=== PATIENT | female | born 1990 | race Caucasian/White ===

== ENCOUNTER 2022-12-12 20:44 | Outpatient (REF) | payer OTHER, SELFPAY ==
[2022-12-19 16:09] LABS: Age Gdln ACOG Testing Note (.); HPV Aptima Negative (Negative); IGP, Aptima HPV, rfx 16/18,45 Note (.)
== END 2022-12-12 20:45 | disposition home or self-care (01) ==
LOC: LAB 20:44
PROVIDERS: PCP Family Medicine; Visit Provider Obstetrics & Gynecology
DX: Z12.4 Encounter for screening for malignant neoplasm of cervix (principal)
CPT/HCPCS: 87624; G0145

== ENCOUNTER 2023-01-23 07:07 | Outpatient (OUT) | payer OTHER, SELFPAY ==
--- NOTE | 2023-01-23 07:54 | CA_ITS ---
Patient: JAVID TRIPLETT Exam Date: 01/23/2023 : 1990 Gender:F Ordering : EMEKA HERNANDEZ Admission #: [id number] Family : Order #: [id number] CLICK HERE TO VIEW EXAM ECHOCARDIOGRAM REPORT PROCEDURE: CA ECHO DOPPLER COMPLETE INDICATIONS: Neurocardiogenic syncope COMPARISON: None. DESCRIPTION: COMPLETE ECHOCARDIOGRAM Real-time transthoracic echocardiography with 2D, M-mode, spectral and color flow Doppler performed. QUALITY: Technical quality was good. LEFT VENTRICLE: Normal chamber size. No left ventricular hypertrophy. Global left ventricular systolic function is normal. LV EF: Estimated left ventricular ejection fraction is 60-65% DIASTOLIC: Normal diastolic function. ATRIAL SEPTUM: LEFT ATRIUM: Normal chamber size. RIGHT ATRIUM: Normal chamber size. RIGHT VENTRICLE: Normal chamber size. Normal right ventricular systolic function. TRICUSPID VALVE: Normal mobility and thickness. No stenosis with trivial regurgitation. Unable to assess right-sided pressures due to lack of measurable tricuspid regurgitation. MITRAL VALVE: Normal mobility and thickness. No evidence of mitral valve stenosis. There is no mitral annular calcification. Trivial mitral regurgitation. AORTIC VALVE: Normal trileaflet appearance. No visible sclerosis. Normal leaflet mobility. No evidence of aortic valve stenosis. No aortic regurgitation. AORTIC ROOT: Normal diameter and appearance. PULMONIC VALVE: Normal thickness and mobility. No stenosis. Trivial regurgitation. PERICARDIUM: No evidence of pericardial effusion. IVC: Collapses with inspirations. Normal size. PLEURA: CONCLUSION: 1. Normal left ventricular size and systolic function. LVEF is 60 to 65%. 2. Normal right ventricular size and systolic function. 3. No significant valvular dysfunction. 4. No pericardial effusion. Adult Echocardiography Procedure Report Left Ventricle LVEDD (3.7 - 5.6 cm): 4.28 cm LVESD (2.2 - 4.0 cm): 2.63 cm LVIVS thickness (0.6 - 1.2 cm): 1.03 cm LVPW thickness (0.5 - 1.0 cm): 1.09 cm e': 0.15 m/s E - e': 4.40 LVOT Max Gradient: 2.98 mm[Hg], 2.57 mm[Hg] LVOT Area (cm2): 0.83 m/s Peak Velocity (LVOT): 0.86 m/s, 0.80 m/s Mean Velocity (LVOT): 0.58 m/s LVOT Diameter 1.99 cm Left Ventricular Ejection Fraction: 64.31 % Left Atrium LA Volume Index (2D A2C): 22.22 ml/m2 Left Atrium Systolic Dimension: 3.81 cm Mitral Valve MV E to A Ratio: 1.33, 1.52 Mitral Valve A-Wave Peak Velocity: 0.47 m/s Mitral Valve E-Wave Peak Velocity: 0.67 m/s Right Ventricle RV Internal Diastolic Dimension: 3.80 cm Aorta AO Root Diam: 2.62 cm Ascending Ao Diam: 2.46 cm Aortic Valve AoV Area (Peak Naresh): 2.13 cm2, 2.21 cm2 AoV Area (VTI): 2.45 cm2, 2.34 cm2 Peak Velocity(Antegrade Flow): 1.21 m/s Peak Gradient(Antegrade Flow): 5.83 mm[Hg] Mean Velocity(Antegrade Flow): 0.80 m/s Mean Gradient(Antegrade Flow): 2.82 mm[Hg] Velocity Time Integral: 24.37 cm Tricuspid Valve Peak Velocity (Regurgitant Flow): 2.47 m/s, 2.05 m/s Pulmonic Valve Mean Gradient: 2.08 mm[Hg], 2.55 mm[Hg], 2.34 mm[Hg] Mean Velocity: 0.67 m/s, 0.77 m/s, 0.71 m/s Peak Velocity: 1.02 m/s Peak Gradient: 3.87 mm[Hg], 4.13 mm[Hg], 4.39 mm[Hg] Right Atrium Right Atrium Systolic Pressure: 65.10 ml, 65.10 ml Dictated by: Gwyn Agudelo M.D. on 01/23/2023 at 12:42 Approved by: Gwyn Agudelo M.D. on 01/23/2023 at 12:45
== END 2023-01-23 07:08 | disposition home or self-care (01) ==
LOC: CARD 07:09
PROVIDERS: PCP Family Medicine; Visit Provider Nurse Practitioner
DX: R55 Syncope and collapse (principal)
CPT/HCPCS: 93306

== ENCOUNTER 2023-05-29 09:40 | Outpatient (OUT) | payer BC, SELFPAY ==
[2023-05-29 10:39] LABS: Basophils Absolute Auto 0.1 10^3/uL (0.0-0.1); Basophils Percent Auto 0.8 % (0.2-2.0); Eosinophils Absolute Auto 0.2 10^3/uL (0.0-0.7); Eosinophils Percent Auto 3.7 % (0.9-7.0); Hematocrit 42.6 % (36.0-48.0); Hemoglobin 13.7 g/dL (12.0-16.0); Immature Granulocytes Abs Auto 0.01 10^3/uL (0.00-0.03); Immature Granulocytes Pct Auto 0.2 % (0.0-0.5); Lymphocytes Absolute Auto 2.4 10^3/uL (1.2-3.8); Lymphocytes Percent Auto 37.5 % (20.5-60.0); Mean Corpuscular HGB Conc 32.2 g/dL (29.9-35.2); Mean Corpuscular Hemoglobin 27.3 pg (26.7-34.0); Mean Corpuscular Volume 84.9 fL (81.0-99.0); Mean Platelet Volume 9.8 fL (9.5-13.5); Monocytes Absolute Auto 0.3 10^3/uL (0.3-0.8); Monocytes Percent Auto 5.3 % (1.7-12.0); Neutrophils Absolute Auto 3.4 10^3/uL (1.4-6.5); Neutrophils Percent Auto 52.5 % (43.0-75.0); Platelet Count 451 10^3/uL (150-450); Red Blood Count 5.02 10^6/uL (4.20-5.40); Red Cell Distribution Width 13.4 % (11.0-15.0); White Blood Count 6.4 10^3/uL (4.0-11.0)
[2023-05-29 12:04] LABS: Alanine Aminotransferase 39 U/L (14-59); Albumin Globulin Ratio 0.9; Albumin Level 3.7 g/dL (3.4-5.0); Alkaline Phosphatase 90 U/L (46-116); Anion Gap 12.1; Aspartate Amino Transferase 29 U/L (15-37); BUN Creatinine Ratio 18.1; Bilirubin Total 0.5 mg/dL (0.2-1.0); Calcium 9.1 mg/dL (8.5-10.1); Carbon Dioxide 25.9 mmol/L (21.0-32.0); Chloride 104 mmol/L (98-107); Estimated GFR (African America >60 (>=60); Estimated GFR (Non-African Ame >60 (>=60); Free T3 3.19 pg/mL (2.18-3.98); Globulin 4.1 g/dL; Glucose 103 mg/dL (74-106); HDL Cholesterol 39 mg/dL (40-60); Sodium 138 mmol/L (136-145); Thyroid Stimulating Hormone 1.432 uIU/mL (0.358-3.740); Total Protein 7.8 g/dL (6.4-8.2); Triglycerides 294 mg/dL (<=150); VLDL CHOLESTEROL 58.8 mg/dL
[2023-05-29 12:06] LABS: Estimated Average Glucose 114 mg/dL; Glycohemoglobin A1C 5.6 % (4.5-6.2)
[2023-05-29 12:37] LABS: Free T4 0.89 ng/dL (0.76-1.46)
[2023-05-29 13:23] LABS: Cholesterol 204 mg/dL (<=200)
[2023-05-29 13:25] LABS: Chol HDL Ratio 5.2
== END 2023-05-29 09:41 | disposition home or self-care (01) ==
LOC: LAB 09:42
PROVIDERS: PCP Family Medicine; Visit Provider Family Medicine
DX: Z00.00 Encounter for general adult medical examination without abnormal findings (principal)
CPT/HCPCS: 36415; 80053; 80061; 82306; 82607; 82746; 83036; 84439; 84443; 84481; 85025

== ENCOUNTER 2023-12-03 14:14 | Outpatient (OUT) | payer BC, SELFPAY | END 2023-12-03 14:15 | disposition home or self-care (01) | LOC: PST 14:14 | PROVIDERS: PCP Family Medicine; Visit Provider Surgery | DX: Z01.818 Encounter for other preprocedural examination (principal); Z12.11 Encounter for screening for malignant neoplasm of colon ==

== ENCOUNTER 2023-12-11 06:50 | Day surgery (SDC) | payer BC, SELFPAY ==
--- OUTSIDE RECORDS SUMMARY | 2023-12-11 06:53 | XMS_ITS | CCD ---
Author Organization [facility] Care Team Providers Care Casing Tier Name Role Phone BECK, DR ADEBAYO Oropeza Primary Care Unavailable SOLARES, DR ADEBAYO Oropeza Consulting Unavailable SOLARES, DR ADEBAYO Oropeza Attending Unavailable SOLARES, DR ADEBAYO Oropeza Admitting Unavailable Zieber, DR Ge Consulting Unavailable GLATZ, LOUIS Block Consulting Unavailable SOLARES, DR ADEBAYO Oropeza Primary Care Unavailable SOLARES, DR ADEBAYO Oropeza Consulting Unavailable SOLARES, DR ADEBAYO Oropeza Attending Unavailable SOLARES, DR ADEBAYO Oropeza Admitting Unavailable Sak DO, Adebayo Rodas Attending Unavailable Solares, Adebayo Primary Care Unavailable Jaret PM TECHNICIAN-HEADING MAKER, Isabella Sepulveda Attending Unavaila ble Solares, Adebayo Primary Care Unavailable Jaret PM TECHNICIAN-HEADING MAKER, Isabella Sepulveda Attending Unavaila ble Solares, Adebayo Primary Care Unavailable Solares, Adebayo Consulting Unavailable Solares, Adebayo Referring Unavailable BARAZIEMEKA Referring Unavailable TESSY JEFFREY Attending Unavailable CHALINO, VIRAL Referring Unavailable PAOLAGRAEME Attending Unavailable CHATAYOSEPH Attending Unavailable CHALINO, VIRAL Referring Unavailable CHALINO, VIRAL Referring Unavailable CHALINO, VIRAL Referring Unavailable CHALINO, VIRAL Referring Unavailable CHATAYOSEPH Referring Unavailable CHATAYOSEPH Admitting Unavailable CHATAYOSEPH Attending Unavailable Allergies Allergy Classification Reported Allergen(s) Allergy Type Date of Onset Reaction(s) Facility (1 source) No Known Medication Allergies; Translations: [No Known Medication Allergies] Propensity to adverse reactions to drug (disorder) [facility] Repository Problems Active Problems Problem Classification Problem Date Documented Date Episodic/Chronic Cardiac dysrhythmias (7 sources) Palpitations; Translations: [PALPITATIONS] Onset: 11-15-2021 Episodic Headache; including migraine (4 sources) Headache; including migraine; Translations: [HEADACHE UNSPECIFIED] Onset: 12-20-2021 Other circulatory disease (2 sources) Presence of other cardiac implants and grafts; Translations: [Presence of other cardiac implants and grafts] Onset: 09-19-2023 Chronic Residual codes; unclassified (2 sources) Obstructive sleep apnea (adult) (pediatric); Translations: [Obstructive sleep apnea (adult) (pediatric)] Onset: 04-24-2023 Chronic Syncope (3 sources) Syncope and collapse; Translations: [Syncope and collapse] Onset: 11-14-2022 Episodic Unclassified (1 source) Supraventricular tachycardia, unspecified; Translations: [Supraventricular tachycardia, unspecified] Onset: 04-24-2023 Past or Other Problems Problem Classification Problem Date Documented Date Episodic/Chronic Unclassified (1 source) Supraventricular tachycardia, unspecified; Translations: [Supraventricular tachycardia, unspecified] Onset: 04-24-2023 Results Test Name Value Interpretation Reference Range Facility Office Visiton 09-19-2023 Follow-up visit [id number] Javid Prasad 1990 F Date Provider Department Center 09/19/2023 [id number] SUTHERLAND BEBETO [facility] Family History Problem Relation Age of Onset Atrial fibrillation Mother Diabetes Father Kidney disease Father Heart attack Maternal Grandmother Family Status - Relation Status Age at Mother Father Maternal Grandmother Level of Service:50577 PA OFFICE/OUTPATIENT ESTABLISHED MOD MDM 30 MIN Normal [facility] HPon 06-18-2023 [facility] Electrophysiology Consult Note Reason for visit: Palpitations HPI: Javid Prasad is a 32 y.o. year old with past medical history of treadmill only stress test in 2019 which was negative and Holter monitor 1 year ago for complaints of palpitations. Palpitations are associated with tunnel vision, shortness of breath, chest pressure, lightheadedness, near syncope, syncope 10+ years ago. Has been dealing with palpitations/pre-synco pal symptoms since high school. No work up in high school. She was seen by Emeka PONCE and his significant monitor was ordered along with echocardiogram and tilt study She states her episodes occur at rest and completely out of the blue. She cannot correlate it with any postural changes either. She states she will just be sitting down get severely lightheaded and dizzy, will take a few deep breaths and symptoms do get better but then they return 10 to 15 seconds later. She has not had syncopal episodes since she was 19 years old. Event monitor 11/2021 showed sinus bradycardia to sinus tachycardia with sinus arrhythmia. She was noted to have occasional PVC and PACs and had 4 occurrences of PSVT up to 6 beats and one occurrence of nonsustained VT consisting of 3 beats. In the past she was placed on metoprolol and did not notice a change in symptoms. She has checked her pulse during moments of symptoms and has only noticed a heart rate of 90-100. And when she takes her blood pressure during these events its never been low she states usually around 110 systolic. she has been having plans of wanting become but wanted to have things evaluated first before attempting for . Episode of tachycardia not related to activity: PMH: sycope PFH: mom - afib, dad unclear and is being worked up for cardiac issues Social: does not smoke, drink, vape, or use drugs PMH: Medical History Past Medical History: Diagnosis Date Palpitations PSH: Surgical History No past surgical history on file. SH: Social Determinants of Health Tobacco Use: Low Risk (11/14/2022) Patient History Smoking Tobacco Use: Never Smokeless Tobacco Use: Never Passive Exposure: Not on file Alcohol Use: Not on file Financial Resource Strain: Not on file Food Insecurity: Not on file Transportation Needs: Not on file Physical Activity: Not on file Stress: Not on file Social Connections: Not on file Intimate Partner Violence: Not on file Depression: Not on file Housing Stability: Not on file Utilities: Not on file Allergies: No Known Allergies Weight: 122kg Visit Vitals BP 130/76 (BP Location: Left arm, Patient Position: Sitting) Pulse (!) 114 Ht 1.829 m (6') Wt 122 kg (268 lb) SpO2 97% BMI 36.35 kg/m??? Smoking Status Never BSA 2.49 m??? Meds: No current outpatient medications on file prior to visit. No current facility-administered medications on file prior to visit. ROS: Review of Systems Cardiovascular: Positive for chest pain, irregular heartbeat, near-syncope and palpitations. Respiratory: Positive for shortness of breath. Neurological: Positive for light-headedness. All other systems reviewed and are negative. Physical Exam: Constitutional General Appearance: well-nourished, well-developed, appears stated age Level of Distress: comfortable Psychiatric Mental Status: alert, normal affect Orientation: oriented to time, place, and person Insight: good judgement Eyes Lids and Conjunctivae: non-injected, no xanthelasma ENMT Ears: no lesions on external ear Nose: no lesions on external nose Oropharynx: no cyanosis, no pallor Neck Neck: supple, trachea midline Carotid Arteries: bilateral normal upstroke, no bruits Jugular Veins: normal jugular venous pressure Thyroid: not enlarged Lungs Respiratory Effort: unlabored Chest Exam: normal curvature, no thoracic deformity Auscultation: clear, no wheezing, no rales, no rhonchi Cardiovascular Rate And Rhythm: regular Heart Sounds: normal S1, normal s2, no gallop Systolic Murmur: not heard Diastolic Murmur: not heard Extremities: no cyanosis, no edema, no peripheral signs of emboli Peripheral Pulses Radial Pulse: normal Abdomen Inspection and Palpation: soft, non distended, no bruit, non tender Musculoskeletal Inspection: no joint swelling Neurologic Gait: normal gait Skin Inspection and Palpation: warm and dry Nails: no clubbing Labs: @LABRESULTS@ No results found for: CHOLESTEROL TOTAL , HDL , LDL CALC , LDL DIRECT , TRIGLYCERIDES , TSH , T3 TOTAL , T4 TOTAL , THYROID PEROXIDASE AB , BNP EKG: No results found for this or any previous visit (from the past 4464 hour(s)). Echo: Stress test: 2019 treadmill stress only Coronary angiogram: @CATH@ Diagnostic Imaging: Event Monitor 11/2021 Event monitor: 11/14/22 Tilt: Assessment and Plan: Palpitations - 30-day event monitor did not reveal any episodes of symptoms t (more content not included)... Normal [facility] NURSNOTEon 06-18-2023 NURSNOTE RN educated pt on d/ c instructions. RN encouraged pt to voice any questions or concerns. Pt verbalizes no questions or concerns at this time. Pt was wheeled off of unit with all of belongings. Normal [facility] Office Visiton 04-24-2023 Follow-up visit [id number] Javid Prasad 1990 F Date Provider Department Center 04/24/2023 Maira G-YOSEPH MCINTOSH BEBETO [facility] Family History Problem Relation Age of Onset Atrial fibrillation Mother Diabetes Father Kidney disease Father Heart attack Maternal Grandmother Family Status - Relation Status Age at Mother Father Maternal Grandmother Level of Service:39988 PA OFFICE/OUTPATIENT NEW MODERATE MDM 45 MINUTES Normal [facility] 36on 12-13-2022 36 Positive tilt table, if chata has availabilty can we set her up to establish.....if I have something sooner than 01/02 can we add her in please if she is able, if she is ok to wait 01/02 that is ok as well Normal [facility] Sleep Medicine Consultationo n 05-16-2022 Sleep Medicine Consultation Chief Complaint Confusional arousals and sleepwalking History of Present Illness The patient is a 31-year-old female who presents with a long history of confusional arousals. Its onset began in her youth. At the present time she experiences confusional arousals 2-3 times a week which include vocalization and being very active. She is and her arousals are becoming disruptive during sleep for both herself and her . She has no recollection of her activity in the morning. At least 2 times a month the confusional arousals are associated with sleepwalking. She has never injured herself or her . Her sleep environment is safe. She also recalls very vivid dreams. However, her activity during sleep is not necessarily associated with those dreams. Her is not able to awaken her from her confusional arousals to consciousness and she has no recollection the next day of dreaming in association with her activity. Sleep-wake schedule: She retires at 9:30 PM, accomplishes sleep in a timely fashion, followed by 1 conscious awakening. She is up for the day at 5:30 AM 7 days a week. Her bedroom is comfortable as is her bed. There is a dog that sleeps on the floor. She shares her bedroom and bed with her . Apparently she does experience positional snoring. It is unclear as to whether her has witnessed pauses of her snoring and breathing. She has never woken up gasping for air, with a dry mouth, or with headaches. Her legs and not restless and do not affect her ability to initiate or maintain sleep. Sleep is not interrupted by nocturia. She can be sleepy during the day. [place] Sleepiness Scale score: 12. She is sleepy with sedentary activity and can accomplish a nap given the opportunity. She has never been involved in a motor vehicle accident due to sleepiness, however, she may have been at risk for a near miss. She definitely takes precautions when she drives, and she does not drive if she is sleepy. She has experienced driving to a familiar location and not recalling all the details of the drive when she arrived to her destination. She has experienced an episode of sleep-related paralysis in the remote past, however, there are no symptoms consistent with hypnopompic hallucinations or cataplexy. Review of Systems Constitutional Symptoms: None Eyes: Without a recent change in visual acuity Ears: Without hearing loss Nose/Sinuses/Throat: Without complaints of vocal hoarseness, or nasal or sinus congestion Cardiovascular: Without angina or palpitations Respiratory: Without cough, wheezing, sputum, or dyspnea Gastrointestinal: Appetite is good, bowel habits are regular. Occasional GE reflux. Genitourinary: Without dysuria or hematuria Musculoskeletal: Without arthralgias or myalgias Neurologic: Light sensitivity headaches Endocrine: Without polydipsia or polyuria Hematologic: Without a history of bleeding or anemia Immunologic: Without chronic or recurrent infection Dermatologic: Without complaints of rash or skin irritations Psychiatric: Well-adjusted at this stage of life Physical Exam Vitals & Measurements HR: 84 (Peripheral) RR: 20 BP: 128/82 SpO2: 97 HT: 180.5 cm WT: 125.6 kg WT: 125.6 kg (Dosing) BMI: 38.55 Well-developed, well-nourished, 31-year-old female who is not hypersomnolent during this interview or exam. Head: Normocephalic Eyes: PERRLA Ears: Symmetrical, canals patent, TMs intact Nose: Symmetrical, nares patent, nasal passages clear Throat: Elongated uvula, narrow posterior arch, and a large dorsum of her tongue. Mallampati class III, Gutiérrez class III. Neck: Symmetrical, supple, without adenopathy or thyroid enlargement Heart: Regular rate and rhythm Lungs: Clear to auscultation without crackles, rhonchi or wheezing Abdomen: Appears benign Extremities: Without cyanosis, clubbing, or significant edema Neurologic: Without lateralizing signs as the patient climbed on and off the exam table Musculoskeletal: Endo/mesomorphic Dermatologic: Without rashes on exposed surfaces Assessment/Plan 1. Parasomnia The patient describes parasomnias that appear to be non-REM in nature. She experiences confusional arousals 2-3 times a week, and 2-3 times a month these are associated with episodes of sleepwalking. Her sleep environment is safe. She indicates that she has experienced these parasomnia phenomena throughout most of her life. They are becoming problematic since she became . Whether this represents a primary problem or is secondary to another sleep disorder or other medical condition is the question. She does have risk factors for sleep disordered breathing and will be first evaluated for obstructive sleep apnea. If there is no evidence of obstructive sleep apnea then her parasomnias will be looked at more closely and consideration will be given to the initiation of clonazepam at bedtime as a trial. 2. CAROLA (obstructive sleep apnea) Clinical diagnosis Based on her clinical (more content not included)... Normal [facility] CT HEAD WO CONon 12-21-2021 CT HEAD WO CON EXAMINATION: CT HEAD WO CON HISTORY: Headache ; chronic ringing in ears, dizziness, visual changes COMPARISON: No relevant comparison available. TECHNIQUE: Axial CT images were obtained without IV contrast. Dose reduction techniques were achieved by using automated exposure control and/or adjustment of mA and/or kV according to patient size and/or use of iterative reconstruction technique. FINDINGS: BRAIN: No edema, hemorrhage, mass, acute infarction, or inappropriate atrophy. CSF SPACES: No hydrocephalus, subarachnoid hemorrhage, or mass. Appropriate for age. SKULL: No fracture, mass, or other significant visible lesion. SINUSES: No significant mucosal thickening or fluid on the limited views. ORBITS: No appreciable abnormality on the limited views. OTHER: Negative IMPRESSION: 1. Normal CT appearance of the brain. 2. No CT evidence of acute or chronic sinusitis. Electronically authenticated by: CARLOS GALE Date: 2021-12-21 07:15 Normal [facility] CT TEMPORAL BONES WO CONon 0 12-21-2021 CT TEMPORAL BONES WO CON EXAMINATION: CT TEMPORAL BONES WO CON HISTORY: Headache, dizziness. Tinnitus. COMPARISON: None. TECHNIQUE: Noncontrast axial CT images were obtained through the temporal bones. Reconstructions obtained in the coronal plane. Dose reduction techniques were achieved by using automated exposure control and/or adjustment of mA and/or kV according to patient size and/or use of iterative reconstruction technique. FINDINGS: On the right, external auditory canals normal. Tympanic membrane normal. Middle ear cavity and mastoid air cells clear. The ossicles are normal. Scutum is intact. Tegmen tympani intact. The cochlea, vestibule, and semicircular canals normal. Facial nerve canal normal. No semicircular canal dehiscence. Internal auditory canal normal in size. On the left, external auditory canals normal. Tympanic membrane normal. Middle ear cavity and mastoid air cells clear. The ossicles are normal. Scutum is intact. Tegmen tympani intact. The cochlea, vestibule, and semicircular canals normal. Facial nerve canal normal. No semicircular canal dehiscence. Internal auditory canal normal in size. The skull base foramen are normal. Visualized paranasal sinuses clear. Band Presser spaces normal. Orbital contents unremarkable. Posterior fossa structures normal. IMPRESSION: Normal CT of the temporal bones. Electronically authenticated by: LOUIS BRAY Date: 2021-12-21 16:11 Normal [facility] Comprehensive Metabolic Empo n 05-10-2021 Albumin [Mass/Vol] 4.1 g/dL Normal 3.2-5.5 [facility] Comment on above: Performed By: #### E BS LIPID, EBS A1C, EBS CMP #### [facility] [address] Albumin/Globulin [Mass ratio] 1.3 {ratio} Normal [facility] Comment on above: Performed By: #### E BS LIPID, EBS A1C, EBS CMP #### [facility] [address] [place] [id number] [facility] ALP [Catalytic activity/Vol] 77 U/L Normal 32-92 [facility] Comment on above: Performed By: #### E BS LIPID, EBS A1C, EBS CMP #### [facility] [address] [place] [id number] [place] ALT [Catalytic activity/Vol] 19 U/L Normal 10-60 [facility] Comment on above: Performed By: #### E BS LIPID, EBS A1C, EBS CMP #### [facility] [address] [place] [id number] [place] AST [Catalytic activity/Vol] 18 U/L Normal 10-42 [facility] Comment on above: Performed By: #### E BS LIPID, EBS A1C, EBS CMP #### [facility] [address] [place] [id number] [place] Bilirubin [Mass/Vol] 0.3 mg/dL Normal 0.3-1.2 [facility] Comment on above: Performed By: #### E BS LIPID, EBS A1C, EBS CMP #### [facility] [address] Calcium [Mass/Vol] 9.2 mg/dL Normal 8.2-10.2 [facility] Comment on above: Performed By: #### E BS LIPID, EBS A1C, EBS CMP #### [address] Chloride [Moles/Vol] 104 mmol/L Normal 95-114 [facility] Comment on above: Performed By: #### E BS LIPID, EBS A1C, EBS CMP #### [address] CO2 [Moles/Vol] 24.1 mmol/L Normal 22.0-30.0 [facility] Comment on above: Performed By: #### E BS LIPID, EBS A1C, EBS CMP #### [address] Creatinine [Mass/Vol] 0.69 mg/dL Normal 0.44-1.03 [facility] Comment on above: Performed By: #### E BS LIPID, EBS A1C, EBS CMP #### [address] Estimated GFR ( Liz > 60 [facility] Comment on above: Result Comment: GFR estimated reference range: According to KDOQI guidelines, <60 ml/min/1.73m2 is sufficient to diagnose a patient with chronic kidney disease. Performed By: #### E BS LIPID, EBS A1C, EBS CMP #### [facility] [address] [place] [address] Estimated GFR (Non- Am > 60 [facility] Comment on above: Performed By: #### E BS LIPID, EBS A1C, EBS CMP #### [facility] [address] [place] [address] [place] Globulin (S) [Mass/Vol] 3.1 g/dL Normal [facility] Comment on above: Performed By: #### E BS LIPID, EBS A1C, EBS CMP #### [facility] [address] [place] [address] [place] Glucose [Mass/Vol] 106 mg/dL High 70-100 [facility] Comment on above: Result Comment: ADA recommended reference range Performed By: #### E BS LIPID, EBS A1C, EBS CMP #### [facility] [address] [place] [address] [place] Potassium [Moles/Vol] 4.0 mmol/L Normal 3.5-5.1 [facility] Comment on above: Performed By: #### E BS LIPID, EBS A1C, EBS CMP #### [facility] [address] Protein [Mass/Vol] 7.2 g/dL Normal 6.1-7.9 [facility] Comment on above: Performed By: #### E BS LIPID, EBS A1C, EBS CMP #### [facility] [address] [place] [address] [place] Sodium [Moles/Vol] 137 mmol/L Normal 136-146 [facility] Comment on above: Performed By: #### E BS LIPID, EBS A1C, EBS CMP #### [facility] [address] [place] [address] [place] Urea nitrogen [Mass/Vol] 10 mg/dL Normal 9-23 [facility] Comment on above: Performed By: #### E BS LIPID, EBS A1C, EBS CMP #### [facility] [address] EBS A1C with Estimated Ave Primo hayes 05-10-2021 Glucose [Mass/Vol] 111 mg/dL Normal [facility] Comment on above: Result Comment: PERF ORMED BY: [place] [address] PATHOLOGIST HOUSE MOVER SUPERVISOR JERRY RAMSEY M.D. Performed By: #### E BS LIPID, EBS A1C, EBS CMP #### [facility] [address] [place] [address] [place] HbA1c (Bld) [Mass fraction] 5.5 % Normal 4.3-5.6 [facility] Comment on above: Result Comment: Incr eased risk for diabetes: 5.7 - 6.4 diabetes: >6.4 glycemic control for adults with diabetes: <7.0 Performed By: #### E BS LIPID, EBS A1C, EBS CMP #### [facility] [address] [place] [id number] [facility] Lipid Profileon 05-10-2021 Cholesterol [Mass/Vol] 202 mg/dL High 140-200 [facility] Comment on above: Result Comment: Chol less than 200 mg/dl low risk Chol 201-239 mg/dl borderline risk Chol 240 mg/dl and greater high risk Performed By: #### E BS LIPID, EBS A1C, EBS CMP #### [facility] [address] [place] [address] [place] Cholesterol in HDL [Mass/Vol] 37 mg/dL Normal 35-85 [facility] Comment on above: Result Comment: HDL CHOL ATP-III CLASSIFICATION Cardiovascular Risk HDL > or equal to 60 mg/dL LOW HDL < 40 mg/dL HIGH Performed By: #### E BS LIPID, EBS A1C, EBS CMP #### [facility] [address] [place] [address] [place] Cholesterol.total/C holesterol in HDL [Mass ratio] 5.5 {ratio} Normal <5.0 [facility] Comment on above: Result Comment: PERF ORMED BY: [place] [address] PATHOLOGIST HOUSE MOVER SUPERVISOR JERRY RAMSEY M.D. Performed By: #### E BS LIPID, EBS A1C, EBS CMP #### [facility] [address] [place] [id number] [place] LDL Cholesterol,Calcula jasbir 125 mg/dL High 0-100 [facility] Comment on above: Result Comment: LDL ATP III CLASSIFICATION LDL less than 100 mg/dL Optimal LDL 100-129 mg/dL Near or above optimal LDL 130-159 mg/dL Borderline high LDL 160-189 mg/dL High LDL greater than 189 mg/dL Very high Performed By: #### E BS LIPID, EBS A1C, EBS CMP #### [facility] [address] [place] [id number] [place] Triglyceride w/Reflex 199 mg/dL High 35-149 [facility] Comment on above: Result Comment: TRIG ATP III CLASSIFICATION TRIG less than 150 mg/dL Normal TRIG 150-199 mg/dL Borderline high TRIG 200-500 mg/dL High TRIG greater than 500 mg/dL Very high Standard traceable to the Center for Disease Conrtrol and Prevention (CDC) test method. Performed By: #### E BS LIPID, EBS A1C, EBS CMP #### [facility] [address] [place] [id number] [facility] VLDL CHOLESTEROL 39 mg/dL Normal [facility] Comment on above: Performed By: #### E BS LIPID, EBS A1C, EBS CMP #### [facility] [address] [place] [id number] [facility] Encounters Encounter Date Encounter Type Care Provider Facility Start: 11-20-2023 ambulatory [facility] Start: 11-19-2023 End: 11-19-2023 ambulatory TESSY JEFFREY Not Available Start: 10-10-2023 ambulatory [facility] Start: 10-02-2023 ambulatory [facility] Start: 09-19-2023 ambulatory [facility] Start: 06-18-2023 End: 06-18-2023 ambulatory [facility] Start: 04-24-2023 End: 04-24-2023 ambulatory [facility] Start: 12-12-2022 End: 12-15-2022 ambulatory EMEKA HERNANDEZ [facility] Start: 06-19-2022 End: 06-20-2022 ambulatory Isabella Raygoza PM TECHNICIAN-HEADING MAKER Facility:[facility] Start: 05-30-2022 End: 05-31-2022 ambulatory Adebayo Latham DO Facility:[facility] Start: 05-16-2022 End: 05-17-2022 ambulatory Isabella Raygoza PM TECHNICIAN-HEADING MAKER [facility] Start: 12-20-2021 End: 12-21-[address] ADEBAYO SOLARES Facility:[facility] Start: 11-15-2021 End: 11-16-[address] ADEBAYO SOLARES Facility:[facility] Payers Date Payer Category Payer Unknown [id number] 2022 Unknown 2021 Self-pay 2019 Unknown [id number] 1991 Unknown [id number] 2.16.84 [id number] 1991 Unknown [id number] 2.16.84 [id number] 1991 Unknown [id number] 2.16. [id number] 1991 Unknown [id number] 2.16. [id number] 1991 Unknown [id number] 2.16. [id number] 1991 Unknown [id number] 2.16.8 [id number] 1991 Unknown [id number] 2.16.84 [id number] 1959 Unknown [id number] Progress note 09-19-2023 Note Date & Type Note Facility 09-19-2023 Note [facility] Note Reason for cardiology consult: Patient here for 3 mo follow up post loop insertion. HPI: Javid Prasad is a 32 y.o. female with long history of palpitations associated with the dizziness, usually occur while she is sitting and typing, she had couple episodes of syncope as a result of that when she was in her 20s. The palpitation gets better if she takes a deep breath and hold it. It has been going on for about 10 years. She had mono infection when she was 16 years old, her symptoms started when she was 19 or 21. She barely drinks any caffeine or alcohol. She drinks about 10-12 bottles of water a day. She wears compression stockings at work. She exercises regularly running about 1 hour 3 times a week and also do lifting. None of the above helped to reduce the symptoms. She was diagnosed with mild sleep apnea however she could not tolerate CPAP. Finally she had a loop recorder implant 06/18/2023. I reviewed the loop recorder interrogations since then and she was mostly in sinus rhythm with only few episodes of sinus tachycardia. No other arrhythmias. She tried beta-shyanne in the past but could not help. She denies any chest pain at rest or with exertion. She admits occasional shortness of breath with overexertion. She denies orthopnea or paroxysmal nocturnal dyspnea or legs edema Cardiology ROS: All systems were reviewed and they were negative except for the positive findings noted above in the history Past Medical History She has a past medical history of Palpitations. Surgical History She has no past surgical history on file. Social History She reports that she has never smoked. She has never used smokeless tobacco. She reports that she does not drink alcohol. No history on file for drug use. Family History Family History Problem Relation Name Age of Onset Atrial fibrillation Mother Diabetes Father Kidney disease Father Heart attack Maternal Grandmother Allergies Patient has no known allergies. Medications No current outpatient medications on file. Last Recorded Vitals Visit Vitals Smoking Status Never Physical Examination: GENERAL: alert and oriented x3, well developed, in no acute distress. HEAD: atraumatic, normocephalic. EYES: NEVIN, EOMI. NECK: trachea midline, no JVD present, no carotid bruits present. CARDIAC: S1, S2 present. RRR. No murmur, rubs, or gallops. RESPIRATORY: CTAB, no increased effort of breathing, no rales, rhonchi, or wheezing. ABDOMEN: soft, nontender, nondistended. EXTREMITIES: no lower extremity edema, peripheral pulses are 2+ bilaterally. No rash/skin discoloration present. NEURO: strength/sensation equal and symmetric in bilateral upper and lower extremities. PSYCH: appropriate mood, affect, and judgement. Labs: 05/29/2023 White blood count 6.4, hemoglobin 13.7, hematocrit 42.6, platelets 451 Sodium 138, potassium 4, BUN 13, creatinine 0.72, GFR above 60, glucose 103, calcium 9.1 Total bilirubin 0.5, AST 29, ALT 39, alk phos 90, Triglyceride 294, cholesterol 204, LDL 107, HDL 39, Vitamin D 19.6 TSH 1.432, free T4 0.89, free T33.19 Last Images: Tilt Table test 12/13/2022 Study Conclusions: Abnormal head upright tilt study. The patient's heart rate, blood pressure response and symptoms were most consistent with Neurocardiogenic dysfunction/Orthostatic Intolerance. Combined with vigilant maintenance of euvolemia and maintaining a moderate salt intake, pharmacologic treatment with Florinef, Midodrine, and/or Serotonin Selective Reuptake Inhibitors (SSRI) such as Escitalopram among other treatments have shown some effectiveness in the treatment of this condition 30-day event monitor 11/14/2022 No A-fib or SVT No PVCs Symptoms matched with sinus rhythm and sinus tachycardia Event Monitor 11/2021 Echo 01/23/2023 Electrophysiology procedure 06/18/2023 INDICATIONS FOR PROCEDURE: 1. SVT/AF surveillance PROCEDURES PERFORMED: 1. LOOP implant Treadmill stress test 02/26/2020 Assessment and Plan: Symptoms of palpitation associated with dizziness and occasional syncope, most likely representing POTS or inappropriate sinus tachycardia S/p loop recorder implant on 06/18/2023. I reviewed the interrogation since implant , the predominant rhythm is sinus rhythm with occasions of sinus tachycardia, no other arrhythmia. Mild obstructive sleep apnea, she could not tolerate CPAP Obesity, BMI 37.84 kg/m??? Vitamin D deficiency GERD Plan: Continue current management with avoiding caffeine and alcohol and increasing fluid intake and adding salt to diet Continue exercise regimen Continue to wear compression stocking during the daytime I will check a.m. cortisol level which never been checked before She was advised to discuss with her PCP vitamin D replacement Follow-up in 3 months Graeme Sutherland MD, [facility] Procedure note 06-18-2023 Note Date & Type Note Facility 06-18-2023 Note LOOP IMPLANT PROCEDU RE NOTE DATE OF PROCEDURE: 06/18/23 PERFORMING PHYSICIAN: Dr. Yoseph Mcintosh STORE MGR: [facility] INDICATIONS FOR PROCEDURE: 1. SVT/AF surveillance CONSENT: Patient LOCATION: EP lab PROCEDURAL SEDATION: None FLUOROSCOPY TIME: 0min PREPARATION: Preoperative antibiotics was administered. EBL: 5cc SPECIMEN REMOVED: None PROCEDURES PERFORMED: 1. LOOP implant PROCEDURE NOTE: Patient was brought to the EP lab in the post absorptive state. A procedural pause was performed verifying the patient, the procedure. Sterile prep and drape were performed over the left precordium and anesthesia with 1% lidocaine was followed by a small incision was made in the 3rd intercostal space near the sternum on the left using the [employer] tool. The loop recorder was then injected subcutaneously and noted to have good sensing parameters. Technical details of the device as noted below. The skin was then closed with 3-0 absorbable monofilament suture and glue applied to hold the edges together. Tegaderm was applied to cover the wound. The patient appeared to tolerate the procedure well and was returned to the room in stable condition. No complications were immediately observed. Sensin.32mV. IMPRESSION: Successful placement of LOOP implant with excellent sensing parameters. COMPLICATIONS: None RECOMMENDATIONS: 1. Occlusive dressing to be changed after 7 days. 2. Do not wet the incision. Yoseph Mcintosh MD Cardiac Electrophysiology. [facility] Progress note 04-24-2023 Note Date & Type Note Facility 04-24-2023 Note Try to bring the berhane nt monitor [facility] Consult Note Reason for visit: Palpitations HPI: Javid Prasad is a 32 y.o. year old with past medical history of treadmill only stress test in 2019 which was negative and Holter monitor 1 year ago for complaints of palpitations. Palpitations are associated with tunnel vision, shortness of breath, chest pressure, lightheadedness, near syncope, syncope 10+ years ago. Has been dealing with palpitations/pre-syncopal symptoms since high school. No work up in high school. She was seen by Emeka PONCE and his significant monitor was ordered along with echocardiogram and tilt study She states her episodes occur at rest and completely out of the blue. She cannot correlate it with any postural changes either. She states she will just be sitting down get severely lightheaded and dizzy, will take a few deep breaths and symptoms do get better but then they return 10 to 15 seconds later. She has not had syncopal episodes since she was 19 years old. Event monitor 11/2021 showed sinus bradycardia to sinus tachycardia with sinus arrhythmia. She was noted to have occasional PVC and PACs and had 4 occurrences of PSVT up to 6 beats and one occurrence of nonsustained VT consisting of 3 beats. In the past she was placed on metoprolol and did not notice a change in symptoms. She has checked her pulse during moments of symptoms and has only noticed a heart rate of 90-100. And when she takes her blood pressure during these events its never been low she states usually around 110 systolic. she has been having plans of wanting become but wanted to have things evaluated first before attempting for . Episode of tachycardia not related to activity: PMH: sycope PFH: mom - afib, dad unclear and is being worked up for cardiac issues Social: does not smoke, drink, vape, or use drugs PMH: Past Medical History: Diagnosis Date Palpitations PSH: No past surgical history on file. SH: Social Determinants of Health Tobacco Use: Low Risk (11/14/2022) Patient History Smoking Tobacco Use: Never Smokeless Tobacco Use: Never Passive Exposure: Not on file Alcohol Use: Not on file Financial Resource Strain: Not on file Food Insecurity: Not on file Transportation Needs: Not on file Physical Activity: Not on file Stress: Not on file Social Connections: Not on file Intimate Partner Violence: Not on file Depression: Not on file Housing Stability: Not on file Utilities: Not on file Allergies: No Known Allergies Weight: 122kg Visit Vitals BP 130/76 (BP Location: Left arm, Patient Position: Sitting) Pulse (!) 114 Ht 1.829 m (6') Wt 122 kg (268 lb) SpO2 97% BMI 36.35 kg/m??? Smoking Status Never BSA 2.49 m??? Meds: No current outpatient medications on file prior to visit. No current facility-administered medications on file prior to visit. ROS: Review of Systems Cardiovascular: Positive for chest pain, irregular heartbeat, near-syncope and palpitations. Respiratory: Positive for shortness of breath. Neurological: Positive for light-headedness. All other systems reviewed and are negative. Physical Exam: Constitutional General Appearance: well-nourished, well-developed, appears stated age Level of Distress: comfortable Psychiatric Mental Status: alert, normal affect Orientation: oriented to time, place, and person Insight: good judgement Eyes Lids and Conjunctivae: non-injected, no xanthelasma ENMT Ears: no lesions on external ear Nose: no lesions on external nose Oropharynx: no cyanosis, no pallor Neck Neck: supple, trachea midline Carotid Arteries: bilateral normal upstroke, no bruits Jugular Veins: normal jugular venous pressure Thyroid: not enlarged Lungs Respiratory Effort: unlabored Chest Exam: normal curvature, no thoracic deformity Auscultation: clear, no wheezing, no rales, no rhonchi Cardiovascular Rate And Rhythm: regular Heart Sounds: normal S1, normal s2, no gallop Systolic Murmur: not heard Diastolic Murmur: not heard Extremities: no cyanosis, no edema, no peripheral signs of emboli Peripheral Pulses Radial Pulse: normal Abdomen Inspection and Palpation: soft, non distended, no bruit, non tender Musculoskeletal Inspection: no joint swelling Neurologic Gait: normal gait Skin Inspection and Palpation: warm and dry Nails: no clubbing Labs: @LABRESULTS@ No results found for: CHOLESTEROL TOTAL , HDL , LDL CALC , LDL DIRECT , TRIGLYCERIDES , TSH , T3 TOTAL , T4 TOTAL , THYROID PEROXIDASE AB , BNP EKG: No results found for this or any previous visit (from the past 4464 hour(s)). Echo: Stress test: 2019 treadmill stress only Coronary angiogram: @CATH@ Diagnostic Imaging: Event Monitor 11/2021 Event monitor: 11/14/22 Tilt: Assessment and Plan: Palpitations - 30-day event monitor did not reveal any episodes of symptoms that co (more content not included)... [facility] Clinical Note 06-19-2022 Note Date & Type Note Facility 06-19-2022 Note This is a Telephone Appointment *This visit was conducted by Telephone with real time communication and interaction. This was performed due to the current COVID-19 pandemic in order to minimize exposure to both patients and staff. The patient verbally consented to treatment. The patient understands their rights, the HIPAA risks and that they will be charged accordingly for the services rendered. Chief Complaint Confusional arousals and sleepwalking History of Present Illness The patient is a 31-year-old female who presents with a long history of confusional arousals. Its onset began in her youth. At the present time she experiences confusional arousals 2-3 times a week which include vocalization and being very active. She is and her arousals are becoming disruptive during sleep for both herself and her . She has no recollection of her activity in the morning. At least 2 times a month the confusional arousals are associated with sleepwalking. She has never injured herself or her . Her sleep environment is safe. She also recalls very vivid dreams. However, her activity during sleep is not necessarily associated with those dreams. Her is not able to awaken her from her confusional arousals to consciousness and she has no recollection the next day of dreaming in association with her activity. [1] [place] Sleepiness Scale score: 12 A home sleep apnea test, 05/30/2022, established a significant degree of CAROLA with an overall AHI: 9.67 (4% AHI: 5.4), oxygen saturation earnest: 89%. Review of Systems Review of systems was compared to initial exam on 05/16/2022 and nothing has changed Physical Exam Vitals & Measurements HT: 180.5 cm WT: 125.6 kg WT: 125.6 kg (Dosing) BMI: 38.55 [2] Taken from initial exam on 05/16/2022: Nose: Symmetrical, nares patent, nasal passages clear Throat: Elongated uvula, narrow posterior arch, and a large dorsum of her tongue. Mallampati class III, Gutiérrez class III. [3] Additional Vitals No qualifying data available. Assessment/Plan 1. CAROLA (obstructive sleep apnea) Mild Based on the patient's EDS, GERD, parasomnias, obesity and degree of sleep apnea, her CAROLA should be treated. Treatment options include oral mandibular advancement device, CPAP therapy, weight loss. Patient states that she will notify us of her treatment decision. Further assessment to follow Time Spent with the Patient Today's visit was performed via telehealth and utilized an audio only connection. 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 Nutrition/Health Caffeine intake amount: 20 oz diet coke 3 times a week. Substance Abuse Denies All Tobacco Never (less than 100 in lifetime) Use:. Family History A-fib: Mother. Diabetes: Father. Stroke: Father. [1] Office Visit Note; Adebayo Latham DO 05/16/2022 14:30 EST [2] Office Visit Note; Adebayo Latham DO 05/16/2022 14:30 EST [3] Office Visit Note; Adebayo Latham DO 05/16/2022 14:30 EST Electronically signed by Isabella Grant 06/19/22 15:39 EST [facility] Summary Purpose Family History No Family History Records FoundNo Family History Records FoundNo Family History Records FoundNo Family History Records FoundNo Family History Records FoundNo Family History Records Found Advance Directives No Advanced Directives Records FoundNo Advanced Directives Records FoundNo Advanced Directives Records FoundNo Advanced Directives Records FoundNo Advanced Directives Records FoundNo Advanced Directives Records Found Additional Source Comments INFORMATION SOURCE (unrecogn ized section and content) DATE CREATED AUTHOR 07/04/2021 [facility] DATE CREATED AUTHOR AUTHOR'S ORGANIZ ATION 2021 [facility] DATE CREATED AUTHOR AUTHOR'S ORGANIZ ATION 06/21/2022 [facility] DATE CREATED AUTHOR AUTHOR'S ORGANIZ ATION 12/15/2022 [facility] DATE CREATED AUTHOR AUTHOR'S ORGANIZ ATION 11/20/2023 [facility] DATE CREATED AUTHOR AUTHOR'S ORGANIZ ATION 11/27/2023 [facility] FOR RECORDS PERTAINING TO PATIENTS WHO ARE OR HAVE BEEN ENROLLED IN A CHEMICAL DEPENDENCY/SUBSTANCEABUSE PROGRAM, SOME INFORMATION MAY BE OMITTED. This clinical summary was aggregated from multiple sources. Caution should be exercised in using it in the provision of clinical care. This summary normalizes information from multiple sources, and as a consequence, information in this document may materially change the coding, format and clinical context of patient data. In addition, data may be omitted in some cases. CLINICAL DECISIONS SHOULD BE BASED ON THE PRIMARY CLINICAL RECORDS. [employer] [facility]. provides no warranty or guarantee of the accuracy or completeness of information in this document.
[2023-12-11 07:19] VITALS: BP 135/87; PULSE 99; TEMP 36.6; O2SAT 98; BMI 37.3
[2023-12-11 07:22] LABS: HCG Qualitative NEGATIVE (NEGATIVE); Internal Control Within Normal Limits
[2023-12-11] MEDS: LACTATED RINGER'S SOLUTION 1,000 ML 50 ML IV (07:29)
--- NOTE | 2023-12-11 07:53 | W.PM.PROCNOT ---
Date of procedure: 12/11/23 Pre-op diagnosis: diagnostic colonoscopy for rectal bleeding Post-op diagnosis: other (mild internal hemorrhoids ) Procedure: Previous colonoscopy: never procedure: diagnostic colonoscopy The patient was given IV conscious sedation.? The patient's SPO2 remained above 90% throughout the procedure. The colonoscope was inserted per rectum and advanced under direct vision to the cecum without difficulty.? The prep was good.? Findings: Terminal ileum os: normal Cecum/Ascending colon: normal Transverse colon: normal Descending/Sigmoid colon: normal Rectum/Anus: examined in normal and retroflexed positions and was normal aside for mild internal hemorrhoids Withdrawal Time was (minutes): 8 The colon was decompressed and the scope was removed.? The patient tolerated the procedure well. Recommendations/Plan: 1.? Lifestyle and dietary modifications as discussed 2.? F/U at age 46 for screening c-scope 3.? Discussed with the family Anesthesia: MAC Surgeon: Aristides Araiza Condition: stable Disposition: PACU
[2023-12-11 08:14] VITALS: BP 112/58; PULSE 96; O2SAT 95
[2023-12-11 08:29] VITALS: BP 105/88; PULSE 91; O2SAT 98
== END 2023-12-11 08:49 | disposition home or self-care (01) ==
PROVIDERS: PCP Family Medicine; Visit Provider Surgery
PROC: (CPT 811; principal; 2023-12-11 08:20)
DX: K62.5 Hemorrhage of anus and rectum (principal); K64.8 Other hemorrhoids; K59.00 Constipation, unspecified
CPT/HCPCS: 45378; 36415; 84703; J2704

== ENCOUNTER 2023-12-13 15:55 | Outpatient (OUT) | payer BC, SELFPAY ==
--- OUTSIDE RECORDS SUMMARY | 2023-12-13 15:58 | XMS_ITS | CCD ---
Author Organization [facility] Care Team Providers Care Mill Feeder Name Role Phone BECK, DR ADEBAYO Oropeza [...] Unavailable Solares, Adebayo Primary Care Unavailable Jaret PICKLING OPERATOR-COMPUTER FIELD TECHNICIAN, Isabella Sepulveda Attending Unavaila ble Solares, Adebayo Primary Care Unavailable Jaret PICKLING OPERATOR-COMPUTER FIELD TECHNICIAN, Isabella Sepulveda Attending Unavaila ble Solares, Adebayo [...] Propensity to adverse reactions to drug (disorder) [facility] Repository Problems Active Problems Problem Classification [...] Range Facility Office Visiton 09-19-2023 Follow-up visit [id number] Javid Prasad 1990 F Date Provider Department Center 09/19/2023 [id number] SUTHERLAND BEBETO [facility] Family History Problem Relation Age of Onset Atrial fibrillation Mother Diabetes Father Kidney disease Father Heart attack Maternal Grandmother Family Status - Relation Status Age at Mother Father Maternal Grandmother Level of Service:45666 [place] OFFICE/OUTPATIENT ESTABLISHED MOD MDM 30 MIN Normal [facility] HPon 06-18-2023 [facility] Electrophysiology Consult Note Reason for visit: [...] symptoms t (more content not included)... Normal [facility] NURSNOTEon 06-18-2023 NURSNOTE RN educated pt on d/ c instructions. RN encouraged pt to voice any questions or concerns. Pt verbalizes no questions or concerns at this time. Pt was wheeled off of unit with all of belongings. Normal [facility] Office Visiton 04-24-2023 Follow-up visit [id number] Javid Prasad 1990 F Date Provider Department Center 04/24/2023 Maria G-YOSEPH MCINTOSH BEBETO [facility] Family History Problem Relation Age of Onset Atrial fibrillation Mother Diabetes Father Kidney disease Father Heart attack Maternal Grandmother Family Status - Relation Status Age at Mother Father Maternal Grandmother Level of Service:47606 MT OFFICE/OUTPATIENT NEW MODERATE MDM 45 MINUTES Normal [facility] 36on 12-13-2022 36 Positive tilt table, if chata has availabilty can we set her up to establish.....if I have something sooner than 01/02 can we add her in please if she is able, if she is ok to wait 01/02 that is ok as well Normal [facility] Sleep Medicine Consultationo n 05-16-2022 Sleep [...] She can be sleepy during the day. [place] Sleepiness Scale score: 12. She is sleepy [...] her clinical (more content not included)... Normal [facility] CT HEAD WO CONon 12-21-2021 CT [...] by: CARLOS GALE Date: 2021-12-21 07:15 Normal [facility] CT TEMPORAL BONES WO CONon 0 12-21-2021 [...] foramen are normal. Visualized paranasal sinuses clear. Diamond Sawer spaces normal. Orbital contents unremarkable. Posterior fossa structures normal. IMPRESSION: Normal CT of the temporal bones. Electronically authenticated by: LOUIS BRAY Date: 2021-12-21 16:11 Normal [facility] Comprehensive Metabolic Empo n 05-10-2021 Albumin [Mass/Vol] 4.1 g/dL Normal 3.2-5.5 [facility] Comment on above: Performed By: #### E BS LIPID, EBS A1C, EBS CMP #### [facility] [address] Albumin/Globulin [Mass ratio] 1.3 {ratio} Normal [facility] Comment on above: Performed By: #### E BS LIPID, EBS A1C, EBS CMP #### [facility] [address] [place] [id number] [facility] ALP [Catalytic activity/Vol] 77 U/L Normal 32-[address] [facility] Comment on above: Performed By: #### E BS LIPID, EBS A1C, EBS CMP #### [facility] [address] [place] [id number] [place] ALT [Catalytic activity/Vol] 19 U/L Normal 10-[address] [facility] Comment on above: Performed By: #### E BS LIPID, EBS A1C, EBS CMP #### [facility] [address] [place] [id number] [place] AST [Catalytic activity/Vol] 18 U/L Normal 10-[address] [facility] Comment on above: Performed By: #### E BS LIPID, EBS A1C, EBS CMP #### [facility] [address] [place] [id number] [place] Bilirubin [Mass/Vol] 0.3 mg/dL Normal 0.3-1.[address] [facility] Comment on above: Performed By: #### E BS LIPID, EBS A1C, EBS CMP #### [facility] [address] Calcium [Mass/Vol] 9.2 mg/dL Normal 8.2-10.2 [facility] Comment on above: Performed By: #### E BS LIPID, EBS A1C, EBS CMP #### [address] Chloride [Moles/Vol] 104 mmol/L Normal 95-[address] [facility] Comment on above: Performed By: #### E BS LIPID, EBS A1C, EBS CMP #### [address] CO2 [Moles/Vol] 24.1 mmol/L Normal 22.0-30.0 [facility] Comment on above: Performed By: #### E BS LIPID, EBS A1C, EBS CMP #### [address] Creatinine [Mass/Vol] 0.69 mg/dL Normal 0.44-1.[address] [facility] Comment on above: Performed By: #### E BS LIPID, EBS A1C, EBS CMP #### [address] Estimated GFR ( Liz > 60 [facility] Comment on above: Result Comment: GFR estimated reference range: According to KDOQI guidelines, <60 ml/min/1.73m2 is sufficient to diagnose a patient with chronic kidney disease. Performed By: #### E BS LIPID, EBS A1C, EBS CMP #### [facility] [address] [place] [address] Estimated GFR (Non- Am > 60 [facility] Comment on above: Performed By: #### E BS LIPID, EBS A1C, EBS CMP #### [facility] [address] [place] [address] [place] Globulin (S) [Mass/Vol] 3.1 g/dL Normal [facility] Comment on above: Performed By: #### E BS LIPID, EBS A1C, EBS CMP #### [facility] [address] [place] [address] [place] Glucose [Mass/Vol] 106 mg/dL High 70-100 [facility] Comment on above: Result Comment: ADA recommended reference range Performed By: #### E BS LIPID, EBS A1C, EBS CMP #### [facility] [address] [place] [address] [place] Potassium [Moles/Vol] 4.0 mmol/L Normal 3.5-5.[address] [facility] Comment on above: Performed By: #### E BS LIPID, EBS A1C, EBS CMP #### [facility] [address] Protein [Mass/Vol] 7.2 g/dL Normal 6.1-7.9 [facility] Comment on above: Performed By: #### E BS LIPID, EBS A1C, EBS CMP #### [facility] [address] [place] [address] [place] Sodium [Moles/Vol] 137 mmol/L Normal 136-146 [facility] Comment on above: Performed By: #### E BS LIPID, EBS A1C, EBS CMP #### [facility] [address] [place] [address] [place] Urea nitrogen [Mass/Vol] 10 mg/dL Normal 9-[address] [facility] Comment on above: Performed By: #### E BS LIPID, EBS A1C, EBS CMP #### [facility] [address] EBS A1C with Estimated Ave Primo hayes 05-10-2021 Glucose [Mass/Vol] 111 mg/dL Normal [facility] Comment on above: Result Comment: PERF ORMED BY: [place] [address] PATHOLOGIST [employer] SUPPORT EQUIPMENT REPAIRER JERRY RAMSEY M.D. Performed By: #### E BS LIPID, EBS A1C, EBS CMP #### [facility] [address] [place] [address] [place] HbA1c (Bld) [Mass fraction] 5.5 % Normal 4.3-5.[address] [facility] Comment on above: Result Comment: Incr eased risk for diabetes: 5.7 - 6.4 diabetes: >6.4 glycemic control for adults with diabetes: <7.0 Performed By: #### E BS LIPID, EBS A1C, EBS CMP #### [facility] [address] [place] [id number] [facility] Lipid Profileon 05-10-2021 Cholesterol [Mass/Vol] 202 mg/dL High 140-[address] [facility] Comment on above: Result Comment: Chol less than 200 mg/dl low risk Chol 201-239 mg/dl borderline risk Chol 240 mg/dl and greater high risk Performed By: #### E BS LIPID, EBS A1C, EBS CMP #### [facility] [address] [place] [address] [place] Cholesterol in HDL [Mass/Vol] 37 mg/dL Normal 35-[address] [facility] Comment on above: Result Comment: HDL CHOL ATP-III CLASSIFICATION Cardiovascular Risk HDL > or equal to 60 mg/dL LOW HDL < 40 mg/dL HIGH Performed By: #### E BS LIPID, EBS A1C, EBS CMP #### [facility] [address] [place] [address] [place] Cholesterol.total/C holesterol in HDL [Mass ratio] 5.5 {ratio} Normal <5.[address] [facility] Comment on above: Result Comment: PERF ORMED BY: [place] [address] PATHOLOGIST [employer] SUPPORT EQUIPMENT REPAIRER JERRY RAMSEY M.D. Performed By: #### E BS LIPID, EBS A1C, EBS CMP #### [facility] [address] [place] [id number] [place] LDL Cholesterol,Calcula jasbir 125 mg/dL High 0-[address] [facility] Comment on above: Result Comment: LDL ATP III CLASSIFICATION LDL less than 100 mg/dL Optimal LDL 100-129 mg/dL Near or above optimal LDL 130-159 mg/dL Borderline high LDL 160-189 mg/dL High LDL greater than 189 mg/dL Very high Performed By: #### E BS LIPID, EBS A1C, EBS CMP #### [facility] [address] [place] [id number] [place] Triglyceride w/Reflex 199 mg/dL High 35-[address] [facility] Comment on above: Result Comment: TRIG ATP III CLASSIFICATION TRIG less than 150 mg/dL Normal TRIG 150-199 mg/dL Borderline high TRIG 200-500 mg/dL High TRIG greater than 500 mg/dL Very high Standard traceable to the Center for Disease Conrtrol and Prevention (CDC) test method. Performed By: #### E BS LIPID, EBS A1C, EBS CMP #### [facility] [address] [place] [id number] [facility] VLDL CHOLESTEROL 39 mg/dL Normal [facility] Comment on above: Performed By: #### E BS LIPID, EBS A1C, EBS CMP #### [facility] [address] [place] [id number] [facility] Encounters Encounter Date Encounter Type Care Provider Facility Start: 11-20-2023 ambulatory [facility] Start: 11-19-2023 End: 11-19-2023 ambulatory TESSY JEFFREY Not Available Start: 10-10-2023 ambulatory [facility] Start: 10-02-2023 ambulatory [facility] Start: 09-19-2023 ambulatory [facility] Start: 06-18-2023 End: 06-18-2023 ambulatory [facility] Start: 04-24-2023 End: 04-24-2023 ambulatory [facility] Start: 12-12-2022 End: 12-15-2022 ambulatory EMEKA HERNANDEZ [facility] Start: 06-19-2022 End: 06-20-2022 ambulatory Isabella Raygoza PICKLING OPERATOR-COMPUTER FIELD TECHNICIAN Facility:Aleksander veronica [facility] Start: 05-30-2022 End: 05-31-2022 ambulatory Adebayo Latham DO Facility:[facility] Start: 05-16-2022 End: 05-17-2022 ambulatory Isabella Raygoza PICKLING OPERATOR-COMPUTER FIELD TECHNICIAN [facility] Start: 12-20-2021 End: 12-21-[address] ADEBAYO SOLARES Facility:[facility] Start: 11-15-2021 End: 11-16-[address] ADEBAYO SOLARES Facility:[facility] Payers Date Payer Category Payer Unknown [id number] 2022 Unknown 2021 Self-pay 2019 Unknown [id number] 1990 Unknown [id number] 2.16.84 [id number] 1990 Unknown [id number] 2.16.84 [id number] 1990 Unknown [id number] 2.16. [id number] 1990 Unknown [id number] 2.16. [id number] 1990 Unknown [id number] 2.16. [id number] 1990 Unknown [id number] 2.16.8 [id number] 1990 Unknown [id number] 2.16.84 [id number] 1958 Unknown [id number] Progress note 09-19-2023 Note Date & Type [...] Follow-up in 3 months Graeme Sutherland MD, [facility] Procedure note 06-18-2023 Note Date & Type Note Facility 06-18-2023 Note LOOP IMPLANT PROCEDU RE NOTE DATE OF PROCEDURE: 06/18/23 PERFORMING PHYSICIAN: Dr. Yoseph Mcintosh SEISMIC OBSERVER: BALWINDER INDICATIONS FOR PROCEDURE: 1. SVT/AF surveillance [...] the sternum on the left using the [employer] tool. The loop recorder was then [...] the incision. Yoseph Mcintosh MD Cardiac Electrophysiology. [facility] Progress note 04-24-2023 Note Date & [...] symptoms that co (more content not included)... [facility] Clinical Note 06-19-2022 Note Date & [...] dreaming in association with her activity. 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 Nutrition/Health Caffeine intake amount: [...] signed by Isabella Grant 06/19/22 15:39 EST [facility] Summary Purpose Family History No Family [...] section and content) DATE CREATED AUTHOR 07/04/2021 [facility] DATE CREATED AUTHOR AUTHOR'S ORGANIZ ATION 2021 [facility] DATE CREATED AUTHOR AUTHOR'S ORGANIZ ATION 06/21/2022 [facility] DATE CREATED AUTHOR AUTHOR'S ORGANIZ ATION 12/15/2022 [facility] DATE CREATED AUTHOR AUTHOR'S ORGANIZ ATION 11/20/2023 [facility] DATE CREATED AUTHOR AUTHOR'S ORGANIZ ATION 11/27/2023 [facility] FOR RECORDS PERTAINING TO PATIENTS WHO ARE [...] BE BASED ON THE PRIMARY CLINICAL RECORDS. [employer] [facility]. provides no warranty or guarantee of the accuracy or completeness of information in this document.
--- NOTE | 2023-12-13 16:00 | US_ITS ---
The [address] [address] Patient Name: JAVID TRIPLETT MRN: [id number] date: 1990 Sex: F Assigned Patient Location: Current Patient Location: Accession/Order Number: [id number] Exam Date: 12/13/2023 16:06 Report Date: 12/14/2023 08:47 At the request of: MELYSSA SOLARES Procedure: US pelvis w/ transvaginal EXAM: Pelvic Ultrasound HISTORY: . INFERTILITY N97.9 . COMPARISON: None. TECHNIQUE: Transabdominal and transvaginal scanning was performed FINDINGS: Scanning of the pelvis demonstrates an anteverted uterus measuring 6.8 x 3.3 x 3.5 cm. Within the myometrium of the body of the uterus there is a 11 mm hypoechoic solid area consistent with intramural uterine fibroid. Endometrial complex measures 9 mm. Right ovary measures 2.5 x 1.4 x 2.1 cm. Color-flow is noted. Resistive indexes 0.47. No masses are noted. Left ovary measures 4.2 x 2.7 x 2.2 cm. Color-flow is noted. Resistive indexes 0.54. No solid masses are noted. There is a 2 x 1.8 cm simple cyst in the left ovary. There is a small nabothian cyst. US/US pelvis w/ transvaginal IMPRESSION: 1. 2 x 1.8 cm simple cyst involving the left ovary. 2. Normal right ovary. 3. 1.1 cm intramural uterine fibroid. 4. Normal endometrial complex. Electronically authenticated by: JESSICA CHAVEZ Date: 12/14/2023 08:47
== END 2023-12-13 15:56 | disposition home or self-care (01) ==
LOC: US 15:55
PROVIDERS: PCP Family Medicine; Visit Provider Family Medicine
DX: N97.9 Female infertility, unspecified (principal); N83.292 Other ovarian cyst, left side; D25.1 Intramural leiomyoma of uterus
CPT/HCPCS: 76830; 76856

== ENCOUNTER 2024-01-22 07:58 | Outpatient (OUT) | payer BC, SELFPAY ==
--- NOTE | 2024-01-22 | PCN_ITS ---
CARDIAC STRESS TEST Requesting Physician: Yoseph Mcintosh M.D. Procedure Date: 01/22/2024 REASON FOR TEST: Palpitations. Patient presented for exercise treadmill stress test. At baseline, her heart rate was 70 beats per minute with a blood pressure of 118/70 mm/Hg. Treadmill per Ed protocol was performed and the patient exercised for 8 minutes and 1 second, achieving stage 3 and a max of 10 METS. With this, peak heart rate of 177 beats per minute was noted with a blood pressure of 137/60 mm/Hg. Heart rate recovery was normal. Good chronotropic response was noted without essential capacity. Yi treadmill score was greater than 5, attributing a low risk for cardiovascular adverse effects. At baseline, her EKG showed sinus rhythm with normal intervals. With exercise, a good heart rate response was noted, and no evidence of ischemia seen on EKG or any arrhythmia noted. Adequate QT shortening was noted, and a PVC was noted, but other than that, no other arrhythmia was seen. IMPRESSION: 1. No evidence of ischemia seen on exercise treadmill test. 2. No evidence of any SVT noted in exercise treadmill test. 3. Good cardiac chronotropic response seen. MTDD
--- OUTSIDE RECORDS SUMMARY | 2024-01-22 08:16 | XMS_ITS | CCD ---
Author Organization [facility] CliniSydc Care Team Providers Care Certified Control Systems Technician Name Role Phone BECK, DR ADEBAYO Oropeza Primary Care Unavailable SOLARES, DR ADEBAOY Oropeza Consulting Unavailable SOLARES, DR ADEBAYO Oropeza Attending Unavailable SOLARES, DR ADEBAYO Oropeza Admitting Unavailable Zieber, DR Ge Consulting Unavailable GLATZLOUIS Consulting Unavailable SOLARES, DR ADEBAYO Oropeza Primary Care Unavailable SOLARES, DR ADEBAYO Oropeza Consulting Unavailable SOLARES, DR ADEBAYO Oropeza Attending Unavailable SOLARES, DR ADEBAYO Oropeza Admitting Unavailable Sak DO, Adebayo Rodas Attending Unavailable Solares, Adebayo Primary Care Unavailable Jaret ORAL SURGERY PHYSICIAN-ELECTRICAL DESIGNER DRAFTER, Isabella Sepulveda Attending Unavaila ble Solares, Adebayo Primary Care Unavailable Jaret ORAL SURGERY PHYSICIAN-ELECTRICAL DESIGNER DRAFTER, Isabella Sepulveda Attending Unavaila ble Solares, Adebayo Primary Care Unavailable Solares, Adebayo Consulting Unavailable Solares, Adebayo Referring Unavailable LILIANAAZEMEKA Arevalo Referring Unavailable TESSY JEFFREY Attending Unavailable JEISON, KENN Attending Unavailable JEISON, KENN Attending Unavailable CHALINO, VIRAL Referring Unavailable CHALINO, VIRAL Referring Unavailable CHALINO, VIRAL Referring Unavailable CHALINO, VIRAL Referring Unavailable TRENTYOSEPH Admitting Unavailable TRENTYOSEPH Attending Unavailable TRENT, YOSEPH Attending Unavailable TRENT, YOSEPH Attending Unavailable PAOLAGRAEME Attending Unavailable CHALINO, VIRAL Referring Unavailable TRENT, YOSEPH Referring Unavailable CHALINO, VIRAL Referring Unavailable Allergies Allergy Classification Reported Allergen(s) Allergy Type Date of Onset Reaction(s) Facility (1 source) No Known Medication Allergies; Translations: [No Known Medication Allergies] Propensity to adverse reactions to drug (disorder) [facility] Repository Problems Active Problems Problem Classification Problem Date Documented Date Episodic/Chronic Headache; including migraine (4 sources) Headache; including migraine; Translations: [HEADACHE UNSPECIFIED] Onset: 12-20-2021 Other circulatory disease (2 sources) Presence of other cardiac implants and grafts; Translations: [Presence of other cardiac implants and grafts] Onset: 09-19-2023 Chronic Residual codes; unclassified (2 sources) Obstructive sleep apnea (adult) (pediatric); Translations: [Obstructive sleep apnea (adult) (pediatric)] Onset: 04-24-2023 Chronic Unclassified (1 source) Supraventricular tachycardia, unspecified; Translations: [Supraventricular tachycardia, unspecified] Onset: 04-24-2023 Past or Other Problems Problem Classification Problem Date Documented Date Episodic/Chronic Cardiac dysrhythmias (7 sources) Palpitations; Translations: [PALPITATIONS] Onset: 11-15-2021 Episodic Syncope (3 sources) Syncope and collapse; Translations: [Syncope and collapse] Onset: 11-14-2022 Episodic Unclassified (1 source) Supraventricular tachycardia, unspecified; Translations: [Supraventricular tachycardia, unspecified] Onset: 04-24-2023 Results Test Name Value Interpretation Reference Range Facility Office Visiton 12-25-2023 Follow-up visit [id number] Javid Prasad 1990 F Date Provider Department Center 12/25/2023 YOSEPH WALTER BEBETO [facility] Family History Problem Relation Age of Onset Atrial fibrillation Mother Diabetes Father Kidney disease Father Heart attack Maternal Grandmother Family Status - Relation Status Age at Mother Father Maternal Grandmother Level of Service:37634 [place] OFFICE/OUTPATIENT ESTABLISHED LOW MDM 20 MIN Normal [facility] Office Visiton 09-19-2023 Follow-up visit [id number] Javid Prasad 1990 F Date Provider Department Center 09/19/2023 GRAEME MONTES BEBETO [facility] Family History Problem Relation Age of Onset Atrial fibrillation Mother Diabetes Father Kidney disease Father Heart attack Maternal Grandmother Family Status - Relation Status Age at Mother Father Maternal Grandmother Level of Service:96524 [place] OFFICE/OUTPATIENT ESTABLISHED MOD MDM 30 MIN Normal [facility] HPon 06-18-2023 [facility] Electrophysiology Consult Note Reason for visit: Palpitations [...] symptoms t (more content not included)... Normal [facility] Alondra 06-18-2023 NURSNOTE RN educated pt on d/ c instructions. RN encouraged pt to voice any questions or concerns. Pt verbalizes no questions or concerns at this time. Pt was wheeled off of unit with all of belongings. Normal [facility] Office Visiton 04-24-2023 Follow-up visit [id number] Javid Prasad 1990 F Date Provider Department Center 04/24/2023 Maria G-YOSEPH MCINTOSH BEBETO [facility] Family History Problem Relation Age of Onset Atrial fibrillation Mother Diabetes Father Kidney disease Father Heart attack Maternal Grandmother Family Status - Relation Status Age at Mother Father Maternal Grandmother Level of Service:55899 [place] OFFICE/OUTPATIENT NEW MODERATE MDM 45 MINUTES Normal [facility] Sleep Medicine Consultationo n 05-16-2022 Sleep Medicine [...] She can be sleepy during the day. [place] Sleepiness Scale score: 12. She is sleepy [...] her clinical (more content not included)... Normal [facility] CT HEAD WO CONon 12-21-2021 CT [...] 07:15 Normal [facility] CT TEMPORAL BONES WO CONon 0 12-21-2021 [...] foramen are normal. Visualized paranasal sinuses clear. Armature Varnisher spaces normal. Orbital contents unremarkable. Posterior fossa structures normal. IMPRESSION: Normal CT of the temporal bones. Electronically authenticated by: LOUIS BRAY Date: 2021-12-21 16:11 Normal [facility] Comprehensive Metabolic Empo n 05-10-2021 Albumin [Mass/Vol] 4.1 g/dL Normal 3.2-5.5 [facility] Comment on above: Performed By: #### E BS LIPID, EBS A1C, EBS CMP #### [address] Albumin/Globulin [Mass ratio] 1.3 {ratio} Normal [facility] Comment on above: Performed By: #### E BS LIPID, EBS A1C, EBS CMP #### [facility] [address] [place] [address] [place] ALP [Catalytic activity/Vol] 77 U/L Normal 32-92 [facility] Comment on above: Performed By: #### E BS LIPID, EBS A1C, EBS CMP #### [facility] [address] ALT [Catalytic activity/Vol] 19 U/L Normal 10-60 [facility] Comment on above: Performed By: #### E BS LIPID, EBS A1C, EBS CMP #### [facility] [address] [place] [address] [place] AST [Catalytic activity/Vol] 18 U/L Normal 10-42 [facility] Comment on above: Performed By: #### E BS LIPID, EBS A1C, EBS CMP #### [facility] [address] Bilirubin [Mass/Vol] 0.3 mg/dL Normal 0.3-1.2 [facility] Comment on above: Performed By: #### E BS LIPID, EBS A1C, EBS CMP #### [facility] [address] Calcium [Mass/Vol] 9.2 mg/dL Normal 8.2-10.2 [facility] Comment on above: Performed By: #### E BS LIPID, EBS A1C, EBS CMP #### [address] Chloride [Moles/Vol] 104 mmol/L Normal 95-114 [facility] Comment on above: Performed By: #### E BS LIPID, EBS A1C, EBS CMP #### [address] CO2 [Moles/Vol] 24.1 mmol/L Normal 22.0-30.0 [facility] Comment on above: Performed By: #### E BS LIPID, EBS A1C, EBS CMP #### [place] [address] [place] Creatinine [Mass/Vol] 0.69 mg/dL Normal 0.44-1.03 [facility] Comment on above: Performed By: #### E BS LIPID, EBS A1C, EBS CMP #### [place] [address] [place] Estimated GFR ( Liz > [address] [facility] Comment on above: Result Comment: GFR estimated reference range: According to KDOQI guidelines, <60 ml/min/1.73m2 is sufficient to diagnose a patient with chronic kidney disease. Performed By: #### E BS LIPID, EBS A1C, EBS CMP #### [facility] [address] [place] [address] [place] Estimated GFR (Non- Am > [address] [facility] Comment on above: Performed By: #### E BS LIPID, EBS A1C, EBS CMP #### [facility] [address] [place] [address] [place] Globulin (S) [Mass/Vol] 3.1 g/dL Normal [facility] Comment on above: Performed By: #### E BS LIPID, EBS A1C, EBS CMP #### [facility] [address] Glucose [Mass/Vol] 106 mg/dL High 70-100 [facility] Comment on above: Result Comment: ADA recommended reference range Performed By: #### E BS LIPID, EBS A1C, EBS CMP #### [facility] [address] Potassium [Moles/Vol] 4.0 mmol/L Normal 3.5-5.1 [facility] Comment on above: Performed By: #### E BS LIPID, EBS A1C, EBS CMP #### [facility] [address] Protein [Mass/Vol] 7.2 g/dL Normal 6.1-7.9 [facility] Comment on above: Performed By: #### E BS LIPID, EBS A1C, EBS CMP #### [facility] [address] [place] [address] [place] Sodium [Moles/Vol] 137 mmol/L Normal 136-146 [facility] Comment on above: Performed By: #### E BS LIPID, EBS A1C, EBS CMP #### [facility] [address] [place] [address] [place] Urea nitrogen [Mass/Vol] 10 mg/dL Normal 9-23 [facility] Comment on above: Performed By: #### E BS LIPID, EBS A1C, EBS CMP #### [facility] [address] EBS A1C with Estimated Avsaad hayes 05-10-2021 Glucose [Mass/Vol] 111 mg/dL Normal [facility] Comment on above: Result Comment: PERF ORMED BY: [address] [place] [address] PATHOLOGIST TRAIN STATION AGENT JERRY RAMSEY M.D. Performed By: #### E BS LIPID, EBS A1C, EBS CMP #### [facility] [address] HbA1c (Bld) [Mass fraction] 5.5 % Normal 4.3-5.6 [facility] Comment on above: Result Comment: Incr eased risk for diabetes: 5.7 - 6.4 diabetes: >6.4 glycemic control for adults with diabetes: <7.0 Performed By: #### E BS LIPID, EBS A1C, EBS CMP #### [facility] [address] Lipid Profileon 05-10-2021 Cholesterol [Mass/Vol] 202 mg/dL High 140-200 [facility] Comment on above: Result Comment: Chol less than 200 mg/dl low risk Chol 201-239 mg/dl borderline risk Chol 240 mg/dl and greater high risk Performed By: #### E BS LIPID, EBS A1C, EBS CMP #### [facility] [address] Cholesterol in HDL [Mass/Vol] 37 mg/dL Normal 35-85 [facility] Comment on above: Result Comment: HDL CHOL ATP-III CLASSIFICATION Cardiovascular Risk HDL > or equal to 60 mg/dL LOW HDL < 40 mg/dL HIGH Performed By: #### E BS LIPID, EBS A1C, EBS CMP #### [facility] [address] Cholesterol.total/C holesterol in HDL [Mass ratio] 5.5 {ratio} Normal <5.0 [facility] Comment on above: Result Comment: PERF ORMED BY: [address] [place] [address] PATHOLOGIST TRAIN STATION AGENT JERRY RAMSEY M.D. Performed By: #### E BS LIPID, EBS A1C, EBS CMP #### [facility] [address] LDL Cholesterol,Calcula jasbir 125 mg/dL High 0-100 [facility] Comment on above: Result Comment: LDL ATP III CLASSIFICATION LDL less than 100 mg/dL Optimal LDL 100-129 mg/dL Near or above optimal LDL 130-159 mg/dL Borderline high LDL 160-189 mg/dL High LDL greater than 189 mg/dL Very high Performed By: #### E BS LIPID, EBS A1C, EBS CMP #### [facility] [address] Triglyceride w/Reflex 199 mg/dL High 35-149 [facility] Comment on above: Result Comment: TRIG ATP III CLASSIFICATION TRIG less than 150 mg/dL Normal TRIG 150-199 mg/dL Borderline high TRIG 200-500 mg/dL High TRIG greater than 500 mg/dL Very high Standard traceable to the Center for Disease Conrtrol and Prevention (CDC) test method. Performed By: #### E BS LIPID, EBS A1C, EBS CMP #### [facility] [address] VLDL CHOLESTEROL 39 mg/dL Normal [facility] Comment on above: Performed By: #### E BS LIPID, EBS A1C, EBS CMP #### [facility] [address] Encounters Encounter Date Encounter Type Care Provider Facility Start: 01-16-2024 ambulatory [facility] Start: 01-16-2024 End: 01-16-2024 ambulatory KENN MCHUGH Not Available Start: 12-25-2023 End: 12-25-2023 ambulatory KENN MCHUGH Not Available Start: 11-20-2023 ambulatory [facility] Start: 11-19-2023 End: 11-19-2023 ambulatory TESSY JEFFREY Not Available Start: 10-10-2023 ambulatory [facility] Start: 10-02-2023 ambulatory [facility] Start: 09-19-2023 ambulatory [facility] Start: 06-18-2023 End: 06-18-2023 ambulatory [facility] Start: 04-24-2023 End: 04-24-2023 ambulatory [facility] Start: 12-12-2022 End: 12-15-2022 ambulatory EMEKA [facility] Start: 06-19-2022 End: 06-20-2022 ambulatory Isabella Coco Jaret ORAL SURGERY PHYSICIAN-ELECTRICAL DESIGNER DRAFTER Facility:[facility] Start: 05-30-2022 End: 05-31-2022 ambulatory Adebayo Latham DO Facility:[facility] Start: 05-16-2022 End: 05-17-2022 ambulatory Isabella Sepulveda Jaret ORAL SURGERY PHYSICIAN-ELECTRICAL DESIGNER DRAFTER [facility] Start: 12-20-2021 End: 12-21-[address] ADEBAYO SOLARES Facility:[facility] Start: 11-15-2021 End: 11-16-[address] ADEBAYO SOLARES Facility:[facility] Payers Date Payer Category Payer Unknown [id number] 2022 Unknown 2021 Self-pay 2019 Unknown [id number] 1990 Unknown [id number] 2.16.84 [id number] 1990 Unknown [id number] 2.16.84 [id number] 1990 Unknown [id number] 2.16. [id number] 1990 Unknown [id number] 2.16. [id number] 1990 Unknown [id number] 2.16. [id number] 1990 Unknown [id number] 2.16.8 [id number] 1990 Unknown [id number] 2.16.84 [id number] 1991 Unknown [id number] 2.16.84 [id number] 1991 Unknown [id number] 2.16.84 [id number] 1959 Unknown [id number] Progress note 09-10-2024 Note Date & Type Note Facility 12-25-2023 Note Try to bring the berhane nt monitor [facility]rophys[facility] Consult Note Reason for visit: Palpitations 12/25/23 Patient underwent a loop implant on 06/18/2023 for symptom EKG correlation. Review of the loop shows episodes of long RP tachycardia at 174 beats a minute the last of which was noted on December 17, 2023. He has episodes in November 18, 11 28 and which are at the rate of 170 beats a minute. patient usually exercises between 6 to 7 PM and most of the elevated heart rates are in this time. There are 2-3 episodes which have not correlating to exercise. HPI: Javid Prasad is a 33 y.o. year old with past medical history [...] drugs PMH: Past Medical History: Diagnosis Date Abnormal ECG Palpitations Sleep apnea PSH: No past surgical history on file. SH: Social Determinants of Health Tobacco Use: Low Risk (12/25/2023) Patient History Smoking Tobacco Use: Never Smokeless Tobacco Use: Never Passive Exposure: Not on file Alcohol Use: Not on file Financial Resource Strain: Not on file Food Insecurity: Not on file Transportation Needs: Not on file Physical Activity: Not on file Stress: Not on file Social Connections: Not on file Intimate Partner Violence: Unknown (06/07/2023) [place] Safety & Environment Fear of Current or Ex-Partner: Not on file Emotionally Abused: Not on file Physically Abused: Not on file Sexually Abused: Not on file Physically or Sexually Abused: Not on file Depression: Not on file Housing Stability: Not on file Utilities: Not on file Allergies: No Known Allergies Weight: 127kg Visit Vitals BP 120/84 (BP Location: Left arm, Patient Position: Sitting) Pulse 80 Ht 1.829 m (6') Wt 127 kg (279 lb) SpO2 98% BMI 37.84 kg/m??? Smoking Status Never BSA 2.54 m??? Meds: Current Outpatient Medications on File Prior to Visit Medication Sig Dispense Refill omeprazole (PriLOSEC) [address] capsule if needed. Vitamin D2 1,250 mcg (50,000 unit) capsule Take 1 capsule by mouth 1 (one) time per week. No current facility-administered medications on file prior [...] no gallop Systolic Murmur: not heard Diastolic (more content not included)... [facility] Progress note 09-19-2023 Note Date & Type [...] Follow-up in 3 months Graeme Sutherland MD, [facility] Procedure note 06-18-2023 Note Date & Type Note Facility 06-18-2023 Note LOOP IMPLANT PROCEDU RE NOTE DATE OF PROCEDURE: 06/18/23 PERFORMING PHYSICIAN: Dr. Yoseph Mcintosh WOODWORKING BENCH CARPENTER: BALWINDER INDICATIONS FOR PROCEDURE: 1. SVT/AF surveillance [...] the sternum on the left using the Kodable tool. The loop recorder was then injected [...] the incision. Yoseph Mcintosh MD Cardiac Electrophysiology. [facility] Progress note 04-24-2023 Note Date & Type [...] symptoms that co (more content not included)... [facility] Clinical Note 06-19-2022 Note Date & Type [...] dreaming in association with her activity. 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 Nutrition/Health Caffeine intake amount: 20 [...] DO 05/16/2022 14:30 EST Electronically signed by Jaret DIAZ Isabella Coco 06/19/22 15:39 EST [facility] Summary Purpose Family History No Family [...] section and content) DATE CREATED AUTHOR 07/04/2021 [facility] DATE CREATED AUTHOR AUTHOR'S ORGANIZ ATION 2021 [facility] DATE CREATED AUTHOR AUTHOR'S ORGANIZ ATION 06/21/2022 [facility] DATE CREATED AUTHOR AUTHOR'S ORGANIZ ATION 12/15/2022 [facility] DATE CREATED AUTHOR AUTHOR'S ORGANIZ ATION 01/18/2024 [facility] DATE CREATED AUTHOR AUTHOR'S ORGANRAGHAV ATION 01/18/2024 [facility] FOR RECORDS PERTAINING TO PATIENTS WHO ARE [...] BE BASED ON THE PRIMARY CLINICAL RECORDS. [employer] provides no warranty or guarantee of the accuracy or completeness of information in this document.
--- NOTE | 2024-01-22 09:13 | PC.NURSE ---
Nursing Note Cardiac Stress Test Reviewed: Medication, allergies and patient history reviewed. Stress Test: [ x] Patient tolerated stress test well. [ ] Patient unable to tolerate walking on treadmill. Switched to Lexiscan stress test. [x ] No chest pain noted per patient [ ] Chest pain that resolved prior to leaving stress lab. [ ] No dyspnea noted. [x ] Dyspnea that resolved prior to leaving stress lab. [x ] Patient left stress lab asymptomatic and hemodynamically stable. [ ] Patient taken to the Emergency Room due to non-resolving symptoms following stress test. [x ] Patient achieved target heart rate. [ ] Patient unable to achieve target heart rate. [ ] Aminophylline administered as reversal agent to Lexiscan (Regadenoson). [ ] Nitro administered. Nursing Comments:Pt had regular stress test done and tolerated well. NO issues noted. Pt felt back to normal at end of test with no issues or complaints.
== END 2024-01-22 07:59 | disposition home or self-care (01) ==
LOC: CARD 07:59
PROVIDERS: PCP Family Medicine; Visit Provider Internal Medicine Cardiovascular Disease
DX: I47.10 Supraventricular tachycardia, unspecified (principal); R94.31 Abnormal electrocardiogram [ECG] [EKG]
CPT/HCPCS: 93017

== ENCOUNTER 2024-01-30 08:03 | Outpatient (OUT) | payer BC, SELFPAY ==
--- OUTSIDE RECORDS SUMMARY | 2024-01-30 08:04 | XMS_ITS | CCD ---
Author Organization [facility] CliniSyne Care Team Providers Care Upholstery Parts Sorter Name Role Phone BECK, DR ADEBAYO Oropeza [...] Unavailable Solares, Adebayo Primary Care Unavailable Jaret DISPUTE COORDINATOR-BUSINESS MANAGEMENT MANAGER, Isabella Sepulveda Attending Unavaila ble Solares, Adebayo Primary Care Unavailable Jaret DISPUTE COORDINATOR-BUSINESS MANAGEMENT MANAGER, Isabella Sepulveda Attending Unavaila ble Solares, Adebayo Primary Care Unavailable Solares, Adebayo Consulting Unavailable Solares, Adebayo Referring Unavailable MEEKA HERNANDEZ Referring Unavailable TESSY JEFFREY Attending Unavailable RIDDHIKENN Attending Unavailable RIDDHI, KENN Attending Unavailable CHALINO, VIRAL Referring Unavailable CHALINO, VIRAL Referring Unavailable CHALINO, VIRAL Referring Unavailable CHALINO, VIRAL Referring Unavailable TRENTYOSEPH Admitting Unavailable TRENTYOSEPH Tan Attending Unavailable TRENT, YOSEPH Attending Unavailable TRENT, YOSEPH Attending Unavailable PAOLAGRAEME Attending Unavailable CHALINO, VIRAL Referring Unavailable TRENT, YOSEPH Referring Unavailable CHALINO, VIRAL Referring Unavailable Solares Adebayo GOYAL Primary Care Provider [phone] Allergies Allergy Classification Reported Allergen(s) Allergy Type Date of Onset Reaction(s) Facility (1 source) No Known Medication Allergies; Translations: [No Known Medication Allergies] Propensity to adverse reactions to drug (disorder) [facility] Repository Medications Current Medications Medication Drug Class(es) Dates Sig (Normalized) Sig (Original) metFORMIN hydrochloride 500 mg oral tablet (2 sources) Biguanide Start: 12-25-2023 End: 2024 take 1 tablet by mouth at mealtime metFORMIN (Glucophage) 500 MG tablet Indications: PCOS (polycystic ovarian syndrome) Take 1 tablet (500 mg) by mouth in the morning. Take with meals. 30 tablet 11 12/25/2023 2024 Active omeprazole 40 mg delayed release oral capsule (2 sources) Proton Pump Inhibitor omeprazole (PriLOSEC) [address] capsule Take 20 mg by mouth in the morning. Take before meals. Active Problems Active Problems Problem Classification Problem Date Documented Date Episodic/Chronic Benign neoplasm of uterus (1 source) Uterine leiomyoma; Translations: [Leiomyoma of uterus, unspecified] 01-16-2024 Episodic Headache; including migraine (4 sources) Headache; [...] Range Facility Office Visiton 12-25-2023 Follow-up visit [id number] Javid Prasad 1990 F Date Provider Department Center 12/25/2023 YOSEPH WALTER BEBETO [facility] Family History Problem Relation Age of Onset Atrial fibrillation Mother Diabetes Father Kidney disease Father Heart attack Maternal Grandmother Family Status - Relation Status Age at Mother Father Maternal Grandmother Level of Service:79243 [place] OFFICE/OUTPATIENT ESTABLISHED LOW MDM 20 MIN Normal [facility] Office Visiton 09-19-2023 Follow-up visit [id number] Javid Prasad 1990 F Date Provider Department Center 09/19/2023 [id number] GUEVARA BEBETO [facility] Family History Problem Relation Age of Onset Atrial fibrillation Mother Diabetes Father Kidney disease Father Heart attack Maternal Grandmother Family Status - Relation Status Age at Mother Father Maternal Grandmother Level of Service:21285 [place] OFFICE/OUTPATIENT ESTABLISHED MOD MDM 30 MIN Normal [facility] HPon 06-18-2023 [facility] Electrophysiology Consult Note Reason for [...] t (more content not included)... Normal [facility] NURSNOTEon 06-18-2023 NURSNOTE RN educated pt on d/ c instructions. RN encouraged pt to voice any questions or concerns. Pt verbalizes no questions or concerns at this time. Pt was wheeled off of unit with all of belongings. Normal [facility] Office Visiton 04-24-2023 Follow-up visit [id number] Javid Prasad 1990 F Date Provider Department Center 04/24/2023 YOSEPH WALTER BEBETO [facility] Family History Problem Relation Age of Onset Atrial fibrillation Mother Diabetes Father Kidney disease Father Heart attack Maternal Grandmother Family Status - Relation Status Age at Mother Father Maternal Grandmother Level of Service:85580 [place] OFFICE/OUTPATIENT NEW MODERATE MDM 45 MINUTES Normal [facility] Sleep Medicine Consultationo n 05-16-2022 Sleep [...] She can be sleepy during the day. [place] Sleepiness Scale score: 12. She is sleepy [...] her clinical (more content not included)... Normal [facility] CT HEAD WO CONon 12-21-2021 [...] by: CARLOS GALE Date: 2021-12-21 07:15 Normal [facility] CT TEMPORAL BONES WO CONon 0 [...] foramen are normal. Visualized paranasal sinuses clear. Desktop Technician spaces normal. Orbital contents unremarkable. Posterior fossa structures normal. IMPRESSION: Normal CT of the temporal bones. Electronically authenticated by: LOUIS BRAY Date: 2021-12-21 16:11 Normal [facility] Comprehensive Metabolic Empo n 05-10-2021 Albumin [Mass/Vol] 4.1 g/dL Normal 3.2-5.5 [facility] Comment on above: Performed By: #### E BS LIPID, EBS A1C, EBS CMP #### [facility] [address] [place] [address] [place] Albumin/Globulin [Mass ratio] 1.3 {ratio} Normal [facility] Comment on above: Performed By: #### E BS LIPID, EBS A1C, EBS CMP #### [facility] [address] [place] [id number] [place] ALP [Catalytic activity/Vol] 77 U/L Normal 32-92 [facility] Comment on above: Performed By: #### E BS LIPID, EBS A1C, EBS CMP #### [facility] [address] [place] [address] [place] ALT [Catalytic activity/Vol] 19 U/L Normal 10-60 [facility] Comment on above: Performed By: #### E BS LIPID, EBS A1C, EBS CMP #### [facility] [address] [place] [address] [place] AST [Catalytic activity/Vol] 18 U/L Normal 10-42 [facility] Comment on above: Performed By: #### E BS LIPID, EBS A1C, EBS CMP #### [facility] [address] [place] [address] [place] Bilirubin [Mass/Vol] 0.3 mg/dL Normal 0.3-1.2 [facility] Comment on above: Performed By: #### E BS LIPID, EBS A1C, EBS CMP #### [facility] [address] [place] [address] [place] Calcium [Mass/Vol] 9.2 mg/dL Normal 8.2-10.2 [facility] Comment on above: Performed By: #### E BS LIPID, EBS A1C, EBS CMP #### [facility] [address] [place] [id number] [place] Chloride [Moles/Vol] 104 mmol/L Normal 95-114 [facility] Comment on above: Performed By: #### E BS LIPID, EBS A1C, EBS CMP #### [facility] [address] [place] [id number] [place] CO2 [Moles/Vol] 24.1 mmol/L Normal 22.0-30.0 [facility] Comment on above: Performed By: #### E BS LIPID, EBS A1C, EBS CMP #### [facility] [address] Creatinine [Mass/Vol] 0.69 mg/dL Normal 0.44-1.03 [facility] Comment on above: Performed By: #### E BS LIPID, EBS A1C, EBS CMP #### [facility] [address] [place] [address] Estimated GFR ( Liz > 60 Normal [facility] Comment on above: Result Comment: GFR estimated reference range: According to KDOQI guidelines, <60 ml/min/1.73m2 is sufficient to diagnose a patient with chronic kidney disease. Performed By: #### E BS LIPID, EBS A1C, EBS CMP #### [facility] [address] [place] [address] Estimated GFR (Non- Am > 60 Normal [facility] Comment on above: Performed By: #### E BS LIPID, EBS A1C, EBS CMP #### [facility] [address] [place] [address] Globulin (S) [Mass/Vol] 3.1 g/dL Normal [facility] Comment on above: Performed By: #### E BS LIPID, EBS A1C, EBS CMP #### [facility] [address] [place] [address] [place] Glucose [Mass/Vol] 106 mg/dL High 70-100 [facility] Comment on above: Result Comment: ADA recommended reference range Performed By: #### E BS LIPID, EBS A1C, EBS CMP #### [facility] [address] [place] [address] [place] Potassium [Moles/Vol] 4.0 mmol/L Normal 3.5-5.1 [facility] Comment on above: Performed By: #### E BS LIPID, EBS A1C, EBS CMP #### [facility] [address] [place] [address] [place] Protein [Mass/Vol] 7.2 g/dL Normal 6.1-7.9 [facility] Comment on above: Performed By: #### E BS LIPID, EBS A1C, EBS CMP #### [facility] [address] [place] [address] [place] Sodium [Moles/Vol] 137 mmol/L Normal 136-146 [facility] Comment on above: Performed By: #### E BS LIPID, EBS A1C, EBS CMP #### [facility] [address] Urea nitrogen [Mass/Vol] 10 mg/dL Normal 9-23 [facility] Comment on above: Performed By: #### E BS LIPID, EBS A1C, EBS CMP #### [facility] [address] EBS A1C with Estimated Ave Primo hayes 05-10-2021 Glucose [Mass/Vol] 111 mg/dL Normal [facility] Comment on above: Result Comment: PERF ORMED BY: [place] [address] PATHOLOGIST RESEARCH RN SPEC JERRY RAMSEY M.D. Performed By: #### E BS LIPID, EBS A1C, EBS CMP #### [facility] [address] HbA1c (Bld) [Mass fraction] 5.5 % Normal 4.3-5.6 [facility] Comment on above: Result Comment: Incr eased risk for diabetes: 5.7 - 6.4 diabetes: >6.4 glycemic control for adults with diabetes: <7.0 Performed By: #### E BS LIPID, EBS A1C, EBS CMP #### [facility] [address] Lipid Profileon 05-10-2021 Cholesterol [Mass/Vol] 202 mg/dL High 140-200 [facility] Comment on above: Result Comment: Chol less than 200 mg/dl low risk Chol 201-239 mg/dl borderline risk Chol 240 mg/dl and greater high risk Performed By: #### E BS LIPID, EBS A1C, EBS CMP #### [facility] [address] Cholesterol in HDL [Mass/Vol] 37 mg/dL Normal 35-85 [facility] Comment on above: Result Comment: HDL CHOL ATP-III CLASSIFICATION Cardiovascular Risk HDL > or equal to 60 mg/dL LOW HDL < 40 mg/dL HIGH Performed By: #### E BS LIPID, EBS A1C, EBS CMP #### [facility] [address] Cholesterol.total/C holesterol in HDL [Mass ratio] 5.5 {ratio} Normal <5.0 [facility] Comment on above: Result Comment: PERF ORMED BY: [place] [address] PATHOLOGIST RESEARCH RN SPEC JERRY RAMSEY M.D. Performed By: #### E BS LIPID, EBS A1C, EBS CMP #### [facility] [address] LDL Cholesterol,Calcula jasbir 125 mg/dL High 0-100 [facility] Comment on above: Result Comment: LDL ATP III CLASSIFICATION LDL less than 100 mg/dL Optimal LDL 100-129 mg/dL Near or above optimal LDL 130-159 mg/dL Borderline high LDL 160-189 mg/dL High LDL greater than 189 mg/dL Very high Performed By: #### E BS LIPID, EBS A1C, EBS CMP #### [facility] [address] Triglyceride w/Reflex 199 mg/dL High 35-149 [facility] Comment on above: Result Comment: TRIG ATP III CLASSIFICATION TRIG less than 150 mg/dL Normal TRIG 150-199 mg/dL Borderline high TRIG 200-500 mg/dL High TRIG greater than 500 mg/dL Very high Standard traceable to the Center for Disease Conrtrol and Prevention (CDC) test method. Performed By: #### E BS LIPID, EBS A1C, EBS CMP #### [facility] [address] VLDL CHOLESTEROL 39 mg/dL Normal [facility] Comment on above: Performed By: #### E BS LIPID, EBS A1C, EBS CMP #### [facility] [address] [place] [address] Vital Signs Date Time Vital Sign Value Performing Clinician Ronaldo coello 01-16-2024 16:38-0400 Body height 182.9 cm Kenn MorganCurried Away Catering Work Phone: [facility] 01-16-2024 16:38-0400 Body mass index (BMI) [Ratio] 37.57 kg/m2 Kenn Riddhi DO Work Phone: [facility] 01-16-2024 16:38-0400 Body weight 125.65 kg Kenn Riddhi DO Work Phone: [facility] 01-16-2024 16:38-0400 Diastolic blood pressure 80 mm[Hg] Kenn Riddhi DO Work Phone: [facility] 01-16-2024 16:38-0400 Systolic blood pressure 124 mm[Hg] Kenn Riddhi DO Work Phone: [facility] Healthcare Encounters Encounter Date Encounter Type Care Provider Facility Start: 01-16-2024 ambulatory [facility] Start: 01-16-2024 End: 01-16-2024 Office outpatient visit 15 minutes Kenn Riddhi DO Work Phone: [facility] Comment on above: Pre-op examination; Uterine leiomyoma, unspecified location Start: 01-16-2024 End: 01-16-2024 Preprocedural examination done Kenn Riddhi DO Work Phone: [facility] Start: 01-16-2024 End: 01-16-2024 ambulatory KENN RIDDHI Not Available Start: 01-16-2024 End: 01-16-2024 Bamboo flowsheet Kenn Riddhi DO Work Phone: [facility] Start: 01-16-2024 End: 01-16-2024 Bamboo flowsheet Kenn Riddhi DO Work Phone: [facility] Start: 12-25-2023 End: 12-25-2023 ambulatory KENN RIDDHI Not Available Start: 11-20-2023 ambulatory YOSEPH MCINTOSH [facility] Start: 11-19-2023 End: 11-19-2023 ambulatory TESSY JEFFREY Not Available Start: 10-10-2023 ambulatory [facility] Start: 10-02-2023 ambulatory [facility] Start: 09-19-2023 ambulatory GRAEME [facility] Start: 06-18-2023 End: 06-18-2023 ambulatory [facility] Start: 04-24-2023 End: 04-24-2023 ambulatory [facility] Start: 12-12-2022 End: 12-15-2022 ambulatory EMEKA [facility] Start: 06-19-2022 End: 06-20-2022 ambulatory Isabella Raygoza DISPUTE COORDINATOR-BUSINESS MANAGEMENT MANAGER Facility:[facility] Start: 05-30-2022 End: 05-31-2022 ambulatory Adebayo Latham DO Facility:[facility] Start: 05-16-2022 End: 05-17-2022 ambulatory Isabella Raygoza DISPUTE COORDINATOR-BUSINESS MANAGEMENT MANAGER Facility:[facility] Start: 12-20-2021 End: 12-21-[address] ADEBAYO SOLARES Facility:[facility] Start: 11-15-2021 End: 11-16-[address] ADEBAYO SOLARES Facility:[facility] Procedures Date Procedure Procedure Detail Performing Clinician Start: 05-17-2012 Microscopic observat ion [Identifier] in Cervix by Cyto stain Kenn Hannon DO Work Phone: Plan of Treatment Date Care Activity Detail Author Start: 01-16-2024 End: 01-16-2024 Patient encounter procedure 01/16/2024 4:00 PM EDT Consult [facility] [address] [place] [address] Kenn Hannon, DO [address] [place] [address] Arrived [facility] Comment on above: Arrived Start: 12-16-2023 Influenza vaccination Influenza Vacc ine (#1) [facility] Start: 05-17-2017 Screening for malign ant neoplasm of cervix [facility] Immunizations Immunization Date Immunization Notes Care Provider Fa [facility] 02-12-2023 influenza virus vacc ine, unspecified formulation Kenn Hannon DO Work Phone: [facility] Payers Date Payer Category Payer Unknown [id number] 2022 Unknown 2021 Self-pay 2019 Unknown [id number] 1990 Unknown [id number] 2.16.84 [id number] 1990 Unknown [id number] 2.16.84 [id number] 1990 Unknown [id number] 2.16. [id number] 1990 Unknown [id number] 2.16. [id number] 1990 Unknown [id number] 2.16. [id number] 1990 Unknown [id number] 2.16.8 [id number] 1990 Unknown [id number] 2.16.84 [id number] 1990 Unknown [id number] 2.16.84 [id number] 1990 Unknown [id number] 2.16.84 [id number] 1958 Unknown [id number] Social History Date Type Detail Facility Start: 11-19-2023 Tobacco smoking stat [facility] Never smoked tobacco [facility] Start: 11-19-2023 Tobacco use and exposure Smoke less tobacco non-user [facility] Start: 12-25-2023 End: 01-16-2024 Alcoholic beverage intake Lifetime non-drinker (finding) [facility] Start: 11-19-2023 History of Social function [facility] Start: 11-19-2023 Tobacco use panel [facility] Start: 1990 Sex assigned at Not on file [facility] History of Present illness Narrative 01-16-2024 Karuna Miguel - 01/16/2024 4:00 PM EDT Note Date & Type Note Facility 01-16-2024 History of Presen t illness Narrative Reason for Appointment: Patient ID: Javid Prasad is a 33 y.o. female who presents for Pre-op Visit Patient presents today for Pre Op appointment. Patient is scheduled to undergo D&C Hysteroscopy, possible Myosure on 02/08/[address] Hannon at [facility]. MEDICATIONS Current Outpatient Medications Medication Instructions metFORMIN (GLUCOPHAGE) 500 mg, Oral, Daily with breakfast omeprazole (PRILOSEC) 20 mg, Oral, Daily before breakfast ALLERGIES No Known Allergies PROBLEMS Active Ambulatory Problems Diagnosis Date Noted No Active Ambulatory Problems Resolved Ambulatory Problems Diagnosis Date Noted No Resolved Ambulatory Problems Past Medical History: Diagnosis Date Fibrocystic breast 2011 Rectal bleeding October 15, 2023 HISTORY PAST MEDICAL HISTORY SOCIAL HISTORY Past Medical History: Diagnosis Date Fibrocystic breast 2011 Rectal bleeding October 15, 2023 Social History Tobacco Use Smoking status: Never Smokeless tobacco: Never Substance Use Topics Alcohol use: Never Drug use: Never FAMILY HISTORY Family History Problem Relation Name Age of Onset Arthritis Father Adebayo Marco Diabetes Father Adebayo Marco Hyperlipidemia Father Adebayo Marco Hypertension Father Adebayo Marco Kidney disease Father Adebayo Marco Stroke Father Adebayo Marco Diabetes Maternal Grandfather James Alcaraz Hypertension Maternal Grandmother Sandy Alcaraz Diabetes Paternal Grandfather Rito Marco Kidney disease Paternal Grandfather Rito Marco SURGICAL HISTORY Past Surgical History: Procedure Laterality Date COLONOSCOPY 12/11/2023 COLPOSCOPY 12/11/23 REVIEW OF SYSTEMS Review of Systems: Review of Systems Constitutional: Negative. HENT: Negative. Eyes: Negative. Respiratory: Negative. Cardiovascular: Negative. Gastrointestinal: Negative. Genitourinary: Negative. Musculoskeletal: Negative. Skin: Negative. Neurological: Negative. All other systems reviewed and are negative. Hematological: Negative. Endocrine: Negative. Allergic/Immunologic: Negative. OBJECTIVE Objective: Physical Exam Constitutional: Appearance: Normal appearance. She is normal weight. HENT: Head: Normocephalic. Cardiovascular: Rate and Rhythm: Normal rate. Pulses: Normal pulses. Pulmonary: Effort: Pulmonary effort is normal. Breath sounds: Normal breath sounds. Abdominal: Palpations: Abdomen is soft. Musculoskeletal: General: Normal range of motion. Neurological: General: No focal deficit present. Mental Status: She is alert and oriented to person, place, and time. Psychiatric: Mood and Affect: Mood normal. Behavior: Behavior normal. Thought Content: Thought content normal. Judgment: Judgment normal. Vitals and nursing note reviewed. Vitals: Estimated body mass index is 37.57 kg/m as calculated from the following: Height as of 12/25/23: 6'. Weight as of 12/25/23: 277 lb. BP: Patient's last menstrual period was 12/14/2023. ASSESSMENT & PLAN ICD-10-CM 1. Pre-op examination Z01.818 2. Uterine leiomyoma, unspecified location D25.9 Pre Op: Patient is doing well but has complaints of uterine fibroid. I have discussed conservative management vs. surgical management with the patient in detail and patient desires surgical management at this time. Patient will undergo D&C Hysteroscopy, possible Myosure on 02/08/2024. Surgical consents were signed, mmc was reviewed, and patient is to proceed to [facility]. Follow Up: Patient is to follow up between 1-2 weeks post operative to assess proper healing and recovery from procedure. Documented by Katarzyna Malagon LPN on behalf of: Kenn Hannon DO documented in this encounter [facility] Progress note 12-25-2023 Note Date & Type Note Facility 12-25-2023 [...] on file Intimate Partner Violence: Unknown (06/07/2023) [place] Safety & Environment Fear of Current or [...] not heard Diastolic (more content not included)... [facility] Progress note 09-19-2023 Note Date & Type [...] D replacement Follow-up in 3 months Graeme Guevara MD, [facility] Procedure note 06-18-2023 Note Date & Type Note Facility 06-18-2023 Note LOOP IMPLANT PROCEDU RE NOTE DATE OF PROCEDURE: 06/18/23 PERFORMING PHYSICIAN: Dr. Yoseph Mcintosh AUTOMOBILE ENGINE ASSEMBLER: [employer] INDICATIONS FOR PROCEDURE: 1. SVT/AF surveillance [...] the sternum on the left using the [employer] tool. The loop recorder was then [...] incision. Yoseph Mcintosh MD Cardiac Electrophysiology. [facility] Progress note 04-24-2023 Note Date & [...] that co (more content not included)... [facility] Clinical Note 06-19-2022 Note Date & [...] dreaming in association with her activity. 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 Nutrition/Health Caffeine intake amount: 20 [...] Jaret DIAZ Isabella Coco 06/19/22 15:39 EST [facility] Evaluation note Note Date & Type Note Facility Evaluation note Diagnosis Pre-op examination Uterine leiomyoma, unspecified location documented in this encounter [facility] Summary Purpose Family History No Family History [...] section and content) DATE CREATED AUTHOR 07/04/2021 [facility] DATE CREATED AUTHOR AUTHOR'S ORGANIZ ATION 2021 [facility] DATE CREATED AUTHOR AUTHOR'S ORGANIZ ATION 06/21/2022 [facility] DATE CREATED AUTHOR AUTHOR'S ORGANIZ ATION 12/15/2022 [facility] DATE CREATED AUTHOR AUTHOR'S ORGANIZ ATION 01/18/2024 [facility] DATE CREATED AUTHOR AUTHOR'S ORGANIZ ATION 01/18/2024 [facility] Care Teams (unrecognized sec tion and content) Upholstery Parts Sorter Relationship Specialty Start Date End Date Adebayo Solares MD [address] [place] [id number] PCP - General Family Medicine 11/19/23 Upholstery Parts Sorter Relationship Specialty Start Date End Date Adebayo Solares MD [address] [place] [id number] PCP - General Family Medicine 11/19/23 Reason for Visit (unrecogniz ed section and content) Reason Comments Pre-op Visit FOR RECORDS PERTAINING TO PATIENTS WHO ARE [...] BE BASED ON THE PRIMARY CLINICAL RECORDS. [employer]. provides no warranty or guarantee of the accuracy or completeness of information in this document.
[2024-01-30 08:43] LABS: Basophils Absolute Auto 0.1 10^3/uL (0.0-0.1); Basophils Percent Auto 0.7 % (0.2-2.0); Eosinophils Absolute Auto 0.3 10^3/uL (0.0-0.7); Eosinophils Percent Auto 3.7 % (0.9-7.0); Hematocrit 42.2 % (36.0-48.0); Immature Granulocytes Abs Auto 0.01 10^3/uL (0.00-0.03); Immature Granulocytes Pct Auto 0.1 % (0.0-0.5); Lymphocytes Absolute Auto 2.6 10^3/uL (1.2-3.8); Lymphocytes Percent Auto 37.7 % (20.5-60.0); Mean Corpuscular HGB Conc 33.2 g/dL (29.9-35.2); Mean Corpuscular Hemoglobin 28.1 pg (26.7-34.0); Mean Corpuscular Volume 84.6 fL (81.0-99.0); Mean Platelet Volume 9.8 fL (9.5-13.5); Monocytes Absolute Auto 0.4 10^3/uL (0.3-0.8); Monocytes Percent Auto 5.9 % (1.7-12.0); Neutrophils Absolute Auto 3.6 10^3/uL (1.4-6.5); Neutrophils Percent Auto 51.9 % (43.0-75.0); Platelet Count 438 10^3/uL (150-450); Red Blood Count 4.99 10^6/uL (4.20-5.40); Red Cell Distribution Width 13.2 % (11.0-15.0)
[2024-01-30 09:02] LABS: Estimated Average Glucose 114 mg/dL; Glycohemoglobin A1C 5.6 % (4.5-6.2)
[2024-01-30 09:20] LABS: Free T4 1.13 ng/dL (0.76-1.46)
[2024-01-30 09:25] LABS: HCG Quantitative <1 mIU/mL; Thyroid Stimulating Hormone 1.751 uIU/mL (0.358-3.740)
[2024-01-31 08:13] LABS: FSH 5.7 mIU/mL (.); Luteinizing Hormone(LH) 9.9 mIU/mL (.)
[2024-02-02 01:07] LABS: Anti-Mullerian Hormone (AMH) 1.85 ng/mL (.)
[2024-02-04 14:09] LABS: DHEA, Serum 473 ng/dL (31-701)
== END 2024-01-30 08:04 | disposition home or self-care (01) ==
LOC: PST 08:03
PROVIDERS: PCP Family Medicine; Visit Provider Obstetrics & Gynecology
DX: Z01.812 Encounter for preprocedural laboratory examination (principal); D25.9 Leiomyoma of uterus, unspecified; E28.2 Polycystic ovarian syndrome; N97.9 Female infertility, unspecified; N93.8 Other specified abnormal uterine and vaginal bleeding
CPT/HCPCS: 36415; 82397; 82626; 82627; 83001; 83002; 83036; 84436; 84439; 84443; 84702; 85025

== ENCOUNTER 2024-02-08 08:32 | Day surgery (SDC) | payer BC, SELFPAY ==
[2024-01-30 08:36] VITALS: BP 126/88; PULSE 88; TEMP 36.3; O2SAT 96; BMI 37.9
[2024-02-08] VITALS (10 sets, daily range): BP systolic 121–138; BP diastolic 77–97; PULSE 79–112; TEMP 36.4–36.6; O2SAT 16–98; BMI 37.6
[2024-02-08 08:40] LABS: Basophils Absolute Auto 0.1 10^3/uL (0.0-0.1); Basophils Percent Auto 0.8 % (0.2-2.0); Eosinophils Absolute Auto 0.3 10^3/uL (0.0-0.7); Eosinophils Percent Auto 3.5 % (0.9-7.0); Hematocrit 41.9 % (36.0-48.0); Hemoglobin 13.8 g/dL (12.0-16.0); Immature Granulocytes Abs Auto 0.02 10^3/uL (0.00-0.03); Immature Granulocytes Pct Auto 0.3 % (0.0-0.5); Lymphocytes Absolute Auto 2.5 10^3/uL (1.2-3.8); Lymphocytes Percent Auto 31.1 % (20.5-60.0); Mean Corpuscular HGB Conc 32.9 g/dL (29.9-35.2); Mean Corpuscular Hemoglobin 27.7 pg (26.7-34.0); Mean Platelet Volume 9.6 fL (9.5-13.5); Monocytes Absolute Auto 0.5 10^3/uL (0.3-0.8); Monocytes Percent Auto 6.6 % (1.7-12.0); Neutrophils Absolute Auto 4.6 10^3/uL (1.4-6.5); Neutrophils Percent Auto 57.7 % (43.0-75.0); Platelet Count 429 10^3/uL (150-450); Red Blood Count 4.99 10^6/uL (4.20-5.40); Red Cell Distribution Width 13.2 % (11.0-15.0)
--- OUTSIDE RECORDS SUMMARY | 2024-02-08 08:52 | XMS_ITS | CCD ---
Author Organization [facility] Care Team Providers Care Charge Account Authorizer Name Role Phone BECK, DR ADEBAYO Oropeza [...] Unavailable Solares, Adebayo Primary Care Unavailable Jaret EDUCATION FACULTY MEMBER-CRIME LAB ANALYST, Isabella Sepulveda Attending Unavaila ble Solares, Adebayo Primary Care Unavailable Jaret EDUCATION FACULTY MEMBER-CRIME LAB ANALYST, Isabella Sepulveda Attending Unavaila ble Solares, Adebayo Primary Care Unavailable Solares, Adebayo Consulting Unavailable Solares, Adebayo Referring Unavailable LILIANAAZEMEKA Arevalo Referring Unavailable TESSY JEFFREY Attending Unavailable RIDDHI, KENN Attending Unavailable RIDDHI, KENN Attending Unavailable CHALINO, VIRAL Referring Unavailable CHALINO, VIRAL Referring Unavailable CHALINO, VIRAL Referring Unavailable CHALINO, VIRAL Referring Unavailable TRENTYOSEPH Admitting Unavailable TRENTYOSEPH Attending Unavailable TRENT, YOSEPH Attending Unavailable TRENT, YOSEPH Attending Unavailable PAOLAGRAEME Attending Unavailable CHALINO, VIRAL Referring Unavailable TRENT, YOSEPH Referring Unavailable CHALINO, VIRAL Referring Unavailable Solares Adebayo GOYAL Primary Care Provider Allergies Allergy Classification Reported Allergen(s) Allergy Type Date of Onset Reaction(s) Facility (1 source) No Known Medication Allergies; Translations: [No Known Medication Allergies] Propensity to adverse reactions to drug (disorder) [facility] Repository Medications Current Medications Medication Drug Class(es) Dates Sig (Normalized) Sig (Original) metFORMIN hydrochloride 500 mg oral tablet (3 sources) Biguanide Start: 12-25-2023 End: 2024 take 1 tablet by mouth at mealtime metFORMIN (Glucophage) 500 MG tablet Indications: PCOS (polycystic ovarian syndrome) Take 1 tablet (500 mg) by mouth in the morning. Take with meals. 30 tablet 11 12/25/2023 2024 Active omeprazole 40 mg delayed release oral capsule (3 sources) Proton Pump Inhibitor omeprazole (PriLOSEC) 40 [...] Test Name Value Interpretation Reference Range Facility ALL CBC WITH AUTO DIFFon BASOPHILS ABSOLUTE AUTO 0.1 [facility] Basophils/100 WBC (Bld) 0.7 % 0.2 - 2.0 % [facility] Eosinophils/100 WBC (Bld) 3.7 % 0.9 - 7.0 % [facility] Erythrocyte distribution width (RBC) [Ratio] 13.2 % 11.0 - 15.0 % [facility] Hematocrit (Bld) [Volume fraction] 42.2 % 36.0 - 48.0 % [facility] Hemoglobin (Bld) [Mass/Vol] 14 g/dL 12.0 - 16.0 g/dL [facility] IMMATURE GRANULOCYTES ABS AUTO 0.01 [facility] Immature granulocytes/100 WBC (Bld) 0.1 % 0.0 - 0.5 % [facility] LYMPHOCYTES ABSOLUTE AUTO 2.6 [facility] Lymphocytes/100 WBC (Bld) 37.7 % 20.5 - 60.0 % [facility] MCH (RBC) [Entitic mass] 28.1 pg 26.7 - 34.0 pg [facility] MCHC (RBC) [Mass/Vol] 33.2 g/dL 29.9 - 35.2 g/dL [facility] MCV (RBC) [Entitic vol] 84.6 fL 81.0 - 99.0 fL [facility] MONOCYTES ABSOLUTE AUTO 0.4 [facility] Monocytes/100 WBC (Bld) 5.9 % 1.7 - 12.0 % [facility] NEUTROPHILS ABSOLUTE AUTO 3.6 [facility] Neutrophils/100 WBC (Bld) 51.9 % 43.0 - 75.0 % [facility] Platelet mean volume (Bld) [Entitic vol] 9.8 fL 9.5 - 13.5 fL [facility] EO # 0.3 [facility] PLT 438 [facility] RBC 4.99 [facility] WBC 7 [facility] Office Visiton 12-25-2023 Follow-up visit [id number] Andressa Prasad 1990 F Date Provider Department Center 12/25/2023 YOSEPH WALTER BEBETO [place] Family History Problem Relation Age of Onset Atrial fibrillation Mother Diabetes Father Kidney disease Father Heart attack Maternal Grandmother Family Status - Relation Status Age at Mother Father Maternal Grandmother Level of Service:83502 [place] OFFICE/OUTPATIENT ESTABLISHED LOW MDM 20 MIN Normal [facility] Office Visiton 09-19-2023 Follow-up visit [id number] Andressa Prasad 1990 F Date Provider Department Center 09/19/2023 [id number], SAMAR BH CARD [facility] Family History Problem Relation Age of Onset Atrial fibrillation Mother Diabetes Father Kidney disease Father Heart attack Maternal Grandmother Family Status - Relation Status Age at Mother Father Maternal Grandmother Level of Service:71083 [place] OFFICE/OUTPATIENT ESTABLISHED MOD MDM 30 MIN Normal [facility] HPon 06-18-2023 [facility] Electrophysiology Consult Note Reason for visit: Palpitations HPI: Andressa Prasad is a 32 y.o. year old [...] symptoms t (more content not included)... Normal [facility] NURSNOTEon 06-18-2023 NURSNOTE RN educated pt on d/ c instructions. RN encouraged pt to voice any questions or concerns. Pt verbalizes no questions or concerns at this time. Pt was wheeled off of unit with all of belongings. Normal [facility] Office Visiton 04-24-2023 Follow-up visit [id number] Andressa Prasad 1990 F Date Provider Department Center 04/24/2023 YOSEPH WALTER BEBETO [facility] Family History Problem Relation Age of Onset Atrial fibrillation Mother Diabetes Father Kidney disease Father Heart attack Maternal Grandmother Family Status - Relation Status Age at Mother Father Maternal Grandmother Level of Service:32254 [place] OFFICE/OUTPATIENT NEW MODERATE MDM 45 MINUTES Normal [facility] Sleep Medicine Consultationo n 05-16-2022 Sleep [...] She can be sleepy during the day. Warren Sleepiness Scale score: 12. She is sleepy [...] her clinical (more content not included)... Normal [facility] CT HEAD WO CONon 12-21-2021 CT HEAD [...] by: CARLOS GALE Date: 2021-12-21 07:[address] [facility] [address] TEMPORAL BONES WO CONon 0 [...] foramen are normal. Visualized paranasal sinuses clear. Hall Worker spaces normal. Orbital contents unremarkable. Posterior fossa structures normal. IMPRESSION: Normal CT of the temporal bones. Electronically authenticated by: LOUIS BRAY Date: 2021-12-21 16:11 Normal [facility] Comprehensive Metabolic Empo n 05-10-2021 Albumin [Mass/Vol] 4.1 g/dL Normal 3.2-5.5 [facility] Comment on above: Performed By: #### E BS LIPID, EBS A1C, EBS CMP #### [facility] [address] Albumin/Globulin [Mass ratio] 1.3 {ratio} Normal [facility] Comment on above: Performed By: #### E BS LIPID, EBS A1C, EBS CMP #### [facility] [address] [place] [address] [place] ALP [Catalytic activity/Vol] 77 U/L Normal 32-92 [facility] Comment on above: Performed By: #### E BS LIPID, EBS A1C, EBS CMP #### [facility] [address] [place] [address] [place] ALT [Catalytic activity/Vol] 19 U/L Normal 10-60 [facility] Comment on above: Performed By: #### E BS LIPID, EBS A1C, EBS CMP #### [facility] [address] AST [Catalytic activity/Vol] 18 U/L Normal 10-42 [facility] Comment on above: Performed By: #### E BS LIPID, EBS A1C, EBS CMP #### [facility] [address] Bilirubin [Mass/Vol] 0.3 mg/dL Normal 0.3-1.2 [facility] Comment on above: Performed By: #### E BS LIPID, EBS A1C, EBS CMP #### [address] Calcium [Mass/Vol] 9.2 mg/dL Normal 8.2-10.2 [facility] Comment on above: Performed By: #### E BS LIPID, EBS A1C, EBS CMP #### [place] [address] [place] Chloride [Moles/Vol] 104 mmol/L Normal 95-114 [facility] Comment on above: Performed By: #### E BS LIPID, EBS A1C, EBS CMP #### [place] [address] [place] CO2 [Moles/Vol] 24.1 mmol/L Normal 22.0-30.0 [facility] Comment on above: Performed By: #### E BS LIPID, EBS A1C, EBS CMP #### [place] [address] [place] Creatinine [Mass/Vol] 0.69 mg/dL Normal 0.44-1.03 [facility] Comment on above: Performed By: #### E BS LIPID, EBS A1C, EBS CMP #### [facility] [address] [place] [address] [place] Estimated GFR ( Liz > 60 Normal [facility] Comment on above: Result Comment: GFR estimated reference range: According to KDOQI guidelines, <60 ml/min/1.73m2 is sufficient to diagnose a patient with chronic kidney disease. Performed By: #### E BS LIPID, EBS A1C, EBS CMP #### [facility] [address] [place] [address] [place] Estimated GFR (Non- Am > 60 Normal [facility] Comment on above: Performed By: #### E BS LIPID, EBS A1C, EBS CMP #### [address] Globulin (S) [Mass/Vol] 3.1 g/dL Normal [facility] Comment on above: Performed By: #### E BS LIPID, EBS A1C, EBS CMP #### [address] Glucose [Mass/Vol] 106 mg/dL High 70-100 [facility] Comment on above: Result Comment: ADA recommended reference range Performed By: #### E BS LIPID, EBS A1C, EBS CMP #### [address] Potassium [Moles/Vol] 4.0 mmol/L Normal 3.5-5.1 [facility] Comment on above: Performed By: #### E BS LIPID, EBS A1C, EBS CMP #### [place] [address] [place] Protein [Mass/Vol] 7.2 g/dL Normal 6.1-7.9 [facility] Comment on above: Performed By: #### E BS LIPID, EBS A1C, EBS CMP #### [place] [address] [place] Sodium [Moles/Vol] 137 mmol/L Normal 136-146 [facility] Comment on above: Performed By: #### E BS LIPID, EBS A1C, EBS CMP #### [place] [address] [place] Urea nitrogen [Mass/Vol] 10 mg/dL Normal 9-23 [facility] Comment on above: Performed By: #### E BS LIPID, EBS A1C, EBS CMP #### [facility] [address] EBS A1C with Estimated Avsaad hayes 05-10-2021 Glucose [Mass/Vol] 111 mg/dL Normal [facility] Comment on above: Result Comment: PERF ORMED BY: [facility] [address] [facility] [address] [place] [address] PATHOLOGIST INSPECTOR [employer]YEGLASS JERRY RAMSEY M.D. Performed By: #### E BS LIPID, EBS A1C, EBS CMP #### [facility] [address] HbA1c (Bld) [Mass fraction] 5.5 % Normal 4.3-5.6 [facility] Comment on above: Result Comment: Incr eased risk for diabetes: 5.7 - 6.4 diabetes: >6.4 glycemic control for adults with diabetes: <7.0 Performed By: #### E BS LIPID, EBS A1C, EBS CMP #### [facility] [address] [place] [id number] [facility] Lipid Profileon 05-10-2021 Cholesterol [Mass/Vol] 202 mg/dL High 140-200 [facility] Comment on above: Result Comment: Chol less than 200 mg/dl low risk Chol 201-239 mg/dl borderline risk Chol 240 mg/dl and greater high risk Performed By: #### E BS LIPID, EBS A1C, EBS CMP #### [facility] [address] Cholesterol in HDL [Mass/Vol] 37 mg/dL Normal 35-85 [facility] Comment on above: Result Comment: HDL CHOL ATP-III CLASSIFICATION Cardiovascular Risk HDL > or equal to 60 mg/dL LOW HDL < 40 mg/dL HIGH Performed By: #### E BS LIPID, EBS A1C, EBS CMP #### [facility] [address] Cholesterol.total/C holesterol in HDL [Mass ratio] 5.5 {ratio} Normal <5.0 [facility] Comment on above: Result Comment: PERF ORMED BY: [place] [address] PATHOLOGIST INSPECTOR EYEGLASS JERRY RAMSEY M.D. Performed By: #### E BS LIPID, EBS A1C, EBS CMP #### [facility] [address] LDL Cholesterol,Calcula jasbir 125 mg/dL High 0-100 [facility] Comment on above: Result Comment: LDL ATP III CLASSIFICATION LDL less than 100 mg/dL Optimal LDL 100-129 mg/dL Near or above optimal LDL 130-159 mg/dL Borderline high LDL 160-189 mg/dL High LDL greater than 189 mg/dL Very high Performed By: #### E BS LIPID, EBS A1C, EBS CMP #### [address] Triglyceride w/Reflex 199 mg/dL High 35-149 [facility] Comment on above: Result Comment: TRIG ATP III CLASSIFICATION TRIG less than 150 mg/dL Normal TRIG 150-199 mg/dL Borderline high TRIG 200-500 mg/dL High TRIG greater than 500 mg/dL Very high Standard traceable to the Center for Disease Conrtrol and Prevention (CDC) test method. Performed By: #### E BS LIPID, EBS A1C, EBS CMP #### [address] VLDL CHOLESTEROL 39 mg/dL Normal [facility] Comment on above: Performed By: #### E BS LIPID, EBS A1C, EBS CMP #### [address] Vital Signs Date Time Vital Sign Value Performing Clinician Ronaldo hernandesy 01-16-2024 16:38-0400 Body height 182.9 cm [employer] Work Phone: [facility] 01-16-2024 16:38-0400 Body mass index (BMI) [Ratio] 37.57 kg/m2 [employer] Work Phone: [facility] 01-16-2024 16:38-0400 Body weight 125.65 kg [employer] Work Phone: [facility] 01-16-2024 16:38-0400 Diastolic blood pressure 80 mm[Hg] Kenn Riddhi DO Work Phone: [facility] 01-16-2024 16:38-0400 Systolic blood pressure 124 mm[Hg] Kenn Riddhi DO Work Phone: [facility] Encounters Encounter Date Encounter Type Care Provider Facility Start: 01-30-2024 End: 01-30-2024 Clinisync Result Encounter Kenn Riddhi DO Work Phone: [facility] Unsolicited Start: 01-30-2024 End: 01-30-2024 Clinisync Result Encounter Kenn Riddhi DO Work Phone: [facility] Unsolicited Start: 01-16-2024 ambulatory [facility] Start: 01-16-2024 End: 01-16-2024 Office outpatient visit 15 minutes Kenn Riddhi DO Work Phone: [facility] Comment on above: Pre-op examination; Uterine leiomyoma, unspecified location Start: 01-16-2024 End: 01-16-2024 Preprocedural examination done Kenn Riddhi DO Work Phone: [facility] Start: 01-16-2024 End: 01-16-2024 ambulatory KENN RIDDHI Not Available Start: 01-16-2024 End: 01-16-2024 Bamboo flowsheet Kenn Riddhi DO Work Phone: [facility] Start: 01-16-2024 End: 01-16-2024 Bamboo flowsheet Kenn Riddhi DO Work Phone: [facility] Start: 12-25-2023 End: 12-25-2023 ambulatory KENN RIDDHI Not Available Start: 11-20-2023 ambulatory YOSEPH MCINTOSH [facility] Start: 11-19-2023 End: 11-19-2023 ambulatory TESSY JEFFREY Not Available Start: 10-10-2023 ambulatory [facility] Start: 10-02-2023 ambulatory VIRAL ALLRED [facility] Start: 09-19-2023 ambulatory GRAEME GUEVARA [facility] Start: 06-18-2023 End: 06-18-2023 ambulatory [facility] Start: 04-24-2023 End: 04-24-2023 ambulatory [facility] Start: 12-12-2022 End: 12-15-2022 ambulatory MEEKA [facility] Start: 06-19-2022 End: 06-20-2022 ambulatory Isabella Raygoza EDUCATION FACULTY MEMBER-CRIME LAB ANALYST Facility:[facility] Start: 05-30-2022 End: 05-31-2022 ambulatory Adebayo Latham DO Facility:[facility] Start: 05-16-2022 End: 05-17-2022 ambulatory Isabella Raygoza APRN-CRIME LAB ANALYST Facility:[facility] Start: 12-20-2021 End: 12-21-[address] ADEBAYO SOLARES Facility:[facility] Start: 11-15-2021 End: 11-16-[address] ADEBAYO SOLARES Facility:[facility] Procedures Date Procedure Procedure Detail Performing Clinician Start: 01-30-2024 ALL CBC WITH AUTO DIFF Kenn Hannon DO Work Phone: Start: 05-17-2012 Microscopic observat ion [Identifier] in Cervix by Cyto stain Kenn Hannon DO Work Phone: Plan of Treatment Date Care Activity Detail Author Start: 01-16-2024 End: 01-16-2024 Patient encounter procedure 01/16/2024 4:00 PM EDT Consult [facility] [address] [place] [address] Kenn Hannon DO [address] [place], [place] [id number] Arrived [facility] Comment on above: Arrived Start: 12-16-2023 Influenza vaccination Influenza Vacc ine (#1) [facility] Start: 05-17-2017 Screening for malign ant neoplasm of cervix [facility] Immunizations Immunization Date Immunization Notes Care Provider Eunice martinez 02-12-2023 influenza virus vacc ine, unspecified formulation Kenn Hannon DO Work Phone: [facility] Payers Date Payer Category Payer [facility] [id number] 2023 Unknown [id number] 2022 Unknown 2021 Self-pay 2019 Unknown [id number] 1990 Unknown [id number] 1990 Unknown [id number] 1990 Unknown [id number] 1990 Unknown [id number] 1990 Unknown [id number] 1990 Unknown [id number] 1990 Unknown [id number] .[id number] 1990 Unknown [id number] 1990 Unknown [id number] 1958 Unknown [id number] Social History Date Type Detail Facility Start: 11-19-2023 Tobacco smoking stat [facility] Never smoked tobacco [facility] Start: 11-19-2023 Tobacco use and exposure Smoke less tobacco non-user [facility] Start: 12-25-2023 End: 01-16-2024 Alcoholic beverage intake Lifetime non-drinker (finding) [facility] Start: 11-19-2023 History of Social function [facility] Start: 11-19-2023 Tobacco use panel [facility] Start: 1990 Sex assigned at Not on file [facility] History of Present illness Narrative 01-16-2024 Karuna Rivera - 01/16/2024 4:00 PM EDT Note Date & Type Note Facility 01-16-2024 History of Presen t illness Narrative Reason for Appointment: Patient ID: Andressa Prasad is a 33 y.o. female who presents for Pre-op Visit Patient presents today for Pre Op appointment. Patient is scheduled to undergo D&C Hysteroscopy, possible Myosure on 02/08/[address] Hannon at [facility]. MEDICATIONS Current Outpatient Medications Medication Instructions metFORMIN (GLUCOPHAGE) 500 mg, Oral, Daily with breakfast omeprazole (PRILOSEC) 20 mg, Oral, Daily before breakfast ALLERGIES No Known Allergies PROBLEMS Active Ambulatory Problems Diagnosis Date Noted No Active Ambulatory Problems Resolved Ambulatory Problems Diagnosis Date Noted No Resolved Ambulatory Problems Past Medical History: Diagnosis Date Fibrocystic breast 2012 Rectal bleeding October 15, 2023 HISTORY PAST MEDICAL HISTORY SOCIAL HISTORY Past Medical History: Diagnosis Date Fibrocystic breast 2012 Rectal bleeding October 15, 2023 Social History Tobacco Use Smoking status: Never Smokeless tobacco: Never Substance Use Topics Alcohol use: Never Drug use: Never FAMILY HISTORY Family History Problem Relation Name Age of Onset Arthritis Father Adebayo Marco Diabetes Father Adebayo Marco Hyperlipidemia Father Adebayo Marco Hypertension Father Adebayo Marco Kidney disease Father Adebayo Marco Stroke Father Adebayo Marco Diabetes Maternal Grandfather James [place] Hypertension Maternal Grandmother Sandy [place] Diabetes Paternal Grandfather Rito Lara Kidney disease Paternal Grandfather Rito Lara SURGICAL HISTORY Past Surgical History: Procedure Laterality [...] reviewed, and patient is to proceed to [facility] OR. Follow Up: Patient is to follow up between 1-2 weeks post operative to assess proper healing and recovery from procedure. Documented by Katarzyna Malagon LPN on behalf of: Kenn Hannon DO documented in this encounter [facility] Progress note 12-25-2023 Note Date & [...] 17, 2023. He has episodes in November 18 and which are at the rate of 170 beats a minute. patient usually exercises between 6 to 7 PM and most of the elevated heart rates are in this time. There are 2-3 episodes which have not correlating to exercise. HPI: Andressa Prasad is a 33 y.o. year old [...] on file Intimate Partner Violence: Unknown (06/07/2023) [place] Safety & Environment Fear of Current or [...] not heard Diastolic (more content not included)... [facility] Progress note 09-19-2023 Note Date & Type Note Facility 09-19-2023 Note [facility] Note Reason for cardiology consult: Patient here for 3 mo follow up post loop insertion. HPI: Andressa Prasad is a 32 y.o. female with [...] Follow-up in 3 months Graeme Guevara MD, [facility] Procedure note 06-18-2023 Note Date & Type Note Facility 06-18-2023 Note LOOP IMPLANT PROCEDU RE NOTE DATE OF PROCEDURE: 06/18/23 PERFORMING PHYSICIAN: Dr. Yoseph Mcintosh VENDING MACHINE SERVICER: BALWINDER INDICATIONS FOR PROCEDURE: 1. SVT/AF surveillance [...] the sternum on the left using the [employer] tool. The loop recorder was then injected [...] the incision. Yoseph Mcintosh MD Cardiac Electrophysiology. [facility] Progress note 04-24-2023 Note Date & Type Note Facility 04-24-2023 Note Try to bring the berhane nt monitor [facility] Consult Note Reason for visit: Palpitations HPI: Andressa Prasad is a 32 y.o. year old [...] symptoms that co (more content not included)... [facility] Clinical Note 06-19-2022 Note Date & [...] dreaming in association with her activity. 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 Nutrition/Health Caffeine intake amount: 20 [...] signed by Isabella Grant 06/19/22 15:39 EST [facility] Evaluation note Note Date & Type Note [...] section and content) DATE CREATED AUTHOR 07/04/2021 [facility] DATE CREATED AUTHOR AUTHOR'S ORGANIZ ATION 2021 [facility] DATE CREATED AUTHOR AUTHOR'S ORGANIZ ATION 06/21/2022 [facility] DATE CREATED AUTHOR AUTHOR'S ORGANIZ ATION 12/15/2022 [facility] DATE CREATED AUTHOR AUTHOR'S ORGANIZ ATION 01/18/2024 [facility] EPIC DATE CREATED AUTHOR AUTHOR'S ORGANIZ ATION 01/18/2024 [facility] Care Teams (unrecognized sec tion and content) Charge Account Authorizer Relationship Specialty Start Date End Date Adebayo Solares MD [address] [place] [address] PCP - General Family Medicine 11/19/23 Charge Account Authorizer Relationship Specialty Start Date End Date Adebayo Solares MD [address] [place] [address] PCP - General Family Medicine 11/19/23 Charge Account Authorizer Relationship Specialty Start Date End Date Adebayo Solares MD [address] [place] [address] PCP - General Family Medicine 11/19/23 Reason [...] BE BASED ON THE PRIMARY CLINICAL RECORDS. [employer] provides no warranty or guarantee of the accuracy or completeness of information in this document.
[2024-02-08] MEDS: LACTATED RINGER'S SOLUTION 1,000 ML 50 ML IV (09:03)
[2024-02-08 09:06] LABS: HCG Quantitative <1 mIU/mL
--- NOTE | 2024-02-08 11:40 | PM.ONB ---
Brief Operative Note Date of procedure: 02/08/24 Pre-op diagnosis general: menorrhagia, thickend lining Post-op diagnosis: same as pre-op Procedure: NAME OF PROCEDURE: [d&c hysteroscopy] PROCEDURE: The patient was taken back to the Operating Room where she was prepped and draped in normal sterile fashion after being placed under general anesthesia without difficulty. She was also placed in the dorsal lithotomy position. A weighted speculum was placed in the patient?s vagina. The anterior lip of the cervix was identified and grasped with a single tooth tenaculum. The patient?s uterus was then sounded roughly to [? ] cm. The patient was then gently dilated using Hegar dilators. The hysteroscope was passed through the patient?s cervix into the uterus. Both ostia were identified. Normal appearing endometrium. No gross evidence of polyps, fibroids or malignancy. The hysteroscope was then removed from the patient's uterus.? At that point, gentle curettage was performed until a gritty texture was noted. The endometrial curettings were sent out to pathology.? The single tooth tenaculum was then removed from the patient's anterior lip of the cervix where excellent hemostasis was noted. Anesthesia: MAC Surgeon: Miguel Hannon Estimated blood loss (mL): 5 Pathology: other (endometrial currettings) Condition: stable Disposition: PACU Urinary Catheter Management Urinary Catheter Management Urethral: Cath placed during this visit: no
== END 2024-02-08 12:50 | disposition home or self-care (01) ==
PROVIDERS: PCP Family Medicine; Visit Provider Obstetrics & Gynecology
PROC: (CPT 952; principal; 2024-02-08 09:40)
DX: D25.9 Leiomyoma of uterus, unspecified (principal); N92.0 Excessive and frequent menstruation with regular cycle; K21.9 Gastro-esophageal reflux disease without esophagitis
CPT/HCPCS: 58558; 36415; 84702; 85025; 88305; J1100; J1885; J2250; J2405; J2704; J3010

== ENCOUNTER 2024-05-17 08:03 | Outpatient (RCR) | payer BC, SELFPAY ==
--- OUTSIDE RECORDS SUMMARY | 2024-05-17 08:05 | XMS_ITS | CCD ---
Author Organization [facility] Care Team Providers Care 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 Name Role Phone BECK, DR ADEBAYO Oropeza Primary Care Unavailable SOLARES, DR ADEBAYO Oropeza Consulting Unavailable SOLARES, DR ADEBAYO Oropeza Attending Unavailable SOLARES, DR ADEBAYO Oropeza Admitting Unavailable Zieber, DR Ge Consulting Unavailable GLATZLOUIS Consulting Unavailable SOLARES, DR ADEBAYO Oropeza Primary Care Unavailable SOLARES, DR ADEBAYO Oropeza Consulting Unavailable SOLARES, DR ADEBAYO Oropeza Attending Unavailable SOLARES, DR ADEBAYO Oropeza Admitting Unavailable Sak DOAdebayo Attending Unavailable Solares, Adebayo Primary Care Unavailable Jaret TERMITE INSPECTOR-ONLINE EDUCATION MANAGERIsabella Attending Unavaila ble SolaresAdebayo Primary Care Unavailable Jaret TERMITE INSPECTOR-ONLINE EDUCATION MANAGERIsabella Attending Unavaila ble Solares, Adebayo Primary Care Unavailable SolaresAdebayo Consulting Unavailable SolaresAdebayo Referring Unavailable LILIANAAZEMEKA Arevalo Referring Unavailable Solares Adebayo GOYAL Primary Care Provider TESSY ARAIZA Attending Unavailable RIDDHIKENN Attending Unavailable RIDDHIKENN Attending Unavailable MAUREEN FELIZ Attending Unavailable CHALINO, VIRAL Referring Unavailable TRENTYOSEPH Referring Unavailable TRENTYOSEPH Referring Unavailable CHALINO, VIRAL Referring Unavailable GRAEME GUEVARA Attending Unavailable TRENTYOSEPH Attending Unavailable CHALINO, VIRAL Referring Unavailable TRENT, YOSEPH Referring Unavailable CHALINO, VIRAL Referring Unavailable CHALINO, VIRAL Referring Unavailable CHALINO, VIRAL Referring Unavailable CHALINO, VIRAL Referring Unavailable TRENTYOSEPH Admitting Unavailable TRENTYOSEPH Attending Unavailable TRENTYOSEPH Referring Unavailable TRENT, YOSEPH Referring Unavailable Allergies Allergy Classification Reported Allergen(s) Allergy Type Date of Onset Reaction(s) Facility (1 source) No Known Medication Allergies; Translations: [No Known Medication Allergies] Propensity to adverse reactions to drug (disorder) [facility] Rep[facility] Medications Current Medications Medication Drug Class(es) Dates Sig (Normalized) Sig (Original) metFORMIN hydrochloride 500 mg oral tablet (9 sources) Biguanide Start: 12-25-2023 End: 2024 take 1 tablet by mouth at mealtime metFORMIN (Glucophage) 500 MG tablet Indications: PCOS (polycystic ovarian syndrome) Take 1 tablet (500 mg) by mouth in the morning. Take with meals. 30 tablet 12/25/2023 2024 Active omeprazole 40 mg delayed release oral capsule (11 sources) Proton Pump Inhibitor omeprazole (PriLOSEC) [address] capsule Take 20 mg by mouth in the morning. Take before meals. Active Problems Active Problems Problem Classification Problem Date Documented Da te Episodic/Chronic Benign neoplasm of uterus (1 source) Uterine leiomyoma; Translations: [Leiomyoma of uterus, unspecified] 01-16-2024 Episodic Female infertility (2 sources) Female infertility; Translations: [Female infertility, unspecified] 12-25-2023 Chronic Headache; including migraine (4 sources) Headache; including migraine; Translations: [HEADACHE UNSPECIFIED] Onset: 12-20-2021 Other aftercare (2 sources) Surgical follow-up; Translations: [Encounter for follow-up examination after completed treatment for conditions other than malignant neoplasm] 02-19-2024 Episodic Other circulatory disease (2 sources) Presence of other cardiac implants and grafts; Translations: [Presence of other cardiac implants and grafts] Onset: 09-19-2023 Chronic Other endocrine disorders (2 sources) Polycystic ovary syndrome; Translations: [Polycystic ovarian syndrome] 12-25-2023 Chronic Other female genital disorders (2 sources) Abnormal uterine bleeding; Translations: [Other specified abnormal uterine and vaginal bleeding] 12-25-2023 Chronic Residual codes; unclassified (2 sources) Obstructive sleep apnea (adult) (pediatric); Translations: [Obstructive sleep apnea (adult) (pediatric)] Onset: 04-24-2023 Chronic Past or Other Problems Problem Classification Problem Date Documented Da te Episodic/Chronic Cardiac dysrhythmias (7 sources) Palpitations; Translations: [PALPITATIONS] Onset: 11-15-2021 Episodic Syncope (3 sources) Syncope and collapse; Translations: [Syncope and collapse] Onset: 11-14-2022 Episodic Results Test Name Value Interpretation Reference Range Facility ALL CBC WITH AUTO DIFFon BASOPHILS ABSOLUTE AUTO 0.1 [facility] Basophils/100 WBC (Bld) 0.8 % 0.2 - 2.0 % [facility] Eosinophils/100 WBC (Bld) 3.5 % 0.9 - 7.0 % [facility] Erythrocyte distribution width (RBC) [Ratio] 13.2 % 11.0 - 15.0 % [facility] Hematocrit (Bld) [Volume fraction] 41.9 % 36.0 - 48.0 % [facility] Hem[facility] (Bld) [Mass/Vol] 13.8 g/dL 12.0 - 16.0 g/dL [facility] IMMATURE GRANULOCYTES ABS AUTO 0.02 [facility] Immature granulocytes/100 WBC (Bld) 0.3 % 0.0 - 0.5 % [facility] LYMPHOCYTES ABSOLUTE AUTO 2.5 [facility] Lymphocytes/100 WBC (Bld) 31.1 % 20.5 - 60.0 % [facility] MCH (RBC) [Entitic mass] 27.7 pg 26.7 - 34.0 pg [facility] MCHC (RBC) [Mass/Vol] 32.9 g/dL 29.9 - 35.2 g/dL [facility] MCV (RBC) [Entitic vol] 84 fL 81.0 - 99.0 fL [facility] MONOCYTES ABSOLUTE AUTO 0.5 [facility] Monocytes/100 WBC (Bld) 6.6 % 1.7 - 12.0 % [facility] NEUTROPHILS ABSOLUTE AUTO 4.6 [facility] Neutrophils/100 WBC (Bld) 57.7 % 43.0 - 75.0 % [facility] Platelet mean volume (Bld) [Entitic vol] 9.6 fL 9.5 - 13.5 fL [facility]H E[facility].3 [facility]T 429 [facility] TB RBC 4.99 [facility] WBC 8 [facility] ALL CBC WITH AUTO DIFFon BASOPHILS ABSOLUTE AUTO 0.1 [facility] Basophils/100 WBC (Bld) 0.7 % 0.2 - 2.0 % [facility] Eosinophils/100 WBC (Bld) 3.7 % 0.9 - 7.0 % [facility] Erythrocyte distribution width (RBC) [Ratio] 13.2 % 11.0 - 15.0 % [facility] Hematocrit (Bld) [Volume fraction] 42.2 % 36.0 - 48.0 % [facility] Hemoglobin (Bld) [Mass/Vol] 14 g/dL 12.0 - 16.0 g/dL [facility] IMMATURE GRANULOCYTES ABS AUTO 0.01 [facility] Immature granulocytes/100 WBC (Bld) 0.1 % 0.0 - 0.5 % [facility] LYMPHOCYTES ABSOLUTE AUTO 2.[address] [facility] Lymphocytes/100 WBC (Bld) 37.7 % 20.5 - 60.0 % [facility] MCH (RBC) [Entitic mass] 28.1 pg 26.7 - 34.0 pg [facility] MCHC (RBC) [Mass/Vol] 33.2 g/dL 29.9 - 35.2 g/dL [facility] MCV (RBC) [Entitic vol] 84.6 fL 81.0 - 99.0 fL [facility] MONOCYTES ABSOLUTE AUTO 0.4 [facility] Monocytes/100 WBC (Bld) 5.9 % 1.7 - 12.0 % [facility] NEUTROPHILS ABSOLUTE AUTO 3.6 [facility] Neutrophils/100 WBC (Bld) 51.9 % 43.0 - 75.0 % [facility] Platelet mean volume (Bld) [Entitic vol] 9.8 fL 9.5 - 13.5 fL [facility] TBH EO # 0.3 [facility] PLT 438 [facility] TB RBC 4.99 [facility] WBC 7 [facility] Visiton 12-25-2023 Follow-up visit [id number] Javid Prasad 1990 F Date Provider Department Center 12/25/2023 Maria G-YOSEPH MCINTOSH BEBETO Koehler Family History Problem Relation Age of Onset Atrial fibrillation Mother Diabetes Father Kidney disease Father Heart attack Maternal Grandmother Family Status - Relation Status Age at Mother Father Maternal Grandmother Level of Service:08042 [place] OFFICE/OUTPATIENT ESTABLISHED LOW MDM 20 MIN Normal [facility] Cytology Cervical or vaginal smear or scraping studyon 12-13-2023 [facility] HCG QUALITATIVE*on 4 TBH , QUAL Negative NEGATIVE [facility] Visiton 09-19-2023 Follow-up visit [id number] Javid Prasad 1990 F Date Provider Department Center 09/19/2023 [id number] KYLIEMADELEINE PASTRANA BEBETO [facility] Family History Problem Relation Age of Onset Atrial fibrillation Mother Diabetes Father Kidney disease Father Heart attack Maternal Grandmother Family Status - Relation Status Age at Mother Father Maternal Grandmother Level of Service:32052 [place] OFFICE/OUTPATIENT ESTABLISHED MOD MDM 30 MIN Normal [facility] HPon 06-18-2023 [facility] Electrophysiology Consult Note Reason for [...] of symptoms t (more content not included)... [facility] NURSNOTEon 06-18-2023 NURSNOTE RN educated pt on d/ c instructions. RN encouraged pt to voice any questions or concerns. Pt verbalizes no questions or concerns at this time. Pt was wheeled off of unit with all of belongings. [facility] Sleep Medicine Consultationo n 05-16-2022 Sleep Medicine [...] She can be sleepy during the day. Sibley Sleepiness Scale score: 12. She is sleepy [...] her clinical (more content not included)... Normal [facility] CT HEAD WO CONon 12-21-2021 CT HEAD [...] CARLOS GALE Date: 2021-12-21 07:15 Normal The [facility] CT TEMPORAL BONES WO CONon 0 12-21-2021 [...] foramen are normal. Visualized paranasal sinuses clear. Boot And Shoe Repairman spaces normal. Orbital contents unremarkable. Posterior fossa structures normal. IMPRESSION: Normal CT of the temporal bones. Electronically authenticated by: LOUIS BRAY Date: 2021-12-21 16:11 Normal [facility] Comprehensive Metabolic Empo n 05-10-2021 Albumin [Mass/Vol] 4.1 g/dL Normal 3.2-5.5 [facility] Comment on above: Performed By: #### E BS LIPID, EBS A1C, EBS CMP #### [facility] [address] [id number] [facility] Albumin/Globulin [Mass ratio] 1.3 {ratio} Normal [facility] Comment on above: Performed By: #### E BS LIPID, EBS A1C, EBS CMP #### [facility] [address] [place] [address] [place] ALP [Catalytic activity/Vol] 77 U/L Normal 32-92 [facility] Comment on above: Performed By: #### E BS LIPID, EBS A1C, EBS CMP #### [facility] [address] [place] [address] [place] ALT [Catalytic activity/Vol] 19 U/L Normal 10-60 [facility] Comment on above: Performed By: #### E BS LIPID, EBS A1C, EBS CMP #### [facility] [address] [place] [address] [place] AST [Catalytic activity/Vol] 18 U/L Normal 10-42 [facility] Comment on above: Performed By: #### E BS LIPID, EBS A1C, EBS CMP #### [facility] [address] [place] [address] [place] Bilirubin [Mass/Vol] 0.3 mg/dL Normal 0.3-1.2 [facility] Comment on above: Performed By: #### E BS LIPID, EBS A1C, EBS CMP #### [facility] [address] [place] [address] [place] Calcium [Mass/Vol] 9.2 mg/dL Normal 8.2-10.2 [facility] Comment on above: Performed By: #### E BS LIPID, EBS A1C, EBS CMP #### [facility] [address] [place] [address] [place] Chloride [Moles/Vol] 104 mmol/L Normal 95-114 [facility] Comment on above: Performed By: #### E BS LIPID, EBS A1C, EBS CMP #### [facility] [address] [place] [address] [place] CO2 [Moles/Vol] 24.1 mmol/L Normal 22.0-30.0 [facility] Comment on above: Performed By: #### E BS LIPID, EBS A1C, EBS CMP #### [facility] [address] [place] [address] [place] Creatinine [Mass/Vol] 0.69 mg/dL Normal 0.44-1.03 [facility] Comment on above: Performed By: #### E BS LIPID, EBS A1C, EBS CMP #### [facility] [address] [place] [address] [place] Estimated GFR ( Liz > 60 Normal [facility] Comment on above: Result Comment: GFR estimated reference range: According to KDOQI guidelines, <60 ml/min/1.73m2 is sufficient to diagnose a patient with chronic kidney disease. Performed By: #### E BS LIPID, EBS A1C, EBS CMP #### [facility] [address] [place] [address] [place] Estimated GFR (Non- Am > 60 Normal [facility] Comment on above: Performed By: #### E BS LIPID, EBS A1C, EBS CMP #### [facility] [address] [place] [address] [place] Globulin (S) [Mass/Vol] 3.1 g/dL Normal [facility] Comment on above: Performed By: #### E BS LIPID, EBS A1C, EBS CMP #### [facility] [address] [place] [address] Glucose [Mass/Vol] 106 mg/dL High 70-100 [facility] Comment on above: Result Comment: ADA recommended reference range Performed By: #### E BS LIPID, EBS A1C, EBS CMP #### [address] Potassium [Moles/Vol] 4.0 mmol/L Normal 3.5-5.1 [facility] Comment on above: Performed By: #### E BS LIPID, EBS A1C, EBS CMP #### [place] [address] [place] Protein [Mass/Vol] 7.2 g/dL Normal 6.1-7.9 [facility] Comment on above: Performed By: #### E BS LIPID, EBS A1C, EBS CMP #### [facility] [address] [place] [address] [place] Sodium [Moles/Vol] 137 mmol/L Normal 136-146 [facility] Comment on above: Performed By: #### E BS LIPID, EBS A1C, EBS CMP #### [place] [address] [place] Urea nitrogen [Mass/Vol] 10 mg/dL Normal 9-23 [facility] Comment on above: Performed By: #### E BS LIPID, EBS A1C, EBS CMP #### [facility] [address] [id number] [facility] EBS A1C with Estimated Ave Primo hayes 05-10-2021 Glucose [Mass/Vol] 111 mg/dL Normal [facility] Comment on above: Result Comment: PERF ORMED BY: [place] [address] PATHOLOGIST FUEL YARD OPERATOR JERRY RAMSEY M.D. Performed By: #### E BS LIPID, EBS A1C, EBS CMP #### [facility] [address] [id number] [facility] HbA1c (Bld) [Mass fraction] 5.5 % Normal 4.3-5.6 [facility] Comment on above: Result Comment: Incr eased risk for diabetes: 5.7 - 6.4 diabetes: >6.4 glycemic control for adults with diabetes: <7.0 Performed By: #### E BS LIPID, EBS A1C, EBS CMP #### [facility] [address] [id number] [facility] Lipid Profileon 05-10-2021 Cholesterol [Mass/Vol] 202 mg/dL High 140-200 [facility] Comment on above: Result Comment: Chol less than 200 mg/dl low risk Chol 201-239 mg/dl borderline risk Chol 240 mg/dl and greater high risk Performed By: #### E BS LIPID, EBS A1C, EBS CMP #### [facility] [address] [place] [id number] [facility] Cholesterol in HDL [Mass/Vol] 37 mg/dL Normal 35-85 [facility] Comment on above: Result Comment: HDL CHOL ATP-III CLASSIFICATION Cardiovascular Risk HDL > or equal to 60 mg/dL LOW HDL < 40 mg/dL HIGH Performed By: #### E BS LIPID, EBS A1C, EBS CMP #### [facility] [address] [id number] [facility] Cholesterol.total/C holesterol in HDL [Mass ratio] 5.5 {ratio} Normal <5.0 [facility] Comment on above: Result Comment: PERF ORMED BY: [facility] [address] [place] [address] PATHOLOGIST FUEL YARD OPERATOR JERRY RAMSEY M.D. Performed By: #### E BS LIPID, EBS A1C, EBS CMP #### [facility] [address] [place] [address] [place] LDL Cholesterol,Calcula jasbir 125 mg/dL High 0-100 [facility] Comment on above: Result Comment: LDL ATP III CLASSIFICATION LDL less than 100 mg/dL Optimal LDL 100-129 mg/dL Near or above optimal LDL 130-159 mg/dL Borderline high LDL 160-189 mg/dL High LDL greater than 189 mg/dL Very high Performed By: #### E BS LIPID, EBS A1C, EBS CMP #### [facility] [address] Triglyceride w/Reflex 199 mg/dL High 35-149 [facility] Comment on above: Result Comment: TRIG ATP III CLASSIFICATION TRIG less than 150 mg/dL Normal TRIG 150-199 mg/dL Borderline high TRIG 200-500 mg/dL High TRIG greater than 500 mg/dL Very high Standard traceable to the Center for Disease Conrtrol and Prevention (CDC) test method. Performed By: #### E BS LIPID, EBS A1C, EBS CMP #### [facility] [address] VLDL CHOLESTEROL 39 mg/dL Normal [facility] Comment on above: Performed By: #### E BS LIPID, EBS A1C, EBS CMP #### [facility] [address] [id number] [facility] Vital Signs Date Time Vital Sign Value Performing Clinician Ronaldo coello 02-19-2024 14:07-0500 Body mass index (BMI) [Ratio] 37.95 kg/m2 Maureen SINGLETON Work Phone: [facility] 02-19-2024 14:07-0500 Body weight 126.92 kg Maureen SINGLETON Work Phone: [facility] 02-19-2024 14:07-0500 Diastolic blood pressure 74 mm[Hg] Maureen SINGLETON Work Phone: [facility] 02-19-2024 14:07-0500 Systolic blood pressure 114 mm[Hg] Maureen SINGLETON Work Phone: [facility] 01-16-2024 16:38-0400 Body height 182.9 cm Kenn Riddhi DO Work Phone: [facility] 01-16-2024 16:38-0400 Body mass index (BMI) [Ratio] 37.57 kg/m2 Kenn Riddhi DO Work Phone: [facility] 01-16-2024 16:38-0400 Body weight 125.65 kg Kenn Riddhi DO Work Phone: [facility] 01-16-2024 16:38-0400 Diastolic blood pressure 80 mm[Hg] Kenn Riddhi DO Work Phone: [facility] 01-16-2024 16:38-0400 Systolic blood pressure 124 mm[Hg] Kenn Riddhi DO Work Phone: [facility] 12-25-2023 10:12-0400 Body height 182.9 cm Kenn Riddhi DO Work Phone: [facility] 12-25-2023 10:12-0400 Body mass index (BMI) [Ratio] 37.57 kg/m2 Kenn Riddhi DO Work Phone: [facility] 12-25-2023 10:12-0400 Body weight 125.65 kg Kenn Riddhi DO Work Phone: [facility] 12-25-2023 10:12-0400 Diastolic blood pressure 84 mm[Hg] Kenn Riddhi DO Work Phone: [facility] 12-25-2023 10:12-0400 Systolic blood pressure 122 mm[Hg] Kenn Riddhi DO Work Phone: [facility] Encounters Encounter Date Encounter Type Care Provider Facility Start: 04-21-2024 ambulatory [facility] Start: 04-14-2024 ambulatory [facility] Start: 03-07-2024 ambulatory VIRAL ALLRED [facility] Start: 02-25-2024 ambulatory [facility] Start: 02-19-2024 End: 02-19-2024 Bamboo flowsheet Maureen Feliz PA Work Phone: [facility] Start: 02-19-2024 End: 02-19-2024 Bamboo flowsheet Maureen Feliz PA Work Phone: [facility] Start: 02-19-2024 End: 02-19-2024 Postop follow up visit related to original px Maureen SINGLETON Work Phone: [facility] Comment on above: Postop check Start: 02-19-2024 End: 02-19-2024 ambulatory MAUREEN FELIZ Not Available Start: 02-14-2024 ambulatory [facility] Start: 02-08-2024 End: 02-08-2024 [facility] Result Encounter Kenn Riddhi DO Work Phone: [facility]solic[facility] Start: 02-08-2024 End: 02-08-2024 [facility] Result Encounter Kenn Riddhi DO Work Phone: [facility] Start: 01-30-2024 End: 01-30-2024 [facility] Result Encounter Kenn Riddhi DO Work Phone: [facility] Start: 01-30-2024 End: 01-30-2024 [facility] Result Encounter Kenn Riddhi DO Work Phone: [facility] Start: 01-16-2024 ambulatory VIRAL [facility] Start: 01-16-2024 End: 01-16-2024 Office outpatient visit 15 minutes Kenn Riddhi DO Work Phone: [facility] Comment on above: Pre-op examination; Uterine leiomyoma, unspecified location Start: 01-16-2024 End: 01-16-2024 Preprocedural examination done Kenn Riddhi DO Work Phone: [facility] Start: 01-16-2024 End: 01-16-2024 ambulatory KENN RIDDHI Not Available Start: 01-16-2024 End: 01-16-2024 Bamboo flowsheet Kenn Riddhi DO Work Phone: [facility] Start: 01-16-2024 End: 01-16-2024 Bamboo flowsheet Kenn Riddhi DO Work Phone: [facility] Start: 12-25-2023 End: 12-25-2023 Bamboo flowsheet Kenn Riddhi DO Work Phone: [facility] Start: 12-25-2023 End: 12-25-2023 Bamboo flowsheet Kenn Riddhi DO Work Phone: [facility] Start: 12-25-2023 End: 12-25-2023 Office outpatient visit 15 minutes Kenn Riddhi DO Work Phone: [facility] Comment on above: Female infertility; PCOS (polycystic ovarian syndrome); Dysfunctional uterine bleeding Start: 12-25-2023 End: 12-25-2023 ambulatory KENN RIDDHI Not Available Start: 12-11-2023 End: 12-11-2023 Clinis[facility] Result Encounter Tessy Araiza DO Work Phone: [facility]olic[facility] Start: 12-11-2023 End: 12-11-2023 [facility] Result Encounter Tessy Araiza DO Work Phone: [facility]solic[facility] Start: 11-20-2023 ambulatory [facility] Start: 11-19-2023 End: 11-19-2023 ambulatory TESSY ARAIZA Not Available Start: 10-10-[address] [facility] Start: 10-02-[address] [facility] Start: 09-19-2023 ambulatory [facility] Start: 06-18-2023 End: 06-18-2023 ambulatory [facility] Start: 12-12-2022 End: 12-15-2022 ambulatory EMEKA [facility]FRANSISCA [facility] Start: 06-19-2022 End: 06-20-2022 ambulatory Isabella Sepulveda Jaret TERMITE INSPECTOR-ONLINE EDUCATION MANAGER Facility:[facility] Start: 05-30-2022 End: 05-31-2022 ambulatory Adebayo Latham DO Facility:[facility] Start: 05-16-2022 End: 05-17-2022 ambulatory sIabella Sepulveda Jaret TERMITE INSPECTOR-ONLINE EDUCATION MANAGER Facility:[facility] Start: 12-20-2021 End: 12-21-[address] ADEBAYO SOLARES Facility:[facility] Start: 11-15-2021 End: 11-16-[address] ADEBAYO SOLARES Facility:[facility] Procedures Date Procedure Procedure Detail Performing Clinician Start: 02-08-2024 ALL CBC WITH AUTO DIFF Kenn Riddhi DO Work Phone: Start: 01-30-2024 ALL CBC WITH AUTO DIFF Kenn Riddhi DO Work Phone: Start: 12-13-2023 Microscopic observat ion [Identifier] in Cervix by Cyto stain Maureen SINGLETON Work Phone: Start: 12-13-2023 Cytp cerv/vag auto t hin layer prep mnl screen Kenn Riddhi DO Work Phone: Start: 12-11-2023 HCG QUALITATIVE* Tessy hunter DO Work Phone: Start: 05-17-2012 Microscopic observat ion [Identifier] in Cervix by Cyto stain Tessy Araiza DO Work Phone: Plan of Treatment Date Care Activity Detail Author Start: 12-12-2028 Screening for malign ant neoplasm of cervix [facility] Start: 02-19-2024 End: 02-19-2024 Patient encounter procedure 02/19/2024 1:40 PM EST Office Visit [facility] [address] [facility] [place] [address] Maureen Feliz PA [address] [place] [address] Arrived [facility] Comment on above: Arrived Start: 01-16-2024 End: 01-16-2024 Patient encounter procedure 01/16/2024 4:00 PM EDT Consult [facility] [address] [place] [address] Kenn Hannon DO [address] [place] [address] Arrived [facility] Comment on above: Arrived Start: 12-25-2023 End: 2024 Antimullerian hormone (AMH) Antimullerian hormone (AMH) Lab Routine Female infertility PCOS (polycystic ovarian syndrome) Dysfunctional uterine bleeding Expected: 12/25/2023 (Approximate), Expires: 2024 [facility] Comment on above: Expected: 12/25/2023 (Approximate), Expires: 2024 Start: 12-25-2023 End: 2024 DHEA DHEA Lab Routine PCOS (polycystic ovarian syndrome) Expected: 12/25/2023 (Approximate), Expires: 2024 [facility] Comment on above: Expected: 12/25/2023 (Approximate), Expires: 2024 Start: 12-25-2023 End: 12-25-2023 Patient encounter procedure [facility] Comment on above: Arrived Start: 12-16-2023 Influenza vaccination Influenza Vacc ine (#1) [facility] Start: 12-11-2023 End: 12-11-2023 Patient encounter procedure 12/11/2023 8:00 AM EDT Procedure Visit [facility] Tessy Araiza DO [address] [facility] [address] [place] [address] [facility] Start: 05-17-2017 Screening for malign ant neoplasm of cervix [facility] Healthcare CBC W Auto Different ial panel - Blood CBC and differential Lab Routine PCOS (polycystic ovarian syndrome) Ordered: 12/25/2023 [facility] Comment on above: Ordered: 12/25/2023 DHEA-sulfate DHEA-sulfate Lab Routine PCOS (polycystic ovarian syndrome) Ordered: 12/25/2023 [facility] Comment on above: Ordered: 12/25/2023 Follicle stimulating hormone Follicle stimulating hormone Lab Routine PCOS (polycystic ovarian syndrome) Ordered: 12/25/2023 [facility] Comment on above: Ordered: 12/25/2023 hCG, quantitative, hCG, quantitative, Lab Routine PCOS (polycystic ovarian syndrome) Ordered: 12/25/2023 [facility] Work Phone: Comment on above: Ordered: 12/25/2023 Hemoglobin A1c/Hemoglobin.total in Blood Hemoglobin A1c Lab Routine Female infertility PCOS (polycystic ovarian syndrome) Dysfunctional uterine bleeding Ordered: 12/25/2023 [facility] Comment on above: Ordered: 12/25/2023 Luteinizing hormone Luteinizing hormone Lab Routine PCOS (polycystic ovarian syndrome) Ordered: 12/25/2023 [facility] Comment on above: Ordered: 12/25/2023 Thyrotropin [Units/volume] in Serum or Plasma TSH Lab Routine PCOS (polycystic ovarian syndrome) Ordered: 12/25/2023 [facility] Comment on above: Ordered: 12/25/2023 Thyroxine (T4) free [Mass/volume] in Serum or Plasma T4, free Lab Routine PCOS (polycystic ovarian syndrome) Ordered: 12/25/2023 [facility] Comment on above: Ordered: 12/25/2023 Immunizations Immunization Date Immunization Notes Care Provider Eunice martinez 02-12-2023 influenza virus vacc ine, unspecified formulation Tessy Araiza DO Work Phone: [facility] Payers Date [id number] 2023 Unknown [id number] 2022 Unknown 2021 Self-pay 2019 Unknown [id number] 1991 Unknown [id number] .593 1991 Unknown [id number] [id number] .593 1991 Unknown [id number] [id number] .196 1991 Unknown [id number] [id number] .196 1991 Unknown [id number] [id number] .196 1991 Unknown [id number] 2.16.840.1.555516.3.579.2 .173 1991 Unknown [id number] [id number] .1259 1991 Unknown [id number] 2.16.840.1.875150.3.579.2 .1259 1991 Unknown [id number] [id number] .9 1991 Unknown [id number] [id number] .1259 1959 Unknown [id number] Social History Date Type Detail Facility Start: 11-19-2023 Tobacco smoking stat [facility] Never smoked tobacco [facility] Start: 11-19-2023 Tobacco use and exposure Smoke less tobacco non-user [facility] Start: 11-19-2023 End: 12-25-2023 Alcoholic beverage intake Lifetime non-drinker (finding) [facility] Start: 11-19-2023 History of Social function [facility] Start: 11-19-2023 Tobacco use panel [facility] Start: 1990 Sex assigned at Not on file [facility] History of Present illness Narrative 02-19-2024 ARELI Espinoza - 02/19/2024 1:40 PM EST Note Date & Type Note Facility 02-19-2024 History of Presen t illness Narrative Reason for Appointment: Patient ID: Javid Prasad is a 33 y.o. female who presents for Post-op Visit Patient presents today for 1 Week Post Op Follow Up appointment. MEDICATIONS Current Outpatient Medications Medication Instructions metFORMIN [...] Procedure Laterality Date COLONOSCOPY 12/11/2023 COLPOSCOPY 12/11/23 DILATION AND CURETTAGE OF UTERUS 02/08/2024 REVIEW OF SYSTEMS Review of Systems: Review [...] reviewed. Vitals: Estimated body mass index is 37.95 kg/m as calculated from the following: Height as of 01/16/24: 6'. Weight as of this encounter: 279 lb 12.8 oz. BP: 114/74 No LMP recorded. ASSESSMENT & PLAN ICD-10-CM 1. Postop check Z09 Post Op Follow Up: Patient presents today for a postop follow up after having a D&C Hysteroscopy performed at [facility] with Dr. Hannon. Pathology results was reviewed with the patient in great detail and all restrictions have been lifted. Follow Up: Patient is to return to the office for annual exam unless needed otherwise. Documented by ARELI Espinoza on behalf of: ARELI Espinoza documented in this encounter [facility] History of Present illness Narrative 01-16-2024 [...] on 02/08/[address] Hannon at [facility]. MEDICATIONS Current Outpatient Medications Medication Instructions metFORMIN [...] Name Age of Onset Arthritis Father Adebayo Lara Diabetes Father Adebayo Lara Hyperlipidemia Father Adebayo Lara Hypertension Father Adebayo Lara Kidney disease Father Adebayo Lara Stroke Father Adebayo Lara Diabetes Maternal Grandfather James Alcaraz Hypertension Maternal Grandmother Sandy Alcaraz Diabetes Paternal Grandfather Rito Lara Kidney disease [...] reviewed, and patient is to proceed to [facility] OR. Follow Up: Patient is to follow up between 1-2 weeks post operative to assess proper healing and recovery from procedure. Documented by Katarzyna Malagon LPN on behalf of: Kenn Hannon DO documented in this encounter [facility] History of Present illness Narrative 12-25-2023 Katarzyna MalagonJAJA - 12/25/2023 10:10 AM EDT Note Date & Type Note Facility 12-25-2023 History of Presen t illness Narrative Reason for Appointment: Patient ID: Javid Prasad is a 33 y.o. female who presents for Infertility Patient presents today for Fertility Follow Up appointment. MEDICATIONS Current Outpatient Medications Medication Instructions omeprazole (PRILOSEC) 20 mg, Oral, Daily before [...] Grandfather James Bernardicott Hypertension Maternal Grandmother Sandy Lissa Diabetes Paternal Grandfather Rito Marco Kidney disease [...] Exam Constitutional: Appearance: Normal appearance. She is well-developed. Cardiovascular: Rate and Rhythm: Normal rate and regular rhythm. Pulmonary: Effort: Pulmonary effort is normal. Breath sounds: Normal breath sounds. Abdominal: General: Bowel sounds are normal. There is no distension. Palpations: Abdomen is soft. Tenderness: There is no abdominal tenderness. There is no guarding or rebound. Musculoskeletal: General: No swelling. Normal range of motion. Right lower leg: No edema. Left lower leg: No edema. Neurological: Mental Status: She is alert and oriented to person, place, and time. Skin: General: Skin is warm and dry. Psychiatric: Mood and Affect: Mood normal. Behavior: Behavior normal. Vitals and nursing note reviewed. Exam conducted with a assembler watch train present. Vitals: Estimated body mass index is 37.57 kg/m as calculated from the following: Height as of this encounter: 6'. Weight as of this encounter: 277 lb. BP: 122/84 Patient's last menstrual period was 12/14/2023. ASSESSMENT & PLAN ICD-10-CM 1. Female infertility N97.9 Hemoglobin A1c Antimullerian hormone (AMH) Antimullerian hormone (AMH) 2. PCOS (polycystic ovarian syndrome) E28.2 hCG, quantitative, TSH T4, free CBC and differential Follicle stimulating hormone Luteinizing hormone Hemoglobin A1c DHEA-sulfate DHEA Antimullerian hormone (AMH) DHEA Antimullerian hormone (AMH) 3. Dysfunctional uterine bleeding N93.8 Hemoglobin A1c Antimullerian hormone (AMH) Antimullerian hormone (AMH) Patient presents today to discuss fertility. Patient was given a standing lab order to have obtained. Patient was instructed to call the office once menstrual cycle begins so femara can be called into patients pharmacy. Patient has been instructed to take Femara on days 3-7 of cycle. On day 21 of cycle patient is to have progesterone labs drawn. Patient was advised to have intercourse on days 12, 14, 16, 18, and 20 of cycle. Given semen analysis. We will do three rounds of Femara and if patient has not conceived by then, we will perform HSG. Patient has voiced understanding and will call our office for any further questions/concerns. Orders Placed This Encounter Procedures hCG, quantitative, TSH T4, free CBC and differential Follicle stimulating hormone Luteinizing hormone Hemoglobin A1c DHEA-sulfate DHEA Antimullerian hormone (AMH) Follow Up: 4 months if not conceived Documented by Katarzyna Malagon LPN on behalf of: Kenn Hannon DO documented in this encounter [facility] Progress note 12-25-2023 Note Date & Type [...] on file Intimate Partner Violence: Unknown (06/07/2023) [place] Safety & Environment Fear of Current or [...] not heard Diastolic (more content not included)... [facility] Progress note 09-19-2023 Note Date & [...] Follow-up in 3 months Graeme Guevara MD, [facility] Procedure note 06-18-2023 Note Date & Type Note Facility 06-18-2023 Note LOOP IMPLANT PROCEDU RE NOTE DATE OF PROCEDURE: 06/18/23 PERFORMING PHYSICIAN: Dr. Yoseph Mcintosh EDGER MACHINE OPERATOR: BALWINDER INDICATIONS FOR PROCEDURE: 1. SVT/AF surveillance [...] the sternum on the left using the [employer] tool. The loop recorder was then injected [...] the incision. Yoseph Mcintosh MD Cardiac Electrophysiology. [facility] Clinical Note 06-19-2022 Note Date & [...] dreaming in association with her activity. 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 Nutrition/Health Caffeine [...] signed by Isabella Grant 06/19/22 15:39 EST [facility] Evaluation note Note Date & Type Note Facility Evaluation note Diagnosis Pre-op examination Uterine leiomyoma, unspecified location documented in this encounter [facility] Evaluation note Note Date & Type Note Facility Evaluation note Diagnosis Postop check Follow-up examination, following unspecified surgery documented in this encounter [facility] Evaluation note Note Date & Type Note Facility Evaluation note Diagnosis Female infertility Female infertility of unspecified origin PCOS (polycystic ovarian syndrome) Polycystic ovaries Dysfunctional uterine bleeding Other disorder of menstruation and other abnormal bleeding from female genital tract documented in this encounter [facility] Summary Purpose Family History No Family [...] section and content) DATE CREATED AUTHOR 07/04/2021 [facility] DATE CREATED AUTHOR AUTHOR'S ORGANIZ ATION 2021 [facility] DATE CREATED AUTHOR AUTHOR'S ORGANIZ ATION 06/21/2022 [facility] DATE CREATED AUTHOR AUTHOR'S ORGANIZ ATION 12/15/2022 [facility] DATE CREATED AUTHOR AUTHOR'S ORGANIZ ATION 02/21/2024 [facility] DATE CREATED AUTHOR AUTHOR'S ORGANIZ ATION 04/27/2024 [facility] Care Teams (unrecognized sec tion and content) 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 Relationship Specialty Start Date End Date Adebayo Solares MD [address] [id number] PCP - General Family Medicine 11/19/23 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 Relationship Specialty Start Date End Date Adebayo Solares MD [address] [place] [address] PCP - General Family Medicine 11/19/23 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 Relationship Specialty Start Date End Date Adebayo Solares MD [address] [place] [address] PCP - General Family Medicine 11/19/23 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 Relationship Specialty Start Date End Date Adebayo Solares MD [address] [place] [address] PCP - General Family Medicine 11/19/23 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 Relationship Specialty Start Date End Date Adebayo Solares MD [address] [place] [address] PCP - General Family Medicine 11/19/23 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 Relationship Specialty Start Date End Date Adebayo Solares MD [address] [place] [address] PCP - General Family Medicine 11/19/23 Reason for Visit (unrecogniz ed section and content) Reason Comments Pre-op Visit Reason Comments Post-op Visit Reason Comments Infertility FOR RECORDS PERTAINING TO PATIENTS WHO ARE [...] BE BASED ON THE PRIMARY CLINICAL RECORDS. [employer] [facility]. provides no warranty or guarantee of the accuracy or completeness of information in this document.
[2024-05-17 09:01] LABS: HCG Quantitative 713 mIU/mL
[2024-05-20 09:05] LABS: HCG Quantitative 2792 mIU/mL
== END 2024-06-13 15:04 | disposition home or self-care (01) ==
LOC: LAB 08:03
PROVIDERS: PCP Family Medicine; Visit Provider Obstetrics & Gynecology
DX: N92.6 Irregular menstruation, unspecified (principal)
CPT/HCPCS: 36415; 84702

== ENCOUNTER 2024-07-15 07:53 | Outpatient (OUT) | payer BC, SELFPAY ==
--- OUTSIDE RECORDS SUMMARY | 2024-07-15 07:58 | XMS_ITS | CCD ---
Author Organization [facility] CliniSyaz Care Team Providers Care Franchise Broker Name Role Phone BECK, DR ADEBAYO Oropeza [...] Unavailable Solares, Adebayo Primary Care Unavailable Jaret LEARNING ANALYST-HOSPITAL ACCOUNT LIAISON, Isabella Sepulveda Attending Unavaila ble Solares, Adebayo Primary Care Unavailable Jaret LEARNING ANALYST-HOSPITAL ACCOUNT LIAISON, Isabella Sepulveda Attending Unavaila ble Solares, Adebayo Primary Care Unavailable Solares, Adebayo Consulting Unavailable Solares, Adebayo Referring Unavailable LILIANAAZEMEKA Arevalo Referring Unavailable Solares Adebayo GOYAL Primary Care Provider [phone] TESSY ARAIZA Attending Unavailable KENN HANNON Attending Unavailable RIDDHIKENN WILDER Attending Unavailable MAUREEN FELIZ Attending Unavailable MARIANA NEWMAN Referring Unavailable CHALINO, VIRAL Referring Unavailable TRENTMARIANA Attending Unavailable GRAEME GUEVARA Attending Unavailable TRENT, MARIANA Referring Unavailable CHALINO, VIRAL Referring Unavailable CHALINO, VIRAL Referring Unavailable TRENT, MARIANA Referring Unavailable TRENTMARIANA Referring Unavailable TRENT, MARIANA Referring Unavailable TRENT, MARIANA Referring Unavailable CHALINO, VIRAL Referring Unavailable TRENT, MARIANA Referring Unavailable CHALINO, VIRAL Referring Unavailable CHALINO, VIRAL Referring Unavailable CHALINO, VIRAL Referring Unavailable Allergies Allergy Classification Reported Allergen(s) Allergy Type Date of Onset Reaction(s) Facility (1 source) No Known Medication Allergies; Translations: [No Known Medication Allergies] Propensity to adverse reactions to drug (disorder) [facility] Repository Medications Current Medications Medication Drug Class(es) Dates Sig (Normalized) Sig (Original) metFORMIN hydrochloride 500 mg oral tablet (11 sources) Biguanide Start: 12-25-2023 End: 2024 take 1 tablet by mouth at mealtime metFORMIN (Glucophage) 500 MG tablet Indications: PCOS (polycystic ovarian syndrome) Take 1 tablet (500 mg) by mouth in the morning. Take with meals. 30 tablet 12/25/2023 2024 Active omeprazole 40 mg delayed release oral capsule (13 sources) Proton Pump Inhibitor omeprazole (PriLOSEC) 40 [...] Results Test Name Value Interpretation Reference Range Facil ity US OB TRANSVAGINALon 025 US OB TRANSVAGINAL EXAM: US OB TRANSVAGINAL HISTORY: Dating. COMPARISON: None available. TECHNIQUE: Two-dimensional transvaginal grayscale ultrasound imaging of the pelvis was performed. Color Doppler evaluation of the ovaries was also performed. FINDINGS: The uterus demonstrates a normal homogeneous echotexture. The cervix measures 3.2 cm in length and the cervical os is closed. The right ovary measures 3.4 x 1.5 x 3.3 cm and demonstrates a normal echotexture. There is normal color Doppler flow. The left ovary measures 2.4 x 1.4 x 1.9 cm and demonstrates a normal echotexture. There is normal color Doppler flow. No fluid is present within the cul-de-sac. There is a single, live intrauterine gestation identified with a heart rate of 176 beats per minute and a crown-rump length measurement of 2.4 cm, correlating to a gestational age of 9 weeks 1 days (+/- 6 days). There is no subchorionic hemorrhage visualized. A yolk sac is visualized. IMPRESSION: 1. Single, live intrauterine gestation 9 weeks, 5 days by LMP. Today's ultrasound measurements correlate with a gestational age of 9 weeks 1 days (+/- 6 days). WILLIE by today's ultrasound is 01/21/2025. 2. Normal color Doppler evaluation of the bilateral ovaries. Electronically Signed:Electronicall y signed by THOMAS OLIVARES II, MD, PHD at 20-Jun-2024 08:24:08 AM [facility] Normal Not Available Comment on above: Order Comment: US OB TRANSVAGINAL No LMP recorded. [facility] PREG QUANT HCGon 025 HCG QUANTITATIVE 2792 mIU/mL [facility] Comment on above: 5-50 0.2-1 WEEK 50-500 1-2 WEEKS 100-5,000 2-3 WEEKS 500-10,000 3-4 WEEKS 1,000-50,000 4-5 WEEKS 10,000-100,000 5-6 WEEKS 15,000-200,000 6-8 WEEKS 10,000-100,000 2-3 MONTHS [facility] PREG QUANT HCGon 025 HCG QUANTITATIVE 713 mIU/mL [facility] Comment on above: 5-50 0.2-1 WEEK 50-500 1-2 WEEKS 100-5,000 2-3 WEEKS 500-10,000 3-4 WEEKS 1,000-50,000 4-5 WEEKS 10,000-100,000 5-6 WEEKS 15,000-200,000 6-8 WEEKS 10,000-100,000 2-3 MONTHS [facility] ALL CBC WITH AUTO DIFFon BASOPHILS ABSOLUTE AUTO 0.1 [facility] Basophils/100 WBC (Bld) 0.8 % 0.2 - 2.0 % [facility] Eosinophils/100 WBC (Bld) 3.5 % 0.9 - 7.0 % [facility] Erythrocyte distribution width (RBC) [Ratio] 13.2 % 11.0 - 15.0 % [facility] Hematocrit (Bld) [Volume fraction] 41.9 % 36.0 - 48.0 % [facility] Healthcar e Hemoglobin (Bld) [Mass/Vol] 13.8 g/dL 12.0 - 16.0 g/dL [facility] IMMATURE GRANULOCYTES ABS AUTO 0.02 [facility] Immature granulocytes/100 WBC (Bld) 0.3 % 0.0 - 0.5 % [facility] LYMPHOCYTES ABSOLUTE AUTO 2.5 [facility] Lymphocytes/100 WBC (Bld) 31.1 % 20.5 - 60.0 % [facility] MCH (RBC) [Entitic mass] 27.7 pg 26.7 - 34.0 pg [facility] MCHC (RBC) [Mass/Vol] 32.9 g/dL 29.9 - 35.2 g/dL [facility] MCV (RBC) [Entitic vol] 84 fL 81.0 - 99.0 fL [facility] MONOCYTES ABSOLUTE AUTO 0.5 [facility] Monocytes/100 WBC (Bld) 6.6 % 1.7 - 12.0 % [facility] NEUTROPHILS ABSOLUTE AUTO 4.6 [facility] Neutrophils/100 WBC (Bld) 57.7 % 43.0 - 75.0 % [facility] Platelet mean volume (Bld) [Entitic vol] 9.6 fL 9.5 - 13.5 fL [facility] Healthc are [facility] EO # 0.3 [facility] TB PLT 429 [facility] RBC 4.99 [facility] WBC 8 [facility] ALL CBC WITH AUTO DIFFon BASOPHILS ABSOLUTE AUTO 0.1 [facility] Basophils/100 WBC (Bld) 0.7 % 0.2 - 2.0 % [facility] Eosinophils/100 WBC (Bld) 3.7 % 0.9 - 7.0 % [facility] Erythrocyte distribution width (RBC) [Ratio] 13.2 % 11.0 - 15.0 % [facility] Hematocrit (Bld) [Volume fraction] 42.2 % 36.0 - 48.0 % [facility] Hemoglobin (Bld) [Mass/Vol] 14 g/dL 12.0 - 16.0 g/dL [facility] IMMATURE GRANULOCYTES ABS AUTO 0.01 [facility] Immature granulocytes/100 WBC (Bld) 0.1 % 0.0 - 0.5 % [facility] LYMPHOCYTES ABSOLUTE AUTO 2.6 [facility] Lymphocytes/100 WBC (Bld) 37.7 % 20.5 - 60.0 % [facility] MCH (RBC) [Entitic mass] 28.1 pg 26.7 - 34.0 pg [facility] MCHC (RBC) [Mass/Vol] 33.2 g/dL 29.9 - 35.2 g/dL [facility] MCV (RBC) [Entitic vol] 84.6 fL 81.0 - 99.0 fL [facility] MONOCYTES ABSOLUTE AUTO 0.4 [facility] Monocytes/100 WBC (Bld) 5.9 % 1.7 - 12.0 % [facility] NEUTROPHILS ABSOLUTE AUTO 3.6 [facility] Neutrophils/100 WBC (Bld) 51.9 % 43.0 - 75.0 % [facility] Platelet mean volume (Bld) [Entitic vol] 9.8 fL 9.5 - 13.5 fL [facility] EO # 0.3 [facility] PLT 438 [facility] RBC 4.99 [facility] WBC 7 [facility] Office Visiton 12-25-2023 Follow-up visit [id number] Javid Prasad 1990 F Date Provider Department Center 12/25/2023 MARIANA WALTER BH BEBETO Koehler Family History Problem Relation Age of Onset Atrial fibrillation Mother Diabetes Father Kidney disease Father Heart attack Maternal Grandmother Family Status - Relation Status Age at Mother Father Maternal Grandmother Level of Service:[address] [place] OFFICE/OUTPATIENT ESTABLISHED LOW MDM 20 MIN Normal [facility] Cytology Cervical or vaginal smear or scraping studyon 12-13-2023 [facility] HCG QUALITATIVE*on 4 [facility] , QUAL Negative NEGATIVE [facility] Visiton 09-19-2023 Follow-up visit [id number] Javid Prasad 1990 F Date Provider Department Center 09/19/2023 [id number] GUEVARA BEBETO Koehler Family History Problem Relation Age of Onset Atrial fibrillation Mother Diabetes Father Kidney disease Father Heart attack Maternal Grandmother Family Status - Relation Status Age at Mother Father Maternal Grandmother Level of Service:[address]71 [place] OFFICE/OUTPATIENT ESTABLISHED MOD MDM 30 MIN Normal [facility] Sleep Medicine Consultationo n 05-16-2022 [...] She can be sleepy during the day. [place] Sleepiness Scale score: 12. She is [...] her clinical (more content not included)... Normal [facility] CT HEAD WO CONon 12-21-2021 CT HEAD [...] CARLOS GALE Date: 2021-12-21 07:15 Normal [facility] CT TEMPORAL BONES WO CONon 0 9-07-2022 CT TEMPORAL BONES WO CON EXAMINATION: CT [...] foramen are normal. Visualized paranasal sinuses clear. Materials And Corrosion Engineer spaces normal. Orbital contents unremarkable. Posterior fossa structures normal. IMPRESSION: Normal CT of the temporal bones. Electronically authenticated by: LOUIS BRAY Date: 2021-12-21 16:11 Normal [facility] Comprehensive Metabolic Empo n 05-10-2021 Albumin [Mass/Vol] 4.1 g/dL Normal 3.2-5.5 [facility] Comment on above: Performed By: #### E BS LIPID, EBS A1C, EBS CMP #### [facility] [address] Albumin/Globulin [Mass ratio] 1.3 {ratio} Normal [facility] Comment on above: Performed By: #### E BS LIPID, EBS A1C, EBS CMP #### [facility] [address] ALP [Catalytic activity/Vol] 77 U/L Normal 32-92 [facility] Comment on above: Performed By: #### E BS LIPID, EBS A1C, EBS CMP #### [facility] [address] [place] [address] [place] ALT [Catalytic activity/Vol] 19 U/L Normal 10-60 [facility] Comment on above: Performed By: #### E BS LIPID, EBS A1C, EBS CMP #### [facility] [address] [place] [address] [place] AST [Catalytic activity/Vol] 18 U/L Normal 10-42 [facility] Comment on above: Performed By: #### E BS LIPID, EBS A1C, EBS CMP #### [facility] [address] Bilirubin [Mass/Vol] 0.3 mg/dL Normal 0.3-1.[address] [facility] Comment on above: Performed By: #### E BS LIPID, EBS A1C, EBS CMP #### [address] Calcium [Mass/Vol] 9.2 mg/dL Normal 8.2-10.2 [facility] Comment on above: Performed By: #### E BS LIPID, EBS A1C, EBS CMP #### [facility] [address] [place] [address] Chloride [Moles/Vol] 104 mmol/L Normal 95-[address] [facility] Comment on above: Performed By: #### E BS LIPID, EBS A1C, EBS CMP #### [place] [address] [place] CO2 [Moles/Vol] 24.1 mmol/L Normal 22.0-30.0 [facility] Comment on above: Performed By: #### E BS LIPID, EBS A1C, EBS CMP #### [place] [address] [place] Creatinine [Mass/Vol] 0.69 mg/dL Normal 0.44-1.03 [facility] Comment on above: Performed By: #### E BS LIPID, EBS A1C, EBS CMP #### [facility] [address] [place] [address] [place] Estimated GFR ( Liz > 60 Normal [facility] Comment on above: Result Comment: GFR estimated reference range: According to KDOQI guidelines, <60 ml/min/1.73m2 is sufficient to diagnose a patient with chronic kidney disease. Performed By: #### E BS LIPID, EBS A1C, EBS CMP #### [facility] [address] Estimated GFR (Non- Am > 60 Normal [facility] Comment on above: Performed By: #### E BS LIPID, EBS A1C, EBS CMP #### [facility] [address] [place] [address] [place] Globulin (S) [Mass/Vol] 3.1 g/dL Normal [facility] Comment on above: Performed By: #### E BS LIPID, EBS A1C, EBS CMP #### [facility] [address] Glucose [Mass/Vol] 106 mg/dL High 70-100 [facility] Comment on above: Result Comment: ADA recommended reference range Performed By: #### E BS LIPID, EBS A1C, EBS CMP #### [facility] [address] Potassium [Moles/Vol] 4.0 mmol/L Normal 3.5-5.1 [facility] Comment on above: Performed By: #### E BS LIPID, EBS A1C, EBS CMP #### [address] Protein [Mass/Vol] 7.2 g/dL Normal 6.1-7.9 [facility] Comment on above: Performed By: #### E BS LIPID, EBS A1C, EBS CMP #### [facility] [address] [place] [address] [place] Sodium [Moles/Vol] 137 mmol/L Normal 136-146 [facility] Comment on above: Performed By: #### E BS LIPID, EBS A1C, EBS CMP #### [facility] [address] [place] [address] [place] Urea nitrogen [Mass/Vol] 10 mg/dL Normal 9-23 [facility] Comment on above: Performed By: #### E BS LIPID, EBS A1C, EBS CMP #### [facility] [address] EBS A1C with Estimated Ave G luon 05-10-2021 Glucose [Mass/Vol] 111 mg/dL Normal [facility] Comment on above: Result Comment: PERF ORMED BY: [facility] [address] [place] [address] PATHOLOGIST GAME FARM HELPER JERRY RAMSEY M.D. Performed By: #### E BS LIPID, EBS A1C, EBS CMP #### [facility] [address] [place] [id number] [place] HbA1c (Bld) [Mass fraction] 5.5 % Normal 4.3-5.6 [facility] Comment on above: Result Comment: Incr eased risk for diabetes: 5.7 - 6.4 diabetes: >6.4 glycemic control for adults with diabetes: <7.0 Performed By: #### E BS LIPID, EBS A1C, EBS CMP #### [facility] [address] Lipid Profileon 05-10-2021 Cholesterol [Mass/Vol] 202 mg/dL High 140-200 [facility] Comment on above: Result Comment: Chol less than 200 mg/dl low risk Chol 201-239 mg/dl borderline risk Chol 240 mg/dl and greater high risk Performed By: #### E BS LIPID, EBS A1C, EBS CMP #### [facility] [address] [place] [address] [place] Cholesterol in HDL [Mass/Vol] 37 mg/dL Normal 35-85 [facility] Comment on above: Result Comment: HDL CHOL ATP-III CLASSIFICATION Cardiovascular Risk HDL > or equal to 60 mg/dL LOW HDL < 40 mg/dL HIGH Performed By: #### E BS LIPID, EBS A1C, EBS CMP #### [facility] [address] Cholesterol.total/Ch olesterol in HDL [Mass ratio] 5.5 {ratio} Normal <5.0 [facility] Comment on above: Result Comment: PERF ORMED BY: [facility] [address] [place] [address] PATHOLOGIST GAME FARM HELPER JERRY RAMSEY M.D. Performed By: #### E BS LIPID, EBS A1C, EBS CMP #### [facility] [address] LDL Cholesterol,Calculat ed 125 mg/dL High 0-100 [facility] Comment on above: Result Comment: LDL ATP III CLASSIFICATION LDL less than 100 mg/dL Optimal LDL 100-129 mg/dL Near or above optimal LDL 130-159 mg/dL Borderline high LDL 160-189 mg/dL High LDL greater than 189 mg/dL Very high Performed By: #### E BS LIPID, EBS A1C, EBS CMP #### [facility] [address] Triglyceride w/Reflex 199 mg/dL High 35-149 [facility] Comment on above: Result Comment: TRIG ATP III CLASSIFICATION TRIG less than 150 mg/dL Normal TRIG 150-199 mg/dL Borderline high TRIG 200-500 mg/dL High TRIG greater than 500 mg/dL Very high Standard traceable to the Center for Disease Conrtrol and Prevention (CDC) test method. Performed By: #### E BS LIPID, EBS A1C, EBS CMP #### [facility] [address] VLDL CHOLESTEROL 39 mg/dL Normal [facility] Comment on above: Performed By: #### E BS LIPID, EBS A1C, EBS CMP #### [facility] [address] Vital Signs Date Time Vital Sign Value Performing Clinician Ronaldo coello 02-19-2024 14:07-0500 Body mass index (BMI) [Ratio] 37.95 kg/m2 Maureen SINGLETON Work Phone: [facility] 02-19-2024 14:07-0500 Body weight 126.92 kg Maureen SINGLETON Work Phone: [facility] 02-19-2024 14:07-0500 Diastolic blood pressure 74 mm[Hg] Maureen SINGLETON Work Phone: [facility] 02-19-2024 14:07-0500 Systolic blood pressure 114 mm[Hg] Maureen SINGLETON Work Phone: [facility] 01-16-2024 16:38-0400 Body height 182.9 cm Kenn Hannon DO Work Phone: [facility] 01-16-2024 16:38-0400 Body mass index (BMI) [Ratio] 37.57 kg/m2 Kenn Riddhi DO Work Phone: [facility] 01-16-2024 16:38-0400 Body weight 125.65 kg Kenn Riddhi DO Work Phone: [facility] 01-16-2024 16:38-0400 Diastolic blood pressure 80 mm[Hg] Kenn Riddhi DO Work Phone: [facility] 01-16-2024 16:38-0400 Systolic blood pressure 124 mm[Hg] Kenn Riddhi DO Work Phone: [facility] 12-25-2023 10:12-0400 Body height 182.9 cm Kenn Riddhi DO Work Phone: [facility] 12-25-2023 10:12-0400 Body mass index (BMI) [Ratio] 37.57 kg/m2 Kenn Riddhi DO Work Phone: [facility] 12-25-2023 10:12-0400 Body weight 125.65 kg Kenn Riddhi DO Work Phone: [facility] 12-25-2023 10:12-0400 Diastolic blood pressure 84 mm[Hg] Kenn Riddhi DO Work Phone: [facility] 12-25-2023 10:12-0400 Systolic blood pressure 122 mm[Hg] Kenn Riddhi DO Work Phone: [facility] Healthcare Encounters Encounter Date Encounter Type Care Provider Facility Start: 06-26-2024 ambulatory [facility] Start: 06-19-2024 End: 06-19-2024 ambulatory TESSY ARAIZA Not Available Start: 05-21-2024 ambulatory [facility] Start: 05-20-2024 End: 05-20-2024 Clinisync Result Encounter Kenn Riddhi DO Work Phone: [facility] External Department Unsolicited Start: 05-20-2024 End: 05-20-2024 Clinisync Result Encounter Kenn Riddhi DO Work Phone: [facility] External Department Unsolicited Start: 05-17-2024 End: 05-17-2024 Clinisync Result Encounter Kenn Riddhi DO Work Phone: [facility] External Department Unsolicited Start: 05-17-2024 End: 05-17-2024 Clinisync Result Encounter Kenn Riddhi DO Work Phone: [facility] External Department Unsolicited Start: 04-21-2024 ambulatory [facility] Start: 04-14-2024 ambulatory [facility] Start: 03-07-2024 [facility] Start: 02-25-2024 ambulatory [facility] Start: 02-19-2024 End: 02-19-2024 Bamboo flowsheet Maureen Feliz PA Work Phone: [facility] Start: 02-19-2024 End: 02-19-2024 Bamboo flowsheet Maureen Feliz PA Work Phone: [facility] Start: 02-19-2024 End: 02-19-2024 Postop follow up visit related to original px Maureen Feliz PA Work Phone: [facility] Comment on above: Postop check Start: 02-19-2024 End: 02-19-2024 ambulatory MAUREEN FELIZ Not Available Start: 02-14-2024 ambulatory [facility] Start: 02-08-2024 End: 02-08-2024 Clinisync Result [...] External Department Unsolicited Start: 01-16-2024 ambulatory VIRAL ALLRED [facility] Start: 01-16-2024 End: 01-16-2024 Office outpatient visit 15 minutes Kenn Riddhi DO Work Phone: [facility] Comment on above: Pre-op examination; Uterine leiomyoma, unspecified location Start: 01-16-2024 End: 01-16-2024 Preprocedural examination done Kenn Riddhi DO Work Phone: [facility] Start: 01-16-2024 End: 01-16-2024 ambulatory KENN [...] [facility] External Department Unsolicited Start: 11-20-2023 ambulatory MARIANA NEWMAN [facility] Start: 11-19-2023 End: 11-19-2023 ambulatory TESSY ARAIZA Not Available Start: 10-10-2023 ambulatory [facility] Start: 10-02-2023 ambulatory [facility] Start: 09-19-2023 [facility] Start: 12-12-2022 End: 12-15-2022 ambulatory EMEKANEYDA HERNANDEZ [facility] Start: 06-19-2022 End: 06-20-2022 ambulatory Isabella Raygoza LEARNING ANALYST-HOSPITAL ACCOUNT LIAISON Facility:[facility] Start: 05-30-2022 End: 05-31-2022 ambulatory Adebayo Latham DO Facility:[facility] Start: 05-16-2022 End: 05-17-2022 ambulatory Isabella Raygoza LEARNING ANALYST-HOSPITAL ACCOUNT LIAISON Facility:[facility] Start: 12-20-2021 End: 12-21-[address] ADEBAYO SOLARES Facility:[facility] Start: 11-15-2021 End: 11-16-[address] ADEBAYO SOLARES Facility:[facility] Procedures Date Procedure Procedure Detail Performing Clinician Start: 05-20-2024 [facility] PREG QUANT HCG Core y Riddhi DO Work Phone: Start: 05-17-2024 [facility] PREG QUANT HCG Core y Riddhi DO Work Phone: Start: 02-08-2024 ALL CBC WITH AUTO DIFF Kenn Riddhi DO Work Phone: Start: 01-30-2024 ALL CBC WITH AUTO DIFF Kenn Riddhi DO Work Phone: Start: 12-13-2023 Microscopic observat ion [Identifier] in Cervix by Cyto stain Maureen SINGLETON Work Phone: Start: 12-13-2023 Cytp cerv/vag auto t hin layer prep mnl screen Kenn Hannon DO Work Phone: Start: 12-11-2023 HCG QUALITATIVE* Tessy Sanderson naziaarceliareid DO Work Phone: Start: 05-17-2012 Microscopic observat ion [Identifier] in Cervix by Cyto stain Tessy Araiza DO Work Phone: Plan of Treatment Date Care Activity Detail Author Start: 12-12-2028 Screening for malign ant neoplasm of cervix [facility] Start: 06-19-2024 End: 06-19-2024 ambulatory 06/19/2024 2:30 PM EST Initial [facility] [address] [place] [phone] [facility] Start: 06-19-2024 End: 06-19-2024 Professional / ancillary services management 06/19/2024 2:00 PM EST Ancillary Procedure [facility] [address] [place] [phone] [facility] Start: 02-19-2024 End: 02-19-2024 Patient encounter procedure 02/19/2024 1:40 PM EST Office Visit [facility] [address] [place] [phone] Maureen Feliz PA [address] [place] [address] Arrived [facility] Comment on above: Arrived Start: 01-16-2024 End: 01-16-2024 Patient encounter procedure 01/16/2024 4:00 PM EDT Consult [facility] [address] [place] [id number] Kenn Hannon DO [address] [place] [address] Arrived [facility] Comment on above: Arrived Start: 12-25-2023 End: 2024 Antimullerian hormone (AMH) Antimullerian hormone (AMH) Lab Routine Female infertility PCOS (polycystic ovarian syndrome) Dysfunctional uterine bleeding Expected: 12/25/2023 (Approximate), Expires: 2024 [facility] Comment on above: Expected: 12/25/2023 (Approximate), Expires: 2024 Start: 12-25-2023 End: 2024 DHEA DHEA Lab Routine PCOS (polycystic ovarian syndrome) Expected: 12/25/2023 (Approximate), Expires: 2024 [facility] Comment on above: Expected: 12/25/2023 (Approximate), Expires: 2024 Start: 12-25-2023 End: 12-25-2023 Patient encounter procedure [facility] Comment on above: Arrived Start: 12-16-2023 Influenza vaccination Influenza Vacc ine (#1) [facility] Start: 12-11-2023 End: 12-11-2023 Patient encounter procedure 12/11/2023 8:00 AM EDT Procedure Visit [facility] EXT DEP Tessy Araiza DO [address] [facility] [address] [place] [phone] [facility] EXT DEP Start: 05-17-2017 Screening for malign ant neoplasm of cervix [facility] CBC W Auto Different ial panel - Blood CBC and differential Lab Routine PCOS (polycystic ovarian syndrome) Ordered: 12/25/2023 [facility] Comment on above: Ordered: 12/25/2023 DHEA-sulfate DHEA-sulfate Lab Routine PCOS (polycystic ovarian syndrome) Ordered: 12/25/2023 [facility] Comment on above: Ordered: 12/25/2023 Follicle stimulating hormone Follicle stimulating hormone Lab Routine PCOS (polycystic ovarian syndrome) Ordered: 12/25/2023 [facility] Comment on above: Ordered: 12/25/2023 hCG, quantitative, hCG, quantitative, Lab Routine PCOS (polycystic ovarian syndrome) Ordered: 12/25/2023 [facility] Work Phone: Comment on above: Ordered: 12/25/2023 Hemoglobin A1c/Hemoglobin.total in Blood Hemoglobin A1c Lab Routine Female infertility PCOS (polycystic ovarian syndrome) Dysfunctional uterine bleeding Ordered: 12/25/2023 [facility] Comment on above: Ordered: 12/25/2023 Luteinizing hormone Luteinizing hormone Lab Routine PCOS (polycystic ovarian syndrome) Ordered: 12/25/2023 [facility] Comment on above: Ordered: 12/25/2023 Thyrotropin [Units/volume] in Serum or Plasma TSH Lab Routine PCOS (polycystic ovarian syndrome) Ordered: 12/25/2023 [facility] Comment on above: Ordered: 12/25/2023 Thyroxine (T4) free [Mass/volume] in Serum or Plasma T4, free Lab Routine PCOS (polycystic ovarian syndrome) Ordered: 12/25/2023 [facility] Comment on above: Ordered: 12/25/2023 Immunizations Immunization Date Immunization Notes Care Provider Eunice martinez 02-12-2023 influenza virus vacc ine, unspecified formulation Tessy Araiza DO Work Phone: [facility] Payers Date Payer Category Payer Unknown [id number] 2023 [facility] [id number] 2023 Unknown [id number] 2022 Unknown 2021 Self-pay 2019 Unknown [id number] 1991 Unknown [id number] [id number] .593 1991 Unknown [id number] 2.16.840.1.312416.3.579.2 .593 1991 Unknown [id number] 2.16.840.1.826160.3.579.2 .196 1991 Unknown [id number] 2.16.840.1.822252.3.579.2 .196 1991 Unknown [id number] 2.16.840.1.034111.3.579.2 .196 1991 Unknown [id number] 2.16.840.1.683082.3.579.2 .173 1991 Unknown [id number] 2.16.840.1.211354.3.579.2 .1259 1991 Unknown [id number] 2.16.840.1.617834.3.579.2 .9 1991 Unknown [id number] 2.16.840.1.858814.3.579.2 .9 1991 Unknown [id number] 2.16.840.1.655072.3.579.2 .9 1991 Unknown [id number] 2.16.840.1.272480.3.579.2 .9 1991 Unknown [id number] 2.16.840.1.875721.3.579.2 .9 1959 Unknown [id number] Social History Date Type Detail Facility Start: 11-19-2023 Tobacco smoking stat [facility] Never smoked tobacco [facility] Start: 11-19-2023 Tobacco use and exposure Smoke less tobacco non-user [facility] Start: 12-25-2023 End: 02-19-2024 Alcoholic beverage intake Lifetime non-drinker (finding) [facility] [...] having a D&C Hysteroscopy performed at [facility] with Dr. Hannon. Pathology results was reviewed [...] on 02/08/[address] Hannon at [facility]. MEDICATIONS Current Outpatient Medications Medication Instructions [...] Father Adebayo Marco Diabetes Maternal Grandfather James Lissa Hypertension Maternal Grandmother Sandy Lissa Diabetes Paternal [...] reviewed, and patient is to proceed to [facility] OR. Follow Up: Patient is to follow up between 1-2 weeks post operative to assess proper healing and recovery from procedure. Documented by Katarzyna Malagon LPN on behalf of: Kenn Hannon DO documented in this encounter [facility] History of Present illness Narrative 12-25-2023 Katarzyna Malagon LPN - 12/25/2023 10:10 AM EDT Note Date [...] Diabetes Father Adebayo Marco Hyperlipidemia Father Adebayo Mraco Hypertension Father Adebayo Marco Kidney disease Father Adebayo Marco Stroke Father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
[2024-07-15 08:38] LABS: Estimated Average Glucose 111 mg/dL; Glycohemoglobin A1C 5.5 % (4.5-6.2)
[2024-07-15 08:50] LABS: Basophils Percent Auto 0.3 % (0.2-2.0); Eosinophils Absolute Auto 0.2 10^3/uL (0.0-0.7); Eosinophils Percent Auto 1.6 % (0.9-7.0); Hematocrit 41.6 % (36.0-48.0); Hemoglobin 13.6 g/dL (12.0-16.0); Immature Granulocytes Abs Auto 0.03 10^3/uL (0.00-0.03); Immature Granulocytes Pct Auto 0.3 % (0.0-0.5); Lymphocytes Absolute Auto 2.1 10^3/uL (1.2-3.8); Lymphocytes Percent Auto 22.9 % (20.5-60.0); Mean Corpuscular HGB Conc 32.7 g/dL (29.9-35.2); Mean Corpuscular Hemoglobin 27.9 pg (26.7-34.0); Mean Corpuscular Volume 85.4 fL (81.0-99.0); Monocytes Absolute Auto 0.3 10^3/uL (0.3-0.8); Monocytes Percent Auto 3.3 % (1.7-12.0); Neutrophils Absolute Auto 6.6 10^3/uL (1.4-6.5); Neutrophils Percent Auto 71.6 % (43.0-75.0); Platelet Count 392 10^3/uL (150-450); Red Blood Count 4.87 10^6/uL (4.20-5.40); Red Cell Distribution Width 13.9 % (11.0-15.0); White Blood Count 9.2 10^3/uL (4.0-11.0)
[2024-07-15 09:15] LABS: Amphetamine Screen Urine NEGATIVE (NEGATIVE); Barbiturates Screen Urine NEGATIVE (NEGATIVE); Benzodiazepines Screen Urine NEGATIVE (NEGATIVE); Buprenorphine Screen Urine NEGATIVE (NEGATIVE); Cannabinoid Screen Urine NEGATIVE (NEGATIVE); Cocaine Screen Urine NEGATIVE (NEGATIVE); Methadone Screen Urine NEGATIVE (NEGATIVE); Methamphetamines Screen Urine NEGATIVE (NEGATIVE); Opiate Screen Urine NEGATIVE (NEGATIVE); Oxycodone Screen Urine NEGATIVE (NEGATIVE); Phencyclidine Screen Urine NEGATIVE (NEGATIVE); Tricyclic Antidepressant Urine NEGATIVE (NEGATIVE)
[2024-07-16 06:08] LABS: HBsAg Screen Negative (Negative); HCV Ab Non Reactive (Non Reactive); HIV Ab/p24 Ag Screen Non Reactive (Non Reactive)
[2024-07-16 07:08] LABS: Rubella Antibodies, IgG 1.77 index (Immune >0.99)
[2024-07-16 11:08] LABS: Rapid Plasma Reagin, Quant Non Reactive titer (NonRea<1:1)
== END 2024-07-15 07:54 | disposition home or self-care (01) ==
LOC: LAB 07:54
PROVIDERS: PCP Family Medicine; Visit Provider Obstetrics & Gynecology
DX: Z34.01 Encounter for supervision of normal first pregnancy, first trimester (principal); N92.6 Irregular menstruation, unspecified
CPT/HCPCS: 36415; 80307; 83036; 85025; 86592; 86762; 86803; 86850; 86900; 86901; 87086; 87340; 87389

== ENCOUNTER 2024-08-19 07:05 | Outpatient (OUT) | payer BC, SELFPAY ==
[2024-08-19 08:25] LABS: Glucose 1 Hour 182 mg/dL (<130)
== END 2024-08-19 07:06 | disposition home or self-care (01) ==
LOC: LAB 07:06
PROVIDERS: PCP Family Medicine; Visit Provider Obstetrics & Gynecology
DX: Z13.1 Encounter for screening for diabetes mellitus (principal)
CPT/HCPCS: 36415; 82950

== ENCOUNTER 2024-08-23 07:19 | Outpatient (OUT) | payer BC, SELFPAY ==
--- OUTSIDE RECORDS SUMMARY | 2024-08-23 07:26 | XMS_ITS | CCD ---
Author Organization [facility] Care Team Providers Care Staining Machine Operator Name Role Phone BECK, DR ADEBAYO Oropeza [...] Unavailable Solares, Adebayo Primary Care Unavailable Jaret BAG LOADER-WEB SOLUTIONS ARCHITECTIsabella Attending Unavaila ble SolaresAdebayo Primary Care Unavailable Jaret BAG LOADER-WEB SOLUT[employer] ARCHITECTIsabella Attending Unavaila ble Solares, Adebayo Primary Care Unavailable SolaresAdebayo Consulting Unavailable Solares, Adebayo Referring Unavailable EMEKA HERNANDEZ Referring Unavailable Solares Adebyao GOYAL Primary Care Provider [phone] MARIANA NEWMAN Referring Unavailable CHALINO, VIRAL Referring Unavailable TRENT, MARIANA Attending Unavailable GRAEME GUEVARA Attending Unavailable TRENT, MARIANA Referring Unavailable CHALINO, VIRAL Referring Unavailable CHALINO, VIRAL Referring Unavailable TRENT, MARIANA Referring Unavailable TRENT, MARIANA Referring Unavailable TRENT, MARIANA Referring Unavailable TRENT, MARIANA Referring Unavailable CHALINO, VIRAL Referring Unavailable TRENT, MARIANA Referring Unavailable CHALINO, VIRAL Referring Unavailable CHALINO, VIRAL Referring Unavailable CHALINO, VIRAL Referring Unavailable TESSY ARAIZA Attending Unavailable RIDDHI, KENN Attending Unavailable RIDDHI, KENN Attending Unavailable TRAYMAUREEN Attending Unavailable RIDDHI, KENN Attending Unavailable TRAYMAUREEN Attending Unavailable Allergies Allergy Classification Reported Allergen(s) Allergy Type Date of Onset Reaction(s) Facility (1 source) No Known Medication Allergies; Translations: [No Known Medication Allergies] Propensity to adverse reactions to drug (disorder) [facility] Repository Medications Current Medications Medication Drug [...] omeprazole 40 mg delayed release oral capsule (20 sources) Proton Pump Inhibitor omeprazole (PriLOSEC) [address] capsule Take 20 mg by mouth in the morning. Take before meals. Active ondansetron 4 mg disintegrating oral tablet (5 sources) Serotonin-3 Receptor Antagonist Start: 07-28-2024 End: 08-27-2024 take 1 tablet by mouth every six hours as needed for nausea and vomiting and nausea and nausea ondansetron ODT (Zofran-ODT) 4 MG disintegrating tablet Indications: Nausea Take 1 tablet (4 mg) by mouth every 6 (six) hours if needed for nausea or vomiting 30 tablet 2 07/28/2024 08/27/2024 Active Start: 06-19-2024 End: 07-19-2024 take 1 tablet by mouth every six hours as needed for nausea and vomiting and nausea and nausea ondansetron ODT (Zofran-ODT) 4 MG disintegrating tablet Indications: Nausea Take 1 tablet (4 mg) by mouth every 6 (six) hours if needed for nausea or vomiting 30 tablet 2 06/19/2024 07/19/2024 Active Completed/Discontinued Medications Medication Drug Class(es) Dates Sig (Normalized) Sig (Original) azithromycin 250 mg oral tablet (3 sources) Macrolide Antimicrobial Start: 07-28-2024 End: 08-19-2024 azithromycin (Zithromax Z-Roman) 250 MG tablet Indications: Sinus congestion As directed 6 tablet 07/28/2024 08/19/2024 Discontinued (Therapy completed) Problems Active Problems Problem Classification Problem Date Documented Date Episodic/Chronic Benign neoplasm of uterus (1 source) Uterine leiomyoma; Translations: [Leiomyoma of uterus, unspecified] 01-16-2024 Episodic Diabetes mellitus without complication (2 sources) Abnormal glucose tolerance test; Translations: [Other abnormal glucose] 08-19-2024 Episodic Female infertility (2 sources) Female infertility; Translations: [Female infertility, unspecified] 12-25-2023 Chronic Headache; including migraine (4 sources) Headache; including migraine; Translations: [HEADACHE UNSPECIFIED] Onset: 12-20-2021 Immunizations and screening for infectious disease (2 sources) Exposure to sexually transmissible disorder; Translations: [Contact with and (suspected) exposure to infections with a predominantly sexual mode of transmission] 08-19-2024 Episodic Other aftercare (2 sources) Surgical follow-up; Translations: [...] abnormal uterine and vaginal bleeding] 12-25-2023 Chronic Other and delivery including normal (4 sources) Second trimester ; Translations: [Encounter for supervision of normal , unspecified, second trimester] 07-22-2024 Episodic Other screening for suspected conditions (not mental disorders or infectious disease) (6 sources) Patient encounter status; Translations: [Encounter for screening for diabetes mellitus] 07-22-2024 Episodic Residual codes; unclassified (2 sources) Obstructive sleep apnea (adult) (pediatric); Translations: [Obstructive sleep apnea (adult) (pediatric)] Onset: 04-24-2023 Chronic Residual codes; unclassified (2 sources) Gestation period, 14 weeks; Translations: [14 weeks gestation of ] 07-22-2024 Episodic Residual codes; unclassified (2 sources) Gestation period, 18 weeks; Translations: [18 weeks gestation of ] 08-19-2024 Episodic Past or Other Problems Problem Classification Problem Date Documented Da te Episodic/Chronic Cardiac dysrhythmias (7 sources) Palpitations; Translations: [PALPITATIONS] Onset: 11-15-2021 Episodic Syncope (3 sources) Syncope and collapse; Translations: [Syncope and collapse] Onset: 11-14-2022 Episodic Results Test Name Value Interpretation Reference Range Facil ity RECURRENT VAGINITIS (HTRX)on 08-20-2024 [facility]INAE 0 [facility] ATOPOBI[facility] V[facility] Not detected [facility] BVAB 2,3 (BACTERIAL VAGINOSIS ASSOCIATED BACTERIA 2, 3); MOBILUNCUS SPP [address] [facility] BVAB 2,3 (BACTERIAL VAGINOSIS ASSOCIATED BACTERIA 2, 3); MOBILUNCUS SPP Not detected [facility] AGUSTIN ALBICANS, PARAPSILOSIS, TROPICALIS [address] [facility] AGUSTIN ALBICANS, PARAPSILOSIS, TROPICALIS Not detected [facility] AGUSTIN GLABRATA 0 [facility] Hea lthcare AGUSTIN GLABRATA Not detected [facility] ealthcare [facility] Not [facility] CHLAMYDIA TRACHOMATIS [address] [facility] CHLAMYDIA TRACHOMATIS Not detected [facility] GARDNERELLA VAGINALIS [address] [facility] GARDNERELLA VAGINALIS Not detected [facility] MEGASPHAERA (TYPES 1, 2) [address] [facility] MEGASPHAERA (TYPES 1, 2) Not detected [facility] MYCOPLASMA GENITALIUM [address] [facility] MYCOPLASMA GENITALIUM Not detected [facility] NEISSERIA GONORRHOEAE [address] [facility] NEISSERIA GONORRHOEAE Not detected [facility] TRICHOMONAS VAGINALIS [address] [facility] TRICHOMONAS VAGINALIS Not detected [facility] GLUCOSE 1 HOURon 08-19-2024 Glucose [Mass/Vol] 182 mg/dL High NINF - 13 0 mg/dL [facility] Interpretation and review of laboratory results Abnormal [facility] Healthcar e Urinalysis macro (dipstick) panel (U)on 08-19-2024 Bilirubin, UA Positive Negative - 4(70) +++ mg/dL [facility] Comment on above: small Blood, UA Negative Negative - 50 Osmin/mcL [facility] Clarity, UA Clear [facility] Color, UA Yellow [facility] Healthcar e Glucose, UA Negative Negative - 2000(110) ++++ mg/dL [facility] Interpretation and review of laboratory results Abnormal [facility] Ketones, UA Positive Negative - 160(16) ++++ mg/dL [facility] Comment on above: 15 Leukocytes, UA Negative Negative - 500+++ Oumou/mcL [facility] Nitrite, UA Negative Negative - Positive [facility] pH, UA 6 5 - 9 [facility] Healthcar e Protein, UA Positive Negative - 1999(20) ++++ mg/dL [facility] Comment on above: 30 Spec Grav, UA 1.025 1 - 1.03 [facility] Urobilinogen, UA 0.2 0.2 - 12 mg/dL [facility] Urinalysis macro (dipstick) panel (U)on 07-22-2024 Bilirubin, UA Negative Negative - 4(70) +++ mg/dL [facility] Blood, UA Negative Negative - 50 Osmin/mcL [facility] Clarity, UA Clear [facility] re Color, UA Yellow [facility] e Glucose, UA Negative Negative - 1999(110) ++++ mg/dL [facility] Interpretation and review of laboratory results Abnormal [facility] Ketones, UA Positive Negative - 160(16) ++++ mg/dL [facility] Comment on above: trace Leukocytes, UA Negative Negative - 500+++ Oumou/mcL [facility] Nitrite, UA Negative Negative - Positive [facility] pH, UA 6.5 5 - 9 [facility] e Protein, UA Trace Negative - 1999(20) ++++ mg/dL [facility] Spec Grav, UA 1.025 1 - 1.03 [facility] Urobilinogen, UA 0.2 0.2 - 12 mg/dL [facility] MLR HEMOGLOBIN A1Con 025 Glucose [Mass/Vol] 111 mg/dL [facility] HbA1c (Bld) [Mass fraction] 5.5 % 4.5 - 6.2 % [facility] Comment on above: ADA RECOMMENDED LIMI T 4.0 - 6.0 ADA THERAPEUTIC TARGET < 7.0 ACTION SUGGESTED > 7.0 [facility] US OB TRANSVAGINALon 025 US OB TRANSVAGINAL [...] II, MD, PHD at 20-Jun-2024 08:24:08 AM [facility] Normal Not Available Comment on above: Order Comment: US OB TRANSVAGINAL No LMP recorded. TBH PREG QUANT HCGon 05-20- 025 HCG QUANTITATIVE 2792 mIU/mL [facility] lthcare Comment on above: 5-50 0.2-1 WEEK 50-500 1-2 WEEKS 100-5,000 2-3 WEEKS 500-10,000 3-4 WEEKS 1,000-50,000 4-5 WEEKS 10,000-100,000 5-6 WEEKS 15,000-200,000 6-8 WEEKS 10,000-100,000 2-3 MONTHS [facility] TBH PREG QUANT HCGon 025 HCG QUANTITATIVE 713 mIU/mL [facility] Comment on above: 5-50 0.2-1 WEEK 50-500 1-2 WEEKS 100-5,000 2-3 WEEKS 500-10,000 3-4 WEEKS 1,000-50,000 4-5 WEEKS 10,000-100,000 5-6 WEEKS 15,000-200,000 6-8 WEEKS 10,000-100,000 2-3 MONTHS [facility] ALL CBC WITH AUTO DIFFon BASOPHILS ABSOLUTE AUTO 0.1 [facility] Basophils/100 WBC (Bld) 0.8 % 0.2 - 2.0 % [facility] Eosinophils/100 WBC (Bld) 3.5 % 0.9 - 7.0 % [facility] Erythrocyte distribution width (RBC) [Ratio] 13.2 % 11.0 - 15.0 % [facility] Hematocrit (Bld) [Volume fraction] 41.9 % 36.0 - 48.0 % [facility] Health[facility] e Hemoglobin (Bld) [Mass/Vol] 13.8 g/dL 12.0 - 16.0 g/dL [facility] IMMATURE GRANULOCYTES ABS AUTO 0.02 [facility] Immature granulocytes/100 WBC (Bld) 0.3 % 0.0 - 0.5 % [facility] LYMPHOCYTES ABSOLUTE AUTO 2.[address] [facility] Lymphocytes/100 WBC (Bld) 31.1 % 20.5 - 60.0 % [facility] MCH (RBC) [Entitic mass] 27.7 pg 26.7 - 34.[address] [facility] MCHC (RBC) [Mass/Vol] 32.9 g/dL 29.9 - 35.2 g/dL [facility] MCV (RBC) [Entitic vol] 84 fL 81.0 - 99.[address] [facility] MONOCYTES ABSOLUTE AUTO 0.[address] [facility] Monocytes/100 WBC (Bld) 6.6 % 1.7 - 12.0 % [facility] NEUTROPHILS ABSOLUTE AUTO 4.[address] [facility] Neutrophils/100 WBC (Bld) 57.7 % 43.0 - 75.0 % [facility] Platelet mean volume (Bld) [Entitic vol] 9.6 fL 9.5 - 13.5 fL [facility] Healthc are TBH EO # 0.3 [facility] TB PLT 429 [facility] TB RBC 4.99 [facility] TB WBC 8 [facility] ALL CBC WITH AUTO DIFFon BASOPHILS ABSOLUTE AUTO 0.1 [facility] Healthcare Basophils/100 WBC (Bld) 0.7 % 0.2 - 2.0 % [facility] Eosinophils/100 WBC (Bld) 3.7 % 0.9 - 7.0 % [facility] Erythrocyte distribution width (RBC) [Ratio] 13.2 % 11.0 - 15.0 % [facility] Hematocrit (Bld) [Volume fraction] 42.2 % 36.0 - 48.0 % [facility] Hemoglobin (Bld) [Mass/Vol] 14 g/dL 12.0 - 16.0 g/dL [facility] IMMATURE GRANULOCYTES ABS AUTO 0.01 [facility] Immature granulocytes/100 WBC (Bld) 0.1 % 0.0 - 0.5 % [facility] LYMPHOCYTES ABSOLUTE AUTO 2.6 [facility] Lymphocytes/100 WBC (Bld) 37.7 % 20.5 - 60.0 % [facility] MCH (RBC) [Entitic mass] 28.1 pg 26.7 - 34.0 pg [facility] MCHC (RBC) [Mass/Vol] 33.2 g/dL 29.9 - 35.2 g/dL [facility] MCV (RBC) [Entitic vol] 84.6 fL 81.0 - 99.0 fL [facility] MONOCYTES ABSOLUTE AUTO 0.4 [facility] Monocytes/100 WBC (Bld) 5.9 % 1.7 - 12.0 % [facility] Healthcare NEUTROPHILS ABSOLUTE AUTO 3.6 [facility] Neutrophils/100 WBC (Bld) 51.9 % 43.0 - 75.0 % [facility] Platelet mean volume (Bld) [Entitic vol] 9.8 fL 9.5 - 13.5 fL [facility] EO # 0.3 [facility] TBH PLT 438 [facility] RBC 4.99 [facility] WBC 7 [facility] Office Visiton 12-25-2023 Follow-up visit [id number] Andressa Prasad 1990 F Date Provider Department Center 12/25/2023 Maria G-MARIANA NEWMAN CARD [facility] Family History Problem Relation Age of Onset Atrial fibrillation Mother Diabetes Father Kidney disease Father Heart attack Maternal Grandmother Family Status - Relation Status Age at Mother Father Maternal Grandmother Level of Service:39298 AL OFFICE/OUTPATIENT ESTABLISHED LOW MDM 20 MIN Normal [facility] Cytology Cervical or vaginal smear or scraping studyon 12-13-2023 [facility] HCG QUALITATIVE*on 4 [facility] , QUAL Negative NEGATIVE [facility] Office Visiton 09-19-2023 Follow-up visit [id number] Andressa Prasad 1990 F Date Provider Department Center 09/19/2023 [id number] KYLIEMADELEINE VICTORIANO Koehler Family History Problem Relation Age of Onset Atrial fibrillation Mother Diabetes Father Kidney disease Father Heart attack Maternal Grandmother Family Status - Relation Status Age at Mother Father Maternal Grandmother Level of Service:66119 AL OFFICE/OUTPATIENT ESTABLISHED MOD MDM 30 MIN Normal [facility] Sleep Medicine Consultationo n 05-16-2022 [...] She can be sleepy during the day. [place] Sleepiness Scale score: 12. She is [...] her clinical (more content not included)... Normal [facility] CT HEAD WO CONon 12-21-2021 CT [...] CARLOS GALE Date: 2021-12-21 07:15 Normal [facility] [address] TEMPORAL BONES WO CONon 0 12-21-2021 [...] foramen are normal. Visualized paranasal sinuses clear. Automatic I Threading Machine Feeder spaces normal. Orbital contents unremarkable. Posterior fossa structures normal. IMPRESSION: Normal CT of the temporal bones. Electronically authenticated by: LOUIS BRAY Date: 2021-12-21 16:11 Normal [facility] Comprehensive Metabolic Empo n 05-10-2021 Albumin [Mass/Vol] 4.1 g/dL Normal 3.2-5.5 [facility] Comment on above: Performed By: #### E BS LIPID, EBS A1C, EBS CMP #### [facility] [address] [id number] [place] Albumin/Globulin [Mass ratio] 1.3 {ratio} Normal [facility] Comment on above: Performed By: #### E BS LIPID, EBS A1C, EBS CMP #### [facility] [address] [id number] [place] ALP [Catalytic activity/Vol] 77 U/L Normal 32-92 [facility] Comment on above: Performed By: #### E BS LIPID, EBS A1C, EBS CMP #### [facility] [address] [place] [address] [place] ALT [Catalytic activity/Vol] 19 U/L Normal 10-60 [facility] Comment on above: Performed By: #### E BS LIPID, EBS A1C, EBS CMP #### [facility] [address] [place] [address] [place] AST [Catalytic activity/Vol] 18 U/L Normal 10-42 [facility] Comment on above: Performed By: #### E BS LIPID, EBS A1C, EBS CMP #### [facility] [address] Bilirubin [Mass/Vol] 0.3 mg/dL Normal 0.3-1.2 [facility] Comment on above: Performed By: #### E BS LIPID, EBS A1C, EBS CMP #### [facility] [address] Calcium [Mass/Vol] 9.2 mg/dL Normal 8.2-10.2 [facility] Comment on above: Performed By: #### E BS LIPID, EBS A1C, EBS CMP #### [address] Chloride [Moles/Vol] 104 mmol/L Normal 95-114 [facility] Comment on above: Performed By: #### E BS LIPID, EBS A1C, EBS CMP #### [address] CO2 [Moles/Vol] 24.1 mmol/L Normal 22.0-30.0 [facility] Comment on above: Performed By: #### E BS LIPID, EBS A1C, EBS CMP #### [address] Creatinine [Mass/Vol] 0.69 mg/dL Normal 0.44-1.03 [facility] Comment on above: Performed By: #### E BS LIPID, EBS A1C, EBS CMP #### [address] Estimated GFR ( Liz > 60 [facility] Comment on above: Result Comment: GFR estimated reference range: According to KDOQI guidelines, <60 ml/min/1.73m2 is sufficient to diagnose a patient with chronic kidney disease. Performed By: #### E BS LIPID, EBS A1C, EBS CMP #### [address] Estimated GFR (Non- Am > 60 [facility] Comment on above: Performed By: #### E BS LIPID, EBS A1C, EBS CMP #### [address] Globulin (S) [Mass/Vol] 3.1 g/dL Normal [facility] Comment on above: Performed By: #### E BS LIPID, EBS A1C, EBS CMP #### [facility] [address] Glucose [Mass/Vol] 106 mg/dL High 70-100 [facility] Comment on above: Result Comment: ADA recommended reference range Performed By: #### E BS LIPID, EBS A1C, EBS CMP #### [facility] [address] Potassium [Moles/Vol] 4.0 mmol/L Normal 3.5-5.1 [facility] Comment on above: Performed By: #### E BS LIPID, EBS A1C, EBS CMP #### [address] Protein [Mass/Vol] 7.2 g/dL Normal 6.1-7.9 [facility] Comment on above: Performed By: #### E BS LIPID, EBS A1C, EBS CMP #### [address] Sodium [Moles/Vol] 137 mmol/L Normal 136-146 [facility] Comment on above: Performed By: #### E BS LIPID, EBS A1C, EBS CMP #### [place] [address] [place] Urea nitrogen [Mass/Vol] 10 mg/dL Normal 9-23 [facility] Comment on above: Performed By: #### E BS LIPID, EBS A1C, EBS CMP #### [facility] [address] EBS A1C with Estimated Ave Primo abigail 05-10-2021 Glucose [Mass/Vol] 111 mg/dL Normal [facility] Comment on above: Result Comment: PERF ORMED BY: [place] [address] PATHOLOGIST [employer] HEATER OPERATOR JERRY RAMSEY M.D. Performed By: #### E BS LIPID, EBS A1C, EBS CMP #### [address] [place] [address] [place] HbA1c (Bld) [Mass fraction] 5.5 % Normal 4.3-5.6 [facility] Comment on above: Result Comment: Incr eased risk for diabetes: 5.7 - 6.4 diabetes: >6.4 glycemic control for adults with diabetes: <7.0 Performed By: #### E BS LIPID, EBS A1C, EBS CMP #### [facility] [address] Lipid Profileon 05-10-2021 Cholesterol [Mass/Vol] 202 mg/dL High 140-200 [facility] Comment on above: Result Comment: Chol less than 200 mg/dl low risk Chol 201-239 mg/dl borderline risk Chol 240 mg/dl and greater high risk Performed By: #### E BS LIPID, EBS A1C, EBS CMP #### [facility] [address] [place] [address] Cholesterol in HDL [Mass/Vol] 37 mg/dL Normal 35-85 [facility] Comment on above: Result Comment: HDL CHOL ATP-III CLASSIFICATION Cardiovascular Risk HDL > or equal to 60 mg/dL LOW HDL < 40 mg/dL HIGH Performed By: #### E BS LIPID, EBS A1C, EBS CMP #### [address] Cholesterol.total/Ch olesterol in HDL [Mass ratio] 5.5 {ratio} Normal <5.0 [facility] Comment on above: Result Comment: PERF ORMED BY: [place] [address] PATHOLOGIST [employer] HE[employer] OPERATOR JERRY RAMSEY M.D. Performed By: #### E BS LIPID, EBS A1C, EBS CMP #### [address] LDL Cholesterol,Calculat ed 125 mg/dL High 0-100 [facility] Comment on above: Result Comment: LDL ATP III CLASSIFICATION LDL less than 100 mg/dL Optimal LDL 100-129 mg/dL Near or above optimal LDL 130-159 mg/dL Borderline high LDL 160-189 mg/dL High LDL greater than 189 mg/dL Very high Performed By: #### E BS LIPID, EBS A1C, EBS CMP #### [facility] [address] [place] [address] [place] Triglyceride w/Reflex 199 mg/dL High 35-149 [facility] Comment on above: Result Comment: TRIG ATP III CLASSIFICATION TRIG less than 150 mg/dL Normal TRIG 150-199 mg/dL Borderline high TRIG 200-500 mg/dL High TRIG greater than 500 mg/dL Very high Standard traceable to the Center for Disease Conrtrol and Prevention (CDC) test method. Performed By: #### E BS LIPID, EBS A1C, EBS CMP #### [facility] [address] [id number] [facility] VLDL CHOLESTEROL 39 mg/dL Normal [facility] Comment on above: Performed By: #### E BS LIPID, EBS A1C, EBS CMP #### [facility] [address] [place] [address] [facility] Vital Signs Date Time Vital Sign Value Performing Clinician Ronaldo coello 08-19-2024 14:52-0400 Body mass index (BMI) [Ratio] 37.57 kg/m2 Maureen Feliz PA Work Phone: [facility] 08-19-2024 14:52-0400 Body weight 125.65 kg Maureen Feliz PA Work Phone: [facility] 08-19-2024 14:52-0400 Diastolic blood pressure 78 mm[Hg] Maureen Feliz PA Work Phone: [facility] 08-19-2024 14:52-0400 Systolic blood pressure 128 mm[Hg] Maureen Feliz PA Work Phone: [facility] 07-22-2024 09:47-0400 Body mass index (BMI) [Ratio] 37.3 kg/m2 Kenn Riddhi DO Work Phone: [facility] 07-22-2024 09:47-0400 Body weight 124.74 kg Kenn Riddhi DO Work Phone: [facility] 07-22-2024 09:47-0400 Diastolic blood pressure 86 mm[Hg] Kenn Riddhi DO Work Phone: [facility] 07-22-2024 09:47-0400 Systolic blood pressure 130 mm[Hg] Kenn Riddhi DO Work Phone: [facility] 02-19-2024 14:07-0500 Body mass index (BMI) [Ratio] 37.95 kg/m2 Maureen Feliz PA Work Phone: [facility] 02-19-2024 14:07-0500 Body weight 126.92 kg Maureen Feliz PA Work Phone: [facility] 02-19-2024 14:07-0500 Diastolic blood pressure 74 mm[Hg] Maureen Feliz PA Work Phone: [facility] 02-19-2024 14:07-0500 Systolic blood pressure 114 mm[Hg] Maureen Feliz PA Work Phone: [facility] 01-16-2024 16:38-0400 Body height 182.9 cm Kenn Riddhi DO Work Phone: [facility] 01-16-2024 16:38-0400 Body mass index (BMI) [Ratio] 37.57 kg/m2 Kenn Riddhi DO Work Phone: [facility] 01-16-2024 16:38-0400 Body weight 125.65 kg Kenn Riddhi DO Work Phone: [facility] 01-16-2024 16:38-0400 Diastolic blood pressure 80 mm[Hg] Kenn Riddhi DO Work Phone: [facility] 01-16-2024 16:38-0400 Systolic blood pressure 124 mm[Hg] Kenn Riddhi DO Work Phone: [facility] 12-25-2023 10:12-0400 Body height 182.9 cm Kenn Riddhi DO Work Phone: [facility] 12-25-2023 10:12-0400 Body mass index (BMI) [Ratio] 37.57 kg/m2 Kenn Riddhi DO Work Phone: [facility] 12-25-2023 10:12-0400 Body weight 125.65 kg Kenn Riddhi DO Work Phone: [facility] 12-25-2023 10:12-0400 Diastolic blood pressure 84 mm[Hg] Kenn Riddhi DO Work Phone: [facility] 12-25-2023 10:12-0400 Systolic blood pressure 122 mm[Hg] Kenn Riddhi DO Work Phone: [facility] Healthcare Encounters Encounter Date Encounter Type Care Provider Facility Start: 08-19-2024 End: 08-19-2024 flow sheet Maureen SINGLETON Work Phone: [facility] Comment on above: Exposure to STD; Second trimester ; 18 weeks gestation of ; Need for maternal serum alpha-protein (MSAFP) screening; Screening, , for anatomic survey; Elevated glucose tolerance test Start: 08-19-2024 End: 08-19-2024 ambulatory MAUREEN FELIZ Not Available Start: 08-19-2024 End: 08-19-2024 Clinisync Result Encounter Kenn Riddhi DO Work Phone: [facility] External Department Unsolicited Start: 08-19-2024 End: 08-20-2024 Clinisync Result Encounter Kenn Riddhi DO Work Phone: [facility] External Department Unsolicited Start: 08-19-2024 End: 08-20-2024 External Result Encounter Maureen SINGLETON Work Phone: [facility] External Department Unsolicited Start: 07-22-2024 End: 07-22-2024 Bamboo flowsheet Kenn Riddhi DO Work Phone: [facility] Start: 07-22-2024 End: 07-22-2024 Bamboo flowsheet Kenn Riddhi DO Work Phone: [facility] Start: 07-22-2024 End: 07-22-2024 flow sheet Kenn Riddhi DO Work Phone: [facility] Comment on above: Second trimester pre gnancy; 14 weeks gestation of ; Diabetes mellitus screening Start: 07-22-2024 End: 07-22-2024 ambulatory KENN RIDDHI Not Available Start: 07-15-2024 End: 07-15-2024 Clinisync Result Encounter Kenn Riddhi DO Work Phone: [facility] Department Unsolicited Start: 07-15-2024 End: 07-15-2024 Clinisync Result Encounter Kenn Riddhi DO Work Phone: [facility] Unsolicited Start: 06-26-2024 ambulatory [facility] Start: 06-19-2024 End: 06-19-2024 ambulatory TESSY ARAIZA Not Available Start: 05-21-2024 ambulatory [facility] Start: 05-20-2024 End: 05-20-2024 Clinisync Result Encounter Kenn Riddhi DO Work Phone: [facility] Department Unsolicited Start: 05-20-2024 End: 05-20-2024 Clinisync Result Encounter Kenn Riddhi DO Work Phone: [facility] Unsolicited Start: 05-17-2024 End: 05-17-2024 Clinisync Result Encounter Kenn Riddhi DO Work Phone: [facility] Unsolicited Start: 05-17-2024 End: 05-17-2024 Clinisync Result Encounter Kenn Riddhi DO Work Phone: [facility] Unsolicited Start: 04-21-2024 ambulatory [facility] Start: 04-14-2024 ambulatory [facility] Start: 03-07-2024 ambulatory [facility] Start: 02-25-2024 ambulatory [facility] Start: 02-19-2024 End: 02-19-2024 Anna SINGLETON Work Phone: [facility] Start: 02-19-2024 End: 02-19-2024 Anna SIGNLETON Work Phone: [facility] Start: 02-19-2024 End: 02-19-2024 Postop follow up visit related to original px Maureen Feliz PA Work Phone: [facility] Comment on above: Postop check Start: 02-19-2024 End: 02-19-2024 ambulatory MAUREEN FELIZ Not Available Start: 02-14-2024 ambulatory [facility] Start: 02-08-2024 End: 02-08-2024 Clinisync Result [...] External Department Unsolicited Start: 01-16-2024 ambulatory [facility] Start: 01-16-2024 End: 01-16-2024 Office outpatient visit 15 minutes Kenn Riddhi DO Work Phone: [facility] Comment on above: Pre-op examination; Uterine leiomyoma, unspecified location Start: 01-16-2024 End: 01-16-2024 Preprocedural examination done Kenn Riddhi DO Work Phone: [facility] Start: 01-16-2024 End: 01-16-2024 ambulatory KENN [...] uterine bleeding Start: 12-25-2023 End: 12-25-2023 ambulatory [facility] Start: 12-11-2023 End: 12-11-2023 Clinisync Result Encounter Tessy Araiza DO Work Phone: [facility] External Department Unsolicited Start: 12-11-2023 End: 12-11-2023 Clinisync Result Encounter Tessy Araiza DO Work Phone: [facility] External Department Unsolicited Start: 11-20-2023 ambulatory [facility] Start: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
[2024-08-23 08:24] LABS: Glucose Fasting 110 mg/dL (<95)
[2024-08-23 08:57] LABS: Glucose 1 Hour 173 mg/dL (<180)
[2024-08-23 10:00] LABS: Glucose 2 Hour 131 mg/dL (<155)
[2024-08-23 11:21] LABS: Glucose 3 Hour 67 mg/dL (<140)
[2024-08-25 19:20] LABS: AFP Value 38.5 ng/mL (.); Insulin Dep Diabetes No (.); OSBR Risk 1 IN 8647 (.); Results Report (.)
== END 2024-08-23 07:20 | disposition home or self-care (01) ==
PROVIDERS: PCP Family Medicine; Visit Provider Physician Assistant
DX: Z34.92 Encounter for supervision of normal pregnancy, unspecified, second trimester (principal); R73.09 Other abnormal glucose; Z36.1 Encounter for antenatal screening for raised alphafetoprotein level
CPT/HCPCS: 36415; 82105; 82951; 82952

== ENCOUNTER 2024-10-30 19:08 | Outpatient (OUT) | payer BC, SELFPAY ==
--- NOTE | 2024-10-30 19:10 | US_ITS ---
The [address] [address] Patient Name: JAVID TRIPLETT MRN: [id number] date: 1990 Sex: F Assigned Patient Location: Current Patient Location: Accession/Order Number: [id number] Exam Date: 10/31/2024 07:37 Report Date: 10/31/2024 07:41 At the request of: STANISLAW FELIZ Procedure: US OB growth ULTRASOUND OB GROWTH CLINICAL DATA: size and consistent with dates COMPARISON: None There is a single live intrauterine gestation in cephalic presentation. There is cardiac and somatic activity with heart rate of 142 bpm. The amniotic fluid volume measures 19.1 cm which is in normal range. The following measurements were obtained: Biparietal diameter 7.5 cm 30 weeks 0 days 88% Head circumference 27.3 cm 29 weeks 6 days 66% Abdominal circumference 24.7 cm 29 weeks 0 days 64% Femur length 5.5 cm 29 weeks 0 days 56% The composite ultrasound age based these measurements is 29 weeks 3 days +/- 2 weeks 0 days. Reported gestational age based on prior information is 28 weeks 2 days. This is still within standard deviation of expected interval growth since the prior. The estimated weight is 2 lbs. 15 oz. +/- 7 ounces (70%). US/US OB growth IMPRESSION: SINGLE LIVE INTRAUTERINE GESTATION WITH ESTIMATED ULTRASOUND AGE OF 29 WEEKS 3 DAYS. Impression dictated by: Katarzyna Crow M.D. 10/31/2024 7:41 AM Dictation Location: [place] [address] Electronically authenticated by: [id number] Y Date: 10/31/2024 07:41
--- OUTSIDE RECORDS SUMMARY | 2024-10-30 19:11 | XMS_ITS | CCD ---
Author Organization [facility] Care Team Providers Care Program Director/Music Director Name Role Phone BECK, DR ADEBAYO Oropeza [...] Unavailable Solares, Adebayo Primary Care Unavailable Jaret MANAGER OF GLOBAL-MONITORING ANALYST, Isabella Sepulveda Attending Unavaila ble Solares, Adebayo Primary Care Unavailable Jaret MANAGER OF GLOBAL-MONITORING ANALYST, Isabella Sepulveda Attending Unavaila ble Solares, Adebayo Primary Care Unavailable Solares, Adebayo Consulting Unavailable Solares, Adebayo Referring Unavailable LILIANAAZEMEKA Arevalo Referring Unavailable Solares Adebayo GOYAL Primary Care Provider KENN HANNON Attending Unavailable MAUREEN FELIZ Attending Unavailable RIDDHI, KENN Attending Unavailable TESSY ARAIZA Attending Unavailable RIDDHI, KENN Attending Unavailable RIDDHI, KENN Attending Unavailable TRAYMAUREEN Attending Unavailable TRAYMAUREEN Attending Unavailable TRENTMARIANA Referring Unavailable TRENT, MARIANA Referring Unavailable TRENTMARIANA Attending Unavailable TRENTMARIANA Attending Unavailable TRENTMARIANA Referring Unavailable CHALINO, VIRAL Referring Unavailable TRENT, MARIANA Referring Unavailable TRENT, MARIANA Referring Unavailable CHALINO, VIRAL Referring Unavailable TRENT, MARIANA Referring Unavailable TRENT, MARIANA Referring Unavailable TRENT, MARIANA Referring Unavailable Allergies Allergy Classification Reported Allergen(s) Allergy Type Date of Onset Reaction(s) Facility (1 source) No Known Medication Allergies; Translations: [No Known Medication Allergies] Propensity to adverse reactions to drug (disorder) [facility] Repository Medications Current Medications Medication Drug [...] Active ondansetron 4 mg disintegrating oral tablet (6 sources) Serotonin-3 Receptor Antagonist Start: 07-28-2024 End: [...] unspecified] 01-16-2024 Episodic Diabetes mellitus without complication (4 sources) Abnormal glucose tolerance test; Translations: [Other [...] other than malignant neoplasm] 02-19-2024 Episodic Other complications of (2 sources) size does not accord with dates; Translations: [Uterine size-date discrepancy, second trimester] 10-21-2024 Episodic Other endocrine disorders (2 sources) Polycystic ovary syndrome; Translations: [Polycystic ovarian syndrome] 12-25-2023 Chronic Other female genital disorders (2 sources) Abnormal uterine bleeding; Translations: [Other specified abnormal uterine and vaginal bleeding] 12-25-2023 Chronic Other and delivery including normal (8 sources) Second trimester ; Translations: [Encounter for [...] [18 weeks gestation of ] 08-19-2024 Episodic Residual codes; unclassified (2 sources) Gestation period, 22 weeks; Translations: [22 weeks gestation of ] 09-16-2024 Episodic Residual codes; unclassified (2 sources) Gestation period, 27 weeks; Translations: [27 weeks gestation of ] 10-21-2024 Episodic Syncope (1 source) Syncope and collapse; Translations: [Syncope and collapse] Onset: 12-12-2022 Episodic Past or Other Problems Problem Classification Problem Date Documented Da te Episodic/Chronic Cardiac dysrhythmias (7 sources) Palpitations; Translations: [PALPITATIONS] Onset: 11-15-2021 Episodic Results Test Name Value Interpretation Reference Range Facil ity Office Visiton 10-21-2024 Follow-up visit [id number] Andressa Prasad 1990 F Date Provider Department Center 10/21/2024 241-TRENTMARIANA Tan [facility] Family History Problem Relation Age of Onset Atrial fibrillation Mother Diabetes Father Kidney disease Father Heart attack Maternal Grandmother Family Status - Relation Status Age at Mother Alive Father Alive Maternal Grandmother Level of Service:13608 [place] OFFICE/OUTPATIENT ESTABLISHED LOW MDM 20 MIN Normal [facility] Urinalysis macro (dipstick) panel (U)on 10-21-2024 Bilirubin, UA Negative Negative - 4(70) +++ mg/dL [facility] Blood, UA Negative Negative - 50 Osmin/mcL [facility] Clarity, UA Clear [facility] re Color, UA Yellow [facility] Glucose, UA Negative Negative - 1999(110) ++++ mg/dL [facility] Interpretation and review of laboratory results Abnormal [facility] Ketones, UA Positive Negative - 160(16) ++++ mg/dL [facility] Leukocytes, UA Negative Negative - 500+++ Oumou/mcL [facility] Nitrite, UA Negative Negative - Positive [facility] pH, UA 5.5 5 - 9 [facility] Protein, UA Negative Negative - 2000(20) ++++ mg/dL [facility] Spec Grav, UA 1.02 1 - 1.03 [facility] Urobilinogen, UA 1.0 0.2 - 12 mg/dL [facility] US OB 14+ WEEKS ANATOMY SCAN on 09-16-2024 US OB 14+ WEEKS ANATOMY SCAN EXAM: US OB 14+ WEEKS ANATOMY SCAN HISTORY: anatomy. COMPARISON: Ob ultrasound 06/19/2024. TECHNIQUE: Two-dimensional transabdominal grayscale ultrasound imaging of the pelvis was performed. FINDINGS: Gestation: Single Presentation: Cephalic Cardiac Activity: 164 beats per minute Placental Location: Anterior with no sonographic abnormalities identified. Distance from Placental Tip to Cervix: 7.4 cm Cervical Length: 4.1 cm Amniotic Fluid: Appears adequate MEASUREMENTS: BPD: 5.5 cm EGA: 22 weeks 4 days HC: 20.5 cm EGA: 22 weeks 4 days AC: 18.3 cm EGA: 23 weeks 1 days FL: 3.9 cm EGA: 22 weeks 3 days HC/AC Ratio: 1.12 The gestational age by today's ultrasound is 22 weeks 5 days (+/- 11 days gestation). Estimated Weight: 533 grams, +/- 80 grams ( 1 lb 3 oz). Weight Percentile for gestational age: 61 % ANATOMY C-Spine: Unremarkable T-Spine: Unremarkable L-Spine: Unremarkable Sacrum: Unremarkable Four Chamber Heart: Unremarkable LVOT: Suboptimally visualized RVOT: Suboptimally visualized Stomach: Unremarkable Kidneys: Unremarkable Bladder: Unremarkable Diaphragm: Suboptimally visualized Cord insertion: Unremarkable Cord vessels: Suboptimally visualized Lateral Ventricles: Unremarkable Cerebellum: Unremarkable Cisterna Magna: Unremarkable Posterior Fossa: Unremarkable Right Femur: Unremarkable Left Femur: Unremarkable Right Tib/Fib: Unremarkable Left Tib/Fib: Unremarkable Right Rad/Ulnar: Unremarkable Left Rad/Ulnar: Unremarkable Right Humerus: Unremarkable Left Humerus: Unremarkable Nose/Lips: Not visualized Profile: Unremarkable Orbits: Unremarkable IMPRESSION: 1. Single, live intrauterine gestation 22 weeks, 3 days by LMP. Today's ultrasound measurements correlate with a gestational age of 22 weeks 5 days. Estimated weight is 533 grams, +/- 80 grams ( 1 lb 3 oz) which correlates to 61 %. WILLIE is 01/15/2025. 2. Limited anatomy, as described above. A short-term follow-up ultrasound is recommended. Interpreted by: Electronically signed by THOMAS OLIVARES II, MD, PHD at 18-Sep-2024 08:49:14 AM [facility] Normal Not Available Comment on above: Order Comment: US OB ANATOMY SINGLE W US OB CERVICAL LENGTH Estimated Date of Delivery: 01/17/25 Gestational Age as of 08/19/2024: 18w3d Urinalysis macro (dipstick) panel (U)on 09-16-2024 Bilirubin, UA Negative Negative - 4(70) +++ mg/dL [facility] Blood, UA Negative Negative - 50 Osmin/mcL [facility] Clarity, UA Clear [facility] Color, UA Yellow [facility] Glucose, UA Negative Negative - 2000(110) ++++ mg/dL [facility] Interpretation and review of laboratory results Normal [facility] Ketones, UA Negative Negative - 160(16) ++++ mg/dL [facility] Leukocytes, UA Negative Negative - 500+++ Oumou/mcL [facility] Nitrite, UA Negative Negative - Positive [facility] pH, UA 6 5 - 9 [facility] e Protein, UA Negative Negative - 2000(20) ++++ mg/dL [facility] Spec Grav, UA 1.025 1 - 1.03 [facility] Urobilinogen, UA 0.2 0.2 - 12 mg/dL [facility] GLUCOSE TOLERANCE 3 HOURon 0 08-23-2024 GLUCOSE TOLERANCE 3 HOUR High mg/dL [facility] Comment on above: GLU FAST 110H (<95) Col: 08/23/24 0738 GLU 1HR 173 (<180) Col: 08/23/24 0839 GLU 2HR 131 (<155) Col: 08/23/24 0939 GLU 3HR 67 (<140) Col: 08/23/24 1040 Interpretation and review of laboratory results Abnormal [facility] e RECURRENT VAGINITIS (HTRX)on 08-20-2024 ATOPOBIUM VAGINAE 0 [facility] ATOPOBIUM VAGINAE Not detected [facility] BVAB 2,3 (BACTERIAL VAGINOSIS ASSOCIATED BACTERIA 2, 3); MOBILUNCUS SPP 0 [facility] BVAB 2,3 (BACTERIAL VAGINOSIS ASSOCIATED BACTERIA 2, 3); MOBILUNCUS SPP Not detected [facility] AGUSTIN ALBICANS, PARAPSILOSIS, TROPICALIS 0 [facility] AGUSTIN ALBICANS, PARAPSILOSIS, TROPICALIS Not detected [facility] AGUSTIN GLABRATA Not detected [facility] ealthcare AGUSTIN KRUSEI 0 [facility] hcare AGUSTIN KRUSEI Not detected [facility]care CHLAMYDIA TRACHOMATIS 0 [facility] CHLAMYDIA TRACHOMATIS Not detected [facility] GARDNERELLA VAGINALIS 0 [facility] GARDNERELLA VAGINALIS Not detected [facility] MEGASPHAERA (TYPES 1, 2) 0 [facility] MEGASPHAERA (TYPES 1, 2) Not detected [facility] MYCOPLASMA GENITALIUM 0 [facility] MYCOPLASMA GENITALIUM Not detected [facility] NEISSERIA GONORRHOEAE 0 [facility] NEISSERIA GONORRHOEAE Not detected [facility] TRICHOMONAS VAGINALIS 0 [facility] TRICHOMONAS VAGINALIS Not detected [facility] GLUCOSE 1 HOURon 08-19-2024 Glucose [Mass/Vol] 182 mg/dL High NINF - 13 0 mg/dL [facility] Interpretation and review of laboratory results Abnormal [facility] Urinalysis macro (dipstick) panel (U)on 08-19-2024 Bilirubin, UA Positive Negative - 4(70) +++ mg/dL [facility] Comment on above: small Blood, UA Negative Negative - 50 Osmin/mcL [facility] Clarity, UA Clear [facility] Color, UA Yellow [facility] Glucose, UA Negative Negative - 1999(110) ++++ mg/dL [facility] Interpretation and review of laboratory results Abnormal [facility] Ketones, UA Positive Negative - 160(16) ++++ mg/dL [facility] Comment on above: 15 Leukocytes, UA Negative Negative - 500+++ Oumou/mcL [facility] Nitrite, UA Negative Negative - Positive [facility] pH, UA 6 5 - 9 [facility] Protein, UA Positive Negative - 1999(20) ++++ mg/dL [facility] Comment on above: 30 Spec Grav, UA 1.025 1 - 1.03 [facility] Urobilinogen, UA 0.2 0.2 - 12 mg/dL [facility] Urinalysis macro (dipstick) panel (U)on 07-22-2024 Bilirubin, UA Negative Negative - 4(70) +++ mg/dL [facility] Blood, UA Negative Negative - 50 Osmin/mcL [facility] Clarity, UA Clear [facility] Health[facility] re Color, UA Yellow [facility] Glucose, UA Negative Negative - 1999(110) ++++ mg/dL [facility] Interpretation and review of laboratory results Abnormal [facility] Ketones, UA Positive Negative - 160(16) ++++ mg/dL [facility] Comment on above: trace Leukocytes, UA Negative Negative - 500+++ Oumou/mcL [facility] Nitrite, UA Negative Negative - Positive [facility] pH, UA 6.5 5 - 9 [facility] Protein, UA Trace Negative - 1999(20) ++++ mg/dL [facility] Spec Grav, UA 1.025 1 - 1.03 [facility] Urobilinogen, UA 0.2 0.2 - 12 mg/dL [facility] MLR HEMOGLOBIN A1Con 025 Glucose [Mass/Vol] 111 mg/dL [facility] HbA1c (Bld) [Mass fraction] 5.5 % 4.5 - 6.2 % [facility] Comment on above: ADA RECOMMENDED LIMI T 4.0 - 6.0 ADA THERAPEUTIC TARGET < 7.0 ACTION SUGGESTED > 7.0 [facility] e US OB TRANSVAGINALon 025 US OB [...] Doppler evaluation of the bilateral ovaries. Electronically Signed:Halima y signed by THOMAS OLIVARES II, MD, PHD at 20-Jun-2024 08:24:08 AM [facility] Normal Not Available Comment on above: Order Comment: US OB TRANSVAGINAL No LMP recorded. TBH PREG QUANT HCGon 025 HCG QUANTITATIVE 2792 mIU/mL [facility] Comment on above: 5-50 0.2-1 WEEK 50-500 1-2 WEEKS 100-5,000 2-3 WEEKS 500-10,000 3-4 WEEKS 1,000-50,000 4-5 WEEKS 10,000-100,000 5-6 WEEKS 15,000-200,000 6-8 WEEKS 10,000-100,000 2-3 MONTHS [facility] So1 e TBH PREG QUANT HCGon 025 HCG QUANTITATIVE 713 mIU/mL [facility]a l[facility]care Comment on above: 5-50 0.2-1 WEEK 50-500 1-2 WEEKS 100-5,000 2-3 WEEKS 500-10,000 3-4 WEEKS 1,000-50,000 4-5 WEEKS 10,000-100,000 5-6 WEEKS 15,000-200,000 6-8 WEEKS 10,000-100,000 2-3 MONTHS [facility] So1 e ALL CBC WITH AUTO DIFFon BASOPHILS ABSOLUTE AUTO 0.1 [facility] Basophils/100 WBC (Bld) 0.8 % 0.2 - 2.0 % [facility] Eosinophils/100 WBC (Bld) 3.5 % 0.9 - 7.0 % [facility] Erythrocyte distribution width (RBC) [Ratio] 13.2 % 11.0 - 15.0 % [facility] Hematocrit (Bld) [Volume fraction] 41.9 % 36.0 - 48.0 % [facility] So1 e Hemoglobin (Bld) [Mass/Vol] 13.8 g/dL 12.0 - 16.0 g/dL [facility] IMMATURE GRANULOCYTES ABS AUTO 0.02 [facility] Immature granulocytes/100 WBC (Bld) 0.3 % 0.0 - 0.5 % [facility] LYMPHOCYTES ABSOLUTE AUTO 2.5 [facility] Lymphocytes/100 WBC (Bld) 31.1 % 20.5 - 60.0 % [facility] MCH (RBC) [Entitic mass] 27.7 pg 26.7 - 34.0 pg [facility] MCHC (RBC) [Mass/Vol] 32.9 g/dL 29.9 - 35.2 g/dL [facility] MCV (RBC) [Entitic vol] 84 fL 81.0 - 99.0 fL [facility] MONOCYTES ABSOLUTE AUTO 0.5 [facility] Monocytes/100 WBC (Bld) 6.6 % 1.7 - 12.0 % [facility] NEUTROPHILS ABSOLUTE AUTO 4.6 [facility] Neutrophils/100 WBC (Bld) 57.7 % 43.0 - 75.0 % [facility] Platelet mean volume (Bld) [Entitic vol] 9.6 fL 9.5 - 13.5 fL [facility] are TBH EO # 0.3 [facility] PLT 429 [facility] RBC 4.99 [facility] WBC 8 [facility] ALL CBC WITH AUTO DIFFon BASOPHILS ABSOLUTE AUTO 0.1 [facility] Basophils/100 WBC (Bld) 0.7 % 0.2 - 2.0 % [facility] Eosinophils/100 WBC (Bld) 3.7 % 0.9 - 7.0 % [facility] Erythrocyte distribution width (RBC) [Ratio] 13.2 % 11.0 - 15.0 % [facility] Hematocrit (Bld) [Volume fraction] 42.2 % 36.0 - 48.0 % [facility] Hemoglobin (Bld) [Mass/Vol] 14 g/dL 12.0 - 16.0 g/dL [facility] IMMATURE GRANULOCYTES ABS AUTO 0.01 [facility] Immature granulocytes/100 WBC (Bld) 0.1 % 0.0 - 0.5 % [facility] Healthcare LYMPHOCYTES ABSOLUTE AUTO 2.6 [facility] Lymphocytes/100 WBC (Bld) 37.7 % 20.5 - 60.0 % [facility] MCH (RBC) [Entitic mass] 28.1 pg 26.7 - 34.0 pg [facility] MCHC (RBC) [Mass/Vol] 33.2 g/dL 29.9 - 35.2 g/dL [facility] MCV (RBC) [Entitic vol] 84.6 fL 81.0 - 99.0 fL [facility] MONOCYTES ABSOLUTE AUTO 0.4 [facility] Monocytes/100 WBC (Bld) 5.9 % 1.7 - 12.0 % [facility] NEUTROPHILS ABSOLUTE AUTO 3.6 [facility] Neutrophils/100 WBC (Bld) 51.9 % 43.0 - 75.0 % [facility] Platelet mean volume (Bld) [Entitic vol] 9.8 fL 9.5 - 13.5 fL [facility] EO # 0.3 [facility] TBH PLT 438 [facility] RBC 4.99 [facility] WBC 7 [facility] Office Visiton 12-25-2023 Follow-up visit [id number] Andressa Prasad 1990 F Date Provider Department Center 12/25/2023 SABA MARIANA CARD [facility] Family History Problem Relation Age of Onset Atrial fibrillation Mother Diabetes Father Kidney disease Father Heart attack Maternal Grandmother Family Status - Relation Status Age at Mother Father Maternal Grandmother Level of Service:82306 [place] OFFICE/OUTPATIENT ESTABLISHED LOW MDM 20 MIN Normal [facility] Cytology Cervical or vaginal smear or scraping studyon 12-13-2023 [facility] HCG QUALITATIVE*on 4 [facility] , QUAL Negative NEGATIVE [facility] Sleep Medicine Consultationo n 05-16-2022 Sleep Medicine [...] She can be sleepy during the day. [place] Sleepiness Scale score: 12. She is sleepy [...] her clinical (more content not included)... Normal [facility] CT HEAD WO CONon 12-21-2021 CT [...] CARLOS GALE Date: 2021-12-21 07:15 Normal [facility] CT TEMPORAL BONES WO CONon [...] foramen are normal. Visualized paranasal sinuses clear. Senior Lead Developer spaces normal. Orbital contents unremarkable. Posterior fossa structures normal. IMPRESSION: Normal CT of the temporal bones. Electronically authenticated by: LOUIS BRAY Date: 2021-12-21 16:11 Normal [facility] Comprehensive Metabolic Empo n 05-10-2021 Albumin [Mass/Vol] 4.1 g/dL Normal 3.2-5.5 [facility] Comment on above: Performed By: #### E BS LIPID, EBS A1C, EBS CMP #### [facility] [address] Albumin/Globulin [Mass ratio] 1.3 {ratio} Normal [facility] Comment on above: Performed By: #### E BS LIPID, EBS A1C, EBS CMP #### [facility] [address] [place] [address] [place] ALP [Catalytic activity/Vol] 77 U/L Normal 32-92 [facility] Comment on above: Performed By: #### E BS LIPID, EBS A1C, EBS CMP #### [facility] [address] [place] [id number] [place] ALT [Catalytic activity/Vol] 19 U/L Normal 10-60 [facility] Comment on above: Performed By: #### E BS LIPID, EBS A1C, EBS CMP #### [facility] [address] AST [Catalytic activity/Vol] 18 U/L Normal 10-42 [facility] Comment on above: Performed By: #### E BS LIPID, EBS A1C, EBS CMP #### [facility] [address] Bilirubin [Mass/Vol] 0.3 mg/dL Normal 0.3-1.2 [facility] Comment on above: Performed By: #### E BS LIPID, EBS A1C, EBS CMP #### [address] Calcium [Mass/Vol] 9.2 mg/dL Normal 8.2-10.2 [facility] Comment on above: Performed By: #### E BS LIPID, EBS A1C, EBS CMP #### [address] Chloride [Moles/Vol] 104 mmol/L Normal 95-114 [facility] Comment on above: Performed By: #### E BS LIPID, EBS A1C, EBS CMP #### [address] CO2 [Moles/Vol] 24.1 mmol/L Normal 22.0-30.0 [facility] Comment on above: Performed By: #### E BS LIPID, EBS A1C, EBS CMP #### [address] Creatinine [Mass/Vol] 0.69 mg/dL Normal 0.44-1.03 [facility] Comment on above: Performed By: #### E BS LIPID, EBS A1C, EBS CMP #### [place] [address] [place] Estimated GFR ( Liz > [address] [facility] Comment on above: Result Comment: GFR estimated reference range: According to KDOQI guidelines, <60 ml/min/1.73m2 is sufficient to diagnose a patient with chronic kidney disease. Performed By: #### E BS LIPID, EBS A1C, EBS CMP #### [facility] [address] [place] [address] [place] Estimated GFR (Non- Am > [address] [facility] Comment on above: Performed By: #### E BS LIPID, EBS A1C, EBS CMP #### [facility] [address] [place] [address] [place] Globulin (S) [Mass/Vol] 3.1 g/dL Normal [facility] Comment on above: Performed By: #### E BS LIPID, EBS A1C, EBS CMP #### [facility] [address] Glucose [Mass/Vol] 106 mg/dL High 70-100 [facility] Comment on above: Result Comment: ADA recommended reference range Performed By: #### E BS LIPID, EBS A1C, EBS CMP #### [facility] [address] [place] [address] [place] Potassium [Moles/Vol] 4.0 mmol/L Normal 3.5-5.1 [facility] Comment on above: Performed By: #### E BS LIPID, EBS A1C, EBS CMP #### [facility] [address] [place] [address] [place] Protein [Mass/Vol] 7.2 g/dL Normal 6.1-7.9 [facility] Comment on above: Performed By: #### E BS LIPID, EBS A1C, EBS CMP #### [facility] [address] [place] [address] [place] Sodium [Moles/Vol] 137 mmol/L Normal 136-146 [facility] Comment on above: Performed By: #### E BS LIPID, EBS A1C, EBS CMP #### [facility] [address] [place] [address] [place] Urea nitrogen [Mass/Vol] 10 mg/dL Normal 9-23 [facility] Comment on above: Performed By: #### E BS LIPID, EBS A1C, EBS CMP #### [facility] [address] [place] [address] [place] EBS A1C with Estimated Ave Primo hayes 05-10-2021 Glucose [Mass/Vol] 111 mg/dL Normal [facility] Comment on above: Result Comment: PERF ORMED BY: [place] [address] PATHOLOGIST REEL REPAIRER JERRY RAMSEY M.D. Performed By: #### E BS LIPID, EBS A1C, EBS CMP #### [facility] [address] [place] [address] [facility] HbA1c (Bld) [Mass fraction] 5.5 % Normal 4.3-5.6 [facility] Comment on above: Result Comment: Incr eased risk for diabetes: 5.7 - 6.4 diabetes: >6.4 glycemic control for adults with diabetes: <7.0 Performed By: #### E BS LIPID, EBS A1C, EBS CMP #### [facility] [address] Lipid Profileon 05-10-2021 Cholesterol [Mass/Vol] 202 mg/dL High 140-200 [facility] Comment on above: Result Comment: Chol less than 200 mg/dl low risk Chol 201-239 mg/dl borderline risk Chol 240 mg/dl and greater high risk Performed By: #### E BS LIPID, EBS A1C, EBS CMP #### [facility] [address] Cholesterol in HDL [Mass/Vol] 37 mg/dL Normal 35-85 [facility] Comment on above: Result Comment: HDL CHOL ATP-III CLASSIFICATION Cardiovascular Risk HDL > or equal to 60 mg/dL LOW HDL < 40 mg/dL HIGH Performed By: #### E BS LIPID, EBS A1C, EBS CMP #### [facility] [address] Cholesterol.total/Ch olesterol in HDL [Mass ratio] 5.5 {ratio} Normal <5.0 [facility] Comment on above: Result Comment: PERF ORMED BY: [facility] [address] [place] [address] PATHOLOGIST REEL REPAIRER JERRY RAMSEY M.D. Performed By: #### E BS LIPID, EBS A1C, EBS CMP #### [facility] [address] LDL Cholesterol,Calculat ed 125 mg/dL High 0-100 [facility] Comment on above: Result Comment: LDL ATP III CLASSIFICATION LDL less than 100 mg/dL Optimal LDL 100-129 mg/dL Near or above optimal LDL 130-159 mg/dL Borderline high LDL 160-189 mg/dL High LDL greater than 189 mg/dL Very high Performed By: #### E BS LIPID, EBS A1C, EBS CMP #### [facility] [address] Triglyceride w/Reflex 199 mg/dL High 35-149 [...] BS LIPID, EBS A1C, EBS CMP #### [facility] [address] VLDL CHOLESTEROL 39 mg/dL Normal [facility] Comment on above: Performed By: #### E BS LIPID, EBS A1C, EBS CMP #### [facility] [address] Vital Signs Date Time Vital Sign Value Performing Clinician Ronaldo coello 10-21-2024 08:41-0400 Body mass index (BMI) [Ratio] 38.44 kg/m2 Maureen SINGLETON Work Phone: [facility] 10-21-2024 08:41-0400 Body weight 128.55 kg Maureen SINGLETON Work Phone: [facility] 10-21-2024 08:41-0400 Diastolic blood pressure 78 mm[Hg] Maureen SINGLETON Work Phone: [facility] 10-21-2024 08:41-0400 Systolic blood pressure 124 mm[Hg] Maureen SINGLETON Work Phone: [facility] 09-16-2024 09:49-0400 Body mass index (BMI) [Ratio] 37.57 kg/m2 Kenn Hannon DO Work Phone: [facility] 09-16-2024 09:49-0400 Body weight 125.65 kg Kenn Riddhi DO Work Phone: [facility] 09-16-2024 09:49-0400 Diastolic blood pressure 76 mm[Hg] Kenn Riddhi DO Work Phone: [facility] 09-16-2024 09:49-0400 Systolic blood pressure 126 mm[Hg] Kenn Riddhi DO Work Phone: [facility] 08-19-2024 14:52-0400 Body mass index (BMI) [Ratio] 37.57 kg/m2 Maureen Tray PA Work Phone: [facility] 08-19-2024 14:52-0400 Body weight 125.65 kg Maureen Tray PA Work Phone: [facility] 08-19-2024 14:52-0400 Diastolic blood pressure 78 mm[Hg] Maureen Tray PA Work Phone: [facility] 08-19-2024 14:52-0400 Systolic blood pressure 128 mm[Hg] Amureen Tray PA Work Phone: [facility] 07-22-2024 09:47-0400 Body mass index (BMI) [Ratio] 37.3 kg/m2 Kenn Riddhi DO Work Phone: [facility] 07-22-2024 09:47-0400 Body weight 124.74 kg Kenn Riddhi DO Work Phone: [facility] 07-22-2024 09:47-0400 Diastolic blood pressure 86 mm[Hg] Kenn Riddhi DO Work Phone: [facility] 07-22-2024 09:47-0400 Systolic blood pressure 130 mm[Hg] Kenn Riddhi DO Work Phone: [facility] 02-19-2024 14:07-0500 Body mass index (BMI) [Ratio] 37.95 kg/m2 Maureen Tray PA Work Phone: [facility] 02-19-2024 14:07-0500 Body weight 126.92 kg Maureen SINGLETON Work Phone: [facility] 02-19-2024 14:07-0500 Diastolic blood pressure 74 mm[Hg] Maureen SINGLETON Work Phone: [facility] 02-19-2024 14:07-0500 Systolic blood pressure 114 mm[Hg] Maureen SINGLETON Work Phone: [facility] 01-16-2024 16:38-0400 Body height 182.9 cm Kenn Riddhi DO Work Phone: [facility] 01-16-2024 16:38-0400 Body mass index (BMI) [Ratio] 37.57 kg/m2 Kenn Riddhi DO Work Phone: [facility] 01-16-2024 16:38-0400 Body weight 125.65 kg Kenn Riddhi DO Work Phone: [facility] 01-16-2024 16:38-0400 Diastolic blood pressure 80 mm[Hg] Kenn Riddhi DO Work Phone: [facility] 01-16-2024 16:38-0400 Systolic blood pressure 124 mm[Hg] Kenn Riddhi DO Work Phone: [facility] 12-25-2023 10:12-0400 Body height 182.9 cm Kenn Riddhi DO Work Phone: [facility] 12-25-2023 10:12-0400 Body mass index (BMI) [Ratio] 37.57 kg/m2 Kenn Riddhi DO Work Phone: [facility] 12-25-2023 10:12-0400 Body weight 125.65 kg Kenn Riddhi DO Work Phone: [facility] 12-25-2023 10:12-0400 Diastolic blood pressure 84 mm[Hg] Kenn Riddhi DO Work Phone: [facility] 12-25-2023 10:12-0400 Systolic blood pressure 122 mm[Hg] Kenn Riddhi DO Work Phone: [facility] Encounters Encounter Date Encounter Type Care Provider Facility Start: 10-21-2024 End: 10-21-2024 Bamboo flowsheet Maureen SINGLETON Work Phone: [facility] Start: 10-21-2024 End: 10-21-2024 Bamboo flowsheet Maureen SINGLETON Work Phone: [facility] Start: 10-21-2024 End: 10-21-2024 ambulatory [facility] Start: 10-21-2024 End: 10-21-2024 flow sheet Maureen SINGLETON Work Phone: [facility] Comment on above: Size of fetus incons istent with dates in second trimester ([facility]) (Primary Dx); Second trimester ([facility]); 27 weeks gestation of ([facility]) Start: 10-21-2024 End: 10-21-2024 ambulatory MAUREEN FELIZ Not Available Start: 09-16-2024 End: 09-16-2024 ambulatory KENN RIDDHI Not Available Start: 09-16-2024 End: 09-16-2024 flow sheet Kenn Riddhi DO Work Phone: [facility] Comment on above: Second trimester pre gnancy; 22 weeks gestation of ; Elevated glucose tolerance test Start: 09-16-2024 End: 09-16-2024 ambulatory KENN RIDDHI Not Available Start: 09-02-2024 ambulatory [facility] Start: 08-23-2024 End: 08-23-2024 Clinisync Result Encounter Maureen SINGLETON Work Phone: [facility] Unsolicited Start: 08-23-2024 End: 08-23-2024 Clinisync Result Encounter Maureen SINGLETON Work Phone: [facility] Start: 08-19-2024 End: 08-19-2024 flow sheet Maureen SINGLETON Work Phone: [facility] Comment on above: Exposure to STD; Second trimester ; 18 weeks gestation of ; Need for maternal serum alpha-protein (MSAFP) screening; Screening, , for anatomic survey; Elevated glucose tolerance test Start: 08-19-2024 End: 08-19-2024 ambulatory MAUREEN FELIZ Not Available Start: 08-19-2024 End: 08-19-2024 Clinisync Result Encounter Kenn Riddhi DO Work Phone: [facility] Start: 08-19-2024 End: 08-20-2024 Clinisync Result Encounter Kenn Riddhi DO Work Phone: [facility] Start: 08-19-2024 End: 08-20-2024 External Result Encounter Maureen Feliz PA Work Phone: [facility]solic[facility] Start: 07-22-2024 End: 07-22-2024 Bamboo flowsheet Kenn Riddhi DO Work Phone: [facility] Start: 07-22-2024 End: 07-22-2024 Bamboo [...] [facility] Start: 06-26-2024 ambulatory [facility] Start: 06-19-2024 End: 06-19-2024 ambulatory KENN RIDDHI Not Available Start: 05-21-2024 ambulatory [facility] Start: 05-20-2024 End: 05-20-2024 Clinisync Result [...] [facility] Start: 04-21-2024 ambulatory [facility] Start: 04-14-2024 ambulatory [facility] Start: 03-07-2024 ambulatory VIRAL [facility] Start: 02-25-2024 ambulatory [facility] Start: 02-19-2024 End: 02-19-2024 Bamboo flowsheet Maureen SINGLETON Work Phone: [facility] Start: 02-19-2024 End: 02-19-2024 Bamboo flowsheet Maureen SINGLETON Work Phone: [facility] Start: 02-19-2024 End: 02-19-2024 Postop follow up visit related to original px Maureen SINGLETON Work Phone: [facility] Comment on above: Postop check Start: 02-19-2024 End: 02-19-2024 ambulatory MAUREEN FELIZ Not Available Start: 02-14-2024 ambulatory [facility] Start: 02-08-2024 End: 02-08-2024 Clinisync Result Encounter Kenn Riddih DO Work Phone: [facility]olic[facility] Start: 02-08-2024 End: 02-08-2024 Clinisync Result Encounter Kenn Riddhi DO Work Phone: [facility] Start: 01-30-2024 End: 01-30-2024 Clinisync Result Encounter Kenn Riddhi DO Work Phone: [facility] Start: 01-30-2024 End: 01-30-2024 Clinisync Result Encounter Kenn Riddhi DO Work Phone: [facility]olic[facility] Start: 01-16-2024 [facility] Start: 01-16-2024 End: 01-16-2024 Office outpatient visit 15 minutes Kenn Riddhi DO Work Phone: [facility] Comment on above: Pre-op examination; Uterine leiomyoma, unspecified location Start: 01-16-2024 End: 01-16-2024 Preprocedural examination done Kenn Riddhi DO Work Phone: [facility] Start: 01-16-2024 End: 01-16-2024 ambulatory KENN [...] External Department Unsolicited Start: 11-20-2023 ambulatory MARIANA [facility] Start: 11-19-2023 End: 11-19-2023 ambulatory TESSY ARAIZA Not Available Start: 12-12-2022 End: 12-15-2022 ambulatory EMEKANEYDA HER[facility]DEZ [facility] Start: 06-19-2022 End: 06-20-2022 ambulatory Isabella Raygoza MANAGER OF GLOBAL-MONITORING ANALYST Facility:[facility] Start: 05-30-2022 End: 05-31-2022 ambulatory Adebayo Latham DO Facility:[facility] Start: 05-16-2022 End: 05-17-2022 ambulatory Isabella Raygoza MANAGER OF GLOBAL-MONITORING ANALYST Facility:[facility] Start: 12-20-2021 End: 12-21-[address] ADEBAYO SOLARES Facility:[facility] Start: 11-15-2021 End: 11-16-[address] ADEBAYO SOLARES Facility:[facility] Procedures Date Procedure Procedure Detail Performing Clinician Start: 10-21-2024 Urnls dip stick/tabl et rgnt non-auto w/o micrscp Maureen SINGLETON Work Phone: Start: 09-16-2024 Urnls dip stick/tabl et rgnt non-auto w/o micrscp Kenn Hannon DO Work Phone: Start: 08-23-2024 GLUCOSE TOLERANCE 3 HOUR Maureen SINGLETON Work Phone: Start: 08-19-2024 RECURRENT VAGINITIS (HTRX) Maureen SINGLETON [...] Screening for malign ant neoplasm of cervix [facility] Start: 12-15-2024 Influenza vaccination Influenza Vacc ine (#1) [facility] Start: 10-21-2024 End: 02-21-2025 US for US OB follow up transabdominal approach Imaging Routine Size of fetus inconsistent with dates in second trimester ([facility]) Expected: 10/21/2024, Expires: 02/21/2025 [facility] Work Phone: Comment on above: Expected: 10/21/2024 , Expires: 02/21/2025 Start: 10-21-2024 End: 10-21-2024 Patient encounter procedure [facility] Comment on above: Arrived Start: 09-16-2024 End: 09-16-2025 Measurement of glucose 3 hours after glucose challenge for glucose tolerance test Glucose tolerance, 3 hours Lab Routine Elevated glucose tolerance test Expected: 09/16/2024 (Approximate), Expires: 09/16/2025 [facility] Work Phone: Comment on above: Expected: 09/16/2024 (Approximate), Expires: 09/16/2025 Start: 09-16-2024 End: 09-16-2024 Patient encounter procedure 09/16/2024 9:30 AM EDT Routine [facility] [address] [place] [id number] Kenn Hannon DO [address] [place] [address] [facility] Start: 09-16-2024 End: 09-16-2024 Professional / ancillary services management 09/16/2024 8:30 AM EDT Ancillary Procedure [facility] [address] [place] [id number] [facility] Start: 08-19-2024 End: 08-19-2024 Patient encounter procedure 08/19/2024 2:20 PM EDT Routine [facility] [address] [place] [phone] Maureen Feliz PA [address] [place] [address] [facility] Start: 08-19-2024 End: 09-19-2024 Alpha fetoprotein, maternal Alpha fetoprotein, maternal Lab Routine Need for maternal serum alpha-protein (MSAFP) screening Expected: 08/19/2024 (Approximate), Expires: 09/19/2024 [facility] Comment on above: Expected: 08/19/2024 (Approximate), Expires: 09/19/2024 Start: 08-19-2024 End: 08-19-2025 Measurement of glucose 3 hours after glucose challenge for glucose tolerance test Glucose tolerance, 3 hours Lab Routine Elevated glucose tolerance test Expected: 08/19/2024 (Approximate), Expires: 08/19/2025 [facility] Comment on above: Expected: 08/19/2024 (Approximate), Expires: 08/19/2025 Start: 08-19-2024 End: 11-19-2024 US for US OB 14+ weeks anatomy scan Imaging Routine Screening, , for anatomic survey Expected: 08/19/2024, Expires: 11/19/2024 [facility] Comment on above: Expected: 08/19/2024 , Expires: 11/19/2024 Start: 07-22-2024 End: 07-22-2025 Measurement of glucose 1 hour after glucose challenge for glucose tolerance test Glucose tolerance, 1 hour Lab Routine Diabetes mellitus screening Expected: 07/22/2024 (Approximate), Expires: 07/22/2025 [facility] Work Phone: Comment on above: Expected: 07/22/2024 (Approximate), Expires: 07/22/2025 Start: 07-22-2024 End: 07-22-2024 Patient encounter procedure [facility] Comment on above: Arrived Start: 06-19-2024 End: 06-19-2024 ambulatory 06/19/2024 2:30 PM EST Initial [facility] [address] [place] [phone] [facility] Start: 06-19-2024 End: 06-19-2024 Professional / ancillary services management 06/19/2024 2:00 PM EST Ancillary Procedure [facility] [address] [place] [phone] [facility] Start: 02-19-2024 End: 02-19-2024 Patient encounter procedure 02/19/2024 1:40 PM EST Office Visit [facility] [address] [place] [phone] Maureen Feliz PA [address] [facility] [address] Arrived [facility] Comment on above: Arrived Start: 01-16-2024 End: 01-16-2024 Patient encounter procedure 01/16/2024 4:00 PM EDT Consult [facility] [address] [place] [address] Kenn Hannon DO [address] [facility] [place] [address] Arrived [facility] Comment on above: Arrived Start: 12-25-2023 End: 2024 Antimullerian hormone (AMH) Antimullerian hormone (AMH) Lab Routine Female infertility PCOS (polycystic ovarian syndrome) Dysfunctional uterine bleeding Expected: 12/25/2023 (Approximate), Expires: 2024 [facility] Comment on above: Expected: 12/25/2023 (Approximate), Expires: 2024 Start: 12-25-2023 End: 2024 DHEA DHEA Lab Routine PCOS (polycystic ovarian syndrome) Expected: 12/25/2023 (Approximate), Expires: 2024 [facility] Comment on above: Expected: 12/25/2023 (Approximate), Expires: 2024 Start: 12-25-2023 End: 12-25-2023 Patient encounter procedure [facility] Comment on above: Arrived Start: 12-16-2023 Influenza vaccination Influenza Vacc ine (#1) [facility] Start: 12-11-2023 End: 12-11-2023 Patient encounter procedure 12/11/2023 8:00 AM EDT Procedure Visit [facility] Tessy Araiza DO [address] [facility] [address] [place] [address] [facility] Start: 05-17-2017 Screening for malign ant neoplasm of cervix [facility] CBC W Auto Different ial panel - Blood CBC and differential Lab Routine PCOS (polycystic ovarian syndrome) Ordered: 12/25/2023 [facility] Comment on above: Ordered: 12/25/2023 CBC W Auto Different ial panel - Blood CBC and differential Lab Routine 22 weeks gestation of Elevated glucose tolerance test Ordered: 09/16/2024 [facility] Comment on above: Ordered: 09/16/2024 CHLAMYDIA TRACHOMATI S (GENITO/STI) CHLAMYDIA TRACHOMATIS (GENITO/STI) Lab Routine Exposure to STD Ordered: 08/19/2024 [facility] Comment on above: Ordered: 08/19/2024 DHEA-sulfate DHEA-sulfate Lab Routine PCOS (polycystic ovarian syndrome) Ordered: 12/25/2023 [facility] Comment on above: Ordered: 12/25/2023 Follicle stimulating hormone Follicle stimulating hormone Lab Routine PCOS (polycystic ovarian syndrome) Ordered: 12/25/2023 [facility] Comment on above: Ordered: 12/25/2023 hCG, quantitative, hCG, quantitative, Lab Routine PCOS (polycystic ovarian syndrome) Ordered: 12/25/2023 [facility] Work Phone: Comment on above: Ordered: 12/25/2023 Hemoglobin A1c/Hemoglobin.total in Blood Hemoglobin A1c Lab Routine Female infertility PCOS (polycystic ovarian syndrome) Dysfunctional uterine bleeding Ordered: 12/25/2023 [facility] Comment on above: Ordered: 12/25/2023 Human papilloma viru s DNA [Presence] in Unspecified specimen by Probe with amplification HPV DNA probe, amplified Microbiology Routine Ordered: 08/19/2024 [facility] Comment on above: Ordered: 08/19/2024 Luteinizing hormone Luteinizing hormone Lab Routine PCOS (polycystic ovarian syndrome) Ordered: 12/25/2023 [facility] Comment on above: Ordered: 12/25/2023 Neisseria gonorrhoea e DNA [Presence] in Unspecified specimen by [place] with probe detection Neisseria gonorrhea DNA probe, direct Lab Routine Exposure to STD Ordered: 08/19/2024 [facility] Comment on above: Ordered: 08/19/2024 SURESWAB(R) ADVANCED VAGINITIS PLUS, TMA SURESWAB(R) ADVANCED VAGINITIS PLUS, TMA Pathology and Cytology Routine Exposure to STD Ordered: 08/19/2024 [facility] Work Phone: Comment on above: Ordered: 08/19/2024 Thyrotropin [Units/volume] in Serum or Plasma TSH Lab Routine PCOS (polycystic ovarian syndrome) Ordered: 12/25/2023 [facility] Comment on above: Ordered: 12/25/2023 Thyroxine (T4) free [Mass/volume] in Serum or Plasma T4, free Lab Routine PCOS (polycystic ovarian syndrome) Ordered: 12/25/2023 [facility] Comment on above: Ordered: 12/25/2023 Immunizations Immunization Date Immunization Notes Care Provider Eunice martinez 01-20-2024 influenza virus vacc ine, unspecified formulation Maureen SINGLETON Work Phone: [facility] 02-12-2023 influenza virus vacc ine, unspecified formulation Tessy Araiza Work Phone: [facility] Payers Date Payer Category Payer Unknown [id number] 2023 [facility] [id number] [id number] 2023 Unknown [id number] 2022 Unknown 2021 Self-pay 2019 Unknown [id number] 1991 Unknown [id number] 2.16.84 [id number] 1991 Unknown [id number] 2.16.84 0.1.127462.3.579.2.593 1991 Unknown [id number] 2.16. [id number] 1991 Unknown [id number] 2.16. [id number] 1991 Unknown [id number] 2.16. [id number] 1991 Unknown [id number] 2.16.8 [id number] 1991 Unknown [id number] 2.16.8 40.1.493934.3.579.2.1259 1991 Unknown [id number] 2.16.84 0.1.541186.3.579.2.1259 1991 Unknown [id number] 2.16.84 0.1.540104.3.579.2.1258 1991 Unknown [id number] 2.16.84 0.1.560973.3.579.2.9 1991 Unknown [id number] 2.16.84 0.1.035182.3.579.2.1258 1991 Unknown [id number] 2.16.84 0.1.062795.3.579.2.1258 1991 Unknown [id number] 2.16.84 0.1.913643.3.579.2.1258 1991 Unknown [id number] 2.16.84 0.1.303993.3.579.2.9 1991 Unknown [id number] 2.16.84 0.1.723683.3.579.2.1258 1991 Unknown [id number] 2.16.84 0.1.820591.3.579.2.9 1991 Unknown [id number] 2.16.84 0.1.767450.3.579.2.9 1959 Unknown [id number] Social History Date Type Detail Facility Start: 11-19-2023 Tobacco smoking stat [facility] Never smoked tobacco [facility] Start: 11-19-2023 Tobacco use and exposure Smoke less tobacco non-user [facility] Start: 12-25-2023 End: 09-16-2024 Alcoholic beverage intake Lifetime non-drinker (finding) [facility] Start: 11-19-2023 History of Social function [facility] Start: 11-19-2023 Tobacco use panel [facility] Start: 1990 Sex assigned at Not on file [facility] Start: 04-26-2024 [facility] Clinical Notes 06-19-2022 to 10-21-2024 ARELI Espinoza - 10/21/2024 8:30 AM Mae Malagon LPN - 09/16/2024 9:30 AM ARELI Delvalle - 08/19/2024 2:20 PM Mae Malagon, TOOL ANALYST - 07/22/2024 9:10 AM ARELI Delvalle - 02/19/2024 1:40 PM EST Note Date & Type Note Facility 10-21-2024 Note [facility] Consult Note Reason for visit: Palpitations 10/21/2024 Patient is here today for a 10 month follow up. Patient states she is 6 month . Patient states she is still having palpitations but doesn't feel its's chastity worse. Patient denies SOB, dizziness. She is currently 6 months I personally reviewed the loop monitor of which the last transmission noted was October 03, 2024. Last recorded episodes were noted in March 25, 2024 which appeared to be a long RP tachycardia Review of Systems Constitutional: Negative. Cardiovascular: Positive for palpitations. Try to bring the event monitor 12/25/23 Patient underwent a loop implant on [...] Date Abnormal ECG Palpitations Sleep apnea PSH: History reviewed. No pertinent surgical history. SH: Social Drivers of Health Tobacco Use: Low Risk (10/21/2024) Patient History Smoking Tobacco Use: Never Smokeless Tobacco Use: Never Passive Exposure: Not on file Alcohol Use: Not on file Financial Resource Strain: Not on file Food Insecurity: Not on file Transportation Needs: Not on file Physical Activity: Not on file Stress: Not on file Social Connections: Not on file Intimate Partner Violence: Unknown (06/07/2023) [place] Safety & Environment Fear of Current or Ex-Partner: Not on file Emotionally Abused: Not on file Physically Abused: Not on file Sexually Abused: Not on file Physically or Sexually Abused: Not on file Depression: Not on file Housing Stability: Not on file Utilities: Not on file Health Literacy: Not on file Allergies: No Known Allergies Weight: 129kg Visit Vitals BP 122/79 (BP Location: Left arm, Patient Position: Sitting) Pulse 97 Ht 1.829 m (6') Wt 129 kg (284 lb) SpO2 98% BMI 38.52 kg/m??? Smoking Status Never BSA 2.56 m??? Meds: Current Outpatient Medications on File Prior to Visit Medication Sig Dispense Refill aspirin 81 mg EC tablet Take 81 mg by mouth in the morning. omeprazole (PriLOSEC) [address] capsule if needed. Vitamin D2 1,250 mcg (50,000 unit) capsule Take 1 capsule by mouth 1 (one) time per week. (Patient not taking: Reported on 10/21/2024) No current facility-administered medications on file prior to visit. ROS: Review of Systems Cardiovascular: Positive for chest pain, irregular heartbeat, near-syncope and palpitations. Respiratory: Positive for shortness of breath. Neurological: Positive for light-headedness. All other systems reviewed and are negative. Physical Exam: Constitutional General Appearance: well-nourished, well-developed, appears stated age Level of Distress: comfortable Psychiatric Mental Status: alert, normal affect Orientation (more content not included)... [facility] 10-21-2024 History of Present illness Narrative Reason for [...] Grandfather James Alcaraz Hypertension Maternal Grandmother Sandy Sytt Diabetes Paternal [...] Negative. Endocrine: Negative. Allergic/Immunologic: Negative. OBJECTIVE Objective: OBGyn Exam Vitals: Estimated body mass index is 38.44 kg/m as calculated from the following: Height as of 01/16/24: 6'. Weight as of this encounter: 283 lb 6.4 oz. BP: 124/78 Patient's last menstrual period was 04/12/2024. ASSESSMENT & PLAN ICD-10-CM 1. Second trimester ([facility]) Z34.92 POCT urinalysis dipstick manually resulted 2. 27 weeks gestation of ([facility]) Z3A.27 POCT urinalysis dipstick manually resulted Return OB: Patient presents today for a routine obstetrics appointment. Patient is currently 27w3d . Patient states she is doing well but has complaints of being tired due to current . Patient has verbalizes frequent movement. labor precautions was discussed/given and patient was instructed to perform kick counts three times a day. Orders Placed This Encounter Procedures US OB follow up transabdominal approach POCT urinalysis dipstick manually resulted Follow Up: Patient is to return to office in 2 week for routine OB appointment. Documented by ARELI Espinoza on behalf of: ARELI Espinoza documented in this encounter [facility] 09-16-2024 History of Present illness Narrative Reason for [...] Systems Constitutional: Negative. HENT: Negative. Eyes: Negative. Breasts: Reddened breasts bilateral in am Respiratory: Negative. Cardiovascular: Negative. Gastrointestinal: Negative. Genitourinary: Negative. Musculoskeletal: Negative. Skin: Negative. Neurological: Negative. All other systems reviewed and are negative. Hematological: Negative. Endocrine: Negative. Allergic/Immunologic: Negative. OBJECTIVE Objective: Physical Exam Constitutional: Appearance: Normal appearance. She is well-developed. Genitourinary: Breasts: Breasts are soft. Right: Normal. Left: Normal. Cardiovascular: Rate and Rhythm: Normal rate and [...] nursing note reviewed. Exam conducted with a cloth folder machine present. Vitals: Estimated body mass index is 37.57 kg/m as calculated from the following: Height as of 01/16/24: 6'. Weight as of this encounter: 277 lb. BP: 126/76 Patient's last menstrual period was 04/12/2024. ASSESSMENT & PLAN ICD-10-CM 1. Second trimester Z34.92 POCT urinalysis dipstick manually resulted 2. 22 weeks gestation of Z3A.22 Patient presents today for a routine obstetrics appointment. Patient is currently 22w3d with a Estimated Date of Delivery: 01/17/25. Pt has complaints of pitting edema on breasts in morning. Breast exam performed, no masses or lumps noted. Pt to return in 4 weeks for scheduled ob appt. Pt had anatomy scan prior to appt. Will notify pt of results. Documented by Katarzyna Malagon LPN on behalf of: Kenn Hannon DO documented in this encounter [facility] 08-19-2024 History of Present illness Narrative Reason [...] Father Adebayo Marco Diabetes Maternal Grandfather James [place] Hypertension Maternal Grandmother Sandy [place] Diabetes Paternal Grandfather Rito Marco Kidney disease [...] of: ARELI Espinoza documented in this encounter [facility] 07-22-2024 History of Present illness Narrative Reason [...] nursing note reviewed. Exam conducted with a cloth folder machine present. Vitals: Estimated body mass index is [...] or undercooked meat, and stay away from [facility]. Patient has been consulted regarding any further [...] Kenn Hannon DO documented in this encounter [facility] 02-19-2024 History of Present illness Narrative Reason [...] Father Adebayo Marco Diabetes Maternal Grandfather James [place] Hypertension Maternal Grandmother Sandy Lissa Diabetes Paternal [...] having a D&C Hysteroscopy performed at [facility] with Dr. Hannon. Pathology results was reviewed with the patient in great detail and all restrictions have been lifted. Follow Up: Patient is to return to the office for annual exam unless needed otherwise. Documented by ARELI Espinoza on behalf of: ARELI Espinoza documented in this encounter [facility] 01-16-2024 History of Present illness Narrative Reason for Appointment: Patient ID: Andressa Prasad is a 33 y.o. female who presents for Pre-op Visit Patient presents today for Pre Op appointment. Patient is scheduled to undergo D&C Hysteroscopy, possible Myosure on 02/08/[address] Hannon at [facility]. MEDICATIONS Current Outpatient Medications Medication [...] reviewed, and patient is to proceed to [facility] OR. Follow Up: Patient is to follow up between 1-2 weeks post operative to assess proper healing and recovery from procedure. Documented by Katarzyna Malagon LPN on behalf of: Kenn Hannon DO documented in this encounter [facility] 12-25-2023 History of Present illness Narrative Reason [...] nursing note reviewed. Exam conducted with a cloth folder machine present. Vitals: Estimated body mass index is [...] Kenn Hannon DO documented in this encounter [facility] 12-25-2023 Note Try to bring the berhane [...] on file Intimate Partner Violence: Unknown (06/07/2023) [place] Safety & Environment Fear of Current or [...] not heard Diastolic (more content not included)... [facility] 06-19-2022 Note This is a Telephone Appointment [...] dreaming in association with her activity. 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 Nutrition/Health Caffeine [...] signed by Isabella Grant 06/19/22 15:39 EST [facility] Evaluation note Diagnosis Pre-op examination Uterine [...] tolerance test [facility] Diagnosis Second trimester state, incidental 22 weeks gestation of Elevated glucose tolerance test Impaired glucose tolerance test [facility] Diagnosis Size of fetus inconsistent with dates in second trimester (HHS-HCC)- Primary Second trimester (HHS-HCC) state, incidental 27 weeks gestation of (HHS-HCC) documented in this encounter [facility] Summary [...] section and content) DATE CREATED AUTHOR 07/04/2021 [facility] DATE CREATED AUTHOR AUTHOR'S ORGANIZ ATION 2021 [facility] DATE CREATED AUTHOR AUTHOR'S ORGANIZ ATION 06/21/2022 [facility] DATE CREATED AUTHOR AUTHOR'S ORGANIZ ATION 12/15/2022 [facility] DATE CREATED AUTHOR AUTHOR'S ORGANIZ ATION 10/25/2024 [facility] DATE CREATED AUTHOR AUTHOR'S ORGANIZ ATION 10/25/2024 [facility] Care Teams (unrecognized sec tion and content) Program Director/Music Director Relationship Specialty Start Date End Date Adebayo Solares MD [address] [place] [address] PCP - General Family Medicine 11/19/23 Program Director/Music Director Relationship Specialty Start Date End Date Adebayo Solares MD [address] [place] [phone] (Work) PCP - General Family Medicine 11/19/23 Program Director/Music Director Relationship Specialty Start Date End Date Adebayo Solares MD [address] [place] [phone] (Work) PCP - General Family Medicine 11/19/23 Program Director/Music Director Relationship Specialty Start Date End Date Adebayo Solares MD [address] [place] [phone] (Work) PCP - General Family Medicine 11/19/23 Program Director/Music Director Relationship Specialty Start Date End Date Adebayo Solares MD [address] [place] [phone] (Work) PCP - General Family Medicine 11/19/23 Program Director/Music Director Relationship Specialty Start Date End Date Adebayo Solares MD [address] [place] [phone] (Work) PCP - General Family Medicine 11/19/23 Program Director/Music Director Relationship Specialty Start Date End Date Adebayo Solares MD [address] [place] [address] PCP - General Family Medicine 11/19/23 Program Director/Music Director Relationship Specialty Start Date End Date Adebayo Solares MD [address] [place] [phone] (Work) PCP - General Family Medicine 11/19/23 Program Director/Music Director Relationship Specialty Start Date End Date Adebayo Solares MD [address] [place] [address] PCP - General Family Medicine 11/19/23 Program Director/Music Director Relationship Specialty Start Date End Date Adebayo Solares MD [address] [place], [place] [phone] PCP - General Family Medicine 11/19/23 Program Director/Music Director Relationship Specialty Start Date End Date Adebayo Solares MD [address] [place] [address] PCP - General Family Medicine 11/19/23 Reason [...] BE BASED ON THE PRIMARY CLINICAL RECORDS. [facility] [place] [facility]. provides no warranty or guarantee of the accuracy or completeness of information in this document.
== END 2024-10-30 19:09 | disposition home or self-care (01) ==
LOC: US 19:08
PROVIDERS: PCP Family Medicine; Visit Provider Physician Assistant
DX: O26.843 Uterine size-date discrepancy, third trimester (principal); Z3A.29 29 weeks gestation of pregnancy
CPT/HCPCS: 76816

== ENCOUNTER 2024-11-10 08:31 | Outpatient (OUT) | payer BC, SELFPAY ==
[2024-11-10 10:27] LABS: Glucose 1 Hour 208 mg/dL (<180)
[2024-11-10 11:58] LABS: Glucose 2 Hour 152 mg/dL (<155)
[2024-11-10 12:27] LABS: Glucose 3 Hour 81 mg/dL (<140)
== END 2024-11-10 08:32 | disposition home or self-care (01) ==
LOC: LAB 08:32
PROVIDERS: PCP Family Medicine; Visit Provider Obstetrics & Gynecology
DX: R73.09 Other abnormal glucose (principal)
CPT/HCPCS: 36415; 82951; 82952

== ENCOUNTER 2024-11-13 18:49 | Outpatient (OUT) | payer BC, SELFPAY ==
--- NOTE | 2024-11-13 18:50 | US_ITS ---
The [address] [address] Patient Name: JAVID TRIPLETT MRN: [id number] date: 1990 Sex: F Assigned Patient Location: Current Patient Location: Accession/Order Number: [id number] Exam Date: 11/14/2024 09:56 Report Date: 11/14/2024 10:06 At the request of: KENN MCHUGH DO Procedure: US OB incomplete anatomy OB ultrasound. Result for exam: Follow-up anatomic survey. COMPARISON: Scrotal ultrasound 10/30/2024. Please note that no anatomy survey is seen within PACS for direct comparison. TECHNIQUE: Transabdominal imaging of the gravid uterus was obtained. FINDINGS: Single live intrauterine is seen with a heart rate 154 bpm. A three-vessel cord is noted. Cord insertion appears normal. The RVOT/LVOT and lips are still suboptimally evaluated due to position and patient body habitus. US/US OB incomplete anatomy IMPRESSION: Three-vessel cord is noted. Please note that the LVOT/RVOT and lips are still suboptimally evaluated due to addition and patient body habitus. Impression dictated by: Mark Anthony Conner Jr., D.O. 11/14/2024 10:06 AM Dictation Location: [place] [address] Electronically authenticated by: [id number] Y Date: 11/14/2024 10:06
--- OUTSIDE RECORDS SUMMARY | 2024-11-13 19:05 | XMS_ITS | CCD ---
Author Organization [facility] CliniSysc Care Team Providers Care Bar Finish Operator Name Role Phone BECK, DR ADEBAYO Oropeza Primary Care Unavailable QUINONES, DR ADEBAYO Oropeza Consulting Unavailable QUINONES, DR ADEBAYO Oropeza Attending Unavailable QUINONES, DR ADEBAYO Oropeza Admitting Unavailable Zieber, DR Ge Consulting Unavailable GLATZLOUIS Consulting Unavailable QUINONES, DR ADEBAYO Oropeza Primary Care Unavailable QUINONES, DR ADEBAYO Oropeza Consulting Unavailable QUINONES, DR ADEBAYO Oropeza Attending Unavailable QUINONES, DR ADEBAYO Oropeza Admitting Unavailable Sak DO, Adebayo Rodas Attending Unavailable QuinonesAdebayo Primary Care Unavailable Jaret TRIMMING CUTTER MACHINE-PEANUT CLEANERIsabella Attending Unavaila ble Quinones, Adebayo Primary Care Unavailable Jaret TRIMMING CUTTER MACHINE-PEANUT CLEANER, Isbaella Sepulveda Attending Unavaila ble Quinones, Adebayo Primary Care Unavailable QuinonesAdebayo Consulting Unavailable QuinonesAdebayo Referring Unavailable EMEKA HERNANDEZ Referring Unavailable Quinones Adebayo GOYAL Primary Care Provider MARIANA NEWMAN Referring Unavailable TRENT, MARIANA Referring Unavailable TRENT, MARIANA Attending Unavailable TRENT, MARIANA Attending Unavailable TRENT, MARIANA Referring Unavailable CHALINO, VIRAL Referring Unavailable TRENT, MARIANA Referring Unavailable TRENT, MARIANA Referring Unavailable CHALINO, VIRAL Referring Unavailable TRENT, MARIANA Referring Unavailable TRENT, MARIANA Referring Unavailable TRENT, MARIANA Referring Unavailable RIDDHI, KENN Attending Unavailable MAUREEN FELIZ Attending Unavailable RIDDHI, KENN Attending Unavailable TESSY ARAIZA Attending Unavailable RIDDHI, KENN Attending Unavailable RIDDHI, KENN Attending Unavailable TRAY, MAUREEN Attending Unavailable TRAY, MAUREEN Attending Unavailable RIDDHI, KENN Attending Unavailable Unavailable Primary Care Provider Unavailabl e Allergies Allergy Classification Reported Allergen(s) Allergy Type Date of Onset Reaction(s) Facility (1 source) No Known Medication Allergies; Translations: [No Known Medication Allergies] Propensity to adverse reactions to drug (disorder) [facility] Repository Medications Current Medications Medication Drug Class(es) Dates Sig (Normalized) Sig (Original) aspirin 81 mg delayed release oral tablet (3 sources) Platelet Aggregation Inhibitor, Nonsteroidal Anti-inflammatory Drug take 1 tablet by mouth in the morning aspirin 81 MG EC tablet Take 81 mg by mouth in the morning. Active metFORMIN hydrochloride 500 mg oral tablet (11 [...] 12-25-2023 Chronic Other and delivery including normal (10 sources) Second trimester ; Translations: [Encounter for [...] [27 weeks gestation of ] 10-21-2024 Episodic Residual codes; unclassified (2 sources) Gestation period, 29 weeks; Translations: [29 weeks gestation of ] 11-03-2024 Episodic Syncope (1 source) Syncope and collapse; Translations: [Syncope and collapse] Onset: 12-12-2022 Episodic Past or Other Problems Problem Classification Problem Date Documented Da te Episodic/Chronic Cardiac dysrhythmias (7 sources) Palpitations; Translations: [PALPITATIONS] Onset: 11-15-2021 Episodic Results Test Name Value Interpretation Reference Range Facility GLUCOSE TOLERANCE 3 HOURon 0 11-10-2024 GLUCOSE TOLERANCE 3 HOUR High mg/dL [facility] Comment on above: GLU FAST 113H (<95) Col: 11/10/24 0845 GLU 1HR 208H (<180) Col: 11/10/24 0945 GLU 2HR 152 (<155) Col: 11/10/24 1052 GLU 3HR 81 (<140) Col: 11/10/24 1147 Interpretation and review of laboratory results Abnormal [facility] Urinalysis macro (dipstick) panel (U)on 11-03-2024 Bilirubin, UA Negative Negative - 4(70) +++ mg/dL [facility] Blood, UA Negative Negative - 50 Osmin/mcL [facility] Clarity, UA Clear [facility] re Color, UA Yellow [facility] Glucose, UA Positive Negative - 1999(110) ++++ mg/dL [facility] Interpretation and review of laboratory results Abnormal [facility] Ketones, UA Negative Negative - 160(16) ++++ mg/dL [facility] Leukocytes, UA Negative Negative - 500+++ Oumou/mcL [facility] Nitrite, UA Negative Negative - Positive [facility] pH, UA 7 5 - 9 [facility] e Protein, UA Trace Negative - 1999(20) ++++ mg/dL [facility] Spec Grav, UA 1.02 1 - 1.03 [facility] care Urobilinogen, UA 1.0 0.2 - 12 mg/dL [facility] US OB GROWTHon 10-31-[address] [address] Ultrasound Report Signed Patient: JAVID PRASAD MR#: [id number] : 1990 Acct:[id number] Age/Sex: 33 / F ADM Date: 10/30/24 Loc: US Attending Dr: Maureen Feliz Ordering Physician: Maureen Feliz Date of Service: 10/30/24 Procedure(s): US OB growth Accession Number(s): [id number] cc: Maureen Feliz; ADEBAYO QUINONES D.O. [place] [address] Patient Name: JAVID PRASAD MRN: [facility]:[id number] date: 1990 Sex: F Assigned Patient Location: Current Patient Location: Accession/Order Number: [id number] Exam Date: 10/31/2024 07:37 Report Date: 10/31/2024 07:41 At the request of: MAUREEN FELIZ Procedure: US OB growth ULTRASOUND OB GROWTH CLINICAL DATA: size and consistent with dates COMPARISON: None There is a single live intrauterine gestation in cephalic presentation. There is cardiac and somatic activity with heart rate of 142 bpm. The amniotic fluid volume measures 19.1 cm which is in normal range. The following measurements were obtained: Biparietal diameter 7.5 cm 30 weeks 0 days 88% Head circumference 27.3 cm 29 weeks 6 days 66% Abdominal circumference 24.7 cm 29 weeks 0 days 64% Femur length 5.5 cm 29 weeks 0 days 56% The composite ultrasound age based these measurements is 29 weeks 3 days +/- 2 weeks 0 days. Reported gestational age based on prior information is 28 weeks 2 days. This is still within standard deviation of expected interval growth since the prior. The estimated weight is 2 lbs. 15 oz. +/- 7 ounces (70%). US/US OB growth IMPRESSION: SINGLE LIVE INTRAUTERINE GESTATION WITH ESTIMATED ULTRASOUND AGE OF 29 WEEKS 3 DAYS. Impression dictated by: Katarzyna Crow M.D. 10/31/2024 7:41 AM Dictation Location: [place] [address] Electronically authenticated by: [id number] Y Date: 10/31/2024 07:41 Dictated By: Katarzyna Crow M.D. Signed By: 10/31/24 0744 DD/ 0741 TD/TT: Resawyer: [facility] Radiology, Radiologist, - 10/31/[address] [address] Ultrasound Report Signed Patient: JAVID PRASAD MR#: [id number] : 1990 Acct:[id number] Age/Sex: 33 / F ADM Date: 10/30/24 Loc: US Attending Dr: Maureen Feliz Ordering Physician: Maureen Feliz Date of Service: 10/30/24 Procedure(s): US OB growth Accession Number(s): [id number] cc: Maureen Feliz; ADEBAYO QUINONES D.O. The [address] [address] Patient Name: JAVID PRASAD MRN: [facility]:[id number] date: 1990 Sex: F Assigned Patient Location: US Current Patient Location: Accession/Order Number: [id number] Exam Date: 10/31/2024 07:37 Report Date: 10/31/2024 07:41 At the request of: MAUREEN FELIZ Procedure: US OB growth ULTRASOUND OB GROWTH CLINICAL DATA: size and consistent with dates COMPARISON: None There is a single live intrauterine gestation in cephalic presentation. There is cardiac and somatic activity with heart rate of 142 bpm. The amniotic fluid volume measures 19.1 cm which is in normal range. The following measurements were obtained: Biparietal diameter 7.5 cm 30 weeks 0 days 88% Head circumference 27.3 cm 29 weeks 6 days 66% Abdominal circumference 24.7 cm 29 weeks 0 days 64% Femur length 5.5 cm 29 weeks 0 days 56% The composite ultrasound age based these measurements is 29 weeks 3 days +/- 2 weeks 0 days. Reported gestational age based on prior information is 28 weeks 2 days. This is still within standard deviation of expected interval growth since the prior. The estimated weight is 2 lbs. 15 oz. +/- 7 ounces (70%). US/US OB growth IMPRESSION: SINGLE LIVE INTRAUTERINE GESTATION WITH ESTIMATED ULTRASOUND AGE OF 29 WEEKS 3 DAYS. Impression dictated by: Katarzyna Crow M.D. 10/31/2024 7:41 AM Dictation Location: [place] [address] Electronically authenticated by: [id number] Y Date: 10/31/2024 07:41 Dictated By: Katarzyna Crow M.D. Signed By: 10/31/24 0744 DD/ 0741 TD/TT: Resawyer: [facility] Radiology Study observation (narrative) [facility] US OB GROWTHOrdered By: Layne collinsogfortunato Radiology on 10-31-2024 [facility] Healthcar e Work Phone: Office Visiton 10-21-2024 Follow-up visit [id number] Javid Prasad 1990 F Date Provider Department Center 10/21/2024 Maria G-MARIANA NEWMAN [facility] Family History Problem Relation Age of Onset Atrial fibrillation Mother Diabetes Father Kidney disease Father Heart attack Maternal Grandmother Family Status - Relation Status Age at Mother Alive Father Alive Maternal Grandmother Level of Service:53381 [place] OFFICE/OUTPATIENT ESTABLISHED LOW MDM 20 MIN Normal [facility] Urinalysis macro (dipstick) panel (U)on 10-21-2024 Bilirubin, UA Negative Negative - 4(70) +++ mg/dL [facility] Blood, UA Negative Negative - 50 Osmin/mcL [facility] Clarity, UA Clear [facility] re Color, UA Yellow [facility] Glucose, UA Negative Negative - 2000(110) ++++ mg/dL [facility] Interpretation and review of laboratory results Abnormal [facility] Ketones, UA Positive Negative - 160(16) ++++ mg/dL [facility] Leukocytes, UA Negative Negative - 500+++ Oumou/mcL [facility] Nitrite, UA Negative Negative - Positive [facility] pH, UA 5.5 5 - 9 [facility] Protein, UA Negative Negative - 2000(20) ++++ mg/dL [facility] Spec Grav, UA 1.02 1 - 1.03 [facility] Urobilinogen, UA 1.0 0.2 - 12 mg/dL [facility] US OB 14+ WEEKS ANATOMY [...] II, MD, PHD at 18-Sep-2024 08:49:14 AM [facility] Normal Not Available Comment on above: Order Comment: US OB ANATOMY SINGLE W US OB CERVICAL LENGTH Estimated Date of Delivery: 01/17/25 Gestational Age as of 08/19/2024: 18w3d Urinalysis macro (dipstick) panel (U)on 06-03-2025 Bilirubin, UA Negative Negative - 4(70) +++ mg/dL [facility] Blood, UA Negative Negative - 50 Osmin/mcL [facility] Clarity, UA Clear [facility] re Color, UA Yellow [facility] e Glucose, UA Negative Negative - 1999(110) ++++ mg/dL [facility] Interpretation and review of laboratory results Normal [facility] Ketones, UA Negative Negative - 160(16) ++++ mg/dL [facility] Leukocytes, UA Negative Negative - 500+++ Oumou/mcL [facility] Nitrite, UA Negative Negative - Positive [facility] pH, UA 6 5 - 9 [facility] e Protein, UA Negative Negative - 1999(20) ++++ mg/dL [facility] Spec Grav, UA 1.025 1 - 1.03 [facility] Urobilinogen, UA 0.2 0.2 - 12 mg/dL [facility] GLUCOSE TOLERANCE 3 HOURon 0 08-23-2024 GLUCOSE TOLERANCE 3 HOUR High mg/dL [facility] Comment on above: GLU FAST 110H (<95) Col: 08/23/24 0738 GLU 1HR 173 (<180) Col: 08/23/24 0839 GLU 2HR 131 (<155) Col: 08/23/24 0939 GLU 3HR 67 (<140) Col: 08/23/24 1040 Interpretation and review of laboratory results Abnormal [facility] e RECURRENT VAGINITIS (HTRX)on 08-20-2024 ATOPOBIUM VAGINAE 0 [facility] ATOPOBIUM VAGINAE Not detected [facility] BVAB 2,3 (BACTERIAL VAGINOSIS ASSOCIATED BACTERIA 2, 3); MOBILUNCUS SPP 0 [facility] BVAB 2,3 (BACTERIAL VAGINOSIS ASSOCIATED BACTERIA 2, 3); MOBILUNCUS SPP Not detected [facility] AGUSTIN ALBICANS, PARAPSILOSIS, TROPICALIS 0 [facility] AGUSTIN ALBICANS, PARAPSILOSIS, TROPICALIS Not detected [facility] AGUSTIN GLABRATA 0 [facility] AGUSTIN GLABRATA Not detected [facility] AGUSTIN KRUSEI 0 [facility] AGUSTIN KRUSEI Not detected [facility] CHLAMYDIA TRACHOMATIS 0 [facility] CHLAMYDIA TRACHOMATIS Not detected N [facility] GARDNERELLA VAGINALIS 0 [facility] GARDNERELLA VAGINALIS Not detected [facility] MEGASPHAERA (TYPES 1, 2) 0 [facility] MEGASPHAERA (TYPES 1, 2) Not detected [facility] MYCOPLASMA GENITALIUM 0 [facility] MYCOPLASMA GENITALIUM Not detected N [facility] NEISSERIA GONORRHOEAE 0 [facility] NEISSERIA GONORRHOEAE Not detected N [facility] TRICHOMONAS VAGINALIS 0 [facility] TRICHOMONAS VAGINALIS Not detected [facility] GLUCOSE 1 HOURon 08-19-2024 Glucose [Mass/Vol] 182 mg/dL High NINF - 13 0 mg/dL [facility] Interpretation and review of laboratory results Abnormal [facility] Urinalysis macro (dipstick) panel (U)on 08-19-2024 Bilirubin, UA Positive Negative - 4(70) +++ mg/dL [facility] Comment on above: small Blood, UA Negative Negative - 50 Osmin/mcL [facility] Clarity, UA Clear [facility] re Color, UA Yellow [facility] Glucose, UA Negative Negative - 1999(110) ++++ mg/dL [facility] Interpretation and review of laboratory results Abnormal [facility] Ketones, UA Positive Negative - 160(16) ++++ mg/dL [facility] Comment on above: 15 Leukocytes, UA Negative Negative - 500+++ Oumou/mcL [facility] Nitrite, UA Negative Negative - Positive [facility] pH, UA 6 5 - 9 [facility] Protein, UA Positive Negative - 1999(20) ++++ mg/dL [facility] Comment on above: 30 Spec Grav, UA 1.025 1 - 1.03 [facility] Urobilinogen, UA 0.2 0.2 - 12 mg/dL [facility] Urinalysis macro (dipstick) panel (U)on 07-22-2024 Bilirubin, UA Negative Negative - 4(70) +++ mg/dL [facility] Blood, UA Negative Negative - 50 Osmin/mcL [facility] Clarity, UA Clear [facility] re Color, UA Yellow [facility] Glucose, UA Negative Negative - 1999(110) ++++ mg/dL [facility] Interpretation and review of laboratory results Abnormal [facility] Ketones, UA Positive Negative - 160(16) ++++ mg/dL [facility] Comment on above: trace Leukocytes, UA Negative Negative - 500+++ Oumou/mcL [facility] Nitrite, UA Negative Negative - Positive [facility] pH, UA 6.5 5 - 9 [facility] Protein, UA Trace Negative - 1999(20) ++++ mg/dL [facility] Spec Grav, UA 1.025 1 - 1.03 [facility] Urobilinogen, UA 0.2 0.2 - 12 mg/dL [facility] CBC and differentialon 07-15 Hematocrit (Bld) [Volume fraction] 42 % 36 - 46 % [facility] Hemoglobin (Bld) [Mass/Vol] 13.6 g/dL 12.0 - 16.0 g/dL [facility] Platelets (Bld) [#/Vol] 392 10*3/uL 150 - 399 10*3/uL [facility] WBC (Bld) [#/Vol] 9.2 10*3/mL 3.3 - 10.0 10*3/mL [facility] CBC without diffon Rbc Mcv (Fl) By Automated Count 85.4 [facility] Drug Screen, Urineon 025 Amphetamine/Methamphe tamine Negative [facility] Barbiturates Negative [facility] Benzodiazepines Negative [facility] Cocaine Metabolite Negative [facility] Methadone Negative [facility] Opiates Negative [facility] Oxycodone Negative [facility] Phencyclidine Negative [facility] Thc Marijuana, Urine Negative [facility] Glucose 1h post 50g loadon 0 07-15-2024 Glucose, 1Hr PP 182 [facility] HBV surface Ag IA Qlon 07-15 Hepatitis B Surface Antigen Negative [facility] HIV 1+2 Ab+HIV1 p24 Ag IA Ql on 07-15-2024 HIV 1&2 AB/AG Non-Reactive [facility] Laboratory - Chemistry and C hemistry - challengeon 07-15-2024 Glucose [Mass/Vol] 111 mg/dL [facility] Laboratory - Hematology and Cell countson 07-15-2024 HbA1c (Bld) [Mass fraction] 5.5 % 4.0 - 6.0 % [facility] Comment on above: ADA RECOMMENDED LIMI T 4.0 - 6.0 ADA THERAPEUTIC TARGET < 7.0 ACTION SUGGESTED > 7.0 MLR HEMOGLOBIN A1Con 025 [facility] No Panel Informationon 07-15 [facility] Rubella IGG immune statuson 07-15-2024 Rubella immune IgG 1.77 [facility] T. pallidum IgG+IgM IA Ql (S )on 07-15-2024 Syphilis Non-Reactive [facility] Type and screenon 07-15-2024 Abo/Rh(D) Positive [facility] US OB TRANSVAGINALon US OB TRANSVAGINAL EXAM: US OB TRANSVAGINAL [...] Doppler evaluation of the bilateral ovaries. Electronically Signed:Reneall y signed by THOMAS OLIVARES II, MD, PHD at 20-Jun-2024 08:24:08 AM [facility] Normal Not Available Comment on above: Order Comment: US OB TRANSVAGINAL No LMP recorded. TBH PREG QUANT HCGon 02-04-2 025 HCG QUANTITATIVE 2792 mIU/mL [facility] Comment on above: 5-50 0.2-1 WEEK 50-500 1-2 WEEKS 100-5,000 2-3 WEEKS 500-10,000 3-4 WEEKS 1,000-50,000 4-5 WEEKS 10,000-100,000 5-6 WEEKS 15,000-200,000 6-8 WEEKS 10,000-100,000 2-3 MONTHS [facility] TBH PREG QUANT HCGon 025 HCG QUANTITATIVE 713 mIU/mL [facility] Comment on above: 5-50 0.2-1 WEEK 50-500 1-2 WEEKS 100-5,000 2-3 WEEKS 500-10,000 3-4 WEEKS 1,000-50,000 4-5 WEEKS 10,000-100,000 5-6 WEEKS 15,000-200,000 6-8 WEEKS 10,000-100,000 2-3 [facility] ALL CBC WITH AUTO DIFFon BASOPHILS ABSOLUTE AUTO 0.1 [facility] Basophils/100 WBC (Bld) 0.8 % 0.2 - 2.0 % [facility] Eosinophils/100 WBC (Bld) 3.5 % 0.9 - 7.0 % [facility] Erythrocyte distribution width (RBC) [Ratio] 13.2 % 11.0 - 15.0 % [facility] Hematocrit (Bld) [Volume fraction] 41.9 % 36.0 - 48.0 % [facility] Hemoglobin (Bld) [Mass/Vol] 13.8 g/dL 12.0 - 16.0 g/dL [facility] IMMATURE GRANULOCYTES ABS AUTO 0.02 [facility] Immature granulocytes/100 WBC (Bld) 0.3 % 0.0 - 0.5 % [facility] LYMPHOCYTES ABSOLUTE AUTO 2.5 [facility] Lymphocytes/100 WBC (Bld) 31.1 % 20.5 - 60.0 % [facility] MCH (RBC) [Entitic mass] 27.7 pg 26.7 - 34.0 pg [facility] MCHC (RBC) [Mass/Vol] 32.9 g/dL 29.9 - 35.2 g/dL [facility] MCV (RBC) [Entitic vol] 84 fL 81.0 - 99.0 fL [facility] MONOCYTES ABSOLUTE AUTO 0.5 [facility] Monocytes/100 WBC (Bld) 6.6 % 1.7 - 12.0 % [facility] NEUTROPHILS ABSOLUTE AUTO 4.6 [facility] Neutrophils/100 WBC (Bld) 57.7 % 43.0 - 75.0 % [facility] Platelet mean volume (Bld) [Entitic vol] 9.6 fL 9.5 - 13.5 fL [facility] EO # 0.3 [facility] PLT 429 [facility] TB RBC 4.99 [facility] WBC 8 [facility] ALL CBC WITH AUTO DIFFon BASOPHILS ABSOLUTE AUTO 0.1 [facility] Basophils/100 WBC (Bld) 0.7 % 0.2 - 2.0 % [facility] Eosinophils/100 WBC (Bld) 3.7 % 0.9 - 7.0 % [facility] Erythrocyte distribution width (RBC) [Ratio] 13.2 % 11.0 - 15.0 % [facility] Hematocrit (Bld) [Volume fraction] 42.2 % 36.0 - 48.0 % [facility] Hemoglobin (Bld) [Mass/Vol] 14 g/dL 12.0 - 16.0 g/dL [facility] IMMATURE GRANULOCYTES ABS AUTO 0.01 [facility] Immature granulocytes/100 WBC (Bld) 0.1 % 0.0 - 0.5 % [facility] LYMPHOCYTES ABSOLUTE AUTO 2.6 [facility] Lymphocytes/100 WBC (Bld) 37.7 % 20.5 - 60.0 % [facility] MCH (RBC) [Entitic mass] 28.1 pg 26.7 [...] Health[facility] Office Visiton 12-25-2023 Follow-up visit [id number] Javid Prasad 1990 F Date Provider Department Center 12/25/2023 MARIANA WALTER CARD [facility] Family History Problem Relation Age of Onset Atrial fibrillation Mother Diabetes Father Kidney disease Father Heart attack Maternal Grandmother Family Status - Relation Status Age at Mother Father Maternal Grandmother Level of Service:91505 [place] OFFICE/OUTPATIENT ESTABLISHED LOW MDM 20 MIN Normal [facility] Cytology Cervical or vaginal smear or scraping [...] She can be sleepy during the day. [place] Sleepiness Scale score: 12. She is sleepy [...] included)... Normal [facility] CT HEAD WO CONon 12-21-2021 CT HEAD [...] by: CARLOS GALE Date: 2021-12-21 07:15 Normal [facility] CT TEMPORAL BONES WO CONon 0 12-21-2021 [...] foramen are normal. Visualized paranasal sinuses clear. Wig Comber spaces normal. Orbital contents unremarkable. Posterior fossa structures normal. IMPRESSION: Normal CT of the temporal bones. Electronically authenticated by: LOUIS BRAY Date: 2021-12-21 16:11 Normal [facility] Comprehensive Metabolic Empo n 05-10-2021 Albumin [Mass/Vol] 4.1 g/dL Normal 3.2-5.5 [facility] Comment on above: Performed By: #### E BS LIPID, EBS A1C, EBS CMP #### [facility] [address] [place] [id number] [place] Albumin/Globulin [Mass ratio] 1.3 {ratio} Normal [facility] Comment on above: Performed By: #### E BS LIPID, EBS A1C, EBS CMP #### [facility] [address] [place] [id number] [place] ALP [Catalytic activity/Vol] 77 U/L Normal 32-92 [facility] Comment on above: Performed By: #### E BS LIPID, EBS A1C, EBS CMP #### [facility] [address] [place] [id number] [place] ALT [Catalytic activity/Vol] 19 U/L Normal 10-60 [facility] Comment on above: Performed By: #### E BS LIPID, EBS A1C, EBS CMP #### [facility] [address] [place] [id number] [place] AST [Catalytic activity/Vol] 18 U/L Normal 10-42 [facility] Comment on above: Performed By: #### E BS LIPID, EBS A1C, EBS CMP #### [facility] [address] [place] [address] [place] Bilirubin [Mass/Vol] 0.3 mg/dL Normal 0.3-1.2 [facility] Comment on above: Performed By: #### E BS LIPID, EBS A1C, EBS CMP #### [facility] [address] [place] [address] [place] Calcium [Mass/Vol] 9.2 mg/dL Normal 8.2-10.2 [facility] Comment on above: Performed By: #### E BS LIPID, EBS A1C, EBS CMP #### [facility] [address] [place] [address] [place] Chloride [Moles/Vol] 104 mmol/L Normal 95-114 [facility] Comment on above: Performed By: #### E BS LIPID, EBS A1C, EBS CMP #### [facility] [address] [place] [id number] [place] CO2 [Moles/Vol] 24.1 mmol/L Normal 22.0-30.0 [facility] Comment on above: Performed By: #### E BS LIPID, EBS A1C, EBS CMP #### [facility] [address] [place] [id number] [place] Creatinine [Mass/Vol] 0.69 mg/dL Normal 0.44-1.03 [facility] Comment on above: Performed By: #### E BS LIPID, EBS A1C, EBS CMP #### [facility] [address] [place] [id number] [place] Estimated GFR ( Liz > 60 Normal [facility] Comment on above: Result Comment: GFR estimated reference range: According to KDOQI guidelines, <60 ml/min/1.73m2 is sufficient to diagnose a patient with chronic kidney disease. Performed By: #### E BS LIPID, EBS A1C, EBS CMP #### [facility] [address] Estimated GFR (Non- Am > 60 Normal [facility] Comment on above: Performed By: #### E BS LIPID, EBS A1C, EBS CMP #### [facility] [address] [place] [address] Globulin (S) [Mass/Vol] 3.1 g/dL Normal [facility] Comment on above: Performed By: #### E BS LIPID, EBS A1C, EBS CMP #### [address] Glucose [Mass/Vol] 106 mg/dL High 70-100 [facility] Comment on above: Result Comment: ADA recommended reference range Performed By: #### E BS LIPID, EBS A1C, EBS CMP #### [address] Potassium [Moles/Vol] 4.0 mmol/L Normal 3.5-5.1 [facility] Comment on above: Performed By: #### E BS LIPID, EBS A1C, EBS CMP #### [address] Protein [Mass/Vol] 7.2 g/dL Normal 6.1-7.9 [facility] Comment on above: Performed By: #### E BS LIPID, EBS A1C, EBS CMP #### [place] [address] [place] Sodium [Moles/Vol] 137 mmol/L Normal 136-146 [facility] Comment on above: Performed By: #### E BS LIPID, EBS A1C, EBS CMP #### [address] Urea nitrogen [Mass/Vol] 10 mg/dL Normal 9-23 [facility] Comment on above: Performed By: #### E BS LIPID, EBS A1C, EBS CMP #### [address] [place] [address] [place] EBS A1C with Estimated Mallika hayes 05-10-2021 Glucose [Mass/Vol] 111 mg/dL Normal [facility] Comment on above: Result Comment: PERF ORMED BY: [place] [address] PATHOLOGIST RETAIL ASSOCIATE MANAGER BILINGUAL JERRY RAMSEY M.D. Performed By: #### E BS LIPID, EBS A1C, EBS CMP #### [address] HbA1c (Bld) [Mass fraction] 5.5 % Normal 4.3-5.6 [facility] Comment on above: Result Comment: Incr eased risk for diabetes: 5.7 - 6.4 diabetes: >6.4 glycemic control for adults with diabetes: <7.0 Performed By: #### E BS LIPID, EBS A1C, EBS CMP #### [facility] [address] [place] [address] Lipid Profileon 05-10-2021 Cholesterol [Mass/Vol] 202 mg/dL High 140-200 [facility] Comment on above: Result Comment: Chol less than 200 mg/dl low risk Chol 201-239 mg/dl borderline risk Chol 240 mg/dl and greater high risk Performed By: #### E BS LIPID, EBS A1C, EBS CMP #### [address] Cholesterol in HDL [Mass/Vol] 37 mg/dL Normal 35-85 [facility] Comment on above: Result Comment: HDL CHOL ATP-III CLASSIFICATION Cardiovascular Risk HDL > or equal to 60 mg/dL LOW HDL < 40 mg/dL HIGH Performed By: #### E BS LIPID, EBS A1C, EBS CMP #### [facility] [address] [place] [address] Cholesterol.total/Cho lesterol in HDL [Mass ratio] 5.5 {ratio} Normal <5.0 [facility] Comment on above: Result Comment: PERF ORMED BY: [place] [address] PATHOLOGIST RETAIL ASSOCIATE MANAGER BILINGUAL JIANLAN SUN M.D. Performed By: #### E BS LIPID, EBS A1C, EBS CMP #### [facility] [address] [place] [address] [place] LDL Cholesterol,Calculate d 125 mg/dL High 0-100 [facility] Comment on above: Result Comment: LDL ATP III CLASSIFICATION LDL less than 100 mg/dL Optimal LDL 100-129 mg/dL Near or above optimal LDL 130-159 mg/dL Borderline high LDL 160-189 mg/dL High LDL greater than 189 mg/dL Very high Performed By: #### E BS LIPID, EBS A1C, EBS CMP #### [facility] [address] Triglyceride w/Reflex 199 mg/dL High 35-149 [facility] Comment on above: Result Comment: TRIG ATP III CLASSIFICATION TRIG less than 150 mg/dL Normal TRIG 150-199 mg/dL Borderline high TRIG 200-500 mg/dL High TRIG greater than 500 mg/dL Very high Standard traceable to the Center for Disease Conrtrol and Prevention (CDC) test method. Performed By: #### E BS LIPID, EBS A1C, EBS CMP #### [facility]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 Unknown (06/07/2023) [place] Safety & Environment Fear of Current or [...] not heard Diastolic (more content not included)... [facility] 06-19-2022 Note This is a Telephone Appointment [...] dreaming in association with her activity. 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 Nutrition/Health Caffeine [...] 15:39 EST [facility] Evaluation note Diagnosis Pre-op examination Uterine leiomyoma, [...] of ([facility]) [facility] Diagnosis 29 weeks gestation of ([facility]) Third trimester ([facility]) state, incidental documented in this encounter [facility]ructionsNot on filedocumented in [facility] Purpose Family History No Family History [...] section and content) DATE CREATED AUTHOR 07/04/2021 [facility] DATE CREATED AUTHOR AUTHOR'S ORGANIZ ATION 2021 [facility] DATE CREATED AUTHOR AUTHOR'S ORGANIZ ATION 06/21/2022 [facility] DATE CREATED AUTHOR AUTHOR'S ORGANIZ ATION 12/15/2022 [facility] DATE CREATED AUTHOR AUTHOR'S ORGANIZ ATION 10/25/2024 [facility] DATE CREATED AUTHOR AUTHOR'S ORGANIZ ATION 11/05/2024 [facility] EPIC Care Teams (unrecognized sec tion and content) Bar Finish Operator Relationship Specialty Start Date End Date Adebayo Quinones MD [address] [place] [address] PCP - General Family Medicine 11/19/23 Bar Finish Operator Relationship Specialty Start Date End Date Adebayo Quinones MD [address] [place] [address] PCP - General Family Medicine 11/19/23 Bar Finish Operator Relationship Specialty Start Date End Date Adebayo Quinones MD [address] [place] [address] PCP - General Family Medicine 11/19/23 Bar Finish Operator Relationship Specialty Start Date End Date Adebayo Quinones MD [address] [place] [phone] (Work) PCP - General Family Medicine 11/19/23 Bar Finish Operator Relationship Specialty Start Date End Date Adebayo Quinones MD [address] [place] [phone] (Work) PCP - General Family Medicine 11/19/23 Bar Finish Operator Relationship Specialty Start Date End Date Adebayo Quinones MD [address] [place] [address] PCP - General Family Medicine 11/19/23 Bar Finish Operator Relationship Specialty Start Date End Date Adebayo Quinones MD [address] [place] [address] PCP - General Family Medicine 11/19/23 Bar Finish Operator Relationship Specialty Start Date End Date Adebayo Quinones MD [address] [place] [address] PCP - General Family Medicine 11/19/23 Bar Finish Operator Relationship Specialty Start Date End Date Adebayo Quinones MD [address] [place] [address] PCP - General Family Medicine 11/19/23 Bar Finish Operator Relationship Specialty Start Date End Date Adebayo Quinones MD [address] [place] [address] PCP - General Family Medicine 11/19/23 Bar Finish Operator Relationship Specialty Start Date End Date Adebayo Quinones MD [address] [place] [address] PCP - General Family Medicine 11/19/23 Reason [...] BE BASED ON THE PRIMARY CLINICAL RECORDS. [facility] [employer] provides no warranty or guarantee of the accuracy or completeness of information in this document.
== END 2024-11-13 18:50 | disposition home or self-care (01) ==
LOC: US 18:49
PROVIDERS: PCP Family Medicine; Visit Provider Obstetrics & Gynecology
DX: O43.123 Velamentous insertion of umbilical cord, third trimester (principal); Z36.2 Encounter for other antenatal screening follow-up
CPT/HCPCS: 76815

== ENCOUNTER 2024-11-24 08:00 | Outpatient (OUT) | payer BC, SELFPAY ==
--- OUTSIDE RECORDS SUMMARY | 2023-11-08 11:15 | XMS_ITS ---
Author Organization The [facility] in [place] Address [address] [place] [address] Care Team Providers Care Malted Milk Masher Name Role Phone Stacie Adebayo Primary Care Provider Allergies Allergen (clinical drug ingredient) Drug/Non Drug Allergy documented on EMR Reaction Allergy Type Onset Date Status Ragweed Unknown Allergy Active Reason For Referral Reason rectal bleeding Diagnosis 1 Hemorrhage of anus a nd rectum (K62.5) Referral Organization Family Practice [facility] Referring Provider First Name Adebayo Referring Provider Last Name Stacie Referring Provider Speciality Family Med [facility] Referred Provider Specialty General Surg estuardo [...] day Active PNV Active Vitamin D (Ergocalciferol) 63345 UNIT 1 capsule Orally qweekly for 30 days 06/18/2023 Active Metoprolol Tartrate 25 MG 1 tablet with food Orally Twice a day for 30 day(s) 11/14/2021 Not-Taking Meclizine HCl Not-Ta joy Social History Tobacco Use: Social History Observation Description Date Details (start date - stop date) Never Smoker NA - NA Tobacco Use/Smoking Question Answer Notes Patient 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 Problems Problem Type SNOMED Code ICD Code Onset Dates Problem Status W/U Status Risk Notes Problem 09430342 Vitamin D deficiency, unspecified (E55.9) Active confirmed Problem 781993126 Mixed hyperlipidemia (E78.2) Active confirmed Problem 665868003 Obesity, unspecified (E66.9) Active confirmed Problem 267704098 Body mass index [BMI] 36.0-36.9, adult (Z68.36) Active confirmed Problem 3821454 Female infertili ty, unspecified (N97.9) Active confirmed Vital Signs Blood pressure systolic 142 mm Hg 11/08/19 24 Blood pressure diastolic 90 mm Hg 024 Heart Rate 82 /min 11/08/2023 Respiratory Rate 16 /min 11/08/2023 Height 72 in 11/08/2023 Weight 272.2 lbs 11/08/2023 BMI 36.91 kg/m2 11/08/2023 Oximetry 98 % 11/08/2023 Encounters Encounter Location Date Provider Diagnosis [facility] [address] [place] [address] 11/08/2023 Adebayo Yaoring Hemorrhage of anus a nd rectum K62.5 [...] K62.5) fax referral to dr miner at [facility] for eval and tx and colonoscopy prob int hem fiber monitor 11/08/2023 Female infertility, unspecified (ICD-10 - N97.9) set up pelvic US - ?PCOS f/u stranner as directed ?PCOS - d/w pt possible [...] rectum fax referral to dr miner at [facility] for eval and tx and colonoscopy prob int hem fiber monitor Female infertility, unspecified set up pelvic US - ?PCOS f/u stranner as directed ?PCOS - d/w pt possible [...] Name:Adebayo burr, 01/26/2025 10:00:00 AM, [address] [place], [address], Progress Notes * Andressa TRIPLETTDOB: [birth year] (32 yo F)Acc No.[id number]:11/08/2023 Established Patient: Andressa ALBERT Provider: Maria E Quinones DO :1990 A ge:32 Y S ex:Female Date:11/08/2023 Address:[address] [place], [place] [address], [id number] Check In:03:03 PM ESTCheck O ut:03:23 PM [...] menses at time of bleeding appt with stranner 12/2023 trying to get for 1 year [...] Once a day PNV Vitamin D (Ergocalciferol) 22177 UNIT Capsule 1 capsule Orally qweekly Taking Omeprazole 40 MG Capsule Delayed Release 1 capsule 30 minutes before morning meal Orally Once a day Taking PNV Taking Vitamin D (Ergocalciferol) 59772 UNIT Capsule 1 capsule Orally qweekly Not-Taking/PRNMeclizine [...] reconciled with the patient * Allergies: R lodyaweedrody[Allergies Verified] Objective: * Vitals: W t:272.2lbs, Ht: [...] set up pelvic US - ?PCOS f/u stranner as directed ?PCOS - d/w pt possible [...] 11/08/2023 Generated for Tiffanie burr/Gaby/eTnaomismitting on: 0 11/24/2024 08:06 AM EDT History and Physical Notes * Examination [...]
--- OUTSIDE RECORDS SUMMARY | 2023-11-26 11:38 | XMS_ITS ---
Author Organization [facility] in [place] Address [address] [place] [address] Care Team Providers Care Housing Officer Name Role Phone Adebayo Quinones Primary Care Provider Results Component Value Reference Range Notes US Transabdominal & Transvag inal (Not yet reviewed by provider) Interpretation: Performing Lab: Notes/Report: REASON FOR VISIT need order changed Encounters Encounter Location Date Provider Diagnosis [facility] [address] [place] [address] 11/26/2023 Adebayo Quinones Female infertility, unspecified N97.9 Assessments Encounter Date Diagnosis (ICD Code) Assessment Notes Treatment Notes Treatment Clinical Notes Section Notes 11/26/2023 Female infertility, unspecified (ICD-10 - N97.9) Plan Of Treatment Pending Test Test Name Order Date US Transabdominal & Transvaginal 024 Next Appt Details Provider Name:Adebayo burr, 01/26/2025 10:00:00 AM, [address] [place], [address], Progress Notes * Andressa TRIPLETTDOB: [birth year] (32 yo F)Acc No.[id number]:11/26/2023 Patient: Andressa ALBERT :1990 A ge:32 Y S ex:Female Address:[address] [place] [address], [phone] Subjective: * Chief Complaints: * N eed order changed * Medical History: * Surgical History: * Hospitalization/Major Diagno stic Procedure: * Medications: Objective: * Vitals: * Physical Examination: Assessment: * Assessment: 1. F emale infertility, unspecified - N97.9 (Primary) Plan: * Treatment: * Procedure Codes: * true * Date: Generated for Tiffanie burr/Gaby/Aydensmmario on: 0 11/24/2024 08:07 AM EDT
--- OUTSIDE RECORDS SUMMARY | 2024-11-11 10:09 | XMS_ITS ---
Author Organization [facility] in [place] Address [address] [place] [address] Care Team Providers Care Chairman & Chief Executive Officer Name Role Phone Adebayo Quinones Primary Care Provider [phone] REASON FOR VISIT needs wellness Encounters Encounter Location Date Provider Diagnosis [facility] [address] [place] [address] 11/11/2024 Adebayo Quinones Plan Of Treatment Next Appt Details Provider Name:Adebayo burr, 01/26/2025 10:00:00 AM, [address] [place], [address], Progress Notes * Andressa TRIPLETTDOB: [birth year] (33 yo F)Acc No.[id number]:11/11/2024 Patient: Stephanie Andressa MORRISSEY :1990 A ge:33 Y S ex:Female Address:[address] [place] [address], [phone] * true * Date: Generated for Printi ng/Faxing/eTransmitting on: 0 11/24/2024 08:11 AM EDT
--- OUTSIDE RECORDS SUMMARY | 2024-11-18 08:50 | XMS_ITS | Encounter Summary ---
Author Organization [facility] Address [address] [place] [address] Care Team Providers Care Blow Moulding Machine Operator Name Role Phone Adebayo Quinones MD Primary Care Provider + [phone] Reason for Visit * Reason Comments Routine Visit Encounter Details Date Type Department Care Team (Late st Contact Info) Description 11/18/2024 8:50 AM EDT Routine [facility] [address] [place] [place] [address] Miguel Hannon DO [address] [place] [address] Third trimester ([facility]); 31 weeks gestation of ([facility]); Gestational diabetes mellitus (GDM), antepartum, gestational diabetes method of control unspecified ([facility]) Social History Tobacco Use Types Packs/Day Years Used Date Smoking Tobacco: Never Smokeless Tobacco: Never Alcohol Use Standard Drinks/Week Comments Never 0 (1 standard drink = 0.6 oz pur e alcohol) Estimated Date of Delivery Comme nts Yes 01/17/2025 Based on last me nstrual period of 04/12/2024 Sex and Gender Information Value Date Recorded Sex Assigned at Not on file Legal Sex Female 11:01 AM EDT Gender Identity Not on file Sexual Orientation Not on file documented as of this encounter Last Filed Vital Signs Vital Sign Reading Time Taken Comments Blood Pressure 112/70 11/18/2024 9:04 AM EDT Pulse - - Temperature - - Respiratory Rate - - Oxygen Saturation - - Inhaled Oxygen Concentration - - Weight 129 kg (284 lb) 11/18/2024 9:04 AM EDT Height - - Body Mass Index 38.52 01/16/2024 4:38 PM EDT documented in this encounter Progress Notes * Katarzyna JAJA Malagon - 11/18/2024 8:50 AM EDT Reason for Appointment: Patient ID: Andressa Prasad is a 33 y.o. female who presents for Routine Visit Patient presents today for Return OB appointment. MEDICATIONS Current Outpatient Medications Medication Instructions Alcohol Swabs (Alcohol Prep Pad) 70 % pads 1 Pad, Topical, Daily, Use four times daily to check FSBS. aspirin 81 mg, Daily RT Blood Glucose Monitoring Suppl ([employer] Glucometer) w/Device kit 1 kit, Does not apply, Daily, Use four times daily to check FSBS. In the morning prior to breakfast & 1 hour after each meal for a total of 4times daily. Glucose Blood (Blood Glucose Test) strip 1 strip, In Vitro, Daily, Use in the morning prior to breakfast, 1 hour after each meal for a total of 4times daily. Lancets Ultra Thin misc 1 each, In Vitro, Daily, Use to check FSBS four times daily omeprazole (PRILOSEC) 20 mg, Daily before breakfast [...] nursing note reviewed. Exam conducted with a executive administrative assistant present. Vitals: Estimated body mass index is 38.52 kg/m?? as calculated from the following: Height as of 01/16/24: 6'. Weight as of this encounter: 284 lb. BP: 112/70 Patient's last menstrual period was 04/12/2024. ASSESSMENT & PLAN ICD-10-CM 1. Third trimester ([facility]) Z34.93 Urine dip 2. 31 weeks gestation of ([facility]) Z3A.31 Urine dip 3. Gestational diabetes mellitus (GDM), antepartum, gestational diabetes method of control unspecified ([facility]) O24.419 Return OB: Patient presents today for a routine obstetrics appointment. Patient is currently 31w3d . Patient states she is doing well but has complaints of being tired due to current . Patient has verbalizes frequent movement. labor precautions was discussed/given and patient was instructed to perform kick counts three times a day. Pt being sent to [facility] to complete anatomy scan. RVOT and LVOT and lips not evaluated. Pt voiced understanding. Orders Placed This Encounter Procedures Urine dip Follow Up: Patient is to return to office in 2 week for routine OB appointment. Documented by Katarzyna Malagon LPN on behalf of: Miguel Riddhi, DO documented in this encounter Plan of Treatment Upcoming Encounters Date Type Department Care Team (Late st Contact Info) Description 12/02/2024 8:40 AM EDT Routine [facility] [address] [place] [address] Miguel Hannon DO [address] [place] [address] Scheduled Orders Name Type Priority Associated Diagnoses Orde r Schedule US biophysical profile w non stress test Imaging Routine Gestational diabetes mellitus (GDM), antepartum, gestational diabetes method of control unspecified ([facility]) Expected: 11/18/2024 (Approximate), Expires: 05/21/2025 documented as of this encounter Procedures Procedure Name Priority Date/Time Associated Diagnosis Comments POCT URINALYSIS DIPSTICK Routine 11/18/2024 10:23 AM EDT Third trimester ([facility]) 31 weeks gestation of ([facility]) documented in this encounter Results * Urine dip (11/18/2024 10:23 AM EDT) Color, UA Light Yellow Clarity, UA Clear Glucose, UA Trace Negative - 2000(110) ++++ mg/dL Bilirubin, UA Negative Negative - 4(70) +++ mg/dL Ketones, UA Negative Negative - 160(16) ++++ mg/dL Spec Grav, UA 1.015 1 - 1.03 Blood, UA Negative Negative - 50 Osmin/mcL pH, UA 6.0 5 - 9 Protein, UA Negative Negative - 2000(20) ++++ mg/dL Urobilinogen, UA 4.0 0.2 - 12 mg/dL Leukocytes, UA Negative Negative - 500+++ Oumou/mcL Nitrite, UA Negative Negative - Positive Urine 11/18/2024 10:2 3 AM EDT Miguel Hannon DO POINT OF CARE TEST ENTER/EDIT OR DERABLES Final Result documented in this encounter Visit Diagnoses Diagnosis Third trimester ([facility]) state, incidental 31 weeks gestation of ([facility]) Gestational diabetes mellitus (GDM), antepartum, gestational diabetes method of control unspecified ([facility]) documented in this encounter Care Teams Blow Moulding Machine Operator Relationship Specialty Start Date End Date Adebayo Quinones MD [address] [place] [address] [phone] PCP - General Family Medicine 11/19/23 documented as of this encounter
--- OUTSIDE RECORDS SUMMARY | 2024-11-20 10:30 | XMS_ITS | Encounter Summary ---
Author Organization [facility] tem Address [facility]-[id number] [address] [place] [address] Care Team Providers Care Cathode Ray Tube Salvage Processor Name Role Phone Unavailable Primary Care Provider Unavailabl e Reason for Visit * Reason Comments Gestational Diabetes * Consultation (Routine) - Pending Review Specialty Diagnoses / Procedures Referred By Contac t Referred To Contact Maternal and Medicine Diagnoses Gestational diabetes mellitus (GDM) in second trimester, gestational diabetes method of control unspecified Miguel Hannon, DO [address] [place] [address] [place] [address] Phone: tel: fax: Maternal- Medicine at [facility] [address] [place] [address] Phone: tel: fax: Referral ID Status Reason Start Date Expiration Date Visits Requested Visits Authorized [id number] Pending Review Specialty Services Required 11/11/2024 11/11/2025 1 1 Encounter Details Date Type Department Care Team (Late st Contact Info) Description 11/20/2024 10:30 AM EDT Telemedicine Maternal- Medicine at [facility] [address] [place] [address] Miroslava Trinidad RN [address] [address] Juli Quezada, ENE Mayo, Naom[place], ENE [address] [place] [address] Gestational diabetes mellitus (GDM) in second trimester, gestational diabetes method of control unspecified Social History Tobacco Use Types Packs/Day Years Used Date Smoking Tobacco: Never Assessed Hunger Screening Answer Date Recorded Within the past 12 months we worried whether our food would run out before we got money to buy more. Never True 11/20/2024 Within the past 12 months th e food we bought just didn't last and we didn't have money to get more. Never True 11/20/2024 Estimated Date of Delivery Comme nts Yes 01/17/2025 Based on last me nstrual period of 04/12/2024 Sex and Gender Information Value Date Recorded Sex Assigned at Not on file Legal Sex Female 2:41 PM EDT Gender Identity Not on file Sexual Orientation Not on file documented as of this encounter Progress Notes * Miroslava Trinidad RN - 11/20/2024 10:30 AM EDT DIABETES AND ASSESSMENT Type of diabetes: Prediabetes Age at onset: 31 Duration: 2 years Still : OB History Para Term AB Living 1 0 0 0 0 0 SAB IAB Ectopic Multiple Live Births 0 0 0 0 0 Patient's last menstrual period was 04/12/2024. 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 Alvin Hannon Name: Dr. Karena Quinones Name: City: City: City: Last time seen: 11/18/24 Last time seen: Last time seen: Eye Doctor Dentist Other Doctors Name: Name: Name: City: City: City: Last time seen: Last time seen: Last time seen: OB History Para Term AB Living 1 SAB IAB Ectopic Multiple Live Births # Outcome Date GA Lbr Bobo/2nd Weight Sex Type Anes PTL Lv 1 Current No Known Allergies Current Outpatient Medications Medication Sig Dispense Refill aspirin 81 mg Take 1 tablet (81 mg total) by mouth in the morning. omeprazole (PriLOSEC) 20 mg capsule Take 1 capsule (20 mg total) by mouth in the morning. PNV no.153/FA/om3/dha/epa/fish ( GUMMIES ORAL) Take 2 each by mouth in the morning. No current facility-administered medications for this visit. Previous Hospitalizations None No past surgical history on file. Personal diabetes history: Gestational Diabetes Unanswered Diabetes mellitus Unanswered Family History of diabetes: pertinent family history is not on file. ROS: Constitutional: No problems Head and Neck: Sleep apnea Lungs and breathing: No problems Heart:: No problems Blood disorders and other conditions: No problems Mental health: No problems Kidney, Bladder, and Sexual History: Fertility issues Circulation and Nerves: No problems Endocrine and Diabetes Conditions: Pre-diabetes Stomach and Intestines: Nausea/vomiting and GERD (heartburn) Educational Level: Preferred Methods for Learning: Watching someome do it first Is there anything about your culture, baptism, or personal beliefs weneed to know about to care for you: Other Tracking Primary Language spoken: Salvadorean [22] Primary Language for learning: Salvadorean Are you currently in a relationship where you are physically hurt, threatened or made to fee afraid? [] Yes [] No Executive Sous Chef needed? [] Yes [] No Marital status/Living arrangements [x] [] Single [] Partner [] Father of baby [] Friend [] Parent(s) [] Other family member [] Self Social History Social History Socioeconomic History Marital status: Spouse name: Not on file Number of children: Not on file Years of education: Not on file Highest education level: Not on file Occupational History Not on file Tobacco Use Smoking status: Not on file Smokeless tobacco: Not on file Substance and Sexual Activity Alcohol use: Not on file Drug use: Not on file Sexual activity: Not on file Other Topics Concern Not on file Social History Narrative Not on file Social Drivers of Health Financial Resource Strain: Not on file Food Insecurity: No Food Insecurity (11/20/2024) Hunger Screening Food Insecurity - Worry: Never True Food Insecurity - Inability: Never True Transportation Needs: Not on file Physical Activity: Not on file Stress: Not on file Social Connections: Not on file Interpersonal Safety: Unknown (06/07/2023) Received from [facility] [place] Safety & Environment Fear of Current or Ex-Partner: Not on file Emotionally Abused: Not on file Physically Abused: Not on file Sexually Abused: Not on file Physically or Sexually Abused: Not on file Housing Instability: Not on file Eating Schedule - What time do you: See Schedule Work day Day off Other (including weekends) Start your day Eat breakfast Eat lunch Eat dinner Eat snacks Go to bed Exercise Everyday Stress Level Stress Scale [] 1 Low [x] 2 [] 3 [] 4 [] 5 High Stress related to: excitement Support systems: Excellent Comfort Level Are you currently experiencing any pain? [] Yes [x]No If yes, where: On thge following scale, um[place] tribe the number, which describes your current level of pain. [] 0 [] 1 [] 2 [] 3 [] 4 [] 5 [] 6 [] 7 [] 8 [] 9 [] 10 No Pain Worst Pain Possible How long does the pain last?: What do you do to help the pain go away? PLEASE COMPLETE THE FOLLOWING QUESTIONS - IF YOU HAVE DIABETES NOW OR HAVE HAD WITH A PREVIOUS HAVE YOU HAD ANY OF THE FOLLOWING SYMPTOMS OF LOW BLOOD SUGARS Shaky [] Yes [] No Irritability [] Yes [] No Heart Palpitations [] Yes [] No Nervousness [] Yes [] No Cold sweats [] Yes [] No Headache [] Yes [] No Passed out [] Yes [] No Dizzy [] Yes [] No Confusion [] Yes [] No Seizures [] Yes [] No What do you use to treat your low blood sugars? Diabetes Testing and Medication Use Yes No Do you currently use a glucose testing meter? If yes, how often do you test? Dexcom G7 [x] [] Did you take insulin during any of these previous pregnancies? [] [x] Have your insulin reactions (low blood sugars) changed in any way recently? N/A If yes, please describe how they have changed. [] [] Have you ever received any diabetic education? If yes, where and when: [] [x] Patient present for Diabetes Education via telemedicine. Given schedule to spread meals and snacks out throughout the day. Noted good knowledge base using glucometer and proper sharps disposal. Discussed continuous glucose monitor (CGM) Dexcom G7. Has had Prediabetes; managed blood sugars with dietand physical activity. Did report Metformin use for Prediabetes and aide in getting ; notedstopped a significant amount of time prior to OGTT(s). Reported family history of diabetes. Discussed complications for mom and baby related to GDM. Random sensor glucose 143 today 11/20/24. Referred to Diabetes Self- Management Support Plan in folder. Discussed plan to check blood sugar four times daily, fasting and 1 hour after meals including sending them to weekly on Sunday night/Sunday and being active 30 minutes most days of the week with logging this on BG log weekly if not using CGM. Discussed logging events in CGM and connecting CGM to clinic practice account. Noted will contact weekly regarding BG log/CGM report being reviewed and instructions/recommendations. Face to face time 45 minutes. . * ENE Byers - 11/20/2024 10:30 AM EDT Nutritional Assessment Form Date: 11/20/2024 WILLIE: Estimated Date of Delivery: 01/17/25 EGA: 31w5d No past medical history on file. OB History 1 Para Term AB Living SAB IAB Ectopic Multiple Live Births Current Outpatient Medications Medication Sig Dispense Refill aspirin 81 mg Take 1 tablet (81 mg total) by mouth in the morning. omeprazole (PriLOSEC) 20 mg capsule Take 1 capsule (20 mg total) by mouth in the morning. PNV no.153/FA/om3/dha/epa/fish ( GUMMIES ORAL) Take 2 each by mouth in the morning. No current facility-administered medications for this visit. Present MNT Therapy: Regular Insulin Therapy: Date started: Anthropometric Data: Height: Ht Readings from Last 1 Encounters: No data found for Ht Pre- Wt: Pregravid weight not on file Pre- BMI: Could not be calculated Current BMI: There is no height or weight on file to calculate BMI. Pre Wt. Category: Obese Current Weight: Wt Readings from Last 1 Encounters: No data found for Wt Weight Gain Goals: 11-20 pounds Lab Data: BP BP Readings from Last 1 Encounters: No data found for BP Hgb Hct OGCT OGTT HgA1C SMBG: Frequency : Testing Times: Glucose meter: Records Kept? [] Yes [] No Lifestyle Factors: Occupation of the mother: Substance Abuse: Living Conditions Hours worked per week 40-50 hours weekly Educational Level Masters Family issues stable Cultural/ethnic/adventist influences demies Exercise approved by MD? Yes Current Exercise program walking 5 miles Who prepares the meal Self Who purchase food at your home? Self and S.O Equipment use for cooking/food storage Has everything Food Assistance(Ex.WIC, Food [place]) Declined Dining out Yes Twice a week Appetite/Appetite changes Flucuates, better lately Weight History Stable Do you have cats at home? Infant Feeding Plans Breast Feeding If you have cats, who cleans the litter box? Cravings/Aversions/Pica Only food aversions to meat Nutrition Assessment Worksheet: Week/Weekend Food Recall Breakfast Salvadorean muffin with cream cheese or yogurt, water Snack Fruit, 2 cups of cherries Lunch Pizza hut stack pizza (2 slices) and water or chicken breast and sweet potatoes Snack fruit Dinner Spaghetti, cheese bread Snack Hasn't been snacking Snack Time 9AM 11 AM 1 PM 5 PM 7-8 PM 9-9:30 PM Seen for a telehealth session. Andressa Prasad presents for diet instruction per doctor order secondary to diagnosis of gestational diabetes. Noted history of obesity. Food recall suggests patient typically consumes a higher carbohydrate diet, has had an aversion to meat/poultry with this . Initially Andressa was experiencing a lot of nausea and vomiting, she is finally feeling better. Pt reports losing weight, her pre- weight was 282 pounds. Based on patient's stated pre- weight, weight gain goalis 11-20 pounds. Nutrition diagnosis: inconsistent and sometimes higher carbohydrate intake relatedto lack of nutrition knowledge as evidenced by patient's food recall. Instructed patient on a 2400 kcal meal plan of 3 meals and 3 snacks, carbohydrate counting, label reading, dining out, and portion control. Discussed foods rich in iron and calcium. Encouraged patient to measure food for 2 days and record two day's worth of food records. Pt expressed understanding with counting carbohydrates and agreed to send RD a 2 day food log. Please refer to health habits for other goals. Reviewed the Diabetes Self Management Support Plan, discussed using apps/websites to help manage her diabetes. Patient understands that we will follow up weekly with a phone call to review progress. Breakfast 9 AM 30 grams of CHO, Snack 11 AM 30 grams of CHO, Lunch 1 PM 45-60 grams of CHO, Snack 5PM 30 grams of CHO, Dinner 7-8 PM 45-60 grams of CHO, HS Snack 9-9:30 PM 30 grams of CHO. Face to face time 38 minutes. documented in this encounter Plan of Treatment Not on file documented as of this encounter Visit Diagnoses Diagnosis Gestational diabetes mellitus (GDM) in second trimester, gestational diabetes method of control unspecified documented in this encounter
--- OUTSIDE RECORDS SUMMARY | 2024-11-24 08:06 | XMS_ITS | Encounter Summary ---
Author Organization [facility] Address [address] [facility] [place] [address] Care Team Providers Care Cigar Wrapper Tender Automatic Name Role Phone Adebyao Quinones MD Primary Care Provider + [phone] Encounter Details Date Type Department Care Team (Late Contact Info) Description 04/04/2024 Abstract [facility] [address] [place] [address] Miguel Hannon DO [facility] [address] [place], [place] [address] Social History Tobacco Use Types Packs/Day Years Used Date Smoking Tobacco: Never Smokeless Tobacco: Never Alcohol Use Standard Drinks/Week Comments Never 0 (1 standard drink = 0.6 oz pur e alcohol) Comments No Sex and Gender Information Value Date Recorded Sex Assigned at Not on file Legal Sex Female 11:01 AM EDT Gender Identity Not on file Sexual Orientation Not on file documented as of this encounter Plan of Treatment Upcoming Encounters Date Type Department Care Team (Late Contact Info) Description 12/02/2024 8:40 AM EDT Routine [facility] [address] [facility] [facility] [place] [address] Miguel Hannon DO [facility] [place] [id number] documented as of this encounter Visit Diagnoses Not on filedocumented in this encounter Care Teams Cigar Wrapper Tender Automatic Relationship Specialty Start Date End Date Adebayo Quinones [place] [address] PCP - General Family Medicine 11/19/23 documented as of this encounter
--- OUTSIDE RECORDS SUMMARY | 2024-11-24 08:08 | XMS_ITS | Encounter Summary ---
Author Organization [facility] Address [address] [place] [address] Care Team Providers Care Assembly Machine Offbearer Name Role Phone Adebayo Quinones DO Primary Care Provider [phone] Encounter Details Date Type Department Care Team (Late st Contact Info) Description 08/21/2024 Orders Only [facility] [address] [place] [address] Janell Felton MD [address] [place] [address] Social History Tobacco Use Types Packs/Day Years Used Date Smoking Tobacco: Never Smokeless Tobacco: Never Alcohol Use Standard Drinks/Week Comments Never 0 (1 standard drink = 0.6 oz pur e alcohol) [place] [facility] Environment Answer Date Rec orded Fear of Current or Ex-Partner Not on file Emotionally Abused Not on file 06/07/2023 Physically Abused Not on file 06/07/2023 Sexually Abused Not on file 06/07/2023 Physically or Sexually Abused Not on file Comments Unknown Sex and Gender Information Value Date Recorded Sex Assigned at Female 06/18/2023 8:37 AM EST Legal Sex Female 2:02 PM EDT Gender Identity Female 06/18/2023 8:37 AM EST Sexual Orientation Heterosexual or Straight 07/2023 8:37 AM EST documented as of this encounter Plan of Treatment Not on file documented as of this encounter Procedures Procedure Name Priority Date/Time Associated Diagnosis Comments CARDIAC DEVICE CHECK - REMOTE - LOOP RECORDER (ILR) Routine 08/21/2024 12:00 AM EDT documented in this encounter Results * Cardiac device check - Remote loop recorder (ILR) (08/21/2024 12:00 AM EDT) Anatomical Region Laterality Modality Other 08/21/2024 Janell Felton MD CV IMPLANTABLE CARDIAC DEVICE PROCEDURES Final Result documented in this encounter Visit Diagnoses Not on filedocumented in this encounter Care Teams Assembly Machine Offbearer Relationship Specialty Start Date End Date Adebayo Quinones DO [address] [place] [address] PCP - General 11/14/22 documented as of this encounter
--- OUTSIDE RECORDS SUMMARY | 2024-11-24 08:09 | XMS_ITS | Encounter Summary ---
Author Organization [facility] Address [address] [facility] [place] [address] Care Team Providers Care Excel Analyst Name Role Phone Adebayo Quinones MD Primary Care Provider + [phone] Encounter Details Date Type Department Care Team (Late Contact Info) Description 12/25/2023 Abstract [facility]NAN[facility] [address] [place] [address] Miguel Hannon DO [facility] [place], [place] [address] Social History Tobacco Use Types Packs/Day Years [...] AM EDT Routine [facility] [address] [facility] [place] [address] Miguel Hannon DO [facility] [place] [id number] documented as of this encounter Visit Diagnoses Not on filedocumented in this encounter Care Teams Excel Analyst Relationship Specialty Start Date End Date Adebayo Quinones MD [facility] [place] [address] PCP - General Family Medicine 11/19/23 documented as of this encounter
--- OUTSIDE RECORDS SUMMARY | 2024-11-24 08:09 | XMS_ITS | Clinical Summary ---
Author Organization [facility] Address [address] [place] [address] Care Team Providers Care Career Development Facilitator Name Role Phone Adebayo Quinones DO Primary Care Provider [phone] Allergies No known active allergies Medications omeprazole (PriLOSEC) [address] capsule if needed. Activ e Vitamin D2 1,250 mcg (50,000 unit) capsule Take 1 capsule by mouth 1 (one) time per week. 07/05/2023 Active aspirin 81 mg EC tablet Take 81 mg by mouth in the morning. Active Active Problems Problem Noted Date Diagnosed Date Body mass index (BMI) 36.0-36.9, adult Female infertility, unspecified 12/11/2023 Mixed hyperlipidemia 12/11/2023 Vitamin D deficiency, unspecified 12/11/2023 Status post placement of implantable loop record er 09/19/2023 CAROLA (obstructive sleep apnea) 04/24/2023 Syncope and collapse 11/14/2022 Assessment & Plan (11/14/2022 9:34 AM EDT): - Last episode 12 years ago - she is still having symptoms of presyncope daily - never had tilt table test, will order - her symptoms do sound neurocardiogenic, she does not seem to get hypotensive or tachycardic with her symptoms Palpitations Assessment & Plan (11/14/2022 9:32 AM EDT): - 30-day event monitor - echocardiogram Encounters Date Type Department Care Team Description 10/22/2024 1:50 AM EDT Ancillary Procedure [facility] [address] [place] [address] Awareness of heartbeats 10/22/2024 Orders Only [facility] [address] [place] [address] Janell Felton MD 10/21/2024 10:00 AM EDT Office Visit [facility] [address] [place] [address] Yoseph Mcintosh MD Palpitations (Primary Dx) from Last 3 Months Family History Medical History Relation Name Comments Diabetes Father Kidney disease Father Heart attack Maternal Grandmother Atrial fibrillation Mother Relation Name Status Comments Father Alive Maternal Grandmother Mother Alive Social History Tobacco Use Types Packs/Day Years Used Date Smoking Tobacco: Never Smokeless Tobacco: Never Tobacco Cessation:Counseling Given: Not Answered Alcohol Use Standard Drinks/Week Comments Never 0 [...] Heterosexual or Straight 07/2023 8:37 AM EST Last Filed Vital Signs Vital Sign Reading Time Taken Comments Blood Pressure 122/79 10/21/2024 9:57 AM EDT Pulse 97 10/21/2024 9:57 AM EDT Temperature - - Respiratory Rate 16 06/18/2023 9:08 AM EST Oxygen Saturation 98% 10/21/2024 9:57 AM EDT Inhaled Oxygen Concentration - - Weight 129 kg (284 lb) 10/21/2024 9:57 AM EDT Height 182.9 cm (6') 10/21/2024 9:57 AM EDT Body Mass Index 38.52 10/21/2024 9:57 AM EDT Plan of Treatment Health Maintenance Due Date Last Done Comments Depression Screening 2003 Hepatitis B Vaccines (1 of 3 - 19+ 3-dose series) 12/23/2010 Varicella Vaccines (2 of 2 - 13+ 2-dose series) 02/05/2020 01/08/2020 HPV/Cotest 12/23/2021 COVID-19 Vaccine ( season) 2024 01/20/2024, 04/01/2021, 08/23/2020, Additional history exists Influenza Vaccine (#1) 2024 , 02/12/2023, 02/03/2022, Additional history exists Cervical Cancer Screening 12/12/2026 Pap Smear 12/12/2026 12/13/2023, 05/17/2012 Adult Tetanus 01/25/2030 01/26/2020 Zoster Vaccines (1 of 2) 12/23/2041 01/08/2020 HIB Vaccines Completed 06/16/1993, 06/14, 05/13/1992, Additional history exists IPV Vaccines Completed 12/05/1996, 06/1993, 05/13/1992, Additional history exists HPV Vaccines Aged Out No longer eligi ble based on patient's age to complete this topic Meningococcal B Vaccine Aged Out No l onger eligible based on patient's age to complete this topic Meningococcal Vaccine Aged Out No jim cheri eligible based on patient's age to complete this topic Pneumococcal Vaccine: Pediatrics (0 to 5 Years) and At-Risk Patients (6 to 64 Years) Aged Out No longer eligible based on patient's age to complete this topic Rotavirus Vaccines Aged Out No longer eligible based on patient's age to complete this topic Medical Devices Implanted Type Area Industrial Truck Operator Device Identifier Shelf Expiration Date Model / Serial / Lot Monitor,Cardi ac,Lux,Dxii+I cm - [id number] - [id number] Implanted:Qty : 1 on 06/18/2023 by Yoseph Mcintosh MD at [facility] Implantable Loop Recorder Left: [employer] 11/26/2024 [id number] / [id number] / Procedures Procedure Name Priority Date/Time Associated Diagnosis Comments CARDIAC DEVICE CHECK CHECK - REMOTE Routine 11/12/2024 4:50 PM EDT Awareness of heartbeats CARDIAC DEVICE CHECK - REMOTE - LOOP RECORDER (ILR) Routine 10/22/2024 12:00 AM EDT CARDIAC DEVICE CHECK CHECK - REMOTE Routine 09/02/2024 10:28 AM EDT Awareness of heartbeats from Last 3 Months Results * CARDIAC DEVICE CHECK - REMOTE - LOOP RECORDER (ILR) (11/12/2024 4:50 PM EDT) Only the most recent of2 resultswithin the time period is included. us Rajat Colbert MD CV IMPLANTABLE CARDIAC DEVICE VA OCEDURES Final Result CPACS * Cardiac device check - Remote loop recorder (ILR) (10/22/2024 12:00 AM EDT) Anatomical Region Laterality Modality Other 10/22/2024 us Janell Felton MD CV IMPLANTABLE CARDIAC DEVICE PROCEDURES Final Result from Last 3 Months Insurance [facility] Member Subscriber Plan / Payer (Ef fective 2024-Present) Name:Andressa Triplett Relation to Subscriber:Unknown Name:FABY TRIPLETT Date of :1989 (Home) Address: [address] [place] [id number] Payer ID:[id number] (NAIC) Type:Not on file Address: [facility] [id number] Care Teams Career Development Facilitator Relationship Specialty Start Date End Date Adebayo Quinones DO [address] [place] [address] PCP - General 11/14/22
--- OUTSIDE RECORDS SUMMARY | 2024-11-24 08:09 | XMS_ITS | Clinical Summary ---
Author Organization [facility] Address [address], [address] [place] [address] Care Team Providers Care Tray Packer Name Role Phone Unavailable Primary Care Provider Unavailabl e Social History Tobacco Use Types Packs/Day Years Used Date Smoking Tobacco: Never Assessed Comments Unknown Sex and Gender Information Value Date Recorded Sex Assigned at Not on file Legal Sex Female 8:07 AM EDT Gender Identity Not on file Sexual Orientation Not on file Plan of Treatment Health Maintenance Due Date Last Done Comments Depression Screen 2003 Varicella vaccine (1 of 2 - 13+ 2-dose series) 12/23/2004 HIV screen 12/23/2006 Hepatitis C screen 12/23/2009 DTaP/Tdap/Td vaccine (1 - Tdap) 12/23/2010 Hepatitis B vaccine (1 of 3 - 19+ 3-dose series) 12/23/2010 Pap smear 12/23/2012 Cervical cancer screen 12/23/2021 HPV (without or with Pap) 12/23/2021 COVID-19 Vaccine ( - 2023-2 5 season) 2023 Flu vaccine (#1) 11/14/2024 HPV vaccine Aged Out No longer eligi ble based on patient's age to complete this topic Hepatitis A vaccine Aged Out No longe r eligible based on patient's age to complete this topic Hib vaccine Aged Out No longer eligi ble based on patient's age to complete this topic Meningococcal (ACWY) vaccine Aged Out No longer eligible based on patient's age to complete this topic Meningococcal B vaccine Aged Out No l onger eligible based on patient's age to complete this topic Pneumococcal 0-49 years Vaccine Aged Out No longer eligible based on patient's age to complete this topic Polio vaccine Aged Out No longer elig ible based on patient's age to complete this topic Insurance
--- OUTSIDE RECORDS SUMMARY | 2024-11-24 08:09 | XMS_ITS | Encounter Summary ---
Author Organization [facility] Address [address] [facility] [place] [address] Care Team Providers Care Isotope Technologist Name Role Phone Adebayo Quinones MD Primary Care Provider + [phone] Encounter Details Date Type Department Care Team (Late Contact Info) Description 12/13/2023 Abstract [facility] [address] [place] [address] Miguel Hannon DO [facility] [place], [place] [address] Social History Tobacco Use Types Packs/Day Years [...] EDT Routine [facility] [address] [place] [address] Miguel Hannon DO [facility] [place] [phone] documented as of this encounter Visit Diagnoses Not on filedocumented in this encounter Care Teams Isotope Technologist Relationship Specialty Start Date End Date Adebayo Quinones MD [facility] [place] [address] PCP - General Family Medicine 11/19/23 documented as of this encounter
--- OUTSIDE RECORDS SUMMARY | 2024-11-24 08:09 | XMS_ITS | Encounter Summary ---
Author Organization [facility] Address [address] [place] [address] Care Team Providers Care Tonguer Name Role Phone Adebayo Quinones DO Primary Care Provider [phone] Encounter Details Date Type Department Care Team (Late st Contact Info) Description 10/22/2024 Orders Only [facility] [address] [place] [address] Janell Felton MD [address] [place] [address] Social History Tobacco Use Types [...] RECORDER (ILR) Routine 10/22/2024 12:00 AM EDT documented in this encounter Results * Cardiac device check - Remote loop recorder (ILR) (10/22/2024 12:00 AM EDT) Anatomical Region Laterality Modality Other 10/22/2024 Janell Felton MD CV IMPLANTABLE CARDIAC DEVICE PROCEDURES Final Result documented in this encounter Visit Diagnoses Not on filedocumented in this encounter Care Teams Tonguer Relationship Specialty Start Date End Date Adebayo Quinones DO [address] [place] [address] PCP - General 11/14/22 documented as of this encounter
--- OUTSIDE RECORDS SUMMARY | 2024-11-24 08:09 | XMS_ITS | Patient Health Record ---
Author Organization [facility] [place] Address [address] [place] [address] Care Team Providers Care Account Leader Name Role Phone Adebayo Quinones Primary Care Provider Allergies Allergen (clinical drug ingredient) Drug/Non Drug Allergy documented on EMR Reaction Allergy Type Onset Date Status Ragweed Unknown Allergy Active Results Component Value Reference Range Notes US Transabdominal & Transvag inal (Not yet reviewed by provider) Interpretation: Performing Lab: Notes/Report: Reason For Referral No Information Medications Medication SIG (Take, Route, Frequency, Duration) Notes Start Date End Date Status methylPREDNISolone 4 MG as directed Oral ly for 6 days 08/30/2023 Not-Taking Metoprolol Tartrate 25 MG 1 tablet with food Orally Twice a day for 30 day(s) 11/14/2021 Not-Taking ZyrTEC Not-Taking Omeprazole 40 MG 1 capsule 30 minutes before morning meal Orally Once a day Active PNV Active Vitamin D (Ergocalciferol) 93595 UNIT 1 capsule Orally qweekly for 30 days 06/18/2023 Active Meclizine HCl Not-Ta joy Immunizations Vaccine Route Administration Date Status Comme nts Flu, Fluzone (05190) 6 mos+, single-dose syringe/vial (6890-8031) Unknown 02/12/2023 Administered Social History Tobacco Use: Social History Observation Description Date Details (start date - stop date) Never Smoker NA - NA Tobacco Use/Smoking Question Answer Notes Patient 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 Alcohol Screen (Audit-C) Question Answer Notes Did you have a drink containing alcohol in the p ast year? No Points 0 Interpretation Negative Section Notes: BEAUTY OPERATOR APPRENTICE BEAUTY OPERATOR APPRENTICE BEAUTY OPERATOR APPRENTICE BEAUTY OPERATOR APPRENTICE Problems Problem Type SNOMED Code ICD Code Onset Dates Problem Status W/U Status Risk Notes Problem 39716006 Vitamin D deficiency, unspecified (E55.9) Active confirmed Problem 11504714893937 Morbid (severe) obesity due to excess calories (E66.01) Active confirmed Problem 708165405 Obesity, unspecified (E66.9) Active confirmed Problem 391662352 Mixed hyperlipidemia (E78.2) Active confirmed Problem 1569037 Female infertili ty, unspecified (N97.9) Active confirmed Problem 82133312 CAROLA (obstructive sleep apnea) (G47.33) Active confirmed Problem 420952966 Gastroesophageal reflux disease without esophagitis (K21.9) Active confirmed Problem 69907901 Sleep walking (F51.3) Active confirmed Problem 965096495 Insomnia, unspecified type (G47.00) Active confirmed Problem 58576517 Night terrors (F51.4) Active confirmed Problem 626020817 Body mass index [BMI] 36.0-36.9, adult (Z68.36) Active confirmed Problem 170887196 Body mass index [BMI] 38.0-38.9, adult (Z68.38) Active confirmed Encounters Encounter Location Date Provider Diagnosis [facility] [address] [place] [address] 11/11/2024 Adebayo Quinones [facility] [address] [place] [address] 11/26/2023 Adebayo Quinones Female infertility, unspecified N97.9 Assessments Encounter Date Diagnosis (ICD Code) Assessment Notes Treatment Notes Treatment Clinical Notes Section Notes 11/26/2023 Female infertility, unspecified (ICD-10 - N97.9) Plan Of Treatment Pending Test Test Name Order Date CMP (COMPLETE METABOLIC PANEL) 4 HEMOGLOBIN A1C (GLYCO) 05/28/2023 LIPID PANEL (CHOL/TRIG/HDL/LDL) 05/28/19 24 CBC WITH DIFF 05/28/2023 T3 FREE (T3FR) 05/28/2023 T4 FREE (T4FR) 05/28/2023 TSH 05/28/2023 VITAMIN D, 25 LEVEL (TOTAL) 05/28/2023 XR Chest PA and Lateral (Routine CXR) * 08/30/2023 CT Brain w/o contrast 12/08/2021 CT Temporal Bones w/o contrast * 022 US Transabdominal & Transvaginal 024 US Transvaginal Pelvic 11/08/2023 VITAMIN B12 LEVEL AND FOLATE (FOLIC ACID ) 05/28/2023 Next Appt Details Provider Name:Adebayo Watt aminah, 01/26/2025 10:00:00 AM, [address] [place], [address], Insurance Providers Payer Name Payer Address Payer Phone Subscriber Number Group Number Insured Name Patient Relationship to Insured Coverage Start Date Coverage End Date AN[employer]M ACCESS PPO PLUS LOCAL PLAN [address] [place] [address] [id number] Andressa Prasad Self - patient is the insured 4 Medical (General) History Medical History History ICD Code prediabetes B12 deficiency hyperlipidemia gerd carola
--- OUTSIDE RECORDS SUMMARY | 2024-11-24 08:09 | XMS_ITS | Encounter Summary ---
Author Organization [facility] Address [address], [address] [place] [address] Care Team Providers Care Asphalt Tar And Gravel Roofer Name Role Phone Unavailable Primary Care Provider Unavailabl e Reason for Referral * Other (Routine) - Closed Specialty Diagnoses / Procedures Referred By Contac t Referred To Contact Cardiology Diagnoses Palpitations Syncope and collapse Procedures Tilt Table Test Clarence Wolf APRN - CNP Phone: tel: fax: Referral ID Status Reason Start Date Expiration Date Visits Re quested Visits Authorized [id number] Closed 11/16/2022 11/16/2023 1 1 Encounter Details Date Type Department Care Team (Latest Contact Info) Description 11/16/2022 Transcribe Orders [place] [facility] [address] [place] [address] Clarence Wolf APRN - CNP [address] [place] [address] Palpitations (Primary Dx); Syncope and collapse Social History Tobacco Use Types Packs/Day Years Used Date Smoking Tobacco: Never Assessed Comments Unknown Sex and Gender Information Value Date Recorded Sex Assigned at Not on file Legal Sex Female 8:07 AM EDT Gender Identity Not on file Sexual Orientation Not on file documented as of this encounter Plan of Treatment Scheduled Orders Name Type Priority Associated Diagnoses Orde r Schedule Tilt Table Test Cardiac Services Routine Palpitations Syncope and collapse Expected: 11/16/2022, Expires: 11/17/2023 documented as of this encounter Visit Diagnoses Diagnosis Palpitations- Primary Syncope and collapse documented in this encounter
--- OUTSIDE RECORDS SUMMARY | 2024-11-24 08:09 | XMS_ITS | Encounter Summary ---
Author Organization [facility] Address [address] [facility] [place] [address] Care Team Providers Care X Ray Developing Machine Operator Name Role Phone Adebayo Quinones MD Primary Care Provider [phone] Encounter Details Date Type Department Care Team (Late st Contact Info) Description 11/10/2024 Clinisync Result Encounter [facility] External Department Unsolicited Miguel Hannon DO [address] [place] [phone] Social History Tobacco Use Types Packs/Day Years [...] 12/02/2024 8:40 AM EDT Routine [facility] [address]ED [address] [place] [id number] Miguel Hannon DO [address] [place] [address] documented as of this encounter Procedures Procedure Name Priority Date/Time Associated Diagnosis Comments GLUCOSE TOLERANCE 3 HOUR Routine 11/10/2024 8:45 AM EDT documented in this encounter Results * (ABNORMAL) GLUCOSE TOLERANCE 3 HOUR (11/10/2024 8:45 AM EDT) GLUCOSE TOLERANCE 3 HOUR (H) mg/dL [facility] Comment: GLU FAST 113H (<95) Col: 11/10/24 0845 GLU 1HR 208H (<180) Col: 11/10/24 0945 GLU 2HR 152 (<155) Col: 11/10/24 1052 GLU 3HR 81 (<140) Col: 11/10/24 1147 11/10/2024 8:45 AM EDT 11/10/2024 8:47 AM EDT Narrative [facility] - 11/10/2024 12:29 PM EDT us Miguel Riddhi DO LAB BLOOD ORDERABLES [facility]ul [facility] documented in this encounter Visit Diagnoses Not on filedocumented in this encounter Care Teams X Ray Developing Machine Operator Relationship Specialty Start Date End Date Adebayo Quinones MD [facility] [place] [address] PCP - General Family Medicine 11/19/23 documented as of this encounter
[2024-11-24 08:10] VITALS: BP 138/65; PULSE 108
--- OUTSIDE RECORDS SUMMARY | 2024-11-24 08:10 | XMS_ITS | Encounter Summary ---
Author Organization [facility] Address [address] [facility] [place] [address] Care Team Providers Care Floor Hand Name Role Phone Adebayo Quinones MD Primary Care Provider + [phone] Encounter Details Date Type Department Care Team (Late Contact Info) Description 11/10/2024 Abstract [facility] HERNANDEZ [facility] [place] [address] Miguel Hannon DO [facility] [place], [id number] Social History Tobacco Use Types Packs/Day Years [...] Info) Description 12/02/2024 8:40 AM EDT Routine [facility] [place] [place] [address] Miguel Hannon DO [address] [place], [place] [address] documented as of this encounter Visit Diagnoses Not on filedocumented in this encounter Care Teams Floor Hand Relationship Specialty Start Date End Date Adebayo Quinones MD [address] [place] [address] PCP - General Family Medicine 11/19/23 documented as of this encounter
--- OUTSIDE RECORDS SUMMARY | 2024-11-24 08:10 | XMS_ITS | Encounter Summary ---
Author Organization [facility] Address [address] [place] [address] Care Team Providers Care Tower Loader Operator Name Role Phone Adebayo Quinones MD Primary Care Provider + [phone] Encounter Details Date Type Department Care Team (Late st Contact Info) Description 11/10/2024 Telephone [facility] [address] [facility] [place] [address] Miguel Hannon DO [address] [place], [facility] Social History Tobacco Use Types Packs/Day Years [...] on file documented as of this encounter Miscellaneous Notes * Telephone Encounter - Nancy Camp LPN - 11/10/2024 2:47 PM EDT Patient was called with results and she was advised Dr would like to send to [facility] and she will take her supplies that are being sent into pharmacy with her so they can instruct her and she will do a log and bring with her. Patient was given numbers and reassured they are second eyes to help here. PVU and will wait for call. documented in this encounter Plan of Treatment Upcoming Encounters Date Type Department Care Team (Late st Contact Info) Description 12/02/2024 8:40 AM EDT Routine [facility] [address] [facility] [place] [address] Miguel Hannon DO [address] [facility] [place] [address] documented as of this encounter Visit Diagnoses Diagnosis Gestational diabetes mellitus (GDM), antepartum, gestational diabetes method of control unspecified ([facility]) Elevated glucose tolerance test Impaired glucose tolerance test documented in this encounter Care Teams Tower Loader Operator Relationship Specialty Start Date End Date Adebayo Quinones MD [facility] [place] [address] PCP - General Family Medicine 11/19/23 documented as of this encounter
--- OUTSIDE RECORDS SUMMARY | 2024-11-24 08:10 | XMS_ITS | Encounter Summary ---
Author Organization [facility] Address [address] [facility] [place] [address] Care Team Providers Care Slot Supervisor Name Role Phone Adebayo Solares MD Primary Care Provider [phone] Encounter Details Date Type Department Care Team (Late st Contact Info) Description 11/14/2024 Clinisync Result Encounter NOMS External Department Unsolicited Kenn Hannon DO [address], [facility]11 Social History Tobacco Use Types Packs/Day Years [...] AM EDT Routine [facility] [address] [place] [phone] Kenn Hannon DO [address] [place] [address] documented as of this encounter Procedures Procedure Name Priority Date/Time Associated Diagnosis Comments US OB INCOMPLETE ANATOMY 11/14/2024 10:06 AM EDT documented in this encounter Results * US OB INCOMPLETE ANATOMY (11/14/2024 10:06 AM EDT) Anatomical Region Laterality Modality Other 11/14/2024 10:0 6 AM EDT Narrative 11/14/2024 10:09 [place] [address] Ultrasound Report Signed Patient: JAVID TRIPLETT MR#: [id number] : 1990 Acct:[id number] Age/Sex: 33 / F ADM Date: 11/13/24 Loc: US Attending Dr: Kenn Hannon D.O. Ordering Physician: Kenn Hannon D.O. Date of Service: 11/13/24 Procedure(s): US OB incomplete anatomy Accession Number(s): [id number] cc: Kenn Hannon D.O.; ADEBAYO SOLARES D.O. [place] [address] Patient Name: JAVID TRIPLETT MRN: [id number] date: 1990 Sex: F Assigned Patient Location: US Current Patient Location: Accession/Order Number: [id number] Exam Date: 11/14/2024 09:56 Report Date: 11/14/2024 10:06 At the request of: KENN HANNON DO Procedure: US OB incomplete anatomy OB ultrasound. Result for exam: Follow-up anatomic survey. COMPARISON: Scrotal ultrasound 10/30/2024. Please note that no anatomy survey is seen within PACS for direct comparison. TECHNIQUE: Transabdominal imaging of the gravid uterus was obtained. FINDINGS: Single live intrauterine is seen with a heart rate 154 bpm. A three-vessel cord is noted. Cord insertion appears normal. The RVOT/LVOT and lips are still suboptimally evaluated due to position and patient body habitus. US/US OB incomplete anatomy IMPRESSION: Three-vessel cord is noted. Please note that the LVOT/RVOT and lips are still suboptimally evaluated due to addition and patient body habitus. Impression dictated by: Mark Anthony Conner Jr., D.O. 11/14/2024 10:06 AM Dictation Location: [place] [address] Electronically authenticated by: [id number] Y Date: 11/14/2024 10:06 Dictated By: Mark Anthony Conner M.D. Signed By: 11/14/24 1009 DD/ 1006 TD/TT: Survey Rodman: Procedure Note Radiology, Radiologist, MD - 11/14/2024 [place] [address] Ultrasound Report Signed Patient: JAVID TRIPLETT DMR#: [id number] : 1990Acct:[id number] Age/Sex: 33 / FADM Date: 11/13/24 Loc: US Attending Dr: Kenn Hannon D.O. Ordering Physician: Kenn Hannon D.O. Date of Service: 11/13/24 Procedure(s): US OB incomplete anatomy Accession Number(s): [id number] cc: Kenn Hannon D.O.; ADEBAYO SOLARES D.O. The [place] [id number] Patient Name: JAVID TRIPLETT MRN: [id number] date: 1990 Sex: F Assigned Patient Location: US Current Patient Location: Accession/Order Number: [id number] Exam Date: 11/14/2024 09:56 Report Date: 11/14/2024 10:06 At the request of: KENN HANNON DO Procedure: US OB incomplete anatomy OB ultrasound. Result for exam: Follow-up anatomic survey. COMPARISON: Scrotal ultrasound 10/30/2024. Please note that no anatomysurvey is seen within PACS for direct comparison. TECHNIQUE: Transabdominal imaging of the gravid uterus was obtained. FINDINGS: Single live intrauterine is seen with a heartrate 154 bpm. A three-vessel cord is noted. Cord insertion appears normal.The RVOT/LVOT and lips are still suboptimally evaluated due to positionand patient body habitus. US/US OB incomplete anatomy IMPRESSION: Three-vessel cord is noted. Please note that the LVOT/RVOTand lips are still suboptimally evaluated due to addition and patientbody habitus. Impression dictated by: Mark Anthony Conner Jr., D.O. 11/14/2024 10:06 AM Dictation Location: [place] [address] Electronically authenticated by: [id number] Y Date: 0:06 Dictated By: Mark Anthony Conner M.D. Signed By:11/14/24 1009 DD/ 1006 TD/TT: Survey Rodman: us Kenn Riddhi DO [facility] Final Result documented in this encounter Visit Diagnoses Not on filedocumented in this encounter Care Teams Slot Supervisor Relationship Specialty Start Date End Date Adebayo Solares MD [facility] [place] [address] PCP - General Family Medicine 11/19/23 documented as of this encounter
--- OUTSIDE RECORDS SUMMARY | 2024-11-24 08:11 | XMS_ITS | Encounter Summary ---
Author Organization [facility] Address [address] [facility] [place] [address] Care Team Providers Care Associate Professor Of Counseling Name Role Phone Adebayo Quinones MD Primary Care Provider [phone] Encounter Details Date Type Department Care Team (Late Contact Info) Description 11/18/2024 Bamboo flowsheet [facility] [place] [address] Miguel Hannon DO [facility] [address], [place] [address] Social History Tobacco Use Types Packs/Day Years [...] 8:40 AM EDT Routine [facility] [place] [address] Miguel Hannon DO [facility] [address], [facility]11 documented as of this encounter Visit Diagnoses Not on filedocumented in this encounter Care Teams Associate Professor Of Counseling Relationship Specialty Start Date End Date Adebayo Quinones MD [address] [place] [address] PCP - General Family Medicine 11/19/23 documented as of this encounter
--- OUTSIDE RECORDS SUMMARY | 2024-11-24 08:11 | XMS_ITS | Clinical Summary ---
Author Organization [facility] Address [address] [place] [address] Care Team Providers Care Manager Field Services Name Role Phone Adebayo Solares MD Primary Care Provider + [phone] Allergies No known active allergies Medications omeprazole (PriLOSEC) [address] capsule Take 20 mg by mouth in the morning. Take before meals. Active aspirin 81 MG EC tablet Take 81 mg by mouth in the morning. Active Lancets Ultra Thin miscIndications: Gestational diabetes mellitus (GDM), antepartum, gestational diabetes method of control unspecified (HHS-HCC),Elevat ed glucose tolerance test 1 each by In Vitro route Daily Use to check FSBS four times daily 150 each 3 5 12/11/19 25 Active Alcohol Swabs (Alcohol Prep Pad) 70 % padsIndications: Gestational diabetes mellitus (GDM), antepartum, gestational diabetes method of control unspecified (HHS-HCC),Elevat ed glucose tolerance test Apply 1 Pad topically Daily Use four times daily to check FSBS. 150 each 3 5 Active Glucose Blood (Blood Glucose Test) stripIndications :Gestational diabetes mellitus (GDM), antepartum, gestational diabetes method of control unspecified (HHS-HCC),Elevat ed glucose tolerance test 1 strip by In Vitro route Daily Use in the morning prior to breakfast, 1 hour after each meal for a total of 4times daily. 150 strip 3 5 12/11/19 25 Active Blood Glucose Monitoring Suppl (D-Care Glucometer) w/Device kitIndications:G estational diabetes mellitus (GDM), antepartum, gestational diabetes method of control unspecified (HHS-HCC),Elevat ed glucose tolerance test 1 kit Daily Use four times daily to check FSBS. In the morning prior to breakfast & 1 hour after each meal for a total of 4times daily. 1 kit 5 11/11/19 26 Active Encounters Date Type Department Care Team Description 11/18/2024 8:50 [place] [phone] Kenn Hannon, DO Third trimester ([facility]); 31 weeks gestation of ([facility]); Gestational diabetes mellitus (GDM), antepartum, gestational diabetes method of control unspecified ([facility]) 11/18/2024 [place] [address] Katarzyna Malagon LPN 11/18/2024 [place] [phone] Kenn Hannon, DO 11/14/2024 Clinisync Result Encounter NOMS External Department Unsolicited Kenn Hannon, DO 11/10/2024 [place] [address] Kenn Hannon, DO 11/10/2024 [place] [address] Kenn Hannon, DO 11/10/2024 Clinisync Result Encounter NOMS External Department Unsolicited Kenn Hannon, DO 11/03/2024 3:10 [place] [address] Kenn Hannon, DO 29 weeks gestation of ([facility]); Third trimester ([facility]); Encounter for follow-up ultrasound of anatomy ([facility]) 11/03/2024 Bamboo flowsheet [place] [address] Kenn Hannon DO 10/31/2024 Clinisync Result Encounter NOMS External Department Unsolicited Maureen Feliz PA 10/21/2024 8:30 AM EDT Routine [facility] [place] [phone] Maureen Feliz PA Size of fetus inconsistent with dates in second trimester ([facility]) (Primary Dx); Second trimester ([facility]); 27 weeks gestation of ([facility]) 10/21/2024 Bamboo flowsheet [facility] [address] [place] [address] [place] [address] Maureen Feliz PA 10/20/2024 Travel 09/16/2024 9:30 AM EDT Routine [facility] [place] [address] Kenn Hannon DO Second trimester ([facility]); 22 weeks gestation of ([facility]); Elevated glucose tolerance test 09/16/2024 8:30 AM EDT Ancillary Procedure [facility] [address] [facility] [place] [phone] Screening, , for anatomic survey ([facility]) 08/27/2024 Telephone [facility] [address] [place] [address] [place] [address] Sravani Bourgeois MA from Last 3 Months Family History Medical History Relation Name Comments Arthritis Father Adebayo Marco Diabetes Father Adebayo Marco Hyperlipidemia Father Adebayo Marco Hypertension Father Adebayo Marco Kidney disease Father Adebayo Marco Stroke Father Adebayo Marco Diabetes Maternal Grandfather James Lissa Hypertension Maternal Grandmother Sandy [place]iline Diabetes Paternal Grandfather Rito Marco Kidney disease Paternal Grandfather Rito Marco Relation Name Status Comments Father Adebayo Marco Maternal Grandfather James Lissa Maternal Grandmother Sandy Tiline Paternal Grandfather Rito Marco Social History Tobacco Use Types Packs/Day Years [...] on file Sexual Orientation Not on file Last Filed Vital Signs Vital Sign Reading Time Taken Comments Blood Pressure 112/70 11/18/2024 9:04 AM EDT Pulse 88 11/19/2023 8:30 AM EDT Temperature - - Respiratory Rate 16 11/19/2023 8:30 AM EDT Oxygen Saturation 99% 11/19/2023 8:30 AM EDT Inhaled Oxygen Concentration - - Weight 129 kg (284 lb) 11/18/2024 9:04 AM EDT Height 182.9 cm (6') 01/16/2024 4:38 PM EDT Body Mass Index 38.52 01/16/2024 4:38 PM EDT Plan of Treatment Upcoming Encounters Date Type Department Care Team (Late st Contact Info) Description 12/02/2024 8:40 AM EDT Routine [facility] [address] [facility] [place] [phone] Kenn Hannon DO [address] [facility] [address] [place], [place] [address] Health Maintenance Due Date Last Done Comments Influenza Vaccine (#1) 2024 , 02/12/2023, 02/03/2022, Additional history exists Cervical Cancer Screening 12/12/2028 HPV/Cotest 12/12/2028 Pap Smear 12/12/2028 12/13/2023, 05/17/2012 Procedures Procedure Name Priority Date/Time Associated Diagnosis Comments POCT URINALYSIS DIPSTICK Routine 11/18/2024 10:23 AM EDT Third trimester ([facility]) 31 weeks gestation of ([facility]) US OB INCOMPLETE ANATOMY 11/14/2024 10:06 AM EDT GLUCOSE TOLERANCE 3 HOUR Routine 11/10/2024 8:45 AM EDT POCT URINALYSIS DIPSTICK Routine 11/03/2024 3:12 PM EDT 29 weeks gestation of ([facility]) Third trimester ([facility]) US OB GROWTH 10/31/2024 7:41 AM EDT POCT URINALYSIS DIPSTICK Routine 10/21/2024 8:49 AM EDT Second trimester ([facility]) 27 weeks gestation of ([facility]) POCT URINALYSIS DIPSTICK Routine 09/16/2024 9:55 AM EDT Second trimester ([facility]) US OB 14+ WEEKS ANATOMY SCAN Routine 09/16/2024 9:34 AM EDT Screening, , for anatomic survey ([facility]) PAP SMEAR Routine 12/13/2023 12:00 AM EDT from Last 3 Months or Most Recently Relevant to Health Maintenance Results * Urine dip (11/18/2024 10:23 AM EDT) Only the most recent of4 resultswithin the time period is included. Color, UA Light Yellow Clarity, UA Clear Glucose, UA Trace Negative - 1999(110) ++++ mg/dL Bilirubin, UA Negative Negative - 4(70) +++ mg/dL Ketones, UA Negative Negative - 160(16) ++++ mg/dL Spec Grav, UA 1.015 1 - 1.03 Blood, UA Negative Negative - 50 Osmin/mcL pH, UA 6.0 5 - 9 Protein, UA Negative Negative - 1999(20) ++++ mg/dL Urobilinogen, UA 4.0 0.2 - 12 mg/dL Leukocytes, UA Negative Negative - 500+++ Oumou/mcL Nitrite, UA Negative Negative - Positive Urine 11/18/2024 10:2 3 AM EDT us Kenn Hannon DO POINT OF CARE TEST ENTER/EDIT OR DERABLES Final Result * US OB INCOMPLETE ANATOMY (11/14/2024 10:06 AM EDT) Anatomical Region Laterality Modality Other 11/14/2024 10:0 6 AM EDT Narrative 11/14/2024 10:09 [place] [address] Ultrasound Report Signed Patient: JAVID PRASAD MR#: [id number] : 1990 Acct:[id number] Age/Sex: 33 / F ADM Date: 11/13/24 Loc: US Attending Dr: Kenn Hannon D.O. Ordering Physician: Kenn Hannon D.O. Date of Service: 11/13/24 Procedure(s): US OB incomplete anatomy Accession Number(s): [id number] cc: Kenn Hannon D.O.; ADEBAYO SOLARES D.O. [place] [id number] Patient Name: JAVID PRASAD MRN: [id number] date: 1990 Sex: F Assigned Patient Location: US Current Patient Location: Accession/Order Number: [id number] Exam Date: 11/14/2024 09:56 Report Date: 11/14/2024 [...] Jr., D.O. 11/14/2024 10:06 AM Dictation Location: [place] [address] Electronically authenticated by: [id number] Y Date: 11/14/2024 10:06 Dictated By: Mark Anthony Conner M.D. Signed By: 11/14/24 1009 DD/ 1006 TD/TT: Missile Control Pilot: Procedure Note Radiology, Radiologist, MD - 11/14/2024 [place] [address] Ultrasound Report Signed Patient: JAVID PRASAD DMR#: [id number] : 1990Acct:[id number] Age/Sex: 33 / FADM Date: 11/13/24 Loc: US Attending Dr: Kenn Hannon D.O. Ordering Physician: Kenn Hannon D.O. Date of Service: 11/13/24 Procedure(s): US OB incomplete anatomy Accession Number(s): [id number] cc: Kenn Hannon D.O.; ADEBAYO SOLARES D.O. The [place] [id number] Patient Name: JAVID PRASAD MRN: [id number] date: 1990 Sex: F Assigned Patient Location: US Current Patient Location: Accession/Order Number: [id number] Exam Date: 11/14/2024 09:56 Report Date: 11/14/2024 [...] Jr., D.O. 11/14/2024 10:06 AM Dictation Location: [place] [address] Electronically authenticated by: [id number] Y Date: 0:06 Dictated By: Mark Anthony Conner M.D. Signed By:11/14/24 1009 DD/ 1006 TD/TT: Missile Control Pilot: us Kenn Riddhi DO [facility] Final Result * (ABNORMAL) GLUCOSE TOLERANCE 3 HOUR (11/10/2024 8:45 AM EDT) GLUCOSE TOLERANCE 3 HOUR (H) mg/dL TBH Comment: GLU FAST 113H (<95) Col: 11/10/24 0845 GLU 1HR 208H (<180) Col: 11/10/24 0945 GLU 2HR 152 (<155) Col: 11/10/24 1052 GLU 3HR 81 (<140) Col: 11/10/24 1147 11/10/2024 8:45 AM EDT 11/10/2024 8:47 AM EDT Narrative [facility] - 11/10/2024 12:29 PM EDT us Kenn Riddhi DO LAB BLOOD ORDERABLES Final Resul t [facility] * US OB GROWTH (10/31/2024 7:41 AM EDT) Anatomical Region Laterality Modality Other 10/31/2024 7:41 AM EDT Narrative 10/31/2024 7:44 AM EDT The [address] [address] Ultrasound Report Signed Patient: JAVID PRASAD MR#: [id number] : 1990 Acct:[id number] Age/Sex: 33 / F ADM Date: 10/30/24 Loc: US Attending Dr: Maureen Feliz Ordering Physician: Maureen Feliz Date of Service: 10/30/24 Procedure(s): US OB growth Accession Number(s): [id number] cc: Maureen Feliz; ADEBAYO SOLARES D.O. [place] [id number] Patient Name: JAVID PRASAD MRN: [id number] date: 1990 Sex: F Assigned Patient Location: US Current Patient Location: Accession/Order Number: [id number] Exam Date: 10/31/2024 07:37 Report Date: 10/31/2024 [...] Crow M.D. 10/31/2024 7:41 AM Dictation Location: [place] [address] Electronically authenticated by: [id number] Y Date: 10/31/2024 07:41 Dictated By: Katarzyna Crow M.D. Signed By: 10/31/24 0744 DD/ 0741 TD/TT: Missile Control Pilot: Procedure Note Radiology, Radiologist, - 10/31/[address] [address] Ultrasound Report Signed Patient: JAVID PRASAD DMR#: [id number] : 1990Acct:[id number] Age/Sex: 33 / FADM Date: 10/30/24 Loc: US Attending Dr: Maureen Feliz Ordering Physician: Maureen Feliz Date of Service: 10/30/24 Procedure(s): US OB growth Accession Number(s): [id number] cc: Maureen Feliz; ADEBAYO SOLARES D.O. The [place] [id number] Patient Name: JAVID PRASAD MRN: [id number] date: 1990 Sex: F Assigned Patient Location: US Current Patient Location: Accession/Order Number: [id number] Exam Date: 10/31/2024 07:37 Report Date: 10/31/2024 07:41 At the request of: MAUREEN FELIZ Procedure: US OB growth ULTRASOUND OB GROWTH CLINICAL DATA: size and consistent with dates COMPARISON: None There is a single live intrauterine gestation in cephalic presentation.There is cardiac and somatic activity with heart [...] based these measurements is 29 weeks 3 days+/- 2 weeks 0 days. Reported gestational age based on prior information is 28weeks 2 days. This is still within standard deviation of expected intervalgrowth since the prior. The estimated weight is 2 lbs. 15 oz. +/- 7 ounces (70%). US/US OB growth IMPRESSION: SINGLE LIVE INTRAUTERINE GESTATION WITH ESTIMATED ULTRASOUND AGE OF 29WEEKS 3 DAYS. Impression dictated by: Katarzyna Crow M.D. 10/31/2024 7:41 AM Dictation Location: [place] [address] Electronically authenticated by: [id number] Y Date: 7:41 Dictated By: Katarzyna Crow M.D. Signed By:10/31/24 0744 DD/ TD/TT: Missile Control Pilot: us Maureen SINGLETON [facility] Final Result * US OB 14+ weeks anatomy scan (09/16/2024 9:34 AM EDT) Anatomical Region Laterality Modality Body Ultrasound 09/18/2024 8:50 AM EDT Narrative 09/18/2024 8:50 AM EDT EXAM: US OB 14+ WEEKS ANATOMY SCAN [...] II, MD, PHD at 18-Sep-2024 08:49:14 AM [facility] Procedure Note Thomas Olivares MD - 09/18/2024 EXAM: US OB 14+ WEEKS ANATOMY SCAN HISTORY: anatomy. COMPARISON: Ob ultrasound 06/19/2024. TECHNIQUE: Two-dimensional transabdominal grayscale ultrasound imaging ofthe pelvis was performed. FINDINGS: Gestation: Single Presentation: Cephalic Cardiac Activity: 164 beats per minute Placental Location: Anterior with no sonographic abnormalitiesidentified. Distance from Placental Tip to Cervix: 7.4 [...] is 22 weeks 5 days (+/- 11 daysgestation). Estimated Weight: 533 grams, +/- 80 grams [...] gestation 22 weeks, 3 days by LMP. Today'sultrasound measurements correlate with a gestational age of 22 weeks 5days. Estimated weight is 533 grams, +/- 80 grams ( 1 lb 3 oz) whichcorrelates to 61 %. WILLIE is 01/15/2025. 2. Limited anatomy, as described above. A short-term follow-upultrasound is recommended. Interpreted by: Electronically signed by THOMAS OLIVARES II, MD, PHD [id number] 08:49:14 AM [facility] us Maureen [facility] IM[facility] OB US PROCEDURES Final Resul t * Pap Smear (12/13/2023 12:00 AM EDT) Swab Cervical swab / Unknown us Kenn Hannon DO LAB CYTOLOGY ORDERABLES Final Re sult EXTERNAL LAB from Last 3 Months or Most Recently Relevant to Health Maintenance Insurance Care Teams Manager Field Services Relationship Specialty Start Date End Date Adebayo Solares MD [address] [place] [address] PCP - General Family Medicine 11/19/23
--- OUTSIDE RECORDS SUMMARY | 2024-11-24 08:11 | XMS_ITS | Encounter Summary ---
Author Organization [facility] Address [address] [facility] [place] [address] Care Team Providers Care Thimble Press Operator Name Role Phone Adebayo Quinones MD Primary Care Provider + [phone] Encounter Details Date Type Department Care Team (Late st Contact Info) Description 11/18/2024 Telephone [facility] [address] [place] [address] Katarzyna Malagon LPN Social History Tobacco Use Types Packs/Day Years [...] encounter Miscellaneous Notes * Telephone Encounter - Katarzyna Malagon LPN - 11/18/2024 9:26 AM EDT [facility] for completion of anatomy scan, RVOT and LVOT and lips not evaluated. documented in this encounter Plan of Treatment Upcoming Encounters Date Type Department Care Team (Late st Contact Info) Description 12/02/2024 8:40 AM EDT Routine [facility] [address] [place] [address] Miguel Hannon, DO [address] [place] [address] [place] [address] documented as of this encounter Visit Diagnoses Not on filedocumented in this encounter Care Teams Thimble Press Operator Relationship Specialty Start Date End Date Adebayo Quinones MD [address] [place] [address] PCP - General Family Medicine 11/19/23 documented as of this encounter
--- OUTSIDE RECORDS SUMMARY | 2024-11-24 08:13 | XMS_ITS | Encounter Summary ---
Author Organization [facility] [employer] [facility] tem Address [facility]-[id number] [address] [place] [address] Care Team Providers Care Special Agent Name Role Phone Unavailable Primary Care Provider Unavailabl e Encounter Details Date Type Department Care Team (Late st Contact Info) Description 11/13/2024 Abstract Maternal- Medicine at [facility] [address] [place] [address] Provider, Generic External Data Social History Tobacco Use Types Packs/Day Years Used Date Smoking Tobacco: Never Assessed Estimated Date of Delivery Comme nts Yes [...] Procedure Name Priority Date/Time Associated Diagnosis Comments HIV 1&2 AB/AG SCREEN (P24 AG) Routine 07/15/2024 RUBELLA IGG IMMUNE STATUS Routine 07/15/2024 SYPHILIS TOTAL(UNKNOWN SYPHILIS STATUS) Routine 07/15/2024 GLU 1H POST 50G LOAD Routine 07/15/2024 DRUG SCREEN, URINE Routine 07/15/2024 HEPATITIS B SURFACE ANTIGEN Routine 07/15/2024 CBC (NO DIFF) Routine 07/15/2024 CBC AND DIFFERENTIAL Routine 07/15/2024 TYPE AND SCREEN Routine 07/15/2024 HEMOGLOBIN A1C Routine 07/15/2024 BASIC METABOLIC PANEL Routine 07/15/2024 documented in this encounter Results * Hepatitis B surface antigen (07/15/2024) Hepatitis B Surface Antigen negative MANUALLY TRANSCRIBED RESULTS Blood Venous blood / Unknown us Not In System Ref Prov LAB BLOOD ORDERABLES Tanisha l Result Performing Organization Address [facility] Co de Phone Number MANUALLY TRANSCRIBED RESULTS * CBC without diff (07/15/2024) Rbc Mcv (Fl) By Automated Count 85.4 MANUALLY TRANSCRIBED RESULTS Blood Venous blood / Unknown us Not In System Ref Prov LAB BLOOD ORDERABLES Tanisha l Result Performing Organization Address [facility] Co de Phone Number MANUALLY TRANSCRIBED RESULTS * HIV 1&2 AB/AG Screen (P24 AG) (07/15/2024) HIV 1&2 AB/AG non reactive MAN UALLY TRANSCRIBED RESULTS Blood Venous blood / Unknown us Not In System Ref Prov LAB BLOOD ORDERABLES Tanisha l Result MANUALLY TRANSCRIBED RESULTS * Type and screen (07/15/2024) Abo/Rh(D) O Positive MANUALLY TRANSCRIBED RESULTS Antibody Screen negative MANUALLY TRANSCRIBED RESULTS Blood Venous blood / Unknown us Not In System Ref Prov BLOOD BANK TEST ORDERABLE S Final Result MANUALLY TRANSCRIBED RESULTS * Rubella IGG immune status (07/15/2024) Rubella immune IgG 1.77 MANUALLY TRANSCRIBED RESULTS Blood Venous blood / Unknown us Not In System Ref Prov LAB BLOOD ORDERABLES Tanisha l Result Performing Organization Address [facility] Co de Phone Number MANUALLY TRANSCRIBED RESULTS * Syphilis Total (Unknown Syphilis Status) (07/15/2024) Syphilis non reactive MANUALL Y TRANSCRIBED RESULTS Blood Venous blood / Unknown us Not In System Ref Prov LAB BLOOD ORDERABLES Tanisha l Result Performing Organization Address [facility] de Phone Number MANUALLY TRANSCRIBED RESULTS * Glucose 1h post 50g load (07/15/2024) Glucose, 1Hr PP 182 MANUALLY TRANSCRIBED RESULTS Blood Venous blood / Unknown us Not In System Ref Prov LAB BLOOD ORDERABLES Tanisha l Result Performing Organization Address [facility] de Phone Number MANUALLY TRANSCRIBED RESULTS * Hemoglobin A1c (07/15/2024) Hemoglobin A1C 5.5 4.0 - 6.0 % MANUALLY TRANSCRIBED RESULTS Blood Venous blood / Unknown us Miguel R Riddhi DO LAB BLOOD ORDERABLES Final Resu lt Performing Organization Address City/[facility] Co de Phone Number MANUALLY TRANSCRIBED RESULTS * Basic Metabolic Panel (07/15/2024) Glucose 111 mg/dL MANUALLY TRANSCRIBED RESULTS Blood Venous blood / Unknown us Miguel R Riddhi DO LAB BLOOD ORDERABLES Final Resu lt Performing Organization Address City/[facility]/ZIP Co de Phone Number MANUALLY TRANSCRIBED RESULTS * CBC and differential (07/15/2024) Hemoglobin 13.6 12.0 - 16.0 g/dL MANUALLY TRANSCRIBED RESULTS Hematocrit 42 36 - 46 % MANUALLY TRANSCRIBED RESULTS Platelets 392 150 - 399 10*3/uL MANUALLY TRANSCRIBED RESULTS Auto WBC 9.2 3.3 - 10.0 10*3/mL MANUALLY TRANSCRIBED RESULTS Blood us Miguel R Riddhi DO LAB BLOOD ORDERABLES Final Resu lt MANUALLY TRANSCRIBED RESULTS * Drug Screen, Urine (07/15/2024) Methadone negative MANUALLY TRANSCRIBED RESULTS Opiates negative MANUALLY TRANSCRIBED RESULTS Amphetamine/Methamp hetamine negative MANUALLY TRANSCRIBED RESULTS Cocaine Metabolite negative M ANUALLY TRANSCRIBED RESULTS Phencyclidine negative MANUAL LY TRANSCRIBED RESULTS Thc Marijuana, Urine negative MANUALLY TRANSCRIBED RESULTS Oxycodone negative MANUALLY TRANSCRIBED RESULTS Barbiturates negative MANUALL Y TRANSCRIBED RESULTS Benzodiazepines negative MANU ALLY TRANSCRIBED RESULTS Urine us Not In System Ref Prov URINE ORDERABLES Final Re sult MANUALLY TRANSCRIBED RESULTS documented in this encounter Visit Diagnoses Not on filedocumented in this encounter
--- OUTSIDE RECORDS SUMMARY | 2024-11-24 08:13 | XMS_ITS | Encounter Summary ---
Author Organization [facility] tem Address [id number] [address] [place] [address] Care Team Providers Care Sustainability Analyst Name Role Phone Unavailable Primary Care Provider Unavailabl e Encounter Details Date Type Department Care Team (Late st Contact Info) Description 11/13/2024 Orders Only Maternal- Medicine at [facility] [address] [place] [phone] Ref Prov, [place] [address] Social History Tobacco Use Types Packs/Day Years [...] Name Priority Date/Time Associated Diagnosis Comments US PREG LMTD 1 OR MORE FETUS Routine 11/13/2024 11:25 AM EDT US PREG LMTD 1 OR MORE FETUS Routine 11/13/2024 11:24 AM EDT US PREG LMTD 1 OR MORE FETUS Routine 11/13/2024 11:22 AM EDT documented in this encounter Results * Ultrasound limited 1 or more fetus (11/13/2024 11:25 AM EDT) Anatomical Region Laterality Modality OB-LEAD DENTAL ASSISTANT Ultrasound us Not In System Ref Prov IMG US ORDERABLES Final R esult * Ultrasound limited 1 or more fetus (11/13/2024 11:24 AM EDT) Anatomical Region Laterality Modality OB-LEAD DENTAL ASSISTANT Ultrasound us Not In System Ref Prov IMG US ORDERABLES Final R esult * Ultrasound limited 1 or more fetus (11/13/2024 11:22 AM EDT) Anatomical Region Laterality Modality OB-LEAD DENTAL ASSISTANT Ultrasound us Not In System Ref Prov IMG US ORDERABLES Final R esult documented in this encounter Visit Diagnoses Not on filedocumented in this encounter
--- OUTSIDE RECORDS SUMMARY | 2024-11-24 08:13 | XMS_ITS | Encounter Summary ---
Author Organization [facility] tem Address [facility][id number] [address] [place] [address] Care Team Providers Care Audio Visual Coordinator Name Role Phone Unavailable Primary Care Provider Unavailabl e Encounter Details Date Type Department Care Team (Latest Contact Info) Description 11/20/2024 Travel Social History Tobacco Use Types Packs/Day Years [...]
--- OUTSIDE RECORDS SUMMARY | 2024-11-24 08:13 | XMS_ITS | Clinical Summary ---
Author Organization [facility] Address [id number] [address] [place] [address] Care Team Providers Care Hand Sample Maker Name Role Phone Unavailable Primary Care Provider Unavailabl e Allergies No known active allergies Medications omeprazole (PriLOSEC) 20 mg capsule Take 1 capsule (20 mg total) by mouth in the morning. Active aspirin 81 mg Take 1 tablet (81 mg total) by mouth in the morning. Active PNV no.153/FA/om3/d hill/epa/fish ( GUMMIES ORAL) Take 2 each by mouth in the morning. Active Encounters Date Type Department Care Team Description 11/20/2024 10:30 AM EDT Telemedicine Maternal- Medicine at [facility] [address] [place] [phone] Miroslava Trinidad RN Crawford, Sarah, LD Karl, Deborah, LD Gestational diabetes mellitus (GDM) in second trimester, gestational diabetes method of control unspecified 11/20/2024 Travel 11/13/2024 Orders Only Maternal- Medicine at [facility] [address] [place] [phone] Ref Prov, Not In System 11/13/2024 Abstract Maternal- Medicine at [facility] [address] [place] [phone] Provider, Generic External Data from Last 3 Months Family History Medical History Relation Name Comments Diabetes type II Father Diabetes type II Paternal Grandfather Relation Name Status Comments Father Paternal Grandfather Social History Tobacco Use Types Packs/Day Years [...] Date Last Done Comments Depression Screening 2003 Tobacco Screening 2003 Adult BMI Screening 12/23/2009 Influenza Vaccine 12/15/2024 01/20/2024, , 02/03/2022, Additional history exists Pap Smear 12/12/2026 12/13/2023 DTaP,Tdap and Td Vaccines (7 - Td or Tdap) 01/25/2030 01/26/2020, 12/05/1996, 06/16/1993, Additional history exists Medical Devices Not on file Procedures Procedure Name Priority Date/Time Associated Diagnosis Comments US PREG LMTD 1 OR MORE FETUS Routine 11/13/2024 11:25 AM EDT US PREG LMTD 1 OR MORE FETUS Routine 11/13/2024 11:24 AM EDT US PREG LMTD 1 OR MORE FETUS Routine 11/13/2024 11:22 AM EDT from Last 3 Months Results * Ultrasound limited 1 or more fetus (11/13/2024 11:25 AM EDT) Only the most recent of3 resultswithin the time period is included. Anatomical Region Laterality Modality OB-DAY CARE ASSISTANT Ultrasound us Not In System Ref Prov IMG US ORDERABLES Final R esult from Last 3 Months Insurance [facility]
== END 2024-11-24 08:38 | disposition home or self-care (01) ==
LOC: FBCO 08:02 → FBC 08:02
PROVIDERS: PCP Family Medicine; Visit Provider Obstetrics & Gynecology
DX: O99.283 Endocrine, nutritional and metabolic diseases complicating pregnancy, third trimester (principal); Z3A.32 32 weeks gestation of pregnancy
CPT/HCPCS: 59025

== ENCOUNTER 2024-11-27 19:01 | Outpatient (OUT) | payer BC, SELFPAY ==
--- OUTSIDE RECORDS SUMMARY | 2023-11-08 11:15 | XMS_ITS ---
Author Organization The [facility] in [place] Address [address] [place] [address] Care Team Providers Care House Shorer Name Role Phone Stacie Adebayo Primary Care Provider Allergies Allergen (clinical drug ingredient) Drug/Non Drug Allergy documented on EMR Reaction Allergy Type Onset Date Status Ragweed Unknown Allergy Active Reason For Referral Reason rectal bleeding Diagnosis 1 Hemorrhage of anus a nd rectum (K62.5) Referral Organization Family Practice [facility] Referring Provider First Name Adebayo Referring Provider Last Name Stacie Referring Provider Speciality Family Med [facility] Referred Provider Specialty General Surg estuardo General Notes Adebayo Quinones 03:15:40 PM >please call pt for appt Referral Priority Routine REASON FOR VISIT rectal bleeding Medications Medication SIG (Take, Route, Frequency, Duration) Notes Start Date End Date Status methylPREDNISolone 4 MG as directed Oral ly for 6 days 08/30/2023 Not-Taking ZyrTEC Not-Taking Omeprazole 40 MG 1 capsule 30 minutes before morning meal Orally Once a day Active PNV Active Vitamin D (Ergocalciferol) 57284 UNIT 1 capsule Orally qweekly for 30 days 06/18/2023 Active Metoprolol Tartrate 25 MG 1 tablet with food Orally Twice a day for 30 day(s) 11/14/2021 Not-Taking Meclizine HCl Not-Ta joy Social History Tobacco Use: Social History Observation Description Date Details (start date - stop date) Never Smoker NA - NA Tobacco Use/Smoking Question Answer Notes Patient 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 Problems Problem Type SNOMED Code ICD Code Onset Dates Problem Status W/U Status Risk Notes Problem 4304005 Female infertili ty, unspecified (N97.9) Active confirmed Problem 813378954 Body mass index [BMI] 36.0-36.9, adult (Z68.36) Active confirmed Problem 721881509 Obesity, unspecified (E66.9) Active confirmed Problem 929155561 Mixed hyperlipidemia (E78.2) Active confirmed Problem 17677600 Vitamin D deficiency, unspecified (E55.9) Active confirmed Vital Signs Blood pressure systolic 142 mm Hg 11/08/19 24 Blood pressure diastolic 90 mm Hg 024 Heart Rate 82 /min 11/08/2023 Respiratory Rate 16 /min 11/08/2023 Height 72 in 11/08/2023 Weight 272.2 lbs 11/08/2023 BMI 36.91 kg/m2 11/08/2023 Oximetry 98 % 11/08/2023 Encounters Encounter Location Date Provider Diagnosis [facility] [address] [place] [address] 11/08/2023 Adebayo Quinones Hemorrhage of anus a nd rectum K62.5 ; Female infertility, unspecified N97.9 ; Body mass index [BMI] 36.0-36.9, adult Z68.36 ; Obesity, unspecified E66.9 ; Prediabetes R73.03 ; Mixed hyperlipidemia E78.2 ; Vitamin D deficiency, unspecified E55.9 ; Other constipation K59.09 and Elevated blood-pressure reading, without diagnosis of hypertension R03.0 Assessments Encounter Date Diagnosis (ICD Code) Assessment Notes Treatment Notes Treatment Clinical Notes Section Notes 11/08/2023 Hemorrhage of anus and rectum (ICD-10 - K62.5) fax referral to dr miner at [facility] for eval and tx and colonoscopy prob int hem fiber monitor 11/08/2023 Female infertility, unspecified (ICD-10 - N97.9) set up pelvic US - ?PCOS f/u java web engineer as directed ?PCOS - d/w pt possible metformin trial continue PNV 11/08/2023 Body mass index [BMI] 36.0-36.9, adult (ICD-10 - Z68.36) 11/08/2023 Obesity, unspecified (ICD-10 - E66.9) diet/exercise 11/08/2023 Prediabetes (ICD-10 - R73.03) diet/exercise monitor a1c ?metformin 11/08/2023 Mixed hyperlipidemia (ICD-10 - E78.2) diet/exercise statin if worsens but will hold for now 11/08/2023 Vitamin D deficiency, unspecified (ICD-10 - E55.9) monitor lab continue vit D qweek 11/08/2023 Other constipation (ICD-10 - K59.09) fiber miralax if not better diet 11/08/2023 Elevated blood-pressure reading, without diagnosis of hypertension (ICD-10 - R03.0) diet/exercise bp check daily goal <130/80 ?labetolol if elevated due to trying to get Plan Of Treatment Treatment Notes Assessment Notes Hemorrhage of anus and rectum fax referral to dr miner at [facility] for eval and tx and colonoscopy prob int hem fiber monitor Female infertility, unspecified set up pelvic US - ?PCOS f/u java web engineer as directed ?PCOS - d/w pt possible metformin trial continue PNV Obesity, unspecified diet/exercise Prediabetes diet/exercise monitor a1c ?metformin Mixed hyperlipidemia diet/exercise statin if worsens but will hold for now Vitamin D deficiency, unspecified monitor lab continue vit D qweek Other constipation fiber miralax if not better diet Elevated blood-pressure read ing, without diagnosis of hypertension diet/exercise bp check daily goal <130/80 ?labetolol if elevated due to trying to get Pending Test Test Name Order Date US Transvaginal Pelvic 11/08/2023 Referrals Referral Date Details 11/08/2023 11/08/2023, rectal b leeding Next Appt Details Provider Name:Adebayo burr, 01/26/2025 10:00:00 AM, [address] [place], [address], Progress Notes * Andressa TRIPLETTDOB: [birth year] (32 yo F)Acc No.[id number]:11/08/2023 Established Patient: Andressa ALBERT Provider: Maria E Quinones DO :1990 A ge:32 Y S ex:Female Date:11/08/2023 Address:[address] [place], [place] [address], [id number] Check In:03:03 PM ESTCheck O ut:03:23 PM EST Subjective: * Chief Complaints: * R ectal bleeding * HPI: G eneral: Patient presents today for rectal bleeding.-MV clotted blood per rectum about 1 month ago (exam deferred today) a few smaller episodes with wiping since but no further clotting - ?due to ext hem she has no bleeding with every BM +incomplete emptying BM daily no black stools no abd pain/cramps no family history of IBD no rectal pain +rectal pressure no dysuria/hematuria --------- menses regular not on menses at time of bleeding appt with java web engineer 12/2023 trying to get for 1 year and unable --------- 05/29/23 labs reviewed - TSH normal, A1c 5.6, cmp normal, B12 289, vit D 19.6(L), TC 204, TG 294, HDL 39, LDL 107 --------- not checking BP/BS at home. * ROS: G eneral/Constitutional: Significant change in weight d enies. E xercise Intolerance d enies. N ight sweats d enies. F ever d enies. E yes: Dry eyes D enies. V ision changes d enies. ? E NMT: Sore Throat d enies. N ose Bleeds d enies. D ifficulty hearing d enies. E ar pain d enies. N ose/sinus problems d enies. S noring d enies. B leeding gums d enies. D ry mouth d enies. M outh ulcers denies. O ral abnormalities d enies. T eeth problems d enies. C ardiovascular: Shortness of Breath w/Walking d enies. S hortness of Breath w/lying flat d enies. A rm pain on exertion d enies. C hest pain d enies.?Heart murmur d enies. P alpitations d enies. R espiratory: Coughing up blood d enies. C ough d enies. S hortness of breath d enies. W heezing d enies. G astrointestinal: Change in appetite d enies. V omiting blood d enies. A bdominal pain d enies. C onstipation a dmits. D iarrhea d enies. V omiting d enies. G enitourinary: Dysuria/Increased Frequency d enies. H ematuria d enies. I ncontinence d enies. D ifficulty urinating d enies. M usculoskeletal: Swelling in the extremities d enies. A rthralgias/joint pain D enies. B ack pain d enies. W eakness of muscles d enies. M uscle aches d enies. S kin: Jaundice D enies. M ole(s) d enies. R dez d enies. N eurologic: Dizziness d enies. L oss of consciousness d enies.?Numbness d enies. W eakness d enies. H eadache d enies. S eizures d enies. P sychiatric: Alcohol abuse d enies. F eeling safe in relationship?denies. D epression d enies. A nxiety d enies. S leep Disturbances d enies. E ndocrine: Fatigue d enies. H ematologic/Lymphatic: Swollen Glands d enies. B ruising d enies. ? A llergy/Immunology: Runny nose d enies. S inus pressure d enies. F requent sneezing d enies. H christine d enies. I tching d enies. * Active Problem List G47.00 Insomnia, unspecifie d type Modified On:11/29/2021U Status:confirmed K21.9 Gastroesophageal ref lux disease without esophagitis Modified On:05/29/2023U Status:confirmed F51.4 Night terrors Modified On:12/06/2021/U Status:confirmed F51.3 Sleep walking Modified On:12/06/2021 Status:confirmed G47.33 CAROLA (obstructive sle ep apnea) Modified On:05/29/2023 Status:confirmed E66.01 Morbid (severe) obes ity due to excess calories Modified On:05/29/2023 Status:confirmed Z68.38 Body mass index [BMI ] 38.0-38.9, adult Modified On:05/29/2023 Status:confirmed N97.9 Female infertility, unspecified Modified On:11/08/2023 Status:confirmed Z68.36 Body mass index [BMI ] 36.0-36.9, adult Modified On:11/09/2023 Status:confirmed E66.9 Obesity, unspecified Modified On:11/09/2023 Status:confirmed E78.2 Mixed hyperlipidemia Modified On:11/09/2023 Status:confirmed E55.9 Vitamin D deficiency , unspecified Modified On:11/09/2023 Status:confirmed * Medical History: * Surgical History: N o Surgical History documented. * Hospitalization/Major Diagno stic Procedure: N o Hospitalization History. * Family History: F ather: alive, cva, diagnosed with Diabetes mellitus without mention of complication, type II or unspecified type, not stated as uncontrolled. M other: alive, a fib, diagnosed with Unspecified heart disease. * Social History: T obacco Use: T obacco Use/Smoking P atient is a n onsmoker H ousehold: H ousehold M arital status: m arried N P. * Medications: T akingOmeprazole 40 MG Capsule Delayed Release 1 capsule 30 minutes before morning meal Orally Once a day PNV Vitamin D (Ergocalciferol) 30580 UNIT Capsule 1 capsule Orally qweekly Taking Omeprazole 40 MG Capsule Delayed Release 1 capsule 30 minutes before morning meal Orally Once a day Taking PNV Taking Vitamin D (Ergocalciferol) 65951 UNIT Capsule 1 capsule Orally qweekly Not-Taking/PRNMeclizine HCl methylPREDNISolone 4 MG Tablet Therapy Pack as directed Orally Metoprolol Tartrate 25 MG Tablet 1 tablet with food Orally Twice a day ZyrTE Medication List reviewed and reconciled with the patientNot-Taking/PRN Meclizine HCl Not-Taking/PRN methylPREDNISolone 4 MG Tablet Therapy Pack as directed Orally Not-Taking/PRN Metoprolol Tartrate 25 MG Tablet 1 tablet with food Orally Twice a day Not- Taking/PRN ZyrTEC Medication List reviewed and reconciled with the patient * Allergies: R loydaweedrody[Allergies Verified] Objective: * Vitals: W t:272.2lbs, Ht: 72 in, BP:142/90mm Hg, HR:82/min, RR:16/min, BMI:36.91Index, Oxygen sat %:98%, Ht-cm: 182.88 cm, Wt-k.47 kg. * Examination: G eneral Examination: GENERAL APPEARANCE: h ealthy Appearing , well nourished , well developed Level of distress: NAD, a mbulating normally, obese. ENMT: E ACs clear, TMs clear, no hearing loss, no lesions on external ears, nares patent, nasal passages clear, no sinus tenderness, no nasal discharge, no mouth or lip ulcers, no bleeding gums, moist mucous membranes, no erythema, no exudates. HEAD: n ormocephalic, atraumatic. EYES: n on-injected, no discharge, no pallor, PERRLA , EOMI, s clera non-icteric, peripheral vision grossly intact, acuity grossly intact. LUNGS: n o dyspnea, breath sounds normal , good air movement, CTA except as noted, no wheezing, no rales/crackles, no rhonchi. CARDIO: n ot displaced, RRR, S1, S2 normal , no murmurs, rubs, gallops , no carotid bruits, normal throughout. ABDOMEN: n ormal bowel sounds , soft, non tender, not distended, no guarding, no rebound tenderness, no masses, no CVA tenderness, liver non tender, no hepatomegaly. BACK: n ormal curvature. MUSCULOSKELETAL n ormal motor strength, normal tone, normal movement of all extremities, no bony abnormalities, no contractures, no malalignment, no tenderness, no cyanosis. SKIN: n o rash, no lesions, no ulcer, no abnormal nevi, no induration, no nodules, good turgor, no jaundice. EXTREMITIES: No edema. NEUROLOGIC: n ormal gait, normal station, cranial nerves grossly intact, sensation grossly intact, DTRs 2+ bilaterally throughout, no tremor. PSYCH: j udgement and insight good, active and alert, normal mood, normal affect. NECK/THYROID: N gary supple, trachea midline, no masses, FROM, no cervical LAD, no enlargement, non-tender, no nodules. Assessment: * Assessment: 1. H emorrhage of anus and rectum - K62.5 (Primary) 2 . F emale infertility, unspecified - N97.9 3 . B mavis mass index [BMI] 36.0-36.9, adult - Z68.36 4 . O besity, unspecified - E66.9 5 . P rediabetes - R73.03 6 . M ixed hyperlipidemia - E78.2 7 . Vitamin D deficiency, unspecified - E55.9 8 . O ther constipation - K59.09 9 . E levated blood-pressure reading, without diagnosis of hypertension - R03.0 Plan: * Treatment: 2. F emale infertility, unspecified I maging: US Transvaginal Pelvic Notes: set up pelvic US - ?PCOS f/u java web engineer as directed ?PCOS - d/w pt possible metformin trial continue PNV??3.?Obesity, unspecified? Notes: diet/exercise ??4.?Prediabetes? Notes: diet/exercise monitor a1c ?metformin ??5.?Mixed hyperlipidemia? Notes: diet/exercise statin if worsens but will hold for now ??6.?Vitamin D deficiency, unspecified? Notes: monitor lab continue vit D qweek ??7.?Other constipation? Notes: fiber miralax if not better diet ??8.?Elevated blood-pressure reading, without diagnosis of hypertension? Notes: diet/exercise bp check daily goal <130/80 ?labetolol if elevated due to trying to get ?? * Procedure Codes: * * Sign off status: Completed Visit Status: Jed HK (Check Out) true * Provider: Maria E Quinones, DO Date: 0 11/08/2023 Generated for Tiffanie burr/Gaby/eTnaomismitting on: 0 11/27/2024 07:03 PM EDT History and Physical Notes * Examination Category Sub-Category Detail Notes Category Not es General Examination GENERAL APPEARANCE: healthy Appearing , well nourished , well developed Level of distress: NAD, ambulating normally, obese EYES: non-injected, no dis charge, no pallor, PERRLA , EOMI, sclera non-icteric, peripheral vision grossly intact, acuity grossly intact CARDIO: not displaced, RRR, S1, S2 normal , no murmurs, rubs, gallops , no carotid bruits, normal throughout LUNGS: no dyspnea, breath s ounds normal , good air movement, CTA except as noted, no wheezing, no rales/crackles, no rhonchi ABDOMEN: normal bowel sounds , soft, non tender, not distended, no guarding, no rebound tenderness, no masses, no CVA tenderness, liver non tender, no hepatomegaly NEUROLOGIC: normal gait, normal station, cranial nerves grossly intact, sensation grossly intact, DTRs 2+ bilaterally throughout, no tremor SKIN: no rash, no lesions, no ulcer, no abnormal nevi, no induration, no nodules, good turgor, no jaundice EXTREMITIES: No edema BACK: normal curvature MUSCULOSKELETAL: normal motor strengt h, normal tone, normal movement of all extremities, no bony abnormalities, no contractures, no malalignment, no tenderness, no cyanosis PSYCH: judgement and insigh t good, active and alert, normal mood, normal affect ENMT: EACs clear, TMs royer r, no hearing loss, no lesions on external ears, nares patent, nasal passages clear, no sinus tenderness, no nasal discharge, no mouth or lip ulcers, no bleeding gums, moist mucous membranes, no erythema, no exudates HEAD: normocephalic, atrau matic NECK/THYROID: Neck supple, trachea midline, no masses, FROM, no cervical LAD, no enlargement, non-tender, no nodules Consultation Request Notes Referral Date Referring Provider Referred Provider Not es 11/08/2023 Adebayo Quinones , rectal bleed ing
--- OUTSIDE RECORDS SUMMARY | 2023-11-26 11:38 | XMS_ITS ---
Author Organization [facility] in [place] Address [address] [place] [address] Care Team Providers Care Laboratory Clerk Name Role Phone Adebayo Quinones Primary Care Provider Results Component Value Reference Range Notes US Transabdominal & Transvag inal (Not yet reviewed by provider) Interpretation: Performing Lab: Notes/Report: REASON FOR VISIT need order changed Encounters Encounter Location Date Provider Diagnosis [facility] [address] [place] [address] 11/26/2023 Adebayo Quinones Female infertility, unspecified N97.9 Assessments Encounter Date Diagnosis (ICD Code) Assessment Notes Treatment Notes Treatment Clinical Notes Section Notes 11/26/2023 Female infertility, unspecified (ICD-10 - N97.9) Plan Of Treatment Pending Test Test Name Order Date US Transabdominal & Transvaginal 024 Next Appt Details Provider Name:Adebayo burr, 01/26/2025 10:00:00 AM, [address] [place], [address], Progress Notes * Andressa TRIPLETTDOB: [birth year] (32 yo F)Acc No.[id number]:11/26/2023 Patient: Andressa ALBERT :1990 A ge:32 Y S ex:Female Address:[address] [place] [address], [address] Subjective: * Chief Complaints: * N eed order changed * Medical History: * Surgical History: * Hospitalization/Major Diagno stic Procedure: * Medications: Objective: * Vitals: * Physical Examination: Assessment: * Assessment: 1. F emale infertility, unspecified - N97.9 (Primary) Plan: * Treatment: * Procedure Codes: * true * Date: Generated for Tiffanie burr/Gaby/Aydensmmario on: 0 11/27/2024 07:03 PM EDT
--- OUTSIDE RECORDS SUMMARY | 2024-11-11 10:09 | XMS_ITS ---
Author Organization The [facility] in [place] Address [address] [place] [address] Care Team Providers Care Club Room Attendant Name Role Phone Adebayo Quinones Primary Care Provider [phone] REASON FOR VISIT needs wellness Encounters Encounter Location Date Provider Diagnosis [facility] [address] [place] [address] 11/11/2024 Adebayo Quinones Plan Of Treatment Next Appt Details Provider Name:Adebayo burr, 01/26/2025 10:00:00 AM, [address] [place], [address], Progress Notes * Andressa TRIPLETTDOB: [birth year] (33 yo F)Acc No.[id number]:11/11/2024 Patient: Stephanie Andressa MORRISSEY :1990 A ge:33 Y S ex:Female Address:[address] [place] [address], [phone] * true * Date: Generated for Printi ng/Faxing/eTransmitting on: 0 11/27/2024 07:05 PM EDT
--- OUTSIDE RECORDS SUMMARY | 2024-11-18 08:50 | XMS_ITS | Encounter Summary ---
Author Organization [facility] Address [address] [place] [address] Care Team Providers Care Quantity Surveyor Name Role Phone Adebayo Quinones MD Primary Care Provider + [phone] Reason for Visit * Reason Comments Routine Visit Encounter Details Date Type Department Care Team (Late st Contact Info) Description 11/18/2024 8:50 AM EDT Routine [facility] [address] [place] [address] Miguel Hannon DO [address] [place] [address] Third trimester ([facility]); 31 weeks gestation of ([facility]); Gestational diabetes mellitus (GDM), antepartum, gestational diabetes method of control unspecified ([facility]) Social History Tobacco Use Types Packs/Day Years [...] mg, Daily RT Blood Glucose Monitoring Suppl ([employer] Glucometer) w/Device kit 1 kit, Does not [...] nursing note reviewed. Exam conducted with a sql report analyst present. Vitals: Estimated body mass index is 38.52 kg/m?? as calculated from the following: Height as of 01/16/24: 6'. Weight as of this encounter: 284 lb. BP: 112/70 Patient's last menstrual period was 04/12/2024. ASSESSMENT & PLAN ICD-10-CM 1. Third trimester ([facility]) Z34.93 Urine dip 2. 31 weeks gestation of ([facility]) Z3A.31 Urine dip 3. Gestational diabetes mellitus (GDM), antepartum, gestational diabetes method of control unspecified ([facility]) O24.419 Return OB: Patient presents today for a routine obstetrics appointment. Patient is currently 31w3d . Patient states she is doing well but has complaints of being tired due to current . Patient has verbalizes frequent movement. labor precautions was discussed/given and patient was instructed to perform kick counts three times a day. Pt being sent to [facility] to complete anatomy scan. RVOT and LVOT [...] AM EDT Routine [facility] [address] [place] [address] Miguel Hannon DO [address] [place] [address] Scheduled Orders Name Type Priority Associated Diagnoses Orde r Schedule US biophysical profile w non stress test Imaging Routine Gestational diabetes mellitus (GDM), antepartum, gestational diabetes method of control unspecified ([facility]) Expected: 11/18/2024 (Approximate), Expires: 05/21/2025 documented as of this encounter Procedures Procedure Name Priority Date/Time Associated Diagnosis Comments POCT URINALYSIS DIPSTICK Routine 11/18/2024 10:23 AM EDT Third trimester ([facility]) 31 weeks gestation of ([facility]) documented in this encounter Results * Urine [...] this encounter Visit Diagnoses Diagnosis Third trimester ([facility]) state, incidental 31 weeks gestation of ([facility]) Gestational diabetes mellitus (GDM), antepartum, gestational diabetes method of control unspecified ([facility]) documented in this encounter Care Teams Quantity Surveyor Relationship Specialty Start Date End Date Adebayo Quinones MD [address] [place] [address] [phone] PCP - General Family Medicine 11/19/23 documented as of this encounter
--- OUTSIDE RECORDS SUMMARY | 2024-11-20 10:30 | XMS_ITS | Encounter Summary ---
Author Organization [facility] tem Address [id number] [address] [place] [address] Care Team Providers Care Kitchen And Counter Worker Name Role Phone Unavailable Primary Care Provider Unavailabl e Reason for Visit * Reason Comments Gestational Diabetes * Consultation (Routine) - Pending Review Specialty Diagnoses / Procedures Referred By Contac t Referred To Contact Maternal and Medicine Diagnoses Gestational diabetes mellitus (GDM) in second trimester, gestational diabetes method of control unspecified Miguel Hannon, DO [address] [place] [address] [place] [address] Phone: tel: fax: Maternal- Medicine at [facility] [address] [place] [address] Phone: tel: fax: Referral ID Status Reason Start Date Expiration Date Visits Requested Visits Authorized [id number] Pending Review Specialty Services Required 11/11/2024 11/11/2025 1 1 Encounter Details Date Type Department Care Team (Late st Contact Info) Description 11/20/2024 10:30 AM EDT Telemedicine Maternal- Medicine at [facility] [address] [place] [address] Miroslava Trinidad RN [address] [address] Juli Quezada, ENE Mayo, [place]om[place], ENE [address] [place] [address] Gestational diabetes mellitus (GDM) in second trimester, [...] care for you: OB Provider Family Doctor Glazier Metal Furniture Name: Dr. Alvin Hannon Name: Dr. Karena [...] first Is there anything about your culture, hoahaoism, or personal beliefs weneed to know about to care for you: Other Tracking Primary Language spoken: Mosotho [22] Primary Language for learning: Mosotho Are you currently in a relationship where you are physically hurt, threatened or made to fee afraid? [] Yes [] No Medical Review Specialist needed? [] Yes [] No Marital status/Living [...] Interpersonal Safety: Unknown (06/07/2023) Received from [facility] [place] Safety & Environment Fear of Current [...] If yes, where: On thge following scale, elim ira the number, which describes your current level [...] weekly Educational Level Masters Family issues stable Cultural/ethnic/congregation influences demies Exercise approved by MD? Yes Current Exercise program walking 5 miles Who prepares the meal Self Who purchase food at your home? Self and S.O Equipment use for cooking/food storage Has everything Food Assistance(Ex.WIC, Food [place]) Declined Dining out Yes Twice a week Appetite/Appetite changes Flucuates, better lately Weight History Stable Do you have cats at home? Infant Feeding Plans Breast Feeding If you have cats, who cleans the litter box? Cravings/Aversions/Pica Only food aversions to meat Nutrition Assessment Worksheet: Week/Weekend Food Recall Breakfast Mosotho muffin with cream cheese or yogurt, water [...] Care Team (Late st Contact Info) Description 11/28/2024 11:30 AM EDT Office Visit Maternal- Medicine at [facility] [address] [place] [address] Priscila Granados MD [address] [facility] [address] [place] [address] 12/11/2024 1:00 PM EDT Appointment Maternal Medicine [facility] [address] [facility] [address] [place] [id number] documented as of this encounter Visit Diagnoses Diagnosis Gestational diabetes mellitus (GDM) in second trimester, gestational diabetes method of control unspecified documented in this encounter
--- NOTE | 2024-11-27 19:03 | US_ITS ---
[id number] Patient Name: JAVID TRIPLETT MRN: [id number] date: 1990 Sex: F Assigned Patient Location: [facility] Current Patient Location: Accession/Order Number: [id number] Exam Date: 11/27/2024 23:39 Report Date: 11/27/2024 23:40 At the request of: KENN MCHUGH DO Procedure: US OB BPP w non-stress Ultrasound biophysical profile HISTORY: Gestational diabetes Adequate breathing movement, gross body movement, tone and amniotic fluid volume for total score of 8 out of 8. The amniotic fluid index is 14.4cm within normal limits. The heart rate 145 bpm. Possible nuchal cord US/US OB BPP w non-stress IMPRESSION: Adequate ultrasound biophysical profile Impression dictated by: Sergo Deutsch M.D. 11/27/2024 11:40 PM Dictation Location: [facility] Electronically authenticated by: [id number] Y Date: 11/27/2024 23:40
--- OUTSIDE RECORDS SUMMARY | 2024-11-27 19:03 | XMS_ITS | Encounter Summary ---
Author Organization [facility] [employer] tem Address [id number] [address] [place] [address] Care Team Providers Care Seed Core Operator Name Role Phone Unavailable Primary Care Provider Unavailabl e Encounter Details Date Type Department Care Team (Late st Contact Info) Description 11/24/2024 Orders Only Maternal- Medicine at [facility] [address] [facility] [place] [place] [phone] Ref Prov, [place] [address] Social History Tobacco Use Types Packs/Day Years [...] AM EDT Office Visit Maternal- Medicine at [facility] [address] [place] [phone] Priscila Granados MD [address] [place], [place] [phone] 12/11/2024 1:00 PM EDT Appointment Maternal Medicine [place] [id number] [address] documented as of this encounter Visit Diagnoses Not on filedocumented in this encounter
--- OUTSIDE RECORDS SUMMARY | 2024-11-27 19:03 | XMS_ITS | Encounter Summary ---
Author Organization [facility] Address [address] [facility] [place] [address] Care Team Providers Care Denture Technician Name Role Phone Adebayo Quinones MD Primary Care Provider + [phone] Encounter Details Date Type Department Care Team (Late Contact Info) Description 04/04/2024 Abstract [facility] [address] [place] [address] Miguel Hnanon DO [facility] [address] [place], [place] [address] Social History Tobacco Use Types Packs/Day Years [...] AM EDT Routine [facility] [address] [place] [address] Miguel Hannon DO [facility] [place] [id number] documented as of this encounter Visit Diagnoses Not on filedocumented in this encounter Care Teams Denture Technician Relationship Specialty Start Date End Date Adebayo Quinones MD [facility] [place] [address] PCP - General Family Medicine 11/19/23 documented as of this encounter
--- OUTSIDE RECORDS SUMMARY | 2024-11-27 19:03 | XMS_ITS | Encounter Summary ---
Author Organization [facility] Address [facility][id number] [address] [place] [address] Care Team Providers Care Awning Spreader Name Role Phone Unavailable Primary Care Provider Unavailabl e Encounter Details Date Type Department Care Team (Late st Contact Info) Description 11/24/2024 Abstract Maternal- Medicine at [facility] [address] [place] [phone] External, Scanning Provider Social History Tobacco Use Types Packs/Day Years [...] AM EDT Office Visit Maternal- Medicine at [facility] [address] [place] [phone] Priscila Granados MD [address] [facility] 1st [place] [address] 12/11/2024 1:00 PM EDT Appointment Maternal Medicine [place] [address] [address] documented as of this encounter Visit Diagnoses Not on filedocumented in this encounter
--- OUTSIDE RECORDS SUMMARY | 2024-11-27 19:03 | XMS_ITS | Encounter Summary ---
Author Organization [facility] [employer] [facility] tem Address [facility]-[id number] [address] [place] [address] Care Team Providers Care Women'S Soccer Coach Name Role Phone Unavailable Primary Care Provider Unavailabl e Encounter Details Date Type Department Care Team (Late st Contact Info) Description 11/25/2024 Telephone Maternal- Medicine at [facility] [address] [place] [address] Naomie Huber, ENE [address] [place] [address] Social History Tobacco Use Types Packs/Day Years [...] encounter Miscellaneous Notes * Telephone Encounter - ENE Byers - 11/25/2024 10:41 AM EDT Called regarding food logs but received voicemail. Left a message to let us know if she is using a Dexcom and if she entered our clinic code. Her food logs show that she is keeping to her carbohydrate targets and is having a protein source with her meals/snacks. Encouraged to have more non starchy vegetables to increase the fiber content of her meals. Asked that she call back at [phone] and let us know if she is having any consistent elevated blood sugars. documented in this encounter Plan of Treatment Upcoming Encounters Date Type Department Care Team (Late st Contact Info) Description 11/28/2024 11:30 AM EDT Office Visit Maternal- Medicine at [facility] [address] [place] [address] Priscila Granados MD [address] [facility] 1st [place] [address] 12/11/2024 1:00 PM EDT Appointment Maternal Medicine [place] [address] [facility] [address] [place] [phone] documented as of this encounter Visit Diagnoses Not on filedocumented in this encounter
--- OUTSIDE RECORDS SUMMARY | 2024-11-27 19:03 | XMS_ITS | Encounter Summary ---
Author Organization [facility] [employer] [facility] tem Address [facility]-[id number] [address] [place] [address] Care Team Providers Care Building Services Supervisor Name Role Phone Unavailable Primary Care Provider Unavailabl e Encounter Details Date Type Department Care Team (Late st Contact Info) Description 11/26/2024 Telephone Maternal- Medicine at [facility] [address] [facility] [place] [address] Yojana Diehl, HALEY Social History Tobacco Use Types Packs/Day Years [...] encounter Miscellaneous Notes * Telephone Encounter - Yojana Diehl RN - 11/26/2024 2:49 PM EDT Called pt to let her know that Hanny Ware reviewed her dexcom and would like her to start marking her fasting time and number. If she does know what her fasting numbers are and if they are consistently over 95 then she needs an appt to start medication. She can call and make that appt at [phone] option #3. It looks as though her fastings are running above target but would like to see what the actual numbers are running. documented in this encounter Plan of Treatment Upcoming Encounters Date Type Department Care Team (Late st Contact Info) Description 11/28/2024 11:30 AM EDT Office Visit Maternal- Medicine at [facility] [address] [place] [phone] Priscila Granados MD [address] [facility] 1st [place] [address] 12/11/2024 1:00 PM EDT Appointment Maternal Medicine [place] [address] [facility] [address] [place] [address] documented as of this encounter Visit Diagnoses Not on filedocumented in this encounter
--- OUTSIDE RECORDS SUMMARY | 2024-11-27 19:04 | XMS_ITS | Clinical Summary ---
Author Organization [facility] Address [address] [address] Care Team Providers Care Textiles And Clothing Teacher Name Role Phone Adebayo Quinones DO Primary Care Provider [phone] Allergies No known active allergies Medications omeprazole [...] Description 10/22/2024 1:50 AM EDT Ancillary Procedure [facility] [address] [place] [address] Awareness of heartbeats 10/22/2024 Orders Only [facility] [address] [facility] [place] [address] Janell Felton MD 10/21/2024 10:00 AM EDT Office Visit [facility] Heart at [facility] [address] [place] [address] Yoseph Mcintosh MD Palpitations (Primary [...] this topic Medical Devices Implanted Type Area Tong Hooker Device Identifier Shelf Expiration Date Model / Serial / Lot Monitor,Cardi ac,Lux,Dxii+I cm - [id number] - [id number] Implanted:Qty : 1 on 06/18/2023 by Yoseph Mcintosh MD at [facility] Implantable Loop Recorder Left: Chest [facility] 11/26/2024 [id number] / [id number] / Procedures Procedure Name Priority Date/Time Associated [...] Rajat Colbert MD CV IMPLANTABLE CARDIAC DEVICE MD OCEDURES Final Result CPACS * Cardiac device check - Remote loop recorder (ILR) (10/22/2024 12:00 AM EDT) Anatomical Region Laterality Modality Other 10/22/2024 us Janell Felton MD CV IMPLANTABLE CARDIAC DEVICE PROCEDURES Final Result from Last 3 Months Insurance [facility] Member Subscriber Plan / Payer (Ef fective 2024-Present) Name:Andressa Triplett Relation to Subscriber:Unknown Name:FABY TRIPLETT Date of :1989 (Home) Address: [address] [place] [id number] Payer ID:[id number] (NAIC) Type:Not on file Address: [facility] [id number] Care Teams Textiles And Clothing Teacher Relationship Specialty Start Date End Date Adebayo Quinones DO [address] [place] [address] PCP - General 11/14/22
--- OUTSIDE RECORDS SUMMARY | 2024-11-27 19:04 | XMS_ITS | Encounter Summary ---
Author Organization [facility] Address [address] [facility], [address] [place] [address] Care Team Providers Care Medical Videographer Name Role Phone Unavailable Primary Care Provider Unavailabl e Reason for Referral * Other (Routine) - Closed Specialty Diagnoses / Procedures Referred By Contac t Referred To Contact Cardiology Diagnoses Palpitations Syncope and collapse Procedures Tilt Table Test Clarence Wolf APRN - CNP Phone: tel: fax: Referral ID Status Reason Start Date Expiration Date Visits Re quested Visits Authorized [id number] Closed 11/16/2022 11/16/2023 1 1 Encounter Details Date Type Department Care Team (Latest Contact Info) Description 11/16/2022 Transcribe Orders [facility] [address] [place] [address] Clarence Wolf APRN - CNP [address] [place] [address] Palpitations (Primary Dx); Syncope and collapse Social [...]
--- OUTSIDE RECORDS SUMMARY | 2024-11-27 19:04 | XMS_ITS | Encounter Summary ---
Author Organization [facility] Address [address] [facility] [place] [address] Care Team Providers Care Civil Engineering Intern Name Role Phone Adebayo Quinones MD Primary Care Provider + [phone] Encounter Details Date Type Department Care Team (Late Contact Info) Description 11/10/2024 Abstract [facility] [place] [address] Miguel Hannon DO [facility] [address] [place], [facility]11 Social History Tobacco Use Types Packs/Day Years [...] 12/02/2024 8:40 AM EDT Routine [facility] [place] [address] Miguel Hannon DO [address], [facility]11 documented as of this encounter Visit Diagnoses Not on filedocumented in this encounter Care Teams Civil Engineering Intern Relationship Specialty Start Date End Date Adebayo Quinones MD [address] [place] [address] PCP - General Family Medicine 11/19/23 documented as of this encounter
--- OUTSIDE RECORDS SUMMARY | 2024-11-27 19:04 | XMS_ITS | Encounter Summary ---
Author Organization [facility] Address [address] [facility] [place] [address] Care Team Providers Care Tying In Machine Operator Name Role Phone Adebayo Quinones MD Primary Care Provider + [phone] Encounter Details Date Type Department Care Team (Late Contact Info) Description 12/25/2023 Abstract [facility] HERNAN[facility] [address] [place] [address] Miguel Hannon DO [facility] [place] [place], [place] [address] Social History Tobacco Use Types Packs/Day Years [...] EDT Routine [facility] [address] [facility] [place] [address] Miguel Hannon DO [facility] [place] [id number] documented as of this encounter Visit Diagnoses Not on filedocumented in this encounter Care Teams Tying In Machine Operator Relationship Specialty Start Date End Date Adebayo Quinones MD [facility] [place] [address] PCP - General Family Medicine 11/19/23 documented as of this encounter
--- OUTSIDE RECORDS SUMMARY | 2024-11-27 19:04 | XMS_ITS | Encounter Summary ---
Author Organization [email or web address] tem Address [facility] [id number] [address] [place] [address] Care Team Providers Care Interactive Designer Name Role Phone Unavailable Primary Care Provider Unavailabl e Encounter Details Date Type Department Care Team (Late st Contact Info) Description 11/26/2024 Documentation Maternal- Medicine at [facility] [address] [place] [address] Yojana Diehl, HALEY Social History [...] as of this encounter Progress Notes * Yojana Diehl RN - 11/26/2024 5:56 PM EDT Pt called back and stated that her fastings were in the 125to 140 range. She was given the number to call for a medication start appt. We also discussed metformin verses insulin and criteria for starting medication 20% of her blood sugar and or half of her fastings. She will call in the morning andsched. documented in this encounter Plan of Treatment Upcoming Encounters Date Type Department Care Team (Late st Contact Info) Description 11/28/2024 11:30 AM EDT Office Visit Maternal- Medicine at [facility] [address] [place] [address] Priscila Granados MD [address] [facility] 1[address] [place] [address] 12/11/2024 1:00 PM EDT Appointment Maternal Medicine [place] [address] [facility] [address] [place] [address] documented as of this encounter Visit Diagnoses Not on filedocumented in this encounter
--- OUTSIDE RECORDS SUMMARY | 2024-11-27 19:04 | XMS_ITS | Patient Health Record ---
Author Organization [facility] [place] Address [address] [place] [address] Care Team Providers Care Automat Watcher Name Role Phone Adebayo Qiunones Primary Care Provider [phone] Allergies Allergen (clinical drug ingredient) Drug/Non Drug Allergy documented on EMR Reaction Allergy Type Onset Date Status Ragweed Unknown Allergy Active Reason For Referral No Information Medications Medication [...] day Active PNV Active Vitamin D (Ergocalciferol) 80522 UNIT 1 capsule Orally qweekly for 30 days 06/18/2023 Active Meclizine HCl Not-Ta joy Immunizations Vaccine Route Administration Date Status Comme nts Flu, Fluzone (09169) 6 mos+, single-dose syringe/vial (4102-3915) Unknown 02/12/2023 Administered Social History Tobacco Use: Social History Observation Description Date Details (start date - stop date) Never Smoker NA - NA Tobacco Use/Smoking Question Answer Notes Patient 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 Alcohol Screen (Audit-C) Question Answer Notes Did you have a drink containing alcohol in the p ast year? No Points 0 Interpretation Negative Section Notes: YARN WRAPPER YARN WRAPPER YARN WRAPPER YARN WRAPPER Problems Problem Type SNOMED Code ICD Code Onset Dates Problem Status W/U Status Risk Notes Problem 65882714 Vitamin D deficiency, unspecified (E55.9) Active confirmed Problem 42443739816599 Morbid (severe) obesity due to excess calories (E66.01) Active confirmed Problem 082552564 Obesity, unspecified (E66.9) Active confirmed Problem 855921609 Mixed hyperlipidemia (E78.2) Active confirmed Problem 6912849 Female infertili ty, unspecified (N97.9) Active confirmed Problem 41987430 CAROLA (obstructive sleep apnea) (G47.33) Active confirmed Problem 456458326 Gastroesophageal reflux disease without esophagitis (K21.9) Active confirmed Problem 55871342 Sleep walking (F51.3) Active confirmed Problem 563452708 Insomnia, unspecified type (G47.00) Active confirmed Problem 73478639 Night terrors (F51.4) Active confirmed Problem 130344617 Body mass index [BMI] 36.0-36.9, adult (Z68.36) Active confirmed Problem 101049651 Body mass index [BMI] 38.0-38.9, adult (Z68.38) Active confirmed Encounters Encounter Location Date Provider Diagnosis [facility] [address] [place] [address] 11/11/2024 Adebayo Quinones Plan Of Treatment Pending Test Test Name Order Date CMP (COMPLETE METABOLIC PANEL) HEMOGLOBIN A1C (GLYCO) 05/28/2023 LIPID PANEL (CHOL/TRIG/HDL/LDL) [...] ) 05/28/2023 Next Appt Details Provider Name:Adebayo burr, 01/26/2025 10:00:00 AM, [address] [place], [address], Insurance Providers Payer Name Payer Address Payer Phone Subscriber Number Group Number Insured Name Patient Relationship to Insured Coverage Start Date Coverage End Date [employer]M ACCESS PPO PLUS LOCAL PLAN [address] [place] [address] [id number] Andressa Prasad Self - patient is the insured 4 Medical (General) History Medical History History ICD Code prediabetes B12 deficiency hyperlipidemia gerd carola
--- OUTSIDE RECORDS SUMMARY | 2024-11-27 19:04 | XMS_ITS | Clinical Summary ---
Author Organization [facility] Address [address] [facility], [address] [place] [address] Care Team Providers Care Backpackers Manager Name Role Phone Unavailable Primary Care Provider [...] 2023 Flu vaccine (#1) 11/14/2024 HPV vaccine (No Doses Required) Completed Hepatitis A vaccine Aged Out No longe [...]
--- OUTSIDE RECORDS SUMMARY | 2024-11-27 19:04 | XMS_ITS | Encounter Summary ---
Author Organization [facility] Address [address] [place] [address] Care Team Providers Care Eyeglass Frame Truer Name Role Phone Adebayo Quinones DO Primary Care Provider [phone] Encounter Details Date Type Department Care Team (Late st Contact Info) Description 10/22/2024 Orders Only [facility] Cardiology Clinic [address] [place] [address] Janell Felton MD [address] [place] [address] Social History Tobacco Use Types [...] on filedocumented in this encounter Care Teams Eyeglass Frame Truer Relationship Specialty Start Date End Date Adebayo Quinones DO [address] [place] [address] PCP - General 11/14/22 documented as of this encounter
--- OUTSIDE RECORDS SUMMARY | 2024-11-27 19:04 | XMS_ITS | Encounter Summary ---
Author Organization [facility] Address [address] [facility] [place] [address] Care Team Providers Care Rock Crushing Machine Operator Name Role Phone Adebayo Solares MD Primary Care Provider [phone] Encounter Details Date Type Department Care Team (Late st Contact Info) Description 11/14/2024 Clinisync Result Encounter [facility] External Department Unsolicited Kenn Hannon DO [address] [place], [facility] Social History Tobacco Use Types Packs/Day [...] Routine [facility] [address] [place] [id number] Kenn Hannon DO [address] [place] [address] documented as of this encounter Procedures Procedure Name Priority Date/Time Associated Diagnosis Comments US OB INCOMPLETE ANATOMY 11/14/2024 10:06 AM EDT documented in this encounter Results * US OB INCOMPLETE ANATOMY (11/14/2024 10:06 AM EDT) Anatomical Region Laterality Modality Other 11/14/2024 10:0 6 AM EDT Narrative 11/14/2024 10:09 [place] [address] Ultrasound Report Signed Patient: JAVID TRIPLETT MR#: [id number] : 1990 Acct:[id number] Age/Sex: 33 / F ADM Date: 11/13/24 Loc: US Attending Dr: Kenn Hannon D.O. Ordering Physician: Kenn Hannon D.O. Date of Service: 11/13/24 Procedure(s): US OB incomplete anatomy Accession Number(s): [id number] cc: Kenn Hannon D.O.; ADEBAYO SOLARES D.O. [place] [address] Patient Name: JAVID TRIPLETT MRN: [id number] date: 1990 Sex: F Assigned Patient Location: US Current Patient Location: Accession/Order Number: [id number] Exam Date: 11/14/2024 09:56 Report Date: 11/14/2024 [...] Jr., D.O. 11/14/2024 10:06 AM Dictation Location: [place] [address] Electronically authenticated by: [id number] Y Date: 11/14/2024 10:06 Dictated By: Mark Anthony Conner M.D. Signed By: 11/14/24 1009 DD/ 1006 TD/TT: Contractor General Engineering: Procedure Note Radiology, Radiologist, MD - 11/14/2024 [place] [address] Ultrasound Report Signed Patient: JAVID TRIPLETT DMR#: [id number] : 1990Acct:[id number] Age/Sex: 33 / FADM Date: 11/13/24 Loc: US Attending Dr: Kenn Hannon D.O. Ordering Physician: Kenn Hannon D.O. Date of Service: 11/13/24 Procedure(s): US OB incomplete anatomy Accession Number(s): [id number] cc: Kenn Hannon D.O.; ADEBAYO SOLARES D.O. The [place] [id number] Patient Name: JAVID TRIPLETT MRN: [id number] date: 1990 Sex: F Assigned Patient Location: US Current Patient Location: Accession/Order Number: [id number] Exam Date: 11/14/2024 09:56 Report Date: 11/14/2024 [...] Jr., D.O. 11/14/2024 10:06 AM Dictation Location: [place] [address] Electronically authenticated by: [id number] Y Date: 0:06 Dictated By: Mark Anthony Conner M.D. Signed By:11/14/24 1009 DD/ 1006 TD/TT: Contractor General Engineering: us Kenn Riddhi DO [facility] Final Result documented in this encounter Visit Diagnoses Not on filedocumented in this encounter Care Teams Rock Crushing Machine Operator Relationship Specialty Start Date End Date Adebayo Solares MD [facility] [place] [address] PCP - General Family Medicine 11/19/23 documented as of this encounter
--- OUTSIDE RECORDS SUMMARY | 2024-11-27 19:04 | XMS_ITS | Encounter Summary ---
Author Organization [facility] Address [address] [place] [place] [address] Care Team Providers Care Powder Worker Name Role Phone Adebayo Quinones DO Primary Care Provider Encounter Details Date Type Department Care Team (Late st Contact Info) Description 08/21/2024 Orders Only [facility] Cardiology Clinic [address] [place] [address] Janell Felton MD [address] [place] [address] Social History Tobacco Use Types [...] on filedocumented in this encounter Care Teams Powder Worker Relationship Specialty Start Date End Date Adebayo Quinones DO [address] [place] [address] PCP - General 11/14/22 documented as of this encounter
--- OUTSIDE RECORDS SUMMARY | 2024-11-27 19:04 | XMS_ITS | Encounter Summary ---
Author Organization [facility] Address [address] [facility] [place] [address] Care Team Providers Care Overhead Cleaner Name Role Phone Adebayo Quinones MD Primary Care Provider [phone] Encounter Details Date Type Department Care Team (Late Contact Info) Description 12/13/2023 Abstract [facility] [address] [place] [address] Miguel Hannon DO [facility] [place], [place] [address] Social History Tobacco Use Types Packs/Day Years [...] AM EDT Routine [facility] [address] [facility] [address] Miguel Hannon DO [facility] [place] [id number] documented as of this encounter Visit Diagnoses Not on filedocumented in this encounter Care Teams Overhead Cleaner Relationship Specialty Start Date End Date Adebayo Quinones MD [facility] [place] [address] PCP - General Family Medicine 11/19/23 documented as of this encounter
--- OUTSIDE RECORDS SUMMARY | 2024-11-27 19:04 | XMS_ITS | Encounter Summary ---
Author Organization [facility] tem Address [facility] [address] [place] [address] Care Team Providers Care Psychologist Engineering Name Role Phone Unavailable Primary Care Provider Unavailabl e Encounter Details Date Type Department Care Team (Late st Contact Info) Description 11/25/2024 Telephone Maternal- Medicine at [facility] [address] [place] [address] Naomie Huber, ENE [address] [place] [address] Social History Tobacco Use Types Packs/Day Years [...] Telephone Encounter - ENE Byers - 11/25/2024 10:55 AM EDT Andressa called back, she is on a Dexcom and did enter our clinic code. She said that she feels that her blood sugars are all over the place but she does seem to spike after meals. Noticed that she hadbagels a few times and that they are higher glycemic. Encouraged to try higher fiber bread/wraps atmeals and also include non starchy vegetables to increase the fiber content at her meals. Andressa werner missing snacks, runs out of time. The drinkable yogurts did not appeal to her but suggested maybe something like glycerna or Box drink for a snack. Advised that she does non haveto send food logs any longer and that we will review her Dexcom readings weekly. documented in this encounter Plan of Treatment Upcoming Encounters Date Type Department Care Team (Late st Contact Info) Description 11/28/2024 11:30 AM EDT Office Visit Maternal- Medicine at [facility] [address] [place] [address] Priscila Granados MD [address] [facility] 1[address] [place] [address] 12/11/2024 1:00 PM EDT Appointment Maternal Medicine [place] [address] [facility] 4 [place] [address] documented as of this encounter Visit Diagnoses Not on filedocumented in this encounter
--- OUTSIDE RECORDS SUMMARY | 2024-11-27 19:05 | XMS_ITS | Encounter Summary ---
Author Organization [facility] tem Address [id number] [address] [place] [address] Care Team Providers Care Drying Tumbler Operator Name Role Phone Unavailable Primary Care [...] AM EDT Office Visit Maternal- Medicine at [facility] [address] [facility] [place] [address] Priscila Granados MD [address] 1[address] [place] [address] 12/11/2024 1:00 PM EDT Appointment Maternal Medicine [place] [address] [facility] 4 [place] [address] documented as of this encounter Visit Diagnoses Not on filedocumented in this encounter
--- OUTSIDE RECORDS SUMMARY | 2024-11-27 19:05 | XMS_ITS | Encounter Summary ---
Author Organization [facility] Address [address] [place] [facility] [place] [address] Care Team Providers Care Phlebotomy Specialist Name Role Phone Adebayo Quinones MD Primary Care Provider [phone] Encounter Details Date Type Department Care Team (Late Contact Info) Description 11/18/2024 Bamboo flowsheet [facility] [place] [address] Miguel Hannon DO [facility] [address] [place], [place] [address] Social History Tobacco Use Types Packs/Day Years [...] 8:40 AM EDT Routine [facility] [place] [address] Miguel Hannon DO [facility] [address] [place], [facility] documented as of this encounter Visit Diagnoses Not on filedocumented in this encounter Care Teams Phlebotomy Specialist Relationship Specialty Start Date End Date Adebayo Quinones MD [address] [place] [address] PCP - General Family Medicine 11/19/23 documented as of this encounter
--- OUTSIDE RECORDS SUMMARY | 2024-11-27 19:05 | XMS_ITS | Encounter Summary ---
Author Organization [facility] Address [address] [facility] [place] [address] Care Team Providers Care Supervisor Major Appliance Assembly Name Role Phone Adebayo Quinones MD Primary Care Provider + [phone] Encounter Details Date Type Department Care Team (Late st Contact Info) Description 11/18/2024 Telephone [facility] [address] [place] [address] Katarzyna Malagon LPN Social History Tobacco [...] 11/18/2024 9:26 AM EDT Please refer to [facility] for completion of anatomy scan, RVOT and LVOT and lips not evaluated. documented in this encounter Plan of Treatment Upcoming Encounters Date Type Department Care Team (Late st Contact Info) Description 12/02/2024 8:40 AM EDT Routine [facility] [address] [place] [address] Miguel Hannon, DO [address] [place] [address] [place] [address] documented as of this encounter Visit Diagnoses Not on filedocumented in this encounter Care Teams Supervisor Major Appliance Assembly Relationship Specialty Start Date End Date Adebayo Quinones MD [address] [place] [address] PCP - General Family Medicine 11/19/23 documented as of this encounter
--- OUTSIDE RECORDS SUMMARY | 2024-11-27 19:05 | XMS_ITS | Clinical Summary ---
Author Organization [facility] [employer] [facility] tem Address [facility] [id number] [address] [place] [address] Care Team Providers Care Dermatopathologist Name Role Phone Unavailable Primary Care Provider [...] Encounters Date Type Department Care Team Description 11/26/2024 Documentation Maternal- Medicine at [facility] [address] [place] [address] Yojana Diehl RN 11/26/2024 Telephone Maternal- Medicine at [facility] [address] [place] [address] Yojana Diehl, HALEY 11/25/2024 Telephone Maternal- Medicine at [facility] [address] [place] [address] Naomie Huber LD 11/25/2024 Telephone Maternal- Medicine at [facility] [address] [place] [address] Naomie Huber LD 11/24/2024 Orders Only Maternal- Medicine at [facility] [address] [place] [address] Ref Prov, Not In System 11/24/2024 Abstract Maternal- Medicine at [facility] [address] [facility] [address] External, Scanning Provider 11/20/2024 10:30 AM EDT Telemedicine Maternal- Medicine at [facility] [address] [place] [address] Miroslava Trinidad RN Crawford, Sarah, LD Karl, Deborah, LD Gestational diabetes mellitus (GDM) in second trimester, gestational diabetes method of control unspecified 11/20/2024 Travel 11/13/2024 Orders Only Maternal- Medicine at [address] [address] Ref Prov, Not In System 11/13/2024 Abstract Maternal- Medicine at [place] [address] [place] [address] Provider, Generic External Data from Last 3 [...] Orientation Not on file Plan of Treatment Upcoming Encounters Date Type Department Care Team (Late st Contact Info) Description 11/28/2024 11:30 AM EDT Office Visit Maternal- Medicine at [place] [address] [place] [address] Priscila Granados MD [address] [facility] 1st [place] [address] 12/11/2024 1:00 PM EDT Appointment Maternal Medicine [place] [address] [facility] [address] [place] [address] Health Maintenance Due Date Last Done Comments [...] period is included. Anatomical Region Laterality Modality OB-TIMBER APPRAISER Ultrasound us Not In System Ref Prov IMG US ORDERABLES Final R esult from Last [address] [place] [address] [place]
--- OUTSIDE RECORDS SUMMARY | 2024-11-27 19:05 | XMS_ITS | Encounter Summary ---
Author Organization [facility] [employer] [facility] tem Address [id number] [address] [place] [address] Care Team Providers Care Drill Press Set Up Operator Name Role Phone Unavailable Primary Care Provider Unavailabl e Encounter Details Date Type Department Care Team (Late st Contact Info) Description 11/13/2024 Orders Only Maternal- Medicine at [facility] [address] [place] [address] Ref Prov, [place] [address] Social History Tobacco Use Types Packs/Day Years [...] AM EDT Office Visit Maternal- Medicine at [facility] [address] [place] [address] Priscila Granados MD [address] [place] [facility] 1st Floor [place], [place] [address] 12/11/2024 1:00 PM EDT Appointment Maternal Medicine [place] [address] [facility] [address] [place] [address] documented as of this encounter Procedures Procedure [...] 11:25 AM EDT) Anatomical Region Laterality Modality OB-ENERGY ASSISTANT Ultrasound us Not In System Ref Prov IMG US ORDERABLES Final R esult * Ultrasound limited 1 or more fetus (11/13/2024 11:24 AM EDT) Anatomical Region Laterality Modality OB-ENERGY ASSISTANT Ultrasound us Not In System Ref Prov IMG US ORDERABLES Final R esult * Ultrasound limited 1 or more fetus (11/13/2024 11:22 AM EDT) Anatomical Region Laterality Modality OB-ENERGY ASSISTANT Ultrasound us Not In System Ref Prov IMG US ORDERABLES Final R esult documented in this encounter Visit Diagnoses Not on filedocumented in this encounter
--- OUTSIDE RECORDS SUMMARY | 2024-11-27 19:05 | XMS_ITS | Clinical Summary ---
Author Organization [facility] Address [address] [place] [address] Care Team Providers Care Manager Forms Name Role Phone Adebayo Solares MD Primary Care Provider + [phone] Allergies No known active allergies Medications omeprazole [...] 8:50 [place] [phone] Kenn Hannon, DO Third trimester ([facility]); 31 weeks gestation of ([facility]); Gestational diabetes mellitus (GDM), antepartum, gestational diabetes method of control unspecified ([facility]) 11/18/20[place] [address] Katarzyna Malagon LPN 11/18/2024 [place] [phone] Kenn Hannon, DO 11/14/2024 Clinisync Result Encounter [facility]OM[facility] External Department Unsolicited Kenn Hannon, DO 11/10/2024 [place] [address] Kenn Hannon, DO 11/10/2024 [place] [address] Kenn Hannon, DO 11/10/2024 Clinisync Result Encounter [facility]OMS External Department Unsolicited Kenn Hannon, DO 11/03/2024 3:10 [place] [address] Kenn Hannon, DO 29 weeks gestation of ([facility]); Third trimester ([facility]); Encounter for follow-up ultrasound of anatomy ([facility]) 11/03/2024 Bamboo flowsheet [place] [address] Kenn Hannon DO 10/31/2024 Clinisync Result Encounter NOM[facility] External Department Unsolicited Maureen Feliz PA 10/21/2024 8:30 AM EDT Routine [facility] [place] [phone] Maureen Feliz PA Size of fetus inconsistent with dates in second trimester ([facility]) (Primary Dx); Second trimester ([facility]); 27 weeks gestation of ([facility]) 10/21/2024 Bamboo flowsheet [facility] [address] [place] [address] [place] [address] Maureen Feliz PA 10/20/2024 Travel 09/16/2024 9:30 AM EDT Routine [facility] [place] [address] Kenn Hannon DO Second trimester ([facility]); 22 weeks gestation of ([facility]); Elevated glucose tolerance test 09/16/2024 8:30 AM EDT Ancillary Procedure [facility] [address] [facility] [place] [phone] Screening, , for anatomic survey ([facility]) 08/27/2024 Telephone [facility] [address] [place] [address] [place] [address] Sravani Bourgeois MA from Last 3 Months Family History Medical History Relation Name Comments Arthritis Father Adebayo Marco Diabetes Father Adebayo Marco Hyperlipidemia Father Adebayo Marco Hypertension Father Adebayo Marco Kidney disease Father Adebayo Marco Stroke Father Adebayo Marco Diabetes Maternal Grandfather James Lissa Hypertension Maternal Grandmother [place] Diabetes Paternal Grandfather Rito Marco Kidney disease Paternal Grandfather Rito Marco Relation Name Status Comments Father Adebayo Marco Maternal Grandfather James Lissa Maternal Grandmother [place] Paternal Grandfather Rito Marco Social History Tobacco [...] AM EDT Routine [facility] [address] [facility] [place] [phone] Kenn Hannon DO [address] [address] [place], [place] [phone] Health Maintenance Due Date Last Done Comments Influenza Vaccine (#1) 2024 , 02/12/2023, 02/03/2022, Additional history exists Cervical Cancer Screening 12/12/2028 HPV/Cotest 12/12/2028 Pap Smear 12/12/2028 12/13/2023, 05/17/2012 Procedures Procedure Name Priority Date/Time Associated Diagnosis Comments POCT URINALYSIS DIPSTICK Routine 11/18/2024 10:23 AM EDT Third trimester ([facility]) 31 weeks gestation of ([facility]) US OB INCOMPLETE ANATOMY 11/14/2024 10:06 AM EDT GLUCOSE TOLERANCE 3 HOUR Routine 11/10/2024 8:45 AM EDT POCT URINALYSIS DIPSTICK Routine 11/03/2024 3:12 PM EDT 29 weeks gestation of ([facility]) Third trimester ([facility]) US OB GROWTH 10/31/2024 7:41 AM EDT POCT URINALYSIS DIPSTICK Routine 10/21/2024 8:49 AM EDT Second trimester ([facility]) 27 weeks gestation of ([facility]) POCT URINALYSIS DIPSTICK Routine 09/16/2024 9:55 AM EDT Second trimester ([facility]) US OB 14+ WEEKS ANATOMY SCAN Routine 09/16/2024 9:34 AM EDT Screening, , for anatomic survey ([facility]) PAP SMEAR Routine 12/13/2023 12:00 AM EDT [...] AM EDT Narrative 11/14/2024 10:09 [place] [address] Ultrasound Report Signed Patient: JAVID PRASAD MR#: [id number] : 1990 Acct:[id number] Age/Sex: 33 / F ADM Date: 11/13/24 Loc: US Attending Dr: Kenn Hannon D.O. Ordering Physician: Kenn Hannon D.O. Date of Service: 11/13/24 Procedure(s): US OB incomplete anatomy Accession Number(s): [id number] cc: Kenn Hannon D.O.; ADEBAYO SOLARES D.O. [place] [id number] Patient Name: JAVID PRASAD MRN: [id number] date: 1990 Sex: F Assigned Patient Location: US Current Patient Location: Accession/Order Number: [id number] Exam Date: 11/14/2024 09:56 Report Date: 11/14/2024 [...] Jr., D.O. 11/14/2024 10:06 AM Dictation Location: [place] [address] Electronically authenticated by: [id number] Y Date: 11/14/2024 10:06 Dictated By: Mark Anthony Conner M.D. Signed By: 11/14/24 1009 DD/ 1006 TD/TT: Brass Chaser: Procedure Note Radiology, Radiologist, MD - 11/14/2024 [place] [address] Ultrasound Report Signed Patient: JAVID PRASAD DMR#: [id number] : 1990Acct:[id number] Age/Sex: 33 / FADM Date: 11/13/24 Loc: US Attending Dr: Kenn Hannon D.O. Ordering Physician: Kenn Hannon D.O. Date of Service: 11/13/24 Procedure(s): US OB incomplete anatomy Accession Number(s): [id number] cc: Kenn Hannon D.O.; ADEBAYO SOLARES D.O. The [place] [id number] Patient Name: JAVID PRASAD MRN: [id number] date: 1990 Sex: F Assigned Patient Location: US Current Patient Location: Accession/Order Number: [id number] Exam Date: 11/14/2024 09:56 Report Date: 11/14/2024 [...] Jr., D.O. 11/14/2024 10:06 AM Dictation Location: [place] [address] Electronically authenticated by: [id number] Y Date: 0:06 Dictated By: Mark Anthony Conner M.D. Signed By:11/14/24 1009 DD/ 1006 TD/TT: Brass Chaser: us Kenn Riddhi DO [facility] Final [...] LAB BLOOD ORDERABLES Final Resul t [facility] * US OB GROWTH (10/31/2024 7:41 AM EDT) Anatomical Region Laterality Modality Other 10/31/2024 7:41 AM EDT Narrative 10/31/2024 7:44 AM EDT The [address] [address] Ultrasound Report Signed Patient: JAVID PRASAD MR#: [id number] : 1990 Acct:[id number] Age/Sex: 33 / F ADM Date: 10/30/24 Loc: US Attending Dr: Maureen Feliz Ordering Physician: Maureen Feliz Date of Service: 10/30/24 Procedure(s): US OB growth Accession Number(s): [id number] cc: Maureen Feliz; ADEBAYO SOLARES D.O. [place] [id number] Patient Name: JAVID PRASAD MRN: [id number] date: 1990 Sex: F Assigned Patient Location: US Current Patient Location: Accession/Order Number: [id number] Exam Date: 10/31/2024 07:37 Report Date: 10/31/2024 [...] Crow M.D. 10/31/2024 7:41 AM Dictation Location: [place] [address] Electronically authenticated by: [id number] Y Date: 10/31/2024 07:41 Dictated By: Katarzyna Crow M.D. Signed By: 10/31/24 0744 DD/ 0741 TD/TT: Brass Chaser: Procedure Note Radiology, Radiologist, - 10/31/[address] [address] Ultrasound Report Signed Patient: JAVID PRASAD DMR#: [id number] : 1990Acct:[id number] Age/Sex: 33 / FADM Date: 10/30/24 Loc: US Attending Dr: Maureen Feliz Ordering Physician: Maureen Feliz Date of Service: 10/30/24 Procedure(s): US OB growth Accession Number(s): [id number] cc: Maureen Feliz; ADEBAYO SOLARES D.O. The [place] [id number] Patient Name: JAVID PRASAD MRN: [id number] date: 1990 Sex: F Assigned Patient Location: US Current Patient Location: Accession/Order Number: [id number] Exam Date: 10/31/2024 07:37 Report Date: 10/31/2024 [...] Crow M.D. 10/31/2024 7:41 AM Dictation Location: [place] [address] Electronically authenticated by: [id number] Y Date: 7:41 Dictated By: Katarzyna Crow M.D. Signed By:10/31/24 0744 DD/ TD/TT: Brass Chaser: us Maureen SING[facility]TON [facility] Final Result [...] II, MD, PHD at 18-Sep-2024 08:49:14 AM [facility] Procedure Note Thomas Olivares MD - [...] signed by THOMAS OLIVARES II, MD, PHD [id number] 08:49:14 AM [facility] us Maureen [facility] OB US PROCEDURES Final Resul t * Pap Smear (12/13/2023 12:00 AM EDT) Swab Cervical swab / Unknown us Kenn Hannon DO LAB CYTOLOGY ORDERABLES Final Re sult EXTERNAL LAB from Last 3 Months or Most Recently Relevant to Health Maintenance Insurance Care Teams Manager Forms Relationship Specialty Start Date End Date Adebayo Solares MD [address] [place] [address] PCP - General Family Medicine 11/19/23
--- OUTSIDE RECORDS SUMMARY | 2024-11-27 19:06 | XMS_ITS | Encounter Summary ---
Author Organization [facility] [employer] [facility] tem Address [id number] [address] [place] [address] Care Team Providers Care Gas Distribution Supervisor Name Role Phone Unavailable Primary Care Provider Unavailabl e Encounter Details Date Type Department Care Team (Late st Contact Info) Description 11/13/2024 Abstract Maternal- Medicine at [facility] [address] [place] [phone] Provider, Generic External Data Social History Tobacco [...] AM EDT Office Visit Maternal- Medicine at [facility] [address] [place] [phone] Priscila Granados MD [address] [facility] 1[address] [place], [place] [phone] 12/11/2024 1:00 PM EDT Appointment [facility] [place] [address] [place] [address] documented as of this encounter [...] Tanisha l Result MANUALLY TRANSCRIBED RESULTS * CBC without diff (07/15/2024) Rbc Mcv (Fl) By Automated Count 85.4 MANUALLY TRANSCRIBED RESULTS Blood Venous blood / Unknown us Not In System Ref Prov LAB BLOOD ORDERABLES Tanisha l Result MANUALLY TRANSCRIBED RESULTS * HIV 1&2 AB/AG Screen (P24 AG) (07/15/2024) HIV 1&2 AB/AG non reactive MAN UALLY TRANSCRIBED RESULTS Blood Venous blood / Unknown us Not In System Ref Prov LAB BLOOD ORDERABLES Tanisha l Result Performing Organization Address City/[facility] Co de Phone Number MANUALLY TRANSCRIBED RESULTS * Type and screen (07/15/2024) Abo/Rh(D) O Positive MANUALLY TRANSCRIBED RESULTS Antibody Screen negative MANUALLY TRANSCRIBED RESULTS Blood Venous blood / Unknown us Not In System Ref Prov BLOOD BANK TEST ORDERABLE S Final Result Performing Organization Address City/[facility] Co de Phone Number MANUALLY TRANSCRIBED RESULTS * Rubella IGG immune status (07/15/2024) Rubella immune IgG 1.77 MANUALLY TRANSCRIBED RESULTS Blood Venous blood / Unknown us Not In System Ref Prov LAB BLOOD ORDERABLES Tanisha l Result Performing Organization Address [facility] Co de Phone Number MANUALLY TRANSCRIBED RESULTS * Syphilis Total (Unknown Syphilis Status) (07/15/2024) Syphilis non reactive MANUALL Y TRANSCRIBED RESULTS Blood Venous blood / Unknown us Not In System Ref Prov LAB BLOOD ORDERABLES Tanisha l Result Performing Organization Address City/[facility] Co de Phone Number MANUALLY TRANSCRIBED RESULTS * Glucose 1h post 50g load (07/15/2024) Glucose, 1Hr PP 182 MANUALLY TRANSCRIBED RESULTS Blood Venous blood / Unknown us Not In System Ref Prov LAB BLOOD ORDERABLES Tanisha l Result Performing Organization Address City/[facility] Co de Phone Number MANUALLY TRANSCRIBED RESULTS * Hemoglobin A1c (07/15/2024) Hemoglobin A1C 5.5 4.0 - 6.0 % MANUALLY TRANSCRIBED RESULTS Blood Venous blood / Unknown us Miguel Paige Riddhi DO LAB BLOOD ORDERABLES Final Resu lt MANUALLY TRANSCRIBED RESULTS * Basic Metabolic Panel (07/15/2024) Glucose 111 mg/dL MANUALLY TRANSCRIBED RESULTS Blood Venous blood / Unknown us Miguel R Riddhi DO LAB BLOOD ORDERABLES Final Resu lt Performing Organization Address [facility] Co de Phone Number MANUALLY TRANSCRIBED RESULTS [...] ORDERABLES Final Resu lt Performing Organization Address [facility] Co de Phone Number MANUALLY TRANSCRIBED RESULTS * Drug Screen, Urine [...] Ref Prov URINE ORDERABLES Final Re sult Performing Organization Address City/[facility]/ZIP Co de Phone Number MANUALLY TRANSCRIBED RESULTS documented in this encounter Visit Diagnoses Not on filedocumented in this encounter
[2024-11-27 19:31] VITALS: TEMP 36.1
[2024-11-27 19:33] VITALS: TEMP 36.1
[2024-11-27 19:34] VITALS: BP 119/72; PULSE 86
== END 2024-11-27 20:06 | disposition home or self-care (01) ==
LOC: US 19:01 → FBC 19:04
PROVIDERS: PCP Family Medicine; Visit Provider Obstetrics & Gynecology
DX: O24.419 Gestational diabetes mellitus in pregnancy, unspecified control (principal); Z3A.32 32 weeks gestation of pregnancy
CPT/HCPCS: 76818

== ENCOUNTER 2024-12-02 16:44 | Outpatient (OUT) | payer BC, SELFPAY ==
--- OUTSIDE RECORDS SUMMARY | 2024-12-02 16:58 | XMS_ITS | CCD ---
Author Organization [facility] Care Team Providers Care Novelties Sales Representative Name Role Phone BECK, DR ADEBAYO Oropeza Primary Care Unavailable SOLARES, DR ADEBAYO Oropeza Consulting Unavailable SOLARES, DR ADEBAYO Oropeza Attending Unavailable SOLARES, DR ADEBAYO Oropeza Admitting Unavailable Zieber, DR Ge Consulting Unavailable GLATZLOUIS Consulting Unavailable SOLARES, DR ADEBAYO Oropeza Primary Care Unavailable SOLARES, DR ADEBAYO Oropeza Consulting Unavailable SOLARES, DR ADEBAYO Oropeza Attending Unavailable SOLARES, DR ADEBAYO Oropeza Admitting Unavailable Sak Adebayo SHORT Attending Unavailable Solares, Adebayo Primary Care Unavailable Jaret ROUTER TENDER-CHANNEL MARKETING MANAGER, Isabella Sepulveda Attending Unavaila ble Solares, Adebayo Primary Care Unavailable Jaret ROUTER TENDER-CHANNEL MARKETING MANAGERIsabella Attending Unavaila ble Solares, Adebayo Primary Care Unavailable SolaresAdebayo Consulting Unavailable SolaresAdebayo Referring Unavailable EMEKA HERNANDEZ Referring Unavailable Solares Adebayo GOYAL Primary Care Provider Unavailable Primary Care Provider UnavailMIGUEL Newton Attending Unavailable MAUREEN FELIZ Attending Unavailable RIDDHI, MIGUEL Attending Unavailable PAULAMAUREEN ASHRAF Attending Unavailable RIDDHI, MIGUEL Attending Unavailable RIDDHI, MIGUEL Attending Unavailable RIDDHI, MIGUEL Attending Unavailable RIDDHI, MIGUEL Attending Unavailable MAUREEN FELIZ Attending Unavailable TRENTMARIANA Tan Attending Unavailable TRENTMARIANA Tan Referring Unavailable TRENT, MARIANA Referring Unavailable TRENT, MARIANA Referring Unavailable TRENT, MARIANA Referring Unavailable CHALINO, VIRAL Referring Unavailable TRENT, MARIANA Referring Unavailable TRENT, MARIANA Referring Unavailable CHALINO, VIRAL Referring Unavailable TRENT, MARIANA Referring Unavailable TRENT, MARIANA Referring Unavailable CHALINO, VIRAL Referring Unavailable MARIANA NEWMAN Attending Unavailable MIGUEL HANNON Referring Unavailable NAOMIE CHAHAL Attending Unavailable SAUL GRANADOS Attending Unavailable RIDDHI, MIGUEL R Referring Unavailable Allergies Allergy Classification Reported Allergen(s) Allergy Type Date of Onset Reaction(s) Facility (1 source) No Known Medication Allergies; Translations: [No Known Medication Allergies] Propensity to adverse reactions to drug (disorder) [facility] Repository Medications Current Medications Medication Drug Class(es) Dates Sig (Normalized) Sig (Original) aspirin 81 mg delayed release oral tablet (17 sources) Platelet Aggregation Inhibitor, Nonsteroidal Anti-inflammatory Drug take 1 tablet by mouth in the morning aspirin 81 MG EC tablet Take 81 mg by mouth in the morning. Active Blood Glucose Monitoring Suppl (D-Care Glucometer) w/Device kit (8 sources) Start: 11-10-2024 End: 11-10-2025 Blood Glucose Monitoring Suppl (D-Care Glucometer) w/Device kit Indications: Gestational diabetes mellitus (GDM), antepartum, gestational diabetes method of control unspecified (HHS-HCC) , Elevated glucose tolerance test 1 kit Daily Use four times daily to check FSBS. In the morning prior to breakfast & 1 hour after each meal for a total of 4times daily. 1 kit 11/10/2024 11/10/2025 Active Continuous Glucose Sensor (Dexcom G7 Sensor) misc (2 sources) Start: 12-02-2024 End: 01-01-2025 Continuous Glucose Sensor (Dexcom G7 Sensor) misc Indications: Gestational diabetes mellitus (GDM), antepartum, gestational diabetes method of control unspecified (HHS-HCC) 1 each Every 10 (ten) days 3 each 1 12/02/2024 01/01/2025 Active 3 ml insulin glargine 100 unt/ml pen injector (3 sources) Insulin Analog Start: 11-28-2024 inject 100 [IU] by subcutaneous injection at bedtime Lantus SoloStar 100 UNIT/ML pen Inject under the skin at bedtime 11/28/2024 Active Start: 11-28-2024 insulin glargi ne (LANTUS SOLOSTAR U-100 INSULIN) 100 unit/mL (3 mL) insulin pen Inject 10 units of insulin in the evening, subcutaneously, prime 2 units 15 mL 11 11/28/2024 Active isopropyl alcohol 0.7 ml/ml medicated pad (8 sources) Start: 11-10-2024 Alcohol Swabs (Alcohol Prep Pad) 70 % pads Indications: Gestational diabetes mellitus (GDM), antepartum, gestational diabetes method of control unspecified ([facility]) , Elevated glucose tolerance test Apply 1 Pad topically Daily Use four times daily to check FSBS. 150 each 3 11/10/2024 Active metFORMIN hydrochloride 500 mg oral tablet [...] in the morning. Take before meals. Active take 1 capsule by mouth in the m orning omeprazole (PriLOSEC) 20 mg capsule Take 1 capsule (20 mg total) by mouth in the morning. Active ondansetron 4 mg disintegrating oral tablet [...] vomiting 30 tablet 2 06/19/2024 07/19/2024 Active PNV no.153/FA/om3/dha/epa/fi sh ( GUMMIES ORAL) (6 sources) take 2 doses by mouth in the morning PNV no.153/FA/om3/dha/epa/fish ( GUMMIES ORAL) Take 2 each by mouth in the morning. Active Completed/Discontinued Medications Medication Drug Class(es) Dates Sig (Normalized) Sig (Original) azithromycin 250 mg oral tablet (3 sources) Macrolide Antimicrobial Start: 07-28-2024 End: 08-19-2024 azithromycin (Zithromax Z-Roman) 250 MG tablet Indications: Sinus congestion As directed 6 tablet 07/28/2024 08/19/2024 Discontinued (Therapy completed) Problems Problem Classification Problem Date Documented Date Episodic/Chronic Benign neoplasm of uterus (1 source) Uterine leiomyoma; Translations: [Leiomyoma of uterus, unspecified] 01-16-2024 Episodic Cardiac dysrhythmias (7 sources) Palpitations; Translations: [PALPITATIONS] Onset: 11-15-2021 Episodic Diabetes mellitus without complication (4 sources) Abnormal glucose tolerance test; Translations: [Other abnormal glucose] 08-19-2024 Episodic Diabetes or abnormal glucose tolerance complicating ; childbirth; or the puerperium (10 sources) Gestational diabetes mellitus; Translations: [Gestational diabetes mellitus in , unspecified control] Onset: 11-20-2024 11-18-2024 Episodic Female infertility (2 sources) Female infertility; [...] malignant neoplasm] 02-19-2024 Episodic Other complications of (1 source) Maternal obesity complicating , childbirth and the puerperium, antepartum; Translations: [Obesity complicating , unspecified trimester] 11-28-2024 Chronic Other complications of (1 source) Obesity complicating , unspecified trimester; Translations: [Obesity complicating , unspecified trimester] Onset: 11-28-2024 Chronic Other complications of (2 sources) size does not accord with dates; Translations: [Uterine size-date discrepancy, second trimester] 10-21-2024 Episodic Other endocrine disorders (2 sources) Polycystic ovary syndrome; Translations: [Polycystic ovarian syndrome] 12-25-2023 Chronic Other female genital disorders (2 sources) Abnormal uterine bleeding; Translations: [Other specified abnormal uterine and vaginal bleeding] 12-25-2023 Chronic Other and delivery including normal (14 sources) Second trimester ; Translations: [Encounter for [...] [29 weeks gestation of ] 11-03-2024 Episodic Residual codes; unclassified (2 sources) Gestation period, 31 weeks; Translations: [31 weeks gestation of ] 11-18-2024 Episodic Residual codes; unclassified (1 source) Family history of diabetes mellitus type 2; Translations: [Family history of diabetes mellitus] 11-28-2024 Episodic Residual codes; unclassified (1 source) Gestation period, 32 weeks; Translations: [32 weeks gestation of ] 11-28-2024 Episodic Residual codes; unclassified (1 source) Family history of diabetes mellitus; Translations: [Family history of diabetes mellitus] Onset: 11-28-2024 Episodic Residual codes; unclassified (1 source) 32 weeks gestation of ; Translations: [32 weeks gestation of ] Onset: 11-28-2024 Episodic Residual codes; unclassified (2 sources) Gestation period, 33 weeks; Translations: [33 weeks gestation of ] 12-02-2024 Episodic Syncope (1 source) Syncope and collapse; Translations: [Syncope and collapse] Onset: 12-12-2022 Episodic Unclassified (1 source) GDM, med start Onset: 11-28-2024 Unclassified (1 source) Gestational Diabetes Onset: 11-20-2024 Results Test Name Value Interpretation Reference Range Facility Urinalysis macro (dipstick) panel (U)on 12-02-2024 Bilirubin, UA Negative Negative - 4(70) +++ mg/dL [facility] Blood, UA Negative Negative - 50 Osmin/mcL [facility] Clarity, UA Clear [facility] Color, UA Yellow [facility] Glucose, UA Negative Negative - 1999(110) ++++ mg/dL [facility] Interpretation and review of laboratory results Abnormal [facility] Ketones, UA Negative Negative - 160(16) ++++ mg/dL [facility] Leukocytes, UA Positive Negative - 500+++ Oumou/mcL [facility] Nitrite, UA Negative Negative - Positive [facility] pH, UA 6 5 - 9 [facility] e Protein, UA Negative Negative - 1999(20) ++++ mg/dL [facility] Spec Grav, UA 1.025 1 - 1.03 [facility] Urobilinogen, UA 1.0 0.2 - 12 mg/dL [facility] POCT Hemoglobin A1con 2024 HbA1c (Bld) [Mass fraction] 5.7 % 4 - 7 % [facility] OB BPP W NON-STRESS on 11-27-2024 [place] [address] Ultrasound Report Signed Patient: JAVID PRASAD MR#: [id number] : 1990 Acct:[id number] Age/Sex: 33 / F ADM Date: 11/27/24 Loc: US Attending Dr: Miguel Hannon D.O. Ordering Physician: Miguel Hannon D.O. Date of Service: 11/27/24 Procedure(s): US OB BPP w non-stress Accession Number(s): [id number] cc: Miguel Hannon D.O.; ADEBAYO SOLARES D.O. [address] [address] Patient Name: JAVID PRASAD MRN: [facility]:[id number] date: 1990 Sex: F Assigned Patient Location: [facility] Current Patient Location: Accession/Order Number: [id number] Exam Date: 11/27/2024 23:39 Report Date: 11/27/2024 23:40 At the request of: MIGUEL HANNON DO Procedure: US OB BPP w non-stress Ultrasound biophysical profile HISTORY: Gestational diabetes Adequate breathing movement, gross body movement, tone and amniotic fluid volume for total score of 8 out of 8. The amniotic fluid index is 14.4cm within normal limits. The heart rate 145 bpm. Possible nuchal cord US/US OB BPP w non-stress IMPRESSION: Adequate ultrasound biophysical profile Impression dictated by: Sergo Deutsch M.D. 11/27/2024 11:40 PM Dictation Location: [place] [address] Electronically authenticated by: [id number] Y Date: 11/27/2024 23:40 Dictated By: Sergo Deutsch D.O. Signed By: 11/27/24 234 DD/ 39 TD/TT: In Home Tutor: [facility] Radiology, Radiologist, - 11/27/2024 [place] [address] Ultrasound Report Signed Patient: JAVID PRASAD MR#: [id number] : 1990 Acct:[id number] Age/Sex: 33 / F ADM Date: 11/27/24 Loc: US Attending Dr: Miguel Hannon D.O. Ordering Physician: Miguel Hannon D.O. Date of Service: 11/27/24 Procedure(s): US OB BPP w non-stress Accession Number(s): [id number] cc: Miguel Hannon D.O.; ADEBAYO SOLARES D.O. The [address] [address] Patient Name: JAVID PRASAD MRN: [facility]:[id number] date: 1990 Sex: F Assigned Patient Location: [facility] Current Patient Location: Accession/Order Number: [id number] Exam Date: 11/27/2024 23:39 Report Date: 11/27/2024 23:40 At the request of: MIGUEL HANNON DO Procedure: US OB BPP w non-stress Ultrasound biophysical profile HISTORY: Gestational diabetes Adequate breathing movement, gross body movement, tone and amniotic fluid volume for total score of 8 out of 8. The amniotic fluid index is 14.4cm within normal limits. The heart rate 145 bpm. Possible nuchal cord US/US OB BPP w non-stress IMPRESSION: Adequate ultrasound biophysical profile Impression dictated by: Sergo Deutsch M.D. 11/27/2024 11:40 PM Dictation Location: [employer]) Electronically authenticated by: [id number] Y Date: 11/27/2024 23:40 Dictated By: Sergo Deutsch D.O. Signed By: 11/27/242341 DD/ 39 TD/TT: In Home Tutor: [facility] Radiology Study observation (narrative) [facility] US OB BPP W NON-STRESS Ordered By: Radiologist Radiology on 11-27-2024 [facility] Work Phone: Urinalysis macro (dipstick) panel (U)on 11-18-2024 Bilirubin, UA Negative Negative - 4(70) +++ mg/dL [facility] Blood, UA Negative Negative - 50 Osmin/mcL [facility] Clarity, UA Clear [facility] re Color, UA Light Yellow [facility] are Glucose, UA Trace Negative - 1999(110) ++++ mg/dL [facility] Interpretation and review of laboratory results Normal [facility] Ketones, UA Negative Negative - 160(16) ++++ mg/dL [facility] Leukocytes, UA Negative Negative - 500+++ Oumou/mcL [facility] Nitrite, UA Negative Negative - Positive [facility] pH, UA 6 5 - 9 [facility] e Protein, UA Negative Negative - 1999(20) ++++ mg/dL [facility] Spec Grav, UA 1.015 1 - 1.03 [facility] Urobilinogen, UA 4.0 0.2 - 12 mg/dL [facility] US OB INCOMPLETE ANATOMYon 0 11-14-2024 [place] [address] Ultrasound Report Signed Patient: JAVID PRASAD MR#: [id number] : 1990 Acct:[id number] Age/Sex: 33 / F ADM Date: 11/13/24 Loc: US Attending Dr: Miguel Hannon D.O. Ordering Physician: Miguel Hannon D.O. Date of Service: 11/13/24 Procedure(s): US OB incomplete anatomy Accession Number(s): [id number] cc: Miguel Hannon D.O.; ADEBAYO SOLARES D.O. [place] [id number] Patient Name: JAVID PRASAD MRN: [facility]:[id number] date: 1990 Sex: F Assigned Patient Location: US Current Patient Location: Accession/Order Number: [id number] Exam Date: 11/14/2024 09:56 Report Date: 11/14/2024 10:06 At the request of: MIGUEL HANNON DO Procedure: US OB incomplete anatomy [...] Jr., D.O. 11/14/2024 10:06 AM Dictation Location: [place] [address] Electronically authenticated by: [id number] Y Date: 11/14/2024 10:06 Dictated By: Mark Anthony Conner M.D. Signed By: 11/14/24 1009 DD/ 1006 TD/TT: In Home Tutor: [facility] Radiology, Radiologist, - 11/14/[address] [address] Ultrasound Report Signed Patient: JAVID PRASAD MR#: [id number] : 1990 Acct:[id number] Age/Sex: 33 / F ADM Date: 11/13/24 Loc: US Attending Dr: Miguel Hannon D.O. Ordering Physician: Miguel Hannon D.O. Date of Service: 11/13/24 Procedure(s): US OB incomplete anatomy Accession Number(s): [id number] cc: Miguel Hannon D.O.; ADEBAYO SOLARES D.O. The [place] [id number] Patient Name: JAVID PRASAD MRN: [facility]:[id number] date: 1990 Sex: F Assigned Patient Location: US Current Patient Location: Accession/Order Number: [id number] Exam Date: 11/14/2024 09:56 Report Date: 11/14/2024 10:06 At the request of: MIGUEL HANNON DO Procedure: US OB incomplete anatomy [...] Jr., D.O. 11/14/2024 10:06 AM Dictation Location: [place] [address] Electronically authenticated by: [id number] Y Date: 11/14/2024 10:06 Dictated By: Mark Anthony Conner M.D. Signed By: 11/14/24 1009 DD/ 1006 TD/TT: In Home Tutor: [facility] Radiology Study observation (narrative) [facility] US OB INCOMPLETE ANATOMYOrde red By: Radiologist Radiology on 11-14-2024 [facility] Health[facility] Work Phone: GLUCOSE TOLERANCE 3 HOURon 0 11-10-2024 GLUCOSE TOLERANCE 3 HOUR High mg/dL [facility] Comment on above: GLU FAST 113H (<95) Col: 11/10/24 0845 GLU 1HR 208H (<180) Col: 11/10/24 0945 GLU 2HR 152 (<155) Col: 11/10/24 1052 GLU 3HR 81 (<140) Col: 11/10/24 1147 Interpretation and review of laboratory results Abnormal [facility] Urinalysis macro (dipstick) panel (U)on 11-03-2024 Bilirubin, UA Negative Negative - 4(70) +++ mg/dL [facility] Blood, UA Negative Negative - 50 Osmin/mcL [facility] Clarity, UA Clear [facility] re Color, UA Yellow [facility] Health[facility] Glucose, UA Positive Negative - 1999(110) ++++ mg/dL [facility] Interpretation and review of laboratory results Abnormal [facility] Ketones, UA Negative Negative - 160(16) ++++ mg/dL [facility] Leukocytes, UA Negative Negative - 500+++ Oumou/mcL [facility] Nitrite, UA Negative Negative - Positive [facility] pH, UA 7 5 - 9 [facility] [employer] e Protein, UA Trace Negative - 1999(20) ++++ mg/dL [facility] Spec Grav, UA 1.02 1 - 1.03 [facility] Urobilinogen, UA 1.0 0.2 - 12 mg/dL [facility] US OB GROWTHon 10-31-[address] [address] Ultrasound Report Signed Patient: JAVID PRASAD MR#: [id number] : 1990 Acct:[id number] Age/Sex: 33 / F ADM Date: 10/30/24 Loc: US Attending Dr: Maureen Feliz Ordering Physician: Maureen Feliz Date of Service: 10/30/24 Procedure(s): US OB growth Accession Number(s): [id number] cc: Maureen Feliz; ADEBAYO SOLARES D.O. [place] [address] Patient Name: JAVID PRASAD MRN: [id number]:[id number] date: 1990 Sex: F Assigned Patient Location: US Current Patient Location: Accession/Order Number: [id number] Exam Date: 10/31/2024 07:37 Report Date: 10/31/2024 [...] Crow M.D. 10/31/2024 7:41 AM Dictation Location: [place] [address] Electronically authenticated by: [id number] Y Date: 10/31/2024 07:41 Dictated By: Katarzyna Crow M.D. Signed By: 10/31/24 0744 DD/ 0725 TD/TT: In Home Tutor: [facility] Radiology, Radiologist, - 10/31/[address] [address] Ultrasound Report Signed Patient: JAVID PRASAD MR#: [id number] : 1990 Acct:[id number] Age/Sex: 33 / F ADM Date: 10/30/24 Loc: US Attending Dr: Maureen Feliz Ordering Physician: Maureen Feliz Date of Service: 10/30/24 Procedure(s): US OB growth Accession Number(s): [id number] cc: Maureen Feliz; ADEBAYO SOLARES D.O. The [address] [address] Patient Name: JAVID PRASAD MRN: [facility]:[id number] date: 1990 Sex: F Assigned Patient Location: US Current Patient Location: Accession/Order Number: [id number] Exam Date: 10/31/2024 07:37 Report Date: 10/31/2024 [...] Crow M.D. 10/31/2024 7:41 AM Dictation Location: [place] [address] Electronically authenticated by: [id number] Y Date: 10/31/2024 07:41 Dictated By: Katarzyna Crow M.D. Signed By: 10/31/24 0744 DD/ 0741 TD/TT: In Home Tutor: [facility] Radiology Study observation (narrative) [facility] US OB GROWTHOrdered By: Layne ologist Radiology on 10-31-2024 [facility] Work Phone: Office Visiton 10-21-2024 Follow-up visit [id number] Javid Prasad 1990 F Date Provider Department Center 10/21/2024 MARIANA WALTER BEBETO Koehler Family History Problem Relation Age of Onset Atrial fibrillation Mother Diabetes Father Kidney disease Father Heart attack Maternal Grandmother Family Status - Relation Status Age at Mother Alive Father Alive Maternal Grandmother Level of Service:[address] [place] OFFICE/OUTPATIENT ESTABLISHED LOW MDM 20 MIN Normal [facility] Urinalysis macro (dipstick) panel (U)on 10-21-2024 Bilirubin, UA Negative Negative - 4(70) +++ mg/dL [facility] Blood, UA Negative Negative - 50 Osmin/mcL [facility] Clarity, UA Clear [facility] Health[facility] re Color, UA Yellow [facility] Health[facility] Glucose, UA Negative Negative - 1999(110) ++++ mg/dL [facility] Interpretation and review of laboratory results Abnormal [facility] Ketones, UA Positive Negative - 160(16) ++++ mg/dL [facility] Leukocytes, UA Negative Negative - 500+++ Oumou/mcL [facility] Nitrite, UA Negative Negative - Positive [facility] pH, UA 5.5 5 - 9 [facility] Health[facility] e Protein, UA Negative Negative - 1999(20) ++++ mg/dL [facility] Spec Grav, UA 1.02 1 - 1.03 [facility] Urobilinogen, UA 1.0 0.2 - 12 mg/dL [facility] US OB 14+ WEEKS ANATOMY [...] II, MD, PHD at 18-Sep-2024 08:49:14 AM [facility] Normal Not Available Comment on above: Order Comment: US OB ANATOMY SINGLE W US OB CERVICAL LENGTH Estimated Date of Delivery: 01/17/25 Gestational Age as of 08/19/2024: 18w3d Urinalysis macro (dipstick) panel (U)on 09-16-2024 Bilirubin, UA Negative Negative - 4(70) +++ mg/dL [facility] Blood, UA Negative Negative - 50 Osmin/mcL [facility] Clarity, UA Clear [facility] re Color, UA Yellow [facility] e Glucose, UA Negative Negative - 1999(110) ++++ mg/dL [facility] Interpretation and review of laboratory results Normal [facility] Ketones, UA Negative Negative - 160(16) ++++ mg/dL [facility] Leukocytes, UA Negative Negative - 500+++ Oumou/mcL [facility] Nitrite, UA Negative Negative - Positive [facility] pH, UA 6 5 - 9 [facility] e Protein, UA Negative Negative - 1999(20) ++++ mg/dL [facility] Spec Grav, UA 1.025 1 - 1.03 [facility] Urobilinogen, UA 0.2 0.2 - 12 mg/dL [facility] GLUCOSE TOLERANCE 3 HOURon 0 08-23-2024 GLUCOSE TOLERANCE 3 HOUR High mg/dL [facility] Comment on above: GLU FAST 110H (<95) Col: 08/23/24 0738 GLU 1HR 173 (<180) Col: 08/23/24 0839 GLU 2HR 131 (<155) Col: 08/23/24 0939 GLU 3HR 67 (<140) Col: 08/23/24 1040 Interpretation and review of laboratory results Abnormal [facility] e RECURRENT VAGINITIS (HTRX)on 08-20-2024 ATOPOBIUM VAGINAE 0 [facility] ATOPOBIUM VAGINAE Not detected [facility] BVAB 2,3 (BACTERIAL VAGINOSIS ASSOCIATED BACTERIA 2, 3); MOBILUNCUS SPP 0 [facility] BVAB 2,3 (BACTERIAL VAGINOSIS ASSOCIATED BACTERIA 2, 3); MOBILUNCUS SPP Not detected [facility] AGUSTIN ALBICANS, PARAPSILOSIS, TROPICALIS 0 [facility] AGUSTIN ALBICANS, PARAPSILOSIS, TROPICALIS Not detected [facility] AGUSTIN GLABRATA 0 [facility] AGUSTIN GLABRATA Not detected [facility]IN KRUSEI Not detected [facility] lthcare CHLAMYDIA TRACHOMATIS 0 [facility] CHLAMYDIA TRACHOMATIS Not detected N [facility] GARDNERELLA VAGINALIS 0 [facility] GARDNERELLA VAGINALIS Not detected N [facility] MEGASPHAERA (TYPES 1, 2) 0 [facility] MEGASPHAERA (TYPES 1, 2) Not detected [facility] MYCOPLASMA GENITALIUM 0 [facility] MYCOPLASMA GENITALIUM Not detected N [facility] NEISSERIA GONORRHOEAE 0 [facility] NEISSERIA GONORRHOEAE Not detected N [facility] TRICHOMONAS VAGINALIS 0 [facility] TRICHOMONAS VAGINALIS Not detected N [facility] [facility] GLUCOSE 1 HOURon 08-19-2024 Glucose [Mass/Vol] 182 mg/dL High NINF - 13 0 mg/dL [facility] Interpretation and review of laboratory results Abnormal [facility] Urinalysis macro (dipstick) panel (U)on 08-19-2024 Bilirubin, UA Positive Negative - 4(70) +++ mg/dL [facility] Comment on above: small Blood, UA Negative Negative - 50 Osmin/mcL [facility] Clarity, UA Clear [facility] re Color, UA Yellow [facility] Glucose, UA Negative Negative - 1999(110) ++++ mg/dL [facility] Interpretation and review of laboratory results Abnormal [facility] Ketones, UA Positive Negative - 160(16) ++++ mg/dL [facility] Comment on above: 15 Leukocytes, UA Negative Negative - 500+++ Oumou/mcL [facility] Nitrite, UA Negative Negative - Positive [facility] pH, UA 6 5 - 9 [facility] Health[facility] e Protein, UA Positive Negative - 1999(20) ++++ mg/dL [facility] Comment on above: 30 Spec Grav, UA 1.025 1 - 1.03 [facility] Urobilinogen, UA 0.2 0.2 - 12 mg/dL [facility] Urinalysis macro (dipstick) panel (U)on 07-22-2024 Bilirubin, UA Negative Negative - 4(70) +++ mg/dL [facility] Blood, UA Negative Negative - 50 Osmin/mcL [facility] Clarity, UA Clear [facility] Healthca re Color, UA Yellow [facility] Glucose, UA Negative Negative - 1999(110) ++++ mg/dL [facility] Interpretation and review of laboratory results Abnormal [facility] Ketones, UA Positive Negative - 160(16) ++++ mg/dL [facility] Comment on above: trace Leukocytes, UA Negative Negative - 500+++ Oumou/mcL [facility] Nitrite, UA Negative Negative - Positive [facility] pH, UA 6.5 5 - 9 [facility] e Protein, UA Trace Negative - 2000(20) ++++ mg/dL [facility] Spec Grav, UA 1.025 1 - 1.03 [facility] Urobilinogen, UA 0.2 0.2 - 12 mg/dL [facility] CBC and differentialon 07-15 Hematocrit (Bld) [Volume fraction] 42 % 36 - 46 % [facility] Hemoglobin (Bld) [Mass/Vol] 13.6 g/dL 12.0 - 16.0 g/dL [facility] Platelets (Bld) [#/Vol] 392 10*3/uL 150 - 399 10*3/uL [facility] WBC (Bld) [#/Vol] 9.2 10*3/mL 3.3 - 10.0 10*3/mL [facility] CBC without diffon 5 Rbc Mcv (Fl) By Automated Count 85.4 [facility] Drug Screen, Urineon 025 Amphetamine/Methamphe tamine Negative [facility] Barbiturates Negative [facility] Benzodiazepines Negative [facility] Cocaine Metabolite Negative [facility] Methadone Negative [facility] Opiates Negative [facility] Oxycodone Negative [facility] Phencyclidine Negative [facility] Thc Marijuana, Urine Negative [facility] Glucose 1h post 50g loadon 0 07-15-2024 Glucose, 1Hr PP 182 [facility] HBV surface Ag IA Qlon 07-15 Hepatitis B Surface Antigen Negative [facility] HIV 1+2 Ab+HIV1 p24 Ag IA Ql on 07-15-2024 HIV 1&2 AB/AG Non-Reactive [facility] Laboratory - Chemistry and C hemistry - challengeon 07-15-2024 Glucose [Mass/Vol] 111 mg/dL [facility] Laboratory - Hematology and Cell countson 07-15-2024 HbA1c (Bld) [Mass fraction] 5.5 % 4.0 - 6.0 % [facility] Comment on above: ADA RECOMMENDED LIMI T 4.0 - 6.0 ADA THERAPEUTIC TARGET < 7.0 ACTION SUGGESTED > 7.0 MLR HEMOGLOBIN A1Con 025 [facility] No Panel Informationon 07-15 [facility] Health[facility] e Rubella IGG immune statuson 07-15-2024 Rubella immune IgG 1.77 [facility] T. pallidum IgG+IgM IA Ql (S )on 07-15-2024 Syphilis Non-Reactive [facility] Type and screenon 07-15-2024 Abo/Rh(D) Positive [facility] US OB TRANSVAGINALon 025 US OB TRANSVAGINAL [...] II, MD, PHD at 20-Jun-2024 08:24:08 AM [facility] Normal Not Available Comment on above: Order Comment: US OB TRANSVAGINAL No LMP recorded. TBH PREG QUANT HCGon 025 HCG QUANTITATIVE 2792 mIU/mL [facility] Comment on above: 5-50 0.2-1 WEEK 50-500 1-2 WEEKS 100-5,000 2-3 WEEKS 500-10,000 3-4 WEEKS 1,000-50,000 4-5 WEEKS 10,000-100,000 5-6 WEEKS 15,000-200,000 6-8 WEEKS 10,000-100,000 2-3 MONTHS [facility] Healthcar e TBH PREG QUANT HCGon 025 HCG QUANTITATIVE 713 mIU/mL [facility] Comment on above: 5-50 0.2-1 WEEK 50-500 1-2 WEEKS 100-5,000 2-3 WEEKS 500-10,000 3-4 WEEKS 1,000-50,000 4-5 WEEKS 10,000-100,000 5-6 WEEKS 15,000-200,000 6-8 WEEKS 10,000-100,000 2-3 MONTHS [facility] ALL CBC WITH AUTO DIFFon BASOPHILS ABSOLUTE AUTO 0.1 [facility] Basophils/100 WBC (Bld) 0.8 % 0.2 - 2.0 % [facility] Healthcare Eosinophils/100 WBC (Bld) 3.5 % 0.9 - 7.0 % [facility] Erythrocyte distribution width (RBC) [Ratio] 13.2 % 11.0 - 15.0 % [facility] Hematocrit (Bld) [Volume fraction] 41.9 % 36.0 - 48.0 % [facility] Hemoglobin (Bld) [Mass/Vol] 13.8 g/dL 12.0 - 16.0 g/dL [facility] IMMATURE GRANULOCYTES ABS AUTO 0.02 [facility] Immature granulocytes/100 WBC (Bld) 0.3 % 0.0 - 0.5 % [facility] Healthcare LYMPHOCYTES ABSOLUTE AUTO 2.5 [facility] Lymphocytes/100 WBC (Bld) 31.1 % 20.5 - 60.0 % [facility] MCH (RBC) [Entitic mass] 27.7 pg 26.7 - 34.0 pg [facility] MCHC (RBC) [Mass/Vol] 32.9 g/dL 29.9 - 35.2 g/dL [facility] MCV (RBC) [Entitic vol] 84 fL 81.0 - 99.0 fL [facility] MONOCYTES ABSOLUTE AUTO 0.5 [facility] Monocytes/100 WBC (Bld) 6.6 % 1.7 - 12.0 % [facility] NEUTROPHILS ABSOLUTE AUTO 4.6 [facility] Neutrophils/100 WBC (Bld) 57.7 % 43.0 - 75.0 % [facility] Platelet mean volume (Bld) [Entitic vol] 9.6 fL 9.5 - 13.5 fL [facility] EO # 0.3 [facility] PLT 429 [facility] TB RBC 4.99 [facility] WBC 8 [facility] ALL CBC WITH AUTO DIFFon BASOPHILS ABSOLUTE AUTO 0.1 [facility] Basophils/100 WBC (Bld) 0.7 % 0.2 - 2.0 % [facility] Eosinophils/100 WBC (Bld) 3.7 % 0.9 - 7.0 % [facility] Erythrocyte distribution width (RBC) [Ratio] 13.2 % 11.0 - 15.0 % [facility] Hematocrit (Bld) [Volume fraction] 42.2 % 36.0 - 48.0 % [facility] Hemoglobin (Bld) [Mass/Vol] 14 g/dL 12.0 - 16.0 g/dL [facility] IMMATURE GRANULOCYTES ABS AUTO 0.01 [facility] Immature granulocytes/100 WBC (Bld) 0.1 % 0.0 - 0.5 % [facility] Healthcare LYMPHOCYTES ABSOLUTE AUTO 2.6 [facility] Lymphocytes/100 WBC (Bld) 37.7 % 20.5 - 60.0 % [facility] MCH (RBC) [Entitic mass] 28.1 pg 26.7 - 34.0 pg [facility] MCHC (RBC) [Mass/Vol] 33.2 g/dL 29.9 - 35.2 g/dL [facility] MCV (RBC) [Entitic vol] 84.6 fL 81.0 - 99.0 fL [facility] MONOCYTES ABSOLUTE AUTO 0.4 [facility] Monocytes/100 WBC (Bld) 5.9 % 1.7 - 12.0 % [facility] NEUTROPHILS ABSOLUTE AUTO 3.6 [facility] [...] [facility] Office Visiton 12-25-2023 Follow-up visit [id number] Javid Prasad 1990 F Date Provider Department Center 12/25/2023 [facility]IANA WALTER [facility] Family History Problem Relation Age of Onset Atrial fibrillation Mother Diabetes Father Kidney disease Father Heart attack Maternal Grandmother Family Status - Relation Status Age at Mother Father Maternal Grandmother Level of Service:88092 [place] OFFICE/OUTPATIENT ESTABLISHED LOW MDM 20 MIN Normal [facility] Cytology Cervical or vaginal smear or [...] She can be sleepy during the day. Carroll Sleepiness Scale score: 12. She is sleepy [...] her clinical (more content not included)... Normal [facility] [place] CT HEAD WO CONon 12-21-2021 CT [...] CARLOS GALE Date: 2021-12-21 07:15 Normal [facility] CT TEMPORAL BONES WO CONon 0 [...] foramen are normal. Visualized paranasal sinuses clear. Instructor Knitting spaces normal. Orbital contents unremarkable. Posterior fossa structures normal. IMPRESSION: Normal CT of the temporal bones. Electronically authenticated by: LOUIS BRAY Date: 2021-12-21 16:11 Normal [facility] Comprehensive Metabolic Empo n 05-10-2021 Albumin [Mass/Vol] 4.1 g/dL Normal 3.2-5.5 [facility] Comment on above: Performed By: #### E BS LIPID, EBS A1C, EBS CMP #### [facility] [address] [id number] [place] Albumin/Globulin [Mass ratio] 1.3 {ratio} Normal [facility] Comment on above: Performed By: #### E BS LIPID, EBS A1C, EBS CMP #### [facility] [address] [place] [address] [place] ALP [Catalytic activity/Vol] 77 U/L Normal 32-92 [facility] Comment on above: Performed By: #### E BS LIPID, EBS A1C, EBS CMP #### [facility] [address] [id number] [place] ALT [Catalytic activity/Vol] 19 U/L Normal 10-60 [facility] Comment on above: Performed By: #### E BS LIPID, EBS A1C, EBS CMP #### [facility] [address] [id number] [place] AST [Catalytic activity/Vol] 18 U/L Normal 10-42 [facility] Comment on above: Performed By: #### E BS LIPID, EBS A1C, EBS CMP #### [facility] [address] [id number] [place] Bilirubin [Mass/Vol] 0.3 mg/dL Normal 0.3-1.2 [facility] Comment on above: Performed By: #### E BS LIPID, EBS A1C, EBS CMP #### [facility] [address] [place] [address] [place] Calcium [Mass/Vol] 9.2 mg/dL Normal 8.2-10.2 [facility] Comment on above: Performed By: #### E BS LIPID, EBS A1C, EBS CMP #### [facility] [address] [place] [address] [place] Chloride [Moles/Vol] 104 mmol/L Normal 95-114 [facility] Comment on above: Performed By: #### E BS LIPID, EBS A1C, EBS CMP #### [facility] [address] [id number] [place] CO2 [Moles/Vol] 24.1 mmol/L Normal 22.0-30.0 [facility] Comment on above: Performed By: #### E BS LIPID, EBS A1C, EBS CMP #### [facility] [address] [id number] [place] Creatinine [Mass/Vol] 0.69 mg/dL Normal 0.44-1.03 [facility] Comment on above: Performed By: #### E BS LIPID, EBS A1C, EBS CMP #### [facility] [address] [id number] [place] Estimated GFR ( Liz > 60 Normal [facility] Comment on above: Result Comment: GFR estimated reference range: According to KDOQI guidelines, <60 ml/min/1.73m2 is sufficient to diagnose a patient with chronic kidney disease. Performed By: #### E BS LIPID, EBS A1C, EBS CMP #### [facility] [address] [place] [address] [place] Estimated GFR (Non- Am > 60 Normal [facility] Comment on above: Performed By: #### E BS LIPID, EBS A1C, EBS CMP #### [facility] [address] Globulin (S) [Mass/Vol] 3.1 g/dL Normal [facility] Comment on above: Performed By: #### E BS LIPID, EBS A1C, EBS CMP #### [facility] [address] [place] [address] Glucose [Mass/Vol] 106 mg/dL High 70-100 [facility] Comment on above: Result Comment: ADA recommended reference range Performed By: #### E BS LIPID, EBS A1C, EBS CMP #### [address] Potassium [Moles/Vol] 4.0 mmol/L Normal 3.5-5.1 [facility] Comment on above: Performed By: #### E BS LIPID, EBS A1C, EBS CMP #### [place] [address] [place] Protein [Mass/Vol] 7.2 g/dL Normal 6.1-7.9 [facility] Comment on above: Performed By: #### E BS LIPID, EBS A1C, EBS CMP #### [facility] [address] [place] [address] [place] Sodium [Moles/Vol] 137 mmol/L Normal 136-146 [facility] Comment on above: Performed By: #### E BS LIPID, EBS A1C, EBS CMP #### [place] [facility] [address] [place] [address] [place] Urea nitrogen [Mass/Vol] 10 mg/dL Normal 9-23 [facility] Comment on above: Performed By: #### E BS LIPID, EBS A1C, EBS CMP #### [facility] [address] [id number] [facility] EBS A1C with Estimated [employer] hayes 05-10-2021 Glucose [Mass/Vol] 111 mg/dL Normal [facility] Comment on above: Result Comment: PERF ORMED BY: [address] [place] [address] PATHOLOGIST [employer] JERRY RAMSEY M.D. Performed By: #### E BS LIPID, EBS A1C, EBS CMP #### [facility] [address] [id number] [facility] HbA1c (Bld) [Mass fraction] 5.5 % Normal 4.3-5.6 [facility] Comment on above: Result Comment: Incr eased risk for diabetes: 5.7 - 6.4 diabetes: >6.4 glycemic control for adults with diabetes: <7.0 Performed By: #### E BS LIPID, EBS A1C, EBS CMP #### [facility] [address] [id number] [facility] Lipid Profileon 05-10-2021 Cholesterol [Mass/Vol] 202 mg/dL High 140-200 [facility] Comment on above: Result Comment: Chol less than 200 mg/dl low risk Chol 201-239 mg/dl borderline risk Chol 240 mg/dl and greater high risk Performed By: #### E BS LIPID, EBS A1C, EBS CMP #### [facility] [address] [id number] [facility] Cholesterol in HDL [Mass/Vol] 37 mg/dL Normal 35-85 [facility] Comment on above: Result Comment: HDL CHOL ATP-III CLASSIFICATION Cardiovascular Risk HDL > or equal to 60 mg/dL LOW HDL < 40 mg/dL HIGH Performed By: #### E BS LIPID, EBS A1C, EBS CMP #### [facility] [address] [id number] [facility] Cholesterol.total/Cho lesterol in HDL [Mass ratio] 5.5 {ratio} Normal <5.0 [facility] Comment on above: Result Comment: PERF ORMED BY: [facility] [address] [facility] [place] [address] PATHOLOGIST [employer] JERRY RAMSEY M.D. Performed By: #### E BS LIPID, EBS A1C, EBS CMP #### [facility] [address] [place] [address] [place] LDL Cholesterol,Calculate d 125 mg/dL High 0-100 [facility] Comment on above: Result Comment: LDL ATP III CLASSIFICATION LDL less than 100 mg/dL Optimal LDL 100-129 mg/dL Near or above optimal LDL 130-159 mg/dL Borderline high LDL 160-189 mg/dL High LDL greater than 189 mg/dL Very high Performed By: #### E BS LIPID, EBS A1C, EBS CMP #### [facility] [address] Triglyceride w/Reflex 199 mg/dL High 35-149 [facility] Comment on above: Result Comment: TRIG ATP III CLASSIFICATION TRIG less than 150 mg/dL Normal TRIG 150-199 mg/dL Borderline high TRIG 200-500 mg/dL High TRIG greater than 500 mg/dL Very high Standard traceable to the Center for Disease Conrtrol and Prevention (CDC) test method. Performed By: #### E BS LIPID, EBS A1C, EBS CMP #### [facility] [address] [id number] [facility] VLDL CHOLESTEROL 39 mg/dL Normal [facility] Comment on above: Performed By: #### E BS LIPID, EBS A1C, EBS CMP #### [facility] [address] [id number] [facility] Vital Signs Date Time Vital Sign Value Performing Clinician Ronaldo coello 12-02-2024 08:57-0400 Body mass index (BMI) [Ratio] 39.3 kg/m2 [employer] DO Work Phone: [facility] 12-02-2024 08:57-0400 Body weight 131.45 kg [employer] DO Work Phone: [facility] 12-02-2024 08:57-0400 Diastolic blood pressure 76 mm[Hg] [employer] DO Work Phone: [facility] 12-02-2024 08:57-0400 Systolic blood pressure 114 mm[Hg] [employer] DO Work Phone: [facility] 11-28-2024 11:44-0400 Body height 182.9 cm Saul Granados MD Work Phone: [facility] 11-28-2024 11:44-0400 Body mass index (BMI) [Ratio] 38.9 kg/m2 Saul Granados MD Work Phone: [facility] 11-28-2024 11:44-0400 Body weight 130.09 kg Saul Granados MD Work Phone: [facility] 11-28-2024 11:44-0400 Diastolic blood pressure 60 mm[Hg] Saul Granados MD Work Phone: [facility] 11-28-2024 11:44-0400 Heart rate 96 /min Saul Granados MD Work Phone: [facility] 11-28-2024 11:44-0400 Systolic blood pressure 114 mm[Hg] Saul Granados MD Work Phone: [facility] 11-18-2024 09:04-0400 Body mass index (BMI) [Ratio] 38.52 kg/m2 Miguel Riddhi DO Work Phone: [facility] 11-18-2024 09:04-0400 Body weight 128.82 kg Miguel Riddhi DO Work Phone: [facility] 11-18-2024 09:04-0400 Diastolic blood pressure 70 mm[Hg] Miguel Riddhi DO Work Phone: [facility] 11-18-2024 09:04-0400 Systolic blood pressure 112 mm[Hg] Miguel Riddhi DO Work Phone: [facility] 11-03-2024 15:07-0400 Body mass index (BMI) [Ratio] 38.63 kg/m2 Miguel Riddhi DO Work Phone: [facility] 11-03-2024 15:07-0400 Body weight 129.18 kg Miguel Riddhi DO Work Phone: [facility] 11-03-2024 15:07-0400 Diastolic blood pressure 74 mm[Hg] Miguel Riddhi DO Work Phone: [facility] 11-03-2024 15:07-0400 Systolic blood pressure 110 mm[Hg] Miguel Riddhi DO Work Phone: [facility] 10-21-2024 08:41-0400 Body mass index (BMI) [Ratio] 38.44 kg/m2 Maureen [place] PA Work Phone: [facility] 10-21-2024 08:41-0400 Body weight 128.55 kg Maureen Paula PA Work Phone: [facility] 10-21-2024 08:41-0400 Diastolic blood pressure 78 mm[Hg] Maureen Paula PA Work Phone: [facility] 10-21-2024 08:41-0400 Systolic blood pressure 124 mm[Hg] Maureen Paula PA Work Phone: [facility] 09-16-2024 09:49-0400 Body mass index (BMI) [Ratio] 37.57 kg/m2 Miguel Riddhi DO Work Phone: [facility] 09-16-2024 09:49-0400 Body weight 125.65 kg Miguel Riddhi DO Work Phone: [facility] 09-16-2024 09:49-0400 Diastolic blood pressure 76 mm[Hg] Miguel Riddhi DO Work Phone: [facility] 09-16-2024 09:49-0400 Systolic blood pressure 126 mm[Hg] Miguel Riddhi DO Work Phone: [facility] 08-19-2024 14:52-0400 Body mass index (BMI) [Ratio] 37.57 kg/m2 Maureen Paula PA Work Phone: [facility] 08-19-2024 14:52-0400 Body weight 125.65 kg Maureen Paula PA Work Phone: [facility] 08-19-2024 14:52-0400 Diastolic blood pressure 78 mm[Hg] Maureen [place] PA Work Phone: [facility] 08-19-2024 14:52-0400 Systolic blood pressure 128 mm[Hg] Maureen Paula PA Work Phone: [facility] 07-22-2024 09:47-0400 Body mass index (BMI) [Ratio] 37.3 kg/m2 Miguel Riddhi DO Work Phone: [facility] 07-22-2024 09:47-0400 Body weight 124.74 kg Miguel Riddhi DO Work Phone: [facility] 07-22-2024 09:47-0400 Diastolic blood pressure 86 mm[Hg] Miguel Riddhi DO Work Phone: [facility] 07-22-2024 09:47-0400 Systolic blood pressure 130 mm[Hg] Miguel Riddhi DO Work Phone: [facility] 02-19-2024 14:07-0500 Body mass index (BMI) [Ratio] 37.95 kg/m2 Maureen Feliz PA Work Phone: [facility] 02-19-2024 14:07-0500 Body weight 126.92 kg Maureen Paula PA Work Phone: [facility] 02-19-2024 14:07-0500 Diastolic blood pressure 74 mm[Hg] Maureen Feliz PA Work Phone: [facility] 02-19-2024 14:07-0500 Systolic blood pressure 114 mm[Hg] Maureen Feliz PA Work Phone: [facility] 01-16-2024 16:38-0400 Body height 182.9 cm Miguel Riddhi DO Work Phone: [facility] 01-16-2024 16:38-0400 Body mass index (BMI) [Ratio] 37.57 kg/m2 Miguel Riddhi DO Work Phone: [facility] 01-16-2024 16:38-0400 Body weight 125.65 kg Miguel Riddhi DO Work Phone: [facility] 01-16-2024 16:38-0400 Diastolic blood pressure 80 mm[Hg] Miguel Riddhi DO Work Phone: [facility] 01-16-2024 16:38-0400 Systolic blood pressure 124 mm[Hg] Miguel Riddhi DO Work Phone: [facility] 12-25-2023 10:12-0400 Body height 182.9 cm Miguel Riddhi DO Work Phone: [facility] 12-25-2023 10:12-0400 Body mass index (BMI) [Ratio] 37.57 kg/m2 Miguel Riddhi DO Work Phone: [facility] 12-25-2023 10:12-0400 Body weight 125.65 kg Miguel Riddhi DO Work Phone: [facility] 12-25-2023 10:12-0400 Diastolic blood pressure 84 mm[Hg] Miguel Riddhi DO Work Phone: [facility] 12-25-2023 10:12-0400 Systolic blood pressure 122 mm[Hg] Miguel Riddhi DO Work Phone: [facility] Healthcare Encounters Encounter Date Encounter Type Care Provider Facility Start: 12-02-2024 End: 12-02-2024 Bamboo flowsheet Miguel Riddhi DO Work Phone: [facility] Start: 12-02-2024 End: 12-02-2024 Bamboo flowsheet Miguel Riddhi DO Work Phone: [facility] Start: 12-02-2024 End: 12-02-2024 flow sheet Miguel Riddhi DO Work Phone: [facility] Comment on above: Third trimester preg shayla ([facility]); 33 weeks gestation of ([facility]); Gestational diabetes mellitus (GDM), antepartum, gestational diabetes method of control unspecified ([facility]) Start: 11-28-2024 End: 11-28-2024 Office outpatient new 45 minutes Saul Granados MD Work Phone: [facility] Comment on above: Insulin controlled g estational diabetes mellitus (GDM) in third trimester (Primary Dx); Prediabetes in mother during ; Family history of type 2 diabetes mellitus; Obesity affecting , antepartum, unspecified obesity type; 32 weeks gestation of Start: 11-28-2024 End: 11-28-2024 ambulatory [facility] Start: 11-27-2024 End: 11-27-2024 Clinisync Result Encounter Miguel Riddhi DO Work Phone: [facility] Unsolicited Start: 11-27-2024 End: 11-27-2024 Clinisync Result Encounter Miguel Riddhi DO Work Phone: [facility] Unsolicited Start: 11-26-2024 End: 11-26-2024 Documentation procedure Yojana Diehl RN [facility] [facility] Start: 11-26-2024 End: 11-26-2024 Telephone encounter Yojana Diehl RN Maternal- Medicine at [facility] Start: 11-25-2024 End: 11-25-2024 Telephone encounter Naomie LUQUE Work Phone: Maternal- Medicine at [facility] Start: 11-24-2024 End: 11-24-2024 Chart abstracting Scanning Provider External Maternal- Medicine at [facility] Start: 11-20-2024 End: 11-20-2024 ambulatory MIGUEL R RIDDHI [facility] Start: 11-18-2024 End: 11-18-2024 Bamboo flowsheet Miguel Riddhi DO Work Phone: [facility] Start: 11-18-2024 End: 11-18-2024 Bamboo flowsheet Miguel Riddhi DO Work Phone: [facility] Start: 11-18-2024 End: 11-18-2024 ambulatory MIGUEL RIDDHI Not Available Start: 11-18-2024 End: 11-18-2024 flow sheet Miguel Riddhi DO Work Phone: [facility] Comment on above: Third trimester preg shayla ([facility]); 31 weeks gestation of ([facility]); Gestational diabetes mellitus (GDM), antepartum, gestational diabetes method of control unspecified ([facility]) Start: 11-14-2024 End: 11-14-2024 Clinisync Result Encounter Miguel Riddhi DO Work Phone: [facility] External Department Unsolicited Start: 11-14-2024 End: 11-14-2024 Clinisync Result Encounter Miguel Riddhi DO Work Phone: [facility] Unsolicited Start: 11-13-2024 End: 11-13-2024 Chart abstracting Generic External Data Provider Maternal- Medicine at [facility] Start: 11-12-2024 [facility] Start: 11-10-2024 End: 11-10-2024 Clinisync Result Encounter Miguel Riddhi DO Work Phone: [facility] Unsolicited Start: 11-10-2024 End: 11-10-2024 Clinisync Result Encounter Miguel Riddhi DO Work Phone: [facility] Unsolicited Start: 11-03-2024 End: 11-03-2024 flow sheet Miguel Riddhi DO Work Phone: [facility] Comment on above: 29 weeks gestation o f ([facility]); Third trimester ([facility]) Start: 11-03-2024 End: 11-03-2024 ambulatory MIGUEL RIDDHI Not Available Start: 11-03-2024 End: 11-03-2024 Bamboo flowsheet Miguel Riddhi DO Work Phone: [facility] Start: 11-03-2024 End: 11-03-2024 Bamboo flowsheet Miguel Riddhi DO Work Phone: [facility] Start: 10-31-2024 End: 10-31-2024 Clinisync Result Encounter Maureen SINGLETON Work Phone: [facility] External Department Unsolicited Start: 10-31-2024 End: 10-31-2024 Clinisync Result Encounter Maureen SINGLETON Work Phone: [facility] External Department Unsolicited Start: 10-21-2024 End: 10-21-2024 Bamboo flowsheet Maureen SINGLETON Work Phone: [facility] Start: 10-21-2024 End: 10-21-2024 Bamboo flowsheet Maureen SINGLETON Work Phone: [facility] Start: 10-21-2024 End: 10-21-2024 ambulatory [facility] Start: 10-21-2024 End: 10-21-2024 flow sheet Maureen SINGLETON Work Phone: [facility] Comment on above: Size of fetus incons istent with dates in second trimester ([facility]) (Primary Dx); Second trimester ([facility]); 27 weeks gestation of ([facility]) Start: 10-21-2024 End: 10-21-2024 ambulatory MAUREEN FELIZ Not Available Start: 09-16-2024 End: 09-16-2024 ambulatory MIGUEL RIDDHI Not Available Start: 09-16-2024 End: 09-16-2024 flow sheet Miguel Riddhi DO Work Phone: [facility] Comment on above: Second trimester pre gnancy; 22 weeks gestation of ; Elevated glucose tolerance test Start: 09-16-2024 End: 09-16-2024 ambulatory MIGUEL RIDDHI Not Available Start: 09-02-2024 ambulatory [facility] Start: 08-23-2024 End: 08-23-2024 Clinisync Result Encounter Maureen SINGLETON Work Phone: [facility] External Department Unsolicited Start: 08-23-2024 End: 08-23-2024 Clinisync Result Encounter Maureen SINGLETON Work Phone: [facility] External Department Unsolicited Start: 08-19-2024 End: 08-19-2024 flow sheet Maureen SINGLETON Work Phone: [facility] Comment on above: Exposure to STD; Second trimester ; 18 weeks gestation of ; Need for maternal serum alpha-protein (MSAFP) screening; Screening, , for anatomic survey; Elevated glucose tolerance test Start: 08-19-2024 End: 08-19-2024 ambulatory MAUREEN FELIZ Not Available Start: 08-19-2024 End: 08-19-2024 Clinisync Result Encounter Miguel Riddhi DO Work Phone: [facility] External Department Unsolicited Start: 08-19-2024 End: 08-20-2024 Clinisync Result Encounter Miguel Riddhi DO Work Phone: [facility] External Department Unsolicited Start: 08-19-2024 End: 08-20-2024 External Result Encounter Maureen SINGLETON Work Phone: [facility] External Department Unsolicited Start: 07-22-2024 End: 07-22-2024 Bamboo flowsheet Miguel Riddhi DO Work Phone: [facility] Start: 07-22-2024 End: 07-22-2024 Bamboo flowsheet Miguel Riddhi DO Work Phone: [facility] Start: 07-22-2024 End: 07-22-2024 flow sheet Miguel Riddhi DO Work Phone: [facility] Comment on above: Second trimester pre gnancy; 14 weeks gestation of ; Diabetes mellitus screening Start: 07-22-2024 End: 07-22-2024 ambulatory MIGUEL RIDDHI Not Available Start: 07-15-2024 End: 07-15-2024 Clinisync Result Encounter Miguel Riddhi DO Work Phone: [facility] External Department Unsolicited Start: 07-15-2024 End: 07-15-2024 Clinisync Result Encounter Miguel Riddhi DO Work Phone: [facility] External Department Unsolicited Start: 06-26-2024 ambulatory [facility] Start: 06-19-2024 End: 06-19-2024 ambulatory MIGUEL MATTSONO Not Available Start: 05-21-2024 ambulatory [facility] Start: 05-20-2024 End: 05-20-2024 Clinisync Result Encounter Miguel Riddhi DO Work Phone: [facility] Unsolicited Start: 05-20-2024 End: 05-20-2024 Clinisync Result Encounter Miguel Riddhi DO Work Phone: [facility] Unsolicited Start: 05-17-2024 End: 05-17-2024 Clinisync Result Encounter Miguel Riddhi DO Work Phone: [facility] Department Unsolicited Start: 05-17-2024 End: 05-17-2024 Clinisync Result Encounter Miguel Riddhi DO Work Phone: [facility] Unsolicited Start: 04-21-2024 ambulatory [facility] Start: 04-14-2024 ambulatory [facility] Start: 03-07-2024 [facility] Start: 02-25-2024 ambulatory [facility] Start: 02-19-2024 End: 02-19-2024 Bamboo flowsheet Maureen SINGLETON Work Phone: [facility] Start: 02-19-2024 End: 02-19-2024 Bamboo flowsheet Maureen SINGLETON Work Phone: [facility] Start: 02-19-2024 End: 02-19-2024 Postop follow up visit related to original px Maureen SINGLETON Work Phone: [facility] Comment on above: Postop check Start: 02-19-2024 End: 02-19-2024 ambulatory MAUREEN FELIZ Not Available Start: 02-14-2024 ambulatory [facility] Start: 02-08-2024 End: 02-08-2024 Clinisync Result Encounter Miguel Riddhi DO Work Phone: [facility] Unsolicited Start: 02-08-2024 End: 02-08-2024 Clinisync Result Encounter Miguel Riddhi DO Work Phone: [facility] Unsolicited Start: 01-30-2024 End: 01-30-2024 Clinisync Result Encounter Miguel Riddhi DO Work Phone: [facility] Department Unsolicited Start: 01-30-2024 End: 01-30-2024 Clinisync Result Encounter Miguel Riddhi DO Work Phone: [facility] Department Unsolicited Start: 01-16-2024 ambulatory [facility] Start: 01-16-2024 End: 01-16-2024 Office outpatient visit 15 minutes Miguel Riddhi DO Work Phone: [facility] Comment on above: Pre-op examination; Uterine leiomyoma, unspecified location Start: 01-16-2024 End: 01-16-2024 Preprocedural examination done Miguel Riddhi DO Work Phone: [facility] Start: 01-16-2024 End: 01-16-2024 ambulatory MIGUEL RIDDHI Not Available Start: 01-16-2024 End: 01-16-2024 Bamboo flowsheet Miguel Riddhi DO Work Phone: [facility] Start: 01-16-2024 End: 01-16-2024 Bamboo flowsheet Miguel Riddhi DO Work Phone: [facility] Start: 12-25-2023 End: 12-25-2023 Bamboo flowsheet Miguel Riddhi DO Work Phone: [facility] Start: 12-25-2023 End: 12-25-2023 Bamboo flowsheet Miguel Riddhi DO Work Phone: [facility] Start: 12-25-2023 End: 12-25-2023 Office outpatient visit 15 minutes Miguel Riddhi DO Work Phone: [facility] Comment on above: Female infertility; PCOS (polycystic ovarian syndrome); Dysfunctional uterine bleeding Start: 12-25-2023 End: 12-25-2023 ambulatory MIGUELNaty MATTSONO Not Available Start: 12-11-2023 End: 12-11-2023 Clinisync Result Encounter Aristides Araiza DO Work Phone: [facility] Unsolicited Start: 12-11-2023 End: 12-11-2023 Clinisync Result Encounter Aristides Araiza DO Work Phone: [facility] Unsolicited Start: 12-12-2022 End: 12-15-2022 ambulatory EMEKANEYDA FORDFRANSISCA [facility] Start: 06-19-2022 End: 06-20-2022 ambulatory Isabella Raygoza APRN-CHANNEL MARKETING MANAGER Facility:[facility] Start: 05-30-2022 End: 05-31-2022 ambulatory Adebayo Latham DO Facility:[facility] Start: 05-16-2022 End: 05-17-2022 ambulatory Iasbella Raygoza APRN-CHANNEL MARKETING MANAGER Facility:[facility] Start: 12-20-2021 End: 12-21-[address] ADEBAYO SOLARES Facility:[facility] Start: 11-15-2021 End: 11-16-[address] ADEBAYO SOLARES Facility:[facility] Procedures Date Procedure Procedure Detail Performing Clinician Start: 12-02-2024 Urnls dip stick/tabl et rgnt non-auto w/o micrscp Miguel Riddhi DO Work Phone: Start: 11-28-2024 Hemoglobin glycosyla jasbir a1c Saul Granados MD Work Phone: Start: 11-27-2024 US OB BPP W NON-STRESS Miguel Riddhi DO Work Phone: Start: 11-20-2024 End: 11-20-2024 Nonphysician online assessment and management Gestational diabetes mellitus (GDM) in second trimester, gestational diabetes method of control unspecified Miroslava Trinidad RN Work Phone: Comment on above: Gestational diabetes mellitus (GDM) in second trimester, gestational diabetes method of control unspecified Start: 11-18-2024 Urnls dip stick/tabl et rgnt non-auto w/o micrscp Miguel Riddhi DO Work Phone: Start: 11-14-2024 US OB INCOMPLETE ANATOMY Miguel Riddhi DO Work Phone: Start: 11-10-2024 GLUCOSE TOLERANCE 3 HOUR Miguel Riddhi DO Work Phone: Start: 11-03-2024 Urnls dip stick/tabl et rgnt non-auto w/o micrscp Miguel Riddhi DO Work Phone: Start: 10-31-2024 US OB GROWTH Maureen SINGLETON Work Phone: Start: 10-21-2024 Urnls dip stick/tabl et rgnt non-auto w/o micrscp Maureen SINGLETON Work Phone: Start: 09-16-2024 Urnls dip stick/tabl et rgnt non-auto w/o micrscp Miguel Riddhi DO Work Phone: Start: 08-23-2024 GLUCOSE TOLERANCE 3 HOUR Maureen SINGLETON Work Phone: Start: 08-19-2024 RECURRENT VAGINITIS (HTRX) Maureen SINGLETON Work Phone: Start: 08-19-2024 Urnls dip stick/tabl et rgnt non-auto w/o micrscp Maureen SINGLETON Work Phone: Start: 08-19-2024 GLUCOSE 1 HOUR Miguel Fa zio DO Work Phone: Start: 07-22-2024 Urnls dip stick/tabl et rgnt non-auto w/o micrscp Miguel Riddhi DO Work Phone: Start: 07-15-2024 Antibody rubella Not In System Ref Prov Start: 07-15-2024 Antibody screen Generic Provider Start: 07-15-2024 Basic metabolic pane l calcium total Miguel R Riddhi DO Work Phone: Start: 07-15-2024 CBC W Auto Different ial panel - Blood Miguel R Riddhi DO Work Phone: Start: 07-15-2024 [...] Start: 02-08-2024 ALL CBC WITH AUTO DIFF Miguel Riddhi DO Work Phone: Start: 01-30-2024 ALL CBC WITH AUTO DIFF Miguel Riddhi DO Work Phone: Start: 12-13-2023 Microscopic observat ion [Identifier] in Cervix by Cyto stain Maureen SINGLETON Work Phone: Start: 12-13-2023 Cytp cerv/vag auto t hin layer prep mnl screen Miguel Riddhi DO Work Phone: Start: 12-11-2023 HCG QUALITATIVE* Aristides hunter DO Work Phone: Start: 05-17-2012 Microscopic observat ion [Identifier] in Cervix by Cyto stain Aristides Araiza DO Work Phone: Plan of Treatment Date Care Activity Detail Author Start: 01-25-2030 DTaP,Tdap and Td Vaccines (7 - Td or Tdap) DTaP,Tdap and Td Vaccines (7 - Td or Tdap) [facility] Start: 12-12-2028 Screening for malign ant neoplasm of cervix [facility] Start: 12-12-2026 Screening for malign ant neoplasm of cervix Pap Smear [facility] Start: 11-28-2025 Adult BMI Screening Adult BMI Screen ing [facility] Start: 11-28-2025 Tobacco Screening Tobacco Screening [facility] Start: 01-06-2025 End: 01-06-2025 Patient encounter procedure 01/06/2025 9:10 AM EDT Routine [facility] [address] [place] [phone] Miguel Hannon, DO [address] [place] [address] [facility] Start: 12-30-2024 End: 12-30-2024 Patient encounter procedure 12/30/2024 8:30 AM EDT Routine [facility] [address] [place] [phone] Maureen Feliz PA [address] [place] [address] [facility] Start: 12-23-2024 End: 12-23-2024 Patient encounter procedure 12/23/2024 11:30 AM EDT Routine [facility] [address] [place] [address] Miguel Hannon, DO [address] [place] [address] [facility] Start: 12-18-2024 End: 12-18-2024 Telemedicine consultation with patient 12/18/2024 8:00 AM EDT Telemedicine Maternal- Medicine at [address] [place] [address] Hanny Ware, ROUTER TENDER-CHANNEL MARKETING MANAGER [address] [place] [address] Maternal- Medicine at [facility] Start: 12-16-2024 End: 12-16-2024 Patient encounter procedure 12/16/2024 1:10 PM EDT Routine [facility] [address] [place] [address] Maureen Feliz PA [address] [facility] [place] [address] [facility] Start: 12-15-2024 Influenza vaccination [facility] Start: 12-11-2024 End: 12-11-2024 Patient encounter procedure 12/11/2024 1:00 PM EDT Appointment [facility] [place] [address] [facility] [address] [place] [phone] [facility] Start: 12-02-2024 End: 12-02-2024 Patient encounter procedure JOSY HERNANDEZ Comment on above: Arrived Start: 11-20-2024 End: 11-20-2024 Telemedicine consultation with patient 11/20/2024 10:30 AM EDT Telemedicine Maternal- Medicine at [facility] [address] [place] [phone] Miroslava Trinidad RN [address] [address] Juli Quezada LD Karl, Deborah, LD [address] [place] [address] Maternal- Medicine at [facility] Start: 11-18-2024 End: 05-21-2025 US biophysical profile w non stress test US biophysical profile w non stress test Imaging Routine Gestational diabetes mellitus (GDM), antepartum, gestational diabetes method of control unspecified ([facility]) Expected: 11/18/2024 (Approximate), Expires: 05/21/2025 [facility] Work Phone: Comment on above: Expected: 11/18/2024 (Approximate), Expires: 05/21/2025 Start: 11-18-2024 End: 11-18-2024 Patient encounter procedure 11/18/2024 8:50 AM EDT Routine [facility] [address] [place] [address] Miguel Hannon DO [address] [place], [place] [id number] [facility] Start: 11-03-2024 End: 11-03-2024 Patient encounter procedure [facility] Comment on above: Arrived Start: 11-03-2024 End: 11-03-2024 Professional / ancillary services management 11/03/2024 2:00 PM EDT Ancillary Procedure [facility] [address] [place] [address] [facility] Start: 10-21-2024 End: 02-21-2025 US for US OB follow up transabdominal approach Imaging Routine Size of fetus inconsistent with dates in second trimester ([facility]) Expected: 10/21/2024, Expires: 02/21/2025 [facility] Work Phone: Comment on above: Expected: 10/21/2024 , Expires: 02/21/2025 Start: 10-21-2024 End: 10-21-2024 Patient encounter procedure [facility] Comment on above: Arrived Start: 09-16-2024 End: 09-16-2025 Measurement of glucose 3 hours after glucose challenge for glucose tolerance test Glucose tolerance, 3 hours Lab Routine Elevated glucose tolerance test Expected: 09/16/2024 (Approximate), Expires: 09/16/2025 [facility] Work Phone: Comment on above: Expected: 09/16/2024 (Approximate), Expires: 09/16/2025 Start: 09-16-2024 End: 09-16-2024 Patient encounter procedure 09/16/2024 9:30 AM EDT Routine [facility] [address] [place] [phone] Miguel Hannon DO [address] [place] [address] [facility] Start: 09-16-2024 End: 09-16-2024 Professional / ancillary services management 09/16/2024 8:30 AM EDT Ancillary Procedure [facility] [address] [place] [phone] [facility] Start: 08-19-2024 End: 08-19-2024 Patient encounter procedure 08/19/2024 2:20 PM EDT Routine [facility] [address] [place] [phone] Maureen Feliz PA [address] [facility] [place] [address] [facility] Start: 08-19-2024 End: 09-19-2024 Alpha fetoprotein, maternal Alpha fetoprotein, maternal Lab Routine Need for maternal serum alpha-protein (MSAFP) screening Expected: 08/19/2024 (Approximate), Expires: 09/19/2024 [facility] Comment on above: Expected: 08/19/2024 (Approximate), Expires: 09/19/2024 Start: 08-19-2024 End: 08-19-2025 Measurement of glucose 3 hours after glucose challenge for glucose tolerance test Glucose tolerance, 3 hours Lab Routine Elevated glucose tolerance test Expected: 08/19/2024 (Approximate), Expires: 08/19/2025 [facility] Comment on above: Expected: 08/19/2024 (Approximate), Expires: 08/19/2025 Start: 08-19-2024 End: 11-19-2024 US for US OB 14+ weeks anatomy scan Imaging Routine Screening, , for anatomic survey Expected: 08/19/2024, Expires: 11/19/2024 [facility] Comment on above: Expected: 08/19/2024 , Expires: 11/19/2024 Start: 07-22-2024 End: 07-22-2025 Measurement of glucose 1 hour after glucose challenge for glucose tolerance test Glucose tolerance, 1 hour Lab Routine Diabetes mellitus screening Expected: 07/22/2024 (Approximate), Expires: 07/22/2025 [facility] Work Phone: Comment on above: Expected: 07/22/2024 (Approximate), Expires: 07/22/2025 Start: 07-22-2024 End: 07-22-2024 Patient encounter procedure [facility] Comment on above: Arrived Start: 06-19-2024 End: 06-19-2024 ambulatory 06/19/2024 2:30 PM EST Initial [facility] [address] [place] [phone] [facility] Start: 06-19-2024 End: 06-19-2024 Professional / ancillary services management 06/19/2024 2:00 PM EST Ancillary Procedure [facility] [address] [place] [address] [facility] Start: 02-19-2024 End: 02-19-2024 Patient encounter procedure 02/19/2024 1:40 PM EST Office Visit [facility] [address] [place] [phone] Maureen Feliz PA [address] [place], [place] [phone] Arrived [facility] Comment on above: Arrived Start: 01-16-2024 End: 01-16-2024 Patient encounter procedure 01/16/2024 4:00 PM EDT Consult [facility] [address] [place] [address] Miguel Hannon, [address] [place], [place] [phone] Arrived [facility] Comment on above: Arrived Start: 12-25-2023 End: 2024 Antimullerian hormone (AMH) Antimullerian hormone (AMH) Lab Routine Female infertility PCOS (polycystic ovarian syndrome) Dysfunctional uterine bleeding Expected: 12/25/2023 (Approximate), Expires: 2024 [facility] Comment on above: Expected: 12/25/2023 (Approximate), Expires: 2024 Start: 12-25-2023 End: 2024 DHEA DHEA Lab Routine PCOS (polycystic ovarian syndrome) Expected: 12/25/2023 (Approximate), Expires: 2024 [facility] Comment on above: Expected: 12/25/2023 (Approximate), Expires: 2024 Start: 12-25-2023 End: 12-25-2023 Patient encounter procedure [facility] Comment on above: Arrived Start: 12-16-2023 Influenza vaccination Influenza Vacc ine (#1) [facility] Start: 12-11-2023 End: 12-11-2023 Patient encounter procedure 12/11/2023 8:00 AM EDT Procedure Visit [facility] Aristides Araiza DO [address] [facility] [address] [place] [phone] [facility] Start: 05-17-2017 Screening for malign ant neoplasm of cervix [facility] Start: 12-23-2012 Screening for malign ant neoplasm of cervix Pap Smear [facility] Start: 12-23-2010 DTaP,Tdap and Td Vaccines (1 - Tdap) DTaP,Tdap and Td Vaccines (1 - Tdap) [facility] Start: 12-23-2009 Adult BMI Follow Up Plan Adult BMI Follow Up Plan [facility] Start: 12-23-2009 Adult BMI Screening Adult BMI Screen ing [facility] Start: 2003 Depression Screening Depression Scre ening [facility] Start: 2003 Tobacco Screening Tobacco Screening [facility] CBC W Auto Different ial panel - Blood CBC and differential Lab Routine PCOS (polycystic ovarian syndrome) Ordered: 12/25/2023 [facility] Comment on above: Ordered: 12/25/2023 CBC W Auto Different ial panel - Blood CBC and differential Lab Routine 22 weeks gestation of Elevated glucose tolerance test Ordered: 09/16/2024 [facility] Comment on above: Ordered: 09/16/2024 CHLAMYDIA TRACHOMATI S (GENITO/STI) CHLAMYDIA TRACHOMATIS (GENITO/STI) Lab Routine Exposure to STD Ordered: 08/19/2024 [facility] Comment on above: Ordered: 08/19/2024 DHEA-sulfate DHEA-sulfate Lab Routine PCOS (polycystic ovarian syndrome) Ordered: 12/25/2023 [facility] Comment on above: Ordered: 12/25/2023 Follicle stimulating hormone Follicle stimulating hormone Lab Routine PCOS (polycystic ovarian syndrome) Ordered: 12/25/2023 [facility] Comment on above: Ordered: 12/25/2023 hCG, quantitative, hCG, quantitative, Lab Routine PCOS (polycystic ovarian syndrome) Ordered: 12/25/2023 [facility] Work Phone: Comment on above: Ordered: 12/25/2023 Hemoglobin A1c/Hemoglobin.total in Blood Hemoglobin A1c Lab Routine Female infertility PCOS (polycystic ovarian syndrome) Dysfunctional uterine bleeding Ordered: 12/25/2023 [facility] Comment on above: Ordered: 12/25/2023 Human papilloma viru s DNA [Presence] in Unspecified specimen by Probe with amplification HPV DNA probe, amplified Microbiology Routine Ordered: 08/19/2024 [facility] Comment on above: Ordered: 08/19/2024 Luteinizing hormone Luteinizing hormone Lab Routine PCOS (polycystic ovarian syndrome) Ordered: 12/25/2023 [facility] Comment on above: Ordered: 12/25/2023 Neisseria gonorrhoea e DNA [Presence] in Unspecified specimen by [place] with probe detection Neisseria gonorrhea DNA probe, direct Lab Routine Exposure to STD Ordered: 08/19/2024 [facility] Comment on above: Ordered: 08/19/2024 SURESWAB(R) ADVANCED VAGINITIS PLUS, TMA SURESWAB(R) ADVANCED VAGINITIS PLUS, TMA Pathology and Cytology Routine Exposure to STD Ordered: 08/19/2024 [facility] Work Phone: Comment on above: Ordered: 08/19/2024 Thyrotropin [Units/volume] in Serum or Plasma TSH Lab Routine PCOS (polycystic ovarian syndrome) Ordered: 12/25/2023 [facility] Comment on above: Ordered: 12/25/2023 Thyroxine (T4) free [Mass/volume] in Serum or Plasma T4, free Lab Routine PCOS (polycystic ovarian syndrome) Ordered: 12/25/2023 [facility] Comment on above: Ordered: 12/25/2023 Immunizations Immunization Date Immunization Notes Care Provider Eunice martinez 01-20-2024 influenza virus vacc ine, unspecified formulation Maureen SINGLETON Work Phone: [facility] 02-12-2023 influenza virus vacc ine, unspecified formulation Aristides Araiza DO Work Phone: [facility] Payers Date Payer Category Payer Unknown [id number] 2024 [employer] - Other [id number] 2024 Unknown [id number] 2023 Blue Cross Blue Shield [id number] 2023 Unknown [id number] 2022 Unknown 2021 Self-pay 2019 Unknown [id number] 1991 Unknown [id number] 2.840.1.675841.3.579.2.593 1991 Unknown [id number] 2.16.840.1.720851.3.579.2.593 1991 Unknown [id number] 2.16.840.1.475573.3.579.2.196 1991 Unknown [id number] 2.16.840.1.424093.3.579.2.196 1991 Unknown [id number] 2.16.840.1.739411.3.579.2.196 1991 Unknown [id number] 2.16.840.1.415554.3.579.2.173 1991 Unknown [id number] 2.16.840.1.854856.3.579.2.1258 1991 Unknown [id number] 2.16.840.1.747832.3.579.2.1258 1991 Unknown [id number] 2.16.840.1.042748.3.579.2.1258 1991 Unknown [id number] 2.16.840.1.952524.3.579.2.1258 1991 Unknown [id number] 2.16.840.1.757809.3.579.2.1258 1991 Unknown [id number] 2.16.840.1.240035.3.579.2.1258 1991 Unknown [id number] 2.16.840.1.495035.3.579.2.1258 1991 Unknown [id number] 2.16.840.1.185742.3.579.2.1258 1991 Unknown [id number] 2.16.840.1.081618.3.579.2.1258 1991 Unknown [id number] 2.16.840.1.187730.3.579.2.1258 1991 Unknown [id number] 2.16.840.1.701230.3.579.2.1258 1991 Unknown [id number] 2.16.840.1.044115.3.579.2.1258 1991 Unknown [id number] 2.16.840.1.757471.3.579.2.1285 1991 Unknown [id number] 2.16.840.1.765480.3.579.2.1286 1959 Unknown [id number] Social History Date Type Detail Facility Start: 11-19-2023 End: 11-28-2024 Tobacco smoking status [facility] Never smoked tobacco [facility] Start: 11-19-2023 End: 11-28-2024 Tobacco use and exposure Smokeless tobacco non-user [facility] Start: 12-25-2023 End: 11-18-2024 Alcoholic beverage intake Lifetime non-drinker (finding) [facility] Start: 11-19-2023 End: 11-28-2024 History of Social function [facility] Start: 11-19-2023 End: 11-28-2024 Tobacco use panel [facility] Start: 1990 Sex assigned at Not on file [facility] Start: 04-26-2024 [facility] Tobacco smoking stat [facility] Tobacco smoking consumption unknown [facility] Start: 11-11-2024 Sex Female (finding) [facility] Within the past 12 months we worried whether our food would run out before we got money to buy more. Never True [facility] Start: 11-28-2024 Alcoholic beverage intake Ex-drinker (finding) [facility] Medical Equipment Procedure Code Equipment Code Equipment Origin al Text Equipment Identifier Dates 1 strip by In Vi tro route Daily Use in the morning prior to breakfast, 1 hour after each meal for a total of 4times daily. [id number] Start: 11-10-2024 End: 12-10-2024 1 each by In Vit ro route Daily Use to check FSBS four times daily [id number] Start: 11-10-2024 End: 12-10-2024 Use daily for insulin [id number] Start: 11-28-2024 Clinical Notes 06-19-2022 to 12-02-2024 Katarzyna Malagon LPN - 12/02/2024 8:40 AM Miah Barrera LPN - 11/28/2024 11:30 AM Nabila Granados MD - 11/28/2024 11:30 AM Concepcion Diehl RN - 11/26/2024 5:56 PM EDT Note Date & Type Note Facility 12-02-2024 History of Present illness Narrative Reason for Appointment: Patient ID: Javid Prasad is a 33 y.o. female who presents for Routine Visit Patient presents today for Return OB appointment. MEDICATIONS Current Outpatient Medications Medication Instructions Alcohol Swabs (Alcohol Prep Pad) 70 % pads 1 Pad, Topical, Daily, Use four times daily to check FSBS. aspirin 81 mg, Daily RT Blood Glucose Monitoring Suppl (Telnic Glucometer) w/Device kit 1 kit, Does not [...] Arthritis Father Adebayo Lara Diabetes Father Adebayo Marco Hyperlipidemia Father Adebayo [...] nursing note reviewed. Exam conducted with a sexual health physician present. Vitals: Estimated body mass index is 39.3 kg/m as calculated from the following: Height as of 01/16/24: 6'. Weight as of this encounter: 289 lb 12.8 oz. BP: 114/76 Patient's last menstrual period was 04/12/2024. ASSESSMENT & PLAN ICD-10-CM 1. Third trimester ([facility]) Z34.93 POCT urinalysis dipstick manually resulted 2. 33 weeks gestation of ([facility]) Z3A.33 POCT urinalysis dipstick manually resulted 3. Gestational diabetes mellitus (GDM), antepartum, gestational diabetes method of control unspecified ([facility]) O24.419 Continuous Glucose Sensor (Dexcom G7 Sensor) misc Return OB: Patient presents today for a routine obstetrics appointment. Patient is currently 33w3d . Patient states she is doing well but has complaints of being tired due to current . Patient has verbalizes frequent movement. labor precautions was discussed/given and patient was instructed to perform kick counts three times a day. Pt to have repeat anatomy scan at [facility] on 12/11. Discussed delivery between 37-39 weeks d/t being on Lantus. Orders Placed This Encounter Procedures POCT urinalysis dipstick manually resulted Follow Up: Patient is to return to office in 2 week for routine OB appointment. Documented by Katarzyna Malagon LPN on behalf of: Miguel Hannon DO documented in this encounter [facility] 11-28-2024 History of Present illness Narrative Headache/epigastric pain/blurry vision/swelling? No Cramping/contractions? No Spotting/vaginal bleeding? No Loss or gush of fluid like your water may have broken? No Do you have cats at home? No Do you change the litter box (reason: risk of toxoplasmosis)? N/A Genetic testing done this here or other office? No Have you been seen here at [facility] in a previous ? No Recent ER visits or hospitalizations? No Bring blood sugar log or meter with you today? (Please bring them with you for every visit at [facility]) Yes, Dexcom report Flu vaccine (Feb-June)? N/A Any concerns that you would like me to mention to the provider today? No REASON FOR CONSULTATION: gestational diabetes HISTORY OF PRESENT ILLNESS: Javid Prasad is a pleasant 33 y.o. at 32w6d due on Estimated Date of Delivery: 01/17/25. complicated by: Prediabetes outside [...] and in the mornings 200s and hyperglycemia to 150 with meals. November 24 episode of hypoglycemia was false readings with fingerstick blood glucose in the 80s and 100s, patient was asymptomatic. Patient changed her site and subsequent CGM readings were consistent with hyperglycemia. Aneuploidy screening: declined Carrier [...] mouth in the morning., Disp: , Rfl: PNV no.153/FA/om3/dha/epa/fish ( GUMMIES ORAL), Take 2 each by mouth in the morning., Disp: , Rfl: RECENT HOSPITALIZATION: none HABITS: Patient activity no restrictions, diet no restrictions REVIEW OF SYSTEMS: Head and Neck: Negative for any dizziness and headaches. Cardiovascular and Respiratory System: Denies any chest pain, shortness of breath, and coughing. Abdominal and System: Denies any abdominal pain, nausea, vomiting, vaginal bleeding, and vaginal discharge REVIEW OF TESTS AND ULTRASOUND REPORTS: Referral records and psychiatric chart were reviewed Pertinent Ultrasound findings are see formal ultrasound report. PHYSICAL EXAMINATION: BP 114/60 (BP Site: Right Arm, BP Postition: Sitting) Pulse 96 Ht 182.9 cm (6') Wt 130.1 kg (286 lb 12.8 oz) LMP 04/12/2024 BMI 38.90 kg/m Well-appearing in no distress. Respirations not labored, speaking comfortably in full sentences Gravid abdomen IMAGING No image results found. OVERALL ASSESSMENT -Javid Prasad is a pleasant 33 y.o. at 32w6d -GDM A2 -prediabetes affecting -family history of diabetes -obesity affecting COUNSELING/MEDICAL DECISION-MAKING Gestational diabetes is a is a state of carbohydrate intolerance with subsequently insulin resistance and hyperglycemia. This is a malfunction or dysfunction of glucose sensors in the liver with inappropriate release of glucose followed by hyperinsulinemia followed by normal insulin secretion and then relatively deficiency in insulin secretion resulting in [...] more likely to fail compared to insulin. shelter data on children whose mothers took oral hypoglycemic agents while is limited. Medication is typically initiated when >20-30% of the blood glucose values in one week are out of range. Risks and side effects of both insulin and oral agents were discussed. In discussion of the above, patients opts to initiate insulin. Glucose goals in : Fasting 60 - 95: Mean fasting glucose values are important in managing diabetes in women because they provide overall glycemic estimate, and are predictive of increased fat mass in the women s offspring. Increased fat mass has been shown [...] CGM we will be reviewed weekly by [facility]. Status post diabetic education nutrition counseling at [facility] Detailed anatomy ultrasound scheduled for 12/11/2024 in [facility] Repeat growth ultrasound at 38 weeks gestation, through primary OB Recommend weekly testing for the remainder of , through primary OB Delivery recommendations : Recommend delivery at [id number] Discuss delivery if estimated weight is >4500g Use 1/2 dose of insulin the night before her planned delivery. Will discuss at later gestation Monitor patient's BG every 4hrs during latent labor, every 1 hr during active labor with goal BG to be less than 140mg/dl. Can use insulin sliding scale prn hyperglycemia. Once delivered, check blood glucose fasting and 1hr post prandial, with goal of 100-130mg/dl for fasting and <180mg/dl for random or post prandial blood glucose levels Obtain a 2-hour GTT 6-8 weeks . Also recommend yearly evaluation of blood glucose as patient is at an increased risk of developing diabetes later on. Follow up in [facility] in 2 weeks with provider visit DISPOSITION: At this point the patient is in complete care of her bag turner. Patient does have ultrasound and office visit scheduled with us. Thank you for allowing me to participate in the care of Javid Prasad. If there any questions please do not hesitate to contact us. Saul Granados MD Maternal- Medicine [facility] [address] [place] [id number] This document was created with [employer] technology. Though I make every effort to review the dictation as it is transcribed, on occasion the spoken word can be misinterpreted by the technology leading to inappropriate words, phrases, or sentences. This note is addressed to the requesting provider as a consultation for clinical guidance. Specific medical abbreviations are occasionally used and those are generally approved by the [place]?Board of?Obstetrics and?Gynecology?as well as?Ethan s abbreviations. The above plan of care was based solely on the diagnoses for which a consultation was requested. ?More frequent testing may be indicated based on her other medical/obstetrical conditions. The management of other or medical conditions is beyond the scope of requested consultation and will continue to be followed by the primary bag turner or primary care provider. Note to patient: The Cures Act makes medical notes like these available to patients in the interest of transparency. However, be advised this is a medical document. It is intended as peer to peer communication. It is written in medical language and may contain abbreviations or verbiage that are unfamiliar. It may appear blunt or direct. Medical documents are intended to carry relevant information, facts as evident, and the clinical opinion of the practitioner. documented in this encounter [facility] 11-26-2024 History of Present illness Narrative Pt called back and stated that her fastings were in the 125to 140 range. She was given the number to call for a medication start appt. We also discussed metformin verses insulin and criteria for starting medication 20% of her blood sugar and or half of her fastings. She will call in the morning and sched. documented in this encounter [facility] 11-26-2024 Miscellaneous Notes Called pt to let her know that Hanny Ware reviewed her dexcom and would like her to start marking her fasting time and number. If she does know what her fasting numbers are and if they are consistently over 95 then she needs an appt to start medication. She can call and make that appt at [phone] option #3. It looks as though her fastings are running above target but would like to see what the actual numbers are running. documented in this encounter [facility] 11-26-2024 Telephone encounter Note Called pt to let her know that Hanny Ware reviewed her dexcom and would like her to start marking her fasting time and number. If she does know what her fasting numbers are and if they are consistently over 95 then she needs an appt to start medication. She can call and make that appt at [phone] option #3. It looks as though her fastings are running above target but would like to see what the actual numbers are running. [facility] 11-25-2024 Miscellaneous Notes Called regarding food logs but received voicemail. [...] meals. Asked that she call back at [phone] and let us know if she is having any consistent elevated blood sugars. documented in this encounter [facility] 11-25-2024 Telephone encounter Note Called regarding food logs but received voicemail. [...] meals. Asked that she call back at [phone] and let us know if she is having any consistent elevated blood sugars. [facility] 11-20-2024 History of Present illness Narrative DIABETES AND ASSESSMENT Type of diabetes: Prediabetes [...] care for you: OB Provider Family Doctor Corporate Associate Name: Dr. Alvin Hannon Name: Dr. Karena Solares Name: City: City: City: Last time seen: [...] first Is there anything about your culture, baptist, or personal beliefs we need to know about to care for you: Other Tracking Primary Language spoken: Romanian [22] Primary Language for learning: Romanian Are you currently in a relationship where you are physically hurt, threatened or made to fee afraid? [] Yes [] No Personal Property Assessor needed? [] Yes [] No Marital status/Living [...] Interpersonal Safety: Unknown (06/07/2023) Received from [facility] Safety & Environment Fear of Current or Ex-Partner: Not on file Emotionally Abused: Not on file Physically Abused: Not on file Sexually Abused: Not on file Physically or Sexually Abused: Not on file Housing Instability: Not on file Eating Schedule - What time do you: Work day Day off Other (including weekends) [...] If yes, where: On thge following scale, [place] the number, which describes your current level [...] describe how they have changed. [] [] Do you have a Glucagon kit and are you familiar with its use? [] [] Have you been told told that you have any complications from diabetes? If yes, please describe: [] [] Do you check your feet? If yes, how often? [] [] Do you have foot problems? If yes, what kind? [] [] Have you ever received any diabetic education? If yes, where and when: [] [x] . Nutritional Assessment Form Date: 11/20/2024 WILLIE: Estimated [...] weekly Educational Level Masters Family issues stable Cultural/ethnic/mu-ism influences demies Exercise approved by MD? Yes Current Exercise program walking 5 miles Who prepares the meal Self Who purchase food at your home? Self and S.O Equipment use for cooking/food storage Has everything Food Assistance(Ex.WIC, Food Seco) Declined Dining out Yes Twice a week Appetite/Appetite changes Flucuates, better lately Weight History Stable Do you have cats at home? Infant Feeding Plans Breast Feeding If you have cats, who cleans the litter box? Cravings/Aversions/Pica Only food aversions to meat Nutrition Assessment Worksheet: Week/Weekend Food Recall Breakfast Romanian muffin with cream cheese or yogurt, water Snack Fruit, 2 cups of cherries Lunch Pizza hut stack pizza (2 slices) and water or chicken breast and sweet potatoes Snack fruit Dinner Spaghetti, cheese bread Snack Hasn't been snacking Snack Time 9AM 11 AM 1 PM 5 PM 7-8 PM 9-9:30 PM Seen for a telehealth session. Javid Prasad presents for diet instruction per doctor order secondary to diagnosis of gestational diabetes. Noted history of obesity. Food recall suggests patient typically consumes a higher carbohydrate diet, has had an aversion to meat/poultry with this . Initially Javid was experiencing a lot of nausea and vomiting, she is finally feeling better. Pt reports losing weight, her pre- weight was 282 pounds. Based on patient's stated pre- weight, weight gain goal is 11-20 pounds. Nutrition diagnosis: inconsistent and sometimes higher carbohydrate intake related to lack of nutrition knowledge as evidenced by [...] 1 PM 45-60 grams of CHO, Snack 5 PM 30 grams of CHO, Dinner 7-8 PM 45-60 grams of CHO, HS Snack 9-9:30 PM 30 grams of CHO. Face to face time 38 minutes. documented in this encounter [facility] 11-18-2024 History of Present illness Narrative Reason for Appointment: Patient ID: Javid Prasad is a 33 y.o. female who presents for Routine Visit Patient presents today for Return OB appointment. MEDICATIONS Current Outpatient Medications Medication Instructions Alcohol Swabs (Alcohol Prep Pad) 70 % pads 1 Pad, Topical, Daily, Use four times daily to check FSBS. aspirin 81 mg, Daily RT Blood Glucose Monitoring Suppl (D-Care Glucometer) w/Device kit 1 kit, Does not [...] nursing note reviewed. Exam conducted with a sexual health physician present. Vitals: Estimated body mass index is 38.52 kg/m as calculated from the following: Height as of 01/16/24: 6'. Weight as of this encounter: 284 lb. BP: 112/70 Patient's last menstrual period was 04/12/2024. ASSESSMENT & PLAN ICD-10-CM 1. Third trimester ([facility]) Z34.93 Urine dip 2. 31 weeks gestation of ([facility]) Z3A.31 Urine dip 3. Gestational diabetes mellitus (GDM), antepartum, gestational diabetes method of control unspecified [facility] O24.419 Return OB: Patient presents today for a routine obstetrics appointment. Patient is currently 31w3d . Patient states she is doing well but has complaints of being tired due to current . Patient has verbalizes frequent movement. labor precautions was discussed/given and patient was instructed to perform kick counts three times a day. Pt being sent to [facility] to complete anatomy scan. RVOT and LVOT and lips not evaluated. Pt voiced understanding. Orders Placed This Encounter Procedures Urine dip Follow Up: Patient is to return to office in 2 week for routine OB appointment. Documented by Katarzyna Malagon LPN on behalf of: Miguel Hannon DO documented in this encounter [facility] 11-03-2024 History of Present illness Narrative Reason [...] Father Adebayo Marco Diabetes Maternal Grandfather [place] Hypertension Maternal Grandmother Sandy [place] Diabetes Paternal Grandfather Rito Marco Kidney disease [...] PLAN ICD-10-CM 1. 29 weeks gestation of ([facility]) Z3A.29 POCT urinalysis dipstick manually resulted 2. Third trimester ([facility]) Z34.93 POCT urinalysis dipstick manually resulted Return [...] Documented by ARELI Espinoza on behalf of: Miguel Hannon DO documented in this encounter [facility] 10-21-2024 Note [facility] Consult Note [...] on file Intimate Partner Violence: Unknown (06/07/2023) [place] Safety & Environment Fear of Current or [...] normal affect Orientation (more content not included)... [facility] 10-21-2024 History of Present illness Narrative Reason [...] Father Adebayo Marco Diabetes Maternal Grandfather [place] Hypertension Maternal Grandmother Sandy [place] Diabetes Paternal Grandfather Rito Marco Kidney disease [...] ASSESSMENT & PLAN ICD-10-CM 1. Second trimester ([facility]) Z34.92 POCT urinalysis dipstick manually resulted 2. 27 weeks gestation of ([facility]) Z3A.27 POCT urinalysis dipstick manually resulted Return [...] of: ARELI Espinoza documented in this encounter [facility] 09-16-2024 History of Present illness Narrative [...] Father Adebayo Marco Diabetes Maternal Grandfather [place] Hypertension Maternal Grandmother Sandy [place] Diabetes Paternal Grandfather Rito Marco Kidney disease [...] nursing note reviewed. Exam conducted with a sexual health physician present. Vitals: Estimated body mass index is [...] Miguel Hannon DO documented in this encounter [facility] 08-19-2024 History of Present illness Narrative [...] calculated from the following: Height as of 24: 6'. Weight as of this encounter: 277 [...] of: ARELI Espinoza documented in this encounter [facility] 07-22-2024 History of Present illness Narrative [...] Grandfather James [place] Hypertension Maternal Grandmother Sandy [place] Diabetes Paternal Grandfather Rito Marco Kidney disease [...] nursing note reviewed. Exam conducted with a sexual health physician present. Vitals: Estimated body mass index is [...] or undercooked meat, and stay away from [facility]. Patient has been consulted regarding any [...] Miguel Hannon DO documented in this encounter [facility] 02-19-2024 History of Present illness Narrative [...] having a D&C Hysteroscopy performed at [facility] with Dr. Hannon. Pathology results was reviewed with the patient in great detail and all restrictions have been lifted. Follow Up: Patient is to return to the office for annual exam unless needed otherwise. Documented by ARELI Espinoza on behalf of: ARELI Espinoza documented in this encounter [facility] 01-16-2024 History of Present illness Narrative Reason for Appointment: Patient ID: Javid Prasad is a 33 y.o. female who presents for Pre-op Visit Patient presents today for Pre Op appointment. Patient is scheduled to undergo D&C Hysteroscopy, possible Myosure on 02/08/[address] Hannon at [facility]. MEDICATIONS Current Outpatient Medications Medication Instructions [...] reviewed, and patient is to proceed to [facility] OR. Follow Up: Patient is to follow up between 1-2 weeks post operative to assess proper healing and recovery from procedure. Documented by Katarzyna Malagon LPN on behalf of: Miguel Hannon DO documented in this encounter [facility] 12-25-2023 History of Present illness Narrative [...] nursing note reviewed. Exam conducted with a sexual health physician present. Vitals: Estimated body mass index is [...] Miguel Hannon DO documented in this encounter [facility] 12-25-2023 Note Try to bring the [...] on file Intimate Partner Violence: Unknown (06/07/2023) [place] Safety & Environment Fear of Current or [...] not heard Diastolic (more content not included)... [facility] 06-19-2022 Note This is a Telephone Appointment [...] dreaming in association with her activity. [1] [place] Sleepiness Scale score: 12 A home sleep [...] Parasomnia Historical No qualifying data Procedure/Surgical History Coleman teeth removed Medications No active medications Allergies [...] signed by Isabella Grant 06/19/22 15:39 EST [facility] Evaluation note Diagnosis Pre-op examination Uterine leiomyoma, unspecified location documented in this encounter [facility] HealthcareEvaluation note* Diagnosis Postop check Follow-up examination, following unspecified surgery documented in this encounter [facility] HealthcareEvaluation note* Diagnosis Female infertility Female infertility [...] state, incidental documented in this encounter [facility]* Diagnosis Third trimester (HHS-HCC) state, incidental 31 weeks gestation of (HHS-HCC) Gestational diabetes mellitus (GDM), antepartum, gestational diabetes method of control unspecified (HHS-HCC) documented in this encounter [facility]* Diagnosis Gestational diabetes mellitus (GDM) in second trimester, gestational diabetes method of control unspecified [facility] Insulin controlled gestational diabetes mellitus (GDM) in third trimester- Primary Prediabetes in mother during Family history of type 2 diabetes mellitus Family history of diabetes mellitus Obesity affecting , antepartum, unspecified obesity type 32 weeks gestation of [facility] Diagnosis Third trimester (HHS-HCC) state, incidental 33 weeks gestation of (HHS-HCC) Gestational diabetes mellitus (GDM), antepartum, gestational diabetes method of control unspecified ([facility]) documented in this encounter [facility] HealthcareInstructionsNot on filedocumented in this encounterProMedica Health SystemInstructionsNot on filedocumented in this encounterProMedica Health SystemInstructionsNot on filedocumented in this encounterProMedica Health SystemInstructionsNot on filedocumented in this encounterProMedica Health [facility] InstructionsNot on filedocumented in this encounterProMedica Health [facility] Summary Purpose Family History No Family [...] section and content) DATE CREATED AUTHOR 07/04/2021 [facility] DATE CREATED AUTHOR AUTHOR'S ORGANIZ ATION 2021 [facility] DATE CREATED AUTHOR AUTHOR'S ORGANIZ ATION 06/21/2022 [facility] DATE CREATED AUTHOR AUTHOR'S ORGANIZ ATION 12/15/2022 [facility] DATE CREATED AUTHOR AUTHOR'S ORGANIZ ATION 11/20/2024 [facility] DATE CREATED AUTHOR AUTHOR'S ORGANIZ ATION 11/30/2024 [facility] DATE CREATED AUTHOR AUTHOR'S ORGANIZ ATION 11/30/2024 [facility] Care Teams (unrecognized sec tion and content) Novelties Sales Representative Relationship Specialty Start Date End Date Adebayo Solares MD [address] [place] [address] PCP - General Family Medicine 11/19/23 Novelties Sales Representative Relationship Specialty Start Date End Date Adebayo Solares MD [address] [place] [address] PCP - General Family Medicine 11/19/23 Novelties Sales Representative Relationship Specialty Start Date End Date Adebayo Solares MD [address] [place] [address] PCP - General Family Medicine 11/19/23 Novelties Sales Representative Relationship Specialty Start Date End Date Adebayo Solares MD [address] [place] [address] PCP - General Family Medicine 11/19/23 Novelties Sales Representative Relationship Specialty Start Date End Date Adebayo Solares MD [address] [place] [address] PCP - General Family Medicine 11/19/23 Novelties Sales Representative Relationship Specialty Start Date End Date Adebayo Solares MD [address] [place], [place] [phone] (Work) PCP - General Family Medicine 11/19/23 Novelties Sales Representative Relationship Specialty Start Date End Date Adebayo Solares MD [address] [place] [address] PCP - General Family Medicine 11/19/23 Novelties Sales Representative Relationship Specialty Start Date End Date Adebayo Solares MD [address] [place] [address] PCP - General Family Medicine 11/19/23 Novelties Sales Representative Relationship Specialty Start Date End Date Adebayo Solares MD [address] [place] [address] PCP - General Family Medicine 11/19/23 Novelties Sales Representative Relationship Specialty Start Date End Date Adebayo Solares MD [address] [place] [address] PCP - General Family Medicine 11/19/23 Novelties Sales Representative Relationship Specialty Start Date End Date Adebayo Solares MD [address] [place] [address] PCP - General Family Medicine 11/19/23 Novelties Sales Representative Relationship Specialty Start Date End Date Adebayo Solares MD [address] [place] [address] PCP - General Family Medicine 11/19/23 Novelties Sales Representative Relationship Specialty Start Date End Date Adebayo Solares MD [address] [place] [address] PCP - General Family Medicine 11/19/23 Novelties Sales Representative Relationship Specialty Start Date End Date Adebayo Solares MD [address] [place] [address] PCP - General Family Medicine 11/19/23 Reason for Visit (unrecogniz ed section and content) Reason Comments Pre-op Visit Reason Comments Post-op Visit Reason Comments Infertility Reason Comments Routine Visit Reason Comments Gestational Diabetes Specialty Diagnoses / Procedures Referred By Contac t Referred To Contact Maternal and Medicine Diagnoses Gestational diabetes mellitus (GDM) in second trimester, gestational diabetes method of control unspecified Miguel Hannon R, DO [address] [place] [address] [place] [address] Phone: tel: fax: Maternal- Medicine at [address] [address] Phone: tel: fax: Referral ID Status Reason Start Date Expiration Date Visits Requested Visits Authorized [id number] Pending Review Specialty Services Required 11/11/2024 11/11/2025 1 1 Reason Comments GDM, med start FOR RECORDS PERTAINING TO PATIENTS WHO ARE [...] BE BASED ON THE PRIMARY CLINICAL RECORDS. [facility], [facility]. provides no warranty or guarantee of the accuracy or completeness of information in this document.
[2024-12-02 17:11] VITALS: BP 126/67; PULSE 82
== END 2024-12-02 17:39 | disposition home or self-care (01) ==
LOC: FBCO 16:44 → FBC 16:56
PROVIDERS: PCP Family Medicine; Visit Provider Obstetrics & Gynecology
DX: O24.419 Gestational diabetes mellitus in pregnancy, unspecified control (principal); Z3A.33 33 weeks gestation of pregnancy
CPT/HCPCS: 59025

== ENCOUNTER 2024-12-05 19:02 | Outpatient (OUT) | payer BC, SELFPAY ==
--- OUTSIDE RECORDS SUMMARY | 2023-11-08 11:15 | XMS_ITS ---
Author Organization [facility] in [place] Address [address] [place] [address] Care Team Providers Care Quality Assurance Manager Name Role Phone Stacie Adebayo Primary Care Provider Allergies Allergen (clinical drug ingredient) Drug/Non Drug Allergy documented on EMR Reaction Allergy Type Onset Date Status Ragweed Unknown Allergy Active Reason For Referral Reason rectal bleeding Diagnosis 1 Hemorrhage of anus a nd rectum (K62.5) Referral Organization Family Practice [facility] Referring Provider First Name Adebayo Referring Provider Last Name Stacie Referring Provider Speciality Family Med [facility] Referred Provider Specialty General Surg estuardo [...] day Active PNV Active Vitamin D (Ergocalciferol) 46726 UNIT 1 capsule Orally qweekly for 30 days 06/18/2023 Active Metoprolol Tartrate 25 MG 1 tablet with food Orally Twice a day for 30 day(s) 11/14/2021 Not-Taking Meclizine HCl Not-Ta joy Social History Tobacco Use: Social History Observation Description Date Details (start date - stop date) Never Smoker NA - NA Tobacco Use/Smoking Question Answer Notes Patient 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 Problems Problem Type SNOMED Code ICD Code Onset Dates Problem Status W/U Status Risk Notes Problem 5470188 Female infertili ty, unspecified (N97.9) Active confirmed Problem 784195385 Body mass index [BMI] 36.0-36.9, adult (Z68.36) Active confirmed Problem 439014975 Obesity, unspecified (E66.9) Active confirmed Problem 463732933 Mixed hyperlipidemia (E78.2) Active confirmed Problem 98515030 Vitamin D deficiency, unspecified (E55.9) Active confirmed Vital Signs Weight 272.2 lbs 11/08/2023 Height 72 in 11/08/2023 Blood pressure systolic 142 mm Hg 11/08/19 24 Blood pressure diastolic 90 mm Hg 024 Heart Rate 82 /min 11/08/2023 Respiratory Rate 16 /min 11/08/2023 BMI 36.91 kg/m2 11/08/2023 Oximetry 98 % 11/08/2023 Encounters Encounter Location Date Provider Diagnosis [facility] [address] [place] [address] 11/08/2023 Adebayo Quinones Hemorrhage of anus a [...] K62.5) fax referral to dr miner at [facility] for eval and tx and colonoscopy prob int hem fiber monitor 11/08/2023 Female infertility, unspecified (ICD-10 - N97.9) set up pelvic US - ?PCOS f/u nutrition professor as directed ?PCOS - d/w pt possible [...] rectum fax referral to dr miner at [facility] for eval and tx and colonoscopy prob int hem fiber monitor Female infertility, unspecified set up pelvic US - ?PCOS f/u nutrition professor as directed ?PCOS - d/w pt possible [...] Name:Adebayo burr, 01/26/2025 10:00:00 AM, [address] [place], [address], Progress Notes * Andressa TRIPLETTDOB: [birth year] (32 yo F)Acc No.[id number]:11/08/2023 Established Patient: Andressa ALBERT Provider: Maria E Quinones DO :1990 A ge:32 Y S ex:Female Date:11/08/2023 Address:[address] [place], [place] [address], [id number] Check In:03:03 PM ESTCheck O ut:03:23 PM [...] menses at time of bleeding appt with nutrition professor 12/2023 trying to get for 1 year [...] Once a day PNV Vitamin D (Ergocalciferol) 59637 UNIT Capsule 1 capsule Orally qweekly Taking Omeprazole 40 MG Capsule Delayed Release 1 capsule 30 minutes before morning meal Orally Once a day Taking PNV Taking Vitamin D (Ergocalciferol) 17320 UNIT Capsule 1 capsule Orally qweekly Not-Taking/PRNMeclizine [...] set up pelvic US - ?PCOS f/u nutrition professor as directed ?PCOS - d/w pt possible [...] 11/08/2023 Generated for Tiffanie burr/Gaby/eTnaomismitting on: 0 12/05/2024 07:04 PM EDT History and Physical Notes * [...]
--- OUTSIDE RECORDS SUMMARY | 2023-11-26 11:38 | XMS_ITS ---
Author Organization [facility] in [place] Address [address] [place] [address] Care Team Providers Care Sanding Supervisor Name Role Phone Adebayo Quinones Primary Care Provider Results Component Value Reference Range Notes US Transabdominal & Transvag inal (Not yet reviewed by provider) Interpretation: Performing Lab: Notes/Report: REASON FOR VISIT need order changed Encounters Encounter Location Date Provider Diagnosis [facility] [address] [place] [address] 11/26/2023 Adebayo Quinones Female infertility, unspecified N97.9 Assessments Encounter Date Diagnosis (ICD Code) Assessment Notes Treatment Notes Treatment Clinical Notes Section Notes 11/26/2023 Female infertility, unspecified (ICD-10 - N97.9) Plan Of Treatment Pending Test Test Name Order Date US Transabdominal & Transvaginal 024 Next Appt Details Provider Name:Adebayo burr, 01/26/2025 10:00:00 AM, [address] [place], [address], Progress Notes * Andressa TRIPLETTDOB: [birth year] (32 yo F)Acc No.[id number]:11/26/2023 Patient: Andressa ALBERT :1990 A ge:32 Y S ex:Female Address:[address] [place] [address], [phone] Subjective: * Chief Complaints: * N eed order changed * Medical History: * Surgical History: * Hospitalization/Major Diagno stic Procedure: * Medications: Objective: * Vitals: * Physical Examination: Assessment: * Assessment: 1. F emale infertility, unspecified - N97.9 (Primary) Plan: * Treatment: * Procedure Codes: * true * Date: Generated for Tiffanie burr/Gaby/Sharmaine on: 0 12/05/2024 07:04 PM EDT
--- OUTSIDE RECORDS SUMMARY | 2024-11-11 10:09 | XMS_ITS ---
Author Organization [facility] in [place] Address [address] [place] [address] Care Team Providers Care Turner In Name Role Phone Adebayo Quinones Primary Care Provider REASON FOR VISIT needs wellness Encounters Encounter Location Date Provider Diagnosis [facility] [address] [place] [address] 11/11/2024 Adebayo Quinones Plan Of Treatment Next Appt Details Provider Name:Adebayo burr, 01/26/2025 10:00:00 AM, [address] [place], [address], Progress Notes * Andressa TRIPLETTDOB: [birth year] (33 yo F)Acc No.[id number]:11/11/2024 Patient: Stephanie Andressa MORRISSEY :1990 A ge:33 Y S ex:Female Address:[address] [place] [address], [phone] * true * Date: Generated for Printi ng/Faxing/eTransmitting on: 0 12/05/2024 07:05 PM EDT
--- OUTSIDE RECORDS SUMMARY | 2024-11-24 15:30 | XMS_ITS | Encounter Summary ---
Author Organization [facility] Address [address] [place] [address] Care Team Providers Care Tapper Supervisor Name Role Phone Adebayo Quinones DO Primary Care Provider [phone] Encounter Details Date Type Department Care Team (Latest Contact Info) Description 11/24/2024 3:30 PM EDT Ancillary Procedure [facility] [address] [place] [phone] Awareness of heartbeats Social History Tobacco Use Types Packs/Day Years [...] CARDIAC DEVICE CHECK CHECK - REMOTE Routine 11/28/2024 11:31 AM EDT Awareness of heartbeats documented in this encounter Results * CARDIAC DEVICE CHECK - REMOTE - LOOP RECORDER (ILR) (11/28/2024 11:31 AM EDT) us Yoseph Mcintosh MD CV IMPLANTABLE CARDIAC DEVICE MD OCEDURES Final Result CPACS documented in this encounter Visit Diagnoses Diagnosis Awareness of heartbeats documented in this encounter Care Teams Tapper Supervisor Relationship Specialty Start Date End Date Adebayo Quinones DO [address] [place] [address] PCP - General 11/14/22 documented as of this encounter
--- OUTSIDE RECORDS SUMMARY | 2024-11-28 11:30 | XMS_ITS | Encounter Summary ---
Author Organization [facility] tem Address [id number] [address] [place] [address] Care Team Providers Care Senior Web Engineer Name Role Phone Unavailable Primary Care Provider Unavailabl e Reason for Visit * Reason Comments GDM, med start Encounter Details Date Type Department Care Team (Late st Contact Info) Description 11/28/2024 11:30 AM EDT Office Visit Maternal- Medicine at [facility] [address] [place] [phone] Priscila Granados MD [address] [facility] 1st [place] [address] Insulin controlled gestational diabetes mellitus (GDM) in [...] No Have you been seen here at [facility] in a previous ? No Recent ER visits or hospitalizations? No Bring blood sugar log or meter with you today? (Please bring them with you for every visit at [facility]) Yes, Dexcom report Flu vaccine (Feb-June)? N/A [...] TESTS AND ULTRASOUND REPORTS: Referral records and [facility] chart were reviewed Pertinent Ultrasound findings [...] more likely to fail compared to insulin. senior care data on children whose mothers took oral [...] CGM we will be reviewed weekly by [facility]. Status post diabetic education nutrition counseling at [facility] Detailed anatomy ultrasound scheduled for 12/11/2024 in [facility] Repeat growth ultrasound at 38 weeks gestation, through primary OB Recommend weekly testing for the remainder of , through primary OB Delivery recommendations : Recommend delivery at [id number] Discuss delivery if estimated weight is >4500g [...] developing diabetes later on. Follow up in [facility] in 2 weeks with provider visit DISPOSITION: At this point the patient is in complete care of her kennel manager. Patient does have ultrasound and office visit scheduled with us. Thank you for allowing me to participate in the care of Andressa Prasad. If there any questions please do not hesitate to contact us. Priscila Granados MD Maternal- Medicine [facility] [address] [facility] 1st [place] [address] This document was created with [employer] technology. Though I make every effort to review the dictation as it is transcribed, on occasion the spoken word can be misinterpreted by the technology leading to inappropriate words, phrases, or sentences. This note is addressed to the requesting provider as a consultation for clinical guidance. Specificmedical abbreviations are occasionally used and those are generally approved by the [place]?Board of?Obstetrics and?Gynecology?as well as?Ethan???s abbreviations. The above plan of care was based solely on the diagnoses for which a consultation was requested. ?More frequent testing may be indicated based on her other medical/obstetrical conditions. The management of other or medical conditions is beyond the scope of requested consultation and will c ontinue to be followed by the primary kennel manager or primary care provider. Note to patient: [...] 12/11/2024 1:00 PM EDT Appointment Maternal Medicine [place] [address] [facility] [address] [place] [address] 12/18/2024 8:00 AM EDT Telemedicine Maternal- Medicine at [facility] [address] [place] [phone] Jeanie Hanny, TERRITORY DEVELOPMENT MANAGER-BOLT CUTTER [address] [address] documented as of this encounter Procedures Procedure [...]
--- OUTSIDE RECORDS SUMMARY | 2024-12-02 08:40 | XMS_ITS | Encounter Summary ---
Author Organization [facility] Address [address] [facility] [place] [address] Care Team Providers Care Bullet Slugs Inspector Name Role Phone Adebayo Quinones MD Primary Care Provider + [phone] Reason for Visit * Reason Comments Routine Visit Encounter Details Date Type Department Care Team (Late st Contact Info) Description 12/02/2024 8:40 AM EDT Routine [facility] [address] [place] [address] Miguel Hannon DO [address] [facility] [address] [place], [facility] Third trimester ([facility]); 33 weeks gestation of ([facility]); Gestational diabetes mellitus (GDM), antepartum, gestational diabetes method of control unspecified ([facility]) Social History Tobacco Use Types Packs/Day [...] Sign Reading Time Taken Comments Blood Pressure 114/76 12/02/2024 8:57 AM EDT Pulse - - Temperature - - Respiratory Rate - - Oxygen Saturation - - Inhaled Oxygen Concentration - - Weight 131 kg (289 lb 12.8 oz) 12/02/2024 8:57 A M EDT Height - - Body Mass Index 39.3 01/16/2024 4:38 PM EDT documented in this encounter Progress Notes * Katarzyna JAJA Malagon - 12/02/2024 8:40 AM EDT Reason for Appointment: Patient ID: Andressa Prasad is a 33 y.o. female who presents for Routine Visit Patient presents today for Return OB appointment. MEDICATIONS Current Outpatient Medications Medication Instructions Alcohol Swabs (Alcohol Prep Pad) 70 % pads 1 Pad, Topical, Daily, Use four times daily to check FSBS. aspirin 81 mg, Daily RT Blood Glucose Monitoring Suppl ([employer] Glucometer) w/Device kit 1 kit, Does not apply, Daily, Use four times daily to check FSBS. In the morning prior to breakfast & 1 hour after each meal for a total of 4times daily. Continuous Glucose Sensor (Dexcom G7 Sensor) misc 1 each, Does not apply, Every 10 days Glucose Blood (Blood Glucose Test) strip 1 strip, In Vitro, Daily, Use in the morning prior to breakfast, 1 hour after each meal for a total of 4times daily. Lancets Ultra Thin misc 1 each, In Vitro, Daily, Use to check FSBS four times daily Lantus SoloStar 100 UNIT/ML pen Nightly omeprazole (PRILOSEC) 20 mg, Daily before breakfast [...] Grandfather James Lissa Hypertension Maternal Grandmother Sandy [place] Diabetes Paternal Grandfather Rito Marco Kidney disease [...] nursing note reviewed. Exam conducted with a steel hanger present. Vitals: Estimated body mass index is 39.3 kg/m?? as calculated from the following: Height as of 01/16/24: 6'. Weight as of this encounter: 289 lb 12.8 oz. BP: 114/76 Patient's last menstrual period was 04/12/2024. ASSESSMENT & PLAN ICD-10-CM 1. Third trimester ([facility]) Z34.93 POCT urinalysis dipstick manually resulted 2. 33 weeks gestation of ([facility]) Z3A.33 POCT urinalysis dipstick manually resulted 3. Gestational diabetes mellitus (GDM), antepartum, gestational diabetes method of control unspecified ([facility]) O24.419 Continuous Glucose Sensor (Dexcom G7 Sensor) [facility]: Patient presents today for a routine obstetrics appointment. Patient is currently 33w3d . Patient states she is doing well but has complaints of being tired due to current . Patient has verbalizes frequent movement. labor precautions was discussed/given and patient was instructed to perform kick counts three times a day. Pt to have repeat anatomy scan at [facility] on 12/11. Discussed delivery between 37-39 weeks d/t being on Lantus. Orders Placed This Encounter Procedures POCT urinalysis dipstick manually resulted Follow Up: Patient is to return to office in 2 week for routine OB appointment. Documented by Katarzyna Malagon LPN on behalf of: Miguel Hannon DO documented in this encounter Plan of Treatment Upcoming Encounters Date Type Department Care Team (Late st Contact Info) Description 12/16/2024 1:10 PM EDT Routine [facility] [address] [facility] [place] [address] Maureen Mitchell PA [address] [facility] [place] [address] 12/23/2024 11:30 AM EDT Routine [facility] [address] [place] [address] Miguel Hannon DO [address] [facility] [address] [place] [address] 12/30/2024 8:30 AM EDT Routine [facility] [address] [place] [phone] Maureen Mitchell PA [address] [place] [address] 01/06/2025 9:10 AM EDT Routine [facility] [address] [facility] [place] [address] Miguel Hannon DO [address] [place] [address] documented as of this encounter Procedures Procedure Name Priority Date/Time Associated Diagnosis Comments POCT URINALYSIS DIPSTICK Routine 12/02/2024 9:04 AM EDT Third trimester ([facility]) 33 weeks gestation of ([facility]) documented in this encounter Results * (ABNORMAL) POCT urinalysis dipstick manually resulted (12/02/2024 9:04 AM EDT) Color, UA Yellow Clarity, UA Clear Glucose, UA Negative Negative - 2000(110) ++++ mg/dL Bilirubin, UA Negative Negative - 4(70) +++ mg/dL Ketones, UA Negative Negative - 160(16) ++++ mg/dL Spec Grav, UA 1.025 1 - 1.03 Blood, UA Negative Negative - 50 Osmin/mcL pH, UA 6.0 5 - 9 Protein, UA Negative Negative - 2000(20) ++++ mg/dL Urobilinogen, UA 1.0 0.2 - 12 mg/dL Leukocytes, UA Positive Negative - 500+++ Oumou/mcL Nitrite, UA Negative Negative - Positive Urine 12/02/2024 9:04 AM EDT Miguel Hannon DO POINT OF CARE TEST ENTER/EDIT OR DERABLES Final Result documented in this encounter Visit Diagnoses Diagnosis Third trimester ([facility]) state, incidental 33 weeks gestation of ([facility]) Gestational diabetes mellitus (GDM), antepartum, gestational diabetes method of control unspecified ([facility]) documented in this encounter Care Teams Bullet Slugs Inspector Relationship Specialty Start Date End Date Adebayo Quinones MD [address] [place] [id number] PCP - General Family Medicine 11/19/23 documented as of this encounter
--- NOTE | 2024-12-05 | US_ITS ---
[address] [address] Patient Name: JAVID TRIPLETT MRN: [id number] date: 1990 Sex: F Assigned Patient Location: [facility] Current Patient Location: [facility] Accession/Order Number: [id number] Exam Date: 12/05/2024 19:12 Report Date: 12/06/2024 17:01 At the request of: KENN MCHUGH DO Procedure: US OB BPP w non-stress US OB BPP w non-stress 12/05/2024 7:35 PM SIGNS AND SYMPTOMS: ^GESTATIONAL DIABETES MELLITUS O24.419 PROTOCOL: Transabdominal sonographic imaging of the gravid uterus COMPARISON: None FINDINGS: heart rate: 152 bpm Amniotic fluid index: 12.46 cm. The deepest vertical pocket measures 5.4 cm. Estimated gestational age: 33 weeks and 6 days. Biophysical profile: breathing movements: 2/2 Gross body movements: 2/2 tone: 2/2 Amniotic fluid volume: 2/2 US/US OB BPP w non-stress IMPRESSION: Biophysical profile: 11/21 Impression dictated by: Tutu Mcdermott M.D. 12/06/2024 5:01 PM Dictation Location: [place] [facility]ITAL[facility] Electronically authenticated by: [id number] Y Date: 12/06/2024 17:01
--- OUTSIDE RECORDS SUMMARY | 2024-12-05 19:04 | XMS_ITS | Encounter Summary ---
Author Organization [facility] [employer] [facility] tem Address [id number] [address] [place] [address] Care Team Providers Care Video Machines Mechanic Name Role Phone Unavailable Primary Care Provider Unavailabl e Encounter Details Date Type Department Care Team (Late st Contact Info) Description 11/26/2024 Telephone Maternal- Medicine at [facility] [address] [facility] [place] [address] Yojana Diehl, HALEY Social History [...] can call and make that appt at [phone] option #3. It looks as though her fastings are running above target but would like to see what the actual numbers are running. documented in this encounter Plan of Treatment Upcoming Encounters Date Type Department Care Team (Late st Contact Info) Description 12/11/2024 1:00 PM EDT Appointment Maternal Medicine [place] [address] [facility] [address] [place] [phone] 12/18/2024 8:00 AM EDT Telemedicine Maternal- Medicine at [facility] [address] [place] [address] Hanny Ware, INSTRUCTOR WASTEWATER TREATMENT PLANT-COPY CLERK [address] [place] [address] documented as of this encounter Visit Diagnoses Not on filedocumented in this encounter
--- OUTSIDE RECORDS SUMMARY | 2024-12-05 19:04 | XMS_ITS | Encounter Summary ---
Author Organization [facility] Address [address] [facility] [place] [address] Care Team Providers Care Service Vehicle Operator Name Role Phone Adebayo Quinones MD Primary Care Provider [phone] Encounter Details Date Type Department Care Team (Late Contact Info) Description 04/04/2024 Abstract [facility] [address] [facility] [address] Miguel Hannon DO [address] [facility] [address] [place], [place] [address] Social History Tobacco Use Types Packs/Day Years [...] Department Care Team (Late Contact Info) Description 12/16/2024 1:10 PM EDT Routine [facility] [address] [place] [address] Maureen Mitchell PA [address] [place], [facility] 12/23/2024 11:30 AM EDT Routine [facility] [address] [place], [place] [address] [address] Miguel Hannon, DO [address] [facility] [place] [address] 12/30/2024 8:30 AM EDT Routine [facility] [facility] [address] [facility] [phone] Maureen Mitchell PA [address] [place] [address] 01/06/2025 9:10 AM EDT Routine [facility] [address] [facility] [address] Miguel Hannon, [address] [facility] [place] [address] documented as of this encounter Visit Diagnoses Not on filedocumented in this encounter Care Teams Service Vehicle Operator Relationship Specialty Start Date End Date Adebayo Quinones MD [address] [place] [address] PCP - General Family Medicine 11/19/23 documented as of this encounter
--- OUTSIDE RECORDS SUMMARY | 2024-12-05 19:04 | XMS_ITS | Encounter Summary ---
Author Organization [facility] tem Address [id number] [address] [place] [address] Care Team Providers Care Magazine Keeper Name Role Phone Unavailable Primary Care Provider Unavailabl e Encounter Details Date Type Department Care Team (Late st Contact Info) Description 11/24/2024 Orders Only Maternal- Medicine at [facility] [address] [place] [phone] Ref Prov, [place] [address] Social History Tobacco Use Types Packs/Day Years [...] 12/11/2024 1:00 PM EDT Appointment Maternal Medicine [place] [address] [facility] [address] [place] [address] 12/18/2024 8:00 AM EDT Telemedicine Maternal- Medicine at [facility] [address] [facility] [place] [phone] Hanny Ware, DRY TALC RACKER-AIR CREW OFFICER [address] [place] [address] documented as of this encounter Visit Diagnoses Not on filedocumented in this encounter
--- OUTSIDE RECORDS SUMMARY | 2024-12-05 19:04 | XMS_ITS | Encounter Summary ---
Author Organization [facility] [employer] [facility] tem Address [id number] [address] [place] [address] Care Team Providers Care Permit Technician Name Role Phone Unavailable Primary Care Provider Unavailabl e Encounter Details Date Type Department Care Team (Late st Contact Info) Description 11/25/2024 Telephone Maternal- Medicine at [facility] [address] [place] [address] Naomie Huber, ENE [address] [place] [address] Social History Tobacco Use Types Packs/Day Years [...] but suggested maybe something like glycerna or [employer] drink for a snack. Advised that she does non haveto send food logs any longer and that we will review her Dexcom readings weekly. documented in this encounter Plan of Treatment Upcoming Encounters Date Type Department Care Team (Late st Contact Info) Description 12/11/2024 1:00 PM EDT Appointment Maternal Medicine [place] [address] [facility] 4 [place] [address] 12/18/2024 8:00 AM EDT Telemedicine Maternal- Medicine at [facility] [address] [place] [address] Hanny Ware, CREW ATTENDANT-SUPERVISOR CONTACT AND SERVICE CLERKS [address] [place] [address] documented as of this encounter Visit Diagnoses Not on filedocumented in this encounter
--- OUTSIDE RECORDS SUMMARY | 2024-12-05 19:04 | XMS_ITS | Encounter Summary ---
Author Organization [facility] Address [address] [place] [address] Care Team Providers Care Gasket Maker Name Role Phone Adebayo Quinones DO Primary Care Provider [phone] Encounter Details Date Type Department Care Team (Late st Contact Info) Description 11/12/2024 Orders Only [facility] [address] [place] [address] Yoseph Mcintosh MD [address] [place] [address] Social History Tobacco Use Types [...] - REMOTE - LOOP RECORDER (ILR) Routine 11/12/2024 12:00 AM EDT documented in this encounter Results * Cardiac device check - Remote loop recorder (ILR) (11/12/2024 12:00 AM EDT) Anatomical Region Laterality Modality Other 11/12/2024 Yoseph Mcintosh MD CV IMPLANTABLE CARDIAC DEVICE CT OCEDURES Final Result documented in this encounter Visit Diagnoses Not on filedocumented in this encounter Care Teams Gasket Maker Relationship Specialty Start Date End Date Adebayo Quinones DO [address] [place] [address] PCP - General 11/14/22 documented as of this encounter
--- OUTSIDE RECORDS SUMMARY | 2024-12-05 19:04 | XMS_ITS | Encounter Summary ---
Author Organization [facility] Address [id number] [address] [place] [address] Care Team Providers Care Director Of Pupil Personnel Program Name Role Phone Unavailable Primary Care Provider Unavailabl e Encounter Details Date Type Department Care Team (Late st Contact Info) Description 11/24/2024 Abstract Maternal- Medicine at [facility] [address] [place] [address] External, Scanning Provider Social History Tobacco Use [...] 12/11/2024 1:00 PM EDT Appointment Maternal Medicine [place] [address] [facility] [place] [address] 12/18/2024 8:00 AM EDT Telemedicine Maternal- Medicine at [facility] [address] [place] [address] Hanny Ware, SUPERVISOR HAND WORKERS-NOODLE PRESS OPERATOR [address] [place] [address] documented as of this encounter Visit Diagnoses Not on filedocumented in this encounter
--- OUTSIDE RECORDS SUMMARY | 2024-12-05 19:04 | XMS_ITS | Encounter Summary ---
Author Organization [facility] Address [id number] [address] [place] [address] Care Team Providers Care Drapery Rod Assembler Name Role Phone Unavailable Primary Care Provider Unavailabl e Encounter Details Date Type Department Care Team (Late st Contact Info) Description 11/26/2024 Documentation Maternal- Medicine at [facility] [address] [place] [address] Yojana Diehl, HALEY Social History [...] 12/11/2024 1:00 PM EDT Appointment Maternal Medicine [place] [address] [facility] 4 [place] [address] 12/18/2024 8:00 AM EDT Telemedicine Maternal- Medicine at [facility] [address] [place] [address] Hanny Ware, PUBLIC ADDRESS ANNOUNCER-GLOBAL LOGISTICS ANALYST [address] [place] [address] documented as of this encounter Visit Diagnoses Not on filedocumented in this encounter
--- OUTSIDE RECORDS SUMMARY | 2024-12-05 19:04 | XMS_ITS | Encounter Summary ---
Author Organization [facility] [employer] [facility] tem Address [id number] [address] [place] [address] Care Team Providers Care Information Support Project Manager Name Role Phone Unavailable Primary Care Provider Unavailabl e Encounter Details Date Type Department Care Team (Late st Contact Info) Description 11/25/2024 Telephone Maternal- Medicine at [facility] [address] [place] [address] Naomie Huber, ENE [address] [place] [address] Social History Tobacco Use Types Packs/Day Years [...] meals. Asked that she call back at [phone] and let us know if she is having any consistent elevated blood sugars. documented in this encounter Plan of Treatment Upcoming Encounters Date Type Department Care Team (Late st Contact Info) Description 12/11/2024 1:00 PM EDT Appointment Maternal Medicine [place] [address] [facility] 4 [place] [address] 12/18/2024 8:00 AM EDT Telemedicine Maternal- Medicine at [facility] [address] [place] [address] Hanny Ware, HAND INSERTER OPERATOR-CENTRAL MELT SPECIALIST [address] [place], [place] [phone] documented as of this encounter Visit Diagnoses Not on filedocumented in this encounter
--- OUTSIDE RECORDS SUMMARY | 2024-12-05 19:04 | XMS_ITS | Encounter Summary ---
Author Organization [facility] Address [address] [facility] [place] [address] Care Team Providers Care Bottler Helper Name Role Phone Adebayo Quinones MD Primary Care Provider [phone] Encounter Details Date Type Department Care Team (Late Contact Info) Description 02/13/2024 Abstract [facility] [address] [facility] [place] [address] Miguel Hannon DO [address] [facility] [address] [place], [place] [address] Social History Tobacco Use Types Packs/Day Years [...] 1:10 PM EDT Routine [facility] [address] [facility] [place] [address] Maureen Mitchell PA [address] [place], [facility] 12/23/2024 11:30 AM EDT Routine [facility] [address] [place], [place] [address] [place] [address] Miguel Hannon, DO [address] [facility] [place] [address] 12/30/2024 8:30 AM EDT Routine [facility] [place] [facility] [address] [facility] [place] [phone] Maureen Mitchell PA [address] [facility] [place] [address] 01/06/2025 9:10 AM EDT Routine [facility] [address] [facility] [place] [address] Miguel Hannon, [address] [facility] [place] [address] documented as of this encounter Visit Diagnoses Not on filedocumented in this encounter Care Teams Bottler Helper Relationship Specialty Start Date End Date Adebayo Quinones MD [address] [place] [address] PCP - General Family Medicine 11/19/23 documented as of this encounter
--- OUTSIDE RECORDS SUMMARY | 2024-12-05 19:05 | XMS_ITS | Encounter Summary ---
Author Organization [facility] Address [address] [facility] [place] [address] Care Team Providers Care Face Burler Name Role Phone Adebayo Quinones MD Primary Care Provider [phone] Encounter Details Date Type Department Care Team (Late st Contact Info) Description 11/10/2024 Abstract [facility] [address] [place] [address] Miguel Hannon DO [address] [facility] [address] [place], [facility]11 Social History Tobacco Use Types Packs/Day Years [...] Description 12/16/2024 1:10 PM EDT Routine [facility] [address] [place] [address] Maureen Mitchell PA [address] [facility] [address] [place], [place] [id number] 12/23/2024 11:30 AM EDT Routine [facility] [address] [place] [address] Miguel Hannon, DO [address] [facility] [place] [address] 12/30/2024 8:30 AM EDT Routine [facility] [address] [place] [address] Maureen Mitchell PA [address] [facility] [address] [place], [place] [address] 01/06/2025 9:10 AM EDT Routine [facility] [address] [place] [address] [place] [address] Miguel Hannon, DO [address] [facility] [address] [place], [facility]11 documented as of this encounter Visit Diagnoses Not on filedocumented in this encounter Care Teams Face Burler Relationship Specialty Start Date End Date Adebayo Quinones MD [address] [place] [address] PCP - General Family Medicine 11/19/23 documented as of this encounter
--- OUTSIDE RECORDS SUMMARY | 2024-12-05 19:05 | XMS_ITS | Encounter Summary ---
Author Organization [facility] Address [address] [facility] [place] [address] Care Team Providers Care Long Chain Quiller Tender Name Role Phone Adebayo Solares MD Primary Care Provider [phone] Encounter Details Date Type Department Care Team (Late st Contact Info) Description 11/27/2024 Clinisync Result Encounter [facility] External Department Unsolicited Kenn Hannon DO [address] [place], [place] [id number] Social History Tobacco Use Types Packs/Day Years [...] PM EDT Routine [facility] HERNANDEZ [address] [facility] [place] [address] Maureen Mitchell PA [address] [place], [place] [id number] 12/23/2024 11:30 AM EDT Routine [facility] HERNANDEZ [address] [facility] [place] [address] Kenn Hnanon, DO [address] [facility] [place] [address] 12/30/2024 8:30 AM EDT Routine [facility] [address] [place] [address] [place] [phone] Maureen Mitchell PA [address] [facility] [place] [address] 01/06/2025 9:10 AM EDT Routine [facility] [address] [place] [address] [place] [phone] Kenn Hannon, DO [address] [facility] [place] [address] documented as of this encounter Procedures Procedure Name Priority Date/Time Associated Diagnosis Comments US OB BPP W NON-STRESS 11/27/2024 11:40 PM EDT documented in this encounter Results * US OB BPP W NON-STRESS (11/27/2024 11:40 PM EDT) Anatomical Region Laterality Modality Other 11/27/2024 11:4 0 PM EDT Narrative 11/27/2024 11:42 PM EDT The [address] [address] Ultrasound Report Signed Patient: JAVID TRIPLETT MR#: [id number] : 1990 Acct:[id number] Age/Sex: 33 / F ADM Date: 11/27/24 Loc: US Attending Dr: Kenn Hannon D.O. Ordering Physician: Kenn Hannon D.O. Date of Service: 11/27/24 Procedure(s): US OB BPP w non-stress Accession Number(s): [id number] cc: Kenn Hannon D.O.; ADEBAYO SOLARES D.O. [address] [address] Patient Name: JAVID TRIPLETT MRN: [facility]:[id number] date: 1990 Sex: F Assigned Patient Location: [facility] Current Patient Location: Accession/Order Number: [id number] Exam Date: 11/27/2024 23:39 Report Date: 11/27/2024 23:40 At the request of: KENN HANNON DO Procedure: US OB BPP w [...] Deutsch M.D. 11/27/2024 11:40 PM Dictation Location: [place] Electronically authenticated by: [id number] Y Date: 11/27/2024 23:40 Dictated By: Sergo Deutsch D.O. Signed By: 11/27/24 234 DD/ 39 TD/TT: Optical Design Engineer: Procedure Note Radiology, Radiologist, MD - 11/27/2024 [place] [address] Ultrasound Report Signed Patient: JAVID TRIPLETT DMR#: [id number] : 1990Acct:[id number] Age/Sex: 33 / FADM Date: 11/27/24 Loc: US Attending Dr: Kenn Hannon D.O. Ordering Physician: Kenn Hannon D.O. Date of Service: 11/27/24 Procedure(s): US OB BPP w non-stress Accession Number(s): [id number] cc: Kenn Hannon D.O.; ADEBAYO SOLARES D.O. [address] [address] Patient Name: JAVID TRIPLETT MRN: [id number] date: 1990 Sex: F Assigned Patient Location: [facility] Current Patient Location: Accession/Order Number: [id number] Exam Date: 11/27/2024 23:39 Report Date: 11/27/2024 23:40 At the request of: KENN HANNON DO Procedure: US OB BPP w non-stress Ultrasound biophysical profile HISTORY: Gestational diabetes Adequate breathing movement, gross body movement, tone and amniotic fluid volume for total score of 8 out of 8. The amniotic fluidindex is 14.4cm within normal limits. The heart rate 145 bpm. Possible nuchal cord US/US OB BPP w non-stress IMPRESSION: Adequate ultrasound biophysical profile Impression dictated by: Sergo Deutsch M.D. 11/27/2024 11:40 PM Dictation Location: [place] [address] Electronically authenticated by: [id number] Y Date: 3:40 Dictated By: Sergo Deutsch D.O. Signed By:11/27/242 DD/ 39 TD/TT: Optical Design Engineer: us Kenn Hannon DO [facility] Final Result documented in this encounter Visit Diagnoses Not on filedocumented in this encounter Care Teams Long Chain Quiller Tender Relationship Specialty Start Date End Date Adebayo Solares MD [address] [place] [address] PCP - General Family Medicine 11/19/23 documented as of this encounter
--- OUTSIDE RECORDS SUMMARY | 2024-12-05 19:05 | XMS_ITS | Encounter Summary ---
Author Organization [facility] Address [address] [facility] [place] [address] Care Team Providers Care Non Licensed Operator Name Role Phone Adebayo Quinones MD Primary Care Provider [phone] Encounter Details Date Type Department Care Team (Late Contact Info) Description 12/02/2024 Bamboo flowsheet [facility] HERNANDEZ [address] [facility] [place] [address] Miguel Hannon DO [address] [facility] [address] [place], [facility] Social History Tobacco Use Types Packs/Day [...] PM EDT Routine [facility] Jairo HERNANDEZ [address] [facility] [place] [phone] Maureen Mitchell PA [address] [facility] [address] [place], [place] [id number] 12/23/2024 11:30 AM EDT Routine [facility] [address] [facility] [place] [address] Miguel Hannon, DO [address] [facility] [place] [address] 12/30/2024 8:30 AM EDT Routine [facility] [address] [place] [address] [place] [address] Maureen Mitchell PA [address] [facility] [place] [address] 01/06/2025 9:10 AM EDT Routine [facility] [address] [place] [address] [place] [address] Miguel Hannon, DO [address] [facility] [place] [address] documented as of this encounter Visit Diagnoses Not on filedocumented in this encounter Care Teams Non Licensed Operator Relationship Specialty Start Date End Date Adebayo Quinones MD [address] [place] [address] PCP - General Family Medicine 11/19/23 documented as of this encounter
--- OUTSIDE RECORDS SUMMARY | 2024-12-05 19:05 | XMS_ITS | Encounter Summary ---
Author Organization [facility] Vault[facility] s tem Address [id number] [address] [place] [address] Care Team Providers Care Hair Preparer Name Role Phone Unavailable Primary Care Provider Unavailabl e Encounter Details Date Type Department Care Team (Latest Contact Info) Description 11/28/2024 Travel Social History Tobacco Use Types Packs/Day Years Used Date Smoking Tobacco: Never Smokeless Tobacco: Never Alcohol Use Standard Drinks/Week Comments Not Currently [...] 12/11/2024 1:00 PM EDT Appointment [facility] [place] [address] [facility] [address] [place] [phone] 12/18/2024 8:00 AM EDT Telemedicine Maternal- Medicine at [facility] [address] [place] [phone] Hanny Ware, MIRROR SPECIALIST-STEREOPTIC PROJECTION TOPOGRAPHER [address] [place] [address] documented as of this encounter Visit Diagnoses Not on filedocumented in this encounter
--- OUTSIDE RECORDS SUMMARY | 2024-12-05 19:05 | XMS_ITS | Encounter Summary ---
Author Organization [facility] Address [address] [facility] [place] [address] Care Team Providers Care Sawmill Worker Name Role Phone Adebayo Quinones MD Primary Care Provider [phone] Encounter Details Date Type Department Care Team (Late Contact Info) Description 12/13/2023 Abstract NOM[facility] HERNANDEZ [address] [facility] [address] Miguel Hannon DO [address] [facility] [address] [place], [place] [address] Social History Tobacco Use Types Packs/Day Years [...] PM EDT Routine [facility] Jairo HERNANDEZ [address] [place] [address] Maureen Mitchell PA [address] [place], [facility]11 12/23/2024 11:30 AM EDT Routine NOMJosh HERNANDEZ [address] [place], [place] [address] [place] [address] Miguel Hannon, DO [address] [facility] [place] [address] 12/30/2024 8:30 AM EDT Routine [facility] [place] [facility] [address] [facility] [phone] Maureen Mitchell PA [address] [place] [address] 01/06/2025 9:10 AM EDT Routine [facility] [address] [facility] [address] Miguel Hannon, [address] [facility] [place] [address] documented as of this encounter Visit Diagnoses Not on filedocumented in this encounter Care Teams Sawmill Worker Relationship Specialty Start Date End Date Adebayo Quinones MD [address] [place] [address] PCP - General Family Medicine 11/19/23 documented as of this encounter
--- OUTSIDE RECORDS SUMMARY | 2024-12-05 19:05 | XMS_ITS | Encounter Summary ---
Author Organization The [facility] Address [address] [place] [address] Care Team Providers Care Relief Master Name Role Phone Adebayo Quinones DO Primary Care Provider [phone] Encounter Details Date Type Department Care Team (Late st Contact Info) Description 10/22/2024 Orders Only [facility] [address] [place] [address] Janell Felton MD [address] [place] [address] Social History Tobacco Use Types [...] on filedocumented in this encounter Care Teams Relief Master Relationship Specialty Start Date End Date Adebayo Quinones DO [address] [place] [address] PCP - General 11/14/22 documented as of this encounter
--- OUTSIDE RECORDS SUMMARY | 2024-12-05 19:05 | XMS_ITS | Clinical Summary ---
Author Organization [facility] Address [address] [address] Care Team Providers Care Dialysis Equipment Technician Name Role Phone Adebayo Quinones DO Primary Care Provider [phone] Allergies No known active allergies Medications omeprazole [...] Encounters Date Type Department Care Team Description 11/24/2024 3:30 PM EDT Ancillary Procedure [facility] [address] [place] [address] Awareness of heartbeats 11/12/2024 Orders Only [facility] [place] [facility] [address] [place] [address] Yoseph Mcintosh MD 10/22/2024 1:50 AM EDT Ancillary Procedure [facility] [address] [place] [address] Awareness of heartbeats 10/22/2024 Orders Only [facility] [address] [place] [address] Janell Felton MD 10/21/2024 10:00 AM EDT Office Visit [facility] [address] [place] [address] Yoseph Mcintosh MD Palpitations (Primary Dx) from [...] this topic Medical Devices Implanted Type Area Route Sales Trainee Device Identifier Shelf Expiration Date Model / Serial / Lot Monitor,Cardi ac,Lux,Dxii+I - [id number] - [id number] Implanted:Qty : 1 on 06/18/2023 by Yoseph Mcintosh MD at [facility] Implantable Loop Recorder Left: Chest Jimdo 11/26/2024 [id number] / [id number] / Procedures Procedure Name Priority Date/Time Associated Diagnosis Comments CARDIAC DEVICE CHECK CHECK - REMOTE Routine 11/28/2024 11:31 AM EDT Awareness of heartbeats CARDIAC DEVICE CHECK CHECK - REMOTE Routine 11/12/2024 4:50 PM EDT Awareness of heartbeats CARDIAC DEVICE CHECK - REMOTE - LOOP RECORDER (ILR) Routine 11/12/2024 12:00 AM EDT CARDIAC DEVICE CHECK - REMOTE - LOOP RECORDER (ILR) Routine 10/22/2024 12:00 AM EDT from Last 3 Months Results * CARDIAC DEVICE CHECK - REMOTE - LOOP RECORDER (ILR) (11/28/2024 11:31 AM EDT) Only the most recent of2 resultswithin the time period is included. us Yoseph Mcintosh MD CV IMPLANTABLE CARDIAC DEVICE CA OCEDURES Final Result CPACS * Cardiac device check - Remote loop recorder (ILR) (11/12/2024 12:00 AM EDT) Only the most recent of2 resultswithin the time period is included. Anatomical Region Laterality Modality Other 11/12/2024 us Yoseph Mcintosh MD CV IMPLANTABLE CARDIAC DEVICE CA OCEDURES Final Result from Last 3 Months Insurance Care Teams Dialysis Equipment Technician Relationship Specialty Start Date End Date Adebayo Quinones DO [address] [place] [address] PCP - General 11/14/22
--- OUTSIDE RECORDS SUMMARY | 2024-12-05 19:05 | XMS_ITS | Encounter Summary ---
Author Organization [facility] Address [address] [place] [address] Care Team Providers Care Senior Manager Quality Assurance Name Role Phone Adebayo Quinones DO Primary Care Provider [phone] Encounter Details Date Type Department Care Team (Late st Contact Info) Description 08/21/2024 Orders Only [facility] [address] [place] [address] Janell Felton MD [address] [place] [address] Social History Tobacco Use Types [...] on filedocumented in this encounter Care Teams Senior Manager Quality Assurance Relationship Specialty Start Date End Date Adebayo Quinones DO [address] [place] [address] PCP - General 11/14/22 documented as of this encounter
--- OUTSIDE RECORDS SUMMARY | 2024-12-05 19:05 | XMS_ITS | Clinical Summary ---
Author Organization [facility] Address [address] [place] [address] Care Team Providers Care Community Liaison Officer Name Role Phone Adebayo Solares MD Primary Care Provider + [phone] Allergies No known active allergies Medications omeprazole [...] daily. 1 kit 5 11/11/19 26 Active Lantus SoloStar 100 UNIT/ML pen Inject under the skin at bedtime 5 Active Continuous Glucose Sensor (Dexcom G7 Sensor) miscIndications: Gestational diabetes mellitus (GDM), antepartum, gestational diabetes method of control unspecified ([facility]) 1 each Every 10 (ten) days 3 each 1 5 01/02/20 25 Active Encounters Date Type Department Care Team Description 12/02/2024 8:40 AM [place] [address] Kenn Hannon, Third trimester ([facility]); 33 weeks gestation of ([facility]); Gestational diabetes mellitus (GDM), antepartum, gestational diabetes method of control unspecified ([facility]) 12/02/2024 [place] [address] Kenn Hannon DO 11/27/2024 Clinisync Result Encounter NOMS External Department Unsolicited Kenn Hannon, 11/18/2024 8:50 [place] [address] Kenn Hannon, Third trimester ([facility]); 31 weeks gestation of ([facility]); Gestational diabetes mellitus (GDM), antepartum, gestational diabetes method of control unspecified ([facility]) 11/18/2024 [place] [address] Katarzyna Malagon LPN 11/18/2024 [place] [address] Kenn Hannon, DO 11/14/2024 Clinisync Result Encounter NOMS External Department Unsolicited Kenn Hannon, DO 11/10/2024 Abstract [facility] [address] Kenn Hannon, DO 11/10/2024 Telephone [facility] [place] [address] Kenn Hannon, DO 11/10/2024 Clinisync Result Encounter NOMS External Department Unsolicited Kenn Hannon, DO 11/03/2024 3:10 PM EDT Routine [facility] [address] Kenn Hannon, DO 29 weeks gestation of ([facility]); Third trimester ([facility]); Encounter for follow-up ultrasound of anatomy ([facility]) 11/03/2024 Bamboo flowsheet [facility] [address] [place] [address] Kenn Hannon, DO 10/31/2024 Clinisync Result Encounter NOMS External Department Unsolicited Maureen Feliz PA 10/21/2024 8:30 AM EDT Routine [facility] [address] Maureen Feliz PA Size of fetus inconsistent with dates in second trimester ([facility]) (Primary Dx); Second trimester ([facility]); 27 weeks gestation of ([facility]) 10/21/2024 Bamboo flowsheet [facility] [address] Maureen Feliz PA 10/20/2024 Travel 09/16/2024 9:30 AM EDT Routine [facility] [place] [address] Kenn Hannon, Second trimester ([facility]); 22 weeks gestation of ([facility]); Elevated glucose tolerance test 09/16/2024 8:30 AM EDT Ancillary Procedure [facility] [address] [place] [address] [place] [address] Screening, , for anatomic survey ([facility]) from Last 3 Months Family History Medical History Relation Name Comments Arthritis Father Adebayo Marco Diabetes Father Adebayo Marco Hyperlipidemia Father Adebayo Marco Hypertension Father Adebayo Marco Kidney disease Father Adebayo Marco Stroke Father Adebayo Marco Diabetes Maternal Grandfather James [place] Hypertension Maternal Grandmother Sandy Lissa Diabetes Paternal Grandfather Rito Marco Kidney disease Paternal Grandfather Rito Marco Relation Name Status Comments Father Adebayo Marco Maternal Grandfather James Lissa Maternal Grandmother Sandy [place] Paternal Grandfather Rito Marco Social History Tobacco [...] Pressure 114/76 12/02/2024 8:57 AM EDT Pulse 88 11/19/2023 8:30 AM EDT Temperature - - Respiratory Rate 16 11/19/2023 8:30 AM EDT Oxygen Saturation 99% 11/19/2023 8:30 AM EDT Inhaled Oxygen Concentration - - Weight 131 kg (289 lb 12.8 oz) 12/02/2024 8:57 A M EDT Height 182.9 cm (6') 01/16/2024 4:38 PM EDT Body Mass Index 39.3 01/16/2024 4:38 PM EDT Plan of Treatment Upcoming Encounters Date Type Department Care Team (Late st Contact Info) Description 12/16/2024 1:10 PM EDT Routine [facility] [address] [place] [address] [place] [address] Maureen Feliz PA [address] [place] [address] 12/23/2024 11:30 AM EDT Routine [facility] [address] [place] [address] [place] [address] Kenn Hannon, DO [address] [place] [address] 12/30/2024 8:30 AM EDT Routine [facility] [address] [place] [address] [place] [address] Maureen Feliz PA [address] [place] [address] 01/06/2025 9:10 AM EDT Routine [facility] [address] [place] [address] [place] [address] Kenn Hannon, [address] [place] [address] Health Maintenance Due Date Last Done Comments Influenza Vaccine (#1) 2024 , 02/12/2023, 02/03/2022, Additional history exists Cervical Cancer Screening 12/12/2028 HPV/Cotest 12/12/2028 Pap Smear 12/12/2028 12/13/2023, 05/17/2012 Procedures Procedure Name Priority Date/Time Associated Diagnosis Comments POCT URINALYSIS DIPSTICK Routine 12/02/2024 9:04 AM EDT Third trimester ([facility]) 33 weeks gestation of ([facility]) US OB BPP W NON-STRESS 11/27/2024 11:40 PM EDT POCT URINALYSIS DIPSTICK Routine 11/18/2024 10:23 AM EDT Third trimester ([facility]) 31 weeks gestation of ([facility]) US OB INCOMPLETE ANATOMY 11/14/2024 10:06 AM EDT GLUCOSE TOLERANCE 3 HOUR Routine 11/10/2024 8:45 AM EDT POCT URINALYSIS DIPSTICK Routine 11/03/2024 3:12 PM EDT 29 weeks gestation of ([facility]) Third trimester ([facility]) US OB GROWTH 10/31/2024 7:41 AM EDT POCT URINALYSIS DIPSTICK Routine 10/21/2024 8:49 AM EDT Second trimester ([facility]) 27 weeks gestation of ([facility]) POCT URINALYSIS DIPSTICK Routine 09/16/2024 9:55 AM EDT Second trimester ([facility]) US OB 14+ WEEKS ANATOMY SCAN Routine 09/16/2024 9:34 AM EDT Screening, , for anatomic survey ([facility]) PAP SMEAR Routine 12/13/2023 12:00 AM EDT from Last 3 Months or Most Recently Relevant to Health Maintenance Results * (ABNORMAL) POCT urinalysis dipstick manually resulted (12/02/2024 9:04 AM EDT) Only the most recent of5 resultswithin the time period is included. Color, UA Yellow Clarity, UA Clear Glucose, [...] - Positive Urine 12/02/2024 9:04 AM EDT us Kenn Hannon DO POINT OF CARE TEST ENTER/EDIT OR DERABLES Final Result * US OB BPP W NON-STRESS (11/27/2024 11:40 PM EDT) Anatomical Region Laterality Modality Other 11/27/2024 11:4 0 PM EDT Narrative 11/27/2024 11:42 [place] [address] Ultrasound Report Signed Patient: JAVID PRASAD MR#: [id number] : 1990 Acct:[id number] Age/Sex: 33 / F ADM Date: 11/27/24 Loc: US Attending Dr: Kenn Hannon D.O. Ordering Physician: Kenn Hannon D.O. Date of Service: 11/27/24 Procedure(s): US OB BPP w non-stress Accession Number(s): [id number] cc: Kenn Hannon D.O.; ADEBAYO SOLARES D.O. [place] [id number] Patient Name: JAVID PRASAD MRN: [id number] date: 1990 Sex: F Assigned Patient Location: [facility] Current Patient Location: Accession/Order Number: [id number] Exam Date: 11/27/2024 23:39 Report Date: 11/27/2024 [...] Deutsch M.D. 11/27/2024 11:40 PM Dictation Location: [place] [address] Electronically authenticated by: [id number] Y Date: 11/27/2024 23:40 Dictated By: Sergo Deutsch D.O. Signed By: 11/27/242341 DD/ 39 TD/TT: Book Solicitor: Procedure Note Radiology, Radiologist, MD - 11/27/2024 [place] [address] Ultrasound Report Signed Patient: JAVID PRASAD DMR#: [id number] : 1990Acct:[id number] Age/Sex: 33 / FADM Date: 11/27/24 Loc: US Attending Dr: Kenn Hannon D.O. Ordering Physician: Kenn Hannon D.O. Date of Service: 11/27/24 Procedure(s): US OB BPP w non-stress Accession Number(s): [id number] cc: Kenn Hannon D.O.; ADEBAYO SOLARES D.O. [place] [id number] Patient Name: JAVID PRASAD MRN: [id number] date: 1990 Sex: F Assigned Patient Location: [facility] Current Patient Location: Accession/Order Number: [id number] Exam Date: 11/27/2024 23:39 Report Date: 11/27/2024 [...] Deutsch M.D. 11/27/2024 11:40 PM Dictation Location: [place] [address] Electronically authenticated by: [id number] Y Date: 3:40 Dictated By: Sergo Deutsch D.O. Signed By:11/27/242341 DD/ 39 TD/TT: Book Solicitor: us Kenn Hannon DO [facility] Final Result * US OB INCOMPLETE ANATOMY (11/14/2024 10:06 AM EDT) Anatomical Region Laterality Modality Other 11/14/2024 10:0 6 AM EDT Narrative 11/14/2024 10:09 [place] [address] Ultrasound Report Signed Patient: JAVID PRASAD MR#: [id number] : 1990 Acct:[id number] Age/Sex: 33 / F ADM Date: 11/13/24 Loc: US Attending Dr: Kenn Hannon D.O. Ordering Physician: Kenn Hannon D.O. Date of Service: 11/13/24 Procedure(s): US OB incomplete anatomy Accession Number(s): [id number] cc: Kenn Hannon D.O.; ADEBAYO SOLARES D.O. [place] [id number] Patient Name: JVAID PRASAD MRN: [id number] date: 1990 Sex: F Assigned Patient Location: US Current Patient Location: Accession/Order Number: [id number] Exam Date: 11/14/2024 09:56 Report Date: 11/14/2024 [...] Jr., D.O. 11/14/2024 10:06 AM Dictation Location: [place] [address] Electronically authenticated by: [id number] Y Date: 11/14/2024 10:06 Dictated By: Mark Anthony Conner M.D. Signed By: 11/14/24 1009 DD/ 1006 TD/TT: Book Solicitor: Procedure Note Radiology, Radiologist, MD - 11/14/2024 [place] [address] Ultrasound Report Signed Patient: JAVID PRASAD DMR#: [id number] : 1990Acct:[id number] Age/Sex: 33 / FADM Date: 11/13/24 Loc: US Attending Dr: Kenn Hannon D.O. Ordering Physician: Kenn Hannon D.O. Date of Service: 11/13/24 Procedure(s): US OB incomplete anatomy Accession Number(s): [id number] cc: Kenn Hannon D.O.; ADEBAYO SOLARES D.O. [place] [id number] Patient Name: JAVID PRASAD MRN: [id number] date: 1990 Sex: F Assigned Patient Location: US Current Patient Location: Accession/Order Number: [id number] Exam Date: 11/14/2024 09:56 Report Date: 11/14/2024 [...] Impression dictated by: Mark Anthony Conner Jr., DLauren 11/14/2024 10:06 AM Dictation Location: [place] [address] Electronically authenticated by: [id number] Y Date: 0:06 Dictated By: Mark Anthony Conner M.D. Signed By:11/14/24 1009 DD/ 1006 TD/TT: Book Solicitor: us Kenn Riddhi DO [facility] Final Result * (ABNORMAL) GLUCOSE TOLERANCE 3 HOUR (11/10/2024 8:45 AM EDT) GLUCOSE TOLERANCE 3 HOUR (H) mg/dL TB Comment: GLU FAST 113H (<95) Col: 11/10/24 0845 GLU 1HR 208H (<180) Col: 11/10/24 0945 GLU 2HR 152 (<155) Col: 11/10/24 1052 GLU 3HR 81 (<140) Col: 11/10/24 1147 11/10/2024 8:45 AM EDT 11/10/2024 8:47 AM EDT Narrative [facility] - 11/10/2024 12:29 PM EDT us Kenn Riddhi DO LAB BLOOD ORDERABLES Final Resul t [facility] * US OB GROWTH (10/31/2024 7:41 AM EDT) Anatomical Region Laterality Modality Other 10/31/2024 7:41 AM EDT Narrative 10/31/2024 7:44 AM EDT [address] [address] Ultrasound Report Signed Patient: JAVID PRASAD MR#: [id number] : 1990 Acct:[id number] Age/Sex: 33 / F ADM Date: 10/30/24 Loc: US Attending Dr: Maureen Feliz Ordering Physician: Maureen Feliz Date of Service: 10/30/24 Procedure(s): US OB growth Accession Number(s): [id number] cc: Maureen Feliz; ADEBAYO SOLARES D.O. [address] [address] Patient Name: JAVID PRASAD MRN: [id number] date: 1990 Sex: F Assigned Patient Location: US Current Patient Location: Accession/Order Number: [id number] Exam Date: 10/31/2024 07:37 Report Date: 10/31/2024 [...] Crow M.D. 10/31/2024 7:41 AM Dictation Location: [place] [address] Electronically authenticated by: [id number] Y Date: 10/31/2024 07:41 Dictated By: Katarzyna Crow M.D. Signed By: 10/31/24 0744 DD/ 0741 TD/TT: Book Solicitor: Procedure Note Radiology, Radiologist, - 10/31/2024 [place] [address] Ultrasound Report Signed Patient: JAVID PRASAD DMR#: [id number] : 1990Acct:[id number] Age/Sex: 33 / FADM Date: 10/30/24 Loc: US Attending Dr: Maureen Feliz Ordering Physician: Maureen Feliz Date of Service: 10/30/24 Procedure(s): US OB growth Accession Number(s): [id number] cc: Maureen Feliz; ADEBAYO SOLARES D.O. [place] [id number] Patient Name: JAVID PRASAD MRN: [id number] date: 1990 Sex: F Assigned Patient Location: US Current Patient Location: Accession/Order Number: [id number] Exam Date: 10/31/2024 07:37 Report Date: 10/31/2024 [...] Crow M.D. 10/31/2024 7:41 AM Dictation Location: [place] [address] Electronically authenticated by: [id number] Y Date: 7:41 Dictated By: Katarzyna Crow M.D. Signed By:10/31/24 0744 DD/ 0741 TD/TT: Book Solicitor: us Maureen SINGLETON [facility] Final Result [...] is recommended. Interpreted by: Electronically signed by THOMSA QUIÑONES II, MD, PHD at 18-Sep-2024 08:49:14 AM [facility] Procedure Note Thomas Quiñones MD - 09/18/2024 EXAM: US OB 14+ [...] recommended. Interpreted by: Electronically signed by THOMAS QUIÑONES II, MD, PHD [id number] 08:49:14 AM [facility] us Maureen SINGLETON IMG OB US PROCEDURES Final Resul t * Pap Smear (12/13/2023 12:00 AM EDT) Swab Cervical swab / Unknown us Kenn Riddhi DO LAB CYTOLOGY ORDERABLES Final Re sult EXTERNAL LAB from Last 3 Months or Most Recently Relevant to Health Maintenance Insurance Care Teams Community Liaison Officer Relationship Specialty Start Date End Date Adebayo Solares MD [address] [place] [address] PCP - General Family Medicine 11/19/23
--- OUTSIDE RECORDS SUMMARY | 2024-12-05 19:05 | XMS_ITS | Encounter Summary ---
Author Organization [facility] TeamVisibility [facility] tem Address [facility] [address] [place] [address] Care Team Providers Care Dye Reel Operator Name Role Phone Unavailable Primary Care Provider Unavailabl e Encounter Details Date Type Department Care Team (Late st Contact Info) Description 12/03/2024 Telephone Maternal- Medicine at [facility] [address] [facility] [place] [address] Juli Quezada LD Social History Tobacco Use Types Packs/Day Years [...] Miscellaneous Notes * Telephone Encounter - ENE Harris - 12/03/2024 3:26 PM EDT Called patient regarding Dexcom CGM report from 11/29 to 12/01/24 and had to leave a message. RADHA Mathur, reviewed patient's report and increased her Lantus dose to 12 units each evening. Will send patient a MessageGears message as well and asked patient to confirm with us via phone or Almondyhart that she received the dose change information. documented in this encounter Plan of Treatment Upcoming Encounters Date Type Department Care Team (Late st Contact Info) Description 12/11/2024 1:00 PM EDT Appointment [facility]aternal Medicine [place] [address] [facility] [address] [place] [address] 12/18/2024 8:00 AM EDT Telemedicine Maternal- Medicine at [facility] [address] [place] [address] Hanny Ware, CONCRETE PLANT LABORER[facility] [address] [place] [address] documented as of this encounter Visit Diagnoses Not on filedocumented in this encounter
--- OUTSIDE RECORDS SUMMARY | 2024-12-05 19:05 | XMS_ITS | Encounter Summary ---
Author Organization [facility] Address [address] [facility] [place] [address] Care Team Providers Care Front Desk Person Name Role Phone Adebayo Quinones MD Primary Care Provider + [phone] Encounter Details Date Type Department Care Team (Late st Contact Info) Description 11/18/2024 Telephone [facility] [place] [place] [address] Katarzyna Malagon LPN Social History Tobacco [...] 11/18/2024 9:26 AM EDT Please refer to [facility] for completion of anatomy scan, RVOT and LVOT and lips not evaluated. documented in this encounter Plan of Treatment Upcoming Encounters Date Type Department Care Team (Late st Contact Info) Description 12/16/2024 1:10 PM EDT Routine [facility] [place] [address] [place] [address] Maureen Mitchell, PA [address] [place] [address] 12/23/2024 11:30 AM EDT Routine [facility] [place] [facility] [address] [place] [address] [place] [address] Miguel Hannon, DO [address] [facility] [address] [place], [place] [address] 12/30/2024 8:30 AM EDT Routine [facility] [address] [place] [address] [place] [address] Maureen Mitchell, PA [address] [place] [address] 01/06/2025 9:10 AM EDT Routine [facility] [address] [place] [address] [place] [address] Miguel Hannon, DO [address] [facility] [address] [place], [facility] documented as of this encounter Visit Diagnoses Not on filedocumented in this encounter Care Teams Front Desk Person Relationship Specialty Start Date End Date Adebayo Quinones MD [address] [place] [address] PCP - General Family Medicine 11/19/23 documented as of this encounter
--- OUTSIDE RECORDS SUMMARY | 2024-12-05 19:05 | XMS_ITS | Patient Health Record ---
Author Organization [facility] [place] Address [address] [place] [address] Care Team Providers Care Training Project Manager Name Role Phone Adebayo Quinones Primary Care [...] day Active PNV Active Vitamin D (Ergocalciferol) 42611 UNIT 1 capsule Orally qweekly for 30 days 06/18/2023 Active Meclizine HCl Not-Ta joy Immunizations Vaccine Route Administration Date Status Comme nts Flu, Fluzone (96820) 6 mos+, single-dose syringe/vial (2420-6378) Unknown 02/12/2023 Administered Social History Tobacco Use: Social History Observation Description Date Details (start date - stop date) Never Smoker NA - NA Tobacco Use/Smoking Question Answer Notes Patient 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 Alcohol Screen (Audit-C) Question Answer Notes Did you have a drink containing alcohol in the p ast year? 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 Problems Problem Type SNOMED Code ICD Code Onset Dates Problem Status W/U Status Risk Notes Problem 06326112 Vitamin D deficiency, unspecified (E55.9) Active confirmed Problem 07497107521717 Morbid (severe) obesity due to excess calories (E66.01) Active confirmed Problem 090363056 Obesity, unspecified (E66.9) Active confirmed Problem 761944335 Mixed hyperlipidemia (E78.2) Active confirmed Problem 4865336 Female infertili ty, unspecified (N97.9) Active confirmed Problem 90876080 CAROLA (obstructive sleep apnea) (G47.33) Active confirmed Problem 065302350 Gastroesophageal reflux disease without esophagitis (K21.9) Active confirmed Problem 31925632 Sleep walking (F51.3) Active confirmed Problem 918929486 Insomnia, unspecified type (G47.00) Active confirmed Problem 87208347 Night terrors (F51.4) Active confirmed Problem 493800659 Body mass index [BMI] 36.0-36.9, adult (Z68.36) Active confirmed Problem 234187182 Body mass index [BMI] 38.0-38.9, adult (Z68.38) Active confirmed Encounters Encounter Location Date Provider Diagnosis [facility] [address] [place] [address] 11/11/2024 Adebayo Quinones Plan Of Treatment Pending [...] Name:Adebayo burr, 01/26/2025 10:00:00 AM, [address] [place], [address], Insurance Providers Payer Name Payer Address Payer Phone Subscriber Number Group Number Insured Name Patient Relationship to Insured Coverage Start Date Coverage End Date [employer] PPO PLUS LOCAL PLAN [address] [place] [phone] [id number] Andressa Prasad Self - patient is the insured 4 Medical (General) History Medical History History ICD Code prediabetes B12 deficiency hyperlipidemia gerd carola
--- OUTSIDE RECORDS SUMMARY | 2024-12-05 19:05 | XMS_ITS | Encounter Summary ---
Author Organization [facility] tem Address [id number] [address] [place] [address] Care Team Providers Care Swimming Coach Name Role Phone Unavailable Primary Care Provider Unavailabl e Encounter Details Date Type Department Care Team (Late st Contact Info) Description 11/13/2024 Orders Only Maternal- Medicine at [facility] [address] [place] [address] Ref Prov, [place] [address] Social History Tobacco Use Types Packs/Day Years [...] 12/11/2024 1:00 PM EDT Appointment Maternal Medicine [place] [address] [facility] [address] [place] [address] 12/18/2024 8:00 AM EDT Telemedicine Maternal- Medicine at [facility] [address] [place] [address] Hanny Ware, INDUSTRIAL ELECTRICIAN-VICE PRESIDENT [employer] [address] [place] [address] documented as of this encounter Procedures Procedure [...] 11:25 AM EDT) Anatomical Region Laterality Modality OB-SCREEN OPERATOR Ultrasound us Not In System Ref Prov IMG US ORDERABLES Final R esult * Ultrasound limited 1 or more fetus (11/13/2024 11:24 AM EDT) Anatomical Region Laterality Modality OB-SCREEN OPERATOR Ultrasound us Not In System Ref Prov IMG US ORDERABLES Final R esult * Ultrasound limited 1 or more fetus (11/13/2024 11:22 AM EDT) Anatomical Region Laterality Modality OB-SCREEN OPERATOR Ultrasound us Not In System Ref Prov IMG US ORDERABLES Final R esult documented in this encounter Visit Diagnoses Not on filedocumented in this encounter
--- OUTSIDE RECORDS SUMMARY | 2024-12-05 19:05 | XMS_ITS | Encounter Summary ---
Author Organization [facility] Address [address], [address] [place] [address] Care Team Providers Care Sheet Roller Operator Name Role Phone Unavailable Primary Care Provider Unavailabl e Reason for Referral * Other (Routine) - Closed Specialty Diagnoses / Procedures Referred By Contac t Referred To Contact Cardiology Diagnoses Palpitations Syncope and collapse Procedures Tilt Table Test Clarence Wolf APRN - CNP Phone: tel: fax: Referral ID Status Reason Start Date Expiration Date Visits Re quested Visits Authorized [id number] Closed 11/16/2022 11/16/2023 1 1 Encounter Details Date Type Department Care Team (Latest Contact Info) Description 11/16/2022 Transcribe Orders [facility] [address] [place] [address] Clarence Wolf APRN - CNP [address] [place] [address] Palpitations (Primary Dx); Syncope and collapse Social [...]
--- OUTSIDE RECORDS SUMMARY | 2024-12-05 19:05 | XMS_ITS | Encounter Summary ---
Author Organization [facility] Address [address] [facility] [place] [address] Care Team Providers Care Financial Recruiter Name Role Phone Adebayo Quinones MD Primary Care Provider [phone] Encounter Details Date Type Department Care Team (Late Contact Info) Description 12/25/2023 Abstract [facility] [address] [facility] [place] [address] Miguel Hannon DO [address] [facility] [address] [place], [place] [id number] Social History Tobacco Use Types Packs/Day Years [...] Info) Description 12/16/2024 1:10 PM EDT Routine NOMJohs HERNAN[facility] [address] [facility] [place] [address] Maureen Mitchell PA [address] [place], [facility] 12/23/2024 11:30 AM EDT Routine NOMJosh HERNANDEZ [address] [place], [place] [address] [address] Miguel Hannon, DO [address] [facility] [place] [address] 12/30/2024 8:30 AM EDT Routine [facility] [address] [facility] [place] [id number] Maureen Mitchell PA [address] [facility] [place] [address] 01/06/2025 9:10 AM EDT Routine [facility] [address] [facility] [place] [id number] Miguel Hannon, [address] [facility] [place] [address] documented as of this encounter Visit Diagnoses Not on filedocumented in this encounter Care Teams Financial Recruiter Relationship Specialty Start Date End Date Adebayo Quinones MD [address] [place] [id number] PCP - General Family Medicine 11/19/23 documented as of this encounter
--- OUTSIDE RECORDS SUMMARY | 2024-12-05 19:05 | XMS_ITS | CCD ---
Author Organization [facility] CliniSyct Care Team Providers Care Associate Professor Of Management Name Role Phone BECK, DR ADEBAYO Oropeza [...] Unavailable Sak DO, Adebayo Rodas Attending Unavailable SolaresAdebayo Primary Care Unavailable Jaret BUSINESS PROCESS MANAGER-TECHNICAL SOLUTIONS CONSULTANTIsabella Attending Unavaila ble Solares, Adebayo Primary Care Unavailable Jaret BUSINESS PROCESS MANAGER-TECHNICAL SOLUTIONS CONSULTANTIsabella Attending Unavaila ble SolaresAdebayo Primary Care Unavailable Solares, Adebayo Consulting Unavailable SolaresAdbeayo Referring Unavailable EMEKA HERNANDEZ Referring Unavailable Solares Adebayo GOYAL Primary Care Provider Unavailable Primary Care Provider UnavailMARIANA Basilio Attending Unavailable TRENT, MARIANA Referring Unavailable TRENT, MARIANA Referring Unavailable TRENT, MARIANA Referring Unavailable TRENT, MARIANA Referring Unavailable CHALINO, VIRAL Referring Unavailable TRENT, MARIANA Referring Unavailable TRENT, MARIANA Referring Unavailable CHALINO, VIRAL Referring Unavailable TRENT, MARIANA Referring Unavailable TRENT, MARIANA Referring Unavailable CHALINO, VIRAL Referring Unavailable TRENTMARIANA Tan Attending Unavailable RIDDHIMIGUEL R Referring Unavailable NAOMIE CHAHAL Attending Unavailable SAUL GRANADOS Attending Unavailable RIDDHI, MIGUEL R Referring Unavailable RIDDHI, MIGUEL Attending Unavailable PAULA, MAUREEN Attending Unavailable RIDDHI, MIGUEL Attending Unavailable PAULA, MAUREEN Attending Unavailable RIDDHI, MIGUEL Attending Unavailable RIDDHI, MIGUEL Attending Unavailable RIDDHI, MIGUEL Attending Unavailable RIDDHI, MIGUEL Attending Unavailable RIDDHI, MIGUEL Attending Unavailable PAULA, MAUREEN Attending Unavailable Allergies Allergy Classification Reported Allergen(s) Allergy Type Date of Onset Reaction(s) Facility (1 source) No Known Medication Allergies; Translations: [No Known Medication Allergies] Propensity to adverse reactions to drug (disorder) [facility] Repository Medications Current Medications Medication Drug Class(es) Dates Sig (Normalized) Sig (Original) aspirin 81 mg delayed release oral tablet (19 sources) Platelet Aggregation Inhibitor, Nonsteroidal Anti-inflammatory Drug take 1 tablet by mouth in the morning aspirin 81 mg Take 1 tablet (81 mg total) by mouth in the morning. Active Blood [...] ml insulin glargine 100 unt/ml pen injector (6 sources) Insulin Analog Start: 12-03-2024 insulin glargine (LANTUS SOLOSTAR U-100 INSULIN) 100 unit/mL (3 mL) insulin pen Inject 12 units of insulin in the evening, subcutaneously, prime 2 units 15 mL 12/03/2024 Active Start: 11-28-2024 End: 12-03-2024 insulin glargine (LANTUS PADMINI OSTAR U-100 INSULIN) 100 unit/mL (3 mL) insulin pen Inject 10 units of insulin in the evening, subcutaneously, prime 2 units 15 mL 11/28/2024 12/03/2024 Discontinued (Reorder) Start: 11-28-2024 inject 100 [IU] by s ubcutaneous injection at bedtime Lantus SoloStar 100 UNIT/ML pen Inject under the skin at bedtime 11/28/2024 Active isopropyl alcohol 0.7 ml/ml medicated pad (8 sources) Start: 11-10-2024 Alcohol Swabs (Alcohol Prep Pad) 70 % pads Indications: Gestational diabetes mellitus (GDM), antepartum, gestational diabetes method of control unspecified ([facility]) , Elevated glucose tolerance test Apply 1 [...] 30 tablet 11 12/25/2023 2024 Active omeprazole 20 mg delayed release oral capsule (20 sources) Proton Pump Inhibitor take 1 capsule by mouth in the morning omeprazole (PriLOSEC) 20 mg capsule Take 1 capsule (20 mg total) by mouth in the morning. Active omeprazole (PriL OSEC) [address] capsule Take 20 mg [...] Active PNV no.153/FA/om3/dha/epa/fi sh ( GUMMIES ORAL) (8 sources) take 2 doses by mouth in [...] UA Negative Negative - 4(70) +++ mg/dL [facility] Blood, UA Negative Negative - 50 Osmin/mcL [facility] Clarity, UA Clear [facility] re Color, UA Yellow [facility] Glucose, UA Negative Negative - 1999(110) ++++ mg/dL [facility] Interpretation and review of laboratory results Abnormal [facility] Ketones, UA Negative Negative - 160(16) ++++ mg/dL [facility] Leukocytes, UA Positive Negative - 500+++ Oumou/mcL [facility] Nitrite, UA Negative Negative - Positive [facility] pH, UA 6 5 - 9 [facility] Protein, UA Negative Negative - 1999(20) ++++ mg/dL [facility] Spec Grav, UA 1.025 1 - 1.03 [facility] Urobilinogen, UA 1.0 0.2 - 12 mg/dL [facility] POCT Hemoglobin A1con 2024 HbA1c (Bld) [Mass fraction] 5.7 % 4 - 7 % [facility] US OB BPP W NON-STRESS on 11-27-2024 [place] [address] Ultrasound Report Signed Patient: JAVID PRASAD MR#: [id number] : 1990 Acct:[id number] Age/Sex: 33 / F ADM Date: 11/27/24 Loc: US Attending Dr: Miguel Hannon D.O. Ordering Physician: Miguel Hannon D.O. Date of Service: 11/27/24 Procedure(s): US OB BPP w non-stress Accession Number(s): [id number] cc: Miguel Hannon D.O.; ADEBAYO SOLARES D.O. The [address] [address] Patient Name: JAVID PRASAD MRN: [facility]:[id number] date: 1990 Sex: F Assigned Patient Location: [facility] Current Patient Location: Accession/Order Number: [id number] Exam Date: 11/27/2024 23:39 Report Date: 11/27/2024 [...] Deutsch M.D. 11/27/2024 11:40 PM Dictation Location: [place] [address] Electronically authenticated by: [id number] Y Date: 11/27/2024 23:40 Dictated By: Sergo Deutsch D.O. Signed By: 11/27/24 2342 DD/ 39 TD/TT: Diazo Technician: [facility] Radiology, Radiologist, MD - 11/27/2024 The [place] [id number] Ultrasound Report Signed Patient: JAVID PRASAD MR#: [id number] : 1990 Acct:[id number] Age/Sex: 33 / F ADM Date: 11/27/24 Loc: US Attending Dr: Miguel Hannon D.O. Ordering Physician: Miguel Hannon D.O. Date of Service: 11/27/24 Procedure(s): US OB BPP w non-stress Accession Number(s): [id number] cc: Miguel Hnanon D.O.; ADEBAYO SOLARES D.O. [place] [address] Patient Name: JAVID PRASAD MRN: [id number] date: 1990 Sex: F Assigned Patient Location: [facility] Current Patient Location: Accession/Order Number: [id number] Exam Date: 11/27/2024 23:39 Report Date: 11/27/2024 [...] Deutsch M.D. 11/27/2024 11:40 PM Dictation Location: [facility] Electronically authenticated by: [id number] Y Date: 11/27/2024 23:40 Dictated By: Sergo Deutsch D.O. Signed By: 11/27/242341 DD/ 39 TD/TT: Diazo Technician: [facility] Radiology Study observation (narrative) [facility] US OB BPP W NON-STRESS Ordered By: Radiologist Radiology on [facility]-2024 [facility]: Urinalysis macro (dipstick) panel (U)on 11-18-2024 Bilirubin, UA Negative Negative - 4(70) +++ mg/dL [facility] Blood, UA Negative Negative - 50 Osmin/mcL [facility] Clarity, UA Clear [facility] re Color, UA Light Yellow [facility] are Glucose, UA Trace Negative - 2000(110) ++++ mg/dL [facility] Interpretation and review of laboratory results Normal [facility] Ketones, UA Negative Negative - 160(16) ++++ mg/dL [facility] Leukocytes, UA Negative Negative - 500+++ Oumou/mcL [facility] Nitrite, UA Negative Negative - Positive [facility] pH, UA 6 5 - 9 [facility] Protein, UA Negative Negative - 1999(20) ++++ mg/dL [facility] Spec Grav, UA 1.015 1 - 1.03 [facility] care Urobilinogen, UA 4.0 0.2 - 12 mg/dL [facility] US OB INCOMPLETE ANATOMYon 0 11-14-2024 [place] [address] Ultrasound Report Signed Patient: JAVID PRASAD MR#: [id number] : 1990 Acct:[id number] Age/Sex: 33 / F ADM Date: 11/13/24 Loc: US Attending Dr: Miguel Hanonn D.O. Ordering Physician: Miguel Hannon D.O. Date of Service: 11/13/24 Procedure(s): US OB incomplete anatomy Accession Number(s): [id number] cc: Miguel Hannon D.O.; ADEBAYO SOLARES D.O. [place] [id number] Patient Name: JAVID PRASAD MRN: [id number] date: 1990 Sex: F Assigned Patient Location: Current Patient Location: Accession/Order Number: [id number] Exam Date: 11/14/2024 09:56 Report Date: 11/14/2024 [...] Jr., D.O. 11/14/2024 10:06 AM Dictation Location: [place] [address] Electronically authenticated by: [id number] Y Date: 11/14/2024 10:06 Dictated By: Mark Anthony Conner M.D. Signed By: 11/14/24 1009 DD/ 1006 TD/TT: Diazo Technician: [facility] Radiology, Radiologist, MD - 11/14/2024 [place] [address] Ultrasound Report Signed Patient: JAVID PRASAD MR#: [id number] : 1990 Acct:[id number] Age/Sex: 33 / F ADM Date: 11/13/24 Loc: US Attending Dr: Miguel Hannon D.O. Ordering Physician: Miguel Hannon D.O. Date of Service: 11/13/24 Procedure(s): US OB incomplete anatomy Accession Number(s): [id number] cc: Miguel Hannon D.O.; ADEBAYO SOLARES D.O. The [place] [id number] Patient Name: JAVID PRASAD MRN: [facility]:[id number] date: 1990 Sex: F Assigned Patient Location: US Current Patient Location: Accession/Order Number: [id number] Exam Date: 11/14/2024 09:56 Report Date: 11/14/2024 [...] Jr., D.O. 11/14/2024 10:06 AM Dictation Location: [place] [address] Electronically authenticated by: [id number] Y Date: 11/14/2024 10:06 Dictated By: Mark Anthony Conner M.D. Signed By: 11/14/24 1009 DD/ 1006 TD/TT: Diazo Technician: [facility] Radiology Study observation (narrative) [facility] US OB INCOMPLETE ANATOMYOrde red By: Radiologist Radiology on 11-14-2024 [facility] [employer] [facility] Work Phone: GLUCOSE TOLERANCE 3 HOURon 0 11-10-2024 GLUCOSE TOLERANCE 3 HOUR High mg/dL [facility] Comment on above: GLU FAST 113H (<95) Col: 11/10/24 0845 GLU 1HR 208H (<180) Col: 11/10/24 0945 GLU 2HR 152 (<155) Col: 11/10/24 1052 GLU 3HR 81 (<140) Col: 11/10/24 1147 Interpretation and review of laboratory results Abnormal [facility] [employer] Urinalysis macro (dipstick) panel (U)on 11-03-2024 Bilirubin, UA Negative Negative - 4(70) +++ mg/dL [facility] Blood, UA Negative Negative - 50 Osmin/mcL [facility] Clarity, UA Clear [facility] re Color, UA Yellow [facility] e Glucose, UA Positive Negative - 1999(110) ++++ mg/dL [facility] Interpretation and review of laboratory results Abnormal [facility] Ketones, UA Negative Negative - 160(16) ++++ mg/dL [facility] Leukocytes, UA Negative Negative - 500+++ Oumou/mcL [facility] Nitrite, UA Negative Negative - Positive [facility] pH, UA 7 5 - 9 [facility] e Protein, UA Trace Negative - 1999(20) ++++ mg/dL [facility] Spec Grav, UA 1.02 1 - 1.03 [facility] Urobilinogen, UA 1.0 0.2 - 12 mg/dL [facility] US OB GROWTHon 10-31-[address] [address] Ultrasound Report Signed Patient: JAVID PRASAD MR#: [id number] : 1990 Acct:[id number] Age/Sex: 33 / F ADM Date: 10/30/24 Loc: US Attending Dr: Maureen Feliz Ordering Physician: Maureen Feliz Date of Service: 10/30/24 Procedure(s): US OB growth Accession Number(s): [id number] cc: Maureen Feliz; ADEBAYO SOLARES D.O. [address] [address] Patient Name: JAVID PRASAD MRN: [id number] date: 1990 Sex: F Assigned Patient Location: US Current Patient Location: Accession/Order Number: [id number] Exam Date: 10/31/2024 07:37 Report Date: 10/31/2024 [...] Crow M.D. 10/31/2024 7:41 AM Dictation Location: [place] [address] Electronically authenticated by: [id number] Y Date: 10/31/2024 07:41 Dictated By: Katarzyna Crow M.D. Signed By: 10/31/24 0744 DD/ 0741 TD/TT: Diazo Technician: [facility] Radiology, Radiologist, - 10/31/2024 [place] [address] Ultrasound Report Signed Patient: JAVID PRASAD MR#: [id number] : 1990 Acct:[id number] Age/Sex: 33 / F ADM Date: 10/30/24 Loc: US Attending Dr: Maureen Feliz Ordering Physician: Maureen Feliz Date of Service: 10/30/24 Procedure(s): US OB growth Accession Number(s): [id number] cc: Maureen Feliz; ADEBAYO SOLARES D.O. The [place] [id number] Patient Name: JAVID PRASAD MRN: [facility]:[id number] date: 1990 Sex: F Assigned Patient Location: Current Patient Location: Accession/Order Number: [id number] Exam Date: 10/31/2024 07:37 Report Date: 10/31/2024 [...] Crow M.D. 10/31/2024 7:41 AM Dictation Location: [place] [address] Electronically authenticated by: [id number] Y Date: 10/31/2024 07:41 Dictated By: Katarzyna Crow M.D. Signed By: 10/31/24 0744 DD/ 0741 TD/TT: Diazo Technician: [facility] Radiology Study observation (narrative) [facility] OB GROWTHOrdered By: Layne ybarra Radiology on 10-31-2024 [facility] Work Phone: Office Visiton 10-21-2024 Follow-up visit [id number] Javid Prasad 1990 F Date Provider Department Center 10/21/2024 MARIANA WALTER [facility] Family History Problem Relation Age of Onset Atrial fibrillation Mother Diabetes Father Kidney disease Father Heart attack Maternal Grandmother Family Status - Relation Status Age at Mother Alive Father Alive Maternal Grandmother Level of Service:26305 NM OFFICE/OUTPATIENT ESTABLISHED LOW MDM 20 MIN Normal [facility] Urinalysis macro (dipstick) panel (U)on 10-21-2024 Bilirubin, UA Negative Negative - 4(70) +++ mg/dL [facility] Blood, UA Negative Negative - 50 Osmin/mcL [facility] Clarity, UA Clear [facility] re Color, UA Yellow [facility] Glucose, UA Negative Negative - 1999(110) ++++ mg/dL [facility] Interpretation and review of laboratory results Abnormal [facility] Ketones, UA Positive Negative - 160(16) ++++ mg/dL [facility] Leukocytes, UA Negative Negative - 500+++ Oumou/mcL [facility] Nitrite, UA Negative Negative - Positive [facility] pH, UA 5.5 5 - 9 [facility] Protein, UA Negative Negative - 1999(20) ++++ mg/dL [facility] Spec Grav, UA 1.02 1 - 1.03 [facility] Urobilinogen, UA 1.0 0.2 - 12 mg/dL [facility] US OB 14+ WEEKS ANATOMY [...] II, MD, PHD at 18-Sep-2024 08:49:14 AM [facility] Normal Not Available Comment on above: Order Comment: US OB ANATOMY SINGLE W US OB CERVICAL LENGTH Estimated Date of Delivery: 01/17/25 Gestational Age as of 08/19/2024: 18w3d Urinalysis macro (dipstick) panel (U)on 09-16-2024 Bilirubin, UA Negative Negative - 4(70) +++ mg/dL [facility] Blood, UA Negative Negative - 50 Osmin/mcL [facility] Clarity, UA Clear [facility] re Color, UA Yellow [facility] Glucose, UA Negative Negative - 1999(110) ++++ mg/dL [facility] Interpretation and review of laboratory results Normal [facility] Ketones, UA Negative Negative - 160(16) ++++ mg/dL [facility] Leukocytes, UA Negative Negative - 500+++ Oumou/mcL [facility] Nitrite, UA Negative Negative - Positive [facility] pH, UA 6 5 - 9 [facility] e Protein, UA Negative Negative - 1999(20) ++++ mg/dL [facility] Spec Grav, UA 1.025 1 - 1.03 [facility] Urobilinogen, UA 0.2 0.2 - 12 mg/dL [facility] GLUCOSE TOLERANCE 3 HOURon 0 08-23-2024 GLUCOSE TOLERANCE 3 HOUR High mg/dL [facility] Comment on above: GLU FAST 110H (<95) Col: 08/23/24 0738 GLU 1HR 173 (<180) Col: 08/23/24 0839 GLU 2HR 131 (<155) Col: 08/23/24 0939 GLU 3HR 67 (<140) Col: 08/23/24 1040 Interpretation and review of laboratory results Abnormal [facility] RECURRENT VAGINITIS (HTRX)on 08-20-2024 AT[facility]BIUM [facility]INAE 0 [facility] ATOPOBIUM VAGINAE Not detected [facility] BVAB 2,3 (BACTERIAL VAGINOSIS ASSOCIATED BACTERIA 2, 3); MOBILUNCUS SPP 0 [facility] BVAB 2,3 (BACTERIAL VAGINOSIS ASSOCIATED BACTERIA 2, 3); MOBILUNCUS SPP Not detected [facility] AGUSTIN ALBICANS, PARAPSILOSIS, TROPICALIS 0 [facility] AGUSTIN ALBICANS, PARAPSILOSIS, TROPICALIS Not detected [facility] AGUSTIN GLABRATA 0 [facility] AGUSTIN GLABRATA Not detected [facility] AGUSTIN KRUSEI 0 [facility] AGUSTIN KRUSEI Not detected [facility] CHLAMYDIA TRACHOMATIS 0 [facility] CHLAMYDIA TRACHOMATIS Not detected N [facility] GARDNERELLA VAGINALIS 0 [facility] GARDNERELLA VAGINALIS Not detected N [facility] MEGASPHAERA (TYPES 1, 2) 0 [facility] MEGASPHAERA (TYPES 1, 2) Not detected [facility] MYCOPLASMA GENITALIUM 0 [facility] MYCOPLASMA GENITALIUM Not detected N [facility] NEISSERIA GONORRHOEAE 0 NOM [facility] NEISSERIA GONORRHOEAE Not detected N [facility] TRICHOMONAS VAGINALIS 0 [facility] TRICHOMONAS VAGINALIS Not detected [facility] GLUCOSE 1 HOURon 08-19-2024 Glucose [Mass/Vol] 182 mg/dL High NINF - 13 0 mg/dL [facility] Interpretation and review of laboratory results Abnormal [facility] Urinalysis macro (dipstick) panel (U)on 08-19-2024 Bilirubin, UA Positive Negative - 4(70) +++ mg/dL [facility] Comment on above: small Blood, UA Negative Negative - 50 Osmin/mcL [facility] Clarity, UA Clear [facility] re Color, UA Yellow [facility] Glucose, UA Negative Negative - 1999(110) ++++ mg/dL [facility] Interpretation and review of laboratory results Abnormal [facility] Ketones, UA Positive Negative - 160(16) ++++ mg/dL [facility] Comment on above: 15 Leukocytes, UA Negative Negative - 500+++ Oumou/mcL [facility] Nitrite, UA Negative Negative - Positive [facility] pH, UA 6 5 - 9 [facility] Protein, UA Positive Negative - 1999(20) ++++ mg/dL [facility] Comment on above: 30 Spec Grav, UA 1.025 1 - 1.03 [facility] Urobilinogen, UA 0.2 0.2 - 12 mg/dL [facility] Urinalysis macro (dipstick) panel (U)on 07-22-2024 Bilirubin, UA Negative Negative - 4(70) +++ mg/dL [facility] Blood, UA Negative Negative - 50 Osmin/mcL [facility] Clarity, UA Clear [facility] re Color, UA Yellow [facility] Glucose, UA Negative Negative - 1999(110) ++++ mg/dL [facility] Interpretation and review of laboratory results Abnormal [facility] Ketones, UA Positive Negative - 160(16) ++++ mg/dL [facility] Comment on above: trace Leukocytes, UA Negative Negative - 500+++ Oumou/mcL [facility] Nitrite, UA Negative Negative - Positive [facility] pH, UA 6.5 5 - 9 [facility] e Protein, UA Trace Negative - 1999(20) ++++ mg/dL [facility] Spec Grav, UA 1.025 1 - 1.03 [facility] Urobilinogen, UA 0.2 0.2 - 12 mg/dL [facility] CBC and differentialon 07-15 Hematocrit (Bld) [Volume fraction] 42 % 36 - 46 % [facility] Hemoglobin (Bld) [Mass/Vol] 13.6 g/dL 12.0 - 16.0 g/dL [facility] Platelets (Bld) [#/Vol] 392 10*3/uL 150 - 399 10*3/uL [facility] WBC (Bld) [#/Vol] 9.2 10*3/mL 3.3 - 10.0 10*3/mL [facility] CBC without diffon Rbc Mcv (Fl) By Automated Count 85.4 [facility] Drug Screen, Urineon 025 Amphetamine/Methamphe tamine Negative [facility] Barbiturates Negative [facility] Benzodiazepines Negative [facility] Cocaine Metabolite Negative [facility] Methadone Negative [facility] Opiates Negative [facility] Oxycodone Negative [facility] Phencyclidine Negative [facility] Thc Marijuana, Urine Negative [facility] Glucose 1h post 50g loadon 0 07-15-2024 Glucose, 1Hr PP 182 [facility] HBV surface Ag IA Qlon 07-15 Hepatitis B Surface Antigen Negative [facility] HIV 1+2 Ab+HIV1 p24 Ag IA Ql on 07-15-2024 HIV 1&2 AB/AG Non-Reactive [facility] Laboratory - Chemistry and C hemistry - challengeon 07-15-2024 Glucose [Mass/Vol] 111 mg/dL [facility] - Hematology and Cell countson 07-15-2024 HbA1c (Bld) [Mass fraction] 5.5 % 4.0 - 6.0 % [facility] Comment on above: ADA RECOMMENDED LIMI T 4.0 - 6.0 ADA THERAPEUTIC TARGET < 7.0 ACTION SUGGESTED > 7.0 MLR HEMOGLOBIN A1Con [facility] No Panel Informationon 07-15 [facility] Rubella IGG immune statuson 07-15-2024 Rubella immune IgG 1.77 [facility] T. pallidum IgG+IgM IA Ql (S )on 07-15-2024 Syphilis Non-Reactive [facility] Type and screenon 07-15-2024 Abo/Rh(D) Positive [facility] US OB TRANSVAGINALon 025 US OB TRANSVAGINAL [...] II, MD, PHD at 20-Jun-2024 08:24:08 AM [facility] Normal Not Available Comment on above: Order Comment: US OB TRANSVAGINAL No LMP recorded. [facility] PREG QUANT HCGon 025 HCG QUANTITATIVE 2792 mIU/mL Located within [facility] ltare Comment on above: 5-50 0.2-1 WEEK 50-500 1-2 WEEKS 100-5,000 2-3 WEEKS 500-10,000 3-4 WEEKS 1,000-50,000 4-5 WEEKS 10,000-100,000 5-6 WEEKS 15,000-200,000 6-8 WEEKS 10,000-100,000 2-3 MONTHS [facility] PREG QUANT HCGon 025 HCG QUANTITATIVE 713 mIU/mL [facility] Comment on above: 5-50 0.2-1 WEEK 50-500 1-2 WEEKS 100-5,000 2-3 WEEKS 500-10,000 3-4 WEEKS 1,000-50,000 4-5 WEEKS 10,000-100,000 5-6 WEEKS 15,000-200,000 6-8 WEEKS 10,000-100,000 2-3 MONTHS [facility] ALL CBC WITH AUTO DIFFon BASOPHILS ABSOLUTE AUTO 0.1 [facility] Basophils/100 WBC (Bld) 0.8 % 0.2 - 2.0 % [facility] Eosinophils/100 WBC (Bld) 3.5 % 0.9 - 7.0 % [facility] Erythrocyte distribution width (RBC) [Ratio] 13.2 % 11.0 - 15.0 % [facility] Hematocrit (Bld) [Volume fraction] 41.9 % 36.0 - 48.0 % [facility] Hemoglobin (Bld) [Mass/Vol] 13.8 g/dL 12.0 - 16.0 g/dL [facility] IMMATURE GRANULOCYTES ABS AUTO 0.02 [facility] Immature granulocytes/100 WBC (Bld) 0.3 % 0.0 - 0.5 % [facility] LYMPHOCYTES ABSOLUTE AUTO 2.5 [facility] Lymphocytes/100 WBC (Bld) 31.1 % 20.5 - 60.0 % [facility] Healthcare MCH (RBC) [Entitic mass] 27.7 pg 26.7 - 34.0 pg [facility] MCHC (RBC) [Mass/Vol] 32.9 g/dL 29.9 - 35.2 g/dL [facility] MCV (RBC) [Entitic vol] 84 fL 81.0 - 99.0 fL [facility] MONOCYTES ABSOLUTE AUTO 0.5 [facility] Monocytes/100 WBC (Bld) 6.6 % 1.7 - 12.0 % [facility] NEUTROPHILS ABSOLUTE AUTO 4.6 [facility] Neutrophils/100 WBC (Bld) 57.7 % 43.0 - 75.0 % [facility] Platelet mean volume (Bld) [Entitic vol] 9.6 fL 9.5 - 13.5 fL [facility] TBH EO # 0.3 [facility] TBH PLT 429 [facility] TB RBC 4.99 [facility] TB WBC 8 [facility] CLINISYNC [facility] ALL CBC WITH AUTO DIFFon BASOPHILS ABSOLUTE AUTO 0.1 [facility] Basophils/100 WBC (Bld) 0.7 % 0.2 - 2.0 % [facility] Eosinophils/100 WBC (Bld) 3.7 % 0.9 - 7.0 % [facility] Erythrocyte distribution width (RBC) [Ratio] 13.2 % 11.0 - 15.0 % [facility] Hematocrit (Bld) [Volume fraction] 42.2 % 36.0 - 48.0 % [facility] Hemoglobin (Bld) [Mass/Vol] 14 g/dL 12.0 - 16.0 g/dL [facility] IMMATURE GRANULOCYTES ABS AUTO 0.01 [facility] Immature granulocytes/100 WBC (Bld) 0.1 % 0.0 - 0.5 % [facility] LYMPHOCYTES ABSOLUTE AUTO 2.6 [facility] Lymphocytes/100 WBC (Bld) 37.7 % 20.5 - 60.0 % [facility] MCH (RBC) [Entitic mass] 28.1 pg 26.7 - 34.0 pg [facility] MCHC (RBC) [Mass/Vol] 33.2 g/dL 29.9 [...] [facility] Office Visiton 12-25-2023 Follow-up visit [id number] Javid Prasad 1990 F Date Provider Department Center 12/25/2023 MARIANA WALTER CARD [facility] Family History Problem Relation Age of Onset Atrial fibrillation Mother Diabetes Father Kidney disease Father Heart attack Maternal Grandmother Family Status - Relation Status Age at Mother Father Maternal Grandmother Level of Service:75428 [place] OFFICE/OUTPATIENT ESTABLISHED LOW MDM 20 MIN Normal [facility] Cytology Cervical or vaginal smear or scraping [...] She can be sleepy during the day. [place] Sleepiness Scale score: 12. She is sleepy [...] her clinical (more content not included)... Normal [facility] CT HEAD WO CONon 12-21-2021 CT [...] CARLOS GALE Date: 2021-12-21 07:15 Normal [facility] CT TEMPORAL BONES WO CONon 0 12-21-2021 [...] foramen are normal. Visualized paranasal sinuses clear. Driver Starting Gate spaces normal. Orbital contents unremarkable. Posterior fossa structures normal. IMPRESSION: Normal CT of the temporal bones. Electronically authenticated by: LOUIS BRAY Date: 2021-12-21 16:11 Normal [facility] Comprehensive Metabolic Empo n 05-10-2021 Albumin [Mass/Vol] 4.1 g/dL Normal 3.2-5.5 [facility] Comment on above: Performed By: #### E BS LIPID, EBS A1C, EBS CMP #### [address] Albumin/Globulin [Mass ratio] 1.3 {ratio} Normal [facility] Comment on above: Performed By: #### E BS LIPID, EBS A1C, EBS CMP #### [facility] [address] [id number] [place] ALP [Catalytic activity/Vol] 77 U/L Normal 32-[address] [facility] Comment on above: Performed By: #### E BS LIPID, EBS A1C, EBS CMP #### [facility] [address] [id number] [place] ALT [Catalytic activity/Vol] 19 U/L Normal 10-[address] [facility] Comment on above: Performed By: #### E BS LIPID, EBS A1C, EBS CMP #### [facility] [address] [id number] [place] AST [Catalytic activity/Vol] 18 U/L Normal 10-[address] [facility] Comment on above: Performed By: #### E BS LIPID, EBS A1C, EBS CMP #### [facility] [address] [id number] [place] Bilirubin [Mass/Vol] 0.3 mg/dL Normal 0.3-1.2 [facility] Comment on above: Performed By: #### E BS LIPID, EBS A1C, EBS CMP #### [facility] [address] [id number] [place] Calcium [Mass/Vol] 9.2 mg/dL Normal 8.2-10.2 [facility] Comment on above: Performed By: #### E BS LIPID, EBS A1C, EBS CMP #### [facility] [address] [id number] [place] Chloride [Moles/Vol] 104 mmol/L Normal 95-114 [facility] Comment on above: Performed By: #### E BS LIPID, EBS A1C, EBS CMP #### [facility] [address] [id number] [place] CO2 [Moles/Vol] 24.1 mmol/L Normal 22.0-30.0 [facility] Comment on above: Performed By: #### E BS LIPID, EBS A1C, EBS CMP #### [facility] [address] [id number] [place] Creatinine [Mass/Vol] 0.69 mg/dL Normal 0.44-1.[address] [facility] Comment on above: Performed By: #### E BS LIPID, EBS A1C, EBS CMP #### [facility] [address] [place] [address] [place] Estimated GFR ( Liz > 60 [facility] Comment on above: Result Comment: GFR estimated reference range: According to KDOQI guidelines, <60 ml/min/1.73m2 is sufficient to diagnose a patient with chronic kidney disease. Performed By: #### E BS LIPID, EBS A1C, EBS CMP #### [facility] [address] [place] [address] [place] Estimated GFR (Non- Am > 60 [facility] Comment on above: Performed By: #### E BS LIPID, EBS A1C, EBS CMP #### [facility] [address] Globulin (S) [Mass/Vol] 3.1 g/dL [facility] Comment on above: Performed By: #### E BS LIPID, EBS A1C, EBS CMP #### [facility] [address] Glucose [Mass/Vol] 106 mg/dL High 70-100 [facility] Comment on above: Result Comment: ADA recommended reference range Performed By: #### E BS LIPID, EBS A1C, EBS CMP #### [facility] [address] [place] [address] [place] Potassium [Moles/Vol] 4.0 mmol/L Normal 3.5-5.[address] [facility] Comment on above: Performed By: #### E BS LIPID, EBS A1C, EBS CMP #### [facility] [address] [place] [address] [place] Protein [Mass/Vol] 7.2 g/dL Normal 6.1-7.9 [facility] Comment on above: Performed By: #### E BS LIPID, EBS A1C, EBS CMP #### [facility] [address] [id number] [place] Sodium [Moles/Vol] 137 mmol/L Normal 136-146 [facility] Comment on above: Performed By: #### E BS LIPID, EBS A1C, EBS CMP #### [facility] [address] [place] [address] [place] Urea nitrogen [Mass/Vol] 10 mg/dL Normal 9-[address] [facility] Comment on above: Performed By: #### E BS LIPID, EBS A1C, EBS CMP #### [facility] [address] EBS A1C with Estimated Avalec saezn 05-10-2021 Glucose [Mass/Vol] 111 mg/dL Normal [facility] Comment on above: Result Comment: PERF ORMED BY: [address] [place] [address] PATHOLOGIST FAILURE ANALYSIS TECHNICIAN JERRY RAMSEY M.D. Performed By: #### E BS LIPID, EBS A1C, EBS CMP #### [facility] [address] [place] [address] HbA1c (Bld) [Mass fraction] 5.5 % Normal 4.3-5.[address] [facility] Comment on above: Result Comment: Incr eased risk for diabetes: 5.7 - 6.4 diabetes: >6.4 glycemic control for adults with diabetes: <7.0 Performed By: #### E BS LIPID, EBS A1C, EBS CMP #### [facility] [address] Lipid Profileon 05-10-2021 Cholesterol [Mass/Vol] 202 mg/dL High 140-[address] [facility] Comment on above: Result Comment: Chol less than 200 mg/dl low risk Chol 201-239 mg/dl borderline risk Chol 240 mg/dl and greater high risk Performed By: #### E BS LIPID, EBS A1C, EBS CMP #### [facility] [address] Cholesterol in HDL [Mass/Vol] 37 mg/dL Normal 35-[address] [facility] Comment on above: Result Comment: HDL CHOL ATP-III CLASSIFICATION Cardiovascular Risk HDL > or equal to 60 mg/dL LOW HDL < 40 mg/dL HIGH Performed By: #### E BS LIPID, EBS A1C, EBS CMP #### [facility] [address] Cholesterol.total/Cho lesterol in HDL [Mass ratio] 5.5 {ratio} Normal <5.[address] [facility] Comment on above: Result Comment: PERF ORMED BY: [place] [address] PATHOLOGIST FAILURE ANALYSIS TECHNICIAN JERRY RAMSEY M.D. Performed By: #### E BS LIPID, EBS A1C, EBS CMP #### [address] LDL Cholesterol,Calculate d 125 mg/dL High 0-[address] [facility] Comment on above: Result Comment: LDL ATP III CLASSIFICATION LDL less than 100 mg/dL Optimal LDL 100-129 mg/dL Near or above optimal LDL 130-159 mg/dL Borderline high LDL 160-189 mg/dL High LDL greater than 189 mg/dL Very high Performed By: #### E BS LIPID, EBS A1C, EBS CMP #### [address] Triglyceride w/Reflex 199 mg/dL High 35-[address] [facility] Comment on above: Result Comment: TRIG ATP III CLASSIFICATION TRIG less than 150 mg/dL Normal TRIG 150-199 mg/dL Borderline high TRIG 200-500 mg/dL High TRIG greater than 500 mg/dL Very high Standard traceable to the Center for Disease Conrtrol and Prevention (CDC) test method. Performed By: #### E BS LIPID, EBS A1C, EBS CMP #### [address] VLDL CHOLESTEROL 39 mg/dL Normal [facility] Comment on above: Performed By: #### E BS LIPID, EBS A1C, EBS CMP #### [address] Vital Signs Date Time Vital Sign Value Performing Clinician Ronaldo coello 12-02-2024 08:57-0400 Body mass index (BMI) [Ratio] 39.3 kg/m2 [employer] DO Work Phone: [facility] 12-02-2024 08:57-0400 Body weight 131.45 kg [employer] DO Work Phone: [facility] 12-02-2024 08:57-0400 Diastolic blood pressure 76 mm[Hg] Miguel Riddhi DO Work Phone: [facility] 12-02-2024 08:57-0400 Systolic blood pressure 114 mm[Hg] Miguel Riddhi DO Work Phone: [facility] 11-28-2024 11:44-0400 Body height 182.9 cm Saul Granados MD Work Phone: [facility] 11-28-2024 11:44-0400 Body mass index (BMI) [Ratio] 38.9 kg/m2 Saul Granados MD Work Phone: [facility] 11-28-2024 11:44-0400 Body weight 130.09 kg Saul Granados MD Work Phone: [facility] 11-28-2024 11:44-0400 Diastolic blood pressure 60 mm[Hg] Saul Granados MD Work Phone: [facility] 11-28-2024 11:44-0400 Heart rate 96 /min Saul Granados MD Work Phone: [facility] 11-28-2024 11:44-0400 Systolic blood pressure 114 mm[Hg] Saul Granados MD Work Phone: [facility] 11-18-2024 09:04-0400 Body mass index (BMI) [Ratio] 38.52 kg/m2 Miguel Riddhi DO Work Phone: [facility] 11-18-2024 09:04-0400 Body weight 128.82 kg Miguel Riddhi DO Work Phone: [facility] 11-18-2024 09:04-0400 Diastolic blood pressure 70 mm[Hg] Miguel Riddhi DO Work Phone: [facility] 11-18-2024 09:04-0400 Systolic blood pressure 112 mm[Hg] Miguel Riddhi DO Work Phone: [facility] 11-03-2024 15:07-0400 Body mass index (BMI) [Ratio] 38.63 kg/m2 Miguel Riddhi DO Work Phone: [facility] 11-03-2024 15:07-0400 Body weight 129.18 kg Miguel Riddhi DO Work Phone: [facility] 11-03-2024 15:07-0400 Diastolic blood pressure 74 mm[Hg] Miguel Riddhi DO Work Phone: [facility] 11-03-2024 15:07-0400 Systolic blood pressure 110 mm[Hg] Miguel Riddhi DO Work Phone: [facility] 10-21-2024 08:41-0400 Body mass index (BMI) [Ratio] 38.44 kg/m2 Maureen SINGLETON Work Phone: [facility] 10-21-2024 08:41-0400 Body weight 128.55 kg Maureen SINGLETON Work Phone: [facility] 10-21-2024 08:41-0400 Diastolic blood pressure 78 mm[Hg] Maureen SINGLETON Work Phone: [facility] 10-21-2024 08:41-0400 Systolic blood pressure 124 mm[Hg] Maureen SINGLETON Work Phone: [facility] 09-16-2024 09:49-0400 Body mass index (BMI) [Ratio] 37.57 kg/m2 Miguel Riddhi DO Work Phone: [facility] 09-16-2024 09:49-0400 Body weight 125.65 kg Miguel Riddhi DO Work Phone: [facility] 09-16-2024 09:49-0400 Diastolic blood pressure 76 mm[Hg] Miguel Riddhi DO Work Phone: [facility] 09-16-2024 09:49-0400 Systolic blood pressure 126 mm[Hg] Miguel Riddhi DO Work Phone: [facility] 08-19-2024 14:52-0400 Body mass index (BMI) [Ratio] 37.57 kg/m2 Maureen Feliz PA Work Phone: [facility] 08-19-2024 14:52-0400 Body weight 125.65 kg Maureen Cleveland PA Work Phone: [facility] 08-19-2024 14:52-0400 Diastolic blood pressure 78 mm[Hg] Maureen Cleveland PA Work Phone: [facility] 08-19-2024 14:52-0400 Systolic blood pressure 128 mm[Hg] Maureen Cleveland PA Work Phone: [facility] 07-22-2024 09:47-0400 Body mass index (BMI) [Ratio] 37.3 kg/m2 Miguel Riddhi DO Work Phone: [facility] 07-22-2024 09:47-0400 Body weight 124.74 kg Miguel Riddhi DO Work Phone: [facility] 07-22-2024 09:47-0400 Diastolic blood pressure 86 mm[Hg] Miguel Riddhi DO Work Phone: [facility] 07-22-2024 09:47-0400 Systolic blood pressure 130 mm[Hg] Miguel Riddhi DO Work Phone: [facility] 02-19-2024 14:07-0500 Body mass index (BMI) [Ratio] 37.95 kg/m2 Maureen Cleveland PA Work Phone: [facility] 02-19-2024 14:07-0500 Body weight 126.92 kg Maureen Paula PA Work Phone: [facility] 02-19-2024 14:07-0500 Diastolic blood pressure 74 mm[Hg] Maureen Paula PA Work Phone: [facility] 02-19-2024 14:07-0500 Systolic blood pressure 114 mm[Hg] Maureen Paula PA Work Phone: [facility] 01-16-2024 16:38-0400 Body height 182.9 cm Miguel Riddhi DO Work Phone: [facility] 01-16-2024 16:38-0400 Body mass index (BMI) [Ratio] 37.57 kg/m2 Miguel Riddhi DO Work Phone: [facility] 01-16-2024 16:38-0400 Body weight 125.65 kg Miguel Riddhi DO Work Phone: [facility] 01-16-2024 16:38-0400 Diastolic blood pressure 80 mm[Hg] Miguel Riddhi DO Work Phone: [facility] 01-16-2024 16:38-0400 Systolic blood pressure 124 mm[Hg] Miguel Riddhi DO Work Phone: [facility] 12-25-2023 10:12-0400 Body height 182.9 cm Miguel Riddhi DO Work Phone: [facility] 12-25-2023 10:12-0400 Body mass index (BMI) [Ratio] 37.57 kg/m2 Miguel Riddhi DO Work Phone: [facility] 12-25-2023 10:12-0400 Body weight 125.65 kg Miguel Riddhi DO Work Phone: [facility] 12-25-2023 10:12-0400 Diastolic blood pressure 84 mm[Hg] Miguel Riddhi DO Work Phone: [facility] 12-25-2023 10:12-0400 Systolic blood pressure 122 mm[Hg] Miguel Riddhi DO Work Phone: [facility] Healthcare Encounters Encounter Date Encounter Type Care Provider Facility Start: 12-03-2024 End: 12-03-2024 Orders Only Hanny Jeanie BUSINESS PROCESS MANAGER-TECHNICAL SOLUTIONS CONSULTANT Work Phone: [facility] Start: 12-02-2024 End: 12-02-2024 Bamboo flowsheet Miguel Riddhi DO Work Phone: [facility] Start: 12-02-2024 End: 12-02-2024 Bamboo flowsheet Miguel Riddhi DO Work Phone: [facility] Start: 12-02-2024 End: 12-02-2024 flow sheet Miguel Mattsono DO Work Phone: [facility] Comment on above: Third trimester preg shayla ([facility]); 33 weeks gestation of ([facility]); Gestational diabetes mellitus (GDM), antepartum, gestational diabetes method of control unspecified ([facility]) Start: 12-02-2024 End: 12-02-2024 ambulatory MIGUEL MATTSONO Not Available Start: 11-28-2024 End: 11-28-2024 Office outpatient new 45 minutes Saul Granados MD Work Phone: [facility] Comment on above: Insulin controlled g estational diabetes mellitus (GDM) in third trimester (Primary Dx); Prediabetes in mother during ; Family history of type 2 diabetes mellitus; Obesity affecting , antepartum, unspecified obesity type; 32 weeks gestation of Start: 11-28-2024 End: 11-28-2024 ambulatory [facility] Start: 11-27-2024 End: 11-27-2024 Clinisync Result Encounter Miguel Mattsono DO Work Phone: [facility] Unsolicited Start: 11-27-2024 End: 11-27-2024 Clinisync Result Encounter Miguel Mattsono DO Work Phone: [facility] Unsolicited Start: 11-26-2024 End: 11-26-2024 Documentation procedure Yojana Diehl RN [facility] Start: 11-26-2024 End: 11-26-2024 Telephone encounter Yojana Diehl RN [facility] Start: 11-25-2024 End: 11-25-2024 Telephone encounter Naomie LUQUE Work Phone: [facility] Start: 11-24-2024 End: 11-24-2024 Chart abstracting Scanning Provider External [facility] Start: 11-20-2024 End: 11-20-2024 ambulatory MIGUEL HANNON [facility] Start: 11-18-2024 End: 11-18-2024 Bamboo flowsheet Miguel Riddhi DO Work Phone: [facility] Start: 11-18-2024 End: 11-18-2024 Bamboo flowsheet Miguel Riddhi DO Work Phone: [facility] Start: 11-18-2024 End: 11-18-2024 ambulatory MIGUEL RIDDHI Not Available Start: 11-18-2024 End: 11-18-2024 flow sheet Miguel Riddhi DO Work Phone: [facility] Comment on above: Third trimester preg shayla ([facility]); 31 weeks gestation of ([facility]); Gestational diabetes mellitus (GDM), antepartum, gestational diabetes method of control unspecified ([facility]) Start: 11-14-2024 End: 11-14-2024 Clinisync Result Encounter Miguel Riddhi DO Work Phone: [facility] Unsolicited Start: 11-14-2024 End: 11-14-2024 Clinisync Result Encounter Miguel Riddhi DO Work Phone: [facility] Unsolicited Start: 11-13-2024 End: 11-13-2024 Chart abstracting Generic External Data Provider [facility] Start: 11-12-2024 ambulatory VIRAL ALLRED [facility] Start: 11-10-2024 End: 11-10-2024 Clinisync Result Encounter Miguel Riddhi DO Work Phone: [facility] Unsolicited Start: 11-10-2024 End: 11-10-2024 Clinisync Result Encounter Miguel Riddhi DO Work Phone: [facility] Unsolicited Start: 11-03-2024 End: 11-03-2024 flow sheet Miguel Riddhi DO Work Phone: [facility] Comment on above: 29 weeks gestation o f ([facility]); Third trimester ([facility]) Start: 11-03-2024 End: 11-03-2024 ambulatory MIGUEL RIDDHI [...] [facility] Start: 10-21-2024 End: 10-21-2024 ambulatory [facility] Start: 10-21-2024 End: 10-21-2024 flow sheet Maureen SINGLETON Work Phone: [facility] Comment on above: Size of fetus incons istent with dates in second trimester ([facility]) (Primary Dx); Second trimester ([facility]); 27 weeks gestation of ([facility]) Start: 10-21-2024 End: 10-21-2024 ambulatory MAUREEN FELIZ Not Available Start: 09-16-2024 End: 09-16-2024 ambulatory MIGUEL RIDDHI Not Available Start: 09-16-2024 End: 09-16-2024 flow sheet Miguel Riddhi DO Work Phone: [facility] Comment on above: Second trimester pre gnancy; 22 weeks gestation of ; Elevated glucose tolerance test Start: 09-16-2024 End: 09-16-2024 ambulatory MIGUEL LOPEZZIO Not Available Start: 09-02-2024 ambulatory MARIANA [facility] Start: 08-23-2024 End: 08-23-2024 Clinisync Result [...] Start: 07-22-2024 End: 07-22-2024 Bamboo flowsheet Miguel Ridhdi DO Work Phone: [facility] Start: [...] [facility] External Department Unsolicited Start: 06-26-2024 ambulatory [facility] Start: 06-19-2024 End: 06-19-2024 ambulatory MIGUEL RIDDHI Not Available Start: 05-21-2024 ambulatory [facility] Start: 05-20-2024 End: 05-20-2024 Clinisync Result Encounter [...] [facility] External Department Unsolicited Start: 04-21-2024 ambulatory [facility] Start: 04-14-2024 ambulatory [facility] Start: 03-07-2024 ambulatory VIRAL ALLRED [facility] Start: 02-25-2024 ambulatory [facility] Start: 02-19-2024 End: 02-19-2024 Anna SINGLETON Work Phone: [facility] Start: 02-19-2024 End: 02-19-2024 Bamboo flowsheet Maureen SINGLETON Work Phone: [facility] Start: 02-19-2024 End: 02-19-2024 Postop follow up visit related to original px Maureen SINGLETON Work Phone: [facility] Comment on above: Postop check Start: 02-19-2024 End: 02-19-2024 ambulatory MAUREEN FELIZ Not Available Start: 02-14-2024 ambulatory [facility] Start: 02-08-2024 End: 02-08-2024 Clinisync Result Encounter [...] External Department Unsolicited Start: 01-16-2024 ambulatory VIRAL [facility] Start: 01-16-2024 End: 01-16-2024 Office outpatient visit 15 minutes Miguel Riddhi DO Work Phone: [facility] Comment on above: Pre-op examination; Uterine leiomyoma, unspecified location Start: 01-16-2024 End: 01-16-2024 Preprocedural examination done Miguel Riddhi DO Work Phone: [facility] Start: 01-16-2024 End: 01-16-2024 ambulatory MIGUEL [...] uterine bleeding Start: 12-25-2023 End: 12-25-2023 ambulatory [facility] Start: 12-11-2023 End: 12-11-2023 Clinisync Result Encounter Aristides Araiza DO Work Phone: [facility] External [facility] Unsolicited Start: 12-11-2023 End: 12-11-2023 Clinisync Result Encounter Aristides Araiza DO Work Phone: [facility] Unsolicited Start: 12-12-2022 End: 12-15-2022 ambulatory EMEKA HERNANDEZ [facility] Start: 06-19-2022 End: 06-20-2022 ambulatory Isabella Raygoza APRN-GRANT Facility:[facility] Start: 05-30-2022 End: 05-31-2022 ambulatory Adebayo Latham DO Facility:[facility] Start: 05-16-2022 End: 05-17-2022 ambulatory Isabella Raygoza APRN-TECHNICAL SOLUTIONS CONSULTANT Facility:[facility] Start: 12-20-2021 End: 12-21-2021 ambulatory [...] auto t hin layer prep mnl screen Miguelkarey Hannon DO Work Phone: Start: 12-11-2023 HCG QUALITATIVE* Aristides hunter DO Work Phone: Start: 05-17-2012 Microscopic observat ion [Identifier] in Cervix by Cyto stain Aristides Araiza DO Work Phone: Plan of Treatment Date Care Activity Detail Author Start: 01-25-2030 DTaP,Tdap and Td Vaccines (7 - Td or Tdap) DTaP,Tdap and Td Vaccines (7 - Td or Tdap) [facility] Start: 12-12-2028 Screening for malign ant neoplasm of cervix [facility] Start: 12-12-2026 Screening for malign ant neoplasm of cervix Pap Smear [facility] Start: 11-28-2025 Adult BMI Screening Adult BMI Screen ing [facility] Start: 11-28-2025 Tobacco Screening Tobacco Screening [facility] Start: 01-06-2025 End: 01-06-2025 Patient encounter procedure 01/06/2025 9:10 AM EDT Routine [facility]ED [address] [place] [id number] Miguel Hannon, DO [address] [address] [place], [place] [id number] [facility] Start: 12-30-2024 End: 12-30-2024 Patient encounter procedure 12/30/2024 8:30 AM EDT Routine [facility] [address] [place] [address] Maureen Feliz PA [address] [facility] [place] [address] [facility] Start: 12-23-2024 End: 12-23-2024 Patient encounter procedure 12/23/2024 11:30 AM EDT Routine [facility] HERNANDEZ [address] [place] [place] [phone] Miguel Hannon DO [address] [facility] [address] [place] [address] [facility] Start: 12-18-2024 End: 12-18-2024 Telemedicine consultation with patient 12/18/2024 8:00 AM EDT Telemedicine Maternal- Medicine at [facility] [address] [place] [address] Hanny Ware, BUSINESS PROCESS [facility] [address] [place] [address] Maternal- Medicine at [facility] Start: 12-16-2024 End: 12-16-2024 Patient encounter procedure 12/16/2024 1:10 PM EDT Routine NOM[facility] HERNANDEZ [address] [place] [address] Maureen Feliz PA [address] [place] [address] [facility] Start: 12-15-2024 Influenza vaccination N [facility] Start: 12-11-2024 End: 12-11-2024 Patient encounter procedure 12/11/2024 1:00 PM EDT Appointment [facility] [place] [address] [facility] [address] [place] [phone] [facility] [place] Start: 12-02-2024 End: 12-02-2024 Patient encounter procedure [facility] Comment on above: Arrived Start: 11-20-2024 End: 11-20-2024 Telemedicine consultation with patient 11/20/2024 10:30 AM EDT Telemedicine Maternal- Medicine at [facility] [address] [place] [facility] [place] [address] Miroslava Trinidad RN [address] [facility], [address] [place] [address], [place] [address] Juli Quezada, ENE Mayo, [place]om[place], [place] [address] [facility] [address] Maternal- Medicine at [facility] Start: 11-18-2024 End: 05-21-2025 US biophysical profile w non stress test US biophysical profile w non stress test Imaging Routine Gestational diabetes mellitus (GDM), antepartum, gestational diabetes method of control unspecified ([facility]) Expected: 11/18/2024 (Approximate), Expires: 05/21/2025 [facility] Work Phone: Comment on above: Expected: 11/18/2024 (Approximate), Expires: 05/21/2025 Start: 11-18-2024 End: 11-18-2024 Patient encounter procedure 11/18/2024 8:50 AM EDT Routine [facility] [address] [facility] [place] [phone] Miguel Hannon DO [address] [place] [address] [facility] Start: 11-03-2024 End: 11-03-2024 Patient encounter procedure [facility] Comment on above: Arrived Start: 11-03-2024 End: 11-03-2024 Professional / ancillary services management 11/03/2024 2:00 PM EDT Ancillary Procedure [facility] [address] [place] [address] [facility] Start: 10-21-2024 End: 02-21-2025 US for US OB follow up transabdominal approach Imaging Routine Size of fetus inconsistent with dates in second trimester ([facility]) Expected: 10/21/2024, Expires: 02/21/2025 [facility] [...] AM EDT Routine [facility] [address] [place] [phone] Miguel Hannon DO [address] [facility] [place] [address] [facility] Start: 09-16-2024 End: 09-16-2024 Professional / ancillary services management 09/16/2024 8:30 AM EDT Ancillary Procedure [facility] [address] [facility] [place] [phone] [facility] Start: 08-19-2024 End: 08-19-2024 Patient encounter procedure 08/19/2024 2:20 PM EDT Routine [facility] [address] [place] [phone] Maureen Feliz PA [address] [place], [place] [phone] [facility] Start: 08-19-2024 End: 09-19-2024 Alpha fetoprotein, maternal Alpha fetoprotein, maternal Lab Routine Need for maternal serum alpha-protein (MSAFP) screening Expected: 08/19/2024 (Approximate), Expires: 09/19/2024 [facility] Comment on above: Expected: 08/19/2024 (Approximate), Expires: 09/19/2024 Start: 08-19-2024 End: 08-19-2025 Measurement of glucose 3 hours after glucose challenge for glucose tolerance test Glucose tolerance, 3 hours Lab Routine Elevated glucose tolerance test Expected: 08/19/2024 (Approximate), Expires: 08/19/2025 [facility] Comment on above: Expected: 08/19/2024 (Approximate), Expires: 08/19/2025 Start: 08-19-2024 End: 11-19-2024 US for US OB 14+ weeks anatomy scan Imaging Routine Screening, , for anatomic survey Expected: 08/19/2024, Expires: 11/19/2024 [facility] Comment on above: Expected: 08/19/2024 , Expires: 11/19/2024 Start: 07-22-2024 End: 07-22-2025 Measurement of glucose 1 hour after glucose challenge for glucose tolerance test Glucose tolerance, 1 hour Lab Routine Diabetes mellitus screening Expected: 07/22/2024 (Approximate), Expires: 07/22/2025 [facility] Work Phone: Comment on above: Expected: 07/22/2024 (Approximate), Expires: 07/22/2025 Start: 07-22-2024 End: 07-22-2024 Patient encounter procedure [facility] Comment on above: Arrived Start: 06-19-2024 End: 06-19-2024 ambulatory 06/19/2024 2:30 PM EST Initial [facility] [address] [place] [address] [facility] Start: 06-19-2024 End: 06-19-2024 Professional / ancillary services management 06/19/2024 2:00 PM EST Ancillary Procedure [facility] [address] [place] [address] [facility] Start: 02-19-2024 End: 02-19-2024 Patient encounter procedure 02/19/2024 1:40 PM EST Office Visit [facility] [address] [place] [phone] Maureen Feliz PA [address] [facility] [address] [place], [place] [phone] [address]rived [facility] Comment on above: Arrived Start: 01-16-2024 End: 01-16-2024 Patient encounter procedure 01/16/2024 4:00 PM EDT Consult [facility] [address] [place] [address] Miguel Hannon DO [address] [facility] [address] [place], [place] [phone] Arrived [facility] Comment on above: Arrived Start: 12-25-2023 End: 2024 Antimullerian hormone (AMH) Antimullerian hormone (AMH) Lab Routine Female infertility PCOS (polycystic ovarian syndrome) Dysfunctional uterine bleeding Expected: 12/25/2023 (Approximate), Expires: 2024 [facility] Comment on above: Expected: 12/25/2023 (Approximate), Expires: 2024 Start: 12-25-2023 End: 2024 DHEA DHEA Lab Routine PCOS (polycystic ovarian syndrome) Expected: 12/25/2023 (Approximate), Expires: 2024 [facility] Comment on above: Expected: 12/25/2023 (Approximate), Expires: 2024 Start: 12-25-2023 End: 12-25-[address] [facility] Comment on above: Arrived Start: 12-16-2023 Influenza vaccination Influenza Vacc ine (#1) [facility] Start: 12-11-2023 End: 12-11-2023 Patient encounter procedure 12/11/2023 8:00 AM EDT Procedure Visit [facility] Aristides Araiza DO [address] [facility] [address] [place] [address] [facility] Start: 05-17-2017 Screening for malign ant neoplasm of cervix [facility] Start: 12-23-2012 Screening for malign ant neoplasm of cervix Pap Smear [facility] Start: 12-23-2010 DTaP,Tdap and Td Vaccines (1 - Tdap) DTaP,Tdap and Td Vaccines (1 - Tdap) [facility] Start: 12-23-2009 Adult BMI Follow Up Plan Adult BMI Follow Up Plan [facility] Start: 12-23-2009 Adult BMI Screening Adult BMI Screen ing [facility] Start: 2003 Depression Screening Depression Scre ening [facility] Start: 2003 Tobacco Screening Tobacco Screening [facility] CBC W Auto Different ial panel - Blood CBC and differential Lab Routine PCOS (polycystic ovarian syndrome) Ordered: 12/25/2023 [facility] Comment on above: Ordered: 12/25/2023 CBC W Auto Different ial panel - Blood CBC and differential Lab Routine 22 weeks gestation of Elevated glucose tolerance test Ordered: 09/16/2024 [facility] Comment on above: Ordered: 09/16/2024 CHLAMYDIA TRACHOMATI S (GENITO/STI) CHLAMYDIA TRACHOMATIS (GENITO/STI) Lab Routine Exposure to STD Ordered: 08/19/2024 [facility] Comment on above: Ordered: 08/19/2024 DHEA-sulfate DHEA-sulfate Lab Routine PCOS (polycystic ovarian syndrome) Ordered: 12/25/2023 [facility] Comment on above: Ordered: 12/25/2023 Follicle stimulating hormone Follicle stimulating hormone Lab Routine PCOS (polycystic ovarian syndrome) Ordered: 12/25/2023 [facility] Comment on above: Ordered: 12/25/2023 hCG, quantitative, hCG, quantitative, Lab Routine PCOS (polycystic ovarian syndrome) Ordered: 12/25/2023 [facility] Work Phone: Comment on above: Ordered: 12/25/2023 Hemoglobin A1c/Hemoglobin.total in Blood Hemoglobin A1c Lab Routine Female infertility PCOS (polycystic ovarian syndrome) Dysfunctional uterine bleeding Ordered: 12/25/2023 [facility] Comment on above: Ordered: 12/25/2023 Human papilloma viru s DNA [Presence] in Unspecified specimen by Probe with amplification HPV DNA probe, amplified Microbiology Routine Ordered: 08/19/2024 [facility] Comment on above: Ordered: 08/19/2024 Luteinizing hormone Luteinizing hormone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
--- OUTSIDE RECORDS SUMMARY | 2024-12-05 19:05 | XMS_ITS | Clinical Summary ---
Author Organization [facility] Address [address], [address] [place] [address] Care Team Providers Care Skilled Nursing Case Manager Name Role Phone Unavailable Primary Care [...]
--- OUTSIDE RECORDS SUMMARY | 2024-12-05 19:05 | XMS_ITS | Encounter Summary ---
Author Organization [facility] tem Address [facility]-[id number] [address] [place] [address] Care Team Providers Care Retail Specialist Name Role Phone Unavailable Primary Care Provider Unavailabl e Encounter Details Date Type Department Care Team (Late st Contact Info) Description 12/03/2024 Orders Only Maternal- Medicine at [facility] [address] [place] [phone] Hanny Ware, ACETYLENE TORCH SOLDERER-LEAFLET DISTRIBUTOR [address] [place] [address] Social History Tobacco Use Types Packs/Day Years [...] 12/11/2024 1:00 PM EDT Appointment Maternal Medicine [place] [address] [facility] [address] [place] [address] 12/18/2024 8:00 AM EDT Telemedicine Maternal- Medicine at [facility] [address] [place] [address] Hanny Ware, ACETYLENE TORCH SOLDERER-LEAFLET DISTRIBUTOR [address] [place] [address] documented as of this encounter Visit Diagnoses Not on filedocumented in this encounter
--- OUTSIDE RECORDS SUMMARY | 2024-12-05 19:05 | XMS_ITS | Clinical Summary ---
Author Organization [employer] Address [facility]-[id number] [address] [place] [address] Care Team Providers Care Wharf Helper Name Role Phone Unavailable Primary Care Provider Unavailabl e Allergies No known active allergies Medications omeprazole (PriLOSEC) 20 mg capsule Take 1 capsule (20 mg total) by mouth in the morning. Active aspirin 81 mg Take 1 tablet (81 mg total) by mouth in the morning. Active PNV no.153/FA/om3/d hill/epa/fish ( GUMMIES ORAL) Take 2 each by mouth in the morning. Active pen needle, diabetic (BD ULTRA-FINE SHORT PEN NEEDLE) 31 gauge x 5/16 needle Use daily for insulin 100 each 2 5 Active insulin glargine (LANTUS SOLOSTAR U-100 INSULIN) 100 unit/mL (3 mL) insulin pen Inject 12 units of insulin in the evening, subcutaneous ly, prime 2 units 15 mL 11 5 Active insulin glargine (LANTUS SOLOSTAR U-100 INSULIN) 100 unit/mL (3 mL) insulin pen Inject 10 units of insulin in the evening, subcutaneous ly, prime 2 units 15 mL 11 5 12/04/19 25 Discontinu ed(Reorder ) Encounters Date Type Department Care Team Description 12/03/2024 Telephone Maternal- Medicine at [facility] [address] [place] [address] Juli Quezada LD 12/03/2024 Orders Only Maternal- Medicine at [facility] [address] [place] [address] Hanny Ware, BODY SHOP ESTIMATOR-INFORMATION SERVICES CONSULTANT 11/28/2024 11:30 AM EDT Office Visit Maternal- Medicine at [facility] [address] [place] [address] Priscila Granados MD Insulin controlled gestational diabetes mellitus (GDM) in third trimester (Primary Dx); Prediabetes in mother during ; Family history of type 2 diabetes mellitus; Obesity affecting , antepartum, unspecified obesity type; 32 weeks gestation of 11/28/2024 Travel 11/26/2024 Documentation Maternal- Medicine at [facility] [address] [place] [address] Yojana Diehl RN 11/26/2024 Telephone Maternal- Medicine at [facility] [address] [place] [address] Yojana Diehl RN 11/25/2024 Telephone Maternal- Medicine at [facility] [address] [place] [address] Naomie Huber LD 11/25/2024 Telephone Maternal- Medicine at [facility] [place] [address] [place] [address] Naomie Huber LD 11/24/2024 Orders Only Maternal- Medicine at [address] [address] Ref Prov, Not In System 11/24/2024 Abstract Maternal- Medicine at [facility] [place] [address] [place] [address] External, Scanning Provider 11/20/2024 10:30 AM EDT Telemedicine Maternal- Medicine at [facility] [address] [place] [address] Miroslava Trinidad RN Crawford, Sarah, LD Karl, Deborah, LD Gestational diabetes mellitus (GDM) in second trimester, gestational diabetes method of control unspecified 11/20/2024 Travel 11/13/2024 Orders Only Maternal- Medicine at [facility] [address] [place] [address] Ref Prov, Not In System 11/13/2024 Abstract Maternal- Medicine at [facility] [address] [facility] [place] [address] Provider, Generic External Data from Last 3 Months Family History Medical History Relation Name Comments Diabetes type II Father Hypertension Father Cancer Maternal Grandmother breast cancer Diabetes type II Paternal Grandfather Autism Neg Hx Autoimmune disease Neg Hx Bleeding Disorder Neg Hx Clotting disorder Neg Hx Developmental delay Neg Hx Down syndrome Neg Hx Heart defect Neg Hx Sudden Neg Hx Relation Name Status Comments Father Maternal Grandmother Paternal Grandfather Social History Tobacco Use Types [...] Mass Index 38.9 11/28/2024 11:44 AM EDT Plan of Treatment Upcoming Encounters Date Type Department Care Team (Late st Contact Info) Description 12/11/2024 1:00 PM EDT Appointment Maternal Medicine [place] [address] [place] [address] 12/18/2024 8:00 AM EDT Telemedicine Maternal- Medicine at [facility] [address] [place] [phone] Hanny Ware, BODY SHOP ESTIMATOR-INFORMATION SERVICES CONSULTANT [address] [place] [address] Health Maintenance Due Date Last Done Comments Depression Screening 2003 Adult BMI Follow Up Plan 12/23/2009 Influenza Vaccine 12/15/2024 01/20/2024, , 02/03/2022, Additional history exists Adult BMI Screening 11/28/2025 11/28/2024 Tobacco Screening 11/28/2025 11/28/2024 Pap Smear 12/12/2026 12/13/2023 DTaP,Tdap and Td Vaccines (7 - Td or Tdap) 01/25/2030 01/26/2020, 12/05/1996, 06/16/1993, Additional history exists Medical Devices Not on file Procedures Procedure Name Priority Date/Time Associated Diagnosis Comments POCT HEMOGLOBIN A1C Routine 11/28/2024 1 2:05 PM EDT Insulin controlled gestational diabetes mellitus (GDM) in third trimester US PREG LMTD 1 OR MORE FETUS Routine 11/13/2024 11:25 AM EDT US PREG LMTD 1 OR MORE FETUS Routine 11/13/2024 11:24 AM EDT US PREG LMTD 1 OR MORE FETUS Routine 11/13/2024 11:22 AM EDT from Last 3 Months Results * POCT Hemoglobin A1c (11/28/2024 12:05 PM EDT) External Poct Hgb A1C 5.7 4 - 7 % MANUALLY TRANSCRIBED RESULTS Blood 11/28/2024 12:0 5 PM EDT us Priscila Granados MD POINT OF CARE TEST ORDERABLES Fi nal Result MANUALLY TRANSCRIBED RESULTS * Ultrasound limited 1 or more fetus (11/13/2024 11:25 AM EDT) Only the most recent of3 resultswithin the time period is included. Anatomical Region Laterality Modality OB-FEE CLERK Ultrasound us Not In System Ref Prov IMG US ORDERABLES Final R esult from Last 3 Months Insurance
[2024-12-05 19:40] VITALS: BP 120/75; PULSE 82; TEMP 36.9
[2024-12-05 19:42] VITALS: BP 120/75; PULSE 82
== END 2024-12-05 20:00 | disposition home or self-care (01) ==
LOC: US 19:02 → FBC 19:05
PROVIDERS: PCP Family Medicine; Visit Provider Obstetrics & Gynecology
DX: O24.419 Gestational diabetes mellitus in pregnancy, unspecified control (principal); Z3A.33 33 weeks gestation of pregnancy
CPT/HCPCS: 76818

== ENCOUNTER 2024-12-09 19:59 | Outpatient (OUT) | payer BC, SELFPAY ==
--- OUTSIDE RECORDS SUMMARY | 2023-11-08 11:15 | XMS_ITS ---
Author Organization [facility] in [place] Address [address] [place] [address] Care Team Providers Care Director Of Social Work Name Role Phone Stacie Adebayo Primary Care Provider Allergies Allergen (clinical drug ingredient) Drug/Non Drug Allergy documented on EMR Reaction Allergy Type Onset Date Status Ragweed Unknown Allergy Active Reason For Referral Reason rectal bleeding Diagnosis 1 Hemorrhage of anus a nd rectum (K62.5) Referral Organization Family Practice [facility] Referring Provider First Name Adebayo Referring Provider Last Name Stacie Referring Provider Speciality Family Med [facility] Referred Provider Specialty General Surg estuardo [...] day Active PNV Active Vitamin D (Ergocalciferol) 62329 UNIT 1 capsule Orally qweekly for 30 days 06/18/2023 Active Metoprolol Tartrate 25 MG 1 tablet with food Orally Twice a day for 30 day(s) 11/14/2021 Not-Taking Meclizine HCl Not-Ta joy Social History Tobacco Use: Social History Observation Description Date Details (start date - stop date) Never Smoker NA - NA Tobacco Use/Smoking Question Answer Notes Patient 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 Problems Problem Type SNOMED Code ICD Code Onset Dates Problem Status W/U Status Risk Notes Problem 3901428 Female infertili ty, unspecified (N97.9) Active confirmed Problem 79245271 Vitamin D deficiency, unspecified (E55.9) Active confirmed Problem 633075153 Mixed hyperlipidemia (E78.2) Active confirmed Problem 291777473 Obesity, unspecified (E66.9) Active confirmed Problem 687782760 Body mass index [BMI] 36.0-36.9, adult (Z68.36) Active confirmed Vital Signs Weight 272.2 lbs 11/08/2023 Height 72 in 11/08/2023 Blood pressure systolic 142 mm Hg 11/08/19 24 Blood pressure diastolic 90 mm Hg 024 Heart Rate 82 /min 11/08/2023 Respiratory Rate 16 /min 11/08/2023 BMI 36.91 kg/m2 11/08/2023 Oximetry 98 % 11/08/2023 Encounters Encounter Location Date Provider Diagnosis [facility] [address] [place] [address] 11/08/2023 Adebayo Quinones Hemorrhage of anus a [...] K62.5) fax referral to dr miner at [facility] for eval and tx and colonoscopy prob int hem fiber monitor 11/08/2023 Female infertility, unspecified (ICD-10 - N97.9) set up pelvic US - ?PCOS f/u extraction operator as directed ?PCOS - d/w pt possible [...] rectum fax referral to dr miner at [facility] for eval and tx and colonoscopy prob int hem fiber monitor Female infertility, unspecified set up pelvic US - ?PCOS f/u extraction operator as directed ?PCOS - d/w pt possible [...] Name:Adebayo burr, 01/26/2025 10:00:00 AM, [address] [place], [address], Progress Notes * Andressa TRIPLETTDOB: [birth year] (32 yo F)Acc No.[id number]:11/08/2023 Established Patient: Andressa ALBERT Provider: Maria E Quinones DO :1990 A ge:32 Y S ex:Female Date:11/08/2023 Address:[address] [place], [place] [address], [id number] Check In:03:03 PM ESTCheck O ut:03:23 PM [...] menses at time of bleeding appt with extraction operator 12/2023 trying to get for 1 year [...] Once a day PNV Vitamin D (Ergocalciferol) 30746 UNIT Capsule 1 capsule Orally qweekly Taking Omeprazole 40 MG Capsule Delayed Release 1 capsule 30 minutes before morning meal Orally Once a day Taking PNV Taking Vitamin D (Ergocalciferol) 53403 UNIT Capsule 1 capsule Orally qweekly Not-Taking/PRNMeclizine [...] set up pelvic US - ?PCOS f/u extraction operator as directed ?PCOS - d/w pt possible [...] 11/08/2023 Generated for Tiffanie burr/Gaby/eTnaomismitting on: 0 12/09/2024 08:01 PM EDT History and Physical Notes * [...]
--- OUTSIDE RECORDS SUMMARY | 2023-11-26 11:38 | XMS_ITS ---
Author Organization [facility] in [place] Address [address] [place] [address] Care Team Providers Care Program Coordinator For Residence Life Name Role Phone Adebayo Quinones Primary Care Provider Results Component Value Reference Range Notes US Transabdominal & Transvag inal (Not yet reviewed by provider) Interpretation: Performing Lab: Notes/Report: REASON FOR VISIT need order changed Encounters Encounter Location Date Provider Diagnosis [facility] [address] [place] [address] 11/26/2023 Adebayo Quinones Female infertility, unspecified N97.9 Assessments Encounter Date Diagnosis (ICD Code) Assessment Notes Treatment Notes Treatment Clinical Notes Section Notes 11/26/2023 Female infertility, unspecified (ICD-10 - N97.9) Plan Of Treatment Pending Test Test Name Order Date US Transabdominal & Transvaginal 024 Next Appt Details Provider Name:Adebayo burr, 01/26/2025 10:00:00 AM, [address] [place], [address], Progress Notes * Andressa TRIPLETTDOB: [birth year] (32 yo F)Acc No.[id number]:11/26/2023 Patient: Andressa ALBERT :1990 A ge:32 Y S ex:Female Address:[address] [place] [address], [phone] Subjective: * Chief Complaints: * N eed order changed * Medical History: * Surgical History: * Hospitalization/Major Diagno stic Procedure: * Medications: Objective: * Vitals: * Physical Examination: Assessment: * Assessment: 1. F emale infertility, unspecified - N97.9 (Primary) Plan: * Treatment: * Procedure Codes: * true * Date: Generated for Tiffanei burr/Gaby/Sharmaine on: 0 12/09/2024 07:40 AM EDT
--- OUTSIDE RECORDS SUMMARY | 2024-11-11 10:09 | XMS_ITS ---
Author Organization [facility] in [place] Address [address] [place] [address] Care Team Providers Care Clinic Lpn Name Role Phone Adebayo Quinones Primary Care Provider REASON FOR VISIT needs wellness Encounters Encounter Location Date Provider Diagnosis [facility] [address] [place] [address] 11/11/2024 Adebayo Quinones Plan Of Treatment Next Appt Details Provider Name:Adebayo burr, 01/26/2025 10:00:00 AM, [address] [place], [address], Progress Notes * Andressa TRIPLETTDOB: [birth year] (33 yo F)Acc No.[id number]:11/11/2024 Patient: Stephanie Andressa MORRISSEY :1990 A ge:33 Y S ex:Female Address:[address] [place] [address], [address] * true * Date: Generated for Printi ng/Faxing/eTransmitting on: 0 12/09/2024 07:40 AM EDT
--- OUTSIDE RECORDS SUMMARY | 2024-11-28 11:30 | XMS_ITS | Encounter Summary ---
Author Organization [facility] tem Address [id number] [address] [place] [address] Care Team Providers Care Shuttle Buggy Operator Name Role Phone Unavailable Primary Care Provider Unavailabl e Reason for Visit * Reason Comments GDM, med start Encounter Details Date Type Department Care Team (Late st Contact Info) Description 11/28/2024 11:30 AM EDT Office Visit Maternal- Medicine at [facility] [address] [place] [phone] Priscila Granados MD [address] [facility] 1st [place] [address] Insulin controlled gestational diabetes mellitus (GDM) in third trimester (Primary Dx); Prediabetes in mother during ; Family history of type 2 diabetes mellitus; Obesity affecting , antepartum, unspecified obesity type; 32 weeks gestation of Social History Tobacco Use Types Packs/Day Years Used Date Smoking Tobacco: Never Smokeless Tobacco: Never Tobacco Cessation:Counseling Given: Not Answered Alcohol Use Standard Drinks/Week Comments Not Currently 0 (1 standard drink = 0.6 oz pur e alcohol) Hunger Screening Answer Date Recorded Within the past 12 months we worried whether our food would run out before we got money to buy more. Never True 11/28/2024 Within the past 12 months th e food we bought just didn't last and we didn't have money to get more. Never True 11/28/2024 Estimated Date of Delivery Comme nts Yes 01/17/2025 Based on last me nstrual period of 04/12/2024 Sex and Gender Information Value Date Recorded Sex Assigned at Not on file Legal Sex Female 2:41 PM EDT Gender Identity Not on file Sexual Orientation Not on file documented as of this encounter Last Filed Vital Signs Vital Sign Reading Time Taken Comments Blood Pressure 114/60 11/28/2024 11:44 AM EDT Pulse 96 11/28/2024 11:44 AM EDT Temperature - - Respiratory Rate - - Oxygen Saturation - - Inhaled Oxygen Concentration - - Weight 130.1 kg (286 lb 12.8 oz) 2024 11:44 AM EDT Height 182.9 cm (6') 11/28/2024 11:44 AM EDT Body Mass Index 38.9 11/28/2024 11:44 AM EDT documented in this encounter Progress Notes * Maureen Barrera LPN - 11/28/2024 11:30 AM EDT Headache/epigastric pain/blurry vision/swelling? No Cramping/contractions? No Spotting/vaginal bleeding? No Loss or gush of fluid like your water may have broken? No Do you have cats at home? No Do you change the litter box (reason: risk of toxoplasmosis)? N/A Genetic testing done this here or other office? No Have you been seen here at [facility] in a previous ? No Recent ER visits or hospitalizations? No Bring blood sugar log or meter with you today? (Please bring them with you for every visit at [facility]) Yes, Dexcom report Flu vaccine (Feb-June)? N/A Any concerns that you would like me to mention to the provider today? No * Priscila Granados MD - 11/28/2024 11:30 AM EDT REASON FOR CONSULTATION: gestational diabetes HISTORY OF PRESENT ILLNESS: Andressa Prasad is a pleasant 33 y.o. at 32w6d due on EstimatedDate of Delivery: 01/17/25. complicated by: Prediabetes outside of with A1c 5.7%, now with GDMA. Abnormal 1hr GCT 182 with 3hr 110 / 173/ 131 / 67 . 11/28/2024 A1 5.7%. Family history of type 2 diabetes in patient's father Obesity affecting , BMI 39 Today, the patient is doing well. She denies headaches, vision changes, nausea, vomiting, right upper quadrant or epigastric pain, SOB or chest pain. She denies contractions, vaginal bleeding, leaking of fluid. She reports good movement. Review of CGM with persistent hyperglycemia overnight and in the mornings 200s and hyperglycemia to150 with meals. November 24 episode of hypoglycemia was false readings with fingerstick blood glucosein the 80s and 100s, patient was asymptomatic. Patient changed her site and subsequent CGM readingswere consistent with hyperglycemia. Aneuploidy screening: declined Carrier screening: CF negative carrier. Baby BOY!!! I have reviewed the pertinent available patient records including but not limited to notes, labs and images. PAST OBSTETRICAL HISTORY: OB History Para Term AB Living 1 SAB IAB Ectopic Multiple Live Births # Outcome Date GA Lbr Bobo/2nd Weight Sex Type Anes PTL Lv 1 Current MEDICAL HISTORY: History reviewed. No pertinent past medical history. SURGICAL HISTORY: Past Surgical History: Procedure Laterality Date COLONOSCOPY 2023 FAMILY/GENETIC HISTORY: Family History Problem Relation Age of Onset Diabetes type II Paternal Grandfather Cancer Maternal Grandmother breast cancer Hypertension Father Diabetes type II Father Autoimmune disease Neg Hx Autism Neg Hx Developmental delay Neg Hx Down syndrome Neg Hx Bleeding Disorder Neg Hx Clotting disorder Neg Hx Heart defect Neg Hx Sudden Neg Hx SOCIAL HISTORY: Social History Tobacco Use Smoking status: Never Smokeless tobacco: Never Vaping Use Vaping status: Never Used Substance Use Topics Alcohol use: Not Currently Drug use: Never ALLERGIES: No Known Allergies CURRENT MEDICATIONS: Current Outpatient Medications: aspirin 81 mg, Take 1 tablet (81 mg total) by mouth in the morning., Disp: , Rfl: omeprazole (PriLOSEC) 20 mg capsule, Take 1 capsule (20 mg total) by mouth in the morning., Disp: ,Rfl: PNV no.153/FA/om3/dha/epa/fish ( GUMMIES ORAL), Take 2 each by mouth in the morning., Disp:, Rfl: RECENT HOSPITALIZATION: none HABITS: Patient activity no restrictions, diet no restrictions REVIEW OF SYSTEMS: Head and Neck: Negative for any dizziness and headaches. Cardiovascular and Respiratory System: Denies any chest pain, shortness of breath, and coughing. Abdominal and System: Denies any abdominal pain, nausea, vomiting, vaginal bleeding, and vaginal discharge REVIEW OF TESTS AND ULTRASOUND REPORTS: Referral records and [facility] chart were reviewed Pertinent Ultrasound findings are see formal ultrasound report. PHYSICAL EXAMINATION: BP 114/60 (BP Site: Right Arm, BP Postition: Sitting) Pulse 96 Ht 182.9 cm (6') Wt 130.1 kg (286 lb 12.8 oz) LMP 04/12/2024 BMI 38.90 kg/m?? Well-appearing in no distress. Respirations not labored, speaking comfortably in full sentences Gravid abdomen IMAGING No image results found. OVERALL ASSESSMENT -Andressa Prasad is a pleasant 33 y.o. at 32w6d -GDM A2 -prediabetes affecting -family history of diabetes -obesity affecting COUNSELING/MEDICAL DECISION-MAKING Gestational diabetes is a is a state of carbohydrate intolerance with subsequently insulin resistance and hyperglycemia. This is a malfunction or dysfunction of glucose sensors in the liver with inappropriate release of glucose followed by hyperinsulinemia followed by normal insulin secretion and th en relatively deficiency in insulin secretion resulting in both hyperglycemia and associated hypertriglyceridemia. This along with placental hormones such as human placental lactogen and TNF alpha cause hyperglycemia. The patient eventually develops insulin resistance and hyperglycemia, thus the patient's insulin is not sufficient to achieve a normal glycemic state. I informed the patient that maternal hyperglycemia results in hyperglycemia leading to adverse outcomes in the growth and development. We reviewed the implications and risks of diabetes in . Diabetes in is associated with poorer outcomes if blood glucose levels are not well controlled. Potential effects of uncontrolled diabetes , or hyperglycemia, include: maternal risks (abnormal labors, prolonged labors, delivery, hemorrhage), risks (LGA profile, shoulder dystocia, stillbirth, delayed lung maturation) and subsequent risks ( hypoglycemia, polycythemia, hyperbilirubinemia with jaundice, seizures) In addition, women with diabetes in are at increased risk of developing hypertension diseases in ,such as gestational hypertension, or preeclampsia. Patient was explained that the high risk of shoulder dystocia in fetuses with EFW 4500 gm or higher. Long-term risk to offspring from poor maternal glycemic control include: obesity, cardiovascular disease, impaired glucose tolerance and Type 2 diabetes. Treatment for diabetes in : Lifestyle modification with a healthy diet and increasing physical activity can help manage hyperglycemia, and is therefore always encouraged. We briefly discussed diet modifications and physical activity. The mainstay of pharmacotherapy for the treatment of diabetes in remains insulin. Oral hypoglycemics, such as metformin, both cross the placenta and are more likely to fail compared to insulin. correction data on children whose mothers took oral hypoglycemic agents while is limited. Medication is typically initiated when >20-30% of the blood glucose values in one week are outof range. Risks and side effects of both insulin and oral agents were discussed. In discussion of the above, patients opts to initiate insulin. Glucose goals in : Fasting 60 - 95: Mean fasting glucose values are important in managing diabetes in women because they provide overall glycemic estimate, and are predictive of increased fat mass in the women???s offspring. Increased fat mass has been shown to be associated with the development of childhood obesity, and diabetes. One hour postprandial 90 - 140: Postprandial measurements are important in management of diabetes in because they are associated with incidence of large for gestational age infants, and lower rates of delivery for cephalopelvic disproportion when well controlled. Discussed monitoring for hypogylcemia, and treatment of hypoglycemia. Discussed her current diet and her awareness of grams of carbohydrate per meal. Encouraged her to be aware of carbohydrate intake and note which foods causing values above goal. Encouraged her on diet modifications. SUMMARY/RECOMMENDATION: Initiated on Lantus 10 units q.h.s. CGM we will be reviewed weekly by [facility]. Status post diabetic education nutrition counseling at [facility] Detailed anatomy ultrasound scheduled for 12/11/2024 in [facility] Repeat growth ultrasound at 38 weeks gestation, through primary OB Recommend weekly testing for the remainder of , through primary OB Delivery recommendations : Recommend delivery at [id number] Discuss delivery if estimated weight is >4500g Use 1/2 dose of insulin the night before her planned delivery. Will discuss at later gestation Monitor patient's BG every 4hrs during latent labor, every 1 hr during active labor with goal BG jesse less than 140mg/dl. Can use insulin sliding scale prn hyperglycemia. Once delivered, check bloodglucose fasting and 1hr post prandial, with goal of 100-130mg/dl for fasting and <180mg/dl for random or post prandial blood glucose levels Obtain a 2-hour GTT 6-8 weeks . Also recommend yearly evaluation of blood glucose as patient is at an increased risk of developing diabetes later on. Follow up in [facility] in 2 weeks with provider visit DISPOSITION: At this point the patient is in complete care of her director microbiology. Patient does have ultrasound and office visit scheduled with us. Thank you for allowing me to participate in the care of Andressa Prasad. If there any questions please do not hesitate to contact us. Priscila Granados MD Maternal- Medicine [facility] [address] [facility] 1st [place] [address] This document was created with [employer] technology. Though I make every effort to review the dictation as it is transcribed, on occasion the spoken word can be misinterpreted by the technology leading to inappropriate words, phrases, or sentences. This note is addressed to the requesting provider as a consultation for clinical guidance. Specificmedical abbreviations are occasionally used and those are generally approved by the [place]?Board of?Obstetrics and?Gynecology?as well as?Ethan???s abbreviations. The above plan of care was based solely on the diagnoses for which a consultation was requested. ?More frequent testing may be indicated based on her other medical/obstetrical conditions. The management of other or medical conditions is beyond the scope of requested consultation and will c ontinue to be followed by the primary director microbiology or primary care provider. Note to patient: The Century Cures Act makes medical notes like these available to patients inthe interest of transparency. However, be advised this is a medical document. It is intended as peer to peer communication. It is written in medical language and may contain abbreviations or verbiagethat are unfamiliar. It may appear blunt or direct. Medical documents are intended to carry relevant information, facts as evident, and the clinical opinion of the practitioner. documented in this encounter Plan of Treatment Upcoming Encounters Date Type Department Care Team (Late st Contact Info) Description 12/11/2024 1:00 PM EDT Appointment Maternal Medicine [place] [address] [facility] [address] [place] [address] 12/18/2024 8:00 AM EDT Telemedicine Maternal- Medicine at [facility] [address] [place] [phone] Jeanie Hanny, TRANSPORTATION PLANNING TECHNICIAN-RADIO STATION MANAGER [address] [place] [address] documented as of this encounter Procedures Procedure Name Priority Date/Time Associated Diagnosis Comments POCT HEMOGLOBIN A1C Routine 11/28/2024 1 2:05 PM EDT Insulin controlled gestational diabetes mellitus (GDM) in third trimester documented in this encounter Results * POCT Hemoglobin A1c (11/28/2024 12:05 PM EDT) External Poct Hgb A1C 5.7 4 - 7 % MANUALLY TRANSCRIBED RESULTS Blood 11/28/2024 12:0 5 PM EDT us Priscila Granados MD POINT OF CARE TEST ORDERABLES Fi nal Result MANUALLY TRANSCRIBED RESULTS documented in this encounter Visit Diagnoses Diagnosis Insulin controlled gestational diabetes mellitus (GDM) in third trimester- Primary Prediabetes in mother during Family history of type 2 diabetes mellitus Family history of diabetes mellitus Obesity affecting , antepartum, unspecified obesity type 32 weeks gestation of documented in this encounter
--- OUTSIDE RECORDS SUMMARY | 2024-12-09 20:02 | XMS_ITS | Clinical Summary ---
Author Organization [employer] Address [facility] [place]-[id number] [address] [place] [address] Care Team Providers Care Glass Installer Technician Name Role Phone Unavailable Primary Care Provider Unavailabl e Allergies No known active allergies Medications omeprazole (PriLOSEC) 20 mg capsule Take 1 capsule (20 mg total) by mouth in the morning. Active aspirin 81 mg Take 1 tablet (81 mg total) by mouth in the morning. Active PNV no.153/FA/om3/ dha/epa/fish ( GUMMIES ORAL) Take 2 each by mouth in the morning. Active pen needle, diabetic (BD ULTRA-FINE SHORT PEN NEEDLE) 31 gauge x 5/16 needle Use daily for insulin 100 each 2 11/29/19 25 Active insulin glargine (LANTUS SOLOSTAR U-100 INSULIN) 100 unit/mL (3 mL) insulin pen Inject 16 units of insulin in the evening, subcutaneou sly, prime 2 units 15 mL 12/10/19 25 Active insulin glargine (LANTUS SOLOSTAR U-100 INSULIN) 100 unit/mL (3 mL) insulin pen Inject 10 units of insulin in the evening, subcutaneou sly, prime 2 units 15 mL 11/29/19 25 025 Discontinued(Re order) insulin glargine (LANTUS SOLOSTAR U-100 INSULIN) 100 unit/mL (3 mL) insulin pen Inject 12 units of insulin in the evening, subcutaneou sly, prime 2 units 15 mL 12/04/19 25 025 Discontinued Encounters Date Type Department Care Team Description 12/09/2024 Telephone Maternal- Medicine at [facility] [address] [place] [address] Yojana Diehl, HALEY 12/09/2024 Orders Only [facility] - Labor [address] [facility] [address] Mary Scanlon PA-C 12/03/2024 Telephone Maternal- Medicine at [facility] [address] [place] [address] Juli Quezada LD 12/03/2024 Orders Only Maternal- Medicine at [facility] [address] [place] [address] Hanny Ware, CLASSROOM INSTRUCTOR-NUTS AND BOLTS ASSEMBLER 11/28/2024 11:30 AM EDT Office Visit Maternal- Medicine at [facility] [address] [place] [address] Priscila Granados MD Insulin controlled gestational diabetes mellitus (GDM) in third trimester (Primary Dx); Prediabetes in mother during ; Family history of type 2 diabetes mellitus; Obesity affecting , antepartum, unspecified obesity type; 32 weeks gestation of 11/28/2024 Travel 11/26/2024 Documentation Maternal- Medicine at [facility] [address] [place] [address] Yojana Diehl, HALEY 11/26/2024 Telephone Maternal- Medicine at [facility] [address] [place] [address] Yojana Diehl, HALEY 11/25/2024 Telephone Maternal- Medicine at [facility] [address] [facility] [place] [address] Naomie Huber, ENE 11/25/2024 Telephone Maternal- Medicine at [facility] [address] [place] [address] Naomie Huber LD 11/24/2024 Orders Only Maternal- Medicine at [facility] [address] [place] [address] Ref Prov, Not In System 11/24/2024 Abstract Maternal- Medicine at [facility] [address] [place] [address] External, Scanning Provider 11/20/2024 10:30 AM EDT Telemedicine Maternal- Medicine at [facility] [address] [place] [address] Miroslava Trinidad RN Crawford, Sarah, Naomie Bishop LD Gestational diabetes mellitus (GDM) in second trimester, gestational diabetes method of control unspecified 11/20/2024 Travel 11/13/2024 Orders Only Maternal- Medicine at [place] [address] [place] [phone] Ref Prov, Not In System 11/13/2024 Abstract Maternal- Medicine at [place] [address] [place] [address] Provider, Generic External Data from Last 3 [...] 12/11/2024 1:00 PM EDT Appointment Maternal Medicine [place] [address] [facility] [address] [place] [address] 12/18/2024 8:00 AM EDT Telemedicine Maternal- Medicine at [facility] [address] [place] [address] Hanny Ware, CLASSROOM INSTRUCTOR-NUTS AND BOLTS ASSEMBLER [address] [place] [address] Health Maintenance Due Date Last Done Comments [...] period is included. Anatomical Region Laterality Modality OB-TELEVISION REPAIRMAN Ultrasound us Not In System Ref Prov IMG US ORDERABLES Final R esult from Last 3 Months Insurance ANTH
--- OUTSIDE RECORDS SUMMARY | 2024-12-09 20:02 | XMS_ITS | Encounter Summary ---
Author Organization [facility] Address [address], [address] [place] [address] Care Team Providers Care Civil Service Clerk Name Role Phone Unavailable Primary Care Provider Unavailabl e Reason for Referral * Other (Routine) - Closed Specialty Diagnoses / Procedures Referred By Contac t Referred To Contact Cardiology Diagnoses Palpitations Syncope and collapse Procedures Tilt Table Test Clarence Wolf APRN - CNP Phone: tel: fax: Referral ID Status Reason Start Date Expiration Date Visits Re quested Visits Authorized [id number] Closed 11/16/2022 11/16/2023 1 1 Encounter Details Date Type Department Care Team (Latest Contact Info) Description 11/16/2022 Transcribe Orders [facility] [address] [place] [address] Clarence Wolf APRN - CNP [address] [place] [address] Palpitations (Primary Dx); Syncope and collapse Social [...]
--- OUTSIDE RECORDS SUMMARY | 2024-12-09 20:02 | XMS_ITS | Encounter Summary ---
Author Organization [facility] Address [facility]-[id number] [address] [place] [address] Care Team Providers Care Conference Services Director Name Role Phone Unavailable Primary Care Provider Unavailabl e Encounter Details Date Type Department Care Team (Late st Contact Info) Description 11/26/2024 Telephone Maternal- Medicine at [facility] [address] [facility] [place] [address] Yojana Diehl, HALEY Social History [...] can call and make that appt at [phone] option #3. It looks as though her fastings are running above target but would like to see what the actual numbers are running. documented in this encounter Plan of Treatment Upcoming Encounters Date Type Department Care Team (Late st Contact Info) Description 12/11/2024 1:00 PM EDT Appointment Maternal Medicine [place] [address] [facility] [address] [place] [address] 12/18/2024 8:00 AM EDT Telemedicine Maternal- Medicine at [facility] [address] [place] [address] Hanny Ware, POWER PLANT MANAGER-UI ARCHITECT [address] [place] [address] documented as of this encounter Visit Diagnoses Not on filedocumented in this encounter
--- OUTSIDE RECORDS SUMMARY | 2024-12-09 20:02 | XMS_ITS | Encounter Summary ---
[facility] Address [id number] [address] [place] [address] Care Team Providers Care Base Manager Name Role Phone Unavailable Primary Care Provider Unavailabl e Encounter Details Date Type Department Care Team (Late st Contact Info) Description 11/24/2024 Orders Only Maternal- Medicine at [facility] [address] [place] [phone] Ref Prov, [place] [address] Social History Tobacco Use Types Packs/Day Years [...] 12/11/2024 1:00 PM EDT Appointment Maternal Medicine [place] [address] [facility] [address] [place] [address] 12/18/2024 8:00 AM EDT Telemedicine Maternal- Medicine at [facility] [address] [place] [phone] Hanny Ware, DETECTIVE YOUTH BUREAU-COPYING MACHINE REPAIRER [address] [place] [address] documented as of this encounter Visit Diagnoses Not on filedocumented in this encounter
--- OUTSIDE RECORDS SUMMARY | 2024-12-09 20:02 | XMS_ITS | Encounter Summary ---
Author Organization [facility] Address [address] [place] [address] Care Team Providers Care Amusement Equipment Operator Name Role Phone Adebayo Quinones DO Primary Care Provider [phone] Encounter Details Date Type Department Care Team (Late st Contact Info) Description 11/12/2024 Orders Only [facility] [address] [place] [address] Yoseph Mcintosh MD [address] [place] [address] Social History Tobacco Use Types [...] Yoseph Mcintosh MD CV IMPLANTABLE CARDIAC DEVICE VA OCEDURES Final Result documented in this encounter Visit Diagnoses Not on filedocumented in this encounter Care Teams Amusement Equipment Operator Relationship Specialty Start Date End Date Adebayo Quinones DO [address] [place] [address] PCP - General 11/14/22 documented as of this encounter
--- OUTSIDE RECORDS SUMMARY | 2024-12-09 20:02 | XMS_ITS | Encounter Summary ---
Author Organization [facility] Address [id number] [address] [place] [address] Care Team Providers Care Karate Black Belt Name Role Phone Unavailable Primary Care Provider Unavailabl e Encounter Details Date Type Department Care Team (Late st Contact Info) Description 11/13/2024 Orders Only Maternal- Medicine at [facility] [address] [place] [phone] Ref Prov, [place] [address] Social History Tobacco Use Types Packs/Day Years [...] 12/11/2024 1:00 PM EDT Appointment Maternal Medicine [place] [address] [facility] [address] [place] [address] 12/18/2024 8:00 AM EDT Telemedicine Maternal- Medicine at [facility] [address] [place] [address] Hanny Ware, RN STAFFING-BIODIESEL OPERATIONS MANAGER [address] [place] [address] documented as of this encounter Procedures Procedure [...] 11:25 AM EDT) Anatomical Region Laterality Modality OB-STAFF TRAINING AND DEVELOPMENT MANAGER Ultrasound us Not In System Ref Prov IMG US ORDERABLES Final R esult * Ultrasound limited 1 or more fetus (11/13/2024 11:24 AM EDT) Anatomical Region Laterality Modality OB-STAFF TRAINING AND DEVELOPMENT MANAGER Ultrasound us Not In System Ref Prov IMG US ORDERABLES Final R esult * Ultrasound limited 1 or more fetus (11/13/2024 11:22 AM EDT) Anatomical Region Laterality Modality OB-STAFF TRAINING AND DEVELOPMENT MANAGER Ultrasound us Not In System Ref Prov IMG US ORDERABLES Final R esult documented in this encounter Visit Diagnoses Not on filedocumented in this encounter
--- OUTSIDE RECORDS SUMMARY | 2024-12-09 20:02 | XMS_ITS | Encounter Summary ---
Author Organization [facility] tem Address [id number] [address] [place] [address] Care Team Providers Care Tool Shaper Set Up Operator Name Role Phone Unavailable Primary Care Provider Unavailabl e Encounter Details Date Type Department Care Team (Late st Contact Info) Description 12/09/2024 Orders Only [facility] - Labor [address] [place] [phone] Mary Scanlon, PA-C [address] [address] Social History Tobacco Use Types Packs/Day Years [...] 1:00 PM EDT Appointment Maternal Medicine [place] [address] [address] 12/18/2024 8:00 AM EDT Telemedicine Maternal- Medicine at [facility] [address] [place] [phone] Hanny Ware, ARCHITECTURAL DRAFTING INSTRUCTOR-PRIVACY MANAGER [address] [place], [place] [id number] documented as of this encounter Visit Diagnoses Not on filedocumented in this encounter
--- OUTSIDE RECORDS SUMMARY | 2024-12-09 20:02 | XMS_ITS | CCD ---
Author Organization [facility] Care Team Providers Care Drum Drier Operator Name Role Phone BECK, DR ADEBAYO [...] Admitting Unavailable Sak Adebayo SHORT Attending Unavailable SolaresAdebayo Primary Care Unavailable Jaret MARKETING PLANNER-ROCKBOARD LATHERIsabella Attending Unavaila ble SolaresAdebayo Primary Care Unavailable Jaret MARKETING PLANNER-ROCKBOARD LATHERIsabella Attending Unavaila ble SolaresAdebayo Primary Care Unavailable SolaresAdebayo Consulting Unavailable SolaresAdebayo [...] Attending Unavailable MIGUEL HANNON Referring Unavailable NAOMIE HUBER Attending Unavailable SAUL GRANADOS Attending Unavailable RIDDHI, MIGUEL R Referring Unavailable RIDDHI, MIGUEL Attending Unavailable MAUREEN FELIZ Attending Unavailable RIDDHI, MIGUEL Attending Unavailable PAULAMAUREEN Attending Unavailable RIDDHI, MIGUEL Attending Unavailable RIDDHI, MIGUEL Attending Unavailable RIDDHI, MIGUEL Attending Unavailable RIDDHI, MIGUEL Attending Unavailable MIGUEL HANNON Attending Unavailable MAUREEN FELIZ Attending Unavailable Allergies Allergy Classification Reported Allergen(s) Allergy Type Date of Onset Reaction(s) Facility (1 source) No Known Medication Allergies; Translations: [No Known Medication Allergies] Propensity to adverse reactions to drug (disorder) [facility] Repository Medications Current Medications Medication Drug Class(es) Dates Sig (Normalized) Sig (Original) aspirin 81 mg delayed release oral tablet (20 sources) Platelet Aggregation Inhibitor, Nonsteroidal Anti-inflammatory Drug take 1 tablet by mouth in the morning aspirin 81 MG EC tablet Take 81 mg by mouth in the morning. Active Blood Glucose Monitoring Suppl (D-Care Glucometer) w/Device kit (9 sources) Start: 11-10-2024 End: 11-10-2025 Blood Glucose Monitoring Suppl (D-Care Glucometer) w/Device kit Indications: Gestational diabetes mellitus (GDM), antepartum, gestational diabetes method of control unspecified ([facility]) , Elevated glucose tolerance test 1 kit Daily Use four times daily to check FSBS. In the morning prior to breakfast & 1 hour after each meal for a total of 4times daily. 1 kit 11/10/2024 11/10/2025 Active Continuous Glucose Sensor (Dexcom G7 Sensor) misc (3 sources) Start: 12-02-2024 End: 01-01-2025 Continuous Glucose Sensor (Dexcom G7 Sensor) misc Indications: Gestational diabetes mellitus (GDM), antepartum, gestational diabetes method of control unspecified ([facility]) 1 each Every 10 (ten) days 3 each 1 12/02/2024 01/01/2025 Active 3 ml insulin glargine 100 unt/ml pen injector (7 sources) Insulin Analog Start: 12-03-2024 insulin glargine (LANTUS SOLOSTAR U-100 INSULIN) 100 unit/mL (3 mL) insulin pen Inject 12 units of insulin in the evening, subcutaneously, prime 2 units 15 mL 11 12/03/2024 Active Start: 11-28-2024 inject 100 [IU] by s ubcutaneous injection at bedtime Lantus SoloStar 100 UNIT/ML pen Inject under the skin at bedtime 11/28/2024 Active Start: 11-28-2024 End: 12-03-2024 insulin glargine (LANTUS PADMINI OSTAR U-100 INSULIN) 100 unit/mL (3 mL) insulin pen Inject 10 units of insulin in the evening, subcutaneously, prime 2 units 15 mL 11/28/2024 12/03/2024 Discontinued (Reorder) isopropyl alcohol 0.7 ml/ml medicated pad (9 sources) Start: 11-10-2024 Alcohol Swabs (Alcohol Prep Pad) 70 % pads Indications: Gestational diabetes mellitus (GDM), antepartum, gestational diabetes method of control unspecified ([facility]) , Elevated glucose tolerance test Apply [...] Test Name Value Interpretation Reference Range Facility US OB BPP W NON-STRESS on 12-06-2024 [place] [address] Ultrasound Report Signed Patient: JAVID PRASAD MR#: [id number] : 1990 Acct:[id number] Age/Sex: 33 / F ADM Date: 12/05/24 Loc: US Attending Dr: Miguel Hannon D.O. Ordering Physician: Miguel Hannon D.O. Date of Service: 12/05/24 Procedure(s): US OB BPP w non-stress Accession Number(s): [id number] cc: Miguel Hannon D.O.; ADEBAYO SOLARES D.O. [address] [address] Patient Name: JAVID PRASAD MRN: [id number] date: 1990 Sex: F Assigned Patient Location: [facility] Current Patient Location: [place] Accession/Order Number: [id number] Exam Date: 12/05/2024 19:12 Report Date: 12/06/2024 17:01 At the request of: MIGUEL HANNON DO Procedure: US OB BPP w non-stress US OB BPP w non-stress 12/05/2024 7:35 PM SIGNS AND SYMPTOMS: GESTATIONAL DIABETES MELLITUS O24.419 PROTOCOL: Transabdominal sonographic imaging of the gravid uterus COMPARISON: None FINDINGS: heart rate: 152 bpm Amniotic fluid index: 12.46 cm. The deepest vertical pocket measures 5.4 cm. Estimated gestational age: 33 weeks and 6 days. Biophysical profile: breathing movements: 2/2 Gross body movements: 2/2 tone: 2/2 Amniotic fluid volume: 2/2 US/US OB BPP w non-stress IMPRESSION: Biophysical profile: 11/21 Impression dictated by: Tutu Mcdermott M.D. 12/06/2024 5:01 PM Dictation Location: [place] [address] Electronically authenticated by: [id number] Y Date: 12/06/2024 17:01 Dictated By: Tutu Mcdermott M.D. Signed By: 12/06/242015 DD/ 00 TD/TT: Septic Tank Service Technician: [facility] Radiology, Radiologist, - 12/06/2024 [place] [address] Ultrasound Report Signed Patient: JAVID PRASAD MR#: [id number] : 1990 Acct:[id number] Age/Sex: 33 / F ADM Date: 12/05/24 Loc: US Attending Dr: Miguel Hannon D.O. Ordering Physician: Miguel Hannon D.O. Date of Service: 12/05/24 Procedure(s): US OB BPP w non-stress Accession Number(s): [id number] cc: Miguel Hannon D.O.; ADEBAYO SOLARES D.O. The [place] [id number] Patient Name: JAVID PRASAD MRN: [facility]:[id number] date: 1990 Sex: F Assigned Patient Location: [facility] Current Patient Location: [place] Accession/Order Number: [id number] Exam Date: 12/05/2024 19:12 Report Date: 12/06/2024 17:01 At the request of: MIGUEL HANNON DO Procedure: US OB BPP w non-stress US OB BPP w non-stress 12/05/2024 7:35 PM SIGNS AND SYMPTOMS: GESTATIONAL DIABETES MELLITUS O24.419 PROTOCOL: Transabdominal sonographic imaging of the gravid uterus COMPARISON: None FINDINGS: heart rate: 152 bpm Amniotic fluid index: 12.46 cm. The deepest vertical pocket measures 5.4 cm. Estimated gestational age: 33 weeks and 6 days. Biophysical profile: breathing movements: 2/2 Gross body movements: 2/2 tone: 2/2 Amniotic fluid volume: 2/2 US/US OB BPP w non-stress IMPRESSION: Biophysical profile: 11/21 Impression dictated by: Tutu Mcdermott M.D. 12/06/2024 5:01 PM Dictation Location: [place] Electronically authenticated by: [id number] Y Date: 12/06/2024 17:01 Dictated By: Tutu Mcdermott M.D. Signed By: 12/06/242015 DD/ 00 TD/TT: Septic Tank Service Technician: [facility] Radiology Study observation (narrative) [facility] US OB BPP W NON-STRESS Ordered By: Radiologist Radiology on 12-06-2024 [facility] [employer] Work Phone: Urinalysis macro (dipstick) panel (U)on 12-02-2024 Bilirubin, UA Negative Negative - 4(70) +++ mg/dL [facility] Blood, UA Negative Negative - 50 Osmin/mcL [facility] Clarity, UA Clear [facility] re Color, UA Yellow [facility] [employer] Glucose, UA Negative Negative - 2000(110) ++++ mg/dL [facility] Interpretation and review of laboratory results Abnormal [facility] Ketones, UA Negative Negative - 160(16) ++++ mg/dL [facility] Leukocytes, UA Positive Negative - 500+++ Oumou/mcL [facility] Nitrite, UA Negative Negative - Positive [facility] pH, UA 6 5 - 9 [facility] [employer] Protein, UA Negative Negative - 2000(20) ++++ mg/dL [facility] Spec Grav, UA 1.025 1 - 1.[address] [facility] Urobilinogen, UA 1.0 0.2 - 12 [facility]dL [facility] POCT Hemoglobin A1con 2024 HbA1c (Bld) [Mass fraction] 5.7 % 4 - 7 % [facility] OB BPP W NON-STRESS on 11-27-2024 [place] [address] Ultrasound Report Signed Patient: JAVID PRASAD MR#: [id number] : 1990 Acct:[id number] Age/Sex: 33 / F ADM Date: 11/27/24 Loc: US Attending Dr: Miguel Hannon D.O. Ordering Physician: Miguel Hannon D.O. Date of Service: 11/27/24 Procedure(s): US OB BPP w non-stress Accession Number(s): [id number] cc: Miguel Hannon D.O.; ADEBAYO SOLARES D.O. The [place] [id number] Patient Name: JAVID PRASAD MRN: [id number] date: 1990 Sex: F Assigned Patient Location: [facility] Current Patient Location: Accession/Order Number: [id number] Exam Date: 11/27/2024 23:39 Report Date: 11/27/2024 [...] Deutsch M.D. 11/27/2024 11:40 PM Dictation Location[facility] Electron[facility] authenticated by: [id number] Y Date: 11/27/2024 23:40 Dictated By: Sergo Deutsch D.O. Signed By: 11/27/242341 DD/ 39 TD/TT: Septic Tank Service Technician: [facility] Radiology, Radiologist, - 11/27/2024 The [place] [id number] Ultrasound Report Signed Patient: JAVID PRASAD MR#: [id number] : 1990 Acct:[id number] Age/Sex: 33 / F ADM Date: 11/27/24 Loc: US Attending Dr: Miguel Hannon D.O. Ordering Physician: Miguel Hannon D.O. Date of Service: 11/27/24 Procedure(s): US OB BPP w non-stress Accession Number(s): [id number] cc: Miguel Hannon D.O.; ADEBAYO SOLARES D.O. [place] [address] Patient Name: JAVID PRASAD MRN: [id number] date: 1990 Sex: F Assigned Patient Location: [facility] Current Patient Location: Accession/Order Number: [id number] Exam Date: 11/27/2024 23:39 Report Date: 11/27/2024 [...] Deutsch M.D. 11/27/2024 11:40 PM Dictation Location: [place] [address] Electronically authenticated by: [id number] Y Date: 11/27/2024 23:40 Dictated By: Sergo Deutsch D.O. Signed By: 11/27/242341 DD/ 39 TD/TT: Septic Tank Service Technician: [facility] Radiology Study observation (narrative) [facility] US OB BPP W NON-STRESS Ordered By: Radiologist Radiology on 11-27-2024 [facility] [employer] Work Phone: Urinalysis macro (dipstick) panel (U)on 11-18-2024 Bilirubin, UA Negative Negative - 4(70) +++ mg/dL [facility] Blood, UA Negative Negative - 50 Osmin/mcL [facility] Clarity, UA Clear [facility] re Color, UA Light Yellow [facility] are Glucose, UA Trace Negative - 1999(110) ++++ mg/dL [facility] Interpretation and review of laboratory results Normal [facility] Ketones, UA Negative Negative - 160(16) ++++ mg/dL [facility] Leukocytes, UA Negative Negative - 500+++ Oumou/mcL [facility] Nitrite, UA Negative Negative - Positive [facility] pH, UA 6 5 - 9 [facility] Protein, UA Negative Negative - 1999(20) ++++ mg/dL [facility] Spec Grav, UA 1.015 1 - 1.[address] [facility] Urobilinogen, UA 4.0 0.2 - 12 mg/dL [facility] US OB INCOMPLETE ANATOMYon 0 11-14-2024 [place] [address] Ultrasound Report Signed Patient: JAVID PRASAD MR#: [id number] : 1990 Acct:[id number] Age/Sex: 33 / F ADM Date: 11/13/24 Loc: US Attending Dr: Miguel Hannon D.O. Ordering Physician: Miguel Hannon D.O. Date of Service: 11/13/24 Procedure(s): US OB incomplete anatomy Accession Number(s): [id number] cc: Miguel Hannon D.O.; ADEBAYO SOLARES D.O. [place] [id number] Patient Name: JAVID PRASAD MRN: [id number] date: 1990 Sex: F Assigned Patient Location: US Current Patient Location: Accession/Order Number: [id number] Exam Date: 11/14/2024 09:56 Report Date: 11/14/2024 [...] Jr., D.O. 11/14/2024 10:06 AM Dictation Location: [place] [address] Electronically authenticated by: [id number] Y Date: 11/14/2024 10:06 Dictated By: Mark Anthony Conner M.D. Signed By: 11/14/24 1009 DD/ 1006 TD/TT: Septic Tank Service Technician: [facility] Radiology, Radiologist, MD - 11/14/2024 [place] [address] Ultrasound Report Signed Patient: JAVID PRASAD MR#: [id number] : 1990 Acct:[id number] Age/Sex: 33 / F ADM Date: 11/13/24 Loc: US Attending Dr: Miguel Hannon D.O. Ordering Physician: Miguel Hannon D.O. Date of Service: 11/13/24 Procedure(s): US OB incomplete anatomy Accession Number(s): [id number] cc: Miguel Hannon D.O.; ADEBAYO SOLARES D.O. The [address] [address] Patient Name: JAVID PRASAD MRN: [facility]:[id number] date: 1990 Sex: F Assigned Patient Location: US Current Patient Location: Accession/Order Number: [id number] Exam Date: 11/14/2024 09:56 Report Date: 11/14/2024 [...] Impression dictated by: Mark Anthony Conner Jr., KarenaOZack 11/14/2024 10:06 AM Dictation Location: [place] [address] Electronically authenticated by: [id number] Y Date: 11/14/2024 10:06 Dictated By: Mark Anthony Conner M.D. Signed By: 11/14/24 1009 DD/ 1006 TD/TT: Septic Tank Service Technician: [facility] Radiology Study observation (narrative) [facility] US OB INCOMPLETE ANATOMYOrde red By: Radiologist Radiology on 11-14-2024 [facility] [employer] Work Phone: GLUCOSE TOLERANCE 3 HOURon 0 11-10-2024 GLUCOSE TOLERANCE 3 HOUR High mg/dL [facility] Comment on above: GLU FAST 113H (<95) Col: 11/10/24 0845 GLU 1HR 208H (<180) Col: 11/10/24 0945 GLU 2HR 152 (<155) Col: 11/10/24 1052 GLU 3HR 81 (<140) Col: 11/10/24 1147 Interpretation and review of laboratory results Abnormal [facility] [employer] [facility] Urinalysis macro (dipstick) panel (U)on 11-03-2024 Bilirubin, UA Negative Negative - 4(70) +++ mg/dL [facility] Blood, UA Negative Negative - 50 Osmin/mcL [facility] [employer] Clarity, UA Clear [facility] [employer] Color, UA Yellow [facility] [employer] Glucose, UA Positive Negative - 2000(110) ++++ mg/dL [facility] Interpretation and review of laboratory results Abnormal [facility] Ketones, UA Negative Negative - 160(16) ++++ mg/dL [facility] Leukocytes, UA Negative Negative - 500+++ Oumou/mcL [facility] Nitrite, UA Negative Negative - Positive [facility] pH, UA 7 5 - 9 [facility] Protein, UA Trace Negative - 1999(20) ++++ mg/dL [facility] Spec Grav, UA 1.02 1 - 1.[address] [facility] Urobilinogen, UA 1.0 0.2 - 12 mg/dL [facility] US OB GROWTHon 10-31-2024 [place] [address] Ultrasound Report Signed Patient: JAVID PRASAD MR#: [id number] : 1990 Acct:[id number] Age/Sex: 33 / F ADM Date: 10/30/24 Loc: US Attending Dr: Maureen Feliz Ordering Physician: Maureen Feliz Date of Service: 10/30/24 Procedure(s): US OB growth Accession Number(s): [id number] cc: Maureen Feliz; ADEBAYO SOLARES D.O. The [address] [address] Patient Name: JAVID PRASAD MRN: [id number] date: 1990 Sex: F Assigned Patient Location: US Current Patient Location: Accession/Order Number: [id number] Exam Date: 10/31/2024 07:37 Report Date: 10/31/2024 [...] 10/31/2024 7:41 AM Dictation Location: [place] [address] Electronically authenticated by: [id number] Y Date: 10/31/2024 07:41 Dictated By: Katarzyna Crow M.D. Signed By: 10/31/2444 DD/ TD/TT: Septic Tank Service Technician: [facility] Radiology, Radiologist, - 10/31/2024 [place] [address] Ultrasound Report Signed Patient: JAVID PRASAD MR#: [id number] : 1990 Acct:[id number] Age/Sex: 33 / F ADM Date: 10/30/24 Loc: US Attending Dr: Maureen Feliz Ordering Physician: Maureen Feliz Date of Service: 10/30/24 Procedure(s): US OB growth Accession Number(s): [id number] cc: Maureen Feliz; ADEBAYO SOLARES D.O. The [address] [address] Patient Name: JAVID PRASAD MRN: [facility]:[id number] date: 1990 Sex: F Assigned Patient Location: US Current Patient Location: Accession/Order Number: [id number] Exam Date: 10/31/2024 07:37 Report Date: 10/31/2024 [...] 10/31/2024 7:41 AM Dictation Location: [place] [address] Electronically authenticated by: [id number] Y Date: 10/31/2024 07:41 Dictated By: Katarzyna Crow M.D. Signed By: 10/31/24 0744 DD/ 0741 TD/TT: Septic Tank Service Technician: [facility] Radiology Study observation (narrative) [facility] OB GROWTHOrdered By: Layne ologfortunato Radiology on 10-31-2024 [facility] Work Phone: Office Visiton 10-21-2024 Follow-up visit [id number] Javid Prasad 1990 F Date Provider Department Center 10/21/2024 MARIANA WALTER BEBETO [facility] Family History Problem Relation Age of Onset Atrial fibrillation Mother Diabetes Father Kidney disease Father Heart attack Maternal Grandmother Family Status - Relation Status Age at Mother Alive Father Alive Maternal Grandmother Level of Service:16515 MD OFFICE/OUTPATIENT ESTABLISHED LOW MDM 20 MIN Normal [facility] Urinalysis macro (dipstick) panel (U)on 10-21-2024 Bilirubin, UA Negative Negative - 4(70) +++ mg/dL [facility] Blood, UA Negative Negative - 50 Osmin/mcL [facility] Clarity, UA Clear [facility] Color, UA Yellow [facility] Glucose, UA Negative Negative - 1999(110) ++++ mg/dL [facility] Interpretation and review of laboratory results Abnormal [facility] Ketones, UA Positive Negative - 160(16) ++++ mg/dL [facility] Leukocytes, UA Negative Negative - 500+++ Oumou/mcL [facility] Nitrite, UA Negative Negative - Positive [facility] pH, UA 5.5 5 - 9 [facility] [employer] Protein, UA Negative Negative - 1999(20) ++++ mg/dL [facility] Spec Grav, UA 1.02 1 - 1.[address] [facility] Urobilinogen, UA 1.0 0.2 - 12 mg/dL [facility] US OB 14+ WEEKS ANATOMY [...] II, MD, PHD at 18-Sep-2024 08:49:14 AM [facility] Normal Not Available Comment on above: Order Comment: US OB ANATOMY SINGLE W US OB CERVICAL LENGTH Estimated Date of Delivery: 01/17/25 Gestational Age as of 08/19/2024: 18w3d Urinalysis macro (dipstick) panel (U)on 09-16-2024 Bilirubin, UA Negative Negative - 4(70) +++ mg/dL [facility] Blood, UA Negative Negative - 50 Osmin/mcL [facility] Clarity, UA Clear [facility] re Color, UA Yellow [facility] [employer] Glucose, UA Negative Negative - 1999(110) ++++ mg/dL [facility] Interpretation and review of laboratory results Normal [facility] Ketones, UA Negative Negative - 160(16) ++++ mg/dL [facility] Leukocytes, UA Negative Negative - 500+++ Oumou/mcL [facility] Nitrite, UA Negative Negative - Positive [facility] pH, UA 6 5 - 9 [facility] e Protein, UA Negative Negative - 1999(20) ++++ mg/dL [facility] Spec Grav, UA 1.025 1 - 1.[address] [facility] Urobilinogen, UA 0.2 0.2 - 12 mg/dL [facility] GLUCOSE TOLERANCE 3 HOURon 0 08-23-2024 GLUCOSE TOLERANCE 3 HOUR High mg/dL [facility] Comment on above: GLU FAST 110H (<95) Col: 08/23/24 0738 GLU 1HR 173 (<180) Col: 08/23/24 0839 GLU 2HR 131 (<155) Col: 08/23/24 0939 GLU 3HR 67 (<140) Col: 08/23/24 1040 Interpretation and review of laboratory results Abnormal [facility] RECURRENT VAGINITIS (HTRX)on 08-20-2024 ATOPOBIUM VAGINAE 0 [facility] ATOPOBIUM VAGINAE Not detected [facility] BVAB 2,3 (BACTERIAL VAGINOSIS ASSOCIATED BACTERIA 2, 3); MOBILUNCUS SPP 0 [facility] BVAB 2,3 (BACTERIAL VAGINOSIS ASSOCIATED BACTERIA 2, 3); MOBILUNCUS SPP Not detected [facility] AGUSTIN ALBICANS, PARAPSILOSIS, TROPICALIS 0 [facility] AGUSTIN ALBICANS, PARAPSILOSIS, TROPICALIS Not detected [facility] AGUSTIN GLABRATA 0 [facility] Hea lthcare AGUSTIN GLABRATA Not detected [facility] AGUSTIN KRUSEI 0 [facility] AGUSTIN KRUSEI [facility] CHLAMYDIA TRACHOMATIS 0 [facility] S [facility] CHLAMYDIA TRACHOMATIS Not detected N [facility] GARDNERELLA VAGINALIS 0 [facility] GARDNERELLA VAGINALIS Not detected N [facility] MEGASPHAERA (TYPES 1, 2) 0 [facility] MEGASPHAERA (TYPES 1, 2) Not detected [facility] MYCOPLASMA GENITALIUM 0 [facility] MYCOPLASMA GENITALIUM Not detected N [facility] NEISSERIA GONORRHOEAE 0 [facility] S [facility] NEISSERIA GONORRHOEAE Not detected N [facility] TRICHOMONAS VAGINALIS 0 [facility] S [facility] TRICHOMONAS VAGINALIS Not detected N [facility] GLUCOSE 1 HOURon 08-19-2024 Glucose [Mass/Vol] 182 mg/dL High NINF - 13 0 mg/dL [facility] Interpretation and review of laboratory results Abnormal [facility] Urinalysis macro (dipstick) panel (U)on 08-19-2024 Bilirubin, UA Positive Negative - 4(70) +++ mg/dL [facility] Comment on above: small Blood, UA Negative Negative - 50 Osmin/mcL [facility] Clarity, UA Clear [facility] re Color, UA Yellow [facility] e Glucose, UA Negative Negative - 2000(110) ++++ mg/dL [facility] Interpretation and review of laboratory results Abnormal [facility] Ketones, UA Positive Negative - 160(16) ++++ mg/dL [facility] Comment on above: 15 Leukocytes, UA Negative Negative - 500+++ Oumou/mcL [facility] Nitrite, UA Negative Negative - Positive [facility] pH, UA 6 5 - 9 [facility] Protein, UA Positive Negative - 1999(20) ++++ mg/dL [facility] Comment on above: 30 Spec Grav, UA 1.025 1 - 1.[address] [facility] Urobilinogen, UA 0.2 0.2 - 12 mg/dL [facility] Urinalysis macro (dipstick) panel (U)on 07-22-2024 Bilirubin, UA Negative Negative - 4(70) +++ mg/dL [facility] Blood, UA Negative Negative - 50 Osmin/mcL [facility] Clarity, UA Clear [facility] re Color, UA [facility] Glucose, UA Negative Negative - 1999(110) ++++ mg/dL [facility] Interpretation and review of laboratory results Abnormal [facility] Ketones, UA Positive Negative - 160(16) ++++ mg/dL [facility] Comment on above: trace Leukocytes, UA Negative Negative - 500+++ Oumou/mcL [facility] Nitrite, UA Negative Negative - Positive [facility] pH, UA 6.5 5 - 9 [facility] Protein, UA Trace Negative - 1999(20) ++++ mg/dL [facility] Spec Grav, UA 1.025 1 - 1.[address] [facility] Urobilinogen, UA 0.2 0.2 - 12 mg/dL [facility] CBC and differentialon 07-15 Hematocrit (Bld) [Volume fraction] 42 % 36 - 46 % [facility] Hemoglobin (Bld) [Mass/Vol] 13.6 g/dL 12.0 - 16.0 g/dL [facility] Platelets (Bld) [#/Vol] 392 10*3/uL 150 - 399 10*3/uL [facility] WBC (Bld) [#/Vol] 9.2 10*3/mL 3.3 - 10.0 10*3/mL [facility] CBC without diffon Rbc Mcv (Fl) By Automated Count 85.4 [facility] Drug Screen, Urineon 025 Amphetamine/Methamphe tamine Negative [facility] Barbiturates Negative [facility] Benzodiazepines Negative [facility] Cocaine Metabolite Negative [facility] Methadone Negative [facility] Opiates Negative [facility] Oxycodone Negative [facility] Phencyclidine Negative [facility] Thc Marijuana, Urine Negative [facility] Glucose 1h post 50g loadon 0 07-15-2024 Glucose, 1Hr PP 182 [facility] HBV surface Ag IA Qlon 07-15 Hepatitis B Surface Antigen Negative [facility] HIV 1+2 Ab+HIV1 p24 Ag IA Ql on 07-15-2024 HIV 1&2 AB/AG Non-Reactive [facility] Laboratory - Chemistry and C hemistry - challengeon 07-15-2024 Glucose [Mass/Vol] 111 mg/dL [facility] Laboratory - Hematology and Cell countson 07-15-2024 HbA1c (Bld) [Mass fraction] 5.5 % 4.0 - 6.0 % [facility] Comment on above: ADA RECOMMENDED LIMI T 4.0 - 6.0 ADA THERAPEUTIC TARGET < 7.0 ACTION SUGGESTED > 7.0 MLR HEMOGLOBIN A1Con 025 [facility] No Panel Informationon 07-15 [facility] e Rubella IGG immune statuson 07-15-2024 Rubella immune IgG 1.77 [facility] T. pallidum IgG+IgM IA Ql (S )on 07-15-2024 Syphilis Non-Reactive [facility] Type and screenon 07-15-2024 Abo/Rh(D) Positive [facility] US OB TRANSVAGINALon 025 US OB TRANSVAGINAL [...] II, MD, PHD at 20-Jun-2024 08:24:08 AM [facility] Normal Not Available Comment on above: Order Comment: US OB TRANSVAGINAL No LMP recorded. [facility]H PREG QUANT HCGon 05-20- 025 HCG QUANTITATIVE 2792 mIU/mL [facility] ltare Comment on above: 5-50 0.2-1 WEEK 50-500 1-2 WEEKS 100-5,000 2-3 WEEKS 500-10,000 3-4 WEEKS 1,000-50,000 4-5 WEEKS 10,000-100,000 5-6 WEEKS 15,000-200,000 6-8 WEEKS 10,000-100,000 2-3 [facility] TBH PREG QUANT HCGon 025 HCG QUANTITATIVE 713 mIU/mL [facility]thcare Comment on above: 5-50 0.2-1 WEEK 50-500 1-2 WEEKS 100-5,000 2-3 WEEKS 500-10,000 3-4 WEEKS 1,000-50,000 4-5 WEEKS 10,000-100,000 5-6 WEEKS 15,000-200,000 6-8 WEEKS 10,000-100,000 2-3 MON[facility]S [facility] ALL CBC WITH AUTO DIFFon BASOPHILS ABSOLUTE AUTO 0.1 [facility] [employer] Basophils/100 WBC (Bld) 0.8 % 0.2 - 2.0 % [facility] Eosinophils/100 WBC (Bld) 3.5 % 0.9 - 7.0 % [facility] Erythrocyte distribution width (RBC) [Ratio] 13.2 % 11.0 - 15.0 % [facility] Hematocrit (Bld) [Volume fraction] 41.9 % 36.0 - 48.0 % [facility] Hemoglobin (Bld) [Mass/Vol] 13.8 g/dL 12.0 - 16.0 g/dL [facility] IMMATURE GRANULOCYTES ABS AUTO 0.02 [facility] Immature granulocytes/100 WBC (Bld) 0.3 % 0.0 - 0.5 % [facility] LYMPHOCYTES ABSOLUTE AUTO 2.5 [facility] Lymphocytes/100 WBC (Bld) 31.1 % 20.5 - 60.0 % [facility] MCH (RBC) [Entitic mass] 27.7 pg 26.7 - 34.0 pg [facility] MCHC (RBC) [Mass/Vol] 32.9 g/dL 29.9 - 35.2 g/dL [facility] MCV (RBC) [Entitic vol] 84 fL 81.0 - 99.0 fL [facility] MONOCYTES ABSOLUTE AUTO 0.5 [facility] Monocytes/100 WBC (Bld) 6.6 % 1.7 - 12.0 % [facility] NEUTROPHILS ABSOLUTE AUTO 4.6 [facility] Neutrophils/100 WBC (Bld) 57.7 % 43.0 - 75.0 % [facility] Platelet mean volume (Bld) [Entitic vol] 9.6 fL 9.5 - 13.5 fL [facility] Healthc are TBH EO # 0.3 [facility] TB PLT 429 [facility] RBC 4.99 [facility] TB WBC 8 [facility] CLINISYNC NOM Health[facility] e ALL CBC WITH AUTO DIFFon BASOPHILS ABSOLUTE AUTO 0.1 [facility] Basophils/100 WBC (Bld) 0.7 % 0.2 - 2.0 % [facility] Eosinophils/100 WBC (Bld) 3.7 % 0.9 - 7.0 % [facility] Erythrocyte distribution width (RBC) [Ratio] 13.2 % 11.0 - 15.0 % [facility] Hematocrit (Bld) [Volume fraction] 42.2 % 36.0 - 48.0 % [facility] Hemoglobin (Bld) [Mass/Vol] 14 [...] Healthcar e Office Visiton 12-25-2023 Follow-up visit [id number] Javid Prasad 1990 F Date Provider Department Center 12/25/2023 MARIANA WALTER CARD [facility] Family History Problem Relation Age of Onset Atrial fibrillation Mother Diabetes Father Kidney disease Father Heart attack Maternal Grandmother Family Status - Relation Status Age at Mother Father Maternal Grandmother Level of Service:69378 MD OFFICE/OUTPATIENT ESTABLISHED LOW MDM 20 MIN Normal [facility] Cytology Cervical or vaginal smear or [...] She can be sleepy during the day. [place] Sleepiness Scale score: 12. She is sleepy [...] her clinical (more content not included)... Normal [facility] CT HEAD WO CONon 12-21-2021 CT [...] by: CARLOS GALE Date: 2021-12-21 07:15 Normal [facility] CT TEMPORAL BONES WO CONon 0 [...] foramen are normal. Visualized paranasal sinuses clear. Deckhand Clam Dredge spaces normal. Orbital contents unremarkable. Posterior fossa structures normal. IMPRESSION: Normal CT of the temporal bones. Electronically authenticated by: LOUIS BRAY Date: 2021-12-21 16:11 Normal [facility] Comprehensive Metabolic Empo n 05-10-2021 Albumin [Mass/Vol] 4.1 g/dL Normal 3.2-5.5 [facility] Comment on above: Performed By: #### E BS LIPID, EBS A1C, EBS CMP #### [facility] [address] [place] [address] [place] Albumin/Globulin [Mass ratio] 1.3 {ratio} Normal [facility] Comment on above: Performed By: #### E BS LIPID, EBS A1C, EBS CMP #### [facility] [address] [place] [address] [place] ALP [Catalytic activity/Vol] 77 U/L Normal 32-92 [facility] Comment on above: Performed By: #### E BS LIPID, EBS A1C, EBS CMP #### [facility] [address] [place] [address] [place] ALT [Catalytic activity/Vol] 19 U/L Normal 10-60 [facility] Comment on above: Performed By: #### E BS LIPID, EBS A1C, EBS CMP #### [facility] [address] [place] [address] [place] AST [Catalytic activity/Vol] 18 U/L Normal 10-42 [facility] Comment on above: Performed By: #### E BS LIPID, EBS A1C, EBS CMP #### [facility] [address] [place] [address] [place] Bilirubin [Mass/Vol] 0.3 mg/dL Normal 0.3-1.2 [facility] Comment on above: Performed By: #### E BS LIPID, EBS A1C, EBS CMP #### [facility] [address] [place] [address] [place] Calcium [Mass/Vol] 9.2 mg/dL Normal 8.2-10.2 [facility] Comment on above: Performed By: #### E BS LIPID, EBS A1C, EBS CMP #### [facility] [address] [place] [address] [place] Chloride [Moles/Vol] 104 mmol/L Normal 95-114 [facility] Comment on above: Performed By: #### E BS LIPID, EBS A1C, EBS CMP #### [facility] [address] CO2 [Moles/Vol] 24.1 mmol/L Normal 22.0-30.0 [facility] Comment on above: Performed By: #### E BS LIPID, EBS A1C, EBS CMP #### [facility] [address] Creatinine [Mass/Vol] 0.69 mg/dL Normal 0.44-1.03 [facility] Comment on above: Performed By: #### E BS LIPID, EBS A1C, EBS CMP #### [address] Estimated GFR ( Liz > 60 [facility] Comment on above: Result Comment: GFR estimated reference range: According to KDOQI guidelines, <60 ml/min/1.73m2 is sufficient to diagnose a patient with chronic kidney disease. Performed By: #### E BS LIPID, EBS A1C, EBS CMP #### [facility] [address] Estimated GFR (Non- Am > 60 [facility] Comment on above: Performed By: #### E BS LIPID, EBS A1C, EBS CMP #### [address] Globulin (S) [Mass/Vol] 3.1 g/dL Normal [facility] Comment on above: Performed By: #### E BS LIPID, EBS A1C, EBS CMP #### [facility] [address] [place] [address] [place] Glucose [Mass/Vol] 106 mg/dL High 70-100 [facility] Comment on above: Result Comment: ADA recommended reference range Performed By: #### E BS LIPID, EBS A1C, EBS CMP #### [facility] [address] Potassium [Moles/Vol] 4.0 mmol/L Normal 3.5-5.1 [facility] Comment on above: Performed By: #### E BS LIPID, EBS A1C, EBS CMP #### [facility] [address] Protein [Mass/Vol] 7.2 g/dL Normal 6.1-7.9 [facility] Comment on above: Performed By: #### E BS LIPID, EBS A1C, EBS CMP #### [facility] [address] Sodium [Moles/Vol] 137 mmol/L Normal 136-146 [facility] Comment on above: Performed By: #### E BS LIPID, EBS A1C, EBS CMP #### [facility] [address] Urea nitrogen [Mass/Vol] 10 mg/dL Normal 9-23 [facility] Comment on above: Performed By: #### E BS LIPID, EBS A1C, EBS CMP #### [address] EBS A1C with Estimated Ave Primo luon 05-10-2021 Glucose [Mass/Vol] 111 mg/dL Normal [facility] Comment on above: Result Comment: PERF ORMED BY: [place] [address] PATHOLOGIST DOOR WORKER JERRY RAMSEY M.D. Performed By: #### E BS LIPID, EBS A1C, EBS CMP #### [facility] [address] [place] [address] HbA1c (Bld) [Mass fraction] 5.5 % Normal 4.3-5.6 [facility] Comment on above: Result Comment: Incr eased risk for diabetes: 5.7 - 6.4 diabetes: >6.4 glycemic control for adults with diabetes: <7.0 Performed By: #### E BS LIPID, EBS A1C, EBS CMP #### [facility] [address] Lipid Profileon 05-10-2021 Cholesterol [Mass/Vol] 202 mg/dL High 140-200 [facility] Comment on above: Result Comment: Chol less than 200 mg/dl low risk Chol 201-239 mg/dl borderline risk Chol 240 mg/dl and greater high risk Performed By: #### E BS LIPID, EBS A1C, EBS CMP #### [facility] [address] Cholesterol in HDL [Mass/Vol] 37 mg/dL Normal 35-85 [facility] Comment on above: Result Comment: HDL CHOL ATP-III CLASSIFICATION Cardiovascular Risk HDL > or equal to 60 mg/dL LOW HDL < 40 mg/dL HIGH Performed By: #### E BS LIPID, EBS A1C, EBS CMP #### [facility] [address] Cholesterol.total/Cho lesterol in HDL [Mass ratio] 5.5 {ratio} Normal <5.0 [facility] Comment on above: Result Comment: PERF ORMED BY: [place] [address] PATHOLOGIST DOOR WORKER JERRY RAMSEY M.D. Performed By: #### E BS LIPID, EBS A1C, EBS CMP #### [address] LDL Cholesterol,Calculate d 125 mg/dL High 0-100 [facility] Comment on above: Result Comment: LDL ATP III CLASSIFICATION LDL less than 100 mg/dL Optimal LDL 100-129 mg/dL Near or above optimal LDL 130-159 mg/dL Borderline high LDL 160-189 mg/dL High LDL greater than 189 mg/dL Very high Performed By: #### E BS LIPID, EBS A1C, EBS CMP #### [place] [address] [place] Triglyceride w/Reflex 199 mg/dL High 35-149 [...] BS LIPID, EBS A1C, EBS CMP #### [facility] [address] VLDL CHOLESTEROL 39 mg/dL Normal [facility] Comment on above: Performed By: #### E BS LIPID, EBS A1C, EBS CMP #### [place] [id number] [facility] Vital Signs Date Time Vital Sign Value Performing Clinician Ronaldo coello 12-02-2024 08:57-0400 Body mass index (BMI) [Ratio] 39.3 kg/m2 Miguel Riddhi DO Work Phone: [facility] 12-02-2024 08:57-0400 Body weight 131.45 kg Miguel Riddhi DO Work Phone: [facility] 12-02-2024 08:57-0400 Diastolic blood pressure 76 mm[Hg] Miguel Riddhi DO Work Phone: [facility] 12-02-2024 08:57-0400 Systolic blood pressure 114 mm[Hg] Miguel Riddhi DO Work Phone: [facility] 11-28-2024 11:44-0400 Body height 182.9 cm Saul Granados MD Work Phone: [facility] 11-28-2024 11:44-0400 Body mass index (BMI) [Ratio] 38.9 kg/m2 Saul Granados MD Work Phone: [facility] 11-28-2024 11:44-0400 Body weight 130.09 kg Saul Granados MD Work Phone: [facility] 11-28-2024 11:44-0400 Diastolic blood pressure 60 mm[Hg] Saul Granados MD Work Phone: [facility] 11-28-2024 11:44-0400 Heart rate 96 /min Saul Granados MD Work Phone: [facility] 11-28-2024 11:44-0400 Systolic blood pressure 114 mm[Hg] Saul Granados MD Work Phone: [facility] 11-18-2024 09:04-0400 Body mass index (BMI) [Ratio] 38.52 kg/m2 Miguel Riddhi DO Work Phone: [facility] 11-18-2024 09:04-0400 Body weight 128.82 kg Miguel Riddhi DO Work Phone: [facility] 11-18-2024 09:04-0400 Diastolic blood pressure 70 mm[Hg] Miguel Riddhi DO Work Phone: [facility] 11-18-2024 09:04-0400 Systolic blood pressure 112 mm[Hg] Miguel Riddhi DO Work Phone: [facility] 11-03-2024 15:07-0400 Body mass index (BMI) [Ratio] 38.63 kg/m2 Miguel Riddhi DO Work Phone: [facility] 11-03-2024 15:07-0400 Body weight 129.18 kg Miguel Riddhi DO Work Phone: [facility] 11-03-2024 15:07-0400 Diastolic blood pressure 74 mm[Hg] Miguel Riddhi DO Work Phone: [facility] 11-03-2024 15:07-0400 Systolic blood pressure 110 mm[Hg] Miguel Riddhi DO Work Phone: [facility] 10-21-2024 08:41-0400 Body mass index (BMI) [Ratio] 38.44 kg/m2 Maureen SINGLETON Work Phone: [facility] 10-21-2024 08:41-0400 Body weight 128.55 kg Maureen SINGLETON Work Phone: [facility] 10-21-2024 08:41-0400 Diastolic blood pressure 78 mm[Hg] Maureen SINGLETON Work Phone: [facility] 10-21-2024 08:41-0400 Systolic blood pressure 124 mm[Hg] Maureen SINGLETON Work Phone: [facility] 09-16-2024 09:49-0400 Body mass index (BMI) [Ratio] 37.57 kg/m2 Miguel Riddhi DO Work Phone: [facility] 09-16-2024 09:49-0400 Body weight 125.65 kg Miguel Riddhi DO Work Phone: [facility] 09-16-2024 09:49-0400 Diastolic blood pressure 76 mm[Hg] Miguel Riddhi DO Work Phone: [facility] 09-16-2024 09:49-0400 Systolic blood pressure 126 mm[Hg] Miguel Riddhi DO Work Phone: [facility] 08-19-2024 14:52-0400 Body mass index (BMI) [Ratio] 37.57 kg/m2 Maureen Paula PA Work Phone: [facility] 08-19-2024 14:52-0400 Body weight 125.65 kg Maureen Paula PA Work Phone: [facility] 08-19-2024 14:52-0400 Diastolic blood pressure 78 mm[Hg] Maureen Paula PA Work Phone: [facility] 08-19-2024 14:52-0400 Systolic blood pressure 128 mm[Hg] Maureen Paula PA Work Phone: [facility] 07-22-2024 09:47-0400 Body mass index (BMI) [Ratio] 37.3 kg/m2 Miguel Riddhi DO Work Phone: [facility] 07-22-2024 09:47-0400 Body weight 124.74 kg Miguel Riddhi DO Work Phone: [facility] 07-22-2024 09:47-0400 Diastolic blood pressure 86 mm[Hg] Miguel Riddhi DO Work Phone: [facility] 07-22-2024 09:47-0400 Systolic blood pressure 130 mm[Hg] Miguel Riddhi DO Work Phone: [facility] 02-19-2024 14:07-0500 Body mass index (BMI) [Ratio] 37.95 kg/m2 Maureen Paula PA Work Phone: [facility] 02-19-2024 14:07-0500 Body weight 126.92 kg Maureen Paula PA Work Phone: [facility] 02-19-2024 14:07-0500 Diastolic blood pressure 74 mm[Hg] Maureen SINGLETON Work Phone: [facility] 02-19-2024 14:07-0500 Systolic blood pressure 114 mm[Hg] Maureen SINGLETON Work Phone: [facility] 01-16-2024 16:38-0400 Body height 182.9 cm Miguel Riddhi DO Work Phone: [facility] 01-16-2024 16:38-0400 Body mass index (BMI) [Ratio] 37.57 kg/m2 Miguel Riddhi DO Work Phone: [facility] 01-16-2024 16:38-0400 Body weight 125.65 kg Miguel Riddhi DO Work Phone: [facility] 01-16-2024 16:38-0400 Diastolic blood pressure 80 mm[Hg] Miguel Riddhi DO Work Phone: [facility] 01-16-2024 16:38-0400 Systolic blood pressure 124 mm[Hg] Miguel Riddhi DO Work Phone: [facility] 12-25-2023 10:12-0400 Body height 182.9 cm Miguel Riddhi DO Work Phone: [facility] 12-25-2023 10:12-0400 Body mass index (BMI) [Ratio] 37.57 kg/m2 Miguel Riddhi DO Work Phone: [facility] 12-25-2023 10:12-0400 Body weight 125.65 kg Miguel Riddhi DO Work Phone: [facility] 12-25-2023 10:12-0400 Diastolic blood pressure 84 mm[Hg] Miguel Riddhi DO Work Phone: [facility] 12-25-2023 10:12-0400 Systolic blood pressure 122 mm[Hg] Miguel Riddhi DO Work Phone: [facility] Healthcare Encounters Encounter Date Encounter Type Care Provider Facility Start: 12-06-2024 End: 12-06-2024 Clinisync Result Encounter Miguel Riddhi DO Work Phone: [facility] External Department Unsolicited Start: 12-06-2024 End: 12-06-2024 Clinisync Result Encounter Miguel Riddhi DO Work Phone: [facility] External Department Unsolicited Start: 12-03-2024 End: 12-03-2024 Orders Only Hanny Hendrixgan MARKETING PL[employer] Work Phone: [facility] Start: 12-02-2024 End: 12-02-2024 Bamboo flowsheet Miguel Riddhi DO Work Phone: [facility] Start: 12-02-2024 End: 12-02-2024 Bamboo flowsheet Miguel Riddhi DO Work Phone: [facility]ED Start: 12-02-2024 End: 12-02-2024 flow sheet Miguel Riddhi DO Work Phone: [facility] Ruthie HERNANDEZ Comment on above: Third trimester preg shayla ([facility]); 33 weeks gestation of ([facility]); Gestational diabetes mellitus (GDM), antepartum, gestational diabetes method of control unspecified ([facility]) Start: 12-02-2024 End: 12-02-2024 ambulatory MIGUEL MATTSONO Not Available Start: 11-28-2024 End: 11-28-2024 Office outpatient new 45 minutes Saul Granados MD Work Phone: [facility] Comment on above: Insulin controlled g estational diabetes mellitus (GDM) in third trimester (Primary Dx); Prediabetes in mother during ; Family history of type 2 diabetes mellitus; Obesity affecting , antepartum, unspecified obesity type; 32 weeks gestation of Start: 11-28-2024 End: 11-28-2024 ambulatory [facility] Start: 11-27-2024 End: 11-27-2024 Clinisync Result Encounter Miguel Riddhi DO Work Phone: [facility] External Department Unsolicited Start: 11-27-2024 End: 11-27-2024 Clinisync Result Encounter Miguel Riddhi DO Work Phone: [facility] External Department Unsolicited Start: 11-26-2024 End: 11-26-2024 Documentation procedure Yojana Diehl RN [facility] Start: 11-26-2024 End: 11-26-2024 Telephone encounter Yojana Diehl RN [facility] Start: 11-25-2024 End: 11-25-2024 Telephone encounter Naomie Huber LD Work Phone: [facility] Start: 11-24-2024 End: 11-24-2024 Chart abstracting Scanning Provider External [facility] Start: 11-20-2024 End: 11-20-2024 ambulatory MIGUEL R [facility] Start: 11-18-2024 End: 11-18-2024 Bamboo flowsheet Miguel Riddhi DO Work Phone: [facility] Ruthie OBDEBBIEN Start: 11-18-2024 End: 11-18-2024 Bamboo flowsheet Miguel Riddhi DO Work Phone: [facility] Start: 11-18-2024 End: 11-18-2024 ambulatory MIGUEL RIDDHI Not Available Start: 11-18-2024 End: 11-18-2024 flow sheet Miguel Riddhi DO Work Phone: [facility] Comment on above: Third trimester preg shayla ([facility]); 31 weeks gestation of ([facility]); Gestational diabetes mellitus (GDM), antepartum, gestational diabetes method of control unspecified ([facility]) Start: 11-14-2024 End: 11-14-2024 Clinisync Result Encounter Miguel Riddhi DO Work Phone: [facility] External Department Unsolicited Start: 11-14-2024 End: 11-14-2024 Clinisync Result Encounter Miguel Riddhi DO Work Phone: [facility] External Department Unsolicited Start: 11-13-2024 End: 11-13-2024 Chart abstracting Generic External Data Provider [facility] Start: 11-12-2024 ambulatory VIRAL ALLRED [facility] Start: 11-10-2024 End: 11-10-2024 Clinisync Result Encounter Miguel Riddhi DO Work Phone: [facility] External Department Unsolicited Start: 11-10-2024 End: 11-10-2024 Clinisync Result Encounter Miguel Riddhi DO Work Phone: [facility] External Department Unsolicited Start: 11-03-2024 End: 11-03-2024 flow sheet Miguel Riddhi DO Work Phone: [facility] Comment on above: 29 weeks gestation o f ([facility]); Third trimester ([facility]) Start: 11-03-2024 End: 11-03-2024 ambulatory MIGUEL RIDDHI [...] [facility] Start: 10-21-2024 End: 10-21-2024 ambulatory [facility] Start: 10-21-2024 End: 10-21-2024 flow sheet Maureen SINGLETON Work Phone: [facility] Comment on above: Size of fetus incons istent with dates in second trimester ([facility]) (Primary Dx); Second trimester ([facility]); 27 weeks gestation of ([facility]) Start: 10-21-2024 End: 10-21-2024 ambulatory MAUREEN FELIZ Not Available Start: 09-16-2024 End: 09-16-2024 ambulatory MIGUEL HANNON Not Available Start: 09-16-2024 End: 09-16-2024 flow sheet Miguel Riddhi DO Work Phone: [facility] Comment on above: Second trimester pre gnancy; 22 weeks gestation of ; Elevated glucose tolerance test Start: 09-16-2024 End: 09-16-2024 ambulatory MIGUEL RIDDHI Not Available Start: 09-02-2024 ambulatory [facility] Start: 08-23-2024 End: 08-23-2024 Clinisync Result Encounter Maureen SINGLETON Work Phone: [facility] External Department Unsolicited Start: 08-23-2024 End: 08-23-2024 Clinisync Result Encounter Maureen SINGLETON Work Phone: [facility] External Department Unsolicited Start: 08-19-2024 End: 08-19-2024 [...] [facility] External Department Unsolicited Start: 06-26-2024 ambulatory [facility] Start: 06-19-2024 End: 06-19-2024 ambulatory MIGUEL RIDDHI Not Available Start: 05-21-2024 ambulatory [facility] Start: 05-20-2024 End: 05-20-2024 Clinisync Result Encounter [...] [facility] External Department Unsolicited Start: 04-21-2024 ambulatory [facility] Start: 04-14-2024 ambulatory [facility] Start: 03-07-2024 ambulatory [facility] Start: 02-25-2024 ambulatory [facility] Start: 02-19-2024 End: 02-19-2024 Bamboo flowsheet Maureen [...] MAUREEN FELIZ Not Available Start: 02-14-2024 ambulatory [facility] Start: 02-08-2024 End: 02-08-2024 Clinisync Result Encounter [...] Department Unsolicited Start: 01-16-2024 ambulatory VIRAL [facility] Start: 01-16-2024 End: 01-16-2024 Office outpatient [...] uterine bleeding Start: 12-25-2023 End: 12-25-20[address] [facility] Start: 12-11-2023 End: 12-11-2023 Clinisync Result Encounter Aristides Araiza DO Work Phone: [facility] External Department Unsolicited Start: 12-11-2023 End: 12-11-2023 Clinisync Result Encounter Aristides Araiza DO Work Phone: [facility] External Department Unsolicited Start: 12-12-2022 End: 12-15-2022 ambulatory EMEKA Brewer [facility] Start: 06-19-2022 End: 06-20-2022 ambulatory Isabella Raygoza [employer] Facility:[facility] Start: 05-30-2022 End: 05-31-2022 ambulatory Adebayo Latham DO Facility:[facility] Start: 05-16-2022 End: 05-17-2022 ambulatory Isabella Raygoza [employer] Facility:[facility] Start: 12-20-2021 End: 12-21-[address] ADEBAYO SOLARES Facility:[facility] Start: 11-15-2021 End: 11-16-[address] ADEBAYO SOLARES Facility:[facility] Procedures Date Procedure Procedure Detail Performing Clinician Start: 12-06-2024 OB BPP W NON-STRESS Miguel Riddhi DO Work Phone: Start: 12-02-2024 Urnls dip stick/tabl et rgnt non-auto w/o micrscp Miguel Riddhi DO Work Phone: Start: 11-28-2024 Hemoglobin glycosyla jasbir a1c Saul Granados MD Work Phone: Start: 11-27-2024 OB BPP W NON-STRESS Miguel Riddhi DO Work Phone: Start: 11-20-2024 End: 11-20-2024 Nonphysician online assessment and management Gestational diabetes mellitus (GDM) in second trimester, gestational diabetes method of control unspecified Miroslava Trinidad RN Work Phone: Comment on above: Gestational diabetes mellitus (GDM) in second trimester, gestational diabetes method of control unspecified Start: 11-18-2024 Urnls dip stick/tabl et rgnt non-auto w/o micrscp Miguel Ridhdi DO Work Phone: Start: 11-14-2024 US OB [...] - Td or Tdap) [facility] Start: 12-12-2028 Screening for malign ant neoplasm of cervix [facility] Start: 12-12-2026 Screening for malign ant neoplasm of cervix Pap Smear [facility] Start: 11-28-2025 Adult BMI Screening Adult BMI Screen ing [facility] Start: 11-28-2025 Tobacco Screening Tobacco Screening [facility] Start: 01-06-2025 End: 01-06-2025 Patient encounter procedure 01/06/2025 9:10 AM EDT Routine [facility] [address] [place] [address] Miguel Hannon, DO [address] [place] [address] [facility] Start: 12-30-2024 End: 12-30-2024 Patient encounter procedure 12/30/2024 8:30 AM EDT Routine [facility] [address] [place] [address] Maureen Feliz PA [address] [facility] [place] [address] [facility] Start: 12-23-2024 End: 12-23-2024 Patient encounter procedure 12/23/2024 11:30 AM EDT Routine [facility] [address] [place] [phone] Miguel Hannon, DO [address] [place] [address] [facility] Start: 12-18-2024 End: 12-18-2024 Telemedicine consultation with patient 12/18/2024 8:00 AM EDT Telemedicine Maternal- Medicine at [facility] [address] [place] [address] Hanny Ware, MARKETING [employer] [address] [place] [address] Maternal- Medicine at [facility] Start: 12-16-2024 End: 12-16-2024 Patient encounter procedure 12/16/2024 1:10 PM EDT Routine [facility] [address] [facility] [facility] [place] [phone] Maureen Feliz PA [address] [facility] [place] [address] [facility] [place] [facility] Start: 12-15-2024 Influenza vaccination N [facility] Start: 12-11-2024 End: 12-11-2024 Patient encounter procedure 12/11/2024 1:00 PM EDT Appointment [facility] [place] [address] [facility] [address] [place] [phone] [facility] [place] Start: 12-02-2024 End: 12-02-2024 Patient encounter procedure [facility] HERNANDE[facility] Comment on above: Arrived Start: 11-20-2024 End: 11-20-2024 Telemedicine consultation with patient 11/20/2024 10:30 AM EDT Telemedicine Maternal- Medicine at [facility] [address] [place] [phone] Miroslava Trinidad RN [address] [facility], [address] [place] [address] Juli Quezada, ENE MayoNaomie henry, ENE [address] [place] [address] Maternal- Medicine at [facility] Start: 11-18-2024 End: 05-21-2025 US biophysical profile w non stress test US biophysical profile w non stress test Imaging Routine Gestational diabetes mellitus (GDM), antepartum, gestational diabetes method of control unspecified ([facility]) Expected: 11/18/2024 (Approximate), Expires: 05/21/2025 [facility] Work Phone: Comment on above: Expected: 11/18/2024 (Approximate), Expires: 05/21/2025 Start: 11-18-2024 End: 11-18-2024 Patient encounter procedure 11/18/2024 8:50 AM EDT Routine [facility] [address] [place] [phone] Miguel Hannon, DO [address] [place] [address] [facility] Start: 11-03-2024 End: 11-03-2024 Patient encounter procedure [facility] Comment on above: Arrived Start: 11-03-2024 End: 11-03-2024 Professional / ancillary services management 11/03/2024 2:00 PM EDT Ancillary Procedure [facility] [address] [place] [address] [facility] Start: 10-21-2024 End: 02-21-2025 US for US OB follow up transabdominal approach Imaging Routine Size of fetus inconsistent with dates in second trimester ([facility]) Expected: 10/21/2024, Expires: 02/21/2025 [facility] Healthcare Work Phone: Comment on above: Expected: 10/21/2024 , Expires: 02/21/2025 Start: 10-21-2024 End: 10-21-2024 Patient encounter procedure [facility] Comment on above: Arrived Start: 09-16-2024 End: 09-16-2025 Measurement of glucose 3 hours after glucose challenge for glucose tolerance test Glucose tolerance, 3 hours Lab Routine Elevated glucose tolerance test Expected: 09/16/2024 (Approximate), Expires: 09/16/2025 [facility] Healthcare Work Phone: Comment on above: Expected: 09/16/2024 (Approximate), Expires: 09/16/2025 Start: 09-16-2024 End: 09-16-2024 Patient encounter procedure 09/16/2024 9:30 AM EDT Routine [facility] [address] [place] [phone] Miguel Hannon, DO [address] [place], [place] [phone] [facility] Start: 09-16-2024 End: 09-16-2024 Professional / ancillary services management 09/16/2024 8:30 AM EDT Ancillary Procedure [facility] [address] [facility] [facility] [place] [phone] [facility] Start: 08-19-2024 End: 08-19-2024 Patient encounter procedure 08/19/2024 2:20 PM EDT Routine [facility] [address] [facility] [address] Maureen Feliz PA [address] [facility] [place] [address] [facility] Start: 08-19-2024 End: 09-19-2024 Alpha fetoprotein, maternal Alpha fetoprotein, maternal Lab Routine Need for maternal serum alpha-protein (MSAFP) screening Expected: 08/19/2024 (Approximate), Expires: 09/19/2024 [facility] Comment on above: Expected: 08/19/2024 (Approximate), Expires: 09/19/2024 Start: 08-19-2024 End: 08-19-2025 Measurement of glucose 3 hours after glucose challenge for glucose tolerance test Glucose tolerance, 3 hours Lab Routine Elevated glucose tolerance test Expected: 08/19/2024 (Approximate), Expires: 08/19/2025 [facility] Comment on above: Expected: 08/19/2024 (Approximate), Expires: 08/19/2025 Start: 08-19-2024 End: 11-19-2024 US for US OB 14+ weeks anatomy scan Imaging Routine Screening, , for anatomic survey Expected: 08/19/2024, Expires: 11/19/2024 [facility] Comment on above: Expected: 08/19/2024 , Expires: [...] PM EST Initial [facility] [address] [place] [phone] [facility] Start: 06-19-2024 End: 06-19-2024 Professional / ancillary services management 06/19/2024 2:00 PM EST Ancillary Procedure [facility] [address] [place] [address] [place] [address] [facility] Start: 02-19-2024 End: 02-19-2024 Patient encounter procedure 02/19/2024 1:40 PM EST Office Visit [facility] [address] [place] [address] [place] [address] Maureen Feliz PA [address] [facility] [address] [place], [place] [phone] Arrived [facility] Comment on above: Arrived Start: 01-16-2024 End: 01-16-2024 Patient encounter procedure 01/16/2024 4:00 PM EDT Consult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 Date Adebayo Solares MD [address] [phone] PCP - General Family Medicine 11/19/23 Drum Drier Operator Relationship Specialty Start Date End Date Adebayo Solares MD [address] [place] [address] PCP - General Family Medicine 11/19/23 Drum Drier Operator Relationship Specialty Start Date End Date Adebayo Solares MD [address] [phone] PCP - General Family Medicine 11/19/23 Drum Drier Operator Relationship Specialty Start Date End Date Adebayo Solares MD [address] [phone] (Work) PCP - General Family Medicine 11/19/23 Drum Drier Operator Relationship Specialty Start Date End Date Adebayo Solares MD [address] [phone] (Work) PCP - General Family Medicine 11/19/23 Drum Drier Operator Relationship Specialty Start Date End Date Adebayo Solares MD [address] [phone] (Work) PCP - General Family Medicine 11/19/23 Drum Drier Operator Relationship Specialty Start Date End Date Adebayo Solares MD [address] [phone] PCP - General Family Medicine 11/19/23 Reason [...] of control unspecified Miguel Hannon R, DO [address] [place] [address] Phone: tel: fax: Maternal- Medicine at [facility] [address] [place] [address] Phone: tel: fax: Referral ID Status Reason Start Date Expiration Date Visits Requested Visits Authorized [id number] Pending Review Specialty Services Required 11/11/2024 11/11/2025 [...] BE BASED ON THE PRIMARY CLINICAL RECORDS. [employer] [facility]. provides no warranty or guarantee of the accuracy or completeness of information in this document.
--- OUTSIDE RECORDS SUMMARY | 2024-12-09 20:02 | XMS_ITS | Patient Health Record ---
Author Organization [facility] [place] Address [address] [place] [address] Care Team Providers Care Mortuary Technician Name Role Phone Adebayo Quinones Primary Care [...] day Active PNV Active Vitamin D (Ergocalciferol) 63425 UNIT 1 capsule Orally qweekly for 30 days 06/18/2023 Active Meclizine HCl Not-Ta joy Immunizations Vaccine Route Administration Date Status Comme nts Flu, Fluzone (89679) 6 mos+, single-dose syringe/vial (3905-0926) Unknown 02/12/2023 Administered Social History Tobacco Use: Social History Observation Description Date Details (start date - stop date) Never Smoker NA - NA Tobacco Use/Smoking Question Answer Notes Patient 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 Alcohol Screen (Audit-C) Question Answer Notes Did you have a drink containing alcohol in the p ast year? 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 GOVERNMENT SALES MANAGER Problems Problem Type SNOMED Code ICD Code Onset Dates Problem Status W/U Status Risk Notes Problem 87844073 Vitamin D deficiency, unspecified (E55.9) Active confirmed Problem 10649575094437 Morbid (severe) obesity due to excess calories (E66.01) Active confirmed Problem 759426407 Obesity, unspecified (E66.9) Active confirmed Problem 119358747 Mixed hyperlipidemia (E78.2) Active confirmed Problem 3746932 Female infertili ty, unspecified (N97.9) Active confirmed Problem 00834015 CAROLA (obstructive sleep apnea) (G47.33) Active confirmed Problem 310358440 Gastroesophageal reflux disease without esophagitis (K21.9) Active confirmed Problem 87124517 Sleep walking (F51.3) Active confirmed Problem 258490913 Insomnia, unspecified type (G47.00) Active confirmed Problem 56704282 Night terrors (F51.4) Active confirmed Problem 009587129 Body mass index [BMI] 36.0-36.9, adult (Z68.36) Active confirmed Problem 207742588 Body mass index [BMI] 38.0-38.9, adult (Z68.38) Active confirmed Encounters Encounter Location Date Provider Diagnosis [facility] [address] [place] [address] 11/11/2024 Adebayo Quinones Plan Of Treatment Pending [...] Name:Adebayo burr, 01/26/2025 10:00:00 AM, [address] [place], [address], Insurance Providers Payer Name Payer Address Payer Phone Subscriber Number Group Number Insured Name Patient Relationship to Insured Coverage Start Date Coverage End Date [employer] ACCESS PPO PLUS LOCAL PLAN [address] [place] [phone] [id number] Andressa Prasad Self - patient is the insured 4 Medical (General) History Medical History History ICD Code prediabetes B12 deficiency hyperlipidemia gerd carola
--- OUTSIDE RECORDS SUMMARY | 2024-12-09 20:02 | XMS_ITS | Encounter Summary ---
Author Organization [facility] tem Address [id number] [address] [place] [address] Care Team Providers Care Vehicle Refinisher Name Role Phone Unavailable Primary Care Provider Unavailabl e Encounter Details Date Type Department Care Team (Late st Contact Info) Description 12/09/2024 Telephone Maternal- Medicine at [facility] [address] [facility] [place] [address] Yojana Diehl, HALEY Social History [...] Telephone Encounter - Yojana Diehl RN - 12/09/2024 6:32 PM EDT Called pt to discuss her insulin change for this week. Mary Scanlon reviewed her blood sugars and would like her to increase her lantus in the evening to 16 units. Pt verbalized understanding, we will pull her report again next week. documented in this encounter Plan of Treatment Upcoming Encounters Date Type Department Care Team (Late st Contact Info) Description 12/11/2024 1:00 PM EDT Appointment Maternal Medicine [place] [address] [facility] [address] [place] [address] 12/18/2024 8:00 AM EDT Telemedicine Maternal- Medicine at [facility] [address] [place] [address] Hanny Ware, REVENUE LIAISON-KETTLE GIRL [address] [place] [address] documented as of this encounter Visit Diagnoses Not on filedocumented in this encounter
--- OUTSIDE RECORDS SUMMARY | 2024-12-09 20:02 | XMS_ITS | Clinical Summary ---
Author Organization [facility] Address [address], [address] [place] [address] Care Team Providers Care Assembler Garment Form Name Role Phone Unavailable Primary Care Provider [...]
--- OUTSIDE RECORDS SUMMARY | 2024-12-09 20:02 | XMS_ITS | Encounter Summary ---
Author Organization [facility] [employer] [facility] tem Address [id number] [address] [place] [address] Care Team Providers Care Production Cook Name Role Phone Unavailable Primary Care Provider Unavailabl e Encounter Details Date Type Department Care Team (Late st Contact Info) Description 12/03/2024 Telephone Maternal- Medicine at [facility] [address] [facility] [place] [address] Juli Quezada LD Social History [...] units each evening. Will send patient a [employer] message as well and asked patient to confirm with us via phone or [employer] that she received the dose change information. documented in this encounter Plan of Treatment Upcoming Encounters Date Type Department Care Team (Late st Contact Info) Description 12/11/2024 1:00 PM EDT Appointment Maternal Medicine [place] [address] [facility] [address] [place] [address] 12/18/2024 8:00 AM EDT Telemedicine Maternal- Medicine at [facility] [address] [place] [phone] Hanny Ware, SWIMMING POOL SERVICE TECHNICIAN-[facility] [address] [place] [address] documented as of this encounter Visit Diagnoses Not on filedocumented in this encounter
--- OUTSIDE RECORDS SUMMARY | 2024-12-09 20:02 | XMS_ITS | Encounter Summary ---
Author Organization [facility] tem Address [id number] [address] [place] [address] Care Team Providers Care Events Manager Name Role Phone Unavailable Primary Care Provider Unavailabl e Encounter Details Date Type Department Care Team (Late st Contact Info) Description 12/03/2024 Orders Only Maternal- Medicine at [facility] [address] [place] [phone] Hanyn Ware, SCORER SINGLE-VIDEO CAMERA OPERATOR [address] [place] [address] Social History Tobacco Use Types Packs/Day Years [...] 12/11/2024 1:00 PM EDT Appointment Maternal Medicine [place] [address] [facility] [address] [place] [address] 12/18/2024 8:00 AM EDT Telemedicine Maternal- Medicine at [facility] [address] [place] [phone] Hanny Ware, SCORER SINGLE-VIDEO CAMERA OPERATOR [address] [place] [address] documented as of this encounter Visit Diagnoses Not on filedocumented in this encounter
--- OUTSIDE RECORDS SUMMARY | 2024-12-09 20:02 | XMS_ITS | Encounter Summary ---
Author Organization [facility] Address [address] [place] [address] Care Team Providers Care Buzzsaw Operator Helper Name Role Phone Adebayo Quinones DO Primary Care Provider [phone] Encounter Details Date Type Department Care Team (Late st Contact Info) Description 10/22/[address] [facility] [address] [place] [address] Janell Felton MD [address] [place] [address] Social History Tobacco Use Types [...] on filedocumented in this encounter Care Teams Buzzsaw Operator Helper Relationship Specialty Start Date End Date Adebayo Quinones DO [address] [place] [address] PCP - General 11/14/22 documented as of this encounter
--- OUTSIDE RECORDS SUMMARY | 2024-12-09 20:02 | XMS_ITS | Encounter Summary ---
Author Organization [facility] [employer] s tem Address [id number] [address] [place] [address] Care Team Providers Care Chocolate Temperer Name Role Phone Unavailable Primary Care Provider [...] 12/11/2024 1:00 PM EDT Appointment Maternal Medicine [place] [address] [facility] [address] [place] [phone] 12/18/2024 8:00 AM EDT Telemedicine [facility] at [facility] [address] [place] [phone] Hanny Ware, LANDSCAPING SPECIALIST-POURER [address] [place] [address] documented as of this encounter Visit Diagnoses Not on filedocumented in this encounter
--- OUTSIDE RECORDS SUMMARY | 2024-12-09 20:02 | XMS_ITS | Encounter Summary ---
Author Organization [facility] tem Address [facility] [place]-[id number] [address] [place] [address] Care Team Providers Care Automobile Sales Representative Name Role Phone Unavailable Primary Care Provider Unavailabl e Encounter Details Date Type Department Care Team (Late st Contact Info) Description 11/25/2024 Telephone Maternal- Medicine at [facility] [address] [place] [address] Naomie Huber, ENE [address] [place] [address] Social History Tobacco Use Types Packs/Day Years [...] meals. Asked that she call back at [phone] and let us know if she is having any consistent elevated blood sugars. documented in this encounter Plan of Treatment Upcoming Encounters Date Type Department Care Team (Late st Contact Info) Description 12/11/2024 1:00 PM EDT Appointment Maternal Medicine [place] [address] [facility] [address] [place] [address] 12/18/2024 8:00 AM EDT Telemedicine Maternal- Medicine at [facility] [address] [place] [address] Hanny Ware, SECURITY DEVELOPER-LOTUS NOTES DEVELOPER [address] [place], [place] [phone] documented as of this encounter Visit Diagnoses Not on filedocumented in this encounter
--- OUTSIDE RECORDS SUMMARY | 2024-12-09 20:02 | XMS_ITS | Clinical Summary ---
Author Organization [facility] Address [address] [place] [address] Care Team Providers Care Structural Metal Fabricator Apprentice Name Role Phone Adebayo Quinones DO Primary Care Provider [phone] Allergies No known active allergies Medications omeprazole [...] Description 11/24/2024 3:30 PM EDT Ancillary Procedure [facility] [address] [place] [address] Awareness of heartbeats 11/12/2024 Orders Only [facility] [place] [facility] [address] [facility] [place] [address] Yoseph Mcintosh MD 10/22/2024 1:50 AM EDT Ancillary Procedure [facility] [address] [place] [address] Awareness of heartbeats 10/22/2024 Orders Only [facility] [address] [place] [address] Janell Felton MD 10/21/2024 10:00 AM EDT Office Visit [facility] [address] [place] [phone] Yoseph Mcintosh MD Palpitations (Primary Dx) from [...] this topic Medical Devices Implanted Type Area Lacing String Cutter Device Identifier Shelf Expiration Date Model / Serial / Lot Monitor,Cardi ac,Lux,Dxii+I - [id number] - [id number] Implanted:Qty : 1 on 06/18/2023 by Yoseph Mcintosh MD at [facility] Implantable Loop Recorder Left: Chest Fast Drinks 11/26/2024 [id number] / [id number] / Procedures Procedure Name Priority Date/Time Associated [...] Yoseph Mcintosh MD CV IMPLANTABLE CARDIAC DEVICE MA OCEDURES Final Result CPACS * Cardiac device check - Remote loop recorder (ILR) (11/12/2024 12:00 AM EDT) Only the most recent of2 resultswithin the time period is included. Anatomical Region Laterality Modality Other 11/12/2024 us Yoseph Mcintosh MD CV IMPLANTABLE CARDIAC DEVICE MA OCEDURES Final Result from Last 3 Months Insurance Care Teams Structural Metal Fabricator Apprentice Relationship Specialty Start Date End Date Adebayo Quinones DO [address] [place] [address] PCP - General 11/14/22
--- OUTSIDE RECORDS SUMMARY | 2024-12-09 20:02 | XMS_ITS | Encounter Summary ---
Author Organization [facility] tem Address [facility] [place][id number] [address] [place] [address] Care Team Providers Care Core Drilling Supervisor Name Role Phone Unavailable Primary Care Provider Unavailabl e Encounter Details Date Type Department Care Team (Late st Contact Info) Description 11/25/2024 Telephone Maternal- Medicine at [facility] [address] [place] [address] Naomie Huber, ENE [address] [place] [address] Social History Tobacco Use Types Packs/Day Years [...] but suggested maybe something like glycerna or Yorder drink for a snack. Advised that she does non haveto send food logs any longer and that we will review her Dexcom readings weekly. documented in this encounter Plan of Treatment Upcoming Encounters Date Type Department Care Team (Late st Contact Info) Description 12/11/2024 1:00 PM EDT Appointment Maternal Medicine [place] [address] [facility] [address] [place] [address] 12/18/2024 8:00 AM EDT Telemedicine Maternal- Medicine at [facility] [address] [place] [address] Hanny Ware, TRANSFER AGENT-NURSING RESIDENT [address] [place] [address] documented as of this encounter Visit Diagnoses Not on filedocumented in this encounter
--- OUTSIDE RECORDS SUMMARY | 2024-12-09 20:02 | XMS_ITS | Encounter Summary ---
Author [facility] tem Address [facility] [place] [place]-Y30524 [address] [place] [address] Care Team Providers Care Associate Director Career Services Name Role Phone Unavailable Primary Care Provider Unavailabl e Encounter Details Date Type Department Care Team (Late st Contact Info) Description 11/26/2024 Documentation Maternal- Medicine at [facility] [address] [place] [address] Yojana Diehl, HALEY Social History [...] 12/11/2024 1:00 PM EDT Appointment Maternal Medicine [place] [address] [facility] [address] [place] [address] 12/18/2024 8:00 AM EDT Telemedicine Maternal- Medicine at [facility] [address] [place] [address] Hanny Ware, DIESEL TECHNICIAN-TUNNEL MINER [address] [place] [address] documented as of this encounter Visit Diagnoses Not on filedocumented in this encounter
[2024-12-09 20:07] VITALS: BP 132/60; PULSE 103
== END 2024-12-09 20:35 | disposition home or self-care (01) ==
LOC: FBCO 20:00 → FBC 20:03
PROVIDERS: PCP Family Medicine; Visit Provider Obstetrics & Gynecology
DX: O24.419 Gestational diabetes mellitus in pregnancy, unspecified control (principal); Z3A.34 34 weeks gestation of pregnancy
CPT/HCPCS: 59025

== ENCOUNTER 2024-12-12 18:58 | Outpatient (OUT) | payer BC, SELFPAY ==
--- OUTSIDE RECORDS SUMMARY | 2023-11-01 10:00 | XMS_ITS ---
Author Organization [facility] in [place] Address [address] [facility] [place] [address] Care Team Providers Care Director Internal Audit Name Role Phone Adebayo Quinones Primary Care Provider REASON FOR VISIT Rectal bleeding Encounters Encounter Location Date Provider Diagnosis [facility] [address] [place] [address] 11/01/2023 Adebayo Quinones Plan Of Treatment Next Appt Details Provider Name:Adebayo burr, 01/26/2025 10:00:00 AM, [address] [place], [address], Progress Notes * Andressa TRIPLETTDOB: [birth year] (33 yo F)Acc No.[id number]:11/01/2023 UNLOCKED PROGRESS NOTE Established Patient: Stephanie WAYNEJIMENEZ Andressa Provider: Maria E Quinones DO :1990 A ge:32 Y S ex:Female Date:11/01/2023 Address:[address] [place] [phone] Subjective: * Chief Complaints: * 1 . Rectal bleeding. * Medical History: Objective: * Vitals: Assessment: Plan: * Treatment: * * Electronic signature of Shabbir Quinones DO, [id number] on 12/12/2024 at 07:01 PM EDT Sign off status: Pending Visit Status: R /S (Rescheduled) * Provider: Maria E Quinones DO Date: 0 11/01/2023 Generated for Tiffanie burr/Gaby/Faustinoitting on: 0 12/12/2024 07:01 PM EDT
--- OUTSIDE RECORDS SUMMARY | 2023-11-08 11:15 | XMS_ITS ---
Author Organization [facility] in [place] Address [address] [place] [address] Care Team Providers Care Food Service Manager Name Role Phone Stacie Adebayo Primary Care Provider Allergies Allergen (clinical drug ingredient) Drug/Non Drug Allergy documented on EMR Reaction Allergy Type Onset Date Status Ragweed Unknown Allergy Active Reason For Referral Reason rectal bleeding Diagnosis 1 Hemorrhage of anus a nd rectum (K62.5) Referral Organization Family Practice [facility] Referring Provider First Name Adebayo Referring Provider Last Name Stacie Referring Provider Speciality Family Med [facility] Referred Provider Specialty General Surg estuardo [...] day Active PNV Active Vitamin D (Ergocalciferol) 63572 UNIT 1 capsule Orally qweekly for 30 days 06/18/2023 Active Metoprolol Tartrate 25 MG 1 tablet with food Orally Twice a day for 30 day(s) 11/14/2021 Not-Taking Meclizine HCl Not-Ta joy Social History Tobacco Use: Social History Observation Description Date Details (start date - stop date) Never Smoker NA - NA Tobacco Use/Smoking Question Answer Notes 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 Problems Problem Type SNOMED Code ICD Code Onset Dates Problem Status W/U Status Risk Notes Problem 9837403 Female infertili ty, unspecified (N97.9) Active confirmed Problem 348121851 Body mass index [BMI] 36.0-36.9, adult (Z68.36) Active confirmed Problem 156962967 Obesity, unspecified (E66.9) Active confirmed Problem 734542286 Mixed hyperlipidemia (E78.2) Active confirmed Problem 53950520 Vitamin D deficiency, unspecified (E55.9) Active confirmed Vital Signs Weight 272.2 lbs 11/08/2023 Height 72 in 11/08/2023 Blood pressure systolic 142 mm Hg 11/08/19 24 Blood pressure diastolic 90 mm Hg 024 Heart Rate 82 /min 11/08/2023 Respiratory Rate 16 /min 11/08/2023 BMI 36.91 kg/m2 11/08/2023 Oximetry 98 % 11/08/2023 Encounters Encounter Location Date Provider Diagnosis [facility] [address] [place] [address] 11/08/2023 Adebayo Quinones Hemorrhage of anus a [...] K62.5) fax referral to dr miner at [facility] for eval and tx and colonoscopy prob int hem fiber monitor 11/08/2023 Female infertility, unspecified (ICD-10 - N97.9) set up pelvic US - ?PCOS f/u laborer as directed ?PCOS - d/w pt possible [...] rectum fax referral to dr miner at [facility] for eval and tx and colonoscopy prob int hem fiber monitor Female infertility, unspecified set up pelvic US - ?PCOS f/u laborer as directed ?PCOS - d/w pt possible [...] Name:Adebayo burr, 01/26/2025 10:00:00 AM, [address] [place], [address], Progress Notes * Andressa TRIPLETTDOB: [birth year] (32 yo F)Acc No.[id number]:11/08/2023 Established Patient: Andressa ALBERT Provider: Maria E Quinones DO :1990 A ge:32 Y S ex:Female Date:11/08/2023 Address:[address] [place], [place] [address], [id number] Check In:03:03 PM ESTCheck O ut:03:23 PM [...] menses at time of bleeding appt with laborer 12/2023 trying to get for 1 year [...] Once a day PNV Vitamin D (Ergocalciferol) 39203 UNIT Capsule 1 capsule Orally qweekly Taking Omeprazole 40 MG Capsule Delayed Release 1 capsule 30 minutes before morning meal Orally Once a day Taking PNV Taking Vitamin D (Ergocalciferol) 07966 UNIT Capsule 1 capsule Orally qweekly Not-Taking/PRNMeclizine [...] set up pelvic US - ?PCOS f/u laborer as directed ?PCOS - d/w pt possible [...] 11/08/2023 Generated for Tiffanie burr/Gaby/eTnaomismitting on: 0 12/12/2024 07:00 PM EDT History and Physical Notes * [...]
--- OUTSIDE RECORDS SUMMARY | 2023-11-26 11:38 | XMS_ITS ---
Author Organization [facility] in [place] Address [address] [place] [address] Care Team Providers Care Clinical Project Coordinator Name Role Phone Adebayo Quinones Primary Care Provider Results Component Value Reference Range Notes US Transabdominal & Transvag inal (Not yet reviewed by provider) Interpretation: Performing Lab: Notes/Report: REASON FOR VISIT need order changed Encounters Encounter Location Date Provider Diagnosis [facility] [address] [place] [address] 11/26/2023 Adebayo Quinones Female infertility, unspecified N97.9 Assessments Encounter Date Diagnosis (ICD Code) Assessment Notes Treatment Notes Treatment Clinical Notes Section Notes 11/26/2023 Female infertility, unspecified (ICD-10 - N97.9) Plan Of Treatment Pending Test Test Name Order Date US Transabdominal & Transvaginal 024 Next Appt Details Provider Name:Adebayo burr, 01/26/2025 10:00:00 AM, [address] [place], [address], Progress Notes * Andressa TRIPLETTDOB: [birth year] (32 yo F)Acc No.[id number]:11/26/2023 Patient: Andressa ALBERT :1990 A ge:32 Y S ex:Female Address:[address] [place] [address], [phone] Subjective: * Chief Complaints: * N eed order changed * Medical History: * Surgical History: * Hospitalization/Major Diagno stic Procedure: * Medications: Objective: * Vitals: * Physical Examination: Assessment: * Assessment: 1. F emale infertility, unspecified - N97.9 (Primary) Plan: * Treatment: * Procedure Codes: * true * Date: Generated for Tiffanie burr/Gaby/Aydensmitting on: 0 12/12/2024 07:01 PM EDT
--- OUTSIDE RECORDS SUMMARY | 2024-11-11 10:09 | XMS_ITS ---
Author Organization [facility] in [place] Address [address] [place] [address] Care Team Providers Care Distributor Publications Name Role Phone Adebayo Quinones Primary Care Provider REASON FOR VISIT needs wellness Encounters Encounter Location Date Provider Diagnosis [facility] [address] [place] [address] 11/11/2024 Adebayo Quinones Plan Of Treatment Next Appt Details Provider Name:Adebayo burr, 01/26/2025 10:00:00 AM, [address] [place], [address], Progress Notes * Andressa TRIPLETTDOB: [birth year] (33 yo F)Acc No.[id number]:11/11/2024 Patient: Stephanie Andressa MORRISSEY :1990 A ge:33 Y S ex:Female Address:[address] [place] [address], [phone] * true * Date: Generated for Printi ng/Faxing/eTransmitting on: 0 12/12/2024 07:01 PM EDT
--- OUTSIDE RECORDS SUMMARY | 2024-11-28 11:30 | XMS_ITS | Encounter Summary ---
Author Organization [facility] tem Address [id number] [address] [place] [address] Care Team Providers Care Public Space Attendant Name Role Phone Unavailable Primary Care Provider Unavailabl e Reason for Visit * Reason Comments GDM, med start Encounter Details Date Type Department Care Team (Late st Contact Info) Description 11/28/2024 11:30 AM EDT Office Visit Maternal- Medicine at [facility] [address] [place] [phone] Priscila Granados MD [address] [facility] 1st [place] [address] Insulin controlled gestational diabetes mellitus (GDM) in [...] No Have you been seen here at [facility] in a previous ? No Recent ER visits or hospitalizations? No Bring blood sugar log or meter with you today? (Please bring them with you for every visit at [facility]) Yes, Dexcom report Flu vaccine (Feb-June)? [...] TESTS AND ULTRASOUND REPORTS: Referral records and [facility] chart were reviewed Pertinent Ultrasound [...] CGM we will be reviewed weekly by [facility]. Status post diabetic education nutrition counseling at [facility] Detailed anatomy ultrasound scheduled for 12/11/2024 in [facility] Repeat growth ultrasound at 38 weeks gestation, through primary OB Recommend weekly testing for the remainder of , through primary OB Delivery recommendations : Recommend delivery at [id number] Discuss delivery if estimated weight is >4500g [...] developing diabetes later on. Follow up in [facility] in 2 weeks with provider visit DISPOSITION: At this point the patient is in complete care of her boot lace cutter machine. Patient does have ultrasound and office visit scheduled with us. Thank you for allowing me to participate in the care of Andressa Prasad. If there any questions please do not hesitate to contact us. Priscila Granados MD Maternal- Medicine [facility] [address] [facility] 1st [place] [address] This document was created with [employer] technology. Though I make every effort to review the dictation as it is transcribed, on occasion the spoken word can be misinterpreted by the technology leading to inappropriate words, phrases, or sentences. This note is addressed to the requesting provider as a consultation for clinical guidance. Specificmedical abbreviations are occasionally used and those are generally approved by the [place]?Board of?Obstetrics and?Gynecology?as well as?Ethan???s abbreviations. The above plan of care was based solely on the diagnoses for which a consultation was requested. ?More frequent testing may be indicated based on her other medical/obstetrical conditions. The management of other or medical conditions is beyond the scope of requested consultation and will c ontinue to be followed by the primary boot lace cutter machine or primary care provider. Note to patient: The 21st Century Cures Act makes medical notes like [...] Care Team (Late st Contact Info) Description 12/18/2024 8:00 AM EDT Telemedicine Maternal- Medicine at [facility] [address] [place] [address] Hanny Ware, AIR PRESS OPERATOR-REAL TIME OPERATOR [address] [place] [address] [phone] (work) documented as of this encounter Procedures Procedure [...]
--- OUTSIDE RECORDS SUMMARY | 2024-12-02 08:40 | XMS_ITS | Encounter Summary ---
Author Organization [facility] Address [address] [facility] [place] [address] Care Team Providers Care Senior Lead Project Manager Name Role Phone Adebayo Quinones MD Primary Care Provider + [phone] Reason for Visit * Reason Comments Routine Visit Encounter Details Date Type Department Care Team (Late st Contact Info) Description 12/02/2024 8:40 AM EDT Routine [facility] [address] [place] [address] Miguel Hannon DO [address] [facility] [address] [place], [facility] Third trimester ([facility]); 33 weeks gestation of ([facility]); Gestational diabetes mellitus (GDM), antepartum, gestational diabetes method of control unspecified ([facility]) Social History Tobacco Use Types Packs/Day [...] mg, Daily RT Blood Glucose Monitoring Suppl ([employer]Dog Glucometer) w/Device kit 1 kit, Does not [...] Grandfather James Lissa Hypertension Maternal Grandmother Sandy [place] Diabetes Paternal Grandfather Rito Marco Kidney disease [...] nursing note reviewed. Exam conducted with a administrative support coordinator present. Vitals: Estimated body mass index is 39.3 kg/m?? as calculated from the following: Height as of 01/16/24: 6'. Weight as of this encounter: 289 lb 12.8 oz. BP: 114/76 Patient's last menstrual period was 04/12/2024. ASSESSMENT & PLAN ICD-10-CM 1. Third trimester ([facility]) Z34.93 POCT urinalysis dipstick manually resulted 2. 33 weeks gestation of ([facility]) Z3A.33 POCT urinalysis dipstick manually resulted 3. Gestational diabetes mellitus (GDM), antepartum, gestational diabetes method of control unspecified ([facility]) O24.419 Continuous Glucose Sensor (Dexcom G7 Sensor) [facility]: Patient presents today for a routine obstetrics appointment. Patient is currently 33w3d . Patient states she is doing well but has complaints of being tired due to current . Patient has verbalizes frequent movement. labor precautions was discussed/given and patient was instructed to perform kick counts three times a day. Pt to have repeat anatomy scan at [facility] on 12/11. Discussed delivery between 37-39 [...] Description 12/16/2024 1:10 PM EDT Routine [facility] [address] [facility] [place] [place] [address] Maureen Mitchell PA [address] [place] [address] 12/23/2024 11:30 AM EDT Routine [facility] [address] [place] [address] Miguel Hannon DO [address] [facility] [address] [place] [address] 12/30/2024 8:30 AM EDT Routine [facility] [address] [place] [address] Maureen Mitchell PA [address] [place] [address] 01/06/2025 9:10 AM EDT Routine [facility] [address] [facility] [place] [place] [address] Miguel Hannon DO [address] [place] [address] documented as of this encounter Procedures Procedure Name Priority Date/Time Associated Diagnosis Comments POCT URINALYSIS DIPSTICK Routine 12/02/2024 9:04 AM EDT Third trimester ([facility]) 33 weeks gestation of ([facility]) documented in this encounter Results * (ABNORMAL) [...] this encounter Visit Diagnoses Diagnosis Third trimester ([facility]) state, incidental 33 weeks gestation of ([facility]) Gestational diabetes mellitus (GDM), antepartum, gestational diabetes method of control unspecified ([facility]) documented in this encounter Care Teams Senior Lead Project Manager Relationship Specialty Start Date End Date Adebayo Quinones MD [address] [place] [id number] PCP - General Family Medicine 11/19/23 documented as of this encounter
--- NOTE | 2024-12-12 19:00 | US_ITS ---
[address] [address] Patient Name: JAVID TRIPLETT MRN: [id number] date: 1990 Sex: F Assigned Patient Location: [facility] Current Patient Location: [facility] Accession/Order Number: [id number] Exam Date: 12/12/2024 19:06 Report Date: 12/12/2024 20:20 At the request of: KENN MCHUGH DO Procedure: US OB BPP w non-stress US OB BPP w non-stress 12/12/2024 7:55 PM SIGNS AND SYMPTOMS: ^01/17/2025 ^GESTATIONAL DAIBETES MELLITUS O24.419 PROTOCOL: Transabdominal sonographic imaging of the gravid uterus COMPARISON: None FINDINGS: heart rate: 147 bpm Amniotic fluid index: 13.08 cm. The deepest vertical pocket measures 5.72 cm. Estimated gestational age: 34 weeks and 6 days Biophysical profile: breathing movements: 2/2 Gross body movements: 2/2 tone: 2/2 Amniotic fluid volume: 2/2 US/US OB BPP w non-stress IMPRESSION: Biophysical profile: 11/21 Impression dictated by: Tutu Mcdermott M.D. 12/12/2024 8:20 PM Dictation Location: [employer] Electronically authenticated by: [id number] Y Date: 12/12/2024 20:20
--- OUTSIDE RECORDS SUMMARY | 2024-12-12 19:00 | XMS_ITS | Encounter Summary ---
Author Organization [facility] Address [address] [facility] [place] [address] Care Team Providers Care Business Initiatives Manager Name Role Phone Adebayo Quinones MD Primary Care Provider [phone] Encounter Details Date Type Department Care Team (Late Contact Info) Description 04/04/2024 Abstract [facility] [address] [place] [address] Miguel Hannon DO [address] [facility] [address] [place], [place] [address] Social History Tobacco Use Types Packs/Day Years [...] 1:10 PM EDT Routine [facility] [address] [facility] [place] [address] Maureen Mitchell PA [address] [place], [facility]11 12/23/2024 11:30 AM EDT Routine NOM[facility] [address] [place], [place] [address] [address] Miguel Hannon, DO [address] [facility] [place] [address] 12/30/2024 8:30 AM EDT Routine [facility] [place] [facility] [address] [place] [place] [phone] Maureen Mitchell PA [address] [facility] [place] [address] 01/06/2025 9:10 AM EDT Routine [facility] [place] [facility] [address] [place] [place] [address] Miguel Hannon, [address] [facility] [place] [address] documented as of this encounter Visit Diagnoses Not on filedocumented in this encounter Care Teams Business Initiatives Manager Relationship Specialty Start Date End Date Adebayo Quinones MD [address] [place] [address] PCP - General Family Medicine 11/19/23 documented as of this encounter
--- OUTSIDE RECORDS SUMMARY | 2024-12-12 19:00 | XMS_ITS | Encounter Summary ---
Author Organization [facility] Address [address] [facility] [place] [address] Care Team Providers Care Circular Knitter Name Role Phone Adebayo Quinones MD Primary Care Provider [phone] Encounter Details Date Type Department Care Team (Late Contact Info) Description 02/13/2024 Abstract [facility] [address] [place] [address] Miguel Hannon DO [address] [facility] [address] [place], [place] [address] Social History Tobacco Use Types Packs/Day Years [...] 1:10 PM EDT Routine [facility] [address] [place] [address] Maureen Mitchell PA [address] [place], [facility]11 12/23/2024 11:30 AM EDT Routine [facility] [address] [place], [place] [address] [address] Miguel Hannon, DO [address] [facility] [place] [address] 12/30/2024 8:30 AM EDT Routine [facility] [place] [facility] [address] [place] [phone] Maureen Mitchell PA [address] [facility] [facility] [place] [address] 01/06/2025 9:10 AM EDT Routine [facility] [place] [facility] [address] [place] [address] Miguel Hannon, [address] [facility] [facility] [place] [address] documented as of this encounter Visit Diagnoses Not on filedocumented in this encounter Care Teams Circular Knitter Relationship Specialty Start Date End Date Adebayo Quinones MD [address] [place] [address] PCP - General Family Medicine 11/19/23 documented as of this encounter
--- OUTSIDE RECORDS SUMMARY | 2024-12-12 19:01 | XMS_ITS | Encounter Summary ---
Author Organization [facility] Address [address] [place] [address] Care Team Providers Care Blood Bank Manager Name Role Phone Adebayo Quinones DO Primary Care Provider [phone] Encounter Details Date Type Department Care Team (Late st Contact Info) Description 10/22/2024 Orders Only [facility] [address] [place] [address] Janell Felton MD [address] [place] [address] Social History Tobacco Use Types [...] on filedocumented in this encounter Care Teams Blood Bank Manager Relationship Specialty Start Date End Date Adebayo Quinones DO [address] [place] [address] PCP - General 11/14/22 documented as of this encounter
--- OUTSIDE RECORDS SUMMARY | 2024-12-12 19:01 | XMS_ITS | Encounter Summary ---
Author Organization [facility] tem Address [facility] [id number] [address] [place] [address] Care Team Providers Care Metal Inspector Name Role Phone Unavailable Primary Care Provider Unavailabl e Encounter Details Date Type Department Care Team (Late st Contact Info) Description 12/09/2024 Telephone Maternal- Medicine at [facility] [address] [facility] [place] [address] Yojana Diehl, HALEY Social History [...] her insulin change for this week. Mary Scalnon reviewed her blood sugars and would like her to increase her lantus in the evening to 16 units. Pt verbalized understanding, we will pull her report again next week. documented in this encounter Plan of Treatment Upcoming Encounters Date Type Department Care Team (Late st Contact Info) Description 12/18/2024 8:00 AM EDT Telemedicine Maternal- Medicine at [facility] [address] [place] [address] Hanny Ware, TRAVELIFT OPERATOR-PARACHUTE MARKER [address] [place] [address] documented as of this encounter Visit Diagnoses Not on filedocumented in this encounter
--- OUTSIDE RECORDS SUMMARY | 2024-12-12 19:01 | XMS_ITS | Encounter Summary ---
Author Organization [facility] Address [address] [place] [address] Care Team Providers Care Billboard Erector Helper Name Role Phone Adebayo Quinones DO Primary Care Provider [phone] Encounter Details Date Type Department Care Team (Late st Contact Info) Description 08/21/2024 Orders Only [facility] [address] [place] [address] Janell Felton MD [address] [place] [address] Social History Tobacco Use Types [...] on filedocumented in this encounter Care Teams Billboard Erector Helper Relationship Specialty Start Date End Date Adebayo Quinones DO [address] [place] [address] PCP - General 11/14/22 documented as of this encounter
--- OUTSIDE RECORDS SUMMARY | 2024-12-12 19:01 | XMS_ITS | Encounter Summary ---
Author Organization [facility] Address [address] [facility] [place] [address] Care Team Providers Care Copy Chief Name Role Phone Adebayo Solares MD Primary Care Provider [phone] Encounter Details Date Type Department Care Team (Late st Contact Info) Description 12/06/2024 Clinisync Result Encounter NOMS External Department Unsolicited Kenn Hannon DO [address] [place], [place] [address] Social History Tobacco Use Types Packs/Day Years [...] PM EDT Routine [facility] [place] [facility] [address] [facility] [place] [address] Maureen Mitchell PA [address] [place], [place] [address] 12/23/2024 11:30 AM EDT Routine [facility] [place] [facility] [address] [facility] [place] [address] Kenn Hannon, DO [address] [facility] [place] [address] 12/30/2024 8:30 AM EDT Routine [facility] [place] [facility] [address] [place] [address] [place] [address] Maureen Mitchell PA [address] [facility] [place] [address] 01/06/2025 9:10 AM EDT Routine [facility] [address] [place] [address] [place] [address] Kenn Hannon, [address] [facility] [place] [address] documented as of this encounter Procedures Procedure Name Priority Date/Time Associated Diagnosis Comments US OB BPP W NON-STRESS 12/06/2024 5:01 PM EDT documented in this encounter Results * US OB BPP W NON-STRESS (12/06/2024 5:01 PM EDT) Anatomical Region Laterality Modality Other 12/06/2024 5:01 PM EDT Narrative 12/06/2024 8:16 PM EDT The [address] [address] Ultrasound Report Signed Patient: JAVID TRIPLETT MR#: [id number] : 1990 Acct:[id number] Age/Sex: 33 / F ADM Date: 12/05/24 Loc: US Attending Dr: Kenn Hannon D.O. Ordering Physician: Kenn Hannon D.O. Date of Service: 12/05/24 Procedure(s): US OB BPP w non-stress Accession Number(s): [id number] cc: Kenn Hannon D.O.; ADEBAYO SOLARES D.O. The [address] [address] Patient Name: JAVID TRIPLETT MRN: [facility]:[id number] date: 1990 Sex: F Assigned Patient Location: [facility] Current Patient Location: [facility] Accession/Order Number: [id number] Exam Date: 12/05/2024 19:12 Report Date: 12/06/2024 17:01 At the request of: KENN HANNON DO [...] Mcdermott M.D. 12/06/2024 5:01 PM Dictation Location: [place] [address] Electronically authenticated by: [id number] Y Date: 12/06/2024 17:01 Dictated By: Tutu Mcdermott M.D. Signed By: 12/06/242015 DD/ 00 TD/TT: Electrical Controls Assembler: Procedure Note Radiology, Radiologist, MD - 12/06/2024 The [place] [id number] Ultrasound Report Signed Patient: JAVID TRIPLETT DMR#: [id number] : 1990Acct:[id number] Age/Sex: 33 / FADM Date: 12/05/24 Loc: US Attending Dr: Kenn Hannon D.O. Ordering Physician: Kenn Hannon D.O. Date of Service: 12/05/24 Procedure(s): US OB BPP w non-stress Accession Number(s): [id number] cc: Kenn Hannon D.O.; ADEBAYO SOLARES D.O. [facility] [address] [place], [place] [address] Patient Name: JAVID TRIPLETT MRN: [id number] date: 1990 Sex: F Assigned Patient Location: [facility] Current Patient Location: [facility] Accession/Order Number: [id number] Exam Date: 12/05/2024 19:12 Report Date: 12/06/2024 17:01 At the request of: KENN HANNON DO Procedure: US OB BPP w non-stress US OB BPP w non-stress 12/05/2024 7:35 PM SIGNS AND SYMPTOMS: GESTATIONAL DIABETES MELLITUS O24.419 PROTOCOL: Transabdominal sonographic imaging of the gravid uterus COMPARISON: None FINDINGS: heart rate: 152 bpm Amniotic fluid index: 12.46 cm. The deepest vertical pocket measures 5.4cm. Estimated gestational age: 33 weeks and 6 days. Biophysical profile: breathing movements: 2/2 Gross body movements: 2/2 tone: 2/2 Amniotic fluid volume: 2/2 US/US OB BPP w non-stress IMPRESSION: Biophysical profile: 11/21 Impression dictated by: Tutu Mcdermott M.D. 12/06/2024 5:01 PM Dictation Location: [place] [address] Electronically authenticated by: [id number] Y Date: 7:01 Dictated By: Tutu Mcdermott M.D. Signed By:12/06/242015 DD/ 170 TD/TT: Electrical Controls Assembler: us Kenn Hannon DO [facility] Final Result documented in this encounter Visit Diagnoses Not on filedocumented in this encounter Care Teams Copy Chief Relationship Specialty Start Date End Date Adebayo Solares MD [address] [place] [address] PCP - General Family Medicine 11/19/23 documented as of this encounter
--- OUTSIDE RECORDS SUMMARY | 2024-12-12 19:01 | XMS_ITS | Encounter Summary ---
Author Organization [facility] Address [address] [facility] [place] [address] Care Team Providers Care Director Of Direct Marketing Name Role Phone Adebayo Quinones MD Primary Care Provider [phone] Encounter Details Date Type Department Care Team (Late Contact Info) Description 12/02/2024 Bamboo flowsheet [facility] [address] [facility] [place] [address] Miguel Hannon DO [address] [facility] [address] [place], [facility] Social History Tobacco Use Types Packs/Day Years [...] PM EDT Routine [facility] [address] [facility] [place] [address] Maureen Mitchell PA [address] [facility] [address] [place], [place] [address] 12/23/2024 11:30 AM EDT Routine [facility] [place] [facility] [address] [facility] [place] [address] Miguel Hannon, DO [address] [facility] [place] [address] 12/30/2024 8:30 AM EDT Routine [facility] [address] [place] [address] [place] [address] Maureen Mitchell PA [address] [place] [address] 01/06/2025 9:10 AM EDT Routine [facility] [address] [place] [address] [place] [address] Miguel Hannon, DO [address] [facility] [place] [address] documented as of this encounter Visit Diagnoses Not on filedocumented in this encounter Care Teams Director Of Direct Marketing Relationship Specialty Start Date End Date Adebayo Quinones MD [address] [place] [address] PCP - General Family Medicine 11/19/23 documented as of this encounter
--- OUTSIDE RECORDS SUMMARY | 2024-12-12 19:01 | XMS_ITS | Encounter Summary ---
Author Organization [facility] Address [address] [facility] [place] [address] Care Team Providers Care Victim Advocate Name Role Phone Adebayo Quinones MD Primary Care Provider [phone] Encounter Details Date Type Department Care Team (Late st Contact Info) Description 11/10/2024 Abstract [facility] [address] [place] [address] Miguel Hannon DO [address] [facility] [address] [place], [facility] Social History Tobacco Use Types Packs/Day Years [...] PM EDT Routine [facility] [address] [place] [address] Maureen Mitchell PA [address] [facility] [address] [place], [place] [address] 12/23/2024 11:30 AM EDT Routine [facility] [place] [facility] [address] [place] [address] Miguel Hannon, DO [address] [facility] [place] [address] 12/30/2024 8:30 AM EDT Routine [facility] [place] [facility] [address] [place] [address] Maureen Mitchell PA [address] [facility] [address] [place], [place] [address] 01/06/2025 9:10 AM EDT Routine [facility] [address] [place] [address] [place] [address] Miguel Hannon, DO [address] [facility] [address] [place], [facility] documented as of this encounter Visit Diagnoses Not on filedocumented in this encounter Care Teams Victim Advocate Relationship Specialty Start Date End Date Adebayo Quinones MD [address] [place] [address] PCP - General Family Medicine 11/19/23 documented as of this encounter
--- OUTSIDE RECORDS SUMMARY | 2024-12-12 19:01 | XMS_ITS | Encounter Summary ---
Author Organization [facility] Address [address] [facility] [place] [address] Care Team Providers Care Tunnel Heading Inspector Name Role Phone Adebayo Quinones MD Primary Care Provider [phone] Encounter Details Date Type Department Care Team (Late st Contact Info) Description 11/18/2024 Telephone [facility] [place] [address] Katarzyna Malagon LPN Social History Tobacco [...] 11/18/2024 9:26 AM EDT Please refer to [facility] for completion of anatomy scan, RVOT and LVOT and lips not evaluated. documented in this encounter Plan of Treatment Upcoming Encounters Date Type Department Care Team (Late st Contact Info) Description 12/16/2024 1:10 PM EDT Routine [facility] [address] [place] [address] Maureen Mitchell, PA [address] [facility] [place] [address] 12/23/2024 11:30 AM EDT Routine [facility] [place] [facility] [address] [place] [address] [place] [address] Miguel Hannon, DO [address] [facility] [address] [place], [place] [address] 12/30/2024 8:30 AM EDT Routine [facility] [place] [facility] [address] [place] [address] [place] [address] Maureen Mitchell, PA [address] [facility] [place] [address] 01/06/2025 9:10 AM EDT Routine [facility] [address] [place] [address] [place] [address] Miguel Hannon, DO [address] [facility] [address] [place], [facility]11 documented as of this encounter Visit Diagnoses Not on filedocumented in this encounter Care Teams Tunnel Heading Inspector Relationship Specialty Start Date End Date Adebayo Quinones MD [address] [place] [address] PCP - General Family Medicine 11/19/23 documented as of this encounter
--- OUTSIDE RECORDS SUMMARY | 2024-12-12 19:01 | XMS_ITS | Patient Health Record ---
Author Organization [facility] in [place] Address [address] [place] [address] Care Team Providers Care Crisis Worker Name Role Phone Adebayo Quionnes Primary Care Provider Allergies Allergen (clinical drug [...] day Active PNV Active Vitamin D (Ergocalciferol) 62058 UNIT 1 capsule Orally qweekly for 30 days 06/18/2023 Active Meclizine HCl Not-Ta joy Immunizations Vaccine Route Administration Date Status Comme nts Flu, Fluzone (02940) 6 mos+, single-dose syringe/vial (3279-0309) Unknown 02/12/2023 Administered Social History Tobacco Use: Social History Observation Description Date Details (start date - stop date) Never Smoker NA - NA Tobacco Use/Smoking Question Answer Notes Patient 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 Alcohol Screen (Audit-C) Question Answer Notes Did you have a drink containing alcohol in the p ast year? No Points 0 Interpretation Negative Section Notes: INDEPENDENT FREIGHT AGENT INDEPENDENT FREIGHT AGENT INDEPENDENT FREIGHT AGENT INDEPENDENT FREIGHT AGENT Problems Problem Type SNOMED Code ICD Code Onset Dates Problem Status W/U Status Risk Notes Problem 93746026 Vitamin D deficiency, unspecified (E55.9) Active confirmed Problem 84328037901926 Morbid (severe) obesity due to excess calories (E66.01) Active confirmed Problem 364695265 Obesity, unspecified (E66.9) Active confirmed Problem 417587965 Mixed hyperlipidemia (E78.2) Active confirmed Problem 8136830 Female infertili ty, unspecified (N97.9) Active confirmed Problem 67563477 CAROLA (obstructive sleep apnea) (G47.33) Active confirmed Problem 568106991 Gastroesophageal reflux disease without esophagitis (K21.9) Active confirmed Problem 41454988 Sleep walking (F51.3) Active confirmed Problem 719450123 Insomnia, unspecified type (G47.00) Active confirmed Problem 04135540 Night terrors (F51.4) Active confirmed Problem 400562522 Body mass index [BMI] 36.0-36.9, adult (Z68.36) Active confirmed Problem 906701662 Body mass index [BMI] 38.0-38.9, adult (Z68.38) Active confirmed Encounters Encounter Location Date Provider Diagnosis [facility] [address] [place] [address] 11/11/2024 Adebayo Quinones Plan Of Treatment Pending [...] Name:Adebayo burr, 01/26/2025 10:00:00 AM, [address] [place], [address], Insurance Providers Payer Name Payer Address Payer Phone Subscriber Number Group Number Insured Name Patient Relationship to Insured Coverage Start Date Coverage End Date ANTHEM ACCESS PPO PLUS LOCAL PLAN [address] [place] [address] [id number] Andressa Prasad Self - patient is the insured 4 Medical (General) History Medical History History ICD Code prediabetes B12 deficiency hyperlipidemia gerd carola
--- OUTSIDE RECORDS SUMMARY | 2024-12-12 19:01 | XMS_ITS | Encounter Summary ---
Author Organization [facility] Address [address] [facility] [place] [address] Care Team Providers Care Marine Service Operator Name Role Phone Adebayo Quinones MD Primary Care Provider + [phone] Encounter Details Date Type Department Care Team (Late st Contact Info) Description 12/12/2024 Abstract [facility] HERNANDEZ [address] [place] [address] Miguel Hannon DO [address] [place], [facility] Social History Tobacco Use Types Packs/Day [...] PM EDT Routine [facility] Jairo HERNANDEZ [address] [place] [address] Maureen Mitchell PA [address] [place], [place] [id number] 12/23/2024 11:30 AM EDT Routine [facility] OBGYN [address] [place] [address] Miguel Hannon, DO [address] [place] [address] 12/30/2024 8:30 AM EDT Routine [facility] [address] [place] [address] Maureen Mitchell PA [address] [place], [place] [address] 01/06/2025 9:10 AM EDT Routine [facility] [address] [place] [address] [place] [address] Miguel Hannon, DO [address] [place], [facility] documented as of this encounter Visit Diagnoses Not on filedocumented in this encounter Care Teams Marine Service Operator Relationship Specialty Start Date End Date Adebayo Quinones MD [address] [place] [address] PCP - General Family Medicine 11/19/23 documented as of this encounter
--- OUTSIDE RECORDS SUMMARY | 2024-12-12 19:01 | XMS_ITS | Clinical Summary ---
Author Organization [facility] Address [address], [address] [place] [address] Care Team Providers Care Shower Doors And Panels Fabricator Name Role Phone Unavailable Primary Care Provider [...]
--- OUTSIDE RECORDS SUMMARY | 2024-12-12 19:01 | XMS_ITS | Encounter Summary ---
Author Organization [facility] tem Address [id number] [address] [place] [address] Care Team Providers Care Hybrid Powertrain Development Engineer Name Role Phone Unavailable Primary Care [...] 8:00 AM EDT Telemedicine Maternal- Medicine at [facility] [address] [place] [address] Hanny Ware, COLLOID MILL OPERATOR-FERRIS WHEEL ATTENDANT [address] [place] [address] documented as of this encounter Visit Diagnoses Not on filedocumented in this encounter
--- OUTSIDE RECORDS SUMMARY | 2024-12-12 19:01 | XMS_ITS | Encounter Summary ---
Author Organization [facility] tem Address [id number] [address] [place] [address] Care Team Providers Care Fountain Pen Nibs Inspector Name Role Phone Unavailable Primary Care Provider Unavailabl e Encounter Details Date Type Department Care Team (Late st Contact Info) Description 12/09/2024 Orders Only [facility] - Labor [address] [place] [address] Mary Scanlon, PAEveC [address] [address] Social History Tobacco Use Types Packs/Day Years [...] EDT Telemedicine Maternal- Medicine at [facility] [address] [place] [address] Hanny Ware, CROSS COUNTRY COACH-FABRICATION AND LAYOUT CRAFTSMAN [address] [place] [address] documented as of this encounter Visit Diagnoses Not on filedocumented in this encounter
--- OUTSIDE RECORDS SUMMARY | 2024-12-12 19:01 | XMS_ITS | Encounter Summary ---
Author Organization [facility] tem Address [id number] [address] [place] [address] Care Team Providers Care Vice President For Instruction Name Role Phone Unavailable Primary Care Provider Unavailabl e Encounter Details Date Type Department Care Team (Late Contact Info) Description 11/24/2024 Orders Only Maternal- Medicine at [facility] [address] [place] [address] Ref Prov, [place] [address] Social History Tobacco Use Types Packs/Day Years [...] 8:00 AM EDT Telemedicine Maternal- Medicine at [facility] [address] [place] [address] Hanny Ware, DEPUTY CLERK-CLINICAL RESEARCH COORDINATOR [address] [place], [place] [address] documented as of this encounter Visit Diagnoses Not on filedocumented in this encounter
--- OUTSIDE RECORDS SUMMARY | 2024-12-12 19:01 | XMS_ITS | Encounter Summary ---
Author Organization [facility] Address [address], [address] [place] [address] Care Team Providers Care Vehicle Check In Clerk Name Role Phone Unavailable Primary Care Provider Unavailabl e Reason for Referral * Other (Routine) - Closed Specialty Diagnoses / Procedures Referred By Contac t Referred To Contact Cardiology Diagnoses Palpitations Syncope and collapse Procedures Tilt Table Test Clarence Wolf APRN - CNP Phone: tel: fax: Referral ID Status Reason Start Date Expiration Date Visits Re quested Visits Authorized [id number] Closed 11/16/2022 11/16/2023 1 1 Encounter Details Date Type Department Care Team (Latest Contact Info) Description 11/16/2022 Transcribe Orders [facility] [address] [place] [address] Clarence Wolf APRN - CNP [address] [place] [address] Palpitations (Primary Dx); Syncope and collapse Social [...]
--- OUTSIDE RECORDS SUMMARY | 2024-12-12 19:01 | XMS_ITS | Encounter Summary ---
Author Organization [facility] tem Address [id number] [address] [place] [address] Care Team Providers Care City Planner Name Role Phone Unavailable Primary Care Provider Unavailabl e Encounter Details Date Type Department Care Team (Latest Contact Info) Description 12/11/2024 Travel Social History Tobacco Use Types Packs/Day [...] 8:00 AM EDT Telemedicine Maternal- Medicine at [facility] [address] [place] [address] Hanny Ware, ROLLOFF DRIVER-GATE WATCH [address] [place] [address] documented as of this encounter Visit Diagnoses Not on filedocumented in this encounter
--- OUTSIDE RECORDS SUMMARY | 2024-12-12 19:01 | XMS_ITS | Encounter Summary ---
Author Organization [facility] Address [address] [facility] [place] [address] Care Team Providers Care Concierge Manager Name Role Phone Adebayo Quinones MD Primary Care Provider [phone] Encounter Details Date Type Department Care Team (Late Contact Info) Description 12/13/2023 Abstract [facility] HERNANDEZ [address] [place] [address] Miguel Hannon DO [address] [facility] [facility] [address] [place], [place] [address] Social History Tobacco Use Types Packs/Day Years [...] PM EDT Routine [facility] HERNANDEZ [address] [facility] [place] [address] Maureen Mitchell PA [address] [place], [facility] 12/23/2024 11:30 AM EDT Routine NOM[facility] HERNANDEZ [address] [place], [place] [address] [address] Miguel Hannon, DO [address] [facility] [place] [address] 12/30/2024 8:30 AM EDT Routine [facility] [place] [facility] [address] [place] [address] Maureen Mitchell PA [address] [facility] [place] [address] 01/06/2025 9:10 AM EDT Routine [facility] [address] [place] [address] Miguel Hannno, [address] [facility] [place] [address] documented as of this encounter Visit Diagnoses Not on filedocumented in this encounter Care Teams Concierge Manager Relationship Specialty Start Date End Date Adebayo Quinones MD [address] [place] [address] PCP - General Family Medicine 11/19/23 documented as of this encounter
--- OUTSIDE RECORDS SUMMARY | 2024-12-12 19:01 | XMS_ITS | Encounter Summary ---
Author Organization [facility] Address [address] [place] [address] Care Team Providers Care Executive Administrative Assistant Name Role Phone Adebayo Quinones DO Primary Care Provider [phone] Encounter Details Date Type Department Care Team (Late st Contact Info) Description 11/12/2024 Orders Only [facility] [address] [place] [address] Yoseph Mcintosh MD [address] [place] [address] Social History Tobacco Use Types [...] IMPLANTABLE CARDIAC DEVICE CA OCEDURES Final Result documented in this encounter Visit Diagnoses Not on filedocumented in this encounter Care Teams Executive Administrative Assistant Relationship Specialty Start Date End Date Adebayo Quinones DO [address] [place] [address] PCP - General 11/14/22 documented as of this encounter
--- OUTSIDE RECORDS SUMMARY | 2024-12-12 19:01 | XMS_ITS | Encounter Summary ---
Author Organization [facility] Address [address] [facility] [place] [address] Care Team Providers Care Security Screener Name Role Phone Adebayo Quinones MD Primary Care Provider [phone] Encounter Details Date Type Department Care Team (Late Contact Info) Description 12/25/2023 Abstract [facility] HERNANDEZ [address] [facility] [place] [address] Miguel Hannon DO [address] [facility] [address] [place], [place] [address] Social History Tobacco Use Types Packs/Day Years [...] 1:10 PM EDT Routine NOM[facility] HERNANDEZ [address] [place] [address] Maureen Mitchell PA [address] [place], [facility]11 12/23/2024 11:30 AM EDT Routine NOM[facility] HERNANDEZ [address] [place], [place] [address] [address] Miguel Hannon, DO [address] [facility] [place] [address] 12/30/2024 8:30 AM EDT Routine [facility] [place] [facility] [address] [facility] [place] [address] Maureen Mitchell PA [address] [facility] [place] [address] 01/06/2025 9:10 AM EDT Routine [facility] [address] [facility] [place] [address] Miguel Hannon, [address] [facility] [place] [address] documented as of this encounter Visit Diagnoses Not on filedocumented in this encounter Care Teams Security Screener Relationship Specialty Start Date End Date Adebayo Quinones MD [address] [place] [address] PCP - General Family Medicine 11/19/23 documented as of this encounter
--- OUTSIDE RECORDS SUMMARY | 2024-12-12 19:01 | XMS_ITS | Encounter Summary ---
Author Organization [facility] Address [address] [facility] [place] [address] Care Team Providers Care Lace Tearing Supervisor Name Role Phone Adebayo Quinones MD Primary Care Provider [phone] Encounter Details Date Type Department Care Team (Late st Contact Info) Description 11/20/2024 Abstract [facility] Jairo HENRANDEZ [address] [facility] [place] [address] Miguel Hannon DO [address] [facility] [address] [place], [facility] Social [...] PM EDT Routine [facility] Jairo HERNANDEZ [address] [place] [address] Maureen Mitchell PA [address] [facility] [address] [place], [place] [address] 12/23/2024 11:30 AM EDT Routine [facility] [address] [facility] [place] [address] Miguel Hannon, DO [address] [facility] [place] [address] 12/30/2024 8:30 AM EDT Routine [facility] [address] [facility] [place] [address] Maureen Mitchell PA [address] [facility] [address] [place], [place] [address] 01/06/2025 9:10 AM EDT Routine [facility] [address] [place] [address] [place] [address] Miguel Hannon, DO [address] [facility] [facility] [address] [place], [facility] documented as of this encounter Visit Diagnoses Not on filedocumented in this encounter Care Teams Lace Tearing Supervisor Relationship Specialty Start Date End Date Adebayo Quinones MD [address] [place] [address] PCP - General Family Medicine 11/19/23 documented as of this encounter
--- OUTSIDE RECORDS SUMMARY | 2024-12-12 19:01 | XMS_ITS | Encounter Summary ---
Author Organization [facility] [employer] [facility] tem Address [id number] [address] [place] [address] Care Team Providers Care Choker Setter Name Role Phone Unavailable Primary Care Provider Unavailabl e Encounter Details Date Type Department Care Team (Late st Contact Info) Description 12/03/2024 Orders Only Maternal- Medicine at [facility] [place] [facility] [address] [place] [address] Hanny Ware, BARBED WIRE MACHINE OPERATOR-MACHINE CLOTHING WORKER [address] [place] [address] Social History Tobacco Use Types Packs/Day Years [...] 8:00 AM EDT Telemedicine Maternal- Medicine at [facility] [place] [facility] [address] [place] [address] Hanny Ware, BARBED WIRE MACHINE OPERATOR-MACHINE CLOTHING WORKER [address] [place] [address] documented as of this encounter Visit Diagnoses Not on filedocumented in this encounter
--- OUTSIDE RECORDS SUMMARY | 2024-12-12 19:01 | XMS_ITS | Clinical Summary ---
Author Organization [facility] Address [address] [place] [address] Care Team Providers Care Television Analyzer Name Role Phone Adebayo Quinones DO Primary Care Provider Allergies No known active allergies Medications omeprazole [...] Description 11/24/2024 3:30 PM EDT Ancillary Procedure [facility] [address] [place] [address] Awareness of heartbeats 11/12/2024 Orders Only [facility] [address] [facility] [place] [address] Yoseph Mcitnosh MD 10/22/2024 1:50 AM EDT Ancillary Procedure [facility] [address] [facility] [place] [address] Awareness of heartbeats 10/22/2024 Orders Only [facility] [address] [place] [address] Janell Felton MD 10/21/2024 10:00 AM EDT Office Visit [facility] Heart at [facility] [address] [place] [address] Yoseph Mcintosh MD Palpitations (Primary Dx) from [...] this topic Medical Devices Implanted Type Area Coding Tech Device Identifier Shelf Expiration Date Model / Serial / Lot Monitor,Cardi ac,Lux,Dxii+I - [id number] - [id number] Implanted:Qty : 1 on 06/18/2023 by Yoseph Mcintosh MD at [facility] Implantable Loop Recorder Left: Chest Data Elite 11/26/2024 [id number] / [id number] / Procedures Procedure Name Priority Date/Time Associated [...] Yoseph Mcintosh MD CV IMPLANTABLE CARDIAC DEVICE [place] OCEDURES Final Result CPACS * Cardiac device check - Remote loop recorder (ILR) (11/12/2024 12:00 AM EDT) Only the most recent of2 resultswithin the time period is included. Anatomical Region Laterality Modality Other 11/12/2024 us Yoseph Mcintosh MD CV IMPLANTABLE CARDIAC DEVICE [place] OCEDURES Final Result from Last 3 Months Insurance Care Teams Television Analyzer Relationship Specialty Start Date End Date Adebayo Quinones DO [address] [place] [address] PCP - General 11/14/22
--- OUTSIDE RECORDS SUMMARY | 2024-12-12 19:01 | XMS_ITS | Encounter Summary ---
Author Organization [facility] Address [address] [facility] [place] [address] Care Team Providers Care Sap Sd Analyst Name Role Phone Adebayo Solares MD Primary Care Provider [phone] Encounter Details Date Type Department Care Team (Late st Contact Info) Description 11/27/2024 Clinisync Result Encounter NOMS External Department Unsolicited Knen Hannon DO [address] [place], [place] [phone] Social History Tobacco Use Types Packs/Day Years [...] PM EDT Routine [facility] Jairo HERNANDEZ [address] [facility] [place] [address] Maureen Mitchell PA [address] [place], [place] [address] 12/23/2024 11:30 AM EDT Routine [facility] HERNANDEZ [address] [facility] [place] [address] Kenn Hannon, DO [address] [facility] [place] [address] 12/30/2024 8:30 AM EDT Routine [facility] [address] [place] [address] [place] [address] Maureen Mitchell PA [address] [facility] [place] [address] 01/06/2025 9:10 AM EDT Routine [facility] [address] [place] [address] [place] [address] Kenn Hannon, DO [address] [facility] [place] [address] documented as of this encounter Procedures Procedure Name Priority Date/Time Associated Diagnosis Comments US OB BPP W NON-STRESS 11/27/2024 11:40 PM EDT documented in this encounter Results * US OB BPP W NON-STRESS (11/27/2024 11:40 PM EDT) Anatomical Region Laterality Modality Other 11/27/2024 11:4 0 PM EDT Narrative 11/27/2024 11:42 PM EDT The [address] [address] Ultrasound Report Signed Patient: JAVID TRIPLETT MR#: [id number] : 1990 Acct:[id number] Age/Sex: 33 / F ADM Date: 11/27/24 Loc: US Attending Dr: Kenn Hannon D.O. Ordering Physician: Kenn Hannon D.O. Date of Service: 11/27/24 Procedure(s): US OB BPP w non-stress Accession Number(s): [id number] cc: Kenn Hannon D.O.; ADEBAYO SOLARES D.O. [address] [address] Patient Name: JAVID TRIPLETT MRN: [facility]:[id number] date: 1990 Sex: F Assigned Patient Location: [facility] Current Patient Location: Accession/Order Number: [id number] Exam Date: 11/27/2024 23:39 Report Date: 11/27/2024 [...] Deutsch M.D. 11/27/2024 11:40 PM Dictation Location: [employer] Electronically authenticated by: [id number] Y Date: 11/27/2024 23:40 Dictated By: Sergo Deutsch D.O. Signed By: 11/27/24 234 DD/ 39 TD/TT: Rn Icu: Procedure Note Radiology, Radiologist, MD - 11/27/2024 [place] [address] Ultrasound Report Signed Patient: JAVID TRIPLETT DMR#: [id number] : 1990Acct:[id number] Age/Sex: 33 / FADM Date: 11/27/24 Loc: US Attending Dr: Kenn Hannon D.O. Ordering Physician: Kenn Hannon D.O. Date of Service: 11/27/24 Procedure(s): US OB BPP w non-stress Accession Number(s): [id number] cc: Kenn Hannon D.O.; ADEBAYO SOLARES D.O. [address] [address] Patient Name: JAVID TRIPLETT MRN: [id number] date: 1990 Sex: F Assigned Patient Location: [facility] Current Patient Location: Accession/Order Number: [id number] Exam Date: 11/27/2024 23:39 Report Date: 11/27/2024 [...] Deutsch M.D. 11/27/2024 11:40 PM Dictation Location: [place] [address] Electronically authenticated by: [id number] Y Date: 3:40 Dictated By: Sergo Deutsch D.O. Signed By:11/27/242 DD/ 39 TD/TT: Rn Icu: us Kenn Hannon DO [facility] Final Result documented in this encounter Visit Diagnoses Not on filedocumented in this encounter Care Teams Sap Sd Analyst Relationship Specialty Start Date End Date Adebayo Solares MD [address] [place] [address] PCP - General Family Medicine 11/19/23 documented as of this encounter
--- OUTSIDE RECORDS SUMMARY | 2024-12-12 19:01 | XMS_ITS | Encounter Summary ---
Author Organization [facility] [employer] [facility] tem Address [id number] [address] [place] [address] Care Team Providers Care Training Instructor Name Role Phone Unavailable Primary Care Provider Unavailabl e Encounter Details Date Type Department Care Team (Late st Contact Info) Description 12/03/2024 Telephone Maternal- Medicine at [facility] [address] [facility] [place] [address] Juli Quezada LD Social History [...] units each evening. Will send patient a Keep[employer] message as well and asked patient to confirm with us via phone or ZIPDIGShart that she received the dose change information. documented in this encounter Plan of Treatment Upcoming Encounters Date Type Department Care Team (Late st Contact Info) Description 12/18/2024 8:00 AM EDT Telemedicine Maternal- Medicine at [facility] [address] [place] [address] Hanny Ware, AGRICULTURAL RESEARCH ENGINEER-INTERMODAL DISPATCHER [address] [place] [address] documented as of this encounter Visit Diagnoses Not on filedocumented in this encounter
--- OUTSIDE RECORDS SUMMARY | 2024-12-12 19:02 | XMS_ITS | CCD ---
Author Organization [facility] CliniSyor Care Team Providers Care Mailer Apprentice Name Role Phone BECK, DR ADEBAYO Oropeza [...] Attending Unavailable SolaresAdebayo Primary Care Unavailable Jaret COLLEGE PHYSICS INSTRUCTOR-ORGANIZATIONAL DEVELOPMENT MANAGERIsabella Attending Unavaila ble Solares, Adebayo Primary Care Unavailable Jaret COLLEGE PHYSICS INSTRUCTOR-ORGANIZATIONAL DEVELOPMENT MANAGERIsabella Attending Unavaila ble SolaresAdebayo Primary Care Unavailable Solares, Adebayo Consulting Unavailable SolaresAdebayo Referring Unavailable EMEKA HERNANDEZ Referring Unavailable Solares Adebayo GOYAL Primary Care Provider Unavailable Primary Care Provider UnavailMARIANA Basilio Attending Unavailable TRENT, MARIANA Referring Unavailable RTENT, MARIANA Referring Unavailable TRENT, MARIANA Referring Unavailable TRENT, MARIANA Referring Unavailable CHALINO, VIRAL Referring Unavailable TRENT, MARIANA Referring Unavailable TRENT, MARIANA Referring Unavailable CHALINO, VIRAL Referring Unavailable TRENT, MARIANA Referring Unavailable TRENT, MARIANA Referring Unavailable CHALINO, VIRAL Referring Unavailable TRENTMARIANA Tan Attending Unavailable RIDDHIMIGUEL R Referring Unavailable NAOMIE HUBER Attending Unavailable SAUL GRANADOS Attending Unavailable RIDDHI, MIGUEL R Referring Unavailable RIDDHI, MIGUEL Attending Unavailable TRAY, MAUREEN Attending Unavailable RIDDHI, MIGUEL Attending Unavailable TRAY, MAUREEN Attending Unavailable RIDDHI, MIGUEL Attending Unavailable RIDDHI, MIGUEL Attending Unavailable RIDDHI, MIGUEL Attending Unavailable RIDDHI, MIGUEL Attending Unavailable RIDDHI, MIGUEL Attending Unavailable TRAY, MAUREEN Attending Unavailable Allergies Allergy Classification Reported [...] ml insulin glargine 100 unt/ml pen injector (10 sources) Insulin Analog Start: 12-09-2024 insulin glargine (LANTUS SOLOSTAR U-100 INSULIN) 100 unit/mL (3 mL) insulin pen Inject 16 units of insulin in the evening, subcutaneously, prime 2 units 15 mL 12/09/2024 Active Start: 12-03-2024 End: 12-09-2024 insulin glargine (LANTUS PADMINI OSTAR U-100 INSULIN) 100 unit/mL (3 mL) insulin pen Inject 12 units of insulin in the evening, subcutaneously, prime 2 units 15 mL 12/03/2024 12/09/2024 Discontinued Start: 11-28-2024 inject 100 [IU] by s [...] antepartum, gestational diabetes method of control unspecified ([facility]) , Elevated glucose tolerance test Apply 1 [...] Active PNV no.153/FA/om3/dha/epa/fi sh ( GUMMIES ORAL) (10 sources) take 2 doses by mouth in [...] US OB BPP W NON-STRESS on 12-06-2024 [place] [address] Ultrasound Report Signed Patient: AJVID PRASAD MR#: [id number] : 1990 Acct:[id number] Age/Sex: 33 / F ADM Date: 12/05/24 Loc: US Attending Dr: Miguel Hannon D.O. Ordering Physician: Miguel Hannon D.O. Date of Service: 12/05/24 Procedure(s): US OB BPP w non-stress Accession Number(s): [id number] cc: Miguel Hannon D.O.; ADEBAYO SOLARES D.O. [place] [id number] Patient Name: JAVID PRASAD MRN: [id number] date: 1990 Sex: F Assigned Patient Location: [facility] Current Patient Location: [facility] Accession/Order Number: [id number] Exam Date: 12/05/2024 19:12 Report Date: 12/06/2024 [...] Mcdermott M.D. 12/06/2024 5:01 PM Dictation Location: [place] [address] Electronically authenticated by: [id number] Y Date: 12/06/2024 17:01 Dictated By: Tutu Mcdermott M.D. Signed By: 12/06/242015 DD/ 00 TD/TT: Director Of Operations For Therapy: [facility] Radiology, Radiologist, MD - 12/06/2024 [place] [address] Ultrasound Report Signed Patient: JAVID PRASAD MR#: [id number] : 1990 Acct:[id number] Age/Sex: 33 / F ADM Date: 12/05/24 Loc: US Attending Dr: Miguel Hannon D.O. Ordering Physician: Miguel Hannon D.O. Date of Service: 12/05/24 Procedure(s): US OB BPP w non-stress Accession Number(s): [id number] cc: Miguel Hannon D.O.; ADEBAYO SOLARES D.O. The [address] [address] Patient Name: JAVID PRASAD MRN: [facility]:[id number] date: 1990 Sex: F Assigned Patient Location: [facility] Current Patient Location: [facility] Accession/Order Number: [id number] Exam Date: 12/05/2024 19:12 Report Date: 12/06/2024 [...] Mcdermott M.D. 12/06/2024 5:01 PM Dictation Location: [employer] Electronically authenticated by: [id number] Y Date: 12/06/2024 17:01 Dictated By: Tutu Mcdermott M.D. Signed By: 12/06/242015 DD/ 00 TD/TT: Director Of Operations For Therapy: [facility] Radiology Study observation (narrative) [facility] US OB BPP W NON-STRESS Ordered By: Radiologist Radiology on 12-06-2024 [facility] [employer] Work Phone: Urinalysis macro (dipstick) panel (U)on 12-02-2024 Bilirubin, UA Negative Negative - 4(70) +++ mg/dL [facility] Blood, UA Negative Negative - 50 Osmin/mcL [facility] Clarity, UA Clear [facility] re Color, UA Yellow [facility] [employer] Glucose, UA Negative Negative - 1999(110) ++++ mg/dL [facility] Interpretation and review of laboratory results Abnormal [facility] Ketones, UA Negative Negative - 160(16) ++++ mg/dL [facility] Leukocytes, UA Positive Negative - 500+++ Oumou/mcL [facility] Nitrite, UA Negative Negative - Positive [facility] pH, UA 6 5 - 9 [facility] e Protein, UA Negative Negative - 1999(20) ++++ mg/dL [facility] Spec Grav, UA 1.025 1 - 1.03 [facility] Urobilinogen, UA 1.0 0.2 - 12 mg/dL [facility] POCT Hemoglobin A1con 2024 HbA1c (Bld) [Mass fraction] 5.7 % 4 - 7 % [facility] US OB BPP W NON-STRESS on 11-27-2024 [place] [address] Ultrasound Report Signed Patient: JAVID PRASAD MR#: [id number] : 1990 Acct:[id number] Age/Sex: 33 / F ADM Date: 11/27/24 Loc: US Attending Dr: Miguel Hannon D.O. Ordering Physician: Miguel Hannon D.O. Date of Service: 11/27/24 Procedure(s): US OB BPP w non-stress Accession Number(s): [id number] cc: Miguel Hannon D.O.; ADEBAYO SOLARES D.O. [place] [address] Patient Name: JAVID PRASAD MRN: [id number] date: 1990 Sex: F Assigned Patient Location: [facility] Current Patient Location: Accession/Order Number: [id number] Exam Date: 11/27/2024 23:39 Report Date: 11/27/2024 [...] 11/27/2024 11:40 PM Dictation Location: [place] [address] Electronically authenticated by: [id number] Y Date: 11/27/2024 23:40 Dictated By: Sergo Deutsch D.O. Signed By: 11/27/242341 DD/ 39 TD/TT: Director Of Operations For Therapy: [facility] Radiology, Radiologist, - 11/27/2024 [place] [address] Ultrasound Report Signed Patient: JAVID PRASAD MR#: [id number] : 1990 Acct:[id number] Age/Sex: 33 / F ADM Date: 11/27/24 Loc: US Attending Dr: Miguel Hannon D.O. Ordering Physician: Miguel Hannon D.O. Date of Service: 11/27/24 Procedure(s): US OB BPP w non-stress Accession Number(s): [id number] cc: Miguel Hannon D.O.; ADEBAYO SOLARES D.O. The [place] [address] Patient Name: JAVID PRASAD MRN: [facility]:[id number] date: 1990 Sex: F Assigned Patient Location: [facility] Current Patient Location: Accession/Order Number: [id number] Exam Date: 11/27/2024 23:39 Report Date: 11/27/2024 [...] Deutsch M.D. 11/27/2024 11:40 PM Dictation Location: [employer] Electronically authenticated by: [id number] Y Date: 11/27/2024 23:40 Dictated By: Sergo Deutsch D.O. Signed By: 11/27/242341 DD/ 39 TD/TT: Director Of Operations For Therapy: [facility] Radiology Study observation (narrative) [facility] US OB BPP W NON-STRESS Ordered By: Radiologist Radiology on 11-27-2024 [facility] [employer] Work Phone: Urinalysis macro (dipstick) panel (U)on 11-18-2024 Bilirubin, UA Negative Negative - 4(70) +++ mg/dL [facility] Blood, UA Negative Negative - 50 Osmin/mcL [facility] Clarity, UA Clear [facility] re Color, UA Light Yellow [facility] are Glucose, UA Trace Negative - 1999(110) ++++ mg/dL [facility] Interpretation and review of laboratory results Normal [facility] Ketones, UA Negative Negative - 160(16) ++++ mg/dL [facility] Leukocytes, UA Negative Negative - 500+++ Oumou/mcL [facility] Nitrite, UA Negative Negative - Positive [facility] pH, UA 6 5 - 9 [facility] Protein, UA Negative Negative - 1999(20) ++++ mg/dL [facility] Spec Grav, UA 1.015 1 - 1.03 [facility] Urobilinogen, UA 4.0 0.2 - 12 mg/dL [facility] US OB INCOMPLETE ANATOMYon 0 11-14-[address] [address] Ultrasound Report Signed Patient: JAVID PRASAD MR#: [id number] : 1990 Acct:[id number] Age/Sex: 33 / F ADM Date: 11/13/24 Loc: US Attending Dr: Miguel Hannon D.O. Ordering Physician: Miguel Hannon D.O. Date of Service: 11/13/24 Procedure(s): US OB incomplete anatomy Accession Number(s): [id number] cc: Miguel Hannon D.O.; ADEBAYO SOLARES D.O. [address] [address] Patient Name: JAVID PRASAD MRN: [id number] date: 1990 Sex: F Assigned Patient Location: US Current Patient Location: Accession/Order Number: [id number] Exam Date: 11/14/2024 09:56 Report Date: 11/14/2024 [...] Jr., D.O. 11/14/2024 10:06 AM Dictation Location: [place] [address] Electronically authenticated by: [id number] Y Date: 11/14/2024 10:06 Dictated By: Mark Anthony Conner M.D. Signed By: 11/14/24 1009 DD/ 1006 TD/TT: Director Of Operations For Therapy: [facility] Radiology, Radiologist, MD - 11/14/2024 [place] [address] Ultrasound Report Signed Patient: JAVID PRASAD MR#: [id number] : 1990 Acct:[id number] Age/Sex: 33 / F ADM Date: 11/13/24 Loc: US Attending Dr: Miguel Hannon D.O. Ordering Physician: Miguel Hannon D.O. Date of Service: 11/13/24 Procedure(s): US OB incomplete anatomy Accession Number(s): [id number] cc: Miguel Hannon D.O.; ADEBAYO SOLARES D.O. The [place] [id number] Patient Name: JAVID PRASAD MRN: [facility]:[id number] date: 1990 Sex: F Assigned Patient Location: Current Patient Location: Accession/Order Number: [id number] Exam Date: 11/14/2024 09:56 Report Date: 11/14/2024 [...] Jr., D.O. 11/14/2024 10:06 AM Dictation Location: [place] [address] Electronically authenticated by: [id number] Y Date: 11/14/2024 10:06 Dictated By: Mark Anthony Conner M.D. Signed By: 11/14/24 1009 DD/ 1006 TD/TT: Director Of Operations For Therapy: [facility] [employer] Radiology Study observation (narrative) [facility] US OB INCOMPLETE ANATOMYOrde red By: Radiologist Radiology on 11-14-2024 [facility] [employer] Work Phone: GLUCOSE TOLERANCE 3 HOURon 0 11-10-2024 GLUCOSE TOLERANCE 3 HOUR High mg/dL [facility] Comment on above: GLU FAST 113H (<95) Col: 11/10/24 0845 GLU 1HR 208H (<180) Col: 11/10/24 0945 GLU 2HR 152 (<155) Col: 11/10/24 1052 GLU 3HR 81 (<140) Col: 11/10/24 1147 Interpretation and review of laboratory results Abnormal [facility] [employer] [facility] Urinalysis macro (dipstick) panel (U)on 11-03-2024 Bilirubin, UA Negative Negative - 4(70) +++ mg/dL [facility] Blood, UA Negative Negative - 50 Osmin/mcL [facility] Healthcare Clarity, UA Clear [facility] re Color, UA Yellow [facility] Glucose, UA Positive Negative - 1999(110) ++++ mg/dL [facility] Interpretation and review of laboratory results Abnormal [facility] Ketones, UA Negative Negative - 160(16) ++++ mg/dL [facility] Leukocytes, UA Negative Negative - 500+++ Oumou/mcL [facility] Nitrite, UA Negative Negative - Positive [facility] pH, UA 7 5 - 9 [facility] Protein, UA Trace Negative - 1999(20) ++++ mg/dL [facility] Spec Grav, UA 1.02 1 - 1.03 [facility] Urobilinogen, UA 1.0 0.2 - 12 mg/dL [facility] US OB GROWTHon 10-31-2024 [place] [address] Ultrasound Report Signed Patient: JAVID PRASAD MR#: [id number] : 1990 Acct:[id number] Age/Sex: 33 / F ADM Date: 10/30/24 Loc: US Attending Dr: Maureen Feliz Ordering Physician: Maureen Feliz Date of Service: 10/30/24 Procedure(s): US OB growth Accession Number(s): [id number] cc: Maureen Feliz; ADEBAYO SOLARES D.O. The [address] [address] Patient Name: JAVID PRASAD MRN: [id number] date: 1990 Sex: F Assigned Patient Location: US Current Patient Location: Accession/Order Number: [id number] Exam Date: 10/31/2024 07:37 Report Date: 10/31/2024 [...] Crow M.D. 10/31/2024 7:41 AM Dictation Location: [place] [address] Electronically authenticated by: [id number] Y Date: 10/31/2024 07:41 Dictated By: Katarzyna Crow M.D. Signed By: 10/31/24 0744 DD/ 0741 TD/TT: Director Of Operations For Therapy: [facility] Radiology, Radiologist, - 10/31/2024 The [place] [id number] Ultrasound Report Signed Patient: JAVID PRASAD MR#: [id number] : 1990 Acct:[id number] Age/Sex: 33 / F ADM Date: 10/30/24 Loc: US Attending Dr: Maureen Feliz Ordering Physician: Maureen Feliz Date of Service: 10/30/24 Procedure(s): US OB growth Accession Number(s): [id number] cc: Maureen Feliz; ADEBAYO SOLARES D.O. The [address] [address] Patient Name: JAVID PRASAD MRN: [facility]:[id number] date: 1990 Sex: F Assigned Patient Location: US Current Patient Location: Accession/Order Number: [id number] Exam Date: 10/31/2024 07:37 Report Date: 10/31/2024 [...] Crow M.D. 10/31/2024 7:41 AM Dictation Location: [place] [address] Electronically authenticated by: [id number] Y Date: 10/31/2024 07:41 Dictated By: Katarzyna Crow M.D. Signed By: 10/31/24 0744 DD/ TD/TT: Director Of Operations For Therapy: [facility] Radiology Study observation (narrative) [facility] OB GROWTHOrdered By: Layne ologist Radiology on 10-31-2024 [facility]: Office Visiton 10-21-2024 Follow-up visit [id number] Javid Prasad 1990 F Date Provider Department Center 10/21/2024 [facility] WAL[facility] Family History Problem Relation Age of Onset Atrial fibrillation Mother Diabetes Father Kidney disease Father Heart attack Maternal Grandmother Family Status - Relation Status Age at Mother Alive Father Alive Maternal Grandmother Level of Service:06206 RI OFFICE/OUTPATIENT ESTABLISHED LOW MDM 20 MIN Normal [facility] Urinalysis macro (dipstick) panel (U)on 10-21-2024 Bilirubin, UA Negative Negative - 4(70) +++ mg/dL [facility] Blood, UA Negative Negative - 50 Osmin/mcL [facility] Clarity, UA Clear [facility] re Color, UA Yellow [facility] Glucose, UA Negative Negative - 1999(110) ++++ mg/dL [facility] Interpretation and review of laboratory results Abnormal [facility] Ketones, UA Positive Negative - 160(16) ++++ mg/dL [facility] Leukocytes, UA Negative Negative - 500+++ Oumou/mcL [facility] Nitrite, UA Negative Negative - Positive [facility] pH, UA 5.5 5 - 9 [facility] e Protein, UA Negative Negative - 1999(20) ++++ mg/dL [facility] Spec Grav, UA 1.02 1 - 1.03 [facility] Urobilinogen, UA 1.0 0.2 - 12 mg/dL [facility] US OB 14+ WEEKS [...] PHD at 18-Sep-2024 08:49:14 AM [facility] Normal Not Available Comment on above: Order Comment: US OB ANATOMY SINGLE W US OB CERVICAL LENGTH Estimated Date of Delivery: 01/17/25 Gestational Age as of 08/19/2024: 18w3d Urinalysis macro (dipstick) panel (U)on 09-16-2024 Bilirubin, UA Negative Negative - 4(70) +++ mg/dL [facility] Blood, UA Negative Negative - 50 Osmin/mcL [facility] Clarity, UA Clear [facility] re Color, UA Yellow [facility] e Glucose, UA Negative Negative - 1999(110) ++++ mg/dL [facility] Interpretation and review of laboratory results Normal [facility] Ketones, UA Negative Negative - 160(16) ++++ mg/dL [facility] Leukocytes, UA Negative Negative - 500+++ Oumou/mcL [facility] Nitrite, UA Negative Negative - Positive [facility] pH, UA 6 5 - 9 [facility] e Protein, UA Negative Negative - 1999(20) ++++ mg/dL [facility] Spec Grav, UA 1.025 1 - 1.03 [facility] Urobilinogen, UA 0.2 0.2 - 12 mg/dL [facility] GLUCOSE TOLERANCE 3 HOURon 0 08-23-2024 GLUCOSE TOLERANCE 3 HOUR High mg/dL [facility] Comment on above: GLU FAST 110H (<95) Col: 08/23/24 0738 GLU 1HR 173 (<180) Col: 08/23/24 0839 GLU 2HR 131 (<155) Col: 08/23/24 0939 GLU 3HR 67 (<140) Col: 08/23/24 1040 Interpretation and review of laboratory results Abnormal [facility] RECURRENT VAGINITIS (HTRX)on 08-20-2024 ATOPOBIUM VAGINAE 0 [facility] althcare ATOPOBIUM VAGINAE Not detected [facility] BVAB 2,3 (BACTERIAL VAGINOSIS ASSOCIATED BACTERIA 2, 3); MOBILUNCUS SPP 0 [facility] BVAB 2,3 (BACTERIAL VAGINOSIS ASSOCIATED BACTERIA 2, 3); MOBILUNCUS SPP Not detected [facility] AGUSTIN ALBICANS, PARAPSILOSIS, TROPICALIS 0 [facility] AGUSTIN ALBICANS, PARAPSILOSIS, TROPICALIS Not detected [facility] AGUSTIN GLABRATA 0 [facility] Hea lthcare AGUSTIN GLABRATA Not detected [facility] AGUSTIN KRUSEI 0 [facility] Healt hcare AGUSTIN KRUSEI Not detected [facility] CHLAMYDIA TRACHOMATIS 0 [facility] CHLAMYDIA TRACHOMATIS Not detected N [facility] GARDNERELLA VAGINALIS 0 [facility] GARDNERELLA VAGINALIS Not detected N [facility] MEGASPHAERA (TYPES 1, 2) 0 [facility] MEGASPHAERA (TYPES 1, 2) Not detected [facility] MYCOPLASMA GENITALIUM 0 [facility] MYCOPLASMA GENITALIUM Not detected N [facility] NEISSERIA GONORRHOEAE 0 [facility] NEISSERIA GONORRHOEAE Not detected N [facility] TRICHOMONAS VAGINALIS 0 [facility] TRICHOMONAS VAGINALIS Not detected N [facility] GLUCOSE 1 HOURon 08-19-2024 Glucose [Mass/Vol] 182 mg/dL High NINF - 13 0 mg/dL [facility] Interpretation and review of laboratory results Abnormal [facility] Urinalysis macro (dipstick) panel (U)on 08-19-2024 Bilirubin, UA Positive Negative - 4(70) +++ mg/dL [facility] Comment on above: small Blood, UA Negative Negative - 50 Osmin/mcL [facility] Clarity, UA Clear [facility] re Color, UA Yellow [facility] e Glucose, UA Negative Negative - 2000(110) ++++ mg/dL [facility] Interpretation and review of laboratory results Abnormal [facility] Ketones, UA Positive Negative - 160(16) ++++ mg/dL [facility] Comment on above: 15 Leukocytes, UA Negative Negative - 500+++ Oumou/mcL [facility] Nitrite, UA Negative Negative - Positive [facility] pH, UA 6 5 - 9 [facility] Protein, UA Positive Negative - 1999(20) ++++ mg/dL [facility] Comment on above: 30 Spec Grav, UA 1.025 1 - 1.03 [facility] Urobilinogen, UA 0.2 0.2 - 12 mg/dL [facility] Urinalysis macro (dipstick) panel (U)on 07-22-2024 Bilirubin, UA Negative Negative - 4(70) +++ mg/dL [facility] Blood, UA Negative Negative - 50 Osmin/mcL [facility] Clarity, UA Clear [facility] re Color, UA Yellow [facility] e Glucose, UA Negative Negative - 1999(110) ++++ mg/dL [facility] Interpretation and review of laboratory results Abnormal [facility] Ketones, UA Positive Negative - 160(16) ++++ mg/dL [facility] Comment on above: trace Leukocytes, UA Negative Negative - 500+++ Oumou/mcL [facility] Nitrite, UA Negative Negative - Positive [facility] pH, UA 6.5 5 - 9 [facility] Protein, UA Trace Negative - 1999(20) ++++ mg/dL [facility] Spec Grav, UA 1.025 1 - 1.03 [facility] Urobilinogen, UA 0.2 0.2 - 12 mg/dL [facility] CBC and differentialon 07-15 Hematocrit (Bld) [Volume fraction] 42 % 36 - 46 % [facility] Hemoglobin (Bld) [Mass/Vol] 13.6 g/dL 12.0 - 16.0 g/dL [facility] Platelets (Bld) [#/Vol] 392 10*3/uL 150 - 399 10*3/uL [facility] WBC (Bld) [#/Vol] 9.2 10*3/mL 3.3 - 10.0 10*3/mL [facility] CBC without diffon Rbc Mcv (Fl) By Automated Count 85.4 [facility] Drug Screen, Urineon 025 Amphetamine/Methamphe tamine Negative [facility] Barbiturates Negative [facility] Benzodiazepines Negative [facility] Cocaine Metabolite Negative [facility] Methadone Negative [facility] Opiates Negative [facility] Oxycodone Negative [facility] Phencyclidine Negative [facility] Thc Marijuana, Urine Negative [facility] Glucose 1h post 50g loadon 0 07-15-2024 Glucose, 1Hr PP 182 [facility] HBV surface Ag IA Qlon 07-15 Hepatitis B Surface Antigen Negative [facility] HIV 1+2 Ab+HIV1 p24 Ag IA Ql on 07-15-2024 HIV 1&2 AB/AG Non-Reactive [facility] Laboratory - Chemistry and C hemistry - challengeon 07-15-2024 Glucose [Mass/Vol] 111 mg/dL [facility] Laboratory - Hematology and Cell countson 07-15-2024 HbA1c (Bld) [Mass fraction] 5.5 % 4.0 - 6.0 % [facility] Comment on above: ADA RECOMMENDED LIMI T 4.0 - 6.0 ADA THERAPEUTIC TARGET < 7.0 ACTION SUGGESTED > 7.0 MLR HEMOGLOBIN A1Con 025 [facility] No Panel Informationon 07-15 [facility] Rubella IGG immune statuson 07-15-2024 Rubella immune IgG 1.77 [facility] T. pallidum IgG+IgM IA Ql (S )on 07-15-2024 Syphilis Non-Reactive [facility] Type and screenon 07-15-2024 Abo/Rh(D) Positive [facility] US OB TRANSVAGINALon 025 US OB TRANSVAGINAL [...] II, MD, PHD at 20-Jun-2024 08:24:08 AM [facility] Normal Not Available Comment on above: Order Comment: US OB TRANSVAGINAL No LMP recorded. [facility] PREG QUANT HCGon 05-20- 025 HCG QUANTITATIVE 2792 mIU/mL [facility] lthcare Comment on above: 5-50 0.2-1 WEEK 50-500 1-2 WEEKS 100-5,000 2-3 WEEKS 500-10,000 3-4 WEEKS 1,000-50,000 4-5 WEEKS 10,000-100,000 5-6 WEEKS 15,000-200,000 6-8 WEEKS 10,000-100,000 2-3 MONTHS [facility] PREG QUANT HCGon 025 HCG QUANTITATIVE 713 mIU/mL [facility] Comment on above: 5-50 0.2-1 WEEK 50-500 1-2 WEEKS 100-5,000 2-3 WEEKS 500-10,000 3-4 WEEKS 1,000-50,000 4-5 WEEKS 10,000-100,000 5-6 WEEKS 15,000-200,000 6-8 WEEKS 10,000-100,000 2-3 MONTHS [facility] ALL CBC WITH AUTO DIFFon BASOPHILS ABSOLUTE AUTO 0.1 [facility] Basophils/100 WBC (Bld) 0.8 % 0.2 - 2.0 % [facility] Eosinophils/100 WBC (Bld) 3.5 % 0.9 - 7.0 % [facility] Erythrocyte distribution width (RBC) [Ratio] 13.2 % 11.0 - 15.0 % [facility] Hematocrit (Bld) [Volume fraction] 41.9 % 36.0 - 48.0 % [facility] Hemoglobin (Bld) [Mass/Vol] 13.8 g/dL 12.0 - 16.0 g/dL [facility] IMMATURE GRANULOCYTES ABS AUTO 0.02 [facility] Immature granulocytes/100 WBC (Bld) 0.3 % 0.0 - 0.5 % [facility] LYMPHOCYTES ABSOLUTE AUTO 2.5 [facility] Lymphocytes/100 WBC (Bld) 31.1 % 20.5 - 60.0 % [facility] MCH (RBC) [Entitic mass] 27.7 pg 26.7 - 34.[address] [facility] MCHC (RBC) [Mass/Vol] 32.9 g/dL 29.9 - 35.2 g/dL [facility] MCV (RBC) [Entitic vol] 84 fL 81.0 - 99.[address] [facility] MONOCYTES ABSOLUTE AUTO 0.5 [facility] Monocytes/100 WBC (Bld) 6.6 % 1.7 - 12.0 % [facility] NEUTROPHILS ABSOLUTE AUTO 4.6 [facility] Neutrophils/100 WBC (Bld) 57.7 % 43.0 - 75.0 % [facility] Platelet mean volume (Bld) [Entitic vol] 9.6 fL 9.5 - 13.5 fL [facility] are [facility] EO # 0.3 [facility] TB PLT 429 [facility] RBC 4.99 [facility] WBC 8 [facility] ALL CBC WITH AUTO DIFFon BASOPHILS ABSOLUTE AUTO 0.1 [facility] Basophils/100 WBC (Bld) 0.7 % 0.2 - 2.0 % [facility] Eosinophils/100 WBC (Bld) 3.7 % 0.9 - 7.0 % [facility] Erythrocyte distribution width (RBC) [Ratio] 13.2 % 11.0 - 15.0 % [facility] Hematocrit (Bld) [Volume fraction] 42.2 % 36.0 - 48.0 % [facility] Hemoglobin (Bld) [Mass/Vol] 14 g/dL 12.0 - 16.0 g/dL [facility] IMMATURE GRANULOCYTES ABS AUTO 0.01 [facility] Immature granulocytes/100 WBC (Bld) 0.1 % 0.0 - 0.5 % [facility] LYMPHOCYTES ABSOLUTE AUTO 2.6 [facility] Lymphocytes/100 WBC (Bld) 37.7 % 20.5 - 60.0 % [facility] MCH (RBC) [Entitic mass] 28.1 pg 26.7 - 34.0 pg [facility] MCHC (RBC) [Mass/Vol] 33.2 g/dL 29.9 - 35.2 g/dL [facility] MCV (RBC) [Entitic vol] 84.6 fL 81.0 - 99.0 fL [facility] MONOCYTES ABSOLUTE AUTO 0.4 [facility] Monocytes/100 WBC (Bld) 5.9 % 1.7 - 12.0 % [facility] NEUTROPHILS ABSOLUTE AUTO 3.6 [facility] [...] [facility] Office Visiton 12-25-2023 Follow-up visit [id number] Javid Prasad 1990 F Date Provider Department Center 12/25/2023 [facility] Family History Problem Relation Age of Onset Atrial fibrillation Mother Diabetes Father Kidney disease Father Heart attack Maternal Grandmother Family Status - Relation Status Age at Mother Father Maternal Grandmother Level of Service:71871 RI OFFICE/OUTPATIENT ESTABLISHED LOW MDM 20 MIN Normal [facility] Cytology Cervical or vaginal smear or scraping studyon 12-13-2023 [facility] H[facility] QUALITATIVE*on 4 [facility] , QUAL Negative NEGATIVE [facility] Medicine Consultationo n 05-16-2022 Sleep [...] She can be sleepy during the day. [place] Sleepiness Scale score: 12. She is sleepy [...] by: CARLOS GALE Date: 2021-12-21 07:15 Normal [facility] CT TEMPORAL BONES WO CONon 0 [...] foramen are normal. Visualized paranasal sinuses clear. Inspector Balance Wheel Motion spaces normal. Orbital contents unremarkable. Posterior fossa structures normal. IMPRESSION: Normal CT of the temporal bones. Electronically authenticated by: LOUIS BRAY Date: 2021-12-21 16:11 Normal [facility] Comprehensive Metabolic Empo n 05-10-2021 Albumin [Mass/Vol] 4.1 g/dL Normal 3.2-5.5 [facility] Comment on above: Performed By: #### E BS LIPID, EBS A1C, EBS CMP #### [facility] [address] [place] [id number] [place] Albumin/Globulin [Mass ratio] 1.3 {ratio} Normal [facility] Comment on above: Performed By: #### E BS LIPID, EBS A1C, EBS CMP #### [facility] [address] [place] [address] [place] ALP [Catalytic activity/Vol] 77 U/L Normal 32-92 [facility] Comment on above: Performed By: #### E BS LIPID, EBS A1C, EBS CMP #### [facility] [address] [place] [address] [place] ALT [Catalytic activity/Vol] 19 U/L Normal 10-60 [facility] Comment on above: Performed By: #### E BS LIPID, EBS A1C, EBS CMP #### [facility] [address] [place] [address] [place] AST [Catalytic activity/Vol] 18 U/L Normal 10-42 [facility] Comment on above: Performed By: #### E BS LIPID, EBS A1C, EBS CMP #### [facility] [address] [place] [address] [place] Bilirubin [Mass/Vol] 0.3 mg/dL Normal 0.3-1.2 [facility] Comment on above: Performed By: #### E BS LIPID, EBS A1C, EBS CMP #### [facility] [address] [place] [address] [place] Calcium [Mass/Vol] 9.2 mg/dL Normal 8.2-10.2 [facility] Comment on above: Performed By: #### E BS LIPID, EBS A1C, EBS CMP #### [facility] [address] [place] [address] [place] Chloride [Moles/Vol] 104 mmol/L Normal 95-114 [facility] Comment on above: Performed By: #### E BS LIPID, EBS A1C, EBS CMP #### [facility] [address] CO2 [Moles/Vol] 24.1 mmol/L Normal 22.0-30.0 [facility] Comment on above: Performed By: #### E BS LIPID, EBS A1C, EBS CMP #### [facility] [address] Creatinine [Mass/Vol] 0.69 mg/dL Normal 0.44-1.03 [facility] Comment on above: Performed By: #### E BS LIPID, EBS A1C, EBS CMP #### [facility] [address] Estimated GFR ( Liz > 60 [facility] Comment on above: Result Comment: GFR estimated reference range: According to KDOQI guidelines, <60 ml/min/1.73m2 is sufficient to diagnose a patient with chronic kidney disease. Performed By: #### E BS LIPID, EBS A1C, EBS CMP #### [address] Estimated GFR (Non- Am > 60 [facility] Comment on above: Performed By: #### E BS LIPID, EBS A1C, EBS CMP #### [facility] [address] [place] [address] [place] Globulin (S) [Mass/Vol] 3.1 g/dL Normal [facility] Comment on above: Performed By: #### E BS LIPID, EBS A1C, EBS CMP #### [facility] [address] [place] [address] [place] Glucose [Mass/Vol] 106 mg/dL High 70-100 [facility] Comment on above: Result Comment: ADA recommended reference range Performed By: #### E BS LIPID, EBS A1C, EBS CMP #### [facility] [address] [place] [address] [place] Potassium [Moles/Vol] 4.0 mmol/L Normal 3.5-5.1 [facility] Comment on above: Performed By: #### E BS LIPID, EBS A1C, EBS CMP #### [facility] [address] [id number] [facility] Protein [Mass/Vol] 7.2 g/dL Normal 6.1-7.9 [facility] Comment on above: Performed By: #### E BS LIPID, EBS A1C, EBS CMP #### [facility] [address] Sodium [Moles/Vol] 137 mmol/L Normal 136-146 [facility] Comment on above: Performed By: #### E BS LIPID, EBS A1C, EBS CMP #### [address] Urea nitrogen [Mass/Vol] 10 mg/dL Normal 9-23 [facility] Comment on above: Performed By: #### E BS LIPID, EBS A1C, EBS CMP #### [facility] [address] EBS A1C with Estimated Ave Primo abigail 05-10-2021 Glucose [Mass/Vol] 111 mg/dL Normal [facility] Comment on above: Result Comment: PERF ORMED BY: [address] [place] [address] PATHOLOGIST RN [employer] DEL[employer] JERRY RAMSEY M.D. Performed By: #### E BS LIPID, EBS A1C, EBS CMP #### [facility] [address] HbA1c (Bld) [Mass fraction] 5.5 % Normal 4.3-5.6 [facility] Comment on above: Result Comment: Incr eased risk for diabetes: 5.7 - 6.4 diabetes: >6.4 glycemic control for adults with diabetes: <7.0 Performed By: #### E BS LIPID, EBS A1C, EBS CMP #### [facility] [address] Lipid Profileon 05-10-2021 Cholesterol [Mass/Vol] 202 mg/dL High 140-200 [facility] Comment on above: Result Comment: Chol less than 200 mg/dl low risk Chol 201-239 mg/dl borderline risk Chol 240 mg/dl and greater high risk Performed By: #### E BS LIPID, EBS A1C, EBS CMP #### [facility] [address] [place] [address] [place] Cholesterol in HDL [Mass/Vol] 37 mg/dL Normal 35-85 [facility] Comment on above: Result Comment: HDL CHOL ATP-III CLASSIFICATION Cardiovascular Risk HDL > or equal to 60 mg/dL LOW HDL < 40 mg/dL HIGH Performed By: #### E BS LIPID, EBS A1C, EBS CMP #### [facility] [address] Cholesterol.total/Cho lesterol in HDL [Mass ratio] 5.5 {ratio} Normal <5.0 [facility] Comment on above: Result Comment: PERF ORMED BY: [place] [address] PATHOLOGIST RN LABOR AND DELIVERY JERRY RAMSEY M.D. Performed By: #### E BS LIPID, EBS A1C, EBS CMP #### [facility] [address] LDL Cholesterol,Calculate d 125 mg/dL High 0-100 [facility] Comment on above: Result Comment: LDL ATP III CLASSIFICATION LDL less than 100 mg/dL Optimal LDL 100-129 mg/dL Near or above optimal LDL 130-159 mg/dL Borderline high LDL 160-189 mg/dL High LDL greater than 189 mg/dL Very high Performed By: #### E BS LIPID, EBS A1C, EBS CMP #### [facility] [address] [place] [id number] [place] Triglyceride w/Reflex 199 mg/dL High 35-149 [facility] Comment on above: Result Comment: TRIG ATP III CLASSIFICATION TRIG less than 150 mg/dL Normal TRIG 150-199 mg/dL Borderline high TRIG 200-500 mg/dL High TRIG greater than 500 mg/dL Very high Standard traceable to the Center for Disease Conrtrol and Prevention (CDC) test method. Performed By: #### E BS LIPID, EBS A1C, EBS CMP #### [facility] [address] [place] [address] [place] VLDL CHOLESTEROL 39 mg/dL Normal [facility] Comment on above: Performed By: #### E BS LIPID, EBS A1C, EBS CMP #### [facility] [address] [place] [address] [place] Vital Signs Date Time Vital Sign Value Performing Clinician Ronaldo coello 12-02-2024 08:57-0400 Body mass index (BMI) [Ratio] 39.3 kg/m2 Miguel Riddhi DO Work Phone: [facility] 12-02-2024 08:57-0400 Body weight 131.45 kg Miguel Riddhi DO Work Phone: [facility] 12-02-2024 08:57-0400 Diastolic blood pressure 76 mm[Hg] Miguel Riddhi DO Work Phone: [facility] 12-02-2024 08:57-0400 Systolic blood pressure 114 mm[Hg] Miguel Riddhi DO Work Phone: [facility] 11-28-2024 11:44-0400 Body height 182.9 cm Saul Granados MD Work Phone: [facility] 11-28-2024 11:44-0400 Body mass index (BMI) [Ratio] 38.9 kg/m2 Saul Granados MD Work Phone: [facility] [employer] 11-28-2024 11:44-0400 Body weight 130.09 kg Saul Granados MD Work Phone: [facility] [facility] 11-28-2024 11:44-0400 Diastolic blood pressure 60 mm[Hg] Saul Granados MD Work Phone: [facility] [employer] [facility] 11-28-2024 11:44-0400 Heart rate 96 /min Saul Granados MD Work Phone: [facility] 11-28-2024 11:44-0400 Systolic blood pressure 114 mm[Hg] Sual Granados MD Work Phone: [facility] 11-18-2024 09:04-0400 Body mass index (BMI) [Ratio] 38.52 kg/m2 Miguel Riddhi DO Work Phone: [facility] 11-18-2024 09:04-0400 Body weight 128.82 kg Miguel Riddhi DO Work Phone: [facility] 11-18-2024 09:04-0400 Diastolic blood pressure 70 mm[Hg] Miguel Riddhi DO Work Phone: [facility] 11-18-2024 09:04-0400 Systolic blood pressure 112 mm[Hg] Miguel Riddhi DO Work Phone: [facility] 11-03-2024 15:07-0400 Body mass index (BMI) [Ratio] 38.63 kg/m2 Miguel Riddhi DO Work Phone: [facility] 11-03-2024 15:07-0400 Body weight 129.18 kg Miguel Riddhi DO Work Phone: [facility] 11-03-2024 15:07-0400 Diastolic blood pressure 74 mm[Hg] Miguel Riddhi DO Work Phone: [facility] 11-03-2024 15:07-0400 Systolic blood pressure 110 mm[Hg] Miguel Riddhi DO Work Phone: [facility] 10-21-2024 08:41-0400 Body mass index (BMI) [Ratio] 38.44 kg/m2 Maureen SINGLETON Work Phone: [facility] 10-21-2024 08:41-0400 Body weight 128.55 kg Maureen SINGLETON Work Phone: [facility] 10-21-2024 08:41-0400 Diastolic blood pressure 78 mm[Hg] Maureen SINGLETON Work Phone: [facility] 10-21-2024 08:41-0400 Systolic blood pressure 124 mm[Hg] Maureen SINGLETON Work Phone: [facility] 09-16-2024 09:49-0400 Body mass index (BMI) [Ratio] 37.57 kg/m2 Miguel Riddhi DO Work Phone: [facility] 09-16-2024 09:49-0400 Body weight 125.65 kg Miguel Riddhi DO Work Phone: [facility] 09-16-2024 09:49-0400 Diastolic blood pressure 76 mm[Hg] Miguel Riddhi DO Work Phone: [facility] 09-16-2024 09:49-0400 Systolic blood pressure 126 mm[Hg] Miguel Riddhi DO Work Phone: [facility] 08-19-2024 14:52-0400 Body mass index (BMI) [Ratio] 37.57 kg/m2 Maureen SINGLETON Work Phone: [facility] 08-19-2024 14:52-0400 Body weight 125.65 kg Maureen SINGLETON Work Phone: [facility] 08-19-2024 14:52-0400 Diastolic blood pressure 78 mm[Hg] Maureen Feliz PA Work Phone: [facility] 08-19-2024 14:52-0400 Systolic blood pressure 128 mm[Hg] Maureen Feliz PA Work Phone: [facility] 07-22-2024 09:47-0400 Body mass index (BMI) [Ratio] 37.3 kg/m2 Miguel Riddhi DO Work Phone: [facility] 07-22-2024 09:47-0400 Body weight 124.74 kg Miguel Riddhi DO Work Phone: [facility] 07-22-2024 09:47-0400 Diastolic blood pressure 86 mm[Hg] Miguel Riddhi DO Work Phone: [facility] 07-22-2024 09:47-0400 Systolic blood pressure 130 mm[Hg] Miguel Riddhi DO Work Phone: [facility] 02-19-2024 14:07-0500 Body mass index (BMI) [Ratio] 37.95 kg/m2 Maureen SINGLETON Work Phone: [facility] 02-19-2024 14:07-0500 Body weight 126.92 kg Maureen Sheridaney PA Work Phone: [facility] 02-19-2024 14:07-0500 Diastolic blood pressure 74 mm[Hg] Maureen Sheridaney PA Work Phone: [facility] 02-19-2024 14:07-0500 Systolic blood pressure 114 mm[Hg] Maureen Feliz PA Work Phone: [facility] 01-16-2024 16:38-0400 Body height 182.9 cm Miguel Riddhi DO Work Phone: [facility] 01-16-2024 16:38-0400 Body mass index (BMI) [Ratio] 37.57 kg/m2 Miguel Riddhi DO Work Phone: [facility] 01-16-2024 16:38-0400 Body weight 125.65 kg Miguel Riddhi DO Work Phone: [facility] 01-16-2024 16:38-0400 Diastolic blood pressure 80 mm[Hg] Miguel Riddhi DO Work Phone: [facility] 01-16-2024 16:38-0400 Systolic blood pressure 124 mm[Hg] Miguel Riddhi DO Work Phone: [facility] 12-25-2023 10:12-0400 Body height 182.9 cm Miguel Riddhi DO Work Phone: [facility] 12-25-2023 10:12-0400 Body mass index (BMI) [Ratio] 37.57 kg/m2 Miguel Riddhi DO Work Phone: [facility] 12-25-2023 10:12-0400 Body weight 125.65 kg Miguel Riddhi DO Work Phone: [facility] 12-25-2023 10:12-0400 Diastolic blood pressure 84 mm[Hg] Miguel Riddhi DO Work Phone: [facility] 12-25-2023 10:120400 Systolic blood pressure 122 mm[Hg] Miguel Riddhi DO Work Phone: [facility] Encounters Encounter Date Encounter Type Care Provider Facility Start: 12-09-2024 End: 12-09-2024 Orders Only Mary Scanlon PA-C Work Phone: [facility] Start: 12-06-2024 End: 12-06-2024 Clinisync Result Encounter Miguel Riddhi DO Work Phone: [facility] Unsolicited Start: 12-06-2024 End: 12-06-2024 Clinisync Result Encounter Miguel Riddhi DO Work Phone: [facility] Unsolicited Start: 12-03-2024 End: 12-03-2024 Orders Only Hanny DIAZ Work Phone: [facility] Start: 12-02-2024 End: 12-02-2024 Bamboo flowsheet Miguel Riddhi DO Work Phone: [facility] Start: 12-02-2024 End: 12-02-2024 Bamboo flowsheet Miguel Riddhi DO Work Phone: [facility] Start: 12-02-2024 End: 12-02-2024 flow sheet Miguel Riddhi DO Work Phone: [facility] Comment on above: Third trimester preg shayla ([facility]); 33 weeks gestation of ([facility]); Gestational diabetes mellitus (GDM), antepartum, gestational diabetes method of control unspecified ([facility]) Start: 12-02-2024 End: 12-02-2024 ambulatory MIGUEL RIDDHI Not Available Start: 11-28-2024 End: 11-28-2024 Office outpatient new 45 minutes Saul Granados MD Work Phone: [facility] Comment on above: Insulin controlled g estational diabetes mellitus (GDM) in third trimester (Primary Dx); Prediabetes in mother during ; Family history of type 2 diabetes mellitus; Obesity affecting , antepartum, unspecified obesity type; 32 weeks gestation of Start: 11-28-2024 End: 11-28-2024 ambulatory [facility]IANA [facility] Start: 11-27-2024 End: 11-27-2024 Clinisync Result Encounter Miguel Riddhi DO Work Phone: [facility] Unsolicited Start: 11-27-2024 End: 11-27-2024 Clinisync Result Encounter Miguel Riddhi DO Work Phone: [facility] Unsolicited Start: 11-26-2024 End: 11-26-2024 Documentation procedure Yojana Diehl RN [facility] Start: 11-26-2024 End: 11-26-2024 Telephone encounter Yojana Diehl RN [facility] Start: 11-25-2024 End: 11-25-2024 Telephone encounter Naomie Huber LD Work Phone: [facility] Start: 11-24-2024 End: 11-24-2024 Chart abstracting Scanning Provider External [facility] Start: 11-20-2024 End: 11-20-2024 ambulatory MIGUEL R [facility] Start: 11-18-2024 End: 11-18-2024 Bamboo flowsheet Miguel Riddhi DO Work Phone: [facility] Start: 11-18-2024 End: 11-18-2024 Bamboo flowsheet Miguel Riddhi DO Work Phone: [facility] Start: 11-18-2024 End: 11-18-2024 ambulatory MIGUEL RIDDHI Not Available Start: 11-18-2024 End: 11-18-2024 flow sheet Miguel Riddhi DO Work Phone: [facility] Comment on above: Third trimester preg shayla ([facility]); 31 weeks gestation of ([facility]); Gestational diabetes mellitus (GDM), antepartum, gestational diabetes method of control unspecified ([facility]) Start: 11-14-2024 End: 11-14-2024 Clinisync Result Encounter Miguel Riddhi DO Work Phone: [facility] Unsolicited Start: 11-14-2024 End: 11-14-2024 Clinisync Result Encounter Miguel Riddhi DO Work Phone: [facility] Unsolicited Start: 11-13-2024 End: 11-13-2024 Chart abstracting Generic External Data Provider [facility] Start: 11-12-2024 ambulatory [facility] Start: 11-10-2024 End: 11-10-2024 Clinisync Result Encounter Miguel Riddhi DO Work Phone: [facility] Unsolicited Start: 11-10-2024 End: 11-10-2024 Clinisync Result Encounter Miguel Riddhi DO Work Phone: [facility] Unsolicited Start: 11-03-2024 End: 11-03-2024 flow sheet Miguel Riddhi DO Work Phone: [facility] Comment on above: 29 weeks gestation o f ([facility]); Third trimester ([facility]) Start: 11-03-2024 End: 11-03-2024 ambulatory MIGUEL RIDDHI Not Available Start: 11-03-2024 End: 11-03-2024 Bamboo flowsheet Miguel Riddhi DO Work Phone: [facility] Start: 11-03-2024 End: 11-03-2024 Bamboo flowsheet Miguel Riddhi DO Work Phone: [facility] Start: 10-31-2024 End: 10-31-2024 Clinisync Result Encounter Maureen Feliz PA Work Phone: [facility] Unsolicited Start: 10-31-2024 End: 10-31-2024 Clinisync Result Encounter Maureen SINGLETON Work Phone: [facility] Unsolicited Start: 10-21-2024 End: 10-21-2024 Bamboo flowsheet Maureen SINGLETON Work Phone: [facility] Start: 10-21-2024 End: 10-21-2024 Bamboo flowsheet Maureen SINGLETON Work Phone: [facility] Start: 10-21-2024 End: 10-21-2024 ambulatory [facility] Start: 10-21-2024 End: 10-21-2024 flow sheet Maureen SINGLETON Work Phone: [facility] Comment on above: Size of fetus incons istent with dates in second trimester ([facility]) (Primary Dx); Second trimester ([facility]); 27 weeks gestation of ([facility]) Start: 10-21-2024 End: 10-21-2024 ambulatory MAUREEN FELIZ Not Available Start: 09-16-2024 End: 09-16-2024 ambulatory MIGUEL RIDDHI Not Available Start: 09-16-2024 End: 09-16-2024 flow sheet Miguel Riddhi DO Work Phone: [facility] Comment on above: Second trimester pre gnancy; 22 weeks gestation of ; Elevated glucose tolerance test Start: 09-16-2024 End: 09-16-2024 ambulatory MIGUEL RIDDHI Not Available Start: 09-02-2024 ambulatory [facility] Start: 08-23-2024 End: 08-23-2024 Clinisync Result Encounter Maureen SINGLETON Work Phone: [facility] External Department Unsolicited Start: 08-23-2024 End: 08-23-2024 Clinisync Result Encounter Maureen SINGLETON Work Phone: [facility] Unsolicited Start: 08-19-2024 End: 08-19-2024 flow sheet Maureen SINGLETON Work Phone: [facility] Comment on above: Exposure to STD; Second trimester ; 18 weeks gestation of ; Need for maternal serum alpha-protein (MSAFP) screening; Screening, , for anatomic survey; Elevated glucose tolerance test Start: 08-19-2024 End: 08-19-2024 ambulatory MAUREEN FELIZ Not Available Start: 08-19-2024 End: 08-19-2024 Clinisync Result Encounter Miguel Riddhi DO Work Phone: [facility] External Department Unsolicited Start: 08-19-2024 End: 08-20-2024 Clinisync Result Encounter Miguel Riddhi DO Work Phone: [facility] External Department Unsolicited Start: 08-19-2024 End: 08-20-2024 External Result Encounter Maureen Feliz PA Work Phone: [facility] INSTITUTES External Department Unsolicited Start: 07-22-2024 End: 07-22-2024 Bamboo flowsheet Miguel Riddhi DO Work Phone: [facility] Start: 07-22-2024 End: 07-22-2024 Bamboo flowsheet Miguel Riddhi DO Work Phone: [facility] Start: 07-22-2024 End: 07-22-2024 flow sheet Miguel Riddhi DO Work Phone: [facility] Comment on above: Second trimester pre gnancy; 14 weeks gestation of ; Diabetes mellitus screening Start: 07-22-2024 End: 07-22-2024 ambulatory MIGUEL RIDDHI Not Available Start: 07-15-2024 End: 07-15-2024 Clinisync Result Encounter Miguel Riddhi DO Work Phone: [facility] External Department Unsolicited Start: 07-15-2024 End: 07-15-2024 Clinisync Result Encounter Miguel Riddhi DO Work Phone: [facility] External Department Unsolicited Start: 06-26-2024 ambulatory [facility] Start: 06-19-2024 End: 06-19-2024 ambulatory MIGUEL RIDDHI Not Available Start: 05-21-2024 ambulatory [facility] Start: 05-20-2024 End: 05-20-2024 Clinisync Result Encounter [...] [facility] External Department Unsolicited Start: 04-21-2024 ambulatory [facility] Start: 04-14-2024 ambulatory [facility] Start: 03-07-2024 ambulatory [facility] Start: 02-25-2024 ambulatory [facility] Start: 02-19-2024 End: 02-19-2024 Bamboo flowsheet Maureen SINGLETON Work Phone: [facility] Start: 02-19-2024 End: 02-19-2024 Bamboo flowsheet Maureen SINGLETON Work Phone: [facility] Start: 02-19-2024 End: 02-19-2024 Postop follow up visit related to original px Maureen SINGLETON Work Phone: [facility] Comment on above: Postop check Start: 02-19-2024 End: 02-19-2024 ambulatory MAUREEN FELIZ Not Available Start: 02-14-2024 ambulatory [facility] Start: 02-08-2024 End: 02-08-2024 Clinisync Result Encounter [...] [facility] External Department Unsolicited Start: 01-16-2024 ambulatory [facility] Start: 01-16-2024 End: 01-16-2024 Office outpatient [...] bleeding Start: 12-25-2023 End: 12-25-2023 ambulatory MARIANA TRENT [facility] Start: 12-11-2023 End: 12-11-2023 Clinisync Result Encounter Aristides Araiza DO Work Phone: [facility] External Department Unsolicited Start: 12-11-2023 End: 12-11-2023 Clinisync Result Encounter Aristides Araiza DO Work Phone: [facility] External Department Unsolicited Start: 12-12-2022 End: 12-15-2022 ambulatory [facility] Start: 06-19-2022 End: 06-20-2022 ambulatory Isabella Raygoza COLLEGE PHYSICS INSTRUCTOR-ORGANIZATIONAL DEVELOPMENT MANAGER Facility:[facility] Start: 05-30-2022 End: 05-31-2022 ambulatory Adebayo Latham DO Facility:[facility] Start: 05-16-2022 End: 05-17-2022 ambulatory Isabella Raygoza COLLEGE PHYSICS INSTRUCTOR-ORGANIZATIONAL DEVELOPMENT MANAGER Facility:[facility] Start: 12-20-2021 End: 12-21-[address] ADEBAYO SOLARES Facility:[facility] Start: 11-15-2021 End: 11-16-[address] ADEBAYO SOLARES Facility:[facility] Procedures Date Procedure Procedure Detail Performing Clinician Start: 12-06-2024 US OB BPP W NON-STRESS Miguel Riddhi [...] Td Vaccines (7 - Td or Tdap) [facility] Start: 12-12-2028 Screening for malign ant neoplasm of cervix [facility] Start: 12-12-2026 Screening for malign ant neoplasm of cervix Pap Smear [facility] Start: 11-28-2025 Adult BMI Screening Adult BMI Screen ing [facility] Start: 11-28-2025 Tobacco Screening Tobacco Screening [facility] Start: 01-06-2025 End: 01-06-2025 Patient encounter procedure 01/06/2025 9:10 AM EDT Routine [facility] [address] [place] [phone] Miguel Hannon, DO [address] [place] [address] [facility] Start: 12-30-2024 End: 12-30-2024 Patient encounter procedure 12/30/2024 8:30 AM EDT Routine [facility] [address] [place] [phone] Maureen Feliz PA [address] [place] [address] [facility] Start: 12-23-2024 End: 12-23-2024 Patient encounter procedure 12/23/2024 11:30 AM EDT Routine [facility] [address] [place] [address] Miguel Hannon, DO [address] [place] [address] [facility] Start: 12-18-2024 End: 12-18-2024 Telemedicine consultation with patient 12/18/2024 8:00 AM EDT Telemedicine M[facility]- Medicine at [place] [id number] [place] [address] Hanny Ware, MARCELORGANIZATIONAL DEVELOPMENT MANAGER [address] [place] [address] M[facility]- Medicine at [facility] Start: 12-16-2024 End: 12-16-2024 Patient encounter procedure 12/16/2024 1:10 PM EDT Routine [facility] HERNANDE[facility] [address] [place] [address] Maureen Feliz PA [address] [facility] [place] [address] [facility] [place] [facility] Start: 12-15-2024 Influenza vaccination [facility] Start: 12-11-2024 End: 12-11-2024 Patient encounter procedure 12/11/2024 1:00 PM EDT Appointment [facility] [address] [place] [phone] [facility] Start: 12-02-2024 End: 12-02-2024 Patient encounter procedure JOSY HERNANDEZ Comment on above: Arrived Start: 11-20-2024 End: 11-20-2024 Telemedicine consultation with patient 11/20/2024 10:30 AM EDT Telemedicine Maternal- Medicine at [facility] [address] [place] [phone] Miroslava Trinidad RN [address] [address] Juli Quezada LD Karl, Deborah, LD [address] [place] [address] M[facility]- Medicine at [facility] Start: 11-18-2024 End: 05-21-2025 US biophysical profile w non stress test US biophysical profile w non stress test Imaging Routine Gestational diabetes mellitus (GDM), antepartum, gestational diabetes method of control unspecified ([facility]) Expected: 11/18/2024 (Approximate), Expires: 05/21/2025 [facility] Work Phone: Comment on above: Expected: 11/18/2024 (Approximate), Expires: 05/21/2025 Start: 11-18-2024 End: 11-18-2024 Patient encounter procedure 11/18/2024 8:50 AM EDT Routine [facility] [address] [place] [address] Miguel Hannon DO [address] [place], [place] [id number] [facility] Start: 11-03-2024 End: 11-03-2024 Patient encounter procedure [facility] Comment on above: Arrived Start: 11-03-2024 End: 11-03-2024 Professional / ancillary services management 11/03/2024 2:00 PM EDT Ancillary Procedure [facility] [address] [place] [phone] [facility] Start: 10-21-2024 End: 02-21-2025 US for US OB follow up transabdominal approach Imaging Routine Size of fetus inconsistent with dates in second trimester ([facility]) Expected: 10/21/2024, Expires: 02/21/2025 [facility] [...] OB [address] [place] [phone] Miguel Hannon DO [address] [place] [address] [facility] Start: 09-16-2024 End: 09-16-2024 Professional / ancillary services management 09/16/2024 8:30 AM EDT Ancillary Procedure [facility] [address] [place] [phone] [facility] Start: 08-19-2024 End: 08-19-2024 Patient encounter procedure 08/19/2024 2:20 PM EDT Routine [facility] [address] [place] [address] Maureen Feliz PA [address] [facility] [place] [address] [facility] Start: 08-19-2024 End: 09-19-2024 Alpha fetoprotein, maternal Alpha fetoprotein, maternal Lab Routine Need for maternal serum alpha-protein (MSAFP) screening Expected: 08/19/2024 (Approximate), Expires: 09/19/2024 [facility] Comment on above: Expected: 08/19/2024 (Approximate), Expires: 09/19/2024 Start: 08-19-2024 End: 08-19-2025 Measurement of glucose 3 hours after glucose challenge for glucose tolerance test Glucose tolerance, 3 hours Lab Routine Elevated glucose tolerance test Expected: 08/19/2024 (Approximate), Expires: 08/19/2025 [facility] Comment on above: Expected: 08/19/2024 (Approximate), Expires: 08/19/2025 Start: 08-19-2024 End: 11-19-2024 US for US OB 14+ weeks anatomy scan Imaging Routine Screening, , for anatomic survey Expected: 08/19/2024, Expires: 11/19/2024 [facility] Comment on above: Expected: 08/19/2024 , Expires: 11/19/2024 Start: 07-22-2024 End: 07-22-2025 Measurement of glucose 1 hour after glucose challenge for glucose tolerance test Glucose tolerance, 1 hour Lab Routine Diabetes mellitus screening Expected: 07/22/2024 (Approximate), Expires: 07/22/2025 [facility] Work Phone: Comment on above: Expected: 07/22/2024 (Approximate), Expires: 07/22/2025 Start: 07-22-2024 End: 07-22-2024 Patient encounter procedure [facility] Comment on above: Arrived Start: 06-19-2024 End: 06-19-2024 ambulatory 06/19/2024 2:30 PM EST Initial [facility] [address] [place] [phone] [facility] Start: 06-19-2024 End: 06-19-2024 Professional / ancillary services management 06/19/2024 2:00 PM EST Ancillary Procedure [facility] [address] [place] [phone] [facility] Start: 02-19-2024 End: 02-19-2024 Patient encounter procedure 02/19/2024 1:40 PM EST Office Visit [facility] [address] [place] [address] Maureen Feliz PA [address] [place] [address] Arrived [facility] Comment on above: Arrived Start: 01-16-2024 End: 01-16-2024 Patient encounter procedure 01/16/2024 4:00 PM EDT Consult [facility] [address] [place] [phone] Miguel Hannon, [address] [place] [phone] Arrived [facility] Comment on above: Arrived Start: 12-25-2023 End: 2024 Antimullerian hormone (AMH) Antimullerian hormone (AMH) Lab Routine Female infertility PCOS (polycystic ovarian syndrome) Dysfunctional uterine bleeding Expected: 12/25/2023 (Approximate), Expires: 2024 [facility] Comment on above: Expected: 12/25/2023 (Approximate), Expires: 2024 Start: 12-25-2023 End: 2024 DHEA DHEA Lab Routine PCOS (polycystic ovarian syndrome) Expected: 12/25/2023 (Approximate), Expires: 2024 [facility] Comment on above: Expected: 12/25/2023 (Approximate), Expires: 2024 Start: 12-25-2023 End: 12-25-2023 Patient encounter procedure [facility] Comment on above: Arrived Start: 12-16-2023 Influenza vaccination Influenza Vacc ine (#1) [facility] Start: 12-11-2023 End: 12-11-2023 Patient encounter procedure 12/11/2023 8:00 AM EDT Procedure Visit [facility] Aristides Araiza DO [address] [address] [place] [address] [facility] Start: 05-17-2017 Screening for malign ant neoplasm of cervix [facility] Start: 12-23-2012 Screening for malign ant neoplasm of cervix Pap Smear [facility] Start: 12-23-2010 DTaP,Tdap and Td Vaccines (1 - Tdap) DTaP,Tdap and Td Vaccines (1 - Tdap) [facility] Start: 12-23-2009 Adult BMI Follow Up Plan Adult BMI Follow Up Plan [facility] Start: 12-23-2009 Adult BMI Screening Adult BMI Screen ing [facility] Start: 2003 Depression Screening Depression Scre ening [facility] Start: 2003 Tobacco Screening Tobacco Screening [facility] CBC W Auto Different ial panel - Blood CBC and differential Lab Routine PCOS (polycystic ovarian syndrome) Ordered: 12/25/2023 [facility] Comment on above: Ordered: 12/25/2023 CBC W Auto Different ial panel - Blood CBC and differential Lab Routine 22 weeks gestation of Elevated glucose tolerance test Ordered: 09/16/2024 [facility] Comment on above: Ordered: 09/16/2024 CHLAMYDIA TRACHOMATI S (GENITO/STI) CHLAMYDIA TRACHOMATIS (GENITO/STI) Lab Routine Exposure to STD Ordered: 08/19/2024 [facility] Comment on above: Ordered: 08/19/2024 DHEA-sulfate DHEA-sulfate Lab Routine PCOS (polycystic ovarian syndrome) Ordered: 12/25/2023 [facility] Comment on above: Ordered: 12/25/2023 Follicle stimulating hormone Follicle stimulating hormone Lab Routine PCOS (polycystic ovarian syndrome) Ordered: 12/25/2023 [facility] Comment on above: Ordered: 12/25/2023 hCG, quantitative, hCG, quantitative, Lab Routine PCOS (polycystic ovarian syndrome) Ordered: 12/25/2023 [facility] Work Phone: Comment on above: Ordered: 12/25/2023 Hemoglobin A1c/Hemoglobin.total in Blood Hemoglobin A1c Lab Routine Female infertility PCOS (polycystic ovarian syndrome) Dysfunctional uterine bleeding Ordered: 12/25/2023 [facility] Comment on above: Ordered: 12/25/2023 Human papilloma viru s DNA [Presence] in Unspecified specimen by Probe with amplification HPV DNA probe, amplified Microbiology Routine Ordered: 08/19/2024 [facility] Comment on above: Ordered: 08/19/2024 Luteinizing hormone Luteinizing hormone Lab Routine PCOS (polycystic ovarian syndrome) Ordered: 12/25/2023 [facility] Comment on above: Ordered: 12/25/2023 Neisseria gonorrhoea e DNA [Presence] in Unspecified specimen by [place] with probe detection Neisseria gonorrhea DNA probe, direct Lab Routine Exposure to STD Ordered: 08/19/2024 [facility] Comment on above: Ordered: 08/19/2024 SURESWAB(R) ADVANCED VAGINITIS PLUS, TMA SURESWAB(R) ADVANCED VAGINITIS PLUS, TMA Pathology and Cytology Routine Exposure to STD Ordered: 08/19/2024 [facility] Work Phone: Comment on above: Ordered: 08/19/2024 Thyrotropin [Units/volume] in Serum or Plasma TSH Lab Routine PCOS (polycystic ovarian syndrome) Ordered: 12/25/2023 [facility] Comment on above: Ordered: 12/25/2023 Thyroxine (T4) free [Mass/volume] in Serum or Plasma T4, free Lab Routine PCOS (polycystic ovarian syndrome) Ordered: 12/25/2023 [facility] Comment on above: Ordered: 12/25/2023 Immunizations Immunization Date Immunization Notes Care Provider Eunice martinez 01-20-2024 influenza virus vacc ine, unspecified formulation Maureen SINGLETON Work Phone: [facility] 02-12-2023 influenza virus vacc ine, unspecified formulation Aristides Jose G SHORT Work Phone: [facility] Payers Date Payer Category Payer Unknown [id number] 2024 [employer]aged [employer] - Other [id number] 2024 Unknown [id number] 2023 Blue Cross Blue Shield [id number] 2023 Unknown [id number] 2022 Unknown 2021 Self-pay 2019 Unknown [id number] 1991 Unknown [id number] 1991 Unknown [id number] 2.16.840.1.635812.3.579.2.593 1991 Unknown [id number] 2.16.840.1.695189.3.579.2.196 1991 Unknown [id number] 2.16.840.1.583210.3.579.2.196 1991 Unknown [id number] 2.16.840.1.028542.3.579.2.196 1991 Unknown [id number] 2.16.840.1.530859.3.579.2.173 1991 Unknown [id number] 2.16.840.1.727505.3.579.2.6 1991 Unknown [id number] 2.16.840.1.233900.3.579.2.1286 1991 Unknown [id number] 2.16.840.1.221038.3.579.2.1258 1991 Unknown [id number] 2.16.840.1.977888.3.579.2.1258 1991 Unknown [id number] 2.16.840.1.163290.3.579.2.1258 1991 Unknown [id number] 2.16.840.1.851809.3.579.2.1258 1991 Unknown [id number] 2.16.840.1.968957.3.579.2.1258 1991 Unknown [id number] 2.16.840.1.749073.3.579.2.1258 1991 Unknown [id number] 2.16.840.1.934883.3.579.2.1258 1991 Unknown [id number] 2.16.840.1.948250.3.579.2.1258 1991 Unknown [id number] 2.16.840.1.908689.3.579.2.1258 1991 Unknown [id number] 2.16.840.1.799160.3.579.2.1258 1991 Unknown [id number] 2.16.840.1.519409.3.579.2.1258 1991 Unknown [id number] 2.16.840.1.931734.3.579.2.1258 1991 Unknown [id number] 2.16.840.1.066264.3.579.2.1258 1959 Unknown [id number] Social History Date Type Detail Facility Start: 11-19-2023 End: 11-28-2024 Tobacco smoking status NHIS Never smoked tobacco [facility] Start: 11-19-2023 End: 11-28-2024 Tobacco use and exposure Smokeless tobacco non-user [facility] Start: 12-25-2023 End: 11-18-2024 Alcoholic beverage intake Lifetime non-drinker (finding) [facility] Start: 11-19-2023 End: 11-28-2024 History of Social function [facility] Start: 11-19-2023 End: 11-28-2024 Tobacco use panel [facility] Start: 1990 Sex assigned at Not on file [facility] Start: 04-26-2024 [facility] Start: 11-11-2024 Sex Female (finding) [facility] Within the past 12 months we worried whether our food would run out before we got money to buy more. Never True [facility] Start: 11-28-2024 Alcoholic beverage intake Ex-drinker (finding) [facility] Medical Equipment Procedure Code Equipment Code Equipment Origin al Text Equipment Identifier Dates 1 strip by In Vi tro route Daily Use in the morning prior to breakfast, 1 hour after each meal for a total of 4times daily. [id number] Start: 11-10-2024 End: 12-10-2024 1 each by In Vit ro route Daily Use to check FSBS four times daily [id number] Start: 11-10-2024 End: 12-10-2024 Use daily for insulin [id number] Start: 11-28-2024 Clinical Notes 06-19-2022 to 12-09-2024 Telephone Encounter - Yojana Diehl RN - 12/09/2024 6:32 PM EDTTelephone Encounter - Yojana Diehl RN - 12/09/2024 6:32 PM EDTTelephone Encounter - ENE Harris - 12/03/2024 3:26 PM EDT Note Date & Type Note Facility 12-09-2024 Miscellaneous Notes Called pt to discuss her insulin change for this week. Mary Scanlon reviewed her blood sugars and would like her to increase her lantus in the evening to 16 units. Pt verbalized understanding, we will pull her report again next week. documented in this encounter [facility] 12-09-2024 Telephone encounter Note Called pt to discuss her insulin change for this week. Mary Scanlon reviewed her blood sugars and would like her to increase her lantus in the evening to 16 units. Pt verbalized understanding, we will pull her report again next week. [facility] 12-03-2024 Miscellaneous Notes Called patient regarding Dexcom CGM report from 11/29 to 12/01/24 and had to leave a message. RADHA Mathur, reviewed patient's report and increased her Lantus dose to 12 units each evening. Will send patient a Hobzy message as well and asked patient to confirm with us via phone or GetIntenthart that she received the dose change information. documented in this encounter [facility] 12-03-2024 Telephone encounter Note Called patient regarding Dexcom CGM report from 11/29 to 12/01/24 and had to leave a message. RADHA Mathur, reviewed patient's report and increased her Lantus dose to 12 units each evening. Will send patient a Hobzy message as well and asked patient to confirm with us via phone or GetIntenthart that she received the dose change information. [facility] 12-02-2024 History of Present illness Narrative Reason [...] mg, Daily RT Blood Glucose Monitoring Suppl (Staxxon Glucometer) w/Device kit 1 kit, Does not [...] nursing note reviewed. Exam conducted with a printer maintainer present. Vitals: Estimated body mass index is 39.3 kg/m as calculated from the following: Height as of 01/16/24: 6'. Weight as of this encounter: 289 lb 12.8 oz. BP: 114/76 Patient's last menstrual period was 04/12/2024. ASSESSMENT & PLAN ICD-10-CM 1. Third trimester ([facility]) Z34.93 POCT urinalysis dipstick manually resulted 2. 33 weeks gestation of ([facility]) Z3A.33 POCT urinalysis dipstick manually resulted 3. Gestational diabetes mellitus (GDM), antepartum, gestational diabetes method of control unspecified ([facility]) O24.419 Continuous Glucose Sensor (Dexcom G7 [...] Pt to have repeat anatomy scan at [facility] on 12/11. Discussed delivery between 37-39 weeks d/t being on Lantus. Orders Placed This Encounter Procedures POCT urinalysis dipstick manually resulted Follow Up: Patient is to return to office in 2 week for routine OB appointment. Documented by Katarzyna Malagon LPN on behalf of: Miguel Hannon DO documented in this encounter [facility] 11-28-2024 History of Present illness Narrative Headache/epigastric pain/blurry vision/swelling? No Cramping/contractions? No Spotting/vaginal bleeding? No Loss or gush of fluid like your water may have broken? No Do you have cats at home? No Do you change the litter box (reason: risk of toxoplasmosis)? N/A Genetic testing done this here or other office? No Have you been seen here at [facility] in a previous ? No Recent ER visits or hospitalizations? No Bring blood sugar log or meter with you today? (Please bring them with you for every visit at [facility]) Yes, Dexcom report Flu vaccine (Feb-June)? N/A [...] TESTS AND ULTRASOUND REPORTS: Referral records and [facility] were reviewed Pertinent Ultrasound findings [...] more likely to fail compared to insulin. sleeve tailor data on children whose mothers took oral [...] CGM we will be reviewed weekly by [facility]. Status post diabetic education nutrition counseling at [facility] Detailed anatomy ultrasound scheduled for 12/11/2024 in [facility] Repeat growth ultrasound at 38 weeks gestation, through primary OB Recommend weekly testing for the remainder of , through primary OB Delivery recommendations : Recommend delivery at [id number] Discuss delivery if estimated weight is >4500g [...] developing diabetes later on. Follow up in [facility] in 2 weeks with provider visit DISPOSITION: At this point the patient is in complete care of her jersey knitter. Patient does have ultrasound and office visit scheduled with us. Thank you for allowing me to participate in the care of Javid Prasad. If there any questions please do not hesitate to contact us. Saul Granados MD Maternal- Medicine [facility] [address] [place] [address] This document was created with [employer] technology. Though I make every effort to review the dictation as it is transcribed, on occasion the spoken word can be misinterpreted by the technology leading to inappropriate words, phrases, or sentences. This note is addressed to the requesting provider as a consultation for clinical guidance. Specific medical abbreviations are occasionally used and those are generally approved by the [place]?Board of?Obstetrics and?Gynecology?as well as?Ethan de souza abbreviations. The above plan of care was based solely on the diagnoses for which a consultation was requested. ?More frequent testing may be indicated based on her other medical/obstetrical conditions. The management of other or medical conditions is beyond the scope of requested consultation and will continue to be followed by the primary jersey knitter or primary care provider. Note to patient: [...] of the practitioner. documented in this encounter [facility] 11-26-2024 History of Present illness Narrative Pt [...] morning and sched. [facility] [employer] [facility] 11-26-2024 Miscellaneous Notes Called pt to let her know that Hanny Ware reviewed her dexcom and would like her to start marking her fasting time and number. If she does know what her fasting numbers are and if they are consistently over 95 then she needs an appt to start medication. She can call and make that appt at [phone] option #3. It looks as though her fastings are running above target but would like to see what the actual numbers are running. [facility] Telephone encounter Note Called pt to let her know that Hanny Ware reviewed her dexcom and would like her to start marking her fasting time and number. If she does know what her fasting numbers are and if they are consistently over 95 then she needs an appt to start medication. She can call and make that appt at [phone] option #3. It looks as though her fastings are running above target but would like to see what the actual numbers are running. [facility] 11-25-2024 Miscellaneous Notes Called regarding food logs [...] meals. Asked that she call back at [phone] and let us know if she is having any consistent elevated blood sugars. [facility] Telephone encounter Note Called regarding food [...] meals. Asked that she call back at [phone] and let us know if she is having any consistent elevated blood sugars. [facility] 11-20-2024 History of Present illness Narrative [...] care for you: OB Provider Family Doctor Senior Design Engineering Specialist Name: Dr. Alvin Hannon Name: Dr. Karena [...] first Is there anything about your culture, bahai, or personal beliefs we need to know about to care for you: Other Tracking Primary Language spoken: East [place]orese [22] Primary Language for learning: [place]se Are you currently in a relationship where you are physically hurt, threatened or made to fee afraid? [] Yes [] No Spool Worker needed? [] Yes [] No Marital status/Living [...] Safety: Unknown (06/07/2023) Received from [facility] Safety & Environment Fear of Current or [...] If yes, where: On thge following scale, [place] the number, which describes your current level [...] weekly Educational Level Masters Family issues stable Cultural/ethnic/sikh influences demies Exercise approved by MD? Yes Current Exercise program walking 5 miles Who prepares the meal Self Who purchase food at your home? Self and S.O Equipment use for cooking/food storage Has everything Food Assistance(Ex.WIC, Food [place]) Declined Dining out Yes Twice a week Appetite/Appetite changes Flucuates, better lately Weight History Stable Do you have cats at home? Infant Feeding Plans Breast Feeding If you have cats, who cleans the litter box? Cravings/Aversions/Pica Only food aversions to meat Nutrition Assessment Worksheet: Week/Weekend Food Recall Breakfast [place]se muffin with cream cheese or yogurt, water [...] time 38 minutes. documented in this encounter [facility] 11-18-2024 History of Present illness Narrative Reason [...] nursing note reviewed. Exam conducted with a printer maintainer present. Vitals: Estimated body mass index is 38.52 kg/m as calculated from the following: Height as of 01/16/24: 6'. Weight as of this encounter: 284 lb. BP: 112/70 Patient's last menstrual period was 04/12/2024. ASSESSMENT & PLAN ICD-10-CM 1. Third trimester ([facility]) Z34.93 Urine dip 2. 31 weeks gestation of ([facility]) Z3A.31 Urine dip 3. Gestational diabetes mellitus (GDM), antepartum, gestational diabetes method of control unspecified ([facility]) O24.419 Return OB: Patient presents today for a routine obstetrics appointment. Patient is currently 31w3d . Patient states she is doing well but has complaints of being tired due to current . Patient has verbalizes frequent movement. labor precautions was discussed/given and patient was instructed to perform kick counts three times a day. Pt being sent to [facility] to complete anatomy scan. RVOT and LVOT and lips not evaluated. Pt voiced understanding. Orders Placed This Encounter Procedures Urine dip Follow Up: Patient is to return to office in 2 week for routine OB appointment. Documented by Katarzyna Malagon LPN on behalf of: Miguel Hannon DO documented in this encounter [facility] 11-03-2024 History of Present illness Narrative [...] Father Adebayo Marco Diabetes Maternal Grandfather James [place] Hypertension Maternal Grandmother Sandy [place] Diabetes Paternal Grandfather Rito Marco Kidney disease [...] PLAN ICD-10-CM 1. 29 weeks gestation of ([facility]) Z3A.29 POCT urinalysis dipstick manually resulted 2. Third trimester ([facility]) Z34.93 POCT urinalysis dipstick manually resulted Return [...] Miguel Hannon DO documented in this encounter [facility] 10-21-2024 Note [facility] Electrophysiology Consult Note [...] normal affect Orientation (more content not included)... [facility] 10-21-2024 History of Present illness [...] ASSESSMENT & PLAN ICD-10-CM 1. Second trimester ([facility]) Z34.92 POCT urinalysis dipstick manually resulted 2. 27 weeks gestation of ([facility]) Z3A.27 POCT urinalysis dipstick manually resulted Return [...] of: ARELI Espinoza documented in this encounter [facility] 09-16-2024 History of Present illness Narrative [...] Father Adebayo Marco Diabetes Maternal Grandfather James [place] Hypertension Maternal Grandmother Sandy [place] Diabetes Paternal Grandfather Rito Amrco Kidney disease Paternal Grandfather Rito Marco SURGICAL [...] nursing note reviewed. Exam conducted with a printer maintainer present. Vitals: Estimated body mass index is [...] Miguel Hannon DO documented in this encounter [facility] 08-19-2024 History of Present illness Narrative [...] Hyperlipidemia Father Adebayo Marco Hypertension Father Adebayo Maroc Kidney disease Father Adebayo Marco Stroke Father [...] of: ARELI Espinoza documented in this encounter [facility] 07-22-2024 History of Present illness Narrative [...] Father Adebayo Marco Diabetes Maternal Grandfather James [place] Hypertension Maternal Grandmother Sandy [place] Diabetes Paternal Grandfather Rito Marco Kidney disease [...] nursing note reviewed. Exam conducted with a printer maintainer present. Vitals: Estimated body mass index is [...] undercooked meat, and stay away from [facility]. Patient has been consulted regarding any [...] Miguel Hannon DO documented in this encounter [facility] 02-19-2024 History of Present illness Narrative [...] having a D&C Hysteroscopy performed at [facility] with Dr. Hannon. Pathology results was reviewed with the patient in great detail and all restrictions have been lifted. Follow Up: Patient is to return to the office for annual exam unless needed otherwise. Documented by ARELI Espinoza on behalf of: ARELI Espinoza documented in this encounter [facility] 01-16-2024 History of Present illness Narrative Reason for Appointment: Patient ID: Javid Prasad is a 33 y.o. female who presents for Pre-op Visit Patient presents today for Pre Op appointment. Patient is scheduled to undergo D&C Hysteroscopy, possible Myosure on 02/08/[address] Hannon at [facility]. MEDICATIONS Current Outpatient Medications Medication Instructions [...] and patient is to proceed to [facility] OR. Follow Up: Patient is to follow up between 1-2 weeks post operative to assess proper healing and recovery from procedure. Documented by Katarzyna Malagon LPN on behalf of: Miguel Hannon DO documented in this encounter [facility] 12-25-2023 History of Present illness Narrative [...] nursing note reviewed. Exam conducted with a printer maintainer present. Vitals: Estimated body mass index is [...] Miguel Hannon DO documented in this encounter [facility] 12-25-2023 Note Try to bring the [...] not heard Diastolic (more content not included)... [facility] 06-19-2022 Note This is a [...] dreaming in association with her activity. 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 Nutrition/Health Caffeine [...] signed by Isabella Grant 06/19/22 15:39 EST [facility] Evaluation note Diagnosis Pre-op examination Uterine leiomyoma, unspecified location documented in this encounter [facility] HealthcareEvaluation note* Diagnosis Postop check Follow-up examination, following unspecified surgery documented in this encounter [facility] HealthcareEvaluation note* Diagnosis Female infertility Female infertility [...] weeks gestation of [facility] Diagnosis Third trimester ([facility]) state, incidental 33 weeks gestation of ([facility]) Gestational diabetes mellitus (GDM), antepartum, gestational diabetes method of control unspecified ([facility]) documented in this encounter [facility] HealthcareInstructionsNot on filedocumented in this encounterProMediut Health SystemInstructionsNot on filedocumented in this encounterProMediut Health SystemInstructionsNot on filedocumented in this encounterProHill [facility] [place] SystemInstructionsNot on filedocumented in this encounterPro[facility] System InstructionsNot on filedocumented in this encounterProMediPro[facility] System InstructionsNot on filedocumented in this [facility] Summary Purpose Family History No [...] section and content) DATE CREATED AUTHOR 07/04/2021 [facility] DATE CREATED AUTHOR AUTHOR'S ORGANIZ ATION 2021 [facility] DATE CREATED AUTHOR AUTHOR'S ORGANIZ ATION 06/21/2022 [facility] DATE CREATED AUTHOR AUTHOR'S ORGANIZ ATION 12/15/[address] [facility] DATE CREATED AUTHOR AUTHOR'S ORGANIZ ATION 11/30/2024 [facility] DATE CREATED AUTHOR AUTHOR'S ORGANIZ ATION 11/30/2024 [facility] DATE CREATED AUTHOR AUTHOR'S ORGANIZ ATION 12/03/2024 [facility] dical Specialists EPIC Care Teams (unrecognized sec tion and content) Mailer Apprentice Relationship Specialty Start Date End Date Adebayo Solares MD [address] [place] [address] PCP - General Family Medicine 11/19/23 Mailer Apprentice Relationship Specialty Start Date End Date Adebayo Solares MD [address] [place], [place] [id number] PCP - General Family Medicine 11/19/23 Mailer Apprentice Relationship Specialty Start Date End Date Adebayo Solares MD [address] [place] [address] PCP - General Family Medicine 11/19/23 Mailer Apprentice Relationship Specialty Start Date End Date Adebayo Solares MD [address] [place], [place] [id number] PCP - General Family Medicine 11/19/23 Mailer Apprentice Relationship Specialty Start Date End Date Adebayo Solares MD [address] [place] [address] PCP - General Family Medicine 11/19/23 Mailer Apprentice Relationship Specialty Start Date End Date Adebayo Solares MD [address] [place] [address] PCP - General Family Medicine 11/19/23 Mailer Apprentice Relationship Specialty Start Date End Date Adebayo Solares MD [address] [place] [address] PCP - General Family Medicine 11/19/23 Mailer Apprentice Relationship Specialty Start Date End Date Adebayo Solares MD [address] [place] [address] PCP - General Family Medicine 11/19/23 Mailer Apprentice Relationship Specialty Start Date End Date Adebayo Solares MD [address] [place] [address] PCP - General Family Medicine 11/19/23 Mailer Apprentice Relationship Specialty Start Date End Date Adebayo Solares MD [address] [place] [address] PCP - General Family Medicine 11/19/23 Mailer Apprentice Relationship Specialty Start Date End Date Adebayo Solares MD [address] [place] [address] PCP - General Family Medicine 11/19/23 Mailer Apprentice Relationship Specialty Start Date End Date Adebayo Solares MD [address] [place] [address] PCP - General Family Medicine 11/19/23 Mailer Apprentice Relationship Specialty Start Date End Date Adebayo Solares MD [address] [place] [address] PCP - General Family Medicine 11/19/23 Mailer Apprentice Relationship Specialty Start Date End Date Adebayo Solares MD [address] [place] [address] PCP - General Family Medicine 11/19/23 Mailer Apprentice Relationship Specialty Start Date End Date Adebayo Solares MD [address] [place] [address] PCP - General Family Medicine 11/19/23 Reason [...] of control unspecified Miguel Hannon R, DO [address] [place] [address] [place] [address] Phone: tel: fax: Maternal- Medicine at [facility] [address] [place] [address] Phone: tel: fax: Referral ID Status Reason Start Date Expiration Date Visits Requested Visits Authorized [id number] Pending Review Specialty Services Required 11/11/2024 11/11/2025 [...] BE BASED ON THE PRIMARY CLINICAL RECORDS. [facility] [employer] [facility]. provides no warranty or guarantee of the accuracy or completeness of information in this document.
--- OUTSIDE RECORDS SUMMARY | 2024-12-12 19:02 | XMS_ITS | Encounter Summary ---
Author Organization [facility] [employer] [facility] tem Address [id number] [address] [place] [address] Care Team Providers Care Supervisor Corduroy Cutting Name Role Phone Unavailable Primary Care Provider Unavailabl e Encounter Details Date Type Department Care Team (Late Contact Info) Description 11/13/2024 Orders Only Maternal- Medicine at [facility] [address] [place] [id number] Ref Prov, [place] [address] Social History Tobacco Use Types Packs/Day Years [...] 8:00 AM EDT Telemedicine Maternal- Medicine at [facility] [address] [place] [phone] Hanny Ware, CARPENTRY INSTRUCTOR-GENERAL MANAGER [employer] [address] [place] [address] documented as of this encounter Procedures Procedure [...] 11:25 AM EDT) Anatomical Region Laterality Modality OB-BOX LIDDER Ultrasound us Not In System Ref Prov IMG US ORDERABLES Final R esult * Ultrasound limited 1 or more fetus (11/13/2024 11:24 AM EDT) Anatomical Region Laterality Modality OB-BOX LIDDER Ultrasound us Not In System Ref Prov IMG US ORDERABLES Final R esult * Ultrasound limited 1 or more fetus (11/13/2024 11:22 AM EDT) Anatomical Region Laterality Modality OB-BOX LIDDER Ultrasound us Not In System Ref Prov IMG US ORDERABLES Final R esult documented in this encounter Visit Diagnoses Not on filedocumented in this encounter
--- OUTSIDE RECORDS SUMMARY | 2024-12-12 19:02 | XMS_ITS | Clinical Summary ---
Author Organization [facility] Address [address] [place] [address] Care Team Providers Care Lumber Stacker Name Role Phone Adebayo Solares MD Primary Care Provider + [phone] Allergies No known active allergies Medications omeprazole (PriLOSEC) [address] capsule Take 20 mg by mouth in the morning. Take before meals. Active aspirin 81 MG EC tablet Take 81 mg by mouth in the morning. Active Alcohol Swabs (Alcohol Prep Pad) 70 % padsIndications: Gestational diabetes mellitus (GDM), antepartum, gestational diabetes method of control unspecified ([facility]),Elevat ed glucose tolerance test Apply 1 Pad topically Daily Use four times daily to check FSBS. 150 each 3 5 Active Blood Glucose Monitoring Suppl (D-Care Glucometer) [...] 3 each 1 5 01/02/20 25 Active Lancets Ultra Thin miscIndications: Gestational diabetes mellitus (GDM), antepartum, gestational diabetes method of control unspecified ([facility]),Elevat ed glucose tolerance test 1 each by In Vitro route Daily Use to check FSBS four times daily 150 each 3 5 12/11/19 25 Glucose Blood (Blood Glucose Test) stripIndications :Gestational diabetes mellitus (GDM), antepartum, gestational diabetes method of control unspecified ([facility]),Elevat ed glucose tolerance test 1 strip by In Vitro route Daily Use in the morning prior to breakfast, 1 hour after each meal for a total of 4times daily. 150 strip 3 5 12/11/19 25 Encounters Date Type Department Care Team Description 12/12/20[place] [address] Kenn Hannon, DO 12/06/2024 Clinisync Result Encounter [facility] External Department Unsolicited Kenn Hannon, DO 12/02/2024 8:40 [place] [address] Kenn Hannon, Third trimester ([facility]); 33 weeks gestation of ([facility]); Gestational diabetes mellitus (GDM), antepartum, gestational diabetes method of control unspecified ([facility]) 12/02/2024 [place] [address] Kenn Hannon, DO 11/27/2024 Clinisync Result Encounter [facility] External Department Unsolicited Kenn Hannon, DO 11/20/2024 [place] [address] Kenn Hannon, DO 11/18/2024 8:50 [place] [address] Kenn Hannon, Third trimester ([facility]); 31 weeks gestation of ([facility]); Gestational diabetes mellitus (GDM), antepartum, gestational diabetes method of control unspecified ([facility]) 11/18/2024 [place] [address] Katarzyna Malagon LPN 11/18/2024 Bamboo [place]sheet [place] [address] Kenn Hannon, DO 11/14/2024 Clinisync Result Encounter [facility] External Department Unsolicited Kenn Hannon, DO 11/10/2024 [place] [address] Kenn Hannon, DO 11/10/2024 [place] [address] Kenn Hannon, DO 11/10/2024 Clinisync Result Encounter [facility] External Department Unsolicited Kenn Hannon, DO 11/03/2024 3:10 [place] [address] Kenn Hannon, DO 29 weeks gestation of ([facility]); Third trimester ([facility]); Encounter for follow-up ultrasound of anatomy ([facility]) 11/03/2024 Bamboo [place]sheet [place] [address] Kenn Hannon, DO 10/31/2024 Clinisync Result Encounter [facility] External Department Unsolicited Maureen Feliz PA 10/21/2024 8:30 AM EDT Routine [place] [address] Maureen Feliz PA Size of fetus inconsistent with dates in second trimester ([facility]) (Primary Dx); Second trimester ([facility]); 27 weeks gestation of ([facility]) 10/21/2024 Bamboo flowsheet [facility] [address] [place] [address] [place] [id number] Maureen Feliz PA 10/20/2024 Travel 09/16/2024 9:30 AM EDT Routine [facility] [address] Kenn Hannon, Second trimester ([facility]); 22 weeks gestation of ([facility]); Elevated glucose tolerance test 09/16/2024 8:30 AM EDT Ancillary Procedure [facility] [phone] Screening, , for anatomic survey ([facility]) from Last 3 Months Family History Medical History Relation Name Comments Arthritis Father Adebayo Marco Diabetes Father Adebayo Marco Hyperlipidemia Father Adebayo Marco Hypertension Father Adebayo Marco Kidney disease Father Adebayo Marco Stroke Father Adebayo Marco Diabetes Maternal Grandfather James Mendon Hypertension Maternal Grandmother Sandy Mendon Diabetes Paternal Grandfather Rito Marco Kidney disease Paternal Grandfather Rito Marco Relation Name Status Comments Father Adebayo Marco Maternal Grandfather James Mendon Maternal Grandmother Sandy Lissa Paternal Grandfather Rito Marco Social History Tobacco [...] 12/16/2024 1:10 PM EDT Routine [facility] [address] [place] [address] [place] [address] Maureen Feliz, PA [address] [place] [address] 12/23/2024 11:30 AM EDT Routine [facility] [address] [place] [address] [place] [address] Kenn Hannon DO [address] [facility] [address] [place] [address] 12/30/2024 8:30 AM EDT Routine [facility] [address] [place] [address] [place] [address] Maureen Feliz, PA [address] [place] [address] 01/06/2025 9:10 AM EDT Routine [facility] [address] [place] [address] [place] [address] Kenn Hannon DO [address] [facility] [address] [place] [address] Health Maintenance Due Date Last Done Comments Influenza Vaccine (#1) 2024 , 02/12/2023, 02/03/2022, Additional history exists Cervical Cancer Screening 12/12/2028 HPV/Cotest 12/12/2028 Pap Smear 12/12/2028 12/13/2023, 05/17/2012 Procedures Procedure Name Priority Date/Time Associated Diagnosis Comments US OB BPP W NON-STRESS 12/06/2024 5:01 PM EDT POCT URINALYSIS DIPSTICK Routine 12/02/2024 9:04 AM EDT Third trimester ([facility]) 33 weeks gestation of ([facility]) US OB BPP W NON-STRESS 11/27/2024 11:40 PM EDT POCT URINALYSIS DIPSTICK Routine 11/18/2024 10:23 AM EDT Third trimester ([facility]) 31 weeks gestation of ([facility]) US OB INCOMPLETE ANATOMY 11/14/2024 10:06 AM EDT GLUCOSE TOLERANCE 3 HOUR Routine 11/10/2024 8:45 AM EDT POCT URINALYSIS DIPSTICK Routine 11/03/2024 3:12 PM EDT 29 weeks gestation of ([facility]) Third trimester ([facility]) US OB GROWTH 10/31/2024 7:41 AM EDT POCT URINALYSIS DIPSTICK Routine 10/21/2024 8:49 AM EDT Second trimester ([facility]) 27 weeks gestation of ([facility]) POCT URINALYSIS DIPSTICK Routine 09/16/2024 9:55 AM EDT Second trimester ([facility]) US OB 14+ WEEKS ANATOMY SCAN Routine 09/16/2024 9:34 AM EDT Screening, , for anatomic survey ([facility]) PAP SMEAR Routine 12/13/2023 12:00 AM EDT from Last 3 Months or Most Recently Relevant to Health Maintenance Results * US OB BPP W NON-STRESS (12/06/2024 5:01 PM EDT) Only the most recent of2 resultswithin the time period is included. Anatomical Region Laterality Modality Other 12/06/2024 5:01 PM EDT Narrative 12/06/2024 8:16 [place] [address] Ultrasound Report Signed Patient: JAVID PRASAD MR#: [id number] : 1990 Acct:[id number] Age/Sex: 33 / F ADM Date: 12/05/24 Loc: US Attending Dr: Kenn Hannon D.O. Ordering Physician: Kenn Hannon D.O. Date of Service: 12/05/24 Procedure(s): US OB BPP w non-stress Accession Number(s): [id number] cc: Kenn Hannon D.O.; ADEBAYO SOLARES D.O. [address] [address] Patient Name: JAVID PRASAD MRN: [id number] date: 1990 Sex: F Assigned Patient Location: [facility] Current Patient Location: [facility] Accession/Order Number: [id number] Exam Date: 12/05/2024 19:12 Report Date: 12/06/2024 [...] Mcdermott M.D. 12/06/2024 5:01 PM Dictation Location: [place] [address] Electronically authenticated by: [id number] Y Date: 12/06/2024 17:01 Dictated By: Tutu Mcdermott M.D. Signed By: 12/06/242015 DD/ 00 TD/TT: Golf Course Ranger: Procedure Note Radiology, Radiologist, MD - 12/06/2024 [place] [address] Ultrasound Report Signed Patient: JAVID PRASAD DMR#: [id number] : 1990Acct:[id number] Age/Sex: 33 / FADM Date: 12/05/24 Loc: US Attending Dr: Kenn Hannon D.O. Ordering Physician: Kenn Hannon D.O. Date of Service: 12/05/24 Procedure(s): US OB BPP w non-stress Accession Number(s): [id number] cc: Kenn Hannon D.O.; ADEBAYO SOLARES D.O. The [place] [id number] Patient Name: JAVID PRASAD MRN: [id number] date: 1990 Sex: F Assigned Patient Location: [facility] Current Patient Location: [facility] Accession/Order Number: [id number] Exam Date: 12/05/2024 19:12 Report Date: 12/06/2024 [...] Mcdermott M.D. 12/06/2024 5:01 PM Dictation Location: [place] [address] Electronically authenticated by: [id number] Y Date: 7:01 Dictated By: Tutu Mcdermott M.D. Signed By:12/06/242015 DD/ 00 TD/TT: Golf Course Ranger: us Kenn Riddhi DO [facility] Final Result * (ABNORMAL) POCT urinalysis dipstick manually resulted [...] Urine 12/02/2024 9:04 AM EDT us Kenn Riddhi DO POINT OF CARE TEST ENTER/EDIT OR DERABLES Final Result * US OB INCOMPLETE ANATOMY (11/14/2024 10:06 AM EDT) Anatomical Region Laterality Modality Other 11/14/2024 10:0 6 AM EDT Narrative 11/14/2024 10:09 AM EDT [address] [address] Ultrasound Report Signed Patient: JAVID PRASAD MR#: [id number] : 1990 Acct:[id number] Age/Sex: 33 / F ADM Date: 11/13/24 Loc: US Attending Dr: Kenn Hannon D.O. Ordering Physician: Kenn Hannon D.O. Date of Service: 11/13/24 Procedure(s): US OB incomplete anatomy Accession Number(s): [id number] cc: Kenn Hannon D.O.; ADEBAYO SOLARES D.O. [place] [id number] Patient Name: JAVID PRASAD MRN: [id number] date: 1990 Sex: F Assigned Patient Location: US Current Patient Location: Accession/Order Number: [id number] Exam Date: 11/14/2024 09:56 Report Date: 11/14/2024 [...] Jr., D.O. 11/14/2024 10:06 AM Dictation Location: [place] [address] Electronically authenticated by: [id number] Y Date: 11/14/2024 10:06 Dictated By: Mark Anthony Conner M.D. Signed By: 11/14/24 1009 DD/ 1006 TD/TT: Golf Course Ranger: Procedure Note Radiology, Radiologist, MD - 11/14/2024 The [place] [id number] Ultrasound Report Signed Patient: JAVID PRASAD DMR#: [id number] : 1990Acct:[id number] Age/Sex: 33 / FADM Date: 11/13/24 Loc: US Attending Dr: Kenn Hannon D.O. Ordering Physician: Kenn Hannon D.O. Date of Service: 11/13/24 Procedure(s): US OB incomplete anatomy Accession Number(s): [id number] cc: Kenn Hannon D.O.; ADEBAYO SOLARES D.O. The [place] [id number] Patient Name: JAVID PRASAD MRN: [id number] date: 1990 Sex: F Assigned Patient Location: US Current Patient Location: Accession/Order Number: [id number] Exam Date: 11/14/2024 09:56 Report Date: 11/14/2024 [...] Jr., D.O. 11/14/2024 10:06 AM Dictation Location: [place] [address] Electronically authenticated by: [id number] Y Date: 0:06 Dictated By: Mark Anthony Conner M.D. Signed By:11/14/24 1009 DD/ 1006 TD/TT: Golf Course Ranger: us Kenn Riddhi DO [facility] Final [...] DO LAB BLOOD ORDERABLES Final Resul t [facility] * US OB GROWTH (10/31/2024 7:41 AM EDT) Anatomical Region Laterality Modality Other 10/31/2024 7:41 AM EDT Narrative 10/31/2024 7:44 AM EDT [address] [address] Ultrasound Report Signed Patient: JAVID PRASAD MR#: [id number] : 1990 Acct:[id number] Age/Sex: 33 / F ADM Date: 10/30/24 Loc: US Attending Dr: Maureen Feliz Ordering Physician: Maureen Feliz Date of Service: 10/30/24 Procedure(s): US OB growth Accession Number(s): [id number] cc: Maureen Feliz; ADEBAYO SOLARES D.O. The [address] [address] Patient Name: JAVID PRASAD MRN: [id number] date: 1990 Sex: F Assigned Patient Location: Current Patient Location: Accession/Order Number: [id number] Exam Date: 10/31/2024 07:37 Report Date: 10/31/2024 [...] Crow M.D. 10/31/2024 7:41 AM Dictation Location: [place] [address] Electronically authenticated by: [id number] Y Date: 10/31/2024 07:41 Dictated By: Katarzyna Crow M.D. Signed By: 10/31/24 0744 DD/ 0741 TD/TT: Golf Course Ranger: Procedure Note Radiology, Radiologist, - 10/31/2024 [place] [address] Ultrasound Report Signed Patient: JAVID PRASAD [facility]#: [id number] : 1990Acct:[id number] Age/Sex: 33 / FADM Date: 10/30/24 Loc: US Attending Dr: Maureen Feliz Ordering Physician: Maurene Feliz Date of Service: 10/30/24 Procedure(s): US OB growth Accession Number(s): [id number] cc: Maureen Feliz; ADEBAYO SOLARES D.O. The [place] [id number] Patient Name: JAVID PRASAD MRN: [id number] date: 1990 Sex: F Assigned Patient Location: Current Patient Location: Accession/Order Number: [id number] Exam Date: 10/31/2024 07:37 Report Date: 10/31/2024 [...] Crow M.D. 10/31/2024 7:41 AM Dictation Location: [place] [address] Electronically authenticated by: [id number] Y Date: 507:41 Dictated By: Katarzyna Crow M.D. Signed By:10/31/24 0744 DD/ 0741 TD/TT: Golf Course Ranger: us Maureen SINGLETON [facility] Final Result [...] II, MD, PHD at 18-Sep-2024 08:49:14 AM [facility] Procedure Note Thomas Olivares MD - [...] signed by THOMAS OLIVARES II, MD, PHD [email or web address] 08:49:14 AM [facility] us Maureen SINGLETON IMG OB US PROCEDURES Final Resul t * Pap Smear (12/13/2023 12:00 AM EDT) Swab Cervical swab / Unknown us Kenn Hannon DO LAB CYTOLOGY ORDERABLES Final Re sult EXTERNAL LAB from Last 3 Months or Most Recently Relevant to Health Maintenance Insurance Care Teams Lumber Stacker Relationship Specialty Start Date End Date Adebayo Solares MD [facility] [place] [address] PCP - General Family Medicine 11/19/23
--- OUTSIDE RECORDS SUMMARY | 2024-12-12 19:02 | XMS_ITS | Clinical Summary ---
Author Organization [employer] tem Address [facility] [id number] [address] [place] [address] Care Team Providers Care Production Machine Computer Operator Name Role Phone Unavailable Primary Care [...] subcutaneou sly, prime 2 units 15 mL 11 12/10/19 25 Active insulin glargine (LANTUS SOLOSTAR U-100 INSULIN) 100 unit/mL (3 mL) insulin pen Inject 10 units of insulin in the evening, subcutaneou sly, prime 2 units 15 mL 11/29/19 25 025 Discontinued(Re order) insulin glargine (LANTUS SOLOSTAR U-100 INSULIN) 100 unit/mL (3 mL) insulin pen Inject 12 units of insulin in the evening, subcutaneou sly, prime 2 units 15 mL 11 12/04/19 25 025 Discontinued Encounters Date Type Department Care Team Description 12/11/2024 Travel 12/09/2024 Telephone Maternal- Medicine at [facility] [address] [place] [address] Yojana Diehl, HALEY 12/09/[address] [facility] - Labor [address] [place] [address] Mary Scanlon PA-C 12/03/2024 Telephone Maternal- Medicine at [facility] [address] [place] [address] Juli Quezada, ENE 12/03/2024 Orders Only Maternal- Medicine at [facility] [address] [place] [address] Hanny Ware, MARCEL-OUTLET MANAGER 11/28/2024 11:30 AM EDT Office Visit Maternal- Medicine at [facility] [address] [place] [address] Priscila Granados MD Insulin controlled gestational diabetes mellitus (GDM) in third trimester (Primary Dx); Prediabetes in mother during ; Family history of type 2 diabetes mellitus; Obesity affecting , antepartum, unspecified obesity type; 32 weeks gestation of 11/28/2024 Travel 11/26/2024 Documentation Maternal- Medicine at [facility] [address] [place] [address] Yojana Diehl, HALEY 11/26/2024 Telephone Maternal- Medicine at [facility] [address] [place] [address] Yojana Diehl, HALEY 11/25/2024 Telephone Maternal- Medicine at [facility] [address] [place] [address] Naomie Huber LD 11/25/2024 Telephone Maternal- Medicine at [facility] [address] [place] [address] Naomie Huber LD 11/24/2024 Orders Only Maternal- Medicine at [facility] [address] [place] [address] Ref Prov, Not In System 11/24/2024 Abstract Maternal- Medicine at [facility] [address] [place] [address] External, Scanning Provider 11/20/2024 10:30 AM EDT Telemedicine Maternal- Medicine at [facility] [address] [place] [address] Miroslava Trinidad RN Crawford, Sarah, Naomie Bishop LD Gestational diabetes mellitus (GDM) in second trimester, gestational diabetes method of control unspecified 11/20/2024 Travel 11/13/2024 Orders Only Maternal- Medicine at [facility] [address] [place] [address] Ref Prov, Not In System 11/13/2024 Abstract Maternal- Medicine at [facility] [address] [place] [address] Provider, Generic External Data from Last 3 [...] Telemedicine Maternal- Medicine at [facility] [address] [place] [address] Hanny Ware, PAPER GUILLOTINE OPERATOR-OUTLET MANAGER [address] [place] [address] Health Maintenance Due Date Last Done Comments [...] Procedure Name Priority Date/Time Associated Diagnosis Comments [facility] COMPREHENSIVE ANATOMIC SURVEY Routine 12/11/2024 1:48 PM EDT Screening, , for anatomic survey POCT HEMOGLOBIN A1C Routine 11/28/2024 1 2:05 PM EDT Insulin controlled gestational diabetes mellitus (GDM) in third trimester US PREG LMTD 1 OR MORE FETUS Routine 11/13/2024 11:25 AM EDT US PREG LMTD 1 OR MORE FETUS Routine 11/13/2024 11:24 AM EDT US PREG LMTD 1 OR MORE FETUS Routine 11/13/2024 11:22 AM EDT from Last 3 Months Results * US MFM COMPREHENSIVE ANATOMIC SURVEY (12/11/2024 1:48 PM EDT) Anatomical Region Laterality Modality OB-TECHNICIAN Ultrasound 12/11/2024 1:18 PM EDT Narrative 12/11/2024 2:46 PM EDT NAME: IOANA HUA : 1990 SEX: F Accession Number: [id number] ORDERING PHYSICIAN: KENN HANNON REFERRING PHYSICIAN: KENN HANNON Coding ----- --------- Procedures 40223: Ultrasound, uterus, real time with image documentation, and maternal evaluation plus detailed anatomic examination, transabdominal approach;single or first gestation Indication ----- --------- Screening for Anatomic Survey , Gestational diabetes, Obesity in . History ----- --------- OB History 1. Para 0 [id number] Maternal Assessment ----- --------- Physical Exam Height 183 cm, 6 ft. Weight 133 kg, 293 lb. Initial weight 127 kg, 279 lb. BMI 39.74 kg/m . Initial BMI 37.84 kg/m . Weight gain 6 kg, 14 lb Method ----- --------- Transabdominal ultrasound examination. View: Suboptimal view: limited by late gestational age and maternal body habitus. Images of optimal diagnostic quality could not be obtained. ----- --------- Hutson . Number of fetuses: 1 Dating ----- --------- LMP on: 04/12/2024 GA by LMP 34 w + 5 d WILLIE by LMP: 01/17/2025 Previous Ultrasound on: 06/19/2024 Type of prior assessment: GA GA at prior assessment date 9 w + 1 d GA by previous U/S 34 w + 1 d WILLIE by previous Ultrasound: 01/21/2025 Ultrasound examination on: 12/11/2024 GA by U/S based upon: AC, BPD, Femur, HC GA by U/S 36 w + 1 d WILLIE by U/S: 01/07/2025 Assigned: based on the LMP, selected on 12/11/2024 Assigned GA (weeks days) 34 w + 5 d Assigned WILLIE: 01/17/2025 General Evaluation ----- --------- Cardiac activity Present. FHR 126 bpm. Presentation: cephalic Placenta: Placental site: anterior, away from cervical os Umbilical cord: Cord vessels: 3 vessel cord. Insertion site: not examined Amniotic fluid: Amount of AF: normal amount. MVP 6.7 cm Biometry ----- --------- Standard BPD 89.0 mm 36w 0d 84% Hadlock OFD 109.3 mm 36w 1d 82% Cindy HC 316.4 mm 35w 4d 35% Hadlock Cerebellum tr 45.0 mm 34w 4d 33% Hill AC 323.0 mm 36w 2d 90% Hadlock Femur 71.6 mm 36w 5d 87% Hadlock Humerus 60.8 mm 35w 1d 80% Cindy HC / AC 0.98 EFW 2,885 g 85% Hadlock EFW (lb) 6 lb EFW (oz) 6 oz EFW by: Hadlock ([id number]) Extended Tibia 60.4 mm 35w 1d 83% Cindy CM 4.5 mm <1% Nicolaides Head / Face / Neck Cephalic index 0.81 58% Nicolaides Nasal bone: not examined Extremities / Bony Struc FL / BPD 0.80 FL / HC 0.23 FL / AC 0.22 Other Structures FHR 126 bpm Anatomy ----- --------- The following structures appear normal: Head/Neck: Cranium. Cavum septi pellucidi. Cerebellum. Cisterna magna. Parenchyma. Vermis. Heart/Thorax: Situs. Cardiac position. Cardiac axis. Cardiac size. Cardiac rhythm. Abdomen: Abdom. wall. Stomach. Kidneys. Bladder. Small bowel. Large bowel. Right renal artery. Left renal artery. Extremities/Skeleton: Right upper arm. Right forearm. Right upper leg. Right lower leg. Skeleton The following structures could not be adequately visualized: Head / Neck Choroid plexus. Midline falx. Heart / Thorax 4-chamber view. 3-vessel view. 1-gtcmfl-bdgolzp view. Bicaval view. Interventricular septum. Great vessels. Diaphragm. Spine: Cervical spine. Thoracic spine. Lumbar spine. Sacral spine. Extremities / Left upper arm. Left forearm. Left upper leg. Left lower leg. Skeleton The following structures could not be examined: Head / Neck Lateral ventricles. Neck. Face: Lips. Profile. Nose. Nasal bone. Maxilla. Mandible. Orbits. Heart / Thorax RVOT view. LVOT view. Aortic arch view. Ductal arch view. Right lung. Left lung. Abdomen Cord insertion. Genitals. Extremities / Right hand. Left hand. Right foot. Left foot. Skeleton Maternal Structures ----- --------- Uterus Visualized Cervix Suboptimal Approach - Transabdominal Right Ovary Not visualized Left Ovary Not visualized Cul de Sac Suboptimal Impression ----- --------- Single viable intrauterine consistent with 34w 5d with an WILLIE of 01/17/2025 with EFW measuring at the 85%. AC measures at the 90%. Amniotic fluid MVP measures 6.7 cm. Recommendations ----- --------- anatomic survey is incomplete due to late gestational age and suboptimal visualization. Patient is not scheduled to return for additional ultrasound. Please reschedule for specific concerns or indications. Subsequent follow up or other follow up as clinically determined by primary OB provider unless otherwise specified by MFM. Results forwarded to ordering provider so they can follow up with the patient as necessary. Procedure Note Adan Treviño MD - 12/11/2024 NAME: IOANA HUA : 1990 SEX: F Accession Number: [id number] ORDERING PHYSICIAN: KENN HANNON REFERRING PHYSICIAN: KENN HANNON Coding ----- --------- Procedures [id number]: Ultrasound, uterus, real time with imagedocumentation, and maternal evaluation plus detailed anatomic examination, transabdominalapproach;single or first gestation Indication ----- --------- Screening for Anatomic Survey , Gestational diabetes, Obesity inpregnancy. History ----- --------- OB History 1. Para 0 [id number] Maternal Assessment ----- --------- Physical Exam Height 183 cm, 6 ft. Weight 133 kg, 293 lb. Initial beqstl854 kg, 279 lb. BMI 39.74 kg/m . Initial BMI 37.84 kg/m . Weight gain 6 kg, 14 lb Method ----- --------- Transabdominal ultrasound examination. View: Suboptimal view: limited bylate gestational age and maternal body habitus. Images of optimal diagnostic quality could not be obtained. ----- --------- Hutson . Number of fetuses: 1 Dating ----- --------- LMP on: 04/12/2024 GA by LMP 34 w + 5 d WILLIE by LMP: 01/17/2025 Previous Ultrasound on: 06/19/2024 Type of prior assessment: GA GA at prior assessment date 9 w + 1 d GA by previous U/S 34 w + 1 d WILLIE by previous Ultrasound: 01/21/2025 Ultrasound examination on: 12/11/2024 GA by U/S based upon: AC, BPD, Femur, HC GA by U/S 36 w + 1 d WILLIE by U/S: 01/07/2025 Assigned: based on the LMP, selected on 12/11/2024 Assigned GA (weeks days) 34 w + 5 d Assigned WILLIE: 01/17/2025 General Evaluation ----- --------- Cardiac activity Present. FHR 126 bpm. Presentation: cephalic Placenta: Placental site: anterior, away from cervical os Umbilical cord: Cord vessels: 3 vessel cord. Insertion site: notexamined Amniotic fluid: Amount of AF: normal amount. MVP 6.7 cm Biometry ----- --------- Standard BPD 89.0 mm 36w 0d 84% Hadlock OFD 109.3 mm 36w 1d 82% Cindy HC 316.4 mm 35w 4d 35% Hadlock Cerebellum tr 45.0 mm 34w 4d 33% Hill AC 323.0 mm 36w 2d 90% Hadlock Femur 71.6 mm 36w 5d 87% Hadlock Humerus 60.8 mm 35w 1d 80% Cindy HC / AC 0.98 EFW 2,885 g 85% Hadlock EFW (lb) 6 lb EFW (oz) 6 oz EFW by: Hadlock ([id number]-FL) Extended Tibia 60.4 mm 35w 1d 83% Cindy CM 4.5 mm <1% Nicolaides Head / Face / Neck Cephalic index 0.81 58% Nicolaides Nasal bone: not examined Extremities / Bony Struc FL / BPD 0.80 FL / HC 0.23 FL / AC 0.22 Other Structures FHR 126 bpm Anatomy ----- --------- The following structures appear normal: Head/Neck: Cranium. Cavum septi pellucidi. Cerebellum. Cisterna magna.Parenchyma. Vermis. Heart/Thorax: Situs. Cardiac position. Cardiac axis. Cardiac size. Cardiacrhythm. Abdomen: Abdom. wall. Stomach. Kidneys. Bladder. Small bowel. Large bowel.Right renal artery. Left renal artery. Extremities/Skeleton: Right upper arm. Right forearm. Right upper leg.Right lower leg. Skeleton The following structures could not be adequately visualized: Head / Neck Choroid plexus. Midline falx. Heart / Thorax 4-chamber view. 3-vessel view. 5-yilqeq-hrdwmnt view.Bicaval view. Interventricular septum. Great vessels. Diaphragm. Spine: Cervical spine. Thoracic spine. Lumbar spine. Sacral spine. Extremities / Left upper arm. Left forearm. Left upper leg. Left lowerleg. Skeleton The following structures could not be examined: Head / Neck Lateral ventricles. Neck. Face: Lips. Profile. Nose. Nasal bone. Maxilla. Mandible. Orbits. Heart / Thorax RVOT view. LVOT view. Aortic arch view. Ductal arch view. Right lung. Left lung. Abdomen Cord insertion. Genitals. Extremities / Right hand. Left hand. Right foot. Left foot. Skeleton Maternal Structures ----- --------- Uterus Visualized Cervix Suboptimal Approach - Transabdominal Right Ovary Not visualized Left Ovary Not visualized Cul de Sac Suboptimal Impression ----- --------- Single viable intrauterine consistent with 34w 5d with an WILLIE of01/17/2025 with EFW measuring at the 85%. AC measures at the 90%. Amniotic fluid MVP measures 6.7 cm. Recommendations ----- --------- anatomic survey is incomplete due to late gestational age andsuboptimal visualization. Patient is not scheduled to return for additional ultrasound. Please reschedule for specific concerns orindications. Subsequent follow up or other follow up as clinically determined byprimary OB provider unless otherwise specified by [employer]. Results forwarded to ordering provider so they can follow up with thepatient as necessary. us Kenn Hannon DO [facility] US ORDERABLES Final Result * POCT Hemoglobin A1c (11/28/2024 12:05 PM [...] period is included. Anatomical Region Laterality Modality OB-TECHNICIAN Ultrasound us Not In System Ref Prov IMG US ORDERABLES Final R esult from Last 3 Months Insurance [facility]
[2024-12-12 19:51] VITALS: BP 134/68; PULSE 53
== END 2024-12-12 20:15 | disposition home or self-care (01) ==
LOC: US 18:58 → FBC 19:01
PROVIDERS: PCP Family Medicine; Visit Provider Obstetrics & Gynecology
DX: O24.419 Gestational diabetes mellitus in pregnancy, unspecified control (principal); Z3A.34 34 weeks gestation of pregnancy
CPT/HCPCS: 76818

== ENCOUNTER 2024-12-16 17:01 | Outpatient (OUT) | payer BC, SELFPAY ==
--- OUTSIDE RECORDS SUMMARY | 2024-12-02 08:40 | XMS_ITS | Encounter Summary ---
Author Organization [facility] Address [address] [facility] [place] [address] Care Team Providers Care Rn Enterostomal Name Role Phone Adebayo Quinones MD Primary Care Provider + [phone] Reason for Visit * Reason Comments Routine Visit Encounter Details Date Type Department Care Team (Late st Contact Info) Description 12/02/2024 8:40 AM EDT Routine [facility] [address] [place] [address] Miguel Hannon DO [address] [facility] [address] [place], [facility] Third trimester ([facility]); 33 weeks gestation of ([facility]); Gestational diabetes mellitus (GDM), antepartum, gestational diabetes method of control unspecified ([facility]) Social History Tobacco Use Types Packs/Day Years [...] mg, Daily RT Blood Glucose Monitoring Suppl (Bantr Glucometer) w/Device kit 1 kit, Does not [...] Father Adebayo Marco Diabetes Maternal Grandfather James [place] Hypertension Maternal Grandmother Sandy [place] Diabetes Paternal Grandfather Rito Marco Kidney disease [...] nursing note reviewed. Exam conducted with a home care aide present. Vitals: Estimated body mass index is 39.3 kg/m?? as calculated from the following: Height as of 01/16/24: 6'. Weight as of this encounter: 289 lb 12.8 oz. BP: 114/76 Patient's last menstrual period was 04/12/2024. ASSESSMENT & PLAN ICD-10-CM 1. Third trimester ([facility]) Z34.93 POCT urinalysis dipstick manually resulted 2. 33 weeks gestation of ([facility]) Z3A.33 POCT urinalysis dipstick manually resulted 3. Gestational diabetes mellitus (GDM), antepartum, gestational diabetes method of control unspecified ([facility]) O24.419 Continuous Glucose Sensor (Dexcom G7 Sensor) [facility] Return [facility]: Patient presents today for a routine obstetrics appointment. Patient is currently 33w3d . Patient states she is doing well but has complaints of being tired due to current . Patient has verbalizes frequent movement. labor precautions was discussed/given and patient was instructed to perform kick counts three times a day. Pt to have repeat anatomy scan at [facility] on 12/11. Discussed delivery between 37-39 [...] Care Team (Late st Contact Info) Description 12/23/2024 11:30 AM EDT Routine [facility] [address] [place] [address] [place] [address] Miguel Hannon, [address] [facility] [place] [address] 12/30/2024 8:30 AM EDT Routine [facility] [address] [place] [address] [place] [address] Maureen Mitchell PA [address] [place] [address] 01/06/2025 9:10 AM EDT Routine [facility] [address] [place] [address] [place] [address] Miguel Hannon, [address] [place] [address] documented as of this encounter Procedures Procedure Name Priority Date/Time Associated Diagnosis Comments POCT URINALYSIS DIPSTICK Routine 12/02/2024 9:04 AM EDT Third trimester ([facility]) 33 weeks gestation of ([facility]) documented in this encounter Results * (ABNORMAL) POCT urinalysis dipstick manually resulted (12/02/2024 9:04 AM EDT) Color, UA Yellow Clarity, UA Clear Glucose, UA Negative Negative - 1999(110) ++++ mg/dL Bilirubin, UA Negative Negative - 4(70) +++ mg/dL Ketones, UA Negative Negative - 160(16) ++++ mg/dL Spec Grav, UA 1.025 1 - 1.03 Blood, UA Negative Negative - 50 Osmin/mcL pH, UA 6.0 5 - 9 Protein, UA Negative Negative - 1999(20) ++++ mg/dL Urobilinogen, UA 1.0 0.2 - 12 mg/dL Leukocytes, UA Positive Negative - 500+++ Oumou/mcL Nitrite, UA Negative Negative - Positive Urine 12/02/2024 9:04 AM EDT Miguel Hannon DO POINT OF CARE TEST ENTER/EDIT OR DERABLES Final Result documented in this encounter Visit Diagnoses Diagnosis Third trimester ([facility]) state, incidental 33 weeks gestation of ([facility]) Gestational diabetes mellitus (GDM), antepartum, gestational diabetes method of control unspecified ([facility]) documented in this encounter Care Teams Rn Enterostomal Relationship Specialty Start Date End Date Adebayo Quinones MD [facility] [place] [address] PCP - General Family Medicine 11/19/23 documented as of this encounter
--- OUTSIDE RECORDS SUMMARY | 2024-12-16 13:10 | XMS_ITS | Encounter Summary ---
Author Organization [facility] Address [address] [facility] [place] [address] Care Team Providers Care Stud Beef Cattle Farmer Name Role Phone Adebayo Quinones MD Primary Care Provider + [phone] Reason for Visit * Reason Comments Routine Visit Encounter Details Date Type Department Care Team (Late st Contact Info) Description 12/16/2024 1:10 PM EDT Routine [facility] [address] [address] Maureen Mitchell PA [address] [place] [address] 35 weeks gestation of ([facility]); Third trimester ([facility]); Gestational diabetes mellitus (GDM), antepartum, gestational diabetes method of control unspecified ([facility]) Social History Tobacco Use Types Packs/Day Years [...] mg, Daily RT Blood Glucose Monitoring Suppl ([employer] Glucometer) w/Device kit 1 kit, Does not [...] Grandfather James Lissa Hypertension Maternal Grandmother Sandy Sheridan Diabetes Paternal Grandfather Rito Marco Kidney disease [...] PLAN ICD-10-CM 1. 35 weeks gestation of ([facility]) Z3A.35 POCT urinalysis dipstick manually resulted 2. Third trimester ([facility]) Z34.93 POCT urinalysis dipstick manually resulted 3. Gestational diabetes mellitus (GDM), antepartum, gestational diabetes method of control unspecified ([facility]) O24.419 Return OB: Patient presents today for [...] 11:30 AM EDT Routine [facility] [address] [place] [address] [place] [phone] Miguel Hannon, DO [address] [place], [place] [id number] 12/30/2024 8:30 AM EDT Routine [facility] [address] [place] [address] [place] [phone] Maureen Mitchell PA [address] [place], [place] [id number] 01/06/2025 9:10 AM EDT Routine [facility] [address] [place] [address] [place] [phone] Miguel Hannon, [address] [place] [address] documented as of this encounter Procedures Procedure Name Priority Date/Time Associated Diagnosis Comments POCT URINALYSIS DIPSTICK Routine 12/16/2024 1:15 PM EDT 35 weeks gestation of ([facility]) Third trimester ([facility]) documented in this encounter Results * (ABNORMAL) [...] Visit Diagnoses Diagnosis 35 weeks gestation of ([facility]) Third trimester ([facility]) state, incidental Gestational diabetes mellitus (GDM), antepartum, gestational diabetes method of control unspecified ([facility]) documented in this encounter Care Teams Stud Beef Cattle Farmer Relationship Specialty Start Date End Date Adebayo Quinones MD [address] [place] [address] PCP - General Family Medicine 11/19/23 documented as of this encounter
--- OUTSIDE RECORDS SUMMARY | 2024-12-16 17:03 | XMS_ITS | Encounter Summary ---
Author Organization [facility] Address [address] [facility] [place] [address] Care Team Providers Care Weaver Axminster Name Role Phone Adebayo Quinones MD Primary Care Provider + [phone] Encounter Details Date Type Department Care Team (Late st Contact Info) Description 11/18/2024 Telephone [facility] [place] [address] Katarzyna Malagon LPN Social History Tobacco [...] 11/18/2024 9:26 AM EDT Please refer to [facility] for completion of anatomy scan, RVOT and LVOT and lips not evaluated. documented in this encounter Plan of Treatment Upcoming Encounters Date Type Department Care Team (Late st Contact Info) Description 12/23/2024 11:30 AM EDT Routine [facility] [address] [place] [address] Miguel Hannon, DO [address] [place] [address] 12/30/2024 8:30 AM EDT Routine [facility] [address] [place] [address] [place] [phone] Maureen Mitchell PA [address] [place] [address] 01/06/2025 9:10 AM EDT Routine [facility] [address] [place] [address] [place] [address] Miguel Hannon, [address] [place] [address] documented as of this encounter Visit Diagnoses Not on filedocumented in this encounter Care Teams Weaver Axminster Relationship Specialty Start Date End Date Adebayo Quinones MD [address] [place] [id number] PCP - General Family Medicine 11/19/23 documented as of this encounter
--- OUTSIDE RECORDS SUMMARY | 2024-12-16 17:03 | XMS_ITS | Clinical Summary ---
Author Organization [facility] Address [address] [place] [address] Care Team Providers Care Bag Shop Worker Name Role Phone Adebayo Quinones DO Primary Care Provider [phone] Allergies No known active allergies Medications omeprazole [...] Description 11/24/2024 3:30 PM EDT Ancillary Procedure [facility] [address] [place] [address] Awareness of heartbeats 11/12/2024 Orders Only [facility] [address] [facility] [place] [address] Yoseph Mcintosh MD 10/22/2024 1:50 AM EDT Ancillary Procedure [facility] [address] [place] [address] Awareness of heartbeats 10/22/2024 Orders Only [facility] [address] [place] [address] Janell Felton MD 10/21/2024 10:00 AM EDT Office Visit [facility] [address] [place] [address] Yoseph Mcintosh MD Palpitations (Primary Dx) from [...] this topic Medical Devices Implanted Type Area Software Engineer Backend Device Identifier Shelf Expiration Date Model / Serial / Lot Monitor,Cardi ac,Lux,Dxii+I - [id number] - [id number] Implanted:Qty : 1 on 06/18/2023 by Yoseph Mcintosh MD at [facility] Implantable Loop Recorder Left: Chest POTATOSOFT 11/26/2024 [id number] / [id number] / Procedures Procedure Name Priority Date/Time Associated [...] Yoseph Mcintosh MD CV IMPLANTABLE CARDIAC DEVICE [place] OCEDURES Final Result CPACS * Cardiac device check - Remote loop recorder (ILR) (11/12/2024 12:00 AM EDT) Only the most recent of2 resultswithin the time period is included. Anatomical Region Laterality Modality Other 11/12/2024 us Yoseph Mcintosh MD CV IMPLANTABLE CARDIAC DEVICE [place] OCEDURES Final Result from Last 3 Months Insurance Care Teams Bag Shop Worker Relationship Specialty Start Date End Date Adebayo Quinones DO [address] [place] [address] PCP - General 11/14/22
--- OUTSIDE RECORDS SUMMARY | 2024-12-16 17:03 | XMS_ITS | Encounter Summary ---
Author Organization [facility] Address [address] [place] [address] Care Team Providers Care Senior Front End Web Developer Name Role Phone Adebayo Quinones MD Primary Care Provider [phone] Encounter Details Date Type Department Care Team (Late Contact Info) Description 12/16/2024 Bamboo flowsheet [facility] [address] [place] [address] [place] [address] Maureen Mitchell PA [address] [place], [place] [address] Social History Tobacco Use Types Packs/Day Years [...] 11:30 AM EDT Routine [facility] [place] [address] Miguel Hannon DO [address] [facility] [place], [facility] 12/30/2024 8:30 AM EDT Routine [facility] [address] [facility] [place] [address] Maureen Mitchell PA [address] [place], [place] [address] 01/06/2025 9:10 AM EDT Routine [facility] [address] [facility] [place] [address] Miguel Hannon DO [address] [place], [place] [address] documented as of this encounter Visit Diagnoses Not on filedocumented in this encounter Care Teams Senior Front End Web Developer Relationship Specialty Start Date End Date Adebayo Quinones MD [address] [place] [address] PCP - General Family Medicine 11/19/23 documented as of this encounter
--- OUTSIDE RECORDS SUMMARY | 2024-12-16 17:03 | XMS_ITS | Clinical Summary ---
Author Organization [facility] Address [address] [place] [address] Care Team Providers Care Pulpwood Buyer Name Role Phone Adebayo Solares MD Primary Care Provider [phone] Allergies No known active allergies Medications omeprazole [...] Active Lantus SoloStar 100 UNIT/ML pen Inject 16 Units under the skin at bedtime 5 Active Continuous Glucose Sensor (Dexcom G7 Sensor) miscIndications: Gestational diabetes mellitus (GDM), antepartum, gestational diabetes method of control unspecified (HHS-HCC) 1 each Every 10 (ten) days 3 each 1 5 01/02/20 25 Active Lancets Ultra Thin miscIndications: Gestational diabetes mellitus (GDM), antepartum, gestational diabetes method of control unspecified ([facility]),Elevat ed glucose tolerance test 1 each by In Vitro route Daily Use to check FSBS four times daily 150 each 3 5 12/11/19 25 Glucose Blood (Blood Glucose Test) stripIndications :Gestational diabetes mellitus (GDM), antepartum, gestational diabetes method of control unspecified ([facility]),Elevat ed glucose tolerance test 1 strip by In Vitro route Daily Use in the morning prior to breakfast, 1 hour after each meal for a total of 4times daily. 150 strip 3 5 12/11/19 25 Encounters Date Type Department Care Team Description 12/16/2024 1:10 [place] [address] Maureen Feliz PA 35 weeks gestation of ([facility]); Third trimester ([facility]); Gestational diabetes mellitus (GDM), antepartum, gestational diabetes method of control unspecified ([facility]) 12/16/2024 Bamboo flowsheet [facility] [address] [place] [address] Maureen Feliz PA 12/12/2024 Clinisync Result Encounter NOMS External Department Unsolicited Kenn Hannon, DO 12/12/2024 [place] [address] Kenn Hannon, DO 12/11/2024 Abstract [facility] [address] [place] [address] Kenn Hannon, DO 12/06/2024 Clinisync Result Encounter NOMS External Department Unsolicited Kenn Hannon, DO 12/02/2024 8:40 [place] [address] Kenn Hannon, DO Third trimester ([facility]); 33 weeks gestation of ([facility]); Gestational diabetes mellitus (GDM), antepartum, gestational diabetes method of control unspecified ([facility]) 12/02/2024 Bamboo flowsheet [facility] [place] [facility] [address] [place] [address] Kenn Hannon, DO 11/27/2024 Clinisync Result Encounter NOMS External Department Unsolicited Kenn Hannon, DO 11/20/2024 Abstract [facility] [address] [facility] [place] [address] Kenn Hannon, DO 11/18/2024 8:50 AM EDT Routine [facility] OBGYGaurav [address] [place] [address] Kenn Hannon, DO Third trimester ([facility]); 31 weeks gestation of ([facility]); Gestational diabetes mellitus (GDM), antepartum, gestational diabetes method of control unspecified ([facility]) 11/18/2024 Telephone [facility] OBED [address] [place] [address] Katarzyna Malagon LPN 11/18/2024 Bamboo flowsheet [facility] [address] [facility] [place] [address] Kenn Hannon, DO 11/14/2024 Clinisync Result Encounter NOMS External Department Unsolicited Kenn Hannon, DO 11/10/2024 Abstract [facility] [facility] [address] [place] [address] Kenn Hannon, DO 11/10/2024 Telephone [facility] [address] [place] [address] Kenn Hannon, DO 11/10/2024 Clinisync Result Encounter NOMS External Department Unsolicited Kenn Hannon, DO 11/03/2024 3:10 PM EDT Routine [facility] [address] [place] [address] Kenn Hannon DO 29 weeks gestation of ([facility]); Third trimester ([facility]); Encounter for follow-up ultrasound of anatomy ([facility]) 11/03/2024 Bamboo flowsheet [facility] [address] [facility] [place] [address] Kenn Hannon DO 10/31/2024 Clinisync Result Encounter NOMS External Department Unsolicited Maureen Feliz PA 10/21/2024 8:30 AM EDT Routine [facility] [address] Maureen Feliz PA Size of fetus inconsistent with dates in second trimester ([facility]) (Primary Dx); Second trimester ([facility]); 27 weeks gestation of ([facility]) 10/21/2024 Bamboo flowsheet [facility] [address] [facility] [place] [address] Maureen Feliz PA 10/20/2024 Travel 09/16/2024 9:30 AM EDT Routine [facility] [address] [facility] [place] [address] Kenn Hannon DO Second trimester ([facility]); 22 weeks gestation of ([facility]); Elevated glucose tolerance test 09/16/2024 8:30 AM EDT Ancillary Procedure [facility] [address] [place] [address] Screening, , for anatomic survey ([facility]) from Last 3 Months Family History Medical History Relation Name Comments Arthritis Father Adebayo Marco Diabetes Father Adebayo Marco Hyperlipidemia Father Adebayo Marco Hypertension Father Adebayo Marco Kidney disease Father Adebayo Marco Stroke Father Adebayo Marco Diabetes Maternal Grandfather James Lissa Hypertension Maternal Grandmother Sandy Lissa Diabetes Paternal Grandfather Rito Marco Kidney disease Paternal Grandfather Rito Lara Relation Name Status Comments Father Adebayo Lara Maternal Grandfather James Alcaraz Maternal Grandmother Sandy Alcaraz Paternal Grandfather Rito Lara Social History Tobacco Use Types Packs/Day Years [...] Pressure 120/70 12/16/2024 1:08 PM EDT Pulse 88 11/19/2023 8:30 AM EDT Temperature - - Respiratory Rate 16 11/19/2023 8:30 AM EDT Oxygen Saturation 99% 11/19/2023 8:30 AM EDT Inhaled Oxygen Concentration - - Weight 134 kg (294 lb 12.8 oz) 12/16/2024 1:08 P M EDT Height 182.9 cm (6') 01/16/2024 4:38 PM EDT Body Mass Index 39.98 01/16/2024 4:38 PM EDT Plan of Treatment Upcoming Encounters Date Type Department Care Team (Late st Contact Info) Description 12/23/2024 11:30 AM EDT Routine [facility] [address] [place] [address] [place] [address] Kenn Hannon DO [address] [facility] [place] [address] 12/30/2024 8:30 AM EDT Routine [facility] [address] [facility] [place] [address] Maureen Feliz PA [address] [facility] [place] [address] 01/06/2025 9:10 AM EDT Routine [facility] [address] [facility] [place] [address] Kenn Hannon, DO [address] [facility] [place] [address] Health Maintenance Due Date Last Done Comments Influenza Vaccine (#1) 2024 , 02/12/2023, 02/03/2022, Additional history exists Cervical Cancer Screening 12/12/2028 HPV/Cotest 12/12/2028 Pap Smear 12/12/2028 12/13/2023, 05/17/2012 Procedures Procedure Name Priority Date/Time Associated Diagnosis Comments POCT URINALYSIS DIPSTICK Routine 12/16/2024 1:15 PM EDT 35 weeks gestation of ([facility]) Third trimester ([facility]) US OB BPP W NON-STRESS 12/12/2024 8:20 PM EDT US OB BPP W NON-STRESS 12/06/2024 5:01 PM EDT POCT URINALYSIS DIPSTICK Routine 12/02/2024 9:04 AM EDT Third trimester ([facility]) 33 weeks gestation of ([facility]) US OB BPP W NON-STRESS 11/27/2024 11:40 PM EDT POCT URINALYSIS DIPSTICK Routine 11/18/2024 10:23 AM EDT Third trimester ([facility]) 31 weeks gestation of ([facility]) US OB INCOMPLETE ANATOMY 11/14/2024 10:06 AM EDT GLUCOSE TOLERANCE 3 HOUR Routine 11/10/2024 8:45 AM EDT POCT URINALYSIS DIPSTICK Routine 11/03/2024 3:12 PM EDT 29 weeks gestation of ([facility]) Third trimester ([facility]) US OB GROWTH 10/31/2024 7:41 AM EDT POCT URINALYSIS DIPSTICK Routine 10/21/2024 8:49 AM EDT Second trimester ([facility]) 27 weeks gestation of ([facility]) POCT URINALYSIS DIPSTICK Routine 09/16/2024 9:55 AM EDT Second trimester ([facility]) US OB 14+ WEEKS ANATOMY SCAN Routine 09/16/2024 9:34 AM EDT Screening, , for anatomic survey ([facility]) PAP SMEAR Routine 12/13/2023 12:00 AM EDT from Last 3 Months or Most Recently Relevant to Health Maintenance Results * (ABNORMAL) POCT urinalysis dipstick manually resulted (12/16/2024 1:15 PM EDT) Only the most recent of6 resultswithin the time period is included. Color, [...] Result * US OB BPP W NON-STRESS (12/12/2024 8:20 PM EDT) Only the most recent of3 resultswithin the time period is included. Anatomical Region Laterality Modality Other 12/12/2024 8:20 PM EDT Narrative 12/12/2024 8:23 [place] [address] Ultrasound Report Signed Patient: JAVID PRASAD MR#: [id number] : 1990 Acct:[id number] Age/Sex: 33 / F ADM Date: 12/12/24 Loc: [facility] 250-[address]: Kenn Hannon D.O. Ordering Physician: Kenn Hannon D.O. Date of Service: 12/12/24 Procedure(s): US OB BPP w non-stress Accession Number(s): [id number] cc: Kenn Hannon D.O.; ADEBAYO SOLARES D.O. [place] [id number] Patient Name: JAVID PRASAD MRN: [id number] date: 1990 Sex: F Assigned Patient Location: [facility] Current Patient Location: [facility] Accession/Order Number: [id number] Exam Date: 12/12/2024 19:06 Report Date: 12/12/2024 20:20 At the request of: KENN HANNON DO Procedure: US OB BPP w non-stress US OB BPP w non-stress 12/12/2024 7:55 PM SIGNS AND SYMPTOMS: 01/17/2025 GESTATIONAL DAIBETES MELLITUS O24.419 PROTOCOL: Transabdominal sonographic imaging of the gravid uterus COMPARISON: None FINDINGS: heart rate: 147 bpm Amniotic fluid index: 13.08 cm. The deepest vertical pocket measures 5.72 cm. Estimated gestational age: 34 weeks and 6 days Biophysical profile: breathing movements: 2/2 Gross body movements: 2/2 tone: 2/2 Amniotic fluid volume: 2/2 US/US OB BPP w non-stress IMPRESSION: Biophysical profile: 11/21 Impression dictated by: Tutu Mcdermott M.D. 12/12/2024 8:20 PM Dictation Location: [place] [address] Electronically authenticated by: [id number] Y Date: 12/12/2024 20:20 Dictated By: Tutu Mcdermott M.D. Signed By: 12/12/242022 DD/ 19 TD/TT: Lock Tender: Procedure Note Radiology, Radiologist, MD - 12/12/2024 [place] [address] Ultrasound Report Signed Patient: JAVID PRASAD DMR#: [id number] : 1990Acct:[id number] Age/Sex: 33 / FADM Date: 12/12/24 Loc: [facility] 250-[address]: Kenn Hannon D.O. Ordering Physician: Kenn Hannon D.O. Date of Service: 12/12/24 Procedure(s): US OB BPP w non-stress Accession Number(s): [id number] cc: Kenn Hannon D.O.; ADEBAYO SOLARES D.O. The [place] [address] Patient Name: JAVID PRASAD MRN: [id number] date: 1990 Sex: F Assigned Patient Location: [facility] Current Patient Location: [facility] Accession/Order Number: [id number] Exam Date: 12/12/2024 19:06 Report Date: 12/12/2024 20:20 At the request of: KENN HANNON DO Procedure: US OB BPP w non-stress US OB BPP w non-stress 12/12/2024 7:55 PM SIGNS AND SYMPTOMS: 01/17/2025 GESTATIONAL DAIBETES MELLITUS O24.419 PROTOCOL: Transabdominal sonographic imaging of the gravid uterus COMPARISON: None FINDINGS: heart rate: 147 bpm Amniotic fluid index: 13.08 cm. The deepest vertical pocket measures 5.72cm. Estimated gestational age: 34 weeks and 6 days Biophysical profile: breathing movements: 2/2 Gross body movements: 2/2 tone: 2/2 Amniotic fluid volume: 2/2 US/US OB BPP w non-stress IMPRESSION: Biophysical profile: 11/21 Impression dictated by: Tutu Mcdermott M.D. 12/12/2024 8:20 PM Dictation Location: [place] [address] Electronically authenticated by: [id number] Y Date: 0:20 Dictated By: Tutu Mcdermott M.D. Signed By:12/12/242022 DD/ 19 TD/TT: Lock Tender: us Kenn Hannon DO [facility] Final Result * US OB INCOMPLETE ANATOMY (11/14/2024 10:06 AM EDT) Anatomical Region Laterality Modality Other 11/14/2024 10:0 6 AM EDT Narrative 11/14/2024 10:09 [place] [address] Ultrasound Report Signed Patient: JAVID PRASAD MR#: [id number] : 1990 Acct:[id number] Age/Sex: 33 / F ADM Date: 11/13/24 Loc: US Attending Dr: Kenn Hannon D.O. Ordering Physician: Kenn Hannon D.O. Date of Service: 11/13/24 Procedure(s): US OB incomplete anatomy Accession Number(s): [id number] cc: Kenn Hannon D.O.; ADEBAYO SOLARES D.O. [place] [address] Patient Name: JAVID PRASAD MRN: [id number] date: 1990 Sex: F Assigned Patient Location: US Current Patient Location: Accession/Order Number: [id number] Exam Date: 11/14/2024 09:56 Report Date: 11/14/2024 [...] Jr., D.O. 11/14/2024 10:06 AM Dictation Location: [place] [address] Electronically authenticated by: [id number] Y Date: 11/14/2024 10:06 Dictated By: Mark Anthony Conner M.D. Signed By: 11/14/24 1009 DD/ 1006 TD/TT: Lock Tender: Procedure Note Radiology, Radiologist, MD - 11/14/2024 [place] [address] Ultrasound Report Signed Patient: JAVID PRASAD DMR#: [id number] : 1990Acct:[id number] Age/Sex: 33 / FADM Date: 11/13/24 Loc: US Attending Dr: Kenn Hannon D.O. Ordering Physician: Kenn Hannon D.O. Date of Service: 11/13/24 Procedure(s): US OB incomplete anatomy Accession Number(s): [id number] cc: Kenn Hannon D.O.; ADEBAYO SOLARES D.O. The [address] [address] Patient Name: JAVID PRASAD MRN: [id number] date: 1990 Sex: F Assigned Patient Location: US Current Patient Location: Accession/Order Number: [id number] Exam Date: 11/14/2024 09:56 Report Date: 11/14/2024 [...] Jr., D.O. 11/14/2024 10:06 AM Dictation Location: [place] [address] Electronically authenticated by: [id number] Y Date: 0:06 Dictated By: Mark Anthony Conner M.D. Signed By:11/14/24 1009 DD/ 1006 TD/TT: Lock Tender: us Kenn Hannon DO [facility] Final Result * (ABNORMAL) [...] Narrative [facility] - 11/10/2024 12:29 PM EDT Kenn Riddhi DO LAB BLOOD ORDERABLES Final Resul t [facility] * US OB GROWTH (10/31/2024 7:41 AM EDT) Anatomical Region Laterality Modality Other 10/31/2024 7:41 AM EDT Narrative 10/31/2024 7:44 AM EDT [address] [address] Ultrasound Report Signed Patient: JAVID PRASAD MR#: [id number] : 1990 Acct:[id number] Age/Sex: 33 / F ADM Date: 10/30/24 Loc: US Attending Dr: Maureen Feliz Ordering Physician: Maureen Feliz Date of Service: 10/30/24 Procedure(s): US OB growth Accession Number(s): [id number] cc: Maureen Feliz; ADEBAYO SOLARES D.O. [address] [address] Patient Name: JAVID PRASAD MRN: [facility]:[id number] date: 1990 Sex: F Assigned Patient Location: Current Patient Location: Accession/Order Number: [id number] Exam Date: 10/31/2024 07:37 Report Date: 10/31/2024 [...] 10/31/2024 7:41 AM Dictation Location: [place] [address] Electronically authenticated by: [id number] Y Date: 10/31/2024 07:41 Dictated By: Katarzyna Crow M.D. Signed By: 10/31/24 0744 DD/ 0741 TD/TT: Lock Tender: Procedure Note Radiology, Radiologist, MD - 10/31/2024 [place] [address] Ultrasound Report Signed Patient: JAVID PRASAD DMR#: [id number] : 1990Acct:[id number] Age/Sex: 33 / FADM Date: 10/30/24 Loc: US Attending Dr: Maureen Feliz Ordering Physician: Maureen Feliz Date of Service: 10/30/24 Procedure(s): US OB growth Accession Number(s): [id number] cc: Maureen Feliz; ADEBAYO SOLARES D.O. The [address] [address] Patient Name: JAVID PRASAD MRN: [id number] date: 1990 Sex: F Assigned Patient Location: Current Patient Location: Accession/Order Number: [id number] Exam Date: 10/31/2024 07:37 Report Date: 10/31/2024 [...] 10/31/2024 7:41 AM Dictation Location: [place] [address] Electronically authenticated by: [id number] Y Date: 7:41 Dictated By: Katarzyna Crow M.D. Signed By:10/31/24 0744 DD/ TD/TT: Lock Tender: us Maureen SING[facility]TON [facility] Final Result [...] II, MD, PHD at 18-Sep-2024 08:49:14 AM [facility] Procedure Note Thomas Olivares MD - [...] signed by THOMAS OLIVARES II, MD, PHD [id number] 08:49:14 AM [facility] us Maureen S[facility]TON IMG OB US PROCEDURES Final Resul t * Pap Smear (12/13/2023 12:00 AM EDT) Swab Cervical swab / Unknown us Kenn Hannon DO LAB CYTOLOGY ORDERABLES Final Re sult EXTERNAL LAB from Last 3 Months or Most Recently Relevant to Health Maintenance Insurance BS Care Teams Pulpwood Buyer Relationship Specialty Start Date End Date Adebayo Solares MD [address] [place] [id number] PCP - General Family Medicine 11/19/23
--- OUTSIDE RECORDS SUMMARY | 2024-12-16 17:03 | XMS_ITS | Encounter Summary ---
Author Organization [facility] Address [address] [facility] [place] [address] Care Team Providers Care Meal Room Hand Name Role Phone Adebayo Quinones MD Primary Care Provider [phone] Encounter Details Date Type Department Care Team (Late Contact Info) Description 12/25/2023 Abstract [facility] [address] [place], [place] [address] [address] Miguel Hannon DO [facility] [place], [place] [address] Social History Tobacco Use Types Packs/Day Years [...] Department Care Team (Late Contact Info) Description 12/23/2024 11:30 AM EDT Routine [facility] [address] [place] [address] Miguel Hannon DO [facility] [place], [facility] 12/30/2024 8:30 AM EDT Routine [facility] [place] [address] Maureen Mithcell PA [address] [facility] [place] [address] 01/06/2025 9:10 AM EDT Routine [facility] [place] [facility] [address] [facility] [place] [address] Miguel Hannon DO [address] [facility] [place] [address] documented as of this encounter Visit Diagnoses Not on filedocumented in this encounter Care Teams Meal Room Hand Relationship Specialty Start Date End Date Adebayo Quinones MD [address] [place] [address] PCP - General Family Medicine 11/19/23 documented as of this encounter
--- OUTSIDE RECORDS SUMMARY | 2024-12-16 17:03 | XMS_ITS | Encounter Summary ---
Author Organization [facility] tem Address [id number] [address] [place] [address] Care Team Providers Care Plant Wire Chief Name Role Phone Unavailable Primary Care Provider Unavailabl e Encounter Details Date Type Department Care Team (Late st Contact Info) Description 12/03/2024 Telephone Maternal- Medicine at [facility] [address] [facility] [place] [address] Juli Quezada LD Social History [...] units each evening. Will send patient a [employer] message as well and asked patient to confirm with us via phone or Edmodohart that she received the dose change information. documented in this encounter Plan of Treatment Upcoming Encounters Date Type Department Care Team (Late st Contact Info) Description 12/18/2024 8:00 AM EDT Telemedicine Maternal- Medicine at [facility] [address] [place] [address] Hanny Ware, WAREHOUSE TRAFFIC SUPERVISOR-ANALYTICAL LABORATORY TECHNICIAN [address] [place] [address] documented as of this encounter Visit Diagnoses Not on filedocumented in this encounter
--- OUTSIDE RECORDS SUMMARY | 2024-12-16 17:03 | XMS_ITS | Encounter Summary ---
Author Organization [facility] Address [address] [facility] [place] [address] Care Team Providers Care Data Architect Manager Name Role Phone Adebayo Quinones MD Primary Care Provider [phone] Encounter Details Date Type Department Care Team (Late Contact Info) Description 11/20/2024 Abstract [facility] Jairo HERNANDEZ [facility] [place] [address] Miguel Hannon DO [facility] [place], [facility]11 Social History Tobacco Use Types Packs/Day [...] 12/23/2024 11:30 AM EDT Routine NOMJosh HERNANDEZ [facility] [place] [address] Miguel Hannon DO [facility] [place], [facility]11 12/30/2024 8:30 AM EDT Routine [facility]OMS Jairo OBGYN [address] [address] Maureen Mitchell PA [address] [facility] [address] [place], [place] [address] 01/06/2025 9:10 AM EDT Routine [facility]S Jairo OBGYN [address] [place] [address] Miguel Hannon DO [address] [facility] [address] [place], [place] [address] documented as of this encounter Visit Diagnoses Not on filedocumented in this encounter Care Teams Data Architect Manager Relationship Specialty Start Date End Date Adebayo Quinones MD [address] [place] [address] PCP - General Family Medicine 11/19/23 documented as of this encounter
--- OUTSIDE RECORDS SUMMARY | 2024-12-16 17:03 | XMS_ITS | Encounter Summary ---
Author Organization [facility] tem Address [facility]-[id number] [address] [place] [address] Care Team Providers Care Disability Liaison Officer Name Role Phone Unavailable Primary Care Provider Unavailabl e Encounter Details Date Type Department Care Team (Late st Contact Info) Description 12/09/2024 Orders Only [facility] - Labor [address] [place] [address] Mary Scanlon, PAEveC [address] [address] Social History Tobacco Use Types Packs/Day Years [...] 8:00 AM EDT Telemedicine Maternal- Medicine at [facility] [address] [place] [address] Hanny Ware, SWITCHBOARD OPERATOR SUPERVISOR-TECHNICAL ACCOUNT REPRESENTATIVE [address] [place] [address] documented as of this encounter Visit Diagnoses Not on filedocumented in this encounter
--- OUTSIDE RECORDS SUMMARY | 2024-12-16 17:03 | XMS_ITS | Encounter Summary ---
Author Organization [facility] [employer] tem Address [facility]-[id number] [address] [place] [address] Care Team Providers Care Value Engineer Name Role Phone Unavailable Primary Care Provider Unavailabl e Encounter Details Date Type Department Care Team (Late Contact Info) Description 11/24/2024 Orders Only Maternal- Medicine at [facility] [address] [place] [address] Ref Prov, [place] [address] Social History Tobacco Use Types Packs/Day Years [...] Medicine at [facility] [address] [place] [address] Hanny Ware, SUPERVISOR WATERPROOFING-THREAD DRAWER [address] [place], [place] [phone] documented as of this encounter Visit Diagnoses Not on filedocumented in this encounter
--- OUTSIDE RECORDS SUMMARY | 2024-12-16 17:03 | XMS_ITS | Encounter Summary ---
Author Organization [facility] Address [address] [facility] [place] [address] Care Team Providers Care Socket Welder Helper Name Role Phone Adebayo Solares MD Primary Care Provider [phone] Encounter Details Date Type Department Care Team (Late st Contact Info) Description 12/12/2024 Clinisync Result Encounter NOMS External Department Unsolicited Kenn Hannon DO [address] [place], [facility]11 Social History Tobacco Use Types [...] AM EDT Routine [facility]OM[facility] Jairo HERNANDEZ [address] [place] [address] Kenn Hannon DO [address] [place] [address] 12/30/2024 8:30 AM EDT Routine [facility] Jairo HERNANDEZ [address] [place] [address] Maureen Mitchell PA [address] [facility] [address] [place], [facility]11 01/06/2025 9:10 AM EDT Routine [facility]S Adams ASHLEYGYN [address] [place] [address] Kenn Hannon DO [address] [facility] [address] [place], [facility]11 documented as of this encounter Procedures Procedure Name Priority Date/Time Associated Diagnosis Comments US OB BPP W NON-STRESS 12/12/2024 8:20 PM EDT documented in this encounter Results * US OB BPP W NON-STRESS (12/12/2024 8:20 PM EDT) Anatomical Region Laterality Modality Other 12/12/2024 8:20 PM EDT Narrative 12/12/2024 8:23 [place] [address] Ultrasound Report Signed Patient: JAVID TRIPLETT MR#: [id number] : 1990 Acct:[id number] Age/Sex: 33 / F ADM Date: 12/12/24 Loc: [facility] 250-[address]: Kenn Hannon D.O. Ordering Physician: Kenn Hannon D.O. Date of Service: 12/12/24 Procedure(s): US OB BPP w non-stress Accession Number(s): [id number] cc: Kenn Hannon D.O.; ADEBAYO SOLARES D.O. The [address] [address] Patient Name: JAVID TRIPLETT MRN: [id number] date: 1990 Sex: F Assigned Patient Location: [facility] Current Patient Location: [facility] Accession/Order Number: [id number] Exam Date: 12/12/2024 19:06 Report Date: 12/12/2024 [...] Mcdermott M.D. 12/12/2024 8:20 PM Dictation Location: [place] [address] Electronically authenticated by: [id number] Y Date: 12/12/2024 20:20 Dictated By: Tutu Mcdermott M.D. Signed By: 12/12/242022 DD/ 19 TD/TT: Dowel Setting Machine Operator: Procedure Note Radiology, Radiologist, - 12/12/2024 [place] [address] Ultrasound Report Signed Patient: JAVID TRIPLETT DMR#: [id number] : 1990Acct:[id number] Age/Sex: 33 / FADM Date: 12/12/24 Loc: [facility] 250-[address]: Kenn Hannon D.O. Ordering Physician: Kenn Hannon D.O. Date of Service: 12/12/24 Procedure(s): US OB BPP w non-stress Accession Number(s): [id number] cc: Kenn Hannon D.O.; ADEBAYO SOLARES D.O. The [place] [id number] Patient Name: JAVID TRIPLETT MRN: [id number] date: 1990 Sex: F Assigned Patient Location: [facility] Current Patient Location: [facility] Accession/Order Number: [id number] Exam Date: 12/12/2024 19:06 Report Date: 12/12/2024 [...] Mcdermott M.D. 12/12/2024 8:20 PM Dictation Location: [place] [address] Electronically authenticated by: [id number] Y Date: 0:20 Dictated By: Tutu Mcdermott M.D. Signed By:12/12/242022 DD/ 19 TD/TT: Dowel Setting Machine Operator: Kenn Hannon DO [facility] Final Result documented in this encounter Visit Diagnoses Not on filedocumented in this encounter Care Teams Socket Welder Helper Relationship Specialty Start Date End Date Adebayo Solares MD [address] [place] [address] [phone] PCP - General Family Medicine 11/19/23 documented as of this encounter
--- OUTSIDE RECORDS SUMMARY | 2024-12-16 17:03 | XMS_ITS | Encounter Summary ---
Author Organization [facility] tem Address [facility]-[id number] [address] [place] [address] Care Team Providers Care Plsql Developer Name Role Phone Unavailable Primary Care Provider [...] 8:00 AM EDT Telemedicine Maternal- Medicine at [facility] [address] [place] [address] Hanny Ware, MANUFACTURING LEADER-PEER FINANCIAL COUNSELOR [address] [place] [address] documented as of this encounter Visit Diagnoses Not on filedocumented in this encounter
--- OUTSIDE RECORDS SUMMARY | 2024-12-16 17:03 | XMS_ITS | Encounter Summary ---
Author Organization [facility] Address [address] [facility] [place] [place] [address] Care Team Providers Care Community Health Program Coordinator Name Role Phone Adebayo Quinones MD Primary Care Provider [phone] Encounter Details Date Type Department Care Team (Late Contact Info) Description 12/11/2024 Abstract [facility]OMS Jairo HERNANDEZ [facility] [place] [address] Miguel Hannon DO [facility] [place], [facility]11 Social History Tobacco Use Types Packs/Day [...] 12/23/2024 11:30 AM EDT Routine NOMJosh HERNANDEZ [facility] [place] [address] Miguel Hannon DO [facility] [place], [facility]11 12/30/2024 8:30 AM EDT Routine [facility] Jairo OBGYN [address] [facility] [place] [address] Maureen Mitchell PA [address] [facility] [address] [place], [place] [address] 01/06/2025 9:10 AM EDT Routine [facility]S Jairo OBGYN [address] [facility] [place] [address] Miguel Hannon DO [address] [facility] [address] [place], [place] [address] documented as of this encounter Visit Diagnoses Not on filedocumented in this encounter Care Teams Community Health Program Coordinator Relationship Specialty Start Date End Date Adebayo Quinones MD [address] [place] [address] PCP - General Family Medicine 11/19/23 documented as of this encounter
--- OUTSIDE RECORDS SUMMARY | 2024-12-16 17:03 | XMS_ITS | Encounter Summary ---
Author Organization [facility] Address [address] [facility] [place] [address] Care Team Providers Care Manager Front Office Name Role Phone Adebayo Quinones MD Primary Care Provider [phone] Encounter Details Date Type Department Care Team (Late Contact Info) Description 12/12/2024 Abstract [facility] Jairo HERNANDEZ [facility] [place] [address] Miguel Hannon DO [facility] [place], [facility]11 Social History Tobacco Use Types Packs/Day Years [...] 12/23/2024 11:30 AM EDT Routine NOMJosh HERNANDEZ [facility] [place] [address] Miguel Hannon DO [facility] [place], [facility]11 12/30/2024 8:30 AM EDT Routine NOMS Jairo OBGYN [address] [facility] [address] Maureen Mitchell PA [address] [facility] [address] [place], [place] [address] 01/06/2025 9:10 AM EDT Routine NOMS Jairo OBGYN [address] [facility] [address] Miguel Hannon DO [address] [facility] [address] [place], [place] [id number] documented as of this encounter Visit Diagnoses Not on filedocumented in this encounter Care Teams Manager Front Office Relationship Specialty Start Date End Date Adebayo Quinones MD [address] [place] [address] PCP - General Family Medicine 11/19/23 documented as of this encounter
--- OUTSIDE RECORDS SUMMARY | 2024-12-16 17:03 | XMS_ITS | Encounter Summary ---
Author Organization [facility] tem Address [facility]-[id number] [address] [place] [address] Care Team Providers Care Bariatric Program Coordinator Name Role Phone Unavailable Primary Care Provider Unavailabl e Encounter Details Date Type Department Care Team (Late st Contact Info) Description 12/03/2024 Orders Only Maternal- Medicine at [facility] [address] [place] [address] Hanny Ware, INTERNATIONAL BANKER-HYDROGRAPHICAL TECHNICAL OFFICER [address] [place] [address] Social History Tobacco Use Types Packs/Day Years [...] AM EDT Telemedicine Maternal- Medicine at [facility] [address] [place] [address] Hanny Ware, INTERNATIONAL BANKER-HYDROGRAPHICAL TECHNICAL OFFICER [address] [place] [address] documented as of this encounter Visit Diagnoses Not on filedocumented in this encounter
--- OUTSIDE RECORDS SUMMARY | 2024-12-16 17:03 | XMS_ITS | Encounter Summary ---
Author Organization [facility] [employer] [facility] tem Address [facility]-[id number] [address] [place] [address] Care Team Providers Care Party Plan Sales Director Name Role Phone Unavailable Primary Care Provider Unavailabl e Encounter Details Date Type Department Care Team (Late st Contact Info) Description 11/13/2024 Orders Only Maternal- Medicine at [facility] [address] [place] [address] Ref Prov, [place] [address] Social History Tobacco Use Types Packs/Day Years [...] 8:00 AM EDT Telemedicine Maternal- Medicine at [facility] [address] [place] [address] Hanyn Ware, BOARD DESIGN ENGINEER-CIVIL DRAFTSMAN [address] [place] [address] documented as of this encounter Procedures Procedure [...] 11:25 AM EDT) Anatomical Region Laterality Modality OB-COMMUNICATIONS CONSULTANT Ultrasound us Not In System Ref Prov IMG US ORDERABLES Final R esult * Ultrasound limited 1 or more fetus (11/13/2024 11:24 AM EDT) Anatomical Region Laterality Modality OB-COMMUNICATIONS CONSULTANT Ultrasound us Not In System Ref Prov IMG US ORDERABLES Final R esult * Ultrasound limited 1 or more fetus (11/13/2024 11:22 AM EDT) Anatomical Region Laterality Modality OB-COMMUNICATIONS CONSULTANT Ultrasound us Not In System Ref Prov IMG US ORDERABLES Final R esult documented in this encounter Visit Diagnoses Not on filedocumented in this encounter
--- OUTSIDE RECORDS SUMMARY | 2024-12-16 17:03 | XMS_ITS | Encounter Summary ---
Author Organization [facility] Address [address] [place] [address] Care Team Providers Care Financial Compliance Officer Name Role Phone Adebayo Quinones DO Primary Care Provider [phone] Encounter Details Date Type Department Care Team (Late st Contact Info) Description 08/21/2024 Orders Only [facility] [address] [place] [address] Janell Felton MD [address] [place] [address] Social History Tobacco Use Types [...] filedocumented in this encounter Care Teams Financial Compliance Officer Relationship Specialty Start Date End Date Adebayo Quinones DO [address] [place] [address] PCP - General 11/14/22 documented as of this encounter
--- OUTSIDE RECORDS SUMMARY | 2024-12-16 17:03 | XMS_ITS | Encounter Summary ---
Author Organization [facility] [employer] [facility] tem Address [id number] [address] [place] [address] Care Team Providers Care Systems Manager Name Role Phone Unavailable Primary Care Provider Unavailabl e Encounter Details Date Type Department Care Team (Late st Contact Info) Description 12/09/2024 Telephone Maternal- Medicine at [facility] [address] [facility] [place] [place] [address] Yojana Diehl, HALEY Social History [...] 8:00 AM EDT Telemedicine Maternal- Medicine at [facility] [address] [place] [address] Hanny Ware, GIS PROGRAMMER-DOLL MAKER [address] [place] [address] documented as of this encounter Visit Diagnoses Not on filedocumented in this encounter
--- OUTSIDE RECORDS SUMMARY | 2024-12-16 17:03 | XMS_ITS | Encounter Summary ---
Author Organization [facility] Address [address] [facility] [place] [address] Care Team Providers Care Farm Instructor Name Role Phone Adebayo Quinones MD Primary Care Provider [phone] Encounter Details Date Type Department Care Team (Late Contact Info) Description 12/13/2023 Abstract NOMJosh HERNANDEZ [facility] [place] [address] Miguel Hannon DO [facility] [place], [place] [address] Social History Tobacco Use Types Packs/Day Years [...] EDT Routine NOMJosh HERNANDEZ [address] [place] [address] Miguel Hannon DO [facility] [place], [facility]11 12/30/2024 8:30 AM EDT Routine NOMJosh HERNANDEZ [facility] [address] Maureen Mitchell PA [address] [facility] [place] [address] 01/06/2025 9:10 AM EDT Routine NOMS Jairo HERNANDEZ [address] [facility] [place] [address] Miguel Hannon DO [address] [facility] [place] [address] documented as of this encounter Visit Diagnoses Not on filedocumented in this encounter Care Teams Farm Instructor Relationship Specialty Start Date End Date Adebayo Quinones MD [address] [place] [address] PCP - General Family Medicine 11/19/23 documented as of this encounter
--- OUTSIDE RECORDS SUMMARY | 2024-12-16 17:03 | XMS_ITS | Encounter Summary ---
Author Organization [facility] Address [address] [place] [facility] [place] [address] Care Team Providers Care Trauma Program Manager Name Role Phone Adebayo Quinones MD Primary Care Provider [phone] Encounter Details Date Type Department Care Team (Late Contact Info) Description 12/02/2024 Bamboo flowsheet NOMS Jairo HERNANDEZ [facility] [place] [address] Miguel Hannon DO [facility] [place], [place] [address] Social History Tobacco Use Types Packs/Day Years [...] 11:30 AM EDT Routine NOMS Jairo HERNANDEZ [facility] [place] [address] Miguel Hannon DO [facility] [place], [place] [id number] 12/30/2024 8:30 AM EDT Routine NOMS Jairo OBGYN [address] [place] [address] Maureen Mitchell PA [address] [facility] [address] [place], [place] [address] 01/06/2025 9:10 AM EDT Routine NOMS Jairo OBGYN [address] [place] [address] Miguel Hannon DO [address] [facility] [address] [place], [place] [address] documented as of this encounter Visit Diagnoses Not on filedocumented in this encounter Care Teams Trauma Program Manager Relationship Specialty Start Date End Date Adebayo Quinones MD [address] [place] [address] PCP - General Family Medicine 11/19/23 documented as of this encounter
--- OUTSIDE RECORDS SUMMARY | 2024-12-16 17:03 | XMS_ITS | Clinical Summary ---
Author Organization [employer] tem Address [facility] [place]-[id number] [address] [place] [address] Care Team Providers Care Insolvency Consultant Name Role Phone Unavailable Primary Care Provider [...] 12/11/2024 Travel 12/09/2024 Telephone Maternal- Medicine at [facility] [address] [place] [address] Yojana Diehl, HALEY 12/09/2024 Orders Only [facility] - Labor [address] [place] [address] Mary Scanlon PA-C 12/03/2024 Telephone Maternal- Medicine at [facility] [address] [place] [address] Juli Quezada, ENE 12/03/2024 Orders Only Maternal- Medicine at [facility] [address] [place] [address] Hanny Ware, MARCEL-MIXED CROP AND LIVESTOCK FARMER 11/28/2024 11:30 AM EDT Office Visit Maternal- Medicine at [facility] [address] [place] [address] Priscila Granados MD Insulin controlled gestational diabetes mellitus (GDM) in third trimester (Primary Dx); Prediabetes in mother during ; Family history of type 2 diabetes mellitus; Obesity affecting , antepartum, unspecified obesity type; 32 weeks gestation of 11/28/2024 Travel 11/26/2024 Documentation Maternal- Medicine at [facility] [address] [place] [address] Yojana Diehl, HALEY 11/26/2024 Telephone Maternal- Medicine at [facility] [address] [place] [address] Yojana Diehl, HALEY 11/25/2024 Telephone Maternal- Medicine at [facility] [address] [place] [address] Naomie Huber LD 11/25/2024 Telephone Maternal- Medicine at [facility] [address] [place] [address] Naomie Huber LD 11/24/2024 Orders Only Maternal- Medicine at [place] [address] [place] [address] Ref Prov, Not In System 11/24/2024 Abstract Maternal- Medicine at [place] [address] [place] [address] External, Scanning Provider 11/20/2024 10:30 AM EDT Telemedicine Maternal- Medicine at [place] [address] [place] [address] Miroslava Trinidad RN Crawford, Sarah, Naomie Bishop LD Gestational diabetes mellitus (GDM) in second trimester, gestational diabetes method of control unspecified 11/20/2024 Travel 11/13/2024 Orders Only Maternal- Medicine at [place] [address] [place] [address] Ref Prov, Not In System 11/13/2024 Abstract Maternal- Medicine at [place] [address] [place] [address] Provider, Generic External Data from Last 3 [...] 8:00 AM EDT Telemedicine Maternal- Medicine at [facility] [address] [place] [address] Hanny Ware, PRESS OPERATOR AUTOMATIC-MIXED CROP AND LIVESTOCK FARMER [address] [place] [address] Health Maintenance Due Date Last Done Comments [...] Procedure Name Priority Date/Time Associated Diagnosis Comments [facility] COMPREHENSIVE ANATOMIC SURVEY Routine 12/11/2024 1:48 [...] 1:48 PM EDT) Anatomical Region Laterality Modality OB-LIMEHOUSE WORKER Ultrasound 12/11/2024 1:18 PM EDT Narrative 12/11/2024 2:46 PM EDT NAME: IOANA HUA : 1990 SEX: F Accession Number: [id number] ORDERING PHYSICIAN: KENN HANNON REFERRING PHYSICIAN: KENN HANNON Coding ----- --------- Procedures 52010: Ultrasound, uterus, real time with image documentation, and maternal evaluation plus detailed anatomic examination, transabdominal approach;single or first gestation Indication ----- --------- Screening for Anatomic Survey , Gestational diabetes, Obesity in . History ----- --------- OB History 1. Para 0 [id number] Maternal Assessment ----- --------- Physical Exam Height [...] EFW (oz) 6 oz EFW by: Hadlock (KOK-NO-OP-FL) Extended Tibia 60.4 mm 35w 1d 83% [...] Heart / Thorax 4-chamber view. 3-vessel view. 9-vsihjr-fordtme view. Bicaval view. Interventricular septum. Great vessels. [...] HUA : 1990 SEX: F Accession Number: [id number] ORDERING PHYSICIAN: KENN HANNON REFERRING PHYSICIAN: KENN HANNON Coding ----- --------- Procedures 95101: Ultrasound, uterus, real time with imagedocumentation, and maternal evaluation plus detailed anatomic examination, transabdominalapproach;single or first gestation Indication ----- --------- Screening for Anatomic Survey , Gestational diabetes, Obesity inpregnancy. History ----- --------- OB History 1. Para 0 [id number] Maternal Assessment ----- --------- Physical Exam Height 183 cm, 6 ft. Weight 133 kg, 293 lb. Initial llfmki410 kg, 279 lb. BMI 39.74 kg/m . [...] EFW (oz) 6 oz EFW by: Hadlock (OQM-WJ-MS-FL) Extended Tibia 60.4 mm 35w 1d 83% [...] Heart / Thorax 4-chamber view. 3-vessel view. 8-rpmidi-timmguh view.Bicaval view. Interventricular septum. Great vessels. Diaphragm. [...] byprimary OB provider unless otherwise specified by [facility]. Results forwarded to ordering provider so they can follow up with thepatient as necessary. us Kenn Hannon DO [facility] US ORDERABLES Final Result * POCT Hemoglobin [...] period is included. Anatomical Region Laterality Modality OB-LIMEHOUSE WORKER Ultrasound us Not In System Ref Prov IMG US ORDERABLES Final R esult from Last 3 Months Insurance [facility]
--- OUTSIDE RECORDS SUMMARY | 2024-12-16 17:03 | XMS_ITS | Encounter Summary ---
Author Organization [facility] Address [address], [address] [place] [address] Care Team Providers Care Electronic Gluer Name Role Phone Unavailable Primary Care Provider Unavailabl e Reason for Referral * Other (Routine) - Closed Specialty Diagnoses / Procedures Referred By Contac t Referred To Contact Cardiology Diagnoses Palpitations Syncope and collapse Procedures Tilt Table Test Clarence Wolf APRN - CNP Phone: tel: fax: Referral ID Status Reason Start Date Expiration Date Visits Re quested Visits Authorized [id number] Closed 11/16/2022 11/16/2023 1 1 Encounter Details Date Type Department Care Team (Latest Contact Info) Description 11/16/2022 Transcribe Orders [facility] [address] [place] [address] Clarence Wolf APRN - CNP [address] [place] [address] Palpitations (Primary Dx); Syncope and collapse Social [...]
--- OUTSIDE RECORDS SUMMARY | 2024-12-16 17:03 | XMS_ITS | Encounter Summary ---
Author Organization [facility] Address [address] [facility] [place] [address] Care Team Providers Care Media Clerk Name Role Phone Adebayo Quinones MD Primary Care Provider [phone] Encounter Details Date Type Department Care Team (Late Contact Info) Description 04/04/2024 Abstract NOM[facility] HERNANDEZ [facility] [place] [address] Miguel Hannon DO [facility] [employer] [place], [place] [address] Social History Tobacco Use Types Packs/Day Years [...] EDT Routine NOMJosh HERNANDEZ [address] [place] [address] Miguel Hannon DO [facility] [place], [id number] 12/30/2024 8:30 AM EDT Routine NOM[facility] HERNANDEZ [facility] [place] [address] Maureen Mitchell PA [address] [facility] [place] [address] 01/06/2025 9:10 AM EDT Routine [facility] Jairo HERNANDEZ [address] [facility] [address] Miguel Hannon DO [address] [facility] [place] [address] documented as of this encounter Visit Diagnoses Not on filedocumented in this encounter Care Teams Media Clerk Relationship Specialty Start Date End Date Adebayo Quinones MD [address] [place] [address] PCP - General Family Medicine 11/19/23 documented as of this encounter
--- OUTSIDE RECORDS SUMMARY | 2024-12-16 17:03 | XMS_ITS | Encounter Summary ---
Author Organization [facility] Address [address] [place] [address] Care Team Providers Care Clarity Developer Name Role Phone Adebayo Quinones DO Primary Care Provider [phone] Encounter Details Date Type Department Care Team (Late st Contact Info) Description 10/22/2024 Orders Only [facility] [address] [place] [address] Janell Felton MD [address] [place] [address] Social History Tobacco Use Types [...] on filedocumented in this encounter Care Teams Clarity Developer Relationship Specialty Start Date End Date Adebayo Quniones DO [address] [place] [address] PCP - General 11/14/22 documented as of this encounter
--- OUTSIDE RECORDS SUMMARY | 2024-12-16 17:03 | XMS_ITS | Encounter Summary ---
Author Organization [facility] Address [address] [facility] [place] [address] Care Team Providers Care Rougher For Cement Name Role Phone Adebayo Solares MD Primary Care Provider [phone] Encounter Details Date Type Department Care Team (Late st Contact Info) Description 12/06/2024 Clinisync Result Encounter NOMS External Department Unsolicited Kenn Hannon DO [address] [place], [facility]11 Social History Tobacco Use Types Packs/Day [...] Routine [facility] Jairo HERNANDEZ [address] [place] [address] Kenn Hannon DO [address] [place] [address] 12/30/2024 8:30 AM EDT Routine [facility] Jairo HERNANDEZ [address] [place] [address] Maureen Mitchell PA [address] [place] [address] 01/06/2025 9:10 AM EDT [facility] [address] [place] [address] Kenn Hannon DO [address] [facility] [address] [place], [facility]11 documented as of this encounter Procedures Procedure Name Priority Date/Time Associated Diagnosis Comments US OB BPP W NON-STRESS 12/06/2024 5:01 PM EDT documented in this encounter Results * US OB BPP W NON-STRESS (12/06/2024 5:01 PM EDT) Anatomical Region Laterality Modality Other 12/06/2024 5:01 PM EDT Narrative 12/06/2024 8:16 PM EDT The [place] [id number] Ultrasound Report Signed Patient: JAIVD TRIPLETT MR#: [id number] : 1990 Acct:[id number] Age/Sex: 33 / F ADM Date: 12/05/24 Loc: US Attending Dr: Kenn Hannon D.O. Ordering Physician: Kenn Hannon D.O. Date of Service: 12/05/24 Procedure(s): US OB BPP w non-stress Accession Number(s): [id number] cc: Kenn Hannon D.O.; ADEBAYO SOLARES D.O. The [address] [address] Patient Name: JAVID TRIPLETT MRN: [id number] date: 1990 Sex: F Assigned Patient Location: FB Current Patient Location: [facility] Accession/Order Number: [id number] Exam Date: 12/05/2024 19:12 Report Date: 12/06/2024 [...] Mcdermott M.D. 12/06/2024 5:01 PM Dictation Location: [place] [address] Electronically authenticated by: [id number] Y Date: 12/06/2024 17:01 Dictated By: Tutu Mcdermott M.D. Signed By: 12/06/242015 DD/ 00 TD/TT: Design/Animation Instructor: Procedure Note Radiology, Radiologist, - 12/06/2024 [place] [address] Ultrasound Report Signed Patient: JAVID TRIPLETT DMR#: [id number] : 1990Acct:[id number] Age/Sex: 33 / FADM Date: 12/05/24 Loc: US Attending Dr: Kenn Hannon D.O. Ordering Physician: Kenn Hannon D.O. Date of Service: 12/05/24 Procedure(s): US OB BPP w non-stress Accession Number(s): [id number] cc: Kenn Hannon D.O.; ADEBAYO SOLARES D.O. The [place] [id number] Patient Name: JAVID TRIPLETT MRN: [facility]:[id number] date: 1990 Sex: F Assigned Patient Location: [facility] Current Patient Location: [facility] Accession/Order Number: [id number] Exam Date: 12/05/2024 19:12 Report Date: 12/06/2024 [...] Mcdermott M.D. 12/06/2024 5:01 PM Dictation Location: [place] [address] Electronically authenticated by: [id number] Y Date: 7:01 Dictated By: Tutu Mcdermott M.D. Signed By:12/06/242015 DD/ 00 TD/TT: Design/Animation Instructor: us Kenn Hannon DO [facility] Final Result documented in this encounter Visit Diagnoses Not on filedocumented in this encounter Care Teams Rougher For Cement Relationship Specialty Start Date End Date Adebayo Solares MD [address] [place] [address] PCP - General Family Medicine 11/19/23 documented as of this encounter
--- OUTSIDE RECORDS SUMMARY | 2024-12-16 17:03 | XMS_ITS | Clinical Summary ---
Author Organization [facility] Address [address], [address] [place] [address] Care Team Providers Care Hand Plate Stacker Name Role Phone Unavailable Primary Care Provider [...]
--- OUTSIDE RECORDS SUMMARY | 2024-12-16 17:03 | XMS_ITS | Encounter Summary ---
Author Organization [facility] Address [address] [facility] [place] [address] Care Team Providers Care Interactive Art Director Name Role Phone Adebayo Quinones MD Primary Care Provider [phone] Encounter Details Date Type Department Care Team (Late Contact Info) Description 11/10/2024 Abstract [facility] HERNANDEZ [facility] [place] [address] Miguel Hannon DO [facility] [place], [facility]11 Social History Tobacco Use Types Packs/Day [...] 12/23/2024 11:30 AM EDT Routine NOMJosh HERNANDEZ [facility] [place] [address] Miguel Hannon DO [facility] [place], [facility]11 12/30/2024 8:30 AM EDT Routine [facility] [address] [facility] [place] [address] Maureen Mitchell PA [address] [facility] [address] [place], [place] [address] 01/06/2025 9:10 AM EDT Routine [facility] [address] [facility] [place] [address] Miguel Hannon DO [address] [facility] [address] [place], [place] [address] documented as of this encounter Visit Diagnoses Not on filedocumented in this encounter Care Teams Interactive Art Director Relationship Specialty Start Date End Date Adebayo Quinones MD [address] [place] [address] PCP - General Family Medicine 11/19/23 documented as of this encounter
--- OUTSIDE RECORDS SUMMARY | 2024-12-16 17:03 | XMS_ITS | Encounter Summary ---
Author Organization [facility] Address [address] [place] [address] Care Team Providers Care Foreign Trade Teacher Name Role Phone Adebayo Quinones DO Primary Care Provider [phone] Encounter Details Date Type Department Care Team (Late st Contact Info) Description 11/12/2024 Orders Only [facility] [address] [place] [address] Yoseph Mcintosh MD [address] [place] [address] Social History Tobacco Use Types [...] Yoseph Mcintosh MD CV IMPLANTABLE CARDIAC DEVICE OR OCEDURES Final Result documented in this encounter Visit Diagnoses Not on filedocumented in this encounter Care Teams Foreign Trade Teacher Relationship Specialty Start Date End Date Adebayo Quinones DO [address] [place] [address] PCP - General 11/14/22 documented as of this encounter
--- OUTSIDE RECORDS SUMMARY | 2024-12-16 17:10 | XMS_ITS | CCD ---
Author Organization [facility] Care Team Providers Care Aquatics Lifeguard Name Role Phone BECK, DR ADEBAYO Oropeza Primary Care Unavailable SOLARES, DR ADEBAYO Oropeza Consulting Unavailable SOLARES, DR ADEBAYO Oropeza Attending Unavailable SOLARES, DR ADEBAYO Oropeza Admitting Unavailable Zieber, DR Ge Consulting Unavailable GLATZLOUIS Consulting Unavailable SOLARES, DR ADEBAYO Oropeza Primary Care Unavailable SOLARES, DR ADEBAYO Oropeza Consulting Unavailable SOLARES, DR ADEBAYO Oropeza Attending Unavailable SOLARES, DR ADEBAYO Oroepza Admitting Unavailable Sak Adebayo SHORT Attending Unavailable SolaresAdebayo Primary Care Unavailable Jaret POLICE MANAGER-DIRECTOR OF COLLECTIONSIsabella Attending Unavaila ble SolaresAdebayo Primary Care Unavailable Jaret POLICE MANAGER-DIRECTOR OF COLLECTIONSIsabella Attending Unavaila ble SolaresAdebayo Primary Care Unavailable SolaresAdebayo Consulting Unavailable SolaresAdebayo Referring Unavailable EMEKA HERNANDEZ Referring Unavailable Solares Adebayo GOYAL Primary Care Provider [phone] Unavailable Primary Care Provider UnavailMARIANA Basilio Attending [...] HANNON Attending Unavailable MAUREEN FELIZ Attending Unavailable MIGUEL HANNON R Referring Unavailable Allergies Allergy Classification Reported Allergen(s) Allergy Type Date of Onset Reaction(s) Facility (1 source) No Known Medication Allergies; Translations: [No Known Medication Allergies] Propensity to adverse reactions to drug (disorder) [facility] Repository Medications Current Medications Medication Drug Class(es) Dates Sig (Normalized) Sig (Original) aspirin 81 mg delayed release oral tablet (20 sources) Platelet Aggregation Inhibitor, Nonsteroidal Anti-inflammatory Drug take 1 tablet by mouth in the morning aspirin 81 MG EC tablet Take 81 mg by mouth in the morning. Active Blood Glucose Monitoring Suppl (D-Care Glucometer) w/Device kit (13 sources) Start: 11-10-2024 End: 11-10-2025 Blood Glucose [...] Continuous Glucose Sensor (Dexcom G7 Sensor) misc (7 sources) Start: 12-02-2024 End: 01-01-2025 Continuous Glucose Sensor (Dexcom G7 Sensor) misc Indications: Gestational diabetes mellitus (GDM), antepartum, gestational diabetes method of control unspecified (HHS-HCC) 1 each Every 10 (ten) days 3 each 1 12/02/2024 01/01/2025 Active 3 ml insulin glargine 100 unt/ml pen injector (14 sources) Insulin Analog Start: 12-03-2024 End: 12-09-2024 insulin glargine (LANTUS SOLOSTAR U-100 INSULIN) 100 unit/mL (3 mL) insulin pen Inject 12 units of insulin in the evening, subcutaneously, prime 2 units 15 mL 11 12/03/2024 12/09/2024 Discontinued Start: 11-28-2024 insulin glargi ne (LANTUS SOLOSTAR U-100 INSULIN) 100 unit/mL (3 mL) insulin pen Inject 16 units of insulin in the evening, subcutaneously, prime 2 units 15 mL 11 12/09/2024 Active Start: 11-28-2024 inject 100 [IU] by [...] (Reorder) isopropyl alcohol 0.7 ml/ml medicated pad (13 sources) Start: 11-10-2024 Alcohol Swabs (Alcohol Prep Pad) 70 % pads Indications: Gestational diabetes mellitus (GDM), antepartum, gestational diabetes method of control unspecified ([facility]-H[facility]) , Elevated glucose tolerance test Apply 1 [...] tolerance complicating ; childbirth; or the puerperium (12 sources) Gestational diabetes mellitus; Translations: [Gestational diabetes [...] 12-25-2023 Chronic Other and delivery including normal (16 sources) Second trimester ; Translations: [Encounter for supervision of normal , unspecified, second trimester] 07-22-2024 Episodic Other screening for suspected conditions (not mental disorders or infectious disease) (7 sources) Patient encounter status; Translations: [Encounter for screening for diabetes mellitus] Onset: 12-11-2024 07-22-2024 Episodic Residual codes; unclassified (2 sources) [...] [33 weeks gestation of ] 12-02-2024 Episodic Residual codes; unclassified (2 sources) Gestation period, 35 weeks; Translations: [35 weeks gestation of ] 12-16-2024 Episodic Syncope (1 source) Syncope and collapse; Translations: [Syncope and collapse] Onset: 12-12-2022 Episodic Unclassified (1 source) GDM, med start Onset: 11-28-2024 Unclassified (1 source) Gestational Diabetes Onset: 11-20-2024 Results Test Name Value Interpretation Reference Range Facility Urinalysis macro (dipstick) panel (U)on 12-16-2024 Bilirubin, UA Negative Negative - 4(70) +++ mg/dL [facility] Blood, UA Negative Negative - 50 Osmin/mcL [facility] Clarity, UA Clear [facility] re Color, UA Yellow [facility] Glucose, UA Negative Negative - 1999(110) ++++ mg/dL [facility] Interpretation and review of laboratory results Abnormal [facility] Ketones, UA Negative Negative - 160(16) ++++ mg/dL [facility] Leukocytes, UA Positive Negative - 500+++ Oumou/mcL [facility] Nitrite, UA Negative Negative - Positive [facility] pH, UA 6 5 - 9 [facility] Protein, UA Negative Negative - 1999(20) ++++ mg/dL [facility] Spec Grav, UA 1.015 1 - 1.03 [facility] care Urobilinogen, UA 1.0 0.2 - 12 mg/dL [facility] US OB BPP W NON-STRESS on 12-12-[address] [address] Ultrasound Report Signed Patient: JAVID PRASAD MR#: [id number] : 1990 Acct:[id number] Age/Sex: 33 / F ADM Date: 12/12/24 Loc: [facility] 250-[address]: Miguel Hannon D.O. Ordering Physician: Miguel Hannon D.O. Date of Service: 12/12/24 Procedure(s): US OB BPP w non-stress Accession Number(s): [id number] cc: Miguel Hannon D.O.; ADEBAYO SOLARES D.O. [place] [id number] Patient Name: JAVID PRASAD MRN: [facility]:[id number] date: 1990 Sex: F Assigned Patient Location: [facility] Current Patient Location: [facility] Accession/Order Number: [id number] Exam Date: 12/12/2024 19:06 Report Date: 12/12/2024 20:20 At the request of: MIGUEL HANNON DO [...] Mcdermott M.D. 12/12/2024 8:20 PM Dictation Location: [place] [address] Electronically authenticated by: [id number] Y Date: 12/12/2024 20:20 Dictated By: Tutu Mcdermott M.D. Signed By: 12/12/242022 DD/ 19 TD/TT: Sales Order Coordinator: [facility] Radiology, Radiologist, - 12/12/2024 [place] [address] Ultrasound Report Signed Patient: JAVID PRASAD MR#: [id number] : 1990 Acct:[id number] Age/Sex: 33 / F ADM Date: 12/12/24 Loc: [facility] 250-[address]: Miguel Hannon D.O. Ordering Physician: Miguel Hannon D.O. Date of Service: 12/12/24 Procedure(s): US OB BPP w non-stress Accession Number(s): [id number] cc: Miguel Hannon D.O.; ADEBAYO SOLARES D.O. The [address] [address] Patient Name: JAVID PRASAD MRN: [facility]:[id number] date: 1990 Sex: F Assigned Patient Location: [facility] Current Patient Location: [facility] Accession/Order Number: [id number] Exam Date: 12/12/2024 19:06 Report Date: 12/12/2024 20:20 At the request of: MIGUEL HANNON DO [...] Mcdermott M.D. 12/12/2024 8:20 PM Dictation Location: [email or web address] Electronically authenticated by: [id number] Y Date: 12/12/2024 20:20 Dictated By: Tutu Mcdermott M.D. Signed By: 12/12/242022 DD/ 19 TD/TT: Sales Order Coordinator: [facility] [employer] Radiology Study observation (narrative) [facility] US OB BPP W NON-STRESS Ordered By: Radiologist Radiology on 12-12-2024 [facility] Work Phone: US OB BPP W NON-STRESS on 12-06-2024 [place] [address] Ultrasound Report Signed Patient: JAVID PRASAD MR#: [id number] : 1990 Acct:[id number] Age/Sex: 33 / F ADM Date: 12/05/24 Loc: US Attending Dr: Miguel Hannon D.O. Ordering Physician: Miguel Hannon D.O. Date of Service: 12/05/24 Procedure(s): US OB BPP w non-stress Accession Number(s): [id number] cc: Miguel Hannon D.O.; ADEBAYO SOLARES D.O. [place] [id number] Patient Name: JAVID PRASAD MRN: [facility]:[id number] date: 1990 Sex: F Assigned Patient Location: [facility] Current Patient Location[place] [facility] Accession/Order Number: [id number] Exam Date: 12/05/2024 19:12 Report Date: 12/06/2024 [...] Mcdermott M.D. 12/06/2024 5:01 PM Dictation Location: [place] [address] Electronically authenticated by: [id number] Y Date: 12/06/2024 17:01 Dictated By: Tutu Mcdermott M.D. Signed By: 12/06/242015 DD/ 00 TD/TT: Sales Order Coordinator: [facility] Radiology, Radiologist, MD - 12/06/2024 [place] [address] Ultrasound Report Signed Patient: JAVID PRASAD MR#: [id number] : 1990 Acct:[id number] Age/Sex: 33 / F ADM Date: 12/05/24 Loc: US Attending Dr: Miguel Hannon D.O. Ordering Physician: Miguel Hannon D.O. Date of Service: 12/05/24 Procedure(s): US OB BPP w non-stress Accession Number(s): [id number] cc: Miguel Hannon D.O.; ADEBAYO SOLARES D.O. The [address] [id number] Patient Name: JAVID PRASAD MRN: [facility]:[id number] date: 1990 Sex: F Assigned Patient Location: [facility] Current Patient Location: [facility] Accession/Order Number: [id number] Exam Date: 12/05/2024 19:12 Report Date: 12/06/2024 [...] Mcdermott M.D. 12/06/2024 5:01 PM Dictation Location: [place] [address] Electronically authenticated by: [id number] Y Date: 12/06/2024 17:01 Dictated By: Tutu Mcdermott M.D. Signed By: 12/06/242015 DD/ 00 TD/TT: Sales Order Coordinator: [facility] Radiology Study observation (narrative) [facility] OB BPP W NON-STRESS Ordered By: Radiologist Radiology on 12-06-2024 [facility] [employer] [facility] [facility] Work Phone: Urinalysis macro (dipstick) panel (U)on 12-02-2024 Bilirubin, UA Negative Negative - 4(70) +++ mg/dL [facility] Blood, UA Negative Negative - 50 Osmin/mcL [facility] Clarity, UA Clear [facility] re Color, UA Yellow [facility] Glucose, UA Negative Negative - 2000(110) ++++ mg/dL [facility] Interpretation and review of laboratory results Abnormal [facility] Ketones, UA Negative Negative - 160(16) ++++ mg/dL [facility] Leukocytes, UA Positive Negative - 500+++ Oumou/mcL [facility] Nitrite, UA Negative Negative - Positive [facility] pH, UA 6 5 - 9 [facility] Protein, UA Negative Negative - 2000(20) ++++ mg/dL [facility] Spec Grav, UA 1.025 1 - 1.03 [facility] Urobilinogen, UA 1.0 0.2 - 12 mg/dL [facility] POCT Hemoglobin A1con 2024 HbA1c (Bld) [Mass fraction] 5.7 % 4 - 7 % [facility] OB BPP W NON-STRESS on 11-27-2024 [place] [id number] Ultrasound Report Signed Patient: JAVID PRASAD MR#: [id number] : 1990 Acct:[id number] Age/Sex: 33 / F ADM Date: 11/27/24 Loc: US Attending Dr: Miguel Hannon D.O. Ordering Physician: Miguel Hannon D.O. Date of Service: 11/27/24 Procedure(s): US OB BPP w non-stress Accession Number(s): [id number] cc: Miguel Hannon D.O.; ADEBAYO SOLARES D.O. The [place] [id number] Patient Name: JAVID PRASAD MRN: [facility]:[id number] date: 1990 Sex: F Assigned Patient Location: [facility] Current Patient Location: Accession/Order Number: [id number] Exam Date: 11/27/2024 23:39 Report Date: 11/27/2024 23:40 At the request of: MIGEUL HANNON DO Procedure: US OB BPP w [...] Deutsch M.D. 11/27/2024 11:40 PM Dictation Location: [place] [address] Electronically authenticated by: [id number] Y Date: 11/27/2024 23:40 Dictated By: Sergo Deutsch D.O. Signed By: 11/27/24 2342 DD/ 39 TD/TT: Sales Order Coordinator: [facility] Radiology, Radiologist, MD - 11/27/2024 The [place] [id number] Ultrasound Report Signed Patient: JAVID PRASAD MR#: [id number] : 1990 Acct:[id number] Age/Sex: 33 / F ADM Date: 11/27/24 Loc: US Attending Dr: Miguel Hannon D.O. Ordering Physician: Miguel Hannon D.O. Date of Service: 11/27/24 Procedure(s): US OB BPP w non-stress Accession Number(s): [id number] cc: Miguel Hannon D.O.; ADEBAYO SOLARES D.O. [place] [address] Patient Name: JAVID PRASAD MRN: [facility]:[id number] date: 1990 Sex: F Assigned Patient Location: [facility] Current Patient Location: Accession/Order Number: [id number] Exam Date: 11/27/2024 23:39 Report Date: 11/27/2024 [...] Deutsch M.D. 11/27/2024 11:40 PM Dictation Location: [place] [address] Electronically authenticated by: [id number] Y Date: 11/27/2024 23:40 Dictated By: Sergo Deutsch D.O. Signed By: 11/27/242341 DD/ 39 TD/TT: Sales Order Coordinator: [facility] Radiology Study observation (narrative) [facility] US OB BPP W NON-STRESS Ordered By: Radiologist Radiology on 11-27-2024 [facility] [employer] [facility] Work Phone: Urinalysis macro (dipstick) panel (U)on 11-18-2024 Bilirubin, UA Negative Negative - 4(70) +++ mg/dL [facility] Blood, UA Negative Negative - 50 Osmin/mcL [facility] Clarity, UA Clear [facility] re Color, UA Light Yellow [facility] Glucose, UA Trace Negative - 1999(110) ++++ mg/dL [facility] Interpretation and review of laboratory results Normal [facility] Ketones, UA Negative Negative - 160(16) ++++ mg/dL [facility] Leukocytes, UA Negative Negative - 500+++ Oumou/mcL [facility] Nitrite, UA Negative Negative - Positive [facility] pH, UA 6 5 - 9 [facility] Protein, UA Negative Negative - 1999(20) ++++ mg/dL [facility] Spec Grav, UA 1.015 1 - 1.03 [facility] care Urobilinogen, UA 4.0 0.2 - 12 mg/dL [facility] US OB INCOMPLETE ANATOMYon 0 11-14-2024 [place] [address] Ultrasound Report Signed Patient: JAVID PRASAD MR#: [id number] : 1990 Acct:[id number] Age/Sex: 33 / F ADM Date: 11/13/24 Loc: US Attending Dr: Miguel Hannon D.O. Ordering Physician: Miguel Hannon D.O. Date of Service: 11/13/24 Procedure(s): US OB incomplete anatomy Accession Number(s): [id number] cc: Miguel Hannon D.O.; ADEBAYO SOLRAES D.O. [address] [address] Patient Name: JAVID PRASAD MRN: [facility]:[id number] date: 1990 Sex: F Assigned Patient Location: US Current Patient Location: Accession/Order Number: [id number] Exam Date: 11/14/2024 09:56 Report Date: 11/14/2024 [...] Jr., D.O. 11/14/2024 10:06 AM Dictation Location: [place] [address] Electronically authenticated by: [id number] Y Date: 11/14/2024 10:06 Dictated By: Mark Anthony Conner M.D. Signed By: 11/14/24 1009 DD/ 1006 TD/TT: Sales Order Coordinator: [facility] Radiology, Radiologist, MD - 11/14/2024 [place] [address] Ultrasound Report Signed Patient: JAVID PRASAD MR#: [id number] : 1990 Acct:[id number] Age/Sex: 33 / F ADM Date: 11/13/24 Loc: US Attending Dr: Miguel Hannon D.O. Ordering Physician: Miguel Hannon D.O. Date of Service: 11/13/24 Procedure(s): US OB incomplete anatomy Accession Number(s): [id number] cc: Miguel Hannon D.O.; ADEBAYO SOLARES D.O. The [place] [address] Patient Name: JAVID PRASAD MRN: [facility]:[id number] date: 1990 Sex: F Assigned Patient Location: US Current Patient Location: Accession/Order Number: [id number] Exam Date: 11/14/2024 09:56 Report Date: 11/14/2024 [...] Jr., DLauren 11/14/2024 10:06 AM Dictation Location: [place] [address] Electronically authenticated by: [id number] Y Date: 11/14/2024 10:06 Dictated By: Mark Anthony Conner M.D. Signed By: 11/14/24 1009 DD/ 1006 TD/TT: Sales Order Coordinator: [facility] Radiology Study observation (narrative) [facility] [employer] US OB INCOMPLETE ANATOMYOrde red By: Radiologist Radiology on 11-14-2024 [facility] [employer] Work Phone: GLUCOSE TOLERANCE 3 HOURon 0 11-10-2024 GLUCOSE TOLERANCE 3 HOUR High mg/dL [facility] Comment on above: GLU FAST 113H (<95) Col: 11/10/24 0845 GLU 1HR 208H (<180) Col: 11/10/24 0945 GLU 2HR 152 (<155) Col: 11/10/24 1052 GLU 3HR 81 (<140) Col: 11/10/24 1147 Interpretation and review of laboratory results Abnormal [facility] [employer] [facility] Urinalysis macro (dipstick) panel (U)on 11-03-2024 Bilirubin, UA Negative Negative - 4(70) +++ mg/dL [facility] Blood, UA Negative Negative - 50 Osmin/mcL [facility] Clarity, UA Clear [facility] Color, UA Yellow [facility] Glucose, UA Positive Negative - 2000(110) ++++ mg/dL [facility] Interpretation and review of laboratory results Abnormal [facility] Ketones, UA Negative Negative - 160(16) ++++ mg/dL [facility] Leukocytes, UA Negative Negative - 500+++ Oumou/mcL [facility] Nitrite, UA Negative Negative - Positive [facility] pH, UA 7 5 - 9 [facility] Protein, UA Trace Negative - 2000(20) ++++ mg/dL [facility] Spec Grav, UA 1.02 1 - 1.03 [facility] care Urobilinogen, UA 1.0 0.2 - 12 mg/dL [facility] US OB GROWTHon 10-31-2024 [place] [address] Ultrasound Report Signed Patient: JAVID PRASAD MR#: [id number] : 1990 Acct:[id number] Age/Sex: 33 / F ADM Date: 10/30/24 Loc: US Attending Dr: Maureen Feliz Ordering Physician: Maureen Feliz Date of Service: 10/30/24 Procedure(s): US OB growth Accession Number(s): [id number] cc: Maureen Feliz; ADEBAYO SOLARES D.O. [address] [address] Patient Name: JAVID PRASAD MRN: [id number]:[id number] date: 1990 Sex: F Assigned Patient Location: Current Patient Location: Accession/Order Number: [id number] Exam Date: 10/31/2024 07:37 Report Date: 10/31/2024 [...] Crow M.D. 10/31/2024 7:41 AM Dictation Location: [place] [address] Electronically authenticated by: [id number] Y Date: 10/31/2024 07:41 Dictated By: Katarzyna Crow M.D. Signed By: 10/31/2444 DD/ TD/TT: Sales Order Coordinator: [facility] Radiology, Radiologist, - 10/31/2024 [place] [address] Ultrasound Report Signed Patient: JAVID PRASAD MR#: [id number] : 1990 Acct:[id number] Age/Sex: 33 / F ADM Date: 10/30/24 Loc: US Attending Dr: Maureen Feliz Ordering Physician: Maureen Feliz Date of Service: 10/30/24 Procedure(s): US OB growth Accession Number(s): [id number] cc: Maureen Feliz; ADEBAYO SOLARES D.O. The [place] [id number] Patient Name: JAVID PRASAD MRN: [facility]:[id number] date: 1990 Sex: F Assigned Patient Location: Current Patient Location: Accession/Order Number: [id number] Exam Date: 10/31/2024 07:37 Report Date: 10/31/2024 [...] Crow M.D. 10/31/2024 7:41 AM Dictation Location: [place] [address] Electronically authenticated by: [id number] Y Date: 10/31/2024 07:41 Dictated By: Katarzyna Crow M.D. Signed By: 10/31/24 0744 DD/ 0741 TD/TT: Sales Order Coordinator: [facility] Radiology Study observation (narrative) [facility] OB GROWTHOrdered By: aLyne ybarra Radiology on 10-31-2024 [facility] [employer] Work Phone: Office Visiton 10-21-2024 Follow-up visit [id number] Javid Prasad 1990 F Date Provider Department Center 10/21/2024 [facility] Family History Problem Relation Age of Onset Atrial fibrillation Mother Diabetes Father Kidney disease Father Heart attack Maternal Grandmother Family Status - Relation Status Age at Mother Alive Father Alive Maternal Grandmother Level of Service:56945 [place] OFFICE/OUTPATIENT ESTABLISHED LOW MDM 20 MIN Normal [facility] Urinalysis macro (dipstick) panel (U)on 10-21-2024 Bilirubin, UA Negative Negative - 4(70) +++ mg/dL [facility] Blood, UA Negative Negative - 50 Osmin/mcL [facility] Clarity, UA Clear [facility] Color, UA Yellow [facility] [employer] [facility] Glucose, UA Negative Negative - 2000(110) ++++ mg/dL [facility] Interpretation and review of laboratory results Abnormal [facility] Ketones, UA Positive Negative - 160(16) ++++ mg/dL [facility] Leukocytes, UA Negative Negative - 500+++ Oumou/mcL [facility] Nitrite, UA Negative Negative - Positive [facility] pH, UA 5.5 5 - 9 [facility] Protein, UA Negative Negative - 2000(20) ++++ mg/dL [facility] Spec Grav, UA 1.02 1 - 1.03 [facility] Urobilinogen, UA 1.0 0.2 - 12 mg/dL [facility] US OB 14+ WEEKS ANATOMY [...] II, MD, PHD at 18-Sep-2024 08:49:14 AM [facility] Normal Not Available Comment on above: Order Comment: US OB ANATOMY SINGLE W US OB CERVICAL LENGTH Estimated Date of Delivery: 01/17/25 Gestational Age as of 08/19/2024: 18w3d Urinalysis macro (dipstick) panel (U)on 09-16-2024 Bilirubin, UA Negative Negative - 4(70) +++ mg/dL [facility] Blood, UA Negative Negative - 50 Osmin/mcL [facility] Clarity, UA Clear [facility] re Color, UA Yellow [facility] e Glucose, UA Negative Negative - 1999(110) ++++ mg/dL [facility] Interpretation and review of laboratory results Normal [facility] Ketones, UA Negative Negative - 160(16) ++++ mg/dL [facility] Leukocytes, UA Negative Negative - 500+++ Oumou/mcL [facility] Nitrite, UA Negative Negative - Positive [facility] pH, UA 6 5 - 9 [facility] e Protein, UA Negative Negative - 1999(20) ++++ mg/dL [facility] Spec Grav, UA 1.025 1 - 1.03 [facility] Urobilinogen, UA 0.2 0.2 - 12 mg/dL [facility] GLUCOSE TOLERANCE 3 HOURon 0 08-23-2024 GLUCOSE TOLERANCE 3 HOUR High mg/dL [facility] Comment on above: GLU FAST 110H (<95) Col: 08/23/24 0738 GLU 1HR 173 (<180) Col: 08/23/24 0839 GLU 2HR 131 (<155) Col: 08/23/24 0939 GLU 3HR 67 (<140) Col: 08/23/24 1040 Interpretation and review of laboratory results Abnormal [facility] RECURRENT VAGINITIS (HTRX)on 08-20-2024 ATOPOBIUM VAGINAE 0 [facility] ATOPOBIUM VAGINAE Not detected [facility] BVAB 2,3 (BACTERIAL VAGINOSIS ASSOCIATED BACTERIA 2, 3); MOBILUNCUS SPP 0 [facility] BVAB 2,3 (BACTERIAL VAGINOSIS ASSOCIATED BACTERIA 2, 3); MOBILUNCUS SPP Not detected [facility] AGUSTIN ALBICANS, PARAPSILOSIS, TROPICALIS 0 [facility] AGUSTIN ALBICANS, PARAPSILOSIS, TROPICALIS Not detected [facility]USTIN GLABRATA 0 [facility] AGUSTIN GLABRATA Not detected [facility] AGUSTIN KRUSEI 0 [facility] AGUSTIN KRUSEI Not detected N[facility] CHLAMYDIA TRACHOMATIS 0 [facility] CHLAMYDIA TRACHOMATIS Not detected N [facility] GARDNERELLA VAGINALIS 0 [facility] Healthcare GARDNERELLA VAGINALIS Not detected N [facility] MEGASPHAERA (TYPES 1, 2) 0 [facility] MEGASPHAERA (TYPES 1, 2) Not detected [facility] MYCOPLASMA GENITALIUM 0 [facility] S Healthcare MYCOPLASMA GENITALIUM Not detected [address] [facility] NEISSERIA GONORRHOEAE 0 [facility] NEISSERIA GONORRHOEAE Not detected N [facility] TRICHOMONAS VAGINALIS 0 [facility] TRICHOMONAS VAGINALIS Not detected N [facility] GLUCOSE 1 HOURon 08-19-2024 Glucose [Mass/Vol] 182 mg/dL High NINF - 13 0 mg/dL [facility] Interpretation and review of laboratory results Abnormal [facility] Urinalysis macro (dipstick) panel (U)on 08-19-2024 Bilirubin, UA Positive Negative - 4(70) +++ mg/dL [facility] Comment on above: small Blood, UA Negative Negative - 50 Osmin/mcL [facility] Clarity, UA Clear [facility] re Color, UA Yellow [facility] e Glucose, UA Negative Negative - 1999(110) ++++ mg/dL [facility] Interpretation and review of laboratory results Abnormal [facility] Ketones, UA Positive Negative - 160(16) ++++ mg/dL [facility] Comment on above: 15 Leukocytes, UA Negative Negative - 500+++ Oumou/mcL [facility] Nitrite, UA Negative Negative - Positive [facility] pH, UA 6 5 - 9 [facility] Protein, UA Positive Negative - 1999(20) ++++ mg/dL [facility] Comment on above: 30 Spec Grav, UA 1.025 1 - 1.03 [facility] Urobilinogen, UA 0.2 0.2 - 12 mg/dL [facility] Urinalysis macro (dipstick) panel (U)on 07-22-2024 Bilirubin, UA Negative Negative - 4(70) +++ mg/dL [facility] Blood, UA Negative Negative - 50 Osmin/mcL [facility] Clarity, UA Clear [facility] re Color, UA Yellow [facility] Glucose, UA Negative Negative - 1999(110) ++++ mg/dL [facility] Interpretation and review of laboratory results Abnormal [facility] Ketones, UA Positive Negative - 160(16) ++++ mg/dL [facility] Comment on above: trace Leukocytes, UA Negative Negative - 500+++ Oumou/mcL [facility] Nitrite, UA Negative Negative - Positive [facility] pH, UA 6.5 5 - 9 [facility] Protein, UA Trace Negative - 1999(20) ++++ mg/dL [facility] Spec Grav, UA 1.025 1 - 1.03 [facility] Urobilinogen, UA 0.2 0.2 - 12 mg/dL [facility] CBC and differentialon 07-15 Hematocrit (Bld) [Volume fraction] 42 % 36 - 46 % [facility] Hemoglobin (Bld) [Mass/Vol] 13.6 g/dL 12.0 - 16.0 g/dL [facility] Platelets (Bld) [#/Vol] 392 10*3/uL 150 - 399 10*3/uL [facility] WBC (Bld) [#/Vol] 9.2 10*3/mL 3.3 - 10.0 10*3/mL [facility] CBC without diffon 5 Rbc Mcv (Fl) By Automated Count 85.4 [facility] Drug Screen, Urineon 025 Amphetamine/Methamphe tamine Negative [facility] Barbiturates Negative [facility] Benzodiazepines Negative [facility] Cocaine Metabolite Negative [facility] Methadone Negative [facility] Opiates Negative [facility] Oxycodone Negative [facility] Phencyclidine Negative [facility] Thc Marijuana, Urine Negative [facility] Glucose 1h post 50g loadon 0 07-15-2024 Glucose, 1Hr PP 182 [facility] HBV surface Ag IA Qlon 07-15 Hepatitis B Surface Antigen Negative [facility] HIV 1+2 Ab+HIV1 p24 Ag IA Ql on 07-15-2024 HIV 1&2 AB/AG Non-Reactive [facility] Laboratory - Chemistry and C hemistry - challengeon 07-15-2024 Glucose [Mass/Vol] 111 mg/dL [facility] Laboratory - Hematology and Cell countson 07-15-2024 HbA1c (Bld) [Mass fraction] 5.5 % 4.0 - 6.0 % [facility] Comment on above: ADA RECOMMENDED LIMI T 4.0 - 6.0 ADA THERAPEUTIC TARGET < 7.0 ACTION SUGGESTED > 7.0 MLR HEMOGLOBIN A1Con 025 [facility] No [facility] immune statuson 07-15-2024 Rubella immune IgG 1.77 [facility] T. pallidum IgG+IgM IA Ql (S )on 07-15-2024 Syphilis Non-Reactive [facility] Type and screenon 07-15-2024 Abo/Rh(D) Positive [facility] US OB TRANSVAGINALon 025 US OB [...] II, MD, PHD at 20-Jun-2024 08:24:08 AM [facility] Normal Not Available Comment on above: Order Comment: US OB TRANSVAGINAL No LMP recorded. [facility] PREG QUANT HCGon 025 HCG QUANTITATIVE 2792 mIU/mL [facility] Comment on above: 5-50 0.2-1 WEEK 50-500 1-2 WEEKS 100-5,000 2-3 WEEKS 500-10,000 3-4 WEEKS 1,000-50,000 4-5 WEEKS 10,000-100,000 5-6 WEEKS 15,000-200,000 6-8 WEEKS 10,000-100,000 2-3 [facility] PREG QUANT HCGon 025 HCG QUANTITATIVE 713 mIU/mL [facility] Comment on above: 5-50 0.2-1 WEEK 50-500 1-2 WEEKS 100-5,000 2-3 WEEKS 500-10,000 3-4 WEEKS 1,000-50,000 4-5 WEEKS 10,000-100,000 5-6 WEEKS 15,000-200,000 6-8 WEEKS 10,000-100,000 2-3 MONTHS [facility] ALL CBC WITH AUTO DIFFon BASOPHILS ABSOLUTE AUTO 0.1 [facility] Basophils/100 WBC (Bld) 0.8 % 0.2 - 2.0 % [facility] Eosinophils/100 WBC (Bld) 3.5 % 0.9 - 7.0 % [facility] Erythrocyte distribution width (RBC) [Ratio] 13.2 % 11.0 - 15.0 % [facility] Hematocrit (Bld) [Volume fraction] 41.9 % 36.0 - 48.0 % [facility] Hemoglobin (Bld) [Mass/Vol] 13.8 g/dL 12.0 - 16.0 g/dL [facility] IMMATURE GRANULOCYTES ABS AUTO 0.02 [facility] Immature granulocytes/100 WBC (Bld) 0.3 % 0.0 - 0.5 % [facility] LYMPHOCYTES ABSOLUTE AUTO 2.5 [facility] Lymphocytes/100 WBC (Bld) 31.1 % 20.5 - 60.0 % [facility] MCH (RBC) [Entitic mass] 27.7 pg 26.7 - 34.0 pg [facility] MCHC (RBC) [Mass/Vol] 32.9 g/dL 29.9 - 35.2 g/dL [facility] MCV (RBC) [Entitic vol] 84 fL 81.0 - 99.0 fL [facility] MONOCYTES ABSOLUTE AUTO 0.5 [facility] Monocytes/100 WBC (Bld) 6.6 % 1.7 - 12.0 % [facility] NEUTROPHILS ABSOLUTE AUTO 4.6 [facility] Neutrophils/100 WBC (Bld) 57.7 % 43.0 - 75.0 % [facility] Platelet mean volume (Bld) [Entitic vol] 9.6 fL 9.5 - 13.5 fL [facility] EO # 0.3 [facility] TB PLT 429 [facility] RBC 4.99 [facility] WBC 8 [facility] ALL CBC WITH AUTO DIFFon BASOPHILS ABSOLUTE AUTO 0.1 [facility] Basophils/100 WBC (Bld) 0.7 % 0.2 - 2.0 % [facility] Eosinophils/100 WBC (Bld) 3.7 % 0.9 - 7.0 % [facility] Erythrocyte distribution width (RBC) [Ratio] 13.2 % 11.0 - 15.0 % [facility] Hematocrit (Bld) [Volume fraction] 42.2 % 36.0 - 48.0 % [facility] Hemoglobin (Bld) [Mass/Vol] 14 g/dL 12.0 - 16.0 g/dL [facility] IMMATURE GRANULOCYTES ABS AUTO 0.01 [facility] Immature granulocytes/100 WBC [...] Health[facility] Office Visiton 12-25-2023 Follow-up visit [id number] Javid Prasad 1990 F Date Provider Department Center 12/25/2023 MARIANA WALTER [facility] Family History Problem Relation Age of Onset Atrial fibrillation Mother Diabetes Father Kidney disease Father Heart attack Maternal Grandmother Family Status - Relation Status Age at Mother Father Maternal Grandmother Level of Service:54941 [place] OFFICE/OUTPATIENT ESTABLISHED LOW MDM 20 MIN Normal [facility] Cytology Cervical or vaginal smear or scraping studyon 12-13-2023 [facility] HCG QUALITATIVE*on [facility] , QUAL Negative NEGATIVE [facility] [...] She can be sleepy during the day. [place] Sleepiness Scale score: 12. She is sleepy [...] her clinical (more content not included)... Normal [facility] CT HEAD WO CONon 12-21-2021 CT HEAD [...] CARLOS GALE Date: 2021-12-21 07:15 Normal [facility] CT TEMPORAL BONES WO CONon 0 [...] foramen are normal. Visualized paranasal sinuses clear. Ring Spinner spaces normal. Orbital contents unremarkable. Posterior fossa structures normal. IMPRESSION: Normal CT of the temporal bones. Electronically authenticated by: LOUIS BRAY Date: 2021-12-21 16:11 Normal [facility] Comprehensive Metabolic Empo n 05-10-2021 Albumin [Mass/Vol] 4.1 g/dL Normal 3.2-5.5 [facility] Comment on above: Performed By: #### E BS LIPID, EBS A1C, EBS CMP #### [facility] [address] [place] [id number] [place] Albumin/Globulin [Mass ratio] 1.3 {ratio} Normal [facility] Comment on above: Performed By: #### E BS LIPID, EBS A1C, EBS CMP #### [facility] [address] [place] [id number] [place] ALP [Catalytic activity/Vol] 77 U/L Normal 32-92 [facility] Comment on above: Performed By: #### E BS LIPID, EBS A1C, EBS CMP #### [facility] [address] [place] [address] [place] ALT [Catalytic activity/Vol] 19 U/L Normal 10-60 [facility] Comment on above: Performed By: #### E BS LIPID, EBS A1C, EBS CMP #### [facility] [address] [place] [id number] [place] AST [Catalytic activity/Vol] 18 U/L Normal 10-42 [facility] Comment on above: Performed By: #### E BS LIPID, EBS A1C, EBS CMP #### [facility] [address] [place] [address] [place] Bilirubin [Mass/Vol] 0.3 mg/dL Normal 0.3-1.2 [facility] Comment on above: Performed By: #### E BS LIPID, EBS A1C, EBS CMP #### [facility] [address] [place] [address] [place] Calcium [Mass/Vol] 9.2 mg/dL Normal 8.2-10.2 [facility] Comment on above: Performed By: #### E BS LIPID, EBS A1C, EBS CMP #### [facility] [address] [place] [address] [place] Chloride [Moles/Vol] 104 mmol/L Normal 95-114 [facility] Comment on above: Performed By: #### E BS LIPID, EBS A1C, EBS CMP #### [facility] [address] [place] [address] [place] CO2 [Moles/Vol] 24.1 mmol/L Normal 22.0-30.0 [facility] Comment on above: Performed By: #### E BS LIPID, EBS A1C, EBS CMP #### [facility] [address] Creatinine [Mass/Vol] 0.69 mg/dL Normal 0.44-1.03 [facility] Comment on above: Performed By: #### E BS LIPID, EBS A1C, EBS CMP #### [address] Estimated GFR ( Liz > 60 [facility] Comment on above: Result Comment: GFR estimated reference range: According to KDOQI guidelines, <60 ml/min/1.73m2 is sufficient to diagnose a patient with chronic kidney disease. Performed By: #### E BS LIPID, EBS A1C, EBS CMP #### [address] Estimated GFR (Non- Am > 60 [facility] Comment on above: Performed By: #### E BS LIPID, EBS A1C, EBS CMP #### [address] Globulin (S) [Mass/Vol] 3.1 g/dL [facility] Comment on above: Performed By: #### E BS LIPID, EBS A1C, EBS CMP #### [facility] [address] [place] [address] [place] Glucose [Mass/Vol] 106 mg/dL High 70-100 [facility] Comment on above: Result Comment: ADA recommended reference range Performed By: #### E BS LIPID, EBS A1C, EBS CMP #### [facility] [address] [place] [address] [place] Potassium [Moles/Vol] 4.0 mmol/L Normal 3.5-5.1 [facility] Comment on above: Performed By: #### E BS LIPID, EBS A1C, EBS CMP #### [facility] [address] [place] [address] [place] Protein [Mass/Vol] 7.2 g/dL Normal 6.1-7.9 [facility] Comment on above: Performed By: #### E BS LIPID, EBS A1C, EBS CMP #### [facility] [address] Sodium [Moles/Vol] 137 mmol/L Normal 136-146 [facility] Comment on above: Performed By: #### E BS LIPID, EBS A1C, EBS CMP #### [facility] [address] Urea nitrogen [Mass/Vol] 10 mg/dL Normal 9-23 [facility] Comment on above: Performed By: #### E BS LIPID, EBS A1C, EBS CMP #### [facility] [address] EBS A1C with Estimated Ave Primo luon 05-10-2021 Glucose [Mass/Vol] 111 mg/dL Normal [facility] Comment on above: Result Comment: PERF ORMED BY: [place] [address] PATHOLOGIST [employer] JERRY RAMSEY M.D. Performed By: #### E BS LIPID, EBS A1C, EBS CMP #### [facility] [address] [place] [address] HbA1c (Bld) [Mass fraction] 5.5 % Normal 4.3-5.6 [facility] Comment on above: Result Comment: Incr eased risk for diabetes: 5.7 - 6.4 diabetes: >6.4 glycemic control for adults with diabetes: <7.0 Performed By: #### E BS LIPID, EBS A1C, EBS CMP #### [facility] [address] Lipid Profileon 05-10-2021 Cholesterol [Mass/Vol] 202 mg/dL High 140-200 [facility] Comment on above: Result Comment: Chol less than 200 mg/dl low risk Chol 201-239 mg/dl borderline risk Chol 240 mg/dl and greater high risk Performed By: #### E BS LIPID, EBS A1C, EBS CMP #### [facility] [address] Cholesterol in HDL [Mass/Vol] 37 mg/dL Normal 35-85 [facility] Comment on above: Result Comment: HDL CHOL ATP-III CLASSIFICATION Cardiovascular Risk HDL > or equal to 60 mg/dL LOW HDL < 40 mg/dL HIGH Performed By: #### E BS LIPID, EBS A1C, EBS CMP #### [facility] [address] Cholesterol.total/Cho lesterol in HDL [Mass ratio] 5.5 {ratio} Normal <5.0 [facility] Comment on above: Result Comment: PERF ORMED BY: [place] [address] PATHOLOGIST [employer] JERRY RAMSEY M.D. Performed By: #### E BS LIPID, EBS A1C, EBS CMP #### [facility] [address] LDL Cholesterol,Calculate d 125 mg/dL High 0-100 [facility] Comment on above: Result Comment: LDL ATP III CLASSIFICATION LDL less than 100 mg/dL Optimal LDL 100-129 mg/dL Near or above optimal LDL 130-159 mg/dL Borderline high LDL 160-189 mg/dL High LDL greater than 189 mg/dL Very high Performed By: #### E BS LIPID, EBS A1C, EBS CMP #### [facility] [address] Triglyceride w/Reflex 199 mg/dL High 35-149 [facility] Comment on above: Result Comment: TRIG ATP III CLASSIFICATION TRIG less than 150 mg/dL Normal TRIG 150-199 mg/dL Borderline high TRIG 200-500 mg/dL High TRIG greater than 500 mg/dL Very high Standard traceable to the Center for Disease Conrtrol and Prevention (CDC) test method. Performed By: #### E BS LIPID, EBS A1C, EBS CMP #### [facility] [address] VLDL CHOLESTEROL 39 mg/dL Normal [facility] Comment on above: Performed By: #### E BS LIPID, EBS A1C, EBS CMP #### [facility] [address] Vital Signs Date Time Vital Sign Value Performing Clinician Faci lit 12-16-2024 13:08-0400 Body mass index (BMI) [Ratio] 39.98 kg/m2 Maureen SINGLETON Work Phone: [facility] 12-16-2024 13:08-0400 Body weight 133.72 kg Maureen SINGLETON Work Phone: [facility] 12-16-2024 13:08-0400 Diastolic blood pressure 70 mm[Hg] Maureen SINGLETON Work Phone: [facility] 12-16-2024 13:08-0400 Systolic blood pressure 120 mm[Hg] Maureen SINGLETON Work Phone: [facility] 12-02-2024 08:57-0400 Body mass index (BMI) [Ratio] 39.3 kg/m2 Miguel Riddhi DO Work Phone: [facility] 12-02-2024 08:57-0400 Body weight 131.45 kg Miguel Riddhi DO Work Phone: [facility] 12-02-2024 08:57-0400 Diastolic blood pressure 76 mm[Hg] Miguel Riddhi DO Work Phone: [facility] 12-02-2024 08:57-0400 Systolic blood pressure 114 mm[Hg] Miguel Riddhi DO Work Phone: [facility] 11-28-2024 11:44-0400 Body height 182.9 cm Saul Granados MD Work Phone: [facility] 11-28-2024 11:44-0400 Body mass index (BMI) [Ratio] 38.9 kg/m2 Saul Granados MD Work Phone: [facility] 11-28-2024 11:44-0400 Body weight 130.09 kg Saul Granados MD Work Phone: [facility] 11-28-2024 11:44-0400 Diastolic blood pressure 60 mm[Hg] Saul Granados MD Work Phone: [facility] 11-28-2024 11:44-0400 Heart rate 96 /min Saul Granados MD Work Phone: [facility] 11-28-2024 11:44-0400 Systolic blood pressure 114 mm[Hg] Saul Granados MD Work Phone: [facility] 11-18-2024 09:04-0400 Body mass index (BMI) [Ratio] 38.52 kg/m2 Miguel Riddhi DO Work Phone: [facility] 11-18-2024 09:04-0400 Body weight 128.82 kg Miguel Riddhi DO Work Phone: [facility] 11-18-2024 09:04-0400 Diastolic blood pressure 70 mm[Hg] Miguel Riddhi DO Work Phone: [facility] 11-18-2024 09:04-0400 Systolic blood pressure 112 mm[Hg] Miguel Riddhi DO Work Phone: [facility] 11-03-2024 15:07-0400 Body mass index (BMI) [Ratio] 38.63 kg/m2 Miguel Riddhi DO Work Phone: [facility] 11-03-2024 15:07-0400 Body weight 129.18 kg Miguel Riddhi DO Work Phone: [facility] 11-03-2024 15:07-0400 Diastolic blood pressure 74 mm[Hg] Miguel Riddhi DO Work Phone: [facility] 11-03-2024 15:07-0400 Systolic blood pressure 110 mm[Hg] Miguel Riddhi DO Work Phone: [facility] 10-21-2024 08:41-0400 Body mass index (BMI) [Ratio] 38.44 kg/m2 Maureen SINGLETON Work Phone: [facility] 10-21-2024 08:41-0400 Body weight 128.55 kg Maureen SINGLETON Work Phone: [facility] 10-21-2024 08:41-0400 Diastolic blood pressure 78 mm[Hg] Maureen Washington PA Work Phone: [facility] 10-21-2024 08:41-0400 Systolic blood pressure 124 mm[Hg] Maureen Paula PA Work Phone: [facility] 09-16-2024 09:49-0400 Body mass index (BMI) [Ratio] 37.57 kg/m2 Miguel Riddhi DO Work Phone: [facility] 09-16-2024 09:49-0400 Body weight 125.65 kg Miguel Riddhi DO Work Phone: [facility] 09-16-2024 09:49-0400 Diastolic blood pressure 76 mm[Hg] Miguel Riddhi DO Work Phone: [facility] 09-16-2024 09:49-0400 Systolic blood pressure 126 mm[Hg] Miguel Riddhi DO Work Phone: [facility] 08-19-2024 14:52-0400 Body mass index (BMI) [Ratio] 37.57 kg/m2 Maureen Feliz PA Work Phone: [facility] 08-19-2024 14:52-0400 Body weight 125.65 kg Maureen Paula PA Work Phone: [facility] 08-19-2024 14:52-0400 Diastolic blood pressure 78 mm[Hg] Maureen Washington PA Work Phone: [facility] 08-19-2024 14:52-0400 Systolic blood pressure 128 mm[Hg] Maureen Paula PA Work Phone: [facility] 07-22-2024 09:47-0400 Body mass index (BMI) [Ratio] 37.3 kg/m2 Miguel Riddhi DO Work Phone: [facility] 07-22-2024 09:47-0400 Body weight 124.74 kg Miguel Riddhi DO Work Phone: [facility] 07-22-2024 09:47-0400 Diastolic blood pressure 86 mm[Hg] Miguel Riddhi DO Work Phone: [facility] 07-22-2024 09:47-0400 Systolic blood pressure 130 mm[Hg] Miguel Riddhi DO Work Phone: [facility] 02-19-2024 14:07-0500 Body mass index (BMI) [Ratio] 37.95 kg/m2 Maureen Feliz PA Work Phone: [facility] 02-19-2024 14:07-0500 Body weight 126.92 kg Maureen Paula PA Work Phone: [facility] 02-19-2024 14:07-0500 Diastolic blood pressure 74 mm[Hg] Maureen Washington PA Work Phone: [facility] 02-19-2024 14:07-0500 Systolic blood pressure 114 mm[Hg] Maureen Paula PA Work Phone: [facility] 01-16-2024 16:38-0400 Body height 182.9 cm Miguel Riddhi DO Work Phone: [facility] 01-16-2024 16:38-0400 Body mass index (BMI) [Ratio] 37.57 kg/m2 Miguel Riddhi DO Work Phone: [facility] 01-16-2024 16:38-0400 Body weight 125.65 kg Miguel Riddhi DO Work Phone: [facility] 01-16-2024 16:38-0400 Diastolic blood pressure 80 mm[Hg] Miguel Riddhi DO Work Phone: [facility] 01-16-2024 16:38-0400 Systolic blood pressure 124 mm[Hg] Miguel Riddhi DO Work Phone: [facility] 12-25-2023 10:12-0400 Body height 182.9 cm Miguel Riddhi DO Work Phone: [facility] 12-25-2023 10:12-0400 Body mass index (BMI) [Ratio] 37.57 kg/m2 Miguel Riddhi DO Work Phone: [facility] 12-25-2023 10:12-0400 Body weight 125.65 kg Miguel Riddhi DO Work Phone: [facility] 12-25-2023 10:120400 Diastolic blood pressure 84 mm[Hg] Miguel Riddhi DO Work Phone: [facility] 12-25-2023 10:120400 Systolic blood pressure 122 mm[Hg] Miguel Riddhi DO Work Phone: [facility] Encounters Encounter Date Encounter Type Care Provider Facility Start: 12-16-2024 End: 12-16-2024 Bamboo flowsheet Maureen SINGLETON Work Phone: [facility] Start: 12-16-2024 End: 12-16-2024 Bamboo flowsheet Maureen SINGLETON Work Phone: [facility] Start: 12-16-2024 End: 12-16-2024 flow sheet Maureen SINGLETON Work Phone: [facility] Comment on above: 35 weeks gestation o f ([facility]); Third trimester ([facility]); Gestational diabetes mellitus (GDM), antepartum, gestational diabetes method of control unspecified ([facility]) Start: 12-12-2024 End: 12-12-2024 Clinisync Result Encounter Miguel Riddhi DO Work Phone: [facility] External Department Unsolicited Start: 12-12-2024 End: 12-12-2024 Clinisync Result Encounter Miguel Riddhi DO Work Phone: [facility] Unsolicited Start: 12-11-2024 End: 12-11-2024 ambulatory MIGUEL R [facility] Start: 12-09-2024 End: 12-09-2024 Orders Only Mary Scanlon PA-C Work Phone: [facility] Start: 12-06-2024 End: 12-06-2024 Clinisync Result Encounter Miguel Riddhi DO Work Phone: [facility] External [facility] Unsolicited Start: 12-06-2024 End: 12-06-2024 Clinisync Result Encounter Miguel Riddhi DO Work Phone: [facility] Unsolicited Start: 12-03-2024 End: 12-03-2024 Orders Only Hanny Ware POLICE MANAGER-DIRECTOR OF COLLECTIONS Work Phone: [facility] Start: 12-02-2024 End: 12-02-2024 Bamboo flowsheet Miguel Riddhi DO Work Phone: [facility] Start: 12-02-2024 End: 12-02-2024 Bamboo flowsheet Miguel Riddhi DO Work Phone: [facility] Start: 12-02-2024 End: 12-02-2024 flow sheet Miguel Riddhi DO Work Phone: [facility] Comment on above: Third trimester preg shayla ([facility] 33 weeks gestation of ([facility]); Gestational diabetes mellitus (GDM), antepartum, gestational diabetes method of control unspecified ([facility]) Start: 12-02-2024 End: 12-02-2024 ambulatory MIGUEL RIDDHI Not Available Start: 11-28-2024 End: 11-28-2024 Office outpatient new 45 minutes Saul Granados MD Work Phone: [facility] [facility] Comment on above: Insulin controlled g estational diabetes mellitus (GDM) in third trimester (Primary Dx); Prediabetes in mother during ; Family history of type 2 diabetes mellitus; Obesity affecting , antepartum, unspecified obesity type; 32 weeks gestation of Start: 11-28-2024 End: 11-28-2024 ambulatory [facility] Start: 11-27-2024 End: 11-27-2024 Clinisync Result Encounter Miguel Riddhi DO Work Phone: [facility] Unsolicited Start: 11-27-2024 End: 11-27-2024 Clinisync Result Encounter Miguel Riddhi DO Work Phone: [facility] Unsolicited Start: 11-26-2024 End: 11-26-2024 Documentation procedure Yojana Diehl RN [facility] Start: 11-26-2024 End: 11-26-2024 Telephone encounter Yojana Diehl RN [facility] Start: 11-25-2024 End: 11-25-2024 Telephone encounter Naomie LUQUE Work Phone: [facility] Start: 11-24-2024 End: 11-24-2024 Chart abstracting Scanning Provider External [facility] Start: 11-20-2024 End: 11-20-2024 ambulatory MIGUEL R [facility] Start: 11-18-2024 End: 11-18-2024 Bamboo flowsheet Miguel Riddhi DO Work Phone: JOSY HERNANDEZ Start: 11-18-2024 End: 11-18-2024 Bamboo flowsheet Miguel Riddhi DO Work Phone: NOMJosh HERNANDEZ Start: 11-18-2024 End: 11-18-2024 ambulatory MIGUEL RIDDHI Not Available Start: 11-18-2024 End: 11-18-2024 flow sheet Miguel Riddhi DO Work Phone: JOSY HERNANDE[facility] Comment on above: Third trimester preg shayla ([facility]); 31 weeks gestation of ([facility]); Gestational diabetes mellitus (GDM), antepartum, gestational diabetes method of control unspecified ([facility]) Start: 11-14-2024 End: 11-14-2024 Clinisync Result Encounter Miguel Riddhi DO Work Phone: [facility] Unsolicited Start: 11-14-2024 End: 11-14-2024 Clinisync Result Encounter Miguel Riddhi DO Work Phone: [facility] Unsolicited Start: 11-13-2024 End: 11-13-2024 Chart abstracting Generic External Data Provider [facility] Start: 11-12-2024 ambulatory VIRAL ALLRED [facility] Start: 11-10-2024 End: 11-10-2024 Clinisync Result Encounter Miguel Riddhi DO Work Phone: [facility] External Department Unsolicited Start: 11-10-2024 End: 11-10-2024 Clinisync Result Encounter Miguel Riddhi DO Work Phone: [facility] External Department Unsolicited Start: 11-03-2024 End: 11-03-2024 flow sheet Miguel Riddhi DO Work Phone: [facility] Comment on above: 29 weeks gestation o f ([facility]); Third trimester ([facility]) Start: 11-03-2024 End: 11-03-2024 ambulatory MIGUEL RIDDHI Not Available Start: 11-03-2024 End: 11-03-2024 Bamboo flowsheet Miguel Riddhi DO Work Phone: [facility] Start: 11-03-2024 End: 11-03-2024 Bamboo flowsheet Miguel Riddhi DO Work Phone: [facility] Start: 10-31-2024 End: 10-31-2024 Clinisync Result Encounter Maureen SINGLETON Work Phone: [facility] Unsolicited Start: 10-31-2024 End: 10-31-2024 Clinisync Result Encounter Maureen SINGELTON Work Phone: [facility] Unsolicited Start: 10-21-2024 End: 10-21-2024 Bamboo flowsheet Maureen SINGLETON Work Phone: [facility] Start: 10-21-2024 End: 10-21-2024 Bamboo flowsheet Maureen SINGLETON Work Phone: [facility] Start: 10-21-2024 End: 10-21-2024 ambulatory [facility] Start: 10-21-2024 End: 10-21-2024 flow sheet Maureen SINGLETON Work Phone: [facility] Comment on above: Size of fetus incons istent with dates in second trimester ([facility]) (Primary Dx); Second trimester ([facility]); 27 weeks gestation of ([facility]) Start: 10-21-2024 End: 10-21-2024 ambulatory MAUREEN FELIZ Not Available Start: 09-16-2024 End: 09-16-2024 ambulatory MIGUEL RIDDHI Not Available Start: 09-16-2024 End: 09-16-2024 flow sheet Miguel Riddhi DO Work Phone: [facility] Comment on above: Second trimester pre gnancy; 22 weeks gestation of ; Elevated glucose tolerance test Start: 09-16-2024 End: 09-16-2024 ambulatory MIGUEL RIDDHI Not Available Start: 09-02-2024 ambulatory [facility] Start: 08-23-2024 End: 08-23-2024 Clinisync Result Encounter Maureen SINGLETON Work Phone: [facility] External Department Unsolicited Start: 08-23-2024 End: 08-23-2024 Clinisync Result Encounter Maureen SINGLETON Work Phone: [facility] External Department Unsolicited Start: 08-19-2024 End: 08-19-2024 flow sheet Maureen SINGLETON Work Phone: [facility] Comment on above: Exposure to STD; Second trimester ; 18 weeks gestation of ; Need for maternal serum alpha-protein (MSAFP) screening; Screening, , for anatomic survey; Elevated glucose tolerance test Start: 08-19-2024 End: 08-19-2024 ambulatory MAUREEN FELIZ Not Available Start: 08-19-2024 End: 08-19-2024 Clinisync Result Encounter Miguel Riddhi DO Work Phone: [facility] External Department Unsolicited Start: 08-19-2024 End: 08-20-2024 Clinisync Result Encounter Miguel Riddhi DO Work Phone: [facility] Unsolicited Start: 08-19-2024 End: 08-20-2024 External Result Encounter Maureen Fleiz PA Work Phone: [facility] External Department Unsolicited [...] [facility] Unsolicited Start: 06-26-2024 ambulatory [facility] Start: 06-19-2024 End: 06-19-2024 ambulatory MIGUEL RIDDHI Not Available Start: 05-21-2024 ambulatory [facility] Start: 05-20-2024 End: 05-20-2024 Clinisync Result [...] [facility] External Department Unsolicited Start: 04-21-2024 ambulatory [facility] Start: 04-14-2024 ambulatory [facility] Start: 03-07-2024 ambulatory VIRAL ALLRED [facility] Start: 02-25-2024 ambulatory [facility] Start: 02-19-2024 End: 02-19-2024 Bamboo flowsheet Maureen SINGLETON Work Phone: [facility] Start: 02-19-2024 End: 02-19-2024 Bamboo flowsheet Maureen SINGLETON Work Phone: [facility] Start: 02-19-2024 End: 02-19-2024 Postop follow up visit related to original px Maureen SINGLETON Work Phone: [facility] Comment on above: Postop check Start: 02-19-2024 End: 02-19-2024 ambulatory MAUREEN FELIZ Not Available Start: 02-14-2024 ambulatory [facility] Start: 02-08-2024 End: 02-08-2024 Clinisync Result [...] External Department Unsolicited Start: 01-16-2024 ambulatory VIRAL CHALINO [facility] Start: 01-16-2024 End: 01-16-2024 Office outpatient visit 15 minutes Miguel Riddhi DO Work Phone: [facility] Comment on above: Pre-op examination; Uterine leiomyoma, unspecified location Start: 01-16-2024 End: 01-16-2024 Preprocedural examination done Miguel Riddhi DO Work Phone: [facility] Start: 01-16-2024 End: 01-16-2024 ambulatory [...] Start: 12-25-2023 End: 12-25-2023 ambulatory MARIANA TRENT [facility] Start: 12-11-2023 End: 12-11-2023 Clinisync Result Encounter Aristides Araiza DO Work Phone: [facility] Unsolicited Start: 12-11-2023 End: 12-11-2023 Clinisync Result Encounter Aristides Araiza DO Work Phone: [facility] Unsolicited Start: 12-12-2022 End: 12-15-2022 [facility]ulatory [facility] Start: 06-19-2022 End: 06-20-2022 ambulatory Isabella Raygoza POLICE MANAGER-DIRECTOR OF COLLECTIONS Facility:[facility] Start: 05-30-2022 End: 05-31-2022 ambulatory Adebayo Latham DO Facility:[facility] Start: 05-16-2022 End: 05-17-2022 ambulatory Isabella Raygoza POLICE MANAGER-DIRECTOR OF COLLECTIONS Facility:[facility] Start: 12-20-2021 End: 12-21-[address] ADEBAYO SOLARES Facility:[facility] Start: 11-15-2021 End: 11-16-[address] ADEBAYO SOLARES Facility:[facility] Procedures Date Procedure Procedure Detail Performing Clinician Start: 12-16-2024 Urnls dip stick/tabl et rgnt non-auto w/o micrscp Maureen SINGLETON Work Phone: Start: 12-12-2024 US OB BPP W NON-STRESS Miguel Riddhi DO Work Phone: Start: 12-06-2024 US OB BPP W NON-STRESS [...] Td Vaccines (7 - Td or Tdap) [facility] Start: 12-12-2028 Screening for malign ant neoplasm of cervix [facility] Start: 12-12-2026 Screening for malign ant neoplasm of cervix Pap Smear [facility] Start: 11-28-2025 Adult BMI Screening Adult BMI Screen ing [facility] Start: 11-28-2025 Tobacco Screening Tobacco Screening [facility] Start: 01-06-2025 End: 01-06-2025 Patient encounter procedure 01/06/2025 9:10 AM EDT Routine [facility] [address] [place] [phone] Miguel Hannno, DO [address] [place] [address] [facility] Start: 12-30-2024 End: 12-30-2024 Patient encounter procedure 12/30/2024 8:30 AM EDT Routine [facility] [address] [place] [phone] Maureen Feliz PA [address] [place] [address] [facility] Start: 12-23-2024 End: 12-23-2024 Patient encounter procedure 12/23/2024 11:30 AM EDT Routine [facility] [address] [place] [phone] Miguel Hannon, DO [address] [place] [address] [facility] Start: 12-18-2024 End: 12-18-2024 Telemedicine consultation with patient 12/18/2024 8:00 AM EDT Telemedicine [facility] at [facility] [address] [place] [phone] Hanny Ware, POLICE MANAGER-DIRECTOR OF COLLECTIONS [address] [place] [address] [facility] Start: 12-16-2024 End: 12-16-2024 Patient encounter procedure JOSY HERNANDEZ Comment on above: Arrived Start: 12-15-2024 Influenza vaccination [facility] Start: 12-11-2024 End: 12-11-2024 Patient encounter procedure 12/11/2024 1:00 PM EDT Appointment [facility] [address] [address] [address] [place] [address] [facility] Start: 12-02-2024 End: 12-02-2024 Patient encounter procedure JOSY HERNANDEZ Comment on above: Arrived Start: 11-20-2024 End: 11-20-2024 Telemedicine consultation with patient 11/20/2024 10:30 AM EDT Telemedicine [facility] at [facility] [address] [place] [phone] Miroslava Trinidad RN [address] [facility], [address] [place] [address] Juli Quezada, Naomie Bishop LD [address] [place] [address] [facility] Start: 11-18-2024 End: 05-21-2025 US biophysical profile w non stress test US biophysical profile w non stress test Imaging Routine Gestational diabetes mellitus (GDM), antepartum, gestational diabetes method of control unspecified ([facility]) Expected: 11/18/2024 (Approximate), Expires: 05/21/2025 [facility] Work Phone: Comment on above: Expected: 11/18/2024 (Approximate), Expires: 05/21/2025 Start: 11-18-2024 End: 11-18-2024 Patient encounter procedure 11/18/2024 8:50 AM EDT Routine JOS[facility] HERNANDE[facility] [address] [place] [phone] Miguel Hannon, DO [address] [place] [address] [facility] Start: 11-03-2024 End: 11-03-2024 Patient encounter procedure [facility] Comment on above: Arrived Start: 11-03-2024 End: 11-03-2024 Professional / ancillary services management 11/03/2024 2:00 PM EDT Ancillary Procedure [facility] [address] [place] [phone] [facility] Start: 10-21-2024 End: 02-21-2025 US for US OB follow up transabdominal approach Imaging Routine Size of fetus inconsistent with dates in second trimester ([facility]) Expected: 10/21/2024, Expires: 02/21/2025 [facility] [...] Routine [facility] [address] [place] [phone] Miguel Hannon, DO [address] [place] [address] [facility] Start: 09-16-2024 End: 09-16-2024 Professional / ancillary services management 09/16/2024 8:30 AM EDT Ancillary Procedure [facility] [address] [place] [phone] [facility] Start: 08-19-2024 End: 08-19-2024 Patient encounter procedure 08/19/2024 2:20 PM EDT Routine [facility] [address] [place] [phone] Maureen Feliz PA [address] [place] [address] [facility] Start: 08-19-2024 End: 09-19-2024 Alpha fetoprotein, maternal Alpha fetoprotein, maternal Lab Routine Need for maternal serum alpha-protein (MSAFP) screening Expected: 08/19/2024 (Approximate), Expires: 09/19/2024 [facility] Comment on above: Expected: 08/19/2024 (Approximate), Expires: 09/19/2024 Start: 08-19-2024 End: 08-19-2025 Measurement of glucose 3 hours after glucose challenge for glucose tolerance test Glucose tolerance, 3 hours Lab Routine Elevated glucose tolerance test Expected: 08/19/2024 (Approximate), Expires: 08/19/2025 [facility] Comment on above: Expected: 08/19/2024 (Approximate), Expires: 08/19/2025 Start: 08-19-2024 End: 11-19-2024 US for US OB 14+ weeks anatomy scan Imaging Routine Screening, , for anatomic survey Expected: 08/19/2024, Expires: 11/19/2024 [facility] Comment on above: Expected: 08/19/2024 , Expires: 11/19/2024 Start: 07-22-2024 End: 07-22-2025 Measurement of glucose 1 hour after glucose challenge for glucose tolerance test Glucose tolerance, 1 hour Lab Routine Diabetes mellitus screening Expected: 07/22/2024 (Approximate), Expires: 07/22/2025 [facility] Work Phone: Comment on above: Expected: 07/22/2024 (Approximate), Expires: 07/22/2025 Start: 07-22-2024 End: 07-22-2024 Patient encounter procedure [facility] Comment on above: Arrived Start: 06-19-2024 End: 06-19-2024 ambulatory 06/19/2024 2:30 PM EST Initial [facility] [address] [place] [phone] [facility] Start: 06-19-2024 End: 06-19-2024 Professional / ancillary services management 06/19/2024 2:00 PM EST Ancillary Procedure [facility] [address] [place] [phone] [facility] Start: 02-19-2024 End: 02-19-2024 Patient encounter procedure 02/19/2024 1:40 PM EST Office Visit [facility] [address] [place] [phone] Maureen Feliz, ARELI [address] [place] [address] Arrived [facility] Comment on above: Arrived Start: 01-16-2024 End: 01-16-2024 Patient encounter procedure 01/16/2024 4:00 PM EDT Consult [facility] [address] [place] [address] Miguel Hannon, [address] [place] [address] Arrived [facility] Comment on above: Arrived Start: 12-25-2023 End: 2024 Antimullerian hormone (AMH) Antimullerian hormone (AMH) Lab Routine Female infertility PCOS (polycystic ovarian syndrome) Dysfunctional uterine bleeding Expected: 12/25/2023 (Approximate), Expires: 2024 [facility] Comment on above: Expected: 12/25/2023 (Approximate), Expires: 2024 Start: 12-25-2023 End: 2024 DHEA DHEA Lab Routine PCOS (polycystic ovarian syndrome) Expected: 12/25/2023 (Approximate), Expires: 2024 [facility] Comment on above: Expected: 12/25/2023 (Approximate), Expires: 2024 Start: 12-25-2023 End: 12-25-2023 Patient encounter procedure [facility] Comment on above: Arrived Start: 12-16-2023 Influenza vaccination Influenza Vacc ine (#1) [facility] Start: 12-11-2023 End: 12-11-2023 Patient encounter procedure 12/11/2023 8:00 AM EDT Procedure Visit [facility] Aristides Araiza DO [address] [place] [address] [facility] Start: 05-17-2017 Screening for malign ant neoplasm of cervix [facility] Start: 12-23-2012 Screening for malign ant neoplasm of cervix Pap Smear [facility] Start: 12-23-2010 DTaP,Tdap and Td Vaccines (1 - Tdap) DTaP,Tdap and Td Vaccines (1 - Tdap) [facility] Start: 12-23-2009 Adult BMI Follow Up Plan Adult BMI Follow Up Plan [facility] Start: 12-23-2009 Adult BMI Screening Adult BMI Screen ing [facility] Start: 2003 Depression Screening Depression Scre ening [facility] Start: 2003 Tobacco Screening Tobacco Screening [facility] CBC W Auto Different ial panel - Blood CBC and differential Lab Routine PCOS (polycystic ovarian syndrome) Ordered: 12/25/2023 [facility] Comment on above: Ordered: 12/25/2023 CBC W Auto Different ial panel - Blood CBC and differential Lab Routine 22 weeks gestation of Elevated glucose tolerance test Ordered: 09/16/2024 [facility] Comment on above: Ordered: 09/16/2024 CHLAMYDIA TRACHOMATI S (GENITO/STI) CHLAMYDIA TRACHOMATIS (GENITO/STI) Lab Routine Exposure to STD Ordered: 08/19/2024 [facility] Comment on above: Ordered: 08/19/2024 DHEA-sulfate DHEA-sulfate Lab Routine PCOS (polycystic ovarian syndrome) Ordered: 12/25/2023 [facility] Comment on above: Ordered: 12/25/2023 Follicle stimulating hormone Follicle stimulating hormone Lab Routine PCOS (polycystic ovarian syndrome) Ordered: 12/25/2023 [facility] Comment on above: Ordered: 12/25/2023 hCG, quantitative, hCG, quantitative, Lab Routine PCOS (polycystic ovarian syndrome) Ordered: 12/25/2023 [facility] Work Phone: Comment on above: Ordered: 12/25/2023 Hemoglobin A1c/Hemoglobin.total in Blood Hemoglobin A1c Lab Routine Female infertility PCOS (polycystic ovarian syndrome) Dysfunctional uterine bleeding Ordered: 12/25/2023 [facility] Comment on above: Ordered: 12/25/2023 Human papilloma viru s DNA [Presence] in Unspecified specimen by Probe with amplification HPV DNA probe, amplified Microbiology Routine Ordered: 08/19/2024 [facility] Comment on above: Ordered: 08/19/2024 Luteinizing hormone Luteinizing hormone Lab Routine PCOS (polycystic ovarian syndrome) Ordered: 12/25/2023 [facility] Comment on above: Ordered: 12/25/2023 Neisseria gonorrhoea e DNA [Presence] in Unspecified specimen by [place] with probe detection Neisseria gonorrhea DNA probe, direct Lab Routine Exposure to STD Ordered: 08/19/2024 [facility] Comment on above: Ordered: 08/19/2024 SURESWAB(R) ADVANCED VAGINITIS PLUS, TMA SURESWAB(R) ADVANCED VAGINITIS PLUS, TMA Pathology and Cytology Routine Exposure to STD Ordered: 08/19/2024 [facility] Work Phone: Comment on above: Ordered: 08/19/2024 Thyrotropin [Units/volume] in Serum or Plasma TSH Lab Routine PCOS (polycystic ovarian syndrome) Ordered: 12/25/2023 [facility] Comment on above: Ordered: 12/25/2023 Thyroxine (T4) free [Mass/volume] in Serum or Plasma T4, free Lab Routine PCOS (polycystic ovarian syndrome) Ordered: 12/25/2023 [facility] Comment on above: Ordered: 12/25/2023 Immunizations Immunization Date Immunization Notes Care Provider Eunice garcia 01-20-2024 influenza virus vacc ine, unspecified formulation Maureen SINGLETON Work Phone: [facility] 02-12-2023 influenza virus vacc ine, unspecified formulation Aristides Araiza DO Work Phone: [facility] Payers Date Payer Category Payer Unknown [id number] 2024 Blue Cross Blue Shie ld Managed Care - Other [id number] 2024 Unknown [id number] 2023 Blue Cross Blue Shield [id number] 2023 Unknown [id number] 2022 Unknown 2021 Self-pay 2019 Unknown [id number] 1991 Unknown [id number] 2.16.840.1.891300.3.579.2.593 1991 Unknown [id number] 2.16.840.1.690730.3.579.2.593 1991 Unknown [id number] 2.16.840.1.628806.3.579.2.196 1991 Unknown [id number] 2.16.840.1.919467.3.579.2.196 1991 Unknown [id number] 2.16.840.1.777347.3.579.2.196 1991 Unknown [id number] 2.16.840.1.324983.3.579.2.173 1991 Unknown [id number] 2.16.840.1.627560.3.579.2.1286 1991 Unknown [id number] 2.16.840.1.172796.3.579.2.1286 1991 Unknown [id number] 2.16.840.1.592217.3.579.2.1259 1991 Unknown [id number] 2.16.840.1.309901.3.579.2.1259 1992 Unknown [id number] 2.16.840.1.779176.3.579.2.1258 1991 Unknown [id number] 2.16.840.1.412051.3.579.2.1258 1991 Unknown [id number] 2.16.840.1.905540.3.579.2.1258 1991 Unknown [id number] 2.16.840.1.376152.3.579.2.1258 1991 Unknown [id number] 2.16.840.1.510446.3.579.2.1258 1991 Unknown [id number] 2.16.840.1.423126.3.579.2.1258 1991 Unknown [id number] 2.16.840.1.789147.3.579.2.1258 1991 Unknown [id number] 2.16.840.1.542234.3.579.2.1258 1991 Unknown [id number] 2.16.840.1.763359.3.579.2.1258 1991 Unknown [id number] 2.16.840.1.414746.3.579.2.1258 1991 Unknown [id number] 2.16.840.1.907875.3.579.2.1258 1991 Unknown [id number] 2.16.840.1.566709.3.579.2.1286 1959 Unknown [id number] Social History Date Type Detail Facility Start: 11-19-2023 End: 11-28-2024 Tobacco smoking status RIIS Never smoked tobacco [facility] Start: 11-19-2023 End: 11-28-2024 Tobacco use and exposure Smokeless tobacco non-user [facility] Start: 12-25-2023 End: 12-16-2024 Alcoholic beverage intake Lifetime non-drinker (finding) [facility] Start: 11-19-2023 End: 12-25-2023 History of Social function [facility] Start: 11-19-2023 End: 12-25-2023 Tobacco use panel [facility] Start: 1990 Sex assigned at Not on file N [facility] Start: 04-26-2024 [facility] Tobacco smoking stat [facility] Tobacco smoking consumption unknown [facility] Start: 11-11-2024 Sex Female (finding) [facility] Within the past 12 months we worried whether our food would run out before we got money to buy more. Never True [facility] Start: 11-28-2024 Alcoholic beverage intake Ex-drinker (finding) [facility] Medical Equipment Procedure Code Equipment Code Equipment Origin al Text Equipment Identifier Dates 1 strip by In Vi tro route Daily Use in the morning prior to breakfast, 1 hour after each meal for a total of 4times daily. [id number] Start: 11-10-2024 End: 12-10-2024 1 each by In Vit ro route Daily Use to check FSBS four times daily [id number] Start: 11-10-2024 End: 12-10-2024 Use daily for insulin [id number] Start: 11-28-2024 Clinical Notes 06-19-2022 to 12-16-2024 ARELI Espinoza - 12/16/2024 1:10 PM EDTTelephone Encounter - Yojana Diehl RN - 12/09/2024 6:32 PM EDTTelephone Encounter - Yojana Diehl RN - 12/09/2024 6:32 PM EDTYojana Diehl RN - 11/26/2024 5:56 PM EDT Note Date & Type Note Facility 12-16-2024 History of Present illness Narrative Reason for [...] Grandfather Rito Lara Kidney disease Paternal Grandfather Riot Lara SURGICAL HISTORY Past Surgical History: Procedure [...] Vitals: Estimated body mass index is 39.98 kg/m as calculated from the following: Height as of 24: 6'. Weight as of this encounter: 294 lb 12.8 oz. BP: 120/70 Patient's last menstrual period was 04/12/2024. ASSESSMENT & PLAN ICD-10-CM 1. 35 weeks gestation of ([facility]) Z3A.35 POCT urinalysis dipstick manually resulted 2. Third trimester ([facility]) Z34.93 POCT urinalysis dipstick manually resulted 3. Gestational diabetes mellitus (GDM), antepartum, gestational diabetes method of control unspecified ([facility]) O24.419 Return OB: Patient presents today [...] of: ARELI Espinoza documented in this encounter [facility] 12-09-2024 Miscellaneous Notes Called pt to discuss her insulin change for this week. Mary Ghislaine reviewed her blood sugars and would like her to increase her lantus in the evening to 16 units. Pt verbalized understanding, we will pull her report again next week. documented in this encounter [facility] 12-09-2024 Telephone encounter Note Called pt to discuss her insulin change for this week. Mary Scanlon reviewed her blood sugars and would like her to increase her lantus in the evening to 16 units. Pt verbalized understanding, we will pull her report again next week. [facility] 12-03-2024 Miscellaneous Notes Called patient regarding [...] [facility]-03-2024 Telephone encounter Note Called patient regarding Dexcom CGM report from 11/29 to 12/01/24 and had to leave a message. RADHA Mathur, reviewed patient's report and increased her Lantus dose to 12 units each evening. Will send patient a MyChart message as well and asked patient to confirm with us via phone or MyChart that she received the dose change information. [facility]24 History of Present illness Narrative [...] nursing note reviewed. Exam conducted with a gun numberer present. Vitals: Estimated body mass index is 39.3 kg/m as calculated from the following: Height as of 01/16/24: 6'. Weight as of this encounter: 289 lb 12.8 oz. BP: 114/76 Patient's last menstrual period was 04/12/2024. ASSESSMENT & PLAN ICD-10-CM 1. Third trimester ([facility]) Z34.93 POCT urinalysis dipstick manually resulted 2. 33 weeks gestation of ([facility]) Z3A.33 POCT urinalysis dipstick manually resulted 3. Gestational diabetes mellitus (GDM), antepartum, gestational diabetes method of control unspecified ([facility]) O24.419 Continuous Glucose Sensor (Dexcom G7 [...] Pt to have repeat anatomy scan at [facility] on 12/11. Discussed delivery between 37-39 weeks d/t being on Lantus. Orders Placed This Encounter Procedures POCT urinalysis dipstick manually resulted Follow Up: Patient is to return to office in 2 week for routine OB appointment. Documented by Katarzyna Malagon LPN on behalf of: Miguel Hannon DO documented in this encounter [facility] 11-28-2024 History of Present illness Narrative Headache/epigastric pain/blurry vision/swelling? No Cramping/contractions? No Spotting/vaginal bleeding? No Loss or gush of fluid like your water may have broken? No Do you have cats at home? No Do you change the litter box (reason: risk of toxoplasmosis)? N/A Genetic testing done this here or other office? No Have you been seen here at [facility] in a previous ? No Recent ER visits or hospitalizations? No Bring blood sugar log or meter with you today? (Please bring them with you for every visit at [facility]) Yes, Dexcom report Flu vaccine (Feb-June)? [...] TESTS AND ULTRASOUND REPORTS: Referral records and epic chart were reviewed Pertinent Ultrasound findings are see formal ultrasound report. PHYSICAL EXAMINATION: BP 114/60 (BP Site: Right Arm, BP Postition: Sitting) Pulse 96 Ht 182.9 cm (6') Wt 130.1 kg (286 lb 12.8 oz) LMP 04/12/2024 BMI 38.90 kg/m Well-appearing in no distress. Respirations not labored, speaking comfortably in full sentences Gravid abdomen IMAGING No image results found. OVERALL ASSESSMENT -Javid Maria E Osmar is a pleasant 33 y.o. at 32w6d [...] more likely to fail compared to insulin. prison data on children whose mothers took oral [...] CGM we will be reviewed weekly by [facility]. Status post diabetic education nutrition counseling at [facility] Detailed anatomy ultrasound scheduled for 12/11/2024 in [facility] Repeat growth ultrasound at 38 weeks gestation, through primary OB Recommend weekly testing for the remainder of , through primary OB Delivery recommendations : Recommend delivery at [id number] Discuss delivery if estimated weight is >4500g [...] developing diabetes later on. 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 Patient does have ultrasound and office visit scheduled with us. Thank you for allowing me to participate in the care of Javid Prasad. If there any questions please do not hesitate to contact us. Saul Granados MD Maternal- Medicine [place] [id number] [facility] [address] [place] [address] This document was created with Fliqq technology. Though I make every effort to review the dictation as it is transcribed, on occasion the spoken word can be misinterpreted by the technology leading to inappropriate words, phrases, or sentences. This note is addressed to the requesting provider as a consultation for clinical guidance. Specific medical abbreviations are occasionally used and those are generally approved by the [place]?Board of?Obstetrics and?Gynecology?as well as?Ethan s abbreviations. The above plan of care was based solely on the diagnoses for which a consultation was requested. ?More frequent testing may be indicated based on her other medical/obstetrical conditions. The management of other or medical conditions is beyond the scope of requested consultation and will continue to be followed by the primary electrical prospecting operator or primary care provider. Note to patient: [...] of the practitioner. documented in this encounter [facility] 11-26-2024 History of Present illness Narrative [...] morning and sched. documented in this encounter [facility] 11-26-2024 Miscellaneous Notes Called pt to let her know that Hanny Ware reviewed her dexcom and would like her to start marking her fasting time and number. If she does know what her fasting numbers are and if they are consistently over 95 then she needs an appt to start medication. She can call and make that appt at [phone] option #3. It looks as though her fastings are running above target but would like to see what the actual numbers are running. documented in this encounter [facility] 11-26-2024 Telephone encounter Note Called pt to let her know that Hanny Ware reviewed her dexcom and would like her to start marking her fasting time and number. If she does know what her fasting numbers are and if they are consistently over 95 then she needs an appt to start medication. She can call and make that appt at [phone] option #3. It looks as though her fastings are running above target but would like to see what the actual numbers are running. [facility] 11-25-2024 Miscellaneous Notes Called regarding food [...] meals. Asked that she call back at [phone] and let us know if she is having any consistent elevated blood sugars. documented in this encounter [facility] 11-25-2024 Telephone encounter Note Called regarding food [...] meals. Asked that she call back at [phone] and let us know if she is having any consistent elevated blood sugars. [facility] History of Present illness Narrative DIABETES [...] care for you: OB Provider Family Doctor Client Reporting Associate Name: Dr. Alvin Hannon Name: Dr. D. Solares Name: City: City: City: Last time [...] first Is there anything about your culture, buddhism, or personal beliefs we need to know about to care for you: Other Tracking Primary Language spoken: Swedish [22] Primary Language for learning: Swedish Are you currently in a relationship where you are physically hurt, threatened or made to fee afraid? [] Yes [] No Product Management Manager needed? [] Yes [] No Marital status/Living [...] Interpersonal Safety: Unknown (06/07/2023) Received from [facility] Safety & Environment Fear of Current [...] If yes, where: On thge following scale, [place] the number, which describes your current level [...] weekly Educational Level Masters Family issues stable Cultural/ethnic/yazdanism influences demies Exercise approved by MD? Yes Current Exercise program walking 5 miles Who prepares the meal Self Who purchase food at your home? Self and S.O Equipment use for cooking/food storage Has everything Food Assistance(Ex.WIC, Food [place]) Declined Dining out Yes Twice a week Appetite/Appetite changes Flucuates, better lately Weight History Stable Do you have cats at home? Feeding Plans Breast Feeding If you have cats, who cleans the litter box? Cravings/Aversions/Pica Only food aversions to meat Nutrition Assessment Worksheet: Week/Weekend Food Recall Breakfast Swedish muffin with cream cheese or yogurt, water [...] time 38 minutes. documented in this encounter [facility] 11-18-2024 History of Present illness Narrative Reason [...] mg, Daily RT Blood Glucose Monitoring Suppl (D-Gridco Glucometer) w/Device kit 1 kit, Does not [...] Father Adebayo Marco Diabetes Maternal Grandfather James Lampe Hypertension Maternal Grandmother Sandy Lampe Diabetes Paternal Grandfather Rito Marco Kidney disease [...] nursing note reviewed. Exam conducted with a gun numberer present. Vitals: Estimated body mass index is 38.52 kg/m as calculated from the following: Height as of 01/16/24: 6'. Weight as of this encounter: 284 lb. BP: 112/70 Patient's last menstrual period was 04/12/2024. ASSESSMENT & PLAN ICD-10-CM 1. Third trimester ([facility]) Z34.93 Urine dip 2. 31 weeks gestation of ([facility]) Z3A.31 Urine dip 3. Gestational diabetes mellitus (GDM), antepartum, gestational diabetes method of control unspecified ([facility]) O24.419 Return OB: Patient presents today for a routine obstetrics appointment. Patient is currently 31w3d . Patient states she is doing well but has complaints of being tired due to current . Patient has verbalizes frequent movement. labor precautions was discussed/given and patient was instructed to perform kick counts three times a day. Pt being sent to [facility] to complete anatomy scan. RVOT and LVOT and lips not evaluated. Pt voiced understanding. Orders Placed This Encounter Procedures Urine dip Follow Up: Patient is to return to office in 2 week for routine OB appointment. Documented by Katarzyna Malagon LPN on behalf of: Miguel Hannon DO documented in this encounter [facility] 11-03-2024 History of Present [...] PLAN ICD-10-CM 1. 29 weeks gestation of ([facility]) Z3A.29 POCT urinalysis dipstick manually resulted 2. Third trimester ([facility]) Z34.93 POCT urinalysis dipstick manually resulted [...] Miguel Hannon DO documented in this encounter [facility] 10-21-2024 Note [place] Electrophysiology Consult Note Reason for visit: Palpitations [...] History reviewed. No pertinent surgical history. SH: [employer] Drivers of Health Tobacco Use: Low Risk (10/21/2024) Patient History Smoking Tobacco Use: Never Smokeless Tobacco Use: Never Passive Exposure: Not on file Alcohol Use: Not on file Financial Resource Strain: Not on file Food Insecurity: Not on file Transportation Needs: Not on file Physical Activity: Not on file Stress: Not on file Social Connections: Not on file Intimate Partner Violence: Unknown (06/07/2023) [place] Safety & Environment Fear of Current or [...] normal affect Orientation (more content not included)... [facility] 10-21-2024 History of Present illness Narrative Reason [...] Rito Lara Kidney disease Paternal Grandfather Rito Laar SURGICAL HISTORY Past Surgical History: Procedure Laterality [...] ASSESSMENT & PLAN ICD-10-CM 1. Second trimester ([facility]) Z34.92 POCT urinalysis dipstick manually resulted 2. 27 weeks gestation of ([facility]) Z3A.27 POCT urinalysis dipstick manually resulted [...] of: ARELI Espinoza documented in this encounter [facility] 09-16-2024 History of Present [...] nursing note reviewed. Exam conducted with a gun numberer present. Vitals: Estimated body mass index is [...] Miguel Hannon DO documented in this encounter [facility] 08-19-2024 History of Present [...] of: ARELI Espinoza documented in this encounter [facility] 07-22-2024 History of Present [...] Maternal Grandfather James Alcaraz Hypertension Maternal Grandmother Sandysaad Alcaraz Diabetes Paternal Grandfather Rito Marco Kidney [...] nursing note reviewed. Exam conducted with a gun numberer present. Vitals: Estimated body mass index is [...] or undercooked meat, and stay away from [facility]. Patient has been consulted regarding any [...] Miguel Hannon DO documented in this encounter [facility] 02-19-2024 History of Present [...] having a D&C Hysteroscopy performed at [facility] with Dr. Hannon. Pathology results was reviewed with the patient in great detail and all restrictions have been lifted. Follow Up: Patient is to return to the office for annual exam unless needed otherwise. Documented by ARELI Espinoza on behalf of: ARELI Espinoza documented in this encounter [facility] 01-16-2024 History of Present illness Narrative Reason for Appointment: Patient ID: Javid Prasad is a 33 y.o. female who presents for Pre-op Visit Patient presents today for Pre Op appointment. Patient is scheduled to undergo D&C Hysteroscopy, possible Myosure on 02/08/[address] Hannon at [facility]. MEDICATIONS Current Outpatient Medications Medication Instructions [...] reviewed, and patient is to proceed to [facility] OR. Follow Up: Patient is to follow up between 1-2 weeks post operative to assess proper healing and recovery from procedure. Documented by Katarzyna Malagon LPN on behalf of: Miguel Hannon DO documented in this encounter [facility] 12-25-2023 History of Present [...] nursing note reviewed. Exam conducted with a gun numberer present. Vitals: Estimated body mass index is [...] Miguel Hannon DO documented in this encounter [facility] 12-25-2023 Note Try to [...] not heard Diastolic (more content not included)... [facility] 06-19-2022 Note This is a Telephone Appointment [...] dreaming in association with her activity. 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 Nutrition/Health Caffeine [...] signed by Isabella Grant 06/19/22 15:39 EST [facility] Evaluation note Diagnosis Pre-op examination Uterine leiomyoma, [...] (HHS-HCC) state, incidental 27 weeks gestation of ([facility]) [facility] [...] of control unspecified [facility] Diagnosis Insulin controlled gestational diabetes mellitus (GDM) in third trimester- Primary Prediabetes in mother during Family history of type 2 diabetes mellitus Family history of diabetes mellitus Obesity affecting , antepartum, unspecified obesity type 32 weeks gestation of documented in this encounter [facility] Diagnosis Third trimester ([facility]) state, incidental 33 weeks gestation of ([facility]) Gestational diabetes mellitus (GDM), antepartum, gestational diabetes method of control unspecified ([facility]) [facility]* Diagnosis 35 weeks gestation of ([facility]) Third trimester ([facility]-HCC) state, incidental Gestational diabetes mellitus (GDM), antepartum, gestational diabetes method of control unspecified ([facility]) documented in this encounter [facility] HealthcareInstructionsNot on filedocumented in this [facility] SystemInstructionsNot on filedocumented in this encounterMercy [facility] SystemInstructionsNot on filedocumented in this encounterMer[facility] St[facility] SystemInstructionsNot on filedocumented in this encounterMercy [facility] InstructionsNot on filedocumented in this encounterMercy [facility] InstructionsNot on filedocumented in this encounterMercy [facility] Summary Purpose Family History [...] section and content) DATE CREATED AUTHOR 07/04/2021 [facility] DATE CREATED AUTHOR AUTHOR'S ORGANIZ ATION 2021 [facility] DATE CREATED AUTHOR AUTHOR'S ORGANIZ ATION 06/21/2022 [facility] DATE CREATED AUTHOR AUTHOR'S ORGANIZ ATION 12/15/2022 [facility] DATE CREATED AUTHOR AUTHOR'S ORGANIZ ATION 11/30/2024 [facility] DATE CREATED AUTHOR AUTHOR'S ORGANIZ ATION 11/30/2024 [facility] DATE CREATED AUTHOR AUTHOR'S ORGANIZ ATION 12/03/2024 [facility] DATE CREATED AUTHOR AUTHOR'S ORGANIZ ATION 12/13/2024 [facility] Care Teams (unrecognized sec tion and content) Aquatics Lifeguard Relationship Specialty Start Date End Date Adebayo Solares MD [address] [phone] PCP - General Family Medicine 11/19/23 Aquatics Lifeguard Relationship Specialty Start Date End Date Adebayo Solares MD [address] [phone] PCP - General Family Medicine 11/19/23 Aquatics Lifeguard Relationship Specialty Start Date End Date Adebayo Solares MD [address] [phone] PCP - General Family Medicine 11/19/23 Aquatics Lifeguard Relationship Specialty Start Date End Date Adebayo Solares MD [address] [place] [address] PCP - General Family Medicine 11/19/23 Aquatics Lifeguard Relationship Specialty Start Date End Date Adebayo Solares MD [address] [phone] PCP - General Family Medicine 11/19/23 Aquatics Lifeguard Relationship Specialty Start Date End Date Adebayo Solares MD [address] [place], [place] [phone] (Work) PCP - General Family Medicine 11/19/23 Aquatics Lifeguard Relationship Specialty Start Date End Date Adebayo Solares MD [address] [place], [place] [phone] (Work) PCP - General Family Medicine 11/19/23 Aquatics Lifeguard Relationship Specialty Start Date End Date Adebayo Solares MD [address] [place], [place] [phone] (Work) PCP - General Family Medicine 11/19/23 Aquatics Lifeguard Relationship Specialty Start Date End Date Adebayo Solares MD [address] [place], [place] [phone] (Work) PCP - General Family Medicine 11/19/23 Aquatics Lifeguard Relationship Specialty Start Date End Date Adebayo Solares MD [address] [place], [place] [phone] (Work) PCP - General Family Medicine 11/19/23 Aquatics Lifeguard Relationship Specialty Start Date End Date Adebayo Solares MD [address] [place], [place] [phone] (Work) PCP - General Family Medicine 11/19/23 Aquatics Lifeguard Relationship Specialty Start Date End Date Adebayo Solares MD [address] [place] [address] PCP - General Family Medicine 11/19/23 Aquatics Lifeguard Relationship Specialty Start Date End Date Adebayo Solares MD [address] [place] [phone] PCP - General Family Medicine 11/19/23 Aquatics Lifeguard Relationship Specialty Start Date End Date Adebayo Solares MD [address] [place] [phone] PCP - General Family Medicine 11/19/23 Aquatics Lifeguard Relationship Specialty Start Date End Date Adebayo Solares MD [address] [place] [phone] PCP - General Family Medicine 11/19/23 Aquatics Lifeguard Relationship Specialty Start Date End Date Adebayo Solares MD [address] [place] [phone] PCP - General Family Medicine 11/19/23 Reason [...] of control unspecified Miguel Hannon R, DO [address] [place] [address] [place] [address] Phone: tel: fax: Maternal- Medicine at [facility] [address] [facility] [place] [address] Phone: tel: fax: Referral ID Status Reason Start Date Expiration Date Visits Requested Visits Authorized [id number] Pending Review Specialty Services Required 11/11/2024 11/11/2025 [...] BE BASED ON THE PRIMARY CLINICAL RECORDS. [facility] [employer] [facility]. provides no warranty or guarantee of the accuracy or completeness of information in this document.
== END 2024-12-16 18:04 | disposition home or self-care (01) ==
LOC: FBCO 17:01 → FBC 17:13
PROVIDERS: PCP Family Medicine; Visit Provider Obstetrics & Gynecology
DX: O24.419 Gestational diabetes mellitus in pregnancy, unspecified control (principal); Z3A.35 35 weeks gestation of pregnancy
CPT/HCPCS: 59025

== ENCOUNTER 2024-12-19 19:04 | Outpatient (OUT) | payer BC, SELFPAY ==
--- OUTSIDE RECORDS SUMMARY | 2023-08-30 06:45 | XMS_ITS ---
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 Encounter Location Date Provider Diagnosis [address] [address] 08/30/2023 Adebayo Quinones Chest pain, unspecified R07.9 [...] Name:Adebayo burr, 01/26/2025 10:00:00 AM, [address] [place], [address], Progress Notes * Andressa TRIPLETTDOB: [birth year] (32 yo F)Acc No.[id number]:08/30/2023 TeleMed via Doxy Patient: Stephanie WAYNEAndressa HERRERA Provider: Maria E Quinones DO :1990 A ge:32 Y S ex:Female Date:08/30/2023 Address:[address] [place], [place] [id number] Subjective: * Chief Complaints: * S hortness [...] interactive audio and video telecommunications system called: [email or web address] Patient is attending the TeleHealth encounter from [...] Once a day PNV Vitamin D (Ergocalciferol) 53477 UNIT Capsule 1 capsule Orally qweekly Taking Omeprazole 40 MG Capsule Delayed Release 1 capsule 30 minutes before morning meal Orally Once a day Taking PNV Taking Vitamin D (Ergocalciferol) 50079 UNIT Capsule 1 capsule Orally qweekly Not-Taking/PRNMeclizine [...] 08/30/2023 Generated for Tiffanie burr/Gaby/Faustinoitting on: 0 12/19/2024 07:07 PM EDT History and Physical Notes * [...]
--- OUTSIDE RECORDS SUMMARY | 2023-11-01 10:00 | XMS_ITS ---
Author Organization [facility] in [place] Address [address] [facility] [address] Care Team Providers Care Lyric Writer Name Role Phone Adebayo Quinones Primary Care Provider REASON FOR VISIT Rectal bleeding Encounters Encounter Location Date Provider Diagnosis [facility] [address] [place] [address] 11/01/2023 Adebayo Quinones Plan Of Treatment Next Appt Details Provider Name:Adebayo burr, 01/26/2025 10:00:00 AM, [address] [place], [address], Progress Notes * Andressa TRIPLETTDOB: [birth year] (33 yo F)Acc No.[id number]:11/01/2023 UNLOCKED PROGRESS NOTE Established Patient: Stephanie WAYNEJIMENEZ Andressa Provider: Maria E Quinones DO :1990 A ge:32 Y S ex:Female Date:11/01/2023 Address:[address] [place] [phone] Subjective: * Chief Complaints: * 1 . Rectal bleeding. * Medical History: Objective: * Vitals: Assessment: Plan: * Treatment: * * Electronic signature of Shabbir Quinones DO, [id number] on 12/19/2024 at 07:08 PM EDT Sign off status: Pending Visit Status: R /S (Rescheduled) * Provider: Maria E Quinones DO Date: 0 11/01/2023 Generated for Tiffanie burr/Gaby/Faustinoitting on: 0 12/19/2024 07:08 PM EDT
--- OUTSIDE RECORDS SUMMARY | 2023-11-08 11:15 | XMS_ITS ---
Author Organization [facility] in [place] Address [address] [place] [address] Care Team Providers Care Desktop Publishing Associate Name Role Phone Stacei Adebayo Primary Care Provider [phone] Allergies Allergen (clinical drug ingredient) Drug/Non Drug Allergy documented on EMR Reaction Allergy Type Onset Date Status Ragweed Unknown Allergy Active Reason For Referral Reason rectal bleeding Diagnosis 1 Hemorrhage of anus a nd rectum (K62.5) Referral Organization Family Practice [facility] Referring Provider First Name Adebayo Referring Provider Last Name Stacie Referring Provider Speciality Family Med [facility] Referred Provider Specialty General Surg estuardo General [...] day Active PNV Active Vitamin D (Ergocalciferol) 00410 UNIT 1 capsule Orally qweekly for 30 days 06/18/2023 Active Metoprolol Tartrate 25 MG 1 tablet with food Orally Twice a day for 30 day(s) 11/14/2021 Not-Taking Meclizine HCl Not-Ta joy Social History Tobacco Use: Social History Observation Description Date Details (start date - stop date) Never Smoker NA - NA Tobacco Use/Smoking Question Answer Notes Patient 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 Problems Problem Type SNOMED Code ICD Code Onset Dates Problem Status W/U Status Risk Notes Problem 8933204 Female infertili ty, unspecified (N97.9) Active confirmed Problem 713581946 Body mass index [BMI] 36.0-36.9, adult (Z68.36) Active confirmed Problem 674331154 Obesity, unspecified (E66.9) Active confirmed Problem 648049700 Mixed hyperlipidemia (E78.2) Active confirmed Problem 82822153 Vitamin D deficiency, unspecified (E55.9) Active confirmed Vital Signs Blood pressure systolic 142 mm Hg 11/08/19 24 Blood pressure diastolic 90 mm Hg 024 Heart Rate 82 /min 11/08/2023 Respiratory Rate 16 /min 11/08/2023 Height 72 in 11/08/2023 Weight 272.2 lbs 11/08/2023 BMI 36.91 kg/m2 11/08/2023 Oximetry 98 % 11/08/2023 Encounters Encounter Location Date Provider Diagnosis [facility] [address] [place] [address] 11/08/2023 Adebayo Quinones Hemorrhage of anus a [...] K62.5) fax referral to dr miner at [facility] for eval and tx and colonoscopy prob int hem fiber monitor 11/08/2023 Female infertility, unspecified (ICD-10 - N97.9) set up pelvic US - ?PCOS f/u air valve mechanic as directed ?PCOS - d/w pt possible [...] rectum fax referral to dr miner at [facility] for eval and tx and colonoscopy prob int hem fiber monitor Female infertility, unspecified set up pelvic US - ?PCOS f/u air valve mechanic as directed ?PCOS - d/w pt possible [...] Name:Adebayo burr, 01/26/2025 10:00:00 AM, [address] [place], [address], Progress Notes * Andressa TRIPLETTDOB: [birth year] (32 yo F)Acc No.[id number]:11/08/2023 Established Patient: Andressa ALBERT Provider: Maria E Quinones DO :1990 A ge:32 Y S ex:Female Date:11/08/2023 Address:[address] [place], [place] [address], [id number] Check In:03:03 PM ESTCheck O ut:03:23 PM [...] menses at time of bleeding appt with air valve mechanic 12/2023 trying to get for 1 year [...] Once a day PNV Vitamin D (Ergocalciferol) 08661 UNIT Capsule 1 capsule Orally qweekly Taking Omeprazole 40 MG Capsule Delayed Release 1 capsule 30 minutes before morning meal Orally Once a day Taking PNV Taking Vitamin D (Ergocalciferol) 68050 UNIT Capsule 1 capsule Orally qweekly Not-Taking/PRNMeclizine [...] set up pelvic US - ?PCOS f/u air valve mechanic as directed ?PCOS - d/w pt possible [...] 11/08/2023 Generated for Tiffanie burr/Gaby/eTnaomismitting on: 0 12/19/2024 07:07 PM EDT History [...]
--- OUTSIDE RECORDS SUMMARY | 2023-11-26 11:38 | XMS_ITS ---
Author Organization [facility] in [place] Address [address] [place] [address] Care Team Providers Care Diesel Truck Crane Operator Name Role Phone Adebayo Quinones Primary Care Provider [phone] Results Component Value Reference Range Notes US Transabdominal & Transvag inal (Not yet reviewed by provider) Interpretation: Performing Lab: Notes/Report: REASON FOR VISIT need order changed Encounters Encounter Location Date Provider Diagnosis [facility] [address] [place] [address] 11/26/2023 Adebayo Quinones Female infertility, unspecified N97.9 Assessments Encounter Date Diagnosis (ICD Code) Assessment Notes Treatment Notes Treatment Clinical Notes Section Notes 11/26/2023 Female infertility, unspecified (ICD-10 - N97.9) Plan Of Treatment Pending Test Test Name Order Date US Transabdominal & Transvaginal 024 Next Appt Details Provider Name:Adebayo burr, 01/26/2025 10:00:00 AM, [address] [place], [address], Progress Notes * Andressa TRIPLETTDOB: [birth year] (32 yo F)Acc No.[id number]:11/26/2023 Patient: Andressa LABERT :1990 A ge:32 Y S ex:Female Address:[address] [place] [address], [address] Subjective: * Chief Complaints: * N eed order changed * Medical History: * Surgical History: * Hospitalization/Major Diagno stic Procedure: * Medications: Objective: * Vitals: * Physical Examination: Assessment: * Assessment: 1. F emale infertility, unspecified - N97.9 (Primary) Plan: * Treatment: * Procedure Codes: * true * Date: Generated for Tiffanie burr/Gaby/Aydensmitting on: 0 12/19/2024 07:08 PM EDT
--- OUTSIDE RECORDS SUMMARY | 2024-11-11 10:09 | XMS_ITS ---
Author Organization The [facility] in [place] Address [address] [place] [address] Care Team Providers Care Boat Hand Name Role Phone Adebayo Quinones Primary Care Provider REASON FOR VISIT needs wellness Encounters Encounter Location Date Provider Diagnosis [facility] [address] [place] [address] 11/11/2024 Adebayo Quinones Plan Of Treatment Next Appt Details Provider Name:Adebayo burr, 01/26/2025 10:00:00 AM, [address] [place], [address], Progress Notes * Andressa TRIPLETTDOB: [birth year] (33 yo F)Acc No.[id number]:11/11/2024 Patient: Stephanie Andressa MORRISSEY :1990 A ge:33 Y S ex:Female Address:[address] [place] [address], [phone] * true * Date: Generated for Printi ng/Faxing/eTransmitting on: 0 12/19/2024 07:08 PM EDT
--- OUTSIDE RECORDS SUMMARY | 2024-12-16 13:10 | XMS_ITS | Encounter Summary ---
Author Organization [facility] Address [address] [facility] [place] [address] Care Team Providers Care Automation And Controls Supervisor Name Role Phone Adebayo Quinones MD Primary Care Provider + [phone] Reason for Visit * Reason Comments Routine Visit Encounter Details Date Type Department Care Team (Late st Contact Info) Description 12/16/2024 1:10 PM EDT Routine [facility] [address] [place] [address] Maureen Mitchell PA [address] [place] [address] 35 weeks gestation of ([facility]); Third trimester ([facility]); Gestational diabetes mellitus (GDM), antepartum, gestational diabetes method of control unspecified ([facility]) Social History Tobacco Use Types Packs/Day [...] Sign Reading Time Taken Comments Blood Pressure 120/70 12/16/2024 1:08 PM EDT Pulse - - Temperature - - Respiratory Rate - - Oxygen Saturation - - Inhaled Oxygen Concentration - - Weight 134 kg (294 lb 12.8 oz) 12/16/2024 1:08 P M EDT Height - - Body Mass Index 39.98 01/16/2024 4:38 PM EDT documented in this encounter Progress Notes * ARELI Espinoza - 12/16/2024 1:10 PM EDT Reason for Appointment: Patient ID: Andressa Prasad is a 33 y.o. female who presents for Routine Visit Patient presents today for Return OB appointment. MEDICATIONS Current Outpatient Medications Medication Instructions Alcohol Swabs (Alcohol Prep Pad) 70 % pads 1 Pad, Topical, Daily, Use four times daily to check FSBS. aspirin 81 mg, Daily RT Blood Glucose Monitoring Suppl (PPI Glucometer) w/Device kit 1 kit, Does not apply, Daily, Use four times daily to check FSBS. In the morning prior to breakfast & 1 hour after each meal for a total of 4times daily. Continuous Glucose Sensor (Dexcom G7 Sensor) misc 1 each, Does not apply, Every 10 days Lantus SoloStar 16 Units, Nightly omeprazole (PRILOSEC) 20 mg, Daily before [...] Grandfather James Lissa Hypertension Maternal Grandmother Sandy Dixon Diabetes Paternal Grandfather Rito Marco Kidney disease [...] reviewed. Vitals: Estimated body mass index is 39.98 kg/m?? as calculated from the following: Height as of 01/16/24: 6'. Weight as of this encounter: 294 lb 12.8 oz. BP: 120/70 Patient's last menstrual period was 04/12/2024. ASSESSMENT & PLAN ICD-10-CM 1. 35 weeks gestation of ([facility]) Z3A.35 POCT urinalysis dipstick manually resulted 2. Third trimester ([facility]) Z34.93 POCT urinalysis dipstick manually resulted 3. Gestational diabetes mellitus (GDM), antepartum, gestational diabetes method of control unspecified ([facility]) O24.419 Return OB: Patient presents today for a routine obstetrics appointment. Patient is currently 35w3d . Patient states she is doing well but has complaints of being tired due to current . Patient has verbalizes frequent movement. labor precautions was discussed/given and patient was instructed to perform kick counts three times a day. Orders Placed This Encounter Procedures POCT urinalysis dipstick manually resulted Follow Up: Patient is to return to office in 1 week for routine OB appointment. Documented by ARELI Espinoza on behalf of: ARELI Espinoza documented in this encounter Plan of Treatment Upcoming Encounters Date Type Department Care Team (Late st Contact Info) Description 12/23/2024 11:30 AM EDT Routine [facility] [address] [place] [address] [place] [address] Miguel Hannon, DO [address] [place], [place] [id number] 12/30/2024 8:30 AM EDT Routine [facility] [address] [place] [address] [place] [address] Maureen Mitchell PA [address] [place], [place] [id number] 01/06/2025 9:10 AM EDT Routine [facility] [address] [place] [address] [place] [address] Miguel Hannon, [address] [place] [address] documented as of this encounter Procedures Procedure Name Priority Date/Time Associated Diagnosis Comments POCT URINALYSIS DIPSTICK Routine 12/16/2024 1:15 PM EDT 35 weeks gestation of ([facility]) Third trimester ([facility]) documented in this encounter Results * (ABNORMAL) POCT urinalysis dipstick manually resulted (12/16/2024 1:15 PM EDT) Color, UA Yellow Clarity, UA Clear [...] Nitrite, UA Negative Negative - Positive Urine 12/16/2024 1:15 PM EDT Maureen SINGLETON POINT OF CARE TEST ENTER/EDIT OR DERABLES Final Result documented in this encounter Visit Diagnoses Diagnosis 35 weeks gestation of ([facility]) Third trimester ([facility]) state, incidental Gestational diabetes mellitus (GDM), antepartum, gestational diabetes method of control unspecified ([facility]) documented in this encounter Care Teams Automation And Controls Supervisor Relationship Specialty Start Date End Date Adebayo Quinones MD [address] [place] [id number] PCP - General Family Medicine 11/19/23 documented as of this encounter
--- OUTSIDE RECORDS SUMMARY | 2024-12-19 19:08 | XMS_ITS | Encounter Summary ---
Author Organization [facility] Address [address] [place] [address] Care Team Providers Care Scagliola Mechanic Name Role Phone Adebayo Quinones DO Primary Care Provider [phone] Encounter Details Date Type Department Care Team (Late st Contact Info) Description 08/21/2024 Orders Only [facility] Card[facility] [address] [place] [address] Janell Felton MD [address] [place] [address] Social History Tobacco Use Types [...] on filedocumented in this encounter Care Teams Scagliola Mechanic Relationship Specialty Start Date End Date Adebayo Quinones DO [address] [place] [address] PCP - General 11/14/22 documented as of this encounter
--- OUTSIDE RECORDS SUMMARY | 2024-12-19 19:08 | XMS_ITS | Clinical Summary ---
Author Organization [facility] Address [address] [place] [address] Care Team Providers Care Route Returner Name Role Phone Adebayo Quinones DO Primary Care Provider [phone] Allergies No known active allergies Medications omeprazole [...] Description 11/24/2024 3:30 PM EDT Ancillary Procedure [facility] [address] [place] [address] Awareness of heartbeats 11/12/2024 Orders Only [facility] [address] [place] [address] Yoseph Mcintosh MD 10/22/2024 1:50 AM EDT Ancillary Procedure [facility] [address] [place] [address] Awareness of heartbeats 10/22/2024 Orders Only [facility] [address] [place] [phone] Janell Felton MD 10/21/2024 10:00 AM EDT Office Visit [facility] [address] [place] [phone] Yoseph Mcintosh MD Palpitations (Primary Dx) from [...] this topic Medical Devices Implanted Type Area Supervisor Press Room Device Identifier Shelf Expiration Date Model / Serial / Lot Monitor,Cardi ac,Lux,Dxii+I - [id number] - [id number] Implanted:Qty : 1 on 06/18/2023 by Yoseph Mcintosh MD at [facility] Implantable Loop Recorder Left: Chest [employer] 11/26/2024 [id number] / [id number] / Procedures Procedure Name Priority Date/Time Associated [...] Yoseph Mcintosh MD CV IMPLANTABLE CARDIAC DEVICE TN OCEDURES Final Result CPACS * Cardiac device check - Remote loop recorder (ILR) (11/12/2024 12:00 AM EDT) Only the most recent of2 resultswithin the time period is included. Anatomical Region Laterality Modality Other 11/12/2024 us Yoseph Mcintosh MD CV IMPLANTABLE CARDIAC DEVICE TN OCEDURES Final Result from Last 3 Months Insurance Care Teams Route Returner Relationship Specialty Start Date End Date Adebayo Quinones DO [address] [place] [address] PCP - General 11/14/22
--- OUTSIDE RECORDS SUMMARY | 2024-12-19 19:08 | XMS_ITS | Encounter Summary ---
Author Organization [facility] Address [address] [facility] [place] [address] Care Team Providers Care Mobile Sales Consultant Name Role Phone Adebayo Quinones MD Primary Care Provider [phone] Encounter Details Date Type Department Care Team (Late Contact Info) Description 02/13/2024 Abstract NOMJosh HERNANDEZ [address] [place], [place] [address] [address] Miguel Hannon DO [facility] [place], [place] [address] Social History Tobacco Use Types Packs/Day Years [...] EDT Routine NOMJosh HERNANDEZ [address] [place] [address] Miguel Hannon DO [facility] [place], [facility]11 12/30/2024 8:30 AM EDT Routine NOMJosh HERNANDEZ [facility] [place] [address] Maureen Mitchell PA [address] [facility] [place] [address] 01/06/2025 9:10 AM EDT Routine NOMS Jairo HERNANDEZ [address] [facility] [address] Miguel Hannon DO [address] [facility] [place] [address] documented as of this encounter Visit Diagnoses Not on filedocumented in this encounter Care Teams Mobile Sales Consultant Relationship Specialty Start Date End Date Adebayo Quinones MD [address] [place] [address] PCP - General Family Medicine 11/19/23 documented as of this encounter
--- OUTSIDE RECORDS SUMMARY | 2024-12-19 19:08 | XMS_ITS | Encounter Summary ---
Author Organization [facility] Address [address] [place] [address] Care Team Providers Care Saddle Tree Stitcher Name Role Phone Adebayo Quinones DO Primary Care Provider [phone] Encounter Details Date Type Department Care Team (Late st Contact Info) Description 11/12/2024 Orders Only [facility] [address] [place] [address] Yoseph Mcintosh MD [address] [place] [address] Social History Tobacco Use Types [...] Yoseph Mcintosh MD CV IMPLANTABLE CARDIAC DEVICE HI OCEDURES Final Result documented in this encounter Visit Diagnoses Not on filedocumented in this encounter Care Teams Saddle Tree Stitcher Relationship Specialty Start Date End Date Adebayo Quinones DO [address] [place] [address] PCP - General 11/14/22 documented as of this encounter
--- OUTSIDE RECORDS SUMMARY | 2024-12-19 19:08 | XMS_ITS | Encounter Summary ---
Author Organization [facility] Address [address] [facility] [place] [address] Care Team Providers Care Grease Renderer Name Role Phone Adebayo Solares MD Primary Care Provider [phone] Encounter Details Date Type Department Care Team (Late st Contact Info) Description 12/06/2024 Clinisync Result Encounter NOMS External Department Unsolicited Kenn Hannon DO [address] [place], [facility]11 Social History Tobacco Use Types Packs/Day [...] AM EDT Routine [facility]OMS Jairo HERNANDEZ [address] [place] [address] Kenn Hannon DO [address] [place] [address] 12/30/2024 8:30 AM EDT Routine [facility] Jairo HERNANDEZ [address] [place] [address] Maureen Mitchell PA [address] [facility] [place] [address] 01/06/2025 9:10 AM EDT [facility] [address] [place] [address] Kenn Hannon DO [address] [facility] [address] [place], [facility]11 documented as of this encounter Procedures Procedure Name Priority Date/Time Associated Diagnosis Comments US OB BPP W NON-STRESS 12/06/2024 5:01 PM EDT documented in this encounter Results * US OB BPP W NON-STRESS (12/06/2024 5:01 PM EDT) Anatomical Region Laterality Modality Other 12/06/2024 5:01 PM EDT Narrative 12/06/2024 8:16 PM EDT The [place] [id number] Ultrasound Report Signed Patient: JAVID TRIPLETT MR#: [id number] : 1990 Acct:[id number] Age/Sex: 33 / F ADM Date: 12/05/24 Loc: US Attending Dr: Kenn Hannon D.O. Ordering Physician: Kenn Hannon D.O. Date of Service: 12/05/24 Procedure(s): US OB BPP w non-stress Accession Number(s): [id number] cc: Kenn Hannon D.O.; ADEBAYO SOLARES D.O. The [address] [address] Patient Name: JAVID TRIPLETT MRN: [id number] date: 1990 Sex: F Assigned Patient Location: FB Current Patient Location: [facility] Accession/Order Number: [id number] Exam Date: 12/05/2024 19:12 Report Date: 12/06/2024 [...] Mcdermott M.D. 12/06/2024 5:01 PM Dictation Location: [place] [address] Electronically authenticated by: [id number] Y Date: 12/06/2024 17:01 Dictated By: Tutu Mcdermott M.D. Signed By: 12/06/242015 DD/ 00 TD/TT: Labor Arbitrator: Procedure Note Radiology, Radiologist, - 12/06/2024 [place] [address] Ultrasound Report Signed Patient: JAVID TRIPLETT DMR#: [id number] : 1990Acct:[id number] Age/Sex: 33 / FADM Date: 12/05/24 Loc: US Attending Dr: Kenn Hannon D.O. Ordering Physician: Kenn Hannon D.O. Date of Service: 12/05/24 Procedure(s): US OB BPP w non-stress Accession Number(s): [id number] cc: Kenn Hannon D.O.; ADEBAYO SOLARES D.O. The [place] [id number] Patient Name: JAVID TRIPLETT MRN: [facility]:[id number] date: 1990 Sex: F Assigned Patient Location: [facility] Current Patient Location: [facility] Accession/Order Number: [id number] Exam Date: 12/05/2024 19:12 Report Date: 12/06/2024 [...] Mcdermott M.D. 12/06/2024 5:01 PM Dictation Location: [place] [address] Electronically authenticated by: [id number] Y Date: 7:01 Dictated By: Tutu Mcdermott M.D. Signed By:12/06/242015 DD/ 00 TD/TT: Labor Arbitrator: us Kenn Hannon DO [facility] Final Result documented in this encounter Visit Diagnoses Not on filedocumented in this encounter Care Teams Grease Renderer Relationship Specialty Start Date End Date Adebayo Solares MD [address] [place] [address] PCP - General Family Medicine 11/19/23 documented as of this encounter
--- OUTSIDE RECORDS SUMMARY | 2024-12-19 19:08 | XMS_ITS | Encounter Summary ---
Author Organization [facility] Address [address] [facility] [place] [address] Care Team Providers Care Water Valve Repairer Name Role Phone Adebayo Solares MD Primary Care Provider [phone] Encounter Details Date Type Department Care Team (Late st Contact Info) Description 12/12/2024 Clinisync Result Encounter NOMS External Department Unsolicited Kenn Hannon DO [address] [place], [facility]11 Social History Tobacco Use Types Packs/Day [...] Routine NOMS Jairo HERNANDEZ [address] [place] [address] Kenn Hannon DO [address] [place] [address] 12/30/2024 8:30 AM EDT Routine NOMS Jairo HERNANDEZ [address] [place] [address] Maureen Mitchell PA [address] [facility] [address] [place], [facility]11 01/06/2025 9:10 AM EDT Routine N[facility]S [facility] [address] [place] [address] Kenn Hannon DO [address] [facility] [address] [place], [facility]11 documented as of this encounter Procedures Procedure Name Priority Date/Time Associated Diagnosis Comments US OB BPP W NON-STRESS 12/12/2024 8:20 PM EDT documented in this encounter Results * US OB BPP W NON-STRESS (12/12/2024 8:20 PM EDT) Anatomical Region Laterality Modality Other 12/12/2024 8:20 PM EDT Narrative 12/12/2024 8:23 [place] [address] Ultrasound Report Signed Patient: JAVID TRIPLETT MR#: [id number] : 1990 Acct:[id number] Age/Sex: 33 / F ADM Date: 12/12/24 Loc: [facility] 250-[address]: Kenn Hannon D.O. Ordering Physician: Kenn Hannon D.O. Date of Service: 12/12/24 Procedure(s): US OB BPP w non-stress Accession Number(s): [id number] cc: Kenn Hannon D.O.; ADEBAYO SOLARES D.O. The [address] [address] Patient Name: JAVID TRIPLETT MRN: [id number] date: 1990 Sex: F Assigned Patient Location: [facility] Current Patient Location: [facility] Accession/Order Number: [id number] Exam Date: 12/12/2024 19:06 Report Date: 12/12/2024 [...] Mcdermott M.D. 12/12/2024 8:20 PM Dictation Location: [place] [address] Electronically authenticated by: [id number] Y Date: 12/12/2024 20:20 Dictated By: Tutu Mcdermott M.D. Signed By: 12/12/242022 DD/ 19 TD/TT: Venue Manager: Procedure Note Radiology, Radiologist, - 12/12/2024 [place] [address] Ultrasound Report Signed Patient: JAVID TRIPLETT DMR#: [id number] : 1990Acct:[id number] Age/Sex: 33 / FADM Date: 12/12/24 Loc: [facility] 250-[address]: Kenn Hannon D.O. Ordering Physician: Kenn Hannon D.O. Date of Service: 12/12/24 Procedure(s): US OB BPP w non-stress Accession Number(s): [id number] cc: Kenn Hannon D.O.; ADEBAYO SOLARES D.O. The [place] [id number] Patient Name: JAVID TRIPLETT MRN: [id number] date: 1990 Sex: F Assigned Patient Location: [facility] Current Patient Location: [facility] Accession/Order Number: [id number] Exam Date: 12/12/2024 19:06 Report Date: 12/12/2024 [...] Mcdermott M.D. 12/12/2024 8:20 PM Dictation Location: [place] [address] Electronically authenticated by: [id number] Y Date: 0:20 Dictated By: Tutu Mcdermott M.D. Signed By:12/12/242022 DD/ 19 TD/TT: Venue Manager: Kenn Hannon DO [facility] Final Result documented in this encounter Visit Diagnoses Not on filedocumented in this encounter Care Teams Water Valve Repairer Relationship Specialty Start Date End Date Adebayo Solares MD [address] [place] [id number] PCP - General Family Medicine 11/19/23 documented as of this encounter
--- OUTSIDE RECORDS SUMMARY | 2024-12-19 19:08 | XMS_ITS | Encounter Summary ---
Author Organization [facility] Address [address] [facility] [place] [address] Care Team Providers Care Cat Skinner Name Role Phone Adebayo Quinones MD Primary Care Provider [phone] Encounter Details Date Type Department Care Team (Late Contact Info) Description 04/04/2024 Abstract NOMJosh HERNANDEZ [facility] [place] [address] Miguel Hannon DO [facility] [place], [place] [address] Social History Tobacco Use Types Packs/Day Years [...] EDT Routine NOMJosh HERNANDEZ [address] [place] [address] Miguel Hannon DO [facility] [place], [facility]11 12/30/2024 8:30 AM EDT Routine NOMJosh HERNANDEZ [facility] [place] [address] Maureen Mitchell PA [address] [facility] [place] [address] 01/06/2025 9:10 AM EDT Routine NOMS Jairo HERNANDEZ [address] [facility] [place] [address] Miguel Hannon DO [address] [facility] [place] [address] documented as of this encounter Visit Diagnoses Not on filedocumented in this encounter Care Teams Cat Skinner Relationship Specialty Start Date End Date Adebayo Quinones MD [address] [place] [address] PCP - General Family Medicine 11/19/23 documented as of this encounter
--- OUTSIDE RECORDS SUMMARY | 2024-12-19 19:08 | XMS_ITS | Encounter Summary ---
Author Organization [facility] Address [address] [facility] [place] [address] Care Team Providers Care Hedge Fund Trader Name Role Phone Adebayo Quinones MD Primary Care Provider [phone] Encounter Details Date Type Department Care Team (Late Contact Info) Description 12/12/2024 Abstract NOMS Jairo HERNANDEZ [facility] [place] [address] Miguel Hannon DO [facility] [place], [facility]11 Social History Tobacco Use Types Packs/Day Years [...] 12/23/2024 11:30 AM EDT Routine NOMJosh HERNANDEZ [facility] [place] [address] Miguel Hannon DO [facility] [place], [facility]11 12/30/2024 8:30 AM EDT Routine NOMS Jairo [facility] [address] [facility] [address] Maureen Mitchell PA [address] [facility] [address] [place], [place] [address] 01/06/2025 9:10 AM EDT Routine [facility]S J[facility] [address] [facility] [address] Miguel Hannon DO [address] [facility] [address] [place], [place] [address] documented as of this encounter Visit Diagnoses Not on filedocumented in this encounter Care Teams Hedge Fund Trader Relationship Specialty Start Date End Date Adebayo Quinones MD [address] [place] [address] PCP - General Family Medicine 11/19/23 documented as of this encounter
--- OUTSIDE RECORDS SUMMARY | 2024-12-19 19:08 | XMS_ITS | Encounter Summary ---
Author Organization [facility] Address [address] [address], [address] [place] [address] Care Team Providers Care Ball Assembler Name Role Phone Unavailable Primary Care Provider Unavailabl e Reason for Referral * Other (Routine) - Closed Specialty Diagnoses / Procedures Referred By Contac t Referred To Contact Cardiology Diagnoses Palpitations Syncope and collapse Procedures Tilt Table Test Clarence Wolf APRN - CNP Phone: tel: fax: Referral ID Status Reason Start Date Expiration Date Visits Re quested Visits Authorized [id number] Closed 11/16/2022 11/16/2023 1 1 Encounter Details Date Type Department Care Team (Latest Contact Info) Description 11/16/2022 Transcribe Orders [facility] [address] [place] [address] Clarence Wolf APRN - CNP [address] [place] [address] Palpitations (Primary Dx); Syncope and collapse Social [...]
--- OUTSIDE RECORDS SUMMARY | 2024-12-19 19:08 | XMS_ITS | Encounter Summary ---
Author Organization [facility] tem Address [id number] [address] [place] [address] Care Team Providers Care Radial Router Operator Name Role Phone Unavailable Primary Care Provider Unavailabl e Encounter Details Date Type Department Care Team (Late st Contact Info) Description 12/09/2024 Orders Only [facility] - Labor [address] [place] [address] Mary Scanlon, PAEveC [address] [address] Social History Tobacco Use Types Packs/Day Years [...] Care Team (Late st Contact Info) Description 12/25/2024 3:00 PM EDT Telemedicine Maternal- Medicine at [facility] [address] [place] [address] Hanny Ware, BELT SPLICER-MUSIC PUBLISHER [address] [place] [address] documented as of this encounter Visit Diagnoses Not on filedocumented in this encounter
--- OUTSIDE RECORDS SUMMARY | 2024-12-19 19:08 | XMS_ITS | Encounter Summary ---
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 [place] [address] Miguel Hannon DO [facility] [place], [facility] [...] 12/23/2024 11:30 AM EDT Routine NOMJosh HERNANDEZ [facility] [place] [address] Miguel Hannon DO 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
--- OUTSIDE RECORDS SUMMARY | 2024-12-19 19:08 | XMS_ITS | CCD ---
Author Organization [facility] CliniSypr Care Team Providers Care Associate Brand Manager Name Role Phone BECK, DR ADEBAYO Oropeza [...] Attending Unavailable SolaresAdebayo Primary Care Unavailable Jaret BLOOD BANK CALENDAR CONTROL CLERK-RAILROAD DETECTIVEIsabella Attending Unavaila ble SolaresAdebayo Primary Care Unavailable Jaret BLOOD BANK CALENDAR CONTROL CLERK-RAILROAD DETECTIVEIsabella Attending Unavaila ble SolaresAdebayo Primary Care Unavailable SolaresAdebayo Consulting Unavailable SolaresAdebayo Referring Unavailable EMEKA HERNANDEZ Referring Unavailable Solares Adebayo GOYAL Primary Care Provider Unavailable Primary Care Provider UnavailMARIANA Basilio Attending Unavailable TRENTMARIANA Referring Unavailable TRENT, MARIANA Referring Unavailable TRENT, MARIANA Referring Unavailable TRENT, MARIANA Referring Unavailable CHALINO, VIRAL Referring Unavailable TRENT, MARIANA Referring Unavailable TRENT, MARIANA Referring Unavailable CHALINO, VIRAL Referring Unavailable TRENT, MARIANA Referring Unavailable TRENT, MARIANA Referring Unavailable CHALINO, VIRAL Referring Unavailable MARIANA NEWMAN Attending Unavailable RIDDHIMIGUEL R Referring Unavailable NAOMIE CHAHAL Attending Unavailable SAUL GRANADOS Attending Unavailable RIDDHI, MIGUEL R Referring Unavailable RIDDHI, MIGUEL R Referring Unavailable RIDDHI, MIGUEL Attending Unavailable MAUREEN FELIZ Attending Unavailable RIDDHI, MIGUEL Attending Unavailable RIDDHI, MIGUEL Attending Unavailable RIDDHI, MIGUEL Attending Unavailable PAULA, MAUREEN Attending Unavailable PAULA, MAUREEN Attending Unavailable RIDDHI, MIGUEL Attending Unavailable RIDDHI, MIGUEL Attending Unavailable MIGUEL HANNON Attending Unavailable MAUREEN FELIZ Attending Unavailable Allergies Allergy Classification Reported Allergen(s) Allergy Type Date of Onset Reaction(s) Facility (1 source) No Known Medication Allergies; Translations: [No Known Medication Allergies] Propensity to adverse reactions to drug (disorder) [facility] Repository Medications Current Medications Medication Drug Class(es) [...] ml insulin glargine 100 unt/ml pen injector (15 sources) Insulin Analog Start: 12-18-2024 inject 2 [IU] by subcutaneous injection in the evening insulin glargine (LANTUS SOLOSTAR U-100 INSULIN) 100 unit/mL (3 mL) insulin pen Inject 20 units of insulin in the evening, subcutaneously, prime 2 units 15 mL 11 12/18/2024 Active Start: 12-03-2024 End: 12-09-2024 insulin glargine (LANTUS PADMINI OSTAR U-100 INSULIN) 100 unit/mL (3 mL) insulin pen Inject 12 units of insulin in the evening, subcutaneously, prime 2 units 15 mL 12/03/2024 12/09/2024 Discontinued Start: 11-28-2024 insulin glargi ne (LANTUS SOLOSTAR U-100 INSULIN) 100 unit/mL (3 mL) insulin pen Inject 16 units of insulin in the evening, subcutaneously, prime 2 units 15 mL 12/09/2024 Active Start: 11-28-2024 inject 100 [IU] [...] antepartum, gestational diabetes method of control unspecified ([facility]) , Elevated glucose tolerance test [...] meals. 30 tablet 12/25/2023 2024 Active omeprazole 20 mg delayed [...] Active PNV no.153/FA/om3/dha/epa/fi sh ( GUMMIES ORAL) (11 sources) take 2 doses by mouth in [...] Osmin/mcL [facility] Clarity, UA Clear [facility]A Yellow [facility] Glucose, UA Negative Negative - 1999(110) ++++ mg/dL [facility] Interpretation and review of laboratory results Abnormal [facility] Ketones, UA Negative Negative - 160(16) ++++ mg/dL [facility] Leukocytes, UA Positive Negative - 500+++ Oumou/mcL [facility] Nitrite, UA Negative Negative - Positive [facility] pH, UA 6 5 - 9 [facility] Protein, UA Negative Negative - 1999(20) ++++ mg/dL [facility] Spec Grav, UA 1.015 1 - 1.03 [facility] care Urobilinogen, UA 1.0 0.2 - 12 mg/dL [facility] US OB BPP W NON-STRESS on 12-12-[address] [address] Ultrasound Report Signed Patient: JAVID PRASAD MR#: [id number] : 1990 Acct:[id number] Age/Sex: 33 / F ADM Date: 12/12/24 Loc: [facility] 250-[address]: Miguel Hannon D.O. Ordering Physician: Miguel Hannon D.O. Date of Service: 12/12/24 Procedure(s): US OB BPP w non-stress Accession Number(s): [id number] cc: Miguel Hannon D.O.; ADEBAYO SOLARES D.O. The [address] [address] Patient Name: JAVID PRASAD MRN: [id number]:[id number] date: 1990 Sex: F Assigned Patient Location: [facility] Current Patient Location: [facility] Accession/Order Number: [id number] Exam Date: 12/12/2024 19:06 Report Date: 12/12/2024 [...] Mcdermott M.D. 12/12/2024 8:20 PM Dictation Location: [place] [address] Electronically authenticated by: [id number] Y Date: 12/12/2024 20:20 Dictated By: Tutu Mcdermott M.D. Signed By: 12/12/242022 DD/ 19 TD/TT: Parking Lot Manager: [facility] Radiology, Radiologist, - 12/12/2024 [place] [address] Ultrasound Report Signed Patient: JAVID PRASAD MR#: [id number] : 1990 Acct:[id number] Age/Sex: 33 / F ADM Date: 12/12/24 Loc: [facility] 250-[address]: Miguel Hannon D.O. Ordering Physician: Miguel Hannon D.O. Date of Service: 12/12/24 Procedure(s): US OB BPP w non-stress Accession Number(s): [id number] cc: Miguel Hannon D.O.; ADEBAYO SOLARES D.O. The [address] [id number] Patient Name: JAVID PRASAD MRN: [facility]:[id number] date: 1990 Sex: F Assigned Patient Location: [facility] Current Patient Location: [facility] Accession/Order Number: [id number] Exam Date: 12/12/2024 19:06 Report Date: 12/12/2024 [...] Mcdermott M.D. 12/12/2024 8:20 PM Dictation Location: [place] [address] Electronically authenticated by: [id number] Y Date: 12/12/2024 20:20 Dictated By: Tutu Mcdermott M.D. Signed By: 12/12/242022 DD/ 19 TD/TT: Parking Lot Manager: [facility] [employer] Radiology Study observation (narrative) [facility] [employer] US OB BPP W NON-STRESS Ordered By: Radiologist Radiology on 12-12-2024 [facility] Work Phone: US OB BPP W NON-STRESS on 12-06-2024 [place] [address] Ultrasound Report Signed Patient: JAVID PRASAD MR#: [id number] : 1990 Acct:[id number] Age/Sex: 33 / F ADM Date: 12/05/24 Loc: US Attending Dr: Miguel Hannon D.O. Ordering Physician: Miguel Hannon D.O. Date of Service: 12/05/24 Procedure(s): US OB BPP w non-stress Accession Number(s): [id number] cc: Miguel Hannon D.O.; ADEBAYO SOLARES D.O. [address] [address] Patient Name: JAVID PRASAD MRN: [id number]:[id number] date: 1990 Sex: F Assigned Patient Location: [facility] Current Patient Location: [facility] Accession/Order Number: [id number] Exam Date: 12/05/2024 19:12 Report Date: 12/06/2024 [...] Mcdermott M.D. 12/06/2024 5:01 PM Dictation Location: [place] [address] Electronically authenticated by: [id number] Y Date: 12/06/2024 17:01 Dictated By: Tutu Mcdermott M.D. Signed By: 12/06/242015 DD/ 00 TD/TT: Parking Lot Manager: [facility] Radiology, Radiologist, - 12/06/2024 [place] [address] Ultrasound Report Signed Patient: JAVID PRASAD MR#: [id number] : 1990 Acct:[id number] Age/Sex: 33 / F ADM Date: 12/05/24 Loc: US Attending Dr: Miguel Hannon D.O. Ordering Physician: Miguel Hannon D.O. Date of Service: 12/05/24 Procedure(s): US OB BPP w non-stress Accession Number(s): [id number] cc: Miguel Hannon D.O.; ADEBAYO SOLARES D.O. The [address] [address] Patient Name: JAVID PRASAD MRN: [facility]:[id number] date: 1990 Sex: F Assigned Patient Location: [facility] Current Patient Location: [facility] Accession/Order Number: [id number] Exam Date: 12/05/2024 19:12 Report Date: 12/06/2024 [...] Mcdermott M.D. 12/06/2024 5:01 PM Dictation Location: [facility] Electronically authenticated by: [id number] Y Date: 12/06/2024 17:01 Dictated By: Tutu Mcdermott M.D. Signed By: 12/06/242015 DD/ 00 TD/TT: Parking Lot Manager: [facility] Radiology Study observation (narrative) [facility] US OB BPP W NON-STRESS Ordered By: Radiologist Radiology on 12-06-2024 [facility] [employer] Work Phone: Urinalysis macro (dipstick) panel (U)on 12-02-2024 Bilirubin, UA Negative Negative - 4(70) +++ mg/dL [facility] Blood, UA Negative Negative - 50 Osmin/mcL [facility] Clarity, UA Clear [facility] re Color, UA Yellow [facility] Glucose, UA Negative Negative - 1999(110) ++++ mg/dL [facility] Interpretation and review of laboratory results Abnormal [facility] Ketones, UA Negative Negative - 160(16) ++++ mg/dL [facility] Leukocytes, UA Positive Negative - 500+++ Oumou/mcL [facility] Nitrite, UA Negative Negative - Positive [facility] pH, UA 6 5 - 9 [facility] Protein, UA Negative Negative - 1999(20) ++++ mg/dL [facility] Spec Grav, UA 1.025 1 - 1.03 [facility] Urobilinogen, UA 1.0 0.2 - 12 mg/dL [facility] POCT Hemoglobin A1con 2024 HbA1c (Bld) [Mass fraction] 5.7 % 4 - 7 % [facility] US OB BPP W NON-STRESS on 11-27-2024 [place] [address] Ultrasound Report Signed Patient: JAVID PRASAD MR#: [id number] : 1990 Acct:[id number] Age/Sex: 33 / F ADM Date: 11/27/24 Loc: US Attending Dr: Miguel Hannon D.O. Ordering Physician: Miguel Hannon D.O. Date of Service: 11/27/24 Procedure(s): US OB BPP w non-stress Accession Number(s): [id number] cc: Miguel Hannon D.O.; ADEBAYO SOLARES D.O. [place] [address] Patient Name: JAVID PRASAD MRN: [facility]:[id number] date: 1990 Sex: F Assigned Patient Location: [facility] Current Patient Location: Accession/Order Number: [id number] Exam Date: 11/27/2024 23:39 Report Date: 11/27/2024 [...] Deutsch M.D. 11/27/2024 11:40 PM Dictation Location: [place] [address] Electronically authenticated by: [id number] Y Date: 11/27/2024 23:40 Dictated By: Sergo Deutsch D.O. Signed By: 11/27/242341 DD/ 39 TD/TT: Parking Lot Manager: [facility] Radiology, RadiologistMD - 11/27/2024 [place] [address] Ultrasound Report Signed Patient: JAVID PRASAD MR#: [id number] : 1990 Acct:[id number] Age/Sex: 33 / F ADM Date: 11/27/24 Loc: US Attending Dr: Miguel Hannon D.O. Ordering Physician: Miguel Hannon D.O. Date of Service: 11/27/24 Procedure(s): US OB BPP w non-stress Accession Number(s): [id number] cc: Miguel Hannon D.O.; ADEBAYO SOLARES D.O. The [place] [address] Patient Name: JAVID PRASAD MRN: [facility]:[id number] date: 1990 Sex: F Assigned Patient Location: [facility] Current Patient Location: Accession/Order Number: [id number] Exam Date: 11/27/2024 23:39 Report Date: 11/27/2024 [...] Deutsch M.D. 11/27/2024 11:40 PM Dictation Location: [place] [address] Electronically authenticated by: [id number] Y Date: 11/27/2024 23:40 Dictated By: Sergo Deutsch D.O. Signed By: 11/27/242341 DD/ 39 TD/TT: Parking Lot Manager: [facility] Radiology Study observation (narrative) [facility] US OB BPP W NON-STRESS Ordered By: Radiologist Radiology on 11-27-2024 [facility] Work Phone: Urinalysis macro (dipstick) panel (U)on 11-18-2024 Bilirubin, UA Negative Negative - 4(70) +++ mg/dL [facility] Blood, UA Negative Negative - 50 Omsin/mcL [facility] Clarity, UA Clear [facility] re Color, UA Light Yellow [facility] are Glucose, UA Trace Negative - 1999(110) ++++ mg/dL [facility] Interpretation and review of laboratory results Normal [facility] Ketones, UA Negative Negative - 160(16) ++++ mg/dL [facility] Leukocytes, UA Negative Negative - 500+++ Oumou/mcL [facility] Nitrite, UA Negative Negative - Positive [facility] pH, UA 6 5 - 9 [facility] Protein, UA Negative Negative - 1999(20) ++++ mg/dL [facility] Spec Grav, UA 1.015 1 - 1.03 [facility] Urobilinogen, UA 4.0 0.2 - 12 mg/dL [facility] US OB INCOMPLETE ANATOMYon 0 11-14-2024 [place] [address] Ultrasound Report Signed Patient: JAVID PRASAD MR#: [id number] : 1990 Acct:[id number] Age/Sex: 33 / F ADM Date: 11/13/24 Loc: US Attending Dr: Miguel Hannon D.O. Ordering Physician: Miguel Hannon D.O. Date of Service: 11/13/24 Procedure(s): US OB incomplete anatomy Accession Number(s): [id number] cc: Miguel Hannon D.O.; ADEBAYO SOLARES D.O. [address] [address] Patient Name: JAVID PRASAD MRN: [id number]:[id number] date: 1990 Sex: F Assigned Patient Location: US Current Patient Location: Accession/Order Number: [id number] Exam Date: 11/14/2024 09:56 Report Date: 11/14/2024 [...] Jr., D.O. 11/14/2024 10:06 AM Dictation Location: [place] [address] Electronically authenticated by: [id number] Y Date: 11/14/2024 10:06 Dictated By: Mark Anthony Conner M.D. Signed By: 11/14/24 1009 DD/ 1006 TD/TT: Parking Lot Manager: [facility] Radiology, Radiologist, MD - 11/14/2024 [place] [address] Ultrasound Report Signed Patient: JAVID PRASAD MR#: [id number] : 1990 Acct:[id number] Age/Sex: 33 / F ADM Date: 11/13/24 Loc: US Attending Dr: Miguel Hannon D.O. Ordering Physician: Miguel Hannon D.O. Date of Service: 11/13/24 Procedure(s): US OB incomplete anatomy Accession Number(s): [id number] cc: Miguel Hannon D.O.; ADEBAYO SOLARES D.O. The [place] [id number] Patient Name: JAVID PRASAD MRN: [facility]:[id number] date: 1990 Sex: F Assigned Patient Location: US Current Patient Location: Accession/Order Number: [id number] Exam Date: 11/14/2024 09:56 Report Date: 11/14/2024 [...] Impression dictated by: Mark Anthony Conner Jr., D.OZack 11/14/2024 10:06 AM Dictation Location: [place] [address] Electronically authenticated by: [id number] Y Date: 11/14/2024 10:06 Dictated By: Mark Anthony Conner M.D. Signed By: 11/14/24 1009 DD/ 1006 TD/TT: Parking Lot Manager: [facility] Radiology Study observation (narrative) [facility] US OB INCOMPLETE ANATOMYOrde red By: Radiologist Radiology on 11-14-2024 [facility] [employer] Work Phone: GLUCOSE TOLERANCE 3 HOURon 0 11-10-2024 GLUCOSE TOLERANCE 3 HOUR High mg/dL [facility] Comment on above: GLU FAST 113H (<95) Col: 11/10/24 0845 GLU 1HR 208H (<180) Col: 11/10/24 0945 GLU 2HR 152 (<155) Col: 11/10/24 1052 GLU 3HR 81 (<140) Col: 11/10/24 1147 Interpretation and review of laboratory results Abnormal [facility] [employer] Urinalysis macro (dipstick) panel (U)on 11-03-2024 Bilirubin, UA Negative Negative - 4(70) +++ mg/dL [facility] Blood, UA Negative Negative - 50 Osmin/mcL [facility] Clarity, UA Clear [facility] Color, UA Yellow [facility] Glucose, UA Positive Negative - 1999(110) ++++ mg/dL [facility] Interpretation and review of laboratory results Abnormal [facility] Ketones, UA Negative Negative - 160(16) ++++ mg/dL [facility] Leukocytes, UA Negative Negative - 500+++ Oumou/mcL [facility] Nitrite, UA Negative Negative - Positive [facility] pH, UA 7 5 - 9 [facility] Protein, UA Trace Negative - 1999(20) ++++ mg/dL [facility] Spec Grav, UA 1.02 1 - 1.03 [facility] care Urobilinogen, UA 1.0 0.2 - 12 mg/dL [facility] US OB GROWTHon 10-31-2024 [place] [address] Ultrasound Report Signed Patient: JAVID PRASAD MR#: [id number] : 1990 Acct:[id number] Age/Sex: 33 / F ADM Date: 10/30/24 Loc: US Attending Dr: Maureen Feliz Ordering Physician: Maureen Feliz Date of Service: 10/30/24 Procedure(s): US OB growth Accession Number(s): [id number] cc: Maureen Feliz; ADEBAYO SOLARES D.O. [place] [id number] Patient Name: JAVID PRASAD MRN: [facility]:[id number] date: 1990 Sex: F Assigned Patient Location: Current Patient Location: Accession/Order Number: [id number] Exam Date: 10/31/2024 07:37 Report Date: 10/31/2024 [...] Crow M.D. 10/31/2024 7:41 AM Dictation Location: [place] [address] Electronically authenticated by: [id number] Y Date: 10/31/2024 07:41 Dictated By: Katarzyna Crow M.D. Signed By: 10/31/24 0744 DD/ 0741 TD/TT: Parking Lot Manager: [facility] Radiology, Radiologist, MD - 10/31/2024 [place] [address] Ultrasound Report Signed Patient: JAVID PRASAD MR#: [id number] : 1990 Acct:[id number] Age/Sex: 33 / F ADM Date: 10/30/24 Loc: US Attending Dr: Maureen Feliz Ordering Physician: Maureen Feliz Date of Service: 10/30/24 Procedure(s): US OB growth Accession Number(s): [id number] cc: Maureen Feliz; ADEBAYO SOLARES D.O. The [place] [id number] Patient Name: JAVID PRASAD MRN: [facility]:[id number] date: 1990 Sex: F Assigned Patient Location: Current Patient Location: Accession/Order Number: [id number] Exam Date: 10/31/2024 07:37 Report Date: 10/31/2024 [...] Crow M.D. 10/31/2024 7:41 AM Dictation Location: [place] [address] Electronically authenticated by: [id number] Y Date: 10/31/2024 07:41 Dictated By: Katarzyna Crow M.D. Signed By: 10/31/24 0744 DD/ 0741 TD/TT: Parking Lot Manager: [facility] Radiology Study observation (narrative) [facility] OB GROWTHOrdered By: Layne ologfortunato Radiology on 10-31-2024 [facility] Work Phone: Office Visiton 10-21-2024 Follow-up visit [id number] Javid Prasad 1990 F Date Provider Department Center 10/21/2024 Maria G-MARIANA NEWMAN BEB[facility] Family History Problem Relation Age of Onset Atrial fibrillation Mother Diabetes Father Kidney disease Father Heart attack Maternal Grandmother Family Status - Relation Status Age at Mother Alive Father Alive Maternal Grandmother Level of Service:83506 [place] OFFICE/OUTPATIENT ESTABLISHED LOW MDM 20 MIN Normal [facility] Urinalysis macro (dipstick) panel (U)on 10-21-2024 Bilirubin, UA Negative Negative - 4(70) +++ mg/dL [facility] Blood, UA Negative Negative - 50 Osmin/mcL [facility] Clarity, UA Clear [facility] re Color, UA Yellow [facility] Glucose, UA Negative Negative - 1999(110) ++++ mg/dL [facility] Interpretation and review of laboratory results Abnormal [facility] Ketones, UA Positive Negative - 160(16) ++++ mg/dL [facility] Leukocytes, UA Negative Negative - 500+++ Oumou/mcL [facility] Nitrite, UA Negative Negative - Positive [facility] pH, UA 5.5 5 - 9 [facility] e Protein, UA Negative Negative - 1999(20) ++++ mg/dL [facility] Spec Grav, UA 1.02 1 - 1.03 [facility] Urobilinogen, UA 1.0 0.2 - 12 mg/dL [facility] US OB 14+ WEEKS [...] II, MD, PHD at 18-Sep-2024 08:49:14 AM [facility] Normal Not Available Comment on above: Order Comment: US OB ANATOMY SINGLE W US OB CERVICAL LENGTH Estimated Date of Delivery: 01/17/25 Gestational Age as of 08/19/2024: 18w3d Urinalysis macro (dipstick) panel (U)on 09-16-2024 Bilirubin, UA Negative Negative - 4(70) +++ mg/dL [facility] Blood, UA Negative Negative - 50 Osmin/mcL [facility] Clarity, UA Clear [facility] re Color, UA Yellow [facility] [employer] Glucose, UA Negative Negative - 1999(110) ++++ mg/dL [facility] Interpretation and review of laboratory results Normal [facility] Ketones, UA Negative Negative - 160(16) ++++ mg/dL [facility] Leukocytes, UA Negative Negative - 500+++ Oumou/mcL [facility] Nitrite, UA Negative Negative - Positive [facility] pH, UA 6 5 - 9 [facility] [employer] Protein, UA Negative Negative - 1999(20) ++++ mg/dL [facility] Spec Grav, UA 1.025 1 - 1.03 [facility] Urobilinogen, UA 0.2 0.2 - 12 mg/dL [facility] GLUCOSE TOLERANCE 3 HOURon 0 08-23-2024 GLUCOSE TOLERANCE 3 HOUR High mg/dL [facility] Comment on above: GLU FAST 110H (<95) Col: 08/23/24 0738 GLU 1HR 173 (<180) Col: 08/23/24 0839 GLU 2HR 131 (<155) Col: 08/23/24 0939 GLU 3HR 67 (<140) Col: 08/23/24 1040 Interpretation and review of laboratory results Abnormal [facility] RECURRENT VAGINITIS (HTRX)on 08-20-2024 ATOPOBIUM VAGINAE 0 [facility] ATOPOBIUM VAGINAE Not detected [facility] BVAB 2,3 (BACTERIAL VAGINOSIS ASSOCIATED BACTERIA 2, 3); MOBILUNCUS SPP 0 [facility] BVAB 2,3 (BACTERIAL VAGINOSIS ASSOCIATED BACTERIA 2, 3); MOBILUNCUS SPP Not detected [facility] AGUSTIN ALBICANS, PARAPSILOSIS, TROPICALIS 0 [facility] AGUSTIN ALBICANS, PARAPSILOSIS, TROPICALIS Not detected [facility] AGUSTIN GLABRATA 0 [facility] Hea lthcare AGUSTIN GLABRATA Not detected [facility] ealthcare [facility]I [facility]IN KRUSEI Not detected [facility] lthcare CHLAMYDIA TRACHOMATIS 0 [facility] CHLAMYDIA TRACHOMATIS Not detected N [facility] GARDNERELLA VAGINALIS 0 [facility] GARDNERELLA VAGINALIS Not detected N [facility] MEGASPHAERA (TYPES 1, 2) 0 [facility] MEGASPHAERA (TYPES 1, 2) Not detected [facility] MYCOPLASMA GENITALIUM 0 [facility] MYCOPLASMA GENITALIUM Not detected N [facility] NEISSERIA GONORRHOEAE 0 [facility] NEISSERIA GONORRHOEAE Not detected N [facility] TRICHOMONAS VAGINALIS 0 [facility] TRICHOMONAS VAGINALIS Not detected N [facility] e GLUCOSE 1 HOURon 08-19-2024 Glucose [Mass/Vol] 182 mg/dL High NINF - 13 0 mg/dL [facility] Interpretation and review of laboratory results Abnormal [facility] Urinalysis macro (dipstick) panel (U)on 08-19-2024 Bilirubin, UA Positive Negative - 4(70) +++ mg/dL [facility] Comment on above: small Blood, UA Negative Negative - 50 Osmin/mcL [facility] Clarity, UA Clear [facility] re Color, UA Yellow [facility] Glucose, UA Negative Negative - 2000(110) ++++ mg/dL [facility] Interpretation and review of laboratory results Abnormal [facility] Ketones, UA Positive Negative - 160(16) ++++ mg/dL [facility] Comment on above: 15 Leukocytes, UA Negative Negative - 500+++ Oumou/mcL [facility] Nitrite, UA Negative Negative - Positive [facility] pH, UA 6 5 - 9 [facility] Protein, UA Positive Negative - 2000(20) ++++ mg/dL [facility] Comment on above: 30 Spec Grav, UA 1.025 1 - 1.03 [facility] Urobilinogen, UA 0.2 0.2 - 12 mg/dL [facility] Urinalysis macro (dipstick) panel (U)on 07-22-2024 Bilirubin, UA Negative Negative - 4(70) +++ mg/dL [facility] Blood, UA Negative Negative - 50 Osmin/mcL [facility] Clarity, UA Clear [facility] re Color, UA Yellow [facility] e Glucose, UA Negative Negative - 1999(110) ++++ mg/dL [facility] Interpretation and review of laboratory results Abnormal [facility] Ketones, UA Positive Negative - 160(16) ++++ mg/dL [facility] Comment on above: trace Leukocytes, UA Negative Negative - 500+++ Oumou/mcL [facility] Nitrite, UA Negative Negative - Positive [facility] pH, UA 6.5 5 - 9 [facility] Protein, UA Trace Negative - 1999(20) ++++ mg/dL [facility] Spec Grav, UA 1.025 1 - 1.03 [facility] Urobilinogen, UA 0.2 0.2 - 12 mg/dL [facility] CBC and differentialon 07-15 Hematocrit (Bld) [Volume fraction] 42 % 36 - 46 % [facility] Hemoglobin (Bld) [Mass/Vol] 13.6 g/dL 12.0 - 16.0 g/dL [facility] Platelets (Bld) [#/Vol] 392 10*3/uL 150 - 399 10*3/uL [facility] WBC (Bld) [#/Vol] 9.2 10*3/mL 3.3 - 10.0 10*3/mL [facility] CBC without diffon 5 Rbc Mcv (Fl) By Automated Count 85.4 [facility] Drug Screen, Urineon 025 Amphetamine/Methamphe tamine Negative [facility] Barbiturates Negative [facility] Benzodiazepines Negative [facility] Cocaine Metabolite Negative [facility] Methadone Negative [facility] Opiates Negative [facility] Oxycodone Negative [facility] Phencyclidine Negative [facility] Thc Marijuana, Urine Negative [facility] Glucose 1h post 50g loadon 0 07-15-2024 Glucose, 1Hr PP 182 [facility] HBV surface Ag IA Qlon 07-15 Hepatitis B Surface Antigen Negative [facility] HIV 1+2 Ab+HIV1 p24 Ag IA Ql on 07-15-2024 HIV 1&2 AB/AG Non-Reactive [facility] Laboratory - Chemistry and C hemistry - challengeon 07-15-2024 Glucose [Mass/Vol] 111 mg/dL [facility] - Hematology and Cell countson 07-15-2024 HbA1c (Bld) [Mass fraction] 5.5 % 4.0 - 6.0 % [facility] Comment on above: ADA RECOMMENDED LIMI T 4.0 - 6.0 ADA THERAPEUTIC TARGET < 7.0 ACTION SUGGESTED > 7.0 MLR HEMOGLOBIN A1Con 025 [facility]GG immune statuson 07-15-2024 Rubella immune IgG 1.77 [facility] T. pallidum IgG+IgM IA Ql (S )on 07-15-2024 Syphilis Non-Reactive [facility] Type and screenon 07-15-2024 Abo/Rh(D) Positive [facility] US OB TRANSVAGINALon 025 US OB [...] II, MD, PHD at 20-Jun-2024 08:24:08 AM [facility] Normal Not Available Comment on above: Order Comment: US OB TRANSVAGINAL No LMP recorded. TBH PREG QUANT HCGon 05-20- 025 HCG QUANTITATIVE 2792 mIU/mL [facility] lthcare Comment on above: 5-50 0.2-1 WEEK 50-500 1-2 WEEKS 100-5,000 2-3 WEEKS 500-10,000 3-4 WEEKS 1,000-50,000 4-5 WEEKS 10,000-100,000 5-6 WEEKS 15,000-200,000 6-8 WEEKS 10,000-100,000 2-3 [facility] PREG QUANT HCGon 025 HCG QUANTITATIVE 713 mIU/mL [facility]care Comment on above: 5-50 0.2-1 WEEK 50-500 1-2 WEEKS 100-5,000 2-3 WEEKS 500-10,000 3-4 WEEKS 1,000-50,000 4-5 WEEKS 10,000-100,000 5-6 WEEKS 15,000-200,000 6-8 WEEKS 10,000-100,000 2-3 [facility] ALL CBC WITH AUTO DIFFon BASOPHILS ABSOLUTE AUTO 0.1 [facility] Basophils/100 WBC (Bld) 0.8 % 0.2 - 2.0 % [facility] Eosinophils/100 WBC (Bld) 3.5 % 0.9 - 7.0 % [facility] Erythrocyte distribution width (RBC) [Ratio] 13.2 % 11.0 - 15.0 % [facility] Hematocrit (Bld) [Volume fraction] 41.9 % 36.0 - 48.0 % [facility] Health[facility] Hemoglobin (Bld) [Mass/Vol] 13.8 g/dL 12.0 - 16.0 g/dL [facility] IMMATURE GRANULOCYTES ABS AUTO 0.02 [facility] Immature granulocytes/100 WBC (Bld) 0.3 % 0.0 - 0.5 % [facility] LYMPHOCYTES ABSOLUTE AUTO 2.5 [facility] Lymphocytes/100 WBC (Bld) 31.1 % 20.5 - 60.0 % [facility] MCH (RBC) [Entitic mass] 27.7 pg 26.7 - 34.0 pg [facility] MCHC (RBC) [Mass/Vol] 32.9 g/dL 29.9 - 35.2 g/dL [facility] MCV (RBC) [Entitic vol] 84 fL 81.0 - 99.0 fL [facility] MONOCYTES ABSOLUTE AUTO 0.5 [facility] Monocytes/100 WBC (Bld) 6.6 % 1.7 - 12.0 % [facility] Healthcare NEUTROPHILS ABSOLUTE AUTO 4.6 [facility] Neutrophils/100 WBC (Bld) 57.7 % 43.0 - 75.0 % [facility] Platelet mean volume (Bld) [Entitic vol] 9.6 fL 9.5 - 13.5 fL [facility] EO # 0.3 [facility] TB PLT 429 [facility] TB RBC 4.99 [facility] [...] Healthcar e Office Visiton 12-25-2023 Follow-up visit [id number] Javid Prasad 1990 F Date Provider Department Center 12/25/2023 MARIANA WALTER BEBETO Koehler Family History Problem Relation Age of Onset Atrial fibrillation Mother Diabetes Father Kidney disease Father Heart attack Maternal Grandmother Family Status - Relation Status Age at Mother Father Maternal Grandmother Level of Service:97187 [place] OFFICE/OUTPATIENT ESTABLISHED LOW MDM 20 MIN Normal [facility] Cytology Cervical or vaginal smear or [...] She can be sleepy during the day. [place] Sleepiness Scale score: 12. She is sleepy [...] her clinical (more content not included)... Normal [facility] CT HEAD WO CONon 12-21-2021 CT HEAD [...] by: CARLOS GALE Date: 2021-12-21 07:15 Normal [facility] CT TEMPORAL BONES WO CONon 0 [...] foramen are normal. Visualized paranasal sinuses clear. Pressing Machine Operator spaces normal. Orbital contents unremarkable. Posterior fossa structures normal. IMPRESSION: Normal CT of the temporal bones. Electronically authenticated by: LOUIS BRAY Date: 2021-12-21 16:11 Normal [facility] Comprehensive Metabolic Empo n 05-10-2021 Albumin [Mass/Vol] 4.1 g/dL Normal 3.2-5.5 [facility] Comment on above: Performed By: #### E BS LIPID, EBS A1C, EBS CMP #### [facility] [address] Albumin/Globulin [Mass ratio] 1.3 {ratio} Normal [facility] Comment on above: Performed By: #### E BS LIPID, EBS A1C, EBS CMP #### [facility] [address] [place] [id number] [place] ALP [Catalytic activity/Vol] 77 U/L Normal 32-92 [facility] Comment on above: Performed By: #### E BS LIPID, EBS A1C, EBS CMP #### [facility] [address] [place] [id number] [place] ALT [Catalytic activity/Vol] 19 U/L Normal 10-60 [facility] Comment on above: Performed By: #### E BS LIPID, EBS A1C, EBS CMP #### [facility] [address] [place] [id number] [place] AST [Catalytic activity/Vol] 18 U/L Normal 10-42 [facility] Comment on above: Performed By: #### E BS LIPID, EBS A1C, EBS CMP #### [facility] [address] [place] [id number] [place] Bilirubin [Mass/Vol] 0.3 mg/dL Normal 0.3-1.2 [facility] Comment on above: Performed By: #### E BS LIPID, EBS A1C, EBS CMP #### [facility] [address] [place] [id number] [place] Calcium [Mass/Vol] 9.2 mg/dL Normal 8.2-10.2 [facility] Comment on above: Performed By: #### E BS LIPID, EBS A1C, EBS CMP #### [facility] [address] [place] [address] [place] Chloride [Moles/Vol] 104 mmol/L Normal 95-114 [facility] Comment on above: Performed By: #### E BS LIPID, EBS A1C, EBS CMP #### [facility] [address] CO2 [Moles/Vol] 24.1 mmol/L Normal 22.0-30.0 [facility] Comment on above: Performed By: #### E BS LIPID, EBS A1C, EBS CMP #### [facility] [address] Creatinine [Mass/Vol] 0.69 mg/dL Normal 0.44-1.03 [facility] Comment on above: Performed By: #### E BS LIPID, EBS A1C, EBS CMP #### [facility] [address] [place] [address] Estimated GFR ( Liz > 60 [facility] Comment on above: Result Comment: GFR estimated reference range: According to KDOQI guidelines, <60 ml/min/1.73m2 is sufficient to diagnose a patient with chronic kidney disease. Performed By: #### E BS LIPID, EBS A1C, EBS CMP #### [facility] [address] [place] [address] Estimated GFR (Non- Am > 60 [facility] Comment on above: Performed By: #### E BS LIPID, EBS A1C, EBS CMP #### [facility] [address] [place] [address] [place] Globulin (S) [Mass/Vol] 3.1 g/dL [facility] Comment on above: Performed By: #### E BS LIPID, EBS A1C, EBS CMP #### [facility] [address] [place] [address] [place] Glucose [Mass/Vol] 106 mg/dL High 70-100 [facility] Comment on above: Result Comment: ADA recommended reference range Performed By: #### E BS LIPID, EBS A1C, EBS CMP #### [facility] [address] [place] [address] [place] Potassium [Moles/Vol] 4.0 mmol/L Normal 3.5-5.1 [facility] Comment on above: Performed By: #### E BS LIPID, EBS A1C, EBS CMP #### [facility] [address] Protein [Mass/Vol] 7.2 g/dL Normal 6.1-7.9 [facility] Comment on above: Performed By: #### E BS LIPID, EBS A1C, EBS CMP #### [facility] [address] Sodium [Moles/Vol] 137 mmol/L Normal 136-146 [facility] Comment on above: Performed By: #### E BS LIPID, EBS A1C, EBS CMP #### [facility] [address] [place] [address] Urea nitrogen [Mass/Vol] 10 mg/dL Normal 9-23 [facility] Comment on above: Performed By: #### E BS LIPID, EBS A1C, EBS CMP #### [facility] [address] [place] [address] EBS A1C with Estimated Avalec hayes 05-10-2021 Glucose [Mass/Vol] 111 mg/dL Normal [facility] Comment on above: Result Comment: PERF ORMED BY: [place] [address] PATHOLOGIST LIGHT RAIL SIGNAL TECHNICIAN JERRY RAMSEY M.D. Performed By: #### E BS LIPID, EBS A1C, EBS CMP #### [facility] [address] [place] [address] HbA1c (Bld) [Mass fraction] 5.5 % Normal 4.3-5.6 [facility] Comment on above: Result Comment: Incr eased risk for diabetes: 5.7 - 6.4 diabetes: >6.4 glycemic control for adults with diabetes: <7.0 Performed By: #### E BS LIPID, EBS A1C, EBS CMP #### [facility] [address] [place] [address] Lipid Profileon 05-10-2021 Cholesterol [Mass/Vol] 202 mg/dL High 140-200 [facility] Comment on above: Result Comment: Chol less than 200 mg/dl low risk Chol 201-239 mg/dl borderline risk Chol 240 mg/dl and greater high risk Performed By: #### E BS LIPID, EBS A1C, EBS CMP #### [facility] [address] [place] [address] [place] Cholesterol in HDL [Mass/Vol] 37 mg/dL Normal 35-85 [facility] Comment on above: Result Comment: HDL CHOL ATP-III CLASSIFICATION Cardiovascular Risk HDL > or equal to 60 mg/dL LOW HDL < 40 mg/dL HIGH Performed By: #### E BS LIPID, EBS A1C, EBS CMP #### [facility] [address] Cholesterol.total/Cho lesterol in HDL [Mass ratio] 5.5 {ratio} Normal <5.0 [facility] Comment on above: Result Comment: PERF ORMED BY: [place] [address] PATHOLOGIST LIGHT RAIL SIGNAL TECHNICIAN JERRY RAMSEY M.D. Performed By: #### E BS LIPID, EBS A1C, EBS CMP #### [facility] [address] LDL Cholesterol,Calculate d 125 mg/dL High 0-100 [facility] Comment on above: Result Comment: LDL ATP III CLASSIFICATION LDL less than 100 mg/dL Optimal LDL 100-129 mg/dL Near or above optimal LDL 130-159 mg/dL Borderline high LDL 160-189 mg/dL High LDL greater than 189 mg/dL Very high Performed By: #### E BS LIPID, EBS A1C, EBS CMP #### [facility] [address] [place] [address] [place] Triglyceride w/Reflex 199 mg/dL High 35-149 [facility] Comment on above: Result Comment: TRIG ATP III CLASSIFICATION TRIG less than 150 mg/dL Normal TRIG 150-199 mg/dL Borderline high TRIG 200-500 mg/dL High TRIG greater than 500 mg/dL Very high Standard traceable to the Center for Disease Conrtrol and Prevention (CDC) test method. Performed By: #### E BS LIPID, EBS A1C, EBS CMP #### [facility] [address] [place] [address] [facility] VLDL CHOLESTEROL 39 mg/dL Normal [facility] Comment on above: Performed By: #### E BS LIPID, EBS A1C, EBS CMP #### [facility] [address] [place] [id number] [facility] Vital Signs Date Time Vital Sign Value Performing Clinician Ronaldo coello 12-16-2024 13:08-0400 Body mass index (BMI) [Ratio] 39.98 kg/m2 Maureen SINGLETON Work Phone: [facility] 12-16-2024 13:08-0400 Body weight 133.72 kg Maureen SINGLETON Work Phone: [facility] 12-16-2024 13:08-0400 Diastolic blood pressure 70 mm[Hg] Maureen SINGLETON Work Phone: [facility] 12-16-2024 13:08-0400 Systolic blood pressure 120 mm[Hg] Maureen SINGLETON Work Phone: [facility] 12-02-2024 08:57-0400 Body mass index (BMI) [Ratio] 39.3 kg/m2 Miguel Riddhi DO Work Phone: [facility] 12-02-2024 08:57-0400 Body weight 131.45 kg Miguel Riddhi DO Work Phone: [facility] 12-02-2024 08:57-0400 Diastolic blood pressure 76 mm[Hg] Miguel Riddhi DO Work Phone: [facility] 12-02-2024 08:57-0400 Systolic blood pressure 114 mm[Hg] Miguel Riddhi DO Work Phone: [facility] 11-28-2024 11:44-0400 Body height 182.9 cm Saul Granados MD Work Phone: [facility] 11-28-2024 11:44-0400 Body mass index (BMI) [Ratio] 38.9 kg/m2 Saul Granados MD Work Phone: [facility] 11-28-2024 11:44-0400 Body weight 130.09 kg Saul Granados MD Work Phone: [facility] 11-28-2024 11:44-0400 Diastolic blood pressure 60 mm[Hg] Saul Granados MD Work Phone: [facility] 11-28-2024 11:44-0400 Heart rate 96 /min Saul Granados MD Work Phone: [facility] 11-28-2024 11:44-0400 Systolic blood pressure 114 mm[Hg] Saul Granados MD Work Phone: [facility] 11-18-2024 09:04-0400 Body mass index (BMI) [Ratio] 38.52 kg/m2 Miguel Riddhi DO Work Phone: [facility] 11-18-2024 09:04-0400 Body weight 128.82 kg Miguel Riddhi DO Work Phone: [facility] 11-18-2024 09:04-0400 Diastolic blood pressure 70 mm[Hg] Miguel Riddhi DO Work Phone: [facility] 11-18-2024 09:04-0400 Systolic blood pressure 112 mm[Hg] Miguel Riddhi DO Work Phone: [facility] 11-03-2024 15:07-0400 Body mass index (BMI) [Ratio] 38.63 kg/m2 Miguel Riddhi DO Work Phone: [facility] 11-03-2024 15:07-0400 Body weight 129.18 kg Miguel Riddhi DO Work Phone: [facility] 11-03-2024 15:07-0400 Diastolic blood pressure 74 mm[Hg] Miguel Riddhi DO Work Phone: [facility] 11-03-2024 15:07-0400 Systolic blood pressure 110 mm[Hg] Miguel Riddhi DO Work Phone: [facility] 10-21-2024 08:41-0400 Body mass index (BMI) [Ratio] 38.44 kg/m2 Maureen Montello PA Work Phone: [facility] 10-21-2024 08:41-0400 Body weight 128.55 kg Maureen Montello PA Work Phone: [facility] 10-21-2024 08:41-0400 Diastolic blood pressure 78 mm[Hg] Maureen Paula PA Work Phone: [facility] 10-21-2024 08:41-0400 Systolic blood pressure 124 mm[Hg] Maureen Paula PA Work Phone: [facility] 09-16-2024 09:49-0400 Body mass index (BMI) [Ratio] 37.57 kg/m2 Miguel Riddhi DO Work Phone: [facility] 09-16-2024 09:49-0400 Body weight 125.65 kg Miguel Riddhi DO Work Phone: [facility] 09-16-2024 09:49-0400 Diastolic blood pressure 76 mm[Hg] Miguel Riddhi DO Work Phone: [facility] 09-16-2024 09:49-0400 Systolic blood pressure 126 mm[Hg] Miguel Riddhi DO Work Phone: [facility] 08-19-2024 14:52-0400 Body mass index (BMI) [Ratio] 37.57 kg/m2 Maureen Paula PA Work Phone: [facility] 08-19-2024 14:52-0400 Body weight 125.65 kg Maureen Montello PA Work Phone: [facility] 08-19-2024 14:52-0400 Diastolic blood pressure 78 mm[Hg] Maureen Montello PA Work Phone: [facility] 08-19-2024 14:52-0400 Systolic blood pressure 128 mm[Hg] Maureen Paula PA Work Phone: [facility] 07-22-2024 09:47-0400 Body mass index (BMI) [Ratio] 37.3 kg/m2 Miguel Riddhi DO Work Phone: [facility] 07-22-2024 09:47-0400 Body weight 124.74 kg Miguel Riddhi DO Work Phone: [facility] 07-22-2024 09:47-0400 Diastolic blood pressure 86 mm[Hg] Miguel Riddhi DO Work Phone: [facility] 07-22-2024 09:47-0400 Systolic blood pressure 130 mm[Hg] Miguel Riddhi DO Work Phone: [facility] 02-19-2024 14:07-0500 Body mass index (BMI) [Ratio] 37.95 kg/m2 Maureen Paula PA Work Phone: [facility] 02-19-2024 14:07-0500 Body weight 126.92 kg Maureen Paula PA Work Phone: [facility] 02-19-2024 14:07-0500 Diastolic blood pressure 74 mm[Hg] Maureen Montello PA Work Phone: [facility] 02-19-2024 14:07-0500 Systolic blood pressure 114 mm[Hg] Maureen Montello PA Work Phone: [facility] 01-16-2024 16:38-0400 Body height 182.9 cm Miguel Riddhi DO Work Phone: [facility] 01-16-2024 16:38-0400 Body mass index (BMI) [Ratio] 37.57 kg/m2 Miguel Riddhi DO Work Phone: [facility] 01-16-2024 16:38-0400 Body weight 125.65 kg Miguel Riddhi DO Work Phone: [facility] 01-16-2024 16:38-0400 Diastolic blood pressure 80 mm[Hg] Miguel Riddhi DO Work Phone: [facility] 01-16-2024 16:38-0400 Systolic blood pressure 124 mm[Hg] Miguel Riddhi DO Work Phone: [facility] 12-25-2023 10:12-0400 Body height 182.9 cm Miguel Riddhi DO Work Phone: [facility] 12-25-2023 10:12-0400 Body mass index (BMI) [Ratio] 37.57 kg/m2 Miguel Riddhi DO Work Phone: [facility] 12-25-2023 10:12-0400 Body weight 125.65 kg Miguel Riddhi DO Work Phone: [facility] 12-25-2023 10:12-0400 Diastolic blood pressure 84 mm[Hg] Miguel Riddhi DO Work Phone: [facility] 12-25-2023 10:12-0400 Systolic blood pressure 122 mm[Hg] Miguel Riddhi DO Work Phone: [facility] Healthcare Encounters Encounter Date Encounter Type Care Provider Facility Start: 12-18-2024 End: 12-18-2024 Telephone encounter Tessie Carranza RN [facility] at [facility] Start: 12-16-2024 End: 12-16-2024 Bamboo flowsheet Maureen SINGLETON Work Phone: [facility] Start: 12-16-2024 End: 12-16-2024 Bamboo flowsheet Maureen SINGLETON Work Phone: [facility] Start: 12-16-2024 End: 12-16-2024 flow sheet Maureen SINGLETON Work Phone: [facility] Comment on above: 35 weeks gestation o f ([facility]); Third trimester ([facility]); Gestational diabetes mellitus (GDM), antepartum, gestational diabetes method of control unspecified ([facility]) Start: 12-16-2024 End: 12-16-2024 ambulatory MAUREEN FELIZ Not Available Start: 12-12-2024 End: 12-12-2024 Clinisync Result Encounter Miguelkarey Mattsono DO Work Phone: [facility] External Department Unsolicited Start: 12-12-2024 End: 12-12-2024 Clinisync Result Encounter Miguel Riddhi DO Work Phone: [facility] External [facility] Unsolicited Start: 12-11-2024 End: 12-11-2024 [facility] Start: 12-09-2024 End: 12-09-2024 Orders Only Mary Scanlon PA-C Work Phone: [facility] - Labor Start: 12-06-2024 End: 12-06-2024 Clinisync Result Encounter Miguel Riddhi DO Work Phone: [facility] External [facility] Unsolicited Start: 12-06-2024 End: 12-06-2024 Clinisync Result Encounter Miguel Riddhi DO Work Phone: [facility] External [facility] Unsolicited Start: 12-03-2024 End: 12-03-2024 Orders Only Hanny DIAZ Work Phone: [facility]- Medicine at [facility] Start: 12-02-2024 End: 12-02-2024 Bamboo flowsheet Miguel Riddhi DO Work Phone: [facility] Start: 12-02-2024 End: 12-02-2024 Bamboo flowsheet Miguel Riddhi DO Work Phone: [facility] Start: 12-02-2024 End: 12-02-2024 flow sheet Miguel Riddhi DO Work Phone: [facility] Comment on above: Third trimester preg shayla ([facility] 33 weeks gestation of ([facility]); Gestational diabetes mellitus (GDM), antepartum, gestational diabetes method of control unspecified ([facility] Start: 12-02-2024 End: 12-02-2024 ambulatory MIGUEL RIDDHI Not Available Start: 11-28-2024 End: 11-28-2024 Office outpatient new 45 minutes Saul Granados MD Work Phone: [facility]- [facility] at [facility] Comment on above: Insulin controlled g estational diabetes mellitus (GDM) in third trimester (Primary Dx); Prediabetes in mother during ; Family history of type 2 diabetes mellitus; Obesity affecting , antepartum, unspecified obesity type; 32 weeks gestation of Start: 11-28-2024 End: 11-28-2024 ambulatory [facility] Start: 11-27-2024 End: 11-27-2024 Clinisync Result Encounter Miguel Riddhi DO Work Phone: [facility] External Department Unsolicited Start: 11-27-2024 End: 11-27-2024 Clinisync Result Encounter Miguel Riddhi DO Work Phone: [facility] External [facility] Unsolicited Start: 11-26-2024 End: 11-26-2024 Documentation procedure Yojana Diehl RN [facility] at [facility] Start: 11-26-2024 End: 11-26-2024 Telephone encounter Yojana Diehl RN [facility] at [facility] Start: 11-25-2024 End: 11-25-2024 Telephone encounter Naomie LUQUE Work Phone: [facility]- [facility] at [facility] Start: 11-24-2024 End: 11-24-2024 Chart abstracting Scanning Provider External [facility] Start: 11-20-2024 End: 11-20-2024 ambulatory MIGUEL R [facility] Start: 11-18-2024 End: 11-18-2024 Bamboo flowsheet Miguel Riddhi DO Work Phone: [facility] Start: 11-18-2024 End: 11-18-2024 Bamboo flowsheet Miguel Riddhi DO Work Phone: JOSY HERNANDEZ Start: 11-18-2024 End: 11-18-2024 ambulatory MIGUEL RIDDHI Not Available Start: 11-18-2024 End: 11-18-2024 flow sheet Miguel Riddhi DO Work Phone: JOSY HERNANDEZ Comment on above: Third trimester preg shayla ([facility]); 31 weeks gestation of ([facility]); Gestational diabetes mellitus (GDM), antepartum, gestational diabetes method of control unspecified ([facility]) Start: 11-14-2024 End: 11-14-2024 Clinisync Result Encounter Miguel Riddhi DO Work Phone: [facility] External Department Unsolicited Start: 11-14-2024 End: 11-14-2024 Clinisync Result Encounter Miguel Riddhi DO Work Phone: [facility] External Department Unsolicited Start: 11-13-2024 End: 11-13-2024 Chart abstracting Generic External Data Provider Maternal- Medicine at [facility] Start: 11-12-2024 [facility] Start: 11-10-2024 End: 11-10-2024 Clinisync Result Encounter Miguel Riddhi DO Work Phone: [facility] External Department Unsolicited Start: 11-10-2024 End: 11-10-2024 Clinisync Result Encounter Miguel Riddhi DO Work Phone: [facility] External Department Unsolicited Start: 11-03-2024 End: 11-03-2024 flow sheet Miguel Riddhi DO Work Phone: [facility] Comment on above: 29 weeks gestation o f ([facility]); Third trimester ([facility]) Start: 11-03-2024 End: 11-03-2024 ambulatory MIGUEL [...] [facility] Start: 10-21-2024 End: 10-21-2024 ambulatory [facility] Start: 10-21-2024 End: 10-21-2024 flow sheet Maureen SINGLETON Work Phone: [facility] Comment on above: Size of fetus incons istent with dates in second trimester ([facility]) (Primary Dx); Second trimester ([facility]); 27 weeks gestation of ([facility]) Start: 10-21-2024 End: 10-21-2024 ambulatory MAUREEN FELIZ Not Available Start: 09-16-2024 End: 09-16-2024 ambulatory MIGUEL RIDDHI Not Available Start: 09-16-2024 End: 09-16-2024 flow sheet Miguel Riddhi DO Work Phone: [facility] Comment on above: Second trimester pre gnancy; 22 weeks gestation of ; Elevated glucose tolerance test Start: 09-16-2024 End: 09-16-2024 ambulatory MIGUEL RIDDHI Not Available Start: 09-02-2024 ambulatory [facility] Start: 08-23-2024 End: 08-23-2024 Clinisync Result [...] test Start: 08-19-2024 End: 08-19-2024 ambulatory MAUREEN PAULA Not Available Start: 08-19-2024 End: 08-19-2024 Clinisync [...] [facility] External Department Unsolicited Start: 06-26-2024 ambulatory [facility] Start: 06-19-2024 End: 06-19-2024 ambulatory MIGUEL MATTSONO Not Available Start: 05-21-2024 ambulatory [facility] Start: 05-20-2024 End: 05-20-2024 Clinisync Result [...] [facility] External Department Unsolicited Start: 04-21-2024 ambulatory [facility] Start: 04-14-2024 ambulatory [facility] Start: 03-07-[facility]24 [facility] Start: 02-25-2024 ambulatory [facility] Start: 02-19-2024 End: 02-19-2024 Bamboo flowsheet Maureen SINGLETON Work Phone: [facility] Start: 02-19-2024 End: 02-19-2024 Bamboo flowsheet Maureen SINGLETON Work Phone: [facility] Start: 02-19-2024 End: 02-19-2024 Postop follow up visit related to original px Maureen SINGLETON Work Phone: [facility] Comment on above: Postop check Start: 02-19-2024 End: 02-19-2024 ambulatory MAUREEN FELIZ Not Available Start: 02-14-2024 [facility] Start: 02-08-2024 End: 02-08-2024 Clinisync Result [...] External Department Unsolicited Start: 01-16-2024 ambulatory VIRAL [facility] Start: 01-16-2024 End: 01-16-2024 Office outpatient visit 15 minutes Miguel Riddhi DO Work Phone: [facility] Comment on above: Pre-op examination; Uterine leiomyoma, unspecified location Start: 01-16-2024 End: 01-16-2024 Preprocedural examination done Miguel Riddhi DO Work Phone: [facility] Start: 01-16-2024 End: 01-16-2024 ambulatory MIGUEL RIDDHI [...] bleeding Start: 12-25-2023 End: 12-25-2023 ambulatory MARIANA [facility] Start: 12-11-2023 End: 12-11-2023 Clinisync Result Encounter Aristides Araiza DO Work Phone: [facility] External Department Unsolicited Start: 12-11-2023 End: 12-11-2023 Clinisync Result Encounter Aristides Araiza DO Work Phone: [facility] External Department Unsolicited Start: 12-12-2022 End: 12-15-2022 ambulatory [facility] Start: 06-19-2022 End: 06-20-2022 ambulatory Isabella Raygoza APRN-RAILROAD DETECTIVE Facility:[facility] Start: 05-30-2022 End: 05-31-2022 ambulatory Adebayo Lathma DO Facility:[facility] Start: 05-16-2022 End: 05-17-2022 ambulatory Isabella Raygoza APRN-RAILROAD DETECTIVE Facility:[facility] Start: 12-20-2021 End: 12-21-[address] [...] gestational diabetes method of control unspecified Miroslava Tirnidad RN Work Phone: Comment on above: Gestational [...] Td Vaccines (7 - Td or Tdap) [facility] Start: 12-12-2028 Screening for malign ant neoplasm of cervix [facility] Start: 12-12-2026 Screening for malign ant neoplasm of cervix Pap Smear [facility] Start: 11-28-2025 Adult BMI Screening Adult BMI Screen ing [facility] Start: 11-28-2025 Tobacco Screening Tobacco Screening [facility] Start: 01-06-2025 End: 01-06-2025 Patient encounter procedure 01/06/2025 9:10 AM EDT Routine JOSY Gill OBED [address] [phone] Miguel Hannon DO [address] [address] [facility] Start: 12-30-2024 End: 12-30-2024 Patient encounter procedure 12/30/2024 8:30 AM EDT Routine NOMJosh Gill OBDEBBIEN [address] [place] [address] Maureen Feliz PA [address] [place] [address] [facility] Start: 12-25-2024 End: 12-25-2024 Telemedicine consultation with patient 12/25/2024 3:00 PM EDT Telemedicine Maternal- Medicine at [facility] [address] [place] [phone] Hanny Ware, BLOOD BANK CALENDAR CONTROL CLERK-RAILROAD DETECTIVE [address] [place] [address] Maternal- Medicine at [facility] Start: 12-23-2024 End: 12-23-2024 Patient encounter procedure 12/23/2024 11:30 AM EDT Routine JOSY HERNANDEZ [address] [place] [address] Miguel Hannon DO [address] [address] [facility] Start: 12-18-2024 End: 12-18-2024 Telemedicine consultation with patient 12/18/2024 8:00 AM EDT Telemedicine Maternal- Medicine at [facility] [address] [place] [phone] Hanny Ware, BLOOD BANK CALENDAR CONTROL [facility] [address] [facility] [place] [address] Maternal- Medicine at [facility] Start: 12-16-2024 End: 12-16-2024 Patient encounter procedure JOSY HERNANDEZ Comment on above: Arrived Start: 12-15-2024 Influenza vaccination N [facility] Start: 12-11-2024 End: 12-11-2024 Patient encounter procedure 12/11/2024 1:00 PM EDT Appointment [facility] [address] [place] [phone] [facility] Start: 12-02-2024 End: 12-02-2024 Patient encounter procedure [facility] HERNANDEZ Comment on above: Arrived Start: 11-20-2024 End: 11-20-2024 Telemedicine consultation with patient 11/20/2024 10:30 AM EDT Telemedicine Maternal- Medicine at [facility] [address] [place] [phone] Miroslava Trinidad RN [address] [address] Juli Quezada, ENE Mayo, Naomie, ENE [address] [place] [address] Maternal- Medicine at [facility] Start: 11-18-2024 End: 05-21-2025 US biophysical profile [...] EDT Routine [facility] [address] [place] [phone] Miguel Hannon DO [address] [address] [facility] Start: 11-03-2024 End: 11-03-2024 Patient encounter procedure [facility] Comment on above: Arrived Start: 11-03-2024 End: 11-03-2024 Professional / ancillary services management 11/03/2024 2:00 PM EDT Ancillary Procedure [facility] [address] [place] [address] [facility] Start: 10-21-2024 End: [...] AM EDT Routine [facility] [address] [place] [phone] Miguel Hannon DO [address] [place] [address] [facility] Start: 09-16-2024 End: 09-16-2024 Professional / ancillary services management 09/16/2024 8:30 AM EDT Ancillary Procedure [facility] [address] [place] [address] [facility] Start: 08-19-2024 End: 08-19-2024 Patient encounter procedure 08/19/2024 2:20 PM EDT Routine [facility] [address] [place] [address] Maureen Feliz PA [address] [place] [address] [facility] Start: 08-19-2024 End: 09-19-2024 Alpha fetoprotein, maternal Alpha fetoprotein, maternal Lab Routine Need for maternal serum alpha-protein (MSAFP) screening Expected: 08/19/2024 (Approximate), Expires: 09/19/2024 [facility] Comment on above: Expected: 08/19/2024 (Approximate), Expires: 09/19/2024 Start: 08-19-2024 End: 08-19-2025 Measurement of glucose 3 hours after glucose challenge for glucose tolerance test Glucose tolerance, 3 hours Lab Routine Elevated glucose tolerance test Expected: 08/19/2024 (Approximate), Expires: 08/19/2025 [facility] Comment on above: Expected: 08/19/2024 (Approximate), Expires: [...] mellitus screening Expected: 07/22/2024 (Approximate), Expires: 07/22/2025 [facility] Work Phone: Comment on above: Expected: 07/22/2024 (Approximate), Expires: 07/22/2025 Start: 07-22-2024 End: 07-22-2024 Patient encounter procedure [facility] Comment on above: Arrived Start: 06-19-2024 End: 06-19-2024 ambulatory 06/19/2024 2:30 PM EST Initial [facility] [address] [place] [phone] [facility] Start: 06-19-2024 End: 06-19-2024 Professional / ancillary services management 06/19/2024 2:00 PM EST Ancillary Procedure [facility] [address] [place] [phone] [facility] Start: 02-19-2024 End: 02-19-2024 Patient encounter procedure 02/19/2024 1:40 PM EST Office Visit [facility] [address] [place] [phone] Maureen Feliz PA [address] [place], [place] [id number] Arrived [facility] Comment on above: Arrived Start: 01-16-2024 End: 01-16-2024 Patient encounter procedure 01/16/2024 4:00 PM EDT Consult [facility] [address] [place] [phone] Miguel Hannon, DO [address] [address] Arrived [facility] Comment on above: Arrived Start: 12-25-2023 End: 2024 Antimullerian hormone (AMH) Antimullerian hormone (AMH) Lab Routine Female infertility PCOS (polycystic ovarian syndrome) Dysfunctional uterine bleeding Expected: 12/25/2023 (Approximate), Expires: 2024 [facility] Comment on above: Expected: 12/25/2023 (Approximate), Expires: 2024 Start: 12-25-2023 End: 2024 DHEA DHEA Lab Routine PCOS (polycystic ovarian syndrome) Expected: 12/25/2023 (Approximate), Expires: 2024 [facility] Comment on above: Expected: 12/25/2023 (Approximate), Expires: 2024 Start: 12-25-2023 End: 12-25-2023 Patient encounter procedure [facility] Comment on above: Arrived Start: 12-16-2023 Influenza vaccination Influenza Vacc ine (#1) [facility] Start: 12-11-2023 End: 12-11-2023 Patient encounter procedure 12/11/2023 8:00 AM EDT Procedure Visit [facility] EXT DEP Aristides Araiza, [address] [place] [address] [facility] Start: 05-17-2017 Screening for malign ant neoplasm of cervix [facility] Start: 12-23-2012 Screening for malign ant neoplasm of cervix Pap Smear [facility] Start: 12-23-2010 DTaP,Tdap and Td Vaccines (1 - Tdap) DTaP,Tdap and Td Vaccines (1 - Tdap) [facility] Start: 12-23-2009 Adult BMI Follow Up Plan Adult BMI Follow Up Plan [facility] Start: 12-23-2009 Adult BMI Screening Adult BMI Screen ing [facility] Start: 2003 Depression Screening Depression Scre ening [facility] Start: 2003 Tobacco Screening Tobacco Screening [facility] CBC W Auto Different ial panel [...] unspecified formulation Aristides Araiza DO Work Phone: [facility] Payers Date Payer Category Payer Unknown [id number] 2024 [facility] Managed Care - Other [id number] 2024 Unknown [id number] 2023 [facility] [id number] 2023 Unknown [id number] 2022 Unknown 2021 Self-pay 2019 Unknown [id number] 1991 Unknown [id number] 2.16.840.1.311758.3.579.2.593 1991 Unknown [id number] 2.16.840.1.452469.3.579.2.593 1991 Unknown [id number] 2.16.840.1.403645.3.579.2.196 1991 Unknown [id number] 2.16.840.1.468936.3.579.2.196 1991 Unknown [id number] 2.16.840.1.157258.3.579.2.196 1991 Unknown [id number] 2.16.840.1.352143.3.579.2.173 1991 Unknown [id number] 2.16.840.1.965627.3.579.2.128 1991 Unknown [id number] 2.16.840.1.572464.3.579.2.1285 1991 Unknown [id number] 2.16.840.1.574400.3.579.2.1285 1991 Unknown [id number] 2.16.840.1.263179.3.579.2.1258 1991 Unknown [id number] 2.16.840.1.648078.3.579.2.1258 1991 Unknown [id number] 2.16.840.1.877672.3.579.2.1258 1991 Unknown [id number] 2.16.840.1.486518.3.579.2.1258 1991 Unknown [id number] 2.16.840.1.682908.3.579.2.1258 1991 Unknown [id number] 2.16.840.1.126084.3.579.2.1258 1991 Unknown [id number] 2.16.840.1.311814.3.579.2.1258 1991 Unknown [id number] 2.16.840.1.470073.3.579.2.1258 1991 Unknown [id number] 2.16.840.1.232661.3.579.2.1258 1991 Unknown [id number] 2.16.840.1.553775.3.579.2.9 1991 Unknown [id number] 2.16.840.1.340771.3.579.2.9 1991 Unknown [id number] 2.16.840.1.332832.3.579.2.1258 1991 Unknown [id number] 2.16.840.1.493108.3.579.2.9 1991 Unknown [id number] 2.16.840.1.081989.3.579.2.9 1959 Unknown [id number] Social History Date Type Detail Facility Start: 11-19-2023 End: 11-28-2024 Tobacco smoking status RUST Never smoked tobacco [facility] Start: 11-19-2023 End: 11-28-2024 Tobacco use and exposure Smokeless tobacco non-user [facility] Start: 12-25-2023 End: 12-16-2024 Alcoholic beverage intake Lifetime non-drinker (finding) [facility] Start: 11-19-2023 End: 11-28-2024 History of Social function [facility] Start: 11-19-2023 End: 11-28-2024 Tobacco use panel [facility] Start: 1990 Sex assigned at Not on file [facility] Start: 04-26-2024 [facility] Start: 11-11-2024 Sex Female (finding) [facility] Within the past 12 months we worried whether our food would run out before we got money to buy more. Never True [facility] Start: 11-28-2024 Alcoholic beverage intake Ex-drinker (finding) [facility] Medical Equipment Procedure Code Equipment Code Equipment Origin al Text Equipment Identifier Dates 1 strip by In Vi tro route Daily Use in the morning prior to breakfast, 1 hour after each meal for a total of 4times daily. [id number] Start: 11-10-2024 End: 12-10-2024 1 each by In Vit ro route Daily Use to check FSBS four times daily [id number] Start: 11-10-2024 End: 12-10-2024 Use daily for insulin [id number] Start: 11-28-2024 Clinical Notes 06-19-2022 to 12-18-2024 Telephone Encounter - Tessie Carranza RN - 12/18/2024 11:26 AM EDTTelephone Encounter - Tessie Carranza RN - 12/18/2024 11:26 AM AREIL Delvalle - 12/16/2024 1:10 PM EDT Note Date & Type Note Facility 12-18-2024 Miscellaneous Notes RN spoke to Javid via phone. Javid is unable to connect to [employer] Video call with Hanny Ware NP. Patient stated that MyChart keeps kicking her out . Another link sent by Hanny to patient's phone but patient was unable to open link or connect to the internet. Hanny reviewed the patient's sugar logs and increased the patient's Insulin Lantus to 20 units at night. Patient verbalized understanding and appointment was rescheduled to 12/25/24 with Hanny Ware NP. documented in this encounter [facility] 12-18-2024 Telephone encounter Note RN spoke to Javid via phone. Javid is unable to connect to [employer] Video call with Hanny Ware NP. Patient stated that MyChart keeps kicking her out . Another link sent by Hanny to patient's phone but patient was unable to open link or connect to the internet. Hanny reviewed the patient's sugar logs and increased the patient's Insulin Lantus to 20 units at night. Patient verbalized understanding and appointment was rescheduled to 12/25/24 with Hanny Ware NP. [facility] 12-16-2024 History of Present illness Narrative Reason [...] mg, Daily RT Blood Glucose Monitoring Suppl (Bix Glucometer) w/Device kit 1 kit, Does not [...] PLAN ICD-10-CM 1. 35 weeks gestation of ([facility]) Z3A.35 POCT urinalysis dipstick manually resulted [...] documented in this encounter [facility] 12-09-2024 Miscellaneous Notes Called pt to discuss her insulin change for this week. Mary Scanlon reviewed her blood sugars and would like her to increase her lantus in the evening to 16 units. Pt verbalized understanding, we will pull her report again next week. documented in this encounter [facility] 12-09-2024 Telephone encounter Note Called pt to discuss her insulin change for this week. Mary Scanlon reviewed her blood sugars and would like her to increase her lantus in the evening to 16 units. Pt verbalized understanding, we will pull her report again next week. [facility] 12-03-2024 Miscellaneous Notes Called patient regarding Dexcom CGM report from 11/29 to 12/01/24 and had to leave a message. RADHA Mathur, reviewed patient's report and increased her Lantus dose to 12 units each evening. Will send patient a [email or web address] message as well and asked patient to confirm with us via phone or MyChart that she received the dose change information. documented in this encounter [facility] 12-03-2024 Telephone encounter Note Called patient regarding Dexcom CGM report from 11/29 to 12/01/24 and had to leave a message. RADHA Mathur, reviewed patient's report and increased her Lantus dose to 12 units each evening. Will send patient a MyChart message as well and asked patient to confirm with us via phone or MyChart that she received the dose change information. [facility] 12-02-2024 History of Present illness Narrative [...] nursing note reviewed. Exam conducted with a solid tire tuber machine operator present. Vitals: Estimated body mass index is [...] Pt to have repeat anatomy scan at [facility] on 12/11. Discussed delivery between 37-39 weeks d/t being on Lantus. Orders Placed This Encounter Procedures POCT urinalysis dipstick manually resulted Follow Up: Patient is to return to office in 2 week for routine OB appointment. Documented by Katarzyna Malagon LPN on behalf of: Miguel Hannon DO documented in this encounter [facility] 11-28-2024 History of Present illness Narrative Headache/epigastric pain/blurry vision/swelling? No Cramping/contractions? No Spotting/vaginal bleeding? No Loss or gush of fluid like your water may have broken? No Do you have cats at home? No Do you change the litter box (reason: risk of toxoplasmosis)? N/A Genetic testing done this here or other office? No Have you been seen here at [facility] in a previous ? No Recent ER visits or hospitalizations? No Bring blood sugar log or meter with you today? (Please bring them with you for every visit at [facility]) Yes, Dexcom report Flu vaccine (Feb-June)? [...] TESTS AND ULTRASOUND REPORTS: Referral records and [facility] chart were reviewed Pertinent Ultrasound findings are see formal ultrasound report. PHYSICAL EXAMINATION: BP 114/60 (BP Site: Right Arm, BP Postition: Sitting) Pulse 96 Ht 182.9 cm (6') Wt 130.1 kg (286 lb 12.8 oz) LMP 04/12/2024 BMI 38.90 kg/m Well-appearing in no distress. Respirations not labored, speaking comfortably in full sentences Gravid abdomen IMAGING No image results found. OVERALL ASSESSMENT -Javid D Osmar is a pleasant 33 y.o. at [...] more likely to fail compared to insulin. manager intermediate data on children whose mothers took oral [...] CGM we will be reviewed weekly by MFMckayla. Status post diabetic education nutrition counseling at [facility] Detailed anatomy ultrasound scheduled for 12/11/2024 in [facility] Repeat growth ultrasound at 38 weeks gestation, through primary OB Recommend weekly testing for the remainder of , through primary OB Delivery recommendations : Recommend delivery at [id number] Discuss delivery if estimated weight is >4500g [...] developing diabetes later on. Follow up in [facility] in 2 weeks with provider visit DISPOSITION: At this point the patient is in complete care of her digital sales manager. Patient does have ultrasound and office visit scheduled with us. Thank you for allowing me to participate in the care of Javid Prasad. If there any questions please do not hesitate to contact us. Saul Granados [place] [address] This document was created with [facility] technology. Though I make every effort to review the dictation as it is transcribed, on occasion the spoken word can be misinterpreted by the technology leading to inappropriate words, phrases, or sentences. This note is addressed to the requesting provider as a consultation for clinical guidance. Specific medical abbreviations are occasionally used and those are generally approved by the [place]?Board of?Obstetrics and?Gynecology?as well as?[employer] abbreviations. The above plan of care was based solely on the diagnoses for which a consultation was requested. ?More frequent testing may be indicated based on her other medical/obstetrical conditions. The management of other or medical conditions is beyond the scope of requested consultation and will continue to be followed by the primary digital sales manager or primary care provider. Note to [...] of the practitioner. documented in this encounter [facility] 11-26-2024 History of Present illness Narrative [...] morning and sched. documented in this encounter [facility] 11-26-2024 Miscellaneous Notes Called pt to let her know that Hanny Ware reviewed her dexcom and would like her to start marking her fasting time and number. If she does know what her fasting numbers are and if they are consistently over 95 then she needs an appt to start medication. She can call and make that appt at [phone] option #3. It looks as though her fastings are running above target but would like to see what the actual numbers are running. documented in this encounter [facility] 11-26-2024 Telephone encounter Note Called pt to let her know that Hanny Ware reviewed her dexcom and would like her to start marking her fasting time and number. If she does know what her fasting numbers are and if they are consistently over 95 then she needs an appt to start medication. She can call and make that appt at [phone] option #3. It looks as though her fastings are running above target but would like to see what the actual numbers are running. [facility] 11-25-2024 Miscellaneous Notes Called regarding food [...] meals. Asked that she call back at [phone] and let us know if she is having any consistent elevated blood sugars. documented in this encounter [facility] [employer] [facility] 11-25-2024 Telephone encounter Note Called regarding food [...] meals. Asked that she call back at [phone] and let us know if she is having any consistent elevated blood sugars. [facility] 11-20-2024 History of Present illness Narrative [...] care for you: OB Provider Family Doctor Truck Rental Clerk Name: Dr. Alvin Hannon Name: Dr. Karena [...] first Is there anything about your culture, sikhism, or personal beliefs we need to know about to care for you: Other Tracking Primary Language spoken: Ivorian [22] Primary Language for learning: Ivorian Are you currently in a relationship where you are physically hurt, threatened or made to fee afraid? [] Yes [] No Assistant Production Manager needed? [] Yes [] No Marital [...] Interpersonal Safety: Unknown (06/07/2023) Received from [facility] Fear of [...] If yes, where: On thge following scale, tazlina the number, which describes your current level [...] weekly Educational Level Masters Family issues stable Cultural/ethnic/baptist influences demies Exercise approved by MD? Yes Current Exercise program walking 5 miles Who prepares the meal Self Who purchase food at your home? Self and S.O Equipment use for cooking/food storage Has everything Food Assistance(Ex.WIC, Food [place]) Declined Dining out Yes Twice a week Appetite/Appetite changes Flucuates, better lately Weight History Stable Do you have cats at home? Infant Feeding Plans Breast Feeding If you have cats, who cleans the litter box? Cravings/Aversions/Pica Only food aversions to meat Nutrition Assessment Worksheet: Week/Weekend Food Recall Breakfast Ivorian muffin with cream cheese or yogurt, water [...] time 38 minutes. documented in this encounter [facility] 11-18-2024 History of Present illness Narrative Reason [...] mg, Daily RT Blood Glucose Monitoring Suppl ([facility] Glucometer) w/Device kit 1 kit, Does not [...] nursing note reviewed. Exam conducted with a solid tire tuber machine operator present. Vitals: Estimated body mass index is [...] times a day. Pt being sent to [facility] to complete anatomy scan. RVOT and LVOT and lips not evaluated. Pt voiced understanding. Orders Placed This Encounter Procedures Urine dip Follow Up: Patient is to return to office in 2 week for routine OB appointment. Documented by Katarzyna Malagon LPN on behalf of: Miguel Hannon DO documented in this encounter [facility] 11-03-2024 History of Present illness Narrative Reason [...] Father Adebayo Marco Diabetes Maternal Grandfather James [place] Hypertension Maternal Grandmother Sandy Lissa Diabetes Paternal [...] Miguel Hannon DO documented in this encounter [facility] 10-21-2024 Note [place] Electrophysiology Consult Note Reason for visit: Palpitations [...] normal affect Orientation (more content not included)... [facility] 10-21-2024 History of Present illness Narrative [...] Grandfather James Alcaraz Hypertension Maternal Grandmother Sandy [place] Diabetes Paternal [...] Father Adebayo Marco Diabetes Maternal Grandfather James [place] Hypertension Maternal Grandmother Sandy Lissa Diabetes Paternal [...] nursing note reviewed. Exam conducted with a solid tire tuber machine operator present. Vitals: Estimated body mass index is [...] Miguel Hannon DO documented in this encounter [place] [...] Father Adebayo Marco Kidney disease Father Adebayo Lara Stroke Father Adebayo Lara Diabetes Maternal Grandfather James [place] Hypertension Maternal Grandmother Sandy Alcaraz Diabetes Paternal [...] Father Adebayo Marco Diabetes Maternal Grandfather James [place] Hypertension Maternal Grandmother Sandy [place] Diabetes Paternal Grandfather Rito Marco Kidney disease [...] nursing note reviewed. Exam conducted with a solid tire tuber machine operator present. Vitals: Estimated body mass index is [...] or undercooked meat, and stay away from [facility]. Patient has been consulted regarding any [...] Miguel Hannon DO documented in this encounter [place] [...] having a D&C Hysteroscopy performed at [facility] with Dr. Hannon. Pathology results was reviewed [...] on 02/08/[address] Hannon at [facility]. MEDICATIONS Current Outpatient Medications Medication Instructions metFORMIN [...] reviewed, and patient is to proceed to [facility] OR. Follow Up: Patient is to follow up between 1-2 weeks post operative to assess proper healing and recovery from procedure. Documented by Katarzyna Malagon LPN on behalf of: Miguel Hannon DO documented in this encounter [place] [...] nursing note reviewed. Exam conducted with a solid tire tuber machine operator present. Vitals: Estimated body mass index is [...] Miguel Hannon DO documented in this encounter [place] [...] not heard Diastolic (more content not included)... [facility] 06-19-2022 Note This is a Telephone [...] dreaming in association with her activity. 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 Nutrition/Health Caffeine intake [...] signed by Isabella Grant 06/19/22 15:39 EST [facility] Evaluation note Diagnosis Pre-op examination Uterine leiomyoma, unspecified location documented in this encounter [facility] Healthcare[facility]* Diagnosis Postop check Follow-up examination, following unspecified surgery documented in this encounter [facility] HealthcareEvaluation note* Diagnosis Female infertility Female infertility of unspecified origin PCOS (polycystic ovarian syndrome) Polycystic ovaries Dysfunctional uterine bleeding Other disorder of menstruation and other abnormal bleeding from female genital tract documented in this encounter [facility] HealthcareEvaluation note* Diagnosis Second trimester state, incidental 14 weeks gestation of Diabetes mellitus screening Screening for diabetes mellitus documented in this encounter [facility] HealthcareEvaluation note* Diagnosis Exposure to STD Second [...] weeks gestation of documented in this encounter [facility] Diagnosis Third trimester (HHS-HCC) [...] encounter [facility] HealthcareInstructionsNot on filedocumented in this encounterProMedior Health SystemInstructionsNot on filedocumented in this encounterProMedior Health SystemInstructionsNot on filedocumented in this encounterProMedior Health SystemInstructionsNot on filedocumented in this encounterPro[facility] InstructionsNot on filedocumented in this encounterPro[facility] System InstructionsNot on filedocumented in this encounterProMedica [...] section and content) DATE CREATED AUTHOR 07/04/2021 [facility] DATE CREATED AUTHOR AUTHOR'S ORGANIZ ATION [address] [facility] DATE CREATED AUTHOR AUTHOR'S ORGANIZ ATION 06/21/2022 [facility] DATE CREATED AUTHOR AUTHOR'S ORGANIZ ATION 12/15/2022 [facility] DATE CREATED AUTHOR AUTHOR'S ORGANIZ ATION 11/30/2024 [facility] DATE CREATED AUTHOR AUTHOR'S ORGANIZ ATION 11/30/2024 [facility] DATE CREATED AUTHOR AUTHOR'S ORGANIZ ATION 12/13/2024 [facility] DATE CREATED AUTHOR AUTHOR'S ORGANIZ ATION 12/17/2024 [facility] EPIC Care Teams (unrecognized sec tion and content) Associate Brand Manager Relationship Specialty Start Date End Date Adebayo Solares MD [address] [place] [id number] PCP - General Family Medicine 11/19/23 Associate Brand Manager Relationship Specialty Start Date End Date Adebayo Solares MD [address] [place] [address] PCP - General Family Medicine 11/19/23 Associate Brand Manager Relationship Specialty Start Date End Date Adebayo Solares MD [address] [place] [address] PCP - General Family Medicine 11/19/23 Associate Brand Manager Relationship Specialty Start Date End Date Adebayo Solares MD [address] [place] [address] PCP - General Family Medicine 11/19/23 Associate Brand Manager Relationship Specialty Start Date End Date Adebayo Solares MD [address] [place] [address] PCP - General Family Medicine 11/19/23 Associate Brand Manager Relationship Specialty Start Date End Date Adebayo Solares MD [address] [place] [place] [phone] PCP - General Family Medicine 11/19/23 Associate Brand Manager Relationship Specialty Start Date End Date Adebayo Solares MD [address] [place] [phone] (Work) PCP - General Family Medicine 11/19/23 Associate Brand Manager Relationship Specialty Start Date End Date Adebayo Solares MD [address] [place] [address] PCP - General Family Medicine 11/19/23 Associate Brand Manager Relationship Specialty Start Date End Date Adebayo Solares MD [address] [place] [address] PCP - General Family Medicine 11/19/23 Associate Brand Manager Relationship Specialty Start Date End Date Adebayo Solares MD [address] [place] [address] PCP - General Family Medicine 11/19/23 Associate Brand Manager Relationship Specialty Start Date End Date Adebayo Solares MD [address] [place] [address] PCP - General Family Medicine 11/19/23 Associate Brand Manager Relationship Specialty Start Date End Date Adebayo Solares MD [address] [place] [address] PCP - General Family Medicine 11/19/23 Associate Brand Manager Relationship Specialty Start Date End Date Adebayo Solares MD [address] [place] [address] PCP - General Family Medicine 11/19/23 Associate Brand Manager Relationship Specialty Start Date End Date Adebayo Solarse MD [address] [place] [address] PCP - General Family Medicine 11/19/23 Associate Brand Manager Relationship Specialty Start Date End Date Adebayo Solares MD [address] [place] [address] PCP - General Family Medicine 11/19/23 Associate Brand Manager Relationship Specialty Start Date End Date Adebayo Solares MD [address] [place] [address] PCP - General Family Medicine 11/19/23 Reason [...] method of control unspecified Miguel Hannon R, [address] [place] [address] Phone: tel: fax: Maternal- Medicine at [facility] [address] [facility] [place] [address] Phone: tel: fax: Referral ID Status Reason Start Date Expiration Date Visits Requested Visits Authorized [id number] Pending Review Specialty Services Required 11/11/2024 11/11/2025 [...] BE BASED ON THE PRIMARY CLINICAL RECORDS. [employer] provides no warranty or guarantee of the accuracy or completeness of information in this document.
--- OUTSIDE RECORDS SUMMARY | 2024-12-19 19:08 | XMS_ITS | Encounter Summary ---
Author Organization [facility] Address [address] [facility] [place] [address] Care Team Providers Care Accounts Manager Name Role Phone Adebayo Quinones MD Primary Care Provider [phone] Encounter Details Date Type Department Care Team (Late Contact Info) Description 12/11/2024 Abstract [facility] [place] [address] Miguel Hannon DO [facility] Saima Gill, [facility] Social History Tobacco Use Types [...] 12/23/2024 11:30 AM EDT Routine NOMJosh HERNANDE[facility] [place] [address] Miguel Hannon DO [facility] Saim[place], [facility]11 12/30/2024 8:30 AM EDT Routine [facility] [address] [facility] [place] [phone] Maureen Mitchell PA [address] [facility] [address] [place], [place] [id number] 01/06/2025 9:10 AM EDT Routine [facility] [address] [facility] [place] [address] Miguel Hannon DO [address] [facility] [address] [place], [place] [phone] documented as of this encounter Visit Diagnoses Not on filedocumented in this encounter Care Teams Accounts Manager Relationship Specialty Start Date End Date Adebayo Quinones MD [address] [place] [address] PCP - General Family Medicine 11/19/23 documented as of this encounter
--- OUTSIDE RECORDS SUMMARY | 2024-12-19 19:08 | XMS_ITS | Encounter Summary ---
Author Organization [facility] [employer] tem Address [id number] [address] [place] [address] Care Team Providers Care Parimutuel Clerk Name Role Phone Unavailable Primary Care Provider Unavailabl e Encounter Details Date Type Department Care Team (Late Contact Info) Description 11/24/2024 Orders Only Maternal- Medicine at [facility] [address] [place] [phone] Ref Prov, [place] [address] Social History Tobacco Use Types Packs/Day Years [...] 3:00 PM EDT Telemedicine Maternal- Medicine at [facility] [address] [place] [phone] Hanny Ware, PRACTICING MD ANESTHESIOLOGIST-CENTRAL OFFICE INSTALLER [address] [place], [place] [phone] documented as of this encounter Visit Diagnoses Not on filedocumented in this encounter
--- OUTSIDE RECORDS SUMMARY | 2024-12-19 19:08 | XMS_ITS | Clinical Summary ---
Author Organization [facility] Address [address], [address] [place] [address] Care Team Providers Care Line Service Attendant Name Role Phone Unavailable Primary Care [...]
--- OUTSIDE RECORDS SUMMARY | 2024-12-19 19:08 | XMS_ITS | Encounter Summary ---
Author Organization [facility] [employer] [facility] tem Address [facility] [id number] [address] [place] [address] Care Team Providers Care Hl7 Developer Name Role Phone Unavailable Primary Care Provider Unavailabl e Encounter Details Date Type Department Care Team (Late st Contact Info) Description 12/18/2024 Telephone Maternal- Medicine at [facility] [address] [facility] [place] [address] Tessie Carranza, HALEY Social History Tobacco Use Types Packs/Day [...] encounter Miscellaneous Notes * Telephone Encounter - Tessie Carranza RN - 12/18/2024 11:26 AM EDT RN spoke to Andressa via phone. Andressa is unable to connect to [employer] Video call with Hanny Ware NP. Patient [...] Hanny Ware NP. documented in this encounter Plan of Treatment Upcoming Encounters Date Type Department Care Team (Late st Contact Info) Description 12/25/2024 3:00 PM EDT Telemedicine Maternal- Medicine at [facility] [address] [place] [phone] Hanny Ware, OCEAN TRANSPORTATION INTERMEDIARY-CYBERATHLETE [address] [place] [address] documented as of this encounter Visit Diagnoses Not on filedocumented in this encounter
--- OUTSIDE RECORDS SUMMARY | 2024-12-19 19:08 | XMS_ITS | Encounter Summary ---
Author Organization [facility] [employer] [facility] tem Address [id number] [address] [place] [address] Care Team Providers Care Cattle Killer Name Role Phone Unavailable Primary Care Provider Unavailabl e Encounter Details Date Type Department Care Team (Late st Contact Info) Description 12/09/2024 Telephone Maternal- Medicine at [facility] [address] [facility] [place] [place] [address] Yojana Diehl, HALEY Social History [...] 3:00 PM EDT Telemedicine Maternal- Medicine at [facility] [address] [place] [phone] Hanny Ware, TUBE SKIVER-MONOTYPE SETTER [address] [place] [address] documented as of this encounter Visit Diagnoses Not on filedocumented in this encounter
--- OUTSIDE RECORDS SUMMARY | 2024-12-19 19:08 | XMS_ITS | Encounter Summary ---
Author Organization [facility] tem Address [id number] [address] [place] [address] Care Team Providers Care Blocker And Polisher Name Role Phone Unavailable Primary Care Provider [...] 3:00 PM EDT Telemedicine Maternal- Medicine at [facility] [address] [place] [phone] Hanny Ware, COIL WINDER HAND-SPECIAL EDUCATION PRESCHOOL TEACHER [address] [place] [address] documented as of this encounter Visit Diagnoses Not on filedocumented in this encounter
--- OUTSIDE RECORDS SUMMARY | 2024-12-19 19:09 | XMS_ITS | Encounter Summary ---
Author Organization [facility] Address [address] [facility] [place] [address] Care Team Providers Care Plasma Cutting Machine Operator Name Role Phone Adebayo Quinones MD Primary Care Provider [phone] Encounter Details Date Type Department Care Team (Late Contact Info) Description 11/10/2024 Abstract [facility] [place] [address] Miguel Hanonn DO [facility] Saima [place], [facility]11 Social History Tobacco Use Types Packs/Day [...] 12/23/2024 11:30 AM EDT Routine [facility] HERNAN[facility] [place] [address] Miguel Hannon DO [facility] Saima Gill, [facility]11 12/30/2024 8:30 AM EDT Routine [facility] [address] [facility] [place] [phone] Maureen Mitchell PA [address] [facility] [address] [place], [place] [id number] 01/06/2025 9:10 AM EDT Routine [facility] [address] [facility] [place] [address] Miguel Hannon DO [address] [facility] [address] [place], [place] [id number] documented as of this encounter Visit Diagnoses Not on filedocumented in this encounter Care Teams Plasma Cutting Machine Operator Relationship Specialty Start Date End Date Adebayo Quinones MD [address] [place] [address] PCP - General Family Medicine 11/19/23 documented as of this encounter
--- OUTSIDE RECORDS SUMMARY | 2024-12-19 19:09 | XMS_ITS | Clinical Summary ---
Author Organization [employer] tem Address [id number] [address] [place] [address] Care Team Providers Care School Cafeteria Cook Head Name Role Phone Unavailable Primary Care Provider [...] needle Use daily for insulin 100 each 11/29/19 25 Active insulin glargine (LANTUS SOLOSTAR U-100 INSULIN) 100 unit/mL (3 mL) insulin pen Inject 20 units of insulin in the evening, subcutaneou sly, prime 2 units 15 mL 12/19/19 25 Active insulin glargine (LANTUS SOLOSTAR U-100 [...] units 15 mL 12/04/19 25 025 Discontinued insulin glargine (LANTUS SOLOSTAR U-100 INSULIN) 100 unit/mL (3 mL) insulin pen Inject 16 units of insulin in the evening, subcutaneou sly, prime 2 units 15 mL 11 12/10/19 025 Discontinued(Re order) Encounters Date Type Department Care Team Description 12/18/2024 Telephone Maternal- Medicine at [facility] [address] [place] [address] Tessie Carranza RN 12/18/2024 Travel 12/11/2024 Travel 12/09/2024 Telephone Maternal- Medicine at [facility] [address] [place] [address] Yojana Diehl, HALEY 12/09/2024 Orders Only [facility] - Labor [address] [place] [address] Mary Scanlon PA-C 12/03/2024 Telephone Maternal- Medicine at [facility] [address] [place] [address] Juli Quezada LD 12/03/2024 Orders Only Maternal- Medicine at [place] [address] [place] [address] Hanny Ware APRN-GRANT 11/28/2024 11:30 AM EDT Office Visit Maternal- Medicine at [facility] [address] [place] [address] Priscila Granados MD Insulin controlled gestational diabetes mellitus (GDM) in third trimester (Primary Dx); Prediabetes in mother during ; Family history of type 2 diabetes mellitus; Obesity affecting , antepartum, unspecified obesity type; 32 weeks gestation of 11/28/2024 Travel 11/26/2024 Documentation Maternal- Medicine at [facility] [address] [place] [address] Yojana Diehl, HALEY 11/26/2024 Telephone Maternal- Medicine at [facility] [place] [address] [place] [address] Yojana Diehl RN 11/25/2024 Telephone Maternal- Medicine at [facility] [address] [place] [address] Naomie Huber LD 11/25/2024 Telephone Maternal- Medicine at [facility] [address] [place] [address] Naomie Huber LD 11/24/2024 Orders Only Maternal- Medicine at [facility] [address] [place] [address] Ref Prov, Not In System 11/24/2024 Abstract Maternal- Medicine at [facility] [address] [place] [address] External, Scanning Provider 11/20/2024 10:30 AM EDT Telemedicine Maternal- Medicine at [facility] [address] [place] [address] Miroslava Trinidad RN Juli Quezada LD Karl, Deborah, LD Gestational diabetes mellitus (GDM) in second trimester, gestational diabetes method of control unspecified 11/20/2024 Travel 11/13/2024 Orders Only Maternal- Medicine at [facility] [address] [place] [address] Ref Prov, Not In System 11/13/2024 Abstract Maternal- Medicine at [facility] [address] [place] [address] Provider, Generic External Data from Last 3 [...] 3:00 PM EDT Telemedicine Maternal- Medicine at [facility] [address] [place] [address] Hanny Ware, PLANT [employer]ATOMY TE[employer]ER[employer]CHOOL CURRICULUM DEVELOPER [address] [place] [address] Health Maintenance Due Date Last Done Comments [...] Name Priority Date/Time Associated Diagnosis Comments US MFM COMPREHENSIVE ANATOMIC SURVEY Routine 12/11/2024 1:48 PM [...] 1:48 PM EDT) Anatomical Region Laterality Modality OB-ASSISTANT PROFESSOR OF MARINE BIOLOGY Ultrasound 12/11/2024 1:18 PM EDT Narrative 12/11/2024 2:46 PM EDT NAME: IOANA HUA : 1990 SEX: F Accession Number: [id number] ORDERING PHYSICIAN: KENN MCHUGH REFERRING PHYSICIAN: KENN MCHUGH Coding ----- --------- Procedures [id number]: Ultrasound, uterus, real time with image documentation, and maternal evaluation plus detailed anatomic examination, transabdominal approach;single or first gestation Indication ----- --------- Screening for Anatomic Survey , Gestational diabetes, Obesity in . History ----- --------- OB History 1. Para 0 [id number] Maternal Assessment ----- --------- Physical Exam Height [...] EFW (oz) 6 oz EFW by: Hadlock ([id number]) Extended Tibia 60.4 mm 35w 1d 83% [...] Heart / Thorax 4-chamber view. 3-vessel view. 5-dxrubs-kbfruvu view. Bicaval view. Interventricular septum. Great vessels. [...] HUA : 1990 SEX: F Accession Number: [id number] ORDERING PHYSICIAN: KENN MCHUGH REFERRING PHYSICIAN: KENN MCHUGH Coding ----- --------- Procedures [id number]: Ultrasound, uterus, real time with imagedocumentation, and maternal evaluation plus detailed anatomic examination, transabdominalapproach;single or first gestation Indication ----- --------- Screening for Anatomic Survey , Gestational diabetes, Obesity inpregnancy. History ----- --------- OB History 1. Para 0 [id number] Maternal Assessment ----- --------- Physical Exam Height 183 cm, 6 ft. Weight 133 kg, 293 lb. Initial nkasqa023 kg, 279 lb. BMI 39.74 kg/m . [...] EFW (oz) 6 oz EFW by: Hadlock ([id number]-FL) Extended Tibia 60.4 mm 35w 1d 83% [...] Heart / Thorax 4-chamber view. 3-vessel view. 1-fcpirz-agkvcft view.Bicaval view. Interventricular septum. Great vessels. Diaphragm. [...] byprimary OB provider unless otherwise specified by MFM. Results forwarded to ordering provider so they can follow up with thepatient as necessary. us Kenn R Riddhi DO IMG US ORDERABLES Final Result * POCT Hemoglobin [...] period is included. Anatomical Region Laterality Modality OB-ASSISTANT PROFESSOR OF MARINE BIOLOGY Ultrasound us Not In System Ref Prov IMG US ORDERABLES Final R esult from Last 3 Months Insurance ANTH
--- OUTSIDE RECORDS SUMMARY | 2024-12-19 19:09 | XMS_ITS | Clinical Summary ---
Author Organization [facility] Healthcare Address [address] [place] [address] Care Team Providers Care Cotton Acreage Measurer Name Role Phone Adebayo Solares MD Primary Care Provider + [phone] Allergies No known active allergies Medications omeprazole [...] antepartum, gestational diabetes method of control unspecified ([facility]),Elevat ed glucose tolerance test 1 each by In Vitro route Daily Use to check FSBS four times daily 150 each 3 5 12/11/19 25 Glucose Blood (Blood Glucose Test) stripIndications :Gestational diabetes mellitus (GDM), antepartum, gestational diabetes method of control unspecified ([facility]),Elevat ed glucose tolerance test 1 strip by In Vitro route Daily Use in the morning prior to breakfast, 1 hour after each meal for a total of 4times daily. 150 strip 3 5 12/11/19 25 Encounters Date Type Department Care Team Description 12/16/2024 1:10 [place] [address] Maureen Feliz PA 35 weeks gestation of ([facility]); Third trimester ([facility]); Gestational diabetes mellitus (GDM), antepartum, gestational diabetes method of control unspecified ([facility]) 12/16/2024 Bamboo flowsheet [facility] [address] [place] [address] Maureen Feliz PA 12/12/2024 Clinisync Result Encounter NOM[facility] External Department Unsolicited Kenn Hannon, DO 12/12/2024 [place] [address] Kenn Hannon, DO 12/11/2024 Abstract [facility] [address] [address] [place] [address] Kenn Hannon, DO 12/06/2024 Clinisync Result Encounter NOMS External Department Unsolicited Kenn Hannon, DO 12/02/2024 8:40 [place] [address] Kenn Hannon, DO Third trimester ([facility]); 33 weeks gestation of ([facility]); Gestational diabetes mellitus (GDM), antepartum, gestational diabetes method of control unspecified ([facility]) 12/02/2024 Bamboo flowsheet [facility] [address] [facility] [address] Kenn Hannon, DO 11/27/2024 Clinisync Result Encounter NOMS External Department Unsolicited Kenn Hannon, DO 11/20/2024 Abstract [facility] [address] [place] [address] Kenn Hannon, DO 11/18/2024 8:50 AM EDT Routine [facility] [address] [place] [address] Kenn Hannon, DO Third trimester ([facility]); 31 weeks gestation of ([facility]); Gestational diabetes mellitus (GDM), antepartum, gestational diabetes method of control unspecified ([facility]) 11/18/2024 Telephone [facility] [address] [place] [address] Katarzyna Malagon LPN 11/18/2024 Bamboo flowsheet [facility] [address] [place] [address] Kenn Hannon, DO 11/14/2024 Clinisync Result Encounter NOMS External Department Unsolicited Kenn Hannon, DO 11/10/2024 Abstract [facility] [address] [place] [address] Kenn Hannon, DO 11/10/2024 Telephone [facility] [address] [facility] [address] Kenn Hannon, DO 11/10/2024 Clinisync Result Encounter NOMS External Department Unsolicited Kenn Hannon, DO 11/03/2024 3:10 PM EDT Routine [facility] [address] [place] [address] Kenn Hannon, 29 weeks gestation of ([facility]); Third trimester ([facility]); Encounter for follow-up ultrasound of anatomy ([facility]) 11/03/2024 Bamboo flowsheet [facility] [address] [place] [address] Kenn Hannon DO 10/31/2024 Clinisync Result Encounter NOMS External Department Unsolicited Maureen Feliz PA 10/21/2024 8:30 AM EDT Routine [facility] [address] [place] [address] Maureen Feliz PA Size of fetus inconsistent with dates in second trimester ([facility]) (Primary Dx); Second trimester ([facility]); 27 weeks gestation of ([facility]) 10/21/2024 Bamboo flowsheet [facility] [address] [place] [place] [address] Maureen Feliz PA 10/20/2024 Travel from Last 3 Months Family History Medical [...] Comments Father Adebayo Marco Maternal Grandfather James [place] Maternal Grandmother Sandy Lissa Paternal Grandfather Rito Marco Social History Tobacco Use Types Packs/Day Years Used Date Smoking Tobacco: Never Smokeless Tobacco: Never Tobacco Cessation:Counseling Given: Not Answered Alcohol Use Standard Drinks/Week Comments Never 0 (1 standard drink = 0.6 oz pur e alcohol) Estimated Date of Delivery Comme nts Yes 01/17/2025 Based on last nv nstrual period of 04/12/2024 Sex and Gender [...] 12/23/2024 11:30 AM EDT Routine [facility] [address] [place] [address] [place] [address] Kenn Hanonn DO [address] [place] [address] [address] [place], [place] [address] 12/30/2024 8:30 AM EDT Routine [facility] [address] [place] [address] [place] [address] Maureen Feliz PA [address] [facility] [address] [place], [place] [address] 01/06/2025 9:10 AM EDT Routine [facility] [address] [place] [address] [place] [address] Kenn Hannon DO [address] [facility] [address] [place], [place] [address] Health Maintenance Due Date Last Done Comments Influenza Vaccine (#1) 2024 , 02/12/2023, 02/03/2022, Additional history exists Cervical Cancer Screening 12/12/2028 HPV/Cotest 12/12/2028 Pap Smear 12/12/2028 12/13/2023, 05/17/2012 Procedures Procedure Name Priority Date/Time Associated Diagnosis Comments POCT URINALYSIS DIPSTICK Routine 12/16/2024 1:15 PM EDT 35 weeks gestation of ([facility]) Third trimester ([facility]) US OB BPP W NON-STRESS 12/12/2024 8:20 PM EDT US OB BPP W NON-STRESS 12/06/2024 5:01 PM EDT POCT URINALYSIS DIPSTICK Routine 12/02/2024 9:04 AM EDT Third trimester ([facility]) 33 weeks gestation of ([facility]) US OB BPP W NON-STRESS 11/27/2024 11:40 PM EDT POCT URINALYSIS DIPSTICK Routine 11/18/2024 10:23 AM EDT Third trimester ([facility]) 31 weeks gestation of ([facility]) US OB INCOMPLETE ANATOMY 11/14/2024 10:06 AM EDT GLUCOSE TOLERANCE 3 HOUR Routine 11/10/2024 8:45 AM EDT POCT URINALYSIS DIPSTICK Routine 11/03/2024 3:12 PM EDT 29 weeks gestation of ([facility]) Third trimester ([facility]) US OB GROWTH 10/31/2024 7:41 AM EDT POCT URINALYSIS DIPSTICK Routine 10/21/2024 8:49 AM EDT Second trimester ([facility]) 27 weeks gestation of ([facility]) PAP SMEAR Routine 12/13/2023 12:00 AM EDT from Last 3 Months or Most Recently Relevant to Health Maintenance Results * (ABNORMAL) POCT urinalysis dipstick manually resulted (12/16/2024 1:15 PM EDT) Only the most recent of5 resultswithin [...] PM EDT Narrative 12/12/2024 8:23 [place] [address] Ultrasound Report Signed Patient: JAVID TRIPLETT MR#: [id number] : 1990 Acct:[id number] Age/Sex: 33 / F ADM Date: 12/12/24 Loc: [facility] 250-[address]: Kenn Hannon D.O. Ordering Physician: Kenn Hannon D.O. Date of Service: 12/12/24 Procedure(s): US OB BPP w non-stress Accession Number(s): [id number] cc: Kenn Hannon D.O.; ADEBAYO SOLARES D.O. The [address] [address] Patient Name: JAVID TRIPLETT MRN: [facility]:[id number] date: 1990 Sex: F Assigned Patient Location: [facility] Current Patient Location: [facility] Accession/Order Number: [id number] Exam Date: 12/12/2024 19:06 Report Date: 12/12/2024 [...] Mcdermott M.D. 12/12/2024 8:20 PM Dictation Location: [place] [address] Electronically authenticated by: [id number] Y Date: 12/12/2024 20:20 Dictated By: Tutu Mcdermott M.D. Signed By: 12/12/242022 DD/ 19 TD/TT: Technical Account Manager: Procedure Note Radiology, Radiologist, MD - 12/12/2024 The [place] [id number] Ultrasound Report Signed Patient: JAVID TRIPLETT DMR#: [id number] : 1990Acct:[id number] Age/Sex: 33 / FADM Date: 12/12/24 Loc: [facility] 250-[address]: Kenn Hannon D.O. Ordering Physician: Kenn Hannon D.O. Date of Service: 12/12/24 Procedure(s): US OB BPP w non-stress Accession Number(s): [id number] cc: Kenn Hannon D.O.; ADEBAYO SOLARES D.O. The [place] [id number] Patient Name: JAVID TRIPLETT MRN: [id number] date: 1990 Sex: F Assigned Patient Location: [facility] Current Patient Location: [facility] Accession/Order Number: [id number] Exam Date: 12/12/2024 19:06 Report Date: 12/12/2024 [...] Mcdermott M.D. 12/12/2024 8:20 PM Dictation Location: [place] [address] Electronically authenticated by: [id number] Y Date: 0:20 Dictated By: Tutu Mcdermott M.D. Signed By:12/12/242022 DD/ 19 TD/TT: Technical Account Manager: Kenn Hannon DO [facility] Final Result * US OB INCOMPLETE ANATOMY (11/14/2024 10:06 AM EDT) Anatomical Region Laterality Modality Other 11/14/2024 10:0 6 AM EDT Narrative 11/14/2024 10:09 AM EDT The [address] [address] Ultrasound Report Signed Patient: JAVID TRIPLETT MR#: [id number] : 1990 Acct:[id number] Age/Sex: 33 / F ADM Date: 11/13/24 Loc: US Attending Dr: Kenn Hannon D.O. Ordering Physician: Kenn Hannon D.O. Date of Service: 11/13/24 Procedure(s): US OB incomplete anatomy Accession Number(s): [id number] cc: Kenn Hannon D.O.; ADEBAYO SOLARES D.O. The [address] [address] Patient Name: JAVID TRIPLETT MRN: [id number] date: 1990 Sex: F Assigned Patient Location: US Current Patient Location: Accession/Order Number: [id number] Exam Date: 11/14/2024 09:56 Report Date: 11/14/2024 [...] Jr., D.O. 11/14/2024 10:06 AM Dictation Location: [place] [address] Electronically authenticated by: [id number] Y Date: 11/14/2024 10:06 Dictated By: Mark Anthony Conner M.D. Signed By: 11/14/24 1009 DD/ 1006 TD/TT: Technical Account Manager: Procedure Note Radiology, Radiologist, - 11/14/2024 The [place] [id number] Ultrasound Report Signed Patient: JAVID TRIPLETT DMR#: [id number] : 1990Acct:[id number] Age/Sex: 33 / FADM Date: 11/13/24 Loc: US Attending Dr: Kenn Hannon D.O. Ordering Physician: Kenn Hannon D.O. Date of Service: 11/13/24 Procedure(s): US OB incomplete anatomy Accession Number(s): [id number] cc: Kenn Hannon D.O.; ADEBAYO SOLARES D.O. The [address] [address] Patient Name: JAVID TRIPLETT MRN: [id number] date: 1990 Sex: F Assigned Patient Location: US Current Patient Location: Accession/Order Number: [id number] Exam Date: 11/14/2024 09:56 Report Date: 11/14/2024 [...] Jr., D.O. 11/14/2024 10:06 AM Dictation Location: [place] [address] Electronically authenticated by: [id number] Y Date: 0:06 Dictated By: Mark Anthony Conner M.D. Signed By:11/14/24 1009 DD/ 1006 TD/TT: Technical Account Manager: us Kenn Riddhi DO [facility] Final [...] DO LAB BLOOD ORDERABLES Final Resul t [facility] * US OB GROWTH (10/31/2024 7:41 AM EDT) Anatomical Region Laterality Modality Other 10/31/2024 7:41 AM EDT Narrative 10/31/2024 7:44 AM EDT [address] [address] Ultrasound Report Signed Patient: JAVID TRIPLETT MR#: [id number] : 1990 Acct:[id number] Age/Sex: 33 / F ADM Date: 10/30/24 Loc: US Attending Dr: Maureen Feliz Ordering Physician: Maureen Feliz Date of Service: 10/30/24 Procedure(s): US OB growth Accession Number(s): [id number] cc: Maureen Feliz; ADEBAYO SOLARES D.O. The [address] [address] Patient Name: JAVID TRIPLETT MRN: [id number] date: 1990 Sex: F Assigned Patient Location: US Current Patient Location: Accession/Order Number: [id number] Exam Date: 10/31/2024 07:37 Report Date: 10/31/2024 [...] Crow M.D. 10/31/2024 7:41 AM Dictation Location: [place] [address] Electronically authenticated by: [id number] Y Date: 10/31/2024 07:41 Dictated By: Katarzyna Crow M.D. Signed By: 10/31/24 0744 DD/ 0741 TD/TT: Technical Account Manager: Procedure Note Radiology, Radiologist, MD - 10/31/2024 [place] [address] Ultrasound Report Signed Patient: JAVID TRIPLETT DMR#: [id number] : 1990Acct:[id number] Age/Sex: 33 / FADM Date: 10/30/24 Loc: US Attending Dr: Maureen Feliz Ordering Physician: Maureen Feliz Date of Service: 10/30/24 Procedure(s): US OB growth Accession Number(s): [id number] cc: Maureen Feliz; ADEBAYO SOLARES D.O. The [address] [address] Patient Name: JAVID TRIPLETT MRN: [id number] date: 1990 Sex: F Assigned Patient Location: Current Patient Location: Accession/Order Number: [id number] Exam Date: 10/31/2024 07:37 Report Date: 10/31/2024 [...] Crow M.D. 10/31/2024 7:41 AM Dictation Location: [place] [address] Electronically authenticated by: [id number] Y Date: 7:41 Dictated By: Katarzyna Crow M.D. Signed By:10/31/24 0744 DD/ 0741 TD/TT: Technical Account Manager: us Maureen SINGLETON [facility] Final Result * Pap Smear (12/13/2023 12:00 AM EDT) Swab Cervical swab / Unknown us Kenn Hannon DO LAB CYTOLOGY ORDERABLES Final Re sult EXTERNAL LAB from Last 3 Months or Most Recently Relevant to Health Maintenance Insurance Care Teams Cotton Acreage Measurer Relationship Specialty Start Date End Date Adebayo Solares MD [address] [place] [address] PCP - General Family Medicine 11/19/23
--- OUTSIDE RECORDS SUMMARY | 2024-12-19 19:09 | XMS_ITS | Encounter Summary ---
Author Organization [facility] Address [address] [place] [address] Care Team Providers Care Reel Slitter Name Role Phone Adebayo Quinones MD Primary Care Provider [phone] Encounter Details Date Type Department Care Team (Late Contact Info) Description 12/13/2023 Abstract [facility] [place] [address] Miguel Hannon DO [facility] [place], [place] [address] Social History Tobacco Use Types Packs/Day Years [...] EDT Routine [facility] [address] [place] [address] Miguel Hannon DO [facility] [place], [facility]11 12/30/2024 8:30 AM EDT Routine [facility] [place] [address] Maureen Mitchell PA [address] [facility] [place] [address] 01/06/2025 9:10 AM EDT Routine [facility] [address] [facility] [place] [address] Miguel Hannon DO [address] [facility] [place] [address] documented as of this encounter Visit Diagnoses Not on filedocumented in this encounter Care Teams Reel Slitter Relationship Specialty Start Date End Date Adebayo Quinones MD [address] [place] [address] PCP - General Family Medicine 11/19/23 documented as of this encounter
--- OUTSIDE RECORDS SUMMARY | 2024-12-19 19:09 | XMS_ITS | Encounter Summary ---
Author Organization [facility] Address [address] [place] [address] Care Team Providers Care Sheet Rock Installer Name Role Phone Adebayo Quinones DO Primary Care Provider [phone] Encounter Details Date Type Department Care Team (Late st Contact Info) Description 10/22/2024 Orders Only [facility] [address] [place] [address] Janell Felton MD [address] [place] [address] Social History Tobacco Use Types [...] on filedocumented in this encounter Care Teams Sheet Rock Installer Relationship Specialty Start Date End Date Adebayo Quinones DO [address] [place] [address] PCP - General 11/14/22 documented as of this encounter
--- OUTSIDE RECORDS SUMMARY | 2024-12-19 19:09 | XMS_ITS | Encounter Summary ---
Author Organization [facility] Address [address] [place] [address] Care Team Providers Care Physical Plant Employee Name Role Phone Adebayo Quinones MD Primary Care Provider [phone] Encounter Details Date Type Department Care Team (Late Contact Info) Description 12/16/2024 Bamboo flowsheet [facility] [address] [place] [address] [place] [address] Maureen Mitchell PA [address] [facility] [address] [place], [place] [address] Social History Tobacco Use Types Packs/Day Years [...] 11:30 AM EDT Routine [facility] [place] [address] Miguel Hannon DO [address] [facility] [address] [place], [facility] 12/30/2024 8:30 AM EDT Routine [facility] [address] [facility] [place] [address] Maureen Mitchell PA [address] [facility] [address] [place], [place] [address] 01/06/2025 9:10 AM EDT Routine [facility] [address] [facility] [place] [address] Miguel Hannon DO [address] [facility] [address] [place], [place] [address] documented as of this encounter Visit Diagnoses Not on filedocumented in this encounter Care Teams Physical Plant Employee Relationship Specialty Start Date End Date Adebayo Quinones MD [address] [place] [address] PCP - General Family Medicine 11/19/23 documented as of this encounter
--- OUTSIDE RECORDS SUMMARY | 2024-12-19 19:09 | XMS_ITS | Patient Health Record ---
Author Organization [facility] in [place] Address [address] [place] [address] Care Team Providers Care Precision Optical Goods Worker Name Role Phone Adebayo Quinones Primary Care Provider [phone] Allergies Allergen (clinical drug ingredient) Drug/Non Drug [...] day Active PNV Active Vitamin D (Ergocalciferol) 04902 UNIT 1 capsule Orally qweekly for 30 days 06/18/2023 Active Meclizine HCl Not-Ta joy Immunizations Vaccine Route Administration Date Status Comme nts Flu, Fluzone (73660) 6 mos+, single-dose syringe/vial (7341-6982) Unknown 02/12/2023 Administered Social History Tobacco Use: Social History Observation Description Date Details (start date - stop date) Never Smoker NA - NA Tobacco Use/Smoking Question Answer Notes Patient 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 Alcohol Screen (Audit-C) Question Answer Notes Did you have a drink containing alcohol in the p ast year? No Points 0 Interpretation Negative Section Notes: LEAN MANUFACTURING COORDINATOR LEAN MANUFACTURING COORDINATOR LEAN MANUFACTURING COORDINATOR LEAN MANUFACTURING COORDINATOR Problems Problem Type SNOMED Code ICD Code Onset Dates Problem Status W/U Status Risk Notes Problem 51273613 Vitamin D deficiency, unspecified (E55.9) Active confirmed Problem 15044487333524 Morbid (severe) obesity due to excess calories (E66.01) Active confirmed Problem 683062805 Obesity, unspecified (E66.9) Active confirmed Problem 195525167 Mixed hyperlipidemia (E78.2) Active confirmed Problem 0589779 Female infertili ty, unspecified (N97.9) Active confirmed Problem 01902939 CAROLA (obstructive sleep apnea) (G47.33) Active confirmed Problem 807913518 Gastroesophageal reflux disease without esophagitis (K21.9) Active confirmed Problem 93832365 Sleep walking (F51.3) Active confirmed Problem 688073743 Insomnia, unspecified type (G47.00) Active confirmed Problem 38540480 Night terrors (F51.4) Active confirmed Problem 357157189 Body mass index [BMI] 36.0-36.9, adult (Z68.36) Active confirmed Problem 409544883 Body mass index [BMI] 38.0-38.9, adult (Z68.38) Active confirmed Encounters Encounter Location Date Provider Diagnosis [facility] [address] [place] [address] 11/11/2024 Adebayo Quinones Plan Of Treatment Pending [...] Name:Adebayo burr, 01/26/2025 10:00:00 AM, [address] [place], [address], Insurance Providers Payer Name Payer Address Payer Phone Subscriber Number Group Number Insured Name Patient Relationship to Insured Coverage Start Date Coverage End Date ANTHEM ACCESS PPO PLUS LOCAL PLAN [address] [place] [phone] [id number] Andressa Prasad Self - patient is the insured 4 Medical (General) History Medical History History ICD Code prediabetes B12 deficiency hyperlipidemia gerd carola
--- OUTSIDE RECORDS SUMMARY | 2024-12-19 19:09 | XMS_ITS | Encounter Summary ---
Author Organization [facility] Address [address] [facility] [[email or web address]] [place] [address] Care Team Providers Care Dye Line Operator Name Role Phone Adebayo Quinones MD Primary Care Provider [phone] Encounter Details Date Type Department Care Team (Late Contact Info) Description 12/25/2023 Abstract [facility] [address] [place], [place] [address] [address] Miguel Hannon DO [facility] [place]i [place], [place] [address] Social History Tobacco Use Types Packs/Day Years [...] EDT Routine [facility] [address] [place] [address] Miguel Hannon DO [facility] Saima Gill, [facility] 12/30/2024 8:30 AM EDT Routine [facility] [place] [address] Maureen Mitchell PA [address] [place] [address] 01/06/2025 9:10 AM EDT Routine [facility] [address] [place] [address] Miguel Hannon DO [address] [place] [address] documented as of this encounter Visit Diagnoses Not on filedocumented in this encounter Care Teams Dye Line Operator Relationship Specialty Start Date End Date Adebayo Quinones MD [address] [place] [address] PCP - General Family Medicine 11/19/23 documented as of this encounter
--- OUTSIDE RECORDS SUMMARY | 2024-12-19 19:09 | XMS_ITS | Encounter Summary ---
Author Organization [facility] tem Address [id number]-[id number] [address] [place] [address] Care Team Providers Care Architectural Practice Manager Name Role Phone Unavailable Primary Care Provider Unavailabl e Encounter Details Date Type Department Care Team (Late st Contact Info) Description 11/13/2024 Orders Only Maternal- Medicine at [facility] [address] [place] [address] Ref Prov, [place] [address] Social History Tobacco Use Types Packs/Day Years [...] 3:00 PM EDT Telemedicine Maternal- Medicine at [facility] [address] [place] [address] Hanny Ware, FLAME BURNER-SEWING PATTERN LAYOUT TECHNICIAN [address] [place], [place] [id number] documented as of this encounter Procedures Procedure [...] 11:25 AM EDT) Anatomical Region Laterality Modality OB-GEODETIC COMPUTATOR Ultrasound us Not In System Ref Prov IMG US ORDERABLES Final R esult * Ultrasound limited 1 or more fetus (11/13/2024 11:24 AM EDT) Anatomical Region Laterality Modality OB-GEODETIC COMPUTATOR Ultrasound us Not In System Ref Prov IMG US ORDERABLES Final R esult * Ultrasound limited 1 or more fetus (11/13/2024 11:22 AM EDT) Anatomical Region Laterality Modality OB-GEODETIC COMPUTATOR Ultrasound us Not In System Ref Prov IMG US ORDERABLES Final R esult documented in this encounter Visit Diagnoses Not on filedocumented in this encounter
--- NOTE | 2024-12-19 19:11 | US_ITS ---
[place] [id number] Patient Name: JAVID TRIPLETT MRN: [id number] date: 1990 Sex: F Assigned Patient Location: [facility] Current Patient Location: Accession/Order Number: [id number] Exam Date: 12/19/2024 19:14 Report Date: 12/19/2024 21:48 At the request of: KENN MCHUGH DO Procedure: US OB BPP w non-stress Ultrasound biophysical profile HISTORY: Gestational diabetes Adequate breathing movement, gross body movement, tone and amniotic fluid volume for total score of 8 out of 8. The amniotic fluid index is 15.8cm within normal limits. The heart rate 147 bpm. US/US OB BPP w non-stress IMPRESSION: Adequate ultrasound biophysical profile Impression dictated by: Sergo Deutsch M.D. 12/19/2024 9:48 PM [facility]ation [facility] Electron[facility] authenticated by: [id number] Y Date: 12/19/2024 21:48
[2024-12-19 19:32] VITALS: BP 128/81; PULSE 84
== END 2024-12-19 20:00 | disposition home or self-care (01) ==
LOC: US 19:04 → FBC 19:07
PROVIDERS: PCP Family Medicine; Visit Provider Obstetrics & Gynecology
DX: O24.419 Gestational diabetes mellitus in pregnancy, unspecified control (principal); Z3A.35 35 weeks gestation of pregnancy
CPT/HCPCS: 59025; 76818

== ENCOUNTER 2024-12-23 19:53 | Outpatient (REF) | payer BC, SELFPAY ==
--- OUTSIDE RECORDS SUMMARY | 2023-08-30 06:45 | XMS_ITS ---
Author Organization [facility] in [place] Address [address] [place] [address] Care Team Providers Care Wood Heel Flap Rubber Name Role Phone Adebayo Quinones Primary Care Provider [phone] Allergies Allergen (clinical drug ingredient) Drug/Non Drug Allergy documented on EMR Reaction Allergy Type Onset Date Status Ragweed Unknown Allergy Active REASON FOR VISIT shortness of breath and left sided chest pain Medications Medication SIG (Take, Route, Frequency, Duration) Notes Start Date End Date Status Meclizine HCl Not-Ta joy Metoprolol Tartrate 25 MG 1 tablet with food Orally Twice a day for 30 day(s) 11/14/2021 Not-Taking ZyrTEC Not-Taking Vitamin D (Ergocalciferol) 37155 UNIT 1 capsule Orally qweekly for 30 days 06/18/2023 Active methylPREDNISolone 4 MG as directed Oral ly for 6 days 08/30/2023 Active PNV Active Omeprazole 40 MG 1 capsule 30 minutes before morning meal Orally Once a day Active Social History Tobacco Use: Social History Observation Description Date Details (start date - stop date) Never Smoker NA - NA Tobacco Use/Smoking Question Answer Notes Patient 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 Encounter Location Date Provider Diagnosis [address] [address] 08/30/2023 Adebayo Quinones Chest pain, unspecified R07.9 and Shortness of breath R06.02 Assessments Encounter Date Diagnosis (ICD Code) Assessment Notes Treatment Notes Treatment Clinical Notes Section Notes 08/30/2023 Chest pain, unspecified (ICD-10 - R07.9) CXR to [facility] ER if s/s worsens erx medrol for probable pleuricy rtc prn 08/30/2023 Shortness of breath (ICD-10 - R06.02) see above ER if worsens ?CTA chest to r/o PE if s/s worsen Plan Of Treatment Medication Medication Name Sig Start Date Stop Date Notes methylPREDNISolone 4 MG as directed Orally for 6 days 08/14 Treatment Notes Assessment Notes Chest pain, unspecified CXR to [facility] ER if s/s worsens erx medrol for probable pleuricy rtc prn Shortness of breath see above ER if worsens ?CTA chest to r/o PE if s/s worsen Pending Test Test Name Order Date XR Chest PA and Lateral (Routine CXR) * 08/30/2023 Next Appt Details Provider Name:Adebayo burr, 01/26/2025 10:00:00 AM, [address] [place], [address], Progress Notes * Andressa TRIPLETTDOB: [birth year] (32 yo F)Acc No.[id number]:08/30/2023 TeleMed via Doxy Patient: Stephanie WAYNEAndressa HERRERA Provider: Maria E Quinones DO :1990 A ge:32 Y S ex:Female Date:08/30/2023 Address:[address] [place], [place] [id number] Subjective: * Chief Complaints: * S hortness of breath and left sided chest pain * HPI: G eneral: last night pt started with L sided rib pain with deep breath - sharp - more anteriorly SOB more lately pulse ox 99% on RA ctab at work no cough no fever covid negative +tylenol/motrin/alb neb and muscle relaxer not helping no abd pain no N/V no rashes no f/c/URI s/s no c/o The patient verbally consented to a TeleHealth encounter and the potential risks involved with a TeleHealth visit (clinical aspects, security considerations, and confidentiality of information) were discussed with the patient. The patient encounter was conducted using a synchronous audio-visual interactive audio and video telecommunications system called: Android App Review [email or web address] Patient is attending the TeleHealth encounter from home. Patient was the only one present in the room The provider is attending the TeleHealth encounter from their office. Care provided by Telemedicine is due to the COVID-19 pandemic. Total Time spent during the encounter: 8 min. * Active Problem List Z68.36 BMI 36.0-36.9,adult Modified On:11/29/2021 Status:confirmed E66.9 Obesity (BMI 30-39.9 ) Modified On:11/29/2021 Status:confirmed G47.00 Insomnia, unspecifie d type Modified On:11/29/2021 Status:confirmed K21.9 Gastroesophageal ref lux disease without esophagitis Modified On:05/29/2023 Status:confirmed F51.4 Night terrors Modified On:12/06/2021 Status:confirmed F51.3 Sleep walking Modified On:12/06/2021 Status:confirmed G47.33 CAROLA (obstructive sle ep apnea) Modified On:05/29/2023 Status:confirmed E66.01 Morbid (severe) obes ity due to excess calories Modified On:05/29/2023 Status:confirmed Z68.38 Body mass index [BMI ] 38.0-38.9, adult Modified On:05/29/2023 Status:confirmed * Medical History: * Surgical History: * Hospitalization/Major Diagno stic Procedure: * Family History: F ather: alive, cva, diagnosed with Diabetes. M other: alive, a fib, diagnosed with Heart Disease. * Social History: T obacco Use: T obacco Use/Smoking P atient is a n onsmokeven H ousehold: H ousehold M arital status: m arried N P. * Medications: T akingOmeprazole 40 MG Capsule Delayed Release 1 capsule 30 minutes before morning meal Orally Once a day PNV Vitamin D (Ergocalciferol) 52641 UNIT Capsule 1 capsule Orally qweekly Taking Omeprazole 40 MG Capsule Delayed Release 1 capsule 30 minutes before morning meal Orally Once a day Taking PNV Taking Vitamin D (Ergocalciferol) 65481 UNIT Capsule 1 capsule Orally qweekly Not-Taking/PRNMeclizine HCl Metoprolol Tartrate 25 MG Tablet 1 tablet with food Orally Twice a day ZyrTEC Not- Taking/PRN Meclizine HCl Not-Taking/PRN Metoprolol Tartrate 25 MG Tablet 1 tablet with food Orally Twice a day Not-Taking/PRN ZyrTEC * Allergies: R agweed Objective: * Vitals: * Examination: G eneral Examination:: GENERAL APPEARANCE: well nourished, well developed, healthy Appearing. ENT: Normocephalic, Atraumatic,external ears normal by inspection. EYES: n o proptosis, normal sclera, conjunctiva not injected, no icteric. NECK: n o visible goiter, ROM appears wnl. MUSCULOSKELETAL L arge joint ROM appears wnl, no obvious joint swelling or redness. VASCULAR: n o obvious edema, no evidence of stasis dermatitis. SKIN: n o visible rash, no foot ulcers. NEUROLOGIC: n o obvious tremor; no obvious extremity or facial weakness. PSYCH: n on-anxious, normal affect. Assessment: * Assessment: 1. C hest pain, unspecified - R07.9 (Primary) 2 . S hortness of breath - R06.02 Plan: * Treatment: 2. S hortness of breath Notes: see above ER if worsens ?CTA chest to r/o PE if s/s worsen * Procedure Codes: * * Sign off status: Completed Visit Status: P EN (Pending) true * Provider: Maria E Quinones DO Date: 0 08/30/2023 Generated for Tiffanie burr/Gaby/Faustinoitting on: 0 12/23/2024 07:56 PM EDT History and Physical Notes * Examination Category Sub-Category Detail Notes Category Not es General Examination: GENERAL APPEARANCE: well no urished, well developed, healthy Appearing ENT: Normocephalic , Atra umatic, external ears normal by inspection EYES: no proptosis, normal sclera, conjunctiva not injected, no icteric NECK: no visible goiter, R OM appears wnl NEUROLOGIC: no obvious tremor; n o obvious extremity or facial weakness SKIN: no visible rash, no foot ulcers MUSCULOSKELETAL: Large joint ROM appe ars wnl, no obvious joint swelling or redness PSYCH: non-anxious, normal affect VASCULAR: no obvious edema, no evidence of stasis dermatitis
--- OUTSIDE RECORDS SUMMARY | 2023-11-01 10:00 | XMS_ITS ---
Author Organization [facility] in [place] Address [address] [facility] [place] [address] Care Team Providers Care Bank Advisor Name Role Phone Adebayo Quinones Primary Care Provider REASON FOR VISIT Rectal bleeding Encounters Encounter Location Date Provider Diagnosis [facility] [address] [place] [address] 11/01/2023 Adebayo Quinones Plan Of Treatment Next Appt Details Provider Name:Adebayo burr, 01/26/2025 10:00:00 AM, [address] [place], [address], Progress Notes * Andressa TRIPLETTDOB: [birth year] (34 yo F)Acc No.[id number]:11/01/2023 UNLOCKED PROGRESS NOTE Established Patient: Stephanie WAYNEJIMENEZ Andressa Provider: Maria E Quinones DO :1990 A ge:32 Y S ex:Female Date:11/01/2023 Address:[address] [place] [phone] Subjective: * Chief Complaints: * 1 . Rectal bleeding. * Medical History: Objective: * Vitals: Assessment: Plan: * Treatment: * * Electronic signature of Shabbir Quinones DO, [id number] on 12/23/2024 at 07:57 PM EDT Sign off status: Pending Visit Status: R /S (Rescheduled) * Provider: Maria E Quinones DO Date: 0 11/01/2023 Generated for Tiffanie burr/Gaby/Faustinoitting on: 0 12/23/2024 07:57 PM EDT
--- OUTSIDE RECORDS SUMMARY | 2023-11-08 11:15 | XMS_ITS ---
Author Organization [facility] in [place] Address [address] [place] [address] Care Team Providers Care Shell Trim Tool Setter Name Role Phone Stacie Adebayo Primary Care Provider [phone] Allergies Allergen (clinical drug ingredient) Drug/Non Drug Allergy documented on EMR Reaction Allergy Type Onset Date Status Ragweed Unknown Allergy Active Reason For Referral Reason rectal bleeding Diagnosis 1 Hemorrhage of anus a nd rectum (K62.5) Referral Organization Family Practice [facility] Referring Provider First Name Adebayo Referring Provider Last Name Stacie Referring Provider Speciality Family Med [facility] Referred Provider Specialty General Surg estuardo General [...] day Active PNV Active Vitamin D (Ergocalciferol) 14541 UNIT 1 capsule Orally qweekly for 30 days 06/18/2023 Active Metoprolol Tartrate 25 MG 1 tablet with food Orally Twice a day for 30 day(s) 11/14/2021 Not-Taking Meclizine HCl Not-Ta joy Social History Tobacco Use: Social History Observation Description Date Details (start date - stop date) Never Smoker NA - NA Tobacco Use/Smoking Question Answer Notes Patient 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 Problems Problem Type SNOMED Code ICD Code Onset Dates Problem Status W/U Status Risk Notes Problem 9375540 Female infertili ty, unspecified (N97.9) Active confirmed Problem 90282797 Vitamin D deficiency, unspecified (E55.9) Active confirmed Problem 816810031 Mixed hyperlipidemia (E78.2) Active confirmed Problem 165076608 Obesity, unspecified (E66.9) Active confirmed Problem 376236899 Body mass index [BMI] 36.0-36.9, adult (Z68.36) Active confirmed Vital Signs Weight 272.2 lbs 11/08/2023 Height 72 in 11/08/2023 Blood pressure systolic 142 mm Hg 11/08/19 24 Blood pressure diastolic 90 mm Hg 024 Heart Rate 82 /min 11/08/2023 Respiratory Rate 16 /min 11/08/2023 BMI 36.91 kg/m2 11/08/2023 Oximetry 98 % 11/08/2023 Encounters Encounter Location Date Provider Diagnosis [facility] [address] [place] [address] 11/08/2023 Adebayo Quinones Hemorrhage of anus a [...] K62.5) fax referral to dr miner at [facility] for eval and tx and colonoscopy prob int hem fiber monitor 11/08/2023 Female infertility, unspecified (ICD-10 - N97.9) set up pelvic US - ?PCOS f/u collection advisor as directed ?PCOS - d/w pt possible [...] rectum fax referral to dr miner at [facility] for eval and tx and colonoscopy prob int hem fiber monitor Female infertility, unspecified set up pelvic US - ?PCOS f/u collection advisor as directed ?PCOS - d/w pt possible [...] Name:Adebayo burr, 01/26/2025 10:00:00 AM, [address] [place], [address], Progress Notes * Andressa TRIPLETTDOB: [birth year] (32 yo F)Acc No.[id number]:11/08/2023 Established Patient: Andressa ALBERT Provider: Maria E Quinones DO :1990 A ge:32 Y S ex:Female Date:11/08/2023 Address:[address] [place], [place] [address], [id number] Check In:03:03 PM ESTCheck O ut:03:23 PM [...] menses at time of bleeding appt with collection advisor 12/2023 trying to get for 1 year [...] Once a day PNV Vitamin D (Ergocalciferol) 10961 UNIT Capsule 1 capsule Orally qweekly Taking Omeprazole 40 MG Capsule Delayed Release 1 capsule 30 minutes before morning meal Orally Once a day Taking PNV Taking Vitamin D (Ergocalciferol) 77665 UNIT Capsule 1 capsule Orally qweekly Not-Taking/PRNMeclizine [...] set up pelvic US - ?PCOS f/u collection advisor as directed ?PCOS - d/w pt possible [...] 11/08/2023 Generated for Tiffanie burr/Gaby/eTnaomismitting on: 0 12/23/2024 07:57 PM EDT History and Physical Notes * [...]
--- OUTSIDE RECORDS SUMMARY | 2023-11-26 11:38 | XMS_ITS ---
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9) Plan Of Treatment Pending Test Test Name Order Date US Transabdominal & Transvaginal 024 Next Appt Details Provider Name:Adebayo burr, 01/26/2025 10:00:00 AM, [address] [place], [address], Progress Notes * Andressa TRIPLETTDOB: [birth year] (32 yo F)Acc No.[id number]:11/26/2023 Patient: Andressa ALBERT :1990 A ge:32 Y S ex:Female Address:[address] [place] [address], [phone] Subjective: * Chief Complaints: * N eed order changed * Medical History: * Surgical History: * Hospitalization/Major Diagno stic Procedure: * Medications: Objective: * Vitals: * Physical Examination: Assessment: * Assessment: 1. F emale infertility, unspecified - N97.9 (Primary) Plan: * Treatment: * Procedure Codes: * true * Date: Generated for Tiffanie burr/Gaby/Aydensmmario on: 0 12/23/2024 11:35 AM EDT
--- OUTSIDE RECORDS SUMMARY | 2024-11-11 10:09 | XMS_ITS ---
Author Organization [facility] in [place] Address [address] [place] [address] Care Team Providers Care Institutional Research Coordinator Name Role Phone Adebayo Quinones Primary Care Provider [phone] REASON FOR VISIT needs wellness Encounters Encounter Location Date Provider Diagnosis [facility] [address] [place] [address] 11/11/2024 Adebayo Quinones Plan Of Treatment Next Appt Details Provider Name:Adebayo burr, 01/26/2025 10:00:00 AM, [address] [place], [address], Progress Notes * Andressa TRIPLETTDOB: [birth year] (33 yo F)Acc No.[id number]:11/11/2024 Patient: Stephanie Andressa MORRISSEY :1990 A ge:33 Y S ex:Female Address:[address] [place] [address], [phone] * true * Date: Generated for Printi ng/Faxing/eTransmitting on: 0 12/23/2024 11:35 AM EDT
--- OUTSIDE RECORDS SUMMARY | 2024-12-23 19:57 | XMS_ITS | Clinical Summary ---
Author Organization [facility] Address [address] [place] [address] Care Team Providers Care Education General Manager Name Role Phone Adebayo Quinones DO Primary Care Provider [phone] Allergies No known active allergies Medications omeprazole [...] Description 11/24/2024 3:30 PM EDT Ancillary Procedure [facility] [address] [place] [address] Awareness of heartbeats 11/12/2024 Orders Only [facility] [place] [facility] [address] [place] [address] Yoseph Mcintosh MD 10/22/2024 1:50 AM EDT Ancillary Procedure [facility] [address] [place] [address] Awareness of heartbeats 10/22/2024 Orders Only [facility] [address] [place] [address] Janell Felton MD 10/21/2024 10:00 AM EDT Office Visit [facility] Heart at [facility] [address] [place] [address] Yoseph Mcintosh MD Palpitations (Primary Dx) from [...] this topic Medical Devices Implanted Type Area Vegetable Grower Device Identifier Shelf Expiration Date Model / Serial / Lot Monitor,Cardi ac,Lux,Dxii+I - [id number] - [id number] Implanted:Qty : 1 on 06/18/2023 by Yoseph Mcintosh MD at [facility] Implantable Loop Recorder Left: Chest [employer] 11/26/2024 [id number] / [id number] / Procedures Procedure Name Priority Date/Time Associated [...] Yoseph Mcintosh MD CV IMPLANTABLE CARDIAC DEVICE IN OCEDURES Final Result CPACS * Cardiac device check - Remote loop recorder (ILR) (11/12/2024 12:00 AM EDT) Only the most recent of2 resultswithin the time period is included. Anatomical Region Laterality Modality Other 11/12/2024 us Yoseph Mcintosh MD CV IMPLANTABLE CARDIAC DEVICE IN OCEDURES Final Result from Last 3 Months Insurance Care Teams Education General Manager Relationship Specialty Start Date End Date Adebayo Quinones DO [address] [place] [address] PCP - General 11/14/22
--- OUTSIDE RECORDS SUMMARY | 2024-12-23 19:57 | XMS_ITS | Encounter Summary ---
Author Organization [facility] tem Address [facility]-[id number] [address] [place] [address] Care Team Providers Care Motorcycle Racer Name Role Phone Unavailable Primary Care Provider [...] 3:00 PM EDT Telemedicine Maternal- Medicine at [facility] [address] [place] [address] Hanny Ware, DREDGE MASTER-PICK OUT HAND [address] [place] [address] documented as of this encounter Visit Diagnoses Not on filedocumented in this encounter
--- OUTSIDE RECORDS SUMMARY | 2024-12-23 19:57 | XMS_ITS | Encounter Summary ---
Author Organization [facility] tem Address [id number]-[id number] [address] [place] [address] Care Team Providers Care Mounter Automatic Name Role Phone Unavailable Primary Care Provider Unavailabl e Encounter Details Date Type Department Care Team (Latest Contact Info) Description 12/18/2024 Travel Social History Tobacco Use Types Packs/Day [...] [facility] [address] [place] [address] aHnny Ware, PRN OCCUPATIONAL THERAPIST-MANAGER INTERNAL [address] [place] [address] documented as of this encounter Visit Diagnoses Not on filedocumented in this encounter
--- OUTSIDE RECORDS SUMMARY | 2024-12-23 19:57 | XMS_ITS | Encounter Summary ---
Author Organization [facility] Address [address] [place] [address] Care Team Providers Care Fittings Finisher Name Role Phone Adebayo Quinones DO Primary Care Provider [phone] Encounter Details Date Type Department Care Team (Late st Contact Info) Description 10/22/2024 Orders Only [facility] Cardiology Clinic [address] [place] [address] Janell Felton MD [address] [place] [address] Social History Tobacco Use Types [...] on filedocumented in this encounter Care Teams Fittings Finisher Relationship Specialty Start Date End Date Adebayo Quinones DO [address] [place] [address] PCP - General 11/14/22 documented as of this encounter
--- OUTSIDE RECORDS SUMMARY | 2024-12-23 19:57 | XMS_ITS | Clinical Summary ---
Author Organization [facility] Address [address], [address] [place] [address] Care Team Providers Care Hand Mexican Food Maker Name Role Phone Unavailable Primary Care [...]
--- OUTSIDE RECORDS SUMMARY | 2024-12-23 19:57 | XMS_ITS | Encounter Summary ---
Author Organization [facility] Address [address], [address] [place] [address] Care Team Providers Care House Rn Name Role Phone Unavailable Primary Care Provider Unavailabl e Reason for Referral * Other (Routine) - Closed Specialty Diagnoses / Procedures Referred By Contac t Referred To Contact Cardiology Diagnoses Palpitations Syncope and collapse Procedures Tilt Table Test Clarence Wolf APRN - CNP Phone: tel: fax: Referral ID Status Reason Start Date Expiration Date Visits Re quested Visits Authorized [id number] Closed 11/16/2022 11/16/2023 1 1 Encounter Details Date Type Department Care Team (Latest Contact Info) Description 11/16/2022 Transcribe Orders [facility] [address] [place] [address] Clarence Wolf APRN - CNP [address] [place] [address] Palpitations (Primary Dx); Syncope and collapse Social [...]
--- OUTSIDE RECORDS SUMMARY | 2024-12-23 19:57 | XMS_ITS | Encounter Summary ---
Author Organization [facility] [employer] [facility] tem Address [facility]-[id number] [address] [place] [address] Care Team Providers Care Processor Solid Propellant Name Role Phone Unavailable Primary Care Provider Unavailabl e Encounter Details Date Type Department Care Team (Late st Contact Info) Description 12/09/2024 Telephone Maternal- Medicine at [facility] [address] [facility] [place] [address] Yojana Diehl, HALEY Social History [...] PM EDT Telemedicine Maternal- Medicine at [facility] [address] [place] [address] Hanny Ware, NAVY FIGHTER PILOT-ROCKET MOTOR TESTER [address] [place] [address] documented as of this encounter Visit Diagnoses Not on filedocumented in this encounter
--- OUTSIDE RECORDS SUMMARY | 2024-12-23 19:57 | XMS_ITS | Encounter Summary ---
Author Organization [facility] [employer] [facility] tem Address [facility]-[id number] [address] [place] [address] Care Team Providers Care Chemistry Quality Control Analyst Name Role Phone Unavailable Primary Care Provider Unavailabl e Encounter Details Date Type Department Care Team (Late st Contact Info) Description 12/18/2024 Telephone Maternal- Medicine at [facility] [address] [facility] [place] [address] Tessie Carranza, HALEY Social History [...] phone. Andressa is unable to connect to [employer] Video call with Hanny Ware NP. Patient [...] 3:00 PM EDT Telemedicine Maternal- Medicine at [facility] [address] [place] [address] Hanny Ware, DETACKER-YARDER PUNCHER [address] [place] [address] documented as of this encounter Visit Diagnoses Not on filedocumented in this encounter
--- OUTSIDE RECORDS SUMMARY | 2024-12-23 19:58 | XMS_ITS | Encounter Summary ---
Author Organization [facility] [employer] [facility] tem Address [id number] [address] [place] [address] Care Team Providers Care Human Resources Technician Name Role Phone Unavailable Primary Care Provider Unavailabl e Encounter Details Date Type Department Care Team (Late st Contact Info) Description 12/09/2024 Orders Only [facility] [address] [place] [address] Mary Scanlon, PAEveC [address] [address] Social History Tobacco Use Types Packs/Day Years [...] 3:00 PM EDT Telemedicine Maternal- Medicine at [facility] [address] [place] [address] Hanny Ware, STAVE LOG RIPSAW OPERATOR-INDUSTRIAL COFFEE GRINDER [address] [place] [address] documented as of this encounter Visit Diagnoses Not on filedocumented in this encounter
--- OUTSIDE RECORDS SUMMARY | 2024-12-23 19:58 | XMS_ITS | Encounter Summary ---
Author Organization [facility] [employer] tem Address [facility]-[id number] [address] [place] [address] Care Team Providers Care Elementary Ell Teacher Name Role Phone Unavailable Primary Care Provider Unavailabl e Encounter Details Date Type Department Care Team (Late Contact Info) Description 11/24/2024 Orders Only Maternal- Medicine at [facility] [address] [place] [address] Ref Prov, [place] [address] Social History Tobacco Use Types Packs/Day Years [...] 3:00 PM EDT Telemedicine Maternal- Medicine at [facility] [address] [place] [address] Hanny Ware, KICK PRESS OPERATOR-PHOTOGRAPHIC PROCESSOR [address] [place], [place] [address] documented as of this encounter Visit Diagnoses Not on filedocumented in this encounter
--- OUTSIDE RECORDS SUMMARY | 2024-12-23 19:58 | XMS_ITS | Clinical Summary ---
Author Organization [employer] tem Address [facility]-[id number] [address] [place] [address] Care Team Providers Care Receiver Stocker Name Role Phone Unavailable Primary Care Provider [...] Team Description 12/18/2024 Telephone Maternal- Medicine at [facility] [address] [place] [address] Tessie Carranza RN 12/18/2024 Travel 12/11/2024 Travel 12/09/2024 Telephone Maternal- Medicine at [facility] [address] [place] [address] Yojana Diehl, HALEY 12/09/2024 Orders Only [facility] [address] [place] [address] Mary Scanlon PA-C 12/03/2024 Telephone Maternal- Medicine at [facility] [address] [place] [address] Juli Quezada LD 12/03/2024 Orders Only Maternal- Medicine at [place] [address] [place] [address] Hanny Ware APRN-GRANT 11/28/2024 11:30 AM EDT Office Visit Maternal- Medicine at [facility] [address] [place] [address] Priscila Granados MD Insulin controlled gestational diabetes mellitus (GDM) in third trimester (Primary Dx); Prediabetes in mother during ; Family history of type 2 diabetes mellitus; Obesity affecting , antepartum, unspecified obesity type; 32 weeks gestation of 11/28/2024 Travel 11/26/2024 Documentation Maternal- Medicine at [facility] [address] [place] [address] Yojana Diehl, HALEY 11/26/2024 Telephone Maternal- Medicine at [place] [address] [place] [address] Yojana Diehl RN 11/25/2024 Telephone Maternal- Medicine at [facility] [address] [place] [address] Naomie Huber LD 11/25/2024 Telephone Maternal- Medicine at [facility] [address] [place] [address] Naomie Huber LD 11/24/2024 Orders Only Maternal- Medicine at [facility] [address] [place] [address] Ref Prov, Not In System 11/24/2024 Abstract Maternal- Medicine at [facility] [address] [place] [address] External, Scanning Provider 11/20/2024 10:30 AM EDT Telemedicine Maternal- Medicine at [facility] [address] [place] [address] Miroslava Trinidad RN Juli Quezada LD Karl, Deborah, LD Gestational diabetes mellitus (GDM) in second trimester, gestational diabetes method of control unspecified 11/20/2024 Travel 11/13/2024 Orders Only Maternal- Medicine at [facility] [address] [place] [address] Ref Prov, Not In System 11/13/2024 Abstract Maternal- Medicine at [facility] [address] [place] [address] Provider, Generic External Data from Last 3 [...] 3:00 PM EDT Telemedicine Maternal- Medicine at [facility] [address] [place] [address] Hanny Ware, DENTAL CERAMIST-DEPARTMENT OF SOCIOLOGY CHAIR [address] [place] [address] Health Maintenance Due Date Last Done Comments [...] 1:48 PM EDT) Anatomical Region Laterality Modality OB-HOG COUNTER Ultrasound 12/11/2024 1:18 PM EDT Narrative 12/11/2024 2:46 PM EDT NAME: IOANA HUA : 1990 SEX: F Accession Number: [id number] ORDERING PHYSICIAN: KENN MCHUGH REFERRING PHYSICIAN: KENN MCHUGH Coding ----- --------- Procedures 62384: Ultrasound, uterus, real time with image documentation, and maternal evaluation plus detailed anatomic examination, transabdominal approach;single or first gestation Indication ----- --------- Screening for Anatomic Survey , Gestational diabetes, Obesity in . History ----- --------- OB History 1. Para 0 [id number] Maternal Assessment ----- --------- Physical Exam Height [...] EFW (oz) 6 oz EFW by: Hadlock ([id number]) Extended Tibia 60.4 mm 35w 1d 83% [...] Heart / Thorax 4-chamber view. 3-vessel view. 1-heqhri-zgwhuir view. Bicaval view. Interventricular septum. Great vessels. [...] HUA : 1990 SEX: F Accession Number: [id number] ORDERING PHYSICIAN: KENN MCHUGH REFERRING PHYSICIAN: KENN MCHUGH Coding ----- --------- Procedures 89886: Ultrasound, uterus, real time with imagedocumentation, and maternal evaluation plus detailed anatomic examination, transabdominalapproach;single or first gestation Indication ----- --------- Screening for Anatomic Survey , Gestational diabetes, Obesity inpregnancy. History ----- --------- OB History 1. Para 0 [id number] Maternal Assessment ----- --------- Physical Exam Height 183 cm, 6 ft. Weight 133 kg, 293 lb. Initial ulbimv067 kg, 279 lb. BMI 39.74 kg/m . [...] EFW (oz) 6 oz EFW by: Hadlock ([id number]) Extended Tibia 60.4 mm 35w 1d 83% [...] Heart / Thorax 4-chamber view. 3-vessel view. 2-xsrlue-bqpmhmg view.Bicaval view. Interventricular septum. Great vessels. Diaphragm. [...] period is included. Anatomical Region Laterality Modality OB-HOG COUNTER Ultrasound us Not In System Ref Prov IMG US ORDERABLES Final R esult from Last 3 Months Insurance ANTH
--- OUTSIDE RECORDS SUMMARY | 2024-12-23 19:58 | XMS_ITS | Encounter Summary ---
Author Organization [facility] Address [address] [place] [address] Care Team Providers Care Software Developer Manager Name Role Phone Adebayo Quinones DO Primary Care Provider [phone] Encounter Details Date Type Department Care Team (Late st Contact Info) Description 11/12/2024 Orders Only [facility] Cardiology Clinic [address] [place] [address] Yoseph Mcintosh MD [address] [place] [address] Social History Tobacco Use Types [...] Yoseph Mcintosh MD CV IMPLANTABLE CARDIAC DEVICE NV OCEDURES Final Result documented in this encounter Visit Diagnoses Not on filedocumented in this encounter Care Teams Software Developer Manager Relationship Specialty Start Date End Date Adebayo Quinones DO [address] [place] [address] PCP - General 11/14/22 documented as of this encounter
--- OUTSIDE RECORDS SUMMARY | 2024-12-23 19:58 | XMS_ITS | Encounter Summary ---
Author Organization [facility] [employer] [facility] tem Address [facility][id number] [address] [place] [address] Care Team Providers Care Hammerer Tab Name Role Phone Unavailable Primary Care Provider Unavailabl e Encounter Details Date Type Department Care Team (Late st Contact Info) Description 11/13/2024 Orders Only Maternal- Medicine at [facility] [address] [place] [address] Ref Prov, [place] [address] Social History Tobacco Use Types Packs/Day Years [...] 3:00 PM EDT Telemedicine Maternal- Medicine at [facility] [address] [place] [address] Hanny Ware, VIBRATOR EQUIPMENT TESTER-FISHER TRAWL LINE [address] [place], [place] [phone] documented as of this encounter Procedures Procedure [...] 11:25 AM EDT) Anatomical Region Laterality Modality 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
--- OUTSIDE RECORDS SUMMARY | 2024-12-23 19:58 | XMS_ITS | Patient Health Record ---
Author Organization [facility] in [place] Address [address] [place] [address] Care Team Providers Care [employer] Name Role Phone Adebayo Quinones Primary Care [...] day Active PNV Active Vitamin D (Ergocalciferol) 22646 UNIT 1 capsule Orally qweekly for 30 days 06/18/2023 Active Meclizine HCl Not-Ta joy Immunizations Vaccine Route Administration Date Status Comme nts Flu, Fluzone (56166) 6 mos+, single-dose syringe/vial (9940-5766) Unknown 02/12/2023 Administered Social History Tobacco Use: Social History Observation Description Date Details (start date - stop date) Never Smoker NA - NA Tobacco Use/Smoking Question Answer Notes Patient 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 Alcohol Screen (Audit-C) Question Answer Notes Did you have a drink containing alcohol in the p ast year? No Points 0 Interpretation Negative Section Notes: [facility] Problems Problem Type SNOMED Code ICD Code Onset Dates Problem Status W/U Status Risk Notes Problem 87688906 Vitamin D deficiency, unspecified (E55.9) Active confirmed Problem 92680318758811 Morbid (severe) obesity due to excess calories (E66.01) Active confirmed Problem 010061569 Obesity, unspecified (E66.9) Active confirmed Problem 300185291 Mixed hyperlipidemia (E78.2) Active confirmed Problem 8573861 Female infertili ty, unspecified (N97.9) Active confirmed Problem 80361291 CAROLA (obstructive sleep apnea) (G47.33) Active confirmed Problem 110654649 Gastroesophageal reflux disease without esophagitis (K21.9) Active confirmed Problem 69569216 Sleep walking (F51.3) Active confirmed Problem 226768356 Insomnia, unspecified type (G47.00) Active confirmed Problem 03469778 Night terrors (F51.4) Active confirmed Problem 371895727 Body mass index [BMI] 36.0-36.9, adult (Z68.36) Active confirmed Problem 820179415 Body mass index [BMI] 38.0-38.9, adult (Z68.38) Active confirmed Encounters Encounter Location Date Provider Diagnosis [facility] [address] [place] [address] 11/11/2024 Adebayo Quinones Plan Of Treatment Pending [...] Name:Adebayo burr, 01/26/2025 10:00:00 AM, [address] [place], [address], Insurance Providers Payer Name Payer Address Payer Phone Subscriber Number Group Number Insured Name Patient Relationship to Insured Coverage Start Date Coverage End Date [employer] PPO PLUS LOCAL PLAN [address] [place] [phone] [id number] Andressa Prasad Self - patient is the insured 4 Medical (General) History Medical History History ICD Code prediabetes B12 deficiency hyperlipidemia gerd carola
--- OUTSIDE RECORDS SUMMARY | 2024-12-23 20:01 | XMS_ITS | CCD ---
Author Organization [facility] Care Team Providers Care Plugger Worker Name Role Phone BECK, DR ADEBAYO [...] Unavailable Solares, Adebayo Primary Care Unavailable Jaret PATTERN SHOP SUPERVISOR-NATUROPATHIsabella Attending Unavaila ble SolaresAdebayo Primary Care Unavailable Jaret PATTERN SHOP SUPERVISOR-NATUROPATHIsabella Attending Unavaila ble Solares, Adebayo Primary Care [...] Referring Unavailable MARIANA NEWMAN Attending Unavailable RIDDHIMIGUEL Referring Unavailable RIDDHI, MIGUEL Attending Unavailable PAULA, MAUREEN Attending Unavailable RIDDHI, MIGUEL Attending Unavailable RIDDHI, MIGUEL Attending Unavailable RIDDHI, MIGUEL Attending Unavailable PAULA, MAUREEN Attending Unavailable PAULA, MAUREEN Attending Unavailable RIDDHI, MIUGEL Attending Unavailable RIDDHI, MIGUEL Attending Unavailable RIDDHI, MIGUEL Attending Unavailable PAULA, MAUREEN Attending Unavailable KATELIN, MAGNUS Attending Unavailable MIGUEL HANNON Referring Unavailable SAUL GRANADOS Attending Unavailable MIGUEL HANNON Referring Unavailable NAOMIE CHAHAL Attending Unavailable MIGUEL HANNON Referring Unavailable Allergies Allergy Classification Reported Allergen(s) Allergy Type Date of Onset Reaction(s) Facility (1 source) No Known Medication Allergies; Translations: [No Known Medication Allergies] Propensity to adverse reactions to drug (disorder) [facility] Repository Medications Current Medications Medication Drug Class(es) Dates Sig (Normalized) Sig (Original) aspirin 81 mg delayed release oral tablet (20 sources) Platelet Aggregation Inhibitor, Nonsteroidal Anti-inflammatory Drug take 1 tablet by mouth in the morning aspirin 81 MG EC tablet Take 81 mg by mouth in the morning. Active Blood Glucose Monitoring Suppl (D-Care Glucometer) w/Device kit (17 sources) Start: 11-10-2024 End: 11-10-2025 Blood Glucose [...] Continuous Glucose Sensor (Dexcom G7 Sensor) misc (11 sources) Start: 12-02-2024 End: 01-01-2025 Continuous Glucose Sensor (Dexcom G7 Sensor) misc Indications: Gestational diabetes mellitus (GDM), antepartum, gestational diabetes method of control unspecified (HHS-HCC) 1 each Every 10 (ten) days 3 each 1 12/02/2024 01/01/2025 Active 3 ml insulin glargine 100 unt/ml pen injector (19 sources) Insulin Analog Start: 12-18-2024 inject 2 [...] 15 mL 12/03/2024 12/09/2024 Discontinued Start: 11-28-2024 Lantus SoloSta r 100 UNIT/ML pen Inject 20 Units under the skin at bedtime 11/28/2024 Active Start: 11-28-2024 Lantus SoloSta r 100 UNIT/ML pen Inject 16 Units under the skin at bedtime 11/28/2024 Active Start: 11-28-2024 inject 100 [IU] by [...] (Reorder) isopropyl alcohol 0.7 ml/ml medicated pad (17 sources) Start: 11-10-2024 Alcohol Swabs (Alcohol Prep Pad) 70 % pads Indications: Gestational diabetes mellitus (GDM), antepartum, gestational diabetes method of control unspecified ([facility]) , Elevated glucose tolerance test Apply 1 [...] tolerance complicating ; childbirth; or the puerperium (14 sources) Gestational diabetes mellitus; Translations: [Gestational diabetes [...] 12-25-2023 Chronic Other and delivery including normal (18 sources) Second trimester ; Translations: [Encounter for [...] of ] 11-28-2024 Episodic Residual codes; unclassified (2 sources) Gestation period, 33 weeks; Translations: [33 weeks gestation of ] 12-02-2024 Episodic Residual codes; unclassified (2 sources) Gestation period, 35 weeks; Translations: [35 weeks gestation of ] 12-16-2024 Episodic Residual codes; unclassified (1 source) Family history of diabetes mellitus; Translations: [Family history of diabetes mellitus] Onset: 11-28-2024 Episodic Residual codes; unclassified (1 source) 32 weeks gestation of ; Translations: [32 weeks gestation of ] Onset: 11-28-2024 Episodic Residual codes; unclassified (2 sources) Gestation period, 36 weeks; Translations: [36 weeks gestation of ] 12-23-2024 Episodic Syncope (1 source) Syncope and collapse; Translations: [Syncope and collapse] Onset: 12-12-2022 Episodic Unclassified (1 source) GDM, med start Onset: 11-28-2024 Unclassified (1 source) Gestational Diabetes Onset: 11-20-2024 Results Test Name Value Interpretation Reference Range Facility Urinalysis macro (dipstick) panel (U)on 12-23-2024 Bilirubin, UA Negative Negative - 4(70) +++ mg/dL [facility] Blood, UA Negative Negative - 50 Osmin/mcL [facility] Clarity, UA [facility] Glucose, UA Negative Negative - 2000(110) ++++ mg/dL [facility] Interpretation and review of laboratory results Abnormal [facility] Ketones, UA Negative Negative - 160(16) ++++ mg/dL [facility] Leukocytes, UA Positive Negative - 500+++ Oumou/mcL [facility] Comment on above: 2+ Nitrite, UA Negative Negative - Positive [facility] pH, UA 6 5 - 9 [facility] Protein, UA Positive Negative - 2000(20) ++++ mg/dL [facility] Spec Grav, UA 1.015 1 - 1.03 [facility] Urobilinogen, UA 1.0 0.2 - 12 mg/dL [facility] US OB BPP W NON-STRESS on 12-19-2024 [place] [address] Ultrasound Report Signed Patient: JAVID PRASAD MR#: [id number] : 1990 Acct:[id number] Age/Sex: 33 / F ADM Date: 12/19/24 Loc: US Attending Dr: Miguel Hannon D.O. Ordering Physician: Miguel Hannon D.O. Date of Service: 12/19/24 Procedure(s): US OB BPP w non-stress Accession Number(s): [id number] cc: Miguel Hannon D.O.; ADEBAYO SOLARES D.O. [address] [address] Patient Name: JAVID PRASAD MRN: [id number]:[id number] date: 1990 Sex: F Assigned Patient Location: [facility] Current Patient Location: Accession/Order Number: [id number] Exam Date: 12/19/2024 19:14 Report Date: 12/19/2024 21:48 At the request of: MIGUEL HANNON DO Procedure: US OB BPP w non-stress Ultrasound biophysical profile HISTORY: Gestational diabetes Adequate breathing movement, gross body movement, tone and amniotic fluid volume for total score of 8 out of 8. The amniotic fluid index is 15.8cm within normal limits. The heart rate 147 bpm. US/US OB BPP w non-stress IMPRESSION: Adequate ultrasound biophysical profile Impression dictated by: Sergo Deutsch M.D. 12/19/2024 9:48 PM Dictation Location: [place] Electronically authenticated by: [id number] Y Date: 12/19/2024 21:48 Dictated By: Sergo Deutsch D.O. Signed By: 12/19/242149 DD/ 47 TD/TT: Quality Assurance Analyst: [facility] Radiology, Radiologist, - 12/19/2024 [place] [address] Ultrasound Report Signed Patient: JAVID PRASAD MR#: [id number] : 1990 Acct:[id number] Age/Sex: 33 / F ADM Date: 12/19/24 Loc: US Attending Dr: Miguel Hannon D.O. Ordering Physician: Miguel Hannon D.O. Date of Service: 12/19/24 Procedure(s): US OB BPP w non-stress Accession Number(s): [id number] cc: Miguel Hannon D.O.; ADEBAYO SOLARES D.O. The [place] [id number] Patient Name: JAVID PRASAD MRN: [facility]:[id number] date: 1990 Sex: F Assigned Patient Location: [facility] Current Patient Location: Accession/Order Number: [id number] Exam Date: 12/19/2024 19:14 Report Date: 12/19/2024 21:48 At the request of: MIGUEL HANNON DO Procedure: US OB BPP w non-stress Ultrasound biophysical profile HISTORY: Gestational diabetes Adequate breathing movement, gross body movement, tone and amniotic fluid volume for total score of 8 out of 8. The amniotic fluid index is 15.8cm within normal limits. The heart rate 147 bpm. US/US OB BPP w non-stress IMPRESSION: Adequate ultrasound biophysical profile Impression dictated by: Sergo Deutsch M.D. 12/19/2024 9:48 PM Dictation Location: [place] Electronically authenticated by: [id number] Y Date: 12/19/2024 21:48 Dictated By: Sergo Deutsch D.O. Signed By: 12/19/242149 DD/ 47 TD/TT: Quality Assurance Analyst: [facility] Radiology Study observation (narrative) [facility] US OB BPP W NON-STRESS Ordered By: Radiologist Radiology on 12-19-2024 [facility] Work Phone: Urinalysis macro (dipstick) panel (U)on 12-16-2024 Bilirubin, UA Negative Negative - 4(70) +++ mg/dL [facility] Blood, UA Negative Negative - 50 Osmin/mcL [facility] Clarity, UA Clear [facility] re Color, UA Yellow [facility] Glucose, UA Negative Negative - 2000(110) ++++ mg/dL [facility] Interpretation and review of laboratory results Abnormal [facility] Ketones, UA Negative Negative - 160(16) ++++ mg/dL [facility] Leukocytes, UA Positive Negative - 500+++ Oumou/mcL [facility] Nitrite, UA Negative Negative - Positive [facility] pH, UA 6 5 - 9 [facility] e Protein, UA Negative Negative - 2000(20) ++++ mg/dL [facility] Spec Grav, UA 1.015 1 - 1.03 [facility] Urobilinogen, UA 1.0 0.2 - 12 mg/dL [facility] US OB BPP W NON-STRESS on 12-12-2024 [place] [address] Ultrasound Report Signed Patient: JAVID PRASAD MR#: [id number] : 1990 Acct:[id number] Age/Sex: 33 / F ADM Date: 12/12/24 Loc: [facility] 250-[address]: Miguel Hannon D.O. Ordering Physician: Miguel Hannon D.O. Date of Service: 12/12/24 Procedure(s): US OB BPP w non-stress Accession Number(s): [id number] cc: Miguel Hannon D.O.; ADEBAYO SOLARES D.O. [address] [address] Patient Name: JAVID PRASAD MRN: [facility]:[id number] date: 1990 Sex: F Assigned Patient Location: [facility] Current Patient Location: [facility] Accession/Order Number: [id number] Exam Date: 12/12/2024 19:06 Report Date: 12/12/2024 [...] Mcdermott M.D. 12/12/2024 8:20 PM Dictation Location: [place] [address] Electronically authenticated by: [id number] Y Date: 12/12/2024 20:20 Dictated By: Tutu Mcdermott M.D. Signed By: 12/12/242022 DD/ 19 TD/TT: Quality Assurance Analyst: [facility] Radiology, Radiologist, MD - 12/12/2024 [place] [address] Ultrasound Report Signed Patient: JAVID PRASAD MR#: [id number] : 1990 Acct:[id number] Age/Sex: 33 / F ADM Date: 12/12/24 Loc: [facility] 250-[address]: Miguel Hannon D.O. Ordering Physician: Miguel Hannon D.O. Date of Service: 12/12/24 Procedure(s): US OB BPP w non-stress Accession Number(s): [id number] cc: Miguel Hannon D.O.; ADEBAYO SOLARES D.O. [address] [address] Patient Name: JAVID PRASAD MRN: [id number] date: 1990 Sex: F Assigned Patient Location: [facility] Current Patient Location: [facility] Accession/Order Number: [id number] Exam Date: 12/12/2024 19:06 Report Date: 12/12/2024 [...] Mcdermott M.D. 12/12/2024 8:20 PM Dictation Location: [place] [address] Electronically authenticated by: [id number] Y Date: 12/12/2024 20:20 Dictated By: Tutu Mcdermott M.D. Signed By: 12/12/242022 DD/ 19 TD/TT: Quality Assurance Analyst: [facility] Study observation (narrative) [facility] US OB BPP W NON-STRESS Ordered By: Radiologist Radiology on 12-12-2024 [facility] [employer] Work Phone: US OB BPP W NON-STRESS on 12-06-2024 [place] [id number] Ultrasound Report Signed Patient: JAVID PRASAD MR#: [id number] : 1990 Acct:[id number] Age/Sex: 33 / F ADM Date: 12/05/24 Loc: US Attending Dr: Miguel Hannon D.O. Ordering Physician: Miguel Hannon D.O. Date of Service: 12/05/24 Procedure(s): US OB BPP w non-stress Accession Number(s): [id number] cc: Miguel Hannon D.O.; ADEBAYO SOLARES D.O. [place] [address] Patient Name: JAVID PRASAD MRN: [facility]:[id number] date: 1990 Sex: F Assigned Patient Location: [facility] Current Patient [place] [facility] [place]ion/Order Number: [id number] Exam Date: 12/05/2024 19:12 Report Date: 12/06/2024 [...] Mcdermott M.D. 12/06/2024 5:01 PM Dictation Location: [place] [address] Electronically authenticated by: [id number] Y Date: 12/06/2024 17:01 Dictated By: Tutu Mcdermott M.D. Signed By: 12/06/242015 DD/ 00 TD/TT: Quality Assurance Analyst: [facility] Radiology, Radiologist, - 12/06/[address] [address] Ultrasound Report Signed Patient: JAVID PRASAD MR#: [id number] : 1990 Acct:[id number] Age/Sex: 33 / F ADM Date: 12/05/24 Loc: US Attending Dr: Miguel Hannon D.O. Ordering Physician: Miguel Hannon D.O. Date of Service: 12/05/24 Procedure(s): US OB BPP w non-stress Accession Number(s): [id number] cc: Miguel Hannon D.O.; ADEBAYO SOLARES D.O. The [place] [id number] Patient Name: JAVID PRASAD MRN: [id number] date: 1990 Sex: F Assigned Patient Location: [facility] Current [place] [facility] Accession/Order Number: [id number] Exam Date: 12/05/2024 19:12 Report Date: 12/06/2024 [...] Mcdermott M.D. 12/06/2024 5:01 PM Dictation Location: [place] [address] Electronically authenticated by: [id number] Y Date: 12/06/2024 17:01 Dictated By: Tutu Mcdermott M.D. Signed By: 12/06/242015 DD/ 1701 TD/TT: Quality Assurance Analyst: [facility] Radiology Study observation (narrative) [facility] OB BPP W NON-STRESS Ordered By: Radiologist Radiology on 12-06-2024 [facility] Work Phone: Urinalysis macro (dipstick) panel (U)on 12-02-2024 Bilirubin, UA Negative Negative - 4(70) +++ mg/dL [facility] Blood, UA Negative Negative - 50 Osmin/mcL [facility] Clarity, UA Clear [facility] re Color, UA Yellow [facility] Glucose, UA Negative Negative - 1999(110) ++++ mg/dL [facility] Interpretation and review of laboratory results Abnormal [facility] Ketones, UA Negative Negative - 160(16) ++++ mg/dL [facility] Leukocytes, UA Positive Negative - 500+++ Oumou/mcL [facility] Nitrite, UA Negative Negative - Positive [facility] pH, UA 6 5 - 9 [facility] e Protein, UA Negative Negative - 1999(20) ++++ mg/dL [facility] Spec Grav, UA 1.025 1 - 1.03 [facility] Urobilinogen, UA 1.0 0.2 - 12 mg/dL [facility] POCT Hemoglobin A1con 2024 HbA1c (Bld) [Mass fraction] 5.7 % 4 - 7 % [facility] OB BPP W NON-STRESS on 11-27-2024 [place] [address] Ultrasound Report Signed Patient: JAVID PRASAD MR#: [id number] : 1990 Acct:[id number] Age/Sex: 33 / F ADM Date: 11/27/24 Loc: US Attending Dr: Miguel Hannon D.O. Ordering Physician: Miguel Hannon D.O. Date of Service: 11/27/24 Procedure(s): US OB BPP w non-stress Accession Number(s): [id number] cc: Miguel Hannon D.O.; ADEBAYO SOLARES D.O. [place] [id number] Patient Name: JAVID PRASAD MRN: [facility]:[id number] date: 1990 Sex: F Assigned Patient Location: [facility] Current Patient Location: Accession/Order Number: [id number] Exam Date: 11/27/2024 23:39 Report Date: 11/27/2024 [...] Deutsch M.D. 11/27/2024 11:40 PM Dictation Location: [place] [address] Electronically authenticated by: [id number] Y Date: 11/27/2024 23:40 Dictated By: Sergo Deutsch D.O. Signed By: 11/27/24 2342 DD/ TD/TT: Quality Assurance Analyst: [facility] Radiology, Radiologist, - 11/27/2024 [place] [address] Ultrasound Report Signed Patient: JAVID PRASAD MR#: [id number] : 1990 Acct:[id number] Age/Sex: 33 / F ADM Date: 11/27/24 Loc: US Attending Dr: Miguel Hannon D.O. Ordering Physician: Miguel Hannon D.O. Date of Service: 11/27/24 Procedure(s): US OB BPP w non-stress Accession Number(s): [id number] cc: Miguel Hannon D.O.; ADEBAYO SOLARES D.O. The [address] [address] Patient Name: JAVID PRASAD MRN: [facility]:[id number] date: 1990 Sex: F Assigned Patient Location: [facility] Current Patient Location: Accession/Order Number: [id number] Exam Date: 11/27/2024 23:39 Report Date: 11/27/2024 [...] Deutsch M.D. 11/27/2024 11:40 PM Dictation Location: [place] Electronically authenticated by: [id number] Y Date: 11/27/2024 23:40 Dictated By: Sergo Deutsch D.O. Signed By: 11/27/242341 DD/ 39 TD/TT: Quality Assurance Analyst: [facility] Radiology Study observation (narrative) [facility] US OB BPP W NON-STRESS Ordered By: Radiologist Radiology on 11-27-2024 [facility] Work Phone: Urinalysis macro (dipstick) panel (U)on 11-18-2024 Bilirubin, UA Negative Negative - 4(70) +++ mg/dL [facility] Blood, UA Negative Negative - 50 Osmin/mcL [facility] Clarity, UA Clear [facility] re Color, UA Light Yellow [facility] are Glucose, UA Trace Negative - 1999(110) ++++ mg/dL [facility] Interpretation and review of laboratory results Normal [facility] Ketones, UA Negative Negative - 160(16) ++++ mg/dL [facility] Leukocytes, UA Negative Negative - 500+++ Oumou/mcL [facility] Nitrite, UA Negative Negative - Positive [facility] pH, UA 6 5 - 9 [facility] e Protein, UA Negative Negative - 1999(20) ++++ mg/dL [facility] Spec Grav, UA 1.015 1 - 1.03 [facility] Urobilinogen, UA 4.0 0.2 - 12 mg/dL [facility] US OB INCOMPLETE ANATOMYon 0 11-14-[address] [address] Ultrasound Report Signed Patient: JAVID PRASAD MR#: [id number] : 1990 Acct:[id number] Age/Sex: 33 / F ADM Date: 11/13/24 Loc: US Attending Dr: Miguel Hannon D.O. Ordering Physician: Miguel Hannon D.O. Date of Service: 11/13/24 Procedure(s): US OB incomplete anatomy Accession Number(s): [id number] cc: Miguel Hannon D.O.; ADEBAYO SOLARES D.O. [place] [id number] Patient Name: JAVID PRASAD MRN: [id number]:[id number] date: 1990 Sex: F Assigned Patient Location: US Current Patient Location: Accession/Order Number: [id number] Exam Date: 11/14/2024 09:56 Report Date: 11/14/2024 [...] and patient body habitus. Impression dictated by: Karena Burgess Jr.OZack 11/14/2024 10:06 AM Dictation Location: [place] [address] Electronically authenticated by: [id number] Y Date: 11/14/2024 10:06 Dictated By: Mark Anthony Conner M.D. Signed By: 11/14/24 1009 DD/ 1006 TD/TT: Quality Assurance Analyst: [facility] Radiology, Radiologist, - 11/14/2024 [place] [address] Ultrasound Report Signed Patient: JAVID PRASAD MR#: [id number] : 1990 Acct:[id number] Age/Sex: 33 / F ADM Date: 11/13/24 Loc: US Attending Dr: Miguel Hannon D.O. Ordering Physician: Miguel Hannon D.O. Date of Service: 11/13/24 Procedure(s): US OB incomplete anatomy Accession Number(s): [id number] cc: Miguel Hannon D.O.; ADEBAYO SOLARES D.O. The [place] [id number] Patient Name: JAVID PRASAD MRN: [facility]:[id number] date: 1990 Sex: F Assigned Patient Location: US Current Patient Location: Accession/Order Number: [id number] Exam Date: 11/14/2024 09:56 Report Date: 11/14/2024 [...] and patient body habitus. Impression dictated by: Karena Burgess Jr.OZack 11/14/2024 10:06 AM Dictation Location: [place] [address] Electronically authenticated by: [id number] Y Date: 11/14/2024 10:06 Dictated By: Mark Anthony Conner M.D. Signed By: 11/14/24 1009 DD/ 1006 TD/TT: Quality Assurance Analyst: [facility] Radiology Study observation (narrative) [facility] US OB INCOMPLETE ANATOMYOrde red By: Radiologist Radiology on 11-14-2024 [facility] Work Phone: GLUCOSE TOLERANCE 3 HOURon 0 11-10-2024 GLUCOSE TOLERANCE 3 HOUR High mg/dL [facility] Comment on above: GLU FAST 113H (<95) Col: 11/10/24 0845 GLU 1HR 208H (<180) Col: 11/10/24 0945 GLU 2HR 152 (<155) Col: 11/10/24 1052 GLU 3HR 81 (<140) Col: 11/10/24 1147 Interpretation and review of laboratory results Abnormal [facility] Urinalysis macro (dipstick) panel (U)on 11-03-2024 Bilirubin, UA Negative Negative - 4(70) +++ mg/dL [facility] Blood, UA Negative Negative - 50 Osmin/mcL [facility] Clarity, UA Clear [facility] re Color, UA Yellow [facility] [employer] Glucose, UA Positive Negative - 1999(110) ++++ mg/dL [facility] Interpretation and review of laboratory results Abnormal [facility] Ketones, UA Negative Negative - 160(16) ++++ mg/dL [facility] Leukocytes, UA Negative Negative - 500+++ Oumou/mcL [facility] Nitrite, UA Negative Negative - Positive [facility] pH, UA 7 5 - 9 [facility] Protein, UA Trace Negative - 1999(20) ++++ mg/dL [facility] Spec Grav, UA 1.02 1 - 1.03 [facility] Urobilinogen, UA 1.0 0.2 - 12 [facility] OB GROWTHon 10-31-[address] [address] Ultrasound Report Signed Patient: JAVID PRASAD MR#: [id number] : 1990 Acct:[id number] Age/Sex: 33 / F ADM Date: 10/30/24 Loc: US Attending Dr: Maureen Feliz Ordering Physician: Maureen Feliz Date of Service: 10/30/24 Procedure(s): US OB growth Accession Number(s): [id number] cc: Maureen Feliz; ADEBAYO SOLARES D.O. [place] [address] Patient Name: JAVID PRASAD MRN: [facility]:[id number] date: 1990 Sex: F Assigned Patient Location: US Current Patient Location: Accession/Order Number: [id number] Exam Date: 10/31/2024 07:37 Report Date: 10/31/2024 [...] Crow M.D. 10/31/2024 7:41 AM Dictation Location: [place] [address] Electronically authenticated by: [id number] Y Date: 10/31/2024 07:41 Dictated By: Katarzyna Crow M.D. Signed By: 10/31/24 0744 DD/ 0741 TD/TT: Quality Assurance Analyst: [facility] Radiology, Radiologist, - 10/31/[address] [address] Ultrasound Report Signed Patient: JAVID PRASAD MR#: [id number] : 1990 Acct:[id number] Age/Sex: 33 / F ADM Date: 10/30/24 Loc: US Attending Dr: Maureen Feliz Ordering Physician: Maureen Feliz Date of Service: 10/30/24 Procedure(s): US OB growth Accession Number(s): [id number] cc: Maureen Feliz; ADEBAYO SOLARES D.O. The [address] [address] Patient Name: JAVID PRASAD MRN: [facility]:[id number] date: 1990 Sex: F Assigned Patient Location: US Current Patient Location: Accession/Order Number: [id number] Exam Date: 10/31/2024 07:37 Report Date: 10/31/2024 [...] Crow M.D. 10/31/2024 7:41 AM Dictation Location: [place] [address] Electronically authenticated by: [id number] Y Date: 10/31/2024 07:41 Dictated By: Katarzyna Crow M.D. Signed By: 10/31/24 0744 DD/ 0741 TD/TT: Quality Assurance Analyst: [facility] Radiology Study observation (narrative) [facility] US OB GROWTHOrdered By: Layne ologist Radiology on 10-31-2024 [facility] Work Phone: Office Visiton 10-21-2024 Follow-up visit [id number] Javid Prasad 1990 F Date Provider Department Center 10/21/2024 MARIANA WALTER BEBETO [place] Family History Problem Relation Age of Onset Atrial fibrillation Mother Diabetes Father Kidney disease Father Heart attack Maternal Grandmother Family Status - Relation Status Age at Mother Alive Father Alive Maternal Grandmother Level of Service:05037 [place] OFFICE/OUTPATIENT ESTABLISHED LOW MDM 20 MIN Normal [facility] Urinalysis macro (dipstick) panel (U)on 10-21-2024 Bilirubin, UA Negative Negative - 4(70) +++ mg/dL [facility] Blood, UA Negative Negative - 50 Osmin/mcL [facility] Clarity, UA Clear [facility] [facility] re Color, UA Yellow [facility] SIM Digital[employer] Glucose, UA Negative Negative - 1999(110) ++++ mg/dL [facility] Interpretation and review of laboratory results Abnormal [facility] Ketones, UA Positive Negative - 160(16) ++++ mg/dL [facility] Leukocytes, UA Negative Negative - 500+++ Oumou/mcL [facility] Nitrite, UA Negative Negative - Positive [facility] pH, UA 5.5 5 - 9 [facility] Annex[facility] e Protein, UA Negative Negative - 1999(20) ++++ mg/dL [facility] Spec Grav, UA 1.02 1 - 1.03 [facility] Urobilinogen, UA 1.0 0.2 - 12 mg/dL [facility] 14+ [...] II, MD, PHD at 18-Sep-2024 08:49:14 AM [facility] Normal Not Available Comment on above: Order Comment: US OB ANATOMY SINGLE W US OB CERVICAL LENGTH Estimated Date of Delivery: 01/17/25 Gestational Age as of 08/19/2024: 18w3d Urinalysis macro (dipstick) panel (U)on 09-16-2024 Bilirubin, UA Negative Negative - 4(70) +++ mg/dL [facility] Blood, UA Negative Negative - 50 Osmin/mcL [facility] Clarity, UA Clear [facility] re Color, UA Yellow [facility] e Glucose, UA Negative Negative - 1999(110) ++++ mg/dL [facility] Interpretation and review of laboratory results Normal [facility] Ketones, UA Negative Negative - 160(16) ++++ mg/dL [facility] Leukocytes, UA Negative Negative - 500+++ Oumou/mcL [facility] Nitrite, UA Negative Negative - Positive [facility] pH, UA 6 5 - 9 [facility] e Protein, UA Negative Negative - 1999(20) ++++ mg/dL [facility] Spec Grav, UA 1.025 1 - 1.03 [facility] Urobilinogen, UA 0.2 0.2 - 12 mg/dL [facility] Healthcar e GLUCOSE TOLERANCE 3 HOURon 0 08-23-2024 GLUCOSE TOLERANCE 3 HOUR High mg/dL [facility] Comment on above: GLU FAST 110H (<95) Col: 08/23/24 0738 GLU 1HR 173 (<180) Col: 08/23/24 0839 GLU 2HR 131 (<155) Col: 08/23/24 0939 GLU 3HR 67 (<140) Col: 08/23/24 1040 Interpretation and review of laboratory results Abnormal [facility] CLINISYNC [facility] e RECURRENT VAGINITIS (HTRX)on 08-20-[address] [facility] ATOPOBIUM VAGINAE Not detected [facility] BVAB 2,3 (BACTERIAL VAGINOSIS ASSOCIATED BACTERIA 2, 3); MOBILUNCUS SPP 0 [facility] BVAB 2,3 (BACTERIAL VAGINOSIS ASSOCIATED BACTERIA 2, 3); MOBILUNCUS SPP Not detected [facility] AGUSTIN ALBICANS, PARAPSILOSIS, TROPICALIS 0 [facility] AGUSTIN ALBICANS, PARAPSILOSIS, TROPICALIS Not detected [facility] AGUSTIN GLABRATA 0 [facility] AGUSTIN GLABRATA Not detected [facility] AGUSTIN KRUSEI Not detected [facility] CHLAMYDIA TRACHOMATIS 0 [facility] CHLAMYDIA TRACHOMATIS Not detected N [facility] GARDNERELLA VAGINALIS 0 [facility] GARDNERELLA VAGINALIS Not detected N [facility] MEGASPHAERA (TYPES 1, 2) 0 [facility] MEGASPHAERA (TYPES 1, 2) Not detected [facility] MYCOPLASMA GENITALIUM 0 [facility] MYCOPLASMA GENITALIUM Not detected N [facility] NEISSERIA GONORRHOEAE 0 [facility] NEISSERIA GONORRHOEAE Not detected N [facility] TRICHOMONAS VAGINALIS 0 [facility] TRICHOMONAS VAGINALIS Not detected N [facility] GLUCOSE 1 HOURon 08-19-2024 Glucose [Mass/Vol] 182 mg/dL High NINF - 13 0 mg/dL [facility] Interpretation and review of laboratory results Abnormal [facility] Healthcar e Urinalysis macro (dipstick) panel (U)on 08-19-2024 Bilirubin, UA Positive Negative - 4(70) +++ mg/dL [facility] Comment on above: small Blood, UA Negative Negative - 50 Osmin/mcL [facility] Clarity, UA Clear [facility] re Color, UA Yellow [facility] Health[facility] e Glucose, UA Negative Negative - 1999(110) ++++ mg/dL [facility] Interpretation and review of laboratory results Abnormal [facility] Ketones, UA Positive Negative - 160(16) ++++ mg/dL [facility] Comment on above: 15 Leukocytes, UA Negative Negative - 500+++ Oumou/mcL [facility] Nitrite, UA Negative Negative - Positive [facility] pH, UA 6 5 - 9 [facility] Protein, UA Positive Negative - 1999(20) ++++ mg/dL [facility] Comment on above: 30 Spec Grav, UA 1.025 1 - 1.03 [facility] Urobilinogen, UA 0.2 0.2 - 12 mg/dL [facility] Urinalysis macro (dipstick) panel (U)on 07-22-2024 Bilirubin, UA Negative Negative - 4(70) +++ mg/dL [facility] Blood, UA Negative Negative - 50 Osmin/mcL [facility] Clarity, UA Clear [facility] Healthca re Color, UA Yellow [facility] Healthcar e Glucose, UA Negative Negative - 1999(110) ++++ mg/dL [facility] Interpretation and review of laboratory results Abnormal [facility] Ketones, UA Positive Negative - 160(16) ++++ mg/dL [facility] Comment on above: trace Leukocytes, UA Negative Negative - 500+++ Oumou/mcL [facility] Nitrite, UA Negative Negative - Positive [facility] pH, UA 6.5 5 - 9 [facility] Protein, UA Trace Negative - 2000(20) ++++ mg/dL [facility] Spec Grav, UA 1.025 1 - 1.03 [facility] Urobilinogen, UA 0.2 0.2 - 12 mg/dL [facility] Healthcar e CBC and differentialon 07-15 Hematocrit (Bld) [Volume fraction] 42 % 36 - 46 % [facility] Hemoglobin (Bld) [Mass/Vol] 13.6 g/dL 12.0 - 16.0 g/dL [facility] Platelets (Bld) [#/Vol] 392 10*3/uL 150 - 399 10*3/uL [facility] WBC (Bld) [#/Vol] 9.2 10*3/mL 3.3 - 10.0 10*3/mL [facility] CBC without diffon 5 Rbc Mcv (Fl) By Automated Count 85.4 [facility] Drug Screen, Urineon 025 Amphetamine/Methamphe tamine Negative [facility] Barbiturates Negative [facility] Benzodiazepines Negative [facility] Cocaine Metabolite Negative [facility] Methadone Negative [facility] Opiates Negative [facility] Oxycodone Negative [facility] Phencyclidine Negative [facility] Thc Marijuana, Urine Negative [facility] Glucose 1h post 50g loadon 0 07-15-2024 Glucose, 1Hr PP 182 [facility] HBV surface Ag IA Qlon 07-15 Hepatitis B Surface Antigen Negative [facility] HIV 1+2 Ab+HIV1 p24 Ag IA Ql on 07-15-2024 HIV 1&2 AB/AG Non-Reactive [facility] Laboratory - Chemistry and C hemistry - challengeon 07-15-2024 Glucose [Mass/Vol] 111 mg/dL [facility] - Hematology and Cell countson 07-15-2024 HbA1c (Bld) [Mass fraction] 5.5 % 4.0 - 6.0 % [facility] Comment on above: ADA RECOMMENDED LIMI T 4.0 - 6.0 ADA THERAPEUTIC TARGET < 7.0 ACTION SUGGESTED > 7.0 MLR HEMOGLOBIN A1Con 025 CLINISYNC No Panel Informationon 07-15 [facility] Health[facility] e Rubella IGG immune statuson 07-15-2024 Rubella immune IgG 1.77 [facility] T. pallidum IgG+IgM IA Ql (S )on 07-15-2024 Syphilis Non-Reactive [facility] Type and screenon 07-15-2024 Abo/Rh(D) Positive [facility] US OB TRANSVAGINALon 025 US OB [...] II, MD, PHD at 20-Jun-2024 08:24:08 AM [facility] Normal Not Available Comment on above: Order Comment: US OB TRANSVAGINAL No LMP recorded. [facility] PREG QUANT HCGon 025 HCG QUANTITATIVE 2792 mIU/mL [facility] Comment on above: 5-50 0.2-1 WEEK 50-500 1-2 WEEKS 100-5,000 2-3 WEEKS 500-10,000 3-4 WEEKS 1,000-50,000 4-5 WEEKS 10,000-100,000 5-6 WEEKS 15,000-200,000 6-8 WEEKS 10,000-100,000 2-3 MONTHS [facility] Healthcar e TBH PREG QUANT HCGon 025 HCG QUANTITATIVE 713 mIU/mL [facility] Comment on above: 5-50 0.2-1 WEEK 50-500 1-2 WEEKS 100-5,000 2-3 WEEKS 500-10,000 3-4 WEEKS 1,000-50,000 4-5 WEEKS 10,000-100,000 5-6 WEEKS 15,000-200,000 6-8 WEEKS 10,000-100,000 2-3 [facility] ALL CBC WITH AUTO DIFFon BASOPHILS ABSOLUTE AUTO 0.1 [facility] Basophils/100 WBC (Bld) 0.8 % 0.2 - 2.0 % [facility] Eosinophils/100 WBC (Bld) 3.5 % 0.9 - 7.0 % [facility] Erythrocyte distribution width (RBC) [Ratio] 13.2 % 11.0 - 15.0 % [facility] Hematocrit (Bld) [Volume fraction] 41.9 % 36.0 - 48.0 % [facility] Health[facility] e Hemoglobin (Bld) [Mass/Vol] 13.8 g/dL 12.0 - 16.0 g/dL [facility] IMMATURE GRANULOCYTES ABS AUTO 0.02 [facility] Immature granulocytes/100 WBC (Bld) 0.3 % 0.0 - 0.5 % [facility] LYMPHOCYTES ABSOLUTE AUTO 2.5 [facility] Lymphocytes/100 WBC (Bld) 31.1 % 20.5 - 60.0 % [facility] MCH (RBC) [Entitic mass] 27.7 pg 26.7 - 34.0 pg [facility] MCHC (RBC) [Mass/Vol] 32.9 g/dL 29.9 - 35.2 g/dL [facility] MCV (RBC) [Entitic vol] 84 fL 81.0 - 99.0 fL [facility] MONOCYTES ABSOLUTE AUTO 0.5 [facility] Monocytes/100 WBC (Bld) 6.6 % 1.7 - 12.0 % [facility] NEUTROPHILS ABSOLUTE AUTO 4.6 [facility] Neutrophils/100 WBC (Bld) 57.7 % 43.0 - 75.0 % [facility] Platelet mean volume (Bld) [Entitic vol] 9.6 fL 9.5 - 13.5 fL [facility] are [facility]H EO # 0.3 [facility] PLT 429 [facility] RBC 4.99 [facility] WBC 8 [facility] CLINIS[facility]NC [facility] ALL CBC WITH AUTO DIFFon BASOPHILS ABSOLUTE AUTO 0.1 [facility] Basophils/100 WBC (Bld) 0.7 % 0.2 - 2.0 % [facility] Eosinophils/100 WBC (Bld) 3.7 % 0.9 - 7.0 % [facility] Erythrocyte distribution width (RBC) [Ratio] 13.2 % 11.0 - 15.0 % [facility] Hematocrit (Bld) [Volume fraction] 42.2 % 36.0 - 48.0 % [facility] Hemoglobin (Bld) [Mass/Vol] 14 g/dL 12.0 - 16.0 g/dL [facility] IMMATURE GRANULOCYTES ABS AUTO 0.01 [facility] Immature granulocytes/100 WBC (Bld) 0.1 % 0.0 - 0.5 % [facility] Healthcare LYMPHOCYTES ABSOLUTE AUTO 2.6 [facility] Lymphocytes/100 WBC (Bld) 37.7 % 20.5 - 60.0 % [facility] MCH (RBC) [Entitic mass] 28.1 pg 26.7 - 34.0 pg [facility] MCHC (RBC) [Mass/Vol] 33.2 g/dL 29.9 - 35.2 g/dL [facility] MCV (RBC) [Entitic vol] 84.6 fL [...] Healthcar e Office Visiton 12-25-2023 Follow-up visit [id number] Javid Prasad 1990 F Date Provider Department Center 12/25/2023 [facility] Family History Problem Relation Age of Onset Atrial fibrillation Mother Diabetes Father Kidney disease Father Heart attack Maternal Grandmother Family Status - Relation Status Age at Mother Father Maternal Grandmother Level of Service:89526 [place] OFFICE/OUTPATIENT ESTABLISHED LOW MDM 20 MIN Normal [facility] Cytology Cervical or vaginal smear [...] She can be sleepy during the day. [place] Sleepiness Scale score: 12. She is sleepy [...] included)... Normal [facility] CT HEAD WO CONon 12-21-2021 CT [...] CARLOS GALE Date: 2021-12-21 07:[address] TEMPORAL BONES WO CONon 0 12-21-2021 [...] foramen are normal. Visualized paranasal sinuses clear. Half Backer spaces normal. Orbital contents unremarkable. Posterior fossa structures normal. IMPRESSION: Normal CT of the temporal bones. Electronically authenticated by: LOUIS BRAY Date: 2021-12-21 16:11 Normal The Comprehensive Metabolic Empo n 05-10-2021 Albumin [Mass/Vol] 4.1 g/dL Normal 3.2-5.5 [facility] Comment on above: Performed By: #### E BS LIPID, EBS A1C, EBS CMP #### [facility] [address] [place] [id number] [facility] Albumin/Globulin [Mass ratio] 1.3 {ratio} Normal [facility] Comment on above: Performed By: #### E BS LIPID, EBS A1C, EBS CMP #### [facility] [address] [place] [address] [place] ALP [Catalytic activity/Vol] 77 U/L Normal 32-92 [facility] Comment on above: Performed By: #### E BS LIPID, EBS A1C, EBS CMP #### [facility] [address] [place] [id number] [place] ALT [Catalytic activity/Vol] 19 U/L Normal 10-60 [facility] Comment on above: Performed By: #### E BS LIPID, EBS A1C, EBS CMP #### [facility] [address] [place] [address] [place] AST [Catalytic activity/Vol] 18 U/L Normal 10-42 [facility] Comment on above: Performed By: #### E BS LIPID, EBS A1C, EBS CMP #### [facility] [address] [place] [address] [place] Bilirubin [Mass/Vol] 0.3 mg/dL Normal 0.3-1.2 [facility] Comment on above: Performed By: #### E BS LIPID, EBS A1C, EBS CMP #### [facility] [address] [place] [address] [place] Calcium [Mass/Vol] 9.2 mg/dL Normal 8.2-10.2 [facility] Comment on above: Performed By: #### E BS LIPID, EBS A1C, EBS CMP #### [facility] [address] [place] [id number] [place] Chloride [Moles/Vol] 104 mmol/L Normal 95-114 [facility] Comment on above: Performed By: #### E BS LIPID, EBS A1C, EBS CMP #### [facility] [address] [place] [address] [place] CO2 [Moles/Vol] 24.1 mmol/L Normal 22.0-30.0 [facility] Comment on above: Performed By: #### E BS LIPID, EBS A1C, EBS CMP #### [facility] [address] [place] [id number] [place] Creatinine [Mass/Vol] 0.69 mg/dL Normal 0.44-1.[address] [facility] Comment on above: Performed By: #### E BS LIPID, EBS A1C, EBS CMP #### [facility] [address] [place] [address] [place] Estimated GFR ( Liz > 60 Normal [facility] Comment on above: Result Comment: GFR estimated reference range: According to KDOQI guidelines, <60 ml/min/1.73m2 is sufficient to diagnose a patient with chronic kidney disease. Performed By: #### E BS LIPID, EBS A1C, EBS CMP #### [facility] [address] [place] [address] [place] Estimated GFR (Non- Am > 60 Normal [facility] Comment on above: Performed By: #### E BS LIPID, EBS A1C, EBS CMP #### [facility] [address] [place] [address] [place] Globulin (S) [Mass/Vol] 3.1 g/dL Normal [facility] Comment on above: Performed By: #### E BS LIPID, EBS A1C, EBS CMP #### [facility] [address] Glucose [Mass/Vol] 106 mg/dL High 70-100 [facility] Comment on above: Result Comment: ADA recommended reference range Performed By: #### E BS LIPID, EBS A1C, EBS CMP #### [address] Potassium [Moles/Vol] 4.0 mmol/L Normal 3.5-5.[address] [facility] Comment on above: Performed By: #### E BS LIPID, EBS A1C, EBS CMP #### [place] [address] [place] Protein [Mass/Vol] 7.2 g/dL Normal 6.1-7.9 [facility] Comment on above: Performed By: #### E BS LIPID, EBS A1C, EBS CMP #### [facility] [address] [place] [address] [place] Sodium [Moles/Vol] 137 mmol/L Normal 136-146 [facility] Comment on above: Performed By: #### E BS LIPID, EBS A1C, EBS CMP #### [facility] [address] [place] [address] [place] Urea nitrogen [Mass/Vol] 10 mg/dL Normal 9-23 [facility] Comment on above: Performed By: #### E BS LIPID, EBS A1C, EBS CMP #### [facility] [address] [id number] [facility] EBS A1C with Estimated Ave Primo hayes 05-10-2021 Glucose [Mass/Vol] 111 mg/dL Normal [facility] Comment on above: Result Comment: PERF ORMED BY: [place] [address] PATHOLOGIST POSTULANT JERRY RAMSEY M.D. Performed By: #### E BS LIPID, EBS A1C, EBS CMP #### [facility] [address] [id number] [facility] HbA1c (Bld) [Mass fraction] 5.5 % Normal 4.3-5.6 [facility] Comment on above: Result Comment: Incr eased risk for diabetes: 5.7 - 6.4 diabetes: >6.4 glycemic control for adults with diabetes: <7.0 Performed By: #### E BS LIPID, EBS A1C, EBS CMP #### [facility] [address] [id number] [facility] Lipid Profileon 05-10-2021 Cholesterol [Mass/Vol] 202 mg/dL High 140-200 [facility] Comment on above: Result Comment: Chol less than 200 mg/dl low risk Chol 201-239 mg/dl borderline risk Chol 240 mg/dl and greater high risk Performed By: #### E BS LIPID, EBS A1C, EBS CMP #### [facility] [address] [place] [id number] [facility] Cholesterol in HDL [Mass/Vol] 37 mg/dL Normal 35-85 [facility] Comment on above: Result Comment: HDL CHOL ATP-III CLASSIFICATION Cardiovascular Risk HDL > or equal to 60 mg/dL LOW HDL < 40 mg/dL HIGH Performed By: #### E BS LIPID, EBS A1C, EBS CMP #### [facility] [address] Cholesterol.total/Cho lesterol in HDL [Mass ratio] 5.5 {ratio} Normal <5.0 [facility] Comment on above: Result Comment: PERF ORMED BY: [facility] [address] [place] [address] PATHOLOGIST POSTULANT JERRY RAMSEY M.D. Performed By: #### E BS LIPID, EBS A1C, EBS CMP #### [facility] [address] [place] [address] [place] LDL Cholesterol,Calculate d 125 mg/dL High 0-100 [facility] Comment on above: Result Comment: LDL ATP III CLASSIFICATION LDL less than 100 mg/dL Optimal LDL 100-129 mg/dL Near or above optimal LDL 130-159 mg/dL Borderline high LDL 160-189 mg/dL High LDL greater than 189 mg/dL Very high Performed By: #### E BS LIPID, EBS A1C, EBS CMP #### [facility] [address] Triglyceride w/Reflex 199 mg/dL High 35-[address] [facility] Comment on above: Result Comment: TRIG ATP III CLASSIFICATION TRIG less than 150 mg/dL Normal TRIG 150-199 mg/dL Borderline high TRIG 200-500 mg/dL High TRIG greater than 500 mg/dL Very high Standard traceable to the Center for Disease Conrtrol and Prevention (CDC) test method. Performed By: #### E BS LIPID, EBS A1C, EBS CMP #### [facility] [address] [id number] [facility] VLDL CHOLESTEROL 39 mg/dL Normal [facility] Comment on above: Performed By: #### E BS LIPID, EBS A1C, EBS CMP #### [facility] [address] [place] [id number] [facility] Vital Signs Date Time Vital Sign Value Performing Clinician Ronaldo coello 12-23-2024 11:38-0400 Body mass index (BMI) [Ratio] 40.01 kg/m2 Miguel Riddhi DO Work Phone: [facility] 12-23-2024 11:38-0400 Body weight 133.81 kg gantto DO Work Phone: [facility] 12-23-2024 11:38-0400 Diastolic blood pressure 70 mm[Hg] Miguel Riddhi DO Work Phone: [facility] 12-23-2024 11:38-0400 Systolic blood pressure 120 mm[Hg] Miguel Riddhi DO Work Phone: [facility] 12-16-2024 13:08-0400 Body mass index (BMI) [Ratio] 39.98 kg/m2 Maureen Feliz PA Work Phone: [facility] 12-16-2024 13:08-0400 Body weight 133.72 kg Maureen Sheridaney PA Work Phone: [facility] 12-16-2024 13:08-0400 Diastolic blood pressure 70 mm[Hg] Maureen Sheridaney PA Work Phone: [facility] 12-16-2024 13:08-0400 Systolic blood pressure 120 mm[Hg] Maureen Sheridaney PA Work Phone: [facility] 12-02-2024 08:57-0400 Body mass index (BMI) [Ratio] 39.3 kg/m2 Miguel Riddhi DO Work Phone: [facility] 12-02-2024 08:57-0400 Body weight 131.45 kg Miguel Riddhi DO Work Phone: [facility] 12-02-2024 08:57-0400 Diastolic blood pressure 76 mm[Hg] Miguel Riddhi DO Work Phone: [facility] 12-02-2024 08:57-0400 Systolic blood pressure 114 mm[Hg] Miguel Riddhi DO Work Phone: [facility] 11-28-2024 11:44-0400 Body height 182.9 cm Saul Granados MD Work Phone: [facility] 11-28-2024 11:44-0400 Body mass index (BMI) [Ratio] 38.9 kg/m2 Saul Granados MD Work Phone: [facility] 11-28-2024 11:44-0400 Body weight 130.09 kg Saul Granados MD Work Phone: [facility] 11-28-2024 11:44-0400 Diastolic blood pressure 60 mm[Hg] Salu Granados MD Work Phone: [facility] 11-28-2024 11:44-0400 Heart rate 96 /min Saul Granados MD Work Phone: [facility] 11-28-2024 11:44-0400 Systolic blood pressure 114 mm[Hg] Saul Granados MD Work Phone: [facility] 11-18-2024 09:04-0400 Body mass index (BMI) [Ratio] 38.52 kg/m2 Miguel Riddhi DO Work Phone: [facility] 11-18-2024 09:04-0400 Body weight 128.82 kg Miguel Riddhi DO Work Phone: [facility] 11-18-2024 09:04-0400 Diastolic blood pressure 70 mm[Hg] Miguel Riddhi DO Work Phone: [facility] 11-18-2024 09:04-0400 Systolic blood pressure 112 mm[Hg] Miguel Riddhi DO Work Phone: [facility] 11-03-2024 15:07-0400 Body mass index (BMI) [Ratio] 38.63 kg/m2 Miguel Riddhi DO Work Phone: [facility] 11-03-2024 15:07-0400 Body weight 129.18 kg Miguel Riddhi DO Work Phone: [facility] 11-03-2024 15:07-0400 Diastolic blood pressure 74 mm[Hg] Miguel Riddhi DO Work Phone: [facility] 11-03-2024 15:07-0400 Systolic blood pressure 110 mm[Hg] Miguel Riddhi DO Work Phone: [facility] 10-21-2024 08:41-0400 Body mass index (BMI) [Ratio] 38.44 kg/m2 Maureen SINGLETON Work Phone: [facility] 10-21-2024 08:41-0400 Body weight 128.55 kg Maureen SINGLETON Work Phone: [facility] 10-21-2024 08:41-0400 Diastolic blood pressure 78 mm[Hg] Maureen Feliz PA Work Phone: [facility] 10-21-2024 08:41-0400 Systolic blood pressure 124 mm[Hg] Maureen Paula PA Work Phone: [facility] 09-16-2024 09:49-0400 Body mass index (BMI) [Ratio] 37.57 kg/m2 Miguel Riddhi DO Work Phone: [facility] 09-16-2024 09:49-0400 Body weight 125.65 kg Miguel Riddhi DO Work Phone: [facility] 09-16-2024 09:49-0400 Diastolic blood pressure 76 mm[Hg] Miguel Riddhi DO Work Phone: [facility] 09-16-2024 09:49-0400 Systolic blood pressure 126 mm[Hg] Miguel Riddhi DO Work Phone: [facility] 08-19-2024 14:52-0400 Body mass index (BMI) [Ratio] 37.57 kg/m2 Maureen Feliz PA Work Phone: [facility] 08-19-2024 14:52-0400 Body weight 125.65 kg Maureen Feliz PA Work Phone: [facility] 08-19-2024 14:52-0400 Diastolic blood pressure 78 mm[Hg] Maureen Feliz PA Work Phone: [facility] 08-19-2024 14:52-0400 Systolic blood pressure 128 mm[Hg] Maureen Feliz PA Work Phone: [facility] 07-22-2024 09:47-0400 Body mass index (BMI) [Ratio] 37.3 kg/m2 Miguel Riddhi DO Work Phone: [facility] 07-22-2024 09:47-0400 Body weight 124.74 kg Miguel Riddhi DO Work Phone: [facility] 07-22-2024 09:47-0400 Diastolic blood pressure 86 mm[Hg] Miguel Riddhi DO Work Phone: [facility] 07-22-2024 09:47-0400 Systolic blood pressure 130 mm[Hg] Miguel Riddhi DO Work Phone: [facility] 02-19-2024 14:07-0500 Body mass index (BMI) [Ratio] 37.95 kg/m2 Maureen Hallstead PA Work Phone: [facility] 02-19-2024 14:07-0500 Body weight 126.92 kg Maureen Hallstead PA Work Phone: [facility] 02-19-2024 14:07-0500 Diastolic blood pressure 74 mm[Hg] Maureen Hallstead PA Work Phone: [facility] 02-19-2024 14:07-0500 Systolic blood pressure 114 mm[Hg] Maureen Paula PA Work Phone: [facility] 01-16-2024 16:38-0400 Body height 182.9 cm Miguel Riddhi DO Work Phone: [facility] 01-16-2024 16:38-0400 Body mass index (BMI) [Ratio] 37.57 kg/m2 Miguel Riddhi DO Work Phone: [facility] 01-16-2024 16:38-0400 Body weight 125.65 kg Miguel Riddhi DO Work Phone: [facility] 01-16-2024 16:38-0400 Diastolic blood pressure 80 mm[Hg] Miguel Riddhi DO Work Phone: [facility] 01-16-2024 16:38-0400 Systolic blood pressure 124 mm[Hg] Miguel Riddhi DO Work Phone: [facility] 12-25-2023 10:12-0400 Body height 182.9 cm Miguel Riddhi DO Work Phone: [facility] 12-25-2023 10:12-0400 Body mass index (BMI) [Ratio] 37.57 kg/m2 Miguel Riddhi DO Work Phone: [facility] 12-25-2023 10:12-0400 Body weight 125.65 kg Miguel Riddhi DO Work Phone: [facility] 12-25-2023 10:120400 Diastolic blood pressure 84 mm[Hg] Miguel Riddhi DO Work Phone: [facility] 12-25-2023 10:12-0400 Systolic blood pressure 122 mm[Hg] Miguel Riddhi DO Work Phone: [facility] Encounters Encounter Date Encounter Type Care Provider Facility Start: 12-23-2024 End: 12-23-2024 Bamboo flowsheet Miguel Riddhi DO Work Phone: [facility] Start: 12-23-2024 End: 12-23-2024 Bamboo flowsheet Miguel Riddhi DO Work Phone: [facility] Start: 12-23-2024 End: 12-23-2024 flow sheet Miguel Riddhi DO Work Phone: [facility] Comment on above: 36 weeks gestation o f ([facility]); Third trimester ([facility]); Gestational diabetes mellitus (GDM), antepartum, gestational diabetes method of control unspecified ([facility]) Start: 12-19-2024 End: 12-19-2024 Clinisync Result Encounter Miguel Riddhi DO Work Phone: [facility] Unsolicited Start: 12-19-2024 End: 12-19-2024 Clinisync Result Encounter Miguel Riddhi DO Work Phone: [facility] Unsolicited Start: 12-18-2024 End: 12-18-2024 Telephone encounter Tessie Carranza RN [facility] Start: 12-18-2024 End: 12-18-2024 ambulatory MAGNUS THOMASON [facility] Start: 12-16-2024 End: 12-16-2024 Bamboo flowsheet Maureen SINGLETON Work Phone: [facility] Start: 12-16-2024 End: 12-16-2024 Bamboo flowsheet Maureen SINGLETON Work Phone: [facility] Start: 12-16-2024 End: 12-16-2024 flow sheet Maureen SINGLETON Work Phone: [facility] Comment on above: 35 weeks gestation o f ([facility]); Third trimester ([facility]); Gestational diabetes mellitus (GDM), antepartum, gestational diabetes method of control unspecified ([facility]) Start: 12-16-2024 End: 12-16-2024 ambulatory MAUREEN FELIZ Not Available Start: 12-12-2024 End: 12-12-2024 Clinisync Result Encounter Miguel Riddhi DO Work Phone: [facility] Unsolicited Start: 12-12-2024 End: 12-12-2024 Clinisync Result Encounter Miguel Riddhi DO Work Phone: [facility] Unsolicited Start: 12-11-2024 End: 12-11-2024 ambulatory [facility] Start: 12-09-2024 End: 12-09-2024 Orders Only Mary Scanlon PA-C Work Phone: [facility] - Labor Start: 12-06-2024 End: 12-06-2024 Clinisync Result Encounter Miguel Riddhi DO Work Phone: [facility] Unsolicited Start: 12-06-2024 End: 12-06-2024 Clinisync Result Encounter Miguel Riddhi DO Work Phone: [facility] Unsolicited Start: 12-03-2024 End: 12-03-2024 Orders Only Magnus DIAZ Work Phone: [facility] Start: 12-02-2024 End: 12-02-2024 Bamboo flowsheet Miguel Riddhi DO Work Phone: [facility] Start: 12-02-2024 End: 12-02-2024 Bamboo flowsheet Miguel Riddhi DO Work Phone: [facility] Start: 12-02-2024 End: 12-02-2024 flow sheet Miguel Riddhi DO Work Phone: [facility] Comment on above: Third trimester preg shayla ([facility]); 33 weeks gestation of ([facility]); Gestational diabetes mellitus (GDM), antepartum, gestational diabetes method of control unspecified ([facility]) Start: 12-02-2024 End: 12-02-2024 ambulatory MIGUEL MATTSONO Not Available Start: 11-28-2024 End: 11-28-2024 Office outpatient new 45 minutes Saul Granados MD Work Phone: [facility] Comment on above: Insulin controlled g estational diabetes mellitus (GDM) in third trimester (Primary Dx); Prediabetes in mother during ; Family history of type 2 diabetes mellitus; Obesity affecting , antepartum, unspecified obesity type; 32 weeks gestation of Start: 11-28-2024 End: 11-28-2024 ambulatory [facility] Start: 11-27-2024 End: 11-27-2024 Clinisync Result Encounter Miguel Riddhi DO Work Phone: [facility] Unsolicited Start: 11-27-2024 End: 11-27-2024 Clinisync Result Encounter Miguel Riddhi DO Work Phone: [facility] Unsolicited Start: 11-26-2024 End: 11-26-2024 Documentation procedure Yojana Diehl RN [facility] Start: 11-26-2024 End: 11-26-2024 Telephone encounter Yojana Diehl RN [facility] Start: 11-25-2024 End: 11-25-2024 Telephone encounter Naomie LUQUE Work Phone: [facility] Start: 11-24-2024 End: 11-24-2024 Chart abstracting Scanning Provider External [facility] Start: 11-20-2024 End: 11-20-2024 ambulatory NAOMIE CHAHAL [facility] Start: 11-18-2024 End: 11-18-2024 Bamboo flowsheet Miguel Riddhi DO Work Phone: [facility] Start: 11-18-2024 End: 11-18-2024 Bamboo flowsheet Miguel Riddhi DO Work Phone: [facility] Start: 11-18-2024 End: 11-18-2024 ambulatory MIGUEL RIDDHI Not Available Start: 11-18-2024 End: 11-18-2024 flow sheet Miguel Riddhi DO Work Phone: [facility] Comment on above: Third trimester preg shayla ([facility]); 31 weeks gestation of ([facility]); Gestational diabetes mellitus (GDM), antepartum, gestational diabetes method of control unspecified ([facility]) Start: 11-14-2024 End: 11-14-2024 Clinisync Result Encounter Miguel Riddhi DO Work Phone: [facility] Unsolicited Start: 11-14-2024 End: 11-14-2024 Clinisync Result Encounter Miguel Riddhi DO Work Phone: [facility] Unsolicited Start: 11-13-2024 End: 11-13-2024 Chart abstracting Generic External Data Provider [facility] Start: 11-12-2024 ambulatory VIRAL ALLRED [facility] Start: 11-10-2024 End: 11-10-2024 Clinisync Result Encounter Miguel Riddhi DO Work Phone: [facility] Unsolicited Start: 11-10-2024 End: 11-10-2024 Clinisync Result Encounter Miguel Riddhi DO Work Phone: [facility] Unsolicited Start: 11-03-2024 End: 11-03-2024 flow sheet Miguel Riddhi DO Work Phone: [facility] Comment on above: 29 weeks gestation o f ([facility]); Third trimester ([facility]) Start: 11-03-2024 End: 11-03-2024 ambulatory MIGUEL RIDDHI Not Available Start: 11-03-2024 End: 11-03-2024 Bamboo flowsheet Miguel Riddhi DO Work Phone: [facility] Start: 11-03-2024 End: 11-03-2024 Bamboo flowsheet Miguel Riddhi DO Work Phone: [facility] Start: 10-31-2024 End: 10-31-2024 Clinisync Result Encounter Maureen SINGLETON Work Phone: [facility] External Department Unsolicited Start: 10-31-2024 End: 10-31-2024 Clinisync Result Encounter Maureen SINGLETON Work Phone: [facility] External Department Unsolicited Start: 10-21-2024 End: 10-21-2024 Bamboo flowsheet Maureen SINGLETON Work Phone: [facility] Start: 10-21-2024 End: 10-21-2024 Bamboo flowsheet Maureen SINGLETON Work Phone: [facility] Start: 10-21-2024 End: 10-21-2024 ambulatory [facility] Start: 10-21-2024 End: 10-21-2024 flow sheet Maureen SINGLETON Work Phone: [facility] Comment on above: Size of fetus incons istent with dates in second trimester ([facility]) (Primary Dx); Second trimester ([facility]); 27 weeks gestation of ([facility]) Start: 10-21-2024 End: 10-21-2024 ambulatory MAUREEN FELIZ Not Available Start: 09-16-2024 End: 09-16-2024 ambulatory MIGUEL RIDDHI Not Available Start: 09-16-2024 End: 09-16-2024 flow sheet Miguel Riddhi DO Work Phone: [facility] Comment on above: Second trimester pre gnancy; 22 weeks gestation of ; Elevated glucose tolerance test Start: 09-16-2024 End: 09-16-2024 ambulatory MIGUEL RIDDHI Not Available Start: 09-02-2024 ambulatory [facility] Start: 08-23-2024 End: 08-23-2024 Clinisync Result Encounter [...] External Department Unsolicited Start: 06-26-2024 ambulatory [facility] Start: 06-19-2024 End: 06-19-2024 ambulatory MIGUEL RIDDHI Not Available Start: 05-21-2024 ambulatory [facility] Start: 05-20-2024 End: 05-20-2024 Clinisync Result Encounter Miguel Riddhi DO Work Phone: [facility] Unsolicited Start: 05-20-2024 End: 05-20-2024 Clinisync Result Encounter Miguel Riddhi DO Work Phone: [facility] Unsolicited Start: 05-17-2024 End: 05-17-2024 Clinisync Result Encounter Miguel Riddhi DO Work Phone: [facility] Unsolicited Start: 05-17-2024 End: 05-17-2024 Clinisync Result Encounter Migeul Riddhi DO Work Phone: [facility] Unsolicited Start: 04-21-2024 ambulatory [facility] Start: 04-14-2024 ambulatory [facility] Start: 03-07-2024 ambulatory VIRAL ALLRED [facility] Start: 02-25-2024 ambulatory [facility] Start: 02-19-2024 End: 02-19-2024 Bamboo flowsheet Maureen SINGLETON Work Phone: [facility] Start: 02-19-2024 End: 02-19-2024 Bamboo flowsheet Maureen SINGLETON Work Phone: [facility] Start: 02-19-2024 End: 02-19-2024 Postop follow up visit related to original px Maureen SINGLETON Work Phone: [facility] Comment on above: Postop check Start: 02-19-2024 End: 02-19-2024 ambulatory MAUREEN FELIZ Not Available Start: 02-14-2024 ambulatory [facility] Start: 02-08-2024 End: 02-08-2024 Clinisync [...] External Department Unsolicited Start: 01-16-[address] [facility] Start: 01-16-2024 End: 01-16-2024 Office outpatient [...] bleeding Start: 12-25-2023 End: 12-25-2023 ambulatory [facility] Start: 12-11-2023 End: 12-11-2023 Clinisync Result Encounter Aristides Araiza DO Work Phone: [facility] Unsolicited Start: 12-11-2023 End: 12-11-2023 Clinisync Result Encounter Aristides Araiza DO Work Phone: [facility] Unsolicited Start: 12-12-2022 End: 12-15-2022 ambulatory [facility]DA [facility] Start: 06-19-2022 End: 06-20-2022 ambulatory Isabella Raygoza APRN-NATUROPATH Facility:[facility] Start: 05-30-2022 End: 05-31-2022 ambulatory Adebayo Latham DO Facility:[facility] Start: 05-16-2022 End: 05-17-2022 ambulatory Isabella Raygoza APRN-NATUROPATH Facility:[facility] Start: 12-20-2021 End: 12-21-[address] ADEBAYO SOLARES Facility:[facility] Start: 11-15-2021 End: 11-16-[address] ADEBAYO SOLARES Facility:[facility] Procedures Date Procedure Procedure Detail Performing Clinician Start: 12-23-2024 Urnls dip stick/tabl et rgnt non-auto w/o micrscp Miguel Riddhi DO Work Phone: Start: 12-19-2024 US OB BPP W NON-STRESS Miguel Riddhi DO Work Phone: Start: 12-16-2024 Urnls dip stick/tabl et rgnt [...] 01-30-2024 ALL CBC WITH AUTO DIFF Miguel Ridhdi DO Work Phone: Start: 12-13-2023 Microscopic observat [...] Td Vaccines (7 - Td or Tdap) [facility] Start: 12-12-2028 Screening for malign ant neoplasm of cervix [facility] Start: 12-12-2026 Screening for malign ant neoplasm of cervix Pap Smear [facility] Start: 11-28-2025 Adult BMI Screening Adult BMI Screen ing [facility] Start: 11-28-2025 Tobacco Screening Tobacco Screening [facility] Start: 01-06-2025 End: 01-06-2025 Patient encounter procedure 01/06/2025 9:10 AM EDT Routine [facility] [address] [place] [id number] Miguel Hannon DO [address] [place] [address] [facility] Start: 12-30-2024 End: 12-30-2024 Patient encounter procedure 12/30/2024 8:30 AM EDT Routine [facility] [address] [place] [address] Maureen Feliz PA [address] [place] [address] [facility] Start: 12-25-2024 End: 12-25-2024 Telemedicine consultation with patient 12/25/2024 3:00 PM EDT Telemedicine [facility] at [facility] [address] [place] [phone] Magnus Thomason, MARCEL-NATUROPATH [address] [place] [address] [facility] Start: 12-23-2024 End: 12-23-2025 CULTURE, GROUP B STREP WITH SUSCEPTIBLITY CULTURE, GROUP B STREP WITH SUSCEPTIBLITY Lab Routine Third trimester ([facility]) Expected: 12/23/2024, Expires: 12/23/2025 [facility] Work Phone: Comment on above: Expected: 12/23/2024 , Expires: 12/23/2025 Start: 12-23-2024 End: 12-23-2024 Patient encounter procedure [facility] Comment on above: Arrived Start: 12-18-2024 End: 12-18-2024 Telemedicine consultation with patient 12/18/2024 8:00 AM EDT Telemedicine [facility] [address] [place] [phone] Magnus Thomason APRN-CNP [address] [place] [address] [facility] Start: 12-16-2024 End: 12-16-2024 Patient encounter procedure [facility] Comment on above: Arrived Start: 12-15-2024 Influenza vaccination [facility] Start: 12-11-2024 End: 12-11-2024 Patient encounter procedure 12/11/2024 1:00 PM EDT Appointment [facility] [place] [address] [facility] [address] [place] [address] [facility] [place] Start: 12-02-2024 End: 12-02-2024 Patient encounter procedure [facility] HERNAN[facility] Comment on above: Arrived Start: 11-20-2024 End: 11-20-2024 Telemedicine consultation with patient 11/20/2024 10:30 AM EDT Telemedicine [facility] at [facility] [address] [place] [phone] Miroslava Trinidad RN [address] [address] Juli Quezada LD Karl, Deborah, LD [address] [place] [address] [facility] Start: 11-18-2024 End: 05-21-2025 US biophysical profile w non stress test US biophysical profile w non stress test Imaging Routine Gestational diabetes mellitus (GDM), antepartum, gestational diabetes method of control unspecified ([facility]) Expected: 11/18/2024 (Approximate), Expires: 05/21/2025 [facility] Work Phone: Comment on above: Expected: 11/18/2024 (Approximate), Expires: 05/21/2025 Start: 11-18-2024 End: 11-18-2024 Patient encounter procedure 11/18/2024 8:50 AM EDT Routine [facility] [place] [facility] [address] [place] [address] Miguel Hannon DO [address] [place] [address] [facility] Start: 11-03-2024 End: 11-03-2024 Patient encounter procedure [facility] Comment on above: Arrived Start: 11-03-2024 End: 11-03-2024 Professional / ancillary services management 11/03/2024 2:00 PM EDT Ancillary Procedure [facility] [address] [place] [address] [facility] Start: 10-21-2024 End: 02-21-2025 US for US OB follow up transabdominal approach Imaging Routine Size of fetus inconsistent with dates in second trimester ([facility]) Expected: 10/21/2024, Expires: 02/21/2025 [facility] Work Phone: Comment on above: Expected: 10/21/2024 , Expires: 02/21/2025 Start: 10-21-2024 End: 10-21-2024 Patient encounter procedure [facility] Comment on above: Arrived Start: 09-16-2024 End: 09-16-2025 Measurement of glucose 3 hours after glucose challenge for glucose tolerance test Glucose tolerance, 3 hours Lab Routine Elevated glucose tolerance test Expected: 09/16/2024 (Approximate), Expires: 09/16/2025 [facility] Work Phone: Comment on above: Expected: 09/16/2024 (Approximate), Expires: 09/16/2025 Start: 09-16-2024 End: 09-16-2024 Patient encounter procedure 09/16/2024 9:30 AM EDT Routine [facility] [address] [place] [address] Miguel Hannon DO [address] [place] [address] [facility] Start: 09-16-2024 End: 09-16-2024 Professional / ancillary services management 09/16/2024 8:30 AM EDT Ancillary Procedure [facility] [address] [place] [address] [facility] Start: 08-19-2024 End: 08-19-2024 Patient encounter procedure 08/19/2024 2:20 PM EDT Routine [facility] [address] [place] [place] [phone] Maureen Feliz PA [address] [place] [address] [facility] Start: 08-19-2024 End: 09-19-2024 Alpha fetoprotein, maternal Alpha fetoprotein, maternal Lab Routine Need for maternal serum alpha-protein (MSAFP) screening Expected: 08/19/2024 (Approximate), Expires: 09/19/2024 [facility] Comment on above: Expected: 08/19/2024 (Approximate), Expires: 09/19/2024 Start: 08-19-2024 End: 08-19-2025 Measurement of glucose 3 hours after glucose challenge for glucose tolerance test Glucose tolerance, 3 hours Lab Routine Elevated glucose tolerance test Expected: 08/19/2024 (Approximate), Expires: 08/19/2025 [facility] Comment on above: Expected: 08/19/2024 (Approximate), Expires: 08/19/2025 Start: 08-19-2024 End: 11-19-2024 US for US OB 14+ weeks anatomy scan Imaging Routine Screening, , for anatomic survey Expected: 08/19/2024, Expires: 11/19/2024 [facility] Comment on above: Expected: 08/19/2024 , Expires: 11/19/2024 Start: 07-22-2024 End: 07-22-2025 Measurement of glucose 1 hour after glucose challenge for glucose tolerance test Glucose tolerance, 1 hour Lab Routine Diabetes mellitus screening Expected: 07/22/2024 (Approximate), Expires: 07/22/2025 [facility] Work Phone: Comment on above: Expected: 07/22/2024 (Approximate), Expires: 07/22/2025 Start: 07-22-2024 End: 07-22-2024 Patient encounter procedure [facility] Comment on above: Arrived Start: 06-19-2024 End: 06-19-2024 ambulatory 06/19/2024 2:30 PM EST Initial [facility] [address] [place] [phone] [facility] Start: 06-19-2024 End: 06-19-2024 Professional / ancillary services management 06/19/2024 2:00 PM EST Ancillary Procedure [facility] [address] [place] [address] [facility] Start: 02-19-2024 End: 02-19-2024 Patient encounter procedure 02/19/2024 1:40 PM EST Office Visit [facility] [address] [place] [phone] Maureen Feliz PA [address] [place] [address] Arrived [facility] Comment on above: Arrived Start: 01-16-2024 End: 01-16-2024 Patient encounter procedure 01/16/2024 4:00 PM EDT Consult [facility] [address] [place] [phone] Miguel Hannon DO [address] [place] [address] Arrived [facility] Comment on above: Arrived Start: 12-25-2023 End: 2024 Antimullerian hormone (AMH) Antimullerian hormone (AMH) Lab Routine Female infertility PCOS (polycystic ovarian syndrome) Dysfunctional uterine bleeding Expected: 12/25/2023 (Approximate), Expires: 2024 [facility] Comment on above: Expected: 12/25/2023 (Approximate), Expires: 2024 Start: 12-25-2023 End: 2024 DHEA DHEA Lab Routine PCOS (polycystic ovarian syndrome) Expected: 12/25/2023 (Approximate), Expires: 2024 [facility] Comment on above: Expected: 12/25/2023 (Approximate), Expires: 2024 Start: 12-25-2023 End: 12-25-2023 Patient encounter procedure [facility] Comment on above: Arrived Start: 12-16-2023 Influenza vaccination Influenza Vacc ine (#1) [facility] Start: 12-11-2023 End: 12-11-2023 Patient encounter procedure 12/11/2023 8:00 AM EDT Procedure Visit [facility] Aristides Araiza DO [address] [facility] [address] [place] [phone] [facility] Start: 05-17-2017 Screening for malign ant neoplasm of cervix [facility] Start: 12-23-2012 Screening for malign ant neoplasm of cervix Pap Smear [facility] Start: 12-23-2010 DTaP,Tdap and Td Vaccines (1 - Tdap) DTaP,Tdap and Td Vaccines (1 - Tdap) [facility] Start: 12-23-2009 Adult BMI Follow Up Plan Adult BMI Follow Up Plan [facility] Start: 12-23-2009 Adult BMI Screening Adult BMI Screen ing [facility] Start: 2003 Depression Screening Depression Scre ening [facility] Start: 2003 Tobacco Screening Tobacco Screening [facility] CBC W Auto Different ial panel - Blood CBC and differential Lab Routine PCOS (polycystic ovarian syndrome) Ordered: 12/25/2023 [facility] Comment on above: Ordered: 12/25/2023 CBC W Auto Different ial panel - Blood CBC and differential Lab Routine 22 weeks gestation of Elevated glucose tolerance test Ordered: 09/16/2024 [facility] Comment on above: Ordered: 09/16/2024 CHLAMYDIA TRACHOMATI S (GENITO/STI) CHLAMYDIA TRACHOMATIS (GENITO/STI) Lab Routine Exposure to STD Ordered: 08/19/2024 [facility] Comment on above: Ordered: 08/19/2024 DHEA-sulfate DHEA-sulfate Lab Routine PCOS (polycystic ovarian syndrome) Ordered: 12/25/2023 [facility] Comment on above: Ordered: 12/25/2023 Follicle stimulating hormone Follicle stimulating hormone Lab Routine PCOS (polycystic ovarian syndrome) Ordered: 12/25/2023 [facility] Comment on above: Ordered: 12/25/2023 hCG, quantitative, hCG, quantitative, Lab Routine PCOS (polycystic ovarian syndrome) Ordered: 12/25/2023 [facility] Work Phone: Comment on above: Ordered: 12/25/2023 Hemoglobin A1c/Hemoglobin.total in Blood Hemoglobin A1c Lab Routine Female infertility PCOS (polycystic ovarian syndrome) Dysfunctional uterine bleeding Ordered: 12/25/2023 [facility] Comment on above: Ordered: 12/25/2023 Human papilloma viru s DNA [Presence] in Unspecified specimen by Probe with amplification HPV DNA probe, amplified Microbiology Routine Ordered: 08/19/2024 [facility] Comment on above: Ordered: 08/19/2024 Luteinizing hormone Luteinizing hormone Lab Routine PCOS (polycystic ovarian syndrome) Ordered: 12/25/2023 [facility] Comment on above: Ordered: 12/25/2023 Neisseria gonorrhoea e DNA [Presence] in Unspecified specimen by [place] with probe detection Neisseria gonorrhea DNA probe, direct Lab Routine Exposure to STD Ordered: 08/19/2024 [facility] Comment on above: Ordered: 08/19/2024 SURESWAB(R) ADVANCED VAGINITIS PLUS, TMA SURESWAB(R) ADVANCED VAGINITIS PLUS, TMA Pathology and Cytology Routine Exposure to STD Ordered: 08/19/2024 [facility] Work Phone: Comment on above: Ordered: 08/19/2024 Thyrotropin [Units/volume] in Serum or Plasma TSH Lab Routine PCOS (polycystic ovarian syndrome) Ordered: 12/25/2023 [facility] Comment on above: Ordered: 12/25/2023 Thyroxine (T4) free [Mass/volume] in Serum or Plasma T4, free Lab Routine PCOS (polycystic ovarian syndrome) Ordered: 12/25/2023 [facility] Comment on above: Ordered: 12/25/2023 Immunizations Immunization Date Immunization Notes Care Provider Eunice josebala 01-20-2024 influenza virus vacc ine, unspecified formulation Maureen SINGLETON Work Phone: [facility] 02-12-2023 influenza virus vacc ine, unspecified formulation Aristides Araiza DO Work Phone: [facility] Payers Date Payer Category Payer Unknown [id number] 2024 Blue Cross Blue Shie ld Managed Care - Other [id number] 2024 Unknown [id number] 2023 Blue Cross Blue Shield 1.2.8 [id number] 2023 Unknown [id number] 2022 Unknown 2021 Self-pay 2019 Unknown [id number] 1991 Unknown [id number] 2.16840.1.298029.3.579.2.593 1991 Unknown [id number] 2.16.840.1.574776.3.579.2.593 1991 Unknown [id number] 2.16840.1.158749.3.579.2.196 1991 Unknown [id number] 2.16.840.1.439016.3.579.2.196 1991 Unknown [id number] 2.16.840.1.005367.3.579.2.196 1991 Unknown [id number] 2.16.840.1.356817.3.579.2.173 1991 Unknown [id number] 2.16.840.1.092386.3.579.2.1286 1991 Unknown [id number] 2.16.840.1.800002.3.579.2.1258 1991 Unknown [id number] 2.16.840.1.303321.3.579.2.1258 1991 Unknown [id number] 2.16.840.1.232232.3.579.2.1258 1991 Unknown [id number] 2.16.840.1.514380.3.579.2.1258 1991 Unknown [id number] 2.16.840.1.843218.3.579.2.1258 1991 Unknown [id number] 2.16.840.1.829735.3.579.2.1258 1991 Unknown [id number] 2.16.840.1.869730.3.579.2.1258 1991 Unknown [id number] 2.16.840.1.010603.3.579.2.1258 1991 Unknown [id number] 2.16.840.1.274541.3.579.2.1258 1991 Unknown [id number] 2.16.840.1.267791.3.579.2.1258 1991 Unknown [id number] 2.16.840.1.733702.3.579.2.1258 1991 Unknown [id number] 2.16.840.1.289958.3.579.2.1258 1991 Unknown [id number] 2.16.840.1.478035.3.579.2.1258 1991 Unknown [id number] 2.16.840.1.641321.3.579.2.1258 1991 Unknown [id number] 2.16.840.1.781606.3.579.2.1285 1991 Unknown [id number] 2.16.840.1.673898.3.579.2.1285 1991 Unknown [id number] 2.16.840.1.590036.3.579.2.1286 1959 Unknown [id number] Social History Date Type Detail Facility Start: 11-19-2023 End: 11-28-2024 Tobacco smoking status NHIS Never smoked tobacco [facility] Start: 11-19-2023 End: 11-28-2024 Tobacco use and exposure Smokeless tobacco non-user [facility] Start: 12-25-2023 End: 12-23-2024 Alcoholic beverage intake Lifetime non-drinker (finding) [facility] Start: 11-19-2023 End: 12-25-2023 History of Social function [facility] Start: 11-19-2023 End: 12-25-2023 Tobacco use panel [facility] Start: 1990 Sex assigned at Not on file [facility] Start: 04-26-2024 [facility] smoking stat [facility] Tobacco smoking consumption unknown [facility] Start: 11-11-2024 [facility] ([facility] Within the past 12 months we worried whether our food would run out before we got money to buy more. Never True [facility] Start: 11-28-2024 Alcoholic beverage intake Ex-drinker (finding) [facility] Medical Equipment Procedure Code Equipment Code Equipment Origin al Text Equipment Identifier Dates 1 strip by In Vi tro route Daily Use in the morning prior to breakfast, 1 hour after each meal for a total of 4times daily. [id number] Start: 11-10-2024 End: 12-10-2024 1 each by In Vit ro route Daily Use to check FSBS four times daily [id number] Start: 11-10-2024 End: 12-10-2024 Use daily for insulin [id number] Start: 11-28-2024 Clinical Notes 06-19-2022 to 12-23-2024 Katarzyna Malagon LPN - 12/23/2024 11:30 AM EDTTelephone Encounter - Tessie Carranza RN - 12/18/2024 11:26 AM EDTTelephone Encounter - Tessie Carranza RN - 12/18/2024 11:26 AM EDT Note Date & Type Note Facility 12-23-2024 History of Present illness Narrative Reason for Appointment: Patient ID: Javid Prasad is a 34 y.o. female who presents for Routine Visit Patient presents today for Return OB appointment. MEDICATIONS Current Outpatient Medications Medication Instructions Alcohol Swabs (Alcohol Prep Pad) 70 % pads 1 Pad, Topical, Daily, Use four times daily to check FSBS. aspirin 81 mg, Daily RT Blood Glucose Monitoring Suppl ([employer] Glucometer) w/Device kit 1 kit, Does not apply, Daily, Use four times daily to check FSBS. In the morning prior to breakfast & 1 hour after each meal for a total of 4times daily. Continuous Glucose Sensor (Algotoch[employer] G7 Sensor) misc 1 each, Does not apply, Every 10 days Lantus SoloStar 20 Units, Subcutaneous, Nightly omeprazole (PRILOSEC) 20 mg, Daily before [...] Appearance: Normal appearance. She is well-developed. Genitourinary: Vulva normal. Cardiovascular: Rate and Rhythm: Normal rate and [...] nursing note reviewed. Exam conducted with a net washer present. Vitals: Estimated body mass index is 40.01 kg/m as calculated from the following: Height as of 01/16/24: 6'. Weight as of this encounter: 295 lb. BP: 120/70 Patient's last menstrual period was 04/12/2024. ASSESSMENT & PLAN ICD-10-CM 1. 36 weeks gestation of ([facility]) Z3A.36 POCT urinalysis dipstick manually resulted 2. Third trimester ([facility]) Z34.93 POCT urinalysis dipstick manually resulted CULTURE, GROUP B STREP WITH SUSCEPTIBLITY CULTURE, GROUP B STREP WITH SUSCEPTIBLITY 3. Gestational diabetes mellitus (GDM), antepartum, gestational diabetes method of control unspecified ([facility]) O24.419 Patient is doing well but has complaints of being tired and having maternal discomfort due to . Patient verbalized frequent movement and was instructed to perform kick counts three times per day. labor precautions were given, LARC consent was signed/declined, and GBS was obtained. Cervical check was performed and patient is 0cm dilated. Orders Placed This Encounter Procedures CULTURE, GROUP B STREP WITH SUSCEPTIBLITY POCT urinalysis dipstick manually resulted Follow Up: Patient is to return to office in 1 week for routine OB appointment Documented by Katarzyna Malagon LPN on behalf of: Miguel Hannon DO documented in this encounter [facility] 12-18-2024 Miscellaneous Notes RN spoke to Javid via phone. Javid is unable to connect to [employer] Video call with Magnus Thomason NP. Patient stated that MyChart keeps kicking her out . Another link sent by Magnus to patient's phone but patient was unable to open link or connect to the internet. Magnus reviewed the patient's sugar logs and increased the patient's Insulin Lantus to 20 units at night. Patient verbalized understanding and appointment was rescheduled to 12/25/24 with Magnus Thomason NP. documented in this encounter [facility] 12-18-2024 Telephone encounter Note RN spoke to Javid via phone. Javid is unable to connect to [employer] Video call with Magnus Thomason NP. Patient stated that MyChart keeps kicking her out . Another link sent by Magnus to patient's phone but patient was unable to open link or connect to the internet. Magnus reviewed the patient's sugar logs and increased the patient's Insulin Lantus to 20 units at night. Patient verbalized understanding and appointment was rescheduled to 12/25/24 with Magnus Thomason NP. [facility] 12-16-2024 History of Present illness Narrative [...] PLAN ICD-10-CM 1. 35 weeks gestation of ([facility]) Z3A.35 POCT urinalysis dipstick manually resulted 2. Third trimester ([facility]) Z34.93 POCT urinalysis dipstick manually resulted 3. Gestational diabetes mellitus (GDM), antepartum, gestational diabetes method of control unspecified ([facility]) O24.419 Return OB: Patient presents today for [...] ARELI Espinoza documented in this encounter [facility] 12-09-2024 Miscellaneous Notes Called pt to discuss her insulin change for this week. Mary Ghislaine reviewed her blood sugars and would like her to increase her lantus in the evening to 16 units. Pt verbalized understanding, we will pull her report again next week. documented in this encounter [facility] 12-09-2024 Telephone encounter Note Called pt to discuss her insulin change for this week. Mary Ghislaine reviewed her blood sugars and would like her to increase her lantus in the evening to 16 units. Pt verbalized understanding, we will pull her report again next week. [facility] 12-03-2024 Miscellaneous Notes Called patient regarding Dexcom CGM report from 11/29 to 12/01/24 and had to leave a message. RADHA Mathur, reviewed patient's report and increased her Lantus dose to 12 units each evening. Will send patient a [email or web address] message as well and asked patient to confirm with us via phone or [email or web address] that she received the dose change information. [facility] Telephone encounter Note Called patient regarding Dexcom CGM report from 11/29 to 12/01/24 and had to leave a message. RADHA Mathur, reviewed patient's report and increased her Lantus dose to 12 units each evening. Will send patient a [employer] message as well and asked patient to confirm with us via phone or [email or web address] that she received the dose change information. [facility] History of Present illness Narrative [...] nursing note reviewed. Exam conducted with a net washer present. Vitals: Estimated body mass index is 39.3 kg/m as calculated from the following: Height as of 01/16/24: 6'. Weight as of this encounter: 289 lb 12.8 oz. BP: 114/76 Patient's last menstrual period was 04/12/2024. ASSESSMENT & PLAN ICD-10-CM 1. Third trimester ([facility]) Z34.93 POCT urinalysis dipstick manually resulted 2. 33 weeks gestation of ([facility]) Z3A.33 POCT urinalysis dipstick manually resulted 3. Gestational diabetes mellitus (GDM), antepartum, gestational diabetes method of control unspecified ([facility]) O24.419 Continuous Glucose Sensor (Dexcom G7 Sensor) [...] Pt to have repeat anatomy scan at [facility] on 12/11. Discussed delivery between 37-39 weeks d/t being on Lantus. Orders Placed This Encounter Procedures POCT urinalysis dipstick manually resulted Follow Up: Patient is to return to office in 2 week for routine OB appointment. Documented by Katarzyna Malagon LPN on behalf of: Miguel Hannon DO documented in this encounter [facility] 11-28-2024 History of Present illness Narrative Headache/epigastric pain/blurry vision/swelling? No Cramping/contractions? No Spotting/vaginal bleeding? No Loss or gush of fluid like your water may have broken? No Do you have cats at home? No Do you change the litter box (reason: risk of toxoplasmosis)? N/A Genetic testing done this here or other office? No Have you been seen here at [facility] in a previous ? No Recent ER visits or hospitalizations? No Bring blood sugar log or meter with you today? (Please bring them with you for every visit at [facility]) Yes, Dexcom report Flu vaccine (Feb-June)? N/A [...] more likely to fail compared to insulin. superintendent container terminal data on children whose mothers took oral [...] CGM we will be reviewed weekly by [facility]. Status post diabetic education nutrition counseling at [facility] Detailed anatomy ultrasound scheduled for 12/11/2024 in [facility] Repeat growth ultrasound at 38 weeks gestation, through primary OB Recommend weekly testing for the remainder of , through primary OB Delivery recommendations : Recommend delivery at [id number] Discuss delivery if estimated weight is >4500g [...] developing diabetes later on. Follow up in [facility] in 2 weeks with provider visit DISPOSITION: At this point the patient is in complete care of her configuration technician. Patient does have ultrasound and office visit scheduled with us. Thank you for allowing me to participate in the care of Javid Prasad. If there any questions please do not hesitate to contact us. Saul Granados MD Maternal- Medicine [facility] [address] [place] [address] This document was created with Telepathy technology. Though I make every effort to review the dictation as it is transcribed, on occasion the spoken word can be misinterpreted by the technology leading to inappropriate words, phrases, or sentences. This note is addressed to the requesting provider as a consultation for clinical guidance. Specific medical abbreviations are occasionally used and those are generally approved by the [place]?Board of?Obstetrics and?Gynecology?as well as?Ethan s abbreviations. The above plan of care was based solely on the diagnoses for which a consultation was requested. ?More frequent testing may be indicated based on her other medical/obstetrical conditions. The management of other or medical conditions is beyond the scope of requested consultation and will continue to be followed by the primary configuration technician or primary care provider. Note to patient: [...] of the practitioner. documented in this encounter [facility] 11-26-2024 History of Present illness Narrative [...] morning and sched. documented in this encounter [facility] 11-26-2024 Miscellaneous Notes Called pt to let her know that Magnus Thomason reviewed her dexcom and would like her to start marking her fasting time and number. If she does know what her fasting numbers are and if they are consistently over 95 then she needs an appt to start medication. She can call and make that appt at [phone] option #3. It looks as though her fastings are running above target but would like to see what the actual numbers are running. documented in this encounter [facility] 11-26-2024 Telephone encounter Note Called pt to let her know that Magnus Thomason reviewed her dexcom and would like her to start marking her fasting time and number. If she does know what her fasting numbers are and if they are consistently over 95 then she needs an appt to start medication. She can call and make that appt at [phone] option #3. It looks as though her fastings are running above target but would like to see what the actual numbers are running. [facility] 11-25-2024 Miscellaneous Notes Called regarding food [...] meals. Asked that she call back at [phone] and let us know if she is having any consistent elevated blood sugars. documented in this encounter [facility] 11-25-2024 Telephone encounter Note Called regarding food [...] meals. Asked that she call back at [phone] and let us know if she is having any consistent elevated blood sugars. [facility] 11-20-2024 History of Present illness Narrative DIABETES [...] care for you: OB Provider Family Doctor Cloth Piecer Name: Dr. Alvin Hannon Name: Dr. Karena [...] first Is there anything about your culture, moravian, or personal beliefs we need to know about to care for you: Other Tracking Primary Language spoken: Iranian [22] Primary Language for learning: Iranian Are you currently in a relationship where you are physically hurt, threatened or made to fee afraid? [] Yes [] No Commissioning Specialist needed? [] Yes [] No Marital [...] Interpersonal Safety: Unknown (06/07/2023) Received from [facility] Safety & Environment Fear of Current or [...] If yes, where: On thge following scale, habematolel the number, which describes your current level [...] weekly Educational Level Masters Family issues stable Cultural/ethnic/yarsanism influences demies Exercise approved by MD? Yes Current Exercise program walking 5 miles Who prepares the meal Self Who purchase food at your home? Self and S.O Equipment use for cooking/food storage Has everything Food Assistance(Ex.WIC, Food [place]) Declined Dining out Yes Twice a week Appetite/Appetite changes Flucuates, better lately Weight History Stable Do you have cats at home? Infant Feeding Plans Breast Feeding If you have cats, who cleans the litter box? Cravings/Aversions/Pica Only food aversions to meat Nutrition Assessment Worksheet: Week/Weekend Food Recall Breakfast Iranian muffin with cream cheese or yogurt, water [...] time 38 minutes. [facility] History of Present illness Narrative Reason [...] Maternal Grandfather James Sytt Hypertension Maternal Grandmother Sandyalec Sytt Diabetes Paternal [...] nursing note reviewed. Exam conducted with a net washer present. Vitals: Estimated body mass index is 38.52 kg/m as calculated from the following: Height as of 01/16/24: 6'. Weight as of this encounter: 284 lb. BP: 112/70 Patient's last menstrual period was 04/12/2024. ASSESSMENT & PLAN ICD-10-CM 1. Third trimester ([facility]) Z34.93 Urine dip 2. 31 weeks gestation of ([facility]) Z3A.31 Urine dip 3. Gestational diabetes mellitus (GDM), antepartum, gestational diabetes method of control unspecified ([facility]) O24.419 Return OB: Patient presents today for a routine obstetrics appointment. Patient is currently 31w3d . Patient states she is doing well but has complaints of being tired due to current . Patient has verbalizes frequent movement. labor precautions was discussed/given and patient was instructed to perform kick counts three times a day. Pt being sent to [facility] to complete anatomy scan. RVOT and LVOT and lips not evaluated. Pt voiced understanding. Orders Placed This Encounter Procedures Urine dip Follow Up: Patient is to return to office in 2 week for routine OB appointment. Documented by Katarzyna Malagon LPN on behalf of: Miguel Hannon DO documented in this encounter [facility] 11-03-2024 History of Present illness Narrative [...] PLAN ICD-10-CM 1. 29 weeks gestation of ([facility]) Z3A.29 POCT urinalysis dipstick manually resulted 2. Third trimester ([facility]) Z34.93 POCT urinalysis dipstick manually resulted [...] Hannon DO documented in this encounter [facility] 10-21-2024 Note [facility] Consult Note [...] PSH: History reviewed. No pertinent surgical history. : [employer] Tobacco Use: Low Risk (10/21/2024) Patient History [...] normal affect Orientation (more content not included)... [facility] 10-21-2024 History of Present illness [...] Name Age of Onset Arthritis Father Adebayo Lraa Diabetes Father Adebayo Marco Hyperlipidemia Father Adebayo Marco Hypertension Father Adebyao Lara Kidney disease Father Adebayo Lara Stroke [...] ASSESSMENT & PLAN ICD-10-CM 1. Second trimester ([facility]) Z34.92 POCT urinalysis dipstick manually resulted 2. 27 weeks gestation of ([facility]) Z3A.27 POCT urinalysis dipstick manually resulted [...] ARELI Espinoza documented in this encounter [facility] 09-16-2024 History of Present illness Narrative [...] nursing note reviewed. Exam conducted with a net washer present. Vitals: Estimated body mass index is [...] Hannon DO documented in this encounter [facility] 08-19-2024 History of Present illness Narrative [...] ARELI Espinoza documented in this encounter [facility] 07-22-2024 History of Present illness Narrative [...] disease Father Adebayo Marco Stroke Father Adebayo Macro Diabetes Maternal Grandfather James Sytt Hypertension Maternal Grandmother Sandy Alcaraz Diabetes Paternal [...] nursing note reviewed. Exam conducted with a net washer present. Vitals: Estimated body mass index is [...] or undercooked meat, and [facility] Patient has been consulted regarding any further [...] Hannon DO documented in this encounter [facility] 02-19-2024 History of Present illness Narrative [...] Hyperlipidemia Father Adebayo Lara Hypertension Father Adebayo Marco Kidney disease Father [...] having a D&C Hysteroscopy performed [facility] with Dr. Hannon. Pathology results was reviewed with the patient in great detail and all restrictions have been lifted. Follow Up: Patient is to return to the office for annual exam unless needed otherwise. Documented by ARELI Espinoza on behalf of: ARELI Espinoza documented in this encounter [facility] 01-16-2024 History of Present illness Narrative Reason for Appointment: Patient ID: Javid Prasad is a 33 y.o. female who presents for Pre-op Visit Patient presents today for Pre Op appointment. Patient is scheduled to undergo D&C Hysteroscopy, possible Myosure on 02/08/[address] [facility]annon at [facility] . MEDICATIONS Current Outpatient Medications Medication Instructions metFORMIN [...] reviewed, and patient is to proceed to [facility] OR. Follow Up: Patient is to follow up between 1-2 weeks post operative to assess proper healing and recovery from procedure. Documented by Katarzyna Malagon LPN on behalf of: Miguel Hannon DO documented in this encounter [facility] 12-25-2023 History of Present illness Narrative [...] nursing note reviewed. Exam conducted with a net washer present. Vitals: Estimated body mass index is [...] Hannon DO documented in this encounter [facility] 12-25-2023 Note Try to bring the [...] not heard Diastolic (more content not included)... [facility] 06-19-2022 Note This is a [...] dreaming in association with her activity. 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 Nutrition/Health Caffeine intake amount: 20 oz diet coke 3 times a week. Substance Abuse Denies All Tobacco Never (less than 100 in lifetime) Use:. Family History A-fib: Mother. Diabetes: Father. Stroke: Father. [1] Office Visit Note; Adebayo Latham DO [facility] 05/16/2022 14:30 EST [2] Office Visit Note; Adebayo Latham DO [facility] 05/16/2022 14:30 EST [3] Office Visit Note; Adebayo Latham DO [facility] 05/16/2022 14:30 EST Electronically signed by Isabella Grant 06/19/22 15:39 EST [facility] Evaluation note Diagnosis Pre-op examination Uterine [...] of control unspecified [facility] Diagnosis Insulin controlled gestational diabetes mellitus (GDM) in third trimester- Primary Prediabetes in mother during Family history of type 2 diabetes mellitus Family history of diabetes mellitus Obesity affecting , antepartum, unspecified obesity type 32 weeks gestation of [facility] Diagnosis Third trimester ([facility]) state, incidental 33 weeks gestation of ([facility]) Gestational diabetes mellitus (GDM), antepartum, gestational diabetes method of control unspecified ([facility]) [facility] Diagnosis 35 weeks gestation of ([facility]) Third trimester ([facility]) state, incidental Gestational diabetes mellitus (GDM), antepartum, gestational diabetes method of control unspecified ([facility]) [facility] Diagnosis 36 weeks gestation of ([facility]) Third trimester ([facility]) state, incidental Gestational diabetes mellitus (GDM), antepartum, gestational diabetes method of control unspecified ([facility]) [facility]ructions[facility] on filedocumented in [facility] System[facility]ructionsNot on filedocumented in this encounterGre[facility] SystemInstructionsNot on filedocumented in this [facility] SystemInstructionsNot on filedocumented in this encounterGreene Memorial Hospital System InstructionsNot on filedocumented in this encounterGreene Memorial Hospital System InstructionsNot on filedocumented in this encounterGreene Memorial Hospital System Summary Purpose Family History [...] section and content) DATE CREATED AUTHOR 07/04/2021 [facility] DATE CREATED AUTHOR AUTHOR'S ORGANIZ ATION 2021 [facility] DATE CREATED AUTHOR AUTHOR'S ORGANIZ ATION 06/21/2022 [facility] DATE CREATED AUTHOR AUTHOR'S ORGANIZ ATION 12/15/2022 [facility] DATE CREATED AUTHOR AUTHOR'S ORGANIZ ATION 11/30/2024 [facility] DATE CREATED AUTHOR AUTHOR'S ORGANIZ ATION 12/13/2024 [facility] DATE CREATED AUTHOR AUTHOR'S ORGANIZ ATION 12/17/2024 [facility] EP[facility] DATE CREATED AUTHOR AUTHOR'S ORGANIZ ATION 12/20/2024 [facility] Care Teams (unrecognized sec tion and content) Plugger Worker Relationship Specialty Start Date End Date Adebayo Solares MD [address] [place] [address] PCP - General Family Medicine 11/19/23 Plugger Worker Relationship Specialty Start Date End Date Adebayo Solares MD [address] [place] [address] PCP - General Family Medicine 11/19/23 Plugger Worker Relationship Specialty Start Date End Date Adebayo Solares MD [address] [place] [address] PCP - General Family Medicine 11/19/23 Plugger Worker Relationship Specialty Start Date End Date Adebayo Solares MD [address] [place] [address] PCP - General Family Medicine 11/19/23 Plugger Worker Relationship Specialty Start Date End Date Adebayo Solares MD [address] [place] [address] PCP - General Family Medicine 11/19/23 Plugger Worker Relationship Specialty Start Date End Date Adebayo Solares MD [address] [place], [place] [phone] (Work) PCP - General Family Medicine 11/19/23 Plugger Worker Relationship Specialty Start Date End Date Adebayo Solares MD [address] [place], [place] [phone] (Work) PCP - General Family Medicine 11/19/23 Plugger Worker Relationship Specialty Start Date End Date Adebayo Solares MD [address] [place], [place] [phone] (Work) PCP - General Family Medicine 11/19/23 Plugger Worker Relationship Specialty Start Date End Date Adebayo Solares MD [address] [place], [place] [phone] (Work) PCP - General Family Medicine 11/19/23 Plugger Worker Relationship Specialty Start Date End Date Adebayo Solares MD [address] [place] [address] PCP - General Family Medicine 11/19/23 Plugger Worker Relationship Specialty Start Date End Date Adebayo Solares MD [address] [place] [address] PCP - General Family Medicine 11/19/23 Plugger Worker Relationship Specialty Start Date End Date Adebayo Solares MD [address] [place] [address] PCP - General Family Medicine 11/19/23 Plugger Worker Relationship Specialty Start Date End Date Adebayo Solares MD [address] [place] [address] PCP - General Family Medicine 11/19/23 Plugger Worker Relationship Specialty Start Date End Date Adebayo Solares MD [address] [place] [address] PCP - General Family Medicine 11/19/23 Plugger Worker Relationship Specialty Start Date End Date Adebayo Solares MD [address] [place] [address] PCP - General Family Medicine 11/19/23 Plugger Worker Relationship Specialty Start Date End Date Adebayo Solares MD [address] [place] [address] PCP - General Family Medicine 11/19/23 Plugger Worker Relationship Specialty Start Date End Date Adebayo Solares MD [address] [place] [address] PCP - General Family Medicine 11/19/23 Reason [...] of control unspecified Miguel Hannon R, DO [address] [place] [address] [place] [address] Phone: tel: fax: [facility] [address] [place] [address] Phone: tel: fax: Referral ID Status Reason Start Date Expiration Date Visits Requested Visits Authorized [id number] Pending Review Specialty Services Required 11/11/2024 11/11/2025 [...] BE BASED ON THE PRIMARY CLINICAL RECORDS. [facility] [employer] [facility]. provides no warranty or guarantee of the accuracy or completeness of information in this document.
== END 2024-12-23 19:54 | disposition home or self-care (01) ==
LOC: LAB 19:53
PROVIDERS: PCP Family Medicine; Visit Provider Obstetrics & Gynecology
DX: Z34.93 Encounter for supervision of normal pregnancy, unspecified, third trimester (principal)
CPT/HCPCS: 87081

== ENCOUNTER 2024-12-23 19:59 | Outpatient (OUT) | payer BC, SELFPAY ==
[2024-12-23 20:06] VITALS: BP 138/63; PULSE 92
--- OUTSIDE RECORDS SUMMARY | 2024-12-23 20:06 | XMS_ITS | CCD ---
Author Organization [facility] Care Team Providers Care Fashion Adviser Name Role Phone BECK, DR ADEBAYO Oropeza [...] Unavailable Solares, Adebayo Primary Care Unavailable Jaret BELT KNIFE FEEDER-SEED YEAST OPERATORIsabella Attending Unavaila ble SolaresAdebayo Primary Care Unavailable Jaret BELT KNIFE FEEDER-SEED YEAST OPERATORIsabella Attending Unavaila ble Solares, Adebayo Primary Care [...] adverse reactions to drug (disorder) [facility] Repository Medications Current Medications Medication Drug [...] gestational diabetes method of control unspecified ([facility]) , Elevated glucose tolerance [...] Hospital Blood, UA Negative Negative - 50 Omsin/mcL [facility] Clarity, UA Clear [facility], [facility]A Yellow [facility] Glucose, UA Negative Negative - 2000(110) ++++ mg/dL [facility] Interpretation and review of laboratory results Abnormal [facility] Ketones, UA Negative Negative - 160(16) ++++ mg/dL [facility] Leukocytes, UA Positive Negative - 500+++ Oumou/mcL [facility] Comment on above: 2+ Nitrite, UA Negative Negative - Positive [facility] pH, UA 6 5 - 9 [facility] Protein, UA Positive Negative - 2000(20) ++++ mg/dL [facility] Spec Grav, UA 1.015 1 - 1.03 [facility] Urobilinogen, UA 1.0 0.2 - 12 mg/dL [facility] US OB BPP W NON-STRESS on 12-19-2024 [place] [address] Ultrasound Report Signed Patient: JAVID PRASAD MR#: [id number] : 1990 Acct:[id number] Age/Sex: 33 / F ADM Date: 12/19/24 Loc: US Attending Dr: Miguel Hannon D.O. Ordering Physician: Miguel Hannon D.O. Date of Service: 12/19/24 Procedure(s): US OB BPP w non-stress Accession Number(s): [id number] cc: Miguel Hannon D.O.; ADEBAYO SOLARES D.O. [address] [address] Patient Name: JAVID PRASAD MRN: [facility]:[id number] date: 1990 Sex: F Assigned Patient Location: [facility] Current Patient Location: Accession/Order Number: [id number] Exam Date: 12/19/2024 19:14 Report Date: 12/19/2024 [...] Deutsch M.D. 12/19/2024 9:48 PM Dictation Location: [employer] Electronically authenticated by: [id number] Y Date: 12/19/2024 21:48 Dictated By: Sergo Deutsch D.O. Signed By: 12/19/242149 DD/ 47 TD/TT: Hospice Clinical Manager: [facility] Radiology, Radiologist, - 12/19/2024 [place] [address] Ultrasound Report Signed Patient: JAVID PRASAD MR#: [id number] : 1990 Acct:[id number] Age/Sex: 33 / F ADM Date: 12/19/24 Loc: US Attending Dr: Miguel Hannon D.O. Ordering Physician: Miguel Hannon D.O. Date of Service: 12/19/24 Procedure(s): US OB BPP w non-stress Accession Number(s): [id number] cc: Miguel Hannon D.O.; ADEBAYO SOLARES D.O. The [place] [id number] Patient Name: JAVID PRASAD MRN: [facility]:[id number] date: 1990 Sex: F Assigned Patient Location: [facility] Current Patient Location: Accession/Order Number: [id number] Exam Date: 12/19/2024 19:14 Report Date: 12/19/2024 [...] Deutsch M.D. 12/19/2024 9:48 PM Dictation Location: [employer] Electronically authenticated by: [id number] Y Date: 12/19/2024 21:48 Dictated By: Sergo Deutsch D.O. Signed By: 12/19/242149 DD/ 47 TD/TT: Hospice Clinical Manager: [facility] Radiology Study observation (narrative) [facility] US OB BPP W NON-STRESS Ordered By: Radiologist Radiology on 12-19-2024 [facility] Work Phone: Urinalysis macro (dipstick) panel (U)on 12-16-2024 Bilirubin, UA Negative Negative - 4(70) +++ mg/dL [facility] Blood, UA Negative Negative - 50 Osmin/mcL [facility] Clarity, UA Clear [facility] re Color, UA Yellow [facility] Glucose, UA Negative Negative - [...] Hospital pH, UA 6 5 - 9 [facility] e Protein, UA Negative Negative - 2000(20) ++++ mg/dL [facility] Spec Grav, UA 1.015 1 - 1.03 [facility] Urobilinogen, UA 1.0 0.2 - 12 mg/dL [facility] US OB BPP W NON-STRESS on 12-12-2024 [place] [address] Ultrasound Report Signed Patient: JAVID PRASAD MR#: [id number] : 1990 Acct:[id number] Age/Sex: 33 / F ADM Date: 12/12/24 Loc: [facility] 250-[address]: Miguel Hannon D.O. Ordering Physician: Miguel Hannon D.O. Date of Service: 12/12/24 Procedure(s): US OB BPP w non-stress Accession Number(s): [id number] cc: Miguel Hannon D.O.; ADEBAYO SOLARES D.O. [address] [address] Patient Name: JAVID PRASAD MRN: [facility]:[id number] date: 1990 Sex: F Assigned Patient Location: [facility] Current Patient Location: [facility] Accession/Order Number: [id number] Exam Date: 12/12/2024 19:06 Report Date: 12/12/2024 [...] Mcdermott M.D. 12/12/2024 8:20 PM Dictation Location: [place] [address] Electronically authenticated by: [id number] Y Date: 12/12/2024 20:20 Dictated By: Tutu Mcdermott M.D. Signed By: 12/12/242022 DD/ 19 TD/TT: Hospice Clinical Manager: [facility] Radiology, Radiologist, MD - 12/12/2024 [place] [address] Ultrasound Report Signed Patient: JAVID PRASAD MR#: [id number] : 1990 Acct:[id number] Age/Sex: 33 / F ADM Date: 12/12/24 Loc: [facility] 250-[address]: Miguel Hannon D.O. Ordering Physician: Miguel Hannon D.O. Date of Service: 12/12/24 Procedure(s): US OB BPP w non-stress Accession Number(s): [id number] cc: Miguel Hannon D.O.; ADEBAYO SOLARES D.O. [address] [address] Patient Name: JAVID PRASAD MRN: [facility]:[id number] date: 1990 Sex: F Assigned Patient Location: [facility] Current Patient Location: [facility] Accession/Order Number: [id number] Exam Date: 12/12/2024 19:06 Report Date: 12/12/2024 [...] Mcdermott M.D. 12/12/2024 8:20 PM Dictation Location: [place] [address] Electronically authenticated by: [id number] Y Date: 12/12/2024 20:20 Dictated By: Tutu Mcdermott M.D. Signed By: 12/12/242022 DD/ 19 TD/TT: [facility]ice [facility] Radiology Study observation (narrative) [facility] US OB BPP W NON-STRESS Ordered By: Radiologist Radiology on 12-12-2024 [facility] [employer] Work Phone: US OB BPP W NON-STRESS on 12-06-2024 [place] [id number] Ultrasound Report Signed Patient: JAVID PRASAD MR#: [id number] : 1990 Acct:[id number] Age/Sex: 33 / F ADM Date: 12/05/24 Loc: US Attending Dr: Miguel Hannon D.O. Ordering Physician: Miguel Hannon D.O. Date of Service: 12/05/24 Procedure(s): US OB BPP w non-stress Accession Number(s): [id number] cc: Miguel Hannon D.O.; ADEBAYO SOLARES D.O. [place] [address] Patient Name: JAVID PRASAD MRN: [facility]:[id number] date: 1990 Sex: F Assigned Patient Location: [facility] Current Patient Location: [facility] Accession/Order Number: [id number] Exam Date: 12/05/2024 19:12 Report Date: 12/06/2024 [...] Mcdermott M.D. 12/06/2024 5:01 PM Dictation Location: [place] [address] Electronically authenticated by: [id number] Y Date: 12/06/2024 17:01 Dictated By: Tutu Mcdermott M.D. Signed By: 12/06/242015 DD/ 00 TD/TT: Hospice Clinical Manager: [facility] Radiology, Radiologist, - 12/06/[address] [address] Ultrasound Report Signed Patient: JAVDI PRASAD MR#: [id number] : 1990 Acct:[id number] Age/Sex: 33 / F ADM Date: 12/05/24 Loc: US Attending Dr: Miguel Hannon D.O. Ordering Physician: Miguel Hannon D.O. Date of Service: 12/05/24 Procedure(s): US OB BPP w non-stress Accession Number(s): [id number] cc: Miguel Hannon D.O.; ADEBAYO SOLARES D.O. The [place] [id number] Patient Name: JAVID PRASAD MRN: [facility]:[id number] date: 1990 Sex: F Assigned Patient Location: [facility] Current Patient Location: [facility] Accession/Order Number: [id number] Exam Date: 12/05/2024 19:12 Report Date: 12/06/2024 [...] Mcdermott M.D. 12/06/2024 5:01 PM Dictation Location: [place] [address] Electronically authenticated by: [id number] Y Date: 12/06/2024 17:01 Dictated By: Tutu Mcdermott M.D. Signed By: 12/06/242015 DD/ 1701 TD/TT: Hospice Clinical Manager: [facility] Radiology Study observation (narrative) [facility] OB BPP W NON-STRESS Ordered By: Radiologist Radiology on 12-06-2024 [facility] Work Phone: Urinalysis macro (dipstick) panel (U)on 12-02-2024 Bilirubin, UA Negative Negative - 4(70) +++ mg/dL [facility] Blood, UA Negative Negative - 50 Osmin/mcL [facility] Clarity, UA Clear [facility] re Color, UA Yellow [facility] Glucose, UA Negative Negative - [...] Hospital pH, UA 6 5 - 9 [facility] e Protein, UA Negative Negative - 1999(20) ++++ mg/dL [facility] Spec Grav, UA 1.025 1 - 1.03 [facility] Urobilinogen, UA 1.0 0.2 - 12 mg/dL [facility] POCT Hemoglobin A1con 2024 HbA1c (Bld) [Mass fraction] 5.7 % 4 - 7 % [facility] OB BPP W NON-STRESS on 11-27-2024 [place] [address] Ultrasound Report Signed Patient: JAVID PRASAD MR#: [id number] : 1990 Acct:[id number] Age/Sex: 33 / F ADM Date: 11/27/24 Loc: US Attending Dr: Miguel Hannon D.O. Ordering Physician: Miguel Hannon D.O. Date of Service: 11/27/24 Procedure(s): US OB BPP w non-stress Accession Number(s): [id number] cc: Miguel Hannon D.O.; ADEBAYO SOLARES D.O. [place] [id number] Patient Name: JAVID PRASAD MRN: [facility]:[id number] date: 1990 Sex: F Assigned Patient Location: [facility] Current Patient Location: Accession/Order Number: [id number] Exam Date: 11/27/2024 23:39 Report Date: 11/27/2024 [...] Deutsch M.D. 11/27/2024 11:40 PM Dictation Location: [place] [address] Electronically authenticated by: [id number] Y Date: 11/27/2024 23:40 Dictated By: Sergo Deutsch D.O. Signed By: 11/27/24 2342 DD/ TD/TT: Hospice Clinical Manager: [facility] Radiology, Radiologist, - 11/27/2024 [place] [address] Ultrasound Report Signed Patient: JAVID PRASAD MR#: [id number] : 1990 Acct:[id number] Age/Sex: 33 / F ADM Date: 11/27/24 Loc: US Attending Dr: Miguel Hannon D.O. Ordering Physician: Miguel Hannon D.O. Date of Service: 11/27/24 Procedure(s): US OB BPP w non-stress Accession Number(s): [id number] cc: Miguel Hannon D.O.; ADEBAYO SOLARES D.O. The [address] [address] Patient Name: JAVID PRASAD MRN: [facility]:[id number] date: 1990 Sex: F Assigned Patient Location: [facility] Current Patient Location: Accession/Order Number: [id number] Exam Date: 11/27/2024 23:39 Report Date: 11/27/2024 [...] Deutsch M.D. 11/27/2024 11:40 PM Dictation Location: [employer] Electronically authenticated by: [id number] Y Date: 11/27/2024 23:40 Dictated By: Sergo Deutsch D.O. Signed By: 11/27/242341 DD/ 39 TD/TT: Hospice Clinical Manager: [facility] Radiology Study observation (narrative) [facility] US OB BPP W NON-STRESS Ordered By: Radiologist Radiology on 11-27-2024 [facility] [employer] Work Phone: Urinalysis macro (dipstick) panel (U)on 11-18-2024 Bilirubin, UA Negative Negative - 4(70) +++ mg/dL [facility] Blood, UA Negative Negative - 50 Osmin/mcL [facility] Clarity, UA Clear [facility] re Color, UA Light Yellow [facility] are Glucose, UA Trace Negative - 1999(110) ++++ mg/dL [facility] Interpretation and review of laboratory results Normal [facility] Ketones, UA Negative Negative - 160(16) ++++ mg/dL [facility] Leukocytes, UA Negative Negative - 500+++ Oumou/mcL [facility] Nitrite, UA Negative Negative - Positive [facility] pH, UA 6 5 - 9 [facility] e Protein, UA Negative Negative - 1999(20) ++++ mg/dL [facility] Spec Grav, UA 1.015 1 - 1.03 [facility] Urobilinogen, UA 4.0 0.2 - 12 mg/dL [facility] US OB INCOMPLETE ANATOMYon 0 11-14-[address] [address] Ultrasound Report Signed Patient: JAVID PRASAD MR#: [id number] : 1990 Acct:[id number] Age/Sex: 33 / F ADM Date: 11/13/24 Loc: US Attending Dr: Miguel Hannon D.O. Ordering Physician: Miguel Hannon D.O. Date of Service: 11/13/24 Procedure(s): US OB incomplete anatomy Accession Number(s): [id number] cc: Miguel Hannon D.O.; ADEBAYO SOLARES D.O. [place] [id number] Patient Name: JAVID PRASAD MRN: [facility]:[id number] date: 1990 Sex: F Assigned Patient Location: US Current Patient Location: Accession/Order Number: [id number] Exam Date: 11/14/2024 09:56 Report Date: 11/14/2024 [...] Burgess Jr.OZack 11/14/2024 10:06 AM Dictation Location: [place] [address] Electronically authenticated by: [id number] Y Date: 11/14/2024 10:06 Dictated By: Mark Anthony Conner M.D. Signed By: 11/14/24 1009 DD/ 1006 TD/TT: Hospice Clinical Manager: [facility] Radiology, Radiologist, - 11/14/2024 [place] [address] Ultrasound Report Signed Patient: JAVID PRASAD MR#: [id number] : 1990 Acct:[id number] Age/Sex: 33 / F ADM Date: 11/13/24 Loc: US Attending Dr: Miguel Hannon D.O. Ordering Physician: Miguel Hannon D.O. Date of Service: 11/13/24 Procedure(s): US OB incomplete anatomy Accession Number(s): [id number] cc: Miguel Hannon D.O.; ADEBAYO SOLARES D.O. The [place] [id number] Patient Name: JAVID PRASAD MRN: [facility]:[id number] date: 1990 Sex: F Assigned Patient Location: US Current Patient Location: Accession/Order Number: [id number] Exam Date: 11/14/2024 09:56 Report Date: 11/14/2024 [...] Burgess Jr.OZack 11/14/2024 10:06 AM Dictation Location: [place] [address] Electronically authenticated by: [id number] Y Date: 11/14/2024 10:06 Dictated By: Mark Anthony Conner M.D. Signed By: 11/14/24 1009 DD/ 1006 TD/TT: Hospice Clinical Manager: [facility] Radiology Study observation (narrative) [facility] US OB INCOMPLETE ANATOMYOrde red By: Radiologist Radiology on 11-14-2024 [facility] Work Phone: GLUCOSE TOLERANCE 3 HOURon 0 11-10-2024 GLUCOSE TOLERANCE 3 HOUR High mg/dL [facility] Comment on above: GLU FAST 113H (<95) Col: 11/10/24 0845 GLU 1HR 208H (<180) Col: 11/10/24 0945 GLU 2HR 152 (<155) Col: 11/10/24 1052 GLU 3HR 81 (<140) Col: 11/10/24 1147 Interpretation and review of laboratory results Abnormal [facility] Urinalysis macro (dipstick) panel (U)on 11-03-2024 Bilirubin, UA Negative Negative - 4(70) +++ mg/dL [facility] Blood, UA Negative Negative - 50 Osmin/mcL [facility] Clarity, UA Clear [facility] re Color, UA Yellow [facility] [employer] e Glucose, UA Positive Negative - 1999(110) ++++ mg/dL [facility] Interpretation and review of laboratory results Abnormal [facility] Ketones, UA Negative Negative - 160(16) ++++ mg/dL [facility] Leukocytes, UA Negative Negative - 500+++ Oumou/mcL [facility] Nitrite, UA Negative Negative - Positive [facility] pH, UA 7 5 - 9 [facility] [employer] Protein, UA Trace Negative - 1999(20) ++++ mg/dL [facility] Spec Grav, UA 1.02 1 - 1.03 [facility] Urobilinogen, UA 1.0 0.2 - 12 mg/dL [facility] US OB GROWTHon 10-31-[address] [address] Ultrasound Report Signed Patient: JAVID PRASAD MR#: [id number] : 1990 Acct:[id number] Age/Sex: 33 / F ADM Date: 10/30/24 Loc: US Attending Dr: Maureen Feliz Ordering Physician: Maureen Feliz Date of Service: 10/30/24 Procedure(s): US OB growth Accession Number(s): [id number] cc: Maureen Feliz; ADEBAYO SOLARES D.O. [place] [address] Patient Name: JAVID PRASAD MRN: [facility]:[id number] date: 1990 Sex: F Assigned Patient Location: US Current Patient Location: Accession/Order Number: [id number] Exam Date: 10/31/2024 07:37 Report Date: 10/31/2024 [...] Crow M.D. 10/31/2024 7:41 AM Dictation Location: [place] [address] Electronically authenticated by: [id number] Y Date: 10/31/2024 07:41 Dictated By: Katarzyna Crow M.D. Signed By: 10/31/24 0744 DD/ 0741 TD/TT: Hospice Clinical Manager: [facility] Radiology, Radiologist, - 10/31/[address] [address] Ultrasound Report Signed Patient: JAVID PRASAD MR#: [id number] : 1990 Acct:[id number] Age/Sex: 33 / F ADM Date: 10/30/24 Loc: US Attending Dr: Maureen Feliz Ordering Physician: Maureen Feliz Date of Service: 10/30/24 Procedure(s): US OB growth Accession Number(s): [id number] cc: Maureen Feliz; ADEBAYO SOLARES D.O. The [address] [address] Patient Name: JAVID PRASAD MRN: [facility]:[id number] date: 1990 Sex: F Assigned Patient Location: US Current Patient Location: Accession/Order Number: [id number] Exam Date: 10/31/2024 07:37 Report Date: 10/31/2024 [...] Crow M.D. 10/31/2024 7:41 AM Dictation Location: [place] [address] Electronically authenticated by: [id number] Y Date: 10/31/2024 07:41 Dictated By: Katarzyna Crow M.D. Signed By: 10/31/24 0744 DD/ 0741 TD/TT: Hospice Clinical Manager: [facility] Radiology Study observation (narrative) [facility] US OB GROWTHOrdered By: Layne ologist Radiology on 10-31-2024 [facility] [employer] [employer] Work Phone: Office Visiton 10-21-2024 Follow-up visit [id number] Javid Prasad 1990 F Date Provider Department Center 10/21/2024 MARIANA WALTER BEBETO Koehler Family History Problem Relation Age of Onset Atrial fibrillation Mother Diabetes Father Kidney disease Father Heart attack Maternal Grandmother Family Status - Relation Status Age at Mother Alive Father Alive Maternal Grandmother Level of Service:77977 [place] OFFICE/OUTPATIENT ESTABLISHED LOW MDM 20 MIN Normal [facility] Urinalysis macro (dipstick) panel (U)on 10-21-2024 Bilirubin, UA Negative Negative - 4(70) +++ mg/dL [facility] Blood, UA Negative Negative - 50 Osmin/mcL [facility] Clarity, UA Clear [facility] re Color, UA Yellow [facility] [employer] Glucose, UA Negative Negative - 1999(110) ++++ mg/dL [facility] Interpretation and review of laboratory results Abnormal [facility] Ketones, UA Positive Negative - 160(16) ++++ mg/dL [facility] Leukocytes, UA Negative Negative - 500+++ Oumou/mcL [facility] Nitrite, UA Negative Negative - Positive [facility] pH, UA 5.5 5 - 9 [facility] [employer] Protein, UA Negative Negative - 1999(20) ++++ mg/dL [facility] Spec Grav, UA 1.02 1 - 1.03 [facility] Urobilinogen, UA 1.0 0.2 - 12 mg/dL [facility] US OB 14+ WEEKS [...] II, MD, PHD at 18-Sep-2024 08:49:14 AM [employer] [facility] Normal Not Available Comment on above: Order Comment: US OB ANATOMY SINGLE W US OB CERVICAL LENGTH Estimated Date of Delivery: 01/17/25 Gestational Age as of 08/19/2024: 18w3d Urinalysis macro (dipstick) panel (U)on 09-16-2024 Bilirubin, UA Negative Negative - 4(70) +++ mg/dL [facility] Blood, UA Negative Negative - 50 Osmin/mcL [facility] Clarity, UA Clear [facility] re Color, UA Yellow [facility] e Glucose, UA Negative Negative [...] Hospital pH, UA 6 5 - 9 [facility] e Protein, UA Negative Negative - 1999(20) ++++ mg/dL [facility] Spec Grav, UA 1.025 1 - 1.03 [facility] Urobilinogen, UA 0.2 0.2 - 12 mg/dL [facility] GLUCOSE TOLERANCE 3 HOURon 0 08-23-2024 GLUCOSE TOLERANCE 3 HOUR High mg/dL [facility] Comment on above: GLU FAST 110H (<95) Col: 08/23/24 0738 GLU 1HR 173 (<180) Col: 08/23/24 0839 GLU 2HR 131 (<155) Col: 08/23/24 0939 GLU 3HR 67 (<140) Col: 08/23/24 1040 Interpretation and review of laboratory results Abnormal [facility] e RECURRENT VAGINITIS (HTRX)on 08-20-2024 ATOPOBIUM VAGINAE 0 [facility] ATOPOBIUM VAGINAE Not detected [facility] BVAB 2,3 (BACTERIAL VAGINOSIS ASSOCIATED BACTERIA 2, 3); MOBILUNCUS SPP 0 [facility] BVAB 2,3 (BACTERIAL VAGINOSIS ASSOCIATED BACTERIA 2, 3); MOBILUNCUS SPP Not detected [facility] AGUSTIN ALBICANS, PARAPSILOSIS, TROPICALIS 0 [facility] AGUSTIN ALBICANS, PARAPSILOSIS, TROPICALIS Not detected [facility] AGUSTIN GLABRATA 0 [facility] lthcare AGUSTIN GLABRATA Not detected [facility] AG[facility]IN KRUSEI [facility] AGUSTIN KRUSEI Not detected [facility] lthcare CHLAMYDIA TRACHOMATIS 0 [facility] CHLAMYDIA TRACHOMATIS Not detected N [facility] GARDNERELLA VAGINALIS 0 [facility] GARDNERELLA VAGINALIS Not detected N [facility] MEGASPHAERA (TYPES 1, 2) 0 [facility] MEGASPHAERA (TYPES 1, 2) Not detected [facility] MYCOPLASMA GENITALIUM 0 [facility] MYCOPLASMA GENITALIUM Not detected N [facility] NEISSERIA GONORRHOEAE 0 [facility] NEISSERIA GONORRHOEAE Not detected N [facility] TRICHOMONAS VAGINALIS 0 [facility] TRICHOMONAS VAGINALIS Not detected [facility] GLUCOSE 1 HOURon 08-19-2024 Glucose [Mass/Vol] 182 mg/dL High NINF - 13 0 mg/dL [facility] Interpretation and review of laboratory results Abnormal [facility] Urinalysis macro (dipstick) panel (U)on 08-19-2024 Bilirubin, UA Positive Negative - 4(70) +++ mg/dL [facility] Comment on above: small Blood, UA Negative Negative - 50 Osmin/mcL [facility] Clarity, UA Clear [facility] re Color, UA Yellow [facility] Glucose, UA Negative Negative [...] Hospital pH, UA 6 5 - 9 [facility] Protein, UA Positive Negative - 1999(20) ++++ mg/dL [facility] Comment on above: 30 Spec Grav, UA 1.025 1 - 1.03 [facility] Urobilinogen, UA 0.2 0.2 - 12 mg/dL [facility] Urinalysis macro (dipstick) panel (U)on 07-22-2024 Bilirubin, UA Negative Negative - 4(70) +++ mg/dL [facility] Blood, UA Negative Negative - 50 Osmin/mcL [facility] Clarity, UA Clear [facility] re Color, UA Yellow [facility] Glucose, UA Negative Negative [...] Hospital pH, UA 6.5 5 - 9 [facility] Protein, UA Trace Negative - 2000(20) ++++ mg/dL [facility] Spec Grav, UA 1.025 1 - 1.03 [facility] Urobilinogen, UA 0.2 0.2 - 12 mg/dL [facility] CBC and differentialon 07-15 Hematocrit (Bld) [Volume fraction] 42 % 36 - 46 % [facility] Hemoglobin (Bld) [Mass/Vol] 13.6 g/dL 12.0 - 16.0 g/dL [facility] Platelets (Bld) [#/Vol] 392 10*3/uL 150 - 399 10*3/uL [facility] WBC (Bld) [#/Vol] 9.2 10*3/mL 3.3 - 10.0 10*3/mL [facility] CBC without diffon 5 Rbc Mcv (Fl) By Automated Count 85.4 [facility] Drug Screen, Urineon 025 Amphetamine/Methamphe tamine Negative [facility] Barbiturates Negative [facility] Benzodiazepines Negative [facility] Cocaine Metabolite Negative [facility] Methadone Negative [facility] Opiates Negative [facility] Oxycodone Negative [facility] Phencyclidine Negative [facility] Thc Marijuana, Urine Negative [facility] Glucose 1h post 50g loadon 0 07-15-2024 Glucose, 1Hr PP 182 [facility] HBV surface Ag IA Qlon 07-15 Hepatitis B Surface Antigen Negative [facility] HIV 1+2 Ab+HIV1 p24 Ag IA Ql on 07-15-2024 HIV 1&2 AB/AG Non-Reactive [facility] Laboratory - Chemistry and C hemistry - challengeon 07-15-2024 Glucose [Mass/Vol] 111 mg/dL [facility] Laboratory - Hematology and Cell countson 07-15-2024 HbA1c (Bld) [Mass fraction] 5.5 % 4.0 - 6.0 % [facility] Comment on above: ADA RECOMMENDED LIMI T 4.0 - 6.0 ADA THERAPEUTIC TARGET < 7.0 ACTION SUGGESTED > 7.0 MLR HEMOGLOBIN A1Con 025 CLINISYNC No Panel Informationon 07-15 [facility] e Rubella IGG immune statuson 07-15-2024 Rubella immune IgG 1.77 [facility] T. pallidum IgG+IgM IA Ql (S )on 07-15-2024 Syphilis Non-Reactive [facility] Type and screenon 07-15-2024 Abo/Rh(D) Positive [facility] US OB TRANSVAGINALon 025 US OB [...] PHD at 20-Jun-2024 08:24:08 AM [facility] Normal Not Available Comment on above: Order Comment: US OB TRANSVAGINAL No LMP recorded. TBH PREG QUANT HCGon 025 HCG QUANTITATIVE 2792 mIU/mL [facility] Comment on above: 5-50 0.2-1 WEEK 50-500 1-2 WEEKS 100-5,000 2-3 WEEKS 500-10,000 3-4 WEEKS 1,000-50,000 4-5 WEEKS 10,000-100,000 5-6 WEEKS 15,000-200,000 6-8 WEEKS 10,000-100,000 2-3 MONTHS CLINISYNC [facility] e TBH PREG QUANT HCGon 025 HCG QUANTITATIVE 713 mIU/mL [facility] Comment on above: 5-50 0.2-1 WEEK 50-500 1-2 WEEKS 100-5,000 2-3 WEEKS 500-10,000 3-4 WEEKS 1,000-50,000 4-5 WEEKS 10,000-100,000 5-6 WEEKS 15,000-200,000 6-8 WEEKS 10,000-100,000 2-3 [facility] ALL CBC WITH AUTO DIFFon BASOPHILS ABSOLUTE AUTO 0.1 [facility] Basophils/100 WBC (Bld) 0.8 % 0.2 - 2.0 % [facility] Eosinophils/100 WBC (Bld) 3.5 % 0.9 - 7.0 % [facility] Erythrocyte distribution width (RBC) [Ratio] 13.2 % 11.0 - 15.0 % [facility] Hematocrit (Bld) [Volume fraction] 41.9 % 36.0 - 48.0 % [facility] Hemoglobin (Bld) [Mass/Vol] 13.8 g/dL 12.0 - 16.0 g/dL [facility] IMMATURE GRANULOCYTES ABS AUTO 0.02 [facility] Immature granulocytes/100 WBC (Bld) 0.3 % 0.0 - 0.5 % [facility] LYMPHOCYTES ABSOLUTE AUTO 2.5 [facility] Lymphocytes/100 WBC (Bld) 31.1 % 20.5 - 60.0 % [facility] MCH (RBC) [Entitic mass] 27.7 pg 26.7 - 34.0 pg [facility] MCHC (RBC) [Mass/Vol] 32.9 g/dL 29.9 - 35.2 g/dL [facility] MCV (RBC) [Entitic vol] 84 fL 81.0 - 99.0 fL [facility] MONOCYTES ABSOLUTE AUTO 0.5 [facility] Monocytes/100 WBC (Bld) 6.6 % 1.7 - 12.0 % [facility] NEUTROPHILS ABSOLUTE AUTO 4.6 [facility] Neutrophils/100 WBC (Bld) 57.7 % 43.0 - 75.0 % [facility] Platelet mean volume (Bld) [Entitic [...] (Bld) 0.7 % 0.2 - 2.0 % [facility] Eosinophils/100 WBC (Bld) 3.7 % 0.9 - 7.0 % [facility] Erythrocyte distribution width (RBC) [Ratio] 13.2 % 11.0 - 15.0 % [facility] Hematocrit (Bld) [Volume fraction] 42.2 % 36.0 - 48.0 % [facility] Hemoglobin (Bld) [Mass/Vol] 14 g/dL 12.0 - 16.0 g/dL [facility] IMMATURE GRANULOCYTES ABS AUTO 0.01 [facility] Immature granulocytes/100 WBC (Bld) 0.1 % 0.0 - 0.5 % [facility] LYMPHOCYTES ABSOLUTE AUTO 2.6 [facility] Lymphocytes/100 WBC (Bld) 37.7 % 20.5 - 60.0 % [facility] MCH (RBC) [Entitic mass] 28.1 pg 26.7 - 34.0 pg [facility] MCHC (RBC) [Mass/Vol] 33.2 g/dL 29.9 - 35.2 g/dL [facility] MCV (RBC) [Entitic vol] 84.6 fL [...] Health[facility] e Office Visiton 12-25-2023 Follow-up visit [id number] Javid Prasad 1990 F Date Provider Department Center 12/25/2023 [facility]IANA WALTER [facility] Family History Problem Relation Age of Onset Atrial fibrillation Mother Diabetes Father Kidney disease Father Heart attack Maternal Grandmother Family Status - Relation Status Age at Mother Father Maternal Grandmother Level of Service:55525 [place] OFFICE/OUTPATIENT ESTABLISHED LOW MDM 20 MIN Normal [facility] Cytology Cervical or vaginal smear [...] She can be sleepy during the day. [place] Sleepiness Scale score: 12. She is sleepy [...] (more content not included)... Normal [facility] CT HEAD WO CONon 12-21-2021 [...] Normal [facility] CT TEMPORAL BONES WO CONon 0 12-21-2021 [...] foramen are normal. Visualized paranasal sinuses clear. Mounter Automatic spaces normal. Orbital contents unremarkable. Posterior fossa structures normal. IMPRESSION: Normal CT of the temporal bones. Electronically authenticated by: LOUIS BRAY Date: 2021-12-21 16:11 Normal [facility] Comprehensive Metabolic Empo n 05-10-2021 Albumin [Mass/Vol] 4.1 g/dL Normal 3.2-5.5 [facility] Comment on above: Performed By: #### E BS LIPID, EBS A1C, EBS CMP #### [facility] [address] [id number] [facility] Albumin/Globulin [Mass ratio] 1.3 {ratio} Normal [facility] Comment on above: Performed By: #### E BS LIPID, EBS A1C, EBS CMP #### [facility] [address] [place] [address] [place] ALP [Catalytic activity/Vol] 77 U/L Normal 32-92 [facility] Comment on above: Performed By: #### E BS LIPID, EBS A1C, EBS CMP #### [facility] [address] [id number] [place] ALT [Catalytic activity/Vol] 19 U/L Normal 10-60 [facility] Comment on above: Performed By: #### E BS LIPID, EBS A1C, EBS CMP #### [facility] [address] [place] [address] [place] AST [Catalytic activity/Vol] 18 U/L Normal 10-42 [facility] Comment on above: Performed By: #### E BS LIPID, EBS A1C, EBS CMP #### [facility] [address] [place] [address] [place] Bilirubin [Mass/Vol] 0.3 mg/dL Normal 0.3-1.2 [facility] Comment on above: Performed By: #### E BS LIPID, EBS A1C, EBS CMP #### [facility] [address] [place] [address] [place] Calcium [Mass/Vol] 9.2 mg/dL Normal 8.2-10.2 [facility] Comment on above: Performed By: #### E BS LIPID, EBS A1C, EBS CMP #### [facility] [address] [id number] [place] Chloride [Moles/Vol] 104 mmol/L Normal 95-114 [facility] Comment on above: Performed By: #### E BS LIPID, EBS A1C, EBS CMP #### [facility] [address] [place] [address] [place] CO2 [Moles/Vol] 24.1 mmol/L Normal 22.0-30.0 [facility] Comment on above: Performed By: #### E BS LIPID, EBS A1C, EBS CMP #### [facility] [address] [id number] [place] Creatinine [Mass/Vol] 0.69 mg/dL Normal 0.44-1.03 [facility] Comment on above: Performed By: #### E BS LIPID, EBS A1C, EBS CMP #### [facility] [address] [place] [address] [place] Estimated GFR ( Liz > 60 Normal [facility] Comment on above: Result Comment: GFR estimated reference range: According to KDOQI guidelines, <60 ml/min/1.73m2 is sufficient to diagnose a patient with chronic kidney disease. Performed By: #### E BS LIPID, EBS A1C, EBS CMP #### [facility] [address] [place] [address] [place] Estimated GFR (Non- Am > 60 Normal [facility] Comment on above: Performed By: #### E BS LIPID, EBS A1C, EBS CMP #### [facility] [address] [place] [address] [place] Globulin (S) [Mass/Vol] 3.1 g/dL Normal [facility] Comment on above: Performed By: #### E BS LIPID, EBS A1C, EBS CMP #### [facility] [address] Glucose [Mass/Vol] 106 mg/dL High 70-100 [facility] Comment on above: Result Comment: ADA recommended reference range Performed By: #### E BS LIPID, EBS A1C, EBS CMP #### [address] Potassium [Moles/Vol] 4.0 mmol/L Normal 3.5-5.1 [facility] Comment on above: Performed By: #### E BS LIPID, EBS A1C, EBS CMP #### [place] [address] [place] Protein [Mass/Vol] 7.2 g/dL Normal 6.1-7.9 [facility] Comment on above: Performed By: #### E BS LIPID, EBS A1C, EBS CMP #### [facility] [address] [place] [address] [place] Sodium [Moles/Vol] 137 mmol/L Normal 136-146 [facility] Comment on above: Performed By: #### E BS LIPID, EBS A1C, EBS CMP #### [facility] [address] [place] [address] [place] Urea nitrogen [Mass/Vol] 10 mg/dL Normal 9-23 [facility] Comment on above: Performed By: #### E BS LIPID, EBS A1C, EBS CMP #### [facility] [address] [id number] [facility] EBS A1C with Estimated Ave Primo hayes 05-10-2021 Glucose [Mass/Vol] 111 mg/dL Normal [facility] Comment on above: Result Comment: PERF ORMED BY: [place] [address] PATHOLOGIST MANAGER [employer]GRAMS JERRY RAMSEY M.D. Performed By: #### E BS LIPID, EBS A1C, EBS CMP #### [facility] [address] [id number] [facility] HbA1c (Bld) [Mass fraction] 5.5 % Normal 4.3-5.6 [facility] Comment on above: Result Comment: Incr eased risk for diabetes: 5.7 - 6.4 diabetes: >6.4 glycemic control for adults with diabetes: <7.0 Performed By: #### E BS LIPID, EBS A1C, EBS CMP #### [facility] [address] [id number] [facility] Lipid Profileon 05-10-2021 Cholesterol [Mass/Vol] 202 mg/dL High 140-200 [facility] Comment on above: Result Comment: Chol less than 200 mg/dl low risk Chol 201-239 mg/dl borderline risk Chol 240 mg/dl and greater high risk Performed By: #### E BS LIPID, EBS A1C, EBS CMP #### [facility] [address] [id number] [facility] Cholesterol in HDL [Mass/Vol] 37 mg/dL Normal 35-85 [facility] Comment on above: Result Comment: HDL CHOL ATP-III CLASSIFICATION Cardiovascular Risk HDL > or equal to 60 mg/dL LOW HDL < 40 mg/dL HIGH Performed By: #### E BS LIPID, EBS A1C, EBS CMP #### [facility] [address] Cholesterol.total/Cho lesterol in HDL [Mass ratio] 5.5 {ratio} Normal <5.0 [facility] Comment on above: Result Comment: PERF ORMED BY: [facility] [address] [place] [address] PATHOLOGIST MANAGER [employer]GRAMS JERRY RAMSEY M.D. Performed By: #### E BS LIPID, EBS A1C, EBS CMP #### [facility] [address] [place] [address] [place] LDL Cholesterol,Calculate d 125 mg/dL High 0-100 [facility] Comment on above: Result Comment: LDL ATP III CLASSIFICATION LDL less than 100 mg/dL Optimal LDL 100-129 mg/dL Near or above optimal LDL 130-159 mg/dL Borderline high LDL 160-189 mg/dL High LDL greater than 189 mg/dL Very high Performed By: #### E BS LIPID, EBS A1C, EBS CMP #### [facility] [address] Triglyceride w/Reflex 199 mg/dL High 35-149 [facility] Comment on above: Result Comment: TRIG ATP III CLASSIFICATION TRIG less than 150 mg/dL Normal TRIG 150-199 mg/dL Borderline high TRIG 200-500 mg/dL High TRIG greater than 500 mg/dL Very high Standard traceable to the Center for Disease Conrtrol and Prevention (CDC) test method. Performed By: #### E BS LIPID, EBS A1C, EBS CMP #### [facility] [address] [id number] [facility] VLDL CHOLESTEROL 39 mg/dL Normal [facility] Comment on above: Performed By: #### E BS LIPID, EBS A1C, EBS CMP #### [facility] [address] [phone] [facility] Vital Signs Date Time Vital Sign Value Performing Clinician Ronaldo coello 12-23-2024 11:38-0400 Body mass index (BMI) [Ratio] 40.01 kg/m2 Miguel Riddhi DO Work Phone: [facility] 12-23-2024 11:38-0400 Body weight 133.81 kg Wriggle DO Work Phone: [facility] 12-23-2024 11:38-0400 Diastolic blood pressure 70 mm[Hg] Miguel Riddhi DO Work Phone: [facility] 12-23-2024 11:38-0400 Systolic blood pressure 120 mm[Hg] Miguel Riddhi DO Work Phone: [facility] 12-16-2024 13:08-0400 Body mass index (BMI) [Ratio] 39.98 kg/m2 Maureen Feliz PA Work Phone: [facility] 12-16-2024 13:08-0400 Body weight 133.72 kg Maureen Sheridaney PA Work Phone: [facility] 12-16-2024 13:08-0400 Diastolic blood pressure 70 mm[Hg] Maureen Sheridaney PA Work Phone: [facility] 12-16-2024 13:08-0400 Systolic blood pressure 120 mm[Hg] Maureen Sheridaney PA Work Phone: [facility] 12-02-2024 08:57-0400 Body mass index (BMI) [Ratio] [...] 182.9 cm Saul Granados MD Work Phone: [facility] 11-28-2024 11:44-0400 Body mass index (BMI) [Ratio] 38.9 kg/m2 Saul Granados MD Work Phone: [facility] 11-28-2024 11:44-0400 Body weight 130.09 kg Saul Granados MD Work Phone: [facility] 11-28-2024 11:44-0400 Diastolic blood pressure 60 mm[Hg] Saul Granados MD Work Phone: [facility] 11-28-2024 11:44-0400 Heart rate 96 /min Saul Granados MD Work Phone: [facility] 11-28-2024 11:44-0400 Systolic blood pressure 114 mm[Hg] Saul Granados MD Work Phone: [facility] 11-18-2024 09:04-0400 Body mass index (BMI) [...] PA Work Phone: [facility] 10-21-2024 08:41-0400 Systolic blood pressure 124 mm[Hg] Maureen Paula PA Work Phone: [facility] 09-16-2024 [...] 37.57 kg/m2 Maureen Feliz PA Work Phone: [facility] 08-19-2024 14:52-0400 Body weight 125.65 kg Ma[facility]en Feliz PA [facility] mass index (BMI) [Ratio] 37.95 kg/m2 Maureen Madrid PA Work Phone: [facility] 02-19-2024 14:07-0500 Body weight 126.92 kg Maureen Madrid PA Work Phone: [facility] 02-19-2024 14:07-0500 Diastolic blood pressure 74 mm[Hg] Maureen Madrid PA Work Phone: [facility] 02-19-2024 14:07-0500 Systolic blood pressure 114 mm[Hg] Maureen Paula PA Work Phone: [facility] [...] 125.65 kg Miguel Riddhi DO Work Phone: [facility] 12-25-2023 10:120400 Diastolic blood pressure 84 mm[Hg] Miguel Riddhi DO Work Phone: [facility] 12-25-2023 10:12-0400 Systolic blood pressure [...] on above: 36 weeks gestation o f ([facility]); Third trimester ([facility]); Gestational diabetes mellitus (GDM), antepartum, gestational diabetes method of control unspecified ([facility]) Start: 12-19-2024 End: 12-19-2024 Clinisync Result Encounter Miguel Riddhi DO Work Phone: [facility] External Department Unsolicited Start: 12-19-2024 End: 12-19-2024 Clinisync Result Encounter Miguel Riddhi DO Work Phone: [facility] External Department Unsolicited Start: 12-18-2024 End: 12-18-2024 Telephone encounter Tessie Carranza RN [facility] Start: 12-18-2024 End: 12-18-2024 ambulatory MAGNUS THOMASON [facility] Start: 12-16-2024 End: 12-16-2024 Bamboo flowsheet Maureen SINGLETON Work Phone: [facility] Start: 12-16-2024 End: 12-16-2024 Bamboo flowsheet Maureen SINGLETON Work Phone: [facility] Start: 12-16-2024 End: 12-16-2024 flow sheet Maureen SINGLETON Work Phone: [facility] Comment on above: 35 weeks gestation o f ([facility]); Third trimester ([facility]); Gestational diabetes mellitus (GDM), antepartum, gestational diabetes method of control unspecified ([facility]) Start: 12-16-2024 End: 12-16-2024 ambulatory MAUREEN FELIZ Not Available Start: 12-12-2024 End: 12-12-2024 Clinisync Result Encounter Miguel Riddhi DO Work Phone: [facility] External Department Unsolicited Start: 12-12-2024 End: 12-12-2024 Clinisync Result Encounter Miguel Riddhi DO Work Phone: [facility] External Department Unsolicited Start: 12-11-2024 End: 12-11-2024 ambulatory [facility] R [facility] Start: 12-09-2024 End: 12-09-2024 Orders Only Mary Scanlon PA-C Work Phone: [facility] - Labor Start: 12-06-2024 End: 12-06-2024 Clinisync Result Encounter Miguel Riddhi DO Work Phone: [facility] External Department Unsolicited Start: 12-06-2024 End: 12-06-2024 Clinisync Result Encounter Miguel Riddhi DO Work Phone: [facility] External Department Unsolicited Start: 12-03-2024 End: 12-03-2024 Orders Only Magnus DIAZ Work Phone: [facility] Start: 12-02-2024 End: 12-02-2024 Bamboo flowsheet Miguel Riddhi DO Work Phone: [facility] Start: 12-02-2024 End: 12-02-2024 Bamboo flowsheet Miguel Riddhi DO Work Phone: [facility]ARY Start: 12-02-2024 End: 12-02-2024 flow sheet Miguel Riddhi DO Work Phone: [facility] Comment on above: Third trimester preg shayla ([facility]); 33 weeks gestation of ([facility]); Gestational diabetes mellitus (GDM), antepartum, gestational diabetes method of control unspecified ([facility]) Start: 12-02-2024 End: 12-02-2024 ambulatory MIGUEL MATTSONO Not Available Start: 11-28-2024 End: 11-28-2024 Office outpatient new 45 minutes Saul Granados MD Work Phone: [facility] Comment on above: Insulin controlled g estational diabetes mellitus (GDM) in third trimester (Primary Dx); Prediabetes in mother during ; Family history of type 2 diabetes mellitus; Obesity affecting , antepartum, unspecified obesity type; 32 weeks gestation of Start: 11-28-2024 End: 11-28-2024 ambulatory [facility] Start: 11-27-2024 End: 11-27-2024 Clinisync Result Encounter Miguel Riddhi DO Work Phone: [facility] External Department Unsolicited Start: 11-27-2024 End: 11-27-2024 Clinisync Result Encounter Miguel Riddhi DO Work Phone: [facility] External Department Unsolicited Start: 11-26-2024 End: 11-26-2024 Documentation procedure Yojana Diehl RN [facility] Start: 11-26-2024 End: 11-26-2024 Telephone encounter Yojana Diehl RN [facility] Start: 11-25-2024 End: 11-25-2024 Telephone encounter Naomie LUQUE Work Phone: [facility] Start: 11-24-2024 End: 11-24-2024 Chart abstracting Scanning Provider External [facility] Start: 11-20-2024 End: 11-20-2024 ambulatory NAOMIE CHAHAL [facility] Start: 11-18-2024 End: 11-18-2024 Bamboo flowsheet Miguel Riddhi DO Work Phone: [facility] Start: 11-18-2024 End: 11-18-2024 Bamboo flowsheet Miguel Riddhi DO Work Phone: [facility] Start: 11-18-2024 End: 11-18-2024 ambulatory MIGUEL RIDDHI Not Available Start: 11-18-2024 End: 11-18-2024 flow sheet Miguel Riddhi DO Work Phone: [facility] Comment on above: Third trimester preg shayla ([facility]); 31 weeks gestation of ([facility]); Gestational diabetes mellitus (GDM), antepartum, gestational diabetes method of control unspecified ([facility]) Start: 11-14-2024 End: 11-14-2024 Clinisync Result Encounter Miguel Riddhi DO Work Phone: [facility] External Department Unsolicited Start: 11-14-2024 End: 11-14-2024 Clinisync Result Encounter Miguel Riddhi DO Work Phone: [facility] External Department Unsolicited Start: 11-13-2024 End: 11-13-2024 Chart abstracting Generic External Data Provider [facility] Start: 11-12-2024 ambulatory VIRAL ALLRED [facility] Start: 11-10-2024 End: 11-10-2024 Clinisync Result Encounter Miguel Riddhi DO Work Phone: [facility] External Department Unsolicited Start: 11-10-2024 End: 11-10-2024 Clinisync Result Encounter Miguel Riddhi DO Work Phone: [facility] External Department Unsolicited Start: 11-03-2024 End: 11-03-2024 flow sheet Miguel Riddhi DO Work Phone: [facility] Comment on above: 29 weeks gestation o f ([facility]); Third trimester ([facility]) Start: 11-03-2024 End: 11-03-2024 ambulatory MIGUEL RIDDHI Not Available Start: 11-03-2024 End: 11-03-2024 Bamboo flowsheet Miguel Riddhi DO Work Phone: [facility] Start: 11-03-2024 End: 11-03-2024 Bamboo flowsheet Miguel Riddhi DO Work Phone: [facility] Start: 10-31-2024 End: 10-31-2024 Clinisync Result Encounter Maureen SINGLETON Work Phone: [facility] External Department Unsolicited Start: 10-31-2024 End: 10-31-2024 Clinisync Result Encounter Maureen SINGLETON Work Phone: [facility] External Department Unsolicited Start: 10-21-2024 End: 10-21-2024 Bamboo flowsheet Maureen SINGLETON Work Phone: [facility] Start: 10-21-2024 End: 10-21-2024 Bamboo flowsheet Maureen SINGLETON Work Phone: [facility] Start: 10-21-2024 End: 10-21-2024 ambulatory [facility] Start: 10-21-2024 End: 10-21-2024 flow sheet Maureen SINGLETON Work Phone: [facility] Comment on above: Size of fetus incons istent with dates in second trimester ([facility]) (Primary Dx); Second trimester ([facility]); 27 weeks gestation of ([facility]) Start: 10-21-2024 End: 10-21-2024 ambulatory MAUREEN FELIZ Not Available Start: 09-16-2024 End: 09-16-2024 ambulatory MIGUEL RIDDHI Not Available Start: 09-16-2024 End: 09-16-2024 flow sheet Miguel Riddhi DO Work Phone: [facility] Comment on above: Second trimester pre gnancy; 22 weeks gestation of ; Elevated glucose tolerance test Start: 09-16-2024 End: 09-16-2024 ambulatory MIGUEL RIDDHI Not Available Start: 09-02-2024 ambulatory [facility] Start: 08-23-2024 End: 08-23-2024 Clinisync [...] [facility] External Department Unsolicited Start: 06-26-2024 ambulatory [facility] Start: 06-19-2024 End: 06-19-2024 ambulatory MIGUEL RIDDHI Not Available Start: 05-21-2024 ambulatory [facility] Start: 05-20-2024 End: 05-20-2024 Clinisync [...] [facility] External Department Unsolicited Start: 04-21-2024 ambulatory [facility] Start: 04-14-2024 ambulatory [facility] Start: 03-07-2024 ambulatory VIRAL ALLRED [facility] Start: 02-25-2024 ambulatory [facility] Start: 02-19-2024 End: 02-19-2024 Bamboo [...] MAUREEN FELIZ Not Available Start: 02-14-2024 ambulatory [facility] Start: 02-08-2024 End: 02-08-2024 Clinisync [...] Department Unsolicited Start: 01-16-[address] [facility] Start: 01-16-2024 End: 01-16-2024 Office outpatient [...] uterine bleeding Start: 12-25-2023 End: 12-25-2023 ambulatory [facility] Start: 12-11-2023 End: 12-11-2023 Clinisync Result Encounter Aristides Araiza DO Work Phone: [facility] External Department Unsolicited Start: 12-11-2023 End: 12-11-2023 Clinisync Result Encounter Aristides Araiza DO Work Phone: [facility] External Department Unsolicited Start: 12-12-2022 End: 12-15-2022 ambulatory EMEKANEYDA HERNANDEZ [facility] Start: 06-19-2022 End: 06-20-2022 ambulatory Isabella Raygoza APRN-SEED YEAST OPERATOR Facility:[facility] Start: 05-30-2022 End: 05-31-2022 ambulatory Adebayo Latham DO Facility:[facility] Start: 05-16-2022 End: 05-17-2022 ambulatory Isabella Raygoza APRN-SEED YEAST OPERATOR Facility:[facility] Start: 12-20-2021 End: 12-21-[address] [...] 07-15-2024 Basic metabolic pane l calcium total Miugel R Riddhi DO Work Phone: Start: 07-15-2024 [...] Td Vaccines (7 - Td or Tdap) [facility] Start: 12-12-2028 Screening for malign ant neoplasm of cervix [facility] Start: 12-12-2026 Screening for malign ant neoplasm of cervix Pap Smear [facility] Start: 11-28-2025 Adult BMI Screening Adult BMI Screen ing [facility] Start: 11-28-2025 Tobacco Screening Tobacco Screening [facility] Start: 01-06-2025 End: 01-06-2025 Patient encounter procedure 01/06/2025 9:10 AM EDT Routine [facility] [address] [place] [id number] Miguel Hannon DO [address] [place] [address] [facility] Start: 12-30-2024 End: 12-30-2024 Patient encounter procedure 12/30/2024 8:30 AM EDT Routine [facility] [address] [place] [address] Maureen Feliz PA [address] [place] [address] [facility] Start: 12-25-2024 End: 12-25-2024 Telemedicine consultation with patient 12/25/2024 3:00 PM EDT Telemedicine Maternal- Medicine at [facility] [address] [place] [phone] Magnus Thomason, MARCEL-SEED YEAST OPERATOR [address] [place] [address] M[facility]- Medicine at [facility] Start: 12-23-2024 End: 12-23-2025 CULTURE, GROUP B STREP WITH SUSCEPTIBLITY CULTURE, GROUP B STREP WITH SUSCEPTIBLITY Lab Routine Third trimester ([facility]) Expected: 12/23/2024, Expires: 12/23/2025 [facility] Work Phone: Comment on above: Expected: 12/23/2024 , Expires: 12/23/2025 Start: 12-23-2024 End: 12-23-2024 Patient encounter procedure [facility] HERNANDEZ Comment on above: Arrived Start: 12-18-2024 End: 12-18-2024 Telemedicine consultation with patient 12/18/2024 8:00 AM EDT Telemedicine Maternal- Medicine at [facility] [address] [place] [phone] Magnus Thomason APRN-CNP [address] [place] [address] M[facility]- Medicine at [facility] Start: 12-16-2024 End: 12-16-2024 Patient encounter procedure JOSY HERNANDEZ Comment on above: Arrived Start: 12-15-2024 Influenza vaccination [facility] Start: 12-11-2024 End: 12-11-2024 Patient encounter procedure 12/11/2024 1:00 PM EDT Appointment [facility] [place] [address] [facility] [address] [place] [address] [facility] [place] Start: 12-02-2024 End: 12-02-2024 Patient encounter procedure JOSY HERNANDEZ Comment on above: Arrived Start: 11-20-2024 End: 11-20-2024 Telemedicine consultation with patient 11/20/2024 10:30 AM EDT Telemedicine Maternal- Medicine at [facility] [address] [place] [phone] Miroslava Trinidad RN [address] [address] Juli Quezada LD Karl, Deborah, LD [address] [place] [address] M[facility]- Medicine at [facility] Start: 11-18-2024 End: 05-21-2025 US biophysical profile w non stress test US biophysical profile w non stress test Imaging Routine Gestational diabetes mellitus (GDM), antepartum, gestational diabetes method of control unspecified ([facility]) Expected: 11/18/2024 (Approximate), Expires: 05/21/2025 [facility] Work Phone: Comment on above: Expected: 11/18/2024 (Approximate), Expires: 05/21/2025 Start: 11-18-2024 End: 11-18-2024 Patient encounter procedure 11/18/2024 8:50 AM EDT Routine [facility] [place] [facility] [address] [address] Miguel Hannon DO [address] [place] [address] [facility] Start: 11-03-2024 End: 11-03-2024 Patient encounter procedure [facility] Comment on above: Arrived Start: 11-03-2024 End: 11-03-2024 Professional / ancillary services management 11/03/2024 2:00 PM EDT Ancillary Procedure [facility] [address] [place] [address] [facility] Start: 10-21-2024 End: 02-21-2025 US for US OB follow up transabdominal approach Imaging Routine Size of fetus inconsistent with dates in second trimester ([facility]) Expected: 10/21/2024, Expires: 02/21/2025 [facility] Work Phone: Comment on above: [...] [facility] [address] [place] [address] Miguel Hannon DO [address] [place] [address] [facility] Start: 09-16-2024 End: 09-16-2024 Professional / ancillary services management 09/16/2024 8:30 AM EDT Ancillary Procedure [facility] [address] [place] [phone] [facility] Start: 08-19-2024 End: 08-19-2024 Patient encounter procedure 08/19/2024 2:20 PM EDT Routine [facility] [address] [address] Maureen Feliz PA [address] [place] [address] [facility] Start: 08-19-2024 End: 09-19-2024 Alpha [...] tolerance test Expected: 08/19/2024 (Approximate), Expires: 08/19/2025 [facility] Comment on above: Expected: 08/19/2024 (Approximate), Expires: 08/19/2025 Start: 08-19-2024 End: 11-19-2024 US for US OB 14+ weeks anatomy scan Imaging Routine Screening, , for anatomic survey Expected: 08/19/2024, Expires: 11/19/2024 [facility] Comment on above: Expected: 08/19/2024 , Expires: 11/19/2024 Start: 07-22-2024 End: 07-22-2025 Measurement of glucose 1 hour after glucose challenge for glucose tolerance test Glucose tolerance, 1 hour Lab Routine Diabetes mellitus screening Expected: 07/22/2024 (Approximate), Expires: 07/22/2025 [facility] Work Phone: Comment on above: Expected: 07/22/2024 (Approximate), Expires: 07/22/2025 Start: 07-22-2024 End: 07-22-2024 Patient encounter procedure [facility] Comment on above: Arrived Start: 06-19-2024 End: 06-19-2024 ambulatory 06/19/2024 2:30 PM EST Initial [facility] [address] [place] [address] [facility] Start: 06-19-2024 End: 06-19-2024 Professional / ancillary services management 06/19/2024 2:00 PM EST Ancillary Procedure [facility] [address] [place] [address] [facility] Start: 02-19-2024 End: 02-19-2024 Patient encounter procedure 02/19/2024 1:40 PM EST Office Visit [facility] [address] [place] [address] Maureen Feliz PA [address] [place] [address] Arrived [facility] Comment on above: Arrived Start: 01-16-2024 End: 01-16-2024 Patient encounter procedure 01/16/2024 4:00 PM EDT Consult [facility] [address] [place] [address] Miguel Hannon DO [address] [place] [address] Arrived [facility] Comment on above: Arrived Start: 12-25-2023 End: 2024 Antimullerian hormone (AMH) Antimullerian hormone (AMH) Lab Routine Female infertility PCOS (polycystic ovarian syndrome) Dysfunctional uterine bleeding Expected: 12/25/2023 (Approximate), Expires: 2024 [facility] Comment on above: Expected: 12/25/2023 (Approximate), Expires: 2024 Start: 12-25-2023 End: 2024 DHEA DHEA Lab Routine PCOS (polycystic ovarian syndrome) Expected: 12/25/2023 (Approximate), Expires: 2024 [facility] Comment on above: Expected: 12/25/2023 (Approximate), Expires: 2024 Start: 12-25-2023 End: 12-25-2023 Patient encounter procedure [facility] Comment on above: Arrived Start: 12-16-2023 Influenza vaccination Influenza Vacc ine (#1) [facility] Start: 12-11-2023 End: 12-11-2023 Patient encounter procedure 12/11/2023 8:00 AM EDT Procedure Visit [facility] Aristides Araiza DO [address] [facility] [address] [place] [phone] [facility] Start: 05-17-2017 Screening for malign ant neoplasm of cervix [facility] Start: 12-23-2012 Screening for malign ant neoplasm of cervix Pap Smear [facility] Start: 12-23-2010 DTaP,Tdap and Td Vaccines (1 - Tdap) DTaP,Tdap and Td Vaccines (1 - Tdap) [facility] Start: 12-23-2009 Adult BMI Follow Up Plan Adult BMI Follow Up Plan [facility] Start: 12-23-2009 Adult BMI Screening Adult BMI Screen ing [facility] Start: 2003 Depression Screening Depression Scre ening [facility] Start: 2003 Tobacco Screening Tobacco Screening [facility] CBC W Auto Different ial panel [...] unspecified formulation Aristides Araiza DO Work Phone: [facility] Payers Date Payer Category Payer Unknown [id number] 2024 Blue Cross Blue Shie ld Managed Care - Other [id number] 2024 Unknown [id number] 2023 Blue Cross Blue Shield [id number] 2023 Unknown [id number] 2022 Unknown 2021 Self-pay 2019 Unknown [id number] 1991 Unknown [id number] [id number] 1991 Unknown [id number] 2.16.840.1.922820.3.579.2.593 1991 Unknown [id number] 2.16840.1.481456.3.579.2.196 1991 Unknown [id number] 2.16.840.1.497888.3.579.2.196 1991 Unknown [id number] 2.16.840.1.577660.3.579.2.196 1991 Unknown [id number] 2.16.840.1.147973.3.579.2.173 1991 Unknown [id number] 2.16.840.1.397704.3.579.2.1286 1991 Unknown [id number] 2.16.840.1.837919.3.579.2.1258 1991 Unknown [id number] 2.16.840.1.578349.3.579.2.1258 1991 Unknown [id number] 2.16.840.1.167561.3.579.2.1258 1991 Unknown [id number] 2.16.840.1.819876.3.579.2.1258 1991 Unknown [id number] 2.16.840.1.719959.3.579.2.1258 1991 Unknown [id number] 2.16.840.1.215047.3.579.2.1258 1991 Unknown [id number] 2.16.840.1.531106.3.579.2.1258 1991 Unknown [id number] 2.16.840.1.092960.3.579.2.1258 1991 Unknown [id number] 2.16.840.1.414730.3.579.2.1258 1991 Unknown [id number] 2.16.840.1.398660.3.579.2.1258 1991 Unknown [id number] 2.16.840.1.707055.3.579.2.1258 1991 Unknown [id number] 2.16.840.1.963556.3.579.2.1258 1991 Unknown [id number] 2.16.840.1.077122.3.579.2.1258 1991 Unknown [id number] 2.16.840.1.439537.3.579.2.1258 1991 Unknown [id number] 2.16.840.1.301970.3.579.2.1285 1991 Unknown [id number] 2.16.840.1.837272.3.579.2.1285 1991 Unknown [id number] 2.16.840.1.072027.3.579.2.1286 1959 Unknown [id number] Social History Date Type Detail Facility Start: 11-19-2023 End: 11-28-2024 Tobacco smoking status NHIS Never smoked tobacco [facility] Start: 11-19-2023 End: 11-28-2024 Tobacco use and exposure Smokeless tobacco non-user [facility] Start: 12-25-2023 End: 12-23-2024 Alcoholic beverage intake Lifetime non-drinker (finding) [facility] Start: 11-19-2023 End: 12-25-2023 History of Social function [facility] Start: 11-19-2023 End: 12-25-2023 Tobacco use panel [facility] Start: 1990 Sex assigned at Not on file [facility] Start: 04-26-2024 [facility] Tobacco smoking stat [facility] Tobacco smoking consumption unknown [facility] Start: 11-11-2024 [facility] (finding[facility] Within the past 12 months we worried whether our food would run out before we got money to buy more. Never True [facility] Start: 11-28-2024 Alcoholic beverage intake Ex-drinker (finding) [facility] Medical Equipment Procedure Code Equipment Code Equipment Origin al Text Equipment Identifier Dates 1 strip by In Vi tro route Daily Use in the morning prior to breakfast, 1 hour after each meal for a total of 4times daily. [id number] Start: 11-10-2024 End: 12-10-2024 1 each by In Vit ro route Daily Use to check FSBS four times daily [id number] Start: 11-10-2024 End: 12-10-2024 Use daily for insulin [id number] Start: 11-28-2024 Clinical Notes 06-19-2022 to 12-23-2024 [...] mg, Daily RT Blood Glucose Monitoring Suppl ([employer] Glucometer) w/Device kit 1 kit, Does not apply, Daily, Use four times daily to check FSBS. In the morning prior to breakfast & 1 hour after each meal for a total of 4times daily. Continuous Glucose Sensor ([employer] G7 Sensor) misc 1 each, Does not [...] nursing note reviewed. Exam conducted with a crime lab analyst present. Vitals: Estimated body mass index is 40.01 kg/m as calculated from the following: Height as of 01/16/24: 6'. Weight as of this encounter: 295 lb. BP: 120/70 Patient's last menstrual period was 04/12/2024. ASSESSMENT & PLAN ICD-10-CM 1. 36 weeks gestation of ([facility]) Z3A.36 POCT urinalysis dipstick manually resulted 2. Third trimester ([facility]) Z34.93 POCT urinalysis dipstick manually resulted CULTURE, GROUP B STREP WITH SUSCEPTIBLITY CULTURE, GROUP B STREP WITH SUSCEPTIBLITY 3. Gestational diabetes mellitus (GDM), antepartum, gestational diabetes method of control unspecified ([facility]) O24.419 Patient is doing well but has [...] in this encounter [facility] 12-18-2024 Miscellaneous Notes RN spoke to Javid via phone. Javid is unable to connect to [employer] call with Magnus Thomason NP. Patient [...] Magnus Thomason NP. documented in this encounter [facility] 12-18-2024 Telephone encounter Note RN spoke to Javid via phone. Javid is unable to connect to [employer] call with Magnus Thomason NP. Patient [...] rescheduled to 12/25/24 with Magnus Thomason NP. [facility] 12-16-2024 History of Present illness Narrative [...] PLAN ICD-10-CM 1. 35 weeks gestation of ([facility]) Z3A.35 POCT urinalysis dipstick manually resulted 2. Third trimester ([facility]) Z34.93 POCT urinalysis dipstick manually resulted 3. Gestational diabetes mellitus (GDM), antepartum, gestational diabetes method of control unspecified ([facility]) O24.419 Return OB: Patient presents today for [...] in this encounter [facility] 12-09-2024 Miscellaneous Notes Called pt to discuss her insulin change for this week. Mary Ghislaine reviewed her blood sugars and would like her to increase her lantus in the evening to 16 units. Pt verbalized understanding, we will pull her report again next week. documented in this encounter [facility] 12-09-2024 Telephone encounter Note Called pt to discuss her insulin change for this week. Mary Ghislaine reviewed her blood sugars and would like her to increase her lantus in the evening to 16 units. Pt verbalized understanding, we will pull her report again next week. [facility] 12-03-2024 Miscellaneous Notes Called patient regarding Dexcom CGM report from 11/29 to 12/01/24 and had to leave a message. RADHA Mathur, reviewed patient's report and increased her Lantus dose to 12 units each evening. Will send patient a [employer] message as well and asked patient to confirm with us via phone or [employer] that she received the dose change information. [facility] 12-03-2024 Telephone encounter Note Called patient regarding Dexcom CGM report from 11/29 to 12/01/24 and had to leave a message. RADHA Mathur, reviewed patient's report and increased her Lantus dose to 12 units each evening. Will send patient a [employer] message as well and asked patient to confirm with us via phone or [employer] that she received the dose change information. [facility] 12-02-2024 History of Present illness Narrative [...] nursing note reviewed. Exam conducted with a crime lab analyst present. Vitals: Estimated body mass index is 39.3 kg/m as calculated from the following: Height as of 01/16/24: 6'. Weight as of this encounter: 289 lb 12.8 oz. BP: 114/76 Patient's last menstrual period was 04/12/2024. ASSESSMENT & PLAN ICD-10-CM 1. Third trimester ([facility]) Z34.93 POCT urinalysis dipstick manually resulted 2. 33 weeks gestation of ([facility]) Z3A.33 POCT urinalysis dipstick manually resulted 3. Gestational diabetes mellitus (GDM), antepartum, gestational diabetes method of control unspecified ([facility]) O24.419 Continuous Glucose Sensor (Dexcom G7 Sensor) [...] Pt to have repeat anatomy scan at [facility] on 12/11. Discussed delivery between 37-39 [...] No Have you been seen here at [facility] in a previous ? No Recent ER visits or hospitalizations? No Bring blood sugar log or meter with you today? (Please bring them with you for every visit at [facility]) Yes, Dexcom report Flu vaccine (Feb-June)? [...] more likely to fail compared to insulin. intermodal customer service data on children whose mothers took oral [...] CGM we will be reviewed weekly by [facility]. Status post diabetic education nutrition counseling at [facility] Detailed anatomy ultrasound scheduled for 12/11/2024 in [facility] Repeat growth ultrasound at 38 weeks gestation, through primary OB Recommend weekly testing for the remainder of , through primary OB Delivery recommendations : Recommend delivery at [id number] Discuss delivery if estimated weight is >4500g [...] developing diabetes later on. Follow up in [facility] in 2 weeks with provider visit DISPOSITION: At this point the patient is in complete care of her valuation consultant. Patient does have ultrasound and office visit scheduled with us. Thank you for allowing me to participate in the care of Javid Prasad. If there any questions please do not hesitate to contact us. Saul Granados MD Maternal- Medicine [facility] [address] [facility] [address] [place] [address] This document was created with [employer] technology. Though I make every effort to review the dictation as it is transcribed, on occasion the spoken word can be misinterpreted by the technology leading to inappropriate words, phrases, or sentences. This note is addressed to the requesting provider as a consultation for clinical guidance. Specific medical abbreviations are occasionally used and those are generally approved by the [place]?Board of?Obstetrics and?Gynecology?as well as?Ethan s abbreviations. The above plan of care was based solely on the diagnoses for which a consultation was requested. ?More frequent testing may be indicated based on her other medical/obstetrical conditions. The management of other or medical conditions is beyond the scope of requested consultation and will continue to be followed by the primary valuation consultant or primary care provider. Note to patient: [...] of the practitioner. documented in this encounter [facility] 11-26-2024 History of Present illness Narrative [...] morning and sched. documented in this encounter [facility] 11-26-2024 Miscellaneous Notes Called pt to let her know that Magnus Thomason reviewed her dexcom and would like her to start marking her fasting time and number. If she does know what her fasting numbers are and if they are consistently over 95 then she needs an appt to start medication. She can call and make that appt at [phone] option #3. It looks as though her fastings are running above target but would like to see what the actual numbers are running. documented in this encounter [facility] 11-26-2024 Telephone encounter Note Called pt to let her know that Magnus Thomason reviewed her dexcom and would like her to start marking her fasting time and number. If she does know what her fasting numbers are and if they are consistently over 95 then she needs an appt to start medication. She can call and make that appt at [phone] option #3. It looks as though her fastings are running above target but would like to see what the actual numbers are running. [facility] 11-25-2024 Miscellaneous Notes Called regarding food [...] meals. Asked that she call back at [phone] and let us know if she is having any consistent elevated blood sugars. documented in this encounter [facility] 11-25-2024 Telephone encounter Note Called regarding food [...] meals. Asked that she call back at [phone] and let us know if she is having any consistent elevated blood sugars. [facility] 11-20-2024 History of Present illness Narrative DIABETES [...] care for you: OB Provider Family Doctor Cook Italian Style Food Name: Dr. Alvin Hannon Name: Dr. Karena [...] first Is there anything about your culture, holiness, or personal beliefs we need to know about to care for you: Other Tracking Primary Language spoken: Croatian [22] Primary Language for learning: Croatian Are you currently in a relationship where you are physically hurt, threatened or made to fee afraid? [] Yes [] No Hospital Food Service Worker needed? [] Yes [] No Marital [...] Interpersonal Safety: Unknown (06/07/2023) Received from [facility] Fear of Current or [...] If yes, where: On thge following scale, [place] the number, which describes your current level [...] weekly Educational Level Masters Family issues stable Cultural/ethnic/taoism influences demies Exercise approved by MD? Yes Current Exercise program walking 5 miles Who prepares the meal Self Who purchase food at your home? Self and S.O Equipment use for cooking/food storage Has everything Food Assistance(Ex.WIC, Food [place]) Declined Dining out Yes Twice a week Appetite/Appetite changes Flucuates, better lately Weight History Stable Do you have cats at home? Infant Feeding Plans Breast Feeding If you have cats, who cleans the litter box? Cravings/Aversions/Pica Only food aversions to meat Nutrition Assessment Worksheet: Week/Weekend Food Recall Breakfast Croatian muffin with cream cheese or yogurt, water [...] time 38 minutes. [email or web address] History of Present illness Narrative Reason [...] nursing note reviewed. Exam conducted with a crime lab analyst present. Vitals: Estimated body mass index is 38.52 kg/m as calculated from the following: Height as of 01/16/24: 6'. Weight as of this encounter: 284 lb. BP: 112/70 Patient's last menstrual period was 04/12/2024. ASSESSMENT & PLAN ICD-10-CM 1. Third trimester ([facility]) Z34.93 Urine dip 2. 31 weeks gestation of ([facility]) Z3A.31 Urine dip 3. Gestational diabetes mellitus (GDM), antepartum, gestational diabetes method of control unspecified ([facility]) O24.419 Return OB: Patient presents today for a routine obstetrics appointment. Patient is currently 31w3d . Patient states she is doing well but has complaints of being tired due to current . Patient has verbalizes frequent movement. labor precautions was discussed/given and patient was instructed to perform kick counts three times a day. Pt being sent to [facility] to complete anatomy scan. RVOT and [...] PLAN ICD-10-CM 1. 29 weeks gestation of ([facility]) Z3A.29 POCT urinalysis dipstick manually resulted 2. Third trimester ([facility]) Z34.93 POCT urinalysis dipstick [...] History reviewed. No pertinent surgical history. : [employer] Tobacco Use: Low Risk (10/21/2024) Patient History Smoking Tobacco Use: Never Smokeless Tobacco Use: Never Passive Exposure: Not on file Alcohol Use: Not on file Financial Resource Strain: Not on file Food Insecurity: Not on file Transportation Needs: Not on file Physical Activity: Not on file Stress: Not on file Social Connections: Not on file Intimate Partner Violence: Unknown (06/07/2023) [place] Safety & Environment Fear of Current or [...] normal affect Orientation (more content not included)... [facility] 10-21-2024 History of Present illness Narrative [...] ASSESSMENT & PLAN ICD-10-CM 1. Second trimester ([facility]) Z34.92 POCT urinalysis dipstick manually resulted 2. 27 weeks gestation of ([facility]) Z3A.27 POCT urinalysis dipstick manually [...] nursing note reviewed. Exam conducted with a crime lab analyst present. Vitals: Estimated body mass index [...] Narrative Reason for Appointment: Patient ID: Javid Parsad is a 33 y.o. female who presents [...] nursing note reviewed. Exam conducted with a crime lab analyst present. Vitals: Estimated body mass index [...] or undercooked meat, and stay away from [facility]. Patient has been consulted regarding any [...] illness Narrative Reason for Appointment: Patient ID: aJvid Prasad is a 33 y.o. female who [...] at [facility] with Dr. Hannon. Pathology results was reviewed [...] at [facility]. MEDICATIONS Current Outpatient Medications Medication Instructions metFORMIN [...] reviewed, and patient is to proceed to [facility] OR. Follow Up: Patient is to [...] nursing note reviewed. Exam conducted with a crime lab analyst present. Vitals: Estimated body mass index [...] on file Intimate Partner Violence: Unknown (06/07/2023) [place] Safety & Environment Fear of Current or [...] not heard Diastolic (more content not included)... [facility] 06-19-2022 Note This is a Telephone [...] dreaming in association with her activity. 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 Nutrition/Health Caffeine intake amount: [...] Isabella Grant 06/19/22 15:39 EST [facility] Evaluation note Diagnosis Pre-op examination Uterine [...] of control unspecified documented in this encounter [facility] Diagnosis Insulin controlled gestational diabetes mellitus (GDM) in third trimester- Primary Prediabetes in mother during Family history of type 2 diabetes mellitus Family history of diabetes mellitus Obesity affecting , antepartum, unspecified obesity type 32 weeks gestation of documented in this encounter [facility]* Diagnosis Third trimester ([facility]HS-HCC) [...] on filedocumented in this encounterMer[facility] SystemInstructionsNot on filedocumented in this encounterMercy Health St[facility] SystemInstructionsNot on filedocumented in this encounterMer[facility] SystemInstructionsNot on filedocumented in this encounterMer[facility] InstructionsNot on filedocumented in this encounterMer[facility] InstructionsNot on filedocumented in this encounterMer[facility] Summary Purpose Family History No [...] DATE CREATED AUTHOR 07/04/2021 [facility] DATE CREATED AUTHOR AUTHOR'S ORGANIZ ATION 2021 [facility] DATE CREATED AUTHOR AUTHOR'S ORGANIZ ATION 06/21/2022 [facility] DATE CREATED AUTHOR AUTHOR'S ORGANIZ ATION 12/15/2022 [facility] DATE CREATED AUTHOR AUTHOR'S ORGANIZ ATION 11/30/2024 [facility] DATE CREATED AUTHOR AUTHOR'S ORGANIZ ATION 12/13/2024 [facility] DATE CREATED AUTHOR AUTHOR'S ORGANIZ ATION 12/17/[address] [facility] EP[facility] DATE CREATED AUTHOR AUTHOR'S ORGANIZ ATION 12/20/2024 [facility] Care Teams (unrecognized sec tion and content) Fashion Adviser Relationship Specialty Start Date End Date Adebayo Solares MD [address] [place] [address] PCP - General Family Medicine 11/19/23 Fashion Adviser Relationship Specialty Start Date End Date Adebayo Solares MD [address] [place] [address] PCP - General Family Medicine 11/19/23 Fashion Adviser Relationship Specialty Start Date End Date Adebayo Solares MD [address] [place] [address] PCP - General Family Medicine 11/19/23 Fashion Adviser Relationship Specialty Start Date End Date Adebayo Solares MD [address] [place] [address] PCP - General Family Medicine 11/19/23 Fashion Adviser Relationship Specialty Start Date End Date Adebayo Solares MD [address] [place] [address] PCP - General Family Medicine 11/19/23 Fashion Adviser Relationship Specialty Start Date End Date Adebayo Solares MD [address] [place], [place] [phone] (Work) PCP - General Family Medicine 11/19/23 Fashion Adviser Relationship Specialty Start Date End Date Adebayo Solares MD [address] [place], [place] [phone] (Work) PCP - General Family Medicine 11/19/23 Fashion Adviser Relationship Specialty Start Date End Date Adebayo Solares MD [address] [place], [place] [phone] (Work) PCP - General Family Medicine 11/19/23 Fashion Adviser Relationship Specialty Start Date End Date Adebayo Solares MD [address] [place], [place] [phone] (Work) PCP - General Family Medicine 11/19/23 Fashion Adviser Relationship Specialty Start Date End Date Adebayo Solares MD [address] [place] [address] PCP - General Family Medicine 11/19/23 Fashion Adviser Relationship Specialty Start Date End Date Adebayo Solares MD [address] [place] [address] PCP - General Family Medicine 11/19/23 Fashion Adviser Relationship Specialty Start Date End Date Adebayo Solares MD [address] [place] [address] PCP - General Family Medicine 11/19/23 Fashion Adviser Relationship Specialty Start Date End Date Adebayo Solares MD [address] [place] [address] PCP - General Family Medicine 11/19/23 Fashion Adviser Relationship Specialty Start Date End Date Adebayo Solares MD [address] [place] [address] PCP - General Family Medicine 11/19/23 Fashion Adviser Relationship Specialty Start Date End Date Adebayo Solares MD [address] [place] [address] PCP - General Family Medicine 11/19/23 Fashion Adviser Relationship Specialty Start Date End Date Adebayo Solares MD [address] [place] [address] PCP - General Family Medicine 11/19/23 Fashion Adviser Relationship Specialty Start Date End Date Adebayo Solares MD [address] [place] [address] PCP - General Family Medicine 11/19/23 Reason [...] of control unspecified Miguel Hannon R, DO [address] [place] [address] [place] [address] Phone: tel: fax: Maternal- Medicine at [facility] [address] [place] [address] Phone: tel: fax: Referral ID Status Reason Start Date Expiration Date Visits Requested Visits Authorized [id number] Pending Review Specialty Services Required 11/11/2024 11/11/2025 [...] BE BASED ON THE PRIMARY CLINICAL RECORDS. [facility]. provides no warranty or guarantee of the accuracy or completeness of information in this document.
== END 2024-12-23 20:32 | disposition home or self-care (01) ==
LOC: FBCO 19:59 → FBC 20:01
PROVIDERS: PCP Family Medicine; Visit Provider Obstetrics & Gynecology
DX: O24.419 Gestational diabetes mellitus in pregnancy, unspecified control (principal); Z3A.36 36 weeks gestation of pregnancy
CPT/HCPCS: 59025; 87081

== ENCOUNTER 2024-12-26 19:13 | Outpatient (OUT) | payer BC, SELFPAY ==
--- NOTE | 2024-12-26 19:15 | US_ITS ---
[place] [id number] Patient Name: JAVID TRIPLETT MRN: [id number] date: 1990 Sex: F Assigned Patient Location: [facility] Current Patient Location: Accession/Order Number: [id number] Exam Date: 12/26/2024 19:20 Report Date: 12/26/2024 21:30 At the request of: KENN MCHUGH DO Procedure: US OB BPP w non-stress Ultrasound biophysical profile HISTORY: Gestational diabetes Adequate breathing movement, gross body movement, tone and amniotic fluid volume for total score of 8 out of 8. The amniotic fluid index is 14.87 cm within normal limits. The heart rate 127 bpm. US/US OB BPP w non-stress IMPRESSION: Adequate ultrasound biophysical profile Impression dictated by: Barry Hough M.D. 12/26/2024 9:30 PM Dictation Location: [place] [address] Electronically authenticated by: [id number] Y Date: 12/26/2024 21:30
--- OUTSIDE RECORDS SUMMARY | 2024-12-26 19:18 | XMS_ITS | CCD ---
Author Organization [facility] Care Team Providers Care Digital Content Coordinator Name Role Phone BECK, DR ADEBAYO Oropeza [...] Attending Unavailable SolaresAdebayo Primary Care Unavailable Jaret STORM SASH MAKER-CUSTOMER SERV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Isabella Attending Unavaila ble Solares, Adebayo Primary Care Unavailable Jaret STORM SASH MAKER-CUSTOMER SERV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, Isabella Sepulveda Attending Unavaila ble Solares, Adebayo Primary Care Unavailable SolaresAdebayo Consulting Unavailable SolaresAdebayo Referring Unavailable EMEKA HERNANDEZ Referring Unavailable Solares Adebayo GOYAL Primary Care Provider Unavailable Primary Care Provider Unavailfidel e MIGUEL HANNON R Referring Unavailable MAGNUS THOMASON Attending Unavailable RIDDHI, MIGUEL R Referring Unavailable SAUL GRANADOS Attending Unavailable RIDDHI, MIGUEL R Referring Unavailable NAOMIE CHAHAL Attending Unavailable RIDDHI, MIGUEL R Referring Unavailable RIDDHI, MIGUEL Attending Unavailable PAULA, MAUREEN Attending Unavailable RIDDHI, MIGUEL Attending Unavailable RIDDHI, MIGUEL Attending Unavailable PAULA, MAUREEN Attending Unavailable PAULA, MAUREEN Attending Unavailable RIDDHI, MIGUEL Attending Unavailable RIDDHI, MIGUEL Attending Unavailable RIDDHI, MIGUEL Attending Unavailable PAULA, MAUREEN Attending Unavailable RIDDHI, MIGUEL Attending Unavailable TRENT, MARIANA Attending Unavailable CHALINO, VIRAL Referring Unavailable TRENT, MARIANA Referring Unavailable TRENT, MARIANA Referring Unavailable TRENT, MARIANA Referring Unavailable TRENT, MARIANA Referring Unavailable CHALINO, VIRAL Referring Unavailable TRENT, MARIANA Referring Unavailable MARIANA NEWMAN Referring Unavailable VIRAL ALLRED Referring Unavailable MARIANA NEWMAN Referring Unavailable MARIANA NEWMAN Referring Unavailable CHALINOVIRAL Referring Unavailable Allergies Allergy Classification Reported Allergen(s) Allergy Type Date of Onset Reaction(s) Facility (1 source) No Known Medication Allergies; Translations: [No Known Medication Allergies] Propensity to adverse reactions to drug (disorder) [facility] Repository Medications Current Medications Medication Drug [...] ml insulin glargine 100 unt/ml pen injector (20 sources) Insulin Analog Start: 12-18-2024 End: 12-25-2024 inject 2 [IU] by subcutaneous injection in the evening insulin glargine (LANTUS SOLOSTAR U-100 INSULIN) 100 unit/mL (3 mL) insulin pen Inject 28 units of insulin in the evening, subcutaneously, prime 2 units 15 mL 11 12/25/2024 Active Start: 12-03-2024 End: 12-09-2024 insulin glargine [...] antepartum, gestational diabetes method of control unspecified ([facility]) , Elevated glucose tolerance test Apply [...] Active PNV no.153/FA/om3/dha/epa/fi sh ( GUMMIES ORAL) (12 sources) take 2 doses by mouth in [...] tolerance complicating ; childbirth; or the puerperium (16 sources) Gestational diabetes mellitus; Translations: [Gestational diabetes [...] Test Name Value Interpretation Reference Range Facility Orders Onlyon 12-23-2024 Orders Only [id number] Javid Prasad 1990 F Date Provider Department Center 12/23/2024 [facility] Family History Problem Relation Age of Onset Atrial fibrillation Mother Diabetes Father Kidney disease Father Heart attack Maternal Grandmother Family Status - Relation Status Age at Mother Alive Father Alive Maternal Grandmother Normal [facility] Urinalysis macro (dipstick) panel (U)on 12-23-2024 Bilirubin, UA Negative Negative - 4(70) +++ mg/dL [facility] Blood, UA Negative Negative - 50 Osmin/mcL [facility] Clarity, UA Clear [facility] Color, UA Yellow [facility] Glucose, UA Negative Negative - 1999(110) ++++ mg/dL [facility] Interpretation and review of laboratory results Abnormal [facility] Ketones, UA Negative Negative - 160(16) ++++ mg/dL [facility] Leukocytes, UA Positive Negative - 500+++ Oumou/mcL [facility] Comment on above: 2+ Nitrite, UA Negative Negative - Positive [facility] pH, UA 6 5 - 9 [facility] Protein, UA Positive Negative - 1999(20) ++++ mg/dL [facility] Spec Grav, UA 1.015 1 - 1.03 [facility] Urobilinogen, UA 1.0 0.2 - 12 mg/dL [facility] US OB BPP W NON-STRESS on 12-19-2024 [place] [address] Ultrasound Report Signed Patient: JAVID PRASAD MR#: [id number] : 1990 Acct:[id number] Age/Sex: 33 / F ADM Date: 12/19/24 Loc: US Attending Dr: Miguel Hannon D.O. Ordering Physician: Miguel Hannon D.O. Date of Service: 12/19/24 Procedure(s): US OB BPP w non-stress Accession Number(s): [id number] cc: Miguel Hannon D.O.; ADEBAYO SOLARES D.O. [place] [address] Patient Name: JAVID PRASAD MRN: [id number]:[id number] date: 1990 Sex: F Assigned Patient Location: [facility] Current Patient Location: Accession/Order Number: [id number] Exam Date: 12/19/2024 19:14 Report Date: 12/19/2024 [...] Deutsch M.D. 12/19/2024 9:48 PM Dictation Location: [facility] Electronically authenticated by: [id number] Y Date: 12/19/2024 21:48 Dictated By: Sergo Deutsch D.O. Signed By: 12/19/242149 DD/ 47 TD/TT: School Treasurer: [employer] Radiology, Radiologist, MD - 12/19/2024 [place] [address] Ultrasound Report Signed Patient: JAVID PRASAD MR#: [id number] : 1990 Acct:[id number] Age/Sex: 33 / F ADM Date: 12/19/24 Loc: US Attending Dr: Miguel Hannon D.O. Ordering Physician: Miguel Hannon D.O. Date of Service: 12/19/24 Procedure(s): US OB BPP w non-stress Accession Number(s): [id number] cc: Miguel Hannon D.O.; ADEBAYO SOLARES D.O. The [place] [id number] Patient Name: JAVID PRASAD MRN: [employer]:[id number] date: 1990 Sex: F Assigned Patient Location: [facility] Current Patient Location: Accession/Order Number: [id number] Exam Date: 12/19/2024 19:14 Report Date: 12/19/2024 [...] Deutsch M.D. 12/19/2024 9:48 PM Dictation Location: [place] [address] Electronically authenticated by: [id number] Y Date: 12/19/2024 21:48 Dictated By: Sergo Deutsch D.O. Signed By: 12/19/242149 DD/ 47 TD/TT: School Treasurer: [facility] Study observation (narrative) [facility] US OB BPP W NON-STRESS Ordered By: Radiologist Radiology on 12-19-2024 [facility] Work Phone: Urinalysis macro (dipstick) panel (U)on 12-16-2024 Bilirubin, UA Negative Negative - 4(70) +++ mg/dL [facility] Blood, UA Negative Negative - 50 Osmin/mcL [facility] Clarity, UA Clear [facility] Color, UA Yellow [facility] Glucose, UA Negative Negative - 1999(110) ++++ mg/dL [facility] Interpretation and review of laboratory results Abnormal [facility] Ketones, UA Negative Negative - 160(16) ++++ mg/dL [facility] Leukocytes, UA Positive Negative - 500+++ Oumou/mcL [facility] Nitrite, UA Negative Negative - Positive [facility] pH, UA 6 5 - 9 [facility] Protein, UA Negative Negative - 1999(20) ++++ mg/dL [facility] Spec Grav, UA 1.015 1 - 1.03 [facility] Urobilinogen, UA 1.0 0.2 - 12 mg/dL [facility] US OB BPP W NON-STRESS on 12-12-[address] [address] Ultrasound Report Signed Patient: JAVID PRASAD MR#: [id number] : 1990 Acct:[id number] Age/Sex: 33 / F ADM Date: 12/12/24 Loc: [facility] 250-[address]: Miguel Hannon D.O. Ordering Physician: Miguel Hannon D.O. Date of Service: 12/12/24 Procedure(s): US OB BPP w non-stress Accession Number(s): [id number] cc: Miguel Hannon D.O.; ADEBAYO SOLARES D.O. The [place] [id number] Patient Name: JAVID PRASAD MRN: [employer]:[id number] date: 1990 Sex: F Assigned Patient Location: [facility] Current Patient Location: [facility] Accession/Order Number: [id number] Exam Date: 12/12/2024 19:06 Report Date: 12/12/2024 [...] Mcdermott M.D. 12/12/2024 8:20 PM Dictation Location: [place] [address] Electronically authenticated by: [id number] Y Date: 12/12/2024 20:20 Dictated By: Tutu Mcdermott M.D. Signed By: 12/12/242022 DD/ 19 TD/TT: School Treasurer: [employer] Radiology, Radiologist, - 12/12/2024 [place] [address] Ultrasound Report Signed Patient: JAVID PRASAD MR#: [id number] : 1990 Acct:[id number] Age/Sex: 33 / F ADM Date: 12/12/24 Loc: [facility] 250-[address]: Miguel Hannon D.O. Ordering Physician: Miguel Hannon D.O. Date of Service: 12/12/24 Procedure(s): US OB BPP w non-stress Accession Number(s): [id number] cc: Miguel Hannon D.O.; ADEBAYO SOLARES D.O. [place] [address] Patient Name: JAVID PRASAD MRN: [id number] date: 1990 Sex: F Assigned Patient Location: [facility] Current Patient Location: [facility] Accession/Order Number: [id number] Exam Date: 12/12/2024 19:06 Report Date: 12/12/2024 [...] Mcdermott M.D. 12/12/2024 8:20 PM Dictation Location: [place] [address] Electronically authenticated by: [id number] Y Date: 12/12/2024 20:20 Dictated By: Tutu Mcdermott M.D. Signed By: 12/12/242022 DD/ 19 TD/TT: School Treasurer: [facility] Study observation (narrative) [facility] US OB BPP W NON-STRESS Ordered By: Radiologist Radiology on 12-12-2024 [facility] [employer] Work Phone: US OB BPP W NON-STRESS on 12-06-[address] [address] Ultrasound Report Signed Patient: JAVID PRASAD MR#: [id number] : 1990 Acct:[id number] Age/Sex: 33 / F ADM Date: 12/05/24 Loc: US Attending Dr: Miguel Hannon D.O. Ordering Physician: Miguel Hannon D.O. Date of Service: 12/05/24 Procedure(s): US OB BPP w non-stress Accession Number(s): [id number] cc: Miguel Hannon D.O.; ADEBAYO SOLARES D.O. [address] [address] Patient Name: JAVID PRASAD MRN: [id number] date: 1990 Sex: F Assigned Patient Location: [facility] Current Patient Location: [facility] Accession/Order Number: [id number] Exam Date: 12/05/2024 19:12 Report Date: 12/06/2024 [...] Mcdermott M.D. 12/06/2024 5:01 PM Dictation Location: [place] [address] Electronically authenticated by: [id number] Y Date: 12/06/2024 17:01 Dictated By: Tutu Mcdermott M.D. Signed By: 12/06/242015 DD/ 00 TD/TT: School Treasurer: [employer] Radiology, Radiologist, - 12/06/2024 [place] [address] Ultrasound Report Signed Patient: JAVID PRASAD MR#: [id number] : 1990 Acct:[id number] Age/Sex: 33 / F ADM Date: 12/05/24 Loc: US Attending Dr: Miguel Hannon D.O. Ordering Physician: Miguel Hannon D.O. Date of Service: 12/05/24 Procedure(s): US OB BPP w non-stress Accession Number(s): [id number] cc: Miguel Hannon D.O.; ADEBAYO SOLARES D.O. The [place] [address] Patient Name: JAVID PRASAD MRN: [employer]:[id number] date: 1990 Sex: F Assigned Patient Location: [facility] Current Patient Location: [facility] Accession/Order Number: [id number] Exam Date: 12/05/2024 19:12 Report Date: 12/06/2024 [...] Mcdermott M.D. 12/06/2024 5:01 PM Dictation Location: [place] [address] Electronically authenticated by: [id number] Y Date: 12/06/2024 17:01 Dictated By: Tutu Mcdermott M.D. Signed By: 12/06/242015 DD/ 00 TD/TT: School Treasurer: [facility] Study observation (narrative) [facility] US OB BPP W NON-STRESS Ordered By: Radiologist Radiology on 12-06-2024 [facility] Work Phone: Urinalysis macro (dipstick) panel (U)on 12-02-2024 Bilirubin, UA Negative Negative - 4(70) +++ mg/dL [facility] Blood, UA Negative Negative - 50 Osmin/mcL [facility] Clarity, UA Clear [facility] re Color, UA Yellow [facility] e Glucose, UA Negative Negative - 1999(110) ++++ mg/dL [facility] Interpretation and review of laboratory results Abnormal [facility] Ketones, UA Negative Negative - 160(16) ++++ mg/dL [facility] Leukocytes, UA Positive Negative - 500+++ Oumou/mcL [facility] Nitrite, UA Negative Negative - Positive [facility] pH, UA 6 5 - 9 [facility] e Protein, UA Negative Negative - 1999(20) ++++ mg/dL [facility] Spec Grav, UA 1.025 1 - 1.03 [facility] Urobilinogen, UA 1.0 0.2 - 12 mg/dL [facility] POCT Hemoglobin A1con 2024 HbA1c (Bld) [Mass fraction] 5.7 % 4 - 7 % [facility] US OB BPP W NON-STRESS on 11-27-[address] [address] Ultrasound Report Signed Patient: JAVID PRASAD MR#: [id number] : 1990 Acct:[id number] Age/Sex: 33 / F ADM Date: 11/27/24 Loc: US Attending Dr: Miguel Hannon D.O. Ordering Physician: Miguel Hannon D.O. Date of Service: 11/27/24 Procedure(s): US OB BPP w non-stress Accession Number(s): [id number] cc: Miguel Hannon D.O.; ADEBAYO SOLARES D.O. The [place] [id number] Patient Name: JAVID PRASAD MRN: [employer]:[id number] date: 1990 Sex: F Assigned Patient Location: [facility] Current Patient Location: Accession/Order Number: [id number] Exam Date: 11/27/2024 23:39 Report Date: 11/27/2024 [...] Deutsch M.D. 11/27/2024 11:40 PM Dictation Location: [place] [address] Electronically authenticated by: [id number] Y Date: 11/27/2024 23:40 Dictated By: Sergo Deutsch D.O. Signed By: 11/27/24 2342 DD/ 39 TD/TT: School Treasurer: [employer] Radiology, Radiologist, MD - 11/27/2024 The [place] [id number] Ultrasound Report Signed Patient: JAVID PRASAD MR#: [id number] : 1990 Acct:[id number] Age/Sex: 33 / F ADM Date: 11/27/24 Loc: US Attending Dr: Miguel Hannon D.O. Ordering Physician: Miguel Hannon D.O. Date of Service: 11/27/24 Procedure(s): US OB BPP w non-stress Accession Number(s): [id number] cc: Miguel Hannon D.O.; ADEBAYO SOLARES D.O. [place] [id number] Patient Name: JAVID PRASAD MRN: [id number] date: 1990 Sex: F Assigned Patient Location: [facility] Current Patient Location: Accession/Order Number: [id number] Exam Date: 11/27/2024 23:39 Report Date: 11/27/2024 [...] Deutsch M.D. 11/27/2024 11:40 PM Dictation Location: [facility] Electronically authenticated by: [id number] Y Date: 11/27/2024 23:40 Dictated By: Sergo Deutsch D.O. Signed By: 11/27/242341 DD/ 39 TD/TT: School Treasurer: [facility] Study observation (narrative) [facility] US OB BPP W NON-STRESS Ordered By: Radiologist Radiology on 11-27-2024 [facility]: Urinalysis macro (dipstick) panel (U)on 11-18-2024 Bilirubin, UA Negative Negative - 4(70) +++ mg/dL [facility] Blood, UA Negative Negative - 50 Osmin/mcL [facility] Clarity, UA Clear [facility], UA Light Yellow [facility] are Glucose, UA Trace Negative - 2000(110) ++++ mg/dL [facility] Interpretation and review of laboratory results Normal [facility] Ketones, UA Negative Negative - 160(16) ++++ mg/dL [facility] Leukocytes, UA Negative Negative - 500+++ Oumou/mcL [facility] Nitrite, UA Negative Negative - Positive [facility] pH, UA 6 5 - 9 [facility] Health[facility] Protein, UA Negative Negative - 2000(20) ++++ mg/dL [facility] Spec Grav, UA 1.015 1 - 1.03 [facility] care Urobilinogen, UA 4.0 0.2 - 12 mg/dL [facility] US OB INCOMPLETE ANATOMYon 0 11-14-2024 [place] [address] Ultrasound Report Signed Patient: JAVID PRASAD MR#: [id number] : 1990 Acct:[id number] Age/Sex: 33 / F ADM Date: 11/13/24 Loc: US Attending Dr: Miguel Hannon D.O. Ordering Physician: Miguel Hannon D.O. Date of Service: 11/13/24 Procedure(s): US OB incomplete anatomy Accession Number(s): [id number] cc: Miguel Hannon D.O.; ADEBAYO SOLARES D.O. [place] [id number] Patient Name: JAVID PRASAD MRN: [id number] date: 1990 Sex: F Assigned Patient Location: Current Patient Location: Accession/Order Number: [id number] Exam Date: 11/14/2024 09:56 Report Date: 11/14/2024 [...] Jr., D.O. 11/14/2024 10:06 AM Dictation Location: [place] [address] Electronically authenticated by: [id number] Y Date: 11/14/2024 10:06 Dictated By: Mark Anthony Conner M.D. Signed By: 11/14/24 1009 DD/ 1006 TD/TT: School Treasurer: [employer] Radiology, Radiologist, MD - 11/14/2024 [place] [address] Ultrasound Report Signed Patient: JAVID PRASAD MR#: [id number] : 1990 Acct:[id number] Age/Sex: 33 / F ADM Date: 11/13/24 Loc: US Attending Dr: Miguel Hannon D.O. Ordering Physician: Miguel Hannon D.O. Date of Service: 11/13/24 Procedure(s): US OB incomplete anatomy Accession Number(s): [id number] cc: Miguel Hannon D.O.; ADEBAYO SOLARES D.O. The [place] [id number] Patient Name: JAVID PRASAD MRN: [employer]:[id number] date: 1990 Sex: F Assigned Patient Location: US Current Patient Location: Accession/Order Number: [id number] Exam Date: 11/14/2024 09:56 Report Date: 11/14/2024 [...] body habitus. Impression dictated by: Mark Anthony Connre Jr., D.O. 11/14/2024 10:06 AM Dictation Location: [place] [address] Electronically authenticated by: [id number] Y Date: 11/14/2024 10:06 Dictated By: Mark Anthony Conner M.D. Signed By: 11/14/24 1009 DD/ 1006 TD/TT: School Treasurer: [facility] Study observation (narrative) [facility] US OB INCOMPLETE ANATOMYOrde red By: Radiologist Radiology on 11-14-2024 [facility] [employer] Work Phone: GLUCOSE TOLERANCE 3 HOURon 0 11-10-2024 GLUCOSE TOLERANCE 3 HOUR High mg/dL [facility] Comment on above: GLU FAST 113H (<95) Col: 11/10/24 0845 GLU 1HR 208H (<180) Col: 11/10/24 0945 GLU 2HR 152 (<155) Col: 11/10/24 1052 GLU 3HR 81 (<140) Col: 11/10/24 1147 Interpretation and review of laboratory results Abnormal [facility] [employer] Urinalysis macro (dipstick) panel (U)on 11-03-2024 Bilirubin, UA Negative Negative - 4(70) +++ mg/dL [facility] Blood, UA Negative Negative - 50 Osmin/mcL [facility] Clarity, UA Clear [facility] Color, UA Yellow [facility] Glucose, UA Positive Negative - 1999(110) ++++ mg/dL [facility] Interpretation and review of laboratory results Abnormal [facility] Ketones, UA Negative Negative - 160(16) ++++ mg/dL [facility] Leukocytes, UA Negative Negative - 500+++ Oumou/mcL [facility] Nitrite, UA Negative Negative - Positive [facility] pH, UA 7 5 - 9 [facility] e Protein, UA Trace Negative - 2000(20) ++++ mg/dL [facility] Spec Grav, UA 1.02 1 - 1.03 [facility] Urobilinogen, UA 1.0 0.2 - 12 mg/dL [facility] US OB GROWTHon 10-31-[address] [address] Ultrasound Report Signed Patient: JAVID PRASAD MR#: [id number] : 1990 Acct:[id number] Age/Sex: 33 / F ADM Date: 10/30/24 Loc: US Attending Dr: Maureen Feliz Ordering Physician: Maureen Feliz Date of Service: 10/30/24 Procedure(s): US OB growth Accession Number(s): [id number] cc: Maureen Feliz; ADEBAYO SOLARES D.O. [address] [address] Patient Name: JAVID PRASAD MRN: [id number]:[id number] date: 1990 Sex: F Assigned Patient Location: Current Patient Location: Accession/Order Number: [id number] Exam Date: 10/31/2024 07:37 Report Date: 10/31/2024 [...] Crow M.D. 10/31/2024 7:41 AM Dictation Location: [place] [address] Electronically authenticated by: [id number] Y Date: 10/31/2024 07:41 Dictated By: Katarzyna Crow M.D. Signed By: 10/31/24 0744 DD/ 0741 TD/TT: School Treasurer: [employer] Radiology, Radiologist, MD - 10/31/2024 [place] [address] Ultrasound Report Signed Patient: JAVID PRASAD MR#: [id number] : 1990 Acct:[id number] Age/Sex: 33 / F ADM Date: 10/30/24 Loc: US Attending Dr: Maureen Feliz Ordering Physician: Maureen Feliz Date of Service: 10/30/24 Procedure(s): US OB growth Accession Number(s): [id number] cc: Maureen Feliz; ADEBAYO SOLARES D.O. The [place] [id number] Patient Name: JAVID PRASAD MRN: [employer]:[id number] date: 1990 Sex: F Assigned Patient Location: Current Patient Location: Accession/Order Number: [id number] Exam Date: 10/31/2024 07:37 Report Date: 10/31/2024 [...] Crow M.D. 10/31/2024 7:41 AM Dictation Location: [place] [address] Electronically authenticated by: [id number] Y Date: 10/31/2024 07:41 Dictated By: Katarzyna Crow M.D. Signed By: 10/31/24 0744 DD/ 0741 TD/TT: School Treasurer: [facility] Study observation (narrative) [facility] US OB GROWTHOrdered By: Layne ybarra Radiology on 10-31-2024 [facility] Work Phone: Office Visiton 10-21-2024 Follow-up visit [id number] Javid Prasad 1990 F Date Provider Department Center 10/21/2024 [facility] Family History Problem Relation Age of Onset Atrial fibrillation Mother Diabetes Father Kidney disease Father Heart attack Maternal Grandmother Family Status - Relation Status Age at Mother Alive Father Alive Maternal Grandmother Level of Service:33604 [place] OFFICE/OUTPATIENT ESTABLISHED LOW MDM 20 MIN Normal [facility] Urinalysis macro (dipstick) panel (U)on 10-21-2024 Bilirubin, UA Negative Negative - 4(70) +++ mg/dL [facility] Blood, UA Negative Negative - 50 Osmin/mcL [facility] Healthcare Clarity, UA Clear [facility] Color, UA Yellow [facility] Glucose, UA Negative Negative - 1999(110) ++++ mg/dL [facility] Interpretation and review of laboratory results Abnormal [facility] Ketones, UA Positive Negative - 160(16) ++++ mg/dL [facility] Leukocytes, UA Negative Negative - 500+++ Oumou/mcL [facility] Nitrite, UA Negative Negative - Positive [facility] pH, UA 5.5 5 - 9 [facility] Protein, UA Negative Negative - 1999(20) ++++ mg/dL [facility] Spec Grav, UA 1.02 1 - 1.03 [facility] Urobilinogen, UA 1.0 0.2 - 12 mg/dL [facility] US OB 14+ WEEKS ANATOMY [...] II, MD, PHD at 18-Sep-2024 08:49:14 AM [facility] Normal Not Available Comment on above: Order Comment: US OB ANATOMY SINGLE W US OB CERVICAL LENGTH Estimated Date of Delivery: 01/17/25 Gestational Age as of 08/19/2024: 18w3d Urinalysis macro (dipstick) panel (U)on 09-16-2024 Bilirubin, UA Negative Negative - 4(70) +++ mg/dL [facility] Blood, UA Negative Negative - 50 Osmin/mcL [facility] Clarity, UA Clear [facility] re Color, UA Yellow [facility] e Glucose, UA Negative Negative - 1999(110) ++++ mg/dL [facility] Interpretation and review of laboratory results Normal [facility] Ketones, UA Negative Negative - 160(16) ++++ mg/dL [facility] Leukocytes, UA Negative Negative - 500+++ Oumou/mcL [facility] Nitrite, UA Negative Negative - Positive [facility] pH, UA 6 5 - 9 [facility] Protein, UA Negative Negative - 1999(20) ++++ mg/dL [facility] Spec Grav, UA 1.025 1 - 1.03 [facility] Urobilinogen, UA 0.2 0.2 - 12 mg/dL [facility] GLUCOSE TOLERANCE 3 HOURon 0 08-23-2024 GLUCOSE TOLERANCE 3 HOUR High mg/dL [facility] Comment on above: GLU FAST 110H (<95) Col: 08/23/24 0738 GLU 1HR 173 (<180) Col: 08/23/24 0839 GLU 2HR 131 (<155) Col: 08/23/24 0939 GLU 3HR 67 (<140) Col: 08/23/24 1040 Interpretation and review of laboratory results Abnormal [facility] RECURRENT VAGINITIS (HTRX)on 08-20-2024 ATOPOBIUM VAGINAE 0 [facility] ATOPOBIUM VAGINAE Not detected [facility] BVAB 2,3 (BACTERIAL VAGINOSIS ASSOCIATED BACTERIA 2, 3); MOBILUNCUS SPP 0 [facility] BVAB 2,3 (BACTERIAL VAGINOSIS ASSOCIATED BACTERIA 2, 3); MOBILUNCUS SPP Not detected [facility] AGUSTIN ALBICANS, PARAPSILOSIS, TROPICALIS 0 [facility] Healthcare AGUSTIN ALBICANS, PARAPSILOSIS, TROPICALIS Not detected [facility] Healthcare AGUSTIN GLABRATA 0 [facility] Hea lthcare AGUSTIN GLABRATA Not [facility] AGUSTIN KRUSEI 0 [facility] Healt hcare AGUSTIN KRUSEI Not detected [facility] lthcare CHLAMYDIA TRACHOMATIS 0 [facility] CHLAMYDIA TRACHOMATIS Not detected N [facility] GARDNERELLA VAGINALIS 0 [facility] GARDNERELLA VAGINALIS Not detected N [facility] MEGASPHAERA (TYPES 1, 2) 0 [facility] Healthcare MEGASPHAERA (TYPES 1, 2) Not detected [facility] MYCOPLASMA GENITALIUM 0 [facility] Healthcare MYCOPLASMA GENITALIUM Not detected N [facility] [place] GONORRHOEAE 0 [facility] [place] GONORRHOEAE Not detected [facility] TRICHOMONAS VAGINALIS 0 [facility] TRICHOMONAS VAGINALIS Not detected N [facility] e GLUCOSE 1 HOURon 08-19-2024 Glucose [Mass/Vol] 182 mg/dL High NINF - 13 0 mg/dL [facility] Interpretation and review of laboratory results Abnormal [facility] e Urinalysis macro (dipstick) panel (U)on 08-19-2024 Bilirubin, UA Positive Negative - 4(70) +++ mg/dL [facility] Comment on above: small Blood, UA Negative Negative - 50 Osmin/mcL [facility] Clarity, UA Clear [facility] re Color, UA Yellow [facility] Glucose, UA Negative Negative - 1999(110) ++++ mg/dL [facility] Interpretation and review of laboratory results Abnormal [facility] Ketones, UA Positive Negative - 160(16) ++++ mg/dL [facility] Comment on above: 15 Leukocytes, UA Negative Negative - 500+++ Oumou/mcL [facility] Nitrite, UA Negative Negative - Positive [facility] pH, UA 6 5 - 9 [facility] Protein, UA Positive Negative - 1999(20) ++++ mg/dL [facility] Comment on above: 30 Spec Grav, UA 1.025 1 - 1.03 [facility] Urobilinogen, UA 0.2 0.2 - 12 mg/dL [facility] Urinalysis macro (dipstick) panel (U)on 07-22-2024 Bilirubin, UA Negative Negative - 4(70) +++ mg/dL [facility] Blood, UA Negative Negative - 50 Osmin/mcL [facility] Clarity, UA Clear [facility] Glucose, UA Negative Negative - 1999(110) ++++ mg/dL [facility] Interpretation and review of laboratory results Abnormal [facility] Ketones, UA Positive Negative - 160(16) ++++ mg/dL [facility] Comment on above: trace Leukocytes, UA Negative Negative - 500+++ Oumou/mcL [facility] Nitrite, UA Negative Negative - Positive [facility] pH, UA 6.5 5 - 9 [facility] e Protein, UA Trace Negative - 1999(20) ++++ mg/dL [facility] Spec Grav, UA 1.025 1 - 1.03 [facility] Urobilinogen, UA 0.2 0.2 - 12 mg/dL [facility] Health[facility] e CBC and differentialon 07-15 Hematocrit (Bld) [Volume fraction] 42 % 36 - 46 % [facility] Hemoglobin (Bld) [Mass/Vol] 13.6 g/dL 12.0 - 16.0 g/dL [facility] Platelets (Bld) [#/Vol] 392 10*3/uL 150 - 399 10*3/uL [facility] WBC (Bld) [#/Vol] 9.2 10*3/mL 3.3 - 10.0 10*3/mL [facility] CBC without diffon Rbc Mcv (Fl) By Automated Count 85.4 [facility] Drug Screen, Urineon 025 Amphetamine/Methamphe tamine Negative [facility] Barbiturates Negative [facility] Benzodiazepines Negative [facility] Cocaine Metabolite Negative [facility] Methadone Negative [facility] Opiates Negative [facility] Oxycodone Negative [facility] Phencyclidine Negative [facility] Thc Marijuana, Urine Negative [facility] Glucose 1h post 50g loadon 0 07-15-2024 Glucose, 1Hr PP 182 [facility] HBV surface Ag IA Qlon 07-15 Hepatitis B Surface Antigen Negative [facility] HIV 1+2 Ab+HIV1 p24 Ag IA Ql on 07-15-2024 HIV 1&2 AB/AG Non-Reactive [facility] Laboratory - Chemistry and C hemistry - challengeon 07-15-2024 Glucose [Mass/Vol] 111 mg/dL [facility] Laboratory - Hematology and Cell countson 07-15-2024 HbA1c (Bld) [Mass fraction] 5.5 % 4.0 - 6.0 % [facility] Comment on above: ADA RECOMMENDED LIMI T 4.0 - 6.0 ADA THERAPEUTIC TARGET < 7.0 ACTION SUGGESTED > 7.0 MLR HEMOGLOBIN A1Con 025 [facility] No Panel Informationon 07-15 [facility] Rubella IGG immune statuson 07-15-2024 Rubella immune IgG 1.77 [facility] T. pallidum IgG+IgM IA Ql (S )on 07-15-2024 Syphilis Non-Reactive [facility] Type and screenon 07-15-2024 Abo/Rh(D) Positive [facility] US OB TRANSVAGINALon 025 US [...] II, MD, PHD at 20-Jun-2024 08:24:08 AM [facility] Normal Not Available Comment on above: Order Comment: US OB TRANSVAGINAL No LMP recorded. [facility] PREG QUANT HCGon 025 HCG QUANTITATIVE 2792 mIU/mL [facility] ltare Comment on above: 5-50 0.2-1 WEEK 50-500 1-2 WEEKS 100-5,000 2-3 WEEKS 500-10,000 3-4 WEEKS 1,000-50,000 4-5 WEEKS 10,000-100,000 5-6 WEEKS 15,000-200,000 6-8 WEEKS 10,000-100,000 2-3 [facility] PREG QUANT HCGon 025 HCG QUANTITATIVE 713 mIU/mL [facility] Comment on above: 5-50 0.2-1 WEEK 50-500 1-2 WEEKS 100-5,000 2-3 WEEKS 500-10,000 3-4 WEEKS 1,000-50,000 4-5 WEEKS 10,000-100,000 5-6 WEEKS 15,000-200,000 6-8 WEEKS 10,000-100,000 2-3 MONTHS [facility] Healthcar e ALL CBC WITH AUTO DIFFon BASOPHILS ABSOLUTE [facility].1 [facility] Basophils/100 WBC (Bld) 0.8 % 0.2 - 2.0 % [facility] Eosinophils/100 WBC (Bld) 3.5 % 0.9 - 7.0 % [facility] Erythrocyte distribution width (RBC) [Ratio] 13.2 % 11.0 - 15.0 % [facility] Hematocrit (Bld) [Volume fraction] 41.9 % 36.0 - 48.0 % [facility] Hemoglobin (Bld) [Mass/Vol] 13.8 g/dL 12.0 - 16.0 g/dL [facility] IMMATURE GRANULOCYTES ABS AUTO 0.02 [facility] Immature granulocytes/100 WBC (Bld) 0.3 % 0.0 - 0.5 % [facility] LYMPHOCYTES ABSOLUTE AUTO 2.5 [facility] Lymphocytes/100 WBC (Bld) 31.1 % 20.5 - 60.0 % [facility] MCH (RBC) [Entitic mass] 27.7 pg 26.7 - 34.0 pg [facility] MCHC (RBC) [Mass/Vol] 32.9 g/dL 29.9 - 35.2 g/dL [facility] MCV (RBC) [Entitic vol] 84 fL 81.0 - 99.0 fL [facility] MONOCYTES ABSOLUTE AUTO 0.5 [facility] Monocytes/100 WBC (Bld) 6.6 % 1.7 - 12.0 % [facility] NEUTROPHILS ABSOLUTE AUTO 4.6 [facility] Neutrophils/100 WBC (Bld) 57.7 % 43.0 - 75.0 % [facility] Platelet mean volume (Bld) [Entitic vol] 9.6 fL 9.5 - 13.5 fL [facility] are [facility] EO # 0.3 [facility] TB PLT 429 [facility] TB RBC 4.99 [facility] WBC 8 [facility] ALL CBC WITH AUTO DIFFon BASOPHILS ABSOLUTE AUTO 0.1 [facility] Basophils/100 WBC (Bld) 0.7 % 0.2 - 2.0 % [facility] Eosinophils/100 WBC (Bld) 3.7 % 0.9 - 7.0 % [facility] Erythrocyte distribution width (RBC) [Ratio] 13.2 % 11.0 - 15.0 % [facility] Hematocrit (Bld) [Volume fraction] 42.2 % 36.0 - 48.0 % [facility] Hemoglobin (Bld) [Mass/Vol] 14 g/dL 12.0 - 16.0 g/dL [facility] IMMATURE GRANULOCYTES ABS AUTO 0.01 [facility] Immature granulocytes/100 WBC (Bld) 0.1 % 0.0 - 0.5 % [facility] LYMPHOCYTES ABSOLUTE AUTO 2.6 [facility] Lymphocytes/100 WBC (Bld) 37.7 % 20.5 - 60.0 % [facility] MCH (RBC) [Entitic mass] 28.1 pg 26.7 [...] [facility] Cytology Cervical or vaginal smear or scraping [...] She can be sleepy during the day. [place] Sleepiness Scale score: 12. She is sleepy [...] her clinical (more content not included)... Normal [facility] CT HEAD WO CONon 12-21-2021 CT [...] by: CARLOS GALE Date: 2021-12-21 07:15 Normal [facility] CT TEMPORAL BONES WO CONon [...] foramen are normal. Visualized paranasal sinuses clear. [employer] spaces normal. Orbital contents unremarkable. Posterior fossa structures normal. IMPRESSION: Normal CT of the temporal bones. Electronically authenticated by: LOUIS BRAY Date: 2021-12-21 16:11 Normal [facility] Comprehensive Metabolic Empo n 05-10-2021 Albumin [Mass/Vol] 4.1 g/dL Normal 3.2-5.5 [facility] Comment on above: Performed By: #### E BS LIPID, EBS A1C, EBS CMP #### [facility] [address] Albumin/Globulin [Mass ratio] 1.3 {ratio} Normal [facility] Comment on above: Performed By: #### E BS LIPID, EBS A1C, EBS CMP #### [facility] [address] [place] [id number] [facility] ALP [Catalytic activity/Vol] 77 U/L Normal 32-92 [facility] Comment on above: Performed By: #### E BS LIPID, EBS A1C, EBS CMP #### [facility] [address] [place] [id number] [place] ALT [Catalytic activity/Vol] 19 U/L Normal 10-60 [facility] Comment on above: Performed By: #### E BS LIPID, EBS A1C, EBS CMP #### [facility] [address] [place] [address] [place] AST [Catalytic activity/Vol] 18 U/L Normal 10-42 [facility] Comment on above: Performed By: #### E BS LIPID, EBS A1C, EBS CMP #### [facility] [address] [place] [address] [place] Bilirubin [Mass/Vol] 0.3 mg/dL Normal 0.3-1.2 [facility] Comment on above: Performed By: #### E BS LIPID, EBS A1C, EBS CMP #### [facility] [address] Calcium [Mass/Vol] 9.2 mg/dL Normal 8.2-10.2 [facility] Comment on above: Performed By: #### E BS LIPID, EBS A1C, EBS CMP #### [facility] [address] [place] [address] [place] Chloride [Moles/Vol] 104 mmol/L Normal 95-114 [facility] Comment on above: Performed By: #### E BS LIPID, EBS A1C, EBS CMP #### [facility] [address] [place] [address] [place] CO2 [Moles/Vol] 24.1 mmol/L Normal 22.0-30.0 [facility] Comment on above: Performed By: #### E BS LIPID, EBS A1C, EBS CMP #### [facility] [address] [place] [id number] [place] Creatinine [Mass/Vol] 0.69 mg/dL Normal 0.44-1.03 [facility] Comment on above: Performed By: #### E BS LIPID, EBS A1C, EBS CMP #### [facility] [address] [place] [address] [place] Estimated GFR ( Liz > 60 Normal [facility] Comment on above: Result Comment: GFR estimated reference range: According to KDOQI guidelines, <60 ml/min/1.73m2 is sufficient to diagnose a patient with chronic kidney disease. Performed By: #### E BS LIPID, EBS A1C, EBS CMP #### [facility] [address] Estimated GFR (Non- Am > 60 Normal [facility] Comment on above: Performed By: #### E BS LIPID, EBS A1C, EBS CMP #### [facility] [address] Globulin (S) [Mass/Vol] 3.1 g/dL Normal [facility] Comment on above: Performed By: #### E BS LIPID, EBS A1C, EBS CMP #### [address] Glucose [Mass/Vol] 106 mg/dL High 70-100 [facility] Comment on above: Result Comment: ADA recommended reference range Performed By: #### E BS LIPID, EBS A1C, EBS CMP #### [address] Potassium [Moles/Vol] 4.0 mmol/L Normal 3.5-5.1 [facility] Comment on above: Performed By: #### E BS LIPID, EBS A1C, EBS CMP #### [address] Protein [Mass/Vol] 7.2 g/dL Normal 6.1-7.9 [facility] Comment on above: Performed By: #### E BS LIPID, EBS A1C, EBS CMP #### [address] Sodium [Moles/Vol] 137 mmol/L Normal 136-146 [facility] Comment on above: Performed By: #### E BS LIPID, EBS A1C, EBS CMP #### [address] Urea nitrogen [Mass/Vol] 10 mg/dL Normal 9-23 [facility] Comment on above: Performed By: #### E BS LIPID, EBS A1C, EBS CMP #### [place] [id number] [place] EBS A1C with Estimated Mallika hayes 05-10-2021 Glucose [Mass/Vol] 111 mg/dL Normal [facility] Comment on above: Result Comment: PERF ORMED BY: [place] [address] PATHOLOGIST UNIT SUPPORT REPRESENTATIVE JERRY RAMSEY M.D. Performed By: #### E BS LIPID, EBS A1C, EBS CMP #### [facility] [address] [place] [address] HbA1c (Bld) [Mass fraction] 5.5 % Normal 4.3-5.6 [facility] Comment on above: Result Comment: Incr eased risk for diabetes: 5.7 - 6.4 diabetes: >6.4 glycemic control for adults with diabetes: <7.0 Performed By: #### E BS LIPID, EBS A1C, EBS CMP #### [facility] [address] [place] [address] Lipid Profileon 05-10-2021 Cholesterol [Mass/Vol] 202 mg/dL High 140-200 [facility] Comment on above: Result Comment: Chol less than 200 mg/dl low risk Chol 201-239 mg/dl borderline risk Chol 240 mg/dl and greater high risk Performed By: #### E BS LIPID, EBS A1C, EBS CMP #### [facility] [address] [place] [address] Cholesterol in HDL [Mass/Vol] 37 mg/dL Normal 35-85 [facility] Comment on above: Result Comment: HDL CHOL ATP-III CLASSIFICATION Cardiovascular Risk HDL > or equal to 60 mg/dL LOW HDL < 40 mg/dL HIGH Performed By: #### E BS LIPID, EBS A1C, EBS CMP #### [facility] [address] [place] [address] Cholesterol.total/Cho lesterol in HDL [Mass ratio] 5.5 {ratio} Normal <5.0 [facility] Comment on above: Result Comment: PERF ORMED BY: [facility] [address] [place] [address] PATHOLOGIST UNIT SUPPORT REPRESENTATIVE JERRY RAMSEY M.D. Performed By: #### E BS LIPID, EBS A1C, EBS CMP #### [facility] [address] [place] [id number] [place] LDL Cholesterol,Calculate d 125 mg/dL High 0-100 [facility] Comment on above: Result Comment: LDL ATP III CLASSIFICATION LDL less than 100 mg/dL Optimal LDL 100-129 mg/dL Near or above optimal LDL 130-159 mg/dL Borderline high LDL 160-189 mg/dL High LDL greater than 189 mg/dL Very high Performed By: #### E BS LIPID, EBS A1C, EBS CMP #### [facility] [address] Triglyceride w/Reflex 199 mg/dL High 35-149 [facility] Comment on above: Result Comment: TRIG ATP III CLASSIFICATION TRIG less than 150 mg/dL Normal TRIG 150-199 mg/dL Borderline high TRIG 200-500 mg/dL High TRIG greater than 500 mg/dL Very high Standard traceable to the Center for Disease Conrtrol and Prevention (CDC) test method. Performed By: #### E BS LIPID, EBS A1C, EBS CMP #### [facility] [address] VLDL CHOLESTEROL 39 mg/dL Normal [facility] Comment on above: Performed By: #### E BS LIPID, EBS A1C, EBS CMP #### [facility] [address] Vital Signs Date Time Vital Sign Value Performing Clinician Ronaldo coello 12-23-2024 11:38-0400 Body mass index (BMI) [Ratio] 40.01 kg/m2 Miguel Riddhi DO Work Phone: [facility] 12-23-2024 11:38-0400 Body weight 133.81 kg Miguel Riddhi DO Work Phone: [facility] 12-23-2024 11:38-0400 Diastolic blood pressure 70 mm[Hg] Miguel Riddhi DO Work Phone: [facility] 12-23-2024 11:38-0400 Systolic blood pressure 120 mm[Hg] Miguel Riddhi DO Work Phone: [facility] 12-16-2024 13:08-0400 Body mass index (BMI) [Ratio] 39.98 kg/m2 Maureen Feliz PA Work Phone: [facility] 12-16-2024 13:08-0400 Body weight 133.72 kg Maureen Feliz PA Work Phone: [facility] 12-16-2024 13:08-0400 Diastolic blood pressure 70 mm[Hg] Maureen Feliz PA Work Phone: [facility] 12-16-2024 13:08-0400 Systolic blood pressure 120 mm[Hg] Maureen Feliz PA Work Phone: [facility] 12-02-2024 08:57-0400 Body mass index (BMI) [Ratio] 39.3 kg/m2 Miguel Riddhi DO Work Phone: [facility] 12-02-2024 08:57-0400 Body weight 131.45 kg Miguel Riddhi DO Work Phone: [facility] 12-02-2024 08:57-0400 Diastolic blood pressure 76 mm[Hg] Miguel Riddhi DO Work Phone: [facility] 12-02-2024 08:57-0400 Systolic blood pressure 114 mm[Hg] Miguel Riddhi DO Work Phone: [facility] 11-28-2024 11:44-0400 Body height 182.9 cm Saul Granados MD Work Phone: [facility] 11-28-2024 11:44-0400 Body mass index (BMI) [Ratio] 38.9 kg/m2 Saul Granados MD Work Phone: [facility] 11-28-2024 11:44-0400 Body weight 130.09 kg Saul Granados MD Work Phone: [facility] 11-28-2024 11:44-0400 Diastolic blood pressure 60 mm[Hg] Saul Granados MD Work Phone: [facility] 11-28-2024 11:44-0400 Heart rate 96 /min Saul Granados MD Work Phone: [facility] 11-28-2024 11:44-0400 Systolic blood pressure 114 mm[Hg] Saul Granados MD Work Phone: [facility] 11-18-2024 09:04-0400 Body mass index (BMI) [Ratio] 38.52 kg/m2 Miguel Riddhi DO Work Phone: [facility] 11-18-2024 09:04-0400 Body weight 128.82 kg Miguel Riddhi DO Work Phone: [facility] 11-18-2024 09:04-0400 Diastolic blood pressure 70 mm[Hg] Miguel Riddhi DO Work Phone: [facility] 11-18-2024 09:04-0400 Systolic blood pressure 112 mm[Hg] Miguel Riddhi DO Work Phone: [facility] 11-03-2024 15:07-0400 Body mass index (BMI) [Ratio] 38.63 kg/m2 Miguel Riddhi DO Work Phone: [facility] 11-03-2024 15:07-0400 Body weight 129.18 kg Miguel Riddhi DO Work Phone: [facility] 11-03-2024 15:07-0400 Diastolic blood pressure 74 mm[Hg] Miguel Riddhi DO Work Phone: [facility] 11-03-2024 15:07-0400 Systolic blood pressure 110 mm[Hg] Miguel Riddhi DO Work Phone: [facility] 10-21-2024 08:41-0400 Body mass index (BMI) [Ratio] 38.44 kg/m2 Maureen SINGLETON Work Phone: [facility] 10-21-2024 08:41-0400 Body weight 128.55 kg Maureen SINGLETON Work Phone: [facility] 10-21-2024 08:41-0400 Diastolic blood pressure 78 mm[Hg] Maureen SINGLETON Work Phone: [facility] 10-21-2024 08:41-0400 Systolic blood pressure 124 mm[Hg] Maureen Feliz PA Work Phone: [facility] 09-16-2024 09:49-0400 Body mass index (BMI) [Ratio] 37.57 kg/m2 Miguel Riddhi DO Work Phone: [facility] 09-16-2024 09:49-0400 Body weight 125.65 kg Miguel Riddhi DO Work Phone: [facility] 09-16-2024 09:49-0400 Diastolic blood pressure 76 mm[Hg] Miguel Riddhi DO Work Phone: [facility] 09-16-2024 09:49-0400 Systolic blood pressure 126 mm[Hg] Miguel Riddhi DO Work Phone: [facility] 08-19-2024 14:52-0400 Body mass index (BMI) [Ratio] 37.57 kg/m2 Maureen SINGLETON Work Phone: [facility] 08-19-2024 14:52-0400 Body weight 125.65 kg Maureen Paula PA Work Phone: [facility] 08-19-2024 14:52-0400 Diastolic blood pressure 78 mm[Hg] Maureen Feliz PA Work Phone: [facility] 08-19-2024 14:52-0400 Systolic blood pressure 128 mm[Hg] Maureen SINGLETON Work Phone: [facility] 07-22-2024 09:47-0400 Body mass index (BMI) [Ratio] 37.3 kg/m2 Miguel Riddhi DO Work Phone: [facility] 07-22-2024 09:47-0400 Body weight 124.74 kg Miguel Riddhi DO Work Phone: [facility] 07-22-2024 09:47-0400 Diastolic blood pressure 86 mm[Hg] Miguel Riddhi DO Work Phone: [facility] 07-22-2024 09:47-0400 Systolic blood pressure 130 mm[Hg] Miguel Riddhi DO Work Phone: [facility] 02-19-2024 14:07-0500 Body mass index (BMI) [Ratio] 37.95 kg/m2 Maureen Feliz PA Work Phone: [facility] 02-19-2024 14:07-0500 Body weight 126.92 kg Maureen Feliz PA Work Phone: [facility] 02-19-2024 14:07-0500 Diastolic blood pressure 74 mm[Hg] Maureen Feliz PA Work Phone: [facility] 02-19-2024 14:07-0500 Systolic blood pressure 114 mm[Hg] Maureen Feliz PA Work Phone: [facility] 01-16-2024 16:38-0400 Body height 182.9 cm Miguel Riddhi DO Work Phone: [facility] 01-16-2024 16:38-0400 Body mass index (BMI) [Ratio] 37.57 kg/m2 Miguel Riddhi DO Work Phone: [facility] 01-16-2024 16:38-0400 Body weight 125.65 kg Miguel Riddhi DO Work Phone: [facility] 01-16-2024 16:38-0400 Diastolic blood pressure 80 mm[Hg] Miguel Riddhi DO Work Phone: [facility] 01-16-2024 16:38-0400 Systolic blood pressure 124 mm[Hg] Miguel Riddhi DO Work Phone: [facility] 12-25-2023 10:12-0400 Body height 182.9 cm Miguel Riddhi DO Work Phone: [facility] 12-25-2023 10:12-0400 Body mass index (BMI) [Ratio] 37.57 kg/m2 Miguel Riddhi DO Work Phone: [facility] 12-25-2023 10:12-0400 Body weight 125.65 kg Miguel Riddhi DO Work Phone: [facility] 12-25-2023 10:12-0400 Diastolic blood pressure 84 mm[Hg] Miguel Riddhi DO Work Phone: [facility] 12-25-2023 10:12-0400 Systolic blood pressure 122 mm[Hg] Miguel Riddhi DO Work Phone: [facility] Encounters Encounter Date Encounter Type Care Provider Facility Start: 12-25-2024 End: 12-25-2024 Office outpatient visit 25 minutes Magnus Hendrixgan [employer]ER [employer]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 Work Phone: [facility] at [facility] Comment on above: Insulin controlled g estational diabetes mellitus (GDM) in third trimester (Primary Dx) Start[facility] Start: 12-23-2024 End: 12-23-2024 Bamboo flowsheet Miguel Riddhi DO Work Phone: [facility] Start: 12-23-2024 End: 12-23-2024 Bamboo flowsheet Miguel Riddhi DO Work Phone: [facility] Start: 12-23-2024 End: 12-23-2024 flow sheet Miguel Riddhi DO Work Phone: [facility] Comment on above: 36 weeks gestation o f ([facility]); Third trimester ([facility]); Gestational diabetes mellitus (GDM), antepartum, gestational diabetes method of control unspecified ([facility]) Start: 12-23-2024 End: 12-23-2024 ambulatory MIGUEL RIDDHI Not Available Start: 12-19-2024 End: 12-19-2024 Clinisync Result Encounter Miguel Riddhi DO Work Phone: [facility] External Department Unsolicited Start: 12-19-2024 End: 12-19-2024 Clinisync Result Encounter Miguel Riddhi DO Work Phone: [facility] Unsolicited Start: 12-18-2024 End: 12-18-2024 Telephone encounter Tessie Carranza RN [facility] Start: 12-18-2024 End: 12-18-2024 ambulatory MAGNUS THOMASON [facility] Start: 12-16-2024 End: 12-16-2024 Bamboo flowsheet Maureen SINGLETON Work Phone: [facility] Start: 12-16-2024 End: 12-16-2024 Bamboo flowsheet Maureen SINGLETON Work Phone: [facility] Start: 12-16-2024 End: 12-16-2024 flow sheet Maureen SINGLETON Work Phone: [facility] Comment on above: 35 weeks gestation o f ([facility]); Third trimester ([facility]); Gestational diabetes mellitus (GDM), antepartum, gestational diabetes method of control unspecified ([facility]) Start: 12-16-2024 End: 12-16-2024 ambulatory MAUREEN FELIZ Not Available Start: 12-12-2024 End: 12-12-2024 Clinisync Result Encounter Miguel Riddhi DO Work Phone: [facility] Unsolicited Start: 12-12-2024 End: 12-12-2024 Clinisync Result Encounter Miguel Riddhi DO Work Phone: [facility] Unsolicited Start: 12-11-2024 End: 12-11-[address] [facility] Start: 12-09-2024 End: 12-09-2024 Orders Only Mary Scanlon PA-C Work Phone: [facility] - Labor Start: 12-06-2024 End: 12-06-2024 Clinisync Result Encounter Miguel Riddhi DO Work Phone: [facility] Unsolicited Start: 12-06-2024 End: 12-06-2024 Clinisync Result Encounter Miguel Riddhi DO Work Phone: [facility] Unsolicited Start: 12-03-2024 End: 12-03-2024 Orders Only Magnus Jeanie MINN-GRANT Work Phone: [facility] Start: 12-02-2024 End: 12-02-2024 Bamboo flowsheet Miguel Riddhi DO Work Phone: [facility] Start: 12-02-2024 End: 12-02-2024 Bamboo flowsheet Miguel Riddhi DO Work Phone: [facility] Start: 12-02-2024 End: 12-02-2024 flow sheet Miguel Riddhi DO Work Phone: [facility] Comment on above: Third trimester preg shayla ([facility]); 33 weeks gestation of ([facility]); Gestational diabetes mellitus (GDM), antepartum, gestational diabetes method of control unspecified ([facility]) Start: 12-02-2024 End: 12-02-2024 ambulatory MIGUEL RIDDHI Not Available Start: 11-28-2024 End: 11-28-2024 Office outpatient new 45 minutes Saul Granados MD Work Phone: [facility] Comment on above: Insulin controlled g estational diabetes mellitus (GDM) in third trimester (Primary Dx); Prediabetes in mother during ; Family history of type 2 diabetes mellitus; Obesity affecting , antepartum, unspecified obesity type; 32 weeks gestation of Start: 11-28-2024 End: 11-28-2024 ambulatory SAUL GRANADOS [facility] Start: 11-27-2024 End: 11-27-2024 Clinisync Result Encounter Miguel Riddhi DO Work Phone: [facility] Unsolicited Start: 11-27-2024 End: 11-27-2024 Clinisync Result Encounter Miguel Riddhi DO Work Phone: [facility] Unsolicited Start: 11-26-2024 End: 11-26-2024 Documentation procedure Yojana Fazal RN M[facility]- Medicine at [facility] Start: 11-26-2024 End: 11-26-2024 Telephone encounter Yojana Diehl RN Maternal- Medicine at [facility] Start: 11-25-2024 End: 11-25-2024 Telephone encounter Naomie Fela LD Work Phone: Maternal- Medicine at [facility] Start: 11-24-2024 End: 11-24-2024 Chart abstracting Scanning Provider External Maternal- Medicine at [facility] Start: 11-20-2024 End: 11-20-2024 ambulatory NAOMIE FELA [facility] Start: 11-18-2024 End: 11-18-2024 Bamboo flowsheet Miguel Riddhi DO Work Phone: [facility] Start: 11-18-2024 End: 11-18-2024 Bamboo flowsheet Miguel Riddhi DO Work Phone: [facility] Start: 11-18-2024 End: 11-18-2024 ambulatory MIGUEL RIDDHI Not Available Start: 11-18-2024 End: 11-18-2024 flow sheet Miguel Riddhi DO Work Phone: [facility] Comment on above: Third trimester preg shayla ([facility]); 31 weeks gestation of ([facility]); Gestational diabetes mellitus (GDM), antepartum, gestational diabetes method of control unspecified ([facility]) Start: 11-14-2024 End: 11-14-2024 Clinisync Result Encounter Migule Riddhi DO Work Phone: [facility] Unsolicited Start: 11-14-2024 End: 11-14-2024 Clinisync Result Encounter Miguel Riddhi DO Work Phone: [facility] External [facility] Unsolicited Start: 11-13-2024 End: 11-13-2024 Chart abstracting Generic External Data Provider Maternal- Medicine at [facility] Start: 11-12-2024 ambulatory VIRAL [facility] Start: 11-10-2024 End: 11-10-2024 Clinisync Result Encounter Miguel Riddhi DO Work Phone: [facility] External [facility] Unsolicited Start: 11-10-2024 End: 11-10-2024 Clinisync Result Encounter Miguel Riddhi DO Work Phone: [facility] External [facility] Unsolicited Start: 11-03-2024 End: 11-03-2024 flow sheet Miguel Riddhi DO Work Phone: [facility] Comment on above: 29 weeks gestation o f ([facility]); Third trimester ([facility] Start: 11-03-2024 End: 11-03-2024 ambulatory MIGUEL RIDDHI [...] [facility] Start: 10-21-2024 End: 10-21-2024 ambulatory [facility] Start: 10-21-2024 End: 10-21-2024 flow sheet Maureen SINGLETON Work Phone: [facility] Comment on above: Size of fetus incons istent with dates in second trimester ([facility]) (Primary Dx); Second trimester ([facility]); 27 weeks gestation of ([facility]) Start: 10-21-2024 End: 10-21-2024 ambulatory MAUREEN FELIZ Not Available Start: 09-16-2024 End: 09-16-2024 ambulatory MIGUEL RIDDHI Not Available Start: 09-16-2024 End: 09-16-2024 flow sheet Miguel Riddhi DO Work Phone: [facility] Comment on above: Second trimester pre gnancy; 22 weeks gestation of ; Elevated glucose tolerance test Start: 09-16-2024 End: 09-16-2024 ambulatory MIGUEL RIDDHI Not Available Start: 09-02-2024 ambulatory [facility] Start: 08-23-2024 End: 08-23-2024 Clinisync Result Encounter Maureen SINGLETON Work Phone: [facility] External Department Unsolicited Start: 08-23-2024 End: [...] [facility] External [facility] Unsolicited Start: 06-26-2024 ambulatory [facility] Start: 06-19-2024 End: 06-19-2024 ambulatory MIGUEL RIDDHI Not Available Start: 05-21-2024 ambulatory [facility] Start: 05-20-2024 End: 05-20-2024 Clinisync Result [...] [facility] External [facility] Unsolicited Start: 04-21-2024 ambulatory [facility] Start: 04-14-2024 ambulatory [facility] Start: 03-07-2024 ambulatory [facility] Start: 02-25-2024 ambulatory [facility] Start: 02-19-2024 End: 02-19-2024 Bamboo flowsheet Maureen SINGLETON Work Phone: [facility] Start: 02-19-2024 End: 02-19-2024 Bamboo flowsheet Maureen SINGLETON Work Phone: [facility] Start: 02-19-2024 End: 02-19-2024 Postop follow up visit related to original px Maureen SINGLETON Work Phone: [facility] Comment on above: Postop check Start: 02-19-2024 End: 02-19-2024 ambulatory MAUREEN FELIZ Not Available Start: 02-14-2024 ambulatory [facility] Start: 02-08-2024 End: 02-08-2024 Clinisync Result Encounter Imguel Riddhi DO Work Phone: [facility] Unsolicited Start: 02-08-2024 End: 02-08-2024 Clinisync Result Encounter Miguel Riddhi DO Work Phone: [facility] Unsolicited Start: 01-30-2024 End: 01-30-2024 Clinisync Result Encounter Miguel Riddhi DO Work Phone: [facility] Unsolicited Start: 01-30-2024 End: 01-30-2024 Clinisync Result Encounter Miguel Riddhi DO Work Phone: [facility] Unsolicited Start: 01-16-2024 ambulatory [facility] Start: 01-16-2024 End: 01-16-2024 Office outpatient visit 15 minutes Miguel Riddhi DO Work Phone: [facility] Comment on above: Pre-op examination; Uterine leiomyoma, unspecified location Start: 01-16-2024 End: 01-16-2024 Preprocedural examination done Miguel Riddhi DO Work Phone: [facility] Start: 01-16-2024 End: 01-16-2024 ambulatory [...] (polycystic ovarian syndrome); Dysfunctional uterine bleeding Start: 12-11-2023 End: 12-11-2023 Clinisync Result Encounter Aristides Araiza DO Work Phone: [facility] Unsolicited Start: 12-11-2023 End: 12-11-2023 Clinisync Result Encounter Aristides Araiza DO Work Phone: [facility] Unsolicited Start: 12-12-2022 End: 12-15-2022 [facility]ulatory [facility] Start: 06-19-2022 End: 06-20-2022 ambulatory Isabella Raygoza APRN-CUSTOMER SERV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 Facility:[facility] Start: 05-30-2022 End: 05-31-2022 ambulatory Adebayo Latham DO Facility:[facility] Start: 05-16-2022 End: 05-17-2022 ambulatory Isabella Sepulveda Jaret STORM SASH MAKER-CUSTOMER SERV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 Facility:[facility] Start: 12-20-2021 End: 12-21-[address] ADEBAYO [...] [Identifier] in Cervix by Cyto stain Maureen eFliz PA Work Phone: Start: 12-13-2023 Cytp cerv/vag [...] Td Vaccines (7 - Td or Tdap) [facility] Start: 12-12-2028 Screening for malign ant neoplasm of cervix [facility] Start: 12-12-2026 Screening for malign ant neoplasm of cervix Pap Smear [facility] Start: 11-28-2025 Adult BMI Screening Adult BMI Screen ing [facility] Start: 11-28-2025 Tobacco Screening Tobacco Screening [facility] Start: 01-06-2025 End: 01-06-2025 Patient encounter procedure 01/06/2025 9:10 AM EDT Routine JOSY HERNANDEZ [address] [place] [phone] Miguel Hannon DO [address] [place] [address] [facility]BGY[facility] Start: 12-30-2024 End: 12-30-2024 Patient encounter procedure 12/30/2024 8:30 AM EDT Routine JOSY HERNANDEZ [address] [place] [phone] Maureen Feliz PA [address] [place] [address] [facility] [place] [facility] Start: 12-25-2024 End: 12-25-2024 Telemedicine consultation with patient 12/25/2024 3:00 PM EDT Telemedicine Maternal- Medicine at [facility] [address] [place] [phone] Magnus Thomason, [employer] MAKER-CUSTOMER SERV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 [address] [place] [address] Maternal- Medicine at [facility] Start: 12-23-2024 End: 12-23-2025 CULTURE, GROUP B STREP WITH SUSCEPTIBLITY CULTURE, GROUP B STREP WITH SUSCEPTIBLITY Lab Routine Third trimester ([facility]) Expected: 12/23/2024, Expires: 12/23/2025 [facility] Work Phone: Comment on above: Expected: 12/23/2024 , Expires: 12/23/2025 Start: 12-23-2024 End: 12-23-2024 Patient encounter procedure JOSY [place] MARY Comment on above: Arrived Start: 12-18-2024 End: 12-18-2024 Telemedicine consultation with patient 12/18/2024 8:00 AM EDT Telemedicine Maternal- Medicine at [facility] [address] [place] [phone] Magnus Thomason, [employer] MAKER-CUSTOMER SERV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 [address] [place] [address] Maternal- Medicine at [facility] Start: 12-16-2024 End: 12-16-2024 Patient encounter procedure JOSY Mortonbret HERNANDEZ Comment on above: Arrived Start: 12-15-2024 Influenza vaccination [facility] Start: 12-11-2024 End: 12-11-2024 Patient encounter procedure 12/11/2024 1:00 PM EDT Appointment [facility] [place] [address] [address] [place] [address] [facility] [place] Start: 12-02-2024 End: 12-02-2024 Patient encounter procedure JOSY Mortonbret HERNANDEZ Comment on above: Arrived Start: 11-20-2024 End: 11-20-2024 Telemedicine consultation with patient 11/20/2024 10:30 AM EDT Telemedicine Maternal- Medicine at [facility] [address] [place] [phone] Miroslava Trinidad RN [address] [facility] [address] [address] Juli Quezada LD Karl, Deborah, LD [address] [place] [address] Maternal- Medicine at [facility] Start: 11-18-2024 End: 05-21-2025 US biophysical profile w non stress test US biophysical profile w non stress test Imaging Routine Gestational diabetes mellitus (GDM), antepartum, gestational diabetes method of control unspecified ([facility]) Expected: 11/18/2024 (Approximate), Expires: 05/21/2025 [facility] Work Phone: Comment on above: Expected: 11/18/2024 (Approximate), Expires: 05/21/2025 Start: 11-18-2024 End: 11-18-2024 Patient encounter procedure 11/18/2024 8:50 AM EDT Routine [facility] [address] [place] [address] Miguel Hannon DO [address] [place], [place] [phone] [facility] Start: 11-03-2024 End: 11-03-2024 Patient encounter procedure [facility] Comment on above: Arrived Start: 11-03-2024 End: 11-03-2024 Professional / ancillary services management 11/03/2024 2:00 PM EDT Ancillary Procedure [facility] [address] [address] [facility] Start: 10-21-2024 End: 02-21-2025 US for US OB follow up transabdominal approach Imaging Routine Size of fetus inconsistent with dates in second trimester ([facility]) Expected: 10/21/2024, Expires: 02/21/2025 [facility] [...] AM EDT Routine [facility] [address] [phone] Miguel Hannon DO [address] [place] [place], [place] [phone] [facility] Start: 09-16-2024 End: 09-16-2024 Professional / ancillary services management 09/16/2024 8:30 AM EDT Ancillary Procedure [facility] [address] [place] [phone] [facility] Start: 08-19-2024 End: 08-19-2024 Patient encounter procedure 08/19/2024 2:20 PM EDT Routine [facility] [address] [place] [phone] Maureen Feliz PA [address] [place] [address] [facility] Start: 08-19-2024 End: 09-19-2024 Alpha fetoprotein, maternal Alpha fetoprotein, maternal Lab Routine Need for maternal serum alpha-protein (MSAFP) screening Expected: 08/19/2024 (Approximate), Expires: 09/19/2024 [facility] Comment on above: Expected: 08/19/2024 (Approximate), Expires: 09/19/2024 Start: 08-19-2024 End: 08-19-2025 Measurement of glucose 3 hours after glucose challenge for glucose tolerance test Glucose tolerance, 3 hours Lab Routine Elevated glucose tolerance test Expected: 08/19/2024 (Approximate), Expires: 08/19/2025 [facility] Comment on above: Expected: 08/19/2024 (Approximate), Expires: 08/19/2025 Start: 08-19-2024 End: 11-19-2024 US for US OB 14+ weeks anatomy scan Imaging Routine Screening, , for anatomic survey Expected: 08/19/2024, Expires: 11/19/2024 [facility] Comment on above: Expected: 08/19/2024 , Expires: 11/19/2024 Start: 07-22-2024 End: 07-22-2025 Measurement of glucose 1 hour after glucose challenge for glucose tolerance test Glucose tolerance, 1 hour Lab Routine Diabetes mellitus screening Expected: 07/22/2024 (Approximate), Expires: 07/22/2025 [facility] Work Phone: Comment on above: Expected: 07/22/2024 (Approximate), Expires: 07/22/2025 Start: 07-22-2024 End: 07-22-2024 Patient encounter procedure [facility] Comment on above: Arrived Start: 06-19-2024 End: 06-19-2024 ambulatory 06/19/2024 2:30 PM EST Initial [facility] [address] [place] [phone] [facility] Start: 06-19-2024 End: 06-19-2024 Professional / ancillary services management 06/19/2024 2:00 PM EST Ancillary Procedure [facility] [address] [place] [phone] [facility] Start: 02-19-2024 End: 02-19-2024 Patient encounter procedure 02/19/2024 1:40 PM EST Office Visit [facility] [address] [place] [phone] Maureen Feliz PA [address] [place] [address] Arrived [facility] Comment on above: Arrived Start: 01-16-2024 End: 01-16-2024 Patient encounter procedure 01/16/2024 4:00 PM EDT Consult [facility] [address] [place] [phone] Miguel Hannon, DO [address] [place] [address] [place] [address] Arrived [facility] Comment on above: [...] 12-16-2023 Influenza vaccination Influenza Vacc ine (#1) [facility] Start: 12-11-2023 End: 12-11-2023 Patient encounter procedure 12/11/2023 8:00 AM EDT Procedure Visit [facility] Aristides Araiza DO [address] [place] [address] [facility] Start: 05-17-2017 Screening for malign ant neoplasm of cervix [facility] Start: 12-23-2012 Screening for malign ant neoplasm of cervix Pap Smear [facility] Start: 12-23-2010 DTaP,Tdap and Td Vaccines (1 - Tdap) DTaP,Tdap and Td Vaccines (1 - Tdap) [facility] Start: 12-23-2009 Adult BMI Follow Up Plan Adult BMI Follow Up Plan [facility] Start: 12-23-2009 Adult BMI Screening Adult BMI Screen ing [facility] Start: 2003 Depression Screening Depression Scre ening [facility] Start: 2003 Tobacco Screening Tobacco Screening [facility] CBC W Auto Different ial panel - Blood CBC and differential Lab Routine PCOS (polycystic ovarian syndrome) Ordered: 12/25/2023 [facility] Comment on above: Ordered: 12/25/2023 CBC W Auto Different ial panel - Blood CBC and differential Lab Routine 22 weeks gestation of Elevated glucose tolerance test Ordered: 09/16/2024 [facility] Comment on above: Ordered: 09/16/2024 CHLAMYDIA TRACHOMATI S (GENITO/STI) CHLAMYDIA TRACHOMATIS (GENITO/STI) Lab Routine Exposure to STD Ordered: 08/19/2024 [facility] Comment on above: Ordered: 08/19/2024 DHEA-sulfate DHEA-sulfate Lab Routine PCOS (polycystic ovarian syndrome) Ordered: 12/25/2023 [facility] Comment on above: Ordered: 12/25/2023 Follicle stimulating hormone Follicle stimulating hormone Lab Routine PCOS (polycystic ovarian syndrome) Ordered: 12/25/2023 [facility] Comment on above: Ordered: 12/25/2023 hCG, quantitative, hCG, quantitative, Lab Routine PCOS (polycystic ovarian syndrome) Ordered: 12/25/2023 [facility] Work Phone: Comment on above: Ordered: 12/25/2023 Hemoglobin A1c/Hemoglobin.total in Blood Hemoglobin A1c Lab Routine Female infertility PCOS (polycystic ovarian syndrome) Dysfunctional uterine bleeding Ordered: 12/25/2023 [facility] Comment on above: Ordered: 12/25/2023 Human papilloma viru s DNA [Presence] in Unspecified specimen by Probe with amplification HPV DNA probe, amplified Microbiology Routine Ordered: 08/19/2024 [facility] Comment on above: Ordered: 08/19/2024 Luteinizing hormone Luteinizing hormone Lab Routine PCOS (polycystic ovarian syndrome) Ordered: 12/25/2023 [facility] Comment on above: Ordered: 12/25/2023 Neisseria gonorrhoea e DNA [Presence] in Unspecified specimen by [place] with probe detection Neisseria gonorrhea DNA probe, direct Lab Routine Exposure to STD Ordered: 08/19/2024 [facility] Comment on above: Ordered: 08/19/2024 SURESWAB(R) ADVANCED VAGINITIS PLUS, TMA SURESWAB(R) ADVANCED VAGINITIS PLUS, TMA Pathology and Cytology Routine Exposure to STD Ordered: 08/19/2024 [facility] Work Phone: Comment on above: Ordered: 08/19/2024 Thyrotropin [Units/volume] in Serum or Plasma TSH Lab Routine PCOS (polycystic ovarian syndrome) Ordered: 12/25/2023 [facility] Comment on above: Ordered: 12/25/2023 Thyroxine (T4) free [Mass/volume] in Serum or Plasma T4, free Lab Routine PCOS (polycystic ovarian syndrome) Ordered: 12/25/2023 [facility] Comment on above: Ordered: 12/25/2023 Immunizations Immunization Date Immunization Notes Care Provider Eunice martinez 01-20-2024 influenza virus vacc ine, unspecified formulation Maureen SINGLETON Work Phone: [facility] 02-12-2023 influenza virus vacc ine, unspecified formulation Aristides Araiza DO Work Phone: [facility] Payers Date Payer Category Payer Unknown [id number] 2024 [employer] Managed Care - Other [id number] 2024 Unknown [id number] 2023 Blue Cross Blue Shield [id number] 2023 Unknown [id number] 2022 Unknown 2021 Self-pay 2019 Unknown [id number] 1991 Unknown [id number] 2.16.840.1.310298.3.579.2.593 1991 Unknown [id number] 2.16.840.1.952036.3.579.2.593 1991 Unknown [id number] 2.16.840.1.624556.3.579.2.196 1991 Unknown [id number] 2.16.840.1.290289.3.579.2.196 1991 Unknown [id number] 2.16.840.1.524329.3.579.2.196 1991 Unknown [id number] 2.16.840.1.359878.3.579.2.173 1991 Unknown [id number] 2.16.840.1.326686.3.579.2.1285 1991 Unknown [id number] 2.16.840.1.530158.3.579.2.1285 1991 Unknown [id number] 2.16.840.1.655372.3.579.2.1285 1991 Unknown [id number] 2.16.840.1.018556.3.579.2.1285 1991 Unknown [id number] 2.16.840.1.503101.3.579.2.1258 1991 Unknown [id number] 2.16.840.1.359839.3.579.2.1258 1991 Unknown [id number] 2.16.840.1.587158.3.579.2.1258 1991 Unknown [id number] 2.16.840.1.865650.3.579.2.1258 1991 Unknown [id number] 2.16.840.1.769808.3.579.2.1258 1991 Unknown [id number] 2.16.840.1.794545.3.579.2.1258 1991 Unknown [id number] 2.16.840.1.767176.3.579.2.1258 1991 Unknown [id number] 2.16.840.1.541256.3.579.2.1258 1991 Unknown [id number] 2.16.840.1.063715.3.579.2.1258 1991 Unknown [id number] 2.16.840.1.238004.3.579.2.1258 1991 Unknown [id number] 2.16.840.1.821536.3.579.2.1259 1991 Unknown [id number] 2.16.840.1.564457.3.579.2.1259 1991 Unknown [id number] 2.16.840.1.113925.3.579.2.1259 1991 Unknown [id number] 2.16.840.1.619394.3.579.2.1259 1959 Unknown [id number] Social History Date Type Detail Facility Start: 11-19-2023 End: 11-28-2024 Tobacco smoking status MEIS Never smoked tobacco [facility] Start: 11-19-2023 End: 11-28-2024 Tobacco use and exposure Smokeless tobacco non-user [facility] Start: 12-25-2023 End: 12-23-2024 Alcoholic beverage intake Lifetime non-drinker (finding) [facility] Start: 11-19-2023 End: 11-28-2024 History of Social function [facility] Start: 11-19-2023 End: 11-28-2024 Tobacco use panel [facility] Start: 1990 Sex assigned at Not on file [facility] Start: 04-26-2024 [facility] Tobacco smoking stat [facility] Tobacco smoking consumption unknown [facility] Start: 11-11-2024 Sex Female (finding[facility] Within the past 12 months we worried whether our food would run out before we got money to buy more. Never True [facility] Start: 11-28-2024 Alcoholic beverage intake Ex-drinker (finding) [facility] Medical Equipment Procedure Code Equipment Code Equipment Origin al Text Equipment Identifier Dates 1 strip by In Vi tro route Daily Use in the morning prior to breakfast, 1 hour after each meal for a total of 4times daily. [id number] Start: 11-10-2024 End: 12-10-2024 1 each by In Vit ro route Daily Use to check FSBS four times daily [id number] Start: 11-10-2024 End: 12-10-2024 Use daily for insulin [id number] Start: 11-28-2024 Clinical Notes 06-19-2022 to 12-25-2024 Magnus Thomason APRN-CUSTOMER SERV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 - 12/25/2024 3:00 PM Mae Malagon LPN - 12/23/2024 11:30 AM EDTTelephone Encounter - Tessie Carranza RN - 12/18/2024 11:26 AM ARELI Delvalle - 12/16/2024 1:10 PM EDT Note Date & Type Note Facility 12-25-2024 History of Present illness Narrative REASON FOR OFFICE VISIT: Video Visit via Real-time Synchronous Audiovisual Provider Location: [facility]- MEDICINE AT [address] [address] Patient Location: Patient's home Video Visit Consent Statement: I discussed risks, benefits, and alternatives of a real-time synchronous audiovisual consultation with the patient (and any accompanying persons) including the risks that the patient's personal health details and medical records will be discussed over real-time, synchronous, interactive video/audio/telecommunication technology, the visit will not be recorded without the express consent of both the provider and the patient, and that there are some limitations compared to [id number] evaluations. The patient consented to the presence of additional virtual and/or in-person participants. We elected to proceed. 1. GDMA2, A1c 5.7% 2. BMI 38.9 3. Family history of T2DM 4. 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 at 36w5d due on Estimated Date of Delivery: 01/17/25. Currently the patient has no complaints. The patient denies OJE, nausea, vomiting, abdominal pain, vaginal bleeding, contractions, leaking fluid or chest pain. +FM. She is being followed at [facility] due to GDMA2. States she is following meal plan as much as possible and eating evening snack. CGM data 124 average FBS - reports fasting 100-120 1 HR Postprandial - 100-200 Past Medical History PAST OBSTETRICAL HISTORY: OB History 1 Para Term AB Living SAB IAB Ectopic Multiple Live Births SURGICAL HISTORY: Past Surgical History: Procedure Laterality Date COLONOSCOPY 2023 ALLERGIES: No Known Allergies CURRENT MEDICATIONS: Current Outpatient Medications: aspirin 81 mg, Take 1 tablet (81 mg total) by mouth in the morning., Disp: , Rfl: insulin glargine (LANTUS SOLOSTAR U-100 INSULIN) 100 unit/mL (3 mL) insulin pen, Inject 20 units of insulin in the evening, subcutaneously, prime 2 units, Disp: 15 mL, Rfl: 11 omeprazole (PriLOSEC) 20 mg capsule, Take 1 capsule (20 mg total) by mouth in the morning., Disp: , Rfl: pen needle, diabetic (BD ULTRA-FINE SHORT PEN NEEDLE) 31 gauge x 5/16 needle, Use daily for insulin, Disp: 100 each, Rfl: 2 PNV no.153/FA/om3/dha/epa/fish ( GUMMIES ORAL), Take 2 each by mouth in the morning., Disp: , Rfl: LABS: No results found for: GLUF , MICROALBUR , LDLCALC , CREATININE No results found for: TSH , T3 , TOTALT4 , THYROIDAB No results found for: [id number] No results found for: CREATININE , BUN , NA , K , CL , CO2 No results found for: ALT , AST , GGT , ALKPHOS , LABBILI Lab Results Component Value Date HGBA1C 5.5 07/15/2024 REVIEW OF SYSTEMS: Head and Neck: Negative for any dizziness and headaches. Cardiovascular and Respiratory System: Denies any chest pain, shortness of breath, and coughing. Abdominal and System: Denies any abdominal pain, nausea, vomiting, vaginal bleeding, and vaginal discharge PHYSICAL EXAMINATION: LMP 04/12/2024 . Gravid abdomen, Alert & Oriented. Respirations not labored. DISCUSSION: Importance of good blood sugar control was emphasized. The potential effects of uncontrolled diabetes before and during on herself were discussed including: preeclampsia, induced hypertension, labor, , and polyhydramnios. Potential effects on baby were explained: stillbirth, miscarriage, macrosomia, jaundice, trauma, hypoglycemia, respiratory distress and hypocalcemia. Insulin-dependent diabetes mellitus and its effect on was reviewed. This means there is an insulin deficiency requiring exogenous insulin to keep a euglycemic state. causes hyperglycemia in various ways. Placental hormones: human placental lactogen and TNF alpha can eventually hasten insulin resistance and hyperglycemia. Risks were reviewed to including: spontaneous loss, congenital malformations with HgA1c results .8.5 at time of conception and altered growth. High HbA1c is associated with increased risk of neural tube defects. 1st trimester screen is an ideal risk assessment tool to identify for congenital heart defects as well as aneuploidy around 12 wks' gestation followed by the maternal serum AFP in the 2nd trimester and then the 20-week anatomic survey. Maternal hyperglycemia results in hyperglycemia causing adverse growth and development. Macrosomia and excess fat deposits in the fetus lead to excess insulin being released from the pancreas. Relative oxygen deficiency can cause polycythemia leading to slugging in small capillaries which if happens in the brain may cause seizures. Hyperbilirubinemia may also result due to rapid destruction of surplus red blood cells after the has been delivered. Achieving a euglycemic state is the best preventative strategy. This can be done through close contact with M diabetic: via weekly glucose review either by Logs or CGM. Baseline urine protein creatinine ratio along with preeclampsia labs are recommended in early in (ideally 1st trimester) to help detect a diagnosis of pre-eclampsia. Pre-existing diabetic patients are at increased risk for developing hypertensive disorders of including preeclampsia. testing is also initiated around 32 wks due to the increased risk of still . Generally after 39 weeks gestation, we prefer to have a planned delivery in view of increased risk of demise. Earlier delivery may be necessitated due to a diagnosis of maternal preeclampsia, for which the risk of which is elevated in diabetic pregnancies. Also, if the is large, which can still happen despite good glycemic control, there is an increased risk of maternal and trauma. This is defined as EFW greater than 4500 gm. An elective delivery can be offered when the EFW is > 4500 gm at term to reduce the risk of shoulder dystocia. Long-term risk to offspring from poor maternal glycemic control include: obesity, cardiovascular disease, impaired glucose tolerance and Type 2 diabetes were reviewed. Recommended carbohydrate allocation ranges: 30-45 g for breakfast, 45-60 g for lunch and dinner, and 15-g snacks roughly 2-3 hours after each meal. Protein 70grams per day. High protein intake for breakfast may help during most insulin resistance period of the day A1c less than 6% has the lowest risk for LGA SUMMARY/RECOMMENDATION: The following is a summary of our recommendations: 1. Blood work: Per primary Ob in the presence of concerning s/s 2. Medication: Lantus increased to 28 units each evening Other medications as above 3. testing: Twice weekly NST w/ weekly DVP at 32 weeks growth ultrasounds every 4 weeks starting at 28 weeks 4. Delivery timing: Consider planned delivery as previously indicated by MFM MD consult not or before if indicated due to uncontrolled glucose levels Use 1/2 dose of insulin the night before her planned delivery. GDMA2:may monitor patient's BG every 4hrs during latent labor, every 1 hr during active labor with goal BG to be less than 140mg/dl. Can use insulin sliding scale prn hyperglycemia. No need for insulin use the day of her delivery With concern for pre-gestational diabetes post glucose measuring (fasting and 1 hr PP after each meal) is recommended while in patient post with f/u to PCP after delivery 5. Post : As she has only gestational diabetes, there is no need for glucose testing or medication after her delivery. Please obtain a 2-hour GTT directly while still hospitalized after delivery or 4-12 weeks out patient and then A1c yearly as the patient has a 20% risk of having or developing diabetes later on. 6. Follow-up appointment: None needed Weekly CGM data downloads TIME OF CONSULTATION: 30 minutes with the patient, >50% in discussion and counseling, coordination of care which was [id number], review of records and communication back to referring provider. JOE Mathur 12/25/24 1534 documented in this encounter [facility] 12-23-2024 History of Present illness Narrative Reason [...] total of 4times daily. Continuous Glucose Sensor ([employer] G7 Sensor) misc 1 each, Does not [...] nursing note reviewed. Exam conducted with a blood bank manager present. Vitals: Estimated body mass index is 40.01 kg/m as calculated from the following: Height as of 01/16/24: 6'. Weight as of this encounter: 295 lb. BP: 120/70 Patient's last menstrual period was 04/12/2024. ASSESSMENT & PLAN ICD-10-CM 1. 36 weeks gestation of ([facility]) Z3A.36 POCT urinalysis dipstick manually resulted 2. Third trimester ([facility]) Z34.93 POCT urinalysis dipstick manually resulted CULTURE, GROUP B STREP WITH SUSCEPTIBLITY CULTURE, GROUP B STREP WITH SUSCEPTIBLITY 3. Gestational diabetes mellitus (GDM), antepartum, gestational diabetes method of control unspecified ([facility]) O24.419 Patient is doing well but has [...] Miguel Hannon DO documented in this encounter [facility] 12-18-2024 Miscellaneous Notes RN spoke to Javid via phone. Javid is unable to connect to [employer] Video call with Magnus Thomason NP. Patient stated that [employer] keeps kicking her out . Another link sent by Magnus to patient's phone but patient was unable to open link or connect to the internet. Magnus reviewed the patient's sugar logs and increased the patient's Insulin Lantus to 20 units at night. Patient verbalized understanding and appointment was rescheduled to 12/25/24 with Magnus Thomason NP. documented in this encounter [facility] 12-18-2024 Telephone encounter Note RN spoke to Javid via phone. Javid is unable to connect to [employer] call with Magnus Thomason NP. Patient stated that [employer] keeps kicking her out . Another link sent by Magnus to patient's phone but patient was unable to open link or connect to the internet. Magnus reviewed the patient's sugar logs and increased the patient's Insulin Lantus to 20 units at night. Patient verbalized understanding and appointment was rescheduled to 12/25/24 with Magnus Thomason NP. [facility] 12-16-2024 History of Present illness Narrative Reason [...] disease Father Adebayo Lara Stroke Father Adebayo [place] Diabetes Maternal Grandfather James Alcaraz Hypertension Maternal [...] PLAN ICD-10-CM 1. 35 weeks gestation of ([facility]) Z3A.35 POCT urinalysis dipstick manually resulted 2. Third trimester ([facility]) Z34.93 POCT urinalysis dipstick manually resulted 3. Gestational diabetes mellitus (GDM), antepartum, gestational diabetes method of control unspecified ([facility]) O24.419 Return OB: Patient presents today for [...] of: ARELI Espinoza documented in this encounter [facility] 12-09-2024 Miscellaneous Notes Called pt to discuss her insulin change for this week. Mary Scanlon reviewed her blood sugars and would like her to increase her lantus in the evening to 16 units. Pt verbalized understanding, we will pull her report again next week. documented in this encounter [facility] 12-09-2024 Telephone encounter Note Called pt to discuss her insulin change for this week. Mary Murrellkathie reviewed her blood sugars and would like her to increase her lantus in the evening to 16 units. Pt verbalized understanding, we will pull her report again next week. [facility] 12-03-2024 Miscellaneous Notes Called patient regarding Dexcom CGM report from 11/29 to 12/01/24 and had to leave a message. RADHA Mathur, reviewed patient's report and increased her Lantus dose to 12 units each evening. Will send patient a [employer] message as well and asked patient to confirm with us via phone or [employer] that she received the dose change information. [facility]-03-[facility]24 Telephone encounter Note Called patient regarding Dexcom CGM report from 11/29 to 12/01/24 and had to leave a message. RADHA Mathur, reviewed patient's report and increased her Lantus dose to 12 units each evening. Will send patient a [employer] message as well and asked patient to confirm with us via phone or [employer] that she received the dose change information. [facility] 12-02-2024 History of Present illness Narrative Reason [...] mg, Daily RT Blood Glucose Monitoring Suppl (GOkey Glucometer) w/Device kit 1 kit, Does not [...] Father Adebayo Marco Diabetes Maternal Grandfather James [place] Hypertension Maternal Grandmother Sandy [place] Diabetes Paternal Grandfather Rito Marco Kidney disease [...] nursing note reviewed. Exam conducted with a blood bank manager present. Vitals: Estimated body mass index is 39.3 kg/m as calculated from the following: Height as of 01/16/24: 6'. Weight as of this encounter: 289 lb 12.8 oz. BP: 114/76 Patient's last menstrual period was 04/12/2024. ASSESSMENT & PLAN ICD-10-CM 1. Third trimester ([facility]) Z34.93 POCT urinalysis dipstick manually resulted 2. 33 weeks gestation of ([facility]) Z3A.33 POCT urinalysis dipstick manually resulted 3. Gestational diabetes mellitus (GDM), antepartum, gestational diabetes method of control unspecified ([facility]) O24.419 Continuous Glucose Sensor (Dexcom [facility]: Patient presents today for a routine obstetrics appointment. Patient is currently 33w3d . Patient states she is doing well but has complaints of being tired due to current . Patient has verbalizes frequent movement. labor precautions was discussed/given and patient was instructed to perform kick counts three times a day. Pt to have repeat anatomy scan at [facility] on 12/11. Discussed delivery between 37-39 weeks d/t being on Lantus. Orders Placed This Encounter Procedures POCT urinalysis dipstick manually resulted Follow Up: Patient is to return to office in 2 week for routine OB appointment. Documented by Katarzyna Malagon LPN on behalf of: Miguel Hannon DO documented in this encounter [facility] 11-28-2024 History of Present illness Narrative Headache/epigastric pain/blurry vision/swelling? No Cramping/contractions? No Spotting/vaginal bleeding? No Loss or gush of fluid like your water may have broken? No Do you have cats at home? No Do you change the litter box (reason: risk of toxoplasmosis)? N/A Genetic testing done this here or other office? No Have you been seen here at [facility] in a previous ? No Recent ER visits or hospitalizations? No Bring blood sugar log or meter with you today? (Please bring them with you for every visit at [facility]) Yes, Dexcom report Flu vaccine (Feb-June)? [...] TESTS AND ULTRASOUND REPORTS: Referral records and [facility] chart were reviewed Pertinent Ultrasound findings [...] more likely to fail compared to insulin. termite technician data on children whose mothers took oral [...] CGM we will be reviewed weekly by [facility]. Status post diabetic education nutrition counseling at [facility] Detailed anatomy ultrasound scheduled for 12/11/2024 in [facility] Repeat growth ultrasound at 38 weeks gestation, through primary OB Recommend weekly testing for the remainder of , through primary OB Delivery recommendations : Recommend delivery at [id number] Discuss delivery if estimated weight is >4500g [...] developing diabetes later on. 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 Patient does have ultrasound and office visit scheduled with us. Thank you for allowing me to participate in the care of Javid Prasad. If there any questions please do not hesitate to contact us. Saul Granados MD Maternal- Medicine [facility] [address] [place] [address] This document was created with [employer] technology. Though I make every effort to review the dictation as it is transcribed, on occasion the spoken word can be misinterpreted by the technology leading to inappropriate words, phrases, or sentences. This note is addressed to the requesting provider as a consultation for clinical guidance. Specific medical abbreviations are occasionally used and those are generally approved by the [place]?Board of?Obstetrics and?Gynecology?as well as?Ethan s abbreviations. The above plan of care was based solely on the diagnoses for which a consultation was requested. ?More frequent testing may be indicated based on her other medical/obstetrical conditions. The management of other or medical conditions is beyond the scope of requested consultation and will continue to be followed by the primary field pipelines supervisor or primary care provider. Note to patient: [...] of the practitioner. [facility] History of Present illness Narrative Pt [...] morning and sched. documented in this encounter [facility] 11-26-2024 Miscellaneous Notes Called pt to let her know that Magnus Thomason reviewed her dexcom and would like her to start marking her fasting time and number. If she does know what her fasting numbers are and if they are consistently over 95 then she needs an appt to start medication. She can call and make that appt at [phone] option #3. It looks as though her fastings are running above target but would like to see what the actual numbers are running. documented in this encounter [facility] 11-26-2024 Telephone encounter Note Called pt to let her know that Magnus Thomason reviewed her dexcom and would like her to start marking her fasting time and number. If she does know what her fasting numbers are and if they are consistently over 95 then she needs an appt to start medication. She can call and make that appt at [phone] option #3. It looks as though her fastings are running above target but would like to see what the actual numbers are running. [facility] 11-25-2024 Miscellaneous Notes Called regarding food logs [...] meals. Asked that she call back at [phone] and let us know if she is having any consistent elevated blood sugars. documented in this encounter [facility] 11-25-2024 Telephone encounter Note Called [...] meals. Asked that she call back at [phone] and let us know if she is having any consistent elevated blood sugars. [facility] 11-20-2024 History of Present illness Narrative DIABETES [...] care for you: OB Provider Family Doctor [employer] Name: Dr. Alvin Hannon Name: Dr. Karena [...] first Is there anything about your culture, scientology, or personal beliefs we need to know about to care for you: Other Tracking Primary Language spoken: Estonian [22] Primary Language for learning: Estonian Are you currently in a relationship where you are physically hurt, threatened or made to fee afraid? [] Yes [] No Diamond Grader needed? [] Yes [] No Marital status/Living [...] Interpersonal Safety: Unknown (06/07/2023) Received from [facility] [place] [facility] Fear of [...] If yes, where: On thge following scale, [place] the number, which describes your current level [...] cooking/food storage Has everything Food Assistance(Ex.WIC, Food [place]) Declined Dining out Yes Twice a week Appetite/Appetite changes Flucuates, better lately Weight History Stable Do you have cats at home? Feeding Plans Breast Feeding If you have cats, who cleans the litter box? Cravings/Aversions/Pica Only food aversions to meat Nutrition Assessment Worksheet: Week/Weekend Food Recall Breakfast Estonian muffin with cream cheese or yogurt, water [...] time 38 minutes. documented in this encounter [facility] 11-18-2024 History of Present illness Narrative Reason [...] nursing note reviewed. Exam conducted with a blood bank manager present. Vitals: Estimated body mass index is 38.52 kg/m as calculated from the following: Height as of 24: 6'. Weight as of this encounter: 284 lb. BP: 112/70 Patient's last menstrual period was 04/12/2024. ASSESSMENT & PLAN ICD-10-CM 1. Third trimester ([facility]) Z34.93 Urine dip 2. 31 weeks gestation of ([facility]) Z3A.31 Urine dip 3. Gestational diabetes mellitus (GDM), antepartum, gestational diabetes method of control unspecified ([facility]) O24.419 Return OB: Patient presents today for a routine obstetrics appointment. Patient is currently 31w3d . Patient states she is doing well but has complaints of being tired due to current . Patient has verbalizes frequent movement. labor precautions was discussed/given and patient was instructed to perform kick counts three times a day. Pt being sent to [facility] to complete anatomy scan. RVOT and LVOT and lips not evaluated. Pt voiced understanding. Orders Placed This Encounter Procedures Urine dip Follow Up: Patient is to return to office in 2 week for routine OB appointment. Documented by Katarzyna Malagon LPN on behalf of: Miguel Hannon DO documented in this encounter [facility] 11-03-2024 History of Present illness Narrative Reason [...] PLAN ICD-10-CM 1. 29 weeks gestation of ([facility]) Z3A.29 POCT urinalysis dipstick manually resulted 2. Third trimester ([facility]) Z34.93 POCT urinalysis dipstick manually resulted Return [...] Miguel Hannon DO documented in this encounter [facility] 10-21-2024 Note [facility] Consult Note Reason [...] History reviewed. No pertinent surgical history. SH: [employer] D[employer] of Health Tobacco Use: Low Risk [...] normal affect Orientation (more content not included)... [facility] 10-21-2024 History of Present illness Narrative Reason [...] ASSESSMENT & PLAN ICD-10-CM 1. Second trimester ([facility]) Z34.92 POCT urinalysis dipstick manually resulted 2. 27 weeks gestation of ([facility]) Z3A.27 POCT urinalysis dipstick manually resulted Return [...] of: ARELI Espinoza documented in this encounter [facility] 09-16-2024 History of Present illness Narrative Reason [...] Onset Arthritis Father Adebayo Marco Diabetes Father Adebayokaran Lara Hyperlipidemia Father Adebayo Lara Hypertension Father [...] nursing note reviewed. Exam conducted with a blood bank manager present. Vitals: Estimated body mass index is [...] Miguel Hannon DO documented in this encounter [facility] 08-19-2024 History of Present illness Narrative Reason [...] of: ARELI Espinoza documented in this encounter [facility] 07-22-2024 History of Present illness Narrative Reason [...] nursing note reviewed. Exam conducted with a blood bank manager present. Vitals: Estimated body mass index is [...] or undercooked meat, and stay away from [facility]. Patient has been consulted regarding any [...] Miguel Hannon DO documented in this encounter [facility] 02-19-2024 History of Present illness Narrative Reason [...] Father Adebayo Marco Diabetes Maternal Grandfather James [place] Hypertension Maternal Grandmother Sandy Lissa Diabetes Paternal Grandfather Rito Marco Kidney disease Paternal Grandfather Rito Lara SURGICAL [...] having a D&C Hysteroscopy performed at [facility] with Dr. Hannon. Pathology results was reviewed with the patient in great detail and all restrictions have been lifted. Follow Up: Patient is to return to the office for annual exam unless needed otherwise. Documented by ARELI Espinoza on behalf of: ARELI Espinoza documented in this encounter [facility] 01-16-2024 History of Present illness Narrative Reason for Appointment: Patient ID: Javid Prasad is a 33 y.o. female who presents for Pre-op Visit Patient presents today for Pre Op appointment. Patient is scheduled to undergo D&C Hysteroscopy, possible Myosure on 02/08/[address] Hannon at [facility]. MEDICATIONS Current Outpatient Medications Medication Instructions [...] reviewed, and patient is to proceed to [facility] OR. Follow Up: Patient is to follow up between 1-2 weeks post operative to assess proper healing and recovery from procedure. Documented by Katarzyna Malagon LPN on behalf of: Miguel Hannon DO documented in this encounter [facility] 12-25-2023 History of Present illness Narrative Reason [...] Father Adebayo Marco Diabetes Maternal Grandfather James [place] Hypertension Maternal Grandmother Sandy [place] Diabetes Paternal Grandfather Rito Marco Kidney disease [...] nursing note reviewed. Exam conducted with a blood bank manager present. Vitals: Estimated body mass index is [...] Miguel Hannon DO documented in this encounter [facility] 06-19-2022 Note This is a Telephone Appointment [...] dreaming in association with her activity. 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 Nutrition/Health Caffeine intake amount: [...] signed by Isabella Grant 06/19/22 15:[address] [facility] Evaluation note Diagnosis Pre-op examination Uterine [...] [facility] Insulin controlled gestational diabetes mellitus (GDM) in third trimester- Primary [facility] filedocumented in this [facility] filedocumented in this [facility] filedocumented in this [facility] filedocumented in this [facility] filedocumented in this [facility] filedocumented in this encounter [facility] Summary Purpose Family History No [...] section and content) DATE CREATED AUTHOR 07/04/2021 [facility] DATE CREATED AUTHOR AUTHOR'S ORGANIZ ATION 2021 [facility] DATE CREATED AUTHOR AUTHOR'S ORGANIZ ATION 06/21/2022 [facility] DATE CREATED AUTHOR AUTHOR'S ORGANIZ ATION 12/15/2022 [facility] DATE CREATED AUTHOR AUTHOR'S ORGANIZ ATION 12/13/2024 [facility] DATE CREATED AUTHOR AUTHOR'S ORGANIZ ATION 12/20/2024 [facility] DATE CREATED AUTHOR AUTHOR'S ORGANIZ ATION 12/25/2024 [facility] EP[facility] DATE CREATED AUTHOR AUTHOR'S ORGANIZ ATION 12/26/2024 [facility] Care Teams (unrecognized sec tion and content) Digital Content Coordinator Relationship Specialty Start Date End Date Adebayo Solares MD [address] [id number] PCP - General Family Medicine 11/19/23 [facility] Content Coordinator Relationship Specialty Start Date End Date Adebayo Solares MD [address] [place], [place] [phone] (Work) PCP - General Family Medicine 11/19/23 Digital Content Coordinator Relationship Specialty Start Date End Date Adebayo Solares MD [address] [place], [place] [phone] (Work) PCP - General Family Medicine 11/19/23 Digital Content Coordinator Relationship Specialty Start Date End Date Adebayo Solares MD [address] [place], [place] [phone] (Work) PCP - General Family Medicine 11/19/23 Digital Content Coordinator Relationship Specialty Start Date End Date Adebayo Solares MD [address] [place] [address] PCP - General Family Medicine 11/19/23 Digital Content Coordinator Relationship Specialty Start Date End Date Adebayo Solares MD [address] [place] [address] PCP - General Family Medicine 11/19/23 Digital Content Coordinator Relationship Specialty Start Date End Date Adebayo Solares MD [address] [place] [address] PCP - General Family Medicine 11/19/23 Digital Content Coordinator Relationship Specialty Start Date End Date Adebayo Solares MD [address] [place] [address] PCP - General Family Medicine 11/19/23 Digital Content Coordinator Relationship Specialty Start Date End Date Adebayo Solares MD [address] [place] [address] PCP - General Family Medicine 11/19/23 Digital Content Coordinator Relationship Specialty Start Date End Date Adebayo Solares MD [address] [place] [address] PCP - General Family Medicine 11/19/23 Digital Content Coordinator Relationship Specialty Start Date End Date Adebayo Solares MD [address] [place] [phone] (Work) PCP - General Family Medicine 11/19/23 Digital Content Coordinator Relationship Specialty Start Date End Date Adebayo Solares MD [address] [place] [address] PCP - General Family Medicine 11/19/23 Digital Content Coordinator Relationship Specialty Start Date End Date Adebayo Solares MD [address] [place] [address] PCP - General Family Medicine 11/19/23 Digital Content Coordinator Relationship Specialty Start Date End Date Adebayo Solares MD [address] [place] [address] PCP - General Family Medicine 11/19/23 Digital Content Coordinator Relationship Specialty Start Date End Date Adebayo Solares MD [address] [place] [address] PCP - General Family Medicine 11/19/23 Digital Content Coordinator Relationship Specialty Start Date End Date Adebayo Solares MD [address] [place] [address] PCP - General Family Medicine 11/19/23 Digital Content Coordinator Relationship Specialty Start Date End Date Adebayo Solares MD [address] [place] [address] PCP - General Family Medicine 11/19/23 Reason [...] of control unspecified Miguel Hannon, DO [address] [facility] [place] [address] Phone: tel: fax: [facility]- [facility] at [facility] [address] [place] [address] Phone: tel: fax: Referral ID Status Reason Start Date Expiration Date Visits Requested Visits Authorized [id number] Pending Review Specialty Services Required 11/11/2024 11/11/2025 [...] BE BASED ON THE PRIMARY CLINICAL RECORDS. [facility] [email or web address] [facility]. provides no warranty or guarantee of the accuracy or completeness of information in this document.
[2024-12-26 19:57] VITALS: BP 123/75; PULSE 92
== END 2024-12-26 20:25 | disposition home or self-care (01) ==
LOC: US 19:13 → FBC 19:15
PROVIDERS: PCP Family Medicine; Visit Provider Obstetrics & Gynecology
DX: O24.419 Gestational diabetes mellitus in pregnancy, unspecified control (principal); Z3A.36 36 weeks gestation of pregnancy
CPT/HCPCS: 76818

== ENCOUNTER 2024-12-30 19:57 | Outpatient (OUT) | payer BC, SELFPAY ==
[2024-12-30 20:04] VITALS: BP 137/63; PULSE 91
--- OUTSIDE RECORDS SUMMARY | 2024-12-30 20:05 | XMS_ITS | CCD ---
Author Organization [facility] Care Team Providers Care 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 Name Role Phone BECK, DR ADEBAYO Oropeza [...] Unavailable Solares, Adebayo Primary Care Unavailable Jaret GEODETIC ENGINEER-SALES OUTFITTERIsabella Attending Unavaila ble SolaresAdebayo Primary Care Unavailable Jaret GEODETIC ENGINEER-SALES OUTFITTERIsabella Attending Unavaila ble Solares, Adebayo Primary Care Unavailable SolaresAdebayo Consulting Unavailable SolaresAdebayo Referring Unavailable EMEKA HERNANDEZ Referring Unavailable Solares Adebayo GOYAL Primary Care Provider [phone] Unavailable Primary Care Provider Unavailfidel e RIDDHI, MIGUEL R Referring Unavailable RIDDHI, MIGUEL Attending Unavailable PAULA, MAUREEN Attending Unavailable RIDDHI, MIGUEL Attending Unavailable RIDDHI, MIGUEL Attending Unavailable PAULA, MAUREEN Attending Unavailable PAULA, MAUREEN Attending Unavailable RIDDHI, MIGUEL Attending Unavailable RIDDHI, MIGUEL Attending Unavailable RIDDHI, MIGUEL Attending Unavailable PAULA, MAUREEN Attending Unavailable RIDDHI, MIGUEL Attending Unavailable RIDDHI, MIGUEL R Referring Unavailable NAOMIE HUBER Attending Unavailable SAUL GRANADOS Attending Unavailable RIDDHI, MIGUEL R Referring Unavailable KATELINMAGNUS Attending Unavailable RIDDHI, MIGUEL R Referring Unavailable KATELIN, MAGNUS Attending Unavailable RIDDHI, MIGUEL R Referring Unavailable TRENT, MARIANA Attending Unavailable VIRAL ALLRED Referring Unavailable TRENTMARIANA Referring Unavailable TRENTMARIANA Referring Unavailable TRENT, MARIANA Referring Unavailable TRENT, MARIANA Referring Unavailable CHALINO, VIRAL Referring Unavailable TRENT, MARIANA Referring Unavailable TRENT, MARIANA Referring Unavailable CHALINO, VIRAL Referring Unavailable TRENT, MARIANA Referring Unavailable TRENT, MARIANA Referring Unavailable CHALINO, VIRAL Referring Unavailable Allergies Allergy Classification Reported Allergen(s) Allergy Type Date of Onset Reaction(s) Facility (1 source) No Known Medication Allergies; Translations: [No Known Medication Allergies] Propensity to adverse reactions to drug (disorder) [facility] Repository Medications Current Medications Medication Drug Class(es) Dates Sig (Normalized) Sig (Original) aspirin 81 mg delayed release oral tablet (20 sources) Platelet Aggregation Inhibitor, Nonsteroidal Anti-inflammatory Drug take 1 tablet by mouth in the morning aspirin 81 MG EC tablet Take 81 mg by mouth in the morning. Active Blood Glucose Monitoring Suppl (D-Care Glucometer) w/Device kit (20 sources) Start: 11-10-2024 End: 11-10-2025 Blood Glucose [...] Active Continuous Glucose Sensor (Dexcom G7 Sensor) mis (15 sources) Start: 12-02-2024 End: 01-01-2025 Continuous Glucose [...] (Reorder) isopropyl alcohol 0.7 ml/ml medicated pad (20 sources) Start: 11-10-2024 Alcohol Swabs (Alcohol Prep Pad) 70 % pads Indications: Gestational diabetes mellitus (GDM), antepartum, gestational diabetes method of control unspecified ([facility]) , Elevated glucose tolerance test Apply 1 [...] 12-25-2023 Chronic Other and delivery including normal (20 sources) Second trimester ; Translations: [Encounter for [...] of ] 12-16-2024 Episodic Residual codes; unclassified (2 sources) Gestation period, 36 weeks; Translations: [36 weeks gestation of ] 12-23-2024 Episodic Residual codes; unclassified (1 source) Family history of diabetes mellitus; Translations: [Family history of diabetes mellitus] Onset: 11-28-2024 Episodic Residual codes; unclassified (1 source) 32 weeks gestation of ; Translations: [32 weeks gestation of ] Onset: 11-28-2024 Episodic Residual codes; unclassified (2 sources) Gestation period, 37 weeks; Translations: [37 weeks gestation of ] 12-30-2024 Episodic Syncope (1 source) Syncope and collapse; Translations: [Syncope and collapse] Onset: 12-12-2022 Episodic Unclassified (1 source) GDM, med start Onset: 11-28-2024 Unclassified (1 source) Gestational Diabetes Onset: 11-20-2024 Results Test Name Value Interpretation Reference Range Facility Urinalysis macro (dipstick) panel (U)on 12-30-2024 Bilirubin, UA Negative Negative - 4(70) +++ mg/dL [facility] Blood, UA Negative Negative - 50 Osmin/mcL [facility] Clarity, UA Clear [facility] Color, UA Yellow [facility] Glucose, UA Negative Negative - 1999(110) ++++ mg/dL [facility] Interpretation and review of laboratory results Normal [facility] Ketones, UA Negative Negative - 160(16) ++++ mg/dL [facility] Leukocytes, UA Negative Negative - 500+++ Oumou/mcL [facility] Nitrite, UA Negative Negative - Positive [facility] pH, UA 6 5 - 9 [facility] Protein, UA Negative Negative - 1999(20) ++++ mg/dL [facility] Spec Grav, UA 1.02 1 - 1.03 [facility] care Urobilinogen, UA 0.2 0.2 - 12 mg/dL [facility] US OB BPP W NON-STRESS on 12-26-2024 [place] [address] Ultrasound Report Signed Patient: JAVID PRASAD MR#: [id number] : 1990 Acct:[id number] Age/Sex: 34 / F ADM Date: 12/26/24 Loc: US Attending Dr: Miguel Hannon D.O. Ordering Physician: Miguel Hannon D.O. Date of Service: 12/26/24 Procedure(s): US OB BPP w non-stress Accession Number(s): [id number] cc: Miguel Hannon D.O.; ADEBAYO SOLARES D.O. The [place] [id number] Patient Name: JAVID PRASAD MRN: [facility]:[id number] date: 1990 Sex: F Assigned Patient Location: [facility] Current Patient Location: Accession/Order Number: [id number] Exam Date: 12/26/2024 19:20 Report Date: 12/26/2024 21:30 At the request of: MIGUEL HANNON DO Procedure: US OB BPP w non-stress Ultrasound biophysical profile HISTORY: Gestational diabetes Adequate breathing movement, gross body movement, tone and amniotic fluid volume for total score of 8 out of 8. The amniotic fluid index is 14.87 cm within normal limits. The heart rate 127 bpm. US/US OB BPP w non-stress IMPRESSION: Adequate ultrasound biophysical profile Impression dictated by: Barry Hough M.D. 12/26/2024 9:30 PM Dictation Location: [place] [address] Electronically authenticated by: [id number] Y Date: 12/26/2024 21:30 Dictated By: Barry Hough M.D. Signed By: 12/26/242132 DD/ 29 TD/TT: Director Post: [facility] Radiology, Radiologist, MD - 12/26/2024 [place] [address] Ultrasound Report Signed Patient: JAVID PRASAD MR#: [id number] : 1990 Acct:[id number] Age/Sex: 34 / F ADM Date: 12/26/24 Loc: US Attending Dr: Miguel Hannon D.O. Ordering Physician: Miguel Hannon D.O. Date of Service: 12/26/24 Procedure(s): US OB BPP w non-stress Accession Number(s): [id number] cc: Miguel Hannon D.O.; ADEBAYO SOLARES D.O. The [address] [id number] Patient Name: JAVID PRASAD MRN: [facility]:[id number] date: 1990 Sex: F Assigned Patient Location: [facility] Current Patient Location: Accession/Order Number: [id number] Exam Date: 12/26/2024 19:20 Report Date: 12/26/2024 21:30 At the request of: MIGUEL HANNON DO Procedure: US OB BPP w non-stress Ultrasound biophysical profile HISTORY: Gestational diabetes Adequate breathing movement, gross body movement, tone and amniotic fluid volume for total score of 8 out of 8. The amniotic fluid index is 14.87 cm within normal limits. The heart rate 127 bpm. US/US OB BPP w non-stress IMPRESSION: Adequate ultrasound biophysical profile Impression dictated by: Barry Hough M.D. 12/26/2024 9:30 PM Dictation Location: [place] [address] Electronically authenticated by: [id number] Y Date: 12/26/2024 21:30 Dictated By: Barry Hough M.D. Signed By: 12/26/242132 DD/ 29 TD/TT: Director Post: [facility] Radiology Study observation (narrative) [facility] US OB BPP W NON-STRESS Ordered By: Radiologist Radiology on 12-26-2024 [facility] Work Phone: Orders Onlyon 12-23-2024 Orders Only [id number] Javid Prasad 1990 F Date Provider Department Center 12/23/2024 [facility] Family History Problem Relation Age of Onset Atrial fibrillation Mother Diabetes Father Kidney disease Father Heart attack Maternal Grandmother Family Status - Relation Status Age at Mother Alive Father Alive Maternal Grandmother Normal [facility] Urinalysis macro (dipstick) panel (U)on 12-23-2024 Bilirubin, UA Negative Negative - 4(70) +++ mg/dL [facility] Blood, UA Negative Negative - 50 Osmin/mcL [facility] Clarity, UA Clear [facility] re Color, UA Yellow [facility] Glucose, UA Negative Negative - 1999(110) ++++ mg/dL [facility] Interpretation and review of laboratory results Abnormal [facility] Ketones, UA Negative Negative - 160(16) ++++ mg/dL [facility] Leukocytes, UA Positive Negative - 500+++ Oumou/mcL [facility] Comment on above: 2+ Nitrite, UA Negative Negative - Positive [facility] pH, UA 6 5 - 9 [facility] Protein, UA Positive Negative - 1999(20) ++++ mg/dL [facility] Spec Grav, UA 1.015 1 - 1.03 [facility] care Urobilinogen, UA 1.0 0.2 - 12 mg/dL [facility] US OB BPP W NON-STRESS on 12-19-2024 The [place] [id number] Ultrasound Report Signed Patient: JAVID PRASAD MR#: [id number] : 1990 Acct:[id number] Age/Sex: 33 / F ADM Date: 12/19/24 Loc: US Attending Dr: Miguel Hannon D.O. Ordering Physician: Miguel Hannon D.O. Date of Service: 12/19/24 Procedure(s): US OB BPP w non-stress Accession Number(s): [id number] cc: Miguel Hannon D.O.; ADEBAYO SOLARES D.O. The [address] [address] Patient Name: JAVID PRASAD MRN: [facility]:[id number] date: 1990 Sex: F Assigned Patient Location: [facility] Current Patient Location: Accession/Order Number: [id number] Exam Date: 12/19/2024 19:14 Report Date: 12/19/2024 [...] Deutsch M.D. 12/19/2024 9:48 PM Dictation Location: [place] [address] Electronically authenticated by: [id number] Y Date: 12/19/2024 21:48 Dictated By: Sergo Deutsch D.O. Signed By: 12/19/242149 DD/ 47 TD/TT: Director Post: [facility] Radiology, Radiologist, MD - 12/19/2024 The [place] [id number] Ultrasound Report Signed Patient: JAVID PRASAD MR#: [id number] : 1990 Acct:[id number] Age/Sex: 33 / F ADM Date: 12/19/24 Loc: US Attending Dr: Miguel Hannon D.O. Ordering Physician: Miguel Hannon D.O. Date of Service: 12/19/24 Procedure(s): US OB BPP w non-stress Accession Number(s): [id number] cc: Miguel Hannon D.O.; ADEBAYO SOLARES D.O. [place] [address] Patient Name: JAVID PRASAD MRN: [facility]:[id number] date: 1990 Sex: F Assigned Patient Location: [facility] Current Patient Location: Accession/Order Number: [id number] Exam Date: 12/19/2024 19:14 Report Date: 12/19/2024 [...] Deutsch M.D. 12/19/2024 9:48 PM Dictation Location: [place] [address] Electronically authenticated by: [id number] Y Date: 12/19/2024 21:48 Dictated By: Sergo Deutsch D.O. Signed By: 12/19/242149 DD/ 47 TD/TT: Director Post: [facility] Radiology Study observation (narrative) [facility] US OB BPP W NON-STRESS Ordered By: Radiologist Radiology on 12-19-2024 [facility] [employer] Work Phone: Urinalysis macro (dipstick) panel (U)on 12-16-2024 Bilirubin, UA Negative Negative - 4(70) +++ mg/dL [facility] Blood, UA Negative Negative - 50 Osmin/mcL [facility] Clarity, UA Clear [facility] Color, UA Yellow [facility] Glucose, UA Negative Negative - 1999(110) ++++ mg/dL [facility] Interpretation and review of laboratory results Abnormal [facility] Ketones, UA Negative Negative - 160(16) ++++ mg/dL [facility] Leukocytes, UA Positive Negative - 500+++ Oumou/mcL [facility] Nitrite, UA Negative Negative - Positive [facility] pH, UA 6 5 - 9 [facility] Protein, UA Negative Negative - 1999(20) ++++ mg/dL [facility] Spec Grav, UA 1.015 1 - 1.03 [facility] care Urobilinogen, UA 1.0 0.2 - 12 mg/dL [facility] US OB BPP W NON-STRESS on 12-12-2024 [place] [address] Ultrasound Report Signed Patient: JAVID PRASAD MR#: [id number] : 1990 Acct:[id number] Age/Sex: 33 / F ADM Date: 12/12/24 Loc: [facility] 250-[address]: Miguel Hannon D.O. Ordering Physician: Miguel Hannon D.O. Date of Service: 12/12/24 Procedure(s): US OB BPP w non-stress Accession Number(s): [id number] cc: Miguel Hannon D.O.; ADEBAYO SOLARES D.O. [place] [id number] Patient Name: JAVID PRASAD MRN: [id number]:[id number] date: 1990 Sex: F Assigned Patient Location: [facility] Current Patient Location: [facility] Accession/Order Number: [id number] Exam Date: 12/12/2024 19:06 Report Date: 12/12/2024 [...] Mcdermott M.D. 12/12/2024 8:20 PM Dictation Location: [place] [address] Electronically authenticated by: [id number] Y Date: 12/12/2024 20:20 Dictated By: Tutu Mcdermott M.D. Signed By: 12/12/242022 DD/ 19 TD/TT: Director Post: [facility] Radiology, Radiologist, MD - 12/12/2024 [place] [address] Ultrasound Report Signed Patient: JAVID PRASAD MR#: [id number] : 1990 Acct:[id number] Age/Sex: 33 / F ADM Date: 12/12/24 Loc: [place] [address]- Attending Dr: Miguel Hannon D.O. Ordering Physician: Miguel Hannon D.O. Date of Service: 12/12/24 Procedure(s): US OB BPP w non-stress Accession Number(s): [id number] cc: Miguel Hannon D.O.; ADEBAYO SOLARES D.O. The [place] [address] Patient Name: JAVID PRASAD MRN: [facility]:[id number] date: 1990 Sex: F Assigned Patient Location: [facility] Current Patient Location: [facility] Accession/Order Number: [id number] Exam Date: 12/12/2024 19:06 Report Date: 12/12/2024 [...] Mcdermott M.D. 12/12/2024 8:20 PM Dictation Location: [employer] Electronically authenticated by: [id number] Y Date: 12/12/2024 20:20 Dictated By: Tutu Mcdermott M.D. Signed By: 12/12/242022 DD/ 19 TD/TT: Director Post: [facility] [employer] Radiology Study observation (narrative) [facility] [employer] US OB BPP W NON-STRESS Ordered By: Radiologist Radiology on [facility]-12-20[facility]: US OB BPP W NON-STRESS on 12-06-2024 [place] [address] Ultrasound Report Signed Patient: JAVID PRASAD MR#: [id number] : 1990 Acct:[id number] Age/Sex: 33 / F ADM Date: 12/05/24 Loc: US Attending Dr: Miguel Hannon D.O. Ordering Physician: Miguel Hannon D.O. Date of Service: 12/05/24 Procedure(s): US OB BPP w non-stress Accession Number(s): [id number] cc: Miguel Hannon D.O.; ADEBAYO SOLARES D.O. [address] [address] Patient Name: JAVID PRASAD MRN: [facility]:[id number] date: 1990 Sex: F Assigned Patient Location: [facility] Current Patient Location[place] [facility] Accession/Order Number: [id number] Exam Date: 12/05/2024 19:12 Report Date: 12/06/2024 [...] Mcdermott M.D. 12/06/2024 5:01 PM Dictation Location: [place] [address] Electronically authenticated by: [id number] Y Date: 12/06/2024 17:01 Dictated By: Tutu Mcdermott M.D. Signed By: 12/06/242015 DD/ 00 TD/TT: Director Post: [facility] Radiology, Radiologist, - 12/06/2024 [place] [address] Ultrasound Report Signed Patient: JAVID PRASAD MR#: [id number] : 1990 Acct:[id number] Age/Sex: 33 / F ADM Date: 12/05/24 Loc: US Attending Dr: Miguel Hannon D.O. Ordering Physician: Miguel Hannon D.O. Date of Service: 12/05/24 Procedure(s): US OB BPP w non-stress Accession Number(s): [id number] cc: Miguel Hannon D.O.; ADEBAYO SOLARES D.O. [address] [address] Patient Name: JAVID PRASAD MRN: [id number] date: 1990 Sex: F Assigned Patient Location: [facility] Current Patient Location[place] [facility] Accession/Order Number: [id number] Exam Date: 12/05/2024 19:12 Report Date: 12/06/2024 [...] Mcdermott M.D. 12/06/2024 5:01 PM Dictation Location: [place] [address] Electronically authenticated by: [id number] Y Date: 12/06/2024 17:01 Dictated By: Tutu Mcdermott M.D. Signed By: 12/06/242015 DD/ 00 TD/TT: Director Post: [facility] [employer] Radiology Study observation (narrative) [facility] [employer] US OB BPP W NON-STRESS Ordered By: Radiologist Radiology on 12-06-2024 [facility] Work Phone: Urinalysis macro (dipstick) panel (U)on 12-02-2024 Bilirubin, UA Negative Negative - 4(70) +++ mg/dL [facility] Blood, UA Negative Negative - 50 Osmin/mcL [facility] [employer] Clarity, UA Clear [facility] [employer] re Color, UA Yellow [facility] [facility] e Glucose, UA Negative Negative - 2000(110) ++++ mg/dL [facility] Interpretation and review of laboratory results Abnormal [facility] Ketones, UA Negative Negative - 160(16) ++++ mg/dL [facility] Leukocytes, UA Positive Negative - 500+++ Oumou/mcL [facility] Nitrite, UA Negative Negative - Positive [facility] pH, UA 6 5 - 9 [facility] Protein, UA Negative Negative - 2000(20) ++++ mg/dL [facility] Spec Grav, UA 1.025 1 - 1.03 [facility] Urobilinogen, UA 1.0 0.2 - 12 mg/dL [facility] POCT Hemoglobin A1con 2024 HbA1c (Bld) [Mass fraction] 5.7 % 4 - 7 % [facility] US OB BPP W NON-STRESS on 11-27-2024 [place] [address] Ultrasound Report Signed Patient: JAVID PRASAD MR#: [id number] : 1990 Acct:[id number] Age/Sex: 33 / F ADM Date: 11/27/24 Loc: US Attending Dr: Miguel Hannon D.O. Ordering Physician: Miguel Hannon D.O. Date of Service: 11/27/24 Procedure(s): US OB BPP w non-stress Accession Number(s): [id number] cc: Miguel Hannon D.O.; ADEBAYO SOLARES D.O. [place] [id number] Patient Name: JAVID PRASAD MRN: [id number]:[id number] date: 1990 Sex: F Assigned Patient Location: [facility] Current Patient Location: Accession/Order Number: [id number] Exam Date: 11/27/2024 23:39 Report Date: 11/27/2024 [...] Deutsch M.D. 11/27/2024 11:40 PM Dictation Location: [place] [address] Electronically authenticated by: [id number] Y Date: 11/27/2024 23:40 Dictated By: Sergo Deutsch D.O. Signed By: 11/27/242341 DD/ 39 TD/TT: Director Post: [facility] Radiology, Radiologist, MD - 11/27/2024 [place] [address] Ultrasound Report Signed Patient: JAVID PRASAD MR#: [id number] : 1990 Acct:[id number] Age/Sex: 33 / F ADM Date: 11/27/24 Loc: US Attending Dr: Miguel Hannon D.O. Ordering Physician: Miguel Hannon D.O. Date of Service: 11/27/24 Procedure(s): US OB BPP w non-stress Accession Number(s): [id number] cc: Miguel Hannon D.O.; ADEBAYO SOLARES D.O. The [place] [address] Patient Name: JAVID PRASAD MRN: [facility]:[id number] date: 1990 Sex: F Assigned Patient Location: [facility] Current Patient Location: Accession/Order Number: [id number] Exam Date: 11/27/2024 23:39 Report Date: 11/27/2024 [...] Deutsch M.D. 11/27/2024 11:40 PM Dictation Location: [place] [address] Electronically authenticated by: [id number] Y Date: 11/27/2024 23:40 Dictated By: Sergo Deutsch D.O. Signed By: 11/27/242341 DD/ 39 TD/TT: Director Post: [facility] Radiology Study observation (narrative) [facility] US OB BPP W NON-STRESS Ordered By: Radiologist Radiology on 11-27-2024 [facility] Work Phone: Urinalysis macro (dipstick) panel (U)on 11-18-2024 Bilirubin, UA Negative Negative - 4(70) +++ mg/dL [facility] Blood, UA Negative Negative - 50 Osmin/mcL [facility] Clarity, UA Clear [facility] re Color, UA Light Yellow [facility] Glucose, UA Trace Negative - 2000(110) ++++ mg/dL [facility] Interpretation and review of laboratory results Normal [facility] Ketones, UA Negative Negative - 160(16) ++++ mg/dL [facility] Leukocytes, UA Negative Negative - 500+++ Oumou/mcL [facility] Nitrite, UA Negative Negative - Positive [facility] pH, UA 6 5 - 9 [facility] e Protein, UA Negative Negative - 2000(20) ++++ mg/dL [facility] Spec Grav, UA 1.015 1 - 1.03 [facility] Urobilinogen, UA 4.0 0.2 - 12 mg/dL [facility] US OB INCOMPLETE ANATOMYon 0 11-14-2024 [place] [address] Ultrasound Report Signed Patient: JAVID PRASAD MR#: [id number] : 1990 Acct:[id number] Age/Sex: 33 / F ADM Date: 11/13/24 Loc: US Attending Dr: Miguel Hannon D.O. Ordering Physician: Miguel Hannon D.O. Date of Service: 11/13/24 Procedure(s): US OB incomplete anatomy Accession Number(s): [id number] cc: Miguel Hannon D.O.; ADEBAYO SOLARES D.O. The [place] [id number] Patient Name: JAVID PRASAD MRN: [facility]:[id number] date: 1990 Sex: F Assigned Patient Location: US Current Patient Location: Accession/Order Number: [id number] Exam Date: 11/14/2024 09:56 Report Date: 11/14/2024 [...] Jr., D.O. 11/14/2024 10:06 AM Dictation Location: [place] [address] Electronically authenticated by: [id number] Y Date: 11/14/2024 10:06 Dictated By: Mark Anthony Conner M.D. Signed By: 11/14/24 1009 DD/ 1006 TD/TT: Director Post: [facility] Radiology, Radiologist, MD - 11/14/[address] [address] Ultrasound Report Signed Patient: JAVID PRASAD MR#: [id number] : 1990 Acct:[id number] Age/Sex: 33 / F ADM Date: 11/13/24 Loc: US Attending Dr: Miguel Hannon D.O. Ordering Physician: Miguel Hannon D.O. Date of Service: 11/13/24 Procedure(s): US OB incomplete anatomy Accession Number(s): [id number] cc: Miguel Hannon D.O.; ADEBAYO SOLARES D.O. [address] [address] Patient Name: JAVID PRASAD MRN: [facility]:[id number] date: 1990 Sex: F Assigned Patient Location: US Current Patient Location: Accession/Order Number: [id number] Exam Date: 11/14/2024 09:56 Report Date: 11/14/2024 [...] Jr., D.O. 11/14/2024 10:06 AM Dictation Location: [place] [address] Electronically authenticated by: [id number] Y Date: 11/14/2024 10:06 Dictated By: Mark Anthony Conner M.D. Signed By: 11/14/24 1009 DD/ 1006 TD/TT: Director Post: [facility] Radiology Study observation (narrative) [facility] OB INCOMPLETE ANATOMYOrde red By: Radiologist Radiology on 11-14-2024 [facility] [employer] e Work Phone: GLUCOSE TOLERANCE 3 HOURon 0 11-10-2024 GLUCOSE TOLERANCE 3 HOUR High mg/dL [facility] Comment on above: GLU FAST 113H (<95) Col: 11/10/24 0845 GLU 1HR 208H (<180) Col: 11/10/24 0945 GLU 2HR 152 (<155) Col: 11/10/24 1052 GLU 3HR 81 (<140) Col: 11/10/24 1147 Interpretation and review of laboratory results Abnormal [facility] Urinalysis macro (dipstick) panel (U)on 11-03-2024 Bilirubin, UA Negative Negative - 4(70) +++ mg/dL [facility] Blood, UA Negative Negative - 50 Osmin/mcL [facility] Clarity, UA Clear [facility] Color, UA Yellow [facility] Glucose, UA Positive Negative - 1999(110) ++++ mg/dL [facility] Interpretation and review of laboratory results Abnormal [facility] Ketones, UA Negative Negative - 160(16) ++++ mg/dL [facility] Leukocytes, UA Negative Negative - 500+++ Oumou/mcL [facility] Nitrite, UA Negative Negative - Positive [facility] pH, UA 7 5 - 9 [facility] e Protein, UA Trace Negative - 1999(20) ++++ mg/dL [facility] Spec Grav, UA 1.02 1 - 1.03 [facility] Urobilinogen, UA 1.0 0.2 - 12 mg/dL [facility] GROWTHon 10-31-2024 [place] [address] Ultrasound Report Signed Patient: JAVID PRASAD MR#: [id number] : 1990 Acct:[id number] Age/Sex: 33 / F ADM Date: 10/30/24 Loc: US Attending Dr: Maureen Feliz Ordering Physician: Maureen Feliz Date of Service: 10/30/24 Procedure(s): US OB growth Accession Number(s): [id number] cc: Maureen Feliz; ADEBAYO SOLARES D.O. [address] [address] Patient Name: JAVID PRASAD MRN: [id number] date: 1990 Sex: F Assigned Patient Location: US Current Patient Location: Accession/Order Number: [id number] Exam Date: 10/31/2024 07:37 Report Date: 10/31/2024 [...] Crow M.D. 10/31/2024 7:41 AM Dictation Location: [place] [address] Electronically authenticated by: [id number] Y Date: 10/31/2024 07:41 Dictated By: Katarzyna Crow M.D. Signed By: 10/31/24 0744 DD/ 0741 TD/TT: Director Post: [facility] Radiology, Radiologist, MD - 10/31/2024 [place] [address] Ultrasound Report Signed Patient: JAVID PRASAD MR#: [id number] : 1990 Acct:[id number] Age/Sex: 33 / F ADM Date: 10/30/24 Loc: US Attending Dr: Maureen Feliz Ordering Physician: Maureen Feliz Date of Service: 10/30/24 Procedure(s): US OB growth Accession Number(s): [id number] cc: Maureen Feliz; ADEBAYO SOLARES D.O. The [place] [address] Patient Name: JAVID PRASAD MRN: [id number] date: 1990 Sex: F Assigned Patient Location: Current Patient Location: Accession/Order Number: [id number] Exam Date: 10/31/2024 07:37 Report Date: 10/31/2024 [...] Crow M.D. 10/31/2024 7:41 AM Dictation Location: [place] [address] Electronically authenticated by: [id number] Y Date: 10/31/2024 07:41 Dictated By: Katarzyna Crow M.D. Signed By: 10/31/24 0744 DD/ TD/TT: Director Post: [facility] Radiology Study observation (narrative) [facility] OB GROWTHOrdered By: Layne ologfortunato Radiology on 10-31-2024 [facility] [employer] Work Phone: Office Visiton 10-21-2024 Follow-up visit [id number] Javid Prasad 1990 F Date Provider Department Center 10/21/2024 DanielTRENT MARIANA BEBETO [facility] Family History Problem Relation Age of Onset Atrial fibrillation Mother Diabetes Father Kidney disease Father Heart attack Maternal Grandmother Family Status - Relation Status Age at Mother Alive Father Alive Maternal Grandmother Level of Service:[address] [place] OFFICE/OUTPATIENT ESTABLISHED LOW MDM 20 MIN Normal [facility] Urinalysis macro (dipstick) panel (U)on 10-21-2024 Bilirubin, UA Negative Negative - 4(70) +++ mg/dL [facility] Blood, UA Negative Negative - 50 Osmin/mcL [facility] Clarity, UA Clear [facility] Color, UA Yellow [facility] Glucose, UA Negative Negative - 1999(110) ++++ mg/dL [facility] Interpretation and review of laboratory results Abnormal [facility] Ketones, UA Positive Negative - 160(16) ++++ mg/dL [facility] Leukocytes, UA Negative Negative - 500+++ Oumou/mcL [facility] Nitrite, UA Negative Negative - Positive [facility] pH, UA 5.5 5 - 9 [facility] Health[facility] e Protein, UA Negative Negative - 1999(20) ++++ mg/dL [facility] Spec Grav, UA 1.02 1 - 1.03 [facility] Urobilinogen, UA 1.0 0.2 - 12 mg/dL [facility] US OB 14+ WEEKS [...] at 18-Sep-2024 08:49:14 AM [facility] Normal Not Available Comment on above: Order Comment: US OB ANATOMY SINGLE W US OB CERVICAL LENGTH Estimated Date of Delivery: 01/17/25 Gestational Age as of 08/19/2024: 18w3d Urinalysis macro (dipstick) panel (U)on 09-16-2024 Bilirubin, UA Negative Negative - 4(70) +++ mg/dL [facility] Healthcare Blood, UA Negative Negative - 50 Osmin/mcL [facility] Clarity, UA Clear [facility] Color, UA Yellow [facility] Glucose, UA Negative Negative - 2000(110) ++++ mg/dL [facility] Interpretation and review of laboratory results Normal [facility] Ketones, UA Negative Negative - 160(16) ++++ mg/dL [facility] Leukocytes, UA Negative Negative - 500+++ Oumou/mcL [facility] Nitrite, UA Negative Negative - Positive [facility] pH, UA 6 5 - 9 [facility] Protein, UA Negative Negative - 1999(20) ++++ mg/dL [facility] Spec Grav, UA 1.025 1 - 1.03 [facility] Urobilinogen, UA 0.2 0.2 - 12 mg/dL [facility] GLUCOSE TOLERANCE 3 HOURon 0 08-23-2024 GLUCOSE TOLERANCE 3 HOUR High mg/dL [facility] Comment on above: GLU FAST 110H (<95) Col: 08/23/24 0738 GLU 1HR 173 (<180) Col: 08/23/24 0839 GLU 2HR 131 (<155) Col: 08/23/24 0939 GLU 3HR 67 (<140) Col: 08/23/24 1040 Interpretation and review of laboratory results Abnormal [facility] RECURRENT VAGINITIS (HTRX)on 08-20-2024 ATOPOBIUM VAGINAE [address] [facility] ATOPOBIUM VAGINAE Not detected [facility] BVAB 2,3 (BACTERIAL VAGINOSIS ASSOCIATED BACTERIA 2, 3); MOBILUNCUS SPP 0 [facility] BVAB 2,3 (BACTERIAL VAGINOSIS ASSOCIATED BACTERIA 2, 3); MOBILUNCUS SPP Not detected [facility] AGUSTIN ALBICANS, PARAPSILOSIS, TROPICALIS 0 [facility] AGUSTIN ALBICANS, PARAPSILOSIS, TROPICALIS Not detected [facility] AGUSTIN GLABRATA 0 [facility] AGUSTIN GLABRATA Not detected [facility] ealthcare AGUSTIN KRUSEI [address] [facility] hcare AGUSTIN KRUSEI Not detected [facility] CHLAMYDIA TRACHOMATIS 0 [facility] CHLAMYDIA TRACHOMATIS Not detected N [facility] GARDNERELLA VAGINALIS 0 [facility] GARDNERELLA VAGINALIS Not detected N [facility] MEGASPHAERA (TYPES 1, 2) 0 [facility] MEGASPHAERA (TYPES 1, 2) Not detected [facility] MYCOPLASMA GENITALIUM 0 [facility] MYCOPLASMA GENITALIUM Not detected [facility] NEISSERIA GONORRHOEAE 0 [facility] NEISSERIA GONORRHOEAE Not detected N [facility] TRICHOMONAS VAGINALIS 0 [facility] TRICHOMONAS VAGINALIS Not detected N [facility] GLUCOSE 1 HOURon 08-19-2024 Glucose [Mass/Vol] 182 mg/dL High NINF - 13 0 mg/dL [facility] Interpretation and review of laboratory results Abnormal [facility] Healthcar e Urinalysis macro (dipstick) panel (U)on 08-19-2024 Bilirubin, UA Positive Negative - 4(70) +++ mg/dL [facility] Comment on above: small Blood, UA Negative Negative - 50 Osmin/mcL [facility] Healthcare Clarity, UA Clear [facility] Color, UA Yellow [facility] Glucose, UA Negative Negative - 1999(110) ++++ mg/dL [facility] Interpretation and review of laboratory results Abnormal [facility] Ketones, UA Positive Negative - 160(16) ++++ mg/dL [facility] Comment on above: 15 Leukocytes, UA Negative Negative - 500+++ Oumou/mcL [facility] Healthcare Nitrite, UA Negative Negative - Positive [facility] pH, UA 6 5 - 9 [facility] Health[facility] e Protein, UA Positive Negative - 1999(20) ++++ mg/dL [facility] Comment on above: 30 Spec Grav, UA 1.025 1 - 1.03 [facility] Urobilinogen, UA 0.2 0.2 - 12 mg/dL [facility] Urinalysis macro (dipstick) panel (U)on 07-22-2024 Bilirubin, UA Negative Negative - 4(70) +++ mg/dL [facility] Blood, UA Negative Negative - 50 Osmin/mcL [facility] Clarity, UA Clear [facility] Healthca re Color, UA Yellow [facility] Health[facility] e Glucose, UA Negative Negative - 1999(110) ++++ mg/dL [facility] Interpretation and review of laboratory results Abnormal [facility] Ketones, UA Positive Negative - 160(16) ++++ mg/dL [facility] Comment on above: trace Leukocytes, UA Negative Negative - 500+++ Oumou/mcL [facility] Nitrite, UA Negative Negative - Positive [facility] pH, UA 6.5 5 - 9 [facility] Protein, UA Trace Negative - 1999(20) ++++ mg/dL [facility] Spec Grav, UA 1.025 1 - 1.03 [facility] Urobilinogen, UA 0.2 0.2 - 12 mg/dL [facility] CBC and differentialon 07-15 Hematocrit (Bld) [Volume fraction] 42 % 36 - 46 % [facility] Hemoglobin (Bld) [Mass/Vol] 13.6 g/dL 12.0 - 16.0 g/dL [facility] Platelets (Bld) [#/Vol] 392 10*3/uL 150 - 399 10*3/uL [facility] WBC (Bld) [#/Vol] 9.2 10*3/mL 3.3 - 10.0 10*3/mL [facility] CBC without diffon Rbc Mcv (Fl) By Automated Count 85.4 [facility] Drug Screen, Urineon 025 Amphetamine/Methamphe tamine Negative [facility] Barbiturates Negative [facility] Benzodiazepines Negative [facility] Cocaine Metabolite Negative [facility] Methadone Negative [facility] Opiates Negative [facility] Oxycodone Negative [facility] Phencyclidine Negative [facility] Thc Marijuana, Urine Negative [facility] Glucose 1h post 50g loadon 0 07-15-2024 Glucose, 1Hr PP 182 [facility] HBV surface Ag IA Qlon 07-15 Hepatitis B Surface Antigen Negative [facility] HIV 1+2 Ab+HIV1 p24 Ag IA Ql on 07-15-2024 HIV 1&2 AB/AG Non-Reactive [facility] Laboratory - Chemistry and C hemistry - challengeon 07-15-2024 Glucose [Mass/Vol] 111 mg/dL [facility] Laboratory - Hematology and Cell countson 07-15-2024 HbA1c (Bld) [Mass fraction] 5.5 % 4.0 - 6.0 % [facility] Comment on above: ADA RECOMMENDED LIMI T 4.0 - 6.0 ADA THERAPEUTIC TARGET < 7.0 ACTION SUGGESTED > 7.0 MLR HEMOGLOBIN A1Con 025 [facility] No Panel Informationon 07-15 [facility] Rubella IGG immune statuson 07-15-2024 Rubella immune IgG 1.77 [facility] T. pallidum IgG+IgM IA Ql (S )on 07-15-2024 Syphilis Non-Reactive [facility] Type and screenon 07-15-2024 Abo/Rh(D) Positive [facility] US OB TRANSVAGINALon 025 US OB [...] II, MD, PHD at 20-Jun-2024 08:24:08 AM [facility] Normal Not Available Comment on above: Order Comment: US OB TRANSVAGINAL No LMP recorded. [facility] PREG QUANT HCGon 025 HCG QUANTITATIVE 2792 mIU/mL [facility] a lthcare Comment on above: 5-50 [...] 3.5 % 0.9 - 7.0 % [facility] Erythrocyte distribution width (RBC) [Ratio] 13.2 % 11.0 - 15.0 % [facility] Hematocrit (Bld) [Volume fraction] 41.9 % 36.0 - 48.0 % [facility] Healthcar e Hemoglobin (Bld) [Mass/Vol] 13.8 g/dL 12.0 - 16.0 g/dL [facility] IMMATURE GRANULOCYTES ABS AUTO 0.02 [facility] Immature granulocytes/100 WBC (Bld) 0.3 % 0.0 - 0.5 % [facility] LYMPHOCYTES ABSOLUTE AUTO 2.5 [facility] Lymphocytes/100 WBC (Bld) 31.1 % 20.5 - 60.0 % [facility] MCH (RBC) [Entitic mass] 27.7 pg 26.7 - 34.0 pg [facility] MCHC (RBC) [Mass/Vol] 32.9 g/dL 29.9 - 35.2 g/dL [facility] MCV (RBC) [Entitic vol] 84 fL 81.0 - 99.0 fL [facility] MONOCYTES ABSOLUTE AUTO 0.5 [facility] Monocytes/100 WBC (Bld) 6.6 % 1.7 - 12.0 % [facility] NEUTROPHILS ABSOLUTE AUTO 4.6 [facility] Neutrophils/100 WBC (Bld) 57.7 % 43.0 - 75.0 % [facility] Platelet mean volume (Bld) [Entitic vol] 9.6 fL 9.5 - 13.5 fL [facility] are [facility] EO # 0.3 [facility] PLT 429 [facility] RBC [...] She can be sleepy during the day. [place] Sleepiness Scale score: 12. She is sleepy [...] included)... Normal [facility] CT HEAD WO CONon 12-21-2021 CT HEAD [...] by: CARLOS GALE Date: 2021-12-21 07:15 Normal [facility] CT TEMPORAL BONES WO CONon 0 [...] foramen are normal. Visualized paranasal sinuses clear. Windlasser spaces normal. Orbital contents unremarkable. Posterior fossa structures normal. IMPRESSION: Normal CT of the temporal bones. Electronically authenticated by: LOUIS BRAY Date: 2021-12-21 16:11 Normal [facility] Comprehensive Metabolic Empo n 05-10-2021 Albumin [Mass/Vol] 4.1 g/dL Normal 3.2-5.5 [facility] Comment on above: Performed By: #### E BS LIPID, EBS A1C, EBS CMP #### [facility] [address] [place] [id number] [place] Albumin/Globulin [Mass ratio] 1.3 {ratio} Normal [facility] Comment on above: Performed By: #### E BS LIPID, EBS A1C, EBS CMP #### [facility] [address] [place] [address] [place] ALP [Catalytic activity/Vol] 77 U/L Normal 32-92 [facility] Comment on above: Performed By: #### E BS LIPID, EBS A1C, EBS CMP #### [facility] [address] [place] [address] [place] ALT [Catalytic activity/Vol] 19 U/L Normal 10-60 [facility] Comment on above: Performed By: #### E BS LIPID, EBS A1C, EBS CMP #### [facility] [address] [place] [address] [place] AST [Catalytic activity/Vol] 18 U/L Normal 10-42 [facility] Comment on above: Performed By: #### E BS LIPID, EBS A1C, EBS CMP #### [facility] [address] [place] [address] [place] Bilirubin [Mass/Vol] 0.3 mg/dL Normal 0.3-1.2 [facility] Comment on above: Performed By: #### E BS LIPID, EBS A1C, EBS CMP #### [facility] [address] [place] [address] [place] Calcium [Mass/Vol] 9.2 mg/dL Normal 8.2-10.2 [facility] Comment on above: Performed By: #### E BS LIPID, EBS A1C, EBS CMP #### [facility] [address] [place] [address] [place] Chloride [Moles/Vol] 104 mmol/L Normal 95-114 [facility] Comment on above: Performed By: #### E BS LIPID, EBS A1C, EBS CMP #### [facility] [address] CO2 [Moles/Vol] 24.1 mmol/L Normal 22.0-30.0 [facility] Comment on above: Performed By: #### E BS LIPID, EBS A1C, EBS CMP #### [address] Creatinine [Mass/Vol] 0.69 mg/dL Normal 0.44-1.03 [facility] Comment on above: Performed By: #### E BS LIPID, EBS A1C, EBS CMP #### [address] Estimated GFR ( Liz > 60 [facility] Comment on above: Result Comment: GFR estimated reference range: According to KDOQI guidelines, <60 ml/min/1.73m2 is sufficient to diagnose a patient with chronic kidney disease. Performed By: #### E BS LIPID, EBS A1C, EBS CMP #### [address] Estimated GFR (Non- Am > 60 [facility] Comment on above: Performed By: #### E BS LIPID, EBS A1C, EBS CMP #### [facility] [address] [place] [address] Globulin (S) [Mass/Vol] 3.1 g/dL Normal [facility] Comment on above: Performed By: #### E BS LIPID, EBS A1C, EBS CMP #### [facility] [address] [place] [address] [place] Glucose [Mass/Vol] 106 mg/dL High 70-100 [facility] Comment on above: Result Comment: ADA recommended reference range Performed By: #### E BS LIPID, EBS A1C, EBS CMP #### [place] [id number] [place] Potassium [Moles/Vol] 4.0 mmol/L Normal 3.5-5.1 [facility] Comment on above: Performed By: #### E BS LIPID, EBS A1C, EBS CMP #### [facility] [address] Protein [Mass/Vol] 7.2 g/dL Normal 6.1-7.9 [facility] Comment on above: Performed By: #### E BS LIPID, EBS A1C, EBS CMP #### [facility] [address] Sodium [Moles/Vol] 137 mmol/L Normal 136-146 [facility] Comment on above: Performed By: #### E BS LIPID, EBS A1C, EBS CMP #### [address] Urea nitrogen [Mass/Vol] 10 mg/dL Normal 9-23 [facility] Comment on above: Performed By: #### E BS LIPID, EBS A1C, EBS CMP #### [address] EBS A1C with Estimated Ave Primo saezkleber 05-10-2021 Glucose [Mass/Vol] 111 mg/dL Normal [facility] Comment on above: Result Comment: PERF ORMED BY: [place] [address] PATHOLOGIST [employer] IN[employer] JERRY RAMSEY M.D. Performed By: #### E BS LIPID, EBS A1C, EBS CMP #### [facility] [address] [place] [address] HbA1c (Bld) [Mass fraction] 5.5 % Normal 4.3-5.6 [facility] Comment on above: Result Comment: Incr eased risk for diabetes: 5.7 - 6.4 diabetes: >6.4 glycemic control for adults with diabetes: <7.0 Performed By: #### E BS LIPID, EBS A1C, EBS CMP #### [facility] [address] [place] [address] Lipid Profileon 01-25-2022 Cholesterol [Mass/Vol] 202 mg/dL High 140-200 [facility] Comment on above: Result Comment: Chol less than 200 mg/dl low risk Chol 201-239 mg/dl borderline risk Chol 240 mg/dl and greater high risk Performed By: #### E BS LIPID, EBS A1C, EBS CMP #### [facility] [address] [place] [address] [place] Cholesterol in HDL [Mass/Vol] 37 mg/dL Normal 35-85 [facility] Comment on above: Result Comment: HDL CHOL ATP-III CLASSIFICATION Cardiovascular Risk HDL > or equal to 60 mg/dL LOW HDL < 40 mg/dL HIGH Performed By: #### E BS LIPID, EBS A1C, EBS CMP #### [facility] [address] Cholesterol.total/Cho lesterol in HDL [Mass ratio] 5.5 {ratio} Normal <5.0 [facility] Comment on above: Result Comment: PERF ORMED BY: [place] [address] PATHOLOGIST [employer] INSTRUCTOR JERRY RAMSEY M.D. Performed By: #### E BS LIPID, EBS A1C, EBS CMP #### [facility] [address] LDL Cholesterol,Calculate d 125 mg/dL High 0-100 [facility] Comment on above: Result Comment: LDL ATP III CLASSIFICATION LDL less than 100 mg/dL Optimal LDL 100-129 mg/dL Near or above optimal LDL 130-159 mg/dL Borderline high LDL 160-189 mg/dL High LDL greater than 189 mg/dL Very high Performed By: #### E BS LIPID, EBS A1C, EBS CMP #### [facility] [address] [place] [address] [place] Triglyceride w/Reflex 199 mg/dL High 35-149 [facility] Comment on above: Result Comment: TRIG ATP III CLASSIFICATION TRIG less than 150 mg/dL Normal TRIG 150-199 mg/dL Borderline high TRIG 200-500 mg/dL High TRIG greater than 500 mg/dL Very high Standard traceable to the Center for Disease Conrtrol and Prevention (CDC) test method. Performed By: #### E BS LIPID, EBS A1C, EBS CMP #### [facility] [address] [place] [id number] [place] VLDL CHOLESTEROL 39 mg/dL Normal [facility] Comment on above: Performed By: #### E NISA LIPID, CELESTE A1C, EBS CMP #### [facility] [address] [place] [id number] [facility] Vital Signs Date Time Vital Sign Value Performing Clinician Ronaldo coello 12-30-2024 09:40-0400 Body mass index (BMI) [Ratio] 40.39 kg/m2 Maureen SINGLETON Work Phone: [facility] 12-30-2024 09:40-0400 Body weight 135.08 kg Maureen Feliz PA Work Phone: [facility] 12-30-2024 09:40-0400 Diastolic blood pressure 86 mm[Hg] Maureen Feliz PA Work Phone: [facility] 12-30-2024 09:40-0400 Systolic blood pressure 118 mm[Hg] Maureen Feliz PA Work Phone: [facility] 12-23-2024 11:38-0400 Body mass index (BMI) [Ratio] 40.01 kg/m2 Miguel Riddhi DO Work Phone: [facility] 12-23-2024 11:38-0400 Body weight 133.81 kg Miguel Riddhi DO Work Phone: [facility] 12-23-2024 11:38-0400 Diastolic blood pressure 70 mm[Hg] Miguel Riddhi DO Work Phone: [facility] 12-23-2024 11:38-0400 Systolic blood pressure 120 mm[Hg] Miguel Riddhi DO Work Phone: [facility] 12-16-2024 13:08-0400 Body mass index (BMI) [Ratio] 39.98 kg/m2 Maureen Feliz PA Work Phone: [facility] 12-16-2024 13:08-0400 Body weight 133.72 kg Maureen Feliz PA Work Phone: [facility] 12-16-2024 13:08-0400 Diastolic blood pressure 70 mm[Hg] Maureen SINGLETON Work Phone: [facility] 12-16-2024 13:08-0400 Systolic blood pressure 120 mm[Hg] Maureen SINGLETON Work Phone: [facility] 12-02-2024 08:57-0400 Body mass index (BMI) [Ratio] 39.3 kg/m2 Miguel Riddhi DO Work Phone: [facility] 12-02-2024 08:57-0400 Body weight 131.45 kg Miguel Riddhi DO Work Phone: [facility] 12-02-2024 08:57-0400 Diastolic blood pressure 76 mm[Hg] Miguel Riddhi DO Work Phone: [facility] 12-02-2024 08:57-0400 Systolic blood pressure 114 mm[Hg] Miguel Riddhi DO Work Phone: [facility] 11-28-2024 11:44-0400 Body height 182.9 cm Saul Granados MD Work Phone: [facility] 11-28-2024 11:44-0400 Body mass index (BMI) [Ratio] 38.9 kg/m2 Saul Granados MD Work Phone: [facility] 11-28-2024 11:44-0400 Body weight 130.09 kg Saul Granados MD Work Phone: [facility] 11-28-2024 11:44-0400 Diastolic blood pressure 60 mm[Hg] Saul Granados MD Work Phone: [facility] 11-28-2024 11:44-0400 Heart rate 96 /min Saul Granados MD Work Phone: [facility] 11-28-2024 11:44-0400 Systolic blood pressure 114 mm[Hg] Saul Granados MD Work Phone: [facility] 11-18-2024 09:04-0400 Body mass index (BMI) [Ratio] 38.52 kg/m2 Miguel Riddhi DO Work Phone: [facility] 11-18-2024 09:04-0400 Body weight 128.82 kg Miguel Riddhi DO Work Phone: [facility] 11-18-2024 09:04-0400 Diastolic blood pressure 70 mm[Hg] Miguel Riddhi DO Work Phone: [facility] 11-18-2024 09:04-0400 Systolic blood pressure 112 mm[Hg] Miguel Riddhi DO Work Phone: [facility] 11-03-2024 15:07-0400 Body mass index (BMI) [Ratio] 38.63 kg/m2 Miguel Riddhi DO Work Phone: [facility] 11-03-2024 15:07-0400 Body weight 129.18 kg Miguel Riddhi DO Work Phone: [facility] 11-03-2024 15:07-0400 Diastolic blood pressure 74 mm[Hg] Miguel Riddhi DO Work Phone: [facility] 11-03-2024 15:07-0400 Systolic blood pressure 110 mm[Hg] Miguel Riddhi DO Work Phone: [facility] 10-21-2024 08:41-0400 Body mass index (BMI) [Ratio] 38.44 kg/m2 Maureen SINGLETON Work Phone: [facility] 10-21-2024 08:41-0400 Body weight 128.55 kg Maureen SINGLETON Work Phone: [facility] 10-21-2024 08:41-0400 Diastolic blood pressure 78 mm[Hg] Maureen SINGLETON Work Phone: [facility] 10-21-2024 08:41-0400 Systolic blood pressure 124 mm[Hg] Maureen SINGLETON Work Phone: [facility] 09-16-2024 09:49-0400 Body mass index (BMI) [Ratio] 37.57 kg/m2 Miguel Riddhi DO Work Phone: [facility] 09-16-2024 09:49-0400 Body weight 125.65 kg Miguel Riddhi DO Work Phone: [facility] 09-16-2024 09:49-0400 Diastolic blood pressure 76 mm[Hg] Miguel Riddhi DO Work Phone: [facility] 09-16-2024 09:49-0400 Systolic blood pressure 126 mm[Hg] Miguel Riddhi DO Work Phone: [facility] 08-19-2024 14:52-0400 Body mass index (BMI) [Ratio] 37.57 kg/m2 Maureen Feliz PA Work Phone: [facility] 08-19-2024 14:52-0400 Body weight 125.65 kg Maureen Paula PA Work Phone: [facility] 08-19-2024 14:52-0400 Diastolic blood pressure 78 mm[Hg] Maureen Feliz PA Work Phone: [facility] 08-19-2024 14:52-0400 Systolic blood pressure 128 mm[Hg] Maureen Paula PA Work Phone: [facility] 07-22-2024 09:47-0400 Body mass index (BMI) [Ratio] 37.3 kg/m2 Miguel Riddhi DO Work Phone: [facility] 07-22-2024 09:47-0400 Body weight 124.74 kg Miguel Riddhi DO Work Phone: [facility] 07-22-2024 09:47-0400 Diastolic blood pressure 86 mm[Hg] Miguel Riddhi DO Work Phone: [facility] 07-22-2024 09:47-0400 Systolic blood pressure 130 mm[Hg] Miguel Riddhi DO Work Phone: [facility] 02-19-2024 14:07-0500 Body mass index (BMI) [Ratio] 37.95 kg/m2 Maureen Paula PA Work Phone: [facility] 02-19-2024 14:07-0500 Body weight 126.92 kg Maureen SINGLETON Work Phone: [facility] 02-19-2024 14:07-0500 Diastolic blood pressure 74 mm[Hg] Maureen SINGLETON Work Phone: [facility] 02-19-2024 14:07-0500 Systolic blood pressure 114 mm[Hg] Maureen SINGLETON Work Phone: [facility] 01-16-2024 16:38-0400 Body height 182.9 cm Miguel Riddhi DO Work Phone: [facility] 01-16-2024 16:38-0400 Body mass index (BMI) [Ratio] 37.57 kg/m2 Miguel Riddhi DO Work Phone: [facility] 01-16-2024 16:38-0400 Body weight 125.65 kg Miguel Riddhi DO Work Phone: [facility] 01-16-2024 16:38-0400 Diastolic blood pressure 80 mm[Hg] Miguel Riddhi DO Work Phone: [facility] 01-16-2024 16:38-0400 Systolic blood pressure 124 mm[Hg] Miguel Riddhi DO Work Phone: [facility] 12-25-2023 10:12-0400 Body height 182.9 cm Miguel Riddhi DO Work Phone: [facility] 12-25-2023 10:12-0400 Body mass index (BMI) [Ratio] 37.57 kg/m2 Miguel Riddhi DO Work Phone: [facility] 12-25-2023 10:12-0400 Body weight 125.65 kg Miguel Riddhi DO Work Phone: [facility] 12-25-2023 10:12-0400 Diastolic blood pressure 84 mm[Hg] Miguel Riddhi DO Work Phone: [facility] 12-25-2023 10:12-0400 Systolic blood pressure 122 mm[Hg] Miguel Riddhi DO Work Phone: [facility] Encounters Encounter Date Encounter Type Care Provider Facility Start: 12-30-2024 End: 12-30-2024 Bamboo flowsheet Maureen SINGLETON Work Phone: [facility] Start: 12-30-2024 End: 12-30-2024 Bamboo flowsheet Maureen SINGLETON Work Phone: [facility] Start: 12-30-2024 End: 12-30-2024 flow sheet Maureen SINGLETON Work Phone: [facility] Comment on above: Third trimester preg shayla ([facility]); 37 weeks gestation of ([facility]) Start: 12-26-2024 End: 12-26-2024 Clinisync Result Encounter Miguel Riddhi DO Work Phone: [facility] Unsolicited Start: 12-26-2024 End: 12-26-2024 Clinisync Result Encounter Miguel Riddhi DO Work Phone: [facility] Unsolicited Start: 12-25-2024 End: 12-25-2024 Office outpatient visit 25 minutes Magnus DIAZ Work Phone: [facility] at [facility] Comment on above: Insulin controlled g estational diabetes mellitus (GDM) in third trimester (Primary Dx) Start: 12-25-2024 End: 12-25-2024 ambulatory MAGNUS THOMASON [facility] Start: 2024 ambulatory VIRAL ALLRED [facility] Start: 12-23-2024 End: 12-23-2024 Bamboo flowsheet Miguel Riddhi DO Work Phone: [facility] Start: 12-23-2024 End: 12-23-2024 Bamboo flowsheet Miguel Riddhi DO Work Phone: [facility] Start: 12-23-2024 End: 12-23-2024 flow sheet Miguel Riddhi DO Work Phone: [facility] Comment on above: 36 weeks gestation o f ([facility]); Third trimester ([facility]); Gestational diabetes mellitus (GDM), antepartum, gestational diabetes method of control unspecified ([facility]) Start: 12-23-2024 End: 12-23-2024 ambulatory MIGUEL RIDDHI Not Available Start: 12-19-2024 End: 12-19-2024 Clinisync Result Encounter Miguel Riddhi DO Work Phone: [facility] Unsolicited Start: 12-19-2024 End: 12-19-2024 Clinisync Result Encounter Miguel Riddhi DO Work Phone: [facility] Unsolicited Start: 12-18-2024 End: 12-18-2024 Telephone encounter Tessie Carranza RN [facility] Start: 12-18-2024 End: 12-18-2024 ambulatory [facility] Start: 12-16-2024 End: 12-16-2024 Bamboo flowsheet Maureen SINGLETON Work Phone: [facility] Start: 12-16-2024 End: 12-16-2024 Bamboo flowsheet Maureen SINGLETON Work Phone: [facility] Start: 12-16-2024 End: 12-16-2024 flow sheet Maureen SINGLETON Work Phone: [facility] Comment on above: 35 weeks gestation o f ([facility]); Third trimester ([facility]); Gestational diabetes mellitus (GDM), antepartum, gestational diabetes method of control unspecified ([facility]) Start: 12-16-2024 End: 12-16-2024 ambulatory MAUREEN FELIZ Not Available Start: 12-12-2024 End: 12-12-2024 Clinisync Result Encounter Miguel Riddhi DO Work Phone: [facility] Unsolicited Start: 12-12-2024 End: 12-12-2024 Clinisync Result Encounter Miguel Riddhi DO Work Phone: [facility] Unsolicited Start: 12-11-2024 End: 12-11-2024 [facility] Start: 12-09-2024 End: 12-09-2024 Orders Only Mary Scanlon PA-Jed Work Phone: [facility] - Labor Start: 12-06-2024 End: 12-06-2024 Clinisync Result Encounter Miguel Riddhi DO Work Phone: [facility] Unsolicited Start: 12-06-2024 End: 12-06-2024 Clinisync Result Encounter Miguel Riddhi DO Work Phone: [facility] Unsolicited Start: 12-03-2024 End: 12-03-2024 Orders Only Magnus DIAZ Work Phone: [facility] Start: 12-02-2024 End: 12-02-2024 Bamboo flowsheet Miguel Riddhi DO Work Phone: [facility] Start: 12-02-2024 End: 12-02-2024 Bamboo flowsheet Miguel Riddhi DO Work Phone: [facility] Start: 12-02-2024 End: 12-02-2024 flow sheet Miguel Riddhi DO Work Phone: [facility] Comment on above: Third trimester preg shayla ([facility]); 33 weeks gestation of ([facility]); Gestational diabetes mellitus (GDM), antepartum, gestational diabetes method of control unspecified ([facility]) Start: 12-02-2024 End: 12-02-2024 ambulatory MIGUEL RIDDHI Not Available Start: 11-28-2024 End: 11-28-2024 Office outpatient new 45 minutes Saul Granados MD Work Phone: [facility] Comment on above: Insulin controlled g estational diabetes mellitus (GDM) in third trimester (Primary Dx); Prediabetes in mother during ; Family history of type 2 diabetes mellitus; Obesity affecting , antepartum, unspecified obesity type; 32 weeks gestation of Start: 11-28-2024 End: 11-28-2024 ambulatory SAUL TYLER [facility] Start: 11-27-2024 End: 11-27-2024 Clinisync Result Encounter Miguel Riddhi DO Work Phone: [facility] Unsolicited Start: 11-27-2024 End: 11-27-2024 Clinisync Result Encounter Miguel Riddhi DO Work Phone: [facility] Unsolicited Start: 11-26-2024 End: 11-26-2024 Documentation procedure Yjoana Diehl RN [facility] Start: 11-26-2024 End: 11-26-2024 Telephone encounter Yojana Diehl RN [facility] Start: 11-25-2024 End: 11-25-2024 Telephone encounter Naomie Huber LD Work Phone: [facility] Start: 11-24-2024 End: 11-24-2024 Chart abstracting Scanning Provider External [facility] Start: 11-20-2024 End: 11-20-2024 ambulatory MIGUEL R RIDDHI [facility] Start: 11-18-2024 End: 11-18-2024 Bamboo flowsheet Miguel Riddhi DO Work Phone: [facility] Start: 11-18-2024 End: 11-18-2024 Bamboo flowsheet Miguel Riddhi DO Work Phone: [facility] Start: 11-18-2024 End: 11-18-2024 ambulatory MIGUEL RIDDHI Not Available Start: 11-18-2024 End: 11-18-2024 flow sheet Miguel Riddhi DO Work Phone: [facility] Comment on above: Third trimester preg shayla ([facility]); 31 weeks gestation of ([facility]); Gestational diabetes mellitus (GDM), antepartum, gestational diabetes method of control unspecified ([facility]) Start: 11-14-2024 End: 11-14-2024 Clinisync Result Encounter Miguel Riddhi DO Work Phone: [facility] Unsolicited Start: 11-14-2024 End: 11-14-2024 Clinisync Result Encounter Miguel Riddhi DO Work Phone: [facility] Unsolicited Start: 11-13-2024 End: 11-13-2024 Chart abstracting Generic External Data Provider [facility] Start: 11-12-2024 ambulatory [facility] Start: 11-10-2024 End: 11-10-2024 Clinisync Result Encounter Miguel Riddhi DO Work Phone: [facility] Unsolicited Start: 11-10-2024 End: 11-10-2024 Clinisync Result Encounter Miguel Riddhi DO Work Phone: [facility] Unsolicited Start: 11-03-2024 End: 11-03-2024 flow sheet Miguel Riddhi DO Work Phone: [facility] Comment on above: 29 weeks gestation o f ([facility]); Third trimester ([facility]) Start: 11-03-2024 End: 11-03-2024 ambulatory MIGUEL RIDDHI [...] [facility] Start: 10-21-2024 End: 10-21-[address] [facility] Start: 10-21-2024 End: 10-21-2024 flow sheet Maureen SINGLETON Work Phone: [facility] Comment on above: Size of fetus incons istent with dates in second trimester ([facility]) (Primary Dx); Second trimester ([facility]); 27 weeks gestation of ([facility]) Start: 10-21-2024 End: 10-21-2024 ambulatory MAUREEN FELIZ Not Available Start: 09-16-2024 End: 09-16-2024 ambulatory MIGUEL RIDDHI Not Available Start: 09-16-2024 End: 09-16-2024 flow sheet Miguel Riddhi DO Work Phone: [facility] Comment on above: Second trimester pre gnancy; 22 weeks gestation of ; Elevated glucose tolerance test Start: 09-16-2024 End: 09-16-2024 ambulatory MIGUEL RIDDHI Not Available Start: 09-02-[address] [facility] Start: 08-23-2024 End: 08-23-2024 Clinisync Result [...] [facility] Department Unsolicited Start: 06-26-[address] [facility] Start: 06-19-2024 End: 06-19-2024 ambulatory MIGUEL RIDDHI Not Available Start: 05-21-[address] [facility] Start: 05-20-2024 End: 05-20-2024 Clinisync Result [...] [facility] Unsolicited Start: 04-21-[address] [facility] Start: 04-14-[address] [facility] Start: 03-07-2024 ambulatory [facility] Start: 02-25-[address] [facility] Start: 02-19-2024 End: 02-19-2024 Bamboo flowsheet Maureen SINGLETON Work Phone: [facility] Start: 02-19-2024 End: 02-19-2024 Bamboo flowsheet Maureen Feliz PA Work Phone: [facility] Start: 02-19-2024 End: 02-19-2024 Postop follow up visit related to original px Maureen SINGLETNO Work Phone: [facility] Comment on above: Postop check Start: 02-19-2024 End: 02-19-2024 ambulatory MAUREEN FELIZ Not Available Start: 02-14-[address] [facility] Start: 02-08-2024 End: 02-08-2024 Clinisync Result Encounter Miguel Riddhi DO Work Phone: [facility] Unsolicited Start: 02-08-2024 End: 02-08-2024 Clinisync Result Encounter Miguel Riddhi DO Work Phone: [facility] Unsolicited Start: 01-30-2024 End: 01-30-2024 Clinisync Result Encounter Miguel Riddih DO Work Phone: [facility] Unsolicited Start: 01-30-2024 End: 01-30-2024 Clinisync Result Encounter Miguel Riddhi DO Work Phone: [facility] Unsolicited Start: 01-16-2024 ambulatory [facility] Start: 01-16-2024 End: 01-16-2024 Office outpatient visit [...] 12-12-2022 End: 12-15-2022 ambulatory [facility] Start: 06-19-2022 End: 06-20-2022 ambulatory Isabella Raygoza APRN-SALES OUTFITTER Facility:[facility] Start: 05-30-2022 End: 05-31-2022 ambulatory Adebayo Latham DO Facility:[facility] Start: 05-16-2022 End: 05-17-2022 ambulatory Isabella Raygoza APRN-SALES OUTFITTER Facility:[facility] Start: 12-20-2021 End: 12-21-[address] ADEBAYO SOLARES Facility:[facility] Start: 11-15-2021 End: 11-16-[address] ADEBAYO SOLARES Facility:[facility] Procedures Date Procedure Procedure Detail Performing Clinician Start: 12-30-2024 Urnls dip stick/tabl et rgnt non-auto w/o micrscp Maureen SINGLETON Work Phone: Start: 12-26-2024 OB BPP W NON-STRESS Miguel Riddhi DO Work Phone: Start: 12-23-2024 Urnls dip stick/tabl et rgnt [...] [Identifier] in Cervix by Cyto stain Aristides Jose G DO Work Phone: Plan of Treatment Date Care Activity Detail Author Start: 01-25-2030 DTaP,Tdap and Td Vaccines (7 - Td or Tdap) DTaP,Tdap and Td Vaccines (7 - Td or Tdap) [facility] Start: 12-12-2028 Screening for malign ant neoplasm of cervix [facility] Start: 12-12-2026 Screening for malign ant neoplasm of cervix Pap Smear [facility] Start: 11-28-2025 Adult BMI Screening Adult BMI Screen ing [facility] Start: 11-28-2025 Tobacco Screening Tobacco Screening [facility] Start: 01-06-2025 End: 01-06-2025 Patient encounter procedure 01/06/2025 9:10 AM EDT Routine JOSY HERNANDEZ [address] [place] [phone] Miguel Hannon DO [address] [place] [address] [facility] Start: 12-30-2024 End: 12-30-2024 Patient encounter procedure JOSY HERNANDEZ Comment on above: Arrived Start: 12-25-2024 End: 12-25-2024 Telemedicine consultation with patient 12/25/2024 3:00 PM EDT Telemedicine [facility] [address] [place] [phone] Magnsu Thomason, GEODETIC ENGINEER-SALES OUTFITTER [address] [place] [address] [facility] Start: 12-23-2024 End: 12-23-2025 CULTURE, GROUP B STREP WITH SUSCEPTIBLITY CULTURE, GROUP B STREP WITH SUSCEPTIBLITY Lab Routine Third trimester ([facility]) Expected: 12/23/2024, Expires: 12/23/2025 [facility] Work Phone: Comment on above: Expected: 12/23/2024 , Expires: 12/23/2025 Start: 12-23-2024 End: 12-23-2024 Patient encounter procedure JOSY HERNANDEZ Comment on above: Arrived Start: 12-18-2024 End: 12-18-2024 Telemedicine consultation with patient 12/18/2024 8:00 AM EDT Telemedicine [facility] [address] [place] [phone] Magnus Thomason, GEODETIC ENGINEER-SALES OUTFITTER [address] [place] [address] [facility] Start: 12-16-2024 End: 12-16-2024 Patient encounter procedure JOSY HERNANDEZ Comment on above: Arrived Start: 12-15-2024 Influenza vaccination N [facility] Start: 12-11-2024 End: 12-11-2024 Patient encounter procedure 12/11/2024 1:00 PM EDT Appointment [facility] [address] [place] [phone] [facility] Start: 12-02-2024 End: 12-02-2024 Patient encounter procedure [facility] Comment on above: Arrived Start: 11-20-2024 End: 11-20-2024 Telemedicine consultation with patient 11/20/2024 10:30 AM EDT Telemedicine [facility] at [facility] [address] [facility] [place] [address] Miroslava Trinidad RN [address] [facility] [place] [address] Juli Quezada, ENE Mayo, Naomie, LD [address] [place] [address] [facility] Start: 11-18-2024 End: 05-21-2025 US biophysical profile w non stress test US biophysical profile w non stress test Imaging Routine Gestational diabetes mellitus (GDM), antepartum, gestational diabetes method of control unspecified ([facility]) Expected: 11/18/2024 (Approximate), Expires: 05/21/2025 [facility] Work Phone: Comment on above: Expected: 11/18/2024 (Approximate), Expires: 05/21/2025 Start: 11-18-2024 End: 11-18-2024 Patient encounter procedure 11/18/2024 8:50 AM EDT Routine [facility] [address] [place] [phone] Miguel Hannon DO [address] [place] [address] [facility] Start: 11-03-2024 End: 11-03-2024 Patient encounter procedure [facility] Comment on above: Arrived Start: 11-03-2024 End: 11-03-2024 Professional / ancillary services management 11/03/2024 2:00 PM EDT Ancillary Procedure [facility] [address] [place] [phone] [facility] Start: 10-21-2024 End: 02-21-2025 US for US OB follow up transabdominal approach Imaging Routine Size of fetus inconsistent with dates in second trimester ([facility]) Expected: 10/21/2024, Expires: 02/21/2025 [facility] Work [...] AM EDT Routine [facility] [address] [place] [phone] Miguel Hannon DO [address] [place] [address] [facility] Start: 09-16-2024 End: 09-16-2024 Professional / ancillary services management 09/16/2024 8:30 AM EDT Ancillary Procedure [facility] [address] [facility] [place] [phone] [facility] Start: 08-19-2024 End: 08-19-2024 Patient encounter procedure 08/19/2024 2:20 PM EDT Routine [facility] [address] [place] [phone] Maureen Feliz PA [address] [place] [address] [facility] Start: 08-19-2024 End: 09-19-2024 Alpha fetoprotein, maternal Alpha fetoprotein, maternal Lab Routine Need for maternal serum alpha-protein (MSAFP) screening Expected: 08/19/2024 (Approximate), Expires: 09/19/2024 [facility] Comment on above: Expected: 08/19/2024 (Approximate), Expires: 09/19/2024 Start: 08-19-2024 End: 08-19-2025 Measurement of glucose 3 hours after glucose challenge for glucose tolerance test Glucose tolerance, 3 hours Lab Routine Elevated glucose tolerance test Expected: 08/19/2024 (Approximate), Expires: 08/19/2025 [facility] Comment on above: Expected: 08/19/2024 (Approximate), Expires: 08/19/2025 Start: 08-19-2024 End: 11-19-2024 US for US OB 14+ weeks anatomy scan Imaging Routine Screening, , for anatomic survey Expected: 08/19/2024, Expires: 11/19/2024 [facility] Comment on above: Expected: 08/19/2024 , Expires: 11/19/2024 Start: 07-22-2024 End: 07-22-2025 Measurement of glucose 1 hour after glucose challenge for glucose tolerance test Glucose tolerance, 1 hour Lab Routine Diabetes mellitus screening Expected: 07/22/2024 (Approximate), Expires: 07/22/2025 [facility] Work Phone: Comment on above: Expected: 07/22/2024 (Approximate), Expires: 07/22/2025 Start: 07-22-2024 End: 07-22-2024 Patient encounter procedure [facility] Comment on above: Arrived Start: 06-19-2024 End: 06-19-2024 ambulatory 06/19/2024 2:30 PM EST Initial [facility] [address] [place] [phone] [facility] Start: 06-19-2024 End: 06-19-2024 Professional / ancillary services management 06/19/2024 2:00 PM EST Ancillary Procedure [facility] [address] [place] [address] [facility] Start: 02-19-2024 End: 02-19-2024 Patient encounter procedure 02/19/2024 1:40 PM EST Office Visit [facility] [address] [place] [phone] Maureen Feliz PA [address] [place], [place] [phone] Arrived [facility] Comment on above: Arrived Start: 01-16-2024 End: 01-16-2024 Patient encounter procedure 01/16/2024 4:00 PM EDT Consult [facility] [address] [place] [address] Miguel Hannon DO [address] [place], [place] [phone] Arrived [facility] Comment on above: Arrived Start: 12-25-2023 End: 2024 Antimullerian hormone (AMH) Antimullerian hormone (AMH) Lab Routine Female infertility PCOS (polycystic ovarian syndrome) Dysfunctional uterine bleeding Expected: 12/25/2023 (Approximate), Expires: 2024 [facility] Comment on above: Expected: 12/25/2023 (Approximate), Expires: 2024 Start: 12-25-2023 End: 2024 DHEA DHEA Lab Routine PCOS (polycystic ovarian syndrome) Expected: 12/25/2023 (Approximate), Expires: 2024 [facility] Comment on above: Expected: 12/25/2023 (Approximate), Expires: 2024 Start: 12-25-2023 End: 12-25-2023 Patient encounter procedure [facility] Comment on above: Arrived Start: 12-16-2023 Influenza vaccination Influenza Vacc ine (#1) [facility] Start: 12-11-2023 End: 12-11-2023 Patient encounter procedure 12/11/2023 8:00 AM EDT Procedure Visit [facility] Aristides Araiza DO [address] [facility] [address] [place] [address] [facility] EXT DEP Start: 05-17-2017 Screening for malign ant neoplasm of cervix [facility] Start: 12-23-2012 Screening for malign ant neoplasm of cervix Pap Smear [facility] Start: 12-23-2010 DTaP,Tdap and Td Vaccines (1 - Tdap) DTaP,Tdap and Td Vaccines (1 - Tdap) [facility] Start: 12-23-2009 Adult BMI Follow Up Plan Adult BMI Follow Up Plan [facility] Start: 12-23-2009 Adult BMI Screening Adult BMI Screen ing [facility] Start: 2003 Depression Screening Depression Scre ening [facility] Start: 2003 Tobacco Screening Tobacco Screening [facility] CBC W Auto Different ial panel - Blood CBC and differential Lab Routine PCOS (polycystic ovarian syndrome) Ordered: 12/25/2023 [facility] Comment on above: Ordered: 12/25/2023 CBC W Auto Different ial panel - Blood CBC and differential Lab Routine 22 weeks gestation of Elevated glucose tolerance test Ordered: 09/16/2024 [facility] Comment on above: Ordered: 09/16/2024 CHLAMYDIA TRACHOMATI S (GENITO/STI) CHLAMYDIA TRACHOMATIS (GENITO/STI) Lab Routine Exposure to STD Ordered: 08/19/2024 [facility] Comment on above: Ordered: 08/19/2024 DHEA-sulfate DHEA-sulfate Lab Routine PCOS (polycystic ovarian syndrome) Ordered: 12/25/2023 [facility] Comment on above: Ordered: 12/25/2023 Follicle stimulating hormone Follicle stimulating hormone Lab Routine PCOS (polycystic ovarian syndrome) Ordered: 12/25/2023 [facility] Comment on above: Ordered: 12/25/2023 hCG, quantitative, hCG, quantitative, Lab Routine PCOS (polycystic ovarian syndrome) Ordered: 12/25/2023 [facility] Work Phone: Comment on above: Ordered: 12/25/2023 Hemoglobin A1c/Hemoglobin.total in Blood Hemoglobin A1c Lab Routine Female infertility PCOS (polycystic ovarian syndrome) Dysfunctional uterine bleeding Ordered: 12/25/2023 [facility] Comment on above: Ordered: 12/25/2023 Human papilloma viru s DNA [Presence] in Unspecified specimen by Probe with amplification HPV DNA probe, amplified Microbiology Routine Ordered: 08/19/2024 [facility] Comment on above: Ordered: 08/19/2024 Luteinizing hormone Luteinizing hormone Lab Routine PCOS (polycystic ovarian syndrome) Ordered: 12/25/2023 [facility] Comment on above: Ordered: 12/25/2023 Neisseria gonorrhoea e DNA [Presence] in Unspecified specimen by [place] with probe detection Neisseria gonorrhea DNA probe, direct Lab Routine Exposure to STD Ordered: 08/19/2024 [facility] Comment on above: Ordered: 08/19/2024 SURESWAB(R) ADVANCED VAGINITIS PLUS, TMA SURESWAB(R) ADVANCED VAGINITIS PLUS, TMA Pathology and Cytology Routine Exposure to STD Ordered: 08/19/2024 [facility] Work Phone: Comment on above: Ordered: 08/19/2024 Thyrotropin [Units/volume] in Serum or Plasma TSH Lab Routine PCOS (polycystic ovarian syndrome) Ordered: 12/25/2023 [facility] Comment on above: Ordered: 12/25/2023 Thyroxine (T4) free [Mass/volume] in Serum or Plasma T4, free Lab Routine PCOS (polycystic ovarian syndrome) Ordered: 12/25/2023 [facility] Comment on above: Ordered: 12/25/2023 Immunizations Immunization Date Immunization Notes Care Provider Eunice martinez 01-20-2024 influenza virus vacc ine, unspecified formulation Maureen SINGLETON Work Phone: [facility] 02-12-2023 influenza virus vacc ine, unspecified formulation Aristides Araiza DO Work Phone: [facility] Payers Date Payer Category Payer Unknown [id number] 2024 Blue Cross Blue Shie ld Managed Care - Other [id number] 2024 Unknown [id number] 2023 Blue Cross Blue Shield [id number] 2023 Unknown [id number] 2022 Unknown 2021 Self-pay 2019 Unknown [id number] 1991 Unknown [id number] 2.16.840.1.208101.3.579.2.593 1991 Unknown [id number] 2.16.840.1.249021.3.579.2.593 1991 Unknown [id number] 2.16.840.1.561086.3.579.2.196 1991 Unknown [id number] 2.16.840.1.441493.3.579.2.196 1991 Unknown [id number] 2.16.840.1.108840.3.579.2.196 1991 Unknown [id number] 2.16.840.1.984169.3.579.2.173 1991 Unknown [id number] 2.16.840.1.319772.3.579.2.1286 1991 Unknown [id number] 2.16.840.1.155031.3.579.2.1258 1991 Unknown [id number] 2.16.840.1.367254.3.579.2.1258 1991 Unknown [id number] 2.16.840.1.394606.3.579.2.1258 1991 Unknown [id number] 2.16.840.1.232063.3.579.2.1258 1991 Unknown [id number] 2.16.840.1.044145.3.579.2.125 1991 Unknown [id number] 2.16.840.1.043278.3.579.2.1258 1991 Unknown [id number] 2.16.840.1.137296.3.579.2.1258 1991 Unknown [id number] 2.16.840.1.800231.3.579.2.1259 1991 Unknown [id number] 2.16.840.1.390303.3.579.2.9 1991 Unknown [id number] 2.16.840.1.323610.3.579.2.9 1991 Unknown [id number] 2.16.840.1.881312.3.579.2.9 1991 Unknown [id number] 2.16.840.1.522345.3.579.2.9 1991 Unknown [id number] 2.16.840.1.377103.3.579.2.9 1991 Unknown [id number] 2.16.840.1.008879.3.579.2.9 1991 Unknown [id number] 2.16.840.1.260756.3.579.2.6 1991 Unknown [id number] 2.16.840.1.212498.3.579.2.1286 1991 Unknown [id number] 2.16.840.1.096872.3.579.2.1285 1991 Unknown [id number] 2.16.840.1.122007.3.579.2.1286 1959 Unknown [id number] Social History Date Type Detail Facility Start: 11-19-2023 End: 11-28-2024 Tobacco smoking status FLIS Never smoked tobacco [facility] Start: 11-19-2023 End: 11-28-2024 Tobacco use and exposure Smokeless tobacco non-user [facility] Start: 12-25-2023 End: 12-23-2024 Alcoholic beverage intake Lifetime non-drinker (finding) [facility] Start: 11-19-2023 End: 12-25-2023 History of Social function [facility] Start: 11-19-2023 End: 12-25-2023 Tobacco use panel [facility] Start: 1990 Sex assigned at Not on file [facility] Start: 04-26-2024 [facility] Tobacco smoking stat [facility] Tobacco smoking consumption unknown [facility] Start: 11-11-2024 Sex Female (finding) [facility] Within the past 12 months we worried whether our food would run out before we got money to buy more. Never True [facility] Start: 11-28-2024 Alcoholic beverage intake Ex-drinker (finding) [facility] Medical Equipment Procedure Code Equipment Code Equipment Origin al Text Equipment Identifier Dates 1 strip by In Vi tro route Daily Use in the morning prior to breakfast, 1 hour after each meal for a total of 4times daily. [id number] Start: 11-10-2024 End: 12-10-2024 1 each by In Vit ro route Daily Use to check FSBS four times daily [id number] Start: 11-10-2024 End: 12-10-2024 Use daily for insulin [id number] Start: 11-28-2024 Clinical Notes 06-19-2022 to 12-30-2024 Maureen Feliz, ARELI - 12/30/2024 8:30 AM EDLawanda Thomason APRN-SALES OUTFITTER - 12/25/2024 3:00 PM Mae Malagon LPN - 12/23/2024 11:30 AM EDTTelephone Encounter - Tessie Carranza RN - 12/18/2024 11:26 AM EDT Note Date & Type Note Facility 12-30-2024 History of Present illness Narrative Reason for [...] Arthritis Father Adebayo Lara Diabetes Father Adebayo aLra Hyperlipidemia Father Adebayo Marco Hypertension Father Adebayo [...] reviewed. Vitals: Estimated body mass index is 40.01 kg/m as calculated from the following: Height as of 01/16/24: 6'. Weight as of 12/23/24: 295 lb. BP: Patient's last menstrual period was 04/12/2024. ASSESSMENT & PLAN ICD-10-CM 1. Third trimester ([facility]) Z34.93 POCT urinalysis dipstick manually resulted 2. 37 weeks gestation of ([facility]) Z3A.37 Return OB: Patient presents today for a routine obstetrics appointment. Patient is currently 37w3d . Patient states she is doing well but has complaints of being tired due to current . Patient has verbalizes frequent movement. labor precautions was discussed/given and patient was instructed to perform kick counts three times a day. Patient continues to have uncontrolled gestational diabetes with sugars >130 in morning and > 180 post prandal Orders Placed This Encounter Procedures POCT urinalysis dipstick manually resulted Follow Up: Patient is to return to office in 1 week for routine OB appointment. Documented by ARELI Espinoza on behalf of: ARELI Espinoza documented in this encounter [facility] 12-25-2024 History of Present illness Narrative REASON FOR OFFICE VISIT: Video Visit via Real-time Synchronous Audiovisual Provider Location: [facility] MAT[facility]- MEDICINE AT [address] [address] Patient Location: Patient's home Video [...] that there are some limitations compared to [id number] evaluations. The patient consented to the presence of additional virtual and/or in-person participants. We elected to proceed. 1. GDMA2, A1c 5.7% 2. BMI 38.9 3. 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 at 36w5d due on Estimated Date of Delivery: 01/17/25. Currently the patient has no complaints. The patient denies JOE, nausea, vomiting, abdominal pain, vaginal bleeding, contractions, leaking fluid or chest pain. +FM. She is being followed at [facility] due to GDMA2. States she is [...] TOTALT4 , THYROIDAB No results found for: [id number] No results found for: CREATININE , BUN [...] of surplus red blood cells after the infant has been delivered. Achieving a euglycemic state [...] and counseling, coordination of care which was [id number], review of records and communication back to referring provider. JOE Mathur 12/25/24 [id number] documented in this encounter [facility] 12-23-2024 History of Present illness Narrative Reason [...] mg, Daily RT Blood Glucose Monitoring Suppl (Motostrano Glucometer) w/Device kit 1 kit, Does not [...] nursing note reviewed. Exam conducted with a locker room clerk present. Vitals: Estimated body mass index is 40.01 kg/m as calculated from the following: Height as of 01/16/24: 6'. Weight as of this encounter: 295 lb. BP: 120/70 Patient's last menstrual period was 04/12/2024. ASSESSMENT & PLAN ICD-10-CM 1. 36 weeks gestation of ([facility]) Z3A.36 POCT urinalysis dipstick manually resulted 2. Third trimester ([facility]) Z34.93 POCT urinalysis dipstick manually resulted CULTURE, GROUP B STREP WITH SUSCEPTIBLITY CULTURE, GROUP B STREP WITH SUSCEPTIBLITY 3. Gestational diabetes mellitus (GDM), antepartum, gestational diabetes method of control unspecified ([facility]) O24.419 Patient is doing well but has [...] Miguel Hannon DO documented in this encounter [facility] 12-18-2024 Miscellaneous Notes RN spoke to Javid via phone. Javid is unable to connect to [employer] Video call with Magnus Thomason NP. Patient [...] Magnus Thomason NP. documented in this encounter [facility] 12-18-2024 Telephone encounter Note RN spoke to Javid via phone. Javid is unable to connect to [employer] Video call with Magnus Thomason NP. Patient [...] rescheduled to 12/25/24 with Magnus Thomason NP. [facility] 12-16-2024 History of Present illness Narrative [...] PLAN ICD-10-CM 1. 35 weeks gestation of ([facility]) Z3A.35 POCT urinalysis dipstick manually resulted 2. Third trimester ([facility]) Z34.93 POCT urinalysis dipstick manually resulted 3. Gestational diabetes mellitus (GDM), antepartum, gestational diabetes method of control unspecified ([facility]) O24.419 Return OB: Patient presents today for [...] of: ARELI Espinoza documented in this encounter [facility] 12-09-2024 Miscellaneous Notes Called pt to discuss her insulin change for this week. Mary Ghislaine reviewed her blood sugars and would like her to increase her lantus in the evening to 16 units. Pt verbalized understanding, we will pull her report again next week. documented in this encounter [facility] 12-09-2024 Telephone encounter Note Called pt to discuss her insulin change for this week. Mary Scanlon reviewed her blood sugars and would like her to increase her lantus in the evening to 16 units. Pt verbalized understanding, we will pull her report again next week. [facility] 12-03-2024 Miscellaneous Notes Called patient regarding Dexcom CGM report from 11/29 to 12/01/24 and had to leave a message. RADHA Mathur, reviewed patient's report and increased her Lantus dose to 12 units each evening. Will send patient a [employer] message as well and asked patient to confirm with us via phone or MyChart that she received the dose change information. documented in this encounter [facility] 12-03-2024 Telephone encounter Note Called patient regarding Dexcom CGM report from 11/29 to 12/01/24 and had to leave a message. RADHA Mathur, reviewed patient's report and increased her Lantus dose to 12 units each evening. Will send patient a [employer] message as well and asked patient to confirm with us via phone or Cl[employer]sting[employer] that she received the dose change information. [facility] 12-02-2024 History of Present illness Narrative Reason [...] nursing note reviewed. Exam conducted with a locker room clerk present. Vitals: Estimated body mass index is 39.3 kg/m as calculated from the following: Height as of 01/16/24: 6'. Weight as of this encounter: 289 lb 12.8 oz. BP: 114/76 Patient's last menstrual period was 04/12/2024. ASSESSMENT & PLAN ICD-10-CM 1. Third trimester ([facility]) Z34.93 POCT urinalysis dipstick manually resulted 2. 33 weeks gestation of ([facility]) Z3A.33 POCT urinalysis dipstick manually resulted 3. Gestational diabetes mellitus (GDM), antepartum, gestational diabetes method of control unspecified ([facility]) O24.419 Continuous Glucose Sensor (Dexcom G7 Sensor) [...] Pt to have repeat anatomy scan at [facility] on 12/11. Discussed delivery between 37-39 weeks d/t being on Lantus. Orders Placed This Encounter Procedures POCT urinalysis dipstick manually resulted Follow Up: Patient is to return to office in 2 week for routine OB appointment. Documented by Katarzyna Malagon LPN on behalf of: Miguel Hannon DO documented in this encounter [facility] 11-28-2024 History of Present illness Narrative Headache/epigastric pain/blurry vision/swelling? No Cramping/contractions? No Spotting/vaginal bleeding? No Loss or gush of fluid like your water may have broken? No Do you have cats at home? No Do you change the litter box (reason: risk of toxoplasmosis)? N/A Genetic testing done this here or other office? No Have you been seen here at [facility] in a previous ? No Recent ER visits or hospitalizations? No Bring blood sugar log or meter with you today? (Please bring them with you for every visit at [facility]) Yes, Dexcom report Flu vaccine (Feb-June)? [...] TESTS AND ULTRASOUND REPORTS: Referral records and [facility] chart were reviewed Pertinent Ultrasound findings [...] more likely to fail compared to insulin. retirement data on children whose mothers took oral [...] CGM we will be reviewed weekly by [facility]. Status post diabetic education nutrition counseling at [facility] Detailed anatomy ultrasound scheduled for 12/11/2024 in [facility] Repeat growth ultrasound at 38 weeks gestation, through primary OB Recommend weekly testing for the remainder of , through primary OB Delivery recommendations : Recommend delivery at [id number] Discuss delivery if estimated weight is >4500g [...] developing diabetes later on. 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 Patient does have ultrasound and office visit scheduled with us. Thank you for allowing me to participate in the care of Javid Prasad. If there any questions please do not hesitate to contact us. Saul Granados MD Maternal- Medicine [facility] [address] [place] [address] This document was created with Standardized Safety technology. Though I make every effort to review the dictation as it is transcribed, on occasion the spoken word can be misinterpreted by the technology leading to inappropriate words, phrases, or sentences. This note is addressed to the requesting provider as a consultation for clinical guidance. Specific medical abbreviations are occasionally used and those are generally approved by the [place]?Board of?Obstetrics and?Gynecology?as well as?Ethan de souza abbreviations. The above plan of care was based solely on the diagnoses for which a consultation was requested. ?More frequent testing may be indicated based on her other medical/obstetrical conditions. The management of other or medical conditions is beyond the scope of requested consultation and will continue to be followed by the primary music composition teacher or primary care provider. Note to patient: [...] of the practitioner. documented in this encounter [facility] 11-26-2024 History of Present illness Narrative [...] morning and sched. documented in this encounter [facility] 11-26-2024 Miscellaneous Notes Called pt to let her know that Magnus Thomason reviewed her dexcom and would like her to start marking her fasting time and number. If she does know what her fasting numbers are and if they are consistently over 95 then she needs an appt to start medication. She can call and make that appt at [phone] option #3. It looks as though her fastings are running above target but would like to see what the actual numbers are running. documented in this encounter [facility] 11-26-2024 Telephone encounter Note Called pt to let her know that Magnus Thomason reviewed her dexcom and would like her to start marking her fasting time and number. If she does know what her fasting numbers are and if they are consistently over 95 then she needs an appt to start medication. She can call and make that appt at [phone] option #3. It looks as though her fastings are running above target but would like to see what the actual numbers are running. [facility] 11-25-2024 Miscellaneous Notes Called regarding food [...] meals. Asked that she call back at [phone] and let us know if she is having any consistent elevated blood sugars. documented in this encounter [facility] 11-25-2024 Telephone encounter Note Called regarding [...] meals. Asked that she call back at [phone] and let us know if she is having any consistent elevated blood sugars. [facility] 11-20-2024 History of Present illness Narrative DIABETES [...] care for you: OB Provider [facility] Relay Tester Name: Dr. Alvin Hannon Name: Dr. Karena [...] first Is there anything about your culture, tenriism, or personal beliefs we need to know about to care for you: Other Tracking Primary Language spoken: Cameroonian [22] Primary Language for learning: Cameroonian Are you currently in a relationship where you are physically hurt, threatened or made to fee afraid? [] Yes [] No Paint Brush Maker needed? [] Yes [] No Marital status/Living [...] Interpersonal Safety: Unknown (06/07/2023) Received from [facility] Safety & Environment Fear of [...] If yes, where: On thge following scale, [place] the number, which describes your current level [...] cooking/food storage Has everything Food Assistance(Ex.WIC, Food [place]) Declined Dining out Yes Twice a week Appetite/Appetite changes Flucuates, better lately Weight History Stable Do you have cats at home? Feeding Plans Breast Feeding If you have cats, who cleans the litter box? Cravings/Aversions/Pica Only food aversions to meat Nutrition Assessment Worksheet: Week/Weekend Food Recall Breakfast Cameroonian muffin with cream cheese or yogurt, water [...] time 38 minutes. documented in this encounter [facility] 11-18-2024 History of Present illness Narrative Reason [...] mg, Daily RT Blood Glucose Monitoring Suppl (Motostrano Glucometer) w/Device kit 1 kit, Does not [...] Marco Hyperlipidemia Father Adebayo Marco Hypertension Father Adeabyo Marco Kidney disease Father Adebayo Marco Stroke [...] nursing note reviewed. Exam conducted with a locker room clerk present. Vitals: Estimated body mass index is 38.52 kg/m as calculated from the following: Height as of 24: 6'. Weight as of this encounter: 284 lb. BP: 112/70 Patient's last menstrual period was 04/12/2024. ASSESSMENT & PLAN ICD-10-CM 1. Third trimester ([facility]) Z34.93 Urine dip 2. 31 weeks gestation of ([facility]) Z3A.31 Urine dip 3. Gestational diabetes mellitus (GDM), antepartum, gestational diabetes method of control unspecified ([facility]) O24.419 Return OB: Patient presents today for a routine obstetrics appointment. Patient is currently 31w3d . Patient states she is doing well but has complaints of being tired due to current . Patient has verbalizes frequent movement. labor precautions was discussed/given and patient was instructed to perform kick counts three times a day. Pt being sent to [facility] to complete anatomy scan. RVOT and LVOT and lips not evaluated. Pt voiced understanding. Orders Placed This Encounter Procedures Urine dip Follow Up: Patient is to return to office in 2 week for routine OB appointment. Documented by Katarzyna Malagon LPN on behalf of: Miguel Hannon DO documented in this encounter [facility] 11-03-2024 History of Present illness Narrative Reason [...] PLAN ICD-10-CM 1. 29 weeks gestation of ([facility]) Z3A.29 POCT urinalysis dipstick manually resulted 2. Third trimester ([facility]) Z34.93 POCT urinalysis dipstick manually resulted Return [...] Miguel Hannon DO documented in this encounter [facility] 10-21-2024 Note [facility] Consult Note Reason [...] normal affect Orientation (more content not included)... [facility] 10-21-2024 History of Present illness Narrative [...] Father Adebayo Marco Diabetes Maternal Grandfather James [place] Hypertension Maternal Grandmother Sandy [place] Diabetes Paternal Grandfather Rito Lara Kidney disease [...] ASSESSMENT & PLAN ICD-10-CM 1. Second trimester ([facility]) Z34.92 POCT urinalysis dipstick manually resulted 2. 27 weeks gestation of ([facility]) Z3A.27 POCT urinalysis dipstick manually resulted Return [...] of: ARELI Espinoza documented in this encounter [facility] 09-16-2024 History of Present illness Narrative Reason [...] nursing note reviewed. Exam conducted with a locker room clerk present. Vitals: Estimated body mass index is [...] Miguel Hannon DO documented in this encounter [facility] 08-19-2024 History of Present illness Narrative Reason [...] Father Adebayo Marco Diabetes Maternal Grandfather James [place] Hypertension Maternal Grandmother Sandy [place] Diabetes Paternal Grandfather Rito Marco Kidney disease [...] of: ARELI Espinoza documented in this encounter [facility] 07-22-2024 History of Present illness Narrative Reason [...] nursing note reviewed. Exam conducted with a locker room clerk present. Vitals: Estimated body mass index is [...] or undercooked meat, and stay away [facility] Patient has been consulted regarding any further [...] Miguel Hannon DO documented in this encounter [facility] 02-19-2024 History of Present illness Narrative Reason [...] D&C Hysteroscopy performed at [facility] with Dr. Hannon. Pathology results was reviewed with the patient in great detail and all restrictions have been lifted. Follow Up: Patient is to return to the office for annual exam unless needed otherwise. Documented by ARELI Espinoza on behalf of: ARELI Espinoza documented in this encounter [facility] 01-16-2024 History of Present illness Narrative Reason for Appointment: Patient ID: Javid Prasad is a 33 y.o. female who presents for Pre-op Visit Patient presents today for Pre Op appointment. Patient is scheduled to undergo D&C Hysteroscopy, possible Myosure on 02/08/[address] Hannon at [facility]. MEDICATIONS Current Outpatient Medications Medication Instructions metFORMIN [...] reviewed, and patient is to proceed to [facility] OR. Follow Up: Patient is to follow up between 1-2 weeks post operative to assess proper healing and recovery from procedure. Documented by Katarzyna Malagon LPN on behalf of: Miguel Hannon DO documented in this encounter [facility] 12-25-2023 History of Present illness Narrative Reason [...] nursing note reviewed. Exam conducted with a locker room clerk present. Vitals: Estimated body mass index is [...] Miguel Hannon DO documented in this encounter [facility] 06-19-2022 Note This is a Telephone Appointment [...] dreaming in association with her activity. 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 Nutrition/Health Caffeine [...] 05/16/2022 14:30 EST Electronically signed by Jaret DIAZIsabella 06/19/22 15:39 EST [facility] Evaluation note Diagnosis Pre-op examination Uterine leiomyoma, [...] of control unspecified [facility] Diagnosis Insulin controlled gestational [...] third trimester- [facility] Diagnosis Third trimester (HHS-HCC) state, incidental 37 weeks gestation of (HHS-HCC) documented in this encounter [facility] HealthcareInstructionsNot on filedocumented in this encounterProMedica Health SystemInstructionsNot on filedocumented in this encounterProSelect Specialty Hospital Health SystemInstructionsNot on filedocumented in this encounterProMedica Health SystemInstructionsNot on filedocumented in this encounterProMedica Health System InstructionsNot on filedocumented in this encounterProMedica Health System InstructionsNot on filedocumented in this encounterProMedica Health System InstructionsNot on filedocumented in this encounterHolden Memorial HospitalMedica Health System Summary Purpose Family History No [...] section and content) DATE CREATED AUTHOR 07/04/2021 [facility] DATE CREATED AUTHOR AUTHOR'S ORGANIZ ATION 2021 [facility] DATE CREATED AUTHOR AUTHOR'S ORGANIZ ATION 06/21/2022 [facility] DATE CREATED AUTHOR AUTHOR'S ORGANIZ ATION 12/15/2022 [facility] DATE CREATED AUTHOR AUTHOR'S ORGANIZ ATION 12/13/2024 [facility] DATE CREATED AUTHOR AUTHOR'S ORGANIZ ATION 12/25/2024 [facility] DATE CREATED AUTHOR AUTHOR'S ORGANIZ ATION [facility] DATE CREATED AUTHOR AUTHOR'S ORGANIZ ATION 12/29/2024 [facility] Care Teams (unrecognized sec tion and content) 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 Relationship Specialty Start Date End Date Adebayo Solares MD [address] [place] [address] PCP - General Family Medicine 11/19/23 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 Relationship Specialty Start Date End Date Adebyao Solares MD [address] [place], [place] [id number] PCP - General Family Medicine 11/19/23 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 Relationship Specialty Start Date End Date Adebayo Solares MD [address] [place] [address] PCP - General Family Medicine 11/19/23 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 Relationship Specialty Start Date End Date Adebayo Solares MD [address] [place] [address] PCP - General Family Medicine 11/19/23 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 Relationship Specialty Start Date End Date Adebayo Solares MD [address] [place] [address] PCP - General Family Medicine 11/19/23 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 Relationship Specialty Start Date End Date Adebayo Solares MD [address] [id number] PCP - General Family Medicine 11/19/23 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 Relationship Specialty Start Date End Date Adebayo Solares MD [address] [phone] (Work) PCP - General Family Medicine 11/19/23 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 Relationship Specialty Start Date End Date Adebayo Solares MD [address] [phone] (Work) PCP - General Family Medicine 11/19/23 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 Relationship Specialty Start Date End Date Adebayo Solares MD [address] [phone] (Work) PCP - General Family Medicine 11/19/23 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 Relationship Specialty Start Date End Date Adebayo Solares MD [address] [phone] (Work) PCP - General Family Medicine 11/19/23 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 Relationship Specialty Start Date End Date Adebayo Solares MD [address] [phone] (Work) PCP - General Family Medicine 11/19/23 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 Relationship Specialty Start Date End Date Adebayo Solares MD [address] [place] [address] PCP - General Family Medicine 11/19/23 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 Relationship Specialty Start Date End Date Adebayo Solares MD [address] [phone] PCP - General Family Medicine 11/19/23 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 Relationship Specialty Start Date End Date Adebayo Solares MD [address] [place], [place] [phone] (Work) PCP - General Family Medicine 11/19/23 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 Relationship Specialty Start Date End Date Adebayo Solares MD [address] [place], [place] [phone] (Work) PCP - General Family Medicine 11/19/23 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 Relationship Specialty Start Date End Date Adebayo Solares MD [address] [place] [address] PCP - General Family Medicine 11/19/23 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 Relationship Specialty Start Date End Date Adebayo Solares MD [address] [place], [place] [phone] (Work) PCP - General Family Medicine 11/19/23 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 Relationship Specialty Start Date End Date Adebayo Solares MD [address] [place], [place] [phone] (Work) PCP - General Family Medicine 11/19/23 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 Relationship Specialty Start Date End Date Adebayo Solares MD [address] [place], [place] [phone] (Work) PCP - General Family Medicine 11/19/23 Reason [...] of control unspecified Miguel Hannon R, DO [address] [place] [address] [place] [address] Phone: tel: fax: [facility]- [facility] at [facility] [address] [place] [address] Phone: tel: fax: Referral ID Status Reason Start Date Expiration Date Visits Requested Visits Authorized [id number] Pending Review Specialty Services Required 11/11/2024 11/11/2025 [...] BE BASED ON THE PRIMARY CLINICAL RECORDS. [facility] [employer] provides no warranty or guarantee of the accuracy or completeness of information in this document.
== END 2024-12-30 20:30 | disposition home or self-care (01) ==
LOC: FBCO 19:57 → FBC 19:59
PROVIDERS: PCP Family Medicine; Visit Provider Obstetrics & Gynecology
DX: O24.419 Gestational diabetes mellitus in pregnancy, unspecified control (principal); Z3A.37 37 weeks gestation of pregnancy
CPT/HCPCS: 59025

== ENCOUNTER 2025-01-01 00:10 | Inpatient (IN) | payer BC, SELFPAY ==
[2025-01-01] VITALS (88 sets, daily range): BP systolic 78–147; BP diastolic 41–91; PULSE 44–134; TEMP 36.4–37.6; O2SAT 95–100
--- OUTSIDE RECORDS SUMMARY | 2025-01-01 00:16 | XMS_ITS | CCD ---
Author Organization [facility] Care Team Providers Care Director Of Security Name Role Phone BECK, DR ADEBAYO Oropeza [...] Unavailable Solares, Adebayo Primary Care Unavailable Jaret FLOOR SANDER-GLUE MACHINE OPERATORIsabella Attending Unavaila ble Solares, Adebayo Primary Care Unavailable Jaret FLOOR SANDER-GLUE MACHINE OPERATOR, Isabella Sepulveda Attending Unavaila ble Solares, Adebayo Primary Care Unavailable SolaresAdebayo Consulting Unavailable SolaresAdebayo Referring Unavailable EEMKA HERNANDEZ Referring Unavailable Solares Adebayo GOYAL Primary Care Provider [phone] Unavailable Primary Care Provider UnavailMIGUEL Newton Referring Unavailable RIDDHIMIGUEL Referring Unavailable NAOMIE CHAHAL Attending Unavailable SAUL GRANADOS Attending Unavailable MIGUEL HANNON Referring Unavailable KATELINMAGNUS Attending Unavailable RIDDHIMIGUEL Referring Unavailable KATELINMAGNUS Attending Unavailable RIDDHIMIGUEL Referring Unavailable TRENTMARIANA Attending Unavailable CHALINO, VIRAL Referring Unavailable TRENT, MARIANA Referring Unavailable TRENT, MARIANA Referring Unavailable TRENT, MARIANA Referring Unavailable TRENT, MARIANA Referring Unavailable CHALINO, VIRAL Referring Unavailable TRENT, MARIANA Referring Unavailable TRENT, MARIANA Referring Unavailable CHALINO, VIRAL Referring Unavailable TRENT, MARIANA Referring Unavailable TRENT, MARIANA Referring Unavailable CHALINO, VIRAL Referring Unavailable MIGUEL HANNON Attending Unavailable MAUREEN FELIZ Attending Unavailable RIDDHIMIGUEL Attending Unavailable RIDDHI, MIGUEL Attending Unavailable PAULA, MAUREEN Attending Unavailable RIDDHI, MIGUEL Attending Unavailable RIDDHI, MIGUEL Attending Unavailable RIDDHI, MIGUEL Attending Unavailable PAULA, MAUREEN Attending Unavailable RIDDHI, MIGUEL Attending Unavailable PAULA, MAUREEN Attending Unavailable PAULA, MAUREEN Attending Unavailable Allergies [...] Continuous Glucose Sensor (Dexcom G7 Sensor) misc (15 sources) Start: 12-02-2024 End: 01-01-2025 Continuous Glucose Sensor (Dexcom G7 Sensor) misc Indications: Gestational diabetes mellitus (GDM), antepartum, gestational diabetes method of control unspecified (HHS-HCC) 1 each Every 10 (ten) days 3 each 1 12/02/2024 01/01/2025 Active 3 ml insulin glargine 100 unt/ml pen injector (20 sources) Insulin Analog Start: 12-18-2024 End: 12-30-2024 inject 2 [IU] by subcutaneous injection in the evening insulin glargine (LANTUS SOLOSTAR U-100 INSULIN) 100 unit/mL (3 mL) insulin pen Inject 32 units of insulin in the evening, subcutaneously, prime 2 units 15 mL 11 12/30/2024 Active Start: 12-03-2024 End: 12-09-2024 insulin glargine [...] diabetes method of control unspecified ([facility]) , Elevated glucose tolerance test Apply 1 [...] Active PNV no.153/FA/om3/dha/epa/fi sh ( GUMMIES ORAL) (14 sources) take 2 doses by mouth in [...] tolerance complicating ; childbirth; or the puerperium (18 sources) Gestational diabetes mellitus; Translations: [Gestational diabetes [...] UA Negative Negative - 4(70) +++ mg/dL [facility] Blood, UA Negative Negative - 50 Osmin/mcL [facility] Clarity, UA Clear [facility] Color, UA Yellow [facility] Glucose, UA Negative Negative - 1999(110) ++++ mg/dL [facility] Interpretation and review of laboratory results Normal [facility] Ketones, UA Negative Negative - 160(16) ++++ mg/dL [facility] Leukocytes, UA Negative Negative - 500+++ Oumou/mcL [facility] Nitrite, UA Negative Negative - Positive [facility] pH, UA 6 5 - 9 [facility] Protein, UA Negative Negative - 1999(20) ++++ mg/dL [facility] Spec Grav, UA 1.02 1 - 1.03 [facility] care Urobilinogen, UA 0.2 0.2 - 12 mg/dL [facility] BPP W NON-STRESS on 12-26-2024 [place] [address] Ultrasound Report Signed Patient: JAVID PRASAD MR#: [id number] : 1990 Acct:[id number] Age/Sex: 34 / F ADM Date: 12/26/24 Loc: US Attending Dr: Miguel Hannon D.O. Ordering Physician: Miguel Hannon D.O. Date of Service: 12/26/24 Procedure(s): US OB BPP w non-stress Accession Number(s): [id number] cc: Miguel Hannon D.O.; ADEBAYO SOLARES D.O. The [place] [id number] Patient Name: JAVID PRASAD MRN: [facility]:[id number] date: 1990 Sex: F Assigned Patient Location: [facility] Current Patient Location: Accession/Order Number: [id number] Exam Date: 12/26/2024 19:20 Report Date: 12/26/2024 [...] Hough M.D. 12/26/2024 9:30 PM Dictation Location: [place] [address] Electronically authenticated by: [id number] Y Date: 12/26/2024 21:30 Dictated By: Barry Hough M.D. Signed By: 12/26/242132 DD/ 29 TD/TT: Shredding Machine Operator: [facility] Radiology, Radiologist, MD - 12/26/2024 [place] [address] Ultrasound Report Signed Patient: JAVID PRASAD MR#: [id number] : 1990 Acct:[id number] Age/Sex: 34 / F ADM Date: 12/26/24 Loc: US Attending Dr: Miguel Hannon D.O. Ordering Physician: Miguel Hannon D.O. Date of Service: 12/26/24 Procedure(s): US OB BPP w non-stress Accession Number(s): [id number] cc: Miguel Hannon D.O.; ADEBAYO SOLARES D.O. The [place] [id number] Patient Name: JAVID PRASAD MRN: [facility]:[id number] date: 1990 Sex: F Assigned Patient Location: [facility] Current Patient Location: Accession/Order Number: [id number] Exam Date: 12/26/2024 19:20 Report Date: 12/26/2024 [...] Hough M.D. 12/26/2024 9:30 PM Dictation Location: [place] [address] Electronically authenticated by: [id number] Y Date: 12/26/2024 21:30 Dictated By: Barry Hough M.D. Signed By: 12/26/242132 DD/ 29 TD/TT: Shredding Machine Operator: [facility] Radiology Study observation (narrative) [facility] US OB BPP W NON-STRESS Ordered By: Radiologist Radiology on 12-26-2024 [facility] Work Phone: Orders Onlyon 12-23-2024 Orders Only [id number] Javid Prasad 1990 F Date Provider Department Center 12/23/2024 [facility] Family History Problem Relation Age of Onset Atrial fibrillation Mother Diabetes Father Kidney disease Father Heart attack Maternal Grandmother Family Status - Relation Status Age at Mother Alive Father Alive Maternal Grandmother Normal [facility] Urinalysis macro (dipstick) panel (U)on 12-23-2024 Bilirubin, UA Negative Negative - 4(70) +++ mg/dL [facility] Blood, UA Negative Negative - 50 Osmin/mcL [facility] Clarity, UA Clear [facility] re Color, UA Yellow [facility] Glucose, UA Negative Negative - 1999(110) ++++ mg/dL [facility] Interpretation and review of laboratory results Abnormal [facility] Ketones, UA Negative Negative - 160(16) ++++ mg/dL [facility] Leukocytes, UA Positive Negative - 500+++ Oumou/mcL [facility] Comment on above: 2+ Nitrite, UA Negative Negative - Positive [facility] pH, UA 6 5 - 9 [facility] Protein, UA Positive Negative - 1999(20) ++++ mg/dL [facility] Spec Grav, UA 1.015 1 - 1.03 [facility] care Urobilinogen, UA 1.0 0.2 - 12 mg/dL [facility] US OB BPP W NON-STRESS on 12-19-[address] [address] Ultrasound Report Signed Patient: JAVID PRASAD MR#: [id number] : 1990 Acct:[id number] Age/Sex: 33 / F ADM Date: 12/19/24 Loc: US Attending Dr: Miguel Hannon D.O. Ordering Physician: Miguel Hannon D.O. Date of Service: 12/19/24 Procedure(s): US OB BPP w non-stress Accession Number(s): [id number] cc: Miguel Hannon D.O.; ADEBAYO SOLARES D.O. The [place] [id number] Patient Name: JAVID PRASAD MRN: [facility]:[id number] date: 1990 Sex: F Assigned Patient Location: [facility] Current Patient Location: Accession/Order Number: [id number] Exam Date: 12/19/2024 19:14 Report Date: 12/19/2024 [...] Deutsch M.D. 12/19/2024 9:48 PM Dictation Location: [place] [address] Electronically authenticated by: [id number] Y Date: 12/19/2024 21:48 Dictated By: Sergo Deutsch D.O. Signed By: 12/19/242149 DD/ 47 TD/TT: Shredding Machine Operator: [facility] Radiology, Radiologist, MD - 12/19/2024 The [place] [id number] Ultrasound Report Signed Patient: JAVID PRASAD MR#: [id number] : 1990 Acct:[id number] Age/Sex: 33 / F ADM Date: 12/19/24 Loc: US Attending Dr: Miguel Hannon D.O. Ordering Physician: Miguel Hannon D.O. Date of Service: 12/19/24 Procedure(s): US OB BPP w non-stress Accession Number(s): [id number] cc: Miguel Hannon D.O.; ADEBAYO SOLARES D.O. [place] [address] Patient Name: JAVID PRASAD MRN: [facility]:[id number] date: 1990 Sex: F Assigned Patient Location: [facility] Current Patient Location: Accession/Order Number: [id number] Exam Date: 12/19/2024 19:14 Report Date: 12/19/2024 [...] Deutsch M.D. 12/19/2024 9:48 PM Dictation Location: [place] [address] Electronically authenticated by: [id number] Y Date: 12/19/2024 21:48 Dictated By: Sergo Deutsch D.O. Signed By: 12/19/242149 DD/ 47 TD/TT: Shredding Machine Operator: [facility] Radiology Study observation (narrative) [facility] US OB BPP W NON-STRESS Ordered By: Radiologist Radiology on 12-19-2024 [facility] [employer] Work Phone: Urinalysis macro (dipstick) panel (U)on 12-16-2024 Bilirubin, UA Negative Negative - 4(70) +++ mg/dL [facility] Blood, UA Negative Negative - 50 Osmin/mcL [facility] Clarity, UA Clear [facility] Health[facility] re Color, UA Yellow [facility] Glucose, UA Negative Negative - 1999(110) ++++ mg/dL [facility] Interpretation and review of laboratory results Abnormal [facility] Ketones, UA Negative Negative - 160(16) ++++ mg/dL [facility] Leukocytes, UA Positive Negative - 500+++ Oumou/mcL [facility] Nitrite, UA Negative Negative - Positive [facility] pH, UA 6 5 - 9 [facility] Protein, UA Negative Negative - 1999(20) ++++ mg/dL [facility] Spec Grav, UA 1.015 1 - 1.03 [facility] Urobilinogen, UA 1.0 0.2 - 12 mg/dL [facility] US OB BPP W NON-STRESS on 12-12-2024 [place] [address] Ultrasound Report Signed Patient: JAVID PRASAD MR#: [id number] : 1990 Acct:[id number] Age/Sex: 33 / F ADM Date: 12/12/24 Loc: [facility] 250-[address]: Miguel Hannon D.O. Ordering Physician: Miguel Hannon D.O. Date of Service: 12/12/24 Procedure(s): US OB BPP w non-stress Accession Number(s): [id number] cc: Miguel Hannon D.O.; ADEBAYO SOLARES D.O. The [address] [address] Patient Name: JAVID PRASAD MRN: [id number]:[id number] date: 1990 Sex: F Assigned Patient Location: [facility] Current Patient Location: [facility] Accession/Order Number: [id number] Exam Date: 12/12/2024 19:06 Report Date: 12/12/2024 [...] Mcdermott M.D. 12/12/2024 8:20 PM Dictation Location: [place] [address] Electronically authenticated by: [id number] Y Date: 12/12/2024 20:20 Dictated By: Tutu Mcdermott M.D. Signed By: 12/12/242022 DD/ 19 TD/TT: Shredding Machine Operator: [facility] Radiology, Radiologist, MD - 12/12/2024 [place] [address] Ultrasound Report Signed Patient: JAVID PRASAD MR#: [id number] : 1990 Acct:[id number] Age/Sex: 33 / F ADM Date: 12/12/24 Loc: [place] [address]- Attending Dr: Miguel Hannon D.O. Ordering Physician: Miguel Hannon D.O. Date of Service: 12/12/24 Procedure(s): US OB BPP w non-stress Accession Number(s): [id number] cc: Miguel Hannon D.O.; ADEBAYO SOLARES D.O. The [place] [id number] Patient Name: JAVID PRASAD MRN: [facility]:[id number] date: 1990 Sex: F Assigned Patient Location: [facility] Current Patient Location: [facility] Accession/Order Number: [id number] Exam Date: 12/12/2024 19:06 Report Date: 12/12/2024 20:20 At the request of: MIGUEL RIDDHI DO Procedure: US OB BPP w non-stress [...] Mcdermott M.D. 12/12/2024 8:20 PM Dictation Location: [employer] (T/A[email or web address] Electronically authenticated by: [id number] Y Date: 12/12/2024 20:20 Dictated By: Tutu Mcdermott M.D. Signed By: 12/12/242022 DD/ 19 TD/TT: Shredding Machine Operator[facility] Rad[facility] Study observation (narrative) [facility] [employer] US OB BPP W NON-STRESS Ordered By: Radiologist Radiology on 12-12-2024 [facility] Work Phone: US OB BPP W NON-STRESS on 12-06-2024 [place] [address] Ultrasound Report Signed Patient: JAVID PRASAD MR#: [id number] : 1990 Acct:[id number] Age/Sex: 33 / F ADM Date: 12/05/24 Loc: US Attending Dr: Miguel Hannon D.O. Ordering Physician: Miguel Hannon D.O. Date of Service: 12/05/24 Procedure(s): US OB BPP w non-stress Accession Number(s): [id number] cc: Miguel Hannon D.O.; ADEBAYO SOLARES D.O. [address] [address] Patient Name: JAVID PRASAD MRN: [id number]:[id number] date: 1990 Sex: F Assigned Patient Location: [facility] Current Patient Location: [facility] Accession/Order Number: [id number] Exam Date: 12/05/2024 19:12 Report Date: 12/06/2024 [...] Mcdermott M.D. 12/06/2024 5:01 PM Dictation Location: [place] [address] Electronically authenticated by: [id number] Y Date: 12/06/2024 17:01 Dictated By: Tutu Mcdermott M.D. Signed By: 12/06/242015 DD/ 00 TD/TT: Shredding Machine Operator: [facility] Radiology, Radiologist, - 12/06/2024 [place] [address] Ultrasound Report Signed Patient: JAVID PRASAD MR#: [id number] : 1990 Acct:[id number] Age/Sex: 33 / F ADM Date: 12/05/24 Loc: US Attending Dr: Miguel Hannon D.O. Ordering Physician: Miguel Hannon D.O. Date of Service: 12/05/24 Procedure(s): US OB BPP w non-stress Accession Number(s): [id number] cc: Miguel Hannon D.O.; ADEBAYO SOLARES D.O. [address] [address] Patient Name: JAVID PRASAD MRN: [id number]:[id number] date: 1990 Sex: F Assigned Patient Location: [facility] Current Patient Location: [facility] Accession/Order Number: [id number] Exam Date: 12/05/2024 19:12 Report Date: 12/06/2024 [...] Mcdermott M.D. 12/06/2024 5:01 PM Dictation Location: [email or web address] Electronically authenticated by: [id number] Y Date: 12/06/2024 17:01 Dictated By: Tutu Mcdermott M.D. Signed By: 12/06/242015 DD/ 00 TD/TT: Shredding Machine Operator: [facility] [employer] Radiology Study observation (narrative) [facility] US OB BPP W NON-STRESS Ordered By: Radiologist Radiology on 12-06-2024 [facility] [employer] Work Phone: Urinalysis macro (dipstick) panel (U)on 12-02-2024 Bilirubin, UA Negative Negative - 4(70) +++ mg/dL [facility] Blood, UA Negative Negative - 50 Osmin/mcL [facility] Clarity, UA Clear [facility] [employer] Color, UA Yellow [facility] Glucose, UA Negative Negative - 2000(110) ++++ mg/dL [facility] Interpretation and review of laboratory results Abnormal [facility] Ketones, UA Negative Negative - 160(16) ++++ mg/dL [facility] Leukocytes, UA Positive Negative - 500+++ Oumou/mcL [facility] Nitrite, UA Negative Negative - Positive [facility] pH, UA 6 5 - 9 [facility] Health[facility] e Protein, UA Negative Negative - 2000(20) ++++ mg/dL [facility] Spec Grav, UA 1.025 1 - 1.03 [facility] Urobilinogen, UA 1.0 0.2 - 12 mg/dL [facility] POCT Hemoglobin A1con 2024 HbA1c (Bld) [Mass fraction] 5.7 % 4 - 7 % [facility] US OB BPP W NON-STRESS on 11-27-2024 [place] [address] Ultrasound Report Signed Patient: JAVID PRASAD MR#: [id number] : 1990 Acct:[id number] Age/Sex: 33 / F ADM Date: 11/27/24 Loc: US Attending Dr: Miguel Hannon D.O. Ordering Physician: Miguel Hannon D.O. Date of Service: 11/27/24 Procedure(s): US OB BPP w non-stress Accession Number(s): [id number] cc: Miguel Hannon D.O.; ADEBAYO SOLARES D.O. [address] [address] Patient Name: JAVID PRASAD MRN: [id number]:[id number] date: 1990 Sex: F Assigned Patient Location: [facility] Current Patient Location: Accession/Order Number: [id number] Exam Date: 11/27/2024 23:39 Report Date: 11/27/2024 [...] Deutsch M.D. 11/27/2024 11:40 PM Dictation Location: [place] [address] Electronically authenticated by: [id number] Y Date: 11/27/2024 23:40 Dictated By: Sergo Deutsch D.O. Signed By: 11/27/242341 DD/ 39 TD/TT: Shredding Machine Operator: [facility] Radiology, Radiologist, MD - 11/27/2024 [place] [address] Ultrasound Report Signed Patient: JAVID PRASAD MR#: [id number] : 1990 Acct:[id number] Age/Sex: 33 / F ADM Date: 11/27/24 Loc: US Attending Dr: Miguel Hannon D.O. Ordering Physician: Miguel Hannon D.O. Date of Service: 11/27/24 Procedure(s): US OB BPP w non-stress Accession Number(s): [id number] cc: Miguel Hannon D.O.; ADEBAYO SOLARES D.O. The [place] [id number] Patient Name: JAVID PRASAD MRN: [facility]:[id number] date: 1990 Sex: F Assigned Patient Location: [facility] Current Patient Location: Accession/Order Number: [id number] Exam Date: 11/27/2024 23:39 Report Date: 11/27/2024 [...] Deutsch M.D. 11/27/2024 11:40 PM Dictation Location: [place] [address] Electronically authenticated by: [id number] Y Date: 11/27/2024 23:40 Dictated By: Sergo Deutsch D.O. Signed By: 11/27/242341 DD/ 39 TD/TT: Shredding Machine Operator: [facility] Radiology Study observation (narrative) [facility] US OB BPP W NON-STRESS Ordered By: Radiologist Radiology on 11-27-2024 [facility] Work Phone: Urinalysis macro (dipstick) panel (U)on 11-18-2024 Bilirubin, UA Negative Negative - 4(70) +++ mg/dL [facility] Blood, UA Negative Negative - 50 Osmin/mcL [facility] Clarity, UA Clear [facility] re Color, UA Light Yellow [facility] Glucose, UA Trace Negative - 1999(110) ++++ mg/dL [facility] Interpretation and review of laboratory results Normal [facility] Ketones, UA Negative Negative - 160(16) ++++ mg/dL [facility] Leukocytes, UA Negative Negative - 500+++ Oumou/mcL [facility] Nitrite, UA Negative Negative - Positive [facility] pH, UA 6 5 - 9 [facility] e Protein, UA Negative Negative - 2000(20) ++++ mg/dL [facility] Spec Grav, UA 1.015 1 - 1.03 [facility] Urobilinogen, UA 4.0 0.2 - 12 mg/dL [facility] US OB INCOMPLETE ANATOMYon 0 11-14-2024 [place] [address] Ultrasound Report Signed Patient: JAVID PRASAD MR#: [id number] : 1990 Acct:[id number] Age/Sex: 33 / F ADM Date: 11/13/24 Loc: US Attending Dr: Miguel Hannon D.O. Ordering Physician: Miguel Hannon D.O. Date of Service: 11/13/24 Procedure(s): US OB incomplete anatomy Accession Number(s): [id number] cc: Miguel Hannon D.O.; ADEBAYO SOLARES D.O. The [place] [id number] Patient Name: JAVID PRASAD MRN: [facility]:[id number] date: 1990 Sex: F Assigned Patient Location: US Current Patient Location: Accession/Order Number: [id number] Exam Date: 11/14/2024 09:56 Report Date: 11/14/2024 [...] Jr., D.O. 11/14/2024 10:06 AM Dictation Location: [place] [address] Electronically authenticated by: [id number] Y Date: 11/14/2024 10:06 Dictated By: Mark Anthony Conner M.D. Signed By: 11/14/24 1009 DD/ 1006 TD/TT: Shredding Machine Operator: [facility] Radiology, Radiologist, MD - 11/14/2024 [place] [id number] Ultrasound Report Signed Patient: JAVID PRASAD MR#: [id number] : 1990 Acct:[id number] Age/Sex: 33 / F ADM Date: 11/13/24 Loc: US Attending Dr: Miguel Hannon D.O. Ordering Physician: Miguel Hannon D.O. Date of Service: 11/13/24 Procedure(s): US OB incomplete anatomy Accession Number(s): [id number] cc: Miguel Hannon D.O.; ADEBAYO SOLARES D.O. [place] [address] Patient Name: JAVID PRASAD MRN: [id number] date: 1990 Sex: F Assigned Patient Location: US Current Patient Location: Accession/Order Number: [id number] Exam Date: 11/14/2024 09:56 Report Date: 11/14/2024 [...] Jr., D.O. 11/14/2024 10:06 AM Dictation Location: [place] [address] Electronically authenticated by: [id number] Y Date: 11/14/2024 10:06 Dictated By: Mark Anthony Conner M.D. Signed By: 11/14/24 1009 DD/ 1006 TD/TT: Shredding Machine Operator: [facility] Radiology Study observation (narrative) [facility] US OB INCOMPLETE ANATOMYOrde red By: Radiologist Radiology on 11-14-2024 [facility] [employer] Work Phone: GLUCOSE TOLERANCE 3 HOURon 0 11-10-2024 GLUCOSE TOLERANCE 3 HOUR High mg/dL [facility] Comment on above: GLU FAST 113H (<95) Col: 11/10/24 0845 GLU 1HR 208H (<180) Col: 11/10/24 0945 GLU 2HR 152 (<155) Col: 11/10/24 1052 GLU 3HR 81 (<140) Col: 11/10/24 1147 Interpretation and review of laboratory results Abnormal [facility] Urinalysis macro (dipstick) panel (U)on 11-03-2024 Bilirubin, UA Negative Negative - 4(70) +++ mg/dL [facility] Blood, UA Negative Negative - 50 Osmin/mcL [facility] Clarity, UA Clear [facility] Health[facility] re Color, UA Yellow [facility] Glucose, UA Positive Negative - 1999(110) ++++ mg/dL [facility] Interpretation and review of laboratory results Abnormal [facility] Ketones, UA Negative Negative - 160(16) ++++ mg/dL [facility] Leukocytes, UA Negative Negative - 500+++ Oumou/mcL [facility] Nitrite, UA Negative Negative - Positive [facility] pH, UA 7 5 - 9 [facility] Protein, UA Trace Negative - 1999(20) ++++ mg/dL [facility] Spec Grav, UA 1.02 1 - 1.03 [facility] Urobilinogen, UA 1.0 0.2 - 12 mg/dL [facility] OB GROWTHon 10-31-2024 [place] [id number] Ultrasound Report Signed Patient: JAVID PRASAD MR#: [id number] : 1990 Acct:[id number] Age/Sex: 33 / F ADM Date: 10/30/24 Loc: US Attending Dr: Maureen Feliz Ordering Physician: Maureen Feliz Date of Service: 10/30/24 Procedure(s): US OB growth Accession Number(s): [id number] cc: Maureen Feliz; ADEBAYO SOLARES D.O. [address] [address] Patient Name: JAVID PRASAD MRN: [id number]:[id number] date: 1990 Sex: F Assigned Patient Location: US Current Patient Location: Accession/Order Number: [id number] Exam Date: 10/31/2024 07:37 Report Date: 10/31/2024 [...] Crow M.D. 10/31/2024 7:41 AM Dictation Location: [place] [address] Electronically authenticated by: [id number] Y Date: 10/31/2024 07:41 Dictated By: Katarzyna Crow M.D. Signed By: 10/31/24 0744 DD/ 0741 TD/TT: Shredding Machine Operator: [facility] Radiology, Radiologist, MD - 10/31/2024 [place] [address] Ultrasound Report Signed Patient: JAVID PRASAD MR#: [id number] : 1990 Acct:[id number] Age/Sex: 33 / F ADM Date: 10/30/24 Loc: US Attending Dr: Maureen Feliz Ordering Physician: Maureen Feliz Date of Service: 10/30/24 Procedure(s): US OB growth Accession Number(s): [id number] cc: Maureen Feliz; ADEBAYO SOLARES D.O. The [place] [address] Patient Name: JAVID PRASAD MRN: [id number] date: 1990 Sex: F Assigned Patient Location: Current Patient Location: Accession/Order Number: [id number] Exam Date: 10/31/2024 07:37 Report Date: 10/31/2024 [...] Crow M.D. 10/31/2024 7:41 AM Dictation Location: [place] [address] Electronically authenticated by: [id number] Y Date: 10/31/2024 07:41 Dictated By: Katarzyna Crow M.D. Signed By: 10/31/24 0744 DD/ TD/TT: Shredding Machine Operator: [facility] Radiology Study observation (narrative) [facility] OB GROWTHOrdered By: Layne ologfortunato Radiology on 10-31-2024 [facility] [employer] Work Phone: Office Visiton 10-21-2024 Follow-up visit [id number] Javid Prasad 1990 F Date Provider Department Center 10/21/2024 [facility] Family History Problem Relation Age of Onset Atrial fibrillation Mother Diabetes Father Kidney disease Father Heart attack Maternal Grandmother Family Status - Relation Status Age at Mother Alive Father Alive Maternal Grandmother Level of Service:62326 [place] OFFICE/OUTPATIENT ESTABLISHED LOW MDM 20 MIN Normal [facility] Urinalysis macro (dipstick) panel (U)on 10-21-2024 Bilirubin, UA Negative Negative - 4(70) +++ mg/dL [facility] Blood, UA Negative Negative - 50 Osmin/mcL [facility] Clarity, UA Clear [facility] re Color, UA Yellow [facility] Glucose, UA Negative Negative - 1999(110) ++++ mg/dL [facility] Interpretation and review of laboratory results Abnormal [facility] Ketones, UA Positive Negative - 160(16) ++++ mg/dL [facility] Leukocytes, UA Negative Negative - 500+++ Oumou/mcL [facility] Nitrite, UA Negative Negative - Positive [facility] pH, UA 5.5 5 - 9 [facility] Protein, UA Negative Negative - 1999(20) ++++ mg/dL [facility] Spec Grav, UA 1.02 1 - 1.03 [facility] Urobilinogen, UA 1.0 0.2 - 12 mg/dL [facility] US OB 14+ WEEKS [...] II, MD, PHD at 18-Sep-2024 08:49:14 AM [facility] Normal Not Available Comment on above: Order Comment: US OB ANATOMY SINGLE W US OB CERVICAL LENGTH Estimated Date of Delivery: 01/17/25 Gestational Age as of 08/19/2024: 18w3d Urinalysis macro (dipstick) panel (U)on 09-16-2024 Bilirubin, UA Negative Negative - 4(70) +++ mg/dL [facility] Blood, UA Negative Negative - 50 Osmin/mcL [facility] Healthcare Clarity, UA Clear [facility] Color, UA Yellow [facility] Glucose, UA Negative Negative - 2000(110) ++++ mg/dL [facility] Interpretation and review of laboratory results Normal [facility] Ketones, UA Negative Negative - 160(16) ++++ mg/dL [facility] Leukocytes, UA Negative Negative - 500+++ Oumou/mcL [facility] Healthcare Nitrite, UA Negative Negative - Positive [facility] Healthcare pH, UA 6 5 - 9 [facility] Protein, UA Negative Negative - 1999(20) ++++ mg/dL [facility] Spec Grav, UA 1.025 1 - 1.03 [facility] Urobilinogen, UA 0.2 0.2 - 12 mg/dL [facility] GLUCOSE TOLERANCE 3 HOURon 0 08-23-2024 GLUCOSE TOLERANCE 3 HOUR High mg/dL [facility] Comment on above: GLU FAST 110H (<95) Col: 08/23/24 0738 GLU 1HR 173 (<180) Col: 08/23/24 0839 GLU 2HR 131 (<155) Col: 08/23/24 0939 GLU 3HR 67 (<140) Col: 08/23/24 1040 Interpretation and review of laboratory results Abnormal [facility] RECURRENT VAGINITIS (HTRX)on 08-20-2024 ATOPOBIUM VAGINAE 0 [facility] ATOPOBIUM VAGINAE Not detected [facility] BVAB 2,3 (BACTERIAL VAGINOSIS ASSOCIATED BACTERIA 2, 3); MOBILUNCUS SPP 0 [facility] BVAB 2,3 (BACTERIAL VAGINOSIS ASSOCIATED BACTERIA 2, 3); MOBILUNCUS SPP Not detected [facility] AGUSTIN ALBICANS, PARAPSILOSIS, TROPICALIS 0 [facility] AGUSTIN ALBICANS, PARAPSILOSIS, TROPICALIS Not detected [facility] GLABRATA Not detected [facility] AGUSTIN KRUSEI [address] [facility] hcare AGUSTIN KRUSEI Not detected [facility] CHLAMYDIA TRACHOMATIS 0 [facility] CHLAMYDIA TRACHOMATIS Not detected N [facility] GARDNERELLA VAGINALIS 0 [facility] GARDNERELLA VAGINALIS Not detected N [facility] MEGASPHAERA (TYPES 1, 2) 0 [facility] MEGASPHAERA (TYPES 1, 2) Not detected [facility] MYCOPLASMA GENITALIUM 0 [facility] MYCOPLASMA GENITALIUM Not detected N [facility] NEISSERIA GONORRHOEAE 0 [facility] NEISSERIA GONORRHOEAE Not detected N [facility] TRICHOMONAS VAGINALIS 0 [facility] TRICHOMONAS VAGINALIS Not detected N [facility] e GLUCOSE 1 HOURon 08-19-2024 Glucose [Mass/Vol] 182 mg/dL High NINF - 13 0 mg/dL [facility] Interpretation and review of laboratory results Abnormal [facility] Urinalysis macro (dipstick) panel (U)on 08-19-2024 Bilirubin, UA Positive Negative - 4(70) +++ mg/dL [facility] Comment on above: small Blood, UA Negative Negative - 50 Osmin/mcL [facility] Healthcare Clarity, UA Clear [facility] Color, UA Yellow [facility] Glucose, UA Negative Negative - 1999(110) ++++ mg/dL [facility] Interpretation and review of laboratory results Abnormal [facility] Ketones, UA Positive Negative - 160(16) ++++ mg/dL [facility] Comment on above: 15 Leukocytes, UA Negative Negative - 500+++ Oumou/mcL [facility] Healthcare Nitrite, UA Negative Negative - Positive [facility] Healthcare pH, UA 6 5 - 9 [facility] Protein, UA Positive Negative - 1999(20) ++++ mg/dL [facility] Comment on above: 30 Spec Grav, UA 1.025 1 - 1.03 [facility] care Urobilinogen, UA 0.2 0.2 - 12 mg/dL [facility] Urinalysis macro (dipstick) panel (U)on 07-22-2024 Bilirubin, UA Negative Negative - 4(70) +++ mg/dL [facility] Blood, UA Negative Negative - 50 Osmin/mcL [facility] Healthcare Clarity, UA Clear [facility] Color, UA Yellow [facility] Glucose, UA Negative Negative - 1999(110) ++++ mg/dL [facility] Interpretation and review of laboratory results Abnormal [facility] Ketones, UA Positive Negative - 160(16) ++++ mg/dL [facility] Comment on above: trace Leukocytes, UA Negative Negative - 500+++ Uomou/mcL [facility] Healthcare Nitrite, UA Negative Negative - Positive [facility] Healthcare pH, UA 6.5 5 - 9 [facility] Protein, UA Trace Negative - 1999(20) ++++ mg/dL [facility] Spec Grav, UA 1.025 1 - 1.03 [facility] Urobilinogen, UA 0.2 0.2 - 12 mg/dL [facility] CBC and differentialon 07-15 Hematocrit (Bld) [Volume fraction] 42 % 36 - 46 % [facility] Hemoglobin (Bld) [Mass/Vol] 13.6 g/dL 12.0 - 16.0 g/dL [facility] Platelets (Bld) [#/Vol] 392 10*3/uL 150 - 399 10*3/uL [facility] WBC (Bld) [#/Vol] 9.2 10*3/mL 3.3 - 10.0 10*3/mL [facility] CBC without diffon Rbc Mcv (Fl) By Automated Count 85.4 [facility] Drug Screen, Urineon 025 Amphetamine/Methamphe tamine Negative [facility] Barbiturates Negative [facility] Benzodiazepines Negative [facility] Cocaine Metabolite Negative [facility] Methadone Negative [facility] Opiates Negative [facility] Oxycodone Negative [facility] Phencyclidine Negative [facility] Thc Marijuana, Urine Negative [facility] Glucose 1h post 50g loadon 0 07-15-2024 Glucose, 1Hr PP 182 [facility] HBV surface Ag IA Qlon 07-15 Hepatitis B Surface Antigen Negative [facility] HIV 1+2 Ab+HIV1 p24 Ag IA Ql on 07-15-2024 HIV 1&2 AB/AG Non-Reactive [facility] Laboratory - Chemistry and C hemistry - challengeon 07-15-2024 Glucose [Mass/Vol] 111 mg/dL [facility] Laboratory - Hematology and Cell countson 07-15-2024 HbA1c (Bld) [Mass fraction] 5.5 % 4.0 - 6.0 % [facility] Comment on above: ADA RECOMMENDED LIMI T 4.0 - 6.0 ADA THERAPEUTIC TARGET < 7.0 ACTION SUGGESTED > 7.0 MLR HEMOGLOBIN A1Con 025 [facility] No Panel Informationon 07-15 [facility] Rubella IGG immune statuson 07-15-2024 Rubella immune IgG 1.77 [facility] T. pallidum IgG+IgM IA Ql (S )on 07-15-2024 Syphilis Non-Reactive [facility] Type and screenon 07-15-2024 Abo/Rh(D) Positive [facility] US OB TRANSVAGINALon 025 US OB [...] II, MD, PHD at 20-Jun-2024 08:24:08 AM [facility] Normal Not Available Comment on above: Order Comment: US OB TRANSVAGINAL No LMP recorded. [facility] PREG QUANT HCGon 025 HCG QUANTITATIVE 2792 mIU/mL [facility] Comment on above: 5-50 0.2-1 WEEK 50-500 1-2 WEEKS 100-5,000 2-3 WEEKS 500-10,000 3-4 WEEKS 1,000-50,000 4-5 WEEKS 10,000-100,000 5-6 WEEKS 15,000-200,000 6-8 WEEKS 10,000-100,000 2-3 MONTHS [facility] PREG QUANT HCGon 025 HCG QUANTITATIVE 713 mIU/mL [facility] Comment on above: 5-50 0.2-1 WEEK 50-500 1-2 WEEKS 100-5,000 2-3 WEEKS 500-10,000 3-4 WEEKS 1,000-50,000 4-5 WEEKS 10,000-100,000 5-6 WEEKS 15,000-200,000 6-8 WEEKS 10,000-100,000 2-3 MONTHS [facility] ALL CBC WITH AUTO DIFFon BASOPHILS ABSOLUTE AUTO 0.1 [facility] Basophils/100 WBC (Bld) 0.8 % 0.2 - 2.0 % [facility] Eosinophils/100 WBC (Bld) 3.5 % 0.9 - 7.0 % [facility] Erythrocyte distribution width (RBC) [Ratio] 13.2 % 11.0 - 15.0 % [facility] Hematocrit (Bld) [Volume fraction] 41.9 % 36.0 - 48.0 % [facility] Hemoglobin (Bld) [Mass/Vol] 13.8 g/dL 12.0 - 16.0 g/dL [facility] IMMATURE GRANULOCYTES ABS AUTO 0.02 [facility] Immature granulocytes/100 WBC (Bld) 0.3 % 0.0 - 0.5 % [facility] LYMPHOCYTES ABSOLUTE AUTO 2.5 [facility] Lymphocytes/100 WBC (Bld) 31.1 % 20.5 - 60.0 % [facility] MCH (RBC) [Entitic mass] 27.7 pg 26.7 - 34.0 pg [facility] MCHC (RBC) [Mass/Vol] 32.9 g/dL 29.9 - 35.2 g/dL [facility] MCV (RBC) [Entitic vol] 84 fL 81.0 - 99.0 fL [facility] MONOCYTES ABSOLUTE [facility]O 0.5 [facility] Monocytes/100 WBC (Bld) 6.6 % 1.7 - 12.0 % [facility] NEUTROPHILS ABSOLUTE AUTO 4.6 [facility] Neutrophils/100 WBC (Bld) 57.7 % 43.0 - 75.0 % [facility] Platelet mean volume (Bld) [Entitic vol] 9.6 fL 9.5 - 13.5 fL [facility] EO # 0.3 [facility] PLT 429 [facility] RBC 4.99 [facility] TB WBC [...] She can be sleepy during the day. [place] Sleepiness Scale score: 12. She is sleepy [...] by: CARLOS GALE Date: 2021-12-21 07:15 Normal [facility] CT TEMPORAL BONES WO CONon [...] foramen are normal. Visualized paranasal sinuses clear. Clinic Nurse spaces normal. Orbital contents unremarkable. Posterior fossa structures normal. IMPRESSION: Normal CT of the temporal bones. Electronically authenticated by: LOUIS BRAY Date: 2021-12-21 16:11 Normal [facility] Comprehensive Metabolic Empo n 05-10-2021 Albumin [Mass/Vol] 4.1 g/dL Normal 3.2-5.5 [facility] Comment on above: Performed By: #### E BS LIPID, EBS A1C, EBS CMP #### [facility] [address] [place] [id number] [place] Albumin/Globulin [Mass ratio] 1.3 {ratio} Normal [facility] Comment on above: Performed By: #### E BS LIPID, EBS A1C, EBS CMP #### [facility] [address] [place] [address] [place] ALP [Catalytic activity/Vol] 77 U/L Normal 32-92 [facility] Comment on above: Performed By: #### E BS LIPID, EBS A1C, EBS CMP #### [facility] [address] [place] [address] [place] ALT [Catalytic activity/Vol] 19 U/L Normal 10-60 [facility] Comment on above: Performed By: #### E BS LIPID, EBS A1C, EBS CMP #### [facility] [address] [place] [address] [place] AST [Catalytic activity/Vol] 18 U/L Normal 10-42 [facility] Comment on above: Performed By: #### E BS LIPID, EBS A1C, EBS CMP #### [facility] [address] [place] [address] [place] Bilirubin [Mass/Vol] 0.3 mg/dL Normal 0.3-1.2 [facility] Comment on above: Performed By: #### E BS LIPID, EBS A1C, EBS CMP #### [facility] [address] [place] [address] [place] Calcium [Mass/Vol] 9.2 mg/dL Normal 8.2-10.2 [facility] Comment on above: Performed By: #### E BS LIPID, EBS A1C, EBS CMP #### [facility] [address] Chloride [Moles/Vol] 104 mmol/L Normal 95-114 [facility] Comment on above: Performed By: #### E BS LIPID, EBS A1C, EBS CMP #### [facility] [address] CO2 [Moles/Vol] 24.1 mmol/L Normal 22.0-30.0 [facility] Comment on above: Performed By: #### E BS LIPID, EBS A1C, EBS CMP #### [address] Creatinine [Mass/Vol] 0.69 mg/dL Normal 0.44-1.03 [facility] Comment on above: Performed By: #### E BS LIPID, EBS A1C, EBS CMP #### [address] Estimated GFR ( Liz > 60 [facility] Comment on above: Result Comment: GFR estimated reference range: According to KDOQI guidelines, <60 ml/min/1.73m2 is sufficient to diagnose a patient with chronic kidney disease. Performed By: #### E BS LIPID, EBS A1C, EBS CMP #### [address] Estimated GFR (Non- Am > 60 [facility] Comment on above: Performed By: #### E BS LIPID, EBS A1C, EBS CMP #### [address] Globulin (S) [Mass/Vol] 3.1 g/dL [facility] Comment on above: Performed By: #### E BS LIPID, EBS A1C, EBS CMP #### [facility] [address] [place] [address] Glucose [Mass/Vol] 106 mg/dL High 70-100 [facility] Comment on above: Result Comment: ADA recommended reference range Performed By: #### E BS LIPID, EBS A1C, EBS CMP #### [address] Potassium [Moles/Vol] 4.0 mmol/L Normal 3.5-5.1 [facility] Comment on above: Performed By: #### E BS LIPID, EBS A1C, EBS CMP #### [facility] [address] Protein [Mass/Vol] 7.2 g/dL Normal 6.1-7.9 [facility] Comment on above: Performed By: #### E BS LIPID, EBS A1C, EBS CMP #### [facility] [address] Sodium [Moles/Vol] 137 mmol/L Normal 136-146 [facility] Comment on above: Performed By: #### E BS LIPID, EBS A1C, EBS CMP #### [facility] [address] Urea nitrogen [Mass/Vol] 10 mg/dL Normal 9-23 [facility] Comment on above: Performed By: #### E BS LIPID, EBS A1C, EBS CMP #### [facility] [address] EBS A1C with Estimated Ave Primo saezkleber 05-10-2021 Glucose [Mass/Vol] 111 mg/dL Normal [facility] Comment on above: Result Comment: PERF ORMED BY: [place] [address] PATHOLOGIST SEWER BRICKLAYER JERRY RAMSEY M.D. Performed By: #### E BS LIPID, EBS A1C, EBS CMP #### [facility] [address] HbA1c (Bld) [Mass fraction] 5.5 % Normal 4.3-5.6 [facility] Comment on above: Result Comment: Incr eased risk for diabetes: 5.7 - 6.4 diabetes: >6.4 glycemic control for adults with diabetes: <7.0 Performed By: #### E BS LIPID, EBS A1C, EBS CMP #### [facility] [address] Lipid Profileon 05-10-2021 Cholesterol [Mass/Vol] 202 mg/dL High 140-200 [facility] Comment on above: Result Comment: Chol less than 200 mg/dl low risk Chol 201-239 mg/dl borderline risk Chol 240 mg/dl and greater high risk Performed By: #### E BS LIPID, EBS A1C, EBS CMP #### [facility] [address] [place] [address] [place] Cholesterol in HDL [Mass/Vol] 37 mg/dL Normal 35-85 [facility] Comment on above: Result Comment: HDL CHOL ATP-III CLASSIFICATION Cardiovascular Risk HDL > or equal to 60 mg/dL LOW HDL < 40 mg/dL HIGH Performed By: #### E BS LIPID, EBS A1C, EBS CMP #### [facility] [address] Cholesterol.total/Cho lesterol in HDL [Mass ratio] 5.5 {ratio} Normal <5.0 [facility] Comment on above: Result Comment: PERF ORMED BY: [place] [address] PATHOLOGIST SEWER BRICKLAYER JERRY RAMSEY M.D. Performed By: #### E BS LIPID, EBS A1C, EBS CMP #### [facility] [address] LDL Cholesterol,Calculate d 125 mg/dL High 0-100 [facility] Comment on above: Result Comment: LDL ATP III CLASSIFICATION LDL less than 100 mg/dL Optimal LDL 100-129 mg/dL Near or above optimal LDL 130-159 mg/dL Borderline high LDL 160-189 mg/dL High LDL greater than 189 mg/dL Very high Performed By: #### E BS LIPID, EBS A1C, EBS CMP #### [facility] [address] [place] [address] [place] Triglyceride w/Reflex 199 mg/dL High 35-149 [facility] Comment on above: Result Comment: TRIG ATP III CLASSIFICATION TRIG less than 150 mg/dL Normal TRIG 150-199 mg/dL Borderline high TRIG 200-500 mg/dL High TRIG greater than 500 mg/dL Very high Standard traceable to the Center for Disease Conrtrol and Prevention (CDC) test method. Performed By: #### E BS LIPID, EBS A1C, EBS CMP #### [facility] [address] [place] [id number] [facility] VLDL CHOLESTEROL 39 mg/dL Normal [facility] Comment on above: Performed By: #### E BS LIPID, EBS A1C, EBS CMP #### [facility] [address] [place] [id number] [facility] Vital Signs Date Time Vital Sign Value Performing Clinician Ronaldo coello 12-30-2024 09:40-0400 Body mass index (BMI) [Ratio] 40.39 kg/m2 Maureen SINGLETON Work Phone: [facility] 12-30-2024 09:40-0400 Body weight 135.08 kg Maureen Feliz PA Work Phone: [facility] 12-30-2024 09:40-0400 Diastolic blood pressure 86 mm[Hg] Maureen Feliz PA Work Phone: [facility] 12-30-2024 09:40-0400 Systolic blood pressure 118 mm[Hg] Maureen Feliz PA Work Phone: [facility] 12-23-2024 11:38-0400 Body mass index (BMI) [Ratio] 40.01 kg/m2 Miguel Riddhi DO Work Phone: [facility] 12-23-2024 11:38-0400 Body weight 133.81 kg Miguel Riddhi DO Work Phone: [facility] 12-23-2024 11:38-0400 Diastolic blood pressure 70 mm[Hg] Miguel Riddhi DO Work Phone: [facility] 12-23-2024 11:38-0400 Systolic blood pressure 120 mm[Hg] Miguel Riddhi DO Work Phone: [facility] 12-16-2024 13:08-0400 Body mass index (BMI) [Ratio] 39.98 kg/m2 Maureen Feliz PA Work Phone: [facility] 12-16-2024 13:08-0400 Body weight 133.72 kg Maureen Feliz PA Work Phone: [facility] 12-16-2024 13:08-0400 Diastolic blood pressure 70 mm[Hg] Maureen SINGLETON Work Phone: [facility] 12-16-2024 13:08-0400 Systolic blood pressure 120 mm[Hg] Maureen SINGLETON Work Phone: [facility] 12-02-2024 08:57-0400 Body mass index (BMI) [Ratio] 39.3 kg/m2 Miguel Riddhi DO Work Phone: [facility] 12-02-2024 08:57-0400 Body weight 131.45 kg Miguel Riddhi DO Work Phone: [facility] 12-02-2024 08:57-0400 Diastolic blood pressure 76 mm[Hg] Miguel Riddhi DO Work Phone: [facility] 12-02-2024 08:57-0400 Systolic blood pressure 114 mm[Hg] Miguel Riddhi DO Work Phone: [facility] 11-28-2024 11:44-0400 Body height 182.9 cm Saul Granados MD Work Phone: [facility] 11-28-2024 11:44-0400 Body mass index (BMI) [Ratio] 38.9 kg/m2 Saul Granados MD Work Phone: [facility] 11-28-2024 11:44-0400 Body weight 130.09 kg Saul Granados MD Work Phone: [facility] 11-28-2024 11:44-0400 Diastolic blood pressure 60 mm[Hg] Saul Granados MD Work Phone: [facility] 11-28-2024 11:44-0400 Heart rate 96 /min Saul Granados MD Work Phone: [facility] 11-28-2024 11:44-0400 Systolic blood pressure 114 mm[Hg] Saul Granados MD Work Phone: [facility] 11-18-2024 09:04-0400 Body mass index (BMI) [Ratio] 38.52 kg/m2 Miguel Riddhi DO Work Phone: [facility] 11-18-2024 09:04-0400 Body weight 128.82 kg Miguel Riddhi DO Work Phone: [facility] 11-18-2024 09:04-0400 Diastolic blood pressure 70 mm[Hg] Miguel Riddhi DO Work Phone: [facility] 11-18-2024 09:04-0400 Systolic blood pressure 112 mm[Hg] Migeul Riddhi DO Work Phone: [facility] 11-03-2024 15:07-0400 Body mass index (BMI) [Ratio] 38.63 kg/m2 Miguel Riddhi DO Work Phone: [facility] 11-03-2024 15:07-0400 Body weight 129.18 kg Miguel Riddhi DO Work Phone: [facility] 11-03-2024 15:07-0400 Diastolic blood pressure 74 mm[Hg] Miguel Riddhi DO Work Phone: [facility] 11-03-2024 15:07-0400 Systolic blood pressure 110 mm[Hg] Miguel Riddhi DO Work Phone: [facility] 10-21-2024 08:41-0400 Body mass index (BMI) [Ratio] 38.44 kg/m2 Maureen SINGLETON Work Phone: [facility] 10-21-2024 08:41-0400 Body weight 128.55 kg Maureen SINGLETON Work Phone: [facility] 10-21-2024 08:41-0400 Diastolic blood pressure 78 mm[Hg] Maureen SINGLETON Work Phone: [facility] 10-21-2024 08:41-0400 Systolic blood pressure 124 mm[Hg] Maureen SINGLETON Work Phone: [facility] 09-16-2024 09:49-0400 Body mass index (BMI) [Ratio] 37.57 kg/m2 Miguel Riddhi DO Work Phone: [facility] 09-16-2024 09:49-0400 Body weight 125.65 kg Miguel Riddhi DO Work Phone: [facility] 09-16-2024 09:49-0400 Diastolic blood pressure 76 mm[Hg] Miguel Riddhi DO Work Phone: [facility] 09-16-2024 09:49-0400 Systolic blood pressure 126 mm[Hg] Miguel Riddhi DO Work Phone: [facility] 08-19-2024 14:52-0400 Body mass index (BMI) [Ratio] 37.57 kg/m2 Maureen Paula PA Work Phone: [facility] 08-19-2024 14:52-0400 Body weight 125.65 kg Maureen Paula PA Work Phone: [facility] 08-19-2024 14:52-0400 Diastolic blood pressure 78 mm[Hg] Maureen Paula PA Work Phone: [facility] 08-19-2024 14:52-0400 Systolic blood pressure 128 mm[Hg] Maureen Paula PA Work Phone: [facility] 07-22-2024 09:47-0400 Body mass index (BMI) [Ratio] 37.3 kg/m2 Miguel Riddhi DO Work Phone: [facility] 07-22-2024 09:47-0400 Body weight 124.74 kg Miguel Riddhi DO Work Phone: [facility] 07-22-2024 09:47-0400 Diastolic blood pressure 86 mm[Hg] Miguel Riddhi DO Work Phone: [facility] 07-22-2024 09:47-0400 Systolic blood pressure 130 mm[Hg] Miguel Riddhi DO Work Phone: [facility] 02-19-2024 14:07-0500 Body mass index (BMI) [Ratio] 37.95 kg/m2 Maureen Paula PA Work Phone: [facility] 02-19-2024 14:07-0500 Body weight 126.92 kg Maureen Carrabelle PA Work Phone: [facility] 02-19-2024 14:07-0500 Diastolic blood pressure 74 mm[Hg] Maureen SINGLETON Work Phone: [facility] 02-19-2024 14:07-0500 Systolic blood pressure 114 mm[Hg] Maureen SINGLETON Work Phone: [facility] 01-16-2024 16:38-0400 Body height 182.9 cm Miguel Riddhi DO Work Phone: [facility] 01-16-2024 16:38-0400 Body mass index (BMI) [Ratio] 37.57 kg/m2 Miguel Riddhi DO Work Phone: [facility] 01-16-2024 16:38-0400 Body weight 125.65 kg Miguel Riddhi DO Work Phone: [facility] 01-16-2024 16:38-0400 Diastolic blood pressure 80 mm[Hg] Miguel Riddhi DO Work Phone: [facility] 01-16-2024 16:38-0400 Systolic blood pressure 124 mm[Hg] Miguel Riddhi DO Work Phone: [facility] 12-25-2023 10:12-0400 Body height 182.9 cm Miguel Riddhi DO Work Phone: [facility] 12-25-2023 10:12-0400 Body mass index (BMI) [Ratio] 37.57 kg/m2 Miguel Riddhi DO Work Phone: [facility] 12-25-2023 10:12-0400 Body weight 125.65 kg Miguel Riddhi DO Work Phone: [facility] 12-25-2023 10:12-0400 Diastolic blood pressure 84 mm[Hg] Miguel Riddhi DO Work Phone: [facility] 12-25-2023 10:12-0400 Systolic blood pressure 122 [...] Comment on above: Third trimester preg shayla ([facility]); 37 weeks gestation of ([facility]) Start: 12-30-2024 End: 12-30-2024 Orders Only Saul Granados MD Work Phone: [facility] Start: 12-26-2024 End: 12-26-2024 Clinisync Result Encounter Miguel Riddhi DO Work Phone: [facility] External [facility] Unsolicited Start: 12-26-2024 End: 12-26-2024 Clinisync Result Encounter Miguel Riddhi DO Work Phone: [facility] External Department Unsolicited Start: 12-25-2024 End: 12-25-2024 Office outpatient visit 25 minutes Magnus Thomason 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-GLUE MACHINE OPERATOR Work Phone: [facility] Comment on above: Insulin controlled g estational diabetes mellitus (GDM) in third trimester (Primary Dx) Start: 12-25-2024 End: 12-25-2024 ambulatory MAGNUS THOMASON [facility] Start: 2024 ambulatory VIRAL ALLRED [facility] Start: 12-23-2024 End: 12-23-2024 Bamboo flowsheet Miguel Riddhi DO Work Phone: [facility] Start: 12-23-2024 End: 12-23-2024 Bamboo flowsheet Miguel Riddhi DO Work Phone: [facility] Start: 12-23-2024 End: 12-23-2024 flow sheet Miguel Lopezzio DO Work Phone: [facility] Comment on above: 36 weeks gestation o f ([facility]); Third trimester ([facility]); Gestational diabetes mellitus (GDM), antepartum, gestational diabetes method of control unspecified ([facility]) Start: 12-23-2024 End: 12-23-2024 ambulatory MIGUEL LOPEZZIO Not Available Start: 12-19-2024 End: 12-19-2024 Clinisync Result Encounter Miguel Riddhi DO Work Phone: [facility] External Department Unsolicited Start: 12-19-2024 End: 12-19-2024 Clinisync Result Encounter Miguel Riddhi DO Work Phone: [facility] External Department Unsolicited Start: 12-18-2024 End: 12-18-2024 Telephone encounter Tessie Carranza RN [facility] Start: 12-18-2024 End: 12-18-2024 ambulatory [facility] Start: 12-16-2024 End: 12-16-2024 Bamboo flowsheet Maureen SINGLETON Work Phone: [facility] Start: 12-16-2024 End: 12-16-2024 Bamboo flowsheet Maureen SINGLETON Work Phone: [facility] Start: 12-16-2024 End: 12-16-2024 flow sheet Maureen SINGLETON Work Phone: [facility] Comment on above: 35 weeks gestation o f ([facility]); Third trimester ([facility]); Gestational diabetes mellitus (GDM), antepartum, gestational diabetes method of control unspecified ([facility]) Start: 12-16-2024 End: 12-16-2024 ambulatory MAUREEN FELIZ Not Available Start: 12-12-2024 End: 12-12-2024 Clinisync Result Encounter Miguel Riddhi DO Work Phone: [facility] External Department Unsolicited Start: 12-12-2024 End: 12-12-2024 Clinisync Result Encounter Miguel Riddhi DO Work Phone: [facility] External Department Unsolicited Start: 12-11-2024 End: 12-11-2024 [facility] Start: 12-09-2024 End: 12-09-2024 Orders Only Mary Scanlon PAJacques Work Phone: [facility] Start: 12-06-2024 End: 12-06-2024 Clinisync Result Encounter Miguel Riddhi DO Work Phone: [facility] External Department Unsolicited Start: 12-06-2024 End: 12-06-2024 Clinisync Result Encounter Miguel Riddhi DO Work Phone: [facility] External Department Unsolicited Start: 12-03-2024 End: 12-03-2024 Orders Only Magnus Thomason APRN-GRANT Work Phone: [facility] Start: 12-02-2024 End: 12-02-2024 Bamboo flowsheet Miguel Riddhi DO Work Phone: [facility] Start: 12-02-2024 End: 12-02-2024 Bamboo flowsheet Miguel Riddhi DO Work Phone: [facility] Start: 12-02-2024 End: 12-02-2024 flow sheet Miguel Riddhi DO Work Phone: [facility] Comment on above: Third trimester preg shayla ([facility]); 33 weeks gestation of ([facility]); Gestational diabetes mellitus (GDM), antepartum, gestational diabetes method of control unspecified ([facility]) Start: 12-02-2024 End: 12-02-2024 ambulatory MIGUEL RIDDHI Not Available Start: 11-28-2024 End: 11-28-2024 Office outpatient new 45 minutes Saul Granados MD Work Phone: [facility] Comment on above: Insulin controlled g estational diabetes mellitus (GDM) in third trimester (Primary Dx); Prediabetes in mother during ; Family history of type 2 diabetes mellitus; Obesity affecting , antepartum, unspecified obesity type; 32 weeks gestation of Start: 11-28-2024 End: 11-28-2024 ambulatory [facility] Start: 11-27-2024 End: 11-27-2024 Clinisync Result Encounter Miguel Riddhi DO Work Phone: [facility] External Department Unsolicited Start: 11-27-2024 End: 11-27-2024 Clinisync Result Encounter Miguel Riddhi DO Work Phone: [facility] External Department Unsolicited Start: 11-26-2024 End: 11-26-2024 Documentation procedure Yojana Diehl RN [facility] Start: 11-26-2024 End: 11-26-2024 Telephone encounter Yojana Diehl RN [facility] Start: 11-25-2024 End: 11-25-2024 Telephone encounter Naomie LUQUE Work Phone: [facility] Start: 11-24-2024 End: 11-24-2024 Chart abstracting Scanning Provider External [facility] Start: 11-20-2024 End: 11-20-2024 ambulatory MIGUEL R [facility] Start: 11-18-2024 End: 11-18-2024 Bamboo flowsheet Miguel Riddhi DO Work Phone: [facility] Start: 11-18-2024 End: 11-18-2024 Bamboo flowsheet Miguel Riddhi DO Work Phone: [facility] Start: 11-18-2024 End: 11-18-2024 ambulatory MIGUEL RIDDHI Not Available Start: 11-18-2024 End: 11-18-2024 flow sheet Miguel Riddhi DO Work Phone: [facility] Comment on above: Third trimester preg shayla ([facility]); 31 weeks gestation of ([facility]); Gestational diabetes mellitus (GDM), antepartum, gestational diabetes method of control unspecified ([facility]) Start: 11-14-2024 End: 11-14-2024 Clinisync Result Encounter Miguel Riddhi DO Work Phone: [facility] External [facility] Unsolicited Start: 11-14-2024 End: 11-14-2024 Clinisync Result Encounter Miguel Riddhi DO Work Phone: [facility] External Department Unsolicited Start: 11-13-2024 End: 11-13-2024 Chart abstracting Generic External Data Provider [facility] Start: 11-12-2024 ambulatory [facility] Start: 11-10-2024 End: 11-10-2024 Clinisync Result Encounter Miguel Riddhi DO Work Phone: [facility] External Department Unsolicited Start: 11-10-2024 End: 11-10-2024 Clinisync Result Encounter Miguel Riddhi DO Work Phone: [facility] External Department Unsolicited Start: 11-03-2024 End: 11-03-2024 flow sheet Miguel Riddhi DO Work Phone: [facility] Comment on above: 29 weeks gestation o f ([facility]); Third trimester ([facility]) Start: 11-03-2024 End: 11-03-2024 ambulatory MIGUEL RIDDHI Not Available Start: 11-03-2024 End: 11-03-2024 Bamboo flowsheet Miguel Riddhi DO Work Phone: [facility] Start: 11-03-2024 End: 11-03-2024 Bamboo flowsheet Miguel Riddhi DO Work Phone: [facility] Start: 10-31-2024 End: 10-31-2024 Clinisync Result Encounter Maureen SINGLETON Work Phone: [facility] External Department Unsolicited Start: 10-31-2024 End: 10-31-2024 Clinisync Result Encounter Maureen SINGLETON Work Phone: [facility] External Department Unsolicited Start: 10-21-2024 End: 10-21-2024 Bamboo flowsheet Maureen SINGLETON Work Phone: [facility] Start: 10-21-2024 End: 10-21-2024 Bamboo flowsheet Maureen SINGLETON Work Phone: [facility] Start: 10-21-2024 End: 10-21-2024 ambulatory [facility] Start: 10-21-2024 End: 10-21-2024 flow sheet Maureen SINGLETON Work Phone: [facility] Comment on above: Size of fetus incons istent with dates in second trimester ([facility]) (Primary Dx); Second trimester ([facility]); 27 weeks gestation of ([facility]) Start: 10-21-2024 End: 10-21-2024 ambulatory MAUREEN FELIZ Not Available Start: 09-16-2024 End: 09-16-2024 ambulatory MIGUEL RIDDHI Not Available Start: 09-16-2024 End: 09-16-2024 flow sheet Miguel Riddhi DO Work Phone: [facility] Comment on above: Second trimester pre gnancy; 22 weeks gestation of ; Elevated glucose tolerance test Start: 09-16-2024 End: 09-16-2024 ambulatory MIGUEL RIDDHI Not Available Start: 09-02-2024 ambulatory [facility] Start: 08-23-2024 End: 08-23-2024 Clinisync Result Encounter Maureen SINGLETON Work Phone: [facility] External Department Unsolicited Start: 08-23-2024 End: 08-23-2024 [...] [facility] External [facility] Unsolicited Start: 06-26-2024 ambulatory [facility] Start: 06-19-2024 End: 06-19-2024 ambulatory MIGUEL RIDDHI Not Available Start: 05-21-2024 ambulatory [facility] Start: 05-20-2024 End: 05-20-2024 Clinisync Result [...] [facility] External Department Unsolicited Start: 04-21-2024 ambulatory [facility] Start: 04-14-2024 ambulatory [facility] Start: 03-07-2024 [facility] Start: 02-25-2024 ambulatory [facility] Start: 02-19-2024 End: 02-19-2024 Bamboo flowsheet [...] Not Available Start: 02-14-2024 ambulatory MARIANA TRENT [facility] Start: 02-08-2024 End: 02-08-2024 Clinisync Result [...] External Department Unsolicited Start: [facility]-16-[facility] Start: 01-16-2024 End: 01-16-2024 Office outpatient visit [...] 12-12-2022 End: 12-15-2022 ambulatory [facility] Start: 06-19-2022 End: 06-20-2022 ambulatory Isabella Raygoza APRN-GLUE MACHINE OPERATOR Facility:[facility] Start: 05-30-2022 End: 05-31-2022 ambulatory Adebayo Latham DO Facility:[facility] Start: 05-16-2022 End: 05-17-2022 ambulatory Isabella Raygoza APRN-GLUE MACHINE OPERATOR Facility:[facility] Start: 12-20-2021 End: 12-21-[address] ADEBAYO SOLARES Facility:[facility] Start: 11-15-2021 End: 11-16-[address] ADEBAYO SOLARES Facility:[facility] Procedures Date Procedure Procedure Detail Performing Clinician Start: 12-30-2024 Urnls dip stick/tabl et rgnt non-auto w/o micrscp Maureen SINGLETON Work Phone: Start: 12-26-2024 US OB BPP W NON-STRESS Miguel Riddhi [...] Td Vaccines (7 - Td or Tdap) [facility] Start: 12-12-2028 Screening for malign ant neoplasm of cervix [facility] Start: 12-12-2026 Screening for malign ant neoplasm of cervix Pap Smear [facility] Start: 11-28-2025 Adult BMI Screening Adult BMI Screen ing [facility] Start: 11-28-2025 Tobacco Screening Tobacco Screening [facility] Start: 01-06-2025 End: 01-06-2025 Patient encounter procedure 01/06/2025 9:10 AM EDT Routine JSOY HERNANDEZ [address] [place] [address] Miguel Hannon, DO [address] [place] [address] JOSY HERNANDEZ Start: 12-30-2024 End: 12-30-2024 Patient encounter procedure JOSY [facility] MARY Comment on above: Arrived Start: 12-25-2024 End: 12-25-2024 Telemedicine consultation with patient 12/25/2024 3:00 PM EDT Telemedicine [facility] [address] [place] [phone] Magnus Thomason, FLOOR SANDER-GLUE MACHINE OPERATOR [address] [facility] [place] [address] [facility] Start: 12-23-2024 End: 12-23-2025 CULTURE, GROUP B STREP WITH SUSCEPTIBLITY CULTURE, GROUP B STREP WITH SUSCEPTIBLITY Lab Routine Third trimester ([facility]) Expected: 12/23/2024, Expires: 12/23/2025 [facility] Work Phone: Comment on above: Expected: 12/23/2024 , Expires: 12/23/2025 Start: 12-23-2024 End: 12-23-2024 Patient encounter procedure JOSY [facility] HERNANDEZ Comment on above: Arrived Start: 12-18-2024 End: 12-18-2024 Telemedicine consultation with patient 12/18/2024 8:00 AM EDT Telemedicine [facility] [address] [facility] [place] [phone] Magnus Thomason, FLOOR SANDER-GLUE MACHINE OPERATOR [address] [place] [address] [facility] Start: 12-16-2024 End: 12-16-2024 Patient encounter procedure JOSY [facility] MARY Comment on above: Arrived Start: 12-15-2024 Influenza vaccination N [facility] Start: 12-11-2024 End: 12-11-2024 Patient encounter procedure 12/11/2024 1:00 PM EDT Appointment [facility] [place] [address] [facility] [address] [place] [address] [facility] [place] Start: 12-02-2024 End: 12-02-2024 Patient encounter procedure JOSY HERNANDEZ Comment on above: Arrived Start: 11-20-2024 End: 11-20-2024 Telemedicine consultation with patient 11/20/2024 10:30 AM EDT Telemedicine [facility] [address] [place] [place] [phone] Miroslava Trinidad, RN [address] [facility] [place] [address] Juli Quezada LD Karl, Deborah, LD [address] [place] [place] [address] [facility] Start: 11-18-2024 End: 05-21-2025 US biophysical profile w non stress test US biophysical profile w non stress test Imaging Routine Gestational diabetes mellitus (GDM), antepartum, gestational diabetes method of control unspecified ([facility]) Expected: 11/18/2024 (Approximate), Expires: 05/21/2025 [facility] Work Phone: Comment on above: Expected: 11/18/2024 (Approximate), Expires: 05/21/2025 Start: 11-18-2024 End: 11-18-2024 Patient encounter procedure 11/18/2024 8:50 AM EDT Routine [facility] [address] [place] [phone] Miguel Hannon DO [address] [place] [address] [facility] Start: 11-03-2024 End: 11-03-2024 Patient encounter procedure [facility] Comment on above: Arrived Start: 11-03-2024 End: 11-03-2024 Professional / ancillary services management 11/03/2024 2:00 PM EDT Ancillary Procedure [facility] [address] [place] [address] [facility] Start: 10-21-2024 End: 02-21-2025 US for US OB follow up transabdominal approach Imaging Routine Size of fetus inconsistent with dates in second trimester ([facility]) Expected: 10/21/2024, Expires: 02/21/2025 [facility] Work Phone: Comment on above: Expected: 10/21/2024 , Expires: 02/21/2025 Start: 10-21-2024 End: 10-21-2024 Patient encounter procedure [facility] Comment on above: Arrived Start: 09-16-2024 End: 09-16-2025 Measurement of glucose 3 hours after glucose challenge for glucose tolerance test Glucose tolerance, 3 hours Lab Routine Elevated glucose tolerance test Expected: 09/16/2024 (Approximate), Expires: 09/16/2025 [facility] Work Phone: Comment on above: Expected: 09/16/2024 (Approximate), Expires: 09/16/2025 Start: 09-16-2024 End: 09-16-2024 Patient encounter procedure 09/16/2024 9:30 AM EDT Routine [facility] [address] [place] [phone] Miguel Hannon DO [address] [place] [address] [facility] Start: 09-16-2024 End: 09-16-2024 Professional / ancillary services management 09/16/2024 8:30 AM EDT Ancillary Procedure [facility] [address] [place] [phone] [facility] Start: 08-19-2024 End: 08-19-2024 Patient encounter procedure 08/19/2024 2:20 PM EDT Routine [facility] [address] [place] [phone] Maureen Feliz PA [address] [place] [address] [facility] Start: 08-19-2024 End: 09-19-2024 Alpha fetoprotein, maternal Alpha fetoprotein, maternal Lab Routine Need for maternal serum alpha-protein (MSAFP) screening Expected: 08/19/2024 (Approximate), Expires: 09/19/2024 [facility] Comment on above: Expected: 08/19/2024 (Approximate), Expires: 09/19/2024 Start: 08-19-2024 End: 08-19-2025 Measurement of glucose 3 hours after glucose challenge for glucose tolerance test Glucose tolerance, 3 hours Lab Routine Elevated glucose tolerance test Expected: 08/19/2024 (Approximate), Expires: 08/19/2025 [facility] Comment on above: Expected: 08/19/2024 (Approximate), Expires: 08/19/2025 Start: 08-19-2024 End: 11-19-2024 US for US OB 14+ weeks anatomy scan Imaging Routine Screening, , for anatomic survey Expected: 08/19/2024, Expires: 11/19/2024 [facility] Comment on above: Expected: 08/19/2024 , Expires: 11/19/2024 Start: 07-22-2024 End: 07-22-2025 Measurement of glucose 1 hour after glucose challenge for glucose tolerance test Glucose tolerance, 1 hour Lab Routine Diabetes mellitus screening Expected: 07/22/2024 (Approximate), Expires: 07/22/2025 [facility] Work Phone: Comment on above: Expected: 07/22/2024 (Approximate), Expires: 07/22/2025 Start: 07-22-2024 End: 07-22-2024 Patient encounter procedure [facility] Comment on above: Arrived Start: 06-19-2024 End: 06-19-2024 ambulatory 06/19/2024 2:30 PM EST Initial [facility] [address] [facility] [place] [phone] [facility] Start: 06-19-2024 End: 06-19-2024 Professional / ancillary services management 06/19/2024 2:00 PM EST Ancillary Procedure [facility] [address] [phone] [facility] Start: 02-19-2024 End: 02-19-2024 Patient encounter procedure 02/19/2024 1:40 PM EST Office Visit [facility] [address] [place] [phone] Maureen Feliz PA [address] [place] [address] Arrived [facility] Comment on above: Arrived Start: 01-16-2024 End: 01-16-2024 Patient encounter procedure 01/16/2024 4:00 PM EDT Consult [facility] [address] [place] [phone] Miguel Hannon DO [address] [facility] [place] [address] Arrived [facility] Comment on above: Arrived Start: 12-25-2023 End: 2024 Antimullerian hormone (AMH) Antimullerian hormone (AMH) Lab Routine Female infertility PCOS (polycystic ovarian syndrome) Dysfunctional uterine bleeding Expected: 12/25/2023 (Approximate), Expires: 2024 [facility] Comment on above: Expected: 12/25/2023 (Approximate), Expires: 2024 Start: 12-25-2023 End: 2024 DHEA DHEA Lab Routine PCOS (polycystic ovarian syndrome) Expected: 12/25/2023 (Approximate), Expires: 2024 [facility] Comment on above: Expected: 12/25/2023 (Approximate), Expires: 2024 Start: 12-25-2023 End: 12-25-2023 Patient encounter procedure [facility] Comment on above: Arrived Start: 12-16-2023 Influenza vaccination Influenza Vacc ine (#1) [facility] Start: 12-11-2023 End: 12-11-2023 Patient encounter procedure 12/11/2023 8:00 AM EDT Procedure Visit [facility] EXT DEP Aristides Araiza DO [address] [place] [phone] [facility] Start: 05-17-2017 Screening for malign ant neoplasm of cervix [facility] Start: 12-23-2012 Screening for malign ant neoplasm of cervix Pap Smear [facility] Start: 12-23-2010 DTaP,Tdap and Td Vaccines (1 - Tdap) DTaP,Tdap and Td Vaccines (1 - Tdap) [facility] Start: 12-23-2009 Adult BMI Follow Up Plan Adult BMI Follow Up Plan [facility] Start: 12-23-2009 Adult BMI Screening Adult BMI Screen ing [facility] Start: 2003 Depression Screening Depression Scre ening [facility] Start: 2003 Tobacco Screening Tobacco Screening [facility] CBC W Auto Different ial panel - Blood CBC and differential Lab Routine PCOS (polycystic ovarian syndrome) Ordered: 12/25/2023 [facility] Comment on above: Ordered: 12/25/2023 CBC W Auto Different ial panel - Blood CBC and differential Lab Routine 22 weeks gestation of Elevated glucose tolerance test Ordered: 09/16/2024 [facility] Comment on above: Ordered: 09/16/2024 CHLAMYDIA TRACHOMATI S (GENITO/STI) CHLAMYDIA TRACHOMATIS (GENITO/STI) Lab Routine Exposure to STD Ordered: 08/19/2024 [facility] Comment on above: Ordered: 08/19/2024 DHEA-sulfate DHEA-sulfate Lab Routine PCOS (polycystic ovarian syndrome) Ordered: 12/25/2023 [facility] Comment on above: Ordered: 12/25/2023 Follicle stimulating hormone Follicle stimulating hormone Lab Routine PCOS (polycystic ovarian syndrome) Ordered: 12/25/2023 [facility] Comment on above: Ordered: 12/25/2023 hCG, quantitative, hCG, quantitative, Lab Routine PCOS (polycystic ovarian syndrome) Ordered: 12/25/2023 [facility] Work Phone: Comment on above: Ordered: 12/25/2023 Hemoglobin A1c/Hemoglobin.total in Blood Hemoglobin A1c Lab Routine Female infertility PCOS (polycystic ovarian syndrome) Dysfunctional uterine bleeding Ordered: 12/25/2023 [facility] Comment on above: Ordered: 12/25/2023 Human papilloma viru s DNA [Presence] in Unspecified specimen by Probe with amplification HPV DNA probe, amplified Microbiology Routine Ordered: 08/19/2024 [facility] Comment on above: Ordered: 08/19/2024 Luteinizing hormone Luteinizing hormone Lab Routine PCOS (polycystic ovarian syndrome) Ordered: 12/25/2023 [facility] Comment on above: Ordered: 12/25/2023 Neisseria gonorrhoea e DNA [Presence] in Unspecified specimen by [place] with probe detection Neisseria gonorrhea DNA probe, direct Lab Routine Exposure to STD Ordered: 08/19/2024 [facility] Comment on above: Ordered: 08/19/2024 SURESWAB(R) ADVANCED VAGINITIS PLUS, TMA SURESWAB(R) ADVANCED VAGINITIS PLUS, TMA Pathology and Cytology Routine Exposure to STD Ordered: 08/19/2024 [facility] Work Phone: Comment on above: Ordered: 08/19/2024 Thyrotropin [Units/volume] in Serum or Plasma TSH Lab Routine PCOS (polycystic ovarian syndrome) Ordered: 12/25/2023 [facility] Comment on above: Ordered: 12/25/2023 Thyroxine (T4) free [Mass/volume] in Serum or Plasma T4, free Lab Routine PCOS (polycystic ovarian syndrome) Ordered: 12/25/2023 [facility] Comment on above: Ordered: 12/25/2023 Immunizations Immunization Date Immunization Notes Care Provider Eunice martinez 01-20-2024 influenza virus vacc ine, unspecified formulation Maureen SINGLETON Work Phone: [facility] 02-12-2023 influenza virus vacc ine, unspecified formulation Aristides Araiza DO Work Phone: [facility] Payers Date Payer Category Payer Unknown [id number] 2024 Blue [employer] Managed [employer] - Other [id number] 2024 Unknown [id number] 2023 Blue Cross Blue Shield [id number] 2023 Unknown [id number] 2022 Unknown 2021 Self-pay 2019 Unknown [id number] 1991 Unknown [id number] 2.16.840.1.131361.3.579.2.593 1991 Unknown [id number] 2.16.840.1.224622.3.579.2.593 1991 Unknown [id number] 2.16.840.1.902443.3.579.2.196 1991 Unknown [id number] 2.16.840.1.207920.3.579.2.196 1991 Unknown [id number] 2.16.840.1.393113.3.579.2.196 1991 Unknown [id number] 2.16.840.1.609023.3.579.2.173 1991 Unknown [id number] 2.16.840.1.842420.3.579.2.1286 1991 Unknown [id number] 2.16.840.1.989302.3.579.2.1286 1991 Unknown [id number] 2.16.840.1.770370.3.579.2.1286 1991 Unknown [id number] 2.16.840.1.102341.3.579.2.1286 1991 Unknown [id number] 2.16.840.1.902645.3.579.2.1286 1991 Unknown [id number] 2.16.840.1.969537.3.579.2.1259 1991 Unknown [id number] 2.16.840.1.283983.3.579.2.1259 1991 Unknown [id number] 2.16.840.1.933876.3.579.2.9 1991 Unknown [id number] 2.16.840.1.603173.3.579.2.1258 1991 Unknown [id number] 2.16.840.1.791692.3.579.2.1258 1991 Unknown [id number] 2.16.840.1.775425.3.579.2.1258 1991 Unknown [id number] 2.16.840.1.666142.3.579.2.1258 1991 Unknown [id number] 2.16.840.1.071461.3.579.2.1258 1991 Unknown [id number] 2.16.840.1.651934.3.579.2.1258 1991 Unknown [id number] 2.16.840.1.389248.3.579.2.1258 1991 Unknown [id number] 2.16.840.1.799081.3.579.2.1258 1991 Unknown [id number] 2.16.840.1.047598.3.579.2.1258 1991 Unknown [id number] 2.16.840.1.908082.3.579.2.1258 1991 Unknown [id number] 2.16.840.1.499214.3.579.2.1258 1991 Unknown [id number] 2.16.840.1.160054.3.579.2.1259 1959 Unknown [id number] Social History Date Type Detail Facility Start: 11-19-2023 End: 11-28-2024 Tobacco smoking status [facility] Never smoked tobacco [facility] Start: 11-19-2023 End: 11-28-2024 Tobacco use and exposure Smokeless tobacco non-user [facility] Start: 12-25-2023 End: 12-23-2024 Alcoholic beverage intake Lifetime non-drinker (finding) [facility] Start: 11-19-2023 End: 11-28-2024 History of Social function [facility] Start: 11-19-2023 End: 11-28-2024 Tobacco use panel [facility] Start: 1990 Sex assigned at Not on file [facility] Start: 04-26-2024 [facility] consumption unknown [facility] Start: 11-11-2024 Sex Female (finding) [facility] Within the past 12 months we worried whether our food would run out before we got money to buy more. Never True [facility] Start: 11-28-2024 Alcoholic beverage intake Ex-drinker (finding) [facility] Medical Equipment Procedure Code Equipment Code Equipment Origin al Text Equipment Identifier Dates 1 strip by In Vi tro route Daily Use in the morning prior to breakfast, 1 hour after each meal for a total of 4times daily. [id number] Start: 11-10-2024 End: 12-10-2024 1 each by In Vit ro route Daily Use to check FSBS four times daily [id number] Start: 11-10-2024 End: 12-10-2024 Use daily for insulin [id number] Start: 11-28-2024 Clinical Notes 06-19-2022 to 12-30-2024 Telephone Encounter - Yojana Diehl RN - 12/30/2024 5:49 PM EDTTelephone Encounter - Yojana Diehl RN - 12/30/2024 5:49 PM ARELI Delvalle - 12/30/2024 8:30 AM ARELI Delvalle - 12/16/2024 1:10 PM EDT Note Date & Type Note Facility 12-30-2024 Miscellaneous Notes Called pt to discuss her insulin change for this week. Dr Granados reviewed her blood sugars on her dexcom and would like her to increase her lantus in the evening to 32 units. Pt verbalized understanding and will start tonight. We will pull her dexcom again next week. documented in this encounter [facility] 12-30-2024 Telephone encounter Note Called pt to discuss her insulin change for this week. Dr Granados reviewed her blood sugars on her dexcom and would like her to increase her lantus in the evening to 32 units. Pt verbalized understanding and will start tonight. We will pull her dexcom again next week. T [facility] 12-30-2024 History of Present illness Narrative Reason [...] mg, Daily RT Blood Glucose Monitoring Suppl ([employer] Glucometer) w/Device kit 1 kit, Does not [...] ASSESSMENT & PLAN ICD-10-CM 1. Third trimester ([facility]) Z34.93 POCT urinalysis dipstick manually resulted 2. 37 weeks gestation of ([facility]) Z3A.37 Return OB: Patient presents today for [...] of: ARELI Espinoza documented in this encounter [facility] 12-25-2024 History of Present illness Narrative REASON FOR OFFICE VISIT: Video Visit via Real-time Synchronous Audiovisual Provider Location: [facility]- MEDICINE AT [address] [id number] Patient Location: Patient's home Video Visit Consent [...] that there are some limitations compared to [id number] evaluations. The patient consented to the presence of additional virtual and/or in-person participants. We elected to proceed. 1. GDMA2, A1c 5.7% 2. BMI 38.9 3. 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 at 36w5d due on Estimated Date of Delivery: 01/17/25. Currently the patient has no complaints. The patient denies JOE, nausea, vomiting, abdominal pain, vaginal bleeding, contractions, leaking fluid or chest pain. +. She is being followed at [facility] due to GDMA2. States she is following [...] TOTALT4 , THYROIDAB No results found for: [id number] No results found for: CREATININE , BUN [...] Consider planned delivery as previously indicated by [facility] MD consult not or before if indicated [...] and counseling, coordination of care which was [id number], review of records and communication back to referring provider. JOE Mathur 12/25/24 1534 documented in this encounter [facility] 12-23-2024 History of Present illness Narrative [...] Grandfather James Alcaraz Hypertension Maternal Grandmother Sandy Alcraaz Diabetes Paternal Grandfather Rito Lara Kidney disease [...] nursing note reviewed. Exam conducted with a photographer apprentice lithographic present. Vitals: Estimated body mass index is 40.01 kg/m as calculated from the following: Height as of 01/16/24: 6'. Weight as of this encounter: 295 lb. BP: 120/70 Patient's last menstrual period was 04/12/2024. ASSESSMENT & PLAN ICD-10-CM 1. 36 weeks gestation of ([facility]) Z3A.36 POCT urinalysis dipstick manually resulted 2. Third trimester ([facility]) Z34.93 POCT urinalysis dipstick manually resulted CULTURE, GROUP B STREP WITH SUSCEPTIBLITY CULTURE, GROUP B STREP WITH SUSCEPTIBLITY 3. Gestational diabetes mellitus (GDM), antepartum, gestational diabetes method of control unspecified ([facility]) O24.419 Patient is doing well but has [...] Miguel Hannon DO documented in this encounter [facility] 12-18-2024 Miscellaneous Notes RN spoke to Javid via phone. Javid is unable to connect to [employer] Video call with Magnus Thomason NP. Patient [...] Magnus Thomason NP. documented in this encounter [facility] 12-18-2024 Telephone encounter Note RN spoke to Javid via phone. Javid is unable to connect to [employer] Video call with Magnus Thomason NP. Patient [...] rescheduled to 12/25/24 with Magnus Thomason NP. T [facility] 12-16-2024 History of Present illness Narrative [...] mg, Daily RT Blood Glucose Monitoring Suppl ([employer] Glucometer) w/Device kit 1 kit, Does not [...] Father Adebayo Marco Diabetes Maternal Grandfather James Baring Hypertension Maternal Grandmother Sandy Lissa Diabetes Paternal [...] PLAN ICD-10-CM 1. 35 weeks gestation of ([facility]) Z3A.35 POCT urinalysis dipstick manually resulted 2. Third trimester ([facility]) Z34.93 POCT urinalysis dipstick manually resulted 3. Gestational diabetes mellitus (GDM), antepartum, gestational diabetes method of control unspecified ([facility]) O24.419 Return OB: Patient presents today for [...] of: ARELI Espinoza documented in this encounter [facility] 12-09-2024 Miscellaneous Notes Called pt to discuss her insulin change for this week. Mary Scanlon reviewed her blood sugars and would like her to increase her lantus in the evening to 16 units. Pt verbalized understanding, we will pull her report again next week. documented in this encounter [facility] 12-09-2024 Telephone encounter Note Called pt to discuss her insulin change for this week. Mary Scanlon reviewed her blood sugars and would like her to increase her lantus in the evening to 16 units. Pt verbalized understanding, we will pull her report again next week. [facility] 12-03-2024 Miscellaneous Notes Called patient regarding Dexcom CGM report from 11/29 to 12/01/24 and had to leave a message. RADHA Mathur, reviewed patient's report and increased her Lantus dose to 12 units each evening. Will send patient a MyChart message as well and asked patient to confirm with us via phone or [employer]casthart that she received the dose change information. documented in this encounter [facility] 12-03-2024 Telephone encounter Note Called patient regarding Dexcom CGM report from 11/29 to 12/01/24 and had to leave a message. RADHA Mathur, reviewed patient's report and increased her Lantus dose to 12 units each evening. Will send patient a MyChart message as well and asked patient to confirm with us via phone or [employer] that she received the dose change information. [facility] 12-02-2024 History of Present illness Narrative [...] mg, Daily RT Blood Glucose Monitoring Suppl ([employer] Glucometer) w/Device kit 1 kit, Does not apply, Daily, Use four times daily to check FSBS. In the morning prior to breakfast & 1 hour after each meal for a total of 4times daily. Continuous Glucose Sensor ([employer] G7 Sensor) misc 1 each, Does not [...] nursing note reviewed. Exam conducted with a photographer apprentice lithographic present. Vitals: Estimated body mass index is 39.3 kg/m as calculated from the following: Height as of 01/16/24: 6'. Weight as of this encounter: 289 lb 12.8 oz. BP: 114/76 Patient's last menstrual period was 04/12/2024. ASSESSMENT & PLAN ICD-10-CM 1. Third trimester ([facility]) Z34.93 POCT urinalysis dipstick manually resulted 2. 33 weeks gestation of ([facility]) Z3A.33 POCT urinalysis dipstick manually resulted 3. Gestational diabetes mellitus (GDM), antepartum, gestational diabetes method of control unspecified ([facility]) O24.419 Continuous Glucose Sensor (Dexcom G7 Sensor) [...] Pt to have repeat anatomy scan at [facility] on 12/11. Discussed delivery between 37-39 weeks d/t being on Lantus. Orders Placed This Encounter Procedures POCT urinalysis dipstick manually resulted Follow Up: Patient is to return to office in 2 week for routine OB appointment. Documented by Katarzyna Malagon LPN on behalf of: Miguel Hannon DO documented in this encounter [facility] 11-28-2024 History of Present illness Narrative Headache/epigastric pain/blurry vision/swelling? No Cramping/contractions? No Spotting/vaginal bleeding? No Loss or gush of fluid like your water may have broken? No Do you have cats at home? No Do you change the litter box (reason: risk of toxoplasmosis)? N/A Genetic testing done this here or other office? No Have you been seen here at [facility] in a previous ? No Recent ER visits or hospitalizations? No Bring blood sugar log or meter with you today? (Please bring them with you for every visit at [facility]) Yes, Dexcom report Flu vaccine (Feb-June)? [...] No image results found. OVERALL ASSESSMENT -Javid oPloerson is a pleasant 33 y.o. at 32w6d [...] more likely to fail compared to insulin. snf data on children whose mothers took oral [...] CGM we will be reviewed weekly by [facility]. Status post diabetic education nutrition counseling at [facility] Detailed anatomy ultrasound scheduled for 12/11/2024 in [facility] Repeat growth ultrasound at 38 weeks gestation, through primary OB Recommend weekly testing for the remainder of , through primary OB Delivery recommendations : Recommend delivery at [id number] Discuss delivery if estimated weight is >4500g [...] developing diabetes later on. 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 Patient does have ultrasound and office visit scheduled with us. Thank you for allowing me to participate in the care of Javid Prasad. If there any questions please do not hesitate to contact us. Saul Granados MD Maternal- Medicine [facility] [address] [place] [address] This document was created with [employer] technology. Though I make every effort to review the dictation as it is transcribed, on occasion the spoken word can be misinterpreted by the technology leading to inappropriate words, phrases, or sentences. This note is addressed to the requesting provider as a consultation for clinical guidance. Specific medical abbreviations are occasionally used and those are generally approved by the [place]?Board of?Obstetrics and?Gynecology?as well as?Ethan s abbreviations. The above plan of care was based solely on the diagnoses for which a consultation was requested. ?More frequent testing may be indicated based on her other medical/obstetrical conditions. The management of other or medical conditions is beyond the scope of requested consultation and will continue to be followed by the primary ship laborer or primary care provider. Note to patient: [...] of the practitioner. documented in this encounter [facility] 11-26-2024 History of Present illness Narrative [...] morning and sched. documented in this encounter [facility] 11-26-2024 Miscellaneous Notes Called pt to let her know that Magnus Thomason reviewed her dexcom and would like her to start marking her fasting time and number. If she does know what her fasting numbers are and if they are consistently over 95 then she needs an appt to start medication. She can call and make that appt at [phone] option #3. It looks as though her fastings are running above target but would like to see what the actual numbers are running. [facility]-26-[facility]24 Telephone encounter Note Called pt to let her know that Magnus Thomason reviewed her dexcom and would like her to start marking her fasting time and number. If she does know what her fasting numbers are and if they are consistently over 95 then she needs an appt to start medication. She can call and make that appt at [phone] option #3. It looks as though her fastings are running above target but would like to see what the actual numbers are running. [facility]-25-[facility] Miscellaneous Notes Called regarding food [...] meals. Asked that she call back at [phone] and let us know if she is having any consistent elevated blood sugars. [facility] Telephone encounter Note Called regarding food [...] meals. Asked that she call back at [phone] and let us know if she is having any consistent elevated blood sugars. [facility]24 History of Present illness Narrative DIABETES [...] care for you: OB Provider Family Doctor Java Sql Developer Name: Dr. Alvin Hannon Name: Dr. Karena [...] first Is there anything about your culture, oriental orthodox, or personal beliefs we need to know about to care for you: Other Tracking Primary Language spoken: [place] [22] Primary Language for learning: [place] Are you currently in a relationship where you are physically hurt, threatened or made to fee afraid? [] Yes [] No Community Pharmacist needed? [] Yes [] No Marital status/Living [...] Interpersonal Safety: Unknown (06/07/2023) Received from [facility] Fear of [...] If yes, where: On thge following scale, blackfeet the number, which describes your current level [...] weekly Educational Level Masters Family issues stable Cultural/ethnic/methodist influences demies Exercise approved by MD? Yes Current Exercise program walking 5 miles Who prepares the meal Self Who purchase food at your home? Self and S.O Equipment use for cooking/food storage Has everything Food Assistance(Ex.WIC, Food [place]) Declined Dining out Yes Twice a week Appetite/Appetite changes Flucuates, better lately Weight History Stable Do you have cats at home? Infant Feeding Plans Breast Feeding If you have cats, who cleans the litter box? Cravings/Aversions/Pica Only food aversions to meat Nutrition Assessment Worksheet: Week/Weekend Food Recall Breakfast [place] muffin with cream cheese or yogurt, water [...] time 38 minutes. documented in this encounter [facility] 11-18-2024 History of Present illness Narrative Reason [...] nursing note reviewed. Exam conducted with a photographer apprentice lithographic present. Vitals: Estimated body mass index is 38.52 kg/m as calculated from the following: Height as of 01/16/24: 6'. Weight as of this encounter: 284 lb. BP: 112/70 Patient's last menstrual period was 04/12/2024. ASSESSMENT & PLAN ICD-10-CM 1. Third trimester ([facility]) Z34.93 Urine dip 2. 31 weeks gestation of ([facility]) Z3A.31 Urine dip 3. Gestational diabetes mellitus (GDM), antepartum, gestational diabetes method of control unspecified ([facility]) O24.419 Return OB: Patient presents today for a routine obstetrics appointment. Patient is currently 31w3d . Patient states she is doing well but has complaints of being tired due to current . Patient has verbalizes frequent movement. labor precautions was discussed/given and patient was instructed to perform kick counts three times a day. Pt being sent to [facility] to complete anatomy scan. RVOT and LVOT and lips not evaluated. Pt voiced understanding. Orders Placed This Encounter Procedures Urine dip Follow Up: Patient is to return to office in 2 week for routine OB appointment. Documented by Katarzyna Malagon LPN on behalf of: Miguel Hannon DO documented in this encounter [facility] 11-03-2024 History of Present illness Narrative [...] Grandfather James Lissa Hypertension Maternal Grandmother Sandy Baring Diabetes Paternal Grandfather Rito Marco Kidney disease [...] PLAN ICD-10-CM 1. 29 weeks gestation of ([facility]) Z3A.29 POCT urinalysis dipstick manually resulted 2. Third trimester ([facility]) Z34.93 POCT urinalysis dipstick manually resulted Return [...] Miguel Hannon DO documented in this encounter [facility] 10-21-2024 Note [facility] Consult Note [...] History reviewed. No pertinent surgical history. SH: [employer] Tobacco Use: Low Risk (10/21/2024) Patient History Smoking Tobacco Use: Never Smokeless Tobacco Use: Never Passive Exposure: Not on file Alcohol Use: Not on file Financial Resource Strain: Not on file Food Insecurity: Not on file Transportation Needs: Not on file Physical Activity: Not on file Stress: Not on file Social Connections: Not on file Intimate Partner Violence: Unknown (06/07/2023) [place] Safety & Environment Fear of Current or [...] normal affect Orientation (more content not included)... [facility] 10-21-2024 History of Present illness Narrative [...] Father Adebayo Marco Diabetes Maternal Grandfather James Baring Hypertension Maternal Grandmother Sandy Lissa Diabetes Paternal [...] ASSESSMENT & PLAN ICD-10-CM 1. Second trimester ([facility]) Z34.92 POCT urinalysis dipstick manually resulted 2. 27 weeks gestation of ([facility]) Z3A.27 POCT urinalysis dipstick manually resulted Return [...] of: ARELI Espinoza documented in this encounter [facility] 09-16-2024 History of Present illness Narrative [...] nursing note reviewed. Exam conducted with a photographer apprentice lithographic present. Vitals: Estimated body mass index is [...] Miguel Hannon DO documented in this encounter [facility] 08-19-2024 History of Present illness Narrative [...] of: ARELI Espinoza documented in this encounter [facility] 07-22-2024 History of Present illness Narrative [...] nursing note reviewed. Exam conducted with a photographer apprentice lithographic present. Vitals: Estimated body mass index is [...] or undercooked meat, and stay away from [facility]. Patient has been consulted regarding any [...] Miguel Hannon DO documented in this encounter [facility] 02-19-2024 History of Present illness Narrative [...] having a D&C Hysteroscopy performed at [facility] with Dr. Hannon. Pathology results was reviewed with the patient in great detail and all restrictions have been lifted. Follow Up: Patient is to return to the office for annual exam unless needed otherwise. Documented by ARELI Espinoza on behalf of: ARELI Espinoza documented in this encounter [facility] 01-16-2024 History of Present illness Narrative Reason for Appointment: Patient ID: Javid Prasad is a 33 y.o. female who presents for Pre-op Visit Patient presents today for Pre Op appointment. Patient is scheduled to undergo D&C Hysteroscopy, possible Myosure on 02/08/[address] Hannon at [facility]. MEDICATIONS Current Outpatient Medications Medication [...] Miguel Hannon DO documented in this encounter [facility] 12-25-2023 History of Present illness Narrative [...] nursing note reviewed. Exam conducted with a photographer apprentice lithographic present. Vitals: Estimated body mass index is [...] Miguel Hannon DO documented in this encounter [facility] 06-19-2022 Note This is a Telephone [...] dreaming in association with her activity. 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 Nutrition/Health Caffeine [...] signed by Isabella Grant 06/19/22 15:39 EST [facility] Evaluation note Diagnosis Pre-op examination Uterine leiomyoma, unspecified location documented in this encounter [facility] HealthcareEvaluation note* Diagnosis Postop check Follow-up examination, following unspecified surgery documented in this encounter [facility] HealthcareEvaluation note* Diagnosis Female infertility Female infertility of unspecified origin PCOS (polycystic ovarian syndrome) Polycystic ovaries Dysfunctional uterine bleeding Other disorder of menstruation and other abnormal bleeding from female genital tract documented in this encounter [facility] HealthcareEvaluation note* Diagnosis Second trimester state, incidental 14 weeks gestation of Diabetes mellitus screening Screening for diabetes mellitus documented in this encounter [facility] HealthcareEvaluation note* Diagnosis Exposure to STD [...] diabetes method of control unspecified ([facility]) documented in this encounter [facility]* Diagnosis Gestational diabetes mellitus (GDM) in second trimester, gestational diabetes method of control unspecified documented in this encounter [facility] SystemEvaluation note* Diagnosis Insulin controlled gestational diabetes mellitus (GDM) in third trimester- Primary Prediabetes in mother during Family history of type 2 diabetes mellitus Family history of diabetes mellitus Obesity affecting , antepartum, unspecified obesity type 32 weeks gestation of documented in this encounter [facility] SystemEvaluation note* Diagnosis Third trimester (HHS-HCC) state, incidental 33 weeks gestation of ([facility]) Gestational diabetes mellitus (GDM), antepartum, gestational diabetes method of control unspecified ([facility]) documented in this encounter [facility]* Diagnosis 35 weeks gestation of (HHS-HCC) Third trimester (HHS-HCC) state, incidental Gestational diabetes mellitus (GDM), antepartum, gestational diabetes method of control unspecified ([facility]) documented in this encounter [facility]* Diagnosis 36 weeks gestation of (HHS-HCC) Third trimester (HHS-HCC) state, incidental Gestational diabetes mellitus (GDM), antepartum, gestational diabetes method of control unspecified ([facility]) documented in this encounter [facility]* Diagnosis Insulin controlled gestational diabetes mellitus (GDM) in third trimester- Primary [facility] Diagnosis Third trimester (HHS-HCC) state, incidental 37 weeks gestation of (HHS-HCC) documented in this encounter [facility] HealthcareInstructionsNot on filedocumented in this [facility] System[facility]ructionsNot on filedocumented in this encounterPro[facility] SystemInstructionsNot on filedocumented in this encounterProMedica [facility] SystemInstructionsNot on filedocumented in this encounterPro[facility] InstructionsNot on filedocumented in this encounterPro[facility] InstructionsNot on filedocumented in this encounterProMedica Health [facility] InstructionsNot on filedocumented in this encounterBr[facility] Summary Purpose Family [...] DATE CREATED AUTHOR AUTHOR'S ORGANIZ ATION 2021 [facility] DATE CREATED AUTHOR AUTHOR'S ORGANIZ ATION 06/21/2022 [facility] DATE CREATED AUTHOR AUTHOR'S ORGANIZ ATION 12/15/2022 [facility] DATE CREATED AUTHOR AUTHOR'S ORGANIZ ATION 12/13/[address] [facility] DATE CREATED AUTHOR AUTHOR'S ORGANIZ ATION 12/28/2024 [facility] DATE CREATED AUTHOR AUTHOR'S ORGANIZ ATION 12/29/2024 [facility] DATE CREATED AUTHOR AUTHOR'S ORGANIZ ATION 12/31/2024 [facility] d[facility] Specialists EPIC Care Teams (unrecognized sec tion and content) Director Of Security Relationship Specialty Start Date End Date Adebayo Solares MD [address] [place], [place] [id number] (work) PCP - General Family Medicine 11/19/23 Director Of Security Relationship Specialty Start Date End Date Adebayo Solares MD [address] [place] [address] PCP - General Family Medicine 11/19/23 Director Of Security Relationship Specialty Start Date End Date Adebayo Solares MD [address] [place], [place] [phone] (Work) PCP - General Family Medicine 11/19/23 Director Of Security Relationship Specialty Start Date End Date Adebayo Solares MD [address] [place], [place] [phone] (Work) PCP - General Family Medicine 11/19/23 Director Of Security Relationship Specialty Start Date End Date Adebayo Solares MD [address] [place], [place] [phone] (Work) PCP - General Family Medicine 11/19/23 Director Of Security Relationship Specialty Start Date End Date Adebayo Solares MD [address] [place], [place] [phone] (Work) PCP - General Family Medicine 11/19/23 Director Of Security Relationship Specialty Start Date End Date Adebayo Solares MD [address] [place] [address] PCP - General Family Medicine 11/19/23 Director Of Security Relationship Specialty Start Date End Date Adebayo Solares MD [address] [place] [address] PCP - General Family Medicine 11/19/23 Director Of Security Relationship Specialty Start Date End Date Adebayo Solares MD [address] [place] [address] PCP - General Family Medicine 11/19/23 Director Of Security Relationship Specialty Start Date End Date Adebayo Solares MD [address] [place] [address] PCP - General Family Medicine 11/19/23 Director Of Security Relationship Specialty Start Date End Date Adebayo Solares MD [address] [place] [address] PCP - General Family Medicine 11/19/23 Director Of Security Relationship Specialty Start Date End Date Adebayo Solares MD [address] [place] [phone] (Work) PCP - General Family Medicine 11/19/23 Director Of Security Relationship Specialty Start Date End Date Adebayo Solares MD [address] [place] [address] PCP - General Family Medicine 11/19/23 Director Of Security Relationship Specialty Start Date End Date Adebayo Solares MD [address] [place] [address] PCP - General Family Medicine 11/19/23 Director Of Security Relationship Specialty Start Date End Date Adebayo Solares MD [address] [place] [address] PCP - General Family Medicine 11/19/23 Director Of Security Relationship Specialty Start Date End Date Adebayo Solares MD [address] [place] [address] PCP - General Family Medicine 11/19/23 Director Of Security Relationship Specialty Start Date End Date Adebayo Solares MD [address] [place] [address] PCP - General Family Medicine 11/19/23 Director Of Security Relationship Specialty Start Date End Date Adebayo Solares MD [address] [place] [address] PCP - General Family Medicine 11/19/23 Director Of Security Relationship Specialty Start Date End Date Adebayo Solares MD [address] [place] [address] PCP - General Family Medicine 11/19/23 Reason [...] method of control unspecified Miguel Hannon, DO [address] [place] [address] [place] [address] Phone: tel: fax: [facility] [address] [place] [address] Phone: tel: fax: Referral ID Status Reason Start Date Expiration Date Visits Requested Visits Authorized [id number] Pending Review Specialty Services Required 11/11/2024 11/11/2025 [...] BE BASED ON THE PRIMARY CLINICAL RECORDS. [facility]. provides no warranty or guarantee of the accuracy or completeness of information in this document.
[2025-01-01 00:59] LABS: Hematocrit 38.5 % (36.0-48.0); Hemoglobin 13.1 g/dL (12.0-16.0); Mean Corpuscular HGB Conc 34.0 g/dL (29.9-35.2); Mean Corpuscular Hemoglobin 28.7 pg (26.7-34.0); Mean Corpuscular Volume 84.2 fL (81.0-99.0); Platelet Count 308 10^3/uL (150-450); Red Blood Count 4.57 10^6/uL (4.20-5.40); White Blood Count 12.5 10^3/uL (4.0-11.0)
[2025-01-01] MEDS: 0.9 % SODIUM CHLORIDE 1,000 ML 125 ML IV ×4 (01:01→20:17)
[2025-01-01] MEDS: OXYTOCIN/0.9 % SODIUM CHLORIDE 10 UNITS/500 ML PLAST..BAG 6 UNIT IV (01:11)
[2025-01-01 01:13] LABS: Cannabinoid Screen Urine NEGATIVE (NEGATIVE); Methamphetamines Screen Urine NEGATIVE (NEGATIVE); Tricyclic Antidepressant Urine NEGATIVE (NEGATIVE)
[2025-01-01] MEDS: ROPIVACAINE HCL/PF 400 MG/200 ML PREMIX 10 MG EPIDURAL (12:20)
[2025-01-01] MEDS: OXYTOCIN/0.9 % SODIUM CHLORIDE 10 UNITS/500 ML PLAST..BAG 60 UNIT IV (14:14)
[2025-01-01] MEDS: CEFAZOLIN SODIUM/DEXTROSE,ISO 2 GM/50 ML PIGGYBACK IV (20:55)
[2025-01-01] MEDS: CITRIC ACID/SODIUM CITRATE 30 ML SOLUTION ORACIT SHOHL'S SOLN PO (20:57)
[2025-01-01] MEDS: FAMOTIDINE/PF 20 MG/2 ML VIAL IV (20:57)
[2025-01-01] MEDS: METOCLOPRAMIDE HCL 10 MG/2 ML VIAL IVP (20:57)
[2025-01-01] MEDS: OXYTOCIN/0.9 % SODIUM CHLORIDE 20 UNITS/1,000 ML PLAST..BAG 125 UNIT IV (21:39)
--- NOTE | 2025-01-01 21:58 | PM.ONB ---
Brief Operative Note Date of procedure: 01/01/25 Pre-op diagnosis general: iup at 37 5/7wks, gdm a2, failure to descend, failure to dilate Post-op diagnosis: same as pre-op Procedure: NAME OF PROCEDURE: [ section ] PROCEDURE: Patient was taken back to the Operating Room where she was given a spinal anesthesia with Duramorph without difficulty. She was prepped and draped in the normal sterile fashion. A Pfannenstiel skin incision was then made 2 cm above the symphysis pubis and carried down to underlying rectus fascia using a Bovie. The fascia was incised in the midline and extended laterally using Butcher scissors. Two Gricelda clamps were placed on the superior aspect of the fascia and dissected off the underlying rectus muscles. The same was performed on the inferior aspect as well. The muscles were then in the midline. Peritoneum was identified and entered bluntly. The peritoneum was then extended superiorly and inferiorly with good visualization of the bladder. The bladder blade was inserted. A low transverse incision was made on the patient's uterus and extended laterally digitally. The was then delivered atraumatically after the bladder blade was removed in the cephalic position. The cord was clamped and cut. Cord blood was obtained. The was handed off to awaiting team. The patient's placenta was spontaneously delivered. The uterus was then exteriorized. The uterus was cleared of all clots and debris. The bladder blade was reinserted. The patient's uterine incision was closed using #0 Vicryl in a running lock fashion. Excellent hemostasis was assured. The uterus was then returned to the patient's abdomen. The patient's abdomen was copiously irrigated using warm saline. Peritoneal gutters were cleared of all clots and debris. Again excellent hemostasis was assured. The patient's peritoneum was closed using 3-0 Vicryl in a running fashion. The patient's fascia was closed using #0 Vicryl in a running fashion. The patient's skin was closed using 4-0 Vicryl subcuticularly. The patient tolerated the procedure well. Sponge, lap, and needle counts were correct x2. The patient was taken to the Recovery Room in stable condition. Anesthesia: epidural Surgeon: Miguel Hannon Medical Doctor Md: Vicki Sherwood Estimated blood loss (mL): 575 Pathology: other (placenta) Condition: stable Disposition: PACU Urinary Catheter Management Urinary Catheter Management Urethral: Cath placed during this visit: no
--- NOTE | 2025-01-01 22:00 | PM.OBPRCCS ---
Procedure Pre-op/Post-op diagnoses: Pre-Op/Post-Op Diagnoses Operation Date: 01/01/25 09:15 <No data on this case meets the specified criteria> Procedure: Procedures Operation Date: 01/01/25 09:15 Actual Procedure Side Surgeon p Not Applicable Miguel Hannon DO Health Service Coordinator: Vicki Sherwood Estimated blood loss (mL): 575 Disposition: floor Anesthesia type: Epidural
[2025-01-02] VITALS (16 sets, daily range): BP systolic 115–126; BP diastolic 67–84; PULSE 66–103; TEMP 35.6–37.1; O2SAT 94–97
[2025-01-02] MEDS: CEFAZOLIN SODIUM/DEXTROSE,ISO 2 GM/50 ML PIGGYBACK IV (03:09)
[2025-01-02] MEDS: KETOROLAC TROMETHAMINE 30 MG/ML VIAL IVP ×4 (03:58→23:05)
[2025-01-02 07:41] LABS: Hematocrit 32.5 % (36.0-48.0); Hemoglobin 10.9 g/dL (12.0-16.0); Immature Granulocytes Abs Auto 0.06 10^3/uL (0.00-0.03); Immature Granulocytes Pct Auto 0.4 % (0.0-0.5); Lymphocytes Absolute Auto 1.8 10^3/uL (1.2-3.8); Mean Corpuscular HGB Conc 33.5 g/dL (29.9-35.2); Mean Corpuscular Hemoglobin 28.5 pg (26.7-34.0); Mean Corpuscular Volume 85.1 fL (81.0-99.0); Platelet Count 273 10^3/uL (150-450); Red Blood Count 3.82 10^6/uL (4.20-5.40); White Blood Count 16.0 10^3/uL (4.0-11.0)
[2025-01-02] MEDS: ACETAMINOPHEN 500 MG TABLET 1000 MG PO ×2 (08:50→17:08)
[2025-01-02] MEDS: DOCUSATE SODIUM 100 MG CAPSULE PO ×2 (08:51→21:39)
--- NOTE | 2025-01-02 09:44 | PM.OBPN ---
OB - PN: Subj Subjective Patient comments: no complaints and pain well controlled [place] status: doing well Exam Constitutional Vital Signs, click to edit/add: Last Vital Signs Temp 97.8 F 01/02/25 09:03 Pulse 66 01/02/25 08:54 Resp 16 01/02/25 08:58 BP 122/76 01/02/25 08:54 Pulse Ox 96 01/02/25 03:50 O2 Del Method Room Air 01/02/25 04:00 Documenting provider has reviewed patient's vital signs: yes Common normals: no apparent distress Respiratory Common normals: normal respiratory effort and clear to auscultation bilaterally Cardio Common normals: regular rate and regular rhythm GI Common normals: Normal to inspection, nondistended, normoactive bowel sounds present Extremity Common normals: no clubbing, cyanosis or edema and no calf tenderness Results Labs Labs: Short CBC 01/02/25 Range/Units 07:29 WBC 16.0 H (4.0-11.0) 10^3/uL Hgb 10.9 L (12.0-16.0) g/dL Hct 32.5 L (36.0-48.0) % Plt Count 273 (150-450) 10^3/uL Urinary Catheter Management Urinary Catheter Management Urethral: Cath placed during this visit: yes, but has since been removed by the nurse Removal date: 01/02/25 Removal time: 09:05 OB - PN: A/P Plan - day: 1 Plan: routine postop care Time Spent with Patient Time: Total time spent is greater than 50% in coordination of care (as documented) at patient's floor/unit and/or counseling patient: Total time spent with greater than 50% in coordination of care (as documented) at patient's floor/unit and/or counseling patient: less than 15 minutes
[2025-01-02] MEDS: PANTOPRAZOLE SODIUM 40 MG TABLET.DR PO (10:19)
[2025-01-02] MEDS: ENOXAPARIN SODIUM 40 MG/0.4 ML SYRINGE SUBQ (10:19)
[2025-01-02] MEDS: OXYCODONE HCL/ACETAMINOPHEN 5MG/325MG 2 TAB PO (13:46)
--- NOTE | 2025-01-02 17:26 | PC.NURSE ---
1346Eve Chaevz RN at bedside with patient and witnesses Yennifer Peñaloza LPN administer 2 tablets of Percocet per MAR. See edit to assessment d/t number of tablets administration error scanned.
--- NOTE | 2025-01-02 18:43 | PC.NURSE ---
Charting completed by Yennifer Peñaloza RN reveiwed by this RN and agrees with assessments.
[2025-01-03 00:51] VITALS: BP 116/63; PULSE 89; TEMP 36.7
[2025-01-03] MEDS: KETOROLAC TROMETHAMINE 30 MG/ML VIAL IVP ×3 (05:11→20:56)
[2025-01-03] MEDS: OXYCODONE HCL/ACETAMINOPHEN 5MG/325MG 1 TAB PO (05:11)
[2025-01-03] MEDS: SIMETHICONE 80 MG TAB.CHEW PO (05:11)
[2025-01-03 08:09] VITALS: BP 126/82; PULSE 72
[2025-01-03 08:30] VITALS: PULSE 72; TEMP 36.7
[2025-01-03] MEDS: ACETAMINOPHEN 500 MG TABLET 1000 MG PO ×2 (08:49→17:20)
[2025-01-03] MEDS: DOCUSATE SODIUM 100 MG CAPSULE PO ×2 (08:50→20:56)
[2025-01-03] MEDS: PANTOPRAZOLE SODIUM 40 MG TABLET.DR PO (08:51)
--- NOTE | 2025-01-03 09:44 | P.OBPN_ITS ---
OB - PN: Subj Subjective Patient comments: no complaints and pain well controlled [place] status: doing well Exam Constitutional Vital Signs, click to edit/add: Last Vital Signs Temp 98.1 F 01/03/25 08:30 Pulse 72 01/03/25 08:30 Resp 16 01/03/25 08:30 BP 126/82 01/03/25 08:09 Pulse Ox 96 01/02/25 03:50 O2 Del Method Room Air 01/03/25 08:30 Documenting provider has reviewed patient's vital signs: yes Common normals: no apparent distress Respiratory Common normals: normal respiratory effort and clear to auscultation bilaterally Cardio Common normals: regular rate and regular rhythm GI Common normals: Normal to inspection, nondistended, normoactive bowel sounds present Extremity Common normals: no clubbing, cyanosis or edema and no calf tenderness Urinary Catheter Management Urinary Catheter Management Urethral: Cath placed during this visit: yes, but has since been removed by the nurse Removal date: 01/02/25 Removal time: 09:05 OB - PN: A/P Plan - day: 2 Plan: routine postop care Time Spent with Patient Time: Total time spent is greater than 50% in coordination of care (as documented) at patient's floor/unit and/or counseling patient: Total time spent with greater than 50% in coordination of care (as documented) at patient's floor/unit and/or counseling patient: less than 15 minutes
[2025-01-03] MEDS: ENOXAPARIN SODIUM 40 MG/0.4 ML SYRINGE SUBQ (10:45)
[2025-01-03 16:49] VITALS: BP 117/74; PULSE 87; TEMP 36.4
[2025-01-04 00:37] VITALS: BP 138/63; PULSE 101; TEMP 36.6
[2025-01-04] MEDS: SIMETHICONE 80 MG TAB.CHEW PO ×3 (00:39→08:35)
[2025-01-04] MEDS: IBUPROFEN 400 MG TABLET 800 MG PO ×2 (04:13→13:28)
[2025-01-04] MEDS: ACETAMINOPHEN 500 MG TABLET 1000 MG PO (05:33)
--- NOTE | 2025-01-04 06:11 | P.OBPN_ITS ---
OB - PN: Subj Subjective Patient comments: no complaints and pain well controlled [place] status: doing well Exam Constitutional Vital Signs, click to edit/add: Last Vital Signs Temp 97.9 F 01/04/25 00:37 Pulse 101 H 01/04/25 00:37 Resp 16 01/04/25 00:45 BP 138/63 01/04/25 00:37 Pulse Ox 96 01/02/25 03:50 O2 Del Method Room Air 01/04/25 00:45 Documenting provider has reviewed patient's vital signs: yes Common normals: no apparent distress Respiratory Common normals: normal respiratory effort and clear to auscultation bilaterally Cardio Common normals: regular rate and regular rhythm GI Common normals: Normal to inspection, nondistended, normoactive bowel sounds present Extremity Common normals: no clubbing, cyanosis or edema and no calf tenderness Urinary Catheter Management Urinary Catheter Management Urethral: Cath placed during this visit: yes, but has since been removed by the nurse Removal date: 01/02/25 Removal time: 09:05 OB - PN: A/P Plan - day: 3 Plan: routine postop care, discharge home and other (fu 1wk) Time Spent with Patient Time: Total time spent is greater than 50% in coordination of care (as documented) at patient's floor/unit and/or counseling patient: Total time spent with greater than 50% in coordination of care (as documented) at patient's floor/unit and/or counseling patient: less than 15 minutes
[2025-01-04 08:23] VITALS: BP 126/86; PULSE 90
[2025-01-04 08:25] VITALS: TEMP 37.2
[2025-01-04] MEDS: DOCUSATE SODIUM 100 MG CAPSULE PO (08:36)
[2025-01-04] MEDS: PANTOPRAZOLE SODIUM 40 MG TABLET.DR PO (08:36)
[2025-01-04] MEDS: OXYCODONE HCL/ACETAMINOPHEN 5MG/325MG 1 TAB PO ×2 (10:30→14:39)
[2025-01-04] MEDS: ENOXAPARIN SODIUM 40 MG/0.4 ML SYRINGE SUBQ (11:18)
[2025-01-04] MEDS: DIPHTH,PERTUSS(ACELL),TET VAC 0.5 ML SYRINGE IM (14:39)
== END 2025-01-04 15:10 | disposition home or self-care (01) | DRG 788 ==
PROVIDERS: Admitting Provider Obstetrics & Gynecology; PCP Family Medicine; Visit Provider Obstetrics & Gynecology
PROC: 10D00Z1 Extraction of Products of Conception, Low, Open Approach (ICD-10-PCS; CPT 59514; principal; 2025-01-01 09:15)
DX: O24.424 Gestational diabetes mellitus in childbirth, insulin controlled (principal); O62.0 Primary inadequate contractions; O32.4XX0 Maternal care for high head at term, not applicable or unspecified; Z3A.37 37 weeks gestation of pregnancy; Z37.0 Single live birth
CPT/HCPCS: 36415; 51702; 59050; 80307; 82948; 85025; 85027; 86850; 86900; 86901; 90715; 94667; 94668; J0690; J1100; J1650; J1885; J2274; J2371; J2405; J2590; J2765; J2795; J3010; J3490